=== PATIENT | male | born 1940 | race Caucasian/White ===

== ENCOUNTER 2017-12-04 08:07 | Observation (INO) | payer OTHER ==
[2017-12-04] MEDS ORDERED: BENZONATATE 100 MG CAP PO ONE (09:01)
[2017-12-04] MEDS ORDERED: LEVALBUTEROL 1.25 MG/3 ML NEB ONE (09:02)
[2017-12-04 09:05] LABS: Absolute Lymphocytes (CBC) 0.9 K/uL (0.7-4.9); Absolute Neutrophil 8.6 K/uL (1.8-8.0); Basophils % 0.8 % (0-1.3); Eosinophils % 0.6 % (0-4.4); Hematocrit 45.6 % (39.6-49.0); Lymphocytes % 8.1 % (15.3-44.8); MCH 30.2 pg (27.0-35.0); MCV 87.6 fL (80-100); MPV 9.2 fL (7.6-11.3); Monocytes % 9.7 % (3.3-12.3); RBC Red Blood Cell Count 5.21 M/uL (4.33-5.43)
[2017-12-04 09:08] LABS: Protime INR 1.11
[2017-12-04 09:34] LABS: ALT/SGPT 22 U/L (12-78); AST/SGOT 14 U/L (15-37); Albumin 3.6 g/dL (3.4-5.0); Alkaline Phosphatase 83 U/L (45-117); BUN Blood Urea Nitrogen 25 mg/dL (7-18); Bicarbonate 30 mmol/L (21-32); Bilirubin Direct 0.4 mg/dL (0-0.2); Bilirubin Total 0.9 mg/dL (0.2-1.0); Glucose Level 213 mg/dL (74-106); Magnesium 2.3 mg/dL (1.8-2.4); NT PRO-BNP 215 pg/mL (<450); Potassium 4.5 mmol/L (3.5-5.1); Protein, Total 8.2 g/dL (6.4-8.2); Sodium Level 137 mmol/L (136-145); Troponin (Emerg Dept Use Only) < 0.02 ng/mL (0.0-0.045)
--- NOTE | 2017-12-04 09:57 | RAD REPORT ---
EXAM DESCRIPTION: RAD - Chest Single View - 12/04/2017 9:25 am CLINICAL HISTORY: Chest pain, cough, shortness of breath COMPARISON: May 03 TECHNIQUE: AP portable chest image was obtained 0919 hours . FINDINGS: Lung volumes are low and large body habitus combined to limit the examination. Medial righ t base opacification is present questionable for developing right lung base pneumonia. This could be further evaluated with a PA view with improved inspiratory effort. Heart size and vasculature accentuated by body habitus and shallow inspiration affects. Significant failure or volume overload are doubtful. No measurable pleural effusion and no pneumothorax. No acute bony abnormality seen. No acute aortic findings suspected. IMPRESSION: Medial right base pneumonia versus shallow inspiration artifact. Correlation can be made with exam findings and follow-up PA view with improved inspiratory effort as warranted.
[2017-12-04] MEDS ORDERED: predniSONE 20 MG TAB ONE (10:19)
--- NOTE | 2017-12-04 11:19 | EDPHYS ---
Physician Documentation [facility] Name: Erika Sharif Age: 77 yrs Sex: Male : 1940 Arrival Date: 12/04/2017 Time: 08:10 Bed 16 Private MD: Out, [facility] ED Physician Antione Villegas HPI: 12/04 11:18 This 77 yrs old Male presents to ER via Wheelchair with complaints of kdr Breathing Difficulty. 11:18 The patient has shortness of breath at rest, with light activity. Onset: The kdr symptoms/episode began/occurred gradually, yesterday. Duration: The symptoms are continuous, and are steadily getting worse. The patient's shortness of breath is aggravated by coughing, exertion, light activity, supine position, talking, walking. Associated signs and symptoms: Pertinent positives: chest pain, non-productive cough, Pertinent negatives: dizziness, fever, hemoptysis, loss of consciousness, nausea, numbness in extremities, visual changes. Severity of symptoms: At their worst the symptoms were moderate severe just prior to arrival, in the emergency department the symptoms are unchanged. The patient has experienced similar episodes in the past, multiple times. The patient has not recently seen a physician. Historical: - Allergies: 08:27 Zolpidem; iw - Home Meds: 08:27 allopurinol 100 mg Oral tab 1 tab once daily [Active]; aspirin 81 mg Oral chew 1 tab iw once daily [Active]; atorvastatin 10 mg Oral tab 1 tab once daily [Active]; beclomethasone dipropionate inhalation 2 puffs 2 times per day [Active]; Colcrys 0.6 mg Oral tab 1 tab once daily [Active]; enalapril maleate 10 mg Oral tab 1 tab once daily [Active]; erythromycin 5 mg/gram (0.5 %) Opht oint 0.5 in once daily [Active]; esomeprazole magnesium 20 mg Oral cpDR 1 cap once daily [Active]; fluticasone 50 mcg/actuation nasal spsn 2 sprays once daily [Active]; furosemide 80 mg Oral tab 1 tab 2 times per day [Active]; hydrocodone-acetaminophen 10-325 mg Oral tab 1 tab every 8 hours as needed for pain [Active]; Insulin Glargine 100 unit/mL Sub-Q 50 unit daily [Active]; insulin lispro 00 unit/mL subcutaneous 30 unit daily [Active]; ipratropium-albuterol 0.5 mg-3 mg(2.5 mg base)/3 mL Inhl nebu 1 puff 4 times per day [Active]; ketoconazole 2 % Topical sham 2 times per wk [Active]; Lyrica 75 mg Oral 1 cap 3 times per day [Active]; metoprolol tartrate 50 mg Oral tab 1 tab 2 times per day [Active]; montelukast 10 mg Oral tab 1 tab once daily [Active]; nitroglycerin 0.4 mg SL subl 1 tab every 5 minutes for Angina [Active]; tamsulosin 0.4 mg Oral cp24 1 cap once daily [Active]; - PMHx: 08: COPD; Diabetes - IDDM; Myocardial infarction; neuropathy; pleural effusion; iw - PSHx: 08: Cholecystectomy; back; right shoulder; left arm; Heart stents; iw - Immunization history:: Adult Immunizations up to date. - Social history:: Smoking status: Patient/guardian denies using tobacco, the patient reports quitting approximately 50 years ago. - Ebola Screening: : Patient negative for fever greater than or equal to 101.5 degrees Fahrenheit, and additional compatible Ebola Virus Disease symptoms Patient denies exposure to infectious person Patient denies travel to an Ebola-affected area in the 21 days before illness onset No symptoms or risks identified at this time. ROS: 11:18 Constitutional: Negative for fever, chills, and weight loss, Eyes: Negative for injury, kdr pain, redness, and discharge, ENT: Negative for injury, pain, and discharge, Neck: Negative for injury, pain, and swelling, Abdomen/GI: Negative for abdominal pain, nausea, vomiting, diarrhea, and constipation, Back: Negative for injury and pain, : Negative for injury, bleeding, discharge, and swelling, MS/Extremity: Negative for injury and deformity, Skin: Negative for injury, rash, and discoloration, Neuro: Negative for headache, weakness, numbness, tingling, and seizure activity. Psych: Negative for depression, anxiety, suicide ideation, homicidal ideation, and hallucinations, Allergy/Immunology: Negative for hives, rash, and allergies, Endocrine: Negative for neck swelling, polydipsia, polyuria, polyphagia, and marked weight changes, Hematologic/Lymphatic: Negative for swollen nodes, abnormal bleeding, and unusual bruising. 11:18 Cardiovascular: Positive for chest pain, edema, Negative for orthopnea, palpitations, paroxysmal nocturnal dyspnea. 11:18 Respiratory: Positive for cough, dyspnea on exertion, shortness of breath, wheezing. Exam: 11:18 Constitutional: This is a well developed, well nourished patient who is awake, alert, kdr and in mild to moderate distress. Head/Face: Normocephalic, atraumatic. Eyes: Pupils equal round and reactive to light, extra-ocular motions intact. Lids and lashes normal. Conjunctiva and sclera are non-icteric and not injected. Cornea within normal limits. Periorbital areas with no swelling, redness, or edema. Neck: Trachea midline, no thyromegaly or masses palpated, and no cervical lymphadenopathy. Supple, full range of motion without nuchal rigidity, or vertebral point tenderness. No Meningismus. Chest/axilla: Normal chest wall appearance and motion. Nontender with no deformity. No lesions are appreciated. Abdomen/GI: Soft, non-tender, with normal bowel sounds. Obese but no distension or tympany. No guarding or rebound. Back: No spinal tenderness. No costovertebral tenderness. Full range of motion. Skin: Warm, dry with normal turgor. Normal color with no rashes, no lesions, and no evidence of cellulitis. MS/ Extremity: Pulses equal, no cyanosis. Neurovascular intact. Full, normal range of motion. Neuro: Awake and alert, GCS 15, oriented to person, place, time, and situation. Cranial nerves II-XII grossly intact. Motor strength 5/5 in all extremities. Sensory grossly intact. Cerebellar exam normal. Normal gait. 11:18 Cardiovascular: Rate: tachycardic, Rhythm: regular, Pulses: Vital Signs: 08:27 BP 155 / 96; Pulse 93; Resp 22 S; Temp 98.2(O); Pulse Ox 95% on R/A; Weight 150.59 kg; iw Height 5 ft. 9 in. (175.26 cm); Pain 8/10; 09:00 BP 167 / 88; Pulse 92; Resp 28; Pulse Ox 97% ; bp 09:51 BP 143 / 86; Pulse 104; Resp 22; Pulse Ox 95% on R/A; bp 10:45 BP 137 / 73; Pulse 104; Resp 23; Pulse Ox 95% on R/A; bp 12:00 BP 147 / 53; Pulse 103; Resp 25; Pulse Ox 93% on R/A; bp 08:27 Body Mass Index 49.03 (150.59 kg, 175.26 cm) iw MDM: 11:18 Patient medically screened. kdr 11:26 Data reviewed: vital signs, nurses notes, lab test result(s), radiologic studies. kdr Counseling: I had a detailed discussion with the patient and/or guardian regarding: the historical points, exam findings, and any diagnostic results supporting the discharge/admit diagnosis, lab results, radiology results, the need for further work-up and treatment in the hospital. 12/04 08:37 Order name: Basic Metabolic Panel; Complete Time: 09:59 kdr 12/04 08:37 Order name: CBC with Diff; Complete Time: 09:59 kdr 12/04 08:37 Order name: LFT's; Complete Time: 09:59 kdr 12/04 08:37 Order name: Magnesium; Complete Time: 09:59 kdr 12/04 08:37 Order name: NT PRO-BNP; Complete Time: 09:59 kdr 12/04 08:37 Order name: PT-INR; Complete Time: 09:59 kdr 12/04 08:37 Order name: Troponin (emerg Dept Use Only); Complete Time: 09:59 kdr 12/04 08:37 Order name: XRAY Chest (1 view); Complete Time: 09:59 kdr 12/04 08:37 Order name: EKG; Complete Time: 08:38 kdr 12/04 08:37 Order name: Cardiac monitoring; Complete Time: 08:47 kdr 12/04 08:37 Order name: EKG - Nurse/Tech; Complete Time: 08:47 kdr 12/04 08:37 Order name: IV Saline Lock; Complete Time: 08:47 kdr 12/04 08:37 Order name: Labs collected and sent; Complete Time: 08:47 kdr 12/04 08:37 Order name: O2 Per Protocol; Complete Time: 08:47 kdr 12/04 08:37 Order name: O2 Sat Monitoring; Complete Time: 08:47 kdr 12/04 10:01 Order name: Misc. Order: Document oxygen saturation while off oxygen while minor kdr exertion; Complete Time: 10:25 Administered Medications: 08:50 Drug: Xopenex (3) 1.25 mg Route: Inhalation; bp 08:50 Drug: Tessalon Perle 200 mg Route: PO; bp 09:51 Follow up: Response: Marked relief of symptoms bp 10:11 CANCELLED (Physician Discretion): SOLU-Medrol 125 mg IVP once bp 10:15 Drug: predniSONE 60 mg Route: PO; bp 10:46 Follow up: Response: No adverse reaction bp 11:20 Drug: Rocephin - (cefTRIAXone) 2 grams Route: IVPB; Infused Over: 30 mins; Site: right bp antecubital; 12:45 Follow up: IV Status: Completed infusion; IV Intake: 100ml bp Disposition: 12/04/17 11:18 Hospitalization ordered by Emi Bradshaw for Observation. Preliminary diagnosis is COPD Exacerbation, SOB, Pneumonia, DM, CAD. - Bed requested for Telemetry/MedSurg (observation). - Status is Observation. iw - Condition is Fair. - Problem is an acute exacerbation. - Symptoms have improved. UTI on Admission? No Signatures: Dispatcher [employer] EDWI Althea Duke RN RN dw Antione Villegas MD MD kdr Pam Tiwari RN RN iw Francis Orta RN RN bp Corrections: (The following items were deleted from the chart) 10:11 10:03 SOLU-Medrol 125 mg IVP once ordered. kdr bp 12:33 11:18 Hospitalization Ordered by Emi Bradshaw MD for Observation. Preliminary dw diagnosis is COPD Exacerbation, SOB, Pneumonia, DM, CAD. Bed requested for Telemetry/MedSurg (observation). Status is Observation. Condition is Fair. Problem is an acute exacerbation. Symptoms have improved. UTI on Admission? No. kdr 13:25 12:33 12/04/2017 11:18 Hospitalization Ordered by Emi Bradshaw MD for Observation. iw Preliminary diagnosis is COPD Exacerbation, SOB, Pneumonia, DM, CAD. Bed requested for Telemetry/MedSurg (observation). Status is Observation. Condition is Fair. Problem is an acute exacerbation. Symptoms have improved. UTI on Admission? No. dw
--- NOTE | 2017-12-04 11:19 | ER ---
Nurse's Notes [facility] Name: Erika Sharif Age: 77 yrs Sex: Male : 1940 Arrival Date: 12/04/2017 Time: 08:10 Bed 16 Private MD: Out, of [facility], [facility] Diagnosis: COPD Exacerbation, SOB, Pneumonia, DM, CAD Presentation: 12/04 08:23 Presenting complaint: Patient states: c/o difficulty breathing that started last night, iw hx of COPD, also c/o chest tightness 10/02, headache X 2 weeks, denies fever, +dry cough. Transition of care: patient was not received from another setting of care. Onset of symptoms was December 03, 2017. Risk Assessment: Do you want to hurt yourself or someone else? Patient reports no desire to harm self or others. Initial Sepsis Screen: Does the patient meet any 2 criteria? No. Patient's initial sepsis screen is negative. Does the patient have a suspected source of infection? No. Patient's initial sepsis screen is negative. Care prior to arrival: None. 08:23 Method Of Arrival: Wheelchair iw 08:23 Acuity: PEEWEE 3 iw Triage Assessment: 12:43 General: Appears in no apparent distress. comfortable, obese, Behavior is calm, bp cooperative, appropriate for age. Respiratory: Reports shortness of breath Onset: The symptoms/episode began/occurred 2 DAYS, the patient has moderate shortness of breath. Historical: - Allergies: 08:27 Zolpidem; iw - Home Meds: 08:27 allopurinol 100 mg Oral tab 1 tab once daily [Active]; aspirin 81 mg Oral chew 1 tab iw once daily [Active]; atorvastatin 10 mg Oral tab 1 tab once daily [Active]; beclomethasone dipropionate inhalation 2 puffs 2 times per day [Active]; Colcrys 0.6 mg Oral tab 1 tab once daily [Active]; enalapril maleate 10 mg Oral tab 1 tab once daily [Active]; erythromycin 5 mg/gram (0.5 %) Opht oint 0.5 in once daily [Active]; esomeprazole magnesium 20 mg Oral cpDR 1 cap once daily [Active]; fluticasone 50 mcg/actuation nasal spsn 2 sprays once daily [Active]; furosemide 80 mg Oral tab 1 tab 2 times per day [Active]; hydrocodone-acetaminophen 10-325 mg Oral tab 1 tab every 8 hours as needed for pain [Active]; Insulin Glargine 100 unit/mL Sub-Q 50 unit daily [Active]; insulin lispro 00 unit/mL subcutaneous 30 unit daily [Active]; ipratropium-albuterol 0.5 mg-3 mg(2.5 mg base)/3 mL Inhl nebu 1 puff 4 times per day [Active]; ketoconazole 2 % Topical sham 2 times per wk [Active]; Lyrica 75 mg Oral 1 cap 3 times per day [Active]; metoprolol tartrate 50 mg Oral tab 1 tab 2 times per day [Active]; montelukast 10 mg Oral tab 1 tab once daily [Active]; nitroglycerin 0.4 mg SL subl 1 tab every 5 minutes for Angina [Active]; tamsulosin 0.4 mg Oral cp24 1 cap once daily [Active]; - PMHx: 08:27 COPD; Diabetes - IDDM; Myocardial infarction; neuropathy; pleural effusion; iw - PSHx: 08:27 Cholecystectomy; back; right shoulder; left arm; Heart stents; iw - Immunization history:: Adult Immunizations up to date. - Social history:: Smoking status: Patient/guardian denies using tobacco, the patient reports quitting approximately 50 years ago. - Ebola Screening: : Patient negative for fever greater than or equal to 101.5 degrees Fahrenheit, and additional compatible Ebola Virus Disease symptoms Patient denies exposure to infectious person Patient denies travel to an Ebola-affected area in the 21 days before illness onset No symptoms or risks identified at this time. Screenin:48 Abuse screen: Denies threats or abuse. Denies injuries from another. Nutritional bp screening: No deficits noted. Tuberculosis screening: No symptoms or risk factors identified. Fall Risk No fall in past 12 months (0 pts). Secondary diagnosis (15 points) impaired mobility, IV access (20 points). Ambulatory Aid- Crutches/Cane/Walker (15 pts). Gait- Normal/Bed Rest/Wheelchair (0 pts) Mental Status- Oriented to own ability (0 pts). Total Payne Fall Scale indicates High Risk Score (45 or more points). Fall prevention measures have been instituted. Side Rails Up X 2 Placed Close to Nursing Station Frequent Obs/Assessments Occuring Family Present and informed to notify staff if the need to leave the bedside As available patient and family educated on Fall Prevention Program and Strategies. Assessment: 08:30 General: Appears distressed, comfortable, obese, Behavior is calm, cooperative, bp appropriate for age. Pain: Denies pain. Cardiovascular: Rhythm is sinus rhythm. Respiratory: Airway is patent Respiratory effort is even, labored, Breath sounds with wheezes. 09:52 Reassessment: ALL CURRENT ORDERS COMPLETED, RESULTS PENDING. bp 10:26 Reassessment: ROOM AIR SAT 92% WITH MILD EXERTION. bp Vital Signs: 08:27 BP 155 / 96; Pulse 93; Resp 22 S; Temp 98.2(O); Pulse Ox 95% on R/A; Weight 150.59 kg; iw Height 5 ft. 9 in. (175.26 cm); Pain 8/10; 09:00 BP 167 / 88; Pulse 92; Resp 28; Pulse Ox 97% ; bp 09:51 BP 143 / 86; Pulse 104; Resp 22; Pulse Ox 95% on R/A; bp 10:45 BP 137 / 73; Pulse 104; Resp 23; Pulse Ox 95% on R/A; bp 12:00 BP 147 / 53; Pulse 103; Resp 25; Pulse Ox 93% on R/A; bp 08:27 Body Mass Index 49.03 (150.59 kg, 175.26 cm) iw ED Course: 08:10 Patient arrived in ED. mr 08:10 Out, [facility] is Private Physician. mr 08:15 Francis Orta, RN is Primary Nurse. bp 08:18 Antione Villegas MD is Attending Physician. kdr 08:24 Triage completed. iw 08:27 Arm band placed on. iw 08:44 EKG done, by geotechnicial properties technician. reviewed by Antione Villegas MD. at1 08:48 Inserted saline lock: 20 gauge in right antecubital area, using aseptic technique. bp Blood collected. 08:49 Patient has correct armband on for positive identification. Bed in low position. Call bp light in reach. Side rails up X2. Adult w/ patient. 09:22 X-ray completed. Portable x-ray completed in exam room. Patient tolerated procedure mh1 well. 09:25 XRAY Chest (1 view) In Process Unspecified. EDMS 11:17 Emi Bradshaw MD is Hospitalizing Provider. kdr 12:42 No provider procedures requiring assistance completed. Patient admitted, IV remains in bp place. Administered Medications: 08:50 Drug: Xopenex (3) 1.25 mg Route: Inhalation; bp 08:50 Drug: Tessalon Perle 200 mg Route: PO; bp 09:51 Follow up: Response: Marked relief of symptoms bp 10:11 CANCELLED (Physician Discretion): SOLU-Medrol 125 mg IVP once bp 10:15 Drug: predniSONE 60 mg Route: PO; bp 10:46 Follow up: Response: No adverse reaction bp 11:20 Drug: Rocephin - (cefTRIAXone) 2 grams Route: IVPB; Infused Over: 30 mins; Site: right bp antecubital; 12:45 Follow up: IV Status: Completed infusion; IV Intake: 100ml bp Intake: 12:45 IV: 100ml; Total: 100ml. bp Outcome: 11:18 Decision to Hospitalize by Provider. kdr 12:43 Condition: stable bp 12:43 Instructed on the need for admit. 12:51 Admitted to Med/surg accompanied by matthew, family with patient, via wheelchair, room bp 419, with chart, Report called to MAUREEN MCCLURE 13:25 Patient left the ED. iw Signatures: Dispatcher [employer] EDMS Antione Villegas MD MD [facility] Mackenzie Callaway mr AlexanderSusie 1 Pam Tiwari, RN RN iw Alice Garibay, echocardiography tech EKG Tat1 Francis Orta RN RN bp
[2017-12-04] MEDS ORDERED: NA CHLORIDE 0.9% 100 ML IV ONE (11:27)
[2017-12-04] MEDS ORDERED: CEFTRIAXONE 1000 MG/VIAL ONE (11:27)
[2017-12-04 13:27] VITALS: BMI 49.9
[2017-12-04] MEDS ORDERED: INSULIN -REGULAR HUMAN 50 UNIT/0.5 ML ML SQ SCH (13:30)
[2017-12-04] MEDS: ALBUTEROL 2.5 MG/3 ML NEB SOL NEB SCH ×2 (14:18→19:54)
[2017-12-04] MEDS: IPRATROPIUM BROM 0.5MG/2.5ML NEB SCH ×2 (14:18→19:54)
--- NOTE | 2017-12-04 14:28 | EKG ---
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
--- NOTE | 2017-12-04 15:16 | P.HP ---
Certification for Inpatient Patient admitted to: Observation With expected LOS: <2 Midnights Patient will require the following post-hospital care: None Practitioner: I am a practitioner with admitting privileges, knowledge of patient current condition, hospital course, and medical plan of care. Services: Services provided to patient in accordance with Admission requirements found in Title 42 Section 412.3 of the Code of Federal Regulations Patient History Date of Service: 12/04/17 Primary Care Provider: REY Patrick Reason for admission: SOB History of Present Illness: This is a 77-year-old male with significant past medical history of COPD, CHF, hypertension, type 2 diabetes, obesity, obstructive sleep apnea, hyperlipidemia , CAD, who presented to the ED complaining of having some shortness of breath. Patient stated that his shortness of breath has been going on for a couple of these has been getting progressively worse and thus decided to come to the ER. Patient states that yesterday around 3:00 a.m. he got oral short of breath and was having trouble breathing and catching his breath and thus he decided to come to the ER today to get a further checked out. Patient states that he does use inhalers at home along with home oxygen which usually helps some with the bleeding but this time it did not help him at all. Of note patient also had some productive coughing before now however is dry cough for past couple of days. Patient denies having any fever chills nausea vomiting abdominal pain chest pain or any other associated symptoms at this time. Allergies zolpidem [Zolpidem] Allergy (Verified 05/03/17 20:31) Delusions Home Medications: Allopurinol [Zyloprim*] 1 tab PO DAILY 01/17/15 Aspirin [Aspirin EC 81 MG] 81 mg PO DAILY 01/17/15 Atorvastatin Calcium [Lipitor*] 40 mg PO BEDTIME 01/17/15 Colchicine [Colcrys] 1 tab PO DAILY PRN 01/17/15 Enalapril Maleate [Vasotec] 1 tab PO DAILY 01/17/15 Esomeprazole Magnesium [Nexium] 20 mg PO DAILY 01/17/15 Furosemide [Lasix] 1 tab PO BID 01/17/15 Insulin Glargine,Hum.rec.anlog [Lantus] 50 unit SQ BEDTIME 01/17/15 Insulin Lispro [Humalog Kwikpen U-100] 30 unit SQ AC 01/17/15 Metoprolol Tartrate [Lopressor] 1 tab PO BID 01/17/15 Montelukast Sodium 1 tab PO DAILY 01/17/15 Pregabalin [Lyrica*] 1 cap PO TID 01/17/15 Tamsulosin HCl [Flomax] 1 cap PO DAILY 01/17/15 Beclomethasone Dipropionate [Qvar] 2 puff IH BID 05/04/17 Erythromycin Opth [Erythromycin Eye Ointment*] 1 leatha OPTH DAILY 05/04/17 Fluticasone [Flonase 50MCG Nasal [place]*] 2 puff DOMENICO DAILY 05/04/17 Hydrocodone Bit/Acetaminophen [Hydrocodon-Acetaminophn 10-325] 1 tab PO TID PRN 05/04/17 Ipratropium/Albuterol Sulfate [Iprat-Albut 0.5-3(2.5) mg/3 ml] 1 puff IH QID 02/09 Nitroglycerin 0.4 mg SL SEECOM PRN 05/04/17 - Past Medical/Surgical History Has patient received pneumonia vaccine in the past: Yes Diabetic: Yes -: Gout, skin cancer -: [place] disease, COPD, asthma, High cholesterol. -: HYPERLIPIDEMIA -: CKD - STAGE IV -: SPINAL STENOSIS -: GOUT -: OBSTRUCTIVE SLEEP APNEA -: [place] -: NEUROPATHY -: ASTHMA -: HTN -: CHF -: cardiac Stent x 3 -: Operation lower back -: Left Hand nerve damage -: skin Cancer removal back and neck -: Left arm surgery -: hernia repair -: Cholecystectomy - Family History Father -: Heart disease Notes: [place] Mother -: Heart disease, Hypertension Notes: bypass Brother -: Heart disease Notes: 4X BYPASS - Social History Smoking Status: Former smoker Alcohol use: No CD- Drugs: No Caffeine use: Yes Place of Residence: Home Review of Systems 10-point ROS is otherwise unremarkable Physical Examination - Vital Signs Temperature: 100.3 F Blood Pressure: 144/63 Pulse: 95 Respirations: 20 Pulse Ox (%): 96 - Physical Exam General: Alert, In no apparent distress HEENT: Atraumatic, PERRLA, Mucous membr. moist/pink, EOMI, Sclerae nonicteric Neck: Supple, 2+ carotid pulse no bruit, No LAD, Without JVD or thyroid abnormality Respiratory: Normal air movement, Crackles/rales, Expiratory wheezes, Inspiratory wheezes Cardiovascular: Regular rate/rhythm, Normal S1 S2 Gastrointestinal: Normal bowel sounds, No tenderness Musculoskeletal: No tenderness Integumentary: No rashes Neurological: Normal speech, Normal strength at 5/5 x4 extr, Normal tone Lymphatics: No axilla or inguinal lymphadenopathy - Studies Laboratory Data (last 24 hrs) 12/04/17 08:45: PT 13.1 H, INR 1.11 12/04/17 08:45: WBC 10.6, Hgb 15.7, Hct 45.6, Plt Count 180 12/04/17 08:45: Sodium 137, Potassium 4.5, BUN 25 H, Creatinine 1.80 H, Glucose 213 H, Magnesium 2.3, Total Bilirubin 0.9, AST 14 L, ALT 22, Alkaline Phosphatase 83 Assessment and Plan - Problems (Diagnosis) (1) COPD exacerbation Onset Date: 01/17/15 Current Visit: No Status: Acute Plan: Dyspnea with acute COPD exacerbation possible CHF exacerbation as well -duonebs, steroids, oxygen therapy. Will wean as tolerated. 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 Started on IV Lasix at this time -fluid restriction and diet modification notified as well -echo done in April of 2017 consistent with EF of 79% and left atrial dilation Qualifiers: Heart failure type: diastolic Heart failure chronicity: acute on chronic Qualified Code(s): I50.33 - Acute on chronic diastolic (congestive) heart failure (3) CAD (coronary artery disease) Onset Date: 05/04/17 Current Visit: No Status: Chronic Plan: Stable at this time. Will restart home medication Qualifiers: Coronary Disease-Associated Artery/Lesion type: [place] artery [place] vs. transplanted heart: [place] heart Associated angina: without angina Qualified Code(s): I25.10 - Atherosclerotic heart disease of [place] coronary artery without angina pectoris (4) Chronic kidney disease Onset Date: 08/04/16 Current Visit: No Status: Chronic Plan: Chronic kidney disease with acute injury -will continue to monitor closely -avoid nephrotoxic agent Qualifiers: Chronic kidney disease stage: stage 4 (severe) Qualified Code(s): N18.4 - Chronic kidney disease, stage 4 (severe) (5) Diabetes mellitus Current Visit: No Status: Chronic Plan: Insulin sliding scale Qualifiers: (6) GERD (gastroesophageal reflux disease) Current Visit: No Status: Chronic Plan: Will start on home medication as well Qualifiers: Esophagitis presence: without esophagitis Qualified Code(s): K21.9 - Gastro -esophageal reflux disease without esophagitis (7) Gout Onset Date: 08/04/16 Current Visit: No Status: Chronic Plan: Stable at this time Qualifiers: Gout site: unspecified site Gout etiology: unspecified cause Chronicity: unspecified Qualified Code(s): M10.9 - Gout, unspecified (8) Hyperlipidemia Current Visit: No Status: Chronic Qualifiers: Hyperlipidemia type: pure hypercholesterolemia Qualified Code(s): E78.00 - Pure hypercholesterolemia, unspecified; E78.0 - Pure hypercholesterolemia (9) Hypertension Onset Date: 08/04/16 Current Visit: No Status: Chronic Qualifiers: Hypertension type: essential hypertension (10) Obesity Current Visit: No Status: Chronic Qualifiers: Obesity type: due to excess calories Obesity classification: adult class 3 (BMI >= 40) Serious obesity comorbidity presence: with serious comorbidity Body mass index: BMI 45.0-49.9 Qualified Code(s): E66.01 - Morbid (severe) obesity due to excess calories; Z68.42 - Body mass index (BMI) 45.0-49.9, adult (11) Obstructive sleep apnea Current Visit: No Status: Chronic Plan: CPAP at night. Patient however is noncompliant with CPAP. Discharge Plan: Home Plan to discharge in: 48 Hours - Advance Directives Does patient have a Living Will: No Does patient have a Durable POA for Healthcare: No - Code Status/Comfort Care Code Status Assessed: Yes Critical Care: No
[2017-12-04] MEDS ORDERED: COLCHICINE 0.6 MG TAB PO PRN (15:46)
[2017-12-04] MEDS ORDERED: ENOXAPARIN 40 MG/0.4 ML SQ SCH (17:00)
[2017-12-04] MEDS ORDERED: FUROSEMIDE 20 MG/ 2ML VIAL IV SCH (17:00)
[2017-12-04] MEDS: INSULIN -REGULAR HUMAN 50 UNIT/0.5 ML ML SQ SCH ×2 (17:22→20:57)
[2017-12-04] MEDS: FUROSEMIDE 40 MG/4 ML VIAL IV SCH (17:22)
[2017-12-04] MEDS ORDERED: INFLUENZA VACCINE (for 3y+) 0.5 ML DOSE IMVAC ONE (19:00)
[2017-12-04] MEDS: METOPROLOL TAR 50 MG TAB PO SCH (20:56)
[2017-12-04] MEDS: PREGABALIN 75 MG CAP PO SCH (20:56)
[2017-12-04] MEDS ORDERED: ATORVASTATIN 20 MG TAB PO SCH (21:00)
[2017-12-04 21:39] LABS: Urine Appearance CLEAR; Urine Bilirubin NEGATIVE (NEG); Urine Blood NEGATIVE (NEG); Urine Color YELLOW; Urine Glucose 3+ (NEG); Urine Protein 1+ (NEG); Urine Specific Gravity 1.025 (1.005-1.030); Urine pH 5.5 (5.0-7.0)
[2017-12-04 22:03] LABS: Urine Microscopic Reflex ORDER UMIC
[2017-12-04 22:18] LABS: Urine Bacteria <20 /HPF (NONE SEEN); Urine Culture Reflex Order NOT NEEDED; Urine RBC NONE SEEN /HPF (NONE SEEN)
[2017-12-05] MEDS: IPRATROPIUM BROM 0.5MG/2.5ML NEB SCH ×2 (01:25→08:09)
[2017-12-05] MEDS: ALBUTEROL 2.5 MG/3 ML NEB SOL NEB SCH ×2 (01:25→08:09)
[2017-12-05 04:53] LABS: Absolute Lymphocytes (CBC) 1.2 K/uL (0.7-4.9); Absolute Monocytes 1.3 K/uL (0.1-1.3); Absolute Neutrophil 6.1 K/uL (1.8-8.0); Basophils % 0.6 % (0-1.3); Eosinophils % 0.2 % (0-4.4); Hematocrit 40.6 % (39.6-49.0); Lymphocytes % 13.5 % (15.3-44.8); MCH 29.9 pg (27.0-35.0); MCV 86.8 fL (80-100); MPV 9.3 fL (7.6-11.3); RBC Red Blood Cell Count 4.68 M/uL (4.33-5.43)
[2017-12-05 05:11] LABS: Albumin 3.1 g/dL (3.4-5.0); Bilirubin Total 0.4 mg/dL (0.2-1.0); Phosphorus 3.4 mg/dL (2.5-4.9); Potassium 3.6 mmol/L (3.5-5.1); Protein, Total 7.3 g/dL (6.4-8.2)
[2017-12-05] MEDS ORDERED: POTASSIUM 25 MEQ EFFERV TAB PO ONE (05:12)
[2017-12-05] MEDS ORDERED: PANTOPRAZOLE 40MG TABLET PO SCH (06:30)
[2017-12-05] MEDS: INSULIN -REGULAR HUMAN 50 UNIT/0.5 ML ML SQ SCH ×2 (08:25→12:00)
[2017-12-05] MEDS: FUROSEMIDE 40 MG/4 ML VIAL IV SCH (08:26)
[2017-12-05] MEDS: PREGABALIN 75 MG CAP PO SCH (08:27)
[2017-12-05] MEDS: METOPROLOL TAR 50 MG TAB PO SCH (08:28)
[2017-12-05] MEDS ORDERED: predniSONE 10 MG TAB PO SCH (09:00)
[2017-12-05] MEDS ORDERED: HOME MED 1 EA UNK (Esomeprazole Magnesium [Nexium] 20 MG) PO SCH (09:00)
[2017-12-05] MEDS ORDERED: ALLOPURINOL 100 MG TAB PO SCH (09:00)
[2017-12-05] MEDS ORDERED: ENALAPRIL 10 MG TAB PO SCH (09:00)
[2017-12-05] MEDS ORDERED: MONTELUKAST 10 MG TAB PO SCH (09:00)
[2017-12-05] MEDS ORDERED: TAMSULOSIN 0.4 MG SR CAP PO SCH (09:00)
[2017-12-05] MEDS ORDERED: FLUTICASONE 50MCG NASAL SPRAY NAS SCH (09:00)
[2017-12-05] MEDS ORDERED: DULERA 200/5 (MOMETASONE/FORMOTEROL) INHALER IH SCH (09:59)
--- NOTE | 2017-12-05 10:03 | P.CNS ---
Date of Consult: 12/05/17 Primary Care Provider: [facility] Chief Complaint: SOB History of Present Illness: Patient is 77 years of age has been complaining of progressive chronic dyspnea in addition to coughing lower extremity edema. For prior history of obstructive airways disease is not take any bronchodilators at home was tried on Advair with no relief history of coronary artery disease also has a history of sleep apnea patient severely claustrophobic refused CPAP is feeling a lot better since admission patient is a diabetic as peripheral neuropathy with adrenal insufficiency he does take Lasix at home and has a primary care patient in [place] Allergies zolpidem [Zolpidem] Allergy (Verified 05/03/17 20:31) Delusions Home Medications: Allopurinol [Zyloprim*] 1 tab PO DAILY 01/17/15 Atorvastatin Calcium [Lipitor*] 40 mg PO BEDTIME 01/17/15 Colchicine [Colcrys] 1 tab PO DAILY PRN 01/17/15 Enalapril Maleate [Vasotec] 1 tab PO DAILY 01/17/15 Esomeprazole Magnesium [Nexium] 20 mg PO DAILY 01/17/15 Furosemide [Lasix] 1 tab PO BID 01/17/15 Insulin Glargine,Hum.rec.anlog [Lantus] 50 unit SQ BEDTIME 01/17/15 Insulin Lispro [Humalog Kwikpen U-100] 40 unit SQ AC 01/17/15 Metoprolol Tartrate [Lopressor] 1 tab PO BID 01/17/15 Montelukast Sodium 1 tab PO DAILY 01/17/15 Pregabalin [Lyrica*] 1 cap PO TID 01/17/15 Tamsulosin HCl [Flomax] 1 cap PO DAILY 01/17/15 Erythromycin Opth [Erythromycin Eye Ointment*] 1 leatha OPTH DAILY 05/04/17 Fluticasone [Flonase 50MCG Nasal [place]*] 2 puff DOMENICO DAILY 05/04/17 Hydrocodone Bit/Acetaminophen [Hydrocodon-Acetaminophn 10-325] 1 tab PO TID PRN 05/04/17 Nitroglycerin 0.4 mg SL SEECOM PRN 05/04/17 - Past Medical/Surgical History Diabetic: Yes -: Gout, skin cancer -: [place] disease, COPD, asthma, High cholesterol. -: HYPERLIPIDEMIA -: CKD - STAGE IV -: SPINAL STENOSIS -: GOUT -: OBSTRUCTIVE SLEEP APNEA -: [place] -: NEUROPATHY -: ASTHMA -: HTN -: CHF -: cardiac Stent x 3 -: Operation lower back -: Left Hand nerve damage -: skin Cancer removal back and neck -: Left arm surgery -: hernia repair -: Cholecystectomy - Family History Father Medical History: Heart disease Notes: [place] Mother Medical History: Heart disease, Hypertension Notes: bypass Brother Medical History: Heart disease Notes: 4X BYPASS - Social History Smoking Status: Never smoker Alcohol use: No CD- Drugs: No Caffeine use: Yes Place of Residence: Home Review of Systems General: Weakness Respiratory: Cough, Shortness of Breath Cardiovascular: Edema Physical Examination Temp Pulse Resp BP Pulse Ox 97.9 F 80 20 144/80 H 93 12/05/17 08:00 12/05/17 08:28 12/05/17 08:00 12/05/17 08:28 12/05/17 08:00 General: Alert, Oriented x3 HEENT: Atraumatic Neck: Supple Respiratory: Expiratory wheezes Cardiovascular: Edema (2+ edema) Gastrointestinal: Normal bowel sounds, Soft and benign Musculoskeletal: No clubbing Integumentary: No rashes - Problems (1) COPD exacerbation Onset Date: 01/17/15 Current Visit: No Status: Acute Plan: Patient is 77 years of age admitted with worsening chronic dyspnea cough probably has underlying obstructive airways disease although he has never smoked I suggest a trial of bronchodilators patient tried Advair in the past with no relief he is feeling a lot better does take diuretics at home he has heart failure chronic renal insufficiency no evidence of an infection repeat PA lateral chest x-ray room-air oxygenation is satisfactory Patient can be discharged home on Dulera from the hospital, a short-acting bronchodilator anion the Symbicort or Advair. There is no evidence of active sepsis He does have chronic renal insufficiency sees a primary care doctor cancer doctor in a back doctor and [place] was scheduled to see a doormaker to follow with me in 2 weeks history of sleep apnea refuse CPAP due to claustrophobia
[2017-12-05 12:10] VITALS: O2SAT 93
[2017-12-05 14:07] VITALS: BP 132/62; TEMP 98
[2017-12-05] MEDS ORDERED: FUROSEMIDE 40 MG TABLET PO SCH (17:00)
--- NOTE | 2017-12-05 17:02 | P.DS ---
Admission Date: 12/04/17 Discharge Date: 12/05/17 Primary Care Provider: REY Patrick Disposition: ROUTINE DISCHARGE Reason for Admission: SOB - Problems (1) COPD exacerbation Onset Date: 01/17/15 Status: Acute (2) CHF (congestive heart failure) Status: Acute Qualifiers: Heart failure type: diastolic Heart failure chronicity: acute on chronic Qualified Code(s): I50.33 - Acute on chronic diastolic (congestive) heart failure (3) CAD (coronary artery disease) Onset Date: 05/04/17 Status: Chronic Qualifiers: Coronary Disease-Associated Artery/Lesion type: [place] artery [place] vs. transplanted heart: [place] heart Associated angina: without angina Qualified Code(s): I25.10 - Atherosclerotic heart disease of [place] coronary artery without angina pectoris (4) Chronic kidney disease Onset Date: 08/04/16 Status: Chronic Qualifiers: Chronic kidney disease stage: stage 4 (severe) Qualified Code(s): N18.4 - Chronic kidney disease, stage 4 (severe) (5) Diabetes mellitus Status: Chronic Qualifiers: (6) GERD (gastroesophageal reflux disease) Status: Chronic Qualifiers: Esophagitis presence: without esophagitis Qualified Code(s): K21.9 - Gastro -esophageal reflux disease without esophagitis (7) Gout Onset Date: 08/04/16 Status: Chronic Qualifiers: Gout site: unspecified site Gout etiology: unspecified cause Chronicity: unspecified Qualified Code(s): M10.9 - Gout, unspecified (8) Hyperlipidemia Status: Chronic Qualifiers: Hyperlipidemia type: pure hypercholesterolemia Qualified Code(s): E78.00 - Pure hypercholesterolemia, unspecified; E78.0 - Pure hypercholesterolemia (9) Hypertension Onset Date: 08/04/16 Status: Chronic Qualifiers: Hypertension type: essential hypertension (10) Obesity Status: Chronic Qualifiers: Obesity type: due to excess calories Obesity classification: adult class 3 (BMI >= 40) Serious obesity comorbidity presence: with serious comorbidity Body mass index: BMI 45.0-49.9 Qualified Code(s): E66.01 - Morbid (severe) obesity due to excess calories; Z68.42 - Body mass index (BMI) 45.0-49.9, adult (11) Obstructive sleep apnea Status: Chronic Brief History of Present Illness: This is a 77-year-old male with significant past medical history of COPD, CHF, hypertension, type 2 diabetes, obesity, obstructive sleep apnea, hyperlipidemia , CAD, who presented to the ED complaining of having some shortness of breath. Patient stated that his shortness of breath has been going on for a couple of these has been getting progressively worse and thus decided to come to the ER. Patient states that yesterday around 3:00 a.m. he got oral short of breath and was having trouble breathing and catching his breath and thus he decided to come to the ER today to get a further checked out. Patient states that he does use inhalers at home along with home oxygen which usually helps some with the bleeding but this time it did not help him at all. Of note patient also had some productive coughing before now however is dry cough for past couple of days. Patient denies having any fever chills nausea vomiting abdominal pain chest pain or any other associated symptoms at this time. Hospital Course: Overall during the hospital stay patient remained stable Patient was initially admitted to the hospital for COPD exacerbation. Was started on duo nebs, steroids, oxygen while here in the hospital. Patient had marked improvement in her symptoms and thus was discharged home on long-acting beta agonist along with tapering dose of steroids. Patient was asked to follow up with pulmonology in about 1-2 weeks post discharge. Patient is noncompliant with his medications at home. Patient was educated extensively on medication compliance and diet and exercise to help with his COPD exacerbation. Patient was seen by a pet care attendant here in the hospital as well and was asked to follow up with him outpatient in about 1-2 weeks post discharge. Patient then was discharged home under stable condition Vital Signs/Physical Exam: Temp Pulse Resp BP Pulse Ox 98 F 76 20 132/62 93 12/05/17 12:00 12/05/17 12:00 12/05/17 12:00 12/05/17 12:00 12/05/17 12:00 General: Alert, In no apparent distress HEENT: Atraumatic, PERRLA, EOMI Neck: Supple, JVD not distended Respiratory: Clear to auscultation bilaterally, Normal air movement Cardiovascular: Regular rate/rhythm, Normal S1 S2 Gastrointestinal: Normal bowel sounds, No tenderness Musculoskeletal: No tenderness Integumentary: No rashes Neurological: Normal speech, Normal tone, Normal affect Lymphatics: No axilla or inguinal lymphadenopathy Laboratory Data at Discharge: WBC 8.6 K/uL (4.3-10.9) D 12/05/17 03:59 Hgb 14.0 g/dL (13.6-17.9) 12/05/17 03:59 Hct 40.6 % (39.6-49.0) 12/05/17 03:59 Plt Count 173 K/uL (152-406) 12/05/17 03:59 PT 13.1 SECONDS (9.5-12.5) H 12/04/17 08:45 INR 1.11 12/04/17 08:45 Sodium 138 mmol/L (136-145) 12/05/17 03:59 Potassium 3.6 mmol/L (3.5-5.1) 12/05/17 03:59 BUN 30 mg/dL (7-18) H 12/05/17 03:59 Creatinine 2.00 mg/dL (0.55-1.3) H 12/05/17 03:59 Glucose 302 mg/dL (74-106) H 12/05/17 03:59 Phosphorus 3.4 mg/dL (2.5-4.9) 12/05/17 03:59 Magnesium 2.3 mg/dL (1.8-2.4) 12/04/17 08:45 Total Bilirubin 0.4 mg/dL (0.2-1.0) 12/05/17 03:59 AST 10 U/L (15-37) L 12/05/17 03:59 ALT 18 U/L (12-78) 12/05/17 03:59 Alkaline Phosphatase 71 U/L (45-117) 12/05/17 03:59 Home Medications: Allopurinol [Zyloprim*] 1 tab PO DAILY 01/17/15 Atorvastatin Calcium [Lipitor*] 40 mg PO BEDTIME 01/17/15 Colchicine [Colcrys] 1 tab PO DAILY PRN 01/17/15 Enalapril Maleate [Vasotec] 1 tab PO DAILY 01/17/15 Esomeprazole Magnesium [Nexium] 20 mg PO DAILY 01/17/15 Furosemide [Lasix] 1 tab PO BID 01/17/15 Insulin Glargine,Hum.rec.anlog [Lantus] 50 unit SQ BEDTIME 01/17/15 Insulin Lispro [Humalog Kwikpen U-100] 40 unit SQ AC 01/17/15 Metoprolol Tartrate [Lopressor] 1 tab PO BID 01/17/15 Montelukast Sodium 1 tab PO DAILY 01/17/15 Pregabalin [Lyrica*] 1 cap PO TID 01/17/15 Tamsulosin HCl [Flomax] 1 cap PO DAILY 01/17/15 Erythromycin Opth [Erythromycin Eye Ointment*] 1 leatha OPTH DAILY 05/04/17 Fluticasone [Flonase 50MCG Nasal [place]*] 2 puff DOMENICO DAILY 05/04/17 Hydrocodone Bit/Acetaminophen [Hydrocodon-Acetaminophn 10325] 1 tab PO TID PRN 05/04/17 Nitroglycerin 0.4 mg SL SEECOM PRN 05/04/17 Budesonide/Formoterol Fumarate [Symbicort 160-4.5 Mcg Inhaler] 2 puff IH DAILY # 1 hfa.aer.ad 12/05/17 New Medications: Budesonide/Formoterol Fumarate [Symbicort 160-4.5 Mcg Inhaler] 2 puff IH DAILY # 1 hfa.aer.ad
== END 2017-12-05 13:14 | disposition home or self-care (01) ==
LOC: ER 08:07 → ERHOLD 11:41 → 4TH 12:54
PROVIDERS: ADMIT Family Medicine; ATTEND Family Medicine
DX: J44.1 Chronic obstructive pulmonary disease with (acute) exacerbation (principal); I13.0 Hypertensive heart and chronic kidney disease with heart failure and stage 1 through stage 4 chronic kidney disease, or unspecified chronic kidney disease; E11.22 Type 2 diabetes mellitus with diabetic chronic kidney disease; N18.4 Chronic kidney disease, stage 4 (severe); I50.33 Acute on chronic diastolic (congestive) heart failure; K21.9 Gastro-esophageal reflux disease without esophagitis; M1A.9XX0 Chronic gout, unspecified, without tophus (tophi); E78.5 Hyperlipidemia, unspecified; E66.9 Obesity, unspecified; Z68.42 Body mass index [BMI] 45.0-49.9, adult; G47.33 Obstructive sleep apnea (adult) (pediatric); Z91.14 Patient's other noncompliance with medication regimen; Z23 Encounter for immunization; I25.10 Atherosclerotic heart disease of native coronary artery without angina pectoris; Z95.5 Presence of coronary angioplasty implant and graft; I25.2 Old myocardial infarction
CPT/HCPCS: 36415; 71045; 80048; 80053; 80076; 82962 ×6; 83735; 83880; 84100; 84484; 85025 ×2; 85610; 93005; 94760 ×3; 96365; 99285; G0008; G0378 ×2; J1650; Q2035; 81003; 81015; J7512; J7606

== ENCOUNTER 2020-08-30 16:27 | Emergency (ER) | payer OTHER ==
--- OUTSIDE RECORDS SUMMARY | 2020-08-30 16:31 | XMS REPORT | Continuity of Care Document ---
:1940 Author Organization [facility] t Address [address] [place] [place] [address] Care Team Providers Name Role Phone Monique Dowling MD Attending Clinician Shira HERNANDEZ Attending Clinician Problems This patient has no known problems. Allergies, Adverse Reactions, Alerts This patient has no known allergies or adverse reactions. Medications This patient has no known medications. Procedures This patient has no known procedures. Encounters Start End Encounter Admission Attending Care Care Encounter Source Date/Time Date/Time Type Type Clinicians Facility Department ID 2020-06-16 2020-06-16 [facility] [id number] 00:00:00 00:00:00 Ronny ROD [id number] [facility] [id number] [place] [id number] 2020-06-13 2020-06-13 Refill [place], [facility] [id number] 00:00:00 00:00:00 Ronny CHERRY [id number] [facility] [id number] 2020-06-12 2020-06-12 Refill [place], [facility] [id number] 00:00:00 00:00:00 Ronny CHERRY [id number] [facility] [id number] 2020-06-03 2020-06-03 Refill [facility] [id number] 00:00:00 00:00:00 Ronny Amaya [facility] [id number] [facility] [id number] 2020-05-11 2020-05-11 Refill [facility], [facility] [id number] 00:00:00 00:00:00 Ronny M PRIMARY [id number] [facility] [id number] [facility] [id number] 2020-04-10 2020-04-10 Refill [facility] [id number] 00:00:00 00:00:00 Ronny Amaya PRIMARY [id number] CARE [id number] [facility] [id number] 2020-03-28 2020-03-28 Refill [facility] [id number] 00:00:00 00:00:00 Ronny Amaya PRIMARY [id number] CARE [id number] [facility] [id number] 2020-03-27 2020-03-27 Refill [facility] [id number] 00:00:00 00:00:00 Ronny M PRIMARY [id number] CARE [id number] [facility] [id number] 2020-03-25 2020-03-25 Refill [facility] [id number] 00:00:00 00:00:00 Avelino Pedraza [id number] [place] [id number] [place] [id number] [facility] [address] Results This patient has no known results.
[2020-08-30 17:18] LABS: Absolute Lymphocytes (CBC) 1.4 K/uL (0.7-4.9); Basophils % 1.3 % (0-1.3); Hematocrit 45.8 % (39.6-49.0); Lymphocytes % 19.6 % (15.3-44.8); MPV 9.1 fL (7.6-11.3); RBC Red Blood Cell Count 5.24 M/uL (4.33-5.43)
[2020-08-30] MEDS ORDERED: NA CHLORIDE 0.9% 1,000 ML ONE (17:27)
[2020-08-30 17:33] LABS: Albumin 3.4 g/dL (3.4-5.0); Bilirubin Direct 0.1 mg/dL (0-0.2); Bilirubin Total 0.6 mg/dL (0.2-1.0); Protein, Total 7.4 g/dL (6.4-8.2)
[2020-08-30] MEDS ORDERED: ONDANSETRON 4 MG/2 ML VIAL ONE (18:20)
[2020-08-30] MEDS ORDERED: FENTANYL CITR 100 MCG/2 ML ONE (18:20)
--- NOTE | 2020-08-30 18:33 | RAD REPORT ---
EXAM DESCRIPTION: CTAbdomen Pelvis W Contrast - 08/30/2020 6:18 pm CLINICAL HISTORY: Abdominal pain. ABD PAIN COMPARISON: <Comparisons> TECHNIQUE: Biphasic CT imaging of the abdomen and pelvis was performed with 100 ml non-ionic IV cont rast. All CT scans are performed using dose optimization technique as appropriate and may include automated exposure control or mA/KV adjustment according to patient size. FINDINGS: The lung bases are clear.Cholecystectomy clips. The liver demonstrates diffuse fatty liver. The spleen, pancreas, adrenal glands and right kidney are within normal limits. Marked atrophy of the left kidney. No bowel obstruction, free air, free fluid or abscess. Mild sigmoid diverticulosis without diverticul itis. The appendix is normal. Small fat containing umbilical hernia. No evidence of significant lymph adenopathy. Moderate thoracic and lumbar degenerative changes. IMPRESSION: No acute intra-abdominal or pelvic finding.
--- NOTE | 2020-08-30 19:14 | ER ---
Nurse's Notes [facility] Name: Erika Sharif Age: 80 yrs Sex: Male : 1940 Arrival Date: 08/30/2020 Time: 16:33 Bed 19 [facility] MD: Diagnosis: Presentation: 08/30 16:40 Chief complaint: Patient states: diarrhea x 3 months, diffuse abd pain and nausea. Pt sv has been taking Imodium with no relief. Coronavirus screen: Client denies travel out of the [place] in the last 14 days. At this time, the client does not indicate any symptoms associated with coronavirus-19. Ebola Screen: No symptoms or risks identified at this time. Initial Sepsis Screen: Does the patient meet any 2 criteria? RR > 20 per min. HR > 90 bpm. Yes Does the patient have a suspected source of infection? Yes: Acute abdominal pain. Risk Assessment: Do you want to hurt yourself or someone else? Patient reports no desire to harm self or others. Onset of symptoms was June 2020. 16:40 Method Of Arrival: Wheelchair sv 16:40 Acuity: PEEWEE 2 sv Historical: - Allergies: 16:42 zolpidem; sv - PMHx: 16:42 Diabetes - IDDM; COPD; neuropathy; Myocardial infarction; pleural effusion; kidney sv failure; CHF; - PSHx: 16:42 Cholecystectomy; back; arm; sv - Immunization history:: Client reports receiving the 2nd dose of the Covid vaccine, Client reports receiving the 1st dose of the Covid vaccine. - Social history:: Smoking status: Patient denies any tobacco usage or history of. Patient/guardian denies using alcohol. Screenin:11 Abuse screen: Denies threats or abuse. Nutritional screening: No deficits noted. jd3 Tuberculosis screening: No symptoms or risk factors identified. Fall Risk Ambulatory Aid- None/Bed Rest/Nurse Assist (0 pts). Gait- Normal/Bed Rest/Wheelchair (0 pts) Mental Status- Oriented to own ability (0 pts). Total Payne Fall Scale indicates No Risk (0-24 pts). Assessment: 16:43 Reassessment: Code Sepsis called. sv 17:09 General: Appears in no apparent distress. comfortable, Behavior is calm, cooperative, jd3 appropriate for age. Pain: Complains of pain in abdomen Quality of pain is described as aching, tender. Neuro: Level of Consciousness is awake, alert, obeys commands, Oriented to person, place, time, situation. Cardiovascular: Denies chest pain, Capillary refill < 3 seconds Patient's skin is warm and dry. Respiratory: Reports shortness of breath Airway is patent Respiratory effort is even, unlabored, Respiratory pattern is regular, symmetrical. GI: Abdomen is round distended, Abd is soft and non tender X 4 quads. Reports lower abdominal pain, upper abdominal pain, diarrhea. : No signs and/or symptoms were reported regarding the genitourinary system. EENT: No signs and/or symptoms were reported regarding the EENT system. Derm: Skin is intact, Skin is dry, Skin is normal, Skin temperature is warm Wound noted right leg and left leg Wound is multiple abrasions to DAMIAN lower legs. pt reports having cats that claw his legs up when climbing to his lap to sit. Musculoskeletal: No signs and/or symptoms reported regarding the musculoskeletal system. 18:31 Reassessment: Patient appears in no apparent distress at this time. No changes from jd3 previously documented assessment. Patient and/or family updated on plan of care and expected duration. Pain level reassessed. Patient is alert, oriented x 3, equal unlabored respirations, skin warm/dry/pink. 19:15 Reassessment: Patient and/or family updated on plan of care and expected duration. Pain ad5 level reassessed. Patient is alert, oriented x 3, equal unlabored respirations, skin warm/dry/pink. Received care of pt at this time. Pt reports continued abd cramping, denies new or worsening s/s. Resting comfortably in wheelchair in room, S.O. at bedside. Resp even/unlabored. NAD noted, will continue to monitor. 20:00 Reassessment: Admitting provider at bedside speaking with pt and family, ad5 questions/concerns addressed. NAD noted, will continue to monitor. 20:23 Reassessment: Pt reports he is not going to stay if he does not get a room upstairs. Pt ea and family state "we just want the AMA papers so we can go". Pt left ED via wheelchair pt tolerating well. Vital Signs: 16:40 BP 106 / 90; Pulse 106; Resp 24; Temp 97.3; Pulse Ox 98% ; Weight 149.69 kg; Height 5 sv ft. 9 in. (175.26 cm); Pain 9/10; 18:31 BP 129 / 72; Pulse 88; Resp 17 S; Pulse Ox 97% on R/A; jd3 16:40 Body Mass Index 48.73 (149.69 kg, 175.26 cm) sv ED Course: 16:33 Patient arrived in ED. mr 16:36 Norma Starr FNP-C is [facility]. kb 16:36 Saturnino Thompson MD is Attending Physician. kb 16:38 Jose Roberto Green RN is Primary Nurse. jd3 16:42 Triage completed. sv 16:43 Arm band placed on. sv 17:03 Inserted saline lock: 18 gauge in right antecubital area, using aseptic technique. jd3 Blood collected. 17:12 Patient has correct armband on for positive identification. Bed in low position. Call jd3 light in reach. Side rails up X 1. Adult w/ patient. Pulse ox on. NIBP on. 18:19 CT Abd/Pelvis - IV Contrast Only In Process Unspecified. EDMS 19:12 Darwin Landon DO is Hospitalizing Provider. kb 20:24 IV discontinued, intact, bleeding controlled, No redness/swelling at site. Pressure ea dressing applied. Administered Medications: 17:09 Drug: NS 0.9% 1000 ml Route: IV; Rate: 1000 ml; Site: right antecubital; jd3 20:12 Follow up: IV Status: Completed infusion; IV Intake: 1000ml ad5 18:02 Drug: fentaNYL (PF) 25 mcg Route: IVP; Site: right antecubital; jd3 20:11 Follow up: Response: No adverse reaction; RASS: Alert and Calm (0) ad5 18:03 Drug: Zofran (Ondansetron) 4 mg Route: IVP; Site: right antecubital; jd3 20:11 Follow up: Response: No adverse reaction ad5 Intake: 20:12 IV: 1000ml; Total: 1000ml. ad5 Outcome: 19:13 Decision to Hospitalize by Provider. kb 20:25 AMA AMA form signed ea 20:25 Condition: stable 20:27 Patient left the ED. ea Signatures: Dispatcher [employer] EDMS Norma Starr FNP-C FNP-Ckb Verde, Stephanie, RN RN aneesh Callaway, Mackenzie mr Didi, Rosa Isela, RN RN ike Green, Jose Roberto RN RN daphnie Saab, Seng ad5
--- NOTE | 2020-08-30 19:14 | EDPHYS ---
Physician Documentation [facility] Name: Erika Sharif Age: 80 yrs Sex: Male : 1940 Arrival Date: 08/30/2020 Time: 16:33 Bed 19 Private MD: ED Physician Saturnino Thompson HPI: 08/30 20:23 This 80 yrs old Male presents to ER via Wheelchair with complaints of kb Abdominal Pain, Diarrhea, Nausea. 20:23 The patient presents with abdominal pain that is diffuse. Onset: The symptoms/episode kb began/occurred 3 month(s) ago. The symptoms do not radiate. Associated signs and symptoms: Pertinent positives: diarrhea, nausea. The symptoms are described as constant. Modifying factors: The symptoms are alleviated by nothing, the symptoms are aggravated by nothing. Severity of pain: At its worst the pain was moderate in the emergency department the pain is unchanged. The patient has not experienced similar symptoms in the past. The patient has not recently seen a physician. Pt reports abd pain, nausea and diarrhea for 3 months. . Historical: - Allergies: 16:42 zolpidem; sv - PMHx: 16:42 Diabetes - IDDM; COPD; neuropathy; Myocardial infarction; pleural effusion; kidney sv failure; CHF; - PSHx: 16:42 Cholecystectomy; back; arm; sv - Immunization history:: Client reports receiving the 2nd dose of the Covid vaccine, Client reports receiving the 1st dose of the Covid vaccine. - Social history:: Smoking status: Patient denies any tobacco usage or history of. Patient/guardian denies using alcohol. ROS: 20:25 Constitutional: Negative for fever, chills, and weight loss. kb 20:25 Abdomen/GI: Positive for abdominal pain, nausea, diarrhea. 20:25 All other systems are negative. Exam: 20:25 Constitutional: This is a well developed, well nourished patient who is awake, alert, kb and in no acute distress. Head/Face: Normocephalic, atraumatic. ENT: Moist Mucous membranes Cardiovascular: Regular rate and rhythm with a normal S1 and S2. No gallops, murmurs, or rubs. No pulse deficits. Respiratory: Respirations even and unlabored. No increased work of breathing, no retractions or nasal flaring. MS/ Extremity: Pulses equal, no cyanosis. Neurovascular intact. Full, normal range of motion. Neuro: Awake and alert, GCS 15, oriented to person, place, time, and situation. Moves all extremities. Normal gait. Psych: Awake, alert, with orientation to person, place and time. Behavior, mood, and affect are within normal limits. 20:25 Abdomen/GI: Inspection: abdomen appears normal, Bowel sounds: normal, in all quadrants, Palpation: soft, in all quadrants, mild abdominal tenderness, in the left upper quadrant. 20:25 Skin: injury, abrasion(s), small abrasion noted, moderate sized abrasion noted, of the right leg and left leg. Vital Signs: 16:40 BP 106 / 90; Pulse 106; Resp 24; Temp 97.3; Pulse Ox 98% ; Weight 149.69 kg; Height 5 sv ft. 9 in. (175.26 cm); Pain 9/10; 18:31 BP 129 / 72; Pulse 88; Resp 17 S; Pulse Ox 97% on R/A; jd3 16:40 Body Mass Index 48.73 (149.69 kg, 175.26 cm) sv MDM: 16:36 Patient medically screened. kb 19:10 Data reviewed: vital signs, nurses notes. Data interpreted: Pulse oximetry: on room air kb is 97 %. Interpretation: normal. 20:10 Counseling: I had a detailed discussion with the patient and/or guardian regarding: the kb historical points, exam findings, and any diagnostic results supporting the discharge/admit diagnosis, lab results, radiology results, the need for further work-up and treatment in the hospital. 08/30 16:36 Order name: Basic Metabolic Panel; Complete Time: 17:34 kb 08/30 16:36 Order name: CBC with Diff; Complete Time: 17:51 kb 08/30 16:36 Order name: Hepatic Function; Complete Time: 17:34 kb 08/30 16:36 Order name: Lipase; Complete Time: 17:34 kb 08/30 16:44 Order name: Blood Culture Adult (2) kb 08/30 16:44 Order name: Lactate; Complete Time: 17:51 kb 08/30 16:36 Order name: CT Abd/Pelvis - IV Contrast Only; Complete Time: 18:42 kb 08/30 16:44 Order name: Procalcitonin; Complete Time: 18:30 kb 08/30 18:57 Order name: Stool Culture kb 08/30 18:57 Order name: C.difficile kb 08/30 16:36 Order name: IV Saline Lock; Complete Time: 17:03 kb 08/30 16:36 Order name: Labs collected and sent; Complete Time: 17:03 kb Administered Medications: 17:09 Drug: NS 0.9% 1000 ml Route: IV; Rate: 1000 ml; Site: right antecubital; jd3 20:12 Follow up: IV Status: Completed infusion; IV Intake: 1000ml ad5 18:02 Drug: fentaNYL (PF) 25 mcg Route: IVP; Site: right antecubital; jd3 20:11 Follow up: Response: No adverse reaction; RASS: Alert and Calm (0) ad5 18:03 Drug: Zofran (Ondansetron) 4 mg Route: IVP; Site: right antecubital; jd3 20:11 Follow up: Response: No adverse reaction ad5 Disposition Summary: 08/30/20 20:27 Left Against Medical Advice Location: Home(08/30/20 20:27) ea Condition: Stable(08/30/20 20:27) ea Addendum: 09/03/2020 07:29 Co-signature as Attending Physician, Saturnino Thompson MD. r n Signatures: Dispatcher [employer] EDNorma Rollins, JOSEFINA PUBLIC SPEAKING TEACHER-Karime Alicia, RN Saturnino Adamson MD MD rn Roszak, Josh, PA PA jr8 Rosa Isela Tolbert RN RN ea Davies, Jonathon, RN RN jd3 Davidson, Andrea ad5 Corrections: (The following items were deleted from the chart) 08/30 19:23 19:00 CORONAVIRUS+[email or web address] ordered. EDMS EDMS 20:26 19:13 Observation kb kb 20:26 19:13 Darwin Landon kb kb 20:26 19:13 Telemetry/MedSurg (observation) kb kb : 19:13 Stable kb kb :26 19:13 new kb kb 20: 19:13 are unchanged kb kb 20:26 19:13 Standard kb kb 20:26 19:13 kb kb 20:26 19:13 Diarrhea, unspecified kb kb 20:26 19:13 Abdominal pain, unspecified kb kb 20:26 19:13 Abrasion of lower leg - bilateral kb kb
[2020-08-30 20:42] VITALS: TEMP 97.3
[2020-08-30 20:45] VITALS: BP 129/72; O2SAT 97
== END 2020-08-30 20:27 | disposition left against medical advice (07) ==
LOC: ER 16:27 → UNDOADMOB 19:55 → ERHOLD 19:55 → OBSVTOIN 08-31 12:31 → INTOOBSV 08-31 12:31 → UNDODISIN 08-31 17:00
DX: R19.7 Diarrhea, unspecified (principal); S80.812A Abrasion, left lower leg, initial encounter; S80.811A Abrasion, right lower leg, initial encounter; E11.22 Type 2 diabetes mellitus with diabetic chronic kidney disease; I50.9 Heart failure, unspecified; I25.2 Old myocardial infarction; Z88.8 Allergy status to other drugs, medicaments and biological substances
CPT/HCPCS: 96361; 87040 ×2; 85025; 80048; 36415; 80076; 83605; 83690; 84145; 74177; 96375; 96374; 99284; Q9967; J3010; J7030; J2405; G0378

== ENCOUNTER 2021-02-04 09:13 | Inpatient (IN) | payer OTHER ==
--- OUTSIDE RECORDS SUMMARY | 2021-02-04 09:17 | XMS REPORT | Continuity of Care Document ---
:1940 Author Organization [facility] t Address [address] [place] [place] [address] Care Team Providers Name Role Phone Monique Mustafa MD Primary Care Physician Monique MUSTAFA Attending Clinician Unavailable Monique Mustafa MD Attending Clinician Monique Hector MD Attending Clinician ROSHAN KLarry Attending Clinician Unavailable DARSHANA Attending Clinician Unavailable LAYO Attending Clinician Unavailable SHIRA Attending Clinician Unavailable KELSI Attending Clinician Unavailable Cory FLEMING L Attending Clinician Julian ALICEA Attending Clinician Unavailable CALLIE Attending Clinician Unavailable REGGIE Attending Clinician Unavailable Monique ROMERO Attending Clinician Unavailable Shira HERNANDEZ Attending Clinician ALICE VOGEL Attending Clinician Unavailable Monique HECTOR Attending Clinician Unavailable BEBA Attending Clinician Unavailable PETR Attending Clinician Unavailable BEBA Admitting Clinician Unavailable Payers Payer Name Policy Type Policy Number Effective Date Expiration Date S antonio MEDICARE PART A [id number] 1987 \\T\\ B 00:00:00 [employer] GOLD PLS [id number] 2019 HMO 00:00:00 Problems Condition Condition Condition Status Onset Resolution Last Treating Co mments Source Name Details Category Date Date Treatment Clinician Date Troponin I Troponin I Disease Active 2019- U nivers above above 4-04 [place] 00 [facility] COPD COPD Disease Active 2019- Univers exacerbati exacerbati 4-04 it y of on on 00:00: [place] [facility] Coronary Coronary Disease Active Unive rs artery artery 4-04 ity of disease disease 00:00: [place] involving involving 00 [facility] coronary coronary artery of artery of [place] [facility] heart heart without without angina angina pectoris pectoris Stage 3 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 4-04 ity of kidney kidney 00:00: [place] disease disease 00 Medical Branch Dyspnea Dyspnea Disease Active Univers 4-03 ity of 00:00: [place] [facility] Chronic Chronic Disease Active Univers diastolic diastolic 8-14 ity of congestive congestive 00:[place] heart heart 00 Medical failure failure Branch Herniated Herniated Disease Active Uni vers disc disc 3-10 ity of 00:: [place] [facility] 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 00:00[place] without s without 00 [facility] myelopathy myelopathy Br anch Radicular Radicular Disease Active Uni vers pain of pain of 5-19 ity of lower lower 00:00: [place] extremity extremity 00 [facility] Branch Chronic Chronic Disease Active Univers pain pain 5-19 ity of disorder disorder 00:00: [place] [facility] Neuropathy Neuropathy Disease Active U nivers due to due to 5-19 ity of secondary secondary 00:00[place] diabetes diabetes 00 Medica l Branch Physical Physical Disease Active Unive rs deconditio deconditio 5-19 it y of dayami dayami 00:00: [place] [facility] Chronic Chronic Disease Active Univers anticoagul anticoagul 5-19 it y of ation ation 00:00: [place] 00 Medical Branch Facet Facet Disease Active Univers arthritis arthritis 5-19 ity of of of 00:00: [place] lumbosacra lumbosacra 00 Me dical l region l region Branch Spinal Spinal Disease Active Univers stenosis, stenosis, 5-19 ity of lumbar lumbar 00:00: [place] region, region, 00 Medical without without Branch neurogenic neurogenic claudicati claudicati on on Enthesopat Enthesopat Disease Active U nivers hy, spinal hy, spinal 5-19 it y of 00:00: [place] 00 Medical Branch Asthma Asthma Disease Active Univers 5-10 ity of 00:00: [place] 00 Medical Branch Congestive Congestive Disease Active 2011-02 Overview : Univers heart heart 2-19 Formattin ity of failure failure 00:00: g of this 00 note Medical might be Branch different from the original. ICD10 Diagnosis Term Sales Floor Team Leader Utility Gout Gout Disease Active 2011-02 Univers 0-19 ity of 00:00: [place] 00 Medical Branch Backache Backache Disease Active Overview: Un jb 4-20 Formattin ity of 00:00: g of this 00 note Medical might be Branch different from the original. 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 ICD10 Diagnosis Term Sales Floor Team Leader Utility Chest pain Chest pain Disease Active Overview : Univers 4-30 Formattin ity of 00:00: g of this [place] 00 note Medical might be Branch different from the original. ICD10 Diagnosis Term Sales Floor Team Leader Utility HLD HLD Disease Active Overview: Univer s (hyperlipi (hyperlipi 4-29 Formattin ity of demia) demia) 00:00: g of this [place] 00 note Medical might be Branch different from the original. ICD10 Diagnosis Term Sales Floor Team Leader Utility Chronic Chronic Disease Active Univers kidney kidney 4-29 ity of disease, disease, 00:00: [place] stage II stage II 00 Medica l (mild) (mild) Branch Coronary Coronary Disease Active Unive rs atheroscle atheroscle 4-29 it y of rosis of rosis of 00:00: [place] [facility] 00 Medical coronary coronary Branch artery artery Spinal Spinal Disease Active Univers stenosis stenosis 4-29 ity of of lumbar of lumbar 00:00: [place] region region 00 Medical without without Branch neurogenic neurogenic claudicati claudicati on on Skin Skin Disease Active Univers cancer cancer ity of [facility] 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 [facility] Allergies, Adverse Reactions, Alerts Allergy Allergy Status Severity Reaction(s) Onset Inactive Treating Comm ents Source Name Type Date Date Clinician ZOLPIDEM DRUG Active NAUSEA ONLY Uni vers INGREDI 05-31 ity of 00:00: [place] 00 Medical Branch Zolpidem Propensi Active Nausea Only U nivers ty to 08 ity of adverse 00:00: [place] reaction 00 Medical s to Branch drug Social History Social Habit Start Date Stop Date Quantity Comments Source History of Cigarette Smoker Universi ty of tobacco use [facility] Exposure to Not sure University of SARS-CoV-2 [place] Medical (event) Branch Alcohol intake 2020-11-22 2020-11-22 Current University of 00:00:00 00:00:00 non-drinker of [facility] alcohol (finding) [place] Tobacco Comment 2017-10-06 2017-10-06 quit 50 years ago Un iversity of 00:00:00 00:00:00 [facility] Sex Ass[birth year] At [birth year] Universit y of 00:00:00 00:00:00 [facility] Smoking Status Start Date Stop Date Source Former smoker 2020-10-01 00:00:00 2020-10-01 00:00:00 Universi ty of [facility] Medications Ordered Filled Start Stop Current Ordering Indication Dosage Frequency Signature Comments Components Source Medication Medication Date Date Medication? Clinician (SIG) Name Name NOVOLOG 2020-02 Yes INJECT Univers FLEXPEN 2-10 SUBCUTANEO ity of U-100 00:00: US 40 [place] INSULIN 100 00 UNITS Medical unit/mL (3 THREE Branch mL) TIMES injection DAILY BEFORE A MEAL insulin 2020-02 Yes [id number] INJECT 40 Univers lispro 2-08 UNITES ity of (HUMALOG 00:00: SUBCUTANEO [place] KWIKPEN 00 US THREE Medical INSULIN) TIMES Branch 100 unit/mL DAILY pen BEFORE A injector MEAL insulin 2020-02 Yes [id number] INJECT 40 Univers lispro 2-08 UNITES ity of (HUMALOG 00:00: SUBCUTANEO [place] KWIKPEN 00 US THREE Medical INSULIN) TIMES Branch 100 unit/mL DAILY pen BEFORE A injector MEAL Insulin 2020-02 Yes [id number] INJECT 50 Univers Glargine 2-08 UNITS ity of (LANTUS 00:00: UNDER THE [place] SOLOSTAR 00 SKIN EVERY Medic al U-100 NIGHT AT Branch INSULIN) BEDTIME. 100 unit/mL (3 mL) injection insulin 2020-02 Yes [id number] INJECT 40 Univers lispro 2-08 UNITES ity of (HUMALOG 00:00: SUBCUTANEO [place] KWIKPEN 00 US THREE Medical INSULIN) TIMES Branch 100 unit/mL DAILY pen BEFORE A injector MEAL Insulin 2020-02 Yes [id number] INJECT 50 Univers Glargine 2-08 UNITS ity of (LANTUS 00:00: UNDER THE [place] SOLOSTAR 00 SKIN EVERY Medic al U-100 NIGHT AT Branch INSULIN) BEDTIME. 100 unit/mL (3 mL) injection Lancing Yes [id number] Use as Uni vers Device with 9 directed. ity of Lancets 00:00: June [place] (ONE TOUCH 00 substitute Med ical DELICA) Kit brand Branch preferred by insurance Blood-Gluco Yes [id number] Use as Univers se Meter 929 directed. ity of (ONETOUCH 00:00: June [place] VERIO FLEX 00 substitute Med ical START) Kit brand Branch preferred by insurance blood sugar Yes [id number] Test 4x Univers diagnostic 929 daily for ity of (ONETOUCH 00:00: diagnosis [place] as VERIO TEST 00 code Medical STRIPS) E11.9. June Branch strip substitute brand preferred by insurance Lancing Yes [id number] Use as Uni vers Device with 9-29 directed. ity of Lancets 00:00: June [place] (ONE TOUCH 00 substitute Med ical DELICA) Kit brand Branch preferred by insurance Blood-Gluco Yes [id number] Use as Univers se Meter 929 directed. ity of (ONETOUCH 00:00: June [place] VERIO FLEX 00 substitute Med ical START) Kit brand Branch preferred by insurance blood sugar Yes [id number] Test 4x Univers diagnostic 9-29 daily for ity of (ONETOUCH 00:00: diagnosis [place] VERIO TEST 00 code Medical STRIPS) E11.9. May Branch strip substitute brand preferred by insurance Lancing Yes [id number] Use as Uni vers Device with 9 directed. ity of Lancets 00:00: [place] (ONE TOUCH 00 substitute Med ical DELICA) Kit brand Branch preferred by insurance Blood-Gluco Yes [id number] Use as Univers se Meter 9 directed. ity of (ONETOUCH 00:00: June [place] VERIO FLEX 00 substitute Med ical START) Kit brand Branch preferred by insurance blood sugar Yes [id number] Test 4x Univers diagnostic 9 daily for ity of (ONETOUCH 00:00: diagnosis [place] VERIO TEST 00 code Medical STRIPS) E11.9. May Branch strip substitute brand preferred by insurance Lancing Yes [id number] Use as Uni vers Device with 9 directed. ity of Lancets 00:00: [place] (ONE TOUCH 00 substitute Med ical DELICA) Kit brand Branch preferred by insurance Blood-Gluco Yes [id number] Use as Univers se Meter 9 directed. ity of (ONETOUCH 00:00: June [place] VERIO FLEX 00 substitute Med ical START) Kit brand Branch preferred by insurance blood sugar Yes [id number] Test 4x Univers diagnostic 9 daily for ity of (ONETOUCH 00:00: diagnosis [place] VERIO TEST 00 code Medical STRIPS) E11.9. May Branch strip substitute brand preferred by insurance allopurinoL Yes [id number] 100mg Take 1 Univers 100 mg 9-15 tablet by ity of tablet 00:00: mouth 00 daily. Medical Branch montelukast Yes [id number] 10mg Take 1 Univers 10 mg 9-15 tablet by ity of tablet 00:00: mouth 00 daily. Medical Branch fluticasone Yes [id number] 1{puff} Inhale 1 Univers propion-duc 9-15 Puff every it y of meteroL 00:00: 12 [place] (ADVAIR 00 (twelve) Medical DISKUS) hours. Branch 250-50 mcg/dose inhalation disk albuterol-i Yes [id number] 1{puff} Inhale 1 Univers pratropium 9-15 Puff 4 ity of 20-100 00:00: (four) [place] mcg/actuati 00 times Medical on inhaler daily. [place] insulin Yes [id number] INJECT 40 Univers lispro 9-15 UNITES ity of (HUMALOG 00:00: SUBCUTANEO [place] KWIKPEN 00 US THREE Medical INSULIN) TIMES [place] 100 unit/mL DAILY pen BEFORE A injector MEAL Insulin Yes [id number] INJECT 50 Univers Glargine 9-15 UNITS ity of (LANTUS 00:00: UNDER THE [place] SOLOSTAR 00 SKIN EVERY Medic al U-100 NIGHT AT [place] INSULIN) BEDTIME. 100 unit/mL (3 mL) injection aspirin 81 Yes [id number] 81mg Take 1 Univers mg chewable 9-15 tablet by ity of tablet 00:00: mouth [place] 00 daily. Medical Branch nitroglycer Yes [id number] .4mg Place 1 Univers in 9-15 tablet ity of (NITROSTAT) 00:00: under the [place] 0.4 mg 00 tongue Medical sublingual every 5 Branc h tablet (five) minutes as needed for Chest pain. metoprolol Yes [id number] 50mg Take 1 Un jb tartrate 50 9-15 tablet by ity of mg tablet 00:00: mouth 2 [place] 00 (two) Medical times Branch daily. enalapril Yes [id number] 10mg Take 1 Uni vers 10 mg 9-15 tablet by ity of tablet 00:00: mouth [place] 00 daily. Medical Branch atorvastati Yes [id number] 40mg Take 1 Univers n 40 mg 9-15 tablet by ity of tablet 00:00: mouth at [place] 00 bedtime. Medical Branch pregabalin Yes [id number] 75mg Take 1 Univers (LYRICA) 75 9-15 capsule by it y of mg capsule 00:00: mouth 3 [place] 00 (three) Medical times Branch daily. esomeprazol Yes [id number] TAKE ONE Univers e 20 mg 9-15 CAPSULE BY ity of capsule 00:00: MOUTH [place] 00 EVERY DAY Medical Branch escitalopra Yes [id number] 10mg Take 1 Univers m oxalate 9-15 tablet by ity o f 10 mg 00:00: mouth [place] tablet 00 daily. Medical Branch tamsulosin Yes [id number] .4mg Take 1 Univers 0.4 mg 24 9-15 9102 capsule by ity of hr capsule 00:00: mouth [place] 00 daily. Medical Branch finasteride Yes [id number] 5mg Take 1 Univers 5 mg tablet 9-15 9102 tablet by ity of 00:00: mouth [place] 00 daily. Medical Branch allopurinoL Yes [id number] 100mg Take 1 Univers 100 mg 9-15 tablet by ity of tablet 00:00: mouth [place] 00 daily. Medical Branch montelukast Yes [id number] 10mg Take 1 Univers 10 mg 9-15 tablet by ity of tablet 00:00: mouth [place] 00 daily. Medical Branch fluticasone Yes [id number] 1{puff} Inhale 1 Univers propion-duc 9-15 Puff every it y of meteroL 00:00: 12 [place] (ADVAIR 00 (twelve) Medical DISKUS) hours. [place] 250-50 mcg/dose inhalation disk albuterol-i Yes [id number] 1{puff} Inhale 1 Univers pratropium 9-15 Puff 4 ity of 20-100 00:00: (four) [place] mcg/actuati 00 times Medical on inhaler daily. [place] insulin Yes [id number] INJECT 40 Univers lispro 9-15 UNITES ity of (HUMALOG 00:00: SUBCUTANEO [place] KWIKPEN 00 US THREE Medical INSULIN) TIMES [place] 100 unit/mL DAILY pen BEFORE A injector MEAL Insulin Yes [id number] INJECT 50 Univers Glargine 9-15 UNITS ity of (LANTUS 00:00: UNDER THE [place] SOLOSTAR 00 SKIN EVERY Medic al U-100 NIGHT AT [place] INSULIN) BEDTIME. 100 unit/mL (3 mL) injection aspirin 81 Yes [id number] 81mg Take 1 Univers mg chewable 9-15 tablet by ity of tablet 00:00: mouth [place] 00 daily. Medical Branch nitroglycer Yes [id number] .4mg Place 1 Univers in 9-15 tablet ity of (NITROSTAT) 00:00: under the [place] 0.4 mg 00 tongue Medical sublingual every 5 Branc h tablet (five) minutes as needed for Chest pain. metoprolol Yes [id number] 50mg Take 1 Un jb tartrate 50 9-15 tablet by ity of mg tablet 00:00: mouth 2 [place] 00 (two) Medical times Branch daily. enalapril Yes [id number] 10mg Take 1 Uni vers 10 mg 9-15 tablet by ity of tablet 00:00: mouth [place] 00 daily. Medical Branch atorvastati Yes [id number] 40mg Take 1 Univers n 40 mg 9-15 tablet by ity of tablet 00:00: mouth at [place] 00 bedtime. Medical Branch pregabalin Yes [id number] 75mg Take 1 Univers (LYRICA) 75 9-15 capsule by it y of mg capsule 00:00: mouth 3 [place] 00 (three) Medical times Branch daily. esomeprazol Yes [id number] TAKE ONE Univers e 20 mg 9-15 CAPSULE BY ity of capsule 00:00: MOUTH [place] 00 EVERY DAY Medical Branch escitalopra Yes [id number] 10mg Take 1 Univers m oxalate 9-15 tablet by ity o f 10 mg 00:00: mouth [place] tablet 00 daily. Medical Branch tamsulosin Yes [id number] .4mg Take 1 Univers 0.4 mg 24 9-15 9102 capsule by ity of hr capsule 00:00: mouth [place] 00 daily. Medical Branch finasteride Yes [id number] 5mg Take 1 Univers 5 mg tablet 9-15 9102 tablet by ity of 00:00: mouth [place] 00 daily. Medical Branch allopurinoL Yes [id number] 100mg Take 1 Univers 100 mg 9-15 tablet by ity of tablet 00:00: mouth [place] 00 daily. Medical Branch montelukast Yes [id number] 10mg Take 1 Univers 10 mg 9-15 tablet by ity of tablet 00:00: mouth [place] 00 daily. Medical Branch fluticasone Yes [id number] 1{puff} Inhale 1 Univers propion-duc 9-15 Puff every it y of meteroL 00:00: 12 [place] (ADVAIR 00 (twelve) Medical DISKUS) hours. Branch 250-50 mcg/dose inhalation disk albuterol-i Yes [id number] 1{puff} Inhale 1 Univers pratropium 9-15 Puff 4 ity of 20-100 00:00: (four) [place] mcg/actuati 00 times Medical on inhaler daily. Branch Insulin Yes [id number] INJECT 50 Univers Glargine 9-15 UNITS ity of (LANTUS 00:00: UNDER THE [place] SOLOSTAR 00 SKIN EVERY Medic al U-100 NIGHT AT [place] INSULIN) BEDTIME. 100 unit/mL (3 mL) injection aspirin 81 Yes [id number] 81mg Take 1 Univers mg chewable 9-15 tablet by ity of tablet 00:00: mouth [place] 00 daily. Medical Branch nitroglycer Yes [id number] .4mg Place 1 Univers in 9-15 tablet ity of (NITROSTAT) 00:00: under the [place] 0.4 mg 00 tongue Medical sublingual every 5 Branc h tablet (five) minutes as needed for Chest pain. metoprolol Yes [id number] 50mg Take 1 Un jb tartrate 50 9-15 tablet by ity of mg tablet 00:00: mouth 2 [place] 00 (two) Medical times Branch daily. enalapril Yes [id number] 10mg Take 1 Uni vers 10 mg 9-15 tablet by ity of tablet 00:00: mouth [place] 00 daily. Medical Branch atorvastati Yes [id number] 40mg Take 1 Univers n 40 mg 9-15 tablet by ity of tablet 00:00: mouth at [place] 00 bedtime. Medical Branch pregabalin Yes [id number] 75mg Take 1 Univers (LYRICA) 75 9-15 capsule by it y of mg capsule 00:00: mouth 3 [place] 00 (three) Medical times Branch daily. esomeprazol Yes [id number] TAKE ONE Univers e 20 mg 9-15 CAPSULE BY ity of capsule 00:00: MOUTH [place] 00 EVERY DAY Medical Branch escitalopra Yes [id number] 10mg Take 1 Univers m oxalate 9-15 tablet by ity o f 10 mg 00:00: mouth [place] tablet 00 daily. Medical Branch tamsulosin Yes [id number] .4mg Take 1 Univers 0.4 mg 24 9-15 9102 capsule by ity of hr capsule 00:00: mouth [place] 00 daily. Medical Branch finasteride Yes [id number] 5mg Take 1 Univers 5 mg tablet 9-15 9102 tablet by ity of 00:00: mouth [place] 00 daily. Medical Branch allopurinoL Yes [id number] 100mg Take 1 Univers 100 mg 9-15 tablet by ity of tablet 00:00: mouth [place] 00 daily. Medical Branch montelukast Yes [id number] 10mg Take 1 Univers 10 mg 9-15 tablet by ity of tablet 00:00: mouth [place] 00 daily. Medical Branch fluticasone Yes [id number] 1{puff} Inhale 1 Univers propion-duc 9-15 Puff every it y of meteroL 00:00: 12 [place] (ADVAIR 00 (twelve) Medical DISKUS) hours. Branch 250-50 mcg/dose inhalation disk albuterol-i Yes [id number] 1{puff} Inhale 1 Univers pratropium 9-15 Puff 4 ity of 20-100 00:00: (four) [place] mcg/actuati 00 times Medical on inhaler daily. Branch aspirin 81 Yes [id number] 81mg Take 1 Univers mg chewable 9-15 tablet by ity of tablet 00:00: mouth [place] 00 daily. Medical Branch nitroglycer Yes [id number] .4mg Place 1 Univers in 9-15 tablet ity of (NITROSTAT) 00:00: under the [place] 0.4 mg 00 tongue Medical sublingual every 5 Branc h tablet (five) minutes as needed for Chest pain. metoprolol Yes [id number] 50mg Take 1 Un jb tartrate 50 9-15 tablet by ity of mg tablet 00:00: mouth 2 [place] 00 (two) Medical times Branch daily. enalapril Yes [id number] 10mg Take 1 Uni vers 10 mg 9-15 tablet by ity of tablet 00:00: mouth [place] 00 daily. Medical Branch atorvastati Yes [id number] 40mg Take 1 Univers n 40 mg 9-15 tablet by ity of tablet 00:00: mouth at [place] 00 bedtime. Medical Branch pregabalin Yes [id number] 75mg Take 1 Univers (LYRICA) 75 9-15 capsule by it y of mg capsule 00:00: mouth 3 [place] 00 (three) Medical times Branch daily. esomeprazol Yes [id number] TAKE ONE Univers e 20 mg 9-15 CAPSULE BY ity of capsule 00:00: MOUTH [place] 00 EVERY DAY Medical Branch escitalopra Yes [id number] 10mg Take 1 Univers m oxalate 9-15 tablet by ity o f 10 mg 00:00: mouth [place] tablet 00 daily. Medical Branch tamsulosin Yes [id number] .4mg Take 1 Univers 0.4 mg 24 9-15 9102 capsule by ity of hr capsule 00:00: mouth [place] 00 daily. Medical Branch finasteride Yes [id number] 5mg Take 1 Univers 5 mg tablet 9-15 9102 tablet by ity of 00:00: mouth [place] 00 daily. Medical Branch allopurinoL Yes [id number] 100mg Take 1 Univers 100 mg 9-15 tablet by ity of tablet 00:00: mouth [place] 00 daily. Medical Branch montelukast Yes [id number] 10mg Take 1 Univers 10 mg 9-15 tablet by ity of tablet 00:00: mouth [place] 00 daily. Medical Branch fluticasone Yes [id number] 1{puff} Inhale 1 Univers propion-duc 9-15 Puff every it y of meteroL 00:00: 12 [place] (ADVAIR 00 (twelve) Medical DISKUS) hours. Branch 250-50 mcg/dose inhalation disk albuterol-i Yes [id number] 1{puff} Inhale 1 Univers pratropium 9-15 Puff 4 ity of 20-100 00:00: (four) [place] mcg/actuati 00 times Medical on inhaler daily. Branch aspirin 81 Yes [id number] 81mg Take 1 Univers mg chewable 9-15 tablet by ity of tablet 00:00: mouth [place] 00 daily. Medical Branch nitroglycer Yes [id number] .4mg Place 1 Univers in 9-15 tablet ity of (NITROSTAT) 00:00: under the [place] 0.4 mg 00 tongue Medical sublingual every 5 Branc h tablet (five) minutes as needed for Chest pain. metoprolol Yes [id number] 50mg Take 1 Un jb tartrate 50 9-15 tablet by ity of mg tablet 00:00: mouth 2 [place] 00 (two) Medical times Branch daily. enalapril Yes [id number] 10mg Take 1 Uni vers 10 mg 9-15 tablet by ity of tablet 00:00: mouth [place] 00 daily. Medical Branch atorvastati Yes [id number] 40mg Take 1 Univers n 40 mg 9-15 tablet by ity of tablet 00:00: mouth at [place] 00 bedtime. Medical Branch pregabalin Yes [id number] 75mg Take 1 Univers (LYRICA) 75 9-15 capsule by it y of mg capsule 00:00: mouth 3 [place] 00 (three) Medical times Branch daily. esomeprazol Yes [id number] TAKE ONE Univers e 20 mg 9-15 CAPSULE BY ity of capsule 00:00: MOUTH [place] 00 EVERY DAY Medical Branch escitalopra Yes [id number] 10mg Take 1 Univers m oxalate 9-15 tablet by ity o f 10 mg 00:00: mouth [place] tablet 00 daily. Medical Branch tamsulosin Yes [id number] .4mg Take 1 Univers 0.4 mg 24 9-15 9102 capsule by ity of hr capsule 00:00: mouth [place] 00 daily. Medical Branch finasteride Yes [id number] 5mg Take 1 Univers 5 mg tablet 9-15 9102 tablet by ity of 00:00: mouth [place] 00 daily. Medical Branch insulin 2020- No [id number] INJECT 40 Univers lispro -15 1207 UNITES ity of (HUMALOG 00:00: 00:00 [place]ANEO [place] KWIKPEN 00 :00 THREE Medical INSULIN) TIMES Branch 100 unit/mL DAILY pen BEFORE A injector MEAL Insulin 2020- No [id number] INJECT 50 Univers Glargine -15 12-03 UNITS ity of (LANTUS 00:00: 00:00 [place]ER THE [place] SOLOSTAR 00 :00 SKIN EVERY Medic al U-100 NIGHT AT Branch INSULIN) BEDTIME. 100 unit/mL (3 mL) injection amoxicillin 2020- No [id number] 1{tbl} Take 1 Univers -clavulanat 11-07 tablet by it y of e 00:00: 04:59 mouth 2 [place] (AUGMENTIN) 00 :00 (two) Medical 875-125 mg times Branch per tablet daily for 10 days. BD MATIAS 2ND Yes [id number] INJECT Univers GEN PEN 3-21 UNDER THE ity of NEEDLE 32 00:00: SKIN THREE [place] gauge x 00 TIMES Medical 5/32" Ndle DAILY Branch BD MATIAS 2ND Yes [id number] INJECT Univers GEN PEN 3-21 UNDER THE ity of NEEDLE 32 00:00: SKIN THREE [place] gauge x 00 TIMES Medical 5/32" Ndle DAILY Branch BD MATIAS 2ND Yes [id number] INJECT Univers GEN PEN 3-21 UNDER THE ity of NEEDLE 32 00:00: SKIN THREE [place] gauge x 00 TIMES Medical 5/32" Ndle DAILY Branch BD MATIAS 2ND Yes [id number] INJECT Univers GEN PEN 3-21 UNDER THE ity of NEEDLE 32 00:00: SKIN THREE [place] gauge x 00 TIMES Medical 5/32" Ndle DAILY Branch BD MATIAS 2ND Yes [id number] INJECT Univers GEN PEN 3-21 UNDER THE ity of NEEDLE 32 00:00: SKIN THREE [place] gauge x 00 TIMES Medical 5/32" Ndle DAILY Branch blood sugar Yes [id number] 3 Un jb diagnostic 2-05 times/day ity of (ONETOUCH 00:00: [place] VERIO TEST 00 Medical STRIPS) Branch strip fluticasone Yes [id number] 2{spray Use 2 Univers propionate 2-05 } Sprays in ity of 50 00:00: each [place] mcg/actuati 00 nostril Medic al on nasal daily. Branch spray blood sugar Yes [id number] 3 Un jb diagnostic 2-05 times/day ity of (ONETOUCH 00:00: [place] VERIO TEST 00 Medical STRIPS) Branch strip fluticasone 2020-0 Yes [id number] 2{spray Use 2 Univers propionate 2-05 } Sprays in ity of 50 00:00: each [place] mcg/actuati 00 nostril Medic al on nasal daily. Branch spray blood sugar 2020-0 Yes [id number] Un jb diagnostic 2-05 times/day ity of (ONETOUCH 00:00: [place] VERIO TEST 00 Medical STRIPS) Branch strip fluticasone 2020-0 Yes [id number] 2{spray Use 2 Univers propionate 2-05 } Sprays in ity of 50 00:00: each [place] mcg/actuati 00 nostril Medic al on nasal daily. Branch spray blood sugar 2020-0 Yes [id number] 3 Un jb diagnostic 2-05 times/day ity of (ONETOUCH 00:00: [place] VERIO TEST 00 Medical STRIPS) Branch strip fluticasone 2020-0 Yes [id number] 2{spray Use 2 Univers propionate 2-05 } Sprays in ity of 50 00:00: each [place] mcg/actuati 00 nostril Medic al on nasal daily. Branch spray blood sugar 2020-0 Yes [id number] 3 Un jb diagnostic 2-05 times/day ity of (ONETOUCH 00:00: [place] VERIO TEST 00 Medical STRIPS) Branch strip fluticasone 2020-0 Yes [id number] 2{spray Use 2 Univers propionate 2-05 } Sprays in ity of 50 00:00: each [place] mcg/actuati 00 nostril Medic al on nasal daily. Branch spray Insulin 2018- Yes [id number] Before Univ ers [place], 1-11 meals, dx ity of Disposable, 00:00: code E11.9 [place] 31 gauge x 00 Pen needle Med ical 1/4" Ndle humalog Branch quick pen Insulin 2019- Yes [id number] Before Univ [facility] [place], 1-11 meals, dx ity of Disposable, 00:00: code E11.9 [place] 31 gauge x 00 Pen needle Med ical 1/4" Ndle humalog Branch quick pen Insulin 2019- Yes [id number] Before Univ [facility] [place], 1-11 meals, dx ity of Disposable, 00:00: code E11.9 [place] 31 gauge x 00 Pen needle Med ical 1/4" Ndle humalog Branch quick pen Insulin 2019- Yes [id number] Before Univ [facility] [place], 1-11 meals, dx ity of Disposable, 00:00: code E11.9 [place] 31 gauge x 00 Pen needle Med ical 1/4" [facility] Branch quick pen Insulin 2018- Yes [id number] Before Univ [facility] [place], 1-11 meals, dx ity of Disposable, 00:00: code E11.9 [place] 31 gauge x 00 Pen needle Med ical 4" [facility] quick pen COLCRYS 0.6 2019-0 Yes [id number] .6mg TAKE 1 Univers mg tablet 2-19 TABLET BY ity o f 00:00: MOUTH [place] DAILY [facility] Branch COLCRYS 0.6 2019-0 Yes [id number] .6mg TAKE 1 Univers mg tablet 2-19 TABLET BY ity o f 00:00: MOUTH [place] DAILY [facility] Branch COLCRYS 0.6 2019-0 Yes [id number] .6mg TAKE 1 Univers mg tablet 2-19 TABLET BY ity o f 00:00: MOUTH [place] DAILY [facility] COLCRYS 0.6 2019-0 Yes [id number] .6mg TAKE 1 Univers mg tablet 2-19 TABLET BY ity o f 00:00: MOUTH [place] DAILY [facility] Branch COLCRYS 0.6 2019-0 Yes [id number] .6mg TAKE 1 Univers mg tablet 2-19 TABLET BY ity o f 00:00: MOUTH [place] DAILY [facility] Blood-Gluco 2018-0 2020- No Use as Uni vers se Meter 06-29 directed ity of (BLOOD 00:00: 00:00 [place] GLUCOSE 00 :00 Medical MONITORING) Branch Kit Immunizations Ordered Filled Immunization Date Status Comments [facility] e Immunization Name Name SARS-COV-2 COVID-19 2020-11-07 Completed Unive rsity of PFIZER VACCINE 00:00:00 [facility] SARS-COV-2 COVID-19 2020-11-07 Completed Unive rsity of PFIZER VACCINE 00:00:00 [facility] SARS-COV-2 COVID-19 2020-11-07 Completed Unive rsity of PFIZER VACCINE 00:00:00 [facility] SARS-COV-2 COVID-19 2020-11-07 Completed Unive rsity of PFIZER VACCINE 00:00:00 [place] Medi johnathan Branch SARS-COV-2 COVID-19 2020-11-07 Completed Unive rsity of PFIZER VACCINE 00:00:00 [facility] Branch SARS-COV-2 COVID-19 2020-04-19 Completed Unive rsity of PFIZER VACCINE 00:00:00 [facility] Branch SARS-COV-2 COVID-19 2020-04-19 Completed Unive rsity of PFIZER VACCINE 00:00:00 [facility] Branch SARS-COV-2 COVID-19 2020-04-19 Completed Unive rsity of PFIZER VACCINE 00:00:00 [facility] Branch SARS-COV-2 COVID-19 2020-04-19 Completed Unive rsity of PFIZER VACCINE 00:00:00 [facility] Branch SARS-COV-2 COVID-19 2020-04-19 Completed Unive rsity of PFIZER VACCINE 00:00:00 [facility] SARS-COV-2 COVID-19 2020-03-21 Completed Unive rsity of PFIZER VACCINE 00:00:00 [facility] Branch SARS-COV-2 COVID-19 2020-03-21 Completed Unive rsity of PFIZER VACCINE 00:00:00 [facility] Branch SARS-COV-2 COVID-19 2020-03-21 Completed Unive rsity of PFIZER VACCINE 00:00:00 [facility] Branch SARS-COV-2 COVID-19 2020-03-21 Completed Unive rsity of PFIZER VACCINE 00:00:00 [facility] SARS-COV-2 COVID-19 2020-03-21 Completed Unive rsity of PFIZER VACCINE 00:00:00 [facility] Influenza High Dose 2019-05-29 Completed Unive rsity of 00:00:00 [facility] Influenza High Dose 2019-05-29 Completed Unive rsity of 00:00:00 [facility] Influenza High Dose 2019-05-29 Completed Unive rsity of 00:00:00 [facility] Influenza High Dose 2019-05-29 Completed Unive rsity of 00:00:00 [facility] Influenza High Dose 2019-05-29 Completed Unive rsity of 00:00:00 [facility] Influenza High Dose 2017-02-10 Completed Unive rsity of 00:00:00 [facility] Influenza High Dose 2017-02-10 Completed Unive rsity of 00:00:00 [facility] Influenza High Dose 2017-02-10 Completed Unive rsity of 00:00:00 [facility] Influenza High Dose 2017-02-10 Completed Unive rsity of 00:00:00 [facility] Influenza High Dose 2017-02-10 Completed Unive rsity of 00:00:00 [facility] Influenza High Dose 2015-12-25 Completed Unive rsity of 00:00:00 [facility] Influenza High Dose 2015-12-25 Completed Unive rsity of 00:00:00 [facility] Influenza High Dose 2015-12-25 Completed Unive rsity of 00:00:00 [facility] Influenza High Dose 2015-12-25 Completed Unive rsity of 00:00:00 [facility] Influenza High Dose 2015-12-25 Completed Unive rsity of 00:00:00 [facility] Influenza High Dose 2015-03-20 Completed Unive rsity of 00:00:00 [facility] TDAP 2015-03-20 Completed University of 00:00:00 [facility] Influenza High Dose 2015-03-20 Completed Unive rsity of 00:00:00 [facility] TDAP 2015-03-20 Completed University of 00:00:00 [facility] Influenza High Dose 2015-03-20 Completed Unive rsity of 00:00:00 [facility] TDAP 2015-03-20 Completed University of 00:00:00 [facility] Influenza High Dose 2015-03-20 Completed Unive rsity of 00:00:00 [facility] TDAP 2015-03-20 Completed University of 00:00:00 [facility] Influenza High Dose 2015-03-20 Completed Unive rsity of 00:00:00 [facility] TDAP 2015-03-20 Completed University of 00:00:00 [facility] Pneumococcal 13 2014-08-01 Completed Universit y of Conjugate, PCV13 00:00:00 [place]ical (Prevnar 13) Branch Pneumococcal 13 2014-08-01 Completed Universit y of Conjugate, PCV13 00:00:00 [place] Me dical (Prevnar 13) Branch Pneumococcal 13 2014-08-01 Completed Universit y of Conjugate, PCV13 00:00:00 [place] Me dical (Prevnar 13) Branch Pneumococcal 13 2014-08-01 Completed Universit y of Conjugate, PCV13 00:00:00 [place]ical (Prevnar 13) Branch Pneumococcal 13 2014-08-01 Completed Universit y of Conjugate, PCV13 00:00:00 [facility] dical (Prevnar 13) Branch Influenza High Dose 2013-11-29 Completed Unive rsity of 00:00:00 [facility] Influenza High Dose 2013-11-29 Completed Unive rsity of 00:00:00 [facility] Influenza High Dose 2013-11-29 Completed Unive rsity of 00:00:00 [facility] Influenza High Dose 2013-11-29 Completed Unive rsity of 00:00:00 [facility] Influenza High Dose 2013-11-29 Completed Unive rsity of 00:00:00 [facility] Influenza High Dose 2013-04-07 Completed Unive rsity of 00:00:00 [facility] Influenza High Dose 2013-04-07 Completed Unive rsity of 00:00:00 [facility] Influenza High Dose 2013-04-07 Completed Unive rsity of 00:00:00 [facility] Influenza High Dose 2013-04-07 Completed Unive rsity of 00:00:00 [facility] Influenza High Dose 2013-04-07 Completed Unive rsity of 00:00:00 [facility] Influenza Virus 2009-12-24 Completed Universit y of Vaccine 00:00:00 [facility] Influenza Virus 2009-12-24 Completed Universit y of Vaccine 00:00:00 [facility] Influenza Virus 2009-12-24 Completed Universit y of Vaccine 00:00:00 [facility] Influenza Virus 2009-12-24 Completed Universit y of Vaccine 00:00:00 [facility] Influenza Virus 2009-12-24 Completed Universit y of Vaccine 00:00:00 [facility] Pneumococcal 2008-06-23 Completed University o f Polysaccharide, 00:00:00 [place] Med ical PPSV23 (PNEUMOVAX) Branch Pneumococcal 2008-06-23 Completed University o f Polysaccharide, 00:00:00 [place] Med ical PPSV23 (PNEUMOVAX) Branch Pneumococcal 2008-06-23 Completed University o f Polysaccharide, 00:00:00 [place] Med ical PPSV23 (PNEUMOVAX) Branch Pneumococcal 2008-06-23 Completed University o f Polysaccharide, 00:00:00 [place] Med ical PPSV23 (PNEUMOVAX) Branch Pneumococcal 2008-06-23 Completed University o f Polysaccharide, 00:00:00 [place] Med ical PPSV23 (PNEUMOVAX) Branch Procedures This patient has no known procedures. Encounters Start End Encounter Admission Attending Care Care Encounter Source Date/Time Date/Time Type Type Clinicians Facility Department ID 2020-12-21 Emergency [facility] [id number] Univers 21:28:42 ity of [facility] 2021-02-01 2021-02-[address] [facility] [id number] Univers 15:45:00 15:45:00 , ESPERANZA [id number] it y of [facility] 2021-02-01 2021-02-[address] [facility] [id number] Univers 15:45:00 15:45:00 , ESPERANZA it y [facility] 2021-01-29 2021-01-29 Refill Ramsey MARTÍNEZ [id number] Univers 00:00:00 00:00:00 , [place] PEDIATRIC [id number] ity [id number] [place] [address] Branch [facility] 2021-01-28 2021-01-28 Refill Ramsey MARTÍNEZ [id number] Univers 00:00:00 00:00:00 , [place] PEDIATRIC [id number] [place]y [id number] [id number] [place] [address] Branch [facility] 2021-01-26 2021-01-26 Refill Tawny, UNIVERSIT [id number] Univers 00:00:00 00:00:00 Olena Amaya Y HEALTH [id number] ity of CL[id number] [id number] [place] [id number] Branch 2021-01-25 2021-01-25 Refill Ramsey MARTÍNEZ [id number] Univers 00:00:00 00:00:00 , [place] PEDIATRIC [id number] [id number] [id number] [address] [facility]ARE [facility] 2020-12-19 2020-12-19 Outpatient R RAMSEY [facility] [id number] Univers 15:45:00 15:45:00 , ESPERANZA [id number] it y [facility] 2020-12-11 2020-12-11 Outpatient R ROSHAN [facility] [id number] Univers 15:00:00 15:00:00 SENDIL [id number] ity [facility] 2020-12-11 2020-12-11 [facility] [id number] Univers 15:00:00 15:00:00 SENDIL ity [facility] 2020-11-28 2020-11-28 Outpatient R DARSHANA [facility] [id number] Univers 14:00:00 14:00:00 KYLEIGH [id number] [facility] 2020-11-28 2020-11-28 Outpatient R DARSHANA [facility] [id number] Univers 14:00:00 14:00:00 KYLEIGH [facility] 2020-11-26 2020-11-26 Outpatient R LAYO [facility] [id number] Univers 14:00:00 14:00:00 DOUGLAS [id number] [facility] 2020-11-26 2020-11-26 Outpatient R LAYO [facility] [id number] Univers 14:00:00 14:00:00 DOUGLAS [facility] 2020-11-22 2020-11-22 Outpatient R SHIRA [facility] [id number] Univers 13:15:00 13:15:00 AQUILES [id number] ity [facility] 2020-11-22 2020-11-22 [facility] [id number] Univers 13:15:00 13:15:00 AQUILES ity [facility] 2020-11-21 2020-11-21 Outpatient R RAMSEY [facility] [id number] Univers 15:45:00 15:45:00 , ESPERANZA [id number] it y [facility] 2020-11-21 2020-11-21 Outpatient R RAMSEY [facility] [id number] Univers 15:45:00 15:45:00 , ESPERANZA it y [facility] 2020-11-12 2020-11-12 Outpatient R KELSI [facility] [id number] Univers 14:30:00 14:30:00 JAY [id number] ity [facility] 2020-11-12 2020-11-12 [facility] [id number] Univers 14:30:00 14:30:00 BILAL [facility] 2020-11-12 2020-11-12 Patient Brett Ray [id number] Univers 00:00:00 00:00:00 Outreach Bonita Landaverde Pediatric [id number] ity of and [id number] [place] Adult [id number] [place] [address] Branch [facility] 2020-11-07 2020-11-07 Outpatient RAMSEY [facility] [id number] Univers 15:15:00 15:15:00 , ESPERANZA [id number] [facility] 2020-11-07 2020-11-07 Outpatient R RAMSEY [facility] [id number] Univers 15:15:00 15:15:00 , ESPERANZA [facility] 2020-10-31 2020-10-31 [facility] [id number] Univers 16:00:00 16:00:00 KT [id number] [facility] 2020-10-31 2020-10-31 Outpatient R DEANNE [facility] [id number] Univers 16:00:00 16:00:00 KT [facility] 2020-10-11 2020-10-11 Outpatient R CALLIE [facility] [id number] Univers 13:00:00 13:00:00 DELROY [id number] [facility] 2020-10-11 2020-10-11 Outpatient R CALLIE [facility] [id number] Univers 13:00:00 13:00:00 DELROY [facility] 2020-10-01 2020-10-01 Outpatient R [facility] [id number] Univers 19:00:00 19:00:00 [id number] [facility] 2020-10-01 2020-10-01 Outpatient R REGGIE, [facility] [id number] Univers 19:00:00 19:00:00 DIONNA cheatham [facility] 2020-06-16 2020-06-16 [facility] [id number] 00:00:00 00:00:00 Olena Amaya PRIMARY [id number] CARE [id number] PAVILLION [id number] 2020-06-13 2020-06-13 [facility] [id number] 00:00:00 00:00:00 Olena Pena HEALTH [id number] CLINICS [id number] [id number] 2020-06-12 2020-06-12 [facility] [place], [facility] [id number] 00:00:00 00:00:00 Olena Pena HEALTH [id number] CLINICS [id number] [id number] 2020-06-11 2020-06-11 Outpatient SHIRA, [facility] [id number] Univers 16:00:00 16:00:00 AQUILES [id number] [facility] 2020-06-03 2020-06-03 [facility] [id number] 00:00:00 00:00:00 Olena Pena HEALTH [id number] CLINICS [id number] [id number] 2020-05-11 2020-05-11 [facility] [id number] 00:00:00 00:00:00 Olena Amaya PRIMARY [id number] CARE [id number] PAVILLION [id number] 2020-04-19 2020-04-19 Outpatient R HEATHER [facility] [id number] Univers 15:30:00 15:30:00 ABDULAZIZ [id number] [facility] 2020-04-19 2020-04-19 Outpatient R HEATHER [facility] [id number] Univers 15:30:00 15:30:00 ABDULAZIZ [facility] 2020-04-13 2020-04-13 Outpatient Kecia ROMERO [facility] [id number] Univers 15:40:00 15:40:00 ABDULAZIZ [id number] [facility] 2020-04-13 2020-04-13 Outpatient Kecia ROMERO [facility] [id number] Univers 15:40:00 15:40:00 ABDULAZIZ [facility] 2020-04-10 2020-04-10 [facility] 1.2.840.114 [id number] 00:00:00 00:00:00 Olena M PRIMARY [id number] CARE [id number] PAVILLION [id number] 2020-03-28 2020-03-28 Refill [facility] 1.2.840.114 [id number] 00:00:00 00:00:00 Olena M PRIMARY [id number] CARE [id number] PAVILLION [id number] 2020-03-27 2020-03-27 Refill [facility] [id number] 00:00:00 00:00:00 Olena M PRIMARY [id number] CARE [id number] PAVILLION [id number] 2020-03-25 2020-03-25 [facility] 1.2.840.114 [id number] 00:00:00 00:00:00 Aquiles Pedraza 350.1.13.10 [place] [id number] Professio [id number] [address] 2020-03-21 2020-03-21 [facility] [id number] Univers 15:30:00 15:30:00 KIMBER [id number] ity [facility] 2020-03-21 2020-03-21 Outpatient R LELA [facility] [id number] Univers 15:30:00 15:30:00 KIMBER ity [facility] 2019-10-18 2019-10-18 Outpatient R TAWNY [facility] [id number] Univers 09:15:00 09:15:00 OLENA [id number] ity [facility] 2019-10-18 2019-10-18 Outpatient R DACSO, [facility] [id number] Univers 09:15:00 09:15:00 OLENA ity [facility] 2019-09-23 2019-09-23 Outpatient R [facility] [id number] Univers 11:10:00 11:10:00 [id number] [facility] 2019-06-07 2019-06-07 Outpatient R TAWNY [facility] [id number] Univers 11:15:00 11:15:00 OLENA [id number] ity [facility] 2019-06-07 2019-06-07 Outpatient R TAWNY, [facility] [id number] Univers 11:15:00 11:15:00 OLENA [facility] 2019-05-27 2019-05-29 Outpatient X [facility] [id number] Univers 14:59:30 14:00:00 BALJIT [facility] 2019-05-27 2019-05-27 Outpatient R PETR, [facility] [id number] Univers 09:30:00 09:30:00 KARLI Gutiérrez03 ity [facility] 2019-05-27 2019-05-27 Outpatient R PETR, [facility] [id number] Univers 09:30:00 09:30:00 KARLI ity [facility] 2019-05-20 2019-05-20 Outpatient R SHIRA [facility] [id number] Univers 09:00:00 09:00:00 [facility] ity [facility] 2019-04-22 2019-04-22 Outpatient R SHIRA [facility] [id number] Univers 16:15:00 16:15:00 AQUILES ity [facility] 2019-04-22 2019-04-22 Outpatient Kecia HUMPHREYS [facility] [id number] Univers 15:00:00 15:00:00 KARLI [id number] [facility] 2019-04-22 2019-04-22 Outpatient Kecia HUMPHREYS [facility] [id number] Univers 15:00:00 15:00:00 [facility] 2019-04-15 2019-04-15 Outpatient Kecia TOMPKINS [facility] [id number] Univers 13:30:00 13:55:57 [facility] Results This patient has no known results.
[2021-02-04 09:57] LABS: Absolute Lymphocytes (CBC) 0.1 K/uL (0.7-4.9); Basophils % 0.4 % (0-1.3); Hematocrit 48.5 % (39.6-49.0); Lymphocytes % 1.4 % (15.3-44.8); MPV 8.6 fL (7.6-11.3); RBC Red Blood Cell Count 5.52 M/uL (4.33-5.43)
[2021-02-04 09:59] LABS: Protime INR 1.03
[2021-02-04] MEDS ORDERED: ONDANSETRON 4 MG/2 ML VIAL ONE (10:05)
[2021-02-04] MEDS ORDERED: NA CHLORIDE 0.9% 500 ML ONE (10:05)
[2021-02-04 10:26] LABS: Blood Morphology Comment NOT SEEN (NOT SEEN); Platelet Estimate ADEQ
[2021-02-04 11:48] LABS: ALT/SGPT 36 U/L (12-78); AST/SGOT 18 U/L (15-37); Albumin 2.9 g/dL (3.4-5.0); Alkaline Phosphatase 88 U/L (45-117); BUN Blood Urea Nitrogen 25 mg/dL (7-18); Bicarbonate 24 mmol/L (21-32); Bilirubin Direct 0.2 mg/dL (0-0.2); Bilirubin Total 0.6 mg/dL (0.2-1.0); Glucose Level 329 mg/dL (74-106); Lipase 49 U/L (73-393); Magnesium 1.9 mg/dL (1.8-2.4); NT PRO-BNP 306 pg/mL (<450); Potassium 4.8 mmol/L (3.5-5.1); Protein, Total 6.9 g/dL (6.4-8.2); Sodium Level 140 mmol/L (136-145); Troponin (Emerg Dept Use Only) < 0.02 ng/mL (0.0-0.045)
--- NOTE | 2021-02-04 13:10 | RAD REPORT ---
EXAM DESCRIPTION: CT - Abdomen Pelvis Wo Contrast - 02/04/2021 12:45 pm CLINICAL HISTORY: Abdominal pain. abdominal pain, vomiting, diarrhea COMPARISON: Abdomen Pelvis W Contrast dated 08/30/2020 TECHNIQUE: CT imaging of the abdomen and pelvis was performed without contrast. Solid organ, bowel a nd vascular assessment is limited due to lack of IV and oral contrast. All CT scans are performed using dose optimization technique as appropriate and may include automated exposure control or mA/KV adjustment according to patient size. FINDINGS: Mild linear atelectasis is present in both lung bases.Cholecystectomy clips. The liver, spleen, pancreas, adrenal glands and right kidney are within normal limits for a limited n on-contrast examination.Highly atrophic left kidney. No bowel obstruction, free air, free fluid or abscess. Mild sigmoid diverticulosis coli without diver ticulitis. The appendix is normal. Moderate multilevel degenerative change involves the lumbar spine. IMPRESSION: No acute intra-abdominal or pelvic findings. A limited non-contrast examination was performed as detailed.
--- NOTE | 2021-02-04 14:03 | EDPHYS ---
Physician Documentation [facility] Name: Erika Sharif Age: 80 yrs Sex: Male : 1940 Arrival Date: 02/04/2021 Time: 09:20 Bed 16 Private MD: ED Physician Saturnino Thompson HPI: 02/04 13:58 This 80 yrs old Male presents to ER via EMS with complaints of vomiting, diarrhea. [facility] 13:58 The patient presents to the emergency department with vomiting, diarrhea. Onset: The jmm symptoms/episode began/occurred gradually. Possible causes: unknown. The symptoms are aggravated by nothing. The symptoms are alleviated by nothing. This is a 80-year-old male with a history of chronic kidney disease, diabetes mellitus, CHF, coronary artery disease and presents emerged department with complaints of multiple episodes of vomiting and diarrhea. According to the patient at 16 episodes of vomiting prior to arrival. Patient has had multiple episodes of diarrhea as well. Complains of generalized abdominal pain. Denies shortness of breath.. Historical: - Allergies: 09: zolpidem; al4 - PMHx: 09:26 CHF; Diabetes - IDDM; COPD; kidney failure; Myocardial infarction; neuropathy; pleural al4 effusion; - Immunization history:: Adult Immunizations up to date, Client reports receiving the 2nd dose of the Covid vaccine, Flu vaccine is not up to date. - Social history:: Smoking status: Patient denies any tobacco usage or history of. ROS: 13:58 Constitutional: Negative for fever, chills, and weight loss, Cardiovascular: Negative jmm for chest pain, palpitations, and edema, Respiratory: Negative for shortness of breath, cough, wheezing, and pleuritic chest pain. 13:58 Abdomen/GI: Positive for nausea and vomiting, diarrhea. 13:58 All other systems are negative. Exam: 13:58 Constitutional: This is a well developed, well nourished patient who is awake, alert, jmm and in no acute distress. Head/Face: atraumatic. Eyes: EOMI, no conjunctival erythema appreciated ENT: Moist Mucus Membranes Neck: Trachea midline, Supple Chest/axilla: Normal chest wall appearance and motion. Cardiovascular: Regular rate and rhythm. No edema appreciated Respiratory: Normal respirations, no respiratory distress appreciated 13:58 Back: Normal ROM Skin: General appearance color normal MS/ Extremity: Moves all extremities, no obvious deformities appreciated, no edema noted to the lower extremities Neuro: Awake and alert, normal gait Psych: Behavior is normal, Mood is normal, Patient is cooperative and pleasant 13:58 Abdomen/GI: Inspection: obese Bowel sounds: normal, Palpation: soft, mild abdominal tenderness, in all quadrants. Vital Signs: 09:21 BP 141 / 118; Pulse 103; Resp 20 S; Temp 98.8; Pulse Ox 93% on R/A; Weight 147.42 kg; al4 Height 5 ft. 9 in. (175.26 cm); Pain 9/10; 10:21 BP 127 / 77; jd3 10:30 BP 129 / 58; Pulse 99; Resp 25 S; Pulse Ox 93% on R/A; al4 11:00 BP 108 / 69; Pulse 102; Resp 27; Pulse Ox 93% ; jd3 11:30 BP 115 / 77; Pulse 104; Resp 25; Pulse Ox 93% ; jd3 13:30 BP 120 / 63; Pulse 89; Resp 23 S; Pulse Ox 93% on R/A; al4 15:29 BP 121 / 58; Pulse 88; Resp 26 S; Pulse Ox 93% on R/A; al4 16:00 BP 120 / 50; Pulse 88; Resp 23 S; Pulse Ox 94% on R/A; al4 17:00 BP 120 / 66; Pulse 91; Resp 21 S; Pulse Ox 90% on R/A; al4 09:21 Body Mass Index 47.99 (147.42 kg, 175.26 cm) hi4 MDM: 09:34 Patient medically screened. [facility] 14:00 Data reviewed: vital signs, nurses notes, lab test result(s), radiologic studies, CT [facility] scan. Counseling: I had a detailed discussion with the patient and/or guardian regarding: the historical points, exam findings, and any diagnostic results supporting the discharge/admit diagnosis, lab results, radiology results, the need for further work-up and treatment in the hospital. ED course: I discussed the patient with Dr. Thompson whom accepted the patient for observation and IV fluids.. 02/04 09:34 Order name: Basic Metabolic Panel; Complete Time: 11:48 [facility] 02/04 09:34 Order name: CBC with Diff; Complete Time: 10:42 [facility] 02/04 09:34 Order name: LFT's; Complete Time: 11:48 [facility] 02/04 09:34 Order name: Magnesium; Complete Time: 11:48 [facility] 02/04 09:34 Order name: NT PRO-BNP; Complete Time: 11:48 [facility] 02/04 09:34 Order name: PT-INR; Complete Time: 10:09 [facility] 02/04 09:34 Order name: Troponin (emerg Dept Use Only); Complete Time: 11:48 [facility] 02/04 09:34 Order name: Lipase; Complete Time: 11:48 [facility] 02/04 10:25 Order name: Manual Differential; Complete Time: 10:42 [facility] 02/04 11:55 Order name: CT Abd/Pelvis - Without Contrast; Complete Time: 13:21 [facility] 02/04 13:56 Order name: SARS-COV-2 RT PCR (Document "Date of Onset" if Symptomatic); Complete Time: [facility] 17:42 02/04 16:41 Order name: Urine Dipstick-Ancillary; Complete Time: 16:43 [facility] 02/04 09:34 Order name: EKG; Complete Time: 09:35 [facility] 02/04 09:34 Order name: Cardiac monitoring; Complete Time: 09:37 [facility] 02/04 09:34 Order name: EKG - Nurse/Tech; Complete Time: 10:02 [facility] 02/04 09:34 Order name: IV Saline Lock; Complete Time: 09:37 [facility] 02/04 09:34 Order name: Labs collected and sent; Complete Time: 09:51 [facility] 02/04 09:34 Order name: O2 Per Protocol; Complete Time: 09:37 [facility] 02/04 09:34 Order name: O2 Sat Monitoring; Complete Time: 09:37 [facility] 02/04 09:42 Order name: Urine Dipstick-Ancillary (obtain specimen); Complete Time: 16:41 [facility] Administered Medications: 10:14 Drug: Ondansetron 4 mg Route: IVP; Site: right antecubital; al4 11:14 Follow up: Response: No adverse reaction al4 10:14 Drug: NS 0.9% 500 ml Route: IV; Rate: bolus; Site: right antecubital; al4 11:14 Follow up: Response: No adverse reaction; IV Status: Completed infusion al4 Disposition: 18:33 Co-signature as Attending Physician, Saturnino Thompson MD I agree with the assessment and rn plan of care. Attestation: The patient's history, exam findings, diagnostics, and a summary of any interventions or procedures was reviewed in detail with Tim RENDON. Disposition Summary: 02/04/21 14:02 Hospitalization Ordered Hospitalization Status: Observation [facility] Provider: Agustin Thompson Location: Telemetry/MedSurg (observation) [facility] Condition: Stable [facility] Problem: new jmm Symptoms: have improved [facility] Bed/Room Type: Standard [facility] Room Assignment: 231(02/04/21 16:42) bd Diagnosis - Vomiting jmm - Diarrhea, unspecified jmm - Dehydration jmm - Acute Kidney Injury [facility] Forms: - Medication Reconciliation Form jmm - SBAR form [facility] Signatures: Dispatcher [employer] EDMS Margaret Mendez Joel, PA PA jmm Nieto, Roman, MD MD rn Ledbetter, Alexis al4 Corrections: (The following items were deleted from the chart) 16:42 14:02 [facility] bd
--- NOTE | 2021-02-04 14:03 | ER ---
Nurse's Notes [facility] Name: Erika Sharif Age: 80 yrs Sex: Male : 1940 Arrival Date: 02/04/2021 Time: 09:20 Bed 16 Private MD: Diagnosis: Vomiting;Diarrhea, unspecified;Dehydration;Acute Kidney Injury Presentation: 02/04 09:21 Chief complaint: EMS states: "patients called. patient is complaining of nausea, al4 vomiting, diarrhea. patient stated he has vomited 16 times prior to being picked up. patient reported falling yesterday to the bathroom but reports no injuries.". Coronavirus screen: Vaccine status: Patient reports receiving the 2nd dose of the covid vaccine. diarrhea, nausea, vomiting. Ebola Screen: No symptoms or risks identified at this time. Initial Sepsis Screen: Does the patient meet any 2 criteria? No. Patient's initial sepsis screen is negative. Does the patient have a suspected source of infection? No. Patient's initial sepsis screen is negative. Risk Assessment: Do you want to hurt yourself or someone else? Patient reports no desire to harm self or others. Onset of symptoms was February 03, 2021. 09:21 Method Of Arrival: EMS: [facility] al4 09:21 Acuity: PEEWEE 3 al4 Historical: - Allergies: : zolpidem; al4 - PMHx: 09:26 CHF; Diabetes - IDDM; COPD; kidney failure; Myocardial infarction; neuropathy; pleural al4 effusion; - Immunization history:: Adult Immunizations up to date, Client reports receiving the 2nd dose of the Covid vaccine, Flu vaccine is not up to date. - Social history:: Smoking status: Patient denies any tobacco usage or history of. Screenin:30 Abuse screen: Denies threats or abuse. Nutritional screening: No deficits noted. al4 Tuberculosis screening: No symptoms or risk factors identified. Fall Risk Fall in past 12 months (25 points). IV access (20 points). Ambulatory Aid- Crutches/Cane/Walker (15 pts). Gait- Weak (10 pts.). Mental Status- Oriented to own ability (0 pts). Total Payne Fall Scale indicates High Risk Score (45 or more points). Fall prevention measures have been instituted. Side Rails Up X 2 Placed Close to Nursing Station Frequent Obs/Assessments Occuring As available patient and family educated on Fall Prevention Program and Strategies. Assessment: 10:00 General: Appears in no apparent distress. uncomfortable, unkempt. General: Behavior is jd3 calm, cooperative. Pain: Complains of pain in abdomen Quality of pain is described as aching, Pain began 1 day ago. Neuro: Level of Consciousness is awake, alert, obeys commands, Oriented to person, place, time, situation. Cardiovascular: Capillary refill < 3 seconds Patient's skin is warm and dry. Respiratory: Airway is patent Respiratory effort is even, unlabored, Respiratory pattern is regular, symmetrical. GI: Abdomen is obese, Stools are reported to be loose, diarrhea. Last BM was February 04, 2021. Abdomen is tender to palpation Reports diarrhea, nausea, vomiting. : No signs and/or symptoms were reported regarding the genitourinary system. EENT: No signs and/or symptoms were reported regarding the EENT system. Derm: excoriation noted on pubic/groin area during bed bath Reports numbness on right side, neuropathy/numbness on BL lower extremities. Musculoskeletal: No signs and/or symptoms reported regarding the musculoskeletal system. 11:00 Reassessment: No changes from previously documented assessment. Patient and/or family jd3 updated on plan of care and expected duration. Pain level reassessed. Patient is alert, oriented x 3, equal unlabored respirations, skin warm/dry/pink. 12:00 Reassessment: No changes from previously documented assessment. Patient and/or family jd3 updated on plan of care and expected duration. Pain level reassessed. Patient is alert, oriented x 3, equal unlabored respirations, skin warm/dry/pink. 13:00 Reassessment: No changes from previously documented assessment. Patient and/or family jd3 updated on plan of care and expected duration. Pain level reassessed. Patient is alert, oriented x 3, equal unlabored respirations, skin warm/dry/pink. 14:18 Reassessment: No changes from previously documented assessment. Patient and/or family al4 updated on plan of care and expected duration. Pain level reassessed. Patient is alert, oriented x 3, equal unlabored respirations, skin warm/dry/pink. 15:29 Reassessment: No changes from previously documented assessment. Patient and/or family al4 updated on plan of care and expected duration. Pain level reassessed. Patient is alert, oriented x 3, equal unlabored respirations, skin warm/dry/pink. 16:19 Reassessment: No changes from previously documented assessment. Patient and/or family al4 updated on plan of care and expected duration. Pain level reassessed. Patient is alert, oriented x 3, equal unlabored respirations, skin warm/dry/pink. 17:18 Reassessment: Report called to KAMI Dobson. al4 Vital Signs: 09:21 BP 141 / 118; Pulse 103; Resp 20 S; Temp 98.8; Pulse Ox 93% on R/A; Weight 147.42 kg; al4 Height 5 ft. 9 in. (175.26 cm); Pain 9/10; 10:21 BP 127 / 77; jd3 10:30 BP 129 / 58; Pulse 99; Resp 25 S; Pulse Ox 93% on R/A; al4 11:00 BP 108 / 69; Pulse 102; Resp 27; Pulse Ox 93% ; jd3 11:30 BP 115 / 77; Pulse 104; Resp 25; Pulse Ox 93% ; jd3 13:30 BP 120 / 63; Pulse 89; Resp 23 S; Pulse Ox 93% on R/A; al4 15:29 BP 121 / 58; Pulse 88; Resp 26 S; Pulse Ox 93% on R/A; al4 16:00 BP 120 / 50; Pulse 88; Resp 23 S; Pulse Ox 94% on R/A; al4 17:00 BP 120 / 66; Pulse 91; Resp 21 S; Pulse Ox 90% on R/A; al4 09:21 Body Mass Index 47.99 (147.42 kg, 175.26 cm) al4 ED Course: 09:20 Patient arrived in ED. al4 09:20 Brigido Case is Primary Nurse. al4 09:21 Tim Lujan PA is PHCP. [facility] 09:21 Saturnino Thompson MD is Attending Physician. [facility] 09:26 Triage completed. al4 09:30 Patient has correct armband on for positive identification. Placed in gown. Bed in low al4 position. Call light in reach. Side rails up X2. code and test clerk on. Pulse ox on. NIBP on. Door closed. Noise minimized. Lights dimmed. ice chips given Head of bed elevated. 09:33 Maintain EMS IV. Dressing intact. Good blood return noted. Site clean \\T\\ dry. Gauge \\T\\ al 4 site: 20G Right AC . 10:58 Arm band placed on right wrist. al4 12:45 CT Abd/Pelvis - Without Contrast In Process Unspecified. EDMS 14:02 Agustin Thompson MD is Hospitalizing Provider. [facility] 17:18 No provider procedures requiring assistance completed. Patient admitted, IV remains in al4 place. Administered Medications: 10:14 Drug: Ondansetron 4 mg Route: IVP; Site: right antecubital; al4 11:14 Follow up: Response: No adverse reaction al4 10:14 Drug: NS 0.9% 500 ml Route: IV; Rate: bolus; Site: right antecubital; al4 11:14 Follow up: Response: No adverse reaction; IV Status: Completed infusion al4 Outcome: 14:02 Decision to Hospitalize by Provider. [facility] 17:18 Admitted to Med/surg accompanied by tech, Report called to KAMI Dobson al4 17:18 Condition: stable 17:18 Instructed on the need for admit, Demonstrated understanding of 18:01 Patient left the ED. al4 Signatures: Dispatcher [employer] EDMS Tim Lujan PA PA jmm Davies, Jonathon, RN RN jd3 Ledbetter, Alexis al4 Corrections: (The following items were deleted from the chart) 09:36 09:21 Chief complaint: EMS states: "patients called. patient is complaining of al4 nausea, vomiting, diarrhea. patient stated he has vomited 16 times prior to being picked up." al4 13:04 09:30 Fall Risk Fall in past 12 months (25 points). IV access (20 points). Ambulatory jd3 Aid- None/Bed Rest/Nurse Assist (0 pts). Gait- Weak (10 pts.). Mental Status- Oriented to own ability (0 pts). Total Payne Fall Scale indicates High Risk Score (45 or more points). Fall prevention measures have been instituted. Side Rails Up X 2 Placed Close to Nursing Station Frequent Obs/Assessments Occuring As available patient and family educated on Fall Prevention Program and Strategies. al4 14:17 10:00 Derm: No signs and/or symptoms reported regarding the dermatologic system. jd3 al4 15:35 10:00 Neuro: Level of Consciousness is awake, alert, obeys commands, Oriented to al4 person, place, time, situation, jd3 15:36 10:00 Derm: excoriation noted on pubic/groin area during bed bath al4 al4 17:20 10:00 GI: Abdomen is obese, Stools are reported to be loose, diarrhea. Last BM was al4 February 04, 2021. Reports diarrhea, nausea, vomiting, jd3
[2021-02-04] MEDS ORDERED: GLUCAGON 1 MG/VIAL IM PRN (16:02)
[2021-02-04] MEDS ORDERED: D50W 25 GM/50 ML SYRINGE IV PRN (16:02)
--- NOTE | 2021-02-04 16:08 | P.HP ---
Certification for Inpatient Patient admitted to: Observation With expected LOS: <2 Midnights Practitioner: I am a practitioner with admitting privileges, knowledge of patient current condition, hospital course, and medical plan of care. Services: Services provided to patient in accordance with Admission requirements found in Title 42 Section 412.3 of the Code of Federal Regulations Patient History Date of Service: 02/04/21 Reason for admission: Intractable nausea/vomiting, diarrhea History of Present Illness: 80-year-old male, PMH: Morbidly obese, IDDM2, COPD, CAD, CKD 3, diastolic CHF (HfpEF) Presents to ED due to 1 week of progressively worsening diarrhea, associated with intractable nausea/vomiting since midnight. He has chronic diarrhea for approximately 5 years, that has been very debilitating. Often times he is unable to control it/has some incontinence. Over the last week this has become worse, with almost any movement, when he coughs, when he walks he has some level of stool incontinence. He reports it has been watery as typical, multiple times throughout the day, and his has been seen has been more foul-smelling over the last week. Last night it was so severe that there was stool all over his bed. 1 week ago he had some night sweats, otherwise denies any fever/chills. The last day he has also had lower abdominal pain/suprapubic discomfort. Nothing in particular seems to worsen or alleviate the pain, the nausea/vomiting, or the diarrhea. He reports 16 episodes of emesis today. Nonbloody, nonbilious description. Denies any blood or odd color/texture of his stool. Reports he had a colonoscopy several years ago, was told it was negative/normal. In the ED, he was noted to have few episodes of emesis and diarrhea. CT did not show any acute intra-abdominal pathology/process. Afebrile, no leukocytosis. Majority of labs close to baseline. ED provider like to admit the patient for observation, as patient is still having diarrhea, and unable to hydrate himself. Patient was given Zofran and a 500 cc bolus, and reportedly was able to keep down some ice chips/sips of water. Allergies zolpidem [Zolpidem] Allergy (Verified 05/03/17 20:31) Delusions Home Medications: Atorvastatin Calcium [Lipitor*] 40 mg PO BEDTIME 01/17/15 Colchicine [Colcrys] 1 tab PO DAILY PRN 01/17/15 Enalapril Maleate [Vasotec] 1 tab PO DAILY 01/17/15 Esomeprazole Magnesium [Nexium] 20 mg PO DAILY 01/17/15 Furosemide [Lasix] 1 tab PO BID 01/17/15 Insulin Glargine,Hum.rec.anlog [Lantus] 50 unit SQ BEDTIME 01/17/15 Insulin Lispro [Humalog Kwikpen U-100] 40 unit SQ AC 01/17/15 Metoprolol Tartrate [Lopressor] 1 tab PO BID 01/17/15 Montelukast Sodium 1 tab PO DAILY 01/17/15 Pregabalin [Lyrica*] 1 cap PO TID 01/17/15 Tamsulosin HCl [Flomax] 1 cap PO DAILY 01/17/15 allopurinoL [Zyloprim*] 1 tab PO DAILY 01/17/15 Erythromycin Opth [Erythromycin Eye Ointment*] 1 leatha OPTH DAILY 05/04/17 Fluticasone [Flonase 50MCG Nasal [place]*] 2 puff DOMENICO DAILY 05/04/17 Hydrocodone Bit/Acetaminophen [Hydrocodon-Acetaminophn 10-325] 1 tab PO TID PRN 05/04/17 Nitroglycerin 0.4 mg SL SEECOM PRN 05/04/17 Budesonide/Formoterol Fumarate [Symbicort 160-4.5 Mcg Inhaler] 2 puff IH DAILY #1 hfa.aer.ad 12/05/17 - Past Medical/Surgical History Diabetic: Yes -: Gout, skin cancer -: Jackson disease, COPD, asthma, High cholesterol. -: HYPERLIPIDEMIA -: CKD - STAGE IV -: SPINAL STENOSIS -: GOUT -: OBSTRUCTIVE SLEEP APNEA -: [place] -: NEUROPATHY -: ASTHMA -: HTN -: CHF -: cardiac Stent x 3 -: Operation lower back -: Left Hand nerve damage -: skin Cancer removal back and neck -: Left arm surgery -: hernia repair -: Cholecystectomy - Family History Father -: Heart disease Notes: [place] Mother -: Heart disease, Hypertension Notes: bypass Brother -: Heart disease Notes: 4X BYPASS - Social History Smoking Status: Former smoker (Quit over 60 years ago) Alcohol use: No CD- Drugs: No Caffeine use: Yes Place of Residence: Home (With ) Physical Examination - Physical Exam General: Alert, Oriented x3, Mild distress HEENT: Sclerae nonicteric Neck: Supple Respiratory: Clear to auscultation bilaterally, Diminished (Slightly at bases bilaterally) Cardiovascular: No edema, Regular rate/rhythm, No murmurs Gastrointestinal: Soft and benign, Non-distended, Tenderness (Mild suprapubic) Musculoskeletal: No swelling, No tenderness Integumentary: No significant lesion, Other (Some chronic venous stasis changes) Neurological: Normal speech, Normal strength at 5/5 x4 extr, Normal affect - Studies Laboratory Data (last 24 hrs) 02/04/21 09:49: PT 11.9, INR 1.03 02/04/21 09:49: WBC 9.50, Hgb 15.9, Hct 48.5, Plt Count 149 L 02/04/21 09:49: Sodium 140, Potassium 4.8, BUN 25 H, Creatinine 1.76 H, Glucose 329 H, Magnesium 1.9, Total Bilirubin 0.6, AST 18, ALT 36, Alkaline Phosphatase 88, Lipase 49 L Assessment and Plan - Advance Directives Does patient have a Living Will: No Does patient have a Durable POA for Healthcare: No Physician Review Additional Text: Problem list Intractable nausea and vomiting Worsening diarrhea on top of chronic diarrhea DM2, insulin-dependent COPD CAD CKD 3 Diastolic CHF, (HFpEF) Patient feeling slightly better after 500 cc bolus in ED, able to keep down some ice chips/small sips of water Continues with diarrhea We will continue gentle IV fluids, okay to continue with clear liquid diet for p.o. challenge Start Rocephin and Flagyl Unclear etiology, possible viral versus beginning of bacterial gastroenteritis/other intra-abdominal infectious etiology Check UA Zofran as needed Accu-Cheks/sliding scale. Patient will check and get back how much insulin he takes, and the rest of his medications that he is currently unsure of dosage and what meds Check stool studies, including C. difficile. Patient is without leukocytosis. Unclear, but he may have history of C. difficile Renal function appears to be at baseline, has history of CHF, will monitor IV fluids carefully VTE: Lovenox Code: Full Dispo: Anticipate DC home in 24 to 48 hours Time Spent Managing Pts Care (In Minutes): 60
[2021-02-04] MEDS ORDERED: ACETAMINOPHEN 500 MG TAB PO PRN (16:15)
[2021-02-04] MEDS ORDERED: INSULIN -REGULAR HUMAN 50 UNIT/0.5 ML ML IV ONE (16:30)
[2021-02-04 16:41] LABS: Urine Blood Negative (Negative); Urine Glucose 2+ (Negative); Urine Protein 2+ (Negative); Urine Specific Gravity 1.025 (1.005-1.030)
[2021-02-04] MEDS ORDERED: METRONIDAZOLE 500mg IVPB 500 MG/100 ML BAG IV SCH (17:00)
[2021-02-04] MEDS ORDERED: metroNIDAZOLE 500 MG TABLET PO SCH (17:45)
[2021-02-04] MEDS: INSULIN GLARGINE 100 UNIT/ML SQ SCH (18:32)
[2021-02-04] MEDS: NA CHLORIDE 0.9% 1,000 ML IV SCH (18:33)
[2021-02-04] MEDS: INSULIN -REGULAR HUMAN 50 UNIT/0.5 ML ML SQ SCH ×2 (18:33→21:05)
[2021-02-04 18:40] VITALS: BMI 47.9
[2021-02-04] MEDS ORDERED: NA CHLORIDE 0.9% 50 ML ONE (20:29)
[2021-02-04] MEDS ORDERED: CEFTRIAXONE 1000 MG/VIAL ONE (20:29)
[2021-02-04] MEDS: CEFTRIAXONE 1,000 MG in NA CHLORIDE 0.9% 50 ML IVPB SCH (20:53)
[2021-02-04] MEDS: metroNIDAZOLE 500 MG TABLET PO SCH (20:55)
[2021-02-04] MEDS: ENOXAPARIN 40 MG/0.4 ML SQ SCH (20:58)
[2021-02-05] MEDS: NA CHLORIDE 0.9% 1,000 ML IV SCH ×2 (05:18→09:56)
[2021-02-05 05:39] LABS: Absolute Lymphocytes (CBC) 0.5 K/uL (0.7-4.9); Basophils % 0.5 % (0-1.3); Hematocrit 43.8 % (39.6-49.0); MPV 8.3 fL (7.6-11.3); RBC Red Blood Cell Count 5.03 M/uL (4.33-5.43)
[2021-02-05 05:58] LABS: Albumin 2.6 g/dL (3.4-5.0); Bilirubin Total 0.5 mg/dL (0.2-1.0); Magnesium 2.2 mg/dL (1.8-2.4); Phosphorus 2.2 mg/dL (2.5-4.9); Potassium 3.9 mmol/L (3.5-5.1); Protein, Total 6.5 g/dL (6.4-8.2)
[2021-02-05] MEDS: INSULIN -REGULAR HUMAN 50 UNIT/0.5 ML ML SQ SCH ×4 (07:30→21:00)
[2021-02-05 08:16] LABS: Urine Appearance CLOUDY (Clear); Urine Bilirubin NEGATIVE (Negative); Urine Blood NEGATIVE (Negative); Urine Color YELLOW (Yellow); Urine Glucose 1+ (Negative); Urine Protein 2+ (Negative); Urine Urobilinogen 0.2 mg/dL (0.2-1.0); Urine pH 5.5 (5.0-7.0)
[2021-02-05] MEDS: ONDANSETRON 4 MG/2 ML VIAL IV PRN ×2 (08:19→22:17)
[2021-02-05 08:27] LABS: Urine Microscopic Reflex NO UMIC
[2021-02-05] MEDS ORDERED: POTASSIUM PHOS IN 0.9 % NACL 15 MMOL/250 ML BAG IV ONE (09:00)
[2021-02-05] MEDS ORDERED: NA CHLORIDE 0.9% 50 ML ONE (09:48)
[2021-02-05] MEDS ORDERED: CEFTRIAXONE 1000 MG/VIAL ONE (09:53)
[2021-02-05] MEDS: metroNIDAZOLE 500 MG TABLET PO SCH ×2 (09:58→14:35)
[2021-02-05] MEDS: ENOXAPARIN 40 MG/0.4 ML SQ SCH (09:58)
[2021-02-05] MEDS: CEFTRIAXONE 1,000 MG in NA CHLORIDE 0.9% 50 ML IVPB SCH (09:59)
[2021-02-05] MEDS ORDERED: PNEUMOCOCCAL VACCINE 0.5 ML IMVAC ONE (10:00)
[2021-02-05] MEDS ORDERED: INFLUENZA VACCINE (for 6+ mo) 0.5 ML DOSE IMVAC ONE (10:00)
--- NOTE | 2021-02-05 12:29 | EKG ---
Test Date: 2021-02-04 Test Time: 10:00:34 Beauty Operator Apprentice: ALL MEASUREMENT RESULTS: Intervals: Rate: 103 NM: 156 QRSD: 76 QT: 328 QTc: 429 [place]: P: 45 NM: 156 QRS: 24 T: 65 INTERPRETIVE STATEMENTS: Sinus tachycardia Otherwise normal ECG Compared to ECG 12/04/2017 08:29:26 Sinus rhythm no longer present Electronically Signed On 02-05-21 12:25:56 SPECIAL MACHINE STITCHER by Praneeth Perdomo
[2021-02-05 13:02] LABS: C.diff Antigen/Toxin Ag pos : Tox pos (NEG : NEG)
--- NOTE | 2021-02-05 16:31 | P.PN ---
Subjective Date of Service: 02/05/21 Chief Complaint: Intractable nausea/vomiting, diarrhea Patient with persistent diarrhea. No vomiting since admission. He is tolerating a clear liquid diet. Physical Examination - Vital Signs Temperature: 97.0 F Blood Pressure: 142/77 Pulse: 82 Respirations: 22 Pulse Ox (%): 97 Assessment And Plan - Plan Physical examination General: Alert, Oriented x3, NAD HEENT: Sclerae nonicteric Neck: Supple Respiratory: Clear to auscultation bilaterally, Diminished breath sounds. Cardiovascular: No edema, Regular rate/rhythm, No murmurs Gastrointestinal: Soft and benign, Non-distended, no tenderness. Musculoskeletal: No swelling, No tenderness Integumentary: Bilateral venous stasis dermatitis. Neurological: Normal speech, Normal strength at 5/5 x4 extr, Normal affect Problem list Intractable nausea and vomiting. C. difficile colitis DM2, insulin-dependent COPD CAD CKD 3 Diastolic CHF, (HFpEF) Patient now tolerating clear liquid diet Diarrhea persists. Stool for C. difficile is positive. We will start oral vancomycin. Discontinue IV Rocephin and Flagyl. Continue IV hydration. Start Rocephin and Flagyl Zofran as needed for nausea. Continue Accu-Cheks/sliding scale and Lantus insulin for glucose management. Serum creatinine trended down. Continue to monitor renal function.
[2021-02-05] MEDS: INSULIN GLARGINE 100 UNIT/ML SQ SCH (17:00)
[2021-02-05] MEDS: VANCOMYCIN ORAL SOLN 250 MG/5 ML OSYR PO SCH (18:00)
[2021-02-05 22:48] VITALS: O2SAT 94
[2021-02-06] MEDS: VANCOMYCIN ORAL SOLN 250 MG/5 ML OSYR PO SCH ×3 (00:10→11:27)
[2021-02-06 06:09] LABS: Phosphorus 1.7 mg/dL (2.5-4.9); Potassium 3.6 mmol/L (3.5-5.1)
[2021-02-06] MEDS: INSULIN -REGULAR HUMAN 50 UNIT/0.5 ML ML SQ SCH (07:30)
[2021-02-06] MEDS ORDERED: POTASSIUM PHOS IN 0.9 % NACL 15 MMOL/250 ML BAG IV ONE (09:00)
--- NOTE | 2021-02-06 10:13 | P.DS ---
Admission Date: 02/05/21 Discharge Date: 02/06/21 Disposition: ROUTINE DISCHARGE Discharge Condition: FAIR Reason for Admission: Intractable nausea/vomiting, diarrhea - Problems (1) Nausea and vomiting Status: Acute (2) C. difficile colitis Status: Acute (3) Diabetes mellitus Onset Date: 12/07/17 Status: Chronic Qualifiers: (4) Obesity Onset Date: 12/07/17 Status: Chronic Qualifiers: Obesity type: due to excess calories Obesity classification: adult class 3 (BMI >= 40) Serious obesity comorbidity presence: with serious comorbidity Body mass index: BMI 45.0-49.9 Qualified Code(s): E66.01 - Morbid (severe) obesity due to excess calories; Z68.42 - Body mass index (BMI) 45.0-49.9, adult Brief History of Present Illness: 80-year-old male, PMH: Morbidly obese, IDDM2, COPD, CAD, CKD 3, diastolic CHF (HfpEF) Presents to ED due to 1 week of progressively worsening diarrhea, associated with intractable nausea/vomiting since midnight. He has chronic diarrhea for approximately 5 years, that has been very debilitating. Often times he is anurag ble to control it/has some incontinence. Over the last week this has become worse, with almost any movement, when he coughs, when he walks he has some level of stool incontinence. Symptoms associated with vomiting. In the ED, he was noted to have few episodes of emesis and diarrhea. CT did not show any acute intra-abdominal pathology/process. Afebrile, no leukocytosis. Patient admitted for further management. Hospital Course: Patient admitted to the medical floor for supportive measures. He was treated with IV fluid and antibiotics. His stool tested positive for C. difficile. Patient diagnosed with C. difficile colitis. He is prescribed oral vancomycin for 2 weeks to treat the C. difficile colitis. Patient had mild increase in serum creatinine which improved with IV fluid. Other labs unremarkable. Patient is clinically stable for discharge. Vital Signs/Physical Exam: Temp Pulse Resp BP Pulse Ox 97.6 F 78 18 143/64 H 91 02/06/21 04:00 02/06/21 04:00 02/06/21 04:00 02/06/21 04:00 02/06/21 04:00 General: Alert, In no apparent distress, Obese HEENT: Mucous membr. moist/pink Neck: JVD not distended Respiratory: Clear to auscultation bilaterally, Normal air movement Cardiovascular: Regular rate/rhythm, Normal S1 S2 Gastrointestinal: Soft and benign, Non-distended, No tenderness Musculoskeletal: No swelling Neurological: Normal strength at 5/5 x4 extr Laboratory Data at Discharge: WBC 6.80 K/uL (4.3-10.9) D 02/05/21 05:25 Hgb 14.5 g/dL (13.6-17.9) 02/05/21 05:25 Hct 43.8 % (39.6-49.0) 02/05/21 05:25 Plt Count 144 K/uL (152-406) L 02/05/21 05:25 PT 11.9 SECONDS (9.5-12.5) 02/04/21 09:49 INR 1.03 02/04/21 09:49 Sodium 143 mmol/L (136-145) 02/06/21 05:27 Potassium 3.6 mmol/L (3.5-5.1) 02/06/21 05:27 BUN 13 mg/dL (7-18) 02/06/21 05:27 Creatinine 1.34 mg/dL (0.55-1.3) H 02/06/21 05:27 Glucose 136 mg/dL (74-106) H 02/06/21 05:27 Phosphorus 1.7 mg/dL (2.5-4.9) L 02/06/21 05:27 Magnesium 2.2 mg/dL (1.8-2.4) 02/05/21 05:25 Total Bilirubin 0.5 mg/dL (0.2-1.0) 02/05/21 05:25 AST 20 U/L (15-37) 02/05/21 05:25 ALT 31 U/L (12-78) 02/05/21 05:25 Alkaline Phosphatase 72 U/L (45-117) 02/05/21 05:25 Lipase 49 U/L (73-393) L 02/04/21 09:49 Home Medications: Atorvastatin Calcium [Lipitor*] 40 mg PO BEDTIME 01/17/15 Colchicine [Colcrys] 1 tab PO DAILY PRN 01/17/15 Enalapril Maleate [Vasotec] 1 tab PO DAILY 01/17/15 Esomeprazole Magnesium [Nexium] 20 mg PO DAILY 01/17/15 Furosemide [Lasix] 1 tab PO BID 01/17/15 Insulin Glargine,Hum.rec.anlog [Lantus] 50 unit SQ BEDTIME 01/17/15 Insulin Lispro [Humalog Kwikpen U-100] 40 unit SQ AC 01/17/15 Metoprolol Tartrate [Lopressor] 1 tab PO BID 01/17/15 Montelukast Sodium 1 tab PO DAILY 01/17/15 Pregabalin [Lyrica*] 1 cap PO TID 01/17/15 Tamsulosin HCl [Flomax] 1 cap PO DAILY 01/17/15 allopurinoL [Zyloprim*] 1 tab PO DAILY 01/17/15 Erythromycin Opth [Erythromycin Eye Ointment*] 1 leatha OPTH DAILY 05/04/17 Fluticasone [Flonase 50MCG Nasal [place]*] 2 puff DOMENICO DAILY 05/04/17 Hydrocodone Bit/Acetaminophen [Hydrocodon-Acetaminophn 10-325] 1 tab PO TID PRN 05/04/17 Nitroglycerin 0.4 mg SL SEECOM PRN 05/04/17 Budesonide/Formoterol Fumarate [Symbicort 160-4.5 Mcg Inhaler] 2 puff IH DAILY #1 hfa.aer.ad 12/05/17 Vancomycin Oral Soln [Vancocin HCl*] 5 ml PO Q6HR #280 ml 02/06/21 New Medications: Vancomycin Oral Soln [Vancocin HCl*] 5 ml PO Q6HR #280 ml Diet: ADA Activity: Ad baldemar Followup: KAYE RESTREPO [Primary Care Provider] - 1-2 Weeks Time spent managing pt's care (in minutes): 33
[2021-02-06] MEDS: ENOXAPARIN 40 MG/0.4 ML SQ SCH (10:18)
[2021-02-06 10:24] VITALS: BP 156/72; TEMP 97.9
== END 2021-02-06 10:58 | disposition home or self-care (01) | DRG 372 ==
LOC: ER 09:13 → ERHOLD 15:59 → 2ND 17:40 → OBSVTOIN 02-05 17:48
PROVIDERS: ADMIT Hospitalist; ATTEND Internal Medicine
DX: A04.72 Enterocolitis due to Clostridium difficile, not specified as recurrent (principal); N17.9 Acute kidney failure, unspecified; I13.0 Hypertensive heart and chronic kidney disease with heart failure and stage 1 through stage 4 chronic kidney disease, or unspecified chronic kidney disease; I50.32 Chronic diastolic (congestive) heart failure; Z68.42 Body mass index [BMI] 45.0-49.9, adult; N18.30 Chronic kidney disease, stage 3 unspecified; E11.22 Type 2 diabetes mellitus with diabetic chronic kidney disease; E11.40 Type 2 diabetes mellitus with diabetic neuropathy, unspecified; I25.10 Atherosclerotic heart disease of native coronary artery without angina pectoris; J44.9 Chronic obstructive pulmonary disease, unspecified; E66.9 Obesity, unspecified; E86.0 Dehydration; E78.5 Hyperlipidemia, unspecified; M10.9 Gout, unspecified; I25.2 Old myocardial infarction; Z88.8 Allergy status to other drugs, medicaments and biological substances; Z79.4 Long term (current) use of insulin; Z79.899 Other long term (current) drug therapy; Z85.828 Personal history of other malignant neoplasm of skin; Z95.5 Presence of coronary angioplasty implant and graft; Z90.49 Acquired absence of other specified parts of digestive tract; Z87.891 Personal history of nicotine dependence; Z20.822 Contact with and (suspected) exposure to COVID-19
CPT/HCPCS: 36415; 74176; 80048; 80053; 80076; 81003; 82947; 83631; 83690; 83735; 83880; 84100; 84145; 84484; 85025; 85610; 86140; 87040; 87045; 87046; 87177; 87209; 87324; 87449; 89055; 93005; 94760; 96361; 96374; 99285; G0378; J1650; J2405; J7030; J7040; U0003

== ENCOUNTER 2021-03-02 17:18 | Emergency (ER) | payer OTHER ==
--- OUTSIDE RECORDS SUMMARY | 2021-03-02 17:21 | XMS REPORT | Continuity of Care Document ---
:1940 Author Organization [facility] t Address [address] [place] [address] [address] [place] [address] Care Team Providers Name Role Phone Monique BROWN Primary Care Physician Unavailable Monique BROWN Attending Clinician Unavailable Monique Brown MD Attending Clinician Monique Dowling MD Attending Clinician Shira HERNANDEZ Attending Clinician Payers Payer Name Policy Type Policy Number Effective Date Expiration Date S ource Problems Condition Condition Condition Status Onset Resolution Last Treating Co mments Source Name Details Category Date Date Treatment Clinician Date Troponin I Troponin I Disease Active 2020-0 U nivers above above 4-04 [place] 00 [place] COPD COPD Disease Active 2020-0 Univers exacerbati exacerbati 4-04 it y of on on 00:00: [place] 00 Medical Branch Coronary Coronary Disease Active 2020-0 Unive rs artery artery 4-04 ity of disease disease 00:00: [place] involving involving 00 Medi [place] Branch coronary coronary artery of artery of [place] heart heart without without angina angina pectoris pectoris 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-04 ity of kidney kidney 00:00: [place] disease disease 00 Medical Branch Dyspnea Dyspnea Disease Active 2020-0 Univers 4-03 ity of 00:00: [place] 00 Medical Branch Chronic Chronic Disease Active 2018-0 Univers diastolic diastolic 8-14 ity of congestive congestive [place] heart heart 00 Medical failure failure Branch Herniated Herniated Disease Active Uni vers disc disc 3-10 ity of 00:00: [place] 00 Medical Branch 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 00:[place] without s without 00 Medi johnathan myelopathy myelopathy Br anch Radicular Radicular Disease Active Uni vers pain of pain of 5-19 ity of lower lower 00:00: [place] extremity extremity 00 Medi johnathan Branch Chronic Chronic Disease Active Univers pain pain 5-19 ity of disorder disorder 00:00: [place] [facility] Neuropathy Neuropathy Disease Active U nivers due to due to 5-19 ity of secondary secondary 00:00[place] diabetes diabetes 00 Medica l Branch Physical Physical Disease Active Unive rs deconditio deconditio 5-19 it y of dayami dayami 00:00: Medical Branch Chronic Chronic Disease Active Univers anticoagul anticoagul 5-19 it y of ation ation 00:00: Medical Branch Facet Facet Disease Active Univers arthritis arthritis 5-19 ity of of of 00:00: [place] lumbosacra lumbosacra 00 Me dical l region l region Branch Spinal Spinal Disease Active Univers stenosis, stenosis, 5-19 ity of lumbar lumbar 00:00: [place] region, region, 00 Medical without without Branch neurogenic neurogenic claudicati claudicati on on Enthesopat Enthesopat Disease Active U nivers hy, spinal hy, spinal 5-19 it y of 00:00: Medical Branch Asthma Asthma Disease Active Univers 5-10 ity of 00:00: [place] 00 Medical Branch Congestive Congestive Disease Active 2011-02 Overview : Univers heart heart 2-19 Formattin ity of failure failure 00:00: g of this note Medical might be Branch different from the original. ICD10 Diagnosis Term Destination Specialist Utility Gout Gout Disease Active 2011-02 Univers 0-19 ity of 00:00: [place] Medical [facility] Backache Backache Disease Active Overview: Un jb 4-20 Formattin ity of 00:00: g of this note Medical might be Branch different from the original. ICD10 Diagnosis Term Destination Specialist Utility Essential Essential Disease Active Uni vers hypertensi hypertensi 1-23 it y of on, benign on, benign 00:[place] Esophageal Esophageal Disease Active U nivers dysphagia dysphagia 5-03 ity of 00:00: [place] 00 Medical Branch DELMY DELMY Disease Active Univers (obstructi (obstructi 1-31 it y of ve sleep ve sleep 00:00: [place] apnea) apnea) 00 Medical Branch Hereditary Hereditary Disease Active Overview : Univers and and 7-12 Formattin ity of idiopathic idiopathic 00:00: g of this [place] peripheral peripheral 00 note Me dical neuropathy neuropathy might be Branch different from the original. ICD10 Diagnosis Term Destination Specialist Utility Chest pain Chest pain Disease Active Overview : Univers 4-30 Formattin ity of 00:00: g of this [place] note Medical might be Branch different from the original. ICD10 Diagnosis Term Destination Specialist Utility HLD HLD Disease Active Overview: Univer s (hyperlipi (hyperlipi 4-29 Formattin ity of demia) demia) 00:00: g of this [place] note Medical might be Branch different from the original. ICD10 Diagnosis Term Destination Specialist Utility Chronic Chronic Disease Active Univers kidney kidney 4-29 ity of disease, disease, 00:00: [place] stage II stage II 00 Medica l (mild) (mild) Branch Coronary Coronary Disease Active Unive rs atheroscle atheroscle 4-29 it y of rosis of rosis of 00:00: [place] 00 Medical coronary coronary Branch artery artery Spinal Spinal Disease Active Univers stenosis stenosis 4-29 ity of of lumbar of lumbar 00:00[place] region region 00 Medical without without Branch neurogenic neurogenic claudicati claudicati on on Skin Skin Disease Active [facility] cancer cancer ity of [facility] 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 [facility] Allergies, Adverse Reactions, Alerts Allergy Allergy Status Severity Reaction(s) Onset Inactive Treating Comm ents Source Name Type Date Date Clinician Zolpidem Propensi Active Nausea Only U nivers ty to 4-08 ity of adverse 00:00: [place] reaction 00 Medical s to Branch drug ZOLPIDEM DRUG Active NAUSEA ONLY Uni vers INGREDI 4-08 ity of 00:00: [place] 00 Medical Branch Social History Social Habit Start Date Stop Date Quantity Comments Source History of Cigarette Smoker Universi ty of tobacco use [facility] Alcohol intake 2020-11-22 2020-11-22 Current University of 00:00:00 00:00:00 non-drinker of [facility] alcohol (finding) [place] Tobacco Comment 2017-10-06 2017-10-06 quit 50 years ago Un iversity of 00:00:00 00:00:00 [facility] Sex Ass[birth year] At [birth year] Universit y of 00:00:00 00:00:00 [facility] Smoking Status Start Date Stop Date Source Former smoker 2020-10-01 00:00:00 2020-10-01 00:00:00 [facility] Medications Ordered Filled Start Stop Current Ordering Indication Dosage Frequency Signature Comments Components Source Medication Medication Date Date Medication? Clinician (SIG) Name Name METOPROLOL 2020-02 Yes [id number] TAKE 1 Un jb TARTRATE 50 2-15 TABLET BY ity of mg tablet 00:00: MOUTH [place] 00 TWICE Medical DAILY Branch METOPROLOL 2020-02 Yes [id number] TAKE 1 Un jb TARTRATE 50 2-15 TABLET BY ity of mg tablet 00:00: MOUTH [place] 00 TWICE Medical DAILY Branch NOVOLOG 2020-02 Yes INJECT Univers FLEXPEN 2-10 SUBCUTANEO ity of U-100 00:00: US 40 [place] INSULIN 100 00 UNITS Medical unit/mL (3 THREE Branch mL) TIMES injection DAILY BEFORE A MEAL NOVOLOG 2020-02 Yes INJECT Univers FLEXPEN 2-10 SUBCUTANEO ity of U-100 00:00: US 40 [place] INSULIN 100 00 UNITS Medical unit/mL (3 THREE Branch mL) TIMES injection DAILY BEFORE A MEAL insulin 2020-02 Yes [id number] INJECT 40 Univers lispro 2-08 UNITES ity of (HUMALOG 00:00: SUBCUTANEO [place] KWIKPEN 00 US THREE Medical INSULIN) TIMES Branch 100 unit/mL DAILY pen BEFORE A injector MEAL Insulin 2020-02 Yes [id number] INJECT 50 Univers Glargine 2-08 UNITS ity of (LANTUS 00:00: UNDER THE [place] SOLOSTAR 00 SKIN EVERY Medic al U-100 NIGHT AT Branch INSULIN) BEDTIME. 100 unit/mL (3 mL) injection insulin 2020-02 Yes [id number] INJECT 40 Univers lispro 2-08 UNITES ity of (HUMALOG 00:00: SUBCUTANEO [place] KWIKPEN 00 US THREE Medical INSULIN) TIMES Branch 100 unit/mL DAILY pen BEFORE A injector MEAL insulin 2020-02 Yes [id number] INJECT 40 Univers lispro 2-08 UNITES ity of (HUMALOG 00:00: SUBCUTANEO [place] KWIKPEN 00 US THREE Medical INSULIN) TIMES Branch 100 unit/mL DAILY pen BEFORE A injector MEAL Insulin 2020-02 Yes [id number] INJECT 50 Univers Glargine 2-08 UNITS ity of (LANTUS 00:00: UNDER THE [place] SOLOSTAR 00 SKIN EVERY Medic al U-100 NIGHT AT Branch INSULIN) BEDTIME. 100 unit/mL (3 mL) injection insulin 2020-02 Yes [id number] INJECT 40 Univers lispro 2-08 UNITES ity of (HUMALOG 00:00: SUBCUTANEO [place] KWIKPEN 00 US THREE Medical INSULIN) TIMES Branch 100 unit/mL DAILY pen BEFORE A injector MEAL Lancing Yes [id number] Use as Uni vers Device with 9 directed. ity of Lancets 00:00: June [place] (ONE TOUCH 00 substitute Med ical DELICA) Kit brand Branch preferred by insurance Blood-Gluco Yes [id number] Use as Univers se Meter 9 directed. ity of (ONETOUCH 00:00: June [place] VERIO FLEX 00 substitute Med ical START) Kit brand Branch preferred by insurance blood sugar Yes [id number] Test 4x Univers diagnostic 9 daily for ity of (ONETOUCH 00:00: diagnosis [place] VERIO TEST 00 code Medical STRIPS) E11.9. June Branch strip substitute brand preferred by insurance Lancing Yes [id number] Use as Uni vers Device with 929 directed. ity of Lancets 00:00: June [place] (ONE TOUCH 00 substitute Med ical DELICA) Kit brand Branch preferred by insurance Blood-Gluco Yes [id number] Use as Univers se Meter 9 directed. ity of (ONETOUCH 00:00: June [place] VERIO FLEX 00 substitute Med ical START) Kit brand Branch preferred by insurance blood sugar Yes [id number] Test 4x Univers diagnostic 9-29 daily for ity of (ONETOUCH 00:00: diagnosis [place] VERIO TEST 00 code Medical STRIPS) E11.9. May Branch strip substitute brand preferred by insurance allopurinoL Yes [id number] 100mg Take 1 Univers 100 mg 9-15 tablet by ity of tablet 00:00: mouth [place] 00 daily. Medical Branch montelukast Yes [id number] 10mg Take 1 Univers 10 mg 9-15 tablet by ity of tablet 00:00: mouth [place] 00 daily. Medical Branch fluticasone Yes [id number] 1{puff} Inhale 1 Univers propion-duc 9-15 Puff every it y of meteroL 00:00: 12 [place] (ADVAIR 00 (twelve) Medical DISKUS) hours. Branch 250-50 mcg/dose inhalation disk albuterol-i Yes [id number] 1{puff} Inhale 1 Univers pratropium 9-15 Puff 4 ity of 20-100 00:00: (four) [place] mcg/actuati 00 times Medical on inhaler daily. Branch aspirin 81 Yes [id number] 81mg Take 1 Univers mg chewable 9-15 tablet by ity of tablet 00:00: mouth [place] 00 daily. Medical Branch nitroglycer Yes [id number] .4mg Place 1 Univers in 9-15 tablet ity of (NITROSTAT) 00:00: under the [place] 0.4 mg 00 tongue Medical sublingual every 5 Branc h tablet (five) minutes as needed for Chest pain. enalapril Yes [id number] 10mg Take 1 Uni vers 10 mg 9-15 tablet by ity of tablet 00:00: mouth [place] 00 daily. Medical Branch atorvastati Yes [id number] 40mg Take 1 Univers n 40 mg 9-15 tablet by ity of tablet 00:00: mouth at [place] 00 bedtime. Medical Branch pregabalin Yes [id number] 75mg Take 1 Univers (LYRICA) 75 9-15 capsule by it y of mg capsule 00:00: mouth 3 [place] 00 (three) Medical times Branch daily. esomeprazol Yes [id number] TAKE ONE Univers e 20 mg 9-15 CAPSULE BY ity of capsule 00:00: MOUTH [place] 00 EVERY DAY Medical Branch escitalopra Yes [id number] 10mg Take 1 Univers m oxalate 9-15 tablet by ity o f 10 mg 00:00: mouth [place] tablet 00 daily. Medical Branch tamsulosin Yes [id number] .4mg Take 1 Univers 0.4 mg 24 9-15 9102 capsule by ity of hr capsule 00:00: mouth [place] 00 daily. Medical Branch finasteride Yes [id number] 5mg Take 1 Univers 5 mg tablet 9-15 9102 tablet by ity of 00:00: mouth [place] 00 daily. Medical Branch allopurinoL Yes [id number] 100mg Take 1 Univers 100 mg 9-15 tablet by ity of tablet 00:00: mouth [place] 00 daily. Medical Branch montelukast Yes [id number] 10mg Take 1 Univers 10 mg 9-15 tablet by ity of tablet 00:00: mouth [place] 00 daily. Medical Branch fluticasone Yes [id number] 1{puff} Inhale 1 Univers propion-duc 9-15 Puff every it y of meteroL 00:00: 12 [place] (ADVAIR 00 (twelve) Medical DISKUS) hours. Branch 250-50 mcg/dose inhalation disk albuterol-i Yes [id number] 1{puff} Inhale 1 Univers pratropium 9-15 Puff 4 ity of 20-100 00:00: (four) [place] mcg/actuati 00 times Medical on inhaler daily. Branch aspirin 81 Yes [id number] 81mg Take 1 Univers mg chewable 9-15 tablet by ity of tablet 00:00: mouth [place] 00 daily. Medical Branch nitroglycer Yes [id number] .4mg Place 1 Univers in 9-15 tablet ity of (NITROSTAT) 00:00: under the [place] 0.4 mg 00 tongue Medical sublingual every 5 Branc h tablet (five) minutes as needed for Chest pain. enalapril Yes [id number] 10mg Take 1 Uni vers 10 mg 9-15 tablet by ity of tablet 00:00: mouth [place] 00 daily. Medical Branch atorvastati Yes [id number] 40mg Take 1 Univers n 40 mg 9-15 tablet by ity of tablet 00:00: mouth at [place] 00 bedtime. Medical Branch pregabalin Yes [id number] 75mg Take 1 Univers (LYRICA) 75 9-15 capsule by it y of mg capsule 00:00: mouth 3 [place] 00 (three) Medical times Branch daily. esomeprazol Yes [id number] TAKE ONE Univers e 20 mg 9-15 CAPSULE BY ity of capsule 00:00: MOUTH [place] 00 EVERY DAY Medical Branch escitalopra Yes [id number] 10mg Take 1 Univers m oxalate 9-15 tablet by ity o f 10 mg 00:00: mouth [place] tablet 00 daily. Medical Branch tamsulosin Yes [id number] .4mg Take 1 Univers 0.4 mg 24 9-15 9102 capsule by ity of hr capsule 00:00: mouth [place] 00 daily. Medical Branch finasteride Yes [id number] 5mg Take 1 Univers 5 mg tablet 9-15 9102 tablet by ity of 00:00: mouth [place] 00 daily. Medical Branch BD MATIAS 2ND Yes [id number] INJECT Univers GEN PEN 3-21 UNDER THE ity of NEEDLE 32 00:00: SKIN THREE [place] gauge x 00 TIMES Medical 5/32" Ndle DAILY Branch BD MATIAS 2ND Yes [id number] INJECT Univers GEN PEN 3-21 UNDER THE ity of NEEDLE 32 00:00: SKIN THREE [place] gauge x 00 TIMES Medical 5/32" Ndle DAILY Branch blood sugar Yes [id number] 3 Un jb diagnostic 2-05 times/day ity of (ONETOUCH 00:00: [place] VERIO TEST 00 Medical STRIPS) Branch strip fluticasone Yes [id number] 2{spray Use 2 Univers propionate 2-05 } Sprays in ity of 50 00:00: each [place] mcg/actuati 00 nostril Medic al on nasal daily. Branch spray blood sugar Yes [id number] 3 Un jb diagnostic 2-05 times/day ity of (ONETOUCH 00:00: [place] VERIO TEST 00 Medical STRIPS) Branch strip fluticasone Yes [id number] 2{spray Use 2 Univers propionate 2-05 } Sprays in ity of 50 00:00: each [place] mcg/actuati 00 nostril Medic al on nasal daily. Branch spray Insulin 2018- Yes [id number] Before Univ ers [place], 1-11 meals, dx ity of Disposable, 00:00: code E11.9 [place] 31 gauge x 00 Pen needle Med ical 1/4" Ndle humalog Branch quick pen Insulin 2018- Yes [id number] Before Univ ers [place], 1-11 meals, dx ity of Disposable, 00:00: code E11.9 [place] 31 gauge x 00 Pen needle Med ical 1/4" Ndle humalog Branch quick pen COLCRYS 0.6 2019-0 Yes [id number] .6mg TAKE 1 Univers mg tablet 2-19 TABLET BY ity o f 00:00: MOUTH [place] 00 DAILY Medical Branch COLCRYS 0.6 2019-0 Yes [id number] .6mg TAKE 1 Univers mg tablet 2-19 TABLET BY ity o f 00:00: MOUTH [place] DAILY [facility] Branch Immunizations Ordered Filled Immunization Date Status Comments [facility] Immunization Name Name SARS-COV-2 COVID-19 2020-11-07 Completed Unive rsity of PFIZER VACCINE 00:00:00 [facility] [place] [facility] SARS-COV-2 COVID-19 2020-11-07 Completed Unive rsity of PFIZER VACCINE 00:00:00 [facility] [place] [facility] SARS-COV-2 COVID-19 2020-04-19 Completed Unive rsity of PFIZER VACCINE 00:00:00 [facility] [place] [facility] SARS-COV-2 COVID-19 2020-04-19 Completed Unive rsity of PFIZER VACCINE 00:00:00 [facility] [place] [facility] SARS-COV-2 COVID-19 2020-03-21 Completed Unive rsity of PFIZER VACCINE 00:00:00 [facility] [place] [facility] SARS-COV-2 COVID-19 2020-03-21 Completed Unive rsity of PFIZER VACCINE 00:00:00 [facility] [place] [facility] Influenza High Dose 2019-05-29 Completed Unive rsity of 00:00:00 [facility] Influenza High Dose 2019-05-29 Completed Unive rsity of 00:00:00 [facility] Influenza High Dose 2017-02-10 Completed Unive rsity of 00:00:00 [facility] Influenza High Dose 2017-02-10 Completed Unive rsity of 00:00:00 [facility] Influenza High Dose 2015-12-25 Completed Unive rsity of 00:00:00 [facility] Influenza High Dose 2015-12-25 Completed Unive rsity of 00:00:00 [facility] Influenza High Dose 2015-03-20 Completed Unive rsity of 00:00:00 [facility] TDAP 2015-03-20 Completed University of 00:00:00 [facility] Influenza High Dose 2015-03-20 Completed Unive rsity of 00:00:00 [facility] TDAP 2015-03-20 Completed University of 00:00:00 [facility] Pneumococcal 13 2014-08-01 Completed Universit y of Conjugate, PCV13 00:00:00 [facility] dical (Prevnar 13) Branch Pneumococcal 13 2014-08-01 Completed Universit y of Conjugate, PCV13 00:00:00 [facility] dical (Prevnar 13) Branch Influenza High Dose 2013-11-29 Completed Unive rsity of 00:00:00 [facility] Influenza High Dose 2013-11-29 Completed Unive rsity of 00:00:00 [facility] Influenza High Dose 2013-04-07 Completed Unive rsity of 00:00:00 [facility] Influenza High Dose 2013-04-07 Completed Unive rsity of 00:00:00 [facility] Influenza Virus 2009-12-24 Completed Universit y of Vaccine 00:00:00 [facility] Influenza Virus 2009-12-24 Completed Universit y of Vaccine 00:00:00 [facility] Pneumococcal 2008-06-23 Completed University o f Polysaccharide, 00:00:00 [place] Med ical PPSV23 (PNEUMOVAX) Branch Pneumococcal 2008-06-23 Completed University o f Polysaccharide, 00:00:00 [facility] ical PPSV23 (PNEUMOVAX) Branch Procedures This patient has no known procedures. Encounters Start End Encounter Admission Attending Care Care Encounter Source Date/Time Date/Time Type Type Clinicians Facility Department ID 2021-03-08 2021-03-08 Outpatient [facility] [id number] Univers 15:45:00 15:45:00 , ESPERANZA [id number] it y of [facility] 2021-02-19 2021-02-19 Telephone Ramsey MARTÍNEZ [id number] Univers 00:00:00 00:00:00 , [place] PEDIATRIC [id number] ity of [place] [id number] [place] [id number] [address] 2021-02-06 2021-02-06 Telephone Ramsey MARTÍNEZ [id number] [facility] 00:00:00 00:00:00 , [place] PEDIATRIC [id number] ity [id number] [id number] [address] 2020-06-16 2020-06-16 [facility] [id number] 00:00:00 00:00:00 Ronny Amaya PRIMARY [id number] CARE [id number] PAVILLION [id number] 2020-06-13 2020-06-13 [facility]ly [facility] [id number] 00:00:00 00:00:00 Ronny Pena HEALTH [id number] CLINICS [id number] 2020-06-12 2020-06-12 [facility]ly [facility] [id number] 00:00:00 00:00:00 Ronny Pena HEALTH [id number] CLINICS [id number] [id number] 2020-06-03 2020-06-03 [facility] [id number] 00:00:00 00:00:00 Ronny Pena HEALTH [id number] CLINICS [id number] [id number] 2020-05-11 2020-05-11 [facility] [id number] 00:00:00 00:00:00 Ronny Amaya PRIMARY [id number] CARE [id number] PAVILLION [id number] 2020-04-10 2020-04-10 Refill [facility] [id number] 00:00:00 00:00:00 Ronny Amaya PRIMARY [id number] CARE [id number] PAVILLION [id number] 2020-03-28 2020-03-28 Refill [facility], [facility] [id number] 00:00:00 00:00:00 Ronny Amaya PRIMARY [id number] CARE [id number] PAVILLION [id number] 2020-03-27 2020-03-27 Refill [facility] [id number] 00:00:00 00:00:00 Ronny Amaya PRIMARY [id number] CARE [id number] PAVILLION [id number] 2020-03-25 2020-03-25 [facility] [id number] 00:00:00 00:00:00 A[place]ino [place] [id number] [place] [id number] Professio [phone] [facility] 204 [facility] Results This patient has no known results.
[2021-03-02] MEDS ORDERED: METHYLPREDNISOLONE 125 MG INJ ONE (18:17)
[2021-03-02] MEDS ORDERED: HYDROCODONE/CHLORPHEN 5 ML/OSYR ONE (18:18)
[2021-03-02] MEDS ORDERED: ALBUTEROL 2.5 MG/3 ML NEB SOL ONE (18:18)
[2021-03-02] MEDS ORDERED: IPRATROPIUM BROM 0.5MG/2.5ML ONE (18:18)
[2021-03-02 18:38] LABS: Absolute Lymphocytes (CBC) 0.9 K/uL (0.7-4.9); Hematocrit 44.1 % (39.6-49.0); Lymphocytes % 16.3 % (15.3-44.8); MPV 8.6 fL (7.6-11.3); RBC Red Blood Cell Count 5.03 M/uL (4.33-5.43)
--- NOTE | 2021-03-02 18:38 | RAD REPORT ---
EXAM DESCRIPTION: RAD - Chest Single View - 03/02/2021 6:29 pm CLINICAL HISTORY: SOB Chest pain. COMPARISON: Chest Single View dated 12/04/2017; Chest Single View dated 05/03/2017; Chest Single View dated 08/05/2016; Chest Single View dated 08/03/2016 FINDINGS: Portable technique limits examination quality. The lungs are grossly clear. The heart is upper limit of normal in size. No displaced fractures. IMPRESSION: No acute intrathoracic process suspected.
[2021-03-02 18:43] LABS: Protime INR 0.99
[2021-03-02 19:36] LABS: SARS-COV-2 RT PCR POSITIVE (NEGATIVE)
[2021-03-02 21:30] LABS: ALT/SGPT 42 U/L (12-78); Alkaline Phosphatase 90 U/L (45-117); BUN Blood Urea Nitrogen 25 mg/dL (7-18); Bicarbonate 23 mmol/L (21-32); Bilirubin Direct < 0.1 mg/dL (0-0.2); Bilirubin Total 0.3 mg/dL (0.2-1.0); Glucose Level 250 mg/dL (74-106); NT PRO-BNP 268 pg/mL (<450); Protein, Total 7.3 g/dL (6.4-8.2); Sodium Level 138 mmol/L (136-145); Troponin (Emerg Dept Use Only) < 0.02 ng/mL (0.0-0.045)
[2021-03-02 21:31] LABS: AST/SGOT 28 U/L (15-37); Magnesium 2.4 mg/dL (1.8-2.4); Potassium 4.5 mmol/L (3.5-5.1)
--- NOTE | 2021-03-02 21:49 | ER ---
Nurse's Notes [facility] Name: Erika Sharif Age: 80 yrs Sex: Male : 1940 Arrival Date: 03/02/2021 Time: 17:27 Bed 3 Private MD: Diagnosis: Coronavirus infection, unspecified;COPD/ Chronic obstructive pulmonary disease, unspecified Presentation: 03/02 17:58 Chief complaint: Patient states: [place] got a cough and I can hardly breath jg9 anymore-ongoing since Feb 04-hx copd, chf. COVID vaccination up to date, no flu or pnu vaccination. Coronavirus screen: Vaccine status: Patient reports receiving the 2nd dose of the covid vaccine. Patient reports receiving the 1st dose of the Covid vaccine. Ebola Screen: Patient negative for fever greater than or equal to 101.5 degrees Fahrenheit, and additional compatible Ebola Virus Disease symptoms Patient denies exposure to infectious person. Patient denies travel to an Ebola-affected area in the 21 days before illness onset. Initial Sepsis Screen: Does the patient meet any 2 criteria? No. Patient's initial sepsis screen is negative. Does the patient have a suspected source of infection? No. Patient's initial sepsis screen is negative. Risk Assessment: Do you want to hurt yourself or someone else? Patient reports no desire to harm self or others. Onset of symptoms is unknown. 17:58 Method Of Arrival: Wheelchair j9 17:58 Acuity: PEEWEE 3 jg9 Triage Assessment: 18:03 General: Appears in no apparent distress. Behavior is calm, cooperative. Respiratory: jg9 Breath sounds are diminished bilaterally. 18:03 Respiratory: the patient has mild shortness of breath. jg9 Historical: - Allergies: 18:01 zolpidem; jg9 - PMHx: 18:01 CHF; COPD; Diabetes - IDDM; kidney failure; Myocardial infarction; neuropathy; pleural jg9 effusion; - PSHx: 18:01 arm; back; Cholecystectomy; jg9 - Immunization history:: Adult Immunizations up to date, Client reports receiving the 2nd dose of the Covid vaccine, Client reports receiving the 1st dose of the Covid vaccine, Last tetanus immunization: Pneumococcal vaccine is up to date, Flu vaccine is up to date. - Social history:: Smoking status: Patient/guardian denies using tobacco, the patient reports quitting approximately 60 years ago. Screenin:02 Abuse screen: Denies threats or abuse. Denies injuries from another. Nutritional jg9 screening: No deficits noted. Tuberculosis screening: No symptoms or risk factors identified. Fall Risk Fall in past 12 months (25 points). Assessment: 18:02 Pain: Denies pain. Respiratory: Airway. Respiratory: Reports shortness of breath cough jg9 that is ongoing for some time. 18:03 Respiratory: Respiratory effort is even, unlabored. jg9 18:26 General: Appears uncomfortable, obese, unkempt, Behavior is calm, cooperative, cb5 appropriate for age. Pain: Denies pain. Neuro: No deficits noted. Cardiovascular: Reports fatigue, shortness of breath, Rhythm is regular. Respiratory: Breath sounds with rhonchi in right upper lobe Onset: The symptoms/episode began/occurred patient reports having shortness of breath off and on for three weeks, GI: No signs and/or symptoms were reported involving the gastrointestinal system. : No signs and/or symptoms were reported regarding the genitourinary system. EENT: No deficits noted. Derm: patient has eccymosis, redness johan arms, with poor skin turgor. Musculoskeletal: Reports weakness in right leg and left leg. 18:34 Reassessment: pt awake, alert, in no acute resp distress at this time. Call light is cb5 within reach, side rials up x2, bed in low position. Pts family member at bedside with pt. 19:10 Reassessment: Patient and/or family updated on plan of care and expected duration. Pain mk level reassessed. Patient is alert, oriented x 3, equal unlabored respirations, skin warm/dry/pink. Neuro: Level of Consciousness is awake, alert, obeys commands, Oriented to person, place, time, situation, Cable Tender are equal bilaterally Moves all extremities. Gait is unsteady, at baseline. Speech is normal, Facial symmetry appears normal. Cardiovascular: Heart tones S1 S2 present Capillary refill < 3 seconds Clubbing of nail beds is present JVD is absent Patient's skin is warm and dry. Pulses are 2+ in right radial artery, right dorsalis pedis artery, left radial artery and left dorsalis pedis artery Rhythm is regular. Respiratory: Airway Respiratory effort is Respiratory pattern is regular, symmetrical, reports feeling 'less tight' and much better. Ambulated w/ pulse ox, SpO2 did not drop below 92%. GI: Abdomen is flat, Abd is soft and non tender X 4 quads. : : No signs and/or symptoms were reported regarding the genitourinary system. Derm: Skin is intact, is fragile, Skin is dry, Skin is pink, Skin temperature is warm. Musculoskeletal: Capillary refill < 3 seconds, Range of motion: intact in all extremities. 20:10 Reassessment: Patient and/or family updated on plan of care and expected duration. Pain mk level reassessed. Patient is alert, oriented x 3, equal unlabored respirations, skin warm/dry/pink. Patient states feeling better. 21:10 Reassessment: Patient and/or family updated on plan of care and expected duration. Pain mk level reassessed. Patient is alert, oriented x 3, equal unlabored respirations, skin warm/dry/pink. Patient states feeling better. discussed w/ Marinas regarding pt ambulation and pt feeling better after duoneb, pt taught on monitoring O2 status at home . 22:06 Reassessment: Patient and/or family updated on plan of care and expected duration. Pain mk level reassessed. Patient is alert, oriented x 3, equal unlabored respirations, skin warm/dry/pink. Patient states feeling better. Vital Signs: 17:58 BP 112 / 57; Pulse 72; Resp 24 S; Temp 98.8(TE); Pulse Ox 94% on R/A; Weight 147.42 kg j9 (R); Height 5 ft. 9 in. (175.26 cm) (R); 18:25 BP 97 / 64; Pulse 73; Resp 20; Temp 98.6; Pulse Ox 96% ; cb5 19:10 BP 115 / 63; Pulse 95; Resp 20; Pulse Ox 92% on R/A; mk 20:10 BP 128 / 59; Pulse 95; Resp 18; Pulse Ox 92% on R/A; mk 21:48 BP 132 / 68; Pulse 86; Resp 16; Pulse Ox 91% on R/A; sm5 22:06 Temp 98.9; mk 17:58 Body Mass Index 47.99 (147.42 kg, 175.26 cm) jg9 [place] Coma Score: 19:10 Eye Response: spontaneous(4). Verbal Response: oriented(5). Motor Response: obeys mk commands(6). Total: 15. 20:10 Eye Response: spontaneous(4). Verbal Response: oriented(5). Motor Response: obeys mk commands(6). Total: 15. 20:10 Eye Response: spontaneous(4). Verbal Response: oriented(5). Motor Response: obeys mk commands(6). Total: 15. 22:05 Eye Response: spontaneous(4). Verbal Response: oriented(5). Motor Response: obeys mk commands(6). Total: 15. ED Course: 17:27 Patient arrived in ED. as 18:01 Triage completed. jg9 18:03 Patient has correct armband on for positive identification. jg9 18:03 Arm band placed on. jg9 18:06 Lc Gibson NP is PHCP. pm1 18:06 Maricarmen Rhoades MD is Attending Physician. pm1 18:07 Francis Orta, KAMI is Primary Nurse. bp 18:23 Basic Metabolic Panel Sent. bp 18:23 COVID-19/FLU A+B (Document "Date of Onset" if Symptomatic) Sent. bp 18:23 Inserted saline lock: 20 gauge in right antecubital area, using aseptic technique. bp Blood collected. 18:29 XRAY Chest (1 view) In Process Unspecified. EDMS 18:33 PT-INR Sent. cb5 18:33 NT PRO-BNP Sent. cb5 18:33 Magnesium Sent. cb5 18:33 LFT's Sent. cb5 18:33 CBC with Diff Sent. cb5 19:13 COVID-19/FLU A+B Sent. mk 19:13 Troponin (emerg Dept Use Only) Sent. mk 19:13 NT PRO-BNP Sent. mk 19:13 Magnesium Sent. mk 19:13 LFT's Sent. mk 19:17 Primary Nurse role handed off by Francis Orta, KAMI cs9 19:34 Elizabeth Smith, KAMI is Primary Nurse. mk 22:07 No provider procedures requiring assistance completed. IV discontinued, intact, mk bleeding controlled, No redness/swelling at site. Pressure dressing applied. Administered Medications: 18:23 Drug: Albuterol - atroVENT (ipratropium) (3:1) (2.5 mg - 0.5 mg) 3 ml Route: Nebulizer; bp 18:23 Drug: SOLU-Medrol (methylPrednisoLONE) 125 mg Route: IVP; Site: right antecubital; bp 18:23 Drug: Tussionex Pennkinetic ER (chlorpheniramine-hydrocodone) Suspension 5 ml Route: PO;bp 22:05 Drug: Rocephin (cefTRIAXone) 1 grams Route: IV; Rate: calculated rate; Site: right sm5 antecubital; Outcome: 21:49 Discharge ordered by . pm1 22:08 Discharged to home with significant other. 22:08 Condition: improved 22:08 Discharge instructions given to patient, significant other. 22:08 Patient left the ED. Signatures: Dispatcher [employer] EDMS Cheyenne Goetz Patrick, SALES OPERATIONS SPECIALIST SALES OPERATIONS SPECIALIST pm1 Francis Orta, RN RN Sommer Bassett 9 Mirian Aldridge RN RN 5 Kathya Clinton RN RN jg9 Elizabeth Smith RN RN mk Boman, Colleen, RN RN cb5 Corrections: (The following items were deleted from the chart) 18:02 17:58 Pulse 72bpm; Resp 24bpm; Spontaneous; Pulse Ox 94% RA; Temp 98.8F Temporal; jg9 147.42 kg Reported; Height 5 ft. 9 in. Reported; BMI: 47.9; jg9
--- NOTE | 2021-03-02 21:49 | EDPHYS ---
Physician Documentation [facility] Name: Erika Sharif Age: 80 yrs Sex: Male : 1940 Arrival Date: 03/02/2021 Time: 17:27 Bed 3 Private MD: ED Physician Maricarmen Rhoades HPI: 03/02 18:26 This 80 yrs old Male presents to ER via Wheelchair with complaints of Shortness Of pm1 Breath. 18:26 The patient has shortness of breath at rest. Onset: The symptoms/episode began/occurred pm1 3 week(s) ago. Duration: The symptoms are continuous. The patient's shortness of breath is aggravated by nothing, is alleviated by nothing. Associated signs and symptoms: Pertinent positives: non-productive cough, Pertinent negatives: chest pain, fever, nausea, vomiting. Severity of symptoms: in the emergency department the symptoms are unchanged. The patient has not experienced similar symptoms in the past. The patient has not recently seen a physician. Historical: - Allergies: 18:01 zolpidem; jg9 - PMHx: 18:01 CHF; COPD; Diabetes - IDDM; kidney failure; Myocardial infarction; neuropathy; pleural jg9 effusion; - PSHx: 18:01 arm; back; Cholecystectomy; jg9 - Immunization history:: Adult Immunizations up to date, Client reports receiving the 2nd dose of the Covid vaccine, Client reports receiving the 1st dose of the Covid vaccine, Last tetanus immunization: Pneumococcal vaccine is up to date, Flu vaccine is up to date. - Social history:: Smoking status: Patient/guardian denies using tobacco, the patient reports quitting approximately 60 years ago. ROS: 18:26 Constitutional: Negative for fever, chills, and weight loss. pm1 18:26 Cardiovascular: Negative for chest pain, palpitations, and edema. 18:26 Abdomen/GI: Negative for abdominal pain, nausea, vomiting, diarrhea, and constipation, Back: Negative for injury and pain, MS/Extremity: Negative for injury and deformity, Skin: Negative for injury, rash, and discoloration, Neuro: Negative for headache, weakness, numbness, tingling, and seizure. 18:26 Respiratory: Positive for cough, shortness of breath. 18:26 All other systems are negative. Exam: 18:26 Constitutional: This is a well developed, well nourished patient who is awake, alert, pm1 and in no acute distress. 18:26 Head/Face: Normocephalic, atraumatic. 18:26 Back: No spinal tenderness. No costovertebral tenderness. Full range of motion. Skin: Warm, dry with normal turgor. Normal color with no rashes, no lesions, and no evidence of cellulitis. MS/ Extremity: Pulses equal, no cyanosis. Neurovascular intact. Full, normal range of motion. 18:26 Eyes: Exam is negative for acute changes, Extraocular movements: no acute changes, Conjunctiva: no acute changes, no injection. 18:26 ENT: Exam is negative for acute changes, Mouth: no acute changes, Lips: normal, moist, Oral mucosa: normal, pink and intact, moist. 18:26 Cardiovascular: Exam negative for acute changes, Rate: normal, Rhythm: regular, Pulses: no pulse deficits are appreciated. 18:26 Respiratory: Exam negative for acute changes, respiratory distress, shortness of breath, Breath sounds: bronchial sounds, that are mild, are heard diffusely. 18:26 Abdomen/GI: Inspection: obese Palpation: abdomen is soft and non-tender, in all quadrants. 18:26 Neuro: Exam negative for acute changes, Orientation: is normal, Mentation: is normal, Motor: is normal, moves all fours. Vital Signs: 17:58 BP 112 / 57; Pulse 72; Resp 24 S; Temp 98.8(TE); Pulse Ox 94% on R/A; Weight 147.42 kg j9 (R); Height 5 ft. 9 in. (175.26 cm) (R); 18:25 BP 97 / 64; Pulse 73; Resp 20; Temp 98.6; Pulse Ox 96% ; cb5 19:10 BP 115 / 63; Pulse 95; Resp 20; Pulse Ox 92% on R/A; mk 20:10 BP 128 / 59; Pulse 95; Resp 18; Pulse Ox 92% on R/A; mk 21:48 BP 132 / 68; Pulse 86; Resp 16; Pulse Ox 91% on R/A; sm5 22:06 Temp 98.9; mk 17:58 Body Mass Index 47.99 (147.42 kg, 175.26 cm) jg9 Angel Coma Score: 19:10 Eye Response: spontaneous(4). Verbal Response: oriented(5). Motor Response: obeys mk commands(6). Total: 15. 20:10 Eye Response: spontaneous(4). Verbal Response: oriented(5). Motor Response: obeys mk commands(6). Total: 15. 20:10 Eye Response: spontaneous(4). Verbal Response: oriented(5). Motor Response: obeys mk commands(6). Total: 15. 22:05 Eye Response: spontaneous(4). Verbal Response: oriented(5). Motor Response: obeys mk commands(6). Total: 15. MDM: 18:06 Patient medically screened. pm1 21:43 ED course: Patient feeling better and wants to go home. Patient offered admission due pm1 to age and history of COPD with his new diagnosis of covid. Patient refused and would like to go home. Will prescribe the patient prescriptions for COPD exacerbation with covid. 21:47 Data reviewed: vital signs. Data interpreted: Pulse oximetry: on room air is 94 %. pm1 Interpretation: normal. Counseling: I had a detailed discussion with the patient and/or guardian regarding: the historical points, exam findings, and any diagnostic results supporting the discharge/admit diagnosis, lab results, radiology results, the need for outpatient follow up, to return to the emergency department if symptoms worsen or persist or if there are any questions or concerns that arise at home. 03/02 18:14 Order name: COVID-19/FLU A+B (Document "Date of Onset" if Symptomatic) pm1 03/02 18:14 Order name: Basic Metabolic Panel pm1 03/02 18:14 Order name: CBC with Diff; Complete Time: 18:42 pm1 03/02 18:14 Order name: LFT's; Complete Time: 21:45 pm1 03/02 18:14 Order name: Magnesium; Complete Time: 21:45 pm1 03/02 18:14 Order name: NT PRO-BNP; Complete Time: 21:45 pm1 03/02 18:14 Order name: PT-INR; Complete Time: 18:48 pm1 03/02 18:14 Order name: Troponin (emerg Dept Use Only); Complete Time: 21:45 pm1 03/02 18:14 Order name: XRAY Chest (1 view); Complete Time: 18:42 pm1 03/02 18:14 Order name: COVID-19/FLU A+B; Complete Time: 19:49 EDMS 03/02 18:14 Order name: Basic Metabolic Panel; Complete Time: 21:45 EDMS 03/02 18:14 Order name: EKG; Complete Time: 18:15 pm1 03/02 18:14 Order name: Cardiac monitoring; Complete Time: 18:17 pm1 03/02 18:14 Order name: EKG - Nurse/Tech; Complete Time: 18:23 pm1 03/02 18:14 Order name: IV Saline Lock; Complete Time: 18:23 pm1 03/02 18:14 Order name: Labs collected and sent; Complete Time: 18:23 pm1 03/02 18:14 Order name: O2 Per Protocol; Complete Time: 18:15 pm1 03/02 18:14 Order name: O2 Sat Monitoring; Complete Time: 18:15 pm1 Administered Medications: 18:23 Drug: Albuterol - atroVENT (ipratropium) (3:1) (2.5 mg - 0.5 mg) 3 ml Route: Nebulizer; bp 18:23 Drug: SOLU-Medrol (methylPrednisoLONE) 125 mg Route: IVP; Site: right antecubital; bp 18:23 Drug: Tussionex Pennkinetic ER (chlorpheniramine-hydrocodone) Suspension 5 ml Route: PO;bp 22:05 Drug: Rocephin (cefTRIAXone) 1 grams Route: IV; Rate: calculated rate; Site: right sm5 antecubital; Disposition Summary: 03/02/21 21:49 Discharge Ordered Location: Home pm1 Problem: new pm1 Symptoms: have improved pm1 Condition: Stable pm1 Diagnosis - Coronavirus infection, unspecified pm1 - COPD/ Chronic obstructive pulmonary disease, unspecified pm1 Followup: pm1 - With: Emergency Department - When: As needed - Reason: Worsening of condition Followup: pm1 - With: Private Physician - When: 2 - 3 days - Reason: Recheck today's complaints, Continuance of care, Re-evaluation by your physician Discharge Instructions: - Discharge Summary Sheet pm1 - Chronic Obstructive Pulmonary Disease pm1 - COVID-19 pm1 - COVID-19 Frequently Asked Questions pm1 - 10 Things You Can Do to Manage Your COVID-19 Symptoms at Home - [facility] pm1 - COVID-19: Quarantine vs. Isolation - [facility] pm1 Forms: - Medication Reconciliation Form pm1 - Thank You Letter pm1 - Antibiotic Education pm1 - Prescription Opioid Use pm1 Prescriptions: - Zithromax Z-Fausto 250 mg Oral Tablet - take 1 tablet by ORAL route as directed for 5 days Day 1 - take two (2) tablets pm1 one time. Day 2, 3, 4 , 5 take one (1) tablet once daily.; 6 tablet; Refills: 0, Product Selection Permitted - Nebulizer Machine - inhale 1 unit by NEBULIZATION route as directed As needed Dispense I nebulizer pm1 machine for use with albuterol INH Q4-6 PRN; 1 Unspecified; Refills: 0, Product Selection Permitted - Albuterol Sulfate 2.5 mg /3 mL (0.083 %) Inhalation Solution for Nebulization - inhale 1 unit by NEBULIZATION route every 8 hours As needed; 1 box; Refills: 0, pm1 Product Selection Permitted - Medrol (Fausto) 4 mg Oral Tablets, Dose Pack - take 1 tablet by ORAL route as directed - follow package instructions; 1 pm1 packet; Refills: 0, Product Selection Permitted - Guaifenesin AC 10-100 mg/5 mL Oral Liquid - take 10 milliliters by ORAL route every 4 hours As needed; 240 milliliter; pm1 Refills: 0, Product Selection Permitted - Ventolin HFA 90 mcg/actuation Inhalation HFA aerosol inhaler - inhale 1 puff by INHALATION route every 4 hours As needed; 1 Inhaler; Refills: pm1 0, Product Selection Permitted Signatures: Dispatcher [employer] Lc Neri, RENA SPD MANAGER pm1 Francis Orta, RN RN bp Mirian Aldridge RN RN sm5 Kathya Clinton RN RN jg9 Chiquita Corral, RN RN cb5
[2021-03-02] MEDS ORDERED: CEFTRIAXONE 1000 MG/VIAL ONE (21:55)
[2021-03-02 22:19] VITALS: BP 132/68; O2SAT 91
[2021-03-02 22:20] VITALS: TEMP 98.9
== END 2021-03-02 22:08 | disposition home or self-care (01) ==
LOC: ER 17:18
DX: U07.1 COVID-19 (principal); J44.9 Chronic obstructive pulmonary disease, unspecified; E11.9 Type 2 diabetes mellitus without complications; I50.9 Heart failure, unspecified
CPT/HCPCS: 93005; 85025; 80048; 36415; 83735; 85610; 80076; 84484; 83880; 0240U; 71045; 94640; 96375; 96374; 99284; J2930

== ENCOUNTER 2021-03-09 11:23 | Observation (INO) | payer OTHER ==
--- OUTSIDE RECORDS SUMMARY | 2021-03-09 11:27 | XMS REPORT | Continuity of Care Document ---
:1940 Author Organization [facility] t Address 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-04 ity of kidney kidney 00:00: [place] disease disease 00 Medical Branch Dyspnea Dyspnea Disease Active 2020-0 Univers 4-03 ity of 00:00: [place] 00 Medical Branch Chronic Chronic Disease Active 2018- Univers diastolic diastolic 8-14 ity of congestive [...] 5-19 ity of disorder disorder 00:00: [place] 00 Medical Branch Neuropathy Neuropathy Disease Active U nivers due to due to 5-19 [place]y of secondary secondary 00:00[place] diabetes diabetes 00 Medica l Branch Physical Physical Disease Active Unive rs deconditio deconditio 5-19 it y of dayami dayami 00:00: [place] [facility] Chronic Chronic Disease Active Univers anticoagul anticoagul 5-19 it y of ation ation 00:00: [place] [facility] Facet Facet Disease Active Univers arthritis arthritis 5-19 ity of of of 00:00: [place] lumbosacra lumbosacra 00 Me dical l region l region Branch Spinal Spinal Disease Active Univers stenosis, stenosis, 5-19 ity of lumbar lumbar 00:00: [place] region, region, 00 Medical without without Branch [...] of failure failure 00:00: g of this [place] note Medical might be Branch different from the original. ICD10 Diagnosis Term Instrumental Teacher Utility Gout Gout Disease Active 2011-02 Univers 0-19 ity of 00:00: [place] 00 Medical Branch Backache Backache Disease Active Overview: Un jb 4-20 Formattin ity of 00:00: g of this note Medical might be Branch different from the original. ICD10 Diagnosis Term Instrumental Teacher Utility Essential Essential Disease Active Uni vers [...] of idiopathic idiopathic 00:00: g of this [place] peripheral peripheral 00 note Me dical neuropathy neuropathy might be Branch different from the original. ICD10 Diagnosis Term Instrumental Teacher Utility Chest pain Chest pain Disease Active Overview : Univers 4-30 Formattin ity of 00:00: g of this [place] 00 note Medical might be Branch different from the original. ICD10 Diagnosis Term Instrumental Teacher Utility HLD HLD Disease Active Overview: Univer s (hyperlipi (hyperlipi 429 Formattin ity of demia) demia) 00:00: g of this [place] 00 note Medical might be Branch different from the original. ICD10 Diagnosis Term Instrumental Teacher Utility Chronic Chronic Disease Active Univers kidney kidney 4-29 ity of disease, disease, 00:00: [place] stage II stage II 00 Medica l (mild) (mild) Branch Coronary Coronary Disease Active Unive rs atheroscle atheroscle 4-29 it y of rosis of rosis of 00:00: [place] 00 Medical coronary coronary Branch artery artery Spinal Spinal Disease Active Univers stenosis stenosis 4-29 ity of of lumbar of lumbar 00:00[place] region region 00 Medical without without Branch neurogenic neurogenic claudicati claudicati on on Skin Skin Disease Active [facility] cancer cancer ity of [facility] 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 [facility] Allergies, Adverse Reactions, Alerts Allergy Allergy Status [...] Cigarette Smoker Universi ty of tobacco use [facility] Alcohol intake 2020-11-22 2020-11-22 Current University of 00:00:00 00:00:00 non-drinker of [facility] alcohol (finding) Alpha Tobacco Comment 2017-10-06 2017-10-06 quit 50 years ago Un iversity of 00:00:00 00:00:00 [place] [facility] Sex [birth year] At [birth year] Universit y of 00:00:00 00:00:00 [place] [facility] Smoking Status Start Date Stop Date Source Former smoker 2020-10-01 00:00:00 2020-10-01 00:00:00 [facility] Medications Ordered Filled Start Stop Current Ordering Indication Dosage Frequency Signature Comments Components Source Medication Medication Date Date Medication? Clinician (SIG) Name Name METOPROLOL 2020-02 Yes [id number] TAKE 1 Un jb TARTRATE 50 2-15 TABLET BY ity of mg tablet 00:00: MOUTH [place] TWICE Medical DAILY Branch METOPROLOL 2020-02 Yes [id number] TAKE 1 Un jb TARTRATE 50 2-15 TABLET BY ity of mg tablet 00:00: MOUTH [place] TWICE Medical DAILY Branch METOPROLOL 2020-02 Yes [id number] TAKE 1 Un jb TARTRATE 50 2-15 TABLET BY ity of mg tablet 00:00: MOUTH [place] TWICE Medical DAILY Branch NOVOLOG 2020-02 Yes INJECT Univers FLEXPEN 2-10 SUBCUTANEO ity of U-100 00:00: 40 [place] INSULIN 100 00 UNITS Medical unit/mL (3 THREE Branch mL) TIMES injection DAILY BEFORE A MEAL NOVOLOG 2020-02 Yes INJECT Univers FLEXPEN 2-10 SUBCUTANEO ity of U-100 00:00: 40 [place] INSULIN 100 00 UNITS Medical unit/mL (3 THREE Branch mL) TIMES injection DAILY BEFORE A MEAL NOVOLOG 2020-02 Yes INJECT Univers FLEXPEN 2-10 SUBCUTANEO ity of U-100 00:00: 40 [place] INSULIN 100 00 UNITS Medical unit/mL (3 THREE Branch mL) TIMES injection DAILY BEFORE A MEAL insulin 2020-02 Yes [id number] INJECT 40 Univers lispro 2-08 UNITES ity of (HUMALOG 00:00: SUBCUTANEO [place] as KWIKPEN 00 US THREE Medical INSULIN) TIMES Branch 100 unit/mL DAILY pen BEFORE A injector MEAL Insulin 2020-02 Yes [id number] INJECT 50 Univers Glargine 2-08 UNITS ity of (LANTUS 00:00: UNDER THE [place] SOLOSTAR 00 SKIN EVERY Medic al U-100 NIGHT AT Branch INSULIN) BEDTIME. 100 unit/mL (3 mL) injection insulin 2020-02 Yes [id number] INJECT 40 Univers lispro 2-08 UNITES ity of (HUMALOG 00:00: SUBCUTANEO [place] KWIKPEN 00 US THREE Medical INSULIN) TIMES Branch 100 unit/mL DAILY pen BEFORE A injector MEAL insulin 2020-02 Yes [id number] INJECT 40 Univers lispro 2-08 UNITES ity of (HUMALOG 00:00: SUBCUTANEO [place] KWIKPEN 00 US THREE Medical INSULIN) TIMES Branch 100 unit/mL DAILY pen BEFORE A injector MEAL Insulin 2020-02 Yes [id number] INJECT 50 Univers Glargine 2-08 UNITS ity of (LANTUS 00:00: UNDER THE [place] SOLOSTAR 00 SKIN EVERY Medic al U-100 NIGHT AT Branch INSULIN) BEDTIME. 100 unit/mL (3 mL) injection insulin 2020-02 Yes [id number] INJECT 40 Univers lispro 2-08 UNITES ity of (HUMALOG 00:00: SUBCUTANEO [place] KWIKPEN 00 US THREE Medical INSULIN) TIMES Branch 100 unit/mL DAILY pen BEFORE A injector MEAL insulin 2020-02 Yes [id number] INJECT 40 Univers lispro 2-08 UNITES ity of (HUMALOG 00:00: SUBCUTANEO [place] KWIKPEN 00 US THREE Medical INSULIN) TIMES Branch 100 unit/mL DAILY pen BEFORE A injector MEAL Insulin 2020-02 Yes [id number] INJECT 50 Univers Glargine 2-08 UNITS ity of (LANTUS 00:00: UNDER THE [place] SOLOSTAR 00 SKIN EVERY Medic al U-100 NIGHT AT Branch INSULIN) BEDTIME. 100 unit/mL (3 mL) injection insulin 2020-02 Yes [id number] INJECT 40 Univers lispro 2-08 UNITES ity of (HUMALOG 00:00: SUBCUTANEO [place] KWIKPEN 00 US THREE Medical INSULIN) TIMES Branch 100 unit/mL DAILY pen BEFORE A injector MEAL Lancing Yes [id number] Use as Uni vers Device with 11-21 directed. ity of Lancets 00:00: June [place] (ONE TOUCH 00 substitute Med ical DELICA) Kit brand Branch preferred by insurance Blood-Gluco Yes [id number] Use as Univers se Meter 9 directed. ity of (ONETOUCH 00:00: June [place] VERIO FLEX 00 substitute Med ical START) Kit brand Branch preferred by insurance blood sugar Yes [id number] Test 4x Univers diagnostic 11-21 daily for ity of (ONETOUCH 00:00: diagnosis [place] VERIO TEST 00 code Medical STRIPS) E11.9. May Branch strip substitute brand preferred by insurance Lancing Yes [id number] Use as Uni vers Device with 11-21 directed. ity of Lancets 00:00: June [place] (ONE TOUCH 00 substitute Med ical DELICA) Kit brand Branch preferred by insurance Blood-Gluco Yes [id number] Use as Univers se Meter 9 directed. ity of (ONETOUCH 00:00: June [place] VERIO FLEX 00 substitute Med ical START) Kit brand Branch preferred by insurance blood sugar Yes [id number] Test 4x Univers diagnostic 11-21 daily for ity of (ONETOUCH 00:00: diagnosis [place] VERIO TEST 00 code Medical STRIPS) E11.9. May Branch strip substitute brand preferred by insurance Lancing Yes [id number] Use as Uni vers Device with 11-21 directed. ity of Lancets 00:00: June [place] (ONE TOUCH 00 substitute Med ical DELICA) Kit brand Branch preferred by insurance Blood-Gluco Yes [id number] Use as Univers se Meter 9 directed. ity of (ONETOUCH 00:00: June [place] VERIO FLEX 00 substitute Med ical START) Kit brand Branch preferred by insurance blood sugar Yes [id number] Test 4x Univers diagnostic 9 daily for ity of (ONETOUCH 00:00: diagnosis [place] VERIO TEST 00 code Medical STRIPS) E11.9. May Branch strip substitute brand preferred by insurance allopurinoL Yes [id number] 100mg Take 1 Univers 100 mg 9-15 tablet by ity of tablet 00:00: mouth [place] 00 daily. Medical Branch montelukast Yes [id number] 10mg Take 1 Univers 10 mg 9-15 tablet by ity of tablet 00:00: mouth [place] 00 daily. Medical Branch fluticasone Yes [id number] 1{puff} Inhale 1 Univers propion-duc 9-15 Puff every it y of meteroL 00:00: 12 [place] (ADVAIR 00 (twelve) Medical DISKUS) hours. Branch 250-50 mcg/dose inhalation disk albuterol-i Yes [id number] 1{puff} Inhale 1 Univers pratropium 9-15 Puff 4 ity of 20-100 00:00: (four) [place] mcg/actuati 00 times Medical on inhaler daily. Branch aspirin 81 Yes [id number] 81mg Take 1 Univers mg chewable 9-15 tablet by ity of tablet 00:00: mouth [place] 00 daily. Medical Branch nitroglycer Yes [id number] .4mg Place 1 Univers in 9-15 tablet ity of (NITROSTAT) 00:00: under the [place] 0.4 mg 00 tongue Medical sublingual every 5 Branc h tablet (five) minutes as needed for Chest pain. enalapril Yes [id number] 10mg Take 1 Uni vers 10 mg 9-15 tablet by ity of tablet 00:00: mouth [place] 00 daily. Medical Branch atorvastati Yes [id number] 40mg Take 1 Univers n 40 mg 9-15 tablet by ity of tablet 00:00: mouth at [place] 00 bedtime. Medical Branch pregabalin Yes [id number] 75mg Take 1 Univers (LYRICA) 75 9-15 capsule by it y of mg capsule 00:00: mouth 3 [place] 00 (three) Medical times Branch daily. esomeprazol Yes [id number] TAKE ONE Univers e 20 mg 9-15 CAPSULE BY ity of capsule 00:00: MOUTH [place] 00 EVERY DAY Medical Branch escitalopra Yes [id number] 10mg Take 1 Univers m oxalate 9-15 tablet by ity o f 10 mg 00:00: mouth [place] tablet 00 daily. Medical Branch tamsulosin Yes [id number] .4mg Take 1 Univers 0.4 mg 24 9-15 9102 capsule by ity of hr capsule 00:00: mouth [place] 00 daily. Medical Branch finasteride Yes [id number] 5mg Take 1 Univers 5 mg tablet 9-15 9102 tablet by ity of 00:00: mouth [place] 00 daily. Medical Branch allopurinoL Yes [id number] 100mg Take 1 Univers 100 mg 9-15 tablet by ity of tablet 00:00: mouth [place] 00 daily. Medical Branch montelukast Yes [id number] 10mg Take 1 Univers 10 mg 9-15 tablet by ity of tablet 00:00: mouth [place] 00 daily. Medical Branch fluticasone Yes [id number] 1{puff} Inhale 1 Univers propion-duc 9-15 Puff every it y of meteroL 00:00: 12 [place] (ADVAIR 00 (twelve) Medical DISKUS) hours. Branch 250-50 mcg/dose inhalation disk albuterol-i Yes [id number] 1{puff} Inhale 1 Univers pratropium 9-15 Puff 4 ity of 20-100 00:00: (four) [place] mcg/actuati 00 times Medical on inhaler daily. Branch aspirin 81 Yes [id number] 81mg Take 1 Univers mg chewable 9-15 tablet by ity of tablet 00:00: mouth [place] 00 daily. Medical Branch nitroglycer Yes [id number] .4mg Place 1 Univers in 9-15 tablet ity of (NITROSTAT) 00:00: under the [place] 0.4 mg 00 tongue Medical sublingual every 5 Branc h tablet (five) minutes as needed for Chest pain. enalapril Yes [id number] 10mg Take 1 Uni vers 10 mg 9-15 tablet by ity of tablet 00:00: mouth [place] 00 daily. Medical Branch atorvastati Yes [id number] 40mg Take 1 Univers n 40 mg 9-15 tablet by ity of tablet 00:00: mouth at [place] 00 bedtime. Medical Branch pregabalin Yes [id number] 75mg Take 1 Univers (LYRICA) 75 9-15 capsule by it y of mg capsule 00:00: mouth 3 [place] 00 (three) Medical times Branch daily. esomeprazol Yes [id number] TAKE ONE Univers e 20 mg 9-15 CAPSULE BY ity of capsule 00:00: MOUTH [place] 00 EVERY DAY Medical Branch escitalopra Yes [id number] 10mg Take 1 Univers m oxalate 9-15 tablet by ity o f 10 mg 00:00: mouth [place] tablet 00 daily. Medical Branch tamsulosin Yes [id number] .4mg Take 1 Univers 0.4 mg 24 9-15 9102 capsule by ity of hr capsule 00:00: mouth [place] 00 daily. Medical Branch finasteride Yes [id number] 5mg Take 1 Univers 5 mg tablet 9-15 9102 tablet by ity of 00:00: mouth [place] 00 daily. Medical Branch allopurinoL Yes [id number] 100mg Take 1 Univers 100 mg 9-15 tablet by ity of tablet 00:00: mouth [place] 00 daily. Medical Branch montelukast Yes [id number] 10mg Take 1 Univers 10 mg 9-15 tablet by ity of tablet 00:00: mouth [place] 00 daily. Medical Branch fluticasone Yes [id number] 1{puff} Inhale 1 Univers propion-duc 9-15 Puff every it y of meteroL 00:00: 12 [place] (ADVAIR 00 (twelve) Medical DISKUS) hours. Branch 250-50 mcg/dose inhalation disk albuterol-i Yes [id number] 1{puff} Inhale 1 Univers pratropium 9-15 Puff 4 ity of 20-100 00:00: (four) [place] mcg/actuati 00 times Medical on inhaler daily. Branch aspirin 81 Yes [id number] 81mg Take 1 Univers mg chewable 9-15 tablet by ity of tablet 00:00: mouth [place] 00 daily. Medical Branch nitroglycer Yes [id number] .4mg Place 1 Univers in 9-15 tablet ity of (NITROSTAT) 00:00: under the [place] 0.4 mg 00 tongue Medical sublingual every 5 Branc h tablet (five) minutes as needed for Chest pain. enalapril Yes [id number] 10mg Take 1 Uni vers 10 mg 9-15 tablet by ity of tablet 00:00: mouth [place] 00 daily. Medical Branch atorvastati Yes [id number] 40mg Take 1 Univers n 40 mg 9-15 tablet by ity of tablet 00:00: mouth at [place] 00 bedtime. Medical Branch pregabalin Yes [id number] 75mg Take 1 Univers (LYRICA) 75 9-15 capsule by it y of mg capsule 00:00: mouth 3 [place] 00 (three) Medical times Branch daily. esomeprazol Yes [id number] TAKE ONE Univers e 20 mg 9-15 CAPSULE BY ity of capsule 00:00: MOUTH [place] 00 EVERY DAY Medical Branch escitalopra Yes [id number] 10mg Take 1 Univers m oxalate 9-15 tablet by ity o f 10 mg 00:00: mouth [place] tablet 00 daily. Medical Branch tamsulosin Yes [id number] .4mg Take 1 Univers 0.4 mg 24 9-15 9102 capsule by ity of hr capsule 00:00: mouth [place] 00 daily. Medical Branch finasteride Yes [id number] 5mg Take 1 Univers 5 mg tablet 9-15 9102 tablet by ity of 00:00: mouth [place] 00 daily. Medical Branch BD MATIAS 2ND Yes [id number] INJECT Univers GEN PEN 3-21 UNDER THE ity of NEEDLE 32 00:00: SKIN THREE [place] gauge x 00 TIMES Medical 5/32" Ndle DAILY Branch BD MATIAS Yes [id number] INJECT Univers GEN PEN 3-21 UNDER THE ity of NEEDLE 32 00:00: SKIN THREE [place] gauge x 00 TIMES Medical 5/32" Ndle DAILY Branch BD MATIAS Yes [id number] INJECT Univers GEN PEN 3-21 UNDER THE ity of NEEDLE 32 00:00: SKIN THREE [place] gauge x 00 TIMES Medical 5/32" Ndle DAILY Branch fluticasone Yes [id number] 2{spray Use 2 Univers propionate 2-05 } Sprays in ity of 50 00:00: each [place] mcg/actuati 00 nostril Medic al on nasal daily. Branch spray blood sugar Yes [id number] 3 Un jb diagnostic 2-05 times/day ity of (ONETOUCH 00:00: [place] VERIO TEST 00 Medical STRIPS) Branch strip fluticasone 2020-0 Yes [id number] 2{spray Use 2 Univers propionate 2-05 } Sprays in ity of 50 00:00: each [place] mcg/actuati 00 nostril Medic al on nasal daily. Branch spray blood sugar 2020-0 Yes [id number] 3 Un jb diagnostic 2-05 times/day ity of (ONETOUCH 00:00: [place] VERIO TEST 00 Medical STRIPS) Branch strip fluticasone 2020- Yes [id number] 2{spray Use 2 Univers propionate 2-05 } Sprays in ity of 50 00:00: each [place] mcg/actuati 00 nostril Medic al on nasal daily. Branch spray blood sugar Yes [id number] 3 Un jb diagnostic 2-05 times/day ity of (ONETOUCH 00:00: [place] VERIO TEST 00 Medical STRIPS) Branch strip Insulin 2018- Yes [id number] Before Univ ers [place], 1-11 meals, dx ity of Disposable, 00:00: code E11.9 [place] 31 gauge x 00 Pen needle Med ical 1/4" Ndle humalog Branch quick pen Insulin 2019- Yes [id number] Before Univ ers [place], 1-11 meals, dx ity of Disposable, 00:00: code E11.9 [place] 31 gauge x 00 Pen needle Med ical 1/4" Ndle humalog Branch quick pen Insulin 2019-1 Yes [id number] Before Univ ers [place], 1-11 meals, dx ity of Disposable, 00:00: code E11.9 [place] 31 gauge x 00 Pen needle Med ical 1/4" Ndle humalog Branch quick pen COLCRYS 0.6 2019-0 Yes [id number] .6mg TAKE 1 Univers mg tablet 2-19 TABLET BY ity o f 00:00: MOUTH [place] 00 DAILY Medical Branch COLCRYS 0.6 2019-0 Yes [id number] .6mg TAKE 1 Univers mg tablet 2-19 TABLET BY ity o f 00:00: MOUTH [place] DAILY Medical Branch COLCRYS 0.6 2019-0 Yes [id number] .6mg TAKE 1 Univers mg tablet 2-19 TABLET BY ity o f 00:00: MOUTH [place] 00 DAILY Medical Branch Immunizations Ordered Filled Immunization Date Status Comments [facility] e Immunization Name Name SARS-COV-2 COVID-19 2020-11-07 Completed Unive rsity of PFIZER VACCINE 00:00:00 [facility] SARS-COV-2 COVID-19 2020-11-07 Completed Unive rsity of PFIZER VACCINE 00:00:00 [facility] SARS-COV-2 COVID-19 2020-11-07 Completed Unive rsity of PFIZER VACCINE 00:00:00 [facility] SARS-COV-2 COVID-19 2020-04-19 Completed Unive rsity of PFIZER VACCINE 00:00:00 [facility] SARS-COV-2 COVID-19 2020-04-19 Completed Unive rsity of PFIZER VACCINE 00:00:00 [facility] SARS-COV-2 COVID-19 2020-04-19 Completed Unive rsity of PFIZER VACCINE 00:00:00 [facility] SARS-COV-2 COVID-19 2020-03-21 Completed Unive rsity of PFIZER VACCINE 00:00:00 [facility] SARS-COV-2 COVID-19 2020-03-21 Completed Unive rsity of PFIZER VACCINE 00:00:00 [facility] SARS-COV-2 COVID-19 2020-03-21 Completed Unive rsity of PFIZER VACCINE 00:00:00 [facility] Influenza High Dose 2019-05-29 Completed Unive rsity of 00:00:00 [facility] Influenza High Dose 2019-05-29 Completed Unive rsity of 00:00:00 [facility] Influenza High Dose 2019-05-29 Completed Unive rsity of 00:00:00 [facility] Influenza High Dose 2017-02-10 Completed Unive rsity of 00:00:00 [facility] Influenza High Dose 2017-02-10 Completed Unive rsity of 00:00:00 [facility] Influenza High Dose 2017-02-10 Completed Unive rsity of 00:00:00 [facility] Influenza High Dose 2015-12-25 Completed Unive rsity of 00:00:00 [facility] Influenza High Dose 2015-12-25 Completed Unive rsity of 00:00:00 [facility] Influenza High Dose 2015-12-25 Completed Unive rsity of 00:00:00 [facility] Influenza High Dose 2015-03-20 Completed Unive rsity of 00:00:00 [facility] TDAP 2015-03-20 Completed University of 00:00:00 [facility] Influenza High Dose 2015-03-20 Completed Unive rsity of 00:00:00 [facility] TDAP 2015-03-20 Completed University of 00:00:00 [facility] Influenza High Dose 2015-03-20 Completed Unive rsity of 00:00:00 [facility] TDAP 2015-03-20 Completed University of 00:00:00 [facility] Pneumococcal 13 2014-08-01 Completed Universit y of Conjugate, PCV13 00:00:00 [facility] dical (Prevnar 13) Branch Pneumococcal 13 2014-08-01 Completed Universit y of Conjugate, PCV13 00:00:00 [facility] dical (Prevnar 13) Branch Pneumococcal 13 2014-08-01 Completed Universit y of Conjugate, PCV13 00:00:00 [facility] dical (Prevnar 13) Branch Influenza High Dose 2013-11-29 Completed Unive rsity of 00:00:00 [facility] Influenza High Dose 2013-11-29 Completed Unive rsity of 00:00:00 [facility] Influenza High Dose 2013-11-29 Completed Unive rsity of 00:00:00 [facility] Influenza High Dose 2013-04-07 Completed Unive rsity of 00:00:00 [facility] Influenza High Dose 2013-04-07 Completed Unive rsity of 00:00:00 [facility] Influenza High Dose 2013-04-07 Completed Unive rsity of 00:00:00 [facility] Influenza Virus 2009-12-24 Completed Universit y of Vaccine 00:00:00 [facility] Influenza Virus 2009-12-24 Completed Universit y of Vaccine 00:00:00 [facility] Influenza Virus 2009-12-24 Completed Universit y of Vaccine 00:00:00 [facility] Pneumococcal 2008-06-23 Completed University o f Polysaccharide, [...] Clinicians Facility Department ID 2021-03-08 2021-03-08 Outpatient [facility] [id number] [facility] 15:45:00 15:45:00 , ESPERANZA [id number] it y of [facility] 2021-03-05 2021-03-05 Patient MAURICIO Knapp [id number] [facility] 00:00:00 00:00:00 Secure Msg Mejía PEDIATRIC [id number] ity of [place] [id number] [place] [id number] [place] [address] Branch [facility] 2021-02-19 2021-02-19 Telephone Ramsey MARTÍNEZ [id number] Univers 00:00:00 00:00:00 , [place] PEDIATRIC [id number] ity of M [place] [id number] [place] [id number] [place] [address] Branch [facility] 2021-02-06 2021-02-06 Telephone Ramsey MARTÍNEZ [id number] Univers 00:00:00 00:00:00 , [place] PEDIATRIC [id number] ity of M [place] [id number] [place] [id number] [address] 2020-06-16 2020-06-16 [facility] [id number] 00:00:00 00:00:00 Ronny Amaya PRIMARY [id number] CARE [id number] PAVILLION [id number] 2020-06-13 2020-06-13 Marisa Dowling, UNIVERSIT [id number] 00:00:00 00:00:00 Ronny Pena [facility] [id number] CLINICS [id number] 2020-06-12 2020-06-12 Refill [facility] [id number] 00:00:00 00:00:00 Ronny Pena HEALTH [id number] CLINICS [id number] [id number] 2020-06-03 2020-06-03 Refill [facility] [id number] 00:00:00 00:00:00 Ronny Pena HEALTH [id number] CLINICS [id number] [id number] 2020-05-11 2020-05-11 Refill [facility] [id number] 00:00:00 00:00:00 Ronny Amaya PRIMARY [id number] CARE [id number] PAVILLION [id number] 2020-04-10 2020-04-10 [facility] [id number] 00:00:00 00:00:00 Ronny Amaya PRIMARY [id number] CARE [id number] PAVILLION [id number] 2020-03-28 2020-03-28 [facility] [id number] 00:00:00 00:00:00 Ronny Amaya PRIMARY [id number] CARE [id number] PAVILLION [id number] 2020-03-27 2020-03-27 [facility] [id number] 00:00:00 00:00:00 Ronny Amaya PRIMARY [id number] CARE [id number] PAVILLION [id number] 2020-03-25 2020-03-[facility] [id number] 00:00:00 00:00:00 Avelino [place] [id number] [place] [id number] Profess[facility] [phone] [facility] [address] Building Results This patient has no known results.
[2021-03-09] MEDS ORDERED: IPRATROPIUM BROM 0.5MG/2.5ML ONE (12:26)
[2021-03-09] MEDS ORDERED: ALBUTEROL 2.5 MG/3 ML NEB SOL ONE (12:26)
[2021-03-09] MEDS ORDERED: METHYLPREDNISOLONE 125 MG INJ ONE (12:26)
[2021-03-09] MEDS ORDERED: HYDROCODONE/CHLORPHEN 5 ML/OSYR ONE (12:26)
[2021-03-09 12:30] LABS: Absolute Lymphocytes (CBC) 0.9 K/uL (0.7-4.9); Hematocrit 47.7 % (39.6-49.0); Lymphocytes % 11.5 % (15.3-44.8); MPV 8.9 fL (7.6-11.3); RBC Red Blood Cell Count 5.49 M/uL (4.33-5.43)
[2021-03-09 12:33] LABS: Protime INR 0.98
[2021-03-09 12:59] LABS: Albumin 2.6 g/dL (3.4-5.0); Bilirubin Direct 0.1 mg/dL (0-0.2); Bilirubin Total 0.4 mg/dL (0.2-1.0); C-Reactive Protein 69.7 mg/L (<3.00); Ferritin 351.3 ng/mL (26-388); Troponin High Sensitivity 18.2 pg/mL (<58.9)
[2021-03-09 13:04] LABS: Potassium 5.1 mmol/L (3.5-5.1)
--- NOTE | 2021-03-09 13:26 | RAD REPORT ---
EXAM DESCRIPTION: RAD - Chest Single View - 03/09/2021 1:17 pm CLINICAL HISTORY: Pain;SOB COMPARISON: Chest Single View dated 03/02/2021; Chest Single View dated 12/04/2017; Chest Single View dated 05/03/2017; Chest Single View dated 08/05/2016 FINDINGS: Lines: None. Lungs: Mild vague bilateral airspace opacities. Pleural: No significant pleural effusions or pneumothorax. Cardiac: The heart size is within normal limits. Bones: No acute fractures. Other: IMPRESSION: Vague bilateral airspace disease concerning for multifocal pneumonia, including Covid-19 .
--- NOTE | 2021-03-09 14:54 | ER ---
Nurse's Notes [facility] Name: Erika Sharif Age: 80 yrs Sex: Male : 1940 Arrival Date: 03/09/2021 Time: 11:25 Bed 20 Private MD: Diagnosis: Pneumonia due to SARS-associated coronavirus Presentation: 03/09 11:37 Chief complaint: Patient states: dizziness and upper RIGHT chest pain this morning. tw2 Spouse and/or significant other states: COVID + on the 8th, thought we could go home at get better. and he has gotten worse. Coronavirus screen: congestion, cough unrelated to allergies, difficulty breathing, fever, loss of taste or smell. Ebola Screen: Patient denies travel to an Ebola-affected area in the 21 days before illness onset. Initial Sepsis Screen: Does the patient meet any 2 criteria? No. Patient's initial sepsis screen is negative. Does the patient have a suspected source of infection? No. Patient's initial sepsis screen is negative. Risk Assessment: Do you want to hurt yourself or someone else? Patient reports no desire to harm self or others. Onset of symptoms was March 09, 2021. 11:37 Method Of Arrival: Wheelchair tw2 11:37 Acuity: PEEWEE 3 tw2 Triage Assessment: 11:42 General: Appears in no apparent distress. uncomfortable, obese, unkempt, Behavior is tw2 calm, cooperative, appropriate for age. Pain: Complains of pain in chest. Neuro: Reports dizziness. Respiratory: Reports shortness of breath at rest on exertion cough that is Onset: The symptoms/episode began/occurred since the 8th and just "not getting better", the patient has moderate shortness of breath. Historical: - Allergies: 11:41 zolpidem; tw2 - PMHx: 11:41 CHF; COPD; Diabetes - IDDM; kidney failure; Myocardial infarction; neuropathy; pleural tw2 effusion; - PSHx: 11:41 arm; back; Cholecystectomy; tw2 - Immunization history:: Client reports receiving the 2nd dose of the Covid vaccine, Flu vaccine is not up to date. - Social history:: Smoking status: Patient denies any tobacco usage or history of. Screenin:43 Abuse screen: Denies threats or abuse. Nutritional screening: No deficits noted. tw2 Tuberculosis screening: No symptoms or risk factors identified. Fall Risk None identified. Assessment: 12:00 General: Appears distressed, Behavior is anxious. Cardiovascular: Rhythm is sinus jg9 rhythm. Respiratory: Airway is patent Respiratory effort is labored, Breath sounds are diminished bilaterally. 13:30 Reassessment: Patient appears in no apparent distress at this time. No changes from ww previously documented assessment. Patient and/or family updated on plan of care and expected duration. Pain level reassessed. patient uncomfortable in bed due to his chronic back pain, repositioned to wheelchair per patients request. Spouse at bedside. . 14:11 Reassessment: Patient appears in no apparent distress at this time. No changes from ww previously documented assessment. Patient and/or family updated on plan of care and expected duration. Pain level reassessed. 15:30 Reassessment: Patient appears in no apparent distress at this time. No changes from ww previously documented assessment. Patient and/or family updated on plan of care and expected duration. Pain level reassessed. Hospitalist at bedside. 16:17 Reassessment: Patient appears in no apparent distress at this time. No changes from ww previously documented assessment. Patient and/or family updated on plan of care and expected duration. Pain level reassessed. Vital Signs: 11:37 BP 131 / 72; Pulse 79; Resp 19; Temp 97.4(TE); Pulse Ox 92% on R/A; Weight 147.42 kg; tw2 Height 5 ft. 9 in. (175.26 cm); 12:00 BP 102 / 63; Pulse 81; Resp 24 S; Pulse Ox 94% on R/A; jg9 12:30 BP 115 / 57; Pulse 77; Resp 23; Pulse Ox 93% on 3 lpm NC; jg9 13:00 BP 112 / 66; Pulse 76; Resp 22 S; Pulse Ox 97% on 3 lpm NC; jg9 14:00 BP 122 / 93; Pulse 76; Resp 22 S; Pulse Ox 96% on 3 lpm NC; jg9 11:37 Body Mass Index 47.99 (147.42 kg, 175.26 cm) tw2 11:37 pt placed on NC at 2L and pt up to 96% tw2 ED Course: 11:25 Patient arrived in ED. ds1 11:40 Triage completed. tw2 11:41 Arm band placed on. tw2 11:43 Bed in low position. Call light in reach. Side rails up X 1. Adult w/ patient. tw2 11:44 Kathya Clinton, KAMI is Primary Nurse. jg9 11:46 Lc Gibson NP is PHCP. pm1 11:46 Vini Crump MD is Attending Physician. pm1 12:19 BMP Sent. ww 12:20 Initial lab(s) drawn, by al, sent to lab. EKG done, Strep swab sent to lab. Inserted ww saline lock: 18 gauge in right antecubital area, using aseptic technique. Blood collected. 13:00 Inserted saline lock: 20 gauge in right antecubital area, using aseptic technique. ww 13:02 Blood Culture Adult (2) Sent. ww 13:09 sitting in wheel chair in room, NAD. Awaiting lab results, Awaiting radiology results. jg9 13:17 CXR XRAY In Process Unspecified. EDAR 14:54 Nathaniel Alonso is Hospitalizing Provider. pm1 03/10 06:14 Primary Nurse role handed off by Kathya Clinton RN eb Administered Medications: 03/09 12:50 Drug: Albuterol - atroVENT (ipratropium) (3:1) (2.5 mg - 0.5 mg) 3 ml Route: Nebulizer; ww 15:05 Follow up: Response: No adverse reaction jg9 12:50 Drug: SOLU-Medrol (methylPrednisoLONE) 125 mg Route: IVP; Site: right antecubital; ww 15:05 Follow up: Response: No adverse reaction jg9 13:01 Drug: Tussionex Pennkinetic ER (chlorpheniramine-hydrocodone) Suspension 5 ml Route: PO;ww 15:05 Follow up: Response: No adverse reaction jg9 Outcome: 14:54 Decision to Hospitalize by Provider. pm1 16:20 Patient left the ED. 3 03/11 13:25 Patient left the ED. bp Signatures: Dispatcher [employer] EDAR Priyanka Galan ds1 Lc Gibson, [employer] SUPERVISOR pm1 Shaista Aguilar RN RN tw2 Elaine Torres 3 Francis Orta RN KAMI bp Lennie Infante Jennifer, RN RN jg9 Wood, Yessy, RN RN ww
--- NOTE | 2021-03-09 14:54 | EDPHYS ---
Physician Documentation [facility] Name: Erika Sharif Age: 80 yrs Sex: Male : 1940 Arrival Date: 03/09/2021 Time: 11:25 Bed 20 Private MD: JUANA Physician Viin Crump HPI: 03/09 11:53 This 80 yrs old Male presents to ER via Wheelchair with complaints of Cough, Breathing pm1 Difficulty. 11:53 The patient or guardian reports cough, with productive sputum, that is yellow, pm1 difficulty breathing. Onset: The symptoms/episode began/occurred Ongoing for 1 month. Seen here 1 week ago and diagnosed with covid. Patient refused admission at that time and reports that his symptoms have gotten worse at home. Severity of symptoms: in the emergency department the symptoms are actually worse. Modifying factors: The symptoms are alleviated by nothing, the symptoms are aggravated by nothing. Associated signs and symptoms: Pertinent positives: chest pain, decreased PO intake and appetite, Pertinent negatives: diarrhea, fever, vomiting. The patient has not experienced similar symptoms in the past. The patient has been recently seen at the [facility] Emergency Department, last week, for similar complaints labs were performed, X-rays were performed, was given a prescription for antibiotics, patient refused admission at that time and is returning to the ER because his symptoms have gotten worse. Historical: - Allergies: 11:41 zolpidem; tw2 - PMHx: 11:41 CHF; COPD; Diabetes - IDDM; kidney failure; Myocardial infarction; neuropathy; pleural tw2 effusion; - PSHx: 11:41 arm; back; Cholecystectomy; tw2 - Immunization history:: Client reports receiving the 2nd dose of the Covid vaccine, Flu vaccine is not up to date. - Social history:: Smoking status: Patient denies any tobacco usage or history of. ROS: 11:53 Cardiovascular: Negative for chest pain, palpitations, and edema. pm1 11:53 Abdomen/GI: Negative for abdominal pain, nausea, vomiting, diarrhea, and constipation, Back: Negative for injury and pain, MS/Extremity: Negative for injury and deformity, Skin: Negative for injury, rash, and discoloration, Neuro: Negative for headache, weakness, numbness, tingling, and seizure. 11:53 Constitutional: Positive for poor PO intake, Negative for body aches, fever. 11:53 Respiratory: Positive for cough, shortness of breath. 11:53 All other systems are negative. Exam: 11:53 Constitutional: This is a well developed, well nourished patient who is awake, alert, pm1 and in no acute distress. Head/Face: Normocephalic, atraumatic. 11:53 Abdomen/GI: Soft, non-tender, with normal bowel sounds. No distension or tympany. No guarding or rebound. No evidence of tenderness throughout. Back: No spinal tenderness. No costovertebral tenderness. Full range of motion. Skin: Warm, dry with normal turgor. Normal color with no rashes, no lesions, and no evidence of cellulitis. MS/ Extremity: Pulses equal, no cyanosis. Neurovascular intact. Full, normal range of motion. 11:53 ENT: Exam is negative for acute changes, External ear(s): no acute changes, Ear canal(s): no acute changes, TM's: no acute changes, Mouth: no acute changes, Lips: normal, moist, Oral mucosa: normal, pink and intact, moist. 11:53 Cardiovascular: Exam negative for acute changes, Rate: normal, Rhythm: regular, Pulses: no pulse deficits are appreciated. 11:53 Respiratory: Exam negative for acute changes, respiratory distress, shortness of breath, Breath sounds: are clear throughout. 11:53 Neuro: Orientation: is normal, Mentation: is normal, Motor: is normal, moves all fours. Vital Signs: 11:37 BP 131 / 72; Pulse 79; Resp 19; Temp 97.4(TE); Pulse Ox 92% on R/A; Weight 147.42 kg; tw2 Height 5 ft. 9 in. (175.26 cm); 12:00 BP 102 / 63; Pulse 81; Resp 24 S; Pulse Ox 94% on R/A; jg9 12:30 BP 115 / 57; Pulse 77; Resp 23; Pulse Ox 93% on 3 lpm NC; jg9 13:00 BP 112 / 66; Pulse 76; Resp 22 S; Pulse Ox 97% on 3 lpm NC; jg9 14:00 BP 122 / 93; Pulse 76; Resp 22 S; Pulse Ox 96% on 3 lpm NC; jg9 11:37 Body Mass Index 47.99 (147.42 kg, 175.26 cm) tw2 11:37 pt placed on NC at 2L and pt up to 96% tw2 MDM: 11:51 Patient medically screened. pm1 13:26 ED course: Age adjusted upper limit for d-dimer is 790. Patient is covid positive. pm1 14:52 Data reviewed: vital signs. Data interpreted: Pulse oximetry: on room air is 91 %. pm1 Patient drops to 88-89% with talking and reports shortness of breath. Patient does not use home oxygen and needs supplemental oxygen therapy. Counseling: I had a detailed discussion with the patient and/or guardian regarding: the historical points, exam findings, and any diagnostic results supporting the discharge/admit diagnosis, lab results, radiology results, the need for further work-up and treatment in the hospital. 15:12 Physician consultation: Nathaniel Lorraineron was called at 15:12, was contacted at 15:12, pm1 regarding admission, patient's condition, and will see patient. 03/09 11:53 Order name: BMP 03/09 11:53 Order name: Blood Culture Adult (2) pm03/09 11:53 Order name: C-Reactive Protein; Complete Time: 13:17 03/09 11:53 Order name: CBC with Diff; Complete Time: 13:17 03/09 11:53 Order name: D-Dimer; Complete Time: 13:17 03/09 11:53 Order name: Ferritin; Complete Time: 13:18 03/09 11:53 Order name: Flu 03/09 11:53 Order name: LFT's; Complete Time: 13:17 03/09 11:53 Order name: Lactate; Complete Time: 13:17 03/09 11:53 Order name: Lipase; Complete Time: 13:18 pm03/09 11:53 Order name: PT-INR; Complete Time: 13:18 pm03/09 11:53 Order name: Procalcitonin; Complete Time: 13:50 03/09 11:53 Order name: Ptt, Activated; Complete Time: 13:18 03/09 11:53 Order name: Strep; Complete Time: 14:28 pm03/09 11:53 Order name: Troponin HS; Complete Time: 13:18 pm03/09 11:53 Order name: Urine Microscopic Only pm1 03/09 11:53 Order name: Basic Metabolic Panel; Complete Time: 13:18 EDMS 03/09 11:53 Order name: Blood Culture; Complete Time: 12:10 ED03/09 11:54 Order name: COVID-19/FLU A+B (Document "Date of Onset" if Symptomatic); Complete Time: pm1 15:07 03/09 14:26 Order name: Throat Culture; Complete Time: 12:10 EDMS 03/09 17:09 Order name: Glucose, Ancillary Testing; Complete Time: 12:10 EDMS 03/09 22:40 Order name: Lactate Sepsis 2 HR Follow-up; Complete Time: 12:10 EDMS 03/10 04:22 Order name: CBC with Automated Diff; Complete Time: 12:10 ED03/10 04:22 Order name: D-Dimer; Complete Time: 12:10 EDMS 03/10 04:50 Order name: Comprehensive Metabolic Panel; Complete Time: 12:10 ED03/10 04:50 Order name: Phosphorus; Complete Time: 12:10 03/10 04:50 Order name: C-Reactive Protein; Complete Time: 12:10 EDMS 03/10 04:50 Order name: Magnesium; Complete Time: 12:10 ED03/10 04:50 Order name: Ferritin; Complete Time: 12:10 03/10 08:38 Order name: Glucose, Ancillary Testing; Complete Time: 12:10 ED03/09 11:53 Order name: CXR XRAY; Complete Time: 13:50 pm03/09 11:53 Order name: EKG; Complete Time: 11:53 03/09 11:53 Order name: Cardiac monitoring; Complete Time: 12:19 pm03/09 11:53 Order name: Droplet/Contact Precautions; Complete Time: 12:19 pm03/09 11:53 Order name: EKG - Nurse/Tech; Complete Time: 12:19 pm03/09 11:53 Order name: IV Start; Complete Time: 12:19 pm03/09 11:53 Order name: Labs collected and sent; Complete Time: 12:19 pm03/09 11:53 Order name: O2 Per Protocol; Complete Time: 12:19 03/09 11:53 Order name: O2 Sat Monitoring; Complete Time: 12:19 pm1 03/10 08:38 Order name: Glucose, Ancillary Testing; Complete Time: 12:10 EDMS 03/10 11:57 Order name: Glucose, Ancillary Testing; Complete Time: 12:10 EDMS 03/10 16:43 Order name: Glucose, Ancillary Testing; Complete Time: 12:10 EDMS 03/10 22:15 Order name: Glucose, Ancillary Testing; Complete Time: 12:10 EDMS 03/11 03:49 Order name: D-Dimer; Complete Time: 12:10 EDMS 03/11 04:19 Order name: C-Reactive Protein; Complete Time: 12:10 EDMS 03/11 04:19 Order name: Ferritin; Complete Time: 12:10 EDMS 03/11 09:15 Order name: Glucose, Ancillary Testing; Complete Time: 12:10 EDMS Administered Medications: 12:50 Drug: Albuterol - atroVENT (ipratropium) (3:1) (2.5 mg - 0.5 mg) 3 ml Route: Nebulizer; ww 15:05 Follow up: Response: No adverse reaction jg9 12:50 Drug: SOLU-Medrol (methylPrednisoLONE) 125 mg Route: IVP; Site: right antecubital; ww 15:05 Follow up: Response: No adverse reaction jg9 13:01 Drug: Tussionex Pennkinetic ER (chlorpheniramine-hydrocodone) Suspension 5 ml Route: PO;ww 15:05 Follow up: Response: No adverse reaction jg9 Disposition: 03/12 07:40 Co-signature as Attending Physician, Vini Crump MD I agree with the assessment and eulalio plan of care. Disposition Summary: 03/09/21 14:54 Hospitalization Ordered Hospitalization Status: Inpatient Admission pm1 Provider: Nathaniel Alonso pm1 Condition: Stable pm1 Problem: new pm1 Symptoms: have improved pm1 Bed/Room Type: Standard pm1 Location: [facility] ER HOLD(03/09/21 16:33) iw Room Assignment: ERHOLD-(03/09/21 16:33) iw Diagnosis - Pneumonia due to SARS-associated coronavirus pm1 Forms: - Medication Reconciliation Form pm1 - SBAR form pm1 Signatures: Dispatcher [employer] Vini Etienne MD MD cha Williams, Irene, RN RN iw Lc Gibson, WAREHOUSE RECORD CLERK WAREHOUSE RECORD CLERK pm1 Shaista Aguilar RN RN tw2 Yessy Maloney RN RN ww Kathya Clinton RN jg9 Corrections: (The following items were deleted from the chart) 03/09 16:33 14:54 Telemetry/MedSurg (Inpatient) pm1 16:33 14:54 pm1 iw
[2021-03-09 15:03] LABS: SARS-COV-2 RT PCR POSITIVE (NEGATIVE)
--- NOTE | 2021-03-09 16:18 | P.HP ---
Certification for Inpatient Patient admitted to: Observation With expected LOS: <2 Midnights Practitioner: I am a practitioner with admitting privileges, knowledge of patient current condition, hospital course, and medical plan of care. Services: Services provided to patient in accordance with Admission requirements found in Title 42 Section 412.3 of the Code of Federal Regulations Patient History Date of Service: 03/09/21 Reason for admission: Shortness of breath History of Present Illness: 80-year-old gentleman with a history of diabetes, obstructive sleep apnea, recent diagnosis of C. diff colitis presented to the emergency department with a complaint of progressive shortness of breath of 1 week duration. Symptoms associate symptoms of cough and fever. Patient stated he tested positive for COVID 1 week ago. He was in the emergency department earlier for shortness of breath. He was prescribed azithromycin and discharged home. Here in the ED patient noted to be hypoxic with oxygen saturation at 88% on room air. Chest x- ray demonstrated bilateral infiltrates consistent with COVID-pneumonia. Patient placed on oxygen by nasal cannula with SaO2 in the mid 90s. Not in respiratory distress. ED provider wishes to admit for further management. Allergies zolpidem [Zolpidem] Allergy (Verified 02/04/21 22:39) Delusions Home Medications: Atorvastatin Calcium [Lipitor*] 40 mg PO BEDTIME 01/17/15 Colchicine [Colcrys] 1 tab PO DAILY PRN 01/17/15 Enalapril Maleate [Vasotec] 1 tab PO DAILY 01/17/15 Esomeprazole Magnesium [Nexium] 20 mg PO DAILY 01/17/15 Furosemide [Lasix] 1 tab PO BID 01/17/15 Insulin Glargine,Hum.rec.anlog [Lantus] 50 unit SQ BEDTIME 01/17/15 Insulin Lispro [Humalog Kwikpen U-100] 40 unit SQ AC 01/17/15 Metoprolol Tartrate [Lopressor] 1 tab PO BID 01/17/15 Montelukast Sodium 1 tab PO DAILY 01/17/15 Pregabalin [Lyrica*] 1 cap PO TID 01/17/15 Tamsulosin HCl [Flomax] 1 cap PO DAILY 01/17/15 allopurinoL [Zyloprim*] 1 tab PO DAILY 01/17/15 Erythromycin Opth [Erythromycin Eye Ointment*] 1 leatha OPTH DAILY 05/04/17 Fluticasone [Flonase 50MCG Nasal [place]*] 2 puff DOMENICO DAILY 05/04/17 Hydrocodone Bit/Acetaminophen [Hydrocodon-Acetaminophn 10-325] 1 tab PO TID PRN 05/04/17 Nitroglycerin 0.4 mg SL SEECOM PRN 05/04/17 Budesonide/Formoterol Fumarate [Symbicort 160-4.5 Mcg Inhaler] 2 puff IH DAILY #1 hfa.aer.ad 12/05/17 Vancomycin Oral Soln [Vancocin HCl*] 5 ml PO Q6HR #280 ml 02/06/21 - Past Medical/Surgical History Diabetic: Yes -: Gout, skin cancer -: [place] disease, COPD, asthma, High cholesterol. -: HYPERLIPIDEMIA -: CKD - STAGE IV -: SPINAL STENOSIS -: GOUT -: OBSTRUCTIVE SLEEP APNEA -: MO -: NEUROPATHY -: ASTHMA -: HTN -: CHF -: cardiac Stent x 3 -: Operation lower back -: Left Hand nerve damage -: skin Cancer removal back and neck -: Left arm surgery -: hernia repair -: Cholecystectomy - Family History Father -: Heart disease Notes: MO Mother -: Heart disease, Hypertension Notes: bypass Brother -: Heart disease Notes: 4X BYPASS - Social History Alcohol use: No CD- Drugs: No Caffeine use: No Review of Systems Other: Except as documented, all other systems reviewed and negative. Physical Examination - Physical Exam General: Alert, In no apparent distress, Oriented x3, Obese (Morbidly obese) HEENT: PERRLA, Mucous membr. moist/pink, EOMI Neck: Supple, JVD not distended Respiratory: Clear to auscultation bilaterally, Diminished Cardiovascular: No edema, Regular rate/rhythm, Normal S1 S2, No murmurs Gastrointestinal: Normal bowel sounds, Soft and benign, Non-distended, No tenderness Musculoskeletal: No swelling, No erythema, No tenderness Integumentary: No rashes, No cyanosis, Other (Bilateral lower extremity venous stasis dermatitis) Neurological: Normal speech, Normal strength at 5/5 x4 extr Lymphatics: No axilla or inguinal lymphadenopathy - Studies Laboratory Data (last 24 hrs) 03/09/21 12:03: PT 11.3, INR 0.98, APTT 29.6 03/09/21 12:03: WBC 7.90 D, Hgb 15.5, Hct 47.7, Plt Count 143 L 03/09/21 12:03: Sodium 135 L, Potassium 5.1, BUN 27 H, Creatinine 1.99 H, Glucose 161 H, Total Bilirubin 0.4, AST 28, ALT 41, Alkaline Phosphatase 84, Lipase 69 L Microbiology Data (last 24 hrs): 03/09/21 12:13 Throat Group A Streptococcus Rapid Screen - Final Assessment and Plan - Problems (Diagnosis) (1) Pneumonia due to COVID-19 virus Current Visit: Yes Status: Acute (2) Acute respiratory failure with hypoxia Current Visit: Yes Status: Acute (3) Hypertension Onset Date: 08/04/16 Current Visit: No Status: Chronic Qualifiers: Hypertension type: essential hypertension (4) Obesity Onset Date: 12/07/17 Current Visit: No Status: Chronic Qualifiers: Obesity type: due to excess calories Obesity classification: adult class 3 (BMI >= 40) Serious obesity comorbidity presence: with serious comorbidity Body mass index: BMI 45.0-49.9 Qualified Code(s): E66.01 - Morbid (severe) obesity due to excess calories; Z68.42 - Body mass index (BMI) 45.0-49.9, adult (5) Obstructive sleep apnea Onset Date: 12/07/17 Current Visit: No Status: Chronic - Plan Place patient under observation. Start treatment for COVID-pneumonia with IV steroid, vitamin supplementation. Supplemental oxygen as needed. Lovenox for DVT prophylaxis. Consult to pulmonary. Collect and reconcile home medications. Assess for home oxygen. - Advance Directives Does patient have a Living Will: No Does patient have a Durable POA for Healthcare: No
[2021-03-09] MEDS ORDERED: ACETAMINOPHEN 500 MG TAB PO PRN (16:41)
[2021-03-09] MEDS ORDERED: ONDANSETRON 4 MG/2 ML VIAL IV PRN (16:41)
[2021-03-09 17:08] VITALS: BMI 47.9
[2021-03-09] MEDS: INSULIN -REGULAR HUMAN 50 UNIT/0.5 ML ML SQ SCH ×2 (17:17→21:00)
[2021-03-09] MEDS ORDERED: INSULIN -REGULAR HUMAN 50 UNIT/0.5 ML ML ONE ×2 (17:17→22:18)
[2021-03-09] MEDS: METHYLPREDNISOLONE 40 MG INJ IV SCH (21:00)
[2021-03-09] MEDS ORDERED: METHYLPREDNISOLONE 40 MG INJ ONE (22:07)
[2021-03-10 04:19] LABS: Absolute Lymphocytes (CBC) 0.4 K/uL (0.7-4.9); Lymphocytes % 9.3 % (15.3-44.8); RBC Red Blood Cell Count 5.52 M/uL (4.33-5.43)
[2021-03-10 04:47] LABS: Albumin 2.7 g/dL (3.4-5.0); Bilirubin Total 0.3 mg/dL (0.2-1.0); C-Reactive Protein 87.2 mg/L (<3.00); Ferritin 443.8 ng/mL (26-388); Magnesium 2.5 mg/dL (1.8-2.4); Phosphorus 2.8 mg/dL (2.5-4.9); Protein, Total 7.5 g/dL (6.4-8.2)
[2021-03-10 04:50] LABS: Potassium 5.7 mmol/L (3.5-5.1)
[2021-03-10] MEDS: INSULIN -REGULAR HUMAN 50 UNIT/0.5 ML ML SQ SCH ×4 (07:30→21:00)
[2021-03-10] MEDS ORDERED: INSULIN -REGULAR HUMAN 50 UNIT/0.5 ML ML ONE ×4 (08:07→22:28)
[2021-03-10] MEDS ORDERED: METOPROLOL TAR 50 MG TAB ONE ×2 (08:17→21:53)
[2021-03-10] MEDS ORDERED: PANTOPRAZOLE 40 MG INJ ONE (08:18)
[2021-03-10] MEDS ORDERED: TAMSULOSIN 0.4 MG SR CAP ONE (08:18)
[2021-03-10] MEDS ORDERED: ENOXAPARIN 40 MG/0.4 ML SQ ONE (08:18)
[2021-03-10] MEDS ORDERED: METHYLPREDNISOLONE 40 MG INJ ONE ×2 (08:18→21:54)
[2021-03-10] MEDS ORDERED: PREGABALIN 75 MG CAP PO ONE ×3 (08:18→21:53)
[2021-03-10] MEDS ORDERED: PNEUMOCOCCAL VACCINE 0.5 ML IMVAC ONE ×2 (08:20→09:00)
[2021-03-10] MEDS ORDERED: INFLUENZA VACCINE (for 6+ mo) 0.5 ML DOSE IMVAC ONE ×2 (08:20→09:00)
[2021-03-10] MEDS ORDERED: SOD POLYSTYREN SUL 15 GM/60 ML UCUP PO ONE (08:25)
[2021-03-10] MEDS: TAMSULOSIN 0.4 MG SR CAP PO SCH (08:39)
[2021-03-10] MEDS: METOPROLOL TAR 50 MG TAB PO SCH ×2 (08:41→21:00)
[2021-03-10] MEDS: PANTOPRAZOLE 40MG TABLET PO SCH ×2 (08:42→09:00)
[2021-03-10] MEDS: METHYLPREDNISOLONE 40 MG INJ IV SCH ×2 (08:42→21:00)
[2021-03-10] MEDS: ENOXAPARIN 40 MG/0.4 ML SQ SCH (08:42)
[2021-03-10] MEDS ORDERED: PANTOPRAZOLE 40 MG INJ IVP ONE (08:42)
[2021-03-10] MEDS: PREGABALIN 75 MG CAP PO SCH ×3 (08:42→21:00)
[2021-03-10] MEDS ORDERED: ENALAPRIL 10 MG TAB PO SCH (09:00)
[2021-03-10] MEDS ORDERED: FLUTICASONE 50MCG NASAL SPRAY NAS SCH (09:00)
[2021-03-10] MEDS ORDERED: HOME MED 1 EA UNK (Budesonide/Formoterol Fumarate [Symbicort 160-4.5 Mcg Inhaler] 10.2 GM IH SCH (09:00)
[2021-03-10] MEDS ORDERED: SODIUM CHLORIDE 0.9% 10ML INJ IV PRN (09:44)
[2021-03-10] MEDS ORDERED: SOD POLYSTYREN SUL 15 GM/60 ML UCUP ONE (11:07)
[2021-03-10] MEDS: allopurinoL 100 MG TAB PO SCH (11:16)
[2021-03-10] MEDS: ESCITALOPRAM 20 MG TAB PO SCH (11:16)
--- NOTE | 2021-03-10 15:31 | P.PN ---
Subjective Date of Service: 03/10/21 Chief Complaint: Shortness of breath Patient now requiring 3 L of oxygen by nasal cannula. He reports 1 episode of diarrhea. Physical Examination - Vital Signs Temperature: 96.7 F Blood Pressure: 186/92 Pulse: 68 Respirations: 22 Pulse Ox (%): 96 - Physical Exam General: In no apparent distress, Oriented x3, Obese HEENT: Mucous membr. moist/pink Neck: JVD not distended Respiratory: Diminished Cardiovascular: Regular rate/rhythm, Normal S1 S2, Edema (Bilateral lower extremities) Gastrointestinal: Soft and benign, Non-distended Musculoskeletal: No swelling Integumentary: No cyanosis Neurological: Normal strength at 5/5 x4 extr - Studies Microbiology Data (last 24 hrs): 03/09/21 12:13 Throat Group A Streptococcus Rapid Screen - Final Assessment And Plan - Current Problems (Diagnosis) (1) Pneumonia due to COVID-19 virus Current Visit: Yes Status: Acute (2) Acute respiratory failure with hypoxia Current Visit: Yes Status: Acute (3) Hypertension Onset Date: 08/04/16 Current Visit: No Status: Chronic Qualifiers: Hypertension type: essential hypertension (4) Obesity Onset Date: 12/07/17 Current Visit: No Status: Chronic Qualifiers: Obesity type: due to excess calories Obesity classification: adult class 3 (BMI >= 40) Serious obesity comorbidity presence: with serious comorbidity Body mass index: BMI 45.0-49.9 Qualified Code(s): E66.01 - Morbid (severe) obesity due to excess calories; Z68.42 - Body mass index (BMI) 45.0-49.9, adult (5) Obstructive sleep apnea Onset Date: 12/07/17 Current Visit: No Status: Chronic - Plan Continue IV steroid, vitamin supplementation. Supplemental oxygen as needed. Lovenox for DVT prophylaxis. Continue home medications. Correct hyperkalemia with oral Kayexalate. Arrange for home oxygen for discharge. CPAP at night.
[2021-03-10] MEDS ORDERED: INSULIN GLARGINE 100 UNIT/ML SQ ONE ×2 (16:34→16:47)
[2021-03-10] MEDS: ASCORBIC ACID 500 MG TABLET PO SCH (21:00)
[2021-03-10] MEDS ORDERED: INSULIN GLARGINE 100 UNIT/ML SQ SCH (21:00)
[2021-03-10] MEDS ORDERED: ATORVASTATIN 40 MG TAB PO SCH (21:00)
[2021-03-10] MEDS ORDERED: ASCORBIC ACID 500 MG TABLET ONE (21:53)
[2021-03-10] MEDS ORDERED: ATORVASTATIN 20 MG TAB ONE (21:54)
[2021-03-11 03:41] VITALS: TEMP 97.9
[2021-03-11 04:19] LABS: C-Reactive Protein 36.2 mg/L (<3.00); Ferritin 453.6 ng/mL (26-388)
[2021-03-11] MEDS: INSULIN -REGULAR HUMAN 50 UNIT/0.5 ML ML SQ SCH (07:30)
[2021-03-11] MEDS: PREGABALIN 75 MG CAP PO SCH (09:00)
[2021-03-11] MEDS: TAMSULOSIN 0.4 MG SR CAP PO SCH (09:00)
[2021-03-11] MEDS: allopurinoL 100 MG TAB PO SCH (09:00)
[2021-03-11] MEDS ORDERED: ZINC SULFATE 220 MG CAP PO SCH (09:00)
[2021-03-11] MEDS ORDERED: VITAMIN D 5,000 UNIT CAP PO SCH (09:00)
[2021-03-11] MEDS: ESCITALOPRAM 20 MG TAB PO SCH (09:00)
[2021-03-11] MEDS: METHYLPREDNISOLONE 40 MG INJ IV SCH (09:00)
[2021-03-11] MEDS: ASCORBIC ACID 500 MG TABLET PO SCH (09:00)
[2021-03-11] MEDS: METOPROLOL TAR 50 MG TAB PO SCH (09:00)
[2021-03-11] MEDS: PANTOPRAZOLE 40MG TABLET PO SCH (09:00)
[2021-03-11] MEDS: ENOXAPARIN 40 MG/0.4 ML SQ SCH (09:00)
[2021-03-11 09:26] VITALS: O2SAT 97
--- NOTE | 2021-03-11 09:33 | P.CNS ---
Date of Consult: 03/11/21 Reason for Consult: COVID pneumonia Chief Complaint: Shortness of breath History of Present Illness: AGe 80 metabolic synd HX of C defaw SOB for a week, tested pos for COVID a week ago,AW low sat doing well today/ c/o cough Allergies zolpidem [Zolpidem] Allergy (Verified 02/04/21 22:39) Delusions Home Medications: Atorvastatin Calcium [Lipitor*] 40 mg PO BEDTIME 01/17/15 Enalapril Maleate [Vasotec] 1 tab PO DAILY 01/17/15 Esomeprazole Magnesium [Nexium] 20 mg PO DAILY 01/17/15 Insulin Glargine,Hum.rec.anlog [Lantus] 50 unit SQ BEDTIME 01/17/15 Insulin Lispro [Humalog Kwikpen U-100] 40 unit SQ AC 01/17/15 Metoprolol Tartrate [Lopressor] 1 tab PO BID 01/17/15 Montelukast Sodium 1 tab PO DAILY 01/17/15 Pregabalin [Lyrica*] 1 cap PO TID 01/17/15 Tamsulosin HCl [Flomax] 1 cap PO DAILY 01/17/15 allopurinoL [Zyloprim*] 1 tab PO DAILY 01/17/15 Fluticasone [Flonase 50MCG Nasal [place]*] 2 puff DOMENICO DAILY 05/04/17 Nitroglycerin 0.4 mg SL SEECOM PRN 05/04/17 Budesonide/Formoterol Fumarate [Symbicort 160-4.5 Mcg Inhaler] 2 puff IH DAILY #1 hfa.aer.ad 12/05/17 Escitalopram [Lexapro*] 10 mg PO DAILY 03/09/21 Ascorbic Acid [Vitamin C*] 1,000 mg PO BID #120 tablet 03/10/21 Cholecalciferol (Vitamin D3) [Vitamin D3] 4,000 unit PO DAILY #60 capsule 03/10/21 Zinc Sulfate [Zinc Sulfate*] 220 mg PO DAILY #30 cap 03/10/21 predniSONE [Deltasone] 20 mg PO BID #15 tab 03/10/21 - Past Medical/Surgical History Diabetic: Yes -: Gout, skin cancer -: [place] disease, COPD, asthma, High cholesterol. -: HYPERLIPIDEMIA -: CKD - STAGE IV -: SPINAL STENOSIS -: GOUT -: OBSTRUCTIVE SLEEP APNEA -: [place] -: NEUROPATHY -: ASTHMA -: HTN -: CHF -: cardiac Stent x 3 -: Operation lower back -: Left Hand nerve damage -: skin Cancer removal back and neck -: Left arm surgery -: hernia repair -: Cholecystectomy - Family History Father Medical History: Heart disease Notes: [place] Mother Medical History: Heart disease, Hypertension Notes: bypass Brother Medical History: Heart disease Notes: 4X BYPASS - Social History Smoking Status: Never smoker Alcohol use: No CD- Drugs: No Caffeine use: No Review of Systems General: Weakness Respiratory: Cough, Shortness of Breath Physical Examination Temp Pulse Resp BP Pulse Ox 97.9 F 57 20 161/83 H 93 03/11/21 03:40 03/11/21 03:40 03/11/21 03:40 03/11/21 03:40 03/11/21 03:40 General: Alert, In no apparent distress, Oriented x3 - Problems (1) Pneumonia due to COVID-19 virus Current Visit: Yes Status: Acute Plan: Age 80 AW mild covid penumonia Doign well. RA sat normal plan to DC home on low dose decadron/ labs CXRY reviewed/ FU with me in 2wks
[2021-03-11] MEDS ORDERED: METOPROLOL TAR 50 MG TAB ONE (09:49)
[2021-03-11] MEDS ORDERED: ASCORBIC ACID 500 MG TABLET ONE (09:49)
[2021-03-11] MEDS ORDERED: TAMSULOSIN 0.4 MG SR CAP ONE (09:50)
[2021-03-11] MEDS ORDERED: PREGABALIN 75 MG CAP PO ONE (09:50)
[2021-03-11] MEDS ORDERED: PANTOPRAZOLE 40MG TABLET PO ONE (09:50)
[2021-03-11] MEDS ORDERED: ZINC SULFATE 220 MG CAP ONE (09:50)
[2021-03-11] MEDS ORDERED: METHYLPREDNISOLONE 40 MG INJ ONE (09:51)
[2021-03-11] MEDS ORDERED: ENOXAPARIN 40 MG/0.4 ML SQ ONE (09:51)
[2021-03-11] MEDS ORDERED: INSULIN -REGULAR HUMAN 50 UNIT/0.5 ML ML ONE (09:53)
--- NOTE | 2021-03-11 12:22 | P.DS ---
Admission Date: 03/09/21 Discharge Date: 03/11/21 Disposition: ROUTINE DISCHARGE Discharge Condition: FAIR Reason for Admission: Shortness of breath - Problems (1) Pneumonia due to COVID-19 virus Current Visit: Yes Status: Acute (2) Acute respiratory failure with hypoxia Current Visit: Yes Status: Acute (3) Hypertension Onset Date: 08/04/16 Current Visit: No Status: Chronic Qualifiers: Hypertension type: essential hypertension (4) Obesity Onset Date: 12/07/17 Current Visit: No Status: Chronic Qualifiers: Obesity type: due to excess calories Obesity classification: adult class 3 (BMI >= 40) Serious obesity comorbidity presence: with serious comorbidity Body mass index: BMI 45.0-49.9 Qualified Code(s): E66.01 - Morbid (severe) obesity due to excess calories; Z68.42 - Body mass index (BMI) 45.0-49.9, adult (5) Obstructive sleep apnea Onset Date: 12/07/17 Current Visit: No Status: Chronic (6) History of Clostridioides difficile colitis Current Visit: Yes Status: Acute Brief History of Present Illness: 80-year-old gentleman with a history of diabetes, obstructive sleep apnea, recent diagnosis of C. diff colitis presented to the emergency department with a complaint of progressive shortness of breath of 1 week duration. Symptoms associate symptoms of cough and fever. Patient stated he tested positive for COVID 1 week ago. He was in the emergency department earlier for shortness of breath. He was prescribed azithromycin and discharged home. Here in the ED patient noted to be hypoxic with oxygen saturation at 88% on room air. Chest x- ray demonstrated bilateral infiltrates consistent with COVID-pneumonia. Patient placed on oxygen by nasal cannula with SaO2 in the mid 90s. Not in respiratory distress. Patient admitted for further management. Hospital Course: Patient presented observation on the medical floor and treated with COVID- pneumonia with IV steroid, vitamin supplementation. He was initially requiring up to 2 L of oxygen by nasal cannula patient was eventually weaned off oxygen. His oxygen saturation today is 95% on room air with exertion. Patient seen in consultation by pulmonary. He is clinically improved and deemed stable for discharge. Patient is discharged with prednisone. He was recently treated for C. difficile colitis. He is complaining of intermittent diarrhea after comp leting the oral vancomycin. I have prescribed him another 1 month course of oral vancomycin. Vital Signs/Physical Exam: Temp Pulse Resp BP Pulse Ox 97.9 F 57 20 161/83 H 93 03/11/21 03:40 03/11/21 03:40 03/11/21 03:40 03/11/21 03:40 03/11/21 03:40 General: Alert, In no apparent distress, Obese (Morbidly obese) HEENT: Mucous membr. moist/pink Neck: JVD not distended Respiratory: Diminished (Bilateral) Cardiovascular: Regular rate/rhythm, Normal S1 S2 Gastrointestinal: Soft and benign Musculoskeletal: No swelling Integumentary: No rashes Neurological: Normal strength at 5/5 x4 extr Laboratory Data at Discharge: WBC 4.50 K/uL (4.3-10.9) D 03/10/21 03:41 Hgb 15.5 g/dL (13.6-17.9) 03/10/21 03:41 Hct 48.0 % (39.6-49.0) 03/10/21 03:41 Plt Count 150 K/uL (152-406) L 03/10/21 03:41 PT 11.3 SECONDS (9.5-12.5) 03/09/21 12:03 INR 0.98 03/09/21 12:03 APTT 29.6 SECONDS (24.3-36.9) 03/09/21 12:03 Sodium 134 mmol/L (136-145) L 03/10/21 03:41 Potassium 5.7 mmol/L (3.5-5.1) H* 03/10/21 03:41 BUN 29 mg/dL (7-18) H 03/10/21 03:41 Creatinine 1.87 mg/dL (0.55-1.3) H 03/10/21 03:41 Glucose 396 mg/dL (74-106) H 03/10/21 03:41 Phosphorus 2.8 mg/dL (2.5-4.9) 03/10/21 03:41 Magnesium 2.5 mg/dL (1.8-2.4) H 03/10/21 03:41 Total Bilirubin 0.3 mg/dL (0.2-1.0) 03/10/21 03:41 AST 23 U/L (15-37) 03/10/21 03:41 ALT 39 U/L (12-78) 03/10/21 03:41 Alkaline Phosphatase 86 U/L (45-117) 03/10/21 03:41 Lipase 69 U/L (73-393) L 03/09/21 12:03 Home Medications: Atorvastatin Calcium [Lipitor*] 40 mg PO BEDTIME 01/17/15 Enalapril Maleate [Vasotec] 1 tab PO DAILY 01/17/15 Esomeprazole Magnesium [Nexium] 20 mg PO DAILY 01/17/15 Insulin Glargine,Hum.rec.anlog [Lantus] 50 unit SQ BEDTIME 01/17/15 Insulin Lispro [Humalog Kwikpen U-100] 40 unit SQ AC 01/17/15 Metoprolol Tartrate [Lopressor] 1 tab PO BID 01/17/15 Montelukast Sodium 1 tab PO DAILY 01/17/15 Pregabalin [Lyrica*] 1 cap PO TID 01/17/15 Tamsulosin HCl [Flomax] 1 cap PO DAILY 01/17/15 allopurinoL [Zyloprim*] 1 tab PO DAILY 01/17/15 Fluticasone [Flonase 50MCG Nasal [place]*] 2 puff DOMENICO DAILY 05/04/17 Nitroglycerin 0.4 mg SL SEECOM PRN 05/04/17 Budesonide/Formoterol Fumarate [Symbicort 160-4.5 Mcg Inhaler] 2 puff IH DAILY #1 hfa.aer.ad 12/05/17 Escitalopram [Lexapro*] 10 mg PO DAILY 03/09/21 Ascorbic Acid [Vitamin C*] 1,000 mg PO BID #120 tablet 03/10/21 Cholecalciferol (Vitamin D3) [Vitamin D3] 4,000 unit PO DAILY #60 capsule 03/10/21 Zinc Sulfate [Zinc Sulfate*] 220 mg PO DAILY #30 cap 03/10/21 predniSONE [Deltasone] 20 mg PO BID #15 tab 03/10/21 Vancomycin HCl 125 mg PO Q6H #120 capsule 03/11/21 New Medications: predniSONE [Deltasone] 20 mg PO BID #15 tab Vancomycin HCl 125 mg PO Q6H #120 capsule Ascorbic Acid [Vitamin C*] 1,000 mg PO BID #120 tablet Cholecalciferol (Vitamin D3) [Vitamin D3] 4,000 unit PO DAILY #60 capsule Zinc Sulfate [Zinc Sulfate*] 220 mg PO DAILY #30 cap Diet: AHA Activity: Ad baldemar Followup: NONE,NONE [Primary Care Provider] -
[2021-03-11 13:24] VITALS: BP 157/71
== END 2021-03-11 13:24 | disposition home or self-care (01) ==
LOC: ER 11:23 → ERHOLD 16:35
PROVIDERS: ADMIT Internal Medicine; ATTEND Internal Medicine
DX: U07.1 COVID-19 (principal); J12.82 Pneumonia due to coronavirus disease 2019; J96.01 Acute respiratory failure with hypoxia; G47.33 Obstructive sleep apnea (adult) (pediatric); J44.9 Chronic obstructive pulmonary disease, unspecified; A04.72 Enterocolitis due to Clostridium difficile, not specified as recurrent; E87.5 Hyperkalemia; I13.0 Hypertensive heart and chronic kidney disease with heart failure and stage 1 through stage 4 chronic kidney disease, or unspecified chronic kidney disease; E11.22 Type 2 diabetes mellitus with diabetic chronic kidney disease; N18.4 Chronic kidney disease, stage 4 (severe); I50.9 Heart failure, unspecified; A69.20 Lyme disease, unspecified; E11.40 Type 2 diabetes mellitus with diabetic neuropathy, unspecified; E78.5 Hyperlipidemia, unspecified; E78.00 Pure hypercholesterolemia, unspecified; M10.9 Gout, unspecified; I25.2 Old myocardial infarction; M48.00 Spinal stenosis, site unspecified; E66.01 Morbid (severe) obesity due to excess calories; Z68.42 Body mass index [BMI] 45.0-49.9, adult; Z95.5 Presence of coronary angioplasty implant and graft; Z79.4 Long term (current) use of insulin; Z88.8 Allergy status to other drugs, medicaments and biological substances; Z85.828 Personal history of other malignant neoplasm of skin; Z90.49 Acquired absence of other specified parts of digestive tract; Z82.49 Family history of ischemic heart disease and other diseases of the circulatory system
CPT/HCPCS: 93005; 87040 ×2; 87070; 85025 ×2; 80048; 36415 ×2; 83735; 84100; 85610; 82947 ×7; 85379 ×3; 80076; 87081; 83605 ×2; 85730; 84484; 82728 ×3; 83690; 80053; 84145; 0240U; 86140 ×3; 71045; 90471; 90732; 94760 ×3; Q2035; C9113; J1650 ×2; J2930; J2920 ×4; G0378

== ENCOUNTER → 2022-03-12 | Emergency (ER) | payer OTHER ==
[~2022-03-12] MED LIST: ASPIRIN EC 81 MG TAB PO ONE; MORPHINE 2 MG/ML SYR ONE; ONDANSETRON 4 MG/2 ML VIAL ONE
--- OUTSIDE RECORDS SUMMARY | 2022-03-12 21:17 | XMS REPORT | Continuity of Care Document ---
:1940 Author Organization [facility] t Address [facility] [place] [address] Care Team Providers Name Role Phone ESPERANZA MUSTAFA Primary Care Physician Unavailable ESPERANZA MUSTAFA Attending Clinician Unavailable Pop LOPEZ, Pooja Marcum Attending Clinician Esperanza Mustafa MD Attending Clinician [phone] Gilmar Mccauley MD Attending Clinician Doctor Unassigned, St[place] Attending Clinician Unavailable NIA BROWN Attending Clinician Unavailable Kym Knapp RN Attending Clinician Unavailable Olena Hector MD Attending Clinician WILDER ISLAS Attending Clinician Unavailable KYLEIGH GILLILAND Attending Clinician Unavailable DOUGLAS VASQUES Attending Clinician Unavailable Aquiles Silva MD Attending Clinician AQUILES SILVA Attending Clinician Unavailable JAY DOLAN Attending Clinician Unavailable Bonita Ray LMSW Attending Clinician Vaccine, Brett Family Attending Clinician Unavailable KT ALICEA Attending Clinician Unavailable DELROY LEDESMA Attending Clinician Unavailable DIONNA PAREDES Attending Clinician Unavailable ABDULAZIZ ROMERO Attending Clinician Unavailable KIMBER VOGEL Attending Clinician Unavailable OLENA HECTOR Attending Clinician Unavailable BALJIT YODER Attending Clinician Unavailable KARLI HUMPHREYS Attending Clinician Unavailable BALJIT YODER Admitting Clinician Unavailable Payers Payer Name Policy Type Policy Number Effective Date Expiration Date Dinorah alvarez MEDICARE PART A [id number] 1987 \\T\\ B 00:00:00 NANCY YOUNGER PLS [id number] 2019 O 00:00:00 Problems Condition Condition Condition Status Onset Resolution Last Treating Co mments Source Name Details Category Date Date Treatment Clinician Date Troponin I Troponin I Disease Active U nivers above above 4-04 [place] COPD COPD Disease Active Univers exacerbati exacerbati 4-04 it y of on on 00:00: [place] [facility] Coronary Coronary Disease Active Unive rs artery artery 4-04 ity of disease disease 00:00: [place] involving involving 00 [facility] [place] Branch coronary coronary artery of artery of [place] heart heart without without angina angina pectoris [...] disc disc 3-10 ity of 00:00: [place] [facility] Herniated Herniated Disease Active Uni vers disc disc 3-10 ity of 00:00: [place] [facility] 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 [place] without [place] [facility] myelopathy myelopathy Br anch Radicular Radicular Disease Active Uni vers pain of pain of 5-19 ity of lower lower 00:00: [place] extremity extremity 00 [facility] Branch Chronic Chronic Disease Active Univers pain pain 5-19 ity of disorder disorder 00:00: [place] 00 Medical Branch Neuropathy Neuropathy Disease Active U nivers due to due to 5-19 ity of secondary secondary 00:00[place] diabetes diabetes 00 Medica l Branch Physical Physical Disease Active Unive rs deconditio deconditio 5-19 it y of dayami dayami 00:00: [place] 00 Medical Branch Chronic Chronic Disease Active Univers [...] Active Univers 5-10 ity of 00:00: [place] [facility] Congestive Congestive Disease Active 2011-02 Overview : Univers 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 ICD10 Diagnosis Term [employer] Gout Gout Disease Active 2011-02 Univers 0-19 ity of 00:00: [place] 00 Medical Branch Backache Backache Disease Active Overview: Un jb 4-20 Formattin ity of 00:00: g of this [place] note Medical might be Branch different from the original. ICD10 Diagnosis Term [employer] Essential Essential Disease Active Uni vers [...] of idiopathic idiopathic 00:00: g of this [place] peripheral peripheral 00 note Me dical neuropathy neuropathy might be Branch different from the original. ICD10 Diagnosis Term [employer] Chest pain Chest pain Disease Active Overview : Univers 4-30 Formattin ity of 00:00: g of this [place] 00 note Medical might be Branch different from the original. ICD10 Diagnosis Term [employer] HLD HLD Disease Active Overview: Univer s (hyperlipi (hyperlipi 29 Formattin ity of demia) demia) 00:00: g of this [place] 00 note Medical might be Branch different from the original. ICD10 Diagnosis Term [employer] Chronic Chronic Disease Active Univers kidney kidney 29 ity of disease, disease, 00:00: [place] stage II stage II 00 Medica l (mild) (mild) Branch Coronary Coronary Disease Active Unive rs atheroscle atheroscle 29 it y of rosis of rosis of 00:00: [place] 00 Medical coronary coronary Branch artery artery Spinal Spinal Disease Active Univers stenosis stenosis 29 ity of of lumbar of lumbar 00:00[place] 00 Medical without without Branch neurogenic neurogenic claudicati claudicati on on Skin Skin Disease Active [facility] cancer cancer ity of [facility] 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 [facility] Allergies, Adverse Reactions, Alerts Allergy Allergy Status Severity Reaction(s) Onset Inactive Treating Comm ents Source Name Type Date Date Clinician Zolpidem Propensi Active Nausea Only U nivers ty to 4-08 ity of adverse 00:00: [place] reaction 00 Medical s to Branch drug ZOLPIDEM DRUG Active NAUSEA ONLY Uni vers INGREDI -08 ity of 00:00: [place] 00 [facility] Social History Social Habit Start Date Stop Date Quantity Comments Source History of tobacco Cigarette Smoker University of use [facility] Exposure to 2021-10-29 2021-11-08 Not sure University SARS-CoV-2 (event) 00:00:00 14:33:00 [facility] Alcohol intake 2021-11-08 2021-11-08 Current University of 00:00:00 00:00:00 non-drinker of [facility] alcohol Branch (finding) Tobacco Comment 2021-11-08 2021-11-08 quit 50 years Univer sity of 00:00:00 00:00:00 ago [facility] Cigarettes smoked 2021-11-08 2021-11-08 Univers ity of current (pack per 00:00:00 00:00:00 ) - Reported Branch Cigarette 2021-11-08 2021-11-08 University of pack-years 00:00:00 00:00:00 [facility] Tobacco use and 2021-11-08 2021-11-08 Smokeless Universit y of exposure 00:00:00 00:00:00 tobacco non-user [facility] Sex Ass[birth year] At [birth year] Universit y of 00:00:00 00:00:00 [facility] Smoking Status Start Date Stop Date Source Ex-smoker 2021-11-08 00:00:00 2021-11-08 00:00:[facility] Medications Ordered Filled Start Stop Current Ordering Indication Dosage Frequency Signature Comments Components Source Medication Medication Date Date Medication? Clinician (SIG) Name Name ESOMEPRAZOL Yes [id number] TAKE 1 Univers E 20 mg -03 CAPSULE BY ity of capsule 00:00: MOUTH [place] 00 EVERY DAY [facility] Branch Insulin 2021-02 Yes [id number] Use as Univ ers [place], 2-15 directed ity of Disposable, 00:00: [place] (DROPLET 00 Medical PEN NEEDLE) Branch 31 gauge x 1/4" Ndle Insulin 2021-02 Yes [id number] Use as Univ ers [place], 2-15 directed ity of Disposable, 00:00: [place] (DROPLET 00 Medical PEN NEEDLE) Branch 31 gauge x 1/4" Ndle Lancets 2021-02 Yes [id number] Use as Uni vers (ACCU-CHEK 2-08 directed ity o f SOFTCLIX 00:00: [place] LANCETS) 00 [facility] Alcohol 2021-02 Yes [id number] Use as Uni vers Swabs (BD 2-08 directed ity of SINGLE USE 00:00: [place] SWABS 00 Medical REGULAR) Branch PadM Lancets 2021-02 Yes [id number] Use as Uni vers (ACCU-CHEK 2-08 directed ity o f SOFTCLIX 00:00: [place] LANCETS) 00 [facility] Alcohol 2021-02 Yes [id number] Use as Uni vers Swabs (BD 2-08 directed ity of SINGLE USE 00:00: [place] SWABS 00 Medical REGULAR) Branch PadM Lancets 2021-02 Yes [id number] Use as Uni vers (ACCU-CHEK 2-08 directed ity o f SOFTCLIX 00:00: [place] LANCETS) 00 [facility] Branch Alcohol 2021-02 Yes [id number] Use as Uni vers Swabs (BD 2-08 directed ity of SINGLE USE 00:00: [place] SWABS 00 Medical REGULAR) Branch PadM pregabalin 2021-02 Yes [id number] 75mg Take 1 Univers 75 mg 2-07 capsule by ity of capsule 00:00: mouth in [place] 00 the Medical morning Branch and 1 capsule at noon and 1 capsule in the evening. blood sugar 2021-02 Yes [id number] Test 4x Univers diagnostic 2-07 daily for ity of (ACCU-CHEK 00:00: [place] FOREST PLUS 00 code E11.9 Med ical TEST STRP) Branch strip pregabalin 2021-02 Yes [id number] 75mg Take 1 Univers 75 mg 2-07 capsule by ity of capsule 00:00: mouth in [place] 00 the Medical morning Branch and 1 capsule at noon and 1 capsule in the evening. enalapril 2021-02 Yes [id number] 20mg Take 1 Uni vers 20 mg 2-07 tablet by ity of tablet 00:00: mouth in [place] the Medical morning. Branch pregabalin 2021-02 Yes [id number] 75mg Take 1 Univers 75 mg 2-07 capsule by ity of capsule 00:00: mouth in [place] the Medical morning Branch and 1 capsule at noon and 1 capsule in the evening. blood sugar 2021-02 Yes [id number] Test 4x Univers diagnostic 2-07 daily for ity of (ACCU-CHEK 00:00: [place] FOR[place] PLUS 00 code E11.9 Med ical TEST STRP) Branch strip enalapril 2021-02 Yes [id number] 20mg Take 1 Uni vers 20 mg 2-07 tablet by ity of tablet 00:00: mouth in [place] the Medical morning. Branch pregabalin 2021-02 Yes [id number] 75mg Take 1 Univers 75 mg 2-07 capsule by ity of capsule 00:00: mouth in [place] the Medical morning Branch and 1 capsule at noon and 1 capsule in the evening. blood sugar 2021-02 Yes [id number] Test 4x Univers diagnostic 2-07 daily for ity of (ACCU-CHEK 00:00: [place] FOR[place] PLUS 00 code E11.9 Med ical TEST STRP) Branch strip enalapril 2021-02 Yes [id number] 20mg Take 1 Uni vers 20 mg 2-07 tablet by ity of tablet 00:00: mouth in [place] 00 the Medical morning. Branch Blood 2021-02 Yes [id number] Use as Unive rs Glucose 2-06 needed per ity of Control 00:00: manufactur [place] High&Low 00 er's Medical (ACCU-CHEK recommenda [facility] FOREST tions CONTROL SOLN) Soln Insulin 2021-02 Yes [id number] 50U inject 50 Univers Glargine 2-06 Units ity of (LANTUS 00:00: under the [place] SOLOSTAR 00 skin at Medical U-100 bedtime. Branch INSULIN) 100 unit/mL (3 mL) injection Blood 2021-02 Yes [id number] Use as Unive rs Glucose 2-06 needed per ity of Control 00:00: manufactur [place] High&Low 00 er's Medical (ACCU-CHEK recommenda [facility] CONTROL SOLN) Soln Insulin 2021-02 Yes [id number] 50U inject 50 Univers Glargine 2-06 Units ity of (LANTUS 00:00: under the [place] [facility] U-100 bedtime. Branch INSULIN) 100 unit/mL (3 mL) injection insulin 2021-02 Yes [id number] 40U inject 40 Univers aspart 2-06 Units ity of U-100 00:00: under the [place] (NOVOLOG 00 skin in Medical FLEXPEN the Branch U-100 morning INSULIN) and 40 100 unit/mL Units at (3 mL) noon and injection 40 Units in the evening. inject before meals. Blood 2021-02 Yes [id number] Use as Unive rs Glucose 2-06 needed per ity of Control 00:00: manufactur [place] High&Low 00 er's Medical (ACCU-CHEK recommenda [facility] FOREST tions CONTROL SOLN) Soln Insulin 2021-02 Yes [id number] 50U inject 50 Univers Glargine 2-06 Units ity of (LANTUS 00:00: under the [place] SOLOSTAR 00 skin at [facility] U-100 bedtime. Branch INSULIN) 100 unit/mL (3 mL) injection insulin 2021-02 Yes [id number] 40U inject 40 Univers aspart 2-06 Units ity of U-100 00:00: under the [place] (NOVOLOG 00 skin in Medical FLEXPEN the Branch U-100 morning INSULIN) and 40 100 unit/mL Units at (3 mL) noon and injection 40 Units in the evening. inject before meals. Blood 2021-02 Yes [id number] Use as Unive rs Glucose 2-06 needed per ity of Control 00:00: [facility] High&Low 00 er's [facility] (ACCU-CHEK recommenda [facility] CONTROL SOLN) Soln Insulin 2021-02 Yes [id number] 50U inject 50 Univers Glargine 2-06 Units ity of (LANTUS 00:00: under the [place] SOLOSTAR 00 skin at [facility] U-100 bedtime. Branch INSULIN) 100 unit/mL (3 mL) injection insulin 2021-02 Yes [id number] 40U inject 40 Univers aspart 2-06 Units ity of U-100 00:00: under the [place] (NOVOLOG 00 skin in [facility] FLEXPEN the Branch U-100 morning INSULIN) and 40 100 unit/mL Units at (3 mL) noon and injection 40 Units in the evening. inject before meals. Blood 2021-02 Yes [id number] Use as Unive rs Glucose 2-06 needed per ity of Control 00:00: [facility] High&Low 00 '[facility] (ACCU-CHEK recommenda [facility] FOREST tions CONTROL SOLN) Soln Insulin 2021-02 Yes [id number] 50U inject 50 Univers Glargine 2-06 Units ity of (LANTUS 00:00: under the [place] SOLOSTAR 00 skin at Medical U-100 bedtime. Branch INSULIN) 100 unit/mL (3 mL) injection insulin 2021-02 Yes [id number] 40U inject 40 Univers aspart 2-06 Units ity of U-100 00:00: under the [place] (NOVOLOG 00 skin in Medical FLEXPEN the Branch U-100 morning INSULIN) and 40 100 unit/mL Units at (3 mL) noon and injection 40 Units in the evening. inject before meals. Blood 2021-02 Yes [id number] Use as Unive rs Glucose 2-06 needed per ity of Control 00:00: manufactur [place] High&Low 00 er's Medical (ACCU-CHEK recommenda [facility] FOREST tions CONTROL SOLN) Soln Insulin 2021-02 Yes [id number] 50U inject 50 Univers Glargine 2-06 Units ity of (LANTUS 00:00: under the [place] SOLOSTAR 00 skin at Medical U-100 bedtime. Branch INSULIN) 100 unit/mL (3 mL) injection insulin 2021-02 Yes [id number] 40U inject 40 Univers aspart 2-06 Units ity of U-100 00:00: under the [place] (NOVOLOG 00 skin in Medical FLEXPEN the Branch U-100 morning INSULIN) and 40 100 unit/mL Units at (3 mL) noon and injection 40 Units in the evening. inject before meals. Blood 2021-02 Yes [id number] Use as Unive rs Glucose 2-06 needed per ity of Control 00:00: [facility] High[facility]Low 00 er's Medical (ACCU-CHEK recommenda [facility] FOREST tions CONTROL SOLN) Soln Insulin 2021-02 Yes [id number] 50U inject 50 Univers Glargine 2-06 Units ity of (LANTUS 00:00: under the [place] SOLOSTAR 00 skin at Medical U-100 bedtime. Branch INSULIN) 100 unit/mL (3 mL) injection insulin 2021-02 Yes [id number] 40U inject 40 Univers aspart 2-06 Units ity of U-100 00:00: under the [place] (NOVOLOG 00 skin in Medical FLEXPEN the Branch U-100 morning INSULIN) and 40 100 unit/mL Units at (3 mL) noon and injection 40 Units in the evening. inject before meals. Blood 2021-02 Yes [id number] Use as Unive rs Glucose 2-06 needed per ity of Control 00:00: [place]ur [place] High&Low 00 er's Medical (ACCU-CHEK recommenda [facility] FOREST tions CONTROL SOLN) Soln Insulin 2021-02 Yes [id number] 50U inject 50 Univers Glargine 2-06 Units ity of (LANTUS 00:00: under the [place] SOLOSTAR 00 skin at Medical U-100 bedtime. Branch INSULIN) 100 unit/mL (3 mL) injection insulin 2021-02 Yes [id number] 40U inject 40 Univers aspart 2-06 Units ity of U-100 00:00: under the [place] (NOVOLOG 00 skin in [facility] FLEXPEN the Branch U-100 morning INSULIN) and 40 100 unit/mL Units at (3 mL) noon and injection 40 Units in the evening. inject before meals. Blood 2021-02 Yes [id number] Use as Unive rs Glucose 2-06 needed per ity of Control 00:00: [facility] High&Low 00 '[facility] (ACCU-CHEK recommenda [facility] CONTROL SOLN) Soln Insulin 2021-02 Yes [id number] 50U inject 50 Univers Glargine 2-06 Units ity of (LANTUS 00:00: under the [place] [address] [place] [facility] U-100 bedtime. Branch INSULIN) 100 unit/mL (3 mL) injection insulin 2021-02 Yes [id number] 40U inject 40 Univers aspart 2-06 Units ity of U-100 00:00: under the [place] [facility] morning INSULIN) and 40 100 unit/mL Units at (3 mL) noon and injection 40 Units in the evening. inject before meals. Blood 2021-02 Yes [id number] Use as Unive rs Glucose 2-06 needed per ity of Control 00:00: [facility] High&[address] (ACCU-CHEK recommenda [facility] FOREST tions CONTROL SOLN) Soln Insulin 2021-02 Yes [id number] 50U inject 50 Univers Glargine 2-06 Units ity of (LANTUS 00:00: under the [place] [address] skin at [facility] U-100 bedtime. Branch INSULIN) 100 unit/mL (3 mL) injection insulin 2021-02 Yes [id number] 40U inject 40 Univers aspart 2-06 Units ity of U-100 00:00: under the [place] (NOVOLOG 00 skin in [facility] FLEXPEN the Branch U-100 morning INSULIN) and 40 100 unit/mL Units at (3 mL) noon and injection 40 Units in the evening. inject before meals. TAMSULOSIN 2021-02 Yes [id number] TAKE 1 Univers 0.4 mg 24 1-18 9102 CAPSULE ity of hr capsule 00:00: EVERY DAY [place] [facility] FINASTERIDE 2021-02 Yes [id number] TAKE 1 Univers 5 mg tablet 1-18 9102 TABLET ity of 00:00: EVERY DAY [place] [facility] MONTELUKAST 2021-02 Yes [id number] TAKE 1 Univers 10 mg 1-18 TABLET ity of tablet 00:00: EVERY DAY [place] [facility] ALLOPURINOL 2021-02 Yes [id number] TAKE 1 Univers 100 mg 1-18 TABLET ity of tablet 00:00: EVERY DAY [place] [facility] TAMSULOSIN 2021-02 Yes [id number] TAKE 1 Univers 0.4 mg 24 1-18 9102 CAPSULE ity of hr capsule 00:00: EVERY DAY [facility] FINASTERIDE 2021-02 Yes [id number] TAKE 1 Univers 5 mg tablet 1-18 9102 TABLET ity of 00:00: EVERY DAY [place] [facility] MONTELUKAST 2021-02 Yes [id number] TAKE 1 Univers 10 mg 1-18 TABLET ity of tablet 00:00: EVERY DAY [place] [facility] ALLOPURINOL 2021-02 Yes [id number] TAKE 1 Univers 100 mg 1-18 TABLET ity of tablet 00:00: EVERY DAY [place] [facility] ESCITALOPRA 2021-02 Yes [id number] 10mg TAKE 1 Univers M OXALATE 1-18 TABLET BY ity o f 10 mg 00:00: MOUTH [place] tablet DAILY [facility] TAMSULOSIN 2021-02 Yes [id number] TAKE 1 Univers 0.4 mg 24 1-18 9102 CAPSULE ity of hr capsule 00:00: EVERY DAY [facility] FINASTERIDE 2021-02 Yes [id number] TAKE 1 Univers 5 mg tablet 1-18 9102 TABLET ity of 00:00: EVERY DAY [place] [facility] MONTELUKAST 2021-02 Yes [id number] TAKE 1 Univers 10 mg 1-18 TABLET ity of tablet 00:00: EVERY DAY [place] [facility] ALLOPURINOL 2021-02 Yes [id number] TAKE 1 Univers 100 mg 1-18 TABLET ity of tablet 00:00: EVERY DAY [address] ESCITALOPRA 2021-02 Yes [id number] 10mg TAKE 1 Univers M OXALATE 1-18 TABLET BY ity o f 10 mg 00:00: MOUTH [place] tablet DAILY Medical Branch TAMSULOSIN 2021-02 Yes [id number] TAKE 1 Univers 0.4 mg 24 1-18 9102 CAPSULE ity of hr capsule 00:00: EVERY DAY [place] [facility] FINASTERIDE 2021-02 Yes [id number] TAKE 1 Univers 5 mg tablet 1-18 9102 TABLET ity of 00:00: EVERY DAY [facility] MONTELUKAST 2021-02 Yes [id number] TAKE 1 Univers 10 mg 1-18 TABLET ity of tablet 00:00: EVERY DAY [place] [facility] ALLOPURINOL 2021-02 Yes [id number] TAKE 1 Univers 100 mg 1-18 TABLET ity of tablet 00:00: EVERY DAY [place] [facility] ESCITALOPRA 2021-02 Yes [id number] 10mg TAKE 1 Univers M OXALATE 1-18 TABLET BY ity o f 10 mg 00:00: MOUTH [place] tablet DAILY Medical Branch TAMSULOSIN 2021-02 Yes [id number] TAKE 1 Univers 0.4 mg 24 1-18 9102 CAPSULE ity of hr capsule 00:00: EVERY DAY [facility] FINASTERIDE 2021-02 Yes [id number] TAKE 1 Univers 5 mg tablet 1-18 9102 TABLET ity of 00:00: EVERY DAY [place] [facility] MONTELUKAST 2021-02 Yes [id number] TAKE 1 Univers 10 mg 1-18 TABLET ity of tablet 00:00: EVERY DAY [facility] ALLOPURINOL 2021-02 Yes [id number] TAKE 1 Univers 100 mg 1-18 TABLET ity of tablet 00:00: EVERY DAY [place] [facility] ESCITALOPRA 2021-02 Yes [id number] 10mg TAKE 1 Univers M OXALATE 1-18 TABLET BY ity o f 10 mg 00:00: MOUTH [place] tablet 00 DAILY Medical Branch TAMSULOSIN 2021-02 Yes [id number] TAKE 1 Univers 0.4 mg 24 1-18 9102 CAPSULE ity of hr capsule 00:00: EVERY DAY [place] [facility] FINASTERIDE 2021-02 Yes [id number] TAKE 1 Univers 5 mg tablet 1-18 9102 TABLET ity of 00:00: EVERY DAY [place] [facility] MONTELUKAST 2021-02 Yes [id number] TAKE 1 Univers 10 mg 1-18 TABLET ity of tablet 00:00: EVERY DAY [facility] ALLOPURINOL 2021-02 Yes [id number] TAKE 1 Univers 100 mg 1-18 TABLET ity of tablet 00:00: EVERY DAY [facility] ESCITALOPRA 2021-02 Yes [id number] 10mg TAKE 1 Univers M OXALATE 1-18 TABLET BY ity o f 10 mg 00:00: MOUTH [place] tablet DAILY Medical Branch TAMSULOSIN 2021-02 Yes [id number] TAKE 1 Univers 0.4 mg 24 1-18 9102 CAPSULE ity of hr capsule 00:00: EVERY DAY [place] [facility] FINASTERIDE 2021-02 Yes [id number] TAKE 1 Univers 5 mg tablet 1-18 9102 TABLET ity of 00:00: EVERY DAY [place] [facility] MONTELUKAST 2021-02 Yes [id number] TAKE 1 Univers 10 mg 1-18 TABLET ity of tablet 00:00: EVERY DAY [place] [facility] ALLOPURINOL 2021-02 Yes [id number] TAKE 1 Univers 100 mg 1-18 TABLET ity of tablet 00:00: EVERY DAY [facility] ESCITALOPRA 2021-02 Yes [id number] 10mg TAKE 1 Univers M OXALATE 1-18 TABLET BY ity o f 10 mg 00:00: MOUTH [place] tablet DAILY Medical [place] TAMSULOSIN 2021-02 Yes [id number] TAKE 1 Univers 0.4 mg 24 1-18 9102 CAPSULE ity of hr capsule 00:00: EVERY DAY [facility] FINASTERIDE 2021-02 Yes [id number] TAKE 1 Univers 5 mg tablet 1-18 9102 TABLET ity of 00:00: EVERY DAY [facility] MONTELUKAST 2021-02 Yes [id number] TAKE 1 Univers 10 mg 1-18 TABLET ity of tablet 00:00: EVERY DAY [place] [facility] ALLOPURINOL 2021-02 Yes [id number] TAKE 1 Univers 100 mg 1-18 TABLET ity of tablet 00:00: EVERY DAY [place] [facility] ESCITALOPRA 2021-02 Yes [id number] 10mg TAKE 1 Univers M OXALATE 1-18 TABLET BY ity o f 10 mg 00:00: MOUTH [place] tablet DAILY Medical [place] TAMSULOSIN 2021-02 Yes [id number] TAKE 1 Univers 0.4 mg 24 1-18 9102 CAPSULE ity of hr capsule 00:00: EVERY DAY [place] [facility] FINASTERIDE 2021-02 Yes [id number] TAKE 1 Univers 5 mg tablet 1-18 9102 TABLET ity of 00:00: EVERY DAY [facility] MONTELUKAST 2021-02 Yes [id number] TAKE 1 Univers 10 mg 1-18 TABLET ity of tablet 00:00: EVERY DAY [place] [facility] ALLOPURINOL 2021-02 Yes [id number] TAKE 1 Univers 100 mg 1-18 TABLET ity of tablet 00:00: EVERY DAY [place] [facility] ESCITALOPRA 2021-02 Yes [id number] 10mg TAKE 1 Univers M OXALATE 1-18 TABLET BY ity o f 10 mg 00:00: MOUTH [place] tablet 00 DAILY Medical [place] TAMSULOSIN 2021-02 Yes [id number] TAKE 1 Univers 0.4 mg 24 1-18 9102 CAPSULE ity of hr capsule 00:00: [place] DAY [place] [facility] FINASTERIDE 2021-02 Yes [id number] TAKE 1 Univers 5 mg tablet 1-18 9102 TABLET ity of 00:00: EVERY DAY [place] [facility] MONTELUKAST 2021-02 Yes [id number] TAKE 1 Univers 10 mg 1-18 TABLET ity of tablet 00:00: EVERY DAY [place] [facility] ALLOPURINOL 2021-02 Yes [id number] TAKE 1 Univers 100 mg 1-18 TABLET ity of tablet 00:00: EVERY DAY [place] [facility] [facility] ESCITALOPRA 2021-02 Yes [id number] 10mg TAKE 1 [facility] M OXALATE 1-18 TABLET BY ity o f 10 mg 00:00: MOUTH [place] tablet 00 DAILY Medical [place] TAMSULOSIN 2021-02 Yes [id number] TAKE 1 [facility] 0.4 mg 24 1-18 9102 CAPSULE ity of hr capsule 00:00: [place] DAY [place] [facility] FINASTERIDE 2021-02 Yes [id number] TAKE 1 [facility] 5 mg tablet 1-18 9102 TABLET ity of 00:00: EVERY DAY [place] [facility] MONTELUKAST 2021-02 Yes [id number] TAKE 1 [facility] 10 mg 1-18 TABLET ity of tablet 00:00: EVERY DAY [place] [facility] ALLOPURINOL 2021-02 Yes [id number] TAKE 1 [facility] 100 mg 1-18 TABLET ity of tablet 00:00: EVERY DAY [place] [facility] ESCITALOPRA 2021-02 Yes [id number] 10mg TAKE 1 [facility] M OXALATE 1-18 TABLET BY ity o f 10 mg 00:00: MOUTH [place] tablet DAILY Medical [place] TAMSULOSIN 2021-02 Yes [id number] TAKE 1 [facility] 0.4 mg 24 1-18 9102 CAPSULE ity of hr capsule 00:00: [place] DAY [place] [facility] FINASTERIDE 2021-02 Yes [id number] TAKE 1 [facility] 5 mg tablet 1-18 9102 TABLET ity of 00:00: EVERY DAY [facility] MONTELUKAST 2021-02 Yes [id number] TAKE 1 [facility] 10 mg 1-18 TABLET ity of tablet 00:00: EVERY DAY [place] [facility] ALLOPURINOL 2021-02 Yes [id number] TAKE 1 [facility] 100 mg 1-18 TABLET ity of tablet 00:00: EVERY DAY [place] [facility] ESCITALOPRA 2021-02 Yes [id number] 10mg TAKE 1 [facility] M OXALATE 1-18 TABLET BY ity o f 10 mg 00:00: MOUTH [place] tablet DAILY Medical [place] TAMSULOSIN 2021-02 Yes [id number] TAKE 1 [facility] 0.4 mg 24 1-18 9102 CAPSULE ity of hr capsule 00:00: [place] [facility] FINASTERIDE 2021-02 Yes [id number] TAKE 1 [facility] 5 mg tablet 1-18 9102 TABLET ity of 00:00: EVERY DAY [place] [facility] MONTELUKAST 2021-02 Yes [id number] TAKE 1 [facility] 10 mg 1-18 TABLET ity of tablet 00:00: EVERY DAY [place] [facility] ALLOPURINOL 2021-02 Yes [id number] TAKE 1 [facility] 100 mg 1-18 TABLET ity of tablet 00:00: EVERY DAY [place] [facility] ESCITALOPRA 2021-02 Yes [id number] 10mg TAKE 1 [facility] M OXALATE 1-18 TABLET BY ity o f 10 mg 00:00: MOUTH [place] tablet DAILY [facility] TAMSULOSIN 2021-02 Yes [id number] TAKE 1 [facility] 0.4 mg 24 1-18 9102 CAPSULE ity of hr capsule 00:00: [place] [facility] FINASTERIDE 2021-02 Yes [id number] TAKE 1 [facility] 5 mg tablet 1-18 9102 TABLET ity of 00:00: EVERY DAY [address] MONTELUKAST 2021-02 Yes [id number] TAKE 1 [facility] 10 mg 1-18 TABLET ity of tablet 00:00: EVERY DAY [place] [facility] ALLOPURINOL 2021-02 Yes [id number] TAKE 1 [facility] 100 mg 1-18 TABLET ity of tablet 00:00: EVERY DAY [address] ESCITALOPRA 2021-02 Yes [id number] 10mg TAKE 1 [facility] M OXALATE 1-18 TABLET BY ity o f 10 mg 00:00: MOUTH [place] tablet 00 DAILY [facility] Insulin 2021-02 Yes [id number] ADMINISTER [facility] Glargine 1-02 50 UNITS ity of (LANTUS 00:00: UNDER THE [place] SOLOSTAR 00 SKIN EVERY Medic al U-100 NIGHT AT Branch INSULIN) BEDTIME 100 unit/mL (3 mL) injection Insulin 2021-02 Yes [id number] ADMINISTER [facility] Glargine 1-02 50 UNITS ity of (LANTUS 00:00: UNDER THE [place] SOLOSTAR 00 SKIN EVERY Medic al U-100 NIGHT AT Branch INSULIN) BEDTIME 100 unit/mL (3 mL) injection Insulin 2021-02 Yes [id number] ADMINISTER [facility] Glargine -02 50 UNITS ity of (LANTUS 00:00: UNDER THE [place] SOLOSTAR 00 SKIN EVERY Medic al U-100 NIGHT AT Branch INSULIN) BEDTIME 100 unit/mL (3 mL) injection Insulin 2021-02 Yes [id number] ADMINISTER [facility] Glargine 1-02 50 UNITS ity of (LANTUS 00:00: UNDER THE [place] SOLOSTAR 00 SKIN EVERY Medic al U-100 NIGHT AT Branch INSULIN) BEDTIME 100 unit/mL (3 mL) injection Insulin 2021-02 Yes [id number] ADMINISTER [facility] Glargine 1-02 50 UNITS ity of (LANTUS 00:00: UNDER THE [place] SOLOSTAR 00 SKIN EVERY Medic al U-100 NIGHT AT Branch INSULIN) BEDTIME 100 unit/mL (3 mL) injection Insulin 2021-02 [id number] ADMINISTER [facility] Glargine 1-02 12-06 50 UNITS ity of (LANTUS 00:00: 00:00 UNDER THE [facility] s SOLOSTAR 00 :00 SKIN EVERY Medic al U-100 NIGHT AT Branch INSULIN) BEDTIME 100 unit/mL (3 mL) injection METOPROLOL 2022-0 Yes [id number] TAKE 1 Un jb TARTRATE 50 9-23 TABLET BY ity of mg tablet 00:00: TWICE Medical DAILY Branch TAMSULOSIN 2021-0 Yes [id number] .4mg TAKE 1 [facility] 0.4 mg 11-15 9102 CAPSULE BY ity of hr capsule 00:00: DAILY Medical Branch TAMSULOSIN 2021-0 Yes [id number] .4mg TAKE 1 [facility] 0.4 mg 11-15 9102 CAPSULE BY ity of hr capsule 00:00: DAILY Medical Branch METOPROLOL 2021-0 Yes [id number] TAKE 1 Un jb TARTRATE 50 9-23 TABLET BY ity of mg tablet 00:00: TWICE Medical DAILY Branch METOPROLOL 2021-0 Yes [id number] TAKE 1 Un jb TARTRATE 50 9-23 TABLET BY ity of mg tablet 00:00: TWICE Medical DAILY Branch METOPROLOL 2021-0 Yes [id number] TAKE 1 Un jb TARTRATE 50 9-23 TABLET BY ity of mg tablet 00:00: TWICE Medical DAILY Branch METOPROLOL 2021-0 Yes [id number] TAKE 1 Un jb TARTRATE 50 9-23 TABLET BY ity of mg tablet 00:00: TWICE Medical DAILY Branch METOPROLOL 2021-0 Yes [id number] TAKE 1 Un jb TARTRATE 50 9-23 TABLET BY ity of mg tablet 00:00: TWICE Medical DAILY Branch METOPROLOL 2021-0 Yes [id number] TAKE 1 Un jb TARTRATE 50 9-23 TABLET BY ity of mg tablet 00:00: TWICE Medical DAILY Branch METOPROLOL 2021-0 Yes [id number] TAKE 1 Un jb TARTRATE 50 9-23 TABLET BY ity of mg tablet 00:00: TWICE Medical DAILY Branch METOPROLOL 2021-0 Yes [id number] TAKE 1 Un jb TARTRATE 50 9-23 TABLET BY ity of mg tablet 00:00: [facility] TWICE Medical DAILY Branch METOPROLOL 2021-0 Yes [id number] TAKE 1 Un jb TARTRATE 50 9-23 TABLET BY ity of mg tablet 00:00: [facility] TWICE Medical DAILY Branch METOPROLOL 2021-0 Yes [id number] TAKE 1 Un jb TARTRATE 50 9-23 TABLET BY ity of mg tablet 00:00: MOUTH [place] 00 TWICE Medical DAILY Branch METOPROLOL 2021-0 Yes [id number] TAKE 1 Un jb TARTRATE 50 9-23 TABLET BY ity of mg tablet 00:00: MOUTH [place] 00 TWICE Medical DAILY Branch METOPROLOL 2021-0 Yes [id number] TAKE 1 Un jb TARTRATE 50 9-23 TABLET BY ity of mg tablet 00:00: MOUTH [place] 00 TWICE Medical DAILY Branch METOPROLOL 2021-0 Yes [id number] TAKE 1 Un jb TARTRATE 50 9-23 TABLET BY ity of mg tablet 00:00: MOUTH [place] 00 TWICE Medical DAILY Branch METOPROLOL 2021-0 Yes [id number] TAKE 1 Un jb TARTRATE 50 9-23 TABLET BY ity of mg tablet 00:00: MOUTH [place] 00 TWICE Medical DAILY Branch METOPROLOL 0 Yes [id number] TAKE 1 Un jb TARTRATE 50 9-23 TABLET BY ity of mg tablet 00:00: MOUTH [place] 00 TWICE Medical DAILY Branch TAMSULOSIN 2021- No [id number] .4mg TAKE 1 [facility] 0.4 mg 24 11-15- 9102 CAPSULE BY ity of hr capsule 00:00: 00:00 MOUTH [place] 00 :00 DAILY Medical Branch nystatin 2021-0 Yes [id number] Apply to [facility] 100,000 9-16 area(s) 2 ity of unit/gram 00:00: (two) [place] powder 00 times Medical daily. Branch enalapril 2021-0 Yes [id number] 20mg Take 1 Uni vers 20 mg 9-16 tablet by ity of tablet 00:00: mouth in [place] 00 the Medical morning. Branch furosemide 2021-0 Yes [id number] 40mg Take 1 [facility] (LASIX) 40 9-16 tablet by ity of mg tablet 00:00: mouth in [facility] 00 the Medical morning. Branch nystatin 2021-0 Yes [id number] Apply to [facility] 100,000 9-16 area(s) 2 ity of unit/gram 00:00: (two) [place] powder 00 times Medical daily. Branch enalapril 2021-0 Yes [id number] 20mg Take 1 Uni vers 20 mg 9-16 tablet by ity of tablet 00:00: mouth in [place] 00 the Medical morning. Branch furosemide 2021-0 Yes [id number] 40mg Take 1 [facility] (LASIX) 40 9-16 tablet by ity of mg tablet 00:00: [place] the Medical morning. Branch nystatin 2021-0 Yes [id number] Apply to [facility] 100,000 916 area(s) 2 ity of unit/gram 00:00: (two) [place] powder 00 times Medical daily. Branch enalapril 2021-0 Yes [id number] 20mg Take 1 [facility] vers 20 mg 9-16 tablet by ity of tablet 00:00: mouth in [place] 00 the Medical morning. Branch furosemide 2021-0 Yes [id number] 40mg Take 1 [facility] (LASIX) 40 9-16 tablet by ity of mg tablet 00:00: [place] the Medical morning. Branch nystatin 2021-0 Yes [id number] Apply to [facility] 100,000 916 area(s) 2 ity of unit/gram 00:00: (two) [place] powder 00 times Medical daily. Branch enalapril 2021-0 Yes [id number] 20mg Take 1 [facility] vers 20 mg 9-16 tablet by ity of tablet 00:00: mouth in [place] the Medical morning. Branch furosemide 2021-0 Yes [id number] 40mg Take 1 [facility] (LASIX) 40 9-16 tablet by ity of mg tablet 00:00: [place] the Medical morning. Branch nystatin 2021-0 Yes [id number] Apply to [facility] 100,000 916 area(s) 2 ity of unit/gram 00:00: (two) [place] powder 00 times Medical daily. Branch enalapril 2021-0 Yes [id number] 20mg Take 1 [facility] vers 20 mg 9-16 tablet by ity of tablet 00:00: mouth in [place] 00 the Medical morning. Branch furosemide 2021-0 Yes [id number] 40mg Take 1 [facility] (LASIX) 40 9-16 tablet by ity of mg tablet 00:00: [place] 00 the Medical morning. Branch nystatin 2021-0 Yes [id number] Apply to [facility] 100,000 916 area(s) 2 ity of unit/gram 00:00: (two) [place] powder 00 times Medical daily. Branch enalapril 2021-0 Yes [id number] 20mg Take 1 [facility] vers 20 mg 9-16 tablet by ity of tablet 00:00: mouth in [place] 00 the Medical morning. Branch furosemide 2021-0 Yes [id number] 40mg Take 1 [facility] (LASIX) 40 9-16 tablet by ity of mg tablet 00:00: [place] 00 the Medical morning. Branch nystatin 2021-0 Yes [id number] Apply to [facility] 100,000 9-16 area(s) 2 ity of unit/gram 00:00: (two) [place] powder 00 times Medical daily. Branch enalapril 0 Yes [id number] 20mg Take 1 [facility] vers 20 mg 9-16 tablet by ity of tablet 00:00: mouth in [place] 00 the Medical morning. Branch furosemide 2021-0 Yes [id number] 40mg Take 1 [facility] (LASIX) 40 9-16 tablet by ity of mg tablet 00:00: [place] the Medical morning. Branch nystatin 2021-0 Yes [id number] Apply to [facility] 100,000 916 area(s) 2 ity of unit/gram 00:00: (two) [place] powder 00 times Medical daily. Branch enalapril 0 Yes [id number] 20mg Take 1 [facility] vers 20 mg 9-16 tablet by ity of tablet 00:00: mouth in [place] 00 the Medical morning. Branch furosemide 2021-0 Yes [id number] 40mg Take 1 [facility] (LASIX) 40 9-16 tablet by ity of mg tablet 00:00: [place] 00 the Medical morning. Branch nystatin 2021-[id number] Apply to [facility] 100,000 9-16 area(s) 2 ity of unit/gram 00:00: (two) [place] powder 00 times Medical daily. Branch enalapril 2021-0 Yes [id number] 20mg Take 1 [facility] vers 20 mg 9-16 tablet by ity of tablet 00:00: mouth in [place] 00 the Medical morning. Branch furosemide 2021-0 Yes [id number] 40mg Take 1 [facility] (LASIX) 40 9-16 tablet by ity of mg tablet 00:00: [place] 00 the Medical morning. Branch nystatin 2021-0 Yes [id number] Apply to [facility] 100,000 9-16 area(s) 2 ity of unit/gram 00:00: (two) [place] powder 00 times Medical daily. Branch enalapril 2021-0 Yes [id number] 20mg Take 1 [facility] vers 20 mg 9-16 tablet by ity of tablet 00:00: mouth in [place] 00 the Medical morning. Branch furosemide 2021-0 Yes [id number] 40mg Take 1 [facility] (LASIX) 40 9-16 tablet by ity of mg tablet 00:00: mouth in [facility] 00 the Medical morning. Branch nystatin 2021-0 Yes [id number] Apply to [facility] 100,000 16 area(s) 2 ity of unit/gram 00:00: (two) [place] powder 00 times Medical daily. Branch enalapril 2021-0 Yes [id number] 20mg Take 1 [facility] vers 20 mg 9-16 tablet by ity of tablet 00:00: mouth in [place] 00 the Medical morning. Branch furosemide 2021-0 Yes [id number] 40mg Take 1 [facility] (LASIX) 40 9-16 tablet by ity of mg tablet 00:00: mouth in [facility] the Medical morning. Branch nystatin 2021-0 Yes [id number] Apply to [place] [address]16 area(s) 2 ity of unit/gram 00:00: (two) [place] powder 00 times Medical daily. Branch enalapril 2021-0 Yes [id number] 20mg Take 1 Uni vers 20 mg 9-16 tablet by ity of tablet 00:00: mouth in [place] 00 the Medical morning. Branch furosemide 2021-0 Yes [id number] 40mg Take 1 [facility] (LASIX) 40 9-16 tablet by ity of mg tablet 00:00: mouth in [facility] the Medical morning. Branch nystatin 2021-0 [id number] Apply to [facility] 100,000 916 area(s) 2 ity of unit/gram 00:00: (two) [place] powder 00 times Medical daily. Branch enalapril 2021-0 Yes [id number] 20mg Take 1 [facility] vers 20 mg 9-16 tablet by ity of tablet 00:00: mouth in [place] 00 the Medical morning. Branch furosemide 2021-0 Yes [id number] 40mg Take 1 [facility] (LASIX) 40 9-16 tablet by ity of mg tablet 00:00: [place] 00 the Medical morning. Branch nystatin 2021-0 Yes [id number] Apply to U [facility] 100,000 9-16 area(s) 2 ity of unit/gram 00:00: (two) [place] powder 00 times Medical daily. Branch enalapril 2021-0 Yes [id number] 20mg Take 1 [facility] vers 20 mg 9-16 tablet by ity of tablet 00:00: mouth in [place] 00 the Medical morning. Branch furosemide 2021-0 Yes [id number] 40mg Take 1 [facility] (LASIX) 40 9-16 tablet by ity of mg tablet 00:00: [place] 00 the Medical morning. Branch nystatin 2021-0 Yes [id number] Apply to U nivers 100,000 9-16 area(s) 2 ity of unit/gram 00:00: (two) [place] powder 00 times Medical daily. Branch furosemide 2021-0 Yes [id number] 40mg Take 1 [facility] (LASIX) 40 9-16 tablet by ity of mg tablet 00:00: [place] the Medical morning. Branch nystatin 2021-0 Yes [id number] Apply to U nivers 100,000 9-16 area(s) 2 ity of unit/gram 00:00: (two) [place] powder 00 times Medical daily. Branch furosemide 2021-0 Yes [id number] 40mg Take 1 [facility] (LASIX) 40 9-16 tablet by ity of mg tablet 00:00: [place] the Medical morning. Branch nystatin 2021-0 Yes [id number] Apply to U nivers 100,000 9-16 area(s) 2 ity of unit/gram 00:00: (two) [place] powder 00 times Medical daily. Branch furosemide 2021-0 Yes [id number] 40mg Take 1 [facility] (LASIX) 40 9-16 tablet by ity of mg tablet 00:00: [place] 00 the Medical morning. Branch nystatin 2021-0 Yes [id number] Apply to U nivers 100,000 9-16 area(s) 2 ity of unit/gram 00:00: (two) [place] powder 00 times Medical daily. Branch furosemide 2021-0 Yes [id number] 40mg Take 1 [facility] (LASIX) 40 9-16 tablet by ity of mg tablet 00:00: [place] 00 the Medical morning. Branch nystatin Yes [id number] Apply to U nivers 100,000 -16 area(s) 2 ity of unit/gram 00:00: (two) [place] powder 00 times Medical daily. Branch furosemide Yes [id number] 40mg Take 1 Univers (LASIX) 40 11-08 tablet by ity of mg tablet 00:00: mouth in [facility] 00 the Medical morning. Branch enalapril 2- No [id number] 20mg Take 1 Un jb 20 mg 11-08 tablet by ity of tablet 00:00: 00:00 mouth in [place] 00 :00 the Medical morning. Branch enalapril 2- No [id number] 20mg Take 1 Un jb 20 mg 11-08 tablet by ity of tablet 00:00: 00:00 mouth in [place] 00 :00 the Medical morning. Branch enalapril 2- No [id number] 20mg Take 1 Un jb 20 mg 11-08 tablet by ity of tablet 00:00: 00:00 mouth in [place] 00 :00 the Medical morning. Branch clotrimazol 2- No [id number] Apply to [facility] e 1 % -11-23 area(s) 2 ity of solution 00:00: 04:59 (two) [place] 00 :00 times Medical daily for Branch 14 days. clotrimazol 2- No [id number] Apply to Univers e 1 % -08 12- area(s) 2 ity of solution 00:00: 04:59 (two) [place] 00 :00 times Medical daily for Branch 14 days. clotrimazol 0 2- No [id number] Apply to Univers e 1 % 9-16 - area(s) 2 ity of solution 00:00: 04:59 (two) [place] 00 :00 times Medical daily for Branch 14 days. clotrimazol 2- No [id number] Apply to Univers e 1 % -16 - area(s) 2 ity of solution 00:00: 04:59 (two) [place] 00 :00 times Medical daily for Branch 14 days. PREGABALIN 2022-0 Yes [id number] TAKE 1 [facility] 75 mg 8-16 CAPSULE BY ity of capsule 00:00: [facility] 00 THREE Medical TIMES Branch DAILY PREGABALIN 2022-0 Yes [id number] TAKE 1 [facility] 75 mg 8-16 CAPSULE BY ity of capsule 00:00: [facility] THREE Medical TIMES Branch DAILY PREGABALIN 2022-0 Yes [id number] TAKE 1 [facility] 75 mg 8-16 CAPSULE BY ity of capsule 00:00: [facility] THREE Medical TIMES Branch DAILY PREGABALIN 2022-0 Yes [id number] TAKE 1 [facility] 75 mg 8-16 CAPSULE BY ity of capsule 00:00: [facility] THREE Medical TIMES Branch DAILY PREGABALIN 2022-0 Yes [id number] TAKE 1 [facility] 75 mg 8-16 CAPSULE BY ity of capsule 00:00: [facility] THREE Medical TIMES Branch DAILY PREGABALIN 2022-0 Yes [id number] TAKE 1 [facility] 75 mg 8-16 CAPSULE BY ity of capsule 00:00: [facility] THREE Medical TIMES Branch DAILY PREGABALIN 2022-0 Yes [id number] TAKE 1 [facility] 75 mg 8-16 CAPSULE BY ity of capsule 00:00: [facility] THREE Medical TIMES Branch DAILY PREGABALIN 2022-0 Yes [id number] TAKE 1 [facility] 75 mg 8-16 CAPSULE BY ity of capsule 00:00: [facility] THREE Medical TIMES Branch DAILY PREGABALIN 2022-0 Yes [id number] TAKE 1 [facility] 75 mg 8-16 CAPSULE BY ity of capsule 00:00: [facility] THREE Medical TIMES Branch DAILY PREGABALIN 2022-0 Yes [id number] TAKE 1 [facility] 75 mg 8-16 CAPSULE BY ity of capsule 00:00: [facility] THREE Medical TIMES Branch DAILY PREGABALIN 2022-0 Yes [id number] TAKE 1 [facility] 75 mg 8-16 CAPSULE BY ity of capsule 00:00: [facility] 00 THREE Medical TIMES Branch DAILY PREGABALIN 2022-0 2021- No [id number] TAKE 1 [facility] 75 mg 8-16 12-07 CAPSULE BY ity of capsule 00:00: 00:00 [facility] 00 :00 THREE Medical TIMES Branch DAILY PREGABALIN 2022-0 2021- No [id number] TAKE 1 [facility] 75 mg 8-16 12-07 CAPSULE BY ity of capsule 00:00: 00:00 MOUTH [place] 00 :00 THREE Medical TIMES Branch DAILY PREGABALIN 2021-0 2021- No [id number] TAKE 1 [facility] 75 mg 8-16 12-07 CAPSULE BY ity of capsule 00:00: 00:00 MOUTH [place] 00 :00 THREE Medical TIMES Branch DAILY PREGABALIN 2-0 2021- No [id number] TAKE 1 [facility] 75 mg 8-16 12-07 CAPSULE BY ity of capsule 00:00: 00:00 MOUTH [place] 00 :00 THREE Medical TIMES Branch DAILY PREGABALIN 2-0 2021- No [id number] TAKE 1 [facility] 75 mg 8-16 12-07 CAPSULE BY ity of capsule 00:00: 00:00 MOUTH [place] 00 :00 THREE Medical TIMES Branch DAILY PREGABALIN 2-0 2021- No [id number] TAKE 1 [facility] 75 mg 8-16 12-07 CAPSULE BY ity of capsule 00:00: 00:00 MOUTH [place] 00 :00 THREE Medical TIMES Branch DAILY NOVOLOG 2021-0 Yes [id number] INJECT 40 [facility] FLEXPEN 7-22 UNITS ity of U-100 00:00: UNDER THE [place] INSULIN 100 00 SKIN THREE Me dical unit/mL (3 TIMES Branch mL) DAILY. injection NOVOLOG 2021-0 Yes [id number] INJECT 40 [facility] FLEXPEN 7-22 UNITS ity of U-100 00:00: UNDER THE [place] INSULIN 100 00 SKIN THREE Me dical unit/mL (3 TIMES Branch mL) DAILY. injection NOVOLOG 2021-0 Yes [id number] INJECT 40 [facility] FLEXPEN 7-22 UNITS ity of U-100 00:00: UNDER THE [place] INSULIN 100 00 SKIN THREE Me dical unit/mL (3 TIMES Branch mL) DAILY. injection NOVOLOG 2021-0 Yes [id number] INJECT 40 [facility] FLEXPEN 7-22 UNITS ity of U-100 00:00: UNDER THE [place] INSULIN 100 00 SKIN THREE Me dical unit/mL (3 TIMES Branch mL) DAILY. injection NOVOLOG 2021-0 Yes [id number] INJECT 40 [facility] FLEXPEN 7-22 UNITS ity of U-100 00:00: UNDER THE [place] INSULIN 100 00 SKIN THREE Me dical unit/mL (3 TIMES Branch mL) DAILY. injection NOVOLOG 2021-0 Yes [id number] INJECT 40 [facility] FLEXPEN 7-22 UNITS ity of U-100 00:00: UNDER THE [place] INSULIN 100 00 SKIN THREE Me dical unit/mL (3 TIMES Branch mL) DAILY. injection NOVOLOG 0 Yes [id number] INJECT 40 [facility] FLEXPEN 7-22 UNITS ity of U-100 00:00: UNDER THE [place] INSULIN 100 00 SKIN THREE Me dical unit/mL (3 TIMES Branch mL) DAILY. injection NOVOLOG 0 Yes [id number] INJECT 40 [facility] FLEXPEN 7-22 UNITS ity of U-100 00:00: UNDER THE [place] INSULIN 100 00 SKIN THREE Me dical unit/mL (3 TIMES Branch mL) DAILY. injection NOVOLOG 0 Yes [id number] INJECT 40 [facility] FLEXPEN 7-22 UNITS ity of U-100 00:00: UNDER THE [place] INSULIN 100 00 SKIN THREE Me dical unit/mL (3 TIMES Branch mL) DAILY. injection NOVOLOG Yes [id number] INJECT 40 [facility] FLEXPEN 7-22 UNITS ity of U-100 00:00: UNDER THE [place] INSULIN 100 00 SKIN THREE Me dical unit/mL (3 TIMES Branch mL) DAILY. injection NOVOLOG 2021- No [id number] INJECT 40 [facility] FLEXPEN 7-22 12-06 UNITS ity of U-100 00:00: 00:00 UNDER THE [place] INSULIN 100 00 :00 SKIN THREE Me dical unit/mL (3 TIMES Branch mL) DAILY. injection montelukast Yes [id number] 10mg Take 1 [facility] 10 mg 6-23 tablet by ity of tablet 00:00: mouth daily. Medical Branch metoprolol 0 Yes [id number] 50mg Take 1 Un jb tartrate 50 6-23 tablet by ity of mg tablet 00:00: mouth 2 00 (two) Medical times Branch daily. tamsulosin 0 Yes [id number] .4mg Take 1 [facility] 0.4 mg 24 6-23 9102 capsule by ity of hr capsule 00:00: mouth 00 daily. Medical Branch finasteride 0 Yes [id number] 5mg Take 1 [facility] 5 mg tablet 6- 9102 tablet by ity of 00:00: mouth daily. Medical Branch albuterol 2022-0 Yes [id number] 2.5mg Inhale 3 Univers 2.5 mg /3 6-23 mL every 6 ity of mL (0.083 00:00: (six) [place] %) 00 hours as Medical nebulizer needed for Bran ch solution Wheezing or Shortness of Breath. allopurinoL 0 Yes [id number] 100mg Take 1 [facility] 100 mg 6-23 tablet by ity of tablet 00:00: mouth [place] 00 daily. Medical Branch montelukast 2021-0 Yes [id number] 10mg Take 1 [facility] 10 mg 6-23 tablet by ity of tablet 00:00: mouth [place] 00 daily. Medical Branch metoprolol 0 Yes [id number] 50mg Take 1 Un jb tartrate 50 6-23 tablet by ity of mg tablet 00:00: mouth 2 [place] 00 (two) Medical times Branch daily. tamsulosin 0 Yes [id number] .4mg Take 1 [facility] 0.4 mg 24 6-23 9102 capsule by ity of hr capsule 00:00: mouth [place] 00 daily. Medical Branch finasteride 0 Yes [id number] 5mg Take 1 [facility] 5 mg tablet 6-23 9102 tablet by ity of 00:00: mouth [place] 00 daily. Medical Branch albuterol 0 Yes [id number] 2.5mg Inhale 3 Univers 2.5 mg /3 6-23 mL every 6 ity of mL (0.083 00:00: (six) [place] %) 00 hours as Medical nebulizer needed for Bran ch solution Wheezing or Shortness of Breath. allopurinoL 2021-0 Yes [id number] 100mg Take 1 [facility] 100 mg 6-23 tablet by ity of tablet 00:00: mouth [place] 00 daily. Medical Branch montelukast 2021-0 Yes [id number] 10mg Take 1 [facility] 10 mg 6-23 tablet by ity of tablet 00:00: mouth [place] 00 daily. Medical Branch tamsulosin 2021-0 Yes [id number] .4mg Take 1 [facility] 0.4 mg 24 6-23 9102 capsule by ity of hr capsule 00:00: mouth [place] 00 daily. Medical Branch finasteride 2021-0 Yes [id number] 5mg Take 1 [facility] 5 mg tablet 6-23 9102 tablet by ity of 00:00: mouth [place] 00 daily. Medical Branch albuterol 0 Yes [id number] 2.5mg Inhale 3 Univers 2.5 mg /3 6-23 mL every 6 ity of mL (0.083 00:00: (six) [place] %) 00 hours as Medical nebulizer needed for Bran ch solution Wheezing or Shortness of Breath. allopurinoL 0 Yes [id number] 100mg Take 1 [facility] 100 mg 6-23 tablet by ity of tablet 00:00: mouth [place] 00 daily. Medical Branch montelukast 0 Yes [id number] 10mg Take 1 [facility] 10 mg 6-23 tablet by ity of tablet 00:00: mouth [place] 00 daily. Medical Branch finasteride 0 Yes [id number] 5mg Take 1 [facility] 5 mg tablet 6-23 9102 tablet by ity of 00:00: mouth [place] 00 daily. Medical Branch albuterol 0 Yes [id number] 2.5mg Inhale 3 Univers 2.5 mg /3 6-23 mL every 6 ity of mL (0.083 00:00: (six) [place] %) 00 hours as Medical nebulizer needed for Bran ch solution Wheezing or Shortness of Breath. allopurinoL 0 Yes [id number] 100mg Take 1 [facility] 100 mg 6-23 tablet by ity of tablet 00:00: mouth [place] 00 daily. Medical Branch montelukast 0 Yes [id number] 10mg Take 1 [facility] 10 mg 6-23 tablet by ity of tablet 00:00: mouth [place] 00 daily. Medical Branch finasteride 0 Yes [id number] 5mg Take 1 [facility] 5 mg tablet 6-23 9102 tablet by ity of 00:00: mouth [place] 00 daily. Medical Branch albuterol 0 Yes [id number] 2.5mg Inhale 3 Univers 2.5 mg /3 6-23 mL every 6 ity of mL (0.083 00:00: (six) [place] %) 00 hours as Medical nebulizer needed for Bran ch solution Wheezing or Shortness of Breath. allopurinoL 0 Yes [id number] 100mg Take 1 [facility] 100 mg 6-23 tablet by ity of tablet 00:00: mouth [place] 00 daily. Medical Branch albuterol 0 Yes [id number] 2.5mg Inhale 3 Univers 2.5 mg /3 6-23 mL every 6 ity of mL (0.083 00:00: (six) [place] %) 00 hours as Medical nebulizer needed for Bran ch solution Wheezing or Shortness of Breath. albuterol 2022-0 Yes [id number] 2.5mg Inhale 3 Univers 2.5 mg /3 6-23 mL every 6 ity of mL (0.083 00:00: (six) [place] %) 00 hours as Medical nebulizer needed for Bran ch solution Wheezing or Shortness of Breath. albuterol 2-0 Yes [id number] 2.5mg Inhale 3 Univers 2.5 mg /3 6-23 mL every 6 ity of mL (0.083 00:00: ([facility]) [place] %) 00 hours as Medical nebulizer needed for Bran ch solution Wheezing or Shortness of Breath. albuterol 2021-0 Yes [id number] 2.5mg Inhale 3 Univers 2.5 mg /3 6-23 mL every 6 ity of mL (0.083 00:00: ([facility]) [place] %) 00 hours as Medical nebulizer needed for Bran ch solution Wheezing or Shortness of Breath. albuterol 2021-0 Yes [id number] 2.5mg Inhale 3 Univers 2.5 mg /3 6-23 mL every 6 ity of mL (0.083 00:00: (six) [place] %) 00 hours as Medical nebulizer needed for Bran ch solution Wheezing or Shortness of Breath. albuterol 2-0 Yes [id number] 2.5mg Inhale 3 Univers 2.5 mg /3 6-23 mL every 6 ity of mL (0.083 00:00: (six) [place] %) 00 hours as Medical nebulizer needed for Bran ch solution Wheezing or Shortness of Breath. albuterol 2-0 Yes [id number] 2.5mg Inhale 3 Univers 2.5 mg /3 6-23 mL every 6 ity of mL (0.083 00:00: (six) [place] %) 00 hours as Medical nebulizer needed for Bran ch solution Wheezing or Shortness of Breath. albuterol 2-0 Yes [id number] 2.5mg Inhale 3 Univers 2.5 mg /3 6-23 mL every 6 ity of mL (0.083 00:00: (six) [place] %) 00 hours as Medical nebulizer needed for Bran ch solution Wheezing or Shortness of Breath. albuterol 2021-0 Yes [id number] 2.5mg Inhale 3 [facility] 2.5 mg /3 6-23 mL every 6 ity of mL (0.083 00:00: (six) [place] %) 00 hours as Medical nebulizer needed for Bran ch solution Wheezing or Shortness of Breath. albuterol 2021-0 Yes [id number] 2.5mg Inhale 3 [facility] 2.5 mg /3 6-23 mL every 6 ity of mL (0.083 00:00: (six) [place] %) 00 hours as Medical nebulizer needed for Bran ch solution Wheezing or Shortness of Breath. albuterol 2021-0 Yes [id number] 2.5mg Inhale 3 Univers 2.5 mg /3 6-23 mL every 6 ity of mL (0.083 00:00: (six) [place] %) 00 hours as Medical nebulizer needed for Bran ch solution Wheezing or Shortness of Breath. albuterol 2021-0 Yes [id number] 2.5mg Inhale 3 [facility] 2.5 mg /3 6-23 mL every 6 ity of mL (0.083 00:00: (six) [place] %) 00 hours as Medical nebulizer needed for Bran ch solution Wheezing or Shortness of Breath. albuterol 2021-0 Yes [id number] 2.5mg Inhale 3 [facility] 2.5 mg /3 6-23 mL every 6 ity of mL (0.083 00:00: (six) [place] %) 00 hours as Medical nebulizer needed for Bran ch solution Wheezing or Shortness of Breath. albuterol 2021-0 Yes [id number] 2.5mg Inhale 3 [facility] 2.5 mg /3 6-23 mL every 6 ity of mL (0.083 00:00: (six) [place] %) 00 hours as Medical nebulizer needed for Bran ch solution Wheezing or Shortness of Breath. montelukast 2021- No [id number] 10mg Take 1 [facility] 10 mg 6-23 11-18 tablet by ity of tablet 00:00: 00:00 mouth [place] 00 :00 daily. Medical Branch finasteride 2021- No [id number] 5mg Take 1 [facility] 5 mg tablet 08-15 9102 tablet by it y of 00:00: 00:00 mouth [place] 00 :00 daily. Medical Branch allopurinoL 2021- No [id number] 100mg Take 1 [facility] 100 mg 08-15 tablet by ity of tablet 00:00: 00:00 mouth [place] 00 :00 daily. Medical Branch metoprolol 2021- No [id number] 50mg Take 1 U nivers tartrate 50 08-15 tablet by it y of mg tablet 00:00: 00:[place] 00 :[place] (two) Medical times Branch daily. metoprolol 2021- No [id number] 50mg Take 1 U nivers tartrate 50 08-15 tablet by it y of mg tablet 00:00: 00:[place] 00 :[place] (two) Medical times Branch daily. tamsulosin 2021- No [id number] .4mg Take 1 [facility] 0.4 mg 24 08-15 9102 capsule by ity of hr capsule 00:00: 00:00 mouth [place] 00 :00 daily. Medical Branch hydroCHLORO 2021- No [id number] 25mg Take 1 [facility] thiazide 25 08-15 tablet by it y of mg tablet 00:00: 00:00 mouth [place] 00 :00 daily. Medical Branch enalapril 2021- No [id number] 10mg Take 1 Un jb 10 mg 08-15 tablet by ity of tablet 00:00: 00:00 mouth [place] 00 :00 daily. Medical Branch clotrimazol Yes [id number] Apply to Univers e-betametha 5-25 area(s) 2 ity of sone 1-0.05 00:00: (two) [place] % lotion 00 times Medical daily. 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 Branch Blood-Gluco 2022-0 Yes [id number] Use as [facility] se 5-25 directed ity of Meter,Angie 00:00: [place] nuous 00 Medical (DEXCOM G6 Branch CRITICAL POWER TECHNICIAN) Misc Blood-Gluco 2022-0 Yes [id number] Use as Univers se Sensor 5-25 directed ity of (DEXCOM G6 00:00: [place] SENSOR) 00 Medical [place] Branch Blood-Gluco 2022-0 Yes [id number] Use as [facility] se 5-25 directed ity of Transmitter 00:00: [place] (DEXCOM G6 00 Medical TRANSMITTER Branch ) [place] clotrimazol 2022-0 Yes [id number] Apply to Univers e-betametha 5-25 area(s) 2 ity of sone 1-0.05 00:00: (two) [place] % lotion 00 times Medical daily. Branch Blood-Gluco 2022-0 Yes [id number] Use as Univers se 5-25 directed ity of Meter,Angie 00:00: [place] nuous 00 Medical (DEXCOM G6 Branch CRITICAL POWER TECHNICIAN) Misc Blood-Gluco 2022-0 Yes [id number] Use as Univers se Sensor 5-25 directed ity of (DEXCOM G6 00:00: [place] SENSOR) 00 Medical [place] Branch Blood-Gluco 2022-0 Yes [id number] Use as Univers se 5-25 directed ity of Transmitter 00:00: [place] (DEXCOM G6 00 Medical TRANSMITTER Branch ) [place] clotrimazol 2022-0 Yes [id number] Apply to Univers e-betametha 5-25 area(s) 2 ity of sone 1-0.05 00:00: (two) [place] % lotion 00 times Medical daily. Branch Blood-Gluco 2022-0 Yes [id number] Use as Univers se 5-25 directed ity of Meter,Angie 00:00: [place] nuous 00 Medical (DEXCOM G6 Branch CRITICAL POWER TECHNICIAN) Misc Blood-Gluco 2022-0 Yes [id number] Use as Univers se Sensor 5-25 directed ity of (DEXCOM G6 00:00: [place] SENSOR) 00 Medical [place] Branch Blood-Gluco 2022-0 Yes [id number] Use as Univers se 5-25 directed ity of Transmitter 00:00: [place] (DEXCOM G6 00 Medical TRANSMITTER Branch ) [place] clotrimazol 2022-0 Yes [id number] Apply to Univers e-betametha 5-25 area(s) 2 ity of sone 1-0.05 00:00: (two) [place] % lotion 00 times Medical daily. Branch Blood-Gluco 2022-0 Yes [id number] Use as Univers se 5-25 directed ity of Meter,Angie 00:00: [place] nuous 00 Medical (DEXCOM G6 Branch CRITICAL POWER TECHNICIAN) Misc Blood-Gluco 2022-0 Yes [id number] Use as Univers se Sensor 5-25 directed ity of (DEXCOM G6 00:00: [place] SENSOR) 00 Medical [place] Branch Blood-Gluco 2022-0 Yes [id number] Use as Univers se 5-25 directed ity of Transmitter 00:00: [place] (DEXCOM G6 00 Medical TRANSMITTER Branch ) [place] clotrimazol 2022-0 Yes [id number] Apply to Univers e-betametha 5-25 area(s) 2 ity of sone 1-0.05 00:00: (two) [place] % lotion 00 times Medical daily. Branch Blood-Gluco 2022-0 Yes [id number] Use as Univers se 5-25 directed ity of Meter,Angie 00:00: [place] nuous 00 Medical (DEXCOM G6 Branch CRITICAL POWER TECHNICIAN) Misc Blood-Gluco 2022-0 Yes [id number] Use as Univers se Sensor 5-25 directed ity of (DEXCOM G6 00:00: [place] SENSOR) 00 Medical [place] Branch Blood-Gluco 2022-0 Yes [id number] Use as Univers se 5-25 directed ity of Transmitter 00:00: [place] (DEXCOM G6 00 Medical TRANSMITTER Branch ) Yslvia clotrimazol 2022-0 Yes [id number] Apply to Univers e-betametha 5-25 area(s) 2 ity of sone 1-0.05 00:00: (two) [place] % lotion 00 times Medical daily. Branch Blood-Gluco 2022-0 Yes [id number] Use as Univers se 5-25 directed ity of Meter,Angie 00:00: [place] nuous 00 Medical (DEXCOM G6 Branch CRITICAL POWER TECHNICIAN) Misc Blood-Gluco 2022-0 Yes [id number] Use as Univers se Sensor 5-25 directed ity of (DEXCOM G6 00:00: [place] SENSOR) 00 Medical [place] Branch Blood-Gluco 2022-0 Yes [id number] Use as [facility] se 5-25 directed ity of Transmitter 00:00: [place] (DEXCOM G6 00 Medical TRANSMITTER Branch ) Sylvia clotrimazol 2022-0 Yes [id number] Apply to Univers e-betametha 5-25 area(s) 2 ity of sone 1-0.05 00:00: (two) [place] % lotion 00 times Medical daily. Branch Blood-Gluco 2022-0 Yes [id number] Use as Univers se 5-25 directed ity of Meter,Angie 00:00: [place] nuous 00 Medical (DEXCOM G6 Branch CRITICAL POWER TECHNICIAN) Misc Blood-Gluco 2022-0 Yes [id number] Use as Univers se Sensor 5-25 directed ity of (DEXCOM G6 00:00: [place] SENSOR) 00 Medical [place] Branch Blood-Gluco 2022-0 Yes [id number] Use as Univers se 5-25 directed ity of Transmitter 00:00: [place] (DEXCOM G6 00 Medical TRANSMITTER Branch ) [place] clotrimazol 2022-0 Yes [id number] Apply to Univers e-betametha 5-25 area(s) 2 ity of sone 1-0.05 00:00: (two) [place] % lotion 00 times Medical daily. Branch Blood-Gluco 2022-0 Yes [id number] Use as Univers se 5-25 directed ity of Meter,Angie 00:00: [place] nuous 00 Medical (DEXCOM G6 Branch CRITICAL POWER TECHNICIAN) Misc Blood-Gluco 2022-0 Yes [id number] Use as Univers se Sensor 5-25 directed ity of (DEXCOM G6 00:00: [place] SENSOR) 00 Medical [place] Branch Blood-Gluco 2022-0 Yes [id number] Use as Univers se 5-25 directed ity of Transmitter 00:00: [place] (DEXCOM G6 00 Medical TRANSMITTER Branch ) Syl[place] clotrimazol 2022-0 Yes [id number] Apply to Univers e-betametha 5-25 area(s) 2 ity of sone 1-0.05 00:00: (two) [place] % lotion 00 times Medical daily. Branch Blood-Gluco 2022-0 Yes [id number] Use as Univers se 5-25 directed ity of Meter,Angie 00:00: [place] nuous 00 Medical (DEXCOM G6 Branch CRITICAL POWER TECHNICIAN) Misc Blood-Gluco 2022-0 Yes [id number] Use as Univers se Sensor 5-25 directed ity of (DEXCOM G6 00:00: [place] SENSOR) 00 Medical [place] Branch Blood-Gluco 2022-0 Yes [id number] Use as Univers se 5-25 directed ity of Transmitter 00:00: [place] (DEXCOM G6 00 Medical TRANSMITTER Branch ) Sylvia clotrimazol 2022-0 Yes [id number] Apply to Univers e-betametha 5-25 area(s) 2 ity of sone 1-0.05 00:00: (two) [place] % lotion 00 times Medical daily. Branch Blood-Gluco 2022-0 Yes [id number] Use as Univers se 5-25 directed ity of Meter,Angie 00:00: [place] nuous 00 Medical (DEXCOM G6 Branch CRITICAL POWER TECHNICIAN) Misc Blood-Gluco 2022-0 Yes [id number] Use as Univers se Sensor 5-25 directed ity of (DEXCOM G6 00:00: [place] SENSOR) 00 Medical [place] Branch Blood-Gluco 2022-0 Yes [id number] Use as Univers se 5-25 directed ity of Transmitter 00:00: [place] (DEXCOM G6 00 Medical TRANSMITTER Branch ) Sylvia clotrimazol 2022-0 Yes [id number] Apply to Univers e-betametha 5-25 area(s) 2 ity of sone 1-0.05 00:00: (two) [place] % lotion 00 times Medical daily. Branch Blood-Gluco 2022-0 Yes [id number] Use as Univers se 5-25 directed ity of Meter,Angie 00:00: [place] nuous 00 Medical (DEXCOM G6 Branch CRITICAL POWER TECHNICIAN) Misc Blood-Gluco 2022-0 Yes [id number] Use as Univers se Sensor 5-25 directed ity of (DEXCOM G6 00:00: [place] SENSOR) 00 Medical [place] Branch Blood-Gluco 2022-0 Yes [id number] Use as Univers se 5-25 directed ity of Transmitter 00:00: [place] (DEXCOM G6 00 Medical TRANSMITTER Branch ) [place] clotrimazol 2022-0 Yes [id number] Apply to Univers e-betametha 5-25 area(s) 2 ity of sone 1-0.05 00:00: (two) [place] % lotion 00 times Medical daily. Branch Blood-Gluco 2022-0 Yes [id number] Use as Univers se 5-25 directed ity of Meter,Angie 00:00: [place] nuous 00 Medical (DEXCOM G6 Branch CRITICAL POWER TECHNICIAN) Misc Blood-Gluco 2022-0 Yes [id number] Use as Univers se Sensor 5-25 directed ity of (DEXCOM G6 00:00: [place] SENSOR) 00 Medical [place] Branch Blood-Gluco 2022-0 Yes [id number] Use as Univers se 5-25 directed ity of Transmitter 00:00: [place] (DEXCOM G6 00 Medical TRANSMITTER Branch ) Sylvia clotrimazol 2022-0 Yes [id number] Apply to Univers e-betametha 5-25 area(s) 2 ity of sone 1-0.05 00:00: (two) [place] % lotion 00 times Medical daily. Branch Blood-Gluco 2022-0 Yes [id number] Use as Univers se 5-25 directed ity of Meter,Angie 00:00: [place] nuous 00 Medical (DEXCOM G6 Branch CRITICAL POWER TECHNICIAN) Misc Blood-Gluco 2022-0 Yes [id number] Use as Univers se Sensor 5-25 directed ity of (DEXCOM G6 00:00: [place] SENSOR) 00 Medical [place] Branch Blood-Gluco 2022-0 Yes [id number] Use as Univers se 5-25 directed ity of Transmitter 00:00: [place] (DEXCOM G6 00 Medical TRANSMITTER Branch ) Syl[place] clotrimazol 2022-0 Yes [id number] Apply to Univers e-betametha 5-25 area(s) 2 ity of sone 1-0.05 00:00: (two) [place] % lotion 00 times Medical daily. Branch Blood-Gluco 2022-0 Yes [id number] Use as Univers se 5-25 directed ity of Meter,Angie 00:00: [place] nuous 00 Medical (DEXCOM G6 Branch CRITICAL POWER TECHNICIAN) Misc Blood-Gluco 2022-0 Yes [id number] Use as Univers se Sensor 5-25 directed ity of (DEXCOM G6 00:00: [place] SENSOR) 00 Medical [place] Branch Blood-Gluco 2022-0 Yes [id number] Use as Univers se 5-25 directed ity of Transmitter 00:00: [place] (DEXCOM G6 00 Medical TRANSMITTER Branch ) [place] clotrimazol 2022-0 Yes [id number] Apply to Univers e-betametha 5-25 area(s) 2 ity of sone 1-0.05 00:00: (two) [place] % lotion 00 times Medical daily. Branch Blood-Gluco 2022-0 Yes [id number] Use as Univers se 5-25 directed ity of Meter,Angie 00:00: [place] nuous 00 Medical (DEXCOM G6 Branch CRITICAL POWER TECHNICIAN) Misc Blood-Gluco 2022-0 Yes [id number] Use as Univers se Sensor 5-25 directed ity of (DEXCOM G6 00:00: [place] SENSOR) 00 Medical [place] Branch Blood-Gluco 2022-0 Yes [id number] Use as Univers se 5-25 directed ity of Transmitter 00:00: [place] (DEXCOM G6 00 Medical TRANSMITTER Branch ) Sylvia clotrimazol 2022-0 Yes [id number] Apply to Univers e-betametha 5-25 area(s) 2 ity of sone 1-0.05 00:00: (two) [place] % lotion 00 times Medical daily. Branch Blood-Gluco 2022-0 Yes [id number] Use as Univers se 5-25 directed ity of Meter,Angie 00:00: [place] nuous 00 Medical (DEXCOM G6 Branch CRITICAL POWER TECHNICIAN) Misc Blood-Gluco 2022-0 Yes [id number] Use as Univers se Sensor 5-25 directed ity of (DEXCOM G6 00:00: [place] SENSOR) 00 Medical [place] Branch Blood-Gluco 2022-0 Yes [id number] Use as Univers se 5-25 directed ity of Transmitter 00:00: [place] (DEXCOM G6 00 Medical TRANSMITTER Branch ) [place]via clotrimazol 2022-0 Yes [id number] Apply to Univers e-betametha 5-25 area(s) 2 ity of sone 1-0.05 00:00: (two) [place] % lotion 00 times Medical daily. Branch Blood-Gluco 2021-0 Yes [id number] Use as Univers se 5-25 directed ity of Meter,Angie 00:00: [place] nuous 00 Medical (DEXCOM G6 Branch CRITICAL POWER TECHNICIAN) Misc Blood-Gluco 2021-0 Yes [id number] Use as Univers se Sensor 5-25 directed ity of (DEXCOM G6 00:00: [place] SENSOR) 00 Medical [place] Branch Blood-Gluco 2021-0 Yes [id number] Use as Univers se 5-25 directed ity of Transmitter 00:00: [place] (DEXCOM G6 00 Medical TRANSMITTER Branch ) Sylvia clotrimazol 2021-0 Yes [id number] Apply to Univers e-betametha 5-25 area(s) 2 ity of sone 1-0.05 00:00: (two) [place] % lotion 00 times Medical daily. Branch Blood-Gluco 2021-0 Yes [id number] Use as Univers se 5-25 directed ity of Meter,Angie 00:00: [place] nuous 00 Medical (DEXCOM G6 Branch CRITICAL POWER TECHNICIAN) Misc Blood-Gluco 2021-0 Yes [id number] Use as Univers se Sensor 5-25 directed ity of (DEXCOM G6 00:00: [place] SENSOR) 00 Medical [place] Branch Blood-Gluco 2021-0 Yes [id number] Use as Univers se 5-25 directed ity of Transmitter 00:00: [place] (DEXCOM G6 00 Medical TRANSMITTER Branch ) Sylvia Insulin 2021-0 Yes [id number] INJECT 50 Univers Glargine 4-25 UNITS ity of (LANTUS 00:00: UNDER THE [place] SOLOSTAR 00 SKIN EVERY Medic al U-100 NIGHT AT Branch INSULIN) BEDTIME. 100 unit/mL (3 mL) injection Insulin 2021-0 Yes [id number] INJECT 50 Univers Glargine 4-25 UNITS ity of (LANTUS 00:00: UNDER THE [place] SOLOSTAR 00 SKIN EVERY Medic al U-100 NIGHT AT Branch INSULIN) BEDTIME. 100 unit/mL (3 mL) injection Insulin 2021-0 Yes [id number] INJECT 50 [facility] Glargine 4-25 UNITS ity of (LANTUS 00:00: UNDER THE [place] SOLOSTAR 00 SKIN EVERY Medic al U-100 NIGHT AT Branch INSULIN) BEDTIME. 100 unit/mL (3 mL) injection Insulin Yes [id number] INJECT 50 [facility] Glargine 4-25 UNITS ity of (LANTUS 00:00: UNDER THE [place] SOLOSTAR 00 SKIN EVERY Medic al U-100 NIGHT AT Branch INSULIN) BEDTIME. 100 unit/mL (3 mL) injection Insulin 2021- No [id number] INJECT 50 Univers Glargine 4-25 11-02 UNITS ity of (LANTUS 00:00: 00:00 UNDER THE [facility] SOLOSTAR 00 :00 SKIN EVERY Medic al U-100 NIGHT AT Branch INSULIN) BEDTIME. 100 unit/mL (3 mL) injection esomeprazol Yes [id number] TAKE 1 Univers e 20 mg 3-07 CAPSULE BY ity of capsule 00:00: MOUTH [place] EVERY DAY Medical Branch esomeprazol Yes [id number] TAKE 1 [facility] e 20 mg 3-07 CAPSULE BY ity of capsule 00:00: MOUTH [place] EVERY DAY Medical Branch esomeprazol Yes [id number] TAKE 1 Univers e 20 mg 3-07 CAPSULE BY ity of capsule 00:00: MOUTH [place] DAY Medical Branch esomeprazol Yes [id number] TAKE 1 Univers e 20 mg 3-07 CAPSULE BY ity of capsule 00:00: MOUTH [place] DAY Medical Branch esomeprazol Yes [id number] TAKE 1 Univers e 20 mg 3-07 CAPSULE BY ity of capsule 00:00: MOUTH [place] DAY Medical Branch esomeprazol Yes [id number] TAKE 1 [facility] e 20 mg 3-07 CAPSULE BY ity of capsule 00:00: MOUTH [place] DAY Medical Branch esomeprazol Yes [id number] TAKE 1 [facility] e 20 mg 3-07 CAPSULE BY ity of capsule 00:00: MOUTH [place] DAY Medical Branch esomeprazol Yes [id number] TAKE 1 [facility] e 20 mg 3-07 CAPSULE BY ity of capsule 00:00: MOUTH [place] DAY Medical Branch esomeprazol Yes [id number] TAKE 1 [facility] e 20 mg 3-07 CAPSULE BY ity of capsule 00:00: MOUTH [place] 00 EVERY DAY Medical Branch esomeprazol Yes [id number] TAKE 1 [facility] e 20 mg 3-07 CAPSULE BY ity of capsule 00:00: MOUTH [place] DAY Medical Branch esomeprazol Yes [id number] TAKE 1 [facility] e 20 mg 3-07 CAPSULE BY ity of capsule 00:00: MOUTH [place] EVERY DAY Medical Branch esomeprazol Yes [id number] TAKE 1 [facility] e 20 mg 3-07 CAPSULE BY ity of capsule 00:00: MOUTH [place] 00 DAY Medical Branch esomeprazol Yes [id number] TAKE 1 [facility] e 20 mg 3-07 CAPSULE BY ity of capsule 00:00: MOUTH [place] DAY Medical Branch esomeprazol Yes [id number] TAKE 1 [facility] e 20 mg 3-07 CAPSULE BY ity of capsule 00:00: MOUTH [place] DAY Medical Branch esomeprazol Yes [id number] TAKE 1 [facility] e 20 mg 3-07 CAPSULE BY ity of capsule 00:00: MOUTH [place] 00 DAY Medical Branch esomeprazol Yes [id number] TAKE 1 [facility] e 20 mg 3-07 CAPSULE BY ity of capsule 00:00: MOUTH [place] 00 DAY Medical Branch esomeprazol Yes [id number] TAKE 1 [facility] e 20 mg 3-07 CAPSULE BY ity of capsule 00:00: MOUTH [place] 00 EVERY DAY Medical Branch esomeprazol Yes [id number] TAKE 1 [facility] e 20 mg 3-07 CAPSULE BY ity of capsule 00:00: MOUTH [place] 00 DAY Medical Branch esomeprazol 2022- No [id number] TAKE 1 Univers e 20 mg 3-07 -03 CAPSULE BY ity o f capsule 00:00: 00:00 MOUTH [place] 00 :00 EVERY DAY Medical Branch Lancing Yes [id number] Use as Uni vers Device with 9-29 directed. ity of Lancets 00:00: [place] (ONE TOUCH 00 substitute Med ical DELICA) Kit brand Branch preferred by insurance Blood-Gluco Yes [id number] Use as Univers se Meter 9-29 directed. ity of (ONETOUCH 00:00: June [place] VERIO FLEX 00 substitute Med ical START) Kit brand Branch preferred by insurance blood sugar 0 Yes [id number] Test 4x Univers diagnostic 929 daily for ity of (ONETOUCH 00:00: diagnosis [place] VERIO TEST 00 code Medical STRIPS) E11.9. May Branch strip substitute brand preferred by insurance Lancing Yes [id number] Use as Uni vers Device with 9 directed. ity of Lancets 00:00: June [place] (ONE TOUCH 00 substitute Med ical DELICA) Kit brand Branch preferred by insurance Blood-Gluco Yes [id number] Use as Univers se Meter 929 directed. ity of (ONETOUCH 00:00: June [place] VERIO FLEX 00 substitute Med ical START) Kit brand Branch preferred by insurance blood sugar Yes [id number] Test 4x Univers diagnostic 9 daily for ity of (ONETOUCH 00:00: diagnosis [place] VERIO TEST 00 code Medical STRIPS) E11.9. May Branch strip substitute brand preferred by insurance Lancing Yes [id number] Use as Uni vers Device with 9 directed. ity of Lancets 00:00: June [place] (ONE TOUCH 00 substitute Med ical DELICA) Kit brand Branch preferred by insurance Blood-Gluco Yes [id number] Use as Univers se Meter 929 directed. ity of (ONETOUCH 00:00: June [place] VERIO FLEX 00 substitute Med ical START) Kit brand Branch preferred by insurance blood sugar 0 Yes [id number] Test 4x Univers diagnostic 9 daily for ity of (ONETOUCH 00:00: diagnosis [place] VERIO TEST 00 code Medical STRIPS) E11.9. May Branch strip substitute brand preferred by insurance Lancing Yes [id number] Use as Uni vers Device with 929 directed. ity of Lancets 00:00: June [place] (ONE TOUCH 00 substitute Med ical DELICA) Kit brand Branch preferred by insurance Blood-Gluco Yes [id number] Use as Univers se Meter 929 directed. ity of (ONETOUCH 00:00: June [place] VERIO FLEX 00 substitute Med ical START) Kit brand Branch preferred by insurance blood sugar Yes [id number] Test 4x Univers diagnostic 929 daily for ity of (ONETOUCH 00:00: diagnosis [place] VERIO TEST 00 code Medical STRIPS) E11.9. May Branch strip substitute brand preferred by insurance Lancing Yes [id number] Use as Uni vers Device with 929 directed. ity of Lancets 00:00: June [place] (ONE TOUCH 00 substitute Med ical DELICA) Kit brand Branch preferred by insurance Blood-Gluco Yes [id number] Use as Univers se Meter 929 directed. ity of (ONETOUCH 00:00: June [place] VERIO FLEX 00 substitute Med ical START) Kit brand Branch preferred by insurance blood sugar Yes [id number] Test 4x Univers diagnostic 9 daily for ity of (ONETOUCH 00:00: diagnosis [place] VERIO TEST 00 code Medical STRIPS) E11.9. May Branch strip substitute brand preferred by insurance Lancing Yes [id number] Use as Uni vers Device with 9 directed. ity of Lancets 00:00: June [place] (ONE TOUCH 00 substitute Med ical DELICA) Kit brand Branch preferred by insurance Blood-Gluco Yes [id number] Use as Univers se Meter 9 directed. ity of (ONETOUCH 00:00: June [place] VERIO FLEX 00 substitute Med ical START) Kit brand Branch preferred by insurance blood sugar 0 Yes [id number] Test 4x Univers diagnostic 929 daily for ity of (ONETOUCH 00:00: diagnosis [place] VERIO TEST 00 code Medical STRIPS) E11.9. May Branch strip substitute brand preferred by insurance Lancing Yes [id number] Use as Uni vers Device with 929 directed. ity of Lancets 00:00: June [place] (ONE TOUCH 00 substitute Med ical DELICA) Kit brand Branch preferred by insurance Blood-Gluco 0 Yes [id number] Use as Univers se Meter 929 directed. ity of (ONETOUCH 00:00: June [place] VERIO FLEX 00 substitute Med ical START) Kit brand Branch preferred by insurance blood sugar 0 Yes [id number] Test 4x Univers diagnostic 9-29 daily for ity of (ONETOUCH 00:00: diagnosis [place] VERIO TEST 00 code Medical STRIPS) E11.9. May Branch strip substitute brand preferred by insurance Lancing Yes [id number] Use as Uni vers Device with 11-21 directed. ity of Lancets 00:00: [place] (ONE TOUCH 00 substitute Med ical DELICA) Kit brand Branch preferred by insurance Blood-Gluco Yes [id number] Use as Univers se Meter 9 directed. ity of (ONETOUCH 00:00: June [place] VERIO FLEX 00 substitute Med ical START) Kit brand Branch preferred by insurance blood sugar Yes [id number] Test 4x Univers diagnostic 9 daily for ity of (ONETOUCH 00:00: diagnosis [place] VERIO TEST 00 code Medical STRIPS) E11.9. June Branch strip substitute brand preferred by insurance Lancing Yes [id number] Use as Uni vers Device with 11-21 directed. ity of Lancets 00:00: June [place] (ONE TOUCH 00 substitute Med ical DELICA) Kit brand Branch preferred by insurance Blood-Gluco Yes [id number] Use as Univers se Meter 9 directed. ity of (ONETOUCH 00:00: June [place] VERIO FLEX 00 substitute Med ical START) Kit brand Branch preferred by insurance blood sugar 0 Yes [id number] Test 4x [facility] diagnostic 9 daily for ity of (ONETOUCH 00:00: diagnosis [place] VERIO TEST 00 code Medical STRIPS) E11.9. June Branch strip substitute brand preferred by insurance Lancing Yes [id number] Use as Uni vers Device with 9 directed. ity of Lancets 00:00: June (ONE TOUCH 00 substitute Med ical DELICA) Kit brand Branch preferred by insurance Blood-Gluco Yes [id number] Use as Univers se Meter 9 directed. ity of (ONETOUCH 00:00: June [place] VERIO FLEX 00 substitute Med ical START) Kit brand Branch preferred by insurance blood sugar 0 Yes [id number] Test 4x [facility] diagnostic 9 daily for ity of (ONETOUCH 00:00: diagnosis [place] VERIO TEST 00 code Medical STRIPS) E11.9. May Branch strip substitute brand preferred by insurance Lancing Yes [id number] Use as Uni vers Device with 9 directed. ity of Lancets 00:00: June [place] (ONE TOUCH 00 substitute Med ical DELICA) Kit brand Branch preferred by insurance Blood-Gluco Yes [id number] Use as Univers se Meter 929 directed. ity of (ONETOUCH 00:00: June [place] VERIO FLEX 00 substitute Med ical START) Kit brand Branch preferred by insurance blood sugar 0 Yes [id number] Test 4x [facility] diagnostic 9 daily for ity of (ONETOUCH 00:00: diagnosis [place] VERIO TEST 00 code Medical STRIPS) E11.9. May Branch strip substitute brand preferred by insurance Lancing Yes [id number] Use as Uni vers Device with 9 directed. ity of Lancets 00:00: June [place] (ONE TOUCH 00 substitute Med ical DELICA) Kit brand Branch preferred by insurance Blood-Gluco Yes [id number] Use as Univers se Meter 9 directed. ity of (ONETOUCH 00:00: June [place] VERIO FLEX 00 substitute Med ical START) Kit brand Branch preferred by insurance blood sugar Yes [id number] Test 4x [facility] diagnostic 9 daily for ity of (ONETOUCH 00:00: diagnosis [place] VERIO TEST 00 code Medical STRIPS) E11.9. May Branch strip substitute brand preferred by insurance Lancing Yes [id number] Use as Uni vers Device with 9 directed. ity of Lancets 00:00: June [place] (ONE TOUCH 00 substitute Med ical DELICA) Kit brand Branch preferred by insurance Blood-Gluco Yes [id number] Use as Univers se Meter 929 directed. ity of (ONETOUCH 00:00: June [place] VERIO FLEX 00 substitute Med ical START) Kit brand Branch preferred by insurance blood sugar 0 Yes [id number] Test 4x [facility] diagnostic 9 daily for ity of (ONETOUCH 00:00: diagnosis [place] VERIO TEST 00 code Medical STRIPS) E11.9. May Branch strip substitute brand preferred by insurance Lancing Yes [id number] Use as Uni vers Device with 9-29 directed. ity of Lancets 00:00: June [place] (ONE TOUCH 00 substitute Med ical DELICA) Kit brand Branch preferred by insurance Blood-Gluco Yes [id number] Use as [facility] se Meter 9 directed. ity of (ONETOUCH 00:00: June [place] VERIO FLEX 00 substitute Med ical START) Kit brand Branch preferred by insurance blood sugar 0 Yes [id number] Test 4x [facility] diagnostic 9 daily for ity of (ONETOUCH 00:00: diagnosis [place] VERIO TEST 00 code Medical STRIPS) E11.9. May Branch strip substitute brand preferred by insurance Lancing Yes [id number] Use as Uni vers Device with 11-21 directed. ity of Lancets 00:00: June [place] (ONE TOUCH 00 substitute Med ical DELICA) Kit brand Branch preferred by insurance Blood-Gluco Yes [id number] Use as [facility] se Meter 9 directed. ity of (ONETOUCH 00:00: June [place] VERIO FLEX 00 substitute Med ical START) Kit brand Branch preferred by insurance blood sugar 0 Yes [id number] Test 4x [facility] diagnostic 9 daily for ity of (ONETOUCH 00:00: diagnosis [place] VERIO TEST 00 code Medical STRIPS) E11.9. May Branch strip substitute brand preferred by insurance Lancing Yes [id number] Use as Uni vers Device with 11-21 directed. ity of Lancets 00:00: June [place] (ONE TOUCH 00 substitute Med ical DELICA) Kit brand Branch preferred by insurance Blood-Gluco Yes [id number] Use as [facility] se Meter 9 directed. ity of (ONETOUCH 00:00: June [place] VERIO FLEX 00 substitute Med ical START) Kit brand Branch preferred by insurance blood sugar 0 Yes [id number] Test 4x [facility] diagnostic 9 daily for ity of (ONETOUCH 00:00: diagnosis [place] VERIO TEST 00 code Medical STRIPS) E11.9. May Branch strip substitute brand preferred by insurance Lancing Yes [id number] Use as Uni vers Device with 9 directed. ity of Lancets 00:00: June [place] (ONE TOUCH 00 substitute Med ical DELICA) Kit brand Branch preferred by insurance Blood-Gluco Yes [id number] Use as Univers se Meter 929 directed. ity of (ONETOUCH 00:00: June [place] VERIO FLEX 00 substitute Med ical START) Kit brand Branch preferred by insurance blood sugar Yes [id number] Test 4x [facility] diagnostic 929 daily for ity of (ONETOUCH 00:00: diagnosis [place] VERIO TEST 00 code Medical STRIPS) E11.9. June Branch strip substitute brand preferred by insurance Lancing Yes [id number] Use as Uni vers Device with 9 directed. ity of Lancets 00:00: June [place] (ONE TOUCH 00 substitute Med ical DELICA) Kit brand Branch preferred by insurance Blood-Gluco Yes [id number] Use as [facility] se Meter 929 directed. ity of (ONETOUCH 00:00: June [place] VERIO FLEX 00 substitute Med ical START) Kit brand Branch preferred by insurance blood sugar Yes [id number] Test 4x [facility] diagnostic 9 daily for ity of (ONETOUCH 00:00: diagnosis [place] VERIO TEST 00 code Medical STRIPS) E11.9. June Branch strip substitute brand preferred by insurance Lancing Yes [id number] Use as Uni vers Device with 929 directed. ity of Lancets 00:00: June [place] (ONE TOUCH 00 substitute Med ical DELICA) Kit brand Branch preferred by insurance Blood-Gluco Yes [id number] Use as Univers se Meter 929 directed. ity of (ONETOUCH 00:00: June [place] VERIO FLEX 00 substitute Med ical START) Kit brand Branch preferred by insurance blood sugar Yes [id number] Test 4x [facility] diagnostic 929 daily for ity of (ONETOUCH 00:00: diagnosis [place] VERIO TEST 00 code Medical STRIPS) E11.9. June Branch strip substitute brand preferred by insurance fluticasone Yes [id number] 1{puff} Inhale 1 [facility] propion-duc 9-15 Puff every it y of meteroL 00:00: 12 [place] (ADVAIR 00 (twelve) Medical DISKUS) hours. Branch 250-50 mcg/dose inhalation disk albuterol-i Yes [id number] 1{puff} Inhale 1 [facility] pratropium 9-15 Puff 4 ity of 20-100 00:00: (four) [place] mcg/actuati 00 times Medical on inhaler daily. Branch aspirin 81 Yes [id number] 81mg Take 1 [facility] mg chewable 9-15 tablet by ity of tablet 00:00: mouth [place] 00 daily. Medical Branch nitroglycer Yes [id number] .4mg Place 1 [facility] in 9-15 tablet ity of (NITROSTAT) 00:00: under the [place] 0.4 mg 00 tongue Medical sublingual every 5 Branch tablet (five) minutes as needed for Chest pain. atorvastati Yes [id number] 40mg Take 1 [facility] n 40 mg 9-15 tablet by ity of tablet 00:00: mouth at [place] 00 bedtime. Medical Branch escitalopra Yes [id number] 10mg Take 1 [facility] m oxalate 9-15 tablet by ity o f 10 mg 00:00: mouth [place] tablet 00 daily. Medical Branch fluticasone Yes [id number] 1{puff} Inhale 1 [facility] propion-duc 9-15 Puff every it y of meteroL 00:00: 12 [place] (ADVAIR 00 (twelve) Medical DISKUS) hours. Branch 250-50 mcg/dose inhalation disk albuterol-i Yes [id number] 1{puff} Inhale 1 [facility] pratropium 9-15 Puff 4 ity of 20-100 00:00: (four) [place] mcg/actuati 00 times Medical on inhaler daily. Branch aspirin 81 Yes [id number] 81mg Take 1 [facility] mg chewable 9-15 tablet by ity of tablet 00:00: mouth [place] 00 daily. Medical Branch nitroglycer Yes [id number] .4mg Place 1 [facility] in 9-15 tablet ity of (NITROSTAT) 00:00: under the [place] 0.4 mg 00 tongue Medical sublingual every 5 Branch tablet (five) minutes as needed for Chest pain. atorvastati Yes [id number] 40mg Take 1 [facility] n 40 mg 9-15 tablet by ity of tablet 00:00: mouth at [place] 00 bedtime. Medical Branch escitalopra Yes [id number] 10mg Take 1 [facility] m oxalate 9-15 tablet by ity o f 10 mg 00:00: mouth [place] tablet 00 daily. Medical Branch fluticasone Yes [id number] 1{puff} Inhale 1 [facility] propion-duc 9-15 Puff every it y of meteroL 00:00: 12 [place] (ADVAIR 00 (twelve) Medical DISKUS) hours. Branch 250-50 mcg/dose inhalation disk albuterol-i Yes [id number] 1{puff} Inhale 1 [facility] pratropium 9-15 Puff 4 ity of 20-100 00:00: (four) [place] mcg/actuati 00 times Medical on inhaler daily. Branch aspirin 81 Yes [id number] 81mg Take 1 [facility] mg chewable 9-15 tablet by ity of tablet 00:00: mouth [place] 00 daily. Medical Branch nitroglycer Yes [id number] .4mg Place 1 [facility] in 9-15 tablet ity of (NITROSTAT) 00:00: under the [place] 0.4 mg 00 tongue Medical sublingual every 5 Branch tablet (five) minutes as needed for Chest pain. atorvastati Yes [id number] 40mg Take 1 [facility] n 40 mg 9-15 tablet by ity of tablet 00:00: mouth at [place] 00 bedtime. Medical Branch escitalopra Yes [id number] 10mg Take 1 [facility] m oxalate 9-15 tablet by ity o f 10 mg 00:00: mouth [place] tablet 00 daily. Medical Branch fluticasone Yes [id number] 1{puff} Inhale 1 [facility] propion-duc 9-15 Puff every it y of meteroL 00:00: 12 [place] (ADVAIR 00 (twelve) Medical DISKUS) hours. Branch 250-50 mcg/dose inhalation disk albuterol-i Yes [id number] 1{puff} Inhale 1 [facility] pratropium 9-15 Puff 4 ity of 20-100 00:00: (four) [place] mcg/actuati 00 times Medical on inhaler daily. Branch aspirin 81 Yes [id number] 81mg Take 1 [facility] mg chewable 9-15 tablet by ity of tablet 00:00: mouth [place] 00 daily. Medical Branch nitroglycer Yes [id number] .4mg Place 1 [facility] in 9-15 tablet ity of (NITROSTAT) 00:00: under the [place] 0.4 mg 00 tongue Medical sublingual every 5 Branch tablet (five) minutes as needed for Chest pain. atorvastati Yes [id number] 40mg Take 1 [facility] n 40 mg 9-15 tablet by ity of tablet 00:00: mouth at [place] 00 bedtime. Medical Branch escitalopra Yes [id number] 10mg Take 1 [facility] m oxalate 9-15 tablet by ity o f 10 mg 00:00: mouth [place] tablet 00 daily. Medical Branch fluticasone Yes [id number] 1{puff} Inhale 1 [facility] propion-duc 9-15 Puff every it y of meteroL 00:00: 12 [place] (ADVAIR 00 (twelve) Medical DISKUS) hours. Branch 250-50 mcg/dose inhalation disk albuterol-i Yes [id number] 1{puff} Inhale 1 [facility] pratropium 9-15 Puff 4 ity of 20-100 00:00: (four) [place] mcg/actuati 00 times Medical on inhaler daily. Branch aspirin 81 Yes [id number] 81mg Take 1 [facility] mg chewable 9-15 tablet by ity of tablet 00:00: mouth [place] 00 daily. Medical Branch nitroglycer Yes [id number] .4mg Place 1 [facility] in 9-15 tablet ity of (NITROSTAT) 00:00: under the [place] 0.4 mg 00 tongue Medical sublingual every 5 Branch tablet (five) minutes as needed for Chest pain. atorvastati Yes [id number] 40mg Take 1 [facility] n 40 mg 9-15 tablet by ity of tablet 00:00: mouth at [place] 00 bedtime. Medical Branch escitalopra Yes [id number] 10mg Take 1 [facility] m oxalate 9-15 tablet by ity o f 10 mg 00:00: mouth [place] tablet 00 daily. Medical Branch fluticasone Yes [id number] 1{puff} Inhale 1 [facility] propion-duc 9-15 Puff every it y of meteroL 00:00: 12 [place] (ADVAIR 00 (twelve) Medical DISKUS) hours. Branch 250-50 mcg/dose inhalation disk albuterol-i Yes [id number] 1{puff} Inhale 1 [facility] pratropium 9-15 Puff 4 ity of 20-100 00:00: (four) [place] mcg/actuati 00 times Medical on inhaler daily. Branch aspirin 81 0 Yes [id number] 81mg Take 1 [facility] mg chewable 9-15 tablet by ity of tablet 00:00: mouth [place] 00 daily. Medical Branch nitroglycer Yes [id number] .4mg Place 1 [facility] in 9-15 tablet ity of (NITROSTAT) 00:00: under the [place] 0.4 mg 00 tongue Medical sublingual every 5 Branch tablet (five) minutes as needed for Chest pain. atorvastati Yes [id number] 40mg Take 1 [facility] n 40 mg 9-15 tablet by ity of tablet 00:00: mouth at [place] 00 bedtime. Medical Branch escitalopra Yes [id number] 10mg Take 1 [facility] m oxalate 9-15 tablet by ity o f 10 mg 00:00: mouth [place] tablet 00 daily. Medical Branch fluticasone Yes [id number] 1{puff} Inhale 1 [facility] propion-duc 9-15 Puff every it y of meteroL 00:00: 12 [place] (ADVAIR 00 (twelve) Medical DISKUS) hours. Branch 250-50 mcg/dose inhalation disk albuterol-i Yes [id number] 1{puff} Inhale 1 [facility] pratropium 9-15 Puff 4 ity of 20-100 00:00: (four) [place] mcg/actuati 00 times Medical on inhaler daily. Branch aspirin 81 0 Yes [id number] 81mg Take 1 [facility] mg chewable 9-15 tablet by ity of tablet 00:00: mouth [place] 00 daily. Medical Branch nitroglycer Yes [id number] .4mg Place 1 [facility] in 9-15 tablet ity of (NITROSTAT) 00:00: under the [place] 0.4 mg 00 tongue Medical sublingual every 5 Branch tablet (five) minutes as needed for Chest pain. atorvastati Yes [id number] 40mg Take 1 [facility] n 40 mg 9-15 tablet by ity of tablet 00:00: mouth at [place] 00 bedtime. Medical Branch fluticasone Yes [id number] 1{puff} Inhale 1 [facility] propion-duc 9-15 Puff every it y of meteroL 00:00: 12 [place] (ADVAIR 00 (twelve) Medical DISKUS) hours. Branch 250-50 mcg/dose inhalation disk albuterol-i Yes [id number] 1{puff} Inhale 1 [facility] pratropium 9-15 Puff 4 ity of 20-100 00:00: (four) [place] mcg/actuati 00 times Medical on inhaler daily. Branch aspirin 81 Yes [id number] 81mg Take 1 [facility] mg chewable 9-15 tablet by ity of tablet 00:00: mouth [place] 00 daily. Medical Branch nitroglycer Yes [id number] .4mg Place 1 [facility] in 9-15 tablet ity of (NITROSTAT) 00:00: under the [place] 0.4 mg 00 tongue Medical sublingual every 5 Branch tablet (five) minutes as needed for Chest pain. atorvastati Yes [id number] 40mg Take 1 [facility] n 40 mg 9-15 tablet by ity of tablet 00:00: mouth at [place] 00 bedtime. Medical Branch fluticasone Yes [id number] 1{puff} Inhale 1 [facility] propion-duc 9-15 Puff every it y of meteroL 00:00: 12 [place] (ADVAIR 00 (twelve) Medical DISKUS) hours. Branch 250-50 mcg/dose inhalation disk albuterol-i Yes [id number] 1{puff} Inhale 1 [facility] pratropium 9-15 Puff 4 ity of 20-100 00:00: (four) [place] mcg/actuati 00 times Medical on inhaler daily. Branch aspirin 81 Yes [id number] 81mg Take 1 [facility] mg chewable 9-15 tablet by ity of tablet 00:00: mouth [place] 00 daily. Medical Branch nitroglycer Yes [id number] .4mg Place 1 [facility] in 9-15 tablet ity of (NITROSTAT) 00:00: under the [place] 0.4 mg 00 tongue Medical sublingual every 5 Branch tablet (five) minutes as needed for Chest pain. atorvastati Yes [id number] 40mg Take 1 [facility] n 40 mg 9-15 tablet by ity of tablet 00:00: mouth at [place] 00 bedtime. Medical Branch fluticasone Yes [id number] 1{puff} Inhale 1 [facility] propion-duc 9-15 Puff every it y of meteroL 00:00: 12 [place] (ADVAIR 00 (twelve) Medical DISKUS) hours. Branch 250-50 mcg/dose inhalation disk albuterol-i Yes [id number] 1{puff} Inhale 1 [facility] pratropium 9-15 Puff 4 ity of 20-100 00:00: (four) [place] mcg/actuati 00 times Medical on inhaler daily. Branch aspirin 81 Yes [id number] 81mg Take 1 [facility] mg chewable 9-15 tablet by ity of tablet 00:00: mouth [place] 00 daily. Medical Branch nitroglycer Yes [id number] .4mg Place 1 [facility] in 9-15 tablet ity of (NITROSTAT) 00:00: under the [place] 0.4 mg 00 tongue Medical sublingual every 5 Branch tablet (five) minutes as needed for Chest pain. atorvastati Yes [id number] 40mg Take 1 [facility] n 40 mg 9-15 tablet by ity of tablet 00:00: mouth at [place] 00 bedtime. Medical Branch fluticasone Yes [id number] 1{puff} Inhale 1 [facility] propion-duc 9-15 Puff every it y of meteroL 00:00: 12 [place] (ADVAIR 00 (twelve) Medical DISKUS) hours. Branch 250-50 mcg/dose inhalation disk albuterol-i Yes [id number] 1{puff} Inhale 1 [facility] pratropium 9-15 Puff 4 ity of 20-100 00:00: (four) [place] mcg/actuati 00 times Medical on inhaler daily. Branch aspirin 81 0 Yes [id number] 81mg Take 1 [facility] mg chewable 9-15 tablet by ity of tablet 00:00: mouth [place] 00 daily. Medical Branch nitroglycer [id number] 1 [facility] in 9-15 tablet ity of (NITROSTAT) 00:00: under the [place] 0.4 mg 00 tongue Medical sublingual every 5 Branch tablet (five) minutes as needed for Chest pain. atorvastati 0 Yes [id number] 40mg Take 1 [facility] n 40 mg 9-15 tablet by ity of tablet 00:00: mouth at [place] 00 bedtime. Medical Branch fluticasone 0 Yes [id number] 1{puff} Inhale 1 [facility] propion-duc 9-15 Puff every it y of meteroL 00:00: 12 [place] (ADVAIR 00 (twelve) Medical DISKUS) hours. Branch 250-50 mcg/dose inhalation disk albuterol-i 0 Yes [id number] 1{puff} Inhale 1 [facility] pratropium 9-15 Puff 4 ity of 20-100 00:00: (four) [place] mcg/actuati 00 times Medical on inhaler daily. Branch aspirin 81 2020-0 Yes [id number] 81mg Take 1 [facility] mg chewable 9-15 tablet by ity of tablet 00:00: mouth [place] 00 daily. Medical Branch nitroglycer [id number] 1 [facility] in 9-15 tablet ity of (NITROSTAT) 00:00: under the [place] 0.4 mg 00 tongue Medical sublingual every 5 Branc h tablet (five) minutes as needed for Chest pain. atorvastati 0 Yes [id number] 40mg Take 1 [facility] n 40 mg 9-15 tablet by ity of tablet 00:00: mouth at [place] 00 bedtime. Medical Branch fluticasone 0 Yes [id number] 1{puff} Inhale 1 [facility] propion-duc 9-15 Puff every it y of meteroL 00:00: 12 [place] (ADVAIR 00 (twelve) Medical DISKUS) hours. Branch 250-50 mcg/dose inhalation disk albuterol-i 2020-0 Yes [id number] 1{puff} Inhale 1 [facility] pratropium 9-15 Puff 4 ity of 20-100 00:00: (four) [place] mcg/actuati 00 times Medical on inhaler daily. Branch aspirin 81 0 Yes [id number] 81mg Take 1 [facility] mg chewable 9-15 tablet by ity of tablet 00:00: mouth [place] 00 daily. Medical Branch nitroglycer [id number] 1 [facility] in 9-15 tablet ity of (NITROSTAT) 00:00: under the [place] 0.4 mg 00 tongue Medical sublingual every 5 Branch tablet (five) minutes as needed for Chest pain. atorvastati Yes [id number] 40mg Take 1 [facility] n 40 mg 9-15 tablet by ity of tablet 00:00: mouth at [place] 00 bedtime. Medical Branch fluticasone Yes [id number] 1{puff} Inhale 1 [facility] propion-duc 9-15 Puff every it y of meteroL 00:00: 12 [place] (ADVAIR 00 (twelve) Medical DISKUS) hours. Branch 250-50 mcg/dose inhalation disk albuterol-i Yes [id number] 1{puff} Inhale 1 [facility] pratropium 9-15 Puff 4 ity of 20-100 00:00: (four) [place] mcg/actuati 00 times Medical on inhaler daily. Branch aspirin 81 0 Yes [id number] 81mg Take 1 [facility] mg chewable 9-15 tablet by ity of tablet 00:00: mouth [place] 00 daily. Medical Branch nitroglycer Yes [id number] .4mg Place 1 [facility] in 9-15 tablet ity of (NITROSTAT) 00:00: under the [place] 0.4 mg 00 tongue Medical sublingual every 5 Branch tablet (five) minutes as needed for Chest pain. atorvastati Yes [id number] 40mg Take 1 [facility] n 40 mg 9-15 tablet by ity of tablet 00:00: mouth at [place] 00 bedtime. Medical Branch fluticasone Yes [id number] 1{puff} Inhale 1 [facility] propion-duc 9-15 Puff every it y of meteroL 00:00: 12 [place] (ADVAIR 00 (twelve) Medical DISKUS) hours. Branch 250-50 mcg/dose inhalation disk albuterol-i Yes [id number] 1{puff} Inhale 1 [facility] pratropium 9-15 Puff 4 ity of 20-100 00:00: (four) [place] mcg/actuati 00 times Medical on inhaler daily. Branch aspirin 81 0 Yes [id number] 81mg Take 1 [facility] mg chewable 9-15 tablet by ity of tablet 00:00: mouth [place] 00 daily. Medical Branch nitroglycer [id number] 1 [facility] in 9-15 tablet ity of (NITROSTAT) 00:00: under the [place] 0.4 mg 00 tongue Medical sublingual every 5 Branch tablet (five) minutes as needed for Chest pain. atorvastati Yes [id number] 40mg Take 1 [facility] n 40 mg 9-15 tablet by ity of tablet 00:00: mouth at [place] 00 bedtime. Medical Branch fluticasone 0 Yes [id number] 1{puff} Inhale 1 [facility] propion-duc 9-15 Puff every it y of meteroL 00:00: 12 [place] (ADVAIR 00 (twelve) Medical DISKUS) hours. Branch 250-50 mcg/dose inhalation disk albuterol-i Yes [id number] 1{puff} Inhale 1 [facility] pratropium 9-15 Puff 4 ity of 20-100 00:00: (four) [place] mcg/actuati 00 times Medical on inhaler daily. Branch aspirin 81 0 Yes [id number] 81mg Take 1 [facility] mg chewable 9-15 tablet by ity of tablet 00:00: mouth [place] 00 daily. Medical Branch nitroglycer Yes [id number] .4mg Place 1 [facility] in 9-15 tablet ity of (NITROSTAT) 00:00: under the [place] 0.4 mg 00 tongue Medical sublingual every 5 Branch tablet (five) minutes as needed for Chest pain. atorvastati 0 Yes [id number] 40mg Take 1 [facility] n 40 mg 9-15 tablet by ity of tablet 00:00: mouth at [place] 00 bedtime. Medical Branch fluticasone 0 Yes [id number] 1{puff} Inhale 1 [facility] propion-duc 9-15 Puff every it y of meteroL 00:00: 12 [place] (ADVAIR 00 (twelve) Medical DISKUS) hours. Branch 250-50 mcg/dose inhalation disk albuterol-i Yes [id number] 1{puff} Inhale 1 [facility] pratropium 9-15 Puff 4 ity of 20-100 00:00: (four) [place] mcg/actuati 00 times Medical on inhaler daily. Branch aspirin 81 0 Yes [id number] 81mg Take 1 [facility] mg chewable 9-15 tablet by ity of tablet 00:00: mouth [place] 00 daily. Medical Branch nitroglycer Yes [id number] .4mg Place 1 [facility] in 9-15 tablet ity of (NITROSTAT) 00:00: under the [place] 0.4 mg 00 tongue Medical sublingual every 5 Branch tablet (five) minutes as needed for Chest pain. atorvastati Yes [id number] 40mg Take 1 [facility] n 40 mg 9-15 tablet by ity of tablet 00:00: mouth at [place] 00 bedtime. Medical Branch fluticasone Yes [id number] 1{puff} Inhale 1 [facility] propion-duc 9-15 Puff every it y of meteroL 00:00: 12 [place] (ADVAIR 00 (twelve) Medical DISKUS) hours. Branch 250-50 mcg/dose inhalation disk albuterol-i Yes [id number] 1{puff} Inhale 1 [facility] pratropium 9-15 Puff 4 ity of 20-100 00:00: (four) [place] mcg/actuati 00 times Medical on inhaler daily. Branch aspirin 81 0 Yes [id number] 81mg Take 1 [facility] mg chewable 9-15 tablet by ity of tablet 00:00: mouth [place] 00 daily. Medical Branch nitroglycer Yes [id number] .4mg Place 1 [facility] in 9-15 tablet ity of (NITROSTAT) 00:00: under the [place] 0.4 mg 00 tongue Medical sublingual every 5 Branch tablet (five) minutes as needed for Chest pain. atorvastati Yes [id number] 40mg Take 1 [facility] n 40 mg 9-15 tablet by ity of tablet 00:00: mouth at [place] 00 bedtime. Medical Branch fluticasone 0 Yes [id number] 1{puff} Inhale 1 [facility] propion-duc 9-15 Puff every it y of meteroL 00:00: 12 [place] (ADVAIR 00 (twelve) Medical DISKUS) hours. Branch 250-50 mcg/dose inhalation disk albuterol-i Yes [id number] 1{puff} Inhale 1 [facility] pratropium 9-15 Puff 4 ity of 20-100 00:00: (four) [place] mcg/actuati 00 times Medical on inhaler daily. Branch aspirin 81 Yes [id number] 81mg Take 1 [facility] mg chewable 9-15 tablet by ity of tablet 00:00: mouth [place] 00 daily. Medical Branch nitroglycer Yes [id number] .4mg Place 1 [facility] in 9-15 tablet ity of (NITROSTAT) 00:00: under the [place] 0.4 mg 00 tongue Medical sublingual every 5 Branch tablet (five) minutes as needed for Chest pain. atorvastati Yes [id number] 40mg Take 1 [facility] n 40 mg 9-15 tablet by ity of tablet 00:00: mouth at [place] 00 bedtime. Medical Branch escitalopra 2021- No [id number] 10mg Take 1 [facility] m oxalate 9-15 11-18 tablet by ity of 10 mg 00:00: 00:00 mouth [place] tablet 00 :00 daily. Medical Branch BD MATIAS Yes [id number] INJECT [facility] GEN PEN 3-21 UNDER THE ity of NEEDLE 32 00:00: SKIN THREE [place] gauge x 00 TIMES Medical 5/32" Ndle DAILY Branch BD MATIAS Yes [id number] INJECT [facility] GEN PEN 3-21 UNDER THE ity of NEEDLE 32 00:00: SKIN THREE [place] gauge x 00 TIMES Medical 5/32" Ndle DAILY Branch BD MATIAS Yes [id number] INJECT [facility] GEN PEN 3-21 UNDER THE ity of NEEDLE 32 00:00: SKIN THREE [place] gauge x 00 TIMES Medical 5/32" Ndle DAILY Branch BD MATIAS Yes [id number] INJECT [facility] GEN PEN 3-21 UNDER THE ity of NEEDLE 32 00:00: SKIN THREE [place] gauge x 00 TIMES Medical 5/32" Ndle DAILY Branch BD MATIAS Yes [id number] INJECT [facility] GEN PEN 3-21 UNDER THE ity of NEEDLE 32 00:00: SKIN THREE [place] gauge x 00 TIMES Medical " Ndle DAILY Branch BD MATIAS Yes [id number] INJECT [facility] GEN PEN 3-21 UNDER THE ity of NEEDLE 32 00:00: SKIN THREE [place] gauge x 00 TIMES Medical " Ndle DAILY Branch BD MATIAS Yes [id number] INJECT [facility] GEN PEN 3-21 UNDER THE ity of NEEDLE 32 00:00: SKIN THREE [place] gauge x 00 TIMES Medical " Ndle DAILY Branch BD MATIAS Yes [id number] INJECT [facility] GEN PEN 3-21 UNDER THE ity of NEEDLE 32 00:00: SKIN THREE [place] gauge x 00 TIMES Medical " Ndle DAILY Branch BD MATIAS Yes [id number] INJECT [facility] GEN PEN 3-21 UNDER THE ity of NEEDLE 32 00:00: SKIN THREE [place] gauge x 00 TIMES Medical " Ndle DAILY Branch BD MATIAS Yes [id number] INJECT [facility] GEN PEN 3-21 UNDER THE ity of NEEDLE 32 00:00: SKIN THREE [place] gauge x 00 TIMES Medical " Ndle DAILY Branch BD MATIAS Yes [id number] INJECT [facility] GEN PEN 3-21 UNDER THE ity of NEEDLE 32 00:00: SKIN THREE [place] gauge x 00 TIMES Medical " Ndle DAILY Branch BD MATIAS Yes [id number] INJECT [facility] GEN PEN 3-21 UNDER THE ity of NEEDLE 32 00:00: SKIN THREE [place] gauge x 00 TIMES Medical " Ndle DAILY Branch BD MATIAS Yes [id number] INJECT [facility] GEN PEN 3-21 UNDER THE ity of NEEDLE 32 00:00: SKIN THREE [place] gauge x 00 TIMES Medical " Ndle DAILY Branch BD MATIAS Yes [id number] INJECT [facility] GEN PEN 3-21 UNDER THE ity of NEEDLE 32 00:00: SKIN THREE [place] gauge x 00 TIMES Medical " Ndle DAILY Branch BD MATIAS Yes [id number] INJECT [facility] GEN PEN 3-21 UNDER THE ity of NEEDLE 32 00:00: SKIN THREE [place] gauge x 00 TIMES Medical " Ndle DAILY Branch BD MATIAS 2ND 2020-0 Yes [id number] INJECT [facility] GEN PEN 3-21 UNDER THE ity of NEEDLE 32 00:00: SKIN THREE [place] gauge x 00 TIMES Medical 5/32" Ndle DAILY Branch BD MATIAS 2ND 2020-0 Yes [id number] INJECT [facility] GEN PEN 3-21 UNDER THE ity of NEEDLE 32 00:00: SKIN THREE [place] gauge x 00 TIMES Medical 5/32" Ndle DAILY Branch BD MATIAS 2ND 2020-0 2022- No [id number] INJECT [facility] GEN PEN 3-21 12-15 UNDER THE ity of NEEDLE 32 00:00: 00:00 SKIN THREE [place] gauge x 00 :00 TIMES Medical 532" Ndle DAILY Branch blood sugar 2020-0 Yes [id number] 3 Un jb diagnostic 2-05 times/day ity of (ONETOUCH 00:00: [place] VERIO TEST 00 Medical STRIPS) Branch strip fluticasone 2020-0 Yes [id number] 2{spray Use 2 [facility] propionate 2-05 } Sprays in ity of 50 00:00: each [place] mcg/actuati 00 nostril Medic al on nasal daily. Branch spray blood sugar 2020-0 Yes [id number] 3 Un jb diagnostic 2-05 times/day ity of (ONETOUCH 00:00: [place] VERIO TEST 00 Medical STRIPS) Branch strip fluticasone 2020-0 Yes [id number] 2{spray Use 2 [facility] propionate 2-05 } Sprays in ity of 50 00:00: each [place] mcg/actuati 00 nostril Medic al on nasal daily. Branch spray blood sugar 2020-0 Yes [id number] 3 Un jb diagnostic 2-05 times/day ity of (ONETOUCH 00:00: [place] VERIO TEST 00 Medical STRIPS) Branch strip fluticasone 2020-0 Yes [id number] 2{spray Use 2 [facility] propionate 2-05 } Sprays in ity of 50 00:00: each [place] mcg/actuati 00 nostril Medic al on nasal daily. Branch spray blood sugar 2020-0 Yes [id number] 3 Un jb diagnostic 2-05 times/day ity of (ONETOUCH 00:00: [place] VERIO TEST 00 Medical STRIPS) Branch strip fluticasone 2020-0 Yes [id number] 2{spray Use 2 [facility] propionate 2-05 } Sprays in ity of 50 00:00: each [place] mcg/actuati 00 nostril Medic al on nasal daily. Branch spray blood sugar 2020-0 Yes [id number] 3 Un jb diagnostic 2-05 times/day ity of (ONETOUCH 00:00: [place] VERIO TEST 00 Medical STRIPS) Branch strip fluticasone 2020-0 Yes [id number] 2{spray Use 2 [facility] propionate 2-05 } Sprays in ity of 50 00:00: each [place] mcg/actuati 00 nostril Medic al on nasal daily. Branch spray blood sugar 2020-0 Yes [id number] 3 Un jb diagnostic 2-05 times/day ity of (ONETOUCH 00:00: [place] VERIO TEST 00 Medical STRIPS) Branch strip fluticasone 2020-0 Yes [id number] 2{spray Use 2 [facility] propionate 2-05 } Sprays in ity of 50 00:00: each [place] mcg/actuati 00 nostril Medic al on nasal daily. Branch spray blood sugar 2020-0 Yes [id number] 3 Un jb diagnostic 2-05 times/day ity of (ONETOUCH 00:00: [place] VERIO TEST 00 Medical STRIPS) Branch strip fluticasone 2020-0 Yes [id number] 2{spray Use 2 [facility] propionate 2-05 } Sprays in ity of 50 00:00: each [place] mcg/actuati 00 nostril Medic al on nasal daily. Branch spray blood sugar 2020-0 Yes [id number] 3 Un jb diagnostic 2-05 times/day ity of (ONETOUCH 00:00: [place] VERIO TEST 00 Medical STRIPS) Branch strip fluticasone 2020-0 Yes [id number] 2{spray Use 2 [facility] propionate 2-05 } Sprays in ity of 50 00:00: each [place] mcg/actuati 00 nostril Medic al on nasal daily. Branch spray blood sugar 2020-0 Yes [id number] 3 Un jb diagnostic 2-05 times/day ity of (ONETOUCH 00:00: [place] VERIO TEST 00 Medical STRIPS) Branch strip fluticasone 2021-0 Yes [id number] 2{spray Use 2 [facility] propionate 2-05 } Sprays in ity of 50 00:00: each [place] mcg/actuati 00 nostril Medic al on nasal daily. Branch spray blood sugar 2020-0 Yes [id number] 3 Un jb diagnostic 2-05 times/day ity of (ONETOUCH 00:00: [place] VERIO TEST 00 Medical STRIPS) Branch strip fluticasone 2020-0 Yes [id number] 2{spray Use 2 [facility] propionate 2-05 } Sprays in ity of 50 00:00: each [place] mcg/actuati 00 nostril Medic al on nasal daily. Branch spray blood sugar 2020-0 Yes [id number] 3 Un jb diagnostic 2-05 times/day ity of (ONETOUCH 00:00: [place] VERIO TEST 00 Medical STRIPS) Branch strip fluticasone 2020-0 Yes [id number] 2{spray Use 2 [facility] propionate 2-05 } Sprays in ity of 50 00:00: each [place] mcg/actuati 00 nostril Medic al on nasal daily. Branch spray blood sugar 2020-0 Yes [id number] 3 Un jb diagnostic 2-05 times/day ity of (ONETOUCH 00:00: [place] VERIO TEST 00 Medical STRIPS) Branch strip fluticasone 2020-0 Yes [id number] 2{spray Use 2 [facility] propionate 2-05 } Sprays in ity of 50 00:00: each [place] mcg/actuati 00 nostril Medic al on nasal daily. Branch spray blood sugar 2020-0 Yes [id number] 3 Un jb diagnostic 2-05 times/day ity of (ONETOUCH 00:00: [place] VERIO TEST 00 Medical STRIPS) Branch strip fluticasone 1-0 Yes [id number] 2{spray Use 2 [facility] propionate 2-05 } Sprays in ity of 50 00:00: each [place] mcg/actuati 00 nostril Medic al on nasal daily. Branch spray blood sugar 2020-0 Yes [id number] 3 Un jb diagnostic 2-05 times/day ity of (ONETOUCH 00:00: [place] VERIO TEST 00 Medical STRIPS) Branch strip fluticasone 2021-0 Yes [id number] 2{spray Use 2 [facility] propionate 2-05 } Sprays in ity of 50 00:00: each [place] mcg/actuati 00 nostril Medic al on nasal daily. Branch spray blood sugar 2020-0 Yes [id number] 3 Un jb diagnostic 2-05 times/day ity of (ONETOUCH 00:00: [place] VERIO TEST 00 Medical STRIPS) Branch strip fluticasone 2020-0 Yes [id number] 2{spray Use 2 [facility] propionate 2-05 } Sprays in ity of 50 00:00: each [place] mcg/actuati 00 nostril Medic al on nasal daily. Branch spray blood sugar 2020-0 Yes [id number] 3 Un jb diagnostic 2-05 times/day ity of (ONETOUCH 00:00: [place] VERIO TEST 00 Medical STRIPS) Branch strip fluticasone 2020-0 Yes [id number] 2{spray Use 2 [facility] propionate 2-05 } Sprays in ity of 50 00:00: each [place] mcg/actuati 00 nostril Medic al on nasal daily. Branch spray blood sugar 2020-0 Yes [id number] 3 Un jb diagnostic 2-05 times/day ity of (ONETOUCH 00:00: [place] VERIO TEST 00 Medical STRIPS) Branch strip fluticasone 2020-0 Yes [id number] 2{spray Use 2 [facility] propionate 2-05 } Sprays in ity of 50 00:00: each [place] mcg/actuati 00 nostril Medic al on nasal daily. Branch spray blood sugar 2020-0 Yes [id number] 3 Un jb diagnostic 2-05 times/day ity of (ONETOUCH 00:00: [place] VERIO TEST 00 Medical STRIPS) Branch strip fluticasone 2020-0 Yes [id number] 2{spray Use 2 [facility] propionate 2-05 } Sprays in ity of 50 00:00: each [place] mcg/actuati 00 nostril Medic al on nasal daily. Branch spray blood sugar 2020-0 Yes [id number] 3 Un jb diagnostic 2-05 times/day ity of (ONETOUCH 00:00: [place] VERIO TEST 00 Medical STRIPS) Branch strip fluticasone 2020-0 Yes [id number] 2{spray Use 2 [facility] propionate 2-05 } Sprays in ity of 50 00:00: each [place] mcg/actuati 00 nostril Medic al on nasal daily. Branch spray Insulin 2019- Yes [id number] Before [facility] [place], 1-11 meals, dx ity of Disposable, 00:00: code E11.9 [place] 31 gauge x 00 Pen needle Med ical 1/4" Ndle humalog Branch quick pen Insulin 2019- Yes [id number] Before [facility] [place], 1-11 meals, dx ity of Disposable, 00:00: code E11.9 [place] 31 gauge x 00 Pen needle Med ical 1/4" Ndle humalog Branch quick pen Insulin 2019- Yes [id number] Before [facility] [place], 1-11 meals, dx ity of Disposable, 00:00: code E11.9 [place] 31 gauge x 00 Pen needle Med ical 1/4" Ndle humalog Branch quick pen Insulin 2019- Yes [id number] Before [facility] [place], 1-11 meals, dx ity of Disposable, 00:00: code E11.9 [place] 31 gauge x 00 Pen needle Med ical 1/4" Ndle humalog Branch quick pen Insulin 2019- Yes [id number] Before [facility] [place], 1-11 meals, dx ity of Disposable, 00:00: code E11.9 [place] 31 gauge x 00 Pen needle Med ical 1/4" Ndle humalog Branch quick pen Insulin 2019- Yes [id number] Before [facility] [place], 1-11 meals, dx ity of Disposable, 00:00: code E11.9 [place] 31 gauge x 00 Pen needle Med ical 1/4" Ndle humalog Branch quick pen Insulin 2019- Yes [id number] Before [facility] [place], 1-11 meals, dx ity of Disposable, 00:00: code E11.9 [place] 31 gauge x 00 Pen needle Med ical 1/4" Ndle humalog Branch quick pen Insulin 2019- Yes [id number] Before [facility] [place], 1-11 meals, dx ity of Disposable, 00:00: code E11.9 [place] 31 gauge x 00 Pen needle Med ical 1/4" Ndle humalog Branch quick pen Insulin 2019- Yes [id number] Before [facility] [place], 1-11 meals, dx ity of Disposable, 00:00: code E11.9 [place] 31 gauge x 00 Pen needle Med ical 1/4" Ndle humalog Branch quick pen Insulin 2019- Yes [id number] Before [facility] [place], 1-11 meals, dx ity of Disposable, 00:00: code E11.9 [place] 31 gauge x 00 Pen needle Med ical 1/4" Ndle humalog Branch quick pen Insulin 2019- Yes [id number] Before [facility] [place], 1-11 meals, dx ity of Disposable, 00:00: code E11.9 [place] 31 gauge x 00 Pen needle Med ical 1/4" Ndle humalog Branch quick pen Insulin 2019- Yes [id number] Before [facility] [place], 1-11 meals, dx ity of Disposable, 00:00: code E11.9 [place] 31 gauge x 00 Pen needle Med ical 1/4" Ndle humalog Branch quick pen Insulin 2019- Yes [id number] Before [facility] [place], 1-11 meals, dx ity of Disposable, 00:00: code E11.9 [place] 31 gauge x 00 Pen needle Med ical 1/4" Ndle hum[place]og Branch quick pen Insulin 2019- Yes [id number] Before [facility] [place], 1-11 meals, dx ity of Disposable, 00:00: code E11.9 [place] 31 gauge x 00 Pen needle Med ical 1/4" Ndle hum[place]og Branch quick pen Insulin 2019- Yes [id number] Before [facility] [place], 1-11 meals, dx ity of Disposable, 00:00: code E11.9 [place] 31 gauge x 00 Pen needle Med ical 1/4" Ndle hum[place]og Branch quick pen Insulin 2019- Yes [id number] Before [facility] [place], 1-11 meals, dx ity of Disposable, 00:00: code E11.9 [place] 31 gauge x 00 Pen needle Med ical 1/4" Ndle hum[place]og Branch quick pen Insulin 2019- Yes [id number] Before [facility] [place], 1-11 meals, dx ity of Disposable, 00:00: code E11.9 [place] 31 gauge x 00 Pen needle Med ical 1/4" Ndle humalog Branch quick pen Insulin 2018-2021- No [id number] Before [facility] [place], 1-11 12-15 meals, dx ity o f Disposable, 00:00: 00:00 code E11.9 [place] 31 gauge x 00 :00 Pen needle Med ical 1/4" Ndle humalog Branch quick pen COLCRYS 0.6 2019-0 Yes [id number] .6mg TAKE 1 [facility] mg tablet 2-19 TABLET BY ity o f 00:00: MOUTH [place] 00 DAILY Medical Branch COLCRYS 0.6 2019-0 Yes [id number] .6mg TAKE 1 [facility] mg tablet 2-19 TABLET BY ity o f 00:00: MOUTH DAILY Medical Branch COLCRYS 0.6 2019-0 Yes [id number] .6mg TAKE 1 [facility] mg tablet 2-19 TABLET BY ity o f 00:00: MOUTH 00 DAILY Medical Branch COLCRYS 0.6 2019-0 Yes [id number] .6mg TAKE 1 [facility] mg tablet 2-19 TABLET BY ity o f 00:00: MOUTH DAILY Medical Branch COLCRYS 0.6 2019-0 Yes .6mg TAKE 1 [facility] mg tablet 2-19 TABLET BY ity o f 00:00: MOUTH DAILY Medical Branch COLCRYS 0.6 2019-0 Yes [id number] .6mg TAKE 1 [facility] mg tablet 2-19 TABLET BY ity o f 00:00: MOUTH DAILY Medical Branch COLCRYS 0.6 2019-0 Yes .6mg TAKE 1 [facility] mg tablet 2-19 TABLET BY ity o f 00:00: MOUTH DAILY Medical Branch COLCRYS 0.6 2019-0 Yes .6mg TAKE 1 [facility] mg tablet 2-19 TABLET BY ity o f 00:00: MOUTH DAILY Medical Branch COLCRYS 0.6 2019-0 Yes [id number] .6mg TAKE 1 [facility] mg tablet 2-19 TABLET BY ity o f 00:00: MOUTH DAILY Medical Branch COLCRYS 0.6 2019-0 Yes [id number] .6mg TAKE 1 [facility] mg tablet 2-19 TABLET BY ity o f 00:00: MOUTH DAILY Medical Branch COLCRYS 0.6 2019-0 Yes [id number] .6mg TAKE 1 [facility] mg tablet 2-19 TABLET BY ity o f 00:00: MOUTH DAILY Medical Branch COLCRYS 0.6 2019-0 Yes [id number] .6mg TAKE 1 [facility] mg tablet 2-19 TABLET BY ity o f 00:00: MOUTH DAILY Medical Branch COLCRYS 0.6 2019-0 Yes .6mg TAKE 1 [facility] mg tablet 2-19 TABLET BY ity o f 00:00: MOUTH DAILY Medical Branch COLCRYS 0.6 2019-0 Yes [id number] .6mg TAKE 1 [facility] mg tablet 2-19 TABLET BY ity o f 00:00: MOUTH DAILY Medical Branch COLCRYS 0.6 2019-0 Yes [id number] .6mg TAKE 1 [facility] mg tablet 2-19 TABLET BY ity o f 00:00: MOUTH [place] 00 DAILY Medical Branch COLCRYS 0.6 2019-0 Yes [id number] .6mg TAKE 1 [facility] mg tablet 2-19 TABLET BY ity o f 00:00: MOUTH [place] 00 DAILY Medical Branch COLCRYS 0.6 2019-0 Yes [id number] .6mg TAKE 1 [facility] mg tablet 2-19 TABLET BY ity o f 00:00: MOUTH [place] 00 DAILY Medical Branch COLCRYS 0.6 2019-0 Yes [id number] .6mg TAKE 1 [facility] mg tablet 2-19 TABLET BY ity o f 00:00: MOUTH [place] 00 DAILY Medical Branch COLCRYS 0.6 2019-0 Yes [id number] .6mg TAKE 1 [facility] mg tablet 2-19 TABLET BY ity o f 00:00: MOUTH [place] 00 DAILY Medical Branch Immunizations Ordered Filled Immunization Date Status Comments [facility] e Immunization Name Name SARS-COV-2 COVID-19 2020-11-07 Completed Unive rsity of PFIZER VACCINE 00:00:00 [facility] SARS-COV-2 COVID-19 2020-11-07 Completed Unive rsity of PFIZER VACCINE 00:00:00 [facility] SARS-COV-2 COVID-19 2020-11-07 Completed Unive rsity of PFIZER VACCINE 00:00:00 [facility] SARS-COV-2 COVID-19 2020-11-07 Completed Unive rsity of PFIZER VACCINE 00:00:00 [facility] SARS-COV-2 COVID-19 2020-11-07 Completed Unive rsity of PFIZER VACCINE 00:00:00 [facility] SARS-COV-2 COVID-19 2020-11-07 Completed Unive rsity of PFIZER VACCINE 00:00:00 [facility] SARS-COV-2 COVID-19 2020-11-07 Completed Unive rsity of PFIZER VACCINE 00:00:00 [facility] SARS-COV-2 COVID-19 2020-11-07 Completed Unive rsity of PFIZER VACCINE 00:00:00 [facility] SARS-COV-2 COVID-19 2020-11-07 Completed Unive rsity of PFIZER VACCINE 00:00:00 [facility] SARS-COV-2 COVID-19 2020-11-07 Completed Unive rsity of PFIZER VACCINE 00:00:00 [facility] SARS-COV-2 COVID-19 2020-11-07 Completed Unive rsity of PFIZER VACCINE 00:00:00 [facility] SARS-COV-2 COVID-19 2020-11-07 Completed Unive rsity of PFIZER VACCINE 00:00:00 [facility] SARS-COV-2 COVID-19 2020-11-07 Completed Unive rsity of PFIZER VACCINE 00:00:00 [facility] SARS-COV-2 COVID-19 2020-11-07 Completed Unive rsity of PFIZER VACCINE 00:00:00 [facility] SARS-COV-2 COVID-19 2020-11-07 Completed Unive rsity of PFIZER VACCINE 00:00:00 [facility] SARS-COV-2 COVID-19 2020-11-07 Completed Unive rsity of PFIZER VACCINE 00:00:00 [facility] SARS-COV-2 COVID-19 2020-11-07 Completed Unive rsity of PFIZER VACCINE 00:00:00 [facility] SARS-COV-2 COVID-19 2020-11-07 Completed Unive rsity of PFIZER VACCINE 00:00:00 [facility] SARS-COV-2 COVID-19 2020-11-07 Completed Unive rsity of PFIZER VACCINE 00:00:00 [facility] SARS-COV-2 COVID-19 2020-04-19 Completed Unive rsity of PFIZER VACCINE 00:00:00 [facility] SARS-COV-2 COVID-19 2020-04-19 Completed Unive rsity of PFIZER VACCINE 00:00:00 [facility] SARS-COV-2 COVID-19 2020-04-19 Completed Unive rsity of PFIZER VACCINE 00:00:00 [facility] SARS-COV-2 COVID-19 2020-04-19 Completed Unive rsity of PFIZER VACCINE 00:00:00 [facility] SARS-COV-2 COVID-19 2020-04-19 Completed Unive rsity of PFIZER VACCINE 00:00:00 [facility] SARS-COV-2 COVID-19 2020-04-19 Completed Unive rsity of PFIZER VACCINE 00:00:00 [facility] SARS-COV-2 COVID-19 2020-04-19 Completed Unive rsity of PFIZER VACCINE 00:00:00 [facility] SARS-COV-2 COVID-19 2020-04-19 Completed Unive rsity of PFIZER VACCINE 00:00:00 [facility] SARS-COV-2 COVID-19 2020-04-19 Completed Unive rsity of PFIZER VACCINE 00:00:00 [facility] SARS-COV-2 COVID-19 2020-04-19 Completed Unive rsity of PFIZER VACCINE 00:00:00 [facility] SARS-COV-2 COVID-19 2020-04-19 Completed Unive rsity of PFIZER VACCINE 00:00:00 [facility] SARS-COV-2 COVID-19 2020-04-19 Completed Unive rsity of PFIZER VACCINE 00:00:00 [facility] SARS-COV-2 COVID-19 2020-04-19 Completed Unive rsity of PFIZER VACCINE 00:00:00 [facility] SARS-COV-2 COVID-19 2020-04-19 Completed Unive rsity of PFIZER VACCINE 00:00:00 [facility] SARS-COV-2 COVID-19 2020-04-19 Completed Unive rsity of PFIZER VACCINE 00:00:00 [facility] SARS-COV-2 COVID-19 2020-04-19 Completed Unive rsity of PFIZER VACCINE 00:00:00 [facility] SARS-COV-2 COVID-19 2020-04-19 Completed Unive rsity of PFIZER VACCINE 00:00:00 [facility] SARS-COV-2 COVID-19 2020-04-19 Completed Unive rsity of PFIZER VACCINE 00:00:00 [facility] SARS-COV-2 COVID-19 2020-04-19 Completed Unive rsity of PFIZER VACCINE 00:00:00 [facility] SARS-COV-2 COVID-19 2020-03-21 Completed Unive rsity of PFIZER VACCINE 00:00:00 [facility] SARS-COV-2 COVID-19 2020-03-21 Completed Unive rsity of PFIZER VACCINE 00:00:00 [facility] SARS-COV-2 COVID-19 2020-03-21 Completed Unive rsity of PFIZER VACCINE 00:00:00 [facility] SARS-COV-2 COVID-19 2020-03-21 Completed Unive rsity of PFIZER VACCINE 00:00:00 [facility] SARS-COV-2 COVID-19 2020-03-21 Completed Unive rsity of PFIZER VACCINE 00:00:00 [facility] SARS-COV-2 COVID-19 2020-03-21 Completed Unive rsity of PFIZER VACCINE 00:00:00 [facility] SARS-COV-2 COVID-19 2020-03-21 Completed Unive rsity of PFIZER VACCINE 00:00:00 [facility] SARS-COV-2 COVID-19 2020-03-21 Completed Unive rsity of PFIZER VACCINE 00:00:00 [facility] SARS-COV-2 COVID-19 2020-03-21 Completed Unive rsity of PFIZER VACCINE 00:00:00 [facility] SARS-COV-2 COVID-19 2020-03-21 Completed Unive rsity of PFIZER VACCINE 00:00:00 [facility] SARS-COV-2 COVID-19 2020-03-21 Completed Unive rsity of PFIZER VACCINE 00:00:00 [facility] SARS-COV-2 COVID-19 2020-03-21 Completed Unive rsity of PFIZER VACCINE 00:00:00 [facility] SARS-COV-2 COVID-19 2020-03-21 Completed Unive rsity of PFIZER VACCINE 00:00:00 [facility] SARS-COV-2 COVID-19 2020-03-21 Completed Unive rsity of PFIZER VACCINE 00:00:00 [facility] SARS-COV-2 COVID-19 2020-03-21 Completed Unive rsity of PFIZER VACCINE 00:00:00 [facility] SARS-COV-2 COVID-19 2020-03-21 Completed Unive rsity of PFIZER VACCINE 00:00:00 [facility] SARS-COV-2 COVID-19 2020-03-21 Completed Unive rsity of PFIZER VACCINE 00:00:00 [facility] SARS-COV-2 COVID-19 2020-03-21 Completed Unive rsity of PFIZER VACCINE 00:00:00 [facility] SARS-COV-2 COVID-19 2020-03-21 Completed Unive rsity of PFIZER VACCINE 00:00:00 [facility] Influenza High Dose 2019-05-29 Completed Unive rsity of 00:00:00 [facility] Influenza High Dose 2019-05-29 Completed Unive rsity of 00:00:00 [facility] Influenza High Dose 2019-05-29 Completed Unive rsity of 00:00:00 [facility] Influenza High Dose 2019-05-29 Completed Unive rsity of 00:00:00 [facility] Influenza High Dose 2019-05-29 Completed Unive rsity of 00:00:00 [facility] Influenza High Dose 2019-05-29 Completed Unive rsity of 00:00:00 [facility] Influenza High Dose 2019-05-29 Completed Unive rsity of 00:00:00 [facility] Influenza High Dose 2019-05-29 Completed Unive rsity of 00:00:00 [facility] Influenza High Dose 2019-05-29 Completed Unive rsity of 00:00:00 [facility] Influenza High Dose 2019-05-29 Completed Unive rsity of 00:00:00 [facility] Influenza High Dose 2019-05-29 Completed Unive rsity of 00:00:00 [facility] Influenza High Dose 2019-05-29 Completed Unive rsity of 00:00:00 [facility] Influenza High Dose 2019-05-29 Completed Unive rsity of 00:00:00 [facility] Influenza High Dose 2019-05-29 Completed Unive rsity of 00:00:00 [facility] Influenza High Dose 2019-05-29 Completed Unive rsity of 00:00:00 [facility] Influenza High Dose 2019-05-29 Completed Unive rsity of 00:00:00 [facility] Influenza High Dose 2019-05-29 Completed Unive rsity of 00:00:00 [facility] Influenza High Dose 2019-05-29 Completed Unive rsity of 00:00:00 [facility] Influenza High Dose 2019-05-29 Completed Unive rsity of 00:00:00 [facility] Influenza High Dose 2017-02-10 Completed Unive rsity of 00:00:00 [facility] Influenza High Dose 2017-02-10 Completed Unive rsity of 00:00:00 [facility] Influenza High Dose 2017-02-10 Completed Unive rsity of 00:00:00 [facility] Influenza High Dose 2017-02-10 Completed Unive rsity of 00:00:00 [facility] Influenza High Dose 2017-02-10 Completed Unive rsity of 00:00:00 [facility] Influenza High Dose 2017-02-10 Completed Unive rsity of 00:00:00 [facility] Influenza High Dose 2017-02-10 Completed Unive rsity of 00:00:00 [facility] Influenza High Dose 2017-02-10 Completed Unive rsity of 00:00:00 [facility] Influenza High Dose 2017-02-10 Completed Unive rsity of 00:00:00 [facility] Influenza High Dose 2017-02-10 Completed Unive rsity of 00:00:00 [facility] Influenza High Dose 2017-02-10 Completed Unive rsity of 00:00:00 [facility] Influenza High Dose 2017-02-10 Completed Unive rsity of 00:00:00 [facility] Influenza High Dose 2017-02-10 Completed Unive rsity of 00:00:00 [facility] Influenza High Dose 2017-02-10 Completed Unive rsity of 00:00:00 [facility] Influenza High Dose 2017-02-10 Completed Unive rsity of 00:00:00 [facility] Influenza High Dose 2017-02-10 Completed Unive rsity of 00:00:00 [facility] Influenza High Dose 2017-02-10 Completed Unive rsity of 00:00:00 [facility] Influenza High Dose 2017-02-10 Completed Unive rsity of 00:00:00 [facility] Influenza High Dose 2017-02-10 Completed Unive rsity of 00:00:00 [facility] Influenza High Dose 2015-12-25 Completed Unive rsity of 00:00:00 [facility] Influenza High Dose 2015-12-25 Completed Unive rsity of 00:00:00 [facility] Influenza High Dose 2015-12-25 Completed Unive rsity of 00:00:00 [facility] Influenza High Dose 2015-12-25 Completed Unive rsity of 00:00:00 [facility] Influenza High Dose 2015-12-25 Completed Unive rsity of 00:00:00 [facility] Influenza High Dose 2015-12-25 Completed Unive rsity of 00:00:00 [facility] Influenza High Dose 2015-12-25 Completed Unive rsity of 00:00:00 [facility] Influenza High Dose 2015-12-25 Completed Unive rsity of 00:00:00 [facility] Influenza High Dose 2015-12-25 Completed Unive rsity of 00:00:00 [facility] Influenza High Dose 2015-12-25 Completed Unive rsity of 00:00:00 [facility] Influenza High Dose 2015-12-25 Completed Unive rsity of 00:00:00 [facility] Influenza High Dose 2015-12-25 Completed Unive rsity of 00:00:00 [facility] Influenza High Dose 2015-12-25 Completed Unive rsity of 00:00:00 [facility] Influenza High Dose 2015-12-25 Completed Unive rsity of 00:00:00 [facility] Influenza High Dose 2015-12-25 Completed Unive rsity of 00:00:00 [facility] Influenza High Dose 2015-12-25 Completed Unive rsity of 00:00:00 [facility] Influenza High Dose 2015-12-25 Completed Unive rsity of 00:00:00 [facility] Influenza High Dose 2015-12-25 Completed Unive rsity of 00:00:00 [facility] Influenza High Dose 2015-12-25 Completed Unive rsity of 00:00:00 [facility] Influenza High Dose 2015-03-20 Completed Unive rsity of 00:00:00 [facility] TDAP 2015-03-20 Completed University of 00:00:00 [facility] Influenza High Dose 2015-03-20 Completed Unive rsity of 00:00:00 [facility] TDAP 2015-03-20 Completed University of 00:00:00 [facility] Influenza High Dose 2015-03-20 Completed Unive rsity of 00:00:00 [facility] TDAP 2015-03-20 Completed University of 00:00:00 [facility] Influenza High Dose 2015-03-20 Completed Unive rsity of 00:00:00 [facility] TDAP 2015-03-20 Completed University of 00:00:00 [facility] Influenza High Dose 2015-03-20 Completed Unive rsity of 00:00:00 [facility] TDAP 2015-03-20 Completed University of 00:00:00 [facility] Influenza High Dose 2015-03-20 Completed Unive rsity of 00:00:00 [facility] TDAP 2015-03-20 Completed University of 00:00:00 [facility] Influenza High Dose 2015-03-20 Completed Unive rsity of 00:00:00 [facility] TDAP 2015-03-20 Completed University of 00:00:00 [facility] Influenza High Dose 2015-03-20 Completed Unive rsity of 00:00:00 [facility] TDAP 2015-03-20 Completed University of 00:00:00 [facility] Influenza High Dose 2015-03-20 Completed Unive rsity of 00:00:00 [facility] TDAP 2015-03-20 Completed University of 00:00:00 [facility] Influenza High Dose 2015-03-20 Completed Unive rsity of 00:00:00 [facility] TDAP 2015-03-20 Completed University of 00:00:00 [facility] Influenza High Dose 2015-03-20 Completed Unive rsity of 00:00:00 [facility] TDAP 2015-03-20 Completed University of 00:00:00 [facility] Influenza High Dose 2015-03-20 Completed Unive rsity of 00:00:00 [facility] TDAP 2015-03-20 Completed University of 00:00:00 [facility] Influenza High Dose 2015-03-20 Completed Unive rsity of 00:00:00 [facility] TDAP 2015-03-20 Completed University of 00:00:00 [facility] Influenza High Dose 2015-03-20 Completed Unive rsity of 00:00:00 [facility] TDAP 2015-03-20 Completed University of 00:00:00 [facility] Influenza High Dose 2015-03-20 Completed Unive rsity of 00:00:00 [facility] TDAP 2015-03-20 Completed University of 00:00:00 [facility] Influenza High Dose 2015-03-20 Completed Unive rsity of 00:00:00 [facility] TDAP 2015-03-20 Completed University of 00:00:00 [facility] Influenza High Dose 2015-03-20 Completed Unive rsity of 00:00:00 [facility] TDAP 2015-03-20 Completed University of 00:00:00 [facility] Influenza High Dose 2015-03-20 Completed Unive rsity of 00:00:00 [facility] TDAP 2015-03-20 Completed University of 00:00:00 [facility] Influenza High Dose 2015-03-20 Completed Unive rsity of 00:00:00 [facility] TDAP 2015-03-20 Completed University of 00:00:00 [facility] Pneumococcal 13 2014-08-01 Completed Universit y of [...] Universit y of Conjugate, PCV13 00:00:00 [place] [facility] (Prevnar 13) [facility] Pneumococcal 13 2014-08-01 Completed Universit y of Conjugate, PCV13 00:00:00 [place] [facility] (Prevnar 13) [facility] Influenza High Dose 2013-11-29 Completed Unive rsity of 00:00:00 [facility] Influenza High Dose 2013-11-29 Completed Unive rsity of 00:00:00 [facility] Influenza High Dose 2013-11-29 Completed Unive rsity of 00:00:00 [facility] Influenza High Dose 2013-11-29 Completed Unive rsity of 00:00:00 [facility] Influenza High Dose 2013-11-29 Completed Unive rsity of 00:00:00 [facility] Influenza High Dose 2013-11-29 Completed Unive rsity of 00:00:00 [facility] Influenza High Dose 2013-11-29 Completed Unive rsity of 00:00:00 [facility] Influenza High Dose 2013-11-29 Completed Unive rsity of 00:00:00 [facility] Influenza High Dose 2013-11-29 Completed Unive rsity of 00:00:00 [facility] Influenza High Dose 2013-11-29 Completed Unive rsity of 00:00:00 [facility] Influenza High Dose 2013-11-29 Completed Unive rsity of 00:00:00 [facility] Influenza High Dose 2013-11-29 Completed Unive rsity of 00:00:00 [facility] Influenza High Dose 2013-11-29 Completed Unive rsity of 00:00:00 [facility] Influenza High Dose 2013-11-29 Completed Unive rsity of 00:00:00 [facility] Influenza High Dose 2013-11-29 Completed Unive rsity of 00:00:00 [facility] Influenza High Dose 2013-11-29 Completed Unive rsity of 00:00:00 [facility] Influenza High Dose 2013-11-29 Completed Unive rsity of 00:00:00 [facility] Influenza High Dose 2013-11-29 Completed Unive rsity of 00:00:00 [facility] Influenza High Dose 2013-11-29 Completed Unive rsity of 00:00:00 [facility] Influenza High Dose 2013-04-07 Completed Unive rsity of 00:00:00 [facility] Influenza High Dose 2013-04-07 Completed Unive rsity of 00:00:00 [facility] Influenza High Dose 2013-04-07 Completed Unive rsity of 00:00:00 [facility] Influenza High Dose 2013-04-07 Completed Unive rsity of 00:00:00 [facility] Influenza High Dose 2013-04-07 Completed Unive rsity of 00:00:00 [facility] Influenza High Dose 2013-04-07 Completed Unive rsity of 00:00:00 [facility] Influenza High Dose 2013-04-07 Completed Unive rsity of 00:00:00 [facility] Influenza High Dose 2013-04-07 Completed Unive rsity of 00:00:00 [facility] Influenza High Dose 2013-04-07 Completed Unive rsity of 00:00:00 [facility] Influenza High Dose 2013-04-07 Completed Unive rsity of 00:00:00 [facility] Influenza High Dose 2013-04-07 Completed Unive rsity of 00:00:00 [facility] Influenza High Dose 2013-04-07 Completed Unive rsity of 00:00:00 [facility] Influenza High Dose 2013-04-07 Completed Unive rsity of 00:00:00 [facility] Influenza High Dose 2013-04-07 Completed Unive rsity of 00:00:00 [facility] Influenza High Dose 2013-04-07 Completed Unive rsity of 00:00:00 [facility] Influenza High Dose 2013-04-07 Completed Unive rsity of 00:00:00 [facility] Influenza High Dose 2013-04-07 Completed Unive rsity of 00:00:00 [facility] Influenza High Dose 2013-04-07 Completed Unive rsity of 00:00:00 [facility] Influenza High Dose 2013-04-07 Completed Unive rsity of 00:00:00 [facility] Influenza Virus 2009-12-24 Completed Universit y of Vaccine 00:00:00 [facility] Influenza Virus 2009-12-24 Completed Universit y of Vaccine 00:00:00 [facility] Influenza Virus 2009-12-24 Completed Universit y of Vaccine 00:00:00 [facility] Influenza Virus 2009-12-24 Completed Universit y of Vaccine 00:00:00 [facility] Influenza Virus 2009-12-24 Completed Universit y of Vaccine 00:00:00 [facility] Influenza Virus 2009-12-24 Completed Universit y of Vaccine 00:00:00 [facility] Influenza Virus 2009-12-24 Completed Universit y of Vaccine 00:00:00 [facility] Influenza Virus 2009-12-24 Completed Universit y of Vaccine 00:00:00 [facility] Influenza Virus 2009-12-24 Completed Universit y of Vaccine 00:00:00 [facility] Influenza Virus 2009-12-24 Completed Universit y of Vaccine 00:00:00 [facility] Influenza Virus 2009-12-24 Completed Universit y of Vaccine 00:00:00 [facility] Influenza Virus 2009-12-24 Completed Universit y of Vaccine 00:00:00 [facility] Influenza Virus 2009-12-24 Completed Universit y of Vaccine 00:00:00 [facility] Influenza Virus 2009-12-24 Completed Universit y of Vaccine 00:00:00 [facility] Influenza Virus 2009-12-24 Completed Universit y of Vaccine 00:00:00 [facility] Influenza Virus 2009-12-24 Completed Universit y of Vaccine 00:00:00 [facility] Influenza Virus 2009-12-24 Completed Universit y of Vaccine 00:00:00 [facility] Influenza Virus 2009-12-24 Completed Universit y of Vaccine 00:00:00 [facility] Influenza Virus 2009-12-24 Completed Universit y of Vaccine 00:00:00 [facility] Pneumococcal 2008-06-23 Completed University o f Polysaccharide, 00:00:00 [place] [facility] PPSV23 (PNEUMOVAX) Branch Pneumococcal 2008-06-23 [...] 00:00:00 [place] [facility] PPSV23 (PNEUMOVAX) Branch Vital Signs Vital Name Observation Time Observation Value Comments Source Systolic blood 2021-11-08 19:31:00 166 mm[Hg] Univer sity of pressure [facility] Diastolic blood 2021-11-08 19:31:00 83 mm[Hg] Unive rsity of pressure [facility] Heart rate 2021-11-08 19:31:00 71 /min [facility] Body temperature 2021-11-08 19:30:00 36.67 Fabienne [facility] 2021-11-08 19:30:00 18 /min [facility] Body height 2021-11-08 19:30:00 175.3 cm [facility] Body weight 2021-11-08 19:30:00 154.223 kg [facility] BMI 2021-11-08 19:30:00 50.21 kg/m2 [facility] Procedures This patient has no known procedures. Encounters Start End Encounter Admission Attending Care Care Encounter Source Date/Time Date/Time Type Type Clinicians Facility Department ID 2020-12-21 Emergency [facility] [id number] [facility] 21:28:42 ity [facility] 2022-03-14 2022-03-14 Outpatient Kecia MUSTAFA [facility] [id number] Univers 16:00:00 16:00:00 , ESPERANZA it y of [facility] 2022-02-25 2022-02-25 Refill Pooja Lord 1.2.840.114 [id number] Univers 00:00:00 00:00:00 Ali PEDIATRIC 350.1.13.10 [place] [id number] [address] 2022-01-31 2022-01-31 Refill Ramsey WEST 1.2.840.114 [id number] Univers 00:00:00 00:00:00 , [place] PEDIATRIC 350.1.13.10 [place] [id number] [address] 2022-01-25 2022-01-25 Refmoses WEST 1.2.840.114 [id number] Univers 00:00:00 00:00:00 , [place] PEDIATRIC 350.1.13.10 [place] [id number] [address] 2022-01-25 2022-01-25 Refill [place] BRETT 1.2.840.114 [id number] Univers 00:00:00 00:00:00 , [place] PEDIATRIC 350.1.13.10 [place] [id number] [address] 2022-01-25 2022-01-25 Refill Ramsey BRETT 1.2.840.114 [id number] Univers 00:00:00 00:00:00 , [place] PEDIATRIC 350.1.13.10 [place] [id number] [address] 2022-01-25 2022-01-25 Refill Ramsey BRETT 1.2.840.114 [id number] Univers 00:00:00 00:00:00 , [place] PEDIATRIC 350.1.13.10 it[place] [id number] [address] 2022-01-25 2022-01-25 Refill [place] BRETT 1.2.840.114 [id number] Univers 00:00:00 00:00:00 , [place] PEDIATRIC 350.1.13.10 it[place] [id number] [address] 2022-01-25 2022-01-25 Refill Ramsey BRETT 1.2.840.114 [id number] Univers 00:00:00 00:00:00 , [place] PEDIATRIC 350.1.13.10 ity [place] [id number] [address] 2022-01-25 2022-01-25 Refill [place] BRETT 1.2.840.114 [id number] Univers 00:00:00 00:00:00 , [place] PEDIATRIC 350.1.13.10 it[place] [id number] [address] 2022-01-25 2022-01-25 Refill Ramsey HYDEIN 1.2.840.114 [id number] Univers 00:00:00 00:00:00 , [place] PEDIATRIC 350.1.13.10 ity [place] [id number] [address] 2022-01-25 2022-01-25 Refill Ramsey HYDEIN 1.2.840.114 [id number] Univers 00:00:00 00:00:00 , [place] PEDIATRIC 350.1.13.10 it[place] [id number] [address] 2022-01-09 2022-01-09 Refill Ramsey [facility]ST 1.2.840.114 [id number] Univers 00:00:00 00:00:00 , [place] PEDIATRIC 350.1.13.10 ity [place] [id number] [address] 2022-01-09 2022-01-09 Refill Ramsey HYDEIN 1.2.840.114 [id number] Univers 00:00:00 00:00:00 , [place] PEDIATRIC 350.1.13.10 [place] [id number] [address] 2021-12-20 2021-12-20 Refill Pooja Lord 1.2.840.114 [id number] Univers 00:00:00 00:00:00 Ali PEDIATRIC 350.1.13.10 [place] [id number] [address] 2021-12-13 2021-12-13 Outpatient Kecia MUSTAFA [facility] [id number] Univers 15:15:00 15:15:00 , ESPERANZA buck y of [facility] 2021-11-13 2021-11-13 Refill [facility] 1.2.840.114 [id number] Univers 00:00:00 00:00:00 , [place] PEDIATRIC 350.1.13.10 it[place] [id number] [address] 2021-11-13 2021-11-13 Refill [place] [facility] 1.2.840.114 [id number] Univers 00:00:00 00:00:00 , [place] PEDIATRIC 350.1.13.10 it[place] [id number] [address] 2021-11-13 2021-11-13 Refill Pooja Lord 1.2.840.114 [id number] Univers 00:00:00 00:00:00 Ali PEDIATRIC 350.1.13.10 [place] [id number] [address] 2021-11-08 2021-11-08 Outpatient R RAMSEY [facility] [id number] Univers 15:00:00 15:27:00 , ESPERANZA floyd [facility] 2021-11-08 2021-11-08 Office Ramsey [place] 1.2.840.114 [id number] Univers 15:00:00 15:27:00 Visit , [place] PEDIATRIC 350.1.13.10 [place] [id number] [address] 2021-10-06 2021-10-06 Refill Gilmar Mccauley 1.2.840.114 [id number] Univers 00:00:00 00:00:00 Y PEDIATRIC 350.1.13.10 [place] [id number] [address] 2021-09-27 2021-09-27 Outpatient R RAMSEY [facility] [id number] Univers 16:15:00 16:15:00 , ESPERANZA floyd [facility] 2021-09-13 2021-09-13 Refill [place] 1.2.840.114 [id number] Univers 00:00:00 00:00:00 , [place] PEDIATRIC 350.1.13.10 it[place] [id number] [address] 2021-09-10 2021-09-10 Refill Gilmar Mccauley 1.2.840.114 [id number] Univers 00:00:00 00:00:00 Y PEDIATRIC 350.1.13.10 [place] [id number] [address] 2021-09-05 2021-09-05 Orders Doctor CASTANEDA 1.2.840.114 [id number] Univers 00:00:00 00:00:00 Only Unassigned, LOVE 350.1.13.10 ity of [facility] 4.2.7.2.686 Stephen as [id number] [address] 2021-08-30 2021-08-30 Outpatient R RAMSEY [facility] [id number] Univers 16:15:00 16:15:00 , ESPERANZA heber [facility] 2021-08-30 2021-08-30 Telephone Ramsey [place] 1.2.840.114 [id number] Univers 00:00:00 00:00:00 , [place] PEDIATRIC 350.1.13.10 it[place] [id number] [address] 2021-08-24 2021-08-24 Refill Ramsey [facility] 1.2.840.114 [id number] Univers 00:00:00 00:00:00 , [place] PEDIATRIC 350.1.13.10 ity [place] [id number] [address] 2021-08-21 2021-08-21 Orders Doctor CASTANEDA 1.2.840.114 [id number] Univers 00:00:00 00:00:00 Only Unassigned, LOVE 350.1.13.10 ity of [facility] 4.2.7.2.686 [place] as [id number] [address] 2021-08-20 2021-08-20 Telephone [place] BRETT 1.2.840.114 [id number] Univers 00:00:00 00:00:00 , [place] PEDIATRIC 350.1.13.10 it[place] [id number] [address] 2021-08-19 2021-08-19 Telephone [place] BRETT 1.2.840.114 [id number] Univers 00:00:00 00:00:00 , [place] PEDIATRIC 350.1.13.10 ity [place] [id number] [address] 2021-08-13 2021-08-13 Refill Ramsey [facility]ST 1.2.840.114 [id number] Univers 00:00:00 00:00:00 , [place] PEDIATRIC 350.1.13.10 it[place] [id number] [address] 2021-08-07 2021-08-07 Outpatient R RAMSEY [facility] [id number] Univers 15:15:00 15:15:00 , ESPERANZA it y [facility] 2021-07-31 2021-07-31 Outpatient R STEPHANIE, [facility] [id number] Univers 15:45:00 15:45:00 NIA mendiola [facility] 2021-07-29 2021-07-29 Telephone [place] 1.2.840.114 [id number] Univers 00:00:00 00:00:00 , [place] PEDIATRIC 350.1.13.10 [place] [id number] [address] 2021-07-24 2021-07-24 [id number] Univers 14:00:00 14:00:00 , ESPERANZA buck y [facility] 2021-07-17 2021-07-17 Outpatient R RAMSEY [facility] [id number] [facility] 14:00:00 14:44:14 , ESPERANZA buck y [facility] 2021-07-17 2021-07-17 Office Ramsey BRETT 1.2.840.114 [id number] [facility] 14:00:00 14:44:14 Visit , [place] PEDIATRIC 350.1.13.10 it[place] [id number] [address] 2021-07-12 2021-07-12 Outpatient R RAMSEY [facility] [id number] [facility] 15:45:00 15:45:00 , ESPERANZA buck y [facility] 2021-06-26 2021-06-26 Refill [place] BRETT 1.2.840.114 [id number] Univers 00:00:00 00:00:00 , [place] PEDIATRIC 350.1.13.10 [place] [id number] [address] 2021-06-20 2021-06-20 Telephone [place] BRETT 1.2.840.114 [id number] Univers 00:00:00 00:00:00 , [place] PEDIATRIC 350.1.13.10 ity [place] [id number] [address] 2021-06-14 2021-06-14 Refill [place] BRETT 1.2.840.114 [id number] Univers 00:00:00 00:00:00 , [place] PEDIATRIC 350.1.13.10 ity [place] [id number] [address] 2021-06-14 2021-06-14 Refill [place] BRETT 1.2.840.114 [id number] Univers 00:00:00 00:00:00 , [place] PEDIATRIC 350.1.13.10 ity [place] [id number] [address] 2021-04-25 2021-04-25 Refill [place] 1.2.840.114 [id number] Univers 00:00:00 00:00:00 , [place] PEDIATRIC 350.1.13.10 ity [place] [id number] [address] 2021-03-22 2021-03-22 Telephone [place] 1.2.840.114 [id number] Univers 00:00:00 00:00:00 , [place] PEDIATRIC 350.1.13.10 ity [place] [id number] [address] 2021-03-20 2021-03-20 Telephone [place] 1.2.840.114 [id number] Univers 00:00:00 00:00:00 , [place] PEDIATRIC 350.1.13.10 it[place] [id number] [address] 2021-03-05 2021-03-05 Patient BRETT Knapp 1.2.464.208 [id number] Univers 00:00:00 00:00:00 Secure Msg Reagansey PEDIATRIC 350.1.13.10 [place] [id number] [address] 2021-02-19 2021-02-19 Telephone [place] 1.2.840.114 [id number] Univers 00:00:00 00:00:00 , [place] PEDIATRIC 350.1.13.10 ity [place] [id number] [address] 2021-02-06 2021-02-06 Refill REY Hector 1.2.840.114 [id number] Univers 00:00:00 00:00:00 Olena Amaya PRIMARY 350.1.13.10 it[place] [id number] [address] 2021-02-06 2021-02-06 Telephone [place] 1.2.840.114 [id number] Univers 00:00:00 00:00:00 , [place] PEDIATRIC 350.1.13.10 ity [place] [id number] [address] 2021-02-01 2021-02-01 Outpatient R RAMSEY [facility] [id number] Univers 15:45:00 15:45:00 , ESPERANZA buck y of [facility] 2021-01-31 2021-01-31 Refill [place] 1.2.840.114 [id number] Univers 00:00:00 00:00:00 , [place] PEDIATRIC 350.1.13.10 it[place] [id number] [address] 2021-01-29 2021-01-29 Refill Ramsey HYDEIN 1.2.840.114 [id number] Univers 00:00:00 00:00:00 , [place] PEDIATRIC 350.1.13.10 it[place] [id number] [address] 2021-01-28 2021-01-28 Refill Ramsey HYDEIN 1.2.840.114 [id number] Univers 00:00:00 00:00:00 , [place] PEDIATRIC 350.1.13.10 ity [place] [id number] [address] 2021-01-26 2021-01-26 Refill Carlos, [facility] [id number] [id number] Univers 00:00:00 00:00:00 Olena Amaya Y HEALTH 350.1.13.10 ity of [place] [id number] [place] [id number] [place] 2021-01-25 2021-01-25 Refill Ramsey [place]ST 1.2.840.114 [id number] Univers 00:00:00 00:00:00 , [place] PEDIATRIC 350.1.13.10 [place] [id number] [address] 2020-12-11 2020-12-11 [facility] [id number] Univers 15:00:00 15:00:00 WILDER [facility] 2020-11-28 2020-11-28 [facility] [id number] Univers 14:00:00 14:00:00 KYLEIGH [facility] 2020-11-26 2020-11-26 [facility] [id number] Univers 14:00:00 14:00:00 DOUGLAS [facility] 2020-11-22 2020-11-[address] [facility] 1.2.840.114 [id number] Univers 13:15:00 13:30:00 Visit Aquiles Keila 350.1.13.10 [facility] [place] [id number] [address] 2020-11-22 2020-11-22 [facility] [id number] Univers 13:15:00 13:15:00 AQUILES [facility] 2020-11-22 2020-11-22 Telephone [place] 1.2.840.114 [id number] Univers 00:00:00 00:00:00 , [place] Pediatric 350.1.13.10 it[place] [id number] [address] 2020-11-22 2020-11-22 Telephone [place] 1.2.840.114 [id number] Univers 00:00:00 00:00:00 , [place] Pediatric 350.1.13.10 ity [place] [id number] [address] 2020-11-21 2020-11-21 Office [place] 1.2.840.114 [id number] [facility] 15:19:28 15:49:28 Visit , [facility] 350.1.13.10 it[place] [id number] [address] 2020-11-21 2020-11-21 Outpatient R RAMSEY [facility] [id number] [facility] 15:45:00 15:45:00 , ESPERANZA it y of [facility] 2020-11-12 2020-11-12 Outpatient R KELSI [facility] [id number] [facility] 14:30:00 14:30:00 BILAL ity of [facility] 2020-11-12 2020-11-12 Patient Brett Ray 1.2.840.114 [id number] [facility] 00:00:00 00:00:00 Outreach [facility] 350.1.13.10 ity [place] [id number] [address] 2020-11-12 2020-11-12 Patient Brett Ray 1.2.840.114 [id number] [facility] 00:00:00 00:00:00 [facility]reach [facility] 350.1.13.10 it[place] [phone] [address] 2020-11-12 2020-11-12 Patient Brett Ray 1.2.840.114 [id number] Univers 00:00:00 00:00:00 Outreach Bonita L Pediatric 350.1.13.10 [place] [id number] [address] 2020-11-08 2020-11-08 Patient [place] [id number] Univers 00:00:00 00:00:00 Outreach , [facility] 350.1.13.10 ity [place] [id number] [address] 2020-11-07 2020-11-07 Imm/Inj Vaccine, Brett Dash Brett 1.2. 840.114 [id number] Univers 16:00:44 16:10:44 Visit [facility] Mustafa [facility] 350 .1.13.10 it[place] [id number] [address] 2020-11-07 2020-11-07 Office [place] 1.2.840.114 [id number] Univers 14:35:43 16:09:41 Visit , [facility] 350.1.13.10 ity of M [place] [id number] [address] 2020-11-07 2020-11-07 Office [place] 1.2.840.114 [id number] Univers 14:35:43 16:09:41 Visit , [facility] 350.1.13.10 ity [place] [id number] [address] 2020-11-07 2020-11-07 Outpatient R RAMSEY [facility] [id number] Univers 15:15:00 15:15:00 , ESPERANZA floyd of [facility] 2020-11-07 2020-11-07 Orders Ramsey CASTANEDA 1.2.840.114 [id number] Univers 00:00:00 00:00:00 Only , [place] ALEMAN 350.1.13.10 ity of HOSPITAL 4.2.7.2.686 Stephen as [id number] [address] 2020-10-31 2020-10-31 Outpatient R DEANNE [facility] [id number] Univers 16:00:00 16:00:00 KT mendiola [facility] 2020-10-25 2020-10-25 Refill Dac, [facility] 1.2.840.114 [id number] Univers 00:00:00 00:00:00 Olena Amaya PRIMARY 350.1.13.10 it[place] of [place] [id number] Mi dical [address] 2020-10-22 2020-10-22 Refill [place], [facility] [id number] Univers 00:00:00 00:00:00 Olena Floyd HEALTH 350.1.13.10 ity of [place] [id number] [address] 2020-10-11 2020-10-11 [facility] [id number] Univers 13:00:00 13:00:00 DELROY mendiola [facility] 2020-10-01 2020-10-01 Outpatient Kecia PAREDES [facility] [id number] Univers 19:00:00 19:00:00 DIONNA ity o f [facility] 2020-06-16 2020-06-16 [facility] 1.2.840.114 [id number] 00:00:00 00:00:00 Olena Amaya PRIMARY 350.1.13.10 CARE 4.2.7.2.686 PAVILLION [id number] 390 2020-06-13 2020-06-13 Refill [place], [facility] [id number] 00:00:00 00:00:00 Olena Floyd HEALTH 350.1.13.10 CLINICS 4.2.7.2.686 [id number] 2020-06-12 2020-06-12 Refill [place], [facility] 1.2.392.362 [id number] 00:00:00 00:00:00 Olena Floyd HEALTH 350.1.13.10 CLINICS 4.2.7.2.686 [id number] 2020-06-03 2020-06-03 Refill [place], UNIVERS 1.2.923.518 [id number] 00:00:00 00:00:00 Olena Amaya [facility] 350.1.13.10 [facility] 4.2.7.2.686 [id number] 2020-05-11 2020-05-11 Refill [facility] 1.2.840.114 [id number] 00:00:00 00:00:00 Olena Amaya PRIMARY 350.1.13.10 CARE 4.2.7.2.686 PAVILLION [id number] 390 2020-04-19 2020-04-19 [facility] [id number] Univers 15:30:00 15:30:00 [facility] 2020-04-13 2020-04-13 [facility] [id number] Univers 15:40:00 15:40:00 [facility] 2020-04-10 2020-04-10 Refill [facility] 1.2.840.114 [id number] 00:00:00 00:00:00 Olena M PRIMARY 350.1.13.10 [facility] 4.2.7.2.686 PAVILLION [id number] 390 2020-03-28 2020-03-28 [facility] 1.2.840.114 [id number] 00:00:00 00:00:00 Olena M PRIMARY 350.1.13.10 CARE 4.2.7.2.686 PAVILLION [id number] 390 2020-03-27 2020-03-27 Refill [facility] 1.2.840.114 [id number] 00:00:00 00:00:00 Olena M PRIMARY 350.1.13.10 CARE 4.2.7.2.686 PAVILLION [id number] 390 2020-03-25 2020-03-25 [facility] 1.2.840.114 [id number] 00:00:00 00:00:00 Aquiles Pedraza 350.1.13.10 [place] 4.2.7.2.686 Professio [id number] nal [address] 2020-03-21 2020-03-21 Outpatient R LELA [facility] [id number] Univers 15:30:00 15:30:00 KIMBER mendiola [facility] 2019-10-18 2019-10-18 Outpatient R TAWNY [facility] [id number] Univers 09:15:00 09:15:00 OLENA mendiola [facility] 2019-06-07 2019-06-07 Outpatient R TAWNY [facility] [id number] Univers 11:15:00 11:15:00 OLENA mendiola [facility] 2019-05-27 2019-05-29 Outpatient X BEBA [facility] [id number] Univers 14:59:30 14:00:00 BALJITKEAGAN mendiola [facility] 2019-05-27 2019-05-27 [facility] [id number] Univers 09:30:00 09:30:00 [facility] 2019-05-20 2019-05-20 Outpatient R SHIRA [facility] [id number] Univers 09:00:00 10:44:50 AQUILES ity [facility] 2019-05-20 2019-05-20 Outpatient R SHIRA [facility] [id number] Univers 09:00:00 09:00:00 [facility]-04-[facility] 2019-04-22 Outpatient R SHIRA [facility] [id number] Univers 16:15:00 16:15:00 AQUILES ity [facility] 2019-04-22 2019-04-22 Outpatient R PETR [facility] [id number] Univers 15:00:00 15:00:00 [facility] 2019-04-15 2019-04-15 [facility] [id number] Univers 13:30:00 13:55:57 [facility] This patient has no known results.
[2022-03-12 21:53] LABS: MPV 8.8 fL (7.6-11.3)
[2022-03-12 21:58] LABS: Hematocrit 44.9 % (39.6-49.0); Lymphocytes % 26.4 % (15.3-44.8)
[2022-03-12 22:15] LABS: Albumin 3.3 g/dL (3.4-5.0); Bilirubin Direct 0.1 mg/dL (0-0.2); Bilirubin Total 0.3 mg/dL (0.2-1.0); Potassium 4.7 mmol/L (3.5-5.1); Protein, Total 7.4 g/dL (6.4-8.2); Troponin High Sensitivity 8.9 pg/mL (<58.9)
--- NOTE | 2022-03-12 22:26 | RAD REPORT ---
EXAM DESCRIPTION: Alida Single View03/12/2022 10:18 pm CLINICAL HISTORY: Chest pain COMPARISON: 2021 FINDINGS: Lungs appear grossly clear. Heart is borderline enlarged
--- NOTE | 2022-03-12 22:28 | EDPHYS ---
Physician Documentation [facility] Name: Erika Sharif Age: 81 yrs Sex: Male : 1940 Arrival Date: 03/12/2022 Time: 21:06 Bed 7 Private MD: ED Physician Vini Crump HPI: 03/12 22:20 This 81 yrs old Male presents to ER via Wheelchair with complaints of Chest eulalio Pain. 22:20 The patient or guardian reports chest pain that is located primarily in the substernal eulalio area. Onset: just prior to arrival, today. The pain does not radiate. Associated signs and symptoms: The patient has no apparent associated signs or symptoms. The chest pain is described as a pressure, squeezing. Duration: The patient or guardian reports multiple episodes, with no pattern. Severity of pain: At its worst the pain was mild moderate in the emergency department the pain is unchanged. The patient has not experienced similar symptoms in the past. Historical: - Allergies: 21:22 zolpidem; kd3 - PMHx: 21:22 Diabetes - IDDM; Gout; CHF; kidney failure; COPD; Myocardial infarction; neuropathy; kd3 pleural effusion; - PSHx: 21:22 arm; back; Cholecystectomy; kd3 - Immunization history:: Adult Immunizations up to date. - Social history:: Smoking status: Patient denies any tobacco usage or history of. - Family history:: not pertinent. ROS: 22:20 Constitutional: Negative for fever, chills, and weight loss, Eyes: Negative for injury, eulalio pain, redness, and discharge, ENT: Negative for injury, pain, and discharge, Neck: Negative for injury, pain, and swelling, Respiratory: Negative for shortness of breath, cough, wheezing, and pleuritic chest pain, Abdomen/GI: Negative for abdominal pain, nausea, vomiting, diarrhea, and constipation, Back: Negative for injury and pain, : Negative for injury, bleeding, discharge, and swelling, MS/Extremity: Negative for injury and deformity, Skin: Negative for injury, rash, and discoloration, Neuro: Negative for headache, weakness, numbness, tingling, and seizure, Psych: Negative for depression, anxiety, suicide ideation, homicidal ideation, and hallucinations, Allergy/Immunology: Negative for hives, rash, and allergies, Endocrine: Negative for neck swelling, polydipsia, polyuria, polyphagia, and marked weight changes, Hematologic/Lymphatic: Negative for swollen nodes, abnormal bleeding, and unusual bruising. 22:20 Cardiovascular: Positive for chest pain, of the chest. Exam: 22:20 Constitutional: This is a well developed, well nourished patient who is awake, alert, eulalio and in no acute distress. Head/Face: Normocephalic, atraumatic. Eyes: Pupils equal round and reactive to light, extra-ocular motions intact. Lids and lashes normal. Conjunctiva and sclera are non-icteric and not injected. Cornea within normal limits. Periorbital areas with no swelling, redness, or edema. ENT: Nares patent. No nasal discharge, no septal abnormalities noted. Tympanic membranes are normal and external auditory canals are clear. Oropharynx with no redness, swelling, or masses, exudates, or evidence of obstruction, uvula midline. Mucous membranes moist. Neck: Trachea midline, no thyromegaly or masses palpated, and no cervical lymphadenopathy. Supple, full range of motion without nuchal rigidity, or vertebral point tenderness. No Meningismus. Chest/axilla: Normal chest wall appearance and motion. Nontender with no deformity. No lesions are appreciated. Cardiovascular: Regular rate and rhythm with a normal S1 and S2. No gallops, murmurs, or rubs. Normal PMI, no JVD. No pulse deficits. Respiratory: Lungs have equal breath sounds bilaterally, clear to auscultation and percussion. No rales, rhonchi or wheezes noted. No increased work of breathing, no retractions or nasal flaring. Back: No spinal tenderness. No costovertebral tenderness. Full range of motion. Male : Normal genitalia with no discharge or lesions. Skin: Warm, dry with normal turgor. Normal color with no rashes, no lesions, and no evidence of cellulitis. MS/ Extremity: Pulses equal, no cyanosis. Neurovascular intact. Full, normal range of motion. Neuro: Awake and alert, GCS 15, oriented to person, place, time, and situation. Cranial nerves II-XII grossly intact. Motor strength 5/5 in all extremities. Sensory grossly intact. Cerebellar exam normal. Normal gait. Psych: Awake, alert, with orientation to person, place and time. Behavior, mood, and affect are within normal limits. 22:20 Abdomen/GI: Inspection: distension, Bowel sounds: normal, in the right upper quadrant, left upper quadrant, right lower quadrant and left lower quadrant, active, all quadrants, Liver: no appreciated palpable abnormalities, Hernia: not appreciated. Vital Signs: 21:20 BP 125 / 66; Pulse 76; Resp 19; Temp 98(O); Pulse Ox 96% ; Weight 151.95 kg; Height 5 kd3 ft. 9 in. (175.26 cm); Pain 9/10; 21:20 Body Mass Index 49.47 (151.95 kg, 175.26 cm) kd3 Angel Coma Score: 22:20 Eye Response: spontaneous(4). Verbal Response: oriented(5). Motor Response: obeys eulalio commands(6). Total: 15. MDM: 21:56 Patient medically screened. eulalio 22:24 HEART Score: History: Moderately Suspicious (1), ECG: Non specific repolarization eulalio disturbance / LBTB / PM (1), Age: > or = 65 years (2), Risk Factors: > or = 3 Risk factors for atherosclerotic disease (2), [Hypercholesterolemia] [Hypertension] [DM] [+ Family HX] [Obesity] Troponin: < or = 1 x Normal Limit (0). The patient was given aspirin in the Emergency Department. JONH Risk Score: 1 - patient's age is greater or equal to 65 years, 1 - Three or more CAD risk factors, 1- Known CAD, 1 - Recent [<24hrs] Severe Angina, TOTAL SCORE = 5. Data reviewed: vital signs, nurses notes, lab test result(s), CBC, electrolytes, hepatic panel, urinalysis, EKG, radiologic studies, CT scan, plain films. Consideration of Admission/Observation Patient was admitted/placed on observation. Escalation of care including admission/observation considered. Management of patient was discussed with the following: Hospitalist: OLIVIA CÁRDENAS. Test considered but Not performed: Other Details ECHO NA. 03/12 21:36 Order name: Basic Metabolic Panel; Complete Time: 22:19 ll3 03/12 21:36 Order name: CBC with Diff; Complete Time: 22:19 ll3 03/12 21:36 Order name: Troponin HS; Complete Time: 22:19 ll3 03/12 21:36 Order name: XRAY Chest (1 view); Complete Time: 22:43 3 03/12 21:57 Order name: SARS RAPID; Complete Time: 23:48 [facility] 03/12 22:04 Order name: Liver (Hepatic) Function; Complete Time: 22:19 EDMS 03/12 22:04 Order name: NT PRO-BNP; Complete Time: 22:19 EDMS 03/12 22:04 Order name: Lipase; Complete Time: 22:19 EDMS 03/12 22:19 Order name: CT Traumagram (Head C Spine CAP wo con) [facility] 03/12 21:36 Order name: EKG; Complete Time: 21:37 3 03/12 21:36 Order name: Cardiac monitoring; Complete [facility]: [facility]:38 [facility] 03/12 21:36 Order name: EKG - Nurse/Tech; Complete Time: 21:38 3 03/12 21:36 Order name: IV Saline Lock; Complete Time: 21:38 3 03/12 21:36 Order name: Labs collected and sent; Complete Time: 21:38 3 03/12 21:36 Order name: O2 Per Protocol; Complete Time: 21:38 [facility] 03/12 21:36 Order name: O2 Sat Monitoring; Complete Time: 21:39 ll3 Administered Medications: 22:15 Drug: Aspirin 81 mg Route: PO; ll3 22:50 Drug: morphine 2 mg Route: IVP; Infused Over: 4 mins; Site: right antecubital; ll3 22:50 Drug: Zofran (Ondansetron) 4 mg Route: IVP; Site: right antecubital; ll3 03/13 00:19 Not Given (Duplicate Order): morphine 2 mg IVP once over 4 mins ll3 Disposition Summary: 03/12/22 22:28 Hospitalization Ordered Hospitalization Status: Observation eulalio Provider: Agustin Thompson cha Condition: Fair eulalio Problem: new eulalio Symptoms: have improved eulalio Bed/Room Type: Standard eulalio Location: [facility] ER HOLD(03/12/22 23:15) eb1 Room Assignment: ERHOLD-(03/12/22 23:15) eb1 Diagnosis - Chest pain, unspecified eulalio - Obesity, unspecified eulalio - Fall on same level, unspecified eulalio - Unspecified kidney failure - CHRONIC eulalio Discharge Instructions: - Discharge Summary Sheet kl Forms: - Family Work Release kl - Medication Reconciliation Form eulalio - SBAR form eulalio Signatures: Dispatcher [employer] EDVini Lawrence MD MD cha Attema, Lee, ASSOCIATE RELATIONS SPECIALIST-C ASSOCIATE RELATIONS SPECIALIST-Cla1 Hannah Blood RN RN eb1 Rhea Menjivar, RN RN ll3 Radha Randle RN RN kd3 Corrections: (The following items were deleted from the chart) 03/12 22:04 21:42 HEPATIC FUNCTION+C.LAB.BRZ ordered. EDMS EDMS 22:04 21:42 PROBNP+C.LAB.BRZ ordered. EDMS EDMS 22:04 21:43 LIPASE+C.LAB.BRZ ordered. EDMS EDMS 23:15 22:28 Telemetry/MedSurg (observation) [facility] eb 23:15 22:28 eulalio 1
--- NOTE | 2022-03-12 22:28 | ER ---
Nurse's Notes [facility] Name: Erika Sharif Age: 81 yrs Sex: Male : 1940 Arrival Date: 03/12/2022 Time: 21:06 Bed 7 Private MD: Diagnosis: Chest pain, unspecified;Obesity, unspecified;Fall on same level, unspecified;Unspecified kidney failure-CHRONIC Presentation: 03/12 21:21 Chief complaint: Patient states: Pain in the center of the chest. Started after I ate a kd3 hamburger. I ate about a half an hour ago. Coronavirus screen: Vaccine status: Patient reports receiving the 2nd dose of the covid vaccine. Ebola Screen: No symptoms or risks identified at this time. Initial Sepsis Screen: Does the patient meet any 2 criteria? No. Patient's initial sepsis screen is negative. Does the patient have a suspected source of infection? No. Patient's initial sepsis screen is negative. Risk Assessment: Do you want to hurt yourself or someone else? Patient reports no desire to harm self or others. Onset of symptoms was March 12, 2022. 21:21 Method Of Arrival: Wheelchair kd3 21:21 Acuity: PEEWEE 3 kd3 03/13 00:38 Note pt refusing admission reports will go home and follow up with PCP instructed to kl return if any further concerns. Triage Assessment: 03/12 21:22 General: Appears uncomfortable, Behavior is calm, cooperative. Pain: Complains of pain kd3 in mid-sternal area. Neuro: Level of Consciousness is awake, alert, obeys commands, Oriented to person, place, time, situation. Cardiovascular: Capillary refill < 3 seconds in bilateral fingers Patient's skin is warm and dry. Respiratory: Airway is patent Trachea midline Respiratory effort is even, unlabored, Respiratory pattern is regular, symmetrical. Historical: - Allergies: 21:22 zolpidem; kd3 - PMHx: 21:22 Diabetes - IDDM; Gout; CHF; kidney failure; COPD; Myocardial infarction; neuropathy; kd3 pleural effusion; - PSHx: 21:22 arm; back; Cholecystectomy; kd3 - Immunization history:: Adult Immunizations up to date. - Social history:: Smoking status: Patient denies any tobacco usage or history of. - Family history:: not pertinent. Screenin:39 [facility] ED Fall Risk Assessment (Adult) History of falling in the last 3 months, including since admission No falls in past 3 months (0 pts) Confusion or Disorientation No (0 pts) Intoxicated or Sedated No (0 pts) Impaired Gait Yes (1 pt) Mobility Assist Device Used No (0 pt) Altered Elimination No (0 pt) Score/Fall Risk Level 0 - 2 = Low Risk Oriented to surroundings, Maintained a safe environment, Educated pt \T\ family on fall prevention, incl call for assistance when getting out of bed. Abuse screen: Denies threats or abuse. Nutritional screening: No deficits noted. Tuberculosis screening: No symptoms or risk factors identified. Assessment: 21:37 General: Appears uncomfortable, obese, unkempt, Behavior is calm, cooperative. Pain: kl Complains of pain in chest and mid-sternal area Pain does not radiate. Pain began 1 hour ago. Neuro: No deficits noted. Cardiovascular: Capillary refill < 3 seconds Clubbing of nail beds is absent Rhythm is sinus rhythm Chest pain is described as diffuse. Respiratory: No deficits noted. GI: No deficits noted. No signs and/or symptoms were reported involving the gastrointestinal system. : No deficits noted. No signs and/or symptoms were reported regarding the genitourinary system. Derm: numerous scratches to lower extremities reports cat scratches. 21:40 Musculoskeletal: Swelling present in right leg and left leg. Vital Signs: 21:20 BP 125 / 66; Pulse 76; Resp 19; Temp 98(O); Pulse Ox 96% ; Weight 151.95 kg; Height 5 kd3 ft. 9 in. (175.26 cm); Pain 9/10; 21:20 Body Mass Index 49.47 (151.95 kg, 175.26 cm) kd3 [place] Coma Score: 22:20 Eye Response: spontaneous(4). Verbal Response: oriented(5). Motor Response: obeys eulalio commands(6). Total: 15. ED Course: 21:06 Patient arrived in ED. ja2 21:22 Triage completed. kd3 21:22 Arm band placed on right wrist. kd3 21:37 Inserted saline lock: 20 gauge in right antecubital area, using aseptic technique. Blood collected. 21:56 Vini Crump MD is Attending Physician. [facility] 22:20 XRAY Chest (1 view) In Process Unspecified. EDMS 22:26 Agustin Thompson MD is Hospitalizing Provider. [facility] 23:24 CT Traumagram (Head C Spine CAP wo con) In Process Unspecified. EDMS Administered Medications: 22:15 Drug: Aspirin 81 mg Route: PO; ll3 22:50 Drug: morphine 2 mg Route: IVP; Infused Over: 4 mins; Site: right antecubital; ll3 22:50 Drug: Zofran (Ondansetron) 4 mg Route: IVP; Site: right antecubital; ll3 03/13 00:19 Not Given (Duplicate Order): morphine 2 mg IVP once over 4 mins ll3 Outcome: 03/12 22:28 Decision to Hospitalize by Provider. [facility] 03/13 00:25 Patient left the ED. kl Signatures: Dispatcher [employer] EDMS Bhumika Levy RN RN Vini Coker MD MD cha Alexander, Jessica ja2 Loubet, Lynsea, RN RN ll3 Radha Randle RN RN kd3
[2022-03-12 22:53] LABS: SARS-CoV-2 Antigen Rapid Res Negative (Negative)
[2022-03-13 01:08] VITALS: BP 125/66; TEMP 98; O2SAT 96
--- NOTE | 2022-03-13 09:24 | RAD REPORT ---
EXAM DESCRIPTION: CT - Head C Spine Cap Wo Con - 03/13/2022 6:10 am CLINICAL HISTORY: 81 years, Male, FALL COMPARISON: 02/08/2021. FINDINGS: Multiple transaxial tomograms of the brain were obtained from the base of the skull to the vertex without contrast. 2-D multiplanar reformats and the coronal and sagittal plane were performed and reviewed. Multiple axial CT images through the cervical spine were obtained at 2 mm slice thickness at 2 mm int erval reconstruction. In addition 2-D multiplanar reformats and the sagittal coronal plane were perfo rmed and reviewed. Multiple transaxial tomograms of the chest, abdomen and pelvis were performed from the lung bases to the symphysis pubis utilizing 5 m slice thickness at 5 mm interval reconstruction, without administra tion of IV and oral contrast. This exam was performed according to our departmental dose-optimization protocol, which includes auto mated exposure control, adjustment of the mA and/or kV according to patient size and/or use of iterat brandon reconstruction technique. CT head: Brain parenchyma demonstrate prominence of the sulci and gyri are corresponding to mild brai n atrophy. There is no midline shift and/or mass effect. There is no evidence for acute hemorrhage. N o focal areas of hypodensities. Lateral ventricles and cisterns displace normal appearance. No in tra or extra axial fluid collections were seen. The calvarium is intact with no evidence for fracture . The visualized portions of the paranasal sinuses and orbits demonstrate to be clear. C-spine: The alignment of the vertebral bodies are normal. There is no evidence of fracture or subl uxation. There is degenerative disc disease with decreased intervertebral disc height, anterior spond ylosis and posterior osteophyte complex at C3/C4, C5/C6, C6/C7 and C7/T1. There is spinal canal narro wing at C6/C7. There are uncovertebral degenerative changes C3/C4, C5/C6, C7/T1. There is no preverte bral soft tissue swelling. Sagittal coronal reformatted images demonstrate no subluxation or bony a bnormalities. Chest: The lungs parenchyma demonstrate minimal dependent atelectatic changes lung bases. No evidence for pneumothorax. No masses and/or nodules are identified. Slight decreased lung volume with mild elevation right hemidiaphragm The trachea mainstem bronchus demonstrate to be normal. There is no significant pleural and/or perica rdial effusions. The thoracic aorta demonstrate intimal aortic arch calcification. The heart is not enlarged. There ar e coronary artery calcifications. There is no significant mediastinal and/or hilar lymphadenopathy. The axillary regions demonstrate to be clear. The bone windows demonstrate mild diffuse bony osteopenia. Normal anterior spondylosis mid/lower thor acic spine no evidence for significant displaced fractures. Abdomen and pelvis: Grossly the unopacified liver, pancreas, spleen and adrenal glands demonstrate to be within normal limits, no significant focal lesions were identified. Surgical clips within the gallbladder fossa correspond to previous cholecystectomy The right kidney is unremarkable. The left kidney is atrophic. There is no evidence for nephrolithi asis and/or hydronephrosis. Grossly the unopacified stomach, small bowel and large bowel demonstrate to be within normal limits. There is no evidence for bowel dilatation/or free air the appendix is unremarkable. Minimal diverticu losis within the sigmoid colon. The urinary bladder demonstrate to be within normal limits. The prostate gland is unremarkable The ao rta demonstrate atherosclerotic disease with small aneurysm chest before the aortic bifurcation measu ring 2.9 x 2.8 cm on axial image 88. There is no retroperitoneal lymphadenopathy. There is no noelle dence for ascites. There is no evidence for retroperitoneal hemorrhage. The bone windows demonstrate mild bony osteopenia. Degenerative disc disease throughout the lumbar sp ine. Questionable small superior plate compression deformity at L1. Sacrum, sacral joint, iliac bones , superior and inferior pubic rami as well as bilateral hip joints demonstrate to be within normal li mits. IMPRESSION: No evidence for acute intracranial hemorrhage, mass effect, or midline shift. Mild brain atrophy. No evidence for acute fracture or subluxation of the cervical spine. Degenerative disc disease at C3/C4, C5/C6, C6/C7 and C7/T1. There is spinal canal narrowing at C6/C7. 2.9 x 2.8 cm infrarenal abdominal aortic aneurysm. Follow-up every 5 years is recommended. Markedly atrophic left kidney. Questionable small superior plate compression deformity at L1. Electronically signed by: Rey Shields MD 03/13/2022 12:01 AM STRATEGIC ADVISOR Due to temporary technical issues with the PACS/Fluency reporting system, reports are being signed by the in house radiologists without review as a courtesy to insure prompt reporting. The interpreting radiologist is fully responsible for the content of the report.
--- NOTE | 2022-03-13 15:31 | EKG ---
Test Date: 2022-03-12 Test Time: 21:35:51 Glass Checker: [place] MEASUREMENT RESULTS: Intervals: Rate: 75 MA: 160 QRSD: 80 QT: 384 QTc: 428 [place]: P: 33 MA: 160 QRS: 7 T: 55 INTERPRETIVE STATEMENTS: Normal sinus rhythm Possible Inferior infarct, age undetermined Abnormal ECG Compared to ECG 03/09/2021 11:53:20 Myocardial infarct finding now present Electronically Signed On 03-13-22 15:30:29 RECYCLING COLLECTIONS DRIVER by Zurdo Garcia
== END ==
LOC: ER 21:04
DX: R07.89 Other chest pain (principal); N18.9 Chronic kidney disease, unspecified; I50.9 Heart failure, unspecified; E66.9 Obesity, unspecified; Z68.42 Body mass index [BMI] 45.0-49.9, adult; I25.2 Old myocardial infarction; J44.9 Chronic obstructive pulmonary disease, unspecified; Z20.822 Contact with and (suspected) exposure to COVID-19; W18.30XA Fall on same level, unspecified, initial encounter; Z88.8 Allergy status to other drugs, medicaments and biological substances
CPT/HCPCS: 85025; 80048; 36415; 80076; 84484; 83690; 83880; 70450; 71250; 72125; 71045; 87811; J2270; J2405; 93005; 96374; 96375; 99284

== ENCOUNTER 2022-09-22 10:33 | Emergency (ER) | payer OTHER ==
--- OUTSIDE RECORDS SUMMARY | 2022-09-22 10:47 | XMS REPORT | Continuity of Care Document ---
:1940 Author Organization [facility] t Address [address] [place] [address] [place] [id number] Care Team Providers Name Role Phone Esperanza Mustafa MD Primary Care Physician [phone] ESPERANZA MUSTAFA Attending Clinician Unavailable Esperanza Mustafa MD Attending Clinician [phone] KEVIN DE LA CRUZ Attending Clinician Unavailable Kevin De La Cruz MD Attending Clinician Tash Rodríguez RN Attending Clinician Unavailable DELROY LEDESMA Attending Clinician Unavailable Pooja Lord PA-C Attending Clinician Gilmar Mccauley MD Attending Clinician Doctor Unassigned, [place] Attending Clinician Unavailable NIA BROWN Attending Clinician [...] Clinician Unavailable KT ALICEA Attending Clinician Unavailable DIONNA PAREDES Attending Clinician Unavailable ABDULAZIZ ROMERO Attending Clinician Unavailable KIMBER VOGEL Attending Clinician Unavailable OLENA HECTOR Attending Clinician Unavailable BALJIT YODER Attending Clinician Unavailable KARLI HUMPHREYS Attending Clinician Unavailable KEVIN DE LA CRUZ Admitting Clinician Unavailable BALJIT YODER Admitting Clinician Unavailable Payers Payer Name Policy Type Policy Number Effective Date Expiration Date S an[place] MEDICARE PART A [id number] 1987 \\T\\ B 00:00:00 Problems Condition Condition Condition Status Onset Resolution Last Treating Co mments Source Name Details Category Date Date Treatment Clinician Date Coronary Coronary Disease Active 2020-0 Unive rs artery artery 4-04 ity of disease disease 00:00: [place] involving involving 00 Medi johnathan [place] Branch coronary coronary artery of artery of [place] heart heart without without angina angina pectoris pectoris Troponin I Troponin I Disease Active 2019-0 U nivers above above 4-04 [place] of [place] 00 [place] COPD COPD Disease Active 2019-0 Univers exacerbati exacerbati 4-04 it y of on on 00:00: [place] [facility] Coronary Coronary Disease Active 2019-0 Unive rs artery artery 4-04 ity of disease disease 00:00: [place] involving involving 00 Medi johnathan [place] Branch coronary coronary artery of artery of [place] heart heart without without angina angina pectoris pectoris 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 ICD10 Diagnosis Term Business System Consultant Utility Gout Gout Disease Active 2011-02 Univers 0-19 ity of 00:00: [place] 00 Medical Branch Backache Backache Disease Active Overview: Un jb 4-20 Formattin ity of 00:00: g of this [place] 00 note Medical might be Branch different from the original. ICD10 Diagnosis Term Business System Consultant Utility Essential Essential Disease Active Uni vers [...] different from the original. ICD10 Diagnosis Term Business System Consultant Utility Chest pain Chest pain Disease Active Overview : Univers 4-30 Formattin ity of 00:00: g of this [place] 00 note Medical might be Branch different from the original. ICD10 Diagnosis Term Business System Consultant Utility HLD HLD Disease Active Overview: Univer s (hyperlipi (hyperlipi 06-21 Formattin ity of demia) demia) 00:00: g of this [place] 00 note Medical might be Branch different from the original. ICD10 Diagnosis Term Business System Consultant Utility Chronic Chronic Disease Active Univers kidney kidney 29 ity of disease, disease, 00:00: [place] stage II stage II 00 Medica l (mild) (mild) Branch Coronary Coronary Disease Active Unive rs atheroscle atheroscle 29 it y of rosis of rosis of 00:00: [place] 00 Medical coronary coronary Branch artery artery Spinal Spinal Disease Active [facility] stenosis stenosis 29 ity of of lumbar of lumbar 00:00[place] region 00 Medical without without Branch neurogenic neurogenic claudicati claudicati on on Skin Skin Disease Active [facility] cancer cancer ity of [facility] 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 [facility] Allergies, Adverse Reactions, Alerts Allergy Allergy Status Severity Reaction(s) Onset Inactive Treating Comm ents Source Name Type Date Date Clinician Zolpidem Propensi Active Nausea Only U nivers ty to 08 ity of adverse 00:00: [place] reaction 00 Medical s to Branch drug ZOLPIDEM DRUG Active NAUSEA ONLY Uni vers INGREDI 4-08 ity of 00:00: [place] 00 [facility] Branch Social History Social Habit Start Date Stop Date Quantity Comments Source History of tobacco Cigarette Smoker [facility] use [facility] Gender identity Universit [facility] Sexual orientation [facility] Exposure to 2021-10-29 2021-11-08 Not sure [facility] SARS-CoV-2 (event) 00:00:00 14:33:00 [facility] Alcohol intake 2021-11-08 2021-11-08 Current University of 00:00:00 00:00:00 non-drinker of [facility] alcohol Branch (finding) Tobacco Comment 2021-11-08 2021-11-08 quit 50 years Univer sity of 00:00:00 00:00:00 ago [facility] Cigarettes smoked 2021-11-08 2021-11-08 Univers ity of current (pack per 00:00:00 00:00:00 [facility] ) - Reported Branch Cigarette 2021-11-08 2021-11-08 University of pack-years 00:00:00 00:00:00 [facility] Tobacco use and 2021-11-08 2021-11-08 Smokeless Universit y of exposure 00:00:00 00:00:00 tobacco non-user [facility] dical [place] History of Social 2021-07-17 2021-07-17 Univers ity of function 00:00:00 00:00:00 [facility] Sex Ass[birth year] Universit y of 00:00:00 00:00:00 [facility] Smoking Status Start Date Stop Date Source Ex-smoker 2021-11-08 00:00:00 2021-11-08 00:00:00 Universi ty of [facility] Medications Ordered Filled Start Stop Current Ordering Indication Dosage Frequency Signature Comments Components Source Medication Medication Date Date Medication? Clinician (SIG) Name Name DIRK Yes [id number] USE Un jb ALCOHOL 09-08 DIRECTED ity of PREP PADS 00:00: [place] Pad 00 [facility] ondansetron 2022- No 4mg 4 mg, Slow Univers (ZOFRAN 08-28 IV Push, ity of (PF)) 03:30: 03:50 ONCE, 1 [place] injection 4 00 :00 dose, On Medi johnathan mg 08/27/22 Branch at 2230, [place] furosemide 2022- No 20mg 20 mg, IV U nivers (LASIX) 08-28 Push, ity of injection 03:30: 03:25 ONCE, 1 [place] 20 mg 00 :00 dose, On Medical 08/27/22 Branch at 2230, [place] cephALEXin 2022- Yes [id number] 500mg Take 1 Univers 500 mg 08-2716 capsule by ity of capsule 00:00: 04:59 mouth in [place] 00 :00 the Medical morning Branch and 1 capsule at noon and 1 capsule in the evening. Do all this for 10 days. MONTELUKAST 2022-0 Yes [id number] TAKE 1 Univers 10 mg 6-26 TABLET ity of tablet 00:00: EVERY DAY [place] [facility] Branch ALLOPURINOL 2022-0 Yes [id number] TAKE 1 Univers 100 mg 6-26 TABLET ity of tablet 00:00: EVERY DAY [address] Branch TAMSULOSIN 2022-0 Yes [id number] TAKE 1 Univers 0.4 mg 24 6-26 9102 CAPSULE ity of hr capsule 00:00: EVERY DAY [facility] Branch FINASTERIDE 2022-0 Yes [id number] TAKE 1 Univers 5 mg tablet 6-26 9102 TABLET ity of 00:00: EVERY DAY [address] Branch MONTELUKAST 2022-0 Yes [id number] TAKE 1 Univers 10 mg 6-26 TABLET ity of tablet 00:00: EVERY DAY [address] Branch ALLOPURINOL 3-0 Yes [id number] TAKE 1 Univers 100 mg 6-26 TABLET ity of tablet 00:00: EVERY DAY [address] Branch TAMSULOSIN 2022-0 Yes [id number] TAKE 1 Univers 0.4 mg 24 6-26 9102 CAPSULE ity of hr capsule 00:00: EVERY DAY [facility] Branch FINASTERIDE 2022-0 Yes [id number] TAKE 1 Univers 5 mg tablet 6-26 9102 TABLET ity of 00:00: EVERY DAY [address] Branch MONTELUKAST 2022-0 Yes [id number] TAKE 1 Univers 10 mg 6-26 TABLET ity of tablet 00:00: EVERY DAY [address] Branch ALLOPURINOL 3-0 Yes [id number] TAKE 1 Univers 100 mg 6-26 TABLET ity of tablet 00:00: EVERY DAY [address] Branch TAMSULOSIN 3-0 Yes [id number] TAKE 1 Univers 0.4 mg 24 6-26 9102 CAPSULE ity of hr capsule 00:00: EVERY DAY [facility] Branch FINASTERIDE 2022-0 Yes [id number] TAKE 1 Univers 5 mg tablet 6-26 9102 TABLET ity of 00:00: EVERY DAY [place] 00 Medical Branch MONTELUKAST 2022-0 Yes [id number] TAKE 1 Univers 10 mg 6-26 TABLET ity of tablet 00:00: EVERY DAY [place] Medical Branch ALLOPURINOL 2022-0 Yes [id number] TAKE 1 Univers 100 mg 6-26 TABLET ity of tablet 00:00: EVERY DAY [address] Branch TAMSULOSIN 2022-0 Yes [id number] TAKE 1 Univers 0.4 mg 24 6-26 9102 CAPSULE ity of hr capsule 00:00: [place] FINASTERIDE 2022-0 Yes [id number] TAKE 1 Univers 5 mg tablet 6-26 9102 TABLET ity of 00:00: EVERY DAY [address] Branch pregabalin 2022-0 Yes [id number] 75mg Take 1 Univers 75 mg 2-23 capsule by ity of capsule 00:00: mouth in [place] [address] the [facility] and 1 capsule at noon and 1 capsule in the evening. pregabalin 2022-0 Yes [id number] 75mg Take 1 Univers 75 mg 2-23 capsule by ity of capsule 00:00: mouth in [address] and 1 capsule at noon and 1 capsule in the evening. pregabalin 2022-0 Yes [id number] 75mg Take 1 Univers 75 mg 2-23 capsule by ity of capsule 00:00: mouth in [address] and 1 capsule at noon and 1 capsule in the evening. pregabalin 2022-0 Yes [id number] 75mg Take 1 Univers 75 mg 2-23 capsule by ity of capsule 00:00: mouth in [address] morning [place] and 1 capsule at noon and 1 capsule in the evening. pregabalin 2022-0 Yes [id number] 75mg Take 1 Univers 75 mg 2-23 capsule by ity of capsule 00:00: mouth in [address] and 1 capsule at noon and 1 capsule in the evening. ENALAPRIL 2022-0 Yes [id number] TAKE 1 Uni vers 20 mg 2-21 TABLET ity of tablet 00:00: EVERY [address] DROPSAFE 2022-0 Yes [id number] USE Un jb ALCOHOL 2-21 DIRECTED ity of PREP PADS 00:00: [place] [facility] ENALAPRIL 2022-0 Yes [id number] TAKE 1 Uni vers 20 mg 2-21 TABLET ity of tablet 00:00: EVERY [place] 00 MORNING Medical Branch DROPSAFE 2022-0 Yes [id number] USE Un jb ALCOHOL 2-21 DIRECTED ity of PREP PADS 00:00: [facility] [place] [facility] Medical Branch ENALAPRIL 2022-0 Yes [id number] TAKE 1 Uni vers 20 mg 2-21 TABLET ity of tablet 00:00: EVERY [place] MORNING Medical Branch DROPSAFE 2022-0 Yes [id number] USE Un jb ALCOHOL 2-21 DIRECTED ity of PREP PADS 00:00: [facility] [place] [facility] Medical Branch ENALAPRIL 2022-0 Yes [id number] TAKE 1 Uni vers 20 mg 2-21 TABLET ity of tablet 00:00: EVERY [place] [address] MORNING Medical Branch DROPSAFE 2022-0 Yes [id number] USE Un jb ALCOHOL 2-21 DIRECTED ity of PREP PADS 00:00: [facility] [place] [facility] Medical Branch ENALAPRIL 2022-0 Yes [id number] TAKE 1 Uni vers 20 mg 2-21 TABLET ity of tablet 00:00: EVERY [place] [address] MORNING Medical Branch DROPSAFE 2022-0 Yes [id number] USE Un jb ALCOHOL 2-21 DIRECTED ity of PREP PADS 00:00: [facility] [place] [facility] Medical Branch ENALAPRIL 2022-0 Yes [id number] TAKE 1 Uni vers 20 mg 2-21 TABLET ity of tablet 00:00: EVERY [place] [address] MORNING Medical Branch DROPSAFE 2022-0 2022- No [id number] USE U nivers ALCOHOL 2-21 07-17 DIRECTED ity of PREP PADS 00:00: 00:00 [facility] [place] [facility] 00 :00 Medical Branch NOVOLOG 2022-0 Yes [id number] INJECT 40 Univers FLEXPEN 2-14 UNITS ity of U-100 00:00: UNDER THE [place] INSULIN 100 00 SKIN THREE Me dical unit/mL (3 TIMES Branch mL) DAILY injection BEFORE MEALS (MORNING, NOON, EVENING) NOVOLOG 2022-0 Yes [id number] INJECT 40 Univers FLEXPEN 2-14 UNITS ity of U-100 00:00: UNDER THE [place] INSULIN 100 00 SKIN THREE Me dical unit/mL (3 TIMES Branch mL) DAILY injection BEFORE MEALS (MORNING, NOON, EVENING) NOVOLOG 2022-0 Yes [id number] INJECT 40 Univers FLEXPEN 2-14 UNITS ity of U-100 00:00: UNDER THE [place] INSULIN 100 00 SKIN THREE Me dical unit/mL (3 TIMES Branch mL) DAILY injection BEFORE MEALS (MORNING, NOON, EVENING) NOVOLOG 0 Yes [id number] INJECT 40 Univers FLEXPEN 2-14 UNITS ity of U-100 00:00: UNDER THE [place] INSULIN 100 00 SKIN THREE Me dical unit/mL (3 TIMES Branch mL) DAILY injection BEFORE MEALS (MORNING, NOON, EVENING) NOVOLOG 0 Yes [id number] INJECT 40 Univers FLEXPEN 2-14 UNITS ity of U-100 00:00: UNDER THE [place] INSULIN 100 00 SKIN THREE Me dical unit/mL (3 TIMES Branch mL) DAILY injection BEFORE MEALS (MORNING, NOON, EVENING) NOVOLOG Yes [id number] INJECT 40 Univers FLEXPEN 2-14 UNITS ity of U-100 00:00: UNDER THE [place] INSULIN 100 00 SKIN THREE Me dical unit/mL (3 TIMES Branch mL) DAILY injection BEFORE MEALS (MORNING, NOON, EVENING) NOVOLOG Yes [id number] INJECT 40 Univers FLEXPEN 2-14 UNITS ity of U-100 00:00: UNDER THE [place] INSULIN 100 00 SKIN THREE Me dical unit/mL (3 TIMES Branch mL) DAILY injection BEFORE MEALS (MORNING, NOON, EVENING) ESOMEPRAZOL Yes [id number] TAKE 1 Univers E 20 mg 1-03 CAPSULE BY ity of capsule 00:00: MOUTH [place] 00 EVERY DAY Medical Branch ESOMEPRAZOL Yes [id number] TAKE 1 Univers E 20 mg 1-03 CAPSULE BY ity of capsule 00:00: MOUTH [place] 00 EVERY DAY Medical Branch ESOMEPRAZOL Yes [id number] TAKE 1 Univers E 20 mg 1-03 CAPSULE BY ity of capsule 00:00: MOUTH [place] EVERY DAY Medical Branch ESOMEPRAZOL Yes [id number] TAKE 1 Univers E 20 mg 1-03 CAPSULE BY ity of capsule 00:00: MOUTH [place] EVERY DAY Medical Branch ESOMEPRAZOL Yes [id number] TAKE 1 Univers E 20 mg 1-03 CAPSULE BY ity of capsule 00:00: MOUTH [place] EVERY DAY Medical Branch ESOMEPRAZOL Yes [id number] TAKE 1 Univers E 20 mg 1-03 CAPSULE BY ity of capsule 00:00: MOUTH EVERY DAY Medical Branch ESOMEPRAZOL 2022-0 Yes [id number] TAKE 1 Univers E 20 mg 1-03 CAPSULE BY ity of capsule 00:00: MOUTH EVERY DAY Medical Branch ESOMEPRAZOL 2022-0 Yes [id number] TAKE 1 Univers E 20 mg 1-03 CAPSULE BY ity of capsule 00:00: MOUTH DAY Medical Branch Insulin 2021-02 Yes [id number] Use as Univ ers [place], 2-15 directed ity of Disposable, 00:00: [place] (DROPLET 00 Medical PEN NEEDLE) Branch 31 gauge x 1/4" Ndle Insulin 2021-02 Yes [id number] Use as Univ ers [place], 2-15 directed ity of Disposable, 00:00: [place] (DROPLET 00 Medical PEN NEEDLE) Branch 31 gauge x 1/4" Ndle Insulin 2021-02 Yes [id number] Use as Univ ers [place], 2-15 directed ity of Disposable, 00:00: [place] (DROPLET 00 Medical PEN NEEDLE) Branch 31 gauge x 1/4" Ndle Insulin 2021-02 Yes [id number] Use as Univ ers [place], 2-15 directed ity of Disposable, 00:00: [place] (DROPLET 00 Medical PEN NEEDLE) Branch 31 gauge x 1/4" Ndle Insulin 2021-02 Yes [id number] Use as Univ ers [place], 2-15 directed ity of Disposable, 00:00: [place] (DROPLET 00 Medical PEN NEEDLE) Branch 31 gauge x 1/4" Ndle Insulin 2021-02 Yes [id number] Use as Univ ers [place], 2-15 directed ity of Disposable, 00:00: [place] (DROPLET 00 Medical PEN NEEDLE) Branch 31 gauge x 1/4" Ndle Insulin 2021-02 Yes [id number] Use as Univ ers [place], 2-15 directed ity of Disposable, 00:00: [place] (DROPLET 00 Medical PEN NEEDLE) Branch 31 gauge x 1/4" Ndle Insulin 2021-02 Yes [id number] Use as Univ ers [place], 2-15 directed ity of Disposable, 00:00: [place] (DROPLET 00 Medical PEN NEEDLE) Branch 31 gauge x 1/4" Ndle Insulin 2021-02 Yes [id number] Use as Univ ers [place], 2-15 directed ity of Disposable, 00:00: [place] (DROPLET 00 Medical PEN NEEDLE) Branch 31 gauge x 1/4" Ndle Lancets 2021-02 Yes [id number] Use as Uni vers (ACCU-CHEK 2-08 directed ity o f SOFTCLIX 00:00: [place] LANCETS) 00 Medical [facility] Alcohol 2021-02 Yes [id number] Use as Uni vers Swabs (BD 2-08 directed ity of SINGLE USE 00:00: [place] SWABS 00 Medical REGULAR) Branch PadM Lancets 2021-02 Yes [id number] Use as Uni vers (ACCU-CHEK 2-08 directed ity o f SOFTCLIX 00:00: [place] LANCETS) 00 Medical [facility] Alcohol 2021-02 Yes [id number] Use as Uni vers Swabs (BD 2-08 directed ity of SINGLE USE 00:00: [place] SWABS 00 Medical REGULAR) Branch PadM Lancets 2021-02 Yes [id number] Use as Uni vers (ACCU-CHEK 2-08 directed ity o f SOFTCLIX 00:00: [place] LANCETS) 00 Medical [facility] Alcohol 2021-02 Yes [id number] Use as Uni vers Swabs (BD 2-08 directed ity of SINGLE USE 00:00: [place] SWABS 00 Medical REGULAR) Branch PadM Lancets 2021-02 Yes [id number] Use as Uni vers (ACCU-CHEK 2-08 directed ity o f SOFTCLIX 00:00: [place] LANCETS) 00 Medical [facility] Alcohol 2021-02 Yes [id number] Use as Uni vers Swabs (BD 2-08 directed ity of SINGLE USE 00:00: [place] SWABS 00 Medical REGULAR) Branch PadM Lancets 2021-02 Yes [id number] Use as Uni vers (ACCU-CHEK 2-08 directed ity o f SOFTCLIX 00:00: [place] LANCETS) 00 Medical [facility] Lancets 2021-02 Yes [id number] Use as Uni vers (ACCU-CHEK 2-08 directed ity o f SOFTCLIX 00:00: [place] LANCETS) 00 Medical [facility] Lancets 2021-02 Yes [id number] Use as Uni vers (ACCU-CHEK 2-08 directed ity o f SOFTCLIX 00:00: [place] LANCETS) 00 Medical [facility] Lancets 2021-02 Yes [id number] Use as Uni vers (ACCU-CHEK 2-08 directed ity o f SOFTCLIX 00:00: [place] LANCETS) 00 Medical [facility] Lancets 2021-02 Yes [id number] Use as Uni vers (ACCU-CHEK 2-08 directed ity o f SOFTCLIX 00:00: [place] LANCETS) 00 Medical [facility] Lancets 2021-02 Yes [id number] Use as Uni vers (ACCU-CHEK 2-08 directed ity o f SOFTCLIX 00:00: [place] LANCETS) 00 Medical [facility] Alcohol 2021-02- No [id number] Use as Un jb Swabs (BD 04-02 directed ity o f SINGLE USE 00:00: 00:00 [place] SWABS 00 :00 Medical REGULAR) Branch PadM pregabalin 2021-02 Yes [id number] 75mg Take 1 Univers 75 mg 2-07 capsule by ity of capsule 00:00: mouth in [place] the Medical morning Branch and 1 capsule at noon and 1 capsule in the evening. blood sugar 2021-02 Yes [id number] Test 4x Univers diagnostic 2-07 daily for ity of (ACCU-CHEK 00:00: [place] 00 code E11.9 Med ical TEST STRP) Branch strip pregabalin 2021-02 Yes [id number] 75mg Take 1 Univers 75 mg 2-07 capsule by ity of capsule 00:00: mouth in [place] the Medical morning Branch and 1 capsule at noon and 1 capsule in the evening. enalapril 2021-02 Yes [id number] 20mg Take 1 Uni vers 20 mg 2-07 tablet by ity of tablet 00:00: mouth in [place] the Medical morning. Branch pregabalin 2021-02 Yes [id number] 75mg Take 1 Univers 75 mg 2-07 capsule by ity of capsule 00:00: mouth in [place] the Medical morning Branch and 1 capsule at noon and 1 capsule in the evening. blood sugar 2021-02 Yes [id number] Test 4x Univers diagnostic 2-07 daily for ity of (ACCU-CHEK 00:00: [place] 00 code E11.9 Med ical TEST STRP) Branch strip enalapril 2021-02 Yes [id number] 20mg Take 1 Uni vers 20 mg 2-07 tablet by ity of tablet 00:00: mouth in [place] the morning. Branch pregabalin 2021-02 Yes [id number] 75mg Take 1 Univers 75 mg 2-07 capsule by ity of capsule 00:00: mouth in [place] the morning Branch and 1 capsule at noon and 1 capsule in the evening. blood sugar 2021-02 Yes [id number] Test 4x Univers diagnostic 2-07 daily for ity of (ACCU-CHEK 00:00: [place] 00 code E11.9 Med ical TEST STRP) Branch strip enalapril 2021-02 Yes [id number] 20mg Take 1 Uni vers 20 mg 2-07 tablet by ity of tablet 00:00: mouth in [place] the . Branch pregabalin 2021-02 Yes [id number] 75mg Take 1 Univers 75 mg 2-07 capsule by ity of capsule 00:00: mouth in [place] the morning Branch and 1 capsule at noon and 1 capsule in the evening. blood sugar 2021-02 Yes [id number] Test 4x Univers diagnostic 2-07 daily for ity of (ACCU-CHEK 00:00: [place] 00 code E11.9 Med ical TEST STRP) Branch strip enalapril 2021-02 Yes [id number] 20mg Take 1 Uni vers 20 mg 2-07 tablet by ity of tablet 00:00: mouth in [place] the . Branch pregabalin 2021-02 Yes [id number] 75mg Take 1 Univers 75 mg 2-07 capsule by ity of capsule 00:00: mouth in [place] the morning Branch and 1 capsule at noon and 1 capsule in the evening. blood sugar 2021-02 Yes [id number] Test 4x Univers diagnostic 2-07 daily for ity of (ACCU-CHEK 00:00: [place] 00 code E11.9 Med ical TEST STRP) Branch strip blood sugar 2021-02 Yes [id number] Test 4x Univers diagnostic 2-07 daily for ity of (ACCU-CHEK 00:00: [place] 00 code E11.9 Med ical TEST STRP) Branch strip blood sugar 2021-02 Yes [id number] Test 4x Univers diagnostic 2-07 daily for ity of (ACCU-CHEK 00:00: [place] 00 code E11.9 Med ical TEST STRP) Branch strip blood sugar 2021-02 Yes [id number] Test 4x Univers diagnostic 2-07 daily for ity of (ACCU-CHEK 00:00: diagnosis [place] 00 code E11.9 Med ical TEST STRP) Branch strip blood sugar 2021-02 Yes [id number] Test 4x Univers diagnostic 2-07 daily for ity of (ACCU-CHEK 00:00: diagnosis [place] 00 code E11.9 Med ical TEST STRP) Branch strip blood sugar 2021-02 Yes [id number] Test 4x Univers diagnostic 2-07 daily for ity of (ACCU-CHEK 00:00: [place] 00 code E11.9 Med ical TEST STRP) Branch strip pregabalin 2021-02- No [id number] 75mg Take 1 Univers 75 mg 04-01 capsule by ity of capsule 00:00: 00:00 mouth in [place] 00 :00 the Medical morning Branch and 1 capsule at noon and 1 capsule in the evening. enalapril 2021-02- No [id number] 20mg Take 1 Un jb 20 mg 04-01 tablet by ity of tablet 00:00: 00:00 mouth in [place] 00 :00 the Medical morning. Branch Blood 2021-02 Yes [id number] Use as Unive rs Glucose 2-06 needed per ity of Control 00:00: [facility] High&Low 00 er's Medical (ACCU-CHEK recommenda [facility] FOREST tions CONTROL SOLN) Soln Insulin 2021-02 Yes [id number] 50U inject 50 Univers Glargine 2-06 Units ity of (LANTUS 00:00: under the [place] SOLOSTAR 00 skin at Medical U-100 bedtime. Branch INSULIN) 100 unit/mL (3 mL) injection Blood 2021-02 Yes [id number] Use as Unive rs Glucose 2-06 needed per ity of Control 00:00: [facility] High&Low 00 er's Medical (ACCU-CHEK recommenda [facility] FOREST tions CONTROL SOLN) Soln Insulin 2021-02 Yes [id number] 50U inject 50 Univers Glargine 2-06 Units ity of (LANTUS 00:00: under the [place] SOLOSTAR 00 skin at Medical U-100 bedtime. Branch INSULIN) 100 unit/mL (3 mL) injection insulin 2021-02 Yes [id number] 40U inject 40 Univers aspart 2-06 Units ity of U-100 00:00: under the [place] (NOVOLOG 00 skin in Medical FLEXPEN the Branch U-100 morning INSULIN) and 40 100 unit/mL Units at (3 mL) noon and injection 40 Units in the evening. inject before meals. Blood 2021-02 Yes [id number] Use as Unive rs Glucose 2-06 needed per ity of Control 00:00: manufactur [facility] High&Low 00 er's Medical (ACCU-CHEK recommenda [facility] FOREST tions CONTROL SOLN) Soln Insulin 2021-02 Yes [id number] 50U inject 50 Univers Glargine 2-06 Units ity of (LANTUS 00:00: under the [place] SOLOSTAR 00 skin at Medical U-100 bedtime. Branch INSULIN) 100 unit/mL (3 mL) injection insulin 2021-02 Yes [id number] 40U inject 40 [facility] aspart 2-06 Units ity of U-100 00:00: under the [place] (NOVOLOG 00 skin in Medical FLEXPEN the Branch U-100 morning INSULIN) and 40 100 unit/mL Units at (3 mL) noon and injection 40 Units in the evening. inject before meals. Blood 2021-02 Yes [id number] Use as Unive rs Glucose 2-06 needed per ity of Control 00:00: manufactur [facility] High&Low 00 er's Medical (ACCU-CHEK recommenda [facility] FOREST tions CONTROL SOLN) Soln Insulin 2021-02 Yes [id number] 50U inject 50 [facility] Glargine 2-06 Units ity of (LANTUS 00:00: under the [place] SOLOSTAR 00 skin at Medical U-100 bedtime. Branch INSULIN) 100 unit/mL (3 mL) injection insulin 2021-02 Yes [id number] 40U inject 40 [facility] aspart 2-06 Units ity of U-100 00:00: under the [place] (NOVOLOG 00 skin in Medical FLEXPEN the Branch U-100 morning INSULIN) and 40 100 unit/mL Units at (3 mL) noon and injection 40 Units in the evening. inject before meals. Blood 2021-02 Yes [id number] Use as Unive rs Glucose 2-06 needed per ity [facility] (ACCU-CHEK recommenda [facility] FOREST [facility] CONTROL SOLN) Soln Insulin 2021-02 Yes [id number] 50U inject 50 [facility] Glargine 2-06 Units ity of (LANTUS 00:00: under the [place] SOLOSTAR 00 skin at [facility] U-100 bedtime. Branch INSULIN) 100 unit/mL (3 mL) injection insulin 2021-02 Yes [id number] 40U inject 40 [facility] aspart 2-06 Units ity of U-100 00:00: under the [place] (NOVOLOG 00 skin in Medical FLEXPEN the Branch U-100 morning INSULIN) and 40 100 unit/mL Units at (3 mL) noon and injection 40 Units in the evening. inject before meals. Blood 2021-02 Yes [id number] Use as Unive rs Glucose 2-06 needed per ity of Control 00:00: [facility] s High&Low 00 er's [facility] (ACCU-CHEK recommenda [facility] FOREST tions CONTROL SOLN) Soln Insulin 2021-02 Yes [id number] 50U inject 50 [facility] Glargine 2-06 Units ity of (LANTUS 00:00: under the [place] SOLOSTWA 00 skin at Medical U-100 bedtime. Branch INSULIN) 100 unit/mL (3 mL) injection insulin 2021-02 Yes [id number] 40U inject 40 [facility] aspart 2-06 Units ity of U-100 00:00: under the [place] (NOVOLOG 00 skin in Medical FLEXPEN the Branch U-100 morning INSULIN) and 40 100 unit/mL Units at (3 mL) noon and injection 40 Units in the evening. inject before meals. Blood 2021-02 Yes [id number] Use as Unive rs Glucose 2-06 needed per ity of Control 00:00: [facility] Medical (ACCU-CHEK recommenda [facility] FOREST tions CONTROL SOLN) Soln Insulin 2021-02 Yes [id number] 50U inject 50 Univers Glargine 2-06 Units ity of (LANTUS 00:00: under the [place] SOLOSTAR 00 skin at Medical U-100 bedtime. Branch INSULIN) 100 unit/mL (3 mL) injection insulin 2021-02 Yes [id number] 40U inject 40 [facility] aspart 2-06 Units ity of U-100 00:00: under the [place] (NOVOLOG 00 skin in Medical FLEXPEN the Branch U-100 morning INSULIN) and 40 100 unit/mL Units at (3 mL) noon and injection 40 Units in the evening. inject before meals. Blood 2021-02 Yes [id number] Use as Unive rs Glucose 2-06 needed per ity of Control 00:00: manufactur [facility] High&Low 00 er's Medical (ACCU-CHEK recommenda [facility] FOREST tions CONTROL SOLN) Soln Insulin 2021-02 Yes [id number] 50U inject 50 [facility] Glargine 2-06 Units ity of (LANTUS 00:00: under the [place] SOLOSTAR 00 skin at Medical U-100 bedtime. Branch INSULIN) 100 unit/mL (3 mL) injection insulin 2021-02 Yes [id number] 40U inject 40 [facility] aspart 2-06 Units ity of U-100 00:00: under the [place] (NOVOLOG 00 skin in Medical FLEXPEN the Branch U-100 morning INSULIN) and 40 100 unit/mL Units at (3 mL) noon and injection 40 Units in the evening. inject before meals. Blood 2021-02 Yes [id number] Use as Unive rs Glucose 2-06 needed per ity of Control 00:00: manufactur [facility] High&Low 00 er's Medical (ACCU-CHEK recommenda [facility] FOREST tions CONTROL SOLN) Soln Insulin 2021-02 Yes [id number] 50U inject 50 [facility] Glargine 2-06 Units ity of (LANTUS 00:00: under the [place] SOLOSTAR 00 skin at Medical U-100 bedtime. Branch INSULIN) 100 unit/mL (3 mL) injection insulin 2021-02 Yes [id number] 40U inject 40 [facility] aspart 2-06 Units ity of U-100 00:00: under the [place] (NOVOLOG 00 skin in Medical FLEXPEN the Branch U-100 morning INSULIN) and 40 100 unit/mL Units at (3 mL) noon and injection 40 Units in the evening. inject before meals. Blood 2021-02 Yes [id number] Use as Unive rs Glucose 2-06 needed per ity of Control 00:00: [place] High&Low 00 er's Medical (ACCU-CHEK recommenda [facility] FOREST tions CONTROL SOLN) Soln Insulin 2021-02 Yes [id number] 50U inject 50 [facility] Glargine 2-06 Units ity of (LANTUS 00:00: under the [place] SOLOSTAR 00 skin at Medical U-100 bedtime. Branch INSULIN) 100 unit/mL (3 mL) injection insulin 2021-02 Yes [id number] 40U inject 40 [facility] aspart 2-06 Units ity of U-100 00:00: under the [place] (NOVOLOG 00 skin in Medical FLEXPEN the Branch U-100 morning INSULIN) and 40 100 unit/mL Units at (3 mL) noon and injection 40 Units in the evening. inject before meals. Blood 2021-02 Yes [id number] Use as Unive rs Glucose 2-06 needed per ity of Control 00:00: [facility] High[facility]Low [facility] er[facility] Medical (ACCU-CHEK recommenda [facility] FOREST tions CONTROL SOLN) Soln Insulin 2021-02 Yes [id number] 50U inject 50 [facility] Glargine 2-06 Units ity of (LANTUS 00:00: under the [place] SOLOSTAR 00 skin at Medical U-100 bedtime. Branch INSULIN) 100 unit/mL (3 mL) injection Blood 2021-02 Yes [id number] Use as Unive rs Glucose 2-06 needed per ity of Control 00:00: [facility] High&Low 00 er's Medical (ACCU-CHEK recommenda [facility] FOREST tions CONTROL SOLN) Soln Insulin 2021-02 Yes [id number] 50U inject 50 [facility] Glargine 2-06 Units ity of (LANTUS 00:00: under the [place] SOLOSTAR 00 skin at Medical U-100 bedtime. Branch INSULIN) 100 unit/mL (3 mL) injection Blood 2021-02 Yes [id number] Use as Unive rs Glucose 2-06 needed per ity of Control 00:00: [place] High&Low 00 er's Medical (ACCU-CHEK recommenda [facility] FOREST tions CONTROL SOLN) Soln Insulin 2021-02 Yes [id number] 50U inject 50 [facility] Glargine 2-06 Units ity of (LANTUS [facility]:00[facility] bedtime. Branch INSULIN) 100 unit/mL (3 mL) injection Blood 2021-02 Yes [id number] Use as Unive rs Glucose 2-06 needed per ity of Control 00:00: manufactur [place] High&Low 00 er's Medical (ACCU-CHEK recommenda [facility] FOREST tions CONTROL SOLN) Soln Insulin 2021-02 Yes [id number] 50U inject 50 [facility] Glargine 2-06 Units ity of (LANTUS 00:00: under the [place] [address] skin at [facility] U-100 bedtime. Branch INSULIN) 100 unit/mL (3 mL) injection Blood 2021-02 Yes [id number] Use as Unive rs Glucose 2-06 needed per ity of Control 00:00: manufactur [place] High&Low 00 er's Medical (ACCU-CHEK recommenda [facility] FOREST tions CONTROL SOLN) Soln Insulin 2021-02 Yes [id number] 50U inject 50 [facility] Glargine 2-06 Units ity of (LANTUS 00:00: under the [facility] 00 skin at Medical U-100 bedtime. Branch INSULIN) 100 unit/mL (3 mL) injection Blood 2021-02 Yes [id number] Use as Unive rs Glucose 2-06 needed per ity of Control 00:00: manufactur [place] High&Low 00 er's Medical (ACCU-CHEK recommenda [facility] FOREST tions CONTROL SOLN) Soln Insulin 2021-02 Yes [id number] 50U inject 50 [facility] Glargine 2-06 Units ity of (LANTUS 00:00: under the [place] SOLOSTAR 00 skin at Medical U-100 bedtime. Branch INSULIN) 100 unit/mL (3 mL) injection Blood 2021-02 Yes [id number] Use as Unive rs Glucose 2-06 needed per ity of Control 00:00: manufactur [place] High&Low 00 er's Medical (ACCU-CHEK recommenda [facility] FOREST tions CONTROL SOLN) Soln Insulin 2021-02 Yes [id number] 50U inject 50 [facility] Glargine 2-06 Units ity of (LANTUS 00:00: under the [place] SOLOSTAR 00 skin at Medical U-100 bedtime. Branch INSULIN) 100 unit/mL (3 mL) injection insulin 2021-02- No [id number] 40U inject 40 [facility] aspart 2-06 02-14 Units ity of U-100 00:00: 00:00 under the [place] (NOVOLOG 00 :00 skin in [facility] FLEXPEN the [employer] U-100 morning INSULIN) and 40 100 unit/mL Units at (3 mL) noon and injection 40 Units in the evening. inject before meals. TAMSULOSIN 2021-02 Yes [id number] TAKE 1 Univers 0.4 mg 24 1-18 9102 CAPSULE ity of hr capsule 00:00: [place] [facility] FINASTERIDE 2021-02 Yes [id number] TAKE 1 Univers 5 mg tablet 1-18 9102 TABLET ity of 00:00: EVERY DAY [place] [facility] MONTELUKAST 2021-02 Yes [id number] TAKE 1 Univers 10 mg 1-18 TABLET ity of tablet 00:00: EVERY DAY [place] [facility] ALLOPURINOL 2021-02 Yes [id number] TAKE 1 Univers 100 mg 1-18 TABLET ity of tablet 00:00: EVERY DAY [place] [facility] TAMSULOSIN 2021-02 Yes [id number] TAKE 1 Univers 0.4 mg 24 1-18 9102 CAPSULE ity of hr capsule 00:00: [place] [facility] FINASTERIDE 2021-02 Yes [id number] TAKE 1 Univers 5 mg tablet 1-18 9102 TABLET ity of 00:00: EVERY DAY [address] MONTELUKAST 2021-02 Yes [id number] TAKE 1 Univers 10 mg 1-18 TABLET ity of tablet 00:00: EVERY DAY [address] ALLOPURINOL 2021-02 Yes [id number] TAKE 1 Univers 100 mg 1-18 TABLET ity of tablet 00:00: EVERY DAY [facility] ESCITALOPRA 2021-02 Yes [id number] 10mg TAKE 1 Univers M OXALATE 1-18 TABLET BY ity o f 10 mg 00:00: MOUTH [place] tablet DAILY [facility] TAMSULOSIN 2021-02 Yes [id number] TAKE 1 Univers 0.4 mg 24 1-18 9102 CAPSULE ity of hr capsule 00:00: [facility] FINASTERIDE 2021-02 Yes [id number] TAKE 1 Univers 5 mg tablet 1-18 9102 TABLET ity of 00:00: EVERY DAY [place] [facility] MONTELUKAST 2021-02 Yes [id number] TAKE 1 Univers 10 mg 1-18 TABLET ity of tablet 00:00: EVERY DAY [place] [facility] ALLOPURINOL 2021-02 Yes [id number] TAKE 1 Univers 100 mg 1-18 TABLET ity of tablet 00:00: EVERY DAY [place] [facility] ESCITALOPRA 2021-02 Yes [id number] 10mg TAKE 1 Univers M OXALATE 1-18 TABLET BY ity o f 10 mg 00:00: MOUTH [place] tablet DAILY [facility] TAMSULOSIN 2021-02 Yes [id number] TAKE 1 Univers 0.4 mg 24 1-18 9102 CAPSULE ity of hr capsule 00:00: EVERY DAY [place] [facility] FINASTERIDE 2021-02 Yes [id number] TAKE 1 Univers 5 mg tablet 1-18 9102 TABLET ity of 00:00: EVERY DAY [place] [facility] MONTELUKAST 2021-02 Yes [id number] TAKE 1 Univers 10 mg 1-18 TABLET ity of tablet 00:00: EVERY DAY [place] [facility] ALLOPURINOL 2021-02 Yes [id number] TAKE 1 Univers 100 mg 1-18 TABLET ity of tablet 00:00: EVERY DAY [place] [facility] ESCITALOPRA 2021-02 Yes [id number] 10mg TAKE 1 Univers M OXALATE 1-18 TABLET BY ity o f 10 mg 00:00: MOUTH [place] tablet DAILY [facility] TAMSULOSIN 2021-02 Yes [id number] TAKE 1 Univers 0.4 mg 24 1-18 9102 CAPSULE ity of hr capsule 00:00: EVERY DAY [place] [facility] FINASTERIDE 2021-02 Yes [id number] TAKE 1 Univers 5 mg tablet 1-18 9102 TABLET ity of 00:00: EVERY DAY [place] [facility] MONTELUKAST 2021-02 Yes [id number] TAKE 1 Univers 10 mg 1-18 TABLET ity of tablet 00:00: EVERY DAY [place] [facility] ALLOPURINOL 2021-02 Yes [id number] TAKE 1 Univers 100 mg 1-18 TABLET ity of tablet 00:00: EVERY DAY [place] [facility] ESCITALOPRA 2021-02 Yes [id number] 10mg TAKE 1 Univers M OXALATE 1-18 TABLET BY ity o f 10 mg 00:00: MOUTH [place] tablet DAILY Medical [facility] TAMSULOSIN 2021-02 Yes [id number] TAKE 1 Univers 0.4 mg 24 1-18 9102 CAPSULE ity of hr capsule 00:00: [facility] FINASTERIDE 2021-02 Yes [id number] TAKE 1 Univers 5 mg tablet 1-18 9102 TABLET ity of 00:00: EVERY DAY [place] [facility] MONTELUKAST 2021-02 Yes [id number] TAKE 1 Univers 10 mg 1-18 TABLET ity of tablet 00:00: EVERY DAY [place] [facility] ALLOPURINOL 2021-02 Yes [id number] TAKE 1 Univers 100 mg 1-18 TABLET ity of tablet 00:00: EVERY DAY [place] [facility] ESCITALOPRA 2021-02 Yes [id number] 10mg TAKE 1 Univers M OXALATE 1-18 TABLET BY ity o f 10 mg 00:00: MOUTH [place] tablet DAILY [facility] TAMSULOSIN 2021-02 Yes [id number] TAKE 1 Univers 0.4 mg 24 1-18 9102 CAPSULE ity of hr capsule 00:00: EVERY DAY [place] [facility] FINASTERIDE 2021-02 Yes [id number] TAKE 1 Univers 5 mg tablet 1-18 9102 TABLET ity of 00:00: EVERY DAY [place] [facility] MONTELUKAST 2021-02 Yes [id number] TAKE 1 Univers 10 mg 1-18 TABLET ity of tablet 00:00: EVERY DAY [place] [facility] ALLOPURINOL 2021-02 Yes [id number] TAKE 1 Univers 100 mg 1-18 TABLET ity of tablet 00:00: EVERY DAY [address] ESCITALOPRA 2021-02 Yes [id number] 10mg TAKE 1 Univers M OXALATE 1-18 TABLET BY ity o f 10 mg 00:00: MOUTH [place] tablet 00 DAILY Medical Branch TAMSULOSIN 2021-02 Yes [id number] TAKE 1 Univers 0.4 mg 24 1-18 9102 CAPSULE ity of hr capsule 00:00: [place] [facility] FINASTERIDE 2021-02 Yes [id number] TAKE 1 Univers 5 mg tablet 1-18 9102 TABLET ity of 00:00: EVERY DAY [facility] MONTELUKAST 2021-02 Yes [id number] TAKE 1 Univers 10 mg 1-18 TABLET ity of tablet 00:00: EVERY DAY [place] [facility] ALLOPURINOL 2021-02 Yes [id number] TAKE 1 Univers 100 mg 1-18 TABLET ity of tablet 00:00: EVERY DAY [place] [facility] ESCITALOPRA 2021-02 Yes [id number] 10mg TAKE 1 Univers M OXALATE 1-18 TABLET BY ity o f 10 mg 00:00: MOUTH [place] tablet DAILY Medical Branch TAMSULOSIN 2021-02 Yes [id number] TAKE 1 Univers 0.4 mg 24 1-18 9102 CAPSULE ity of hr capsule 00:00: [place] [facility] FINASTERIDE 2021-02 Yes [id number] TAKE 1 Univers 5 mg tablet 1-18 9102 TABLET ity of 00:00: EVERY DAY [facility] MONTELUKAST 2021-02 Yes [id number] TAKE 1 Univers 10 mg 1-18 TABLET ity of tablet 00:00: EVERY DAY [facility] ALLOPURINOL 2021-02 Yes [id number] TAKE 1 Univers 100 mg 1-18 TABLET ity of tablet 00:00: EVERY DAY [place] [facility] ESCITALOPRA 2021-02 Yes [id number] 10mg TAKE 1 Univers M OXALATE 1-18 TABLET BY ity o f 10 mg 00:00: MOUTH [place] tablet 00 DAILY Medical Branch TAMSULOSIN 2021-02 Yes [id number] TAKE 1 Univers 0.4 mg 24 1-18 9102 CAPSULE ity of hr capsule 00:00: [place] [facility] FINASTERIDE 2021-02 Yes [id number] TAKE 1 Univers 5 mg tablet 1-18 9102 TABLET ity of 00:00: EVERY DAY [place] [facility] MONTELUKAST 2021-02 Yes [id number] TAKE 1 Univers 10 mg 1-18 TABLET ity of tablet 00:00: EVERY DAY [place] [facility] ALLOPURINOL 2021-02 Yes [id number] TAKE 1 Univers 100 mg 1-18 TABLET ity of tablet 00:00: EVERY DAY [place] [facility] ESCITALOPRA 2021-02 Yes [id number] 10mg TAKE 1 Univers M OXALATE 1-18 TABLET BY ity o f 10 mg 00:00: MOUTH [place] tablet 00 DAILY Medical Branch TAMSULOSIN 2021-02 Yes [id number] TAKE 1 Univers 0.4 mg 24 1-18 9102 CAPSULE ity of hr capsule 00:00: EVERY [place] [facility] FINASTERIDE 2021-02 Yes [id number] TAKE 1 Univers 5 mg tablet 1-18 9102 TABLET ity of 00:00: EVERY DAY [place] [facility] MONTELUKAST 2021-02 Yes [id number] TAKE 1 Univers 10 mg 1-18 TABLET ity of tablet 00:00: EVERY DAY [place] [facility] ALLOPURINOL 2021-02 Yes [id number] TAKE 1 Univers 100 mg 1-18 TABLET ity of tablet 00:00: EVERY DAY [address] ESCITALOPRA 2021-02 Yes [id number] 10mg TAKE 1 Univers M OXALATE 1-18 TABLET BY ity o f 10 mg 00:00: MOUTH [place] tablet DAILY Medical [facility] TAMSULOSIN 2021-02 Yes [id number] TAKE 1 Univers 0.4 mg 24 1-18 9102 CAPSULE ity of hr capsule 00:00: EVERY DAY [place] [facility] FINASTERIDE 2021-02 Yes [id number] TAKE 1 Univers 5 mg tablet 1-18 9102 TABLET ity of 00:00: EVERY DAY [place] [facility] MONTELUKAST 2021-02 Yes [id number] TAKE 1 Univers 10 mg 1-18 TABLET ity of tablet 00:00: EVERY DAY [address] ALLOPURINOL 2021-02 Yes [id number] TAKE 1 Univers 100 mg 1-18 TABLET ity of tablet 00:00: EVERY DAY [place] [facility] ESCITALOPRA 2021-02 Yes [id number] 10mg TAKE 1 Univers M OXALATE 1-18 TABLET BY ity o f 10 mg 00:00: MOUTH [place] tablet 00 DAILY Medical [facility] TAMSULOSIN 2021-02 Yes [id number] TAKE 1 Univers 0.4 mg 24 1-18 9102 CAPSULE ity of hr capsule 00:00: [place] [facility] FINASTERIDE 2021-02 Yes [id number] TAKE 1 Univers 5 mg tablet 1-18 9102 TABLET ity of 00:00: EVERY DAY [facility] MONTELUKAST 2021-02 Yes [id number] TAKE 1 Univers 10 mg 1-18 TABLET ity of tablet 00:00: EVERY DAY [facility] ALLOPURINOL 2021-02 Yes [id number] TAKE 1 Univers 100 mg 1-18 TABLET ity of tablet 00:00: EVERY DAY [place] [facility] ESCITALOPRA 2021-02 Yes [id number] 10mg TAKE 1 Univers M OXALATE 1-18 TABLET BY ity o f 10 mg 00:00: MOUTH [place] tablet DAILY Medical Branch TAMSULOSIN 2021-02 Yes [id number] TAKE 1 Univers 0.4 mg 24 1-18 9102 CAPSULE ity of hr capsule 00:00: [place] [facility] FINASTERIDE 2021-02 Yes [id number] TAKE 1 Univers 5 mg tablet 1-18 9102 TABLET ity of 00:00: EVERY DAY [place] [facility] MONTELUKAST 2021-02 Yes [id number] TAKE 1 Univers 10 mg 1-18 TABLET ity of tablet 00:00: EVERY DAY [place] [facility] ALLOPURINOL 2021-02 Yes [id number] TAKE 1 Univers 100 mg 1-18 TABLET ity of tablet 00:00: EVERY DAY [place] [facility] ESCITALOPRA 2021-02 Yes [id number] 10mg TAKE 1 Univers M OXALATE 1-18 TABLET BY ity o f 10 mg 00:00: MOUTH [place] tablet DAILY Medical Branch TAMSULOSIN 2021-02 Yes [id number] TAKE 1 Univers 0.4 mg 24 1-18 9102 CAPSULE ity of hr capsule 00:00: [place] [facility] FINASTERIDE 2021-02 Yes [id number] TAKE 1 Univers 5 mg tablet 1-18 9102 TABLET ity of 00:00: EVERY DAY [place] [facility] MONTELUKAST 2021-02 Yes [id number] TAKE 1 Univers 10 mg 1-18 TABLET ity of tablet 00:00: EVERY DAY [place] [facility] ALLOPURINOL 2021-02 Yes [id number] TAKE 1 Univers 100 mg 1-18 TABLET ity of tablet 00:00: EVERY DAY Medical Branch ESCITALOPRA 2021-02 Yes [id number] 10mg TAKE 1 Univers M OXALATE 1-18 TABLET BY ity o f 10 mg 00:00: MOUTH [place] tablet DAILY Medical Branch TAMSULOSIN 2021-02 Yes [id number] TAKE 1 Univers 0.4 mg 24 1-18 9102 CAPSULE ity of hr capsule 00:00: [place] [facility] FINASTERIDE 2021-02 Yes [id number] TAKE 1 Univers 5 mg tablet 1-18 9102 TABLET ity of 00:00: EVERY DAY [facility] MONTELUKAST 2021-02 Yes [id number] TAKE 1 Univers 10 mg 1-18 TABLET ity of tablet 00:00: EVERY DAY [facility] ALLOPURINOL 2021-02 Yes [id number] TAKE 1 Univers 100 mg 1-18 TABLET ity of tablet 00:00: EVERY DAY [facility] ESCITALOPRA 2021-02 Yes [id number] 10mg TAKE 1 Univers M OXALATE 1-18 TABLET BY ity o f 10 mg 00:00: MOUTH [place] tablet DAILY [facility] Branch TAMSULOSIN 2021-02 Yes [id number] TAKE 1 Univers 0.4 mg 24 1-18 9102 CAPSULE ity of hr capsule 00:00: [place] [facility] FINASTERIDE 2021-02 Yes [id number] TAKE 1 Univers 5 mg tablet 1-18 9102 TABLET ity of 00:00: EVERY DAY [facility] MONTELUKAST 2021-02 Yes [id number] TAKE 1 Univers 10 mg 1-18 TABLET ity of tablet 00:00: EVERY DAY [facility] ALLOPURINOL 2021-02 Yes [id number] TAKE 1 Univers 100 mg 1-18 TABLET ity of tablet 00:00: EVERY DAY [facility] ESCITALOPRA 2021-02 Yes [id number] 10mg TAKE 1 Univers M OXALATE 1-18 TABLET BY ity o f 10 mg 00:00: MOUTH [place] tablet DAILY Medical Branch ESCITALOPRA 2021-02 Yes [id number] 10mg TAKE 1 Univers M OXALATE 1-18 TABLET BY ity o f 10 mg 00:00: MOUTH [place] tablet DAILY Medical Branch ESCITALOPRA 2021-02 Yes [id number] 10mg TAKE 1 Univers M OXALATE 1-18 TABLET BY ity o f 10 mg 00:00: MOUTH [place] tablet DAILY [facility] ESCITALOPRA 2021-02 Yes [id number] 10mg TAKE 1 Univers M OXALATE 1-18 TABLET BY ity o f 10 mg 00:00: MOUTH [place] tablet 00 DAILY Medical Branch ESCITALOPRA 2021-02 Yes [id number] 10mg TAKE 1 Univers M OXALATE 1-18 TABLET BY ity o f 10 mg 00:00: MOUTH [place] tablet 00 DAILY [facility] Branch TAMSULOSIN 2021-02- No [id number] TAKE 1 Univers 0.4 mg 24 03-12 9102 CAPSULE ity of hr capsule 00:00: 00:00 EVERY [place]00 [facility] Branch FINASTERIDE 2021-02- No [id number] TAKE 1 Univers 5 mg tablet 03-12 9102 TABLET ity o f 00:00: 00:00 EVERY DAY [place] 00 :00 [facility] Branch MONTELUKAST 2021-02- No [id number] TAKE 1 Univers 10 mg 03-12 TABLET ity of tablet 00:00: 00:00 EVERY DAY [place] 00 :00 [facility] Branch ALLOPURINOL 2021-02- No [id number] TAKE 1 Univers 100 mg 03-12 TABLET ity of tablet 00:00: 00:00 EVERY DAY [place] 00 :00 [facility] Insulin 2021-02 Yes [id number] ADMINISTER Univers Glargine 1-02 50 UNITS ity of (LANTUS 00:00: UNDER THE [facility] 00 SKIN EVERY Medic al U-100 NIGHT AT Branch INSULIN) BEDTIME 100 unit/mL (3 mL) injection Insulin 2021-02 Yes [id number] ADMINISTER Univers Glargine 1-02 50 UNITS ity of (LANTUS 00:00: UNDER THE [place] SOLOSTAR 00 SKIN EVERY Medic al U-100 NIGHT AT Branch INSULIN) BEDTIME 100 unit/mL (3 mL) injection Insulin 2021-02 Yes [id number] ADMINISTER [facility] Glargine 1-02 50 UNITS ity of (LANTUS 00:00: UNDER THE [place] SOLOSTAR 00 SKIN EVERY Medic al U-100 NIGHT AT Branch INSULIN) BEDTIME 100 unit/mL (3 mL) injection Insulin 2021-02 Yes [id number] ADMINISTER [facility] Glargine 1-02 50 UNITS ity of (LANTUS 00:00: UNDER THE [place] SOLOSTAR 00 SKIN EVERY Medic al U-100 NIGHT AT Branch INSULIN) BEDTIME 100 unit/mL (3 mL) injection Insulin 2021-02 Yes [id number] ADMINISTER [facility] Glargine 02-24 50 UNITS ity of (LANTUS 00:00: UNDER THE [place] SOLOSTAR 00 SKIN EVERY Medic al U-100 NIGHT AT Branch INSULIN) BEDTIME 100 unit/mL (3 mL) injection Insulin 2021-02- No [id number] ADMINISTER Univers Glargine 02-24 12 50 UNITS ity of (LANTUS 00:00: 00:00 UNDER THE [facility] SOLOSTAR 00 :00 SKIN EVERY Medic al U-100 NIGHT AT Branch INSULIN) BEDTIME 100 unit/mL (3 mL) injection METOPROLOL Yes [id number] TAKE 1 Un jb TARTRATE 50 9-23 TABLET BY ity of mg tablet 00:00: [facility] TWICE Medical DAILY Branch TAMSULOSIN Yes [id number] .4mg TAKE 1 Univers 0.4 mg 24 9- 9102 CAPSULE BY ity of hr capsule 00:00: [facility] DAILY Medical Branch TAMSULOSIN Yes [id number] .4mg TAKE 1 Univers 0.4 mg 24 9- 9102 CAPSULE BY ity of hr capsule 00:00: [facility] DAILY Medical Branch METOPROLOL Yes [id number] TAKE 1 Un jb TARTRATE 50 9-23 TABLET BY ity of mg tablet 00:00: [facility] TWICE Medical DAILY Branch METOPROLOL 0 Yes [id number] TAKE 1 Un jb TARTRATE 50 9-23 TABLET BY ity of mg tablet 00:00: TWICE Medical DAILY Branch METOPROLOL 0 Yes [id number] TAKE 1 Un jb TARTRATE 50 9-23 TABLET BY ity of mg tablet 00:00: [facility] TWICE Medical DAILY Branch METOPROLOL Yes [id number] TAKE 1 Un jb TARTRATE 50 9-23 TABLET BY ity of mg tablet 00:00: [facility] TWICE Medical DAILY Branch METOPROLOL 0 Yes [id number] TAKE 1 Un jb TARTRATE 50 9-23 TABLET BY ity of mg tablet 00:00: [facility] TWICE Medical DAILY Branch METOPROLOL 2022-0 Yes [id number] TAKE 1 Un jb TARTRATE 50 9-23 TABLET BY ity of mg tablet 00:00: MOUTH TWICE Medical DAILY Branch METOPROLOL 2021-0 Yes [id number] TAKE 1 Un jb TARTRATE 50 9-23 TABLET BY ity of mg tablet 00:00: MOUTH TWICE Medical DAILY Branch METOPROLOL 2021-0 Yes [id number] TAKE 1 Un jb TARTRATE 50 9-23 TABLET BY ity of mg tablet 00:00: MOUTH TWICE Medical DAILY Branch METOPROLOL 2021-0 Yes [id number] TAKE 1 Un jb TARTRATE 50 9-23 TABLET BY ity of mg tablet 00:00: MOUTH TWICE Medical DAILY Branch METOPROLOL 2021-0 Yes [id number] TAKE 1 Un jb TARTRATE 50 9-23 TABLET BY ity of mg tablet 00:00: [facility] TWICE Medical DAILY Branch METOPROLOL 2021-0 Yes [id number] TAKE 1 Un jb TARTRATE 50 9-23 TABLET BY ity of mg tablet 00:00: [facility] TWICE Medical DAILY Branch METOPROLOL 2021-0 Yes [id number] TAKE 1 Un jb TARTRATE 50 9-23 TABLET BY ity of mg tablet 00:00: [facility] TWICE Medical DAILY Branch METOPROLOL 2021-0 Yes [id number] TAKE 1 Un jb TARTRATE 50 9-23 TABLET BY ity of mg tablet 00:00: [facility] TWICE Medical DAILY Branch METOPROLOL 2021-0 Yes [id number] TAKE 1 Un jb TARTRATE 50 9-23 TABLET BY ity of mg tablet 00:00: [facility] TWICE Medical DAILY Branch METOPROLOL 2021-0 Yes [id number] TAKE 1 Un jb TARTRATE 50 9-23 TABLET BY ity of mg tablet 00:00: MOUTH TWICE Medical DAILY Branch METOPROLOL 2021-0 Yes [id number] TAKE 1 Un jb TARTRATE 50 9-23 TABLET BY ity of mg tablet 00:00: [facility] TWICE Medical DAILY Branch METOPROLOL 2021-0 Yes [id number] TAKE 1 Un jb TARTRATE 50 9-23 TABLET BY ity of mg tablet 00:00: [facility] TWICE Medical DAILY Branch METOPROLOL 2021-0 Yes [id number] TAKE 1 Un jb TARTRATE 50 9-23 TABLET BY ity of mg tablet 00:00: MOUTH [place] 00 TWICE Medical DAILY Branch METOPROLOL 2021-0 Yes [id number] TAKE 1 Un jb TARTRATE 50 9-23 TABLET BY ity of mg tablet 00:00: MOUTH [place] 00 TWICE Medical DAILY Branch METOPROLOL 2021-0 Yes [id number] TAKE 1 Un jb TARTRATE 50 9-23 TABLET BY ity of mg tablet 00:00: MOUTH [place] 00 TWICE Medical DAILY Branch METOPROLOL 2021-0 Yes [id number] TAKE 1 Un jb TARTRATE 50 9-23 TABLET BY ity of mg tablet 00:00: MOUTH [place] 00 TWICE Medical DAILY Branch METOPROLOL 0 Yes [id number] TAKE 1 Un jb TARTRATE 50 9-23 TABLET BY ity of mg tablet 00:00: MOUTH [place] 00 TWICE Medical DAILY Branch TAMSULOSIN 2021- No [id number] .4mg TAKE 1 [facility] 0.4 mg 24 11-15 CAPSULE BY ity of hr capsule 00:00: 00:00 MOUTH [place] 00 :00 DAILY Medical Branch nystatin 0 Yes [id number] Apply to [facility] 100,000 9-16 area(s) 2 ity of unit/gram 00:00: (two) [place] powder 00 times Medical daily. Branch enalapril 0 Yes [id number] 20mg Take 1 Uni vers 20 mg 9-16 tablet by ity of tablet 00:00: mouth in [place] 00 the Medical morning. Branch furosemide Yes [id number] 40mg Take 1 [facility] (LASIX) 40 9-16 tablet by ity of mg tablet 00:00: mouth in [facility] 00 the Medical morning. Branch nystatin 0 Yes [id number] Apply to [facility] 100,000 9-16 area(s) 2 ity of unit/gram 00:00: (two) [place] powder 00 times Medical daily. Branch enalapril 0 Yes [id number] 20mg Take 1 Uni vers 20 mg 9-16 tablet by ity of tablet 00:00: mouth in [place] 00 the Medical morning. Branch furosemide Yes [id number] 40mg Take 1 [facility] (LASIX) 40 9-16 tablet by ity of mg tablet 00:00: mouth in [facility] 00 the Medical morning. Branch nystatin 2021-0 Yes [id number] Apply to [facility] 100,000 9-16 area(s) 2 ity of unit/gram 00:00: (two) [place] powder 00 times Medical daily. Branch enalapril 2021-0 Yes [id number] 20mg Take 1 Uni vers 20 mg 9-16 tablet by ity of tablet 00:00: mouth in [place] 00 the Medical morning. Branch furosemide 2021-0 Yes [id number] 40mg Take 1 [facility] (LASIX) 40 9-16 tablet by ity of mg tablet 00:00: mouth [facility] 00 the Medical morning. Branch nystatin 2021-0 Yes [id number] Apply to [facility] 100,000 916 area(s) 2 ity of unit/gram 00:00: (two) [place] powder 00 times Medical daily. Branch enalapril 2021-0 Yes [id number] 20mg Take 1 Uni vers 20 mg 9-16 tablet by ity of tablet 00:00: mouth in [place] the Medical morning. Branch furosemide 2021-0 Yes [id number] 40mg Take 1 [facility] (LASIX) 40 9-16 tablet by ity of mg tablet 00:00: mouth in [facility] the Medical morning. Branch nystatin 2021-0 Yes [id number] Apply to [facility] 100,000 9-16 area(s) 2 ity of unit/gram 00:00: (two) [place] powder 00 times Medical daily. Branch enalapril 2021-0 Yes [id number] 20mg Take 1 [facility] vers 20 mg 9-16 tablet by ity of tablet 00:00: mouth in [place] 00 the Medical morning. Branch furosemide 2021-0 Yes [id number] 40mg Take 1 [facility] (LASIX) 40 9-16 tablet by ity of mg tablet 00:00: mouth in [facility] 00 the Medical morning. Branch nystatin 2021-0 Yes [id number] Apply to [facility] 100,000 9-16 area(s) 2 ity of unit/gram 00:00: (two) [place] powder 00 times Medical daily. Branch enalapril 2-0 Yes [id number] 20mg Take 1 [facility] vers 20 mg 9-16 tablet by ity of tablet 00:00: mouth in [place] 00 the Medical morning. Branch furosemide 2-0 Yes [id number] 40mg Take 1 [facility] (LASIX) 40 9-16 tablet by ity of mg tablet 00:00: mouth [place] the Medical morning. Branch nystatin 2021-0 Yes [id number] Apply to [facility] 100,000 9-16 area(s) 2 ity of unit/gram 00:00: (two) [place] powder 00 times Medical daily. Branch enalapril 2021-0 Yes [id number] 20mg Take 1 [facility] vers 20 mg 9-16 tablet by ity of tablet 00:00: mouth in [place] 00 the Medical morning. Branch furosemide 2021-0 Yes [id number] 40mg Take 1 [facility] (LASIX) 40 9-16 tablet by ity of mg tablet 00:00: mouth [place] the Medical morning. Branch nystatin 2021-0 Yes [id number] Apply to [facility] 100,000 916 area(s) 2 ity of unit/gram 00:00: (two) [place] powder 00 times Medical daily. Branch enalapril 2021-0 Yes [id number] 20mg Take 1 [facility] vers 20 mg 9-16 tablet by ity of tablet 00:00: mouth in [place] 00 the Medical morning. Branch furosemide 2021-0 Yes [id number] 40mg Take 1 [facility] (LASIX) 40 9-16 tablet by [facility]y of mg tablet 00:00: mouth [place] the Medical morning. Branch nystatin 2021-0 Yes [id number] Apply to [facility] 100,000 9-16 area(s) 2 ity of unit/gram 00:00: (two) [place] powder 00 times Medical daily. Branch enalapril 2021-0 Yes [id number] 20mg Take 1 [facility] vers 20 mg 9-16 tablet by ity of tablet 00:00: mouth in [place] 00 the Medical morning. Branch furosemide 2021-0 Yes [id number] 40mg Take 1 [facility] (LASIX) 40 9-16 tablet by ity of mg tablet 00:00: [place] 00 the Medical morning. Branch nystatin 2021-0 Yes [id number] Apply to [facility] 100,000 9-16 area(s) 2 ity of unit/gram 00:00: (two) [place] powder 00 times Medical daily. Branch enalapril 2021-0 Yes [id number] 20mg Take 1 [facility] vers 20 mg 9-16 tablet by ity of tablet 00:00: mouth in [place] 00 the Medical morning. Branch furosemide 2021-0 Yes [id number] 40mg Take 1 [facility] (LASIX) 40 9-16 tablet by ity of mg tablet 00:00: mouth [facility] 00 the Medical morning. Branch nystatin 2021-0 Yes [id number] Apply to [facility] 100,000 916 area(s) 2 ity of unit/gram 00:00: (two) [place] powder 00 times Medical daily. Branch enalapril 2021-0 Yes [id number] 20mg Take 1 Uni vers 20 mg 9-16 tablet by ity of tablet 00:00: mouth in [place] 00 the Medical morning. Branch furosemide 2021-0 Yes [id number] 40mg Take 1 [facility] (LASIX) 40 9-16 tablet by ity of mg tablet 00:00: mouth in [facility] s the Medical morning. Branch nystatin 2021-0 Yes [id number] Apply to [facility] 100,000 916 area(s) 2 ity of unit/gram 00:00: (two) [place] powder 00 times Medical daily. Branch enalapril 2021-0 Yes [id number] 20mg Take 1 Uni vers 20 mg 9-16 tablet by ity of tablet 00:00: mouth in [place] 00 the Medical morning. Branch furosemide 2021-0 Yes [id number] 40mg Take 1 [facility] (LASIX) 40 9-16 tablet by ity of mg tablet 00:00: mouth in [facility] s the Medical morning. Branch nystatin 2021-0 Yes [id number] Apply to [facility] 100,000 9-16 area(s) 2 ity of unit/gram 00:00: (two) [place] powder 00 times Medical daily. Branch enalapril 2021-0 Yes [id number] 20mg Take 1 Uni vers 20 mg 9-16 tablet by ity of tablet 00:00: mouth in [place] 00 the Medical morning. Branch furosemide 2021-0 Yes [id number] 40mg Take 1 [facility] (LASIX) 40 9-16 tablet by ity of mg tablet 00:00: mouth in [facility] s 00 the Medical morning. Branch nystatin 2021-0 Yes [id number] Apply to [facility] 100,000 9-16 area(s) 2 ity of unit/gram 00:00: (two) [place] powder 00 times Medical daily. Branch enalapril 2021-0 Yes [id number] 20mg Take 1 [facility] vers 20 mg 9-16 tablet by ity of tablet 00:00: mouth in [place] 00 the Medical morning. Branch furosemide 2021-0 Yes [id number] 40mg Take 1 [facility] (LASIX) 40 9-16 tablet by ity of mg tablet 00:00: [place] the Medical morning. Branch nystatin 2021-0 Yes [id number] Apply to [facility] 100,000 9-16 area(s) 2 ity of unit/gram 00:00: (two) [place] powder 00 times Medical daily. Branch furosemide 2021-0 Yes [id number] 40mg Take 1 [facility] (LASIX) 40 9-16 tablet by ity of mg tablet 00:00: [place] the Medical morning. Branch nystatin 2021-0 Yes [id number] [facility] 9-16 area(s) 2 ity of unit/gram 00:00: (two) [place] powder 00 times Medical daily. Branch furosemide 2021-0 Yes [id number] 40mg Take 1 [facility] (LASIX) 40 9-16 tablet by [facility]y of mg tablet 00:00: [place] the Medical morning. Branch nystatin 2021-0 Yes [id number] Apply to [facility] 100,000 9-16 area(s) 2 ity of unit/gram 00:00: (two) [place] powder 00 times Medical daily. Branch furosemide 2021-0 Yes [id number] 40mg Take 1 [facility] (LASIX) 40 9-16 tablet by ity of mg tablet 00:00: mouth [place] the Medical morning. Branch nystatin 2021-0 Yes [id number] Apply to [facility] 100,000 9-16 area(s) 2 ity of unit/gram 00:00: (two) [place] powder 00 times Medical daily. Branch furosemide 2021-0 Yes [id number] 40mg Take 1 [facility] (LASIX) 40 9-16 tablet by ity of mg tablet 00:00: [place] 00 the Medical morning. Branch nystatin 2021-0 Yes [id number] Apply to [facility] 100,000 9-16 area(s) 2 ity of unit/gram 00:00: (two) [place] powder 00 times Medical daily. Branch furosemide 2021-0 Yes [id number] 40mg Take 1 [facility] (LASIX) 40 9-16 tablet by ity of mg tablet 00:00: mouth [place] 00 the Medical morning. Branch nystatin 2021-0 Yes [id number] Apply to [facility] 100,000 9-16 area(s) 2 ity of unit/gram 00:00: (two) [place] powder 00 times Medical daily. Branch furosemide 2021-0 Yes [id number] 40mg Take 1 [facility] (LASIX) 40 9-16 tablet by ity of mg tablet 00:00: mouth [place] 00 the Medical morning. Branch nystatin 2021-0 Yes [id number] Apply to [facility] 100,000 9-16 area(s) 2 ity of unit/gram 00:00: (two) [place] powder 00 times Medical daily. Branch furosemide 2021-0 Yes [id number] 40mg Take 1 [facility] (LASIX) 40 9-16 tablet by ity of mg tablet 00:00: mouth [place] 00 the Medical morning. Branch nystatin 2021-0 Yes [id number] Apply to [facility] 100,000 9-16 area(s) 2 ity of unit/gram 00:00: (two) [place] powder 00 times Medical daily. Branch furosemide 2021-0 Yes [id number] 40mg Take 1 [facility] (LASIX) 40 9-16 tablet by ity of mg tablet 00:00: mouth [place] 00 the Medical morning. Branch nystatin 2021-0 Yes [id number] Apply to [facility] 100,000 9-16 area(s) 2 ity of unit/gram 00:00: (two) [place] powder 00 times Medical daily. Branch furosemide 2021-0 Yes [id number] 40mg Take 1 [facility] (LASIX) 40 9-16 tablet by ity of mg tablet 00:00: mouth [place] 00 the Medical morning. Branch nystatin 2021-0 Yes [id number] Apply to [facility] 100,000 9-16 area(s) 2 ity of unit/gram 00:00: (two) [place] powder 00 times Medical daily. Branch furosemide 2-0 Yes [id number] 40mg Take 1 [facility] (LASIX) 40 9-16 tablet by ity of mg tablet 00:00: mouth [place] 00 the Medical morning. Branch nystatin 2021-0 Yes [id number] Apply to [facility] 100,000 9-16 area(s) 2 ity of unit/gram 00:00: (two) [place] powder 00 times Medical daily. Branch furosemide 2021-0 Yes [id number] 40mg Take 1 [facility] (LASIX) 40 9-16 tablet by ity of mg tablet 00:00: mouth [place] 00 the Medical morning. Branch nystatin 2021-0 Yes [id number] Apply to [facility] 100,000 9-16 area(s) 2 ity of unit/gram 00:00: (two) [place] powder 00 times Medical daily. Branch furosemide 2021-0 Yes [id number] 40mg Take 1 [facility] (LASIX) 40 9-16 tablet by ity of mg tablet 00:00: mouth [place] 00 the Medical morning. Branch enalapril 2021-2- No [id number] 20mg Take 1 Un jb 20 mg 9-16 12-07 tablet by ity of tablet 00:00: 00:00 mouth in [place] 00 :00 the Medical morning. Branch enalapril 2021-0 2- No [id number] 20mg Take 1 Un jb 20 mg 9-16 12-07 tablet by ity of tablet 00:00: 00:00 mouth in [place] 00 :00 the Medical morning. Branch enalapril 2021-0 2- No [id number] 20mg Take 1 Un jb 20 mg 9-16 12-07 tablet by ity of tablet 00:00: 00:00 mouth in [place] 00 :00 the Medical morning. Branch clotrimazol 2021-0 2- No [id number] Apply to [facility] e 1 % 9-16 10- area(s) 2 ity of solution 00:00: 04:59 (two) [place] 00 :00 times Medical daily for Branch 14 days. clotrimazol 2021-0 2021- No [id number] Apply to [facility] e 1 % 9-16 10- area(s) 2 ity of solution 00:00: 04:59 (two) [place] 00 :00 times Medical daily for Branch 14 days. clotrimazol 2021-0 2021- No [id number] Apply to [facility] e 1 % 11-08 area(s) 2 ity of solution 00:00: 04:59 (two) [place] 00 :00 times Medical daily for Branch 14 days. clotrimazol 2021- No [id number] Apply to [facility] e 1 % 9-16 11-23 area(s) 2 ity of solution 00:00: 04:59 (two) [place] 00 :00 times Medical daily for Branch 14 days. PREGABALIN 2021-0 Yes [id number] TAKE 1 [facility] 75 mg 8-16 CAPSULE BY ity of capsule 00:00: MOUTH [place] THREE Medical TIMES Branch DAILY PREGABALIN 2021-0 Yes [id number] TAKE 1 [facility] 75 mg 8-16 CAPSULE BY ity of capsule 00:00: [facility] THREE Medical TIMES Branch DAILY PREGABALIN 2021-0 Yes [id number] TAKE 1 [facility] 75 mg 8-16 CAPSULE BY ity of capsule 00:00: [facility] THREE Medical TIMES Branch DAILY PREGABALIN 2-0 Yes [id number] TAKE 1 [facility] 75 mg 8-16 CAPSULE BY ity of capsule 00:00: MOUTH [place] THREE Medical TIMES Branch DAILY PREGABALIN 2-0 Yes [id number] TAKE 1 [facility] 75 mg 8-16 CAPSULE BY ity of capsule 00:00: [facility] THREE Medical TIMES Branch DAILY PREGABALIN 2-0 Yes [id number] TAKE 1 [facility] 75 mg 8-16 CAPSULE BY ity of capsule 00:00: [facility] THREE Medical TIMES Branch DAILY PREGABALIN 2-0 Yes [id number] TAKE 1 [facility] 75 mg 8-16 CAPSULE BY ity of capsule 00:00: MOUTH [place] THREE Medical TIMES Branch DAILY PREGABALIN 2-0 Yes [id number] TAKE 1 [facility] 75 mg 8-16 CAPSULE BY ity of capsule 00:00: [facility] THREE Medical TIMES Branch DAILY PREGABALIN 2-0 Yes [id number] TAKE 1 [facility] 75 mg 8-16 CAPSULE BY ity of capsule 00:00: [facility] THREE Medical TIMES Branch DAILY PREGABALIN 2-0 Yes [id number] TAKE 1 [facility] 75 mg 8-16 CAPSULE BY ity of capsule 00:00: [facility] THREE Medical TIMES Branch DAILY PREGABALIN 2-0 Yes [id number] TAKE 1 [facility] 75 mg 8-16 CAPSULE BY ity of capsule 00:00: MOUTH [place] 00 THREE Medical TIMES Branch DAILY PREGABALIN 2021-0 2021- No [id number] TAKE 1 [facility] 75 mg 8-16 12-07 CAPSULE BY ity of capsule 00:00: 00:00 MOUTH [place] 00 :00 THREE Medical TIMES Branch DAILY PREGABALIN 2021-0 2021- No [id number] TAKE 1 [facility] 75 mg 8-16 12-07 CAPSULE BY ity of capsule 00:00: 00:00 MOUTH [place] 00 :00 THREE Medical TIMES Branch DAILY PREGABALIN 2021-0 2021- No [id number] TAKE 1 [facility] 75 mg 8-16 12-07 CAPSULE BY ity of capsule 00:00: 00:00 MOUTH [place] 00 :00 THREE Medical TIMES Branch DAILY PREGABALIN 2021-0 2021- No [id number] TAKE 1 [facility] 75 mg 8-16 12-07 CAPSULE BY ity of capsule 00:00: 00:00 MOUTH [place] 00 :00 THREE Medical TIMES Branch DAILY PREGABALIN 2021-0 2021- No [id number] TAKE 1 [facility] 75 mg 8-16 12-07 CAPSULE BY ity of capsule 00:00: 00:00 MOUTH [place] 00 :00 THREE Medical TIMES Branch DAILY PREGABALIN 2-0 2021- No [id number] TAKE 1 [facility] 75 mg 8-16 12-07 CAPSULE BY ity of capsule 00:00: 00:00 MOUTH [place] 00 :00 THREE Medical TIMES Branch DAILY NOVOLOG 2021-0 Yes [id number] INJECT 40 [facility] FLEXPEN 7-22 UNITS ity of U-100 00:00: UNDER THE [place] INSULIN 100 00 SKIN THREE Me dical unit/mL (3 TIMES Branch mL) DAILY. injection NOVOLOG 2021-0 Yes [id number] INJECT 40 [facility] FLEXPEN 7-22 UNITS ity of U-100 00:00: UNDER THE [place] INSULIN 100 00 SKIN THREE Me dical unit/mL (3 TIMES Branch mL) DAILY. injection NOVOLOG 2021-0 Yes [id number] INJECT 40 [facility] FLEXPEN 7-22 UNITS ity of U-100 00:00: UNDER THE [place] INSULIN 100 00 SKIN THREE Me dical unit/mL (3 TIMES Branch mL) DAILY. injection NOVOLOG 2021-0 Yes [id number] INJECT 40 [facility] FLEXPEN 7-22 UNITS ity of U-100 00:00: UNDER THE [place] INSULIN 100 00 SKIN THREE Me dical unit/mL (3 TIMES Branch mL) DAILY. injection NOVOLOG 0 Yes [id number] INJECT 40 [facility] FLEXPEN 7-22 UNITS ity of U-100 00:00: UNDER THE [place] INSULIN 100 00 SKIN THREE Me dical unit/mL (3 TIMES Branch mL) DAILY. injection NOVOLOG 0 Yes [id number] INJECT 40 [facility] FLEXPEN 7-22 UNITS ity of U-100 00:00: UNDER THE [place] INSULIN 100 00 SKIN THREE Me dical unit/mL (3 TIMES Branch mL) DAILY. injection NOVOLOG 0 Yes [id number] INJECT 40 [facility] FLEXPEN 7-22 UNITS ity of U-100 00:00: UNDER THE [place] INSULIN 100 00 SKIN THREE Me dical unit/mL (3 TIMES Branch mL) DAILY. injection NOVOLOG Yes [id number] INJECT 40 [facility] FLEXPEN 7-22 UNITS ity of U-100 00:00: UNDER THE [place] INSULIN 100 00 SKIN THREE Me dical unit/mL (3 TIMES Branch mL) DAILY. injection NOVOLOG Yes [id number] INJECT 40 [facility] FLEXPEN 7-22 UNITS ity of U-100 00:00: UNDER THE [place] INSULIN 100 00 SKIN THREE Me dical unit/mL (3 TIMES Branch mL) DAILY. injection NOVOLOG 0 Yes [id number] INJECT 40 [facility] FLEXPEN 7-22 UNITS ity of U-100 00:00: UNDER THE [place] INSULIN 100 00 SKIN THREE Me dical unit/mL (3 TIMES Branch mL) DAILY. injection NOVOLOG 2021- No [id number] INJECT 40 [facility] FLEXPEN 7-22 12-06 UNITS ity of U-100 00:00: 00:00 UNDER THE [place] INSULIN 100 00 :00 SKIN THREE Me dical unit/mL (3 TIMES Branch mL) DAILY. injection montelukast Yes [id number] 10mg Take 1 [facility] 10 mg 6-23 tablet by ity of tablet 00:00: mouth daily. Medical Branch metoprolol 0 Yes [id number] 50mg Take 1 Un jb tartrate 50 6-23 tablet by ity of mg tablet 00:00: mouth 2 [place] 00 (two) Medical times Branch daily. tamsulosin 2021-0 Yes [id number] .4mg Take 1 [facility] 0.4 mg 24 6-23 9102 capsule by ity of hr capsule 00:00: mouth [place] 00 daily. Medical Branch finasteride 2021-0 Yes [id number] 5mg Take 1 [facility] 5 mg tablet 6-23 9102 tablet by ity of 00:00: mouth [place] 00 daily. Medical Branch albuterol 2021-0 Yes [id number] 2.5mg Inhale 3 Univers 2.5 mg /3 6-23 mL every 6 ity of mL (0.083 00:00: (six) [place] %) 00 hours as Medical nebulizer needed for Bran ch solution Wheezing or Shortness of Breath. allopurinoL 2021-0 Yes [id number] 100mg Take 1 [facility] 100 mg 6-23 tablet by ity of tablet 00:00: mouth [place] 00 daily. Medical Branch montelukast 2021-0 Yes [id number] 10mg Take 1 [facility] 10 mg 6-23 tablet by ity of tablet 00:00: mouth [place] 00 daily. Medical Branch metoprolol 2021-0 Yes [id number] 50mg Take 1 Un jb tartrate 50 6-23 tablet by ity of mg tablet 00:00: mouth 2 [place] 00 (two) Medical times Branch daily. tamsulosin 2021-0 Yes [id number] .4mg Take 1 [facility] 0.4 mg 24 6-23 9102 capsule by ity of hr capsule 00:00: mouth [place] 00 daily. Medical Branch finasteride 2021-0 Yes [id number] 5mg Take 1 [facility] 5 mg tablet 6-23 9102 tablet by ity of 00:00: mouth [place] 00 daily. Medical Branch albuterol 2021-0 Yes [id number] 2.5mg Inhale 3 [facility] 2.5 mg /3 6-23 mL every 6 ity of mL (0.083 00:00: (six) [place] %) 00 hours as Medical nebulizer needed for Bran ch solution Wheezing or Shortness of Breath. allopurinoL 2021-0 Yes [id number] 100mg Take 1 [facility] 100 mg 6-23 tablet by ity of tablet 00:00: mouth [place] 00 daily. Medical Branch montelukast 2021-0 Yes [id number] 10mg Take 1 [facility] 10 mg 6-23 tablet by ity of tablet 00:00: mouth [place] 00 daily. Medical Branch tamsulosin 0 Yes [id number] .4mg Take 1 [facility] 0.4 mg 24 6-23 9102 capsule by ity of hr capsule 00:00: mouth [place] 00 daily. Medical Branch finasteride 0 Yes [id number] 5mg Take 1 [facility] 5 mg tablet 6-23 9102 tablet by ity of 00:00: mouth [place] 00 daily. Medical Branch albuterol 2021-0 Yes [id number] 2.5mg Inhale 3 [facility] 2.5 mg /3 6-23 mL every 6 ity of mL (0.083 00:00: (six) [place] %) 00 hours as Medical nebulizer needed for Bran ch solution Wheezing or Shortness of Breath. allopurinoL 0 Yes [id number] 100mg Take 1 [facility] 100 mg 6-23 tablet by ity of tablet 00:00: mouth [place] 00 daily. Medical Branch montelukast 2021-0 Yes [id number] 10mg Take 1 [facility] 10 mg 6-23 tablet by ity of tablet 00:00: mouth [place] 00 daily. Medical Branch finasteride 0 Yes [id number] 5mg Take 1 [facility] 5 mg tablet 6-23 9102 tablet by ity of 00:00: mouth [place] 00 daily. Medical Branch albuterol 0 Yes [id number] 2.5mg Inhale 3 [facility] 2.5 mg /3 6-23 mL every 6 ity of mL (0.083 00:00: (six) [place] %) 00 hours as Medical nebulizer needed for Bran ch solution Wheezing or Shortness of Breath. allopurinoL 2021-0 Yes [id number] 100mg Take 1 [facility] 100 mg 6-23 tablet by ity of tablet 00:00: mouth [place] 00 daily. Medical Branch montelukast 2021-0 Yes [id number] 10mg Take 1 [facility] 10 mg 6-23 tablet by ity of tablet 00:00: mouth [place] 00 daily. Medical Branch finasteride 2021-0 Yes [id number] 5mg Take 1 [facility] 5 mg tablet 6-23 9102 tablet by ity of 00:00: mouth [place] 00 daily. Medical Branch albuterol 2021-0 Yes [id number] 2.5mg Inhale 3 [facility] 2.5 mg /3 6-23 mL every 6 ity of mL (0.083 00:00: (six) [place] %) 00 hours as Medical nebulizer needed for Bran ch solution Wheezing or Shortness of Breath. allopurinoL 2021-0 Yes [id number] 100mg Take 1 [facility] 100 mg 6-23 tablet by ity of tablet 00:00: mouth [place] 00 daily. Medical Branch albuterol 2021-0 Yes [id number] 2.5mg Inhale 3 [facility] 2.5 mg /3 6-23 mL every 6 ity of mL (0.083 00:00: (six) [place] %) 00 hours as Medical nebulizer needed for Bran ch solution Wheezing or Shortness of Breath. albuterol 2021-0 Yes [id number] 2.5mg Inhale 3 [facility] 2.5 mg /3 6-23 mL every 6 ity of mL (0.083 00:00: (six) [place] %) 00 hours as Medical nebulizer needed for Bran ch solution Wheezing or Shortness of Breath. albuterol 0 Yes [id number] 2.5mg Inhale 3 [facility] 2.5 mg /3 6-23 mL every 6 ity of mL (0.083 00:00: (six) [place] %) 00 hours as Medical nebulizer needed for Bran ch solution Wheezing or Shortness of Breath. albuterol 0 Yes [id number] 2.5mg Inhale 3 [facility] 2.5 mg /3 6-23 mL every 6 ity of mL (0.083 00:00: (six) [place] %) 00 hours as Medical nebulizer needed for Bran ch solution Wheezing or Shortness of Breath. albuterol 0 Yes [id number] 2.5mg Inhale 3 [facility] 2.5 mg /3 6-23 mL every 6 ity of mL (0.083 00:00: (six) [place] %) 00 hours as Medical nebulizer needed for Bran ch solution Wheezing or Shortness of Breath. albuterol 2021-0 Yes [id number] 2.5mg Inhale 3 [facility] 2.5 mg /3 6-23 mL every 6 ity of mL (0.083 00:00: (six) [place] %) 00 hours as Medical nebulizer needed for Bran ch solution Wheezing or Shortness of Breath. albuterol 2021-0 Yes [id number] 2.5mg Inhale 3 [facility] 2.5 mg /3 6-23 mL every 6 ity of mL (0.083 00:00: ([facility]) [place] %) 00 hours as Medical nebulizer needed for Bran ch solution Wheezing or Shortness of Breath. albuterol 2021-0 Yes [id number] 2.5mg Inhale 3 [facility] 2.5 mg /3 6-23 mL every 6 ity of mL (0.083 00:00: ([facility]) [place] %) 00 hours as Medical nebulizer needed for Bran ch solution Wheezing or Shortness of Breath. albuterol 2021-0 Yes [id number] 2.5mg Inhale 3 [facility] 2.5 mg /3 6-23 mL every 6 ity of mL (0.083 00:00: ([facility]) [place] %) 00 hours as Medical nebulizer needed for Bran ch solution Wheezing or Shortness of Breath. albuterol 2021-0 Yes [id number] 2.5mg Inhale 3 [facility] 2.5 mg /3 6-23 mL every 6 ity of mL (0.083 00:00: ([facility]) [place] %) 00 hours as Medical nebulizer needed for Bran ch solution Wheezing or Shortness of Breath. albuterol 2021-0 Yes [id number] 2.5mg Inhale 3 [facility] 2.5 mg /3 6-23 mL every 6 ity of mL (0.083 00:00: (six) [place] %) 00 hours as Medical nebulizer needed for Bran ch solution Wheezing or Shortness of Breath. albuterol 2021-0 Yes [id number] 2.5mg Inhale 3 [facility] 2.5 mg /3 6-23 mL every 6 ity of mL (0.083 00:00: (six) [place] %) 00 hours as Medical nebulizer needed for Bran ch solution Wheezing or Shortness of Breath. albuterol 2021-0 Yes [id number] 2.5mg Inhale 3 [facility] 2.5 mg /3 6-23 mL every 6 ity of mL (0.083 00:00: (six) [place] %) 00 hours as Medical nebulizer needed for Bran ch solution Wheezing or Shortness of Breath. albuterol 2021-0 Yes [id number] 2.5mg Inhale 3 [facility] 2.5 mg /3 6-23 mL every 6 ity of mL (0.083 00:00: (six) [place] %) 00 hours as Medical nebulizer needed for Bran ch solution Wheezing or Shortness of Breath. albuterol 2-0 Yes [id number] 2.5mg Inhale 3 [facility] 2.5 mg /3 6-23 mL every 6 ity of mL (0.083 00:00: (six) [place] %) 00 hours as Medical nebulizer needed for Bran ch solution Wheezing or Shortness of Breath. albuterol 2-0 Yes [id number] 2.5mg Inhale 3 [facility] 2.5 mg /3 6-23 mL every 6 ity of mL (0.083 00:00: (six) [place] %) 00 hours as Medical nebulizer needed for Bran ch solution Wheezing or Shortness of Breath. albuterol 2021-0 Yes [id number] 2.5mg Inhale 3 [facility] 2.5 mg /3 6-23 mL every 6 ity of mL (0.083 00:00: ([facility]) [place] %) 00 hours as Medical nebulizer needed for Bran ch solution Wheezing or Shortness of Breath. albuterol 2021-0 Yes [id number] 2.5mg Inhale 3 [facility] 2.5 mg /3 6-23 mL every 6 ity of mL (0.083 00:00: ([facility]) [place] %) 00 hours as Medical nebulizer needed for Bran ch solution Wheezing or Shortness of Breath. albuterol 2-0 Yes [id number] 2.5mg Inhale 3 [facility] 2.5 mg /3 6-23 mL every 6 ity of mL (0.083 00:00: (six) [place] %) 00 hours as Medical nebulizer needed for Bran ch solution Wheezing or Shortness of Breath. albuterol 2-0 Yes [id number] 2.5mg Inhale 3 [facility] 2.5 mg /3 6-23 mL every 6 ity of mL (0.083 00:00: (six) [place] %) 00 hours as Medical nebulizer needed for Bran ch solution Wheezing or Shortness of Breath. albuterol 2-0 Yes [id number] 2.5mg Inhale 3 [facility] 2.5 mg /3 6-23 mL every 6 ity of mL (0.083 00:00: (six) [place] %) 00 hours as Medical nebulizer needed for Bran ch solution Wheezing or Shortness of Breath. montelukast 2021- No [id number] 10mg Take 1 [facility] 10 mg 08-15 tablet by ity of tablet 00:00: 00:00 mouth [place] 00 :00 daily. Medical Branch finasteride 2021- No [id number] 5mg Take 1 [facility] 5 mg tablet 08-15 9102 tablet by it y of 00:00: 00:00 mouth [place] 00 :00 daily. Medical Branch allopurinoL 2021- No [id number] 100mg Take 1 [facility] 100 mg 08-15 tablet by ity of tablet 00:00: 00:00 mouth [place] 00 :00 daily. Medical Branch metoprolol 2021- No [id number] 50mg Take 1 U nivers tartrate 50 08-15 tablet by it y of mg tablet 00:00: 00:[place] 00 :[place] (two) Medical times Branch daily. metoprolol 2021- No [id number] 50mg Take 1 U nivers tartrate 50 08-15 tablet by it y of mg tablet 00:00: 00:[place] 00 :[place] (two) Medical times Branch daily. tamsulosin 2021- No [id number] .4mg Take 1 [facility] 0.4 mg 24 08-15 9102 capsule by ity of hr capsule 00:00: 00:00 mouth [place] 00 :00 daily. Medical Branch hydroCHLORO 2021- No [id number] 25mg Take 1 [facility] thiazide 25 08-15 tablet by it y of mg tablet 00:00: 00:00 mouth [place] 00 :00 daily. Medical Branch enalapril 2021- No [id number] 10mg Take 1 Un jb 10 mg 08-15 tablet by ity of tablet 00:00: 00:00 mouth [place] 00 :00 daily. Medical Branch clotrimazol Yes [id number] [facility]-betametha 5-25 area(s) 2 ity of sone 1-0.05 00:00: (two) [place] % lotion 00 times Medical daily. Branch Blood-Gluco 2-0 Yes [id number] Use as [facility] se 5-25 directed ity of Meter,Angie 00:00: [place] nuous 00 Medical (DEXCOM G6 Branch OPERATIONS INTERN) Misc Blood-Gluco 2022-0 Yes [id number] Use as Univers se Sensor 5-25 directed ity of (DEXCOM G6 00:00: [place] SENSOR) 00 Medical [place] Branch Blood-Gluco 2022-0 Yes [id number] Use as Univers se 5-25 directed ity of Transmitter 00:00: [place] (DEXCOM G6 00 Medical TRANSMITTER Branch ) [place] clotrimazol 2022-0 Yes [id number] Apply to [facility] e-betametha 5-25 area(s) 2 ity of sone 1-0.05 00:00: (two) [place] % lotion 00 times Medical daily. Branch Blood-Gluco 2022-0 Yes [id number] Use as [facility] se 5-25 directed ity of Meter,Angie 00:00: [place] nuous 00 Medical (DEXCOM G6 Branch OPERATIONS INTERN) Misc Blood-Gluco 2022-0 Yes [id number] Use as [facility] se Sensor 5-25 directed ity of (DEXCOM G6 00:00: [place] SENSOR) 00 Medical [place] [facility] Blood-Gluco 2022-0 Yes [id number] Use as [facility] se 5-25 directed ity of Transmitter 00:00: [place] (DEXCOM G6 00 Medical TRANSMITTER Branch ) [place] clotrimazol 2022-0 Yes [id number] Apply to [facility] e-betametha 5-25 area(s) 2 ity of sone 1-0.05 00:00: (two) [place] % lotion 00 times Medical daily. Branch Blood-Gluco 2022-0 Yes [id number] Use as [facility] se 5-25 directed ity of Meter,Angie 00:00: [place] nuous 00 Medical (DEXCOM G6 Branch OPERATIONS INTERN) Misc Blood-Gluco 2022-0 Yes [id number] Use as [facility] se Sensor 5-25 directed ity of (DEXCOM G6 00:00: [place] SENSOR) 00 Medical [place] [facility] Blood-Gluco 2022-0 Yes [id number] Use as [facility] se 5-25 directed ity of Transmitter 00:00: [place] (DEXCOM G6 00 Medical TRANSMITTER Branch ) [place] clotrimazol 2022-0 Yes [id number] Apply to [facility] e-betametha 5-25 area(s) 2 ity of sone 1-0.05 00:00: (two) [place] % lotion 00 times Medical daily. Branch Blood-Gluco 2022-0 Yes [id number] Use as [facility] se 5-25 directed ity of Meter,Angie 00:00: [place] nuous 00 Medical (DEXCOM G6 Branch OPERATIONS INTERN) Misc Blood-Gluco 2022-0 Yes [id number] Use as [facility] se Sensor 5-25 directed ity of (DEXCOM G6 00:00: [place] SENSOR) 00 Medical [place] [facility] Blood-Gluco 2022-0 Yes [id number] Use as [facility] se 5-25 directed ity of Transmitter 00:00: [place] (DEXCOM G6 00 Medical TRANSMITTER Branch ) [place] clotrimazol 2022-0 Yes [id number] Apply to [facility] e-betametha 5-25 area(s) 2 ity of sone 1-0.05 00:00: (two) [place] % lotion 00 times Medical daily. Branch Blood-Gluco 2022-0 Yes [id number] Use as [facility] se 5-25 directed ity of Meter,Angie 00:00: [place] nuous 00 Medical (DEXCOM G6 Branch OPERATIONS INTERN) Misc Blood-Gluco 2022-0 Yes [id number] Use as [facility] se Sensor 5-25 directed ity of (DEXCOM G6 00:00: [place] SENSOR) 00 Medical [place] [facility] Blood-Gluco 2022-0 Yes [id number] Use as [facility] se 5-25 directed ity of Transmitter 00:00: [place] (DEXCOM G6 00 Medical TRANSMITTER Branch ) [place] clotrimazol 2022-0 Yes [id number] Apply to Univers e-betametha 5-25 area(s) 2 ity of sone 1-0.05 00:00: (two) [place] % lotion 00 times Medical daily. Branch Blood-Gluco 2022-0 Yes [id number] Use as [facility] se 5-25 directed ity of Meter,Angie 00:00: [place] nuous 00 Medical (DEXCOM G6 Branch OPERATIONS INTERN) Misc Blood-Gluco 2022-0 Yes [id number] Use as [facility] se Sensor 5-25 directed ity of (DEXCOM G6 00:00: [place] SENSOR) 00 Medical [place] Branch Blood-Gluco 2022-0 Yes [id number] Use as [facility] se 5-25 directed ity of Transmitter 00:00: [place] (DEXCOM G6 00 Medical TRANSMITTER Branch ) [place] clotrimazol 2022-0 Yes [id number] Apply to [facility] e-betametha 5-25 area(s) 2 ity of sone 1-0.05 00:00: (two) [place] % lotion 00 times Medical daily. Branch Blood-Gluco 2022-0 Yes [id number] Use as [facility] se 5-25 directed ity of Meter,Angie 00:00: [place] nuous 00 Medical (DEXCOM G6 Branch OPERATIONS INTERN) Misc Blood-Gluco 2022-0 Yes [id number] Use as [facility] se Sensor 5-25 directed ity of (DEXCOM G6 00:00: [place] SENSOR) 00 Medical [place] Branch Blood-Gluco 2022-0 Yes [id number] Use as [facility] se 5-25 directed ity of Transmitter 00:00: [place] (DEXCOM G6 00 Medical TRANSMITTER Branch ) [place] clotrimazol 2022-0 Yes [id number] Apply to Univers e-betametha 5-25 area(s) 2 ity of sone 1-0.05 00:00: (two) [place] % lotion 00 times Medical daily. Branch Blood-Gluco 2022-0 Yes [id number] Use as [facility] se 5-25 directed ity of Meter,Angie 00:00: [place] nuous 00 Medical (DEXCOM G6 Branch OPERATIONS INTERN) Misc Blood-Gluco 2022-0 Yes [id number] Use as [facility] se Sensor 5-25 directed ity of (DEXCOM G6 00:00: [place] SENSOR) 00 Medical [place] [facility] Blood-Gluco 2022-0 Yes [id number] Use as [facility] se 5-25 directed ity of Transmitter 00:00: [place] (DEXCOM G6 00 Medical TRANSMITTER Branch ) [place] clotrimazol 2022-0 Yes [id number] Apply to Univers e-betametha 5-25 area(s) 2 ity of sone 1-0.05 00:00: (two) [place] % lotion 00 times Medical daily. Branch Blood-Gluco 2022-0 Yes [id number] Use as Univers se 5-25 directed ity of Meter,Angie 00:00: [place] nuous 00 Medical (DEXCOM G6 Branch OPERATIONS INTERN) Misc Blood-Gluco 2022-0 Yes [id number] Use as Univers se Sensor 5-25 directed ity of (DEXCOM G6 00:00: [place] SENSOR) 00 Medical [place] [facility] Blood-Gluco 2022-0 Yes [id number] Use as Univers se 5-25 directed ity of Transmitter 00:00: [place] (DEXCOM G6 00 Medical TRANSMITTER Branch ) [place] clotrimazol 2022-0 Yes [id number] Apply to Univers e-betametha 5-25 area(s) 2 ity of sone 1-0.05 00:00: (two) [place] % lotion 00 times Medical daily. Branch Blood-Gluco 2022-0 Yes [id number] Use as Univers se 5-25 directed ity of Meter,Angie 00:00: [place] nuous 00 Medical (DEXCOM G6 Branch OPERATIONS INTERN) Misc Blood-Gluco 2022-0 Yes [id number] Use as Univers se Sensor 5-25 directed ity of (DEXCOM G6 00:00: [place] SENSOR) 00 Medical [place] Branch Blood-Gluco 2022-0 Yes [id number] Use as Univers se 5-25 directed ity of Transmitter 00:00: [place] (DEXCOM G6 00 Medical TRANSMITTER Branch ) [place] clotrimazol 2022-0 Yes [id number] Apply to Univers e-betametha 5-25 area(s) 2 ity of sone 1-0.05 00:00: (two) [place] % lotion 00 times Medical daily. Branch Blood-Gluco 2022-0 Yes [id number] Use as Univers se 5-25 directed ity of Meter,Angie 00:00: [place] nuous 00 Medical (DEXCOM G6 Branch OPERATIONS INTERN) Misc Blood-Gluco 2022-0 Yes [id number] Use as Univers se Sensor 5-25 directed ity of (DEXCOM G6 00:00: [place] SENSOR) 00 Medical [place] Branch Blood-Gluco 2022-0 Yes [id number] Use as Univers se 5-25 directed ity of Transmitter 00:00: [place] (DEXCOM G6 00 Medical TRANSMITTER Branch ) [place] clotrimazol 2022-0 Yes [id number] Apply to Univers e-betametha 5-25 area(s) 2 ity of sone 1-0.05 00:00: (two) [place] % lotion 00 times Medical daily. Branch Blood-Gluco 2022-0 Yes [id number] Use as Univers se 5-25 directed ity of Meter,Angie 00:00: [place] nuous 00 Medical (DEXCOM G6 Branch OPERATIONS INTERN) Misc Blood-Gluco 2022-0 Yes [id number] Use as Univers se Sensor 5-25 directed ity of (DEXCOM G6 00:00: [place] SENSOR) 00 Medical [place] Branch Blood-Gluco 2022-0 Yes [id number] Use as Univers se 5-25 directed ity of Transmitter 00:00: [place] (DEXCOM G6 00 Medical TRANSMITTER Branch ) [place] clotrimazol 2022-0 Yes [id number] Apply to Univers e-betametha 5-25 area(s) 2 ity of sone 1-0.05 00:00: (two) [place] % lotion 00 times Medical daily. Branch Blood-Gluco 2022-0 Yes [id number] Use as Univers se 5-25 directed ity of Meter,Angie 00:00: [place] nuous 00 Medical (DEXCOM G6 Branch OPERATIONS INTERN) Misc Blood-Gluco 2022-0 Yes [id number] Use as Univers se Sensor 5-25 directed ity of (DEXCOM G6 00:00: [place] SENSOR) 00 Medical [place] Branch Blood-Gluco 2022-0 Yes [id number] Use as Univers se 5-25 directed ity of Transmitter 00:00: [place] (DEXCOM G6 00 Medical TRANSMITTER Branch ) [place] clotrimazol 2022-0 Yes [id number] Apply to Univers e-betametha 5-25 area(s) 2 ity of sone 1-0.05 00:00: (two) [place] % lotion 00 times Medical daily. Branch Blood-Gluco 2022-0 Yes [id number] Use as Univers se 5-25 directed ity of Meter,Angie 00:00: [place] nuous 00 Medical (DEXCOM G6 Branch OPERATIONS INTERN) Misc Blood-Gluco 2022-0 Yes [id number] Use as Univers se Sensor 5-25 directed ity of (DEXCOM G6 00:00: [place] SENSOR) 00 Medical [place] Branch Blood-Gluco 2022-0 Yes [id number] Use as Univers se 5-25 directed ity of Transmitter 00:00: [place] (DEXCOM G6 00 Medical TRANSMITTER Branch ) [place] clotrimazol 2022-0 Yes [id number] Apply to Univers e-betametha 5-25 area(s) 2 ity of sone 1-0.05 00:00: (two) [place] % lotion 00 times Medical daily. Branch Blood-Gluco 2022-0 Yes [id number] Use as Univers se 5-25 directed ity of Meter,Angie 00:00: [place] nuous 00 Medical (DEXCOM G6 Branch OPERATIONS INTERN) Misc Blood-Gluco 2022-0 Yes [id number] Use as Univers se Sensor 5-25 directed ity of (DEXCOM G6 00:00: [place] SENSOR) 00 Medical [place] Branch Blood-Gluco 2022-0 Yes [id number] Use as Univers se 5-25 directed ity of Transmitter 00:00: [place] (DEXCOM G6 00 Medical TRANSMITTER Branch ) [place] clotrimazol 2022-0 Yes [id number] Apply to Univers e-betametha 5-25 area(s) 2 ity of sone 1-0.05 00:00: (two) [place] % lotion 00 times Medical daily. Branch Blood-Gluco 2022-0 Yes [id number] Use as Univers se 5-25 directed ity of Meter,Angie 00:00: [place] nuous 00 Medical (DEXCOM G6 Branch OPERATIONS INTERN) Misc Blood-Gluco 2022-0 Yes [id number] Use as Univers se Sensor 5-25 directed ity of (DEXCOM G6 00:00: [place] SENSOR) 00 Medical [place] Branch Blood-Gluco 2022-0 Yes [id number] Use as Univers se 5-25 directed ity of Transmitter 00:00: [place] (DEXCOM G6 00 Medical TRANSMITTER Branch ) [place] clotrimazol 2022-0 Yes [id number] Apply to Univers e-betametha 5-25 area(s) 2 ity of sone 1-0.05 00:00: (two) [place] % lotion 00 times Medical daily. Branch Blood-Gluco 2022-0 Yes [id number] Use as Univers se 5-25 directed ity of Meter,Angie 00:00: [place] nuous 00 Medical (DEXCOM G6 Branch OPERATIONS INTERN) Misc Blood-Gluco 2022-0 Yes [id number] Use as Univers se Sensor 5-25 directed ity of (DEXCOM G6 00:00: [place] SENSOR) 00 Medical [place] Branch Blood-Gluco 2022-0 Yes [id number] Use as Univers se 5-25 directed ity of Transmitter 00:00: [place] (DEXCOM G6 00 Medical TRANSMITTER Branch ) [place] clotrimazol 2022-0 Yes [id number] Apply to Univers e-betametha 5-25 area(s) 2 ity of sone 1-0.05 00:00: (two) [place] % lotion 00 times Medical daily. Branch Blood-Gluco 2022-0 Yes [id number] Use as Univers se 5-25 directed ity of Meter,Angie 00:00: [place] nuous 00 Medical (DEXCOM G6 Branch OPERATIONS INTERN) Misc Blood-Gluco 202-0 Yes [id number] Use as Univers se Sensor 5-25 directed ity of (DEXCOM G6 00:00: [place] SENSOR) 00 Medical [place] Branch Blood-Gluco 2022-0 Yes [id number] Use as Univers se 5-25 directed ity of Transmitter 00:00: [place] (DEXCOM G6 00 Medical TRANSMITTER Branch ) [place] clotrimazol 2022-0 Yes [id number] Apply to Univers e-betametha 5-25 area(s) 2 ity of sone 1-0.05 00:00: (two) [place] % lotion 00 times Medical daily. Branch Blood-Gluco 2022-0 Yes [id number] Use as Univers se 5-25 directed ity of Meter,Angie 00:00: [place] nuous 00 Medical (DEXCOM G6 Branch OPERATIONS INTERN) Misc Blood-Gluco 2022-0 Yes [id number] Use as Univers se Sensor 5-25 directed ity of (DEXCOM G6 00:00: [place] SENSOR) 00 Medical [place] Branch Blood-Gluco 2022-0 Yes [id number] Use as Univers se 5-25 directed ity of Transmitter 00:00: [place] (DEXCOM G6 00 Medical TRANSMITTER Branch ) [place] clotrimazol 2022-0 Yes [id number] Apply to Univers e-betametha 5-25 area(s) 2 ity of sone 1-0.05 00:00: (two) [place] % lotion 00 times Medical daily. Branch Blood-Gluco 2022-0 Yes [id number] Use as [facility] se 5-25 directed ity of Meter,Angie 00:00: [place] nuous 00 Medical (DEXCOM G6 Branch OPERATIONS INTERN) Misc Blood-Gluco 2022-0 Yes [id number] Use as Univers se Sensor 5-25 directed ity of (DEXCOM G6 00:00: [place] SENSOR) 00 Medical [place] Branch Blood-Gluco 2022-0 Yes [id number] Use as [facility] se 5-25 directed ity of Transmitter 00:00: [place] (DEXCOM G6 00 Medical TRANSMITTER Branch ) [place] clotrimazol 2021-0 Yes [id number] Apply to Univers e-betametha 5-25 area(s) 2 ity of sone 1-0.05 00:00: (two) [place] % lotion 00 times Medical daily. Branch Blood-Gluco 2021-0 Yes [id number] Use as [facility] se 5-25 directed ity of Meter,Angie 00:00: [place] nuous 00 Medical (DEXCOM G6 Branch OPERATIONS INTERN) Misc Blood-Gluco 2021-0 Yes [id number] Use as [facility] se Sensor 5-25 directed ity of (DEXCOM G6 00:00: [place] SENSOR) 00 Medical [place] Branch Blood-Gluco 2022-0 Yes [id number] Use as [facility] se 5-25 directed ity of Transmitter 00:00: [place] (DEXCOM G6 00 Medical TRANSMITTER Branch ) [place] clotrimazol 2-0 Yes [id number] Apply to Univers e-betametha 5-25 area(s) 2 ity of sone 1-0.05 00:00: (two) [place] % lotion 00 times Medical daily. Branch Blood-Gluco 2-0 Yes [id number] Use as [facility] se 5-25 directed ity of Meter,Angie 00:00: [place] nuous 00 Medical (DEXCOM G6 Branch OPERATIONS INTERN) Misc Blood-Gluco 2022-0 Yes [id number] Use as [facility] se Sensor 5-25 directed ity of (DEXCOM G6 00:00: [place] SENSOR) 00 Medical [place] Branch Blood-Gluco 2022-0 Yes [id number] Use as [facility] se 5-25 directed ity of Transmitter 00:00: [place] (DEXCOM G6 00 Medical TRANSMITTER Branch ) [facility] clotrimazol 2022-0 Yes [id number] Apply to Univers e-betametha 5-25 area(s) 2 ity of sone 1-0.05 00:00: (two) [place] % lotion 00 times Medical daily. Branch Blood-Gluco 2022-0 Yes [id number] Use as [facility] se 5-25 directed ity of Meter,Angie 00:00: [place] nuous 00 Medical (DEXCOM G6 Branch OPERATIONS INTERN) Misc Blood-Gluco 2022-0 Yes [id number] Use as [facility] se Sensor 5-25 directed ity of (DEXCOM G6 00:00: [place] SENSOR) 00 Medical [place] Branch Blood-Gluco 2022-0 Yes [id number] Use as [facility] se 5-25 directed ity of Transmitter 00:00: [place] (DEXCOM G6 00 Medical TRANSMITTER Branch ) [facility] clotrimazol 2022-0 Yes [id number] Apply to Univers e-betametha 5-25 area(s) 2 ity of sone 1-0.05 00:00: (two) [place] % lotion 00 times Medical daily. Branch Blood-Gluco 2022-0 Yes [id number] Use as [facility] se 5-25 directed ity of Meter,Angie 00:00: [place] nuous 00 Medical (DEXCOM G6 Branch OPERATIONS INTERN) Misc Blood-Gluco 2022-0 Yes [id number] Use as [facility] se Sensor 5-25 directed ity of (DEXCOM G6 00:00: [place] SENSOR) 00 Medical [place] Branch Blood-Gluco 2022-0 Yes [id number] Use as [facility] se 5-25 directed ity of Transmitter 00:00: [place] (DEXCOM G6 00 Medical TRANSMITTER Branch ) [place] clotrimazol 2022-0 Yes [id number] Apply to Univers e-betametha 5-25 area(s) 2 ity of sone 1-0.05 00:00: (two) [place] % lotion 00 times Medical daily. Branch Blood-Gluco 2022-0 Yes [id number] Use as [facility] se 5-25 directed ity of Meter,Angie 00:00: [place] nuous 00 Medical (DEXCOM G6 Branch OPERATIONS INTERN) Misc Blood-Gluco 2022-0 Yes [id number] Use as [facility] se Sensor 5-25 directed ity of (DEXCOM G6 00:00: [place] SENSOR) 00 Medical [place] Branch Blood-Gluco 2022-0 Yes [id number] Use as [facility] se 5-25 directed ity of Transmitter 00:00: [place] (DEXCOM G6 00 Medical TRANSMITTER Branch ) [facility] clotrimazol 0 Yes [id number] Apply to Univers e-betametha 5-25 area(s) 2 ity of sone 1-0.05 00:00: (two) [place] % lotion 00 times Medical daily. Branch Blood-Gluco 0 Yes [id number] Use as [facility] se 5-25 directed ity of Meter,Angie 00:00: [place] nuous 00 Medical (DEXCOM G6 Branch OPERATIONS INTERN) Misc Blood-Gluco 0 Yes [id number] Use as Univers se Sensor 5-25 directed ity of (DEXCOM G6 00:00: [place] SENSOR) 00 Medical [place] Branch Blood-Gluco 0 Yes [id number] Use as [facility] se 5-25 directed ity of Transmitter 00:00: [place] (DEXCOM G6 00 Medical TRANSMITTER Branch ) Sylvia Insulin 0 Yes [id number] INJECT 50 [facility] Glargine 4-25 UNITS ity of (LANTUS 00:00: UNDER THE [place] SOLOSTAR 00 SKIN EVERY Medic al U-100 NIGHT AT Branch INSULIN) BEDTIME. 100 unit/mL (3 mL) injection Insulin Yes [id number] INJECT 50 [facility] Glargine 4-25 UNITS ity of (LANTUS 00:00: UNDER THE [place] SOLOSTAR 00 SKIN EVERY Medic al U-100 NIGHT AT Branch INSULIN) BEDTIME. 100 unit/mL (3 mL) injection Insulin Yes [id number] INJECT 50 [facility] Glargine 4-25 UNITS ity of (LANTUS 00:00: UNDER THE [place] SOLOSTAR 00 SKIN EVERY Medic al U-100 NIGHT AT Branch INSULIN) BEDTIME. 100 unit/mL (3 mL) injection Insulin Yes [id number] INJECT 50 [facility] Glargine 4-25 UNITS ity of (LANTUS 00:00: UNDER THE [place] SOLOSTAR 00 SKIN EVERY Medic al U-100 NIGHT AT Branch INSULIN) BEDTIME. 100 unit/mL (3 mL) injection Insulin 2021- No [id number] INJECT 50 [facility] Glargine 4-25 11-02 UNITS ity of (LANTUS 00:00: 00:00 [place] 00 :00 SKIN EVERY Medic al U-100 NIGHT AT Branch INSULIN) BEDTIME. 100 unit/mL (3 mL) injection esomeprazol Yes [id number] TAKE 1 [facility] e 20 mg 3-07 CAPSULE BY ity of capsule 00:00: MOUTH [place] 00 EVERY Medical Branch esomeprazol Yes [id number] TAKE 1 [facility] e 20 mg 3-07 CAPSULE BY ity of capsule 00:00: MOUTH [place] EVERY DAY Medical Branch esomeprazol Yes [id number] TAKE 1 [facility] e 20 mg 3-07 CAPSULE BY ity of capsule 00:00: MOUTH [place] 00 EVERY DAY Medical Branch esomeprazol Yes [id number] TAKE 1 [facility] e 20 mg 3-07 CAPSULE BY ity of capsule 00:00: MOUTH [place] 00 EVERY Medical Branch esomeprazol Yes [id number] TAKE 1 [facility] e 20 mg 3-07 CAPSULE BY ity of capsule 00:00: MOUTH [place] [facility] Branch esomeprazol Yes [id number] TAKE 1 [facility] e 20 mg 3-07 CAPSULE BY ity of capsule 00:00: MOUTH [place] 00 EVERY DAY Medical Branch esomeprazol Yes [id number] TAKE 1 [facility] e 20 mg 3-07 CAPSULE BY ity of capsule 00:00: MOUTH [place] 00 EVERY Medical Branch esomeprazol Yes [id number] TAKE 1 [facility] e 20 mg 3-07 CAPSULE BY ity of capsule 00:00: MOUTH [place] 00 DAY Medical Branch esomeprazol Yes [id number] TAKE 1 [facility] e 20 mg 3-07 CAPSULE BY ity of capsule 00:00: MOUTH [place] 00 EVERY DAY Medical Branch esomeprazol Yes [id number] TAKE 1 [facility] e 20 mg 3-07 CAPSULE BY ity of capsule 00:00: MOUTH [place] 00 EVERY DAY Medical Branch esomeprazol Yes [id number] TAKE 1 [facility] e 20 mg 3-07 CAPSULE BY ity of capsule 00:00: MOUTH [place] 00 EVERY DAY Medical Branch esomeprazol Yes [id number] TAKE 1 [facility] e 20 mg 3-07 CAPSULE BY ity of capsule 00:00: MOUTH [place] 00 EVERY DAY Medical Branch esomeprazol Yes [id number] TAKE 1 [facility] e 20 mg 3-07 CAPSULE BY ity of capsule 00:00: MOUTH [place] EVERY DAY Medical Branch esomeprazol 0 Yes [id number] TAKE 1 [facility] e 20 mg 3-07 CAPSULE BY ity of capsule 00:00: MOUTH EVERY DAY Medical Branch esomeprazol 0 Yes [id number] TAKE 1 [facility] e 20 mg 3-07 CAPSULE BY ity of capsule 00:00: MOUTH [place] EVERY DAY Medical Branch esomeprazol Yes [id number] TAKE 1 [facility] e 20 mg 3-07 CAPSULE BY ity of capsule 00:00: MOUTH EVERY DAY Medical Branch esomeprazol Yes [id number] TAKE 1 [facility] e 20 mg 3-07 CAPSULE BY ity of capsule 00:00: [facility] DAY Medical Branch esomeprazol Yes [id number] TAKE 1 Univers e 20 mg 3-07 CAPSULE BY ity of capsule 00:00: MOUTH DAY Medical Branch esomeprazol 3- No [id number] TAKE 1 [facility] e 20 mg 3-07 -03 CAPSULE BY ity o f capsule 00:00: 00:00 MOUTH [place] 00 :00 EVERY DAY Medical Branch Lancing Yes [id number] Use as Uni vers Device with 11-21 directed. ity of Lancets 00:00: June (ONE TOUCH 00 substitute Med ical DELICA) Kit brand Branch preferred by insurance Blood-Gluco Yes [id number] Use as Univers se Meter 11-21 directed. ity of (ONETOUCH 00:00: June [place] VERIO FLEX 00 substitute Med ical START) Kit brand Branch preferred by insurance blood sugar Yes [id number] Test 4x [facility] diagnostic 11-21 daily for ity of (ONETOUCH 00:00: diagnosis [place] as VERIO TEST 00 code Medical STRIPS) E11.9. [place] Branch strip substitute brand preferred by insurance Lancing Yes [id number] Use as Uni vers Device with 11-21 directed. ity of Lancets 00:00: June [place] (ONE TOUCH 00 substitute Med ical DELICA) Kit brand Branch preferred by insurance Blood-Gluco Yes [id number] Use as Univers se Meter 9-29 directed. ity of (ONETOUCH 00:00: June [place] VERIO FLEX 00 substitute Med ical START) Kit brand Branch preferred by insurance blood sugar Yes [id number] Test 4x [facility] diagnostic 929 daily for ity of (ONETOUCH 00:00: diagnosis [place] VERIO TEST 00 code Medical STRIPS) E11.9. May Branch strip substitute brand preferred by insurance Lancing Yes [id number] Use as Uni vers Device with 929 directed. ity of Lancets 00:00: June (ONE TOUCH 00 substitute Med ical DELICA) Kit brand Branch preferred by insurance Blood-Gluco Yes [id number] Use as [facility] se Meter 9-29 directed. ity of (ONETOUCH 00:00: June [place] VERIO FLEX 00 substitute Med ical START) Kit brand Branch preferred by insurance blood sugar Yes [id number] Test 4x [facility] diagnostic 9 daily for ity of (ONETOUCH 00:00: diagnosis [place] VERIO TEST 00 code Medical STRIPS) E11.9. May Branch strip substitute brand preferred by insurance Lancing Yes [id number] Use as Uni vers Device with 929 directed. ity of Lancets 00:00: June (ONE TOUCH 00 substitute Med ical DELICA) Kit brand Branch preferred by insurance Blood-Gluco Yes [id number] Use as [facility] se Meter 9-29 directed. ity of (ONETOUCH 00:00: June [place] VERIO FLEX 00 substitute Med ical START) Kit brand Branch preferred by insurance blood sugar Yes [id number] Test 4x [facility] diagnostic 929 daily for ity of (ONETOUCH 00:00: diagnosis [place] VERIO TEST 00 code Medical STRIPS) E11.9. May Branch strip substitute brand preferred by insurance Lancing Yes [id number] Use as Uni vers Device with 9-29 directed. ity of Lancets 00:00: June [place] (ONE TOUCH 00 substitute Med ical DELICA) Kit brand Branch preferred by insurance Blood-Gluco Yes [id number] Use as [facility] se Meter 9-29 directed. ity of (ONETOUCH 00:00: June [place] VERIO FLEX 00 substitute Med ical START) Kit brand Branch preferred by insurance blood sugar 0 Yes [id number] Test 4x [facility] diagnostic 929 daily for ity of (ONETOUCH 00:00: diagnosis [place] VERIO TEST 00 code Medical STRIPS) E11.9. May Branch strip substitute brand preferred by insurance Lancing Yes [id number] Use as Uni vers Device with 929 directed. ity of Lancets 00:00: June [place] (ONE TOUCH 00 substitute Med ical DELICA) Kit brand Branch preferred by insurance Blood-Gluco Yes [id number] Use as [facility] se Meter 929 directed. ity of (ONETOUCH 00:00: June [place] VERIO FLEX 00 substitute Med ical START) Kit brand Branch preferred by insurance blood sugar Yes [id number] Test 4x [facility] diagnostic 929 daily for ity of (ONETOUCH 00:00: diagnosis [place] VERIO TEST 00 code Medical STRIPS) E11.9. May Branch strip substitute brand preferred by insurance Lancing Yes [id number] Use as Uni vers Device with 929 directed. ity of Lancets 00:00: June [place] (ONE TOUCH 00 substitute Med ical DELICA) Kit brand Branch preferred by insurance Blood-Gluco Yes [id number] Use as [facility] se Meter 9-29 directed. ity of (ONETOUCH 00:00: June [place] VERIO FLEX 00 substitute Med ical START) Kit brand Branch preferred by insurance blood sugar 0 Yes [id number] Test 4x [facility] diagnostic 929 daily for ity of (ONETOUCH 00:00: diagnosis [place] VERIO TEST 00 code Medical STRIPS) E11.9. May Branch strip substitute brand preferred by insurance Lancing 0 Yes [id number] Use as Uni vers Device with 9-29 directed. ity of Lancets 00:00: June [place] (ONE TOUCH 00 substitute Med ical DELICA) Kit brand Branch preferred by insurance Blood-Gluco 0 Yes [id number] Use as [facility] se Meter 929 directed. ity of (ONETOUCH 00:00: June [place] VERIO FLEX 00 substitute Med ical START) Kit brand Branch preferred by insurance blood sugar Yes [id number] Test 4x [facility] diagnostic 929 daily for ity of (ONETOUCH 00:00: diagnosis [place] VERIO TEST 00 code Medical STRIPS) E11.9. May Branch strip substitute brand preferred by insurance Lancing Yes [id number] Use as Uni vers Device with 9 directed. ity of Lancets 00:00: June [place] (ONE TOUCH 00 substitute Med ical DELICA) Kit brand Branch preferred by insurance Blood-Gluco Yes [id number] Use as [facility] se Meter 9 directed. ity of (ONETOUCH 00:00: June [place] VERIO FLEX 00 substitute Med ical START) Kit brand Branch preferred by insurance blood sugar Yes [id number] Test 4x [facility] diagnostic 9 daily for ity of (ONETOUCH 00:00: diagnosis [place] VERIO TEST 00 code Medical STRIPS) E11.9. May Branch strip substitute brand preferred by insurance Lancing Yes [id number] Use as Uni vers Device with 9 directed. ity of Lancets 00:00: June [place] (ONE TOUCH 00 substitute Med ical DELICA) Kit brand Branch preferred by insurance Blood-Gluco Yes [id number] Use as [facility] se Meter 9 directed. ity of (ONETOUCH 00:00: June [place] VERIO FLEX 00 substitute Med ical START) Kit brand Branch preferred by insurance blood sugar 0 Yes [id number] Test 4x [facility] diagnostic 9 daily for ity of (ONETOUCH 00:00: diagnosis [place] VERIO TEST 00 code Medical STRIPS) E11.9. May Branch strip substitute brand preferred by insurance Lancing Yes [id number] Use as Uni vers Device with 9 directed. ity of Lancets 00:00: June [place] (ONE TOUCH 00 substitute Med ical DELICA) Kit brand Branch preferred by insurance Blood-Gluco Yes [id number] Use as [facility] se Meter 9 directed. ity of (ONETOUCH 00:00: June [place] VERIO FLEX 00 substitute Med ical START) Kit brand Branch preferred by insurance blood sugar 0 Yes [id number] Test 4x [facility] diagnostic 9 daily for ity of (ONETOUCH 00:00: diagnosis [place] VERIO TEST 00 code Medical STRIPS) E11.9. May Branch strip substitute brand preferred by insurance Lancing Yes [id number] Use as Uni vers Device with 9 directed. ity of Lancets 00:00: June (ONE TOUCH 00 substitute Med ical DELICA) Kit brand Branch preferred by insurance Blood-Gluco Yes [id number] Use as [facility] se Meter 929 directed. ity of (ONETOUCH 00:00: June [place] VERIO FLEX 00 substitute Med ical START) Kit brand Branch preferred by insurance blood sugar Yes [id number] Test 4x [facility] diagnostic 9 daily for ity of (ONETOUCH 00:00: diagnosis [place] VERIO TEST 00 code Medical STRIPS) E11.9. May Branch strip substitute brand preferred by insurance Lancing Yes [id number] Use as Uni vers Device with 9 directed. ity of Lancets 00:00: June (ONE TOUCH 00 substitute Med ical DELICA) Kit brand Branch preferred by insurance Blood-Gluco Yes [id number] Use as [facility] se Meter 929 directed. ity of (ONETOUCH 00:00: June [place] VERIO FLEX 00 substitute Med ical START) Kit brand Branch preferred by insurance blood sugar Yes [id number] Test 4x [facility] diagnostic 9 daily for ity of (ONETOUCH 00:00: diagnosis [place] VERIO TEST 00 code Medical STRIPS) E11.9. May Branch strip substitute brand preferred by insurance Lancing Yes [id number] Use as Uni vers Device with 9 directed. ity of Lancets 00:00: June (ONE TOUCH 00 substitute Med ical DELICA) Kit brand Branch preferred by insurance Blood-Gluco Yes [id number] Use as [facility] se Meter 929 directed. ity of (ONETOUCH 00:00: June [place] VERIO FLEX 00 substitute Med ical START) Kit brand Branch preferred by insurance blood sugar 0 Yes [id number] Test 4x [facility] diagnostic 929 daily for ity of (ONETOUCH 00:00: diagnosis [place] VERIO TEST 00 code Medical STRIPS) E11.9. May Branch strip substitute brand preferred by insurance Lancing Yes [id number] Use as Uni vers Device with 929 directed. ity of Lancets 00:00: June (ONE TOUCH 00 substitute Med ical DELICA) Kit brand Branch preferred by insurance Blood-Gluco Yes [id number] Use as [facility] se Meter 929 directed. ity of (ONETOUCH 00:00: June [place] VERIO FLEX 00 substitute Med ical START) Kit brand Branch preferred by insurance blood sugar 0 Yes [id number] Test 4x [facility] diagnostic 9 daily for ity of (ONETOUCH 00:00: diagnosis [place] VERIO TEST 00 code Medical STRIPS) E11.9. May Branch strip substitute brand preferred by insurance Lancing Yes [id number] Use as Uni vers Device with 9 directed. ity of Lancets 00:00: June [place] (ONE TOUCH 00 substitute Med ical DELICA) Kit brand Branch preferred by insurance Blood-Gluco Yes [id number] Use as [facility] se Meter 9 directed. ity of (ONETOUCH 00:00: June [place] VERIO FLEX 00 substitute Med ical START) Kit brand Branch preferred by insurance blood sugar Yes [id number] Test 4x [facility] diagnostic 9 daily for ity of (ONETOUCH 00:00: diagnosis [place] VERIO TEST 00 code Medical STRIPS) E11.9. May Branch strip substitute brand preferred by insurance Lancing Yes [id number] Use as Uni vers Device with 929 directed. ity of Lancets 00:00: June (ONE TOUCH 00 substitute Med ical DELICA) Kit brand Branch preferred by insurance Blood-Gluco Yes [id number] Use as [facility] se Meter 929 directed. ity of (ONETOUCH 00:00: June [place] VERIO FLEX 00 substitute Med ical START) Kit brand Branch preferred by insurance blood sugar 0 Yes [id number] Test 4x [facility] diagnostic 9 daily for ity of (ONETOUCH 00:00: diagnosis [place] VERIO TEST 00 code Medical STRIPS) E11.9. May Branch strip substitute brand preferred by insurance Lancing Yes [id number] Use as Uni vers Device with 929 directed. ity of Lancets 00:00: June [place] (ONE TOUCH 00 substitute Med ical DELICA) Kit brand Branch preferred by insurance Blood-Gluco Yes [id number] Use as [facility] se Meter 9 directed. ity of (ONETOUCH 00:00: June [place] VERIO FLEX 00 substitute Med ical START) Kit brand Branch preferred by insurance blood sugar 0 Yes [id number] Test 4x [facility] diagnostic 9 daily for ity of (ONETOUCH 00:00: diagnosis [place] VERIO TEST 00 code Medical STRIPS) E11.9. May Branch strip substitute brand preferred by insurance Lancing Yes [id number] Use as Uni vers Device with 9 directed. ity of Lancets 00:00: June [place] (ONE TOUCH 00 substitute Med ical DELICA) Kit brand Branch preferred by insurance Blood-Gluco Yes [id number] Use as [facility] se Meter 9 directed. ity of (ONETOUCH 00:00: June [place] VERIO FLEX 00 substitute Med ical START) Kit brand Branch preferred by insurance blood sugar Yes [id number] Test 4x [facility] diagnostic 9 daily for ity of (ONETOUCH 00:00: diagnosis [place] VERIO TEST 00 code Medical STRIPS) E11.9. May Branch strip substitute brand preferred by insurance Lancing Yes [id number] Use as Uni vers Device with 9 directed. ity of Lancets 00:00: June [place] (ONE TOUCH 00 substitute Med ical DELICA) Kit brand Branch preferred by insurance Blood-Gluco Yes [id number] Use as [facility] se Meter 9 directed. ity of (ONETOUCH 00:00: June [place] VERIO FLEX 00 substitute Med ical START) Kit brand Branch preferred by insurance blood sugar 0 Yes [id number] Test 4x [facility] diagnostic 9 daily for ity of (ONETOUCH 00:00: diagnosis [place] VERIO TEST 00 code Medical STRIPS) E11.9. May Branch strip substitute brand preferred by insurance Lancing 0 Yes [id number] Use as Uni vers Device with 929 directed. ity of Lancets 00:00: June [place] (ONE TOUCH 00 substitute Med ical DELICA) Kit brand Branch preferred by insurance Blood-Gluco Yes [id number] Use as [facility] se Meter 929 directed. ity of (ONETOUCH 00:00: June [place] VERIO FLEX 00 substitute Med ical START) Kit brand Branch preferred by insurance blood sugar Yes [id number] Test 4x [facility] diagnostic 929 daily for ity of (ONETOUCH 00:00: diagnosis [place] VERIO TEST 00 code Medical STRIPS) E11.9. May Branch strip substitute brand preferred by insurance Lancing Yes [id number] Use as Uni vers Device with 9 directed. ity of Lancets 00:00: June [place] (ONE TOUCH 00 substitute Med ical DELICA) Kit brand Branch preferred by insurance Blood-Gluco Yes [id number] Use as [facility] se Meter 929 directed. ity of (ONETOUCH 00:00: June [place] VERIO FLEX 00 substitute Med ical START) Kit brand Branch preferred by insurance blood sugar Yes [id number] Test 4x [facility] diagnostic 9 daily for ity of (ONETOUCH 00:00: diagnosis [place] VERIO TEST 00 code Medical STRIPS) E11.9. May Branch strip substitute brand preferred by insurance Lancing Yes [id number] Use as Uni vers Device with 9 directed. ity of Lancets 00:00: June [place] (ONE TOUCH 00 substitute Med ical DELICA) Kit brand Branch preferred by insurance Blood-Gluco Yes [id number] Use as [facility] se Meter 929 directed. ity of (ONETOUCH 00:00: June [place] VERIO FLEX 00 substitute Med ical START) Kit brand Branch preferred by insurance blood sugar 0 Yes [id number] Test 4x [facility] diagnostic 9 daily for ity of (ONETOUCH 00:00: diagnosis [place] VERIO TEST 00 code Medical STRIPS) E11.9. May Branch strip substitute brand preferred by insurance Lancing Yes [id number] Use as Uni vers Device with 9 directed. ity of Lancets 00:00: June [place] (ONE TOUCH 00 substitute Med ical DELICA) Kit brand Branch preferred by insurance Blood-Gluco Yes [id number] Use as [facility] se Meter 929 directed. ity of (ONETOUCH 00:00: June [place] VERIO FLEX 00 substitute Med ical START) Kit brand Branch preferred by insurance blood sugar Yes [id number] Test 4x [facility] diagnostic 929 daily for ity of (ONETOUCH 00:00: diagnosis [place] VERIO TEST 00 code Medical STRIPS) E11.9. May Branch strip substitute brand preferred by insurance Lancing Yes [id number] Use as Uni vers Device with 9 directed. ity of Lancets 00:00: June [place] (ONE TOUCH 00 substitute Med ical DELICA) Kit brand Branch preferred by insurance Blood-Gluco Yes [id number] Use as [facility] se Meter 9 directed. ity of (ONETOUCH 00:00: June [place] VERIO FLEX 00 substitute Med ical START) Kit brand Branch preferred by insurance blood sugar Yes [id number] Test 4x [facility] diagnostic 9 daily for ity of (ONETOUCH 00:00: diagnosis [place] VERIO TEST 00 code Medical STRIPS) E11.9. May Branch strip substitute brand preferred by insurance Lancing Yes [id number] Use as Uni vers Device with 11-21 directed. ity of Lancets 00:00: June [place] (ONE TOUCH 00 substitute Med ical DELICA) Kit brand Branch preferred by insurance Blood-Gluco Yes [id number] Use as [facility] se Meter 9 directed. ity of (ONETOUCH 00:00: June [place] VERIO FLEX 00 substitute Med ical START) Kit brand Branch preferred by insurance blood sugar Yes [id number] Test 4x [facility] diagnostic 9-29 daily for ity of (ONETOUCH 00:00: diagnosis [place] VERIO TEST 00 code Medical STRIPS) E11.9. May Branch strip substitute brand preferred by insurance atorvastati Yes [id number] 40mg Take 1 [facility] n 40 mg 9-15 tablet by ity of tablet 00:00: mouth at [place] 00 bedtime. Medical Branch fluticasone Yes [id number] 1{puff} Inhale 1 [facility] propion-duc 9-15 Puff every it y of meteroL 00:00: 12 [place] (ADVAIR 00 (twelve) Medical DISKUS) hours. Branch 250-50 mcg/dose inhalation disk albuterol-i Yes [id number] 1{puff} Inhale 1 [facility] pratropium 9-15 Puff 4 ity of 20-100 00:00: (four) [place] mcg/actuati 00 times Medical on inhaler daily. Branch aspirin 81 0 Yes [id number] 81mg Take 1 [facility] mg chewable 9-15 tablet by ity of tablet 00:00: mouth [place] 00 daily. Medical Branch nitroglycer Yes [id number] .4mg Place 1 [facility] in 9-15 tablet ity of (NITROSTAT) 00:00: under the [place] 0.4 mg 00 tongue Medical sublingual every 5 Branch tablet (five) minutes as needed for Chest pain. atorvastati Yes [id number] 40mg Take 1 [facility] n 40 mg 9-15 tablet by ity of tablet 00:00: mouth at [place] 00 bedtime. Medical Branch fluticasone Yes [id number] 1{puff} Inhale 1 [facility] propion-duc 9-15 Puff every it y of meteroL 00:00: 12 [place] (ADVAIR 00 (twelve) Medical DISKUS) hours. Branch 250-50 mcg/dose inhalation disk albuterol-i Yes [id number] 1{puff} Inhale 1 [facility] pratropium 9-15 Puff 4 ity of 20-100 00:00: (four) [place] mcg/actuati 00 times Medical on inhaler daily. Branch aspirin 81 0 Yes [id number] 81mg Take 1 [facility] mg chewable 9-15 tablet by ity of tablet 00:00: mouth [place] 00 daily. Medical Branch nitroglycer Yes [id number] .4mg Place 1 [facility] in 9-15 tablet ity of (NITROSTAT) 00:00: under the [place] 0.4 mg 00 tongue Medical sublingual every 5 Branch tablet (five) minutes as needed for Chest pain. atorvastati Yes [id number] 40mg Take 1 [facility] n 40 mg 9-15 tablet by ity of tablet 00:00: mouth at [place] 00 bedtime. Medical Branch fluticasone Yes [id number] 1{puff} Inhale 1 [facility] propion-duc 9-15 Puff every it y of meteroL 00:00: 12 [place] (ADVAIR 00 (twelve) Medical DISKUS) hours. Branch 250-50 mcg/dose inhalation disk albuterol-i Yes [id number] 1{puff} Inhale 1 [facility] pratropium 9-15 Puff 4 ity of 20-100 00:00: (four) [place] mcg/actuati 00 times Medical on inhaler daily. Branch aspirin 81 0 Yes [id number] 81mg Take 1 [facility] mg chewable 9-15 tablet by ity of tablet 00:00: mouth [place] 00 daily. Medical Branch nitroglycer Yes [id number] .4mg Place 1 [facility] in 9-15 tablet ity of (NITROSTAT) 00:00: under the [place] 0.4 mg 00 tongue Medical sublingual every 5 Branch tablet (five) minutes as needed for Chest pain. atorvastati Yes [id number] 40mg Take 1 [facility] n 40 mg 9-15 tablet by ity of tablet 00:00: mouth at [place] 00 bedtime. Medical Branch fluticasone Yes [id number] 1{puff} Inhale 1 [facility] propion-duc 9-15 Puff every it y of meteroL 00:00: 12 [place] (ADVAIR 00 (twelve) Medical DISKUS) hours. Branch 250-50 mcg/dose inhalation disk albuterol-i 0 Yes [id number] 1{puff} Inhale 1 [facility] pratropium 9-15 Puff 4 ity of 20-100 00:00: (four) [place] mcg/actuati 00 times Medical on inhaler daily. Branch aspirin 81 0 Yes [id number] 81mg Take 1 [facility] mg chewable 9-15 tablet by ity of tablet 00:00: mouth [place] 00 daily. Medical Branch nitroglycer Yes [id number] .4mg Place 1 [facility] in 9-15 tablet ity of (NITROSTAT) 00:00: under the [place] 0.4 mg 00 tongue Medical sublingual every 5 Branch tablet (five) minutes as needed for Chest pain. atorvastati 0 Yes [id number] 40mg Take 1 [facility] n 40 mg 9-15 tablet by ity of tablet 00:00: mouth at [place] 00 bedtime. Medical Branch fluticasone Yes [id number] 1{puff} Inhale 1 [facility] propion-duc 9-15 Puff every it y of meteroL 00:00: 12 [place] (ADVAIR 00 (twelve) Medical DISKUS) hours. Branch 250-50 mcg/dose inhalation disk albuterol-i Yes [id number] 1{puff} Inhale 1 [facility] pratropium 9-15 Puff 4 ity of 20-100 00:00: (four) [place] mcg/actuati 00 times Medical on inhaler daily. Branch aspirin 81 0 Yes [id number] 81mg Take 1 [facility] mg chewable 9-15 tablet by ity of tablet 00:00: mouth [place] 00 daily. Medical Branch nitroglycer Yes [id number] .4mg Place 1 [facility] in 9-15 tablet ity of (NITROSTAT) 00:00: under the [place] 0.4 mg 00 tongue Medical sublingual every 5 Branch tablet (five) minutes as needed for Chest pain. atorvastati Yes [id number] 40mg Take 1 [facility] n 40 mg 9-15 tablet by ity of tablet 00:00: mouth at [place] 00 bedtime. Medical Branch fluticasone Yes [id number] 1{puff} Inhale 1 [facility] propion-duc 9-15 Puff every it y of meteroL 00:00: 12 [place] (ADVAIR 00 (twelve) Medical DISKUS) hours. Branch 250-50 mcg/dose inhalation disk albuterol-i Yes [id number] 1{puff} Inhale 1 [facility] pratropium 9-15 Puff 4 ity of 20-100 00:00: (four) [place] mcg/actuati 00 times Medical on inhaler daily. Branch aspirin 81 0 Yes [id number] 81mg Take 1 [facility] mg chewable 9-15 tablet by ity of tablet 00:00: mouth [place] 00 daily. Medical Branch nitroglycer [id number] 1 [facility] in 9-15 tablet ity of (NITROSTAT) 00:00: under the [place] 0.4 mg 00 tongue Medical sublingual every 5 Branch tablet (five) minutes as needed for Chest pain. atorvastati 0 Yes [id number] 40mg Take 1 [facility] n 40 mg 9-15 tablet by ity of tablet 00:00: mouth at [place] 00 bedtime. Medical Branch fluticasone Yes [id number] 1{puff} Inhale 1 [facility] propion-duc 9-15 Puff every it y of meteroL 00:00: 12 [place] (ADVAIR 00 (twelve) Medical DISKUS) hours. Branch 250-50 mcg/dose inhalation disk albuterol-i Yes [id number] 1{puff} Inhale 1 [facility] pratropium 9-15 Puff 4 ity of 20-100 00:00: (four) [place] mcg/actuati 00 times Medical on inhaler daily. Branch aspirin 81 0 Yes [id number] 81mg Take 1 [facility] mg chewable 9-15 tablet by ity of tablet 00:00: mouth [place] 00 daily. Medical Branch nitroglycer Yes [id number] .4mg Place 1 [facility] in 9-15 tablet ity of (NITROSTAT) 00:00: under the [place] 0.4 mg 00 tongue Medical sublingual every 5 Branch tablet (five) minutes as needed for Chest pain. atorvastati Yes [id number] 40mg Take 1 [facility] n 40 mg 9-15 tablet by ity of tablet 00:00: mouth at [place] 00 bedtime. Medical Branch fluticasone Yes [id number] 1{puff} Inhale 1 [facility] propion-duc 9-15 Puff every it y of meteroL 00:00: 12 [place] (ADVAIR 00 (twelve) Medical DISKUS) hours. Branch 250-50 mcg/dose inhalation disk albuterol-i Yes [id number] 1{puff} Inhale 1 [facility] pratropium 9-15 Puff 4 ity of 20-100 00:00: (four) [place] mcg/actuati 00 times Medical on inhaler daily. Branch aspirin 81 0 Yes [id number] 81mg Take 1 [facility] mg chewable 9-15 tablet by ity of tablet 00:00: mouth [place] 00 daily. Medical Branch nitroglycer Yes [id number] .4mg Place 1 [facility] in 9-15 tablet ity of (NITROSTAT) 00:00: under the [place] 0.4 mg 00 tongue Medical sublingual every 5 Branch tablet (five) minutes as needed for Chest pain. atorvastati Yes [id number] 40mg Take 1 [facility] n 40 mg 9-15 tablet by ity of tablet 00:00: mouth at [place] 00 bedtime. Medical Branch fluticasone Yes [id number] 1{puff} Inhale 1 [facility] propion-duc 9-15 Puff every it y of meteroL 00:00: 12 [place] (ADVAIR 00 (twelve) Medical DISKUS) hours. Branch 250-50 mcg/dose inhalation disk albuterol-i Yes [id number] 1{puff} Inhale 1 [facility] pratropium 9-15 Puff 4 ity of 20-100 00:00: (four) [place] mcg/actuati 00 times Medical on inhaler daily. Branch aspirin 81 Yes [id number] 81mg Take 1 [facility] mg chewable 9-15 tablet by ity of tablet 00:00: mouth [place] 00 daily. Medical Branch nitroglycer Yes [id number] .4mg Place 1 [facility] in 9-15 tablet ity of (NITROSTAT) 00:00: under the [place] 0.4 mg 00 tongue Medical sublingual every 5 Branch tablet (five) minutes as needed for Chest pain. atorvastati Yes [id number] 40mg Take 1 [facility] n 40 mg 9-15 tablet by ity of tablet 00:00: mouth at [place] 00 bedtime. Medical Branch fluticasone Yes [id number] 1{puff} Inhale 1 [facility] propion-duc 9-15 Puff every it y of meteroL 00:00: 12 [place] (ADVAIR 00 (twelve) Medical DISKUS) hours. Branch 250-50 mcg/dose inhalation disk albuterol-i Yes [id number] 1{puff} Inhale 1 [facility] pratropium 9-15 Puff 4 ity of 20-100 00:00: (four) [place] mcg/actuati 00 times Medical on inhaler daily. Branch aspirin 81 0 Yes [id number] 81mg Take 1 [facility] mg chewable 9-15 tablet by ity of tablet 00:00: mouth [place] 00 daily. Medical Branch nitroglycer 2021-[id number] 1 [facility] in 9-15 tablet ity of (NITROSTAT) 00:00: under the [place] 0.4 mg 00 tongue Medical sublingual every 5 Branch tablet (five) minutes as needed for Chest pain. atorvastati 0 Yes [id number] 40mg Take 1 [facility] n 40 mg 9-15 tablet by ity of tablet 00:00: mouth at [place] 00 bedtime. Medical Branch fluticasone 0 Yes [id number] 1{puff} Inhale 1 [facility] propion-duc 9-15 Puff every it y of meteroL 00:00: 12 [place] (ADVAIR 00 (twelve) Medical DISKUS) hours. Branch 250-50 mcg/dose inhalation disk albuterol-i 0 Yes [id number] 1{puff} Inhale 1 [facility] pratropium 9-15 Puff 4 ity of 20-100 00:00: (four) [place] mcg/actuati 00 times Medical on inhaler daily. Branch aspirin 81 0 Yes [id number] 81mg Take 1 [facility] mg chewable 9-15 tablet by ity of tablet 00:00: mouth [place] 00 daily. Medical Branch nitroglycer Yes [id number] .4mg Place 1 [facility] in 9-15 tablet ity of (NITROSTAT) 00:00: under the [place] 0.4 mg 00 tongue Medical sublingual every 5 Branch tablet (five) minutes as needed for Chest pain. atorvastati Yes [id number] 40mg Take 1 [facility] n 40 mg 9-15 tablet by ity of tablet 00:00: mouth at [place] 00 bedtime. Medical Branch fluticasone 0 Yes [id number] 1{puff} Inhale 1 [facility] propion-duc 9-15 Puff every it y of meteroL 00:00: 12 [place] (ADVAIR 00 (twelve) Medical DISKUS) hours. Branch 250-50 mcg/dose inhalation disk albuterol-i 0 Yes [id number] 1{puff} Inhale 1 [facility] pratropium 9-15 Puff 4 ity of 20-100 00:00: (four) [place] mcg/actuati 00 times Medical on inhaler daily. Branch aspirin 81 2020-0 Yes [id number] 81mg Take 1 [facility] mg chewable 9-15 tablet by ity of tablet 00:00: mouth [place] 00 daily. Medical Branch nitroglycer Yes [id number] .4mg Place 1 [facility] in 9-15 tablet ity of (NITROSTAT) 00:00: under the [place] 0.4 mg 00 tongue Medical sublingual every 5 Branch tablet (five) minutes as needed for Chest pain. atorvastati Yes [id number] 40mg Take 1 [facility] n 40 mg 9-15 tablet by ity of tablet 00:00: mouth at [place] 00 bedtime. Medical Branch fluticasone Yes [id number] 1{puff} Inhale 1 [facility] propion-duc 9-15 Puff every it y of meteroL 00:00: 12 [place] (ADVAIR 00 (twelve) Medical DISKUS) hours. Branch 250-50 mcg/dose inhalation disk albuterol-i Yes [id number] 1{puff} Inhale 1 [facility] pratropium 9-15 Puff 4 ity of 20-100 00:00: (four) [place] mcg/actuati 00 times Medical on inhaler daily. Branch aspirin 81 Yes [id number] 81mg Take 1 [facility] mg chewable 9-15 tablet by ity of tablet 00:00: mouth [place] 00 daily. Medical Branch nitroglycer Yes [id number] .4mg Place 1 [facility] in 9-15 tablet ity of (NITROSTAT) 00:00: under the [place] 0.4 mg 00 tongue Medical sublingual every 5 Branch tablet (five) minutes as needed for Chest pain. atorvastati Yes [id number] 40mg Take 1 [facility] n 40 mg 9-15 tablet by ity of tablet 00:00: mouth at [place] 00 bedtime. [facility] fluticasone Yes [id number] 1{puff} Inhale 1 [facility] propion-duc 9-15 Puff every it y of meteroL 00:00: 12 [place] (ADVAIR 00 (twelve) Medical DISKUS) hours. Branch 250-50 mcg/dose inhalation disk albuterol-i Yes [id number] 1{puff} Inhale 1 [facility] pratropium 9-15 Puff 4 ity of 20-100 00:00: (four) [place] mcg/actuati 00 times Medical on inhaler daily. Branch aspirin 81 0 Yes [id number] 81mg Take 1 [facility] mg chewable 9-15 tablet by ity of tablet 00:00: mouth [place] 00 daily. Medical Branch nitroglycer Yes [id number] .4mg Place 1 [facility] in 9-15 tablet ity of (NITROSTAT) 00:00: under the [place] 0.4 mg 00 tongue Medical sublingual every 5 Branch tablet (five) minutes as needed for Chest pain. atorvastati Yes [id number] 40mg Take 1 [facility] n 40 mg 9-15 tablet by ity of tablet 00:00: mouth at [place] 00 bedtime. Medical [facility] fluticasone Yes [id number] 1{puff} Inhale 1 [facility] propion-duc 9-15 Puff every it y of meteroL 00:00: 12 [place] (ADVAIR 00 (twelve) Medical DISKUS) hours. Branch 250-50 mcg/dose inhalation disk albuterol-i Yes [id number] 1{puff} Inhale 1 [facility] pratropium 9-15 Puff 4 ity of 20-100 00:00: (four) [place] mcg/actuati 00 times Medical on inhaler daily. Branch aspirin 81 0 Yes [id number] 81mg Take 1 [facility] mg chewable 9-15 tablet by ity of tablet 00:00: mouth [place] 00 daily. Medical Branch nitroglycer Yes [id number] .4mg Place 1 [facility] in 9-15 tablet ity of (NITROSTAT) 00:00: under the [place] 0.4 mg 00 tongue Medical sublingual every 5 Branch tablet (five) minutes as needed for Chest pain. atorvastati Yes [id number] 40mg Take 1 [facility] n 40 mg 9-15 tablet by ity of tablet 00:00: mouth at [place] 00 bedtime. [facility] fluticasone Yes [id number] 1{puff} Inhale 1 [facility] propion-duc 9-15 Puff every it y of meteroL 00:00: 12 [place] (ADVAIR 00 (twelve) Medical DISKUS) hours. Branch 250-50 mcg/dose inhalation disk albuterol-i Yes [id number] 1{puff} Inhale 1 [facility] pratropium 9-15 Puff 4 ity of 20-100 00:00: (four) [place] mcg/actuati 00 times Medical on inhaler daily. Branch aspirin 81 Yes [id number] 81mg Take 1 [facility] mg chewable 9-15 tablet by ity of tablet 00:00: mouth [place] 00 daily. Medical Branch nitroglycer Yes [id number] .4mg Place 1 [facility] in 9-15 tablet ity of (NITROSTAT) 00:00: under the [place] 0.4 mg 00 tongue Medical sublingual every 5 Branch tablet (five) minutes as needed for Chest pain. atorvastati Yes [id number] 40mg Take 1 [facility] n 40 mg 9-15 tablet by ity of tablet 00:00: mouth at [place] 00 bedtime. [facility] fluticasone Yes [id number] 1{puff} Inhale 1 [facility] propion-duc 9-15 Puff every it y of meteroL 00:00: 12 [place] (ADVAIR 00 (twelve) Medical DISKUS) hours. Branch 250-50 mcg/dose inhalation disk albuterol-i Yes [id number] 1{puff} Inhale 1 [facility] pratropium 9-15 Puff 4 ity of 20-100 00:00: (four) [place] mcg/actuati 00 times Medical on inhaler daily. Branch aspirin 81 Yes [id number] 81mg Take 1 [facility] n[facility] mg chewable 9-15 tablet by ity of tablet 00:00: mouth [place] 00 daily. Medical Branch nitroglycer Yes [id number] .4mg Place 1 [facility] in 9-15 tablet ity of (NITROSTAT) 00:00: under the [place] 0.4 mg 00 tongue Medical sublingual every 5 Branch tablet (five) minutes as needed for Chest pain. atorvastati Yes [id number] 40mg Take 1 [facility] n 40 mg 9-15 tablet by ity of tablet 00:00: mouth at [place] 00 bedtime. [facility] fluticasone Yes [id number] 1{puff} Inhale 1 [facility] propion-duc 9-15 Puff every it y of meteroL 00:00: 12 [place] (ADVAIR 00 (twelve) Medical DISKUS) hours. Branch 250-50 mcg/dose inhalation disk albuterol-i Yes [id number] 1{puff} Inhale 1 [facility] pratropium 9-15 Puff 4 ity of 20-100 00:00: (four) [place] mcg/actuati 00 times Medical on inhaler daily. Branch aspirin 81 0 Yes [id number] 81mg Take 1 [facility] n[facility] mg chewable 9-15 tablet by ity of tablet 00:00: mouth [place] 00 daily. Medical [facility] nitroglycer [id number] 1 [facility] in 9-15 tablet ity of (NITROSTAT) 00:00: under the [place] 0.4 mg 00 tongue Medical sublingual every 5 Branch tablet (five) minutes as needed for Chest pain. atorvastati 0 Yes [id number] 40mg Take 1 [facility] n 40 mg 9-15 tablet by ity of tablet 00:00: mouth at [place] 00 bedtime. Medical [facility] fluticasone 0 Yes [id number] 1{puff} Inhale 1 [facility] propion-duc 9-15 Puff every it y of meteroL 00:00: 12 [place] (ADVAIR 00 (twelve) Medical DISKUS) hours. Branch 250-50 mcg/dose inhalation disk albuterol-i Yes [id number] 1{puff} Inhale 1 [facility] pratropium 9-15 Puff 4 ity of 20-100 00:00: (four) [place] mcg/actuati 00 times Medical on inhaler daily. Branch aspirin 81 0 Yes [id number] 81mg Take 1 [facility] n[facility] mg chewable 9-15 tablet by ity of tablet 00:00: mouth [place] 00 daily. Medical Branch nitroglycer 2020-[id number] 1 [facility] in 9-15 tablet ity of (NITROSTAT) 00:00: under the [place] 0.4 mg 00 tongue Medical sublingual every 5 Branch tablet (five) minutes as needed for Chest pain. atorvastati 0 Yes [id number] 40mg Take 1 [facility] n 40 mg 9-15 tablet by ity of tablet 00:00: mouth at [place] 00 bedtime. [facility] fluticasone Yes [id number] 1{puff} Inhale 1 [facility] propion-duc 9-15 Puff every it y of meteroL 00:00: 12 [place] (ADVAIR 00 (twelve) Medical DISKUS) hours. Branch 250-50 mcg/dose inhalation disk albuterol-i Yes [id number] 1{puff} Inhale 1 [facility] pratropium 9-15 Puff 4 ity of 20-100 00:00: (four) [place] mcg/actuati 00 times Medical on inhaler daily. Branch aspirin 81 Yes [id number] 81mg Take 1 [facility] mg chewable 9-15 tablet by ity of tablet 00:00: mouth [place] 00 daily. Medical Branch nitroglycer Yes [id number] .4mg Place 1 [facility] in 9-15 tablet ity of (NITROSTAT) 00:00: under the [place] 0.4 mg 00 tongue Medical sublingual every 5 Branch tablet (five) minutes as needed for Chest pain. atorvastati Yes [id number] 40mg Take 1 [facility] n 40 mg 9-15 tablet by ity of tablet 00:00: mouth at [place] 00 bedtime. Medical Branch escitalopra Yes [id number] 10mg Take 1 [facility] m oxalate 9-15 tablet by ity o f 10 mg 00:00: mouth [place] tablet 00 daily. [facility] fluticasone Yes [id number] 1{puff} Inhale 1 [facility] propion-duc 9-15 Puff every it y of meteroL 00:00: 12 [place] (ADVAIR 00 (twelve) Medical DISKUS) hours. Branch 250-50 mcg/dose inhalation disk albuterol-i Yes [id number] 1{puff} Inhale 1 [facility] pratropium 9-15 Puff 4 ity of 20-100 00:00: (four) [place] mcg/actuati 00 times Medical on inhaler daily. Branch aspirin 81 0 Yes [id number] 81mg Take 1 [facility] mg chewable 9-15 tablet by ity of tablet 00:00: mouth [place] 00 daily. Medical Branch nitroglycer Yes [id number] .4mg Place 1 [facility] in 9-15 tablet ity of (NITROSTAT) 00:00: under the [place] 0.4 mg 00 tongue Medical sublingual every 5 Branch tablet (five) minutes as needed for Chest pain. atorvastati Yes [id number] 40mg Take 1 [facility] n 40 mg 9-15 tablet by ity of tablet 00:00: mouth at [place] 00 bedtime. Medical [facility] escitalopra Yes [id number] 10mg Take 1 [facility] m oxalate 9-15 tablet by ity o f 10 mg 00:00: mouth [place] tablet 00 daily. [facility] fluticasone Yes [id number] 1{puff} Inhale 1 [facility] propion-duc 9-15 Puff every it y of meteroL 00:00: 12 [place] (ADVAIR 00 (twelve) Medical DISKUS) hours. Branch 250-50 mcg/dose inhalation disk albuterol-i Yes [id number] 1{puff} Inhale 1 [facility] pratropium 9-15 Puff 4 ity of 20-100 00:00: (four) [place] mcg/actuati 00 times Medical on inhaler daily. Branch aspirin 81 Yes [id number] 81mg Take 1 [facility] mg chewable 9-15 tablet by ity of tablet 00:00: mouth [place] 00 daily. Medical Branch nitroglycer Yes [id number] .4mg Place 1 [facility] in 9-15 tablet ity of (NITROSTAT) 00:00: under the [place] 0.4 mg 00 tongue Medical sublingual every 5 Branch tablet (five) minutes as needed for Chest pain. atorvastati Yes [id number] 40mg Take 1 [facility] n 40 mg 9-15 tablet by ity of tablet 00:00: mouth at [place] 00 bedtime. Medical Branch escitalopra Yes [id number] 10mg Take 1 [facility] m oxalate 9-15 tablet by ity o f 10 mg 00:00: mouth [place] tablet 00 daily. [facility] fluticasone Yes [id number] 1{puff} Inhale 1 [facility] propion-duc 9-15 Puff every it y of meteroL 00:00: 12 [place] (ADVAIR 00 (twelve) Medical DISKUS) hours. Branch 250-50 mcg/dose inhalation disk albuterol-i Yes [id number] 1{puff} Inhale 1 [facility] pratropium 9-15 Puff 4 ity of 20-100 00:00: (four) [place] mcg/actuati 00 times Medical on inhaler daily. Branch aspirin 81 0 Yes [id number] 81mg Take 1 [facility] mg chewable 9-15 tablet by ity of tablet 00:00: mouth [place] 00 daily. Medical Branch nitroglycer Yes [id number] .4mg Place 1 [facility] in 9-15 tablet ity of (NITROSTAT) 00:00: under the [place] 0.4 mg 00 tongue Medical sublingual every 5 Branch tablet (five) minutes as needed for Chest pain. atorvastati Yes [id number] 40mg Take 1 [facility] n 40 mg 9-15 tablet by ity of tablet 00:00: mouth at [place] 00 bedtime. Medical Branch escitalopra Yes [id number] 10mg Take 1 [facility] m oxalate 9-15 tablet by ity o f 10 mg 00:00: mouth [place] tablet 00 daily. Medical [facility] fluticasone Yes [id number] 1{puff} Inhale 1 [facility] propion-duc 9-15 Puff every it y of meteroL 00:00: 12 [place] (ADVAIR 00 (twelve) Medical DISKUS) hours. Branch 250-50 mcg/dose inhalation disk albuterol-i Yes [id number] 1{puff} Inhale 1 [facility] pratropium 9-15 Puff 4 ity of 20-100 00:00: (four) [place] mcg/actuati 00 times Medical on inhaler daily. Branch aspirin 81 Yes [id number] 81mg Take 1 [facility] mg chewable 9-15 tablet by ity of tablet 00:00: mouth [place] 00 daily. Medical Branch nitroglycer Yes [id number] .4mg Place 1 [facility] in 9-15 tablet ity of (NITROSTAT) 00:00: under the [place] 0.4 mg 00 tongue Medical sublingual every 5 Branch tablet (five) minutes as needed for Chest pain. atorvastati Yes [id number] 40mg Take 1 [facility] n 40 mg 9-15 tablet by ity of tablet 00:00: mouth at [place] 00 bedtime. Medical [facility] escitalopra Yes [id number] 10mg Take 1 [facility] m oxalate 9-15 tablet by ity o f 10 mg 00:00: mouth [place] tablet 00 daily. [facility] fluticasone Yes [id number] 1{puff} Inhale 1 [facility] propion-duc 9-15 Puff every it y of meteroL 00:00: 12 [place] (ADVAIR 00 (twelve) Medical DISKUS) hours. Branch 250-50 mcg/dose inhalation disk albuterol-i Yes [id number] 1{puff} Inhale 1 [facility] pratropium 9-15 Puff 4 ity of 20-100 00:00: (four) [place] mcg/actuati 00 times Medical on inhaler daily. Branch aspirin 81 Yes [id number] 81mg Take 1 [facility] mg chewable 9-15 tablet by ity of tablet 00:00: mouth [place] 00 daily. Medical Branch nitroglycer Yes [id number] .4mg Place 1 [facility] in 9-15 tablet ity of (NITROSTAT) 00:00: under the [place] 0.4 mg 00 tongue Medical sublingual every 5 Branch tablet (five) minutes as needed for Chest pain. atorvastati Yes [id number] 40mg Take 1 [facility] n 40 mg 9-15 tablet by ity of tablet 00:00: mouth at [place] 00 bedtime. Medical [facility] escitalopra Yes [id number] 10mg Take 1 [facility] m oxalate 9-15 tablet by ity o f 10 mg 00:00: mouth [place] tablet 00 daily. [facility] fluticasone Yes [id number] 1{puff} Inhale 1 [facility] propion-duc 9-15 Puff every it y of meteroL 00:00: 12 [place] (ADVAIR 00 (twelve) Medical DISKUS) hours. Branch 250-50 mcg/dose inhalation disk albuterol-i Yes [id number] 1{puff} Inhale 1 [facility] pratropium 9-15 Puff 4 ity of 20-100 00:00: (four) [place] mcg/actuati 00 times Medical on inhaler daily. Branch aspirin 81 Yes [id number] 81mg Take 1 [facility] mg chewable 9-15 tablet by ity of tablet 00:00: mouth [place] 00 daily. Medical Branch nitroglycer Yes [id number] .4mg Place 1 [facility] in 9-15 tablet ity of (NITROSTAT) 00:00: under the [place] 0.4 mg 00 tongue Medical sublingual every 5 Branch tablet (five) minutes as needed for Chest pain. escitalopra 2021- No [id number] 10mg Take 1 [facility] m oxalate -15 -18 tablet by ity of 10 mg 00:00: 00:00 mouth [place] tablet 00 :00 daily. Medical Branch BD MATIAS Yes [id number] INJECT [facility] GEN PEN 3-21 UNDER THE ity of NEEDLE 32 00:00: SKIN THREE [place] gauge x 00 TIMES Medical 5/32" Ndle DAILY Branch BD MATIAS Yes [id number] INJECT [facility] GEN PEN 3-21 UNDER THE ity of NEEDLE 32 00:00: SKIN THREE [place] gauge x 00 TIMES Medical 5/32" Ndle DAILY Branch BD MATIAS Yes [id number] INJECT [facility] GEN PEN 3-21 UNDER THE ity of NEEDLE 32 00:00: SKIN THREE [place] gauge x 00 TIMES Medical 5/32" Ndle DAILY Branch BD MATIAS Yes [id number] INJECT [facility] GEN PEN 3-21 UNDER THE ity of NEEDLE 32 00:00: SKIN THREE [place] gauge x 00 TIMES Medical 5/32" Ndle DAILY Branch BD MATIAS Yes [id number] INJECT [facility] GEN PEN 3-21 UNDER THE ity of NEEDLE 32 00:00: SKIN THREE [place] gauge x 00 TIMES Medical 5/32" Ndle DAILY Branch BD MATIAS Yes [id number] INJECT [facility] GEN PEN 3-21 UNDER THE ity of NEEDLE 32 00:00: SKIN THREE [place] gauge x 00 TIMES Medical 5/32" Ndle DAILY Branch BD MATIAS Yes [id number] INJECT [facility] GEN PEN 3-21 UNDER THE ity of NEEDLE 32 00:00: SKIN THREE [place] gauge x 00 TIMES Medical 5/32" Ndle DAILY Branch BD MATIAS Yes [id number] INJECT [facility] GEN PEN 3-21 UNDER THE ity of NEEDLE 32 00:00: SKIN THREE [place] gauge x 00 TIMES Medical " Ndle DAILY Branch BD MATIAS Yes [id number] INJECT [facility] GEN PEN 3-21 UNDER THE ity of NEEDLE 32 00:00: SKIN THREE [place] gauge x 00 TIMES Medical " Ndle DAILY Branch BD MATIAS Yes [id number] INJECT [facility] GEN PEN 3-21 UNDER THE ity of NEEDLE 32 00:00: SKIN THREE [place] gauge x 00 TIMES Medical " Ndle DAILY Branch BD MATIAS Yes [id number] INJECT [facility] GEN PEN 3-21 UNDER THE ity of NEEDLE 32 00:00: SKIN THREE [place] gauge x 00 TIMES Medical " Ndle DAILY Branch BD MATIAS Yes [id number] INJECT [facility] GEN PEN 3-21 UNDER THE ity of NEEDLE 32 00:00: SKIN THREE [place] gauge x 00 TIMES Medical " Ndle DAILY Branch BD MATIAS Yes [id number] INJECT [facility] GEN PEN 3-21 UNDER THE ity of NEEDLE 32 00:00: SKIN THREE [place] gauge x 00 TIMES Medical " Ndle DAILY Branch BD MATIAS Yes [id number] INJECT [facility] GEN PEN 3-21 UNDER THE ity of NEEDLE 32 00:00: SKIN THREE [place] gauge x 00 TIMES Medical " Ndle DAILY Branch BD MATIAS Yes [id number] INJECT [facility] GEN PEN 3-21 UNDER THE ity of NEEDLE 32 00:00: SKIN THREE [place] gauge x 00 TIMES Medical " Ndle DAILY Branch BD MATIAS Yes [id number] INJECT [facility] GEN PEN 3-21 UNDER THE ity of NEEDLE 32 00:00: SKIN THREE [place] gauge x 00 TIMES Medical " Ndle DAILY Branch BD MATIAS Yes [id number] INJECT [facility] GEN PEN 3-21 UNDER THE ity of NEEDLE 32 00:00: SKIN THREE [place] gauge x 00 TIMES Medical " Ndle DAILY Branch BD MATIAS 2ND 2021- No [id number] INJECT [facility] GEN PEN 3-21 12-15 UNDER THE ity of NEEDLE 32 00:00: 00:00 SKIN THREE [place] gauge x 00 :00 TIMES Medical " Ndle DAILY Branch blood sugar 2021-0 Yes [id number] Un jb diagnostic 2-05 times/day ity of (ONETOUCH 00:00: [place] VERIO TEST 00 Medical STRIPS) Branch strip fluticasone 2020-0 Yes [id number] 2{spray Use 2 [facility] propionate 2-05 } Sprays in ity of 50 00:00: each [place] mcg/actuati 00 nostril Medic al on nasal daily. Branch spray blood sugar 2020-0 Yes [id number] 3 Un jb diagnostic 2-05 times/day ity of (ONETOUCH 00:00: [place] VERIO TEST 00 Medical STRIPS) Branch strip fluticasone 2020-0 Yes [id number] 2{spray Use 2 [facility] propionate 2-05 } Sprays in ity of 50 00:00: each [place] mcg/actuati 00 nostril Medic al on nasal daily. Branch spray blood sugar 2020-0 Yes [id number] 3 Un jb diagnostic 2-05 times/day ity of (ONETOUCH 00:00: [place] VERIO TEST 00 Medical STRIPS) Branch strip fluticasone 2020-0 Yes [id number] 2{spray Use 2 [facility] propionate 2-05 } Sprays in ity of 50 00:00: each [place] mcg/actuati 00 nostril Medic al on nasal daily. Branch spray blood sugar 2020-0 Yes [id number] 3 Un jb diagnostic 2-05 times/day ity of (ONETOUCH 00:00: [place] VERIO TEST 00 Medical STRIPS) Branch strip fluticasone 2021-0 Yes [id number] 2{spray Use 2 [facility] propionate 2-05 } Sprays in ity of 50 00:00: each [place] mcg/actuati 00 nostril Medic al on nasal daily. Branch spray blood sugar 2020-0 Yes [id number] 3 Un jb diagnostic 2-05 times/day ity of (ONETOUCH 00:00: [place] VERIO TEST 00 Medical STRIPS) Branch strip fluticasone 2021-0 Yes [id number] 2{spray Use 2 [facility] propionate 2-05 } Sprays in ity of 50 00:00: each [place] mcg/actuati 00 nostril Medic al on nasal daily. Branch spray blood sugar 2020-0 Yes [id number] 3 Un jb diagnostic 2-05 times/day ity of (ONETOUCH 00:00: [place] VERIO TEST 00 Medical STRIPS) Branch strip fluticasone 2021-0 Yes [id number] 2{spray Use 2 [facility] propionate 2-05 } Sprays in ity of 50 00:00: each [place] mcg/actuati 00 nostril Medic al on nasal daily. Branch spray blood sugar 2020-0 Yes [id number] 3 Un jb diagnostic 2-05 times/day ity of (ONETOUCH 00:00: [place] VERIO TEST 00 Medical STRIPS) Branch strip fluticasone 2020-0 Yes [id number] 2{spray Use 2 [facility] propionate 2-05 } Sprays in ity of 50 00:00: each [place] mcg/actuati 00 nostril Medic al on nasal daily. Branch spray blood sugar 2020-0 Yes [id number] 3 Un jb diagnostic 2-05 times/day ity of (ONETOUCH 00:00: [place] VERIO TEST 00 Medical STRIPS) Branch strip fluticasone 2021-0 Yes [id number] 2{spray Use 2 [facility] propionate 2-05 } Sprays in ity of 50 00:00: each [place] mcg/actuati 00 nostril Medic al on nasal daily. Branch spray blood sugar 2020-0 Yes [id number] 3 Un jb diagnostic 2-05 times/day ity of (ONETOUCH 00:00: [place] VERIO TEST 00 Medical STRIPS) Branch strip fluticasone 2020-0 Yes [id number] 2{spray Use 2 [facility] propionate 2-05 } Sprays in ity of 50 00:00: each [place] mcg/actuati 00 nostril Medic al on nasal daily. Branch spray blood sugar 2020-0 Yes [id number] 3 Un jb diagnostic 2-05 times/day ity of (ONETOUCH 00:00: [place] VERIO TEST 00 Medical STRIPS) Branch strip fluticasone 2021-0 Yes [id number] 2{spray Use 2 [facility] propionate 2-05 } Sprays in ity of 50 00:00: each [place] mcg/actuati 00 nostril Medic al on nasal daily. Branch spray blood sugar 2020-0 Yes [id number] 3 Un jb diagnostic 2-05 times/day ity of (ONETOUCH 00:00: [place] VERIO TEST 00 Medical STRIPS) Branch strip fluticasone 2021-0 Yes [id number] 2{spray Use 2 [facility] propionate 2-05 } Sprays in ity of 50 00:00: each [place] mcg/actuati 00 nostril Medic al on nasal daily. Branch spray blood sugar 2020-0 Yes [id number] 3 Un jb diagnostic 2-05 times/day ity of (ONETOUCH 00:00: [place] VERIO TEST 00 Medical STRIPS) Branch strip fluticasone 1-0 Yes [id number] 2{spray Use 2 [facility] propionate 2-05 } Sprays in ity of 50 00:00: each [place] mcg/actuati 00 nostril Medic al on nasal daily. Branch spray blood sugar 2020-0 Yes [id number] 3 Un jb diagnostic 2-05 times/day ity of (ONETOUCH 00:00: [place] VERIO TEST 00 Medical STRIPS) Branch strip fluticasone 2020-0 Yes [id number] 2{spray Use 2 [facility] propionate 2-05 } Sprays in ity of 50 00:00: each [place] mcg/actuati 00 nostril Medic al on nasal daily. Branch spray blood sugar 2020-0 Yes [id number] 3 Un jb diagnostic 2-05 times/day ity of (ONETOUCH 00:00: [place] VERIO TEST 00 Medical STRIPS) Branch strip fluticasone 2021-0 Yes [id number] 2{spray Use 2 [facility] propionate 2-05 } Sprays in ity of 50 00:00: each [place] mcg/actuati 00 nostril Medic al on nasal daily. Branch spray blood sugar 2020-0 Yes [id number] 3 Un jb diagnostic 2-05 times/day ity of (ONETOUCH 00:00: [place] VERIO TEST 00 Medical STRIPS) Branch strip fluticasone 1-0 Yes [id number] 2{spray Use 2 [facility] propionate 2-05 } Sprays in ity of 50 00:00: each [place] mcg/actuati 00 nostril Medic al on nasal daily. Branch spray blood sugar 2020-0 Yes [id number] 3 Un jb diagnostic 2-05 times/day ity of (ONETOUCH 00:00: [place] VERIO TEST 00 Medical STRIPS) Branch strip fluticasone 2021-0 Yes [id number] 2{spray Use 2 [facility] propionate 2-05 } Sprays in ity of 50 00:00: each [place] mcg/actuati 00 nostril Medic al on nasal daily. Branch spray blood sugar 2020-0 Yes [id number] 3 Un jb diagnostic 2-05 times/day ity of (ONETOUCH 00:00: [place] VERIO TEST 00 Medical STRIPS) Branch strip fluticasone 2020-0 Yes [id number] 2{spray Use 2 [facility] propionate 2-05 } Sprays in ity of 50 00:00: each [place] mcg/actuati 00 nostril Medic al on nasal daily. Branch spray blood sugar 2020-0 Yes [id number] 3 Un jb diagnostic 2-05 times/day ity of (ONETOUCH 00:00: [place] VERIO TEST 00 Medical STRIPS) Branch strip fluticasone 2020-0 Yes [id number] 2{spray Use 2 [facility] propionate 2-05 } Sprays in ity of 50 00:00: each [place] mcg/actuati 00 nostril Medic al on nasal daily. Branch spray blood sugar 2020-0 Yes [id number] 3 Un jb diagnostic 2-05 times/day ity of (ONETOUCH 00:00: [place] VERIO TEST 00 Medical STRIPS) Branch strip fluticasone 2020-0 Yes [id number] 2{spray Use 2 [facility] propionate 2-05 } Sprays in ity of 50 00:00: each [place] mcg/actuati 00 nostril Medic al on nasal daily. Branch spray blood sugar 2020-0 Yes [id number] 3 Un jb diagnostic 2-05 times/day ity of (ONETOUCH 00:00: [place] VERIO TEST 00 Medical STRIPS) Branch strip fluticasone 2020-0 Yes [id number] 2{spray Use 2 [facility] propionate 2-05 } Sprays in ity of 50 00:00: each [place] mcg/actuati 00 nostril Medic al on nasal daily. Branch spray blood sugar 2020-0 Yes [id number] 3 Un jb diagnostic 2-05 times/day ity of (ONETOUCH 00:00: [place] VERIO TEST 00 Medical STRIPS) Branch strip fluticasone 2020-0 Yes [id number] 2{spray Use 2 [facility] propionate 2-05 } Sprays in ity of 50 00:00: each [place] mcg/actuati 00 nostril Medic al on nasal daily. Branch spray blood sugar 2020-0 Yes [id number] 3 Un jb diagnostic 2-05 times/day ity of (ONETOUCH 00:00: [place] VERIO TEST 00 Medical STRIPS) Branch strip fluticasone 2020-0 Yes [id number] 2{spray Use 2 [facility] propionate 2-05 } Sprays in ity of 50 00:00: each [place] mcg/actuati 00 nostril Medic al on nasal daily. Branch spray blood sugar 2020-0 Yes [id number] 3 Un jb diagnostic 2-05 times/day ity of (ONETOUCH 00:00: [place] VERIO TEST 00 Medical STRIPS) Branch strip fluticasone 2020-0 Yes [id number] 2{spray Use 2 [facility] propionate 2-05 } Sprays in ity of 50 00:00: each [place] mcg/actuati 00 nostril Medic al on nasal daily. Branch spray blood sugar 2020-0 Yes [id number] 3 Un jb diagnostic 2-05 times/day ity of (ONETOUCH 00:00: [place] VERIO TEST 00 Medical STRIPS) Branch strip fluticasone 2020-0 Yes [id number] 2{spray Use 2 [facility] propionate 2-05 } Sprays in ity of 50 00:00: each [place] mcg/actuati 00 nostril Medic al on nasal daily. Branch spray blood sugar 2020-0 Yes [id number] 3 Un jb diagnostic 2-05 times/day ity of (ONETOUCH 00:00: [place] VERIO TEST 00 Medical STRIPS) Branch strip fluticasone 202-0 Yes [id number] 2{spray Use 2 [facility] propionate 2-05 } Sprays in ity of 50 00:00: each [place] mcg/actuati 00 nostril Medic al on nasal daily. Branch spray blood sugar 2020-0 Yes [id number] 3 Un jb diagnostic 2-05 times/day ity of (ONETOUCH 00:00: [place] VERIO TEST 00 Medical STRIPS) Branch strip fluticasone 2020-0 Yes [id number] 2{spray Use 2 [facility] propionate 2-05 } Sprays in ity of 50 00:00: each [place] mcg/actuati 00 nostril Medic al on nasal daily. Branch spray Insulin 2019- Yes [id number] [facility] [place], 1-11 meals, dx ity of Disposable, 00:00: code E11.9 [place] 31 gauge x 00 Pen needle Med ical 1/4" Ndle humalog Branch quick pen Insulin 2019- Yes [id number] Before [facility] [place], 1-11 meals, dx ity of Disposable, 00:00: code E11.9 [place] 31 gauge x 00 Pen needle Med ical 1/4" Ndle humalog Branch quick pen Insulin 2019- Yes [id number] Before [facility] [place], 1-11 meals, dx ity of Disposable, 00:00: code E11.9 [place] 31 gauge x 00 Pen needle Med ical 1/4" Ndle humalog Branch quick pen Insulin 2019- Yes [id number] Before [facility] [place], 1-11 meals, dx ity of Disposable, 00:00: code E11.9 [place] 31 gauge x 00 Pen needle Med ical 1/4" Ndle humalog Branch quick pen Insulin 2019- Yes [id number] Before [facility] ers [place], 1-11 meals, dx ity of Disposable, 00:00: code E11.9 [place] 31 gauge x 00 Pen needle Med ical 1/4" [facility] quick pen Insulin 2019-1 Yes [id number] Before [facility] [place], 1-11 meals, dx ity of Disposable, 00:00: code E11.9 [place] 31 gauge x 00 Pen needle Med ical 1/4" [facility] quick pen Insulin 2019- Yes [id number] Before [facility] [place], 1-11 meals, dx ity of Disposable, 00:00: code E11.9 [place] 31 gauge x 00 Pen needle Med ical 1/4" [facility] quick pen Insulin 2019- Yes [id number] Before [facility] [place], 1-11 meals, dx ity of Disposable, 00:00: code E11.9 [place] 31 gauge x 00 Pen needle Med ical 1/4" [facility] quick pen Insulin 2019- Yes [id number] Before [facility] [place], 1-11 meals, dx ity of Disposable, 00:00: code E11.9 [place] 31 gauge x 00 Pen needle Med ical 1/4" [facility] quick pen Insulin 2019- Yes [id number] Before [facility] [place], 1-11 meals, dx ity of Disposable, 00:00: code E11.9 [place] 31 gauge x 00 Pen needle Med ical 1/4" [facility] quick pen Insulin 2019- Yes [id number] Before [facility] [place], 1-11 meals, dx ity of Disposable, 00:00: code E11.9 [place] 31 gauge x 00 Pen needle Med ical 1/4" [facility] quick pen Insulin 2019- Yes [id number] Before [facility] [place], 1-11 meals, dx ity of Disposable, 00:00: code E11.9 [place] 31 gauge x 00 Pen needle Med ical 1/4" [facility] quick pen Insulin 2019- Yes [id number] Before [facility] [place], 1-11 meals, dx ity of Disposable, 00:00: code E11.9 [place] 31 gauge x 00 Pen needle Med ical 1/4" [facility] quick pen Insulin 2019- Yes [id number] Before [facility] [place], 1-11 meals, dx ity of Disposable, 00:00: code E11.9 [place] 31 gauge x 00 Pen needle Med ical 1/4" [facility] quick pen Insulin 2019- Yes [id number] Before [facility] [place], 1-11 meals, dx ity of Disposable, 00:00: code E11.9 [place] 31 gauge x 00 Pen needle Med ical 1/4" [facility] quick pen Insulin 2019- Yes [id number] Before [facility] [place], 1-11 meals, dx ity of Disposable, 00:00: code E11.9 [place] 31 gauge x 00 Pen needle Med ical 1/4" [facility] quick pen Insulin 2019- Yes [id number] Before [facility] [place], 1-11 meals, dx ity of Disposable, 00:00: code E11.9 [place] 31 gauge x 00 Pen needle Med ical 1/4" [facility] quick pen Insulin 2018-2021- No [id number] Before [facility] [place], 1-11 12-15 meals, dx ity o f Disposable, 00:00: 00:00 code E11.9 [place] 31 gauge x 00 :00 Pen needle Med ical 1/4" [facility] quick pen COLCRYS 0.6 2019-0 Yes [id number] .6mg TAKE 1 [facility] mg tablet 2-19 TABLET BY ity o f 00:00: MOUTH [place] 00 DAILY [facility] COLCRYS 0.6 2019-0 Yes [id number] .6mg TAKE 1 [facility] mg tablet 2-19 TABLET BY ity o f 00:00: MOUTH DAILY [facility] COLCRYS 0.6 2019-0 Yes [id number] .6mg TAKE 1 [facility] mg tablet 2-19 TABLET BY ity o f 00:00: MOUTH 00 DAILY [facility] COLCRYS 0.6 2019-0 Yes [id number] .6mg TAKE 1 [facility] mg tablet 2-19 TABLET BY ity o f 00:00: MOUTH DAILY [facility] COLCRYS 0.6 2019-0 Yes [id number] .6mg TAKE 1 [facility] mg tablet 2-19 TABLET BY ity o f 00:00: MOUTH DAILY [facility] COLCRYS 0.6 2019-0 Yes [id number] .6mg TAKE 1 [facility] mg tablet 2-19 TABLET BY ity o f 00:00: MOUTH DAILY [facility] COLCRYS 0.6 2019-0 Yes [id number] .6mg TAKE 1 [facility] mg tablet 2-19 TABLET BY ity o f 00:00: DAILY [facility] COLCRYS 0.6 2019-0 Yes [id number] .6mg TAKE 1 [facility] mg tablet 2-19 TABLET BY ity o f 00:00: MOUTH DAILY [facility] COLCRYS 0.6 2019-0 Yes [id number] .6mg TAKE 1 [facility] mg tablet 2-19 TABLET BY ity o f 00:00: MOUTH DAILY [facility] COLCRYS 0.6 2019-0 Yes [id number] .6mg TAKE 1 [facility] mg tablet 2-19 TABLET BY ity o f 00:00: MOUTH DAILY [facility] COLCRYS 0.6 2019-0 Yes [id number] .6mg TAKE 1 [facility] mg tablet 2-19 TABLET BY ity o f 00:00: MOUTH DAILY [facility] COLCRYS 0.6 2019-0 Yes [id number] .6mg TAKE 1 [facility] mg tablet 2-19 TABLET BY ity o f 00:00: MOUTH DAILY [facility] COLCRYS 0.6 2019-0 Yes [id number] .6mg TAKE 1 [facility] mg tablet 2-19 TABLET BY ity o f 00:00: MOUTH DAILY [facility] COLCRYS 0.6 2019-0 Yes [id number] .6mg TAKE 1 [facility] mg tablet 2-19 TABLET BY ity o f 00:00: MOUTH DAILY [facility] COLCRYS 0.6 2019-0 Yes [id number] .6mg TAKE 1 [facility] mg tablet 2-19 TABLET BY ity o f 00:00: MOUTH 00 DAILY [facility] COLCRYS 0.6 2019-0 Yes [id number] .6mg TAKE 1 [facility] mg tablet 2-19 TABLET BY ity o f 00:00: MOUTH 00 DAILY [facility] COLCRYS 0.6 2019-0 Yes [id number] .6mg TAKE 1 [facility] mg tablet 2-19 TABLET BY ity o f 00:00: MOUTH 00 DAILY [facility] COLCRYS 0.6 2019-0 Yes [id number] .6mg TAKE 1 [facility] mg tablet 2-19 TABLET BY ity o f 00:00: MOUTH 00 DAILY [facility] COLCRYS 0.6 2019-0 Yes [id number] .6mg TAKE 1 [facility] mg tablet 2-19 TABLET BY ity o f 00:00: MOUTH DAILY [facility] COLCRYS 0.6 2019-0 Yes [id number] .6mg TAKE 1 [facility] mg tablet 2-19 TABLET BY ity o f 00:00: MOUTH DAILY [facility] COLCRYS 0.6 2019-0 Yes [id number] .6mg TAKE 1 [facility] mg tablet 2-19 TABLET BY ity o f 00:00: MOUTH DAILY [facility] COLCRYS 0.6 2019-0 Yes [id number] .6mg TAKE 1 [facility] mg tablet 2-19 TABLET BY ity o f 00:00: MOUTH DAILY [facility] COLCRYS 0.6 2019-0 Yes [id number] .6mg TAKE 1 [facility] mg tablet 2-19 TABLET BY ity o f 00:00: MOUTH 00 DAILY [facility] COLCRYS 0.6 2019-0 Yes [id number] .6mg TAKE 1 [facility] mg tablet 2-19 TABLET BY ity o f 00:00: MOUTH DAILY [facility] COLCRYS 0.6 2019-0 Yes [id number] .6mg TAKE 1 [facility] mg tablet 2-19 TABLET BY ity o f 00:00: MOUTH 00 DAILY [facility] COLCRYS 0.6 2019-0 Yes [id number] .6mg TAKE 1 [facility] mg tablet 2-19 TABLET BY ity o f 00:00: MOUTH [place] 00 DAILY [facility] Immunizations Ordered Filled Immunization Date Status Comments Sour e Immunization Name Name SARS-COV-2 COVID-19 2020-11-07 Completed Unive [facility] of PFIZER VACCINE 00:00:00 [facility] SARS-COV-2 COVID-19 2020-11-07 Completed Unive rsity of PFIZER VACCINE 00:00:00 [facility] SARS-COV-2 COVID-19 2020-11-07 Completed Unive rs[facility] of PFIZER VACCINE 00:00:00 [facility] SARS-COV-2 COVID-19 2020-11-07 Completed Unive rsity of PFIZER VACCINE 00:00:00 [facility] SARS-COV-2 COVID-19 2020-11-07 Completed Unive rsity of PFIZER VACCINE 00:00:00 [facility] SARS-COV-2 COVID-19 2020-11-07 Completed Unive rsity of PFIZER VACCINE 00:00:00 [facility] SARS-COV-2 COVID-19 2020-11-07 Completed Unive rsity of PFIZER VACCINE 00:00:00 [facility] SARS-COV-2 COVID-19 2020-11-07 Completed Unive rsity of PFIZER VACCINE 00:00:00 [facility] SARS-COV-2 COVID-19 2020-11-07 Completed Unive rsity of PFIZER VACCINE 00:00:00 [facility] SARS-COV-2 COVID-19 2020-11-07 Completed Unive rsity of PFIZER VACCINE 00:00:00 [facility] SARS-COV-2 COVID-19 2020-11-07 Completed Unive rsity of PFIZER VACCINE 00:00:00 [facility] SARS-COV-2 COVID-19 2020-11-07 Completed Unive rsity of PFIZER VACCINE 00:00:00 [facility] SARS-COV-2 COVID-19 2020-11-07 Completed Unive rs[facility] of PFIZER VACCINE 00:00:00 [facility] SARS-COV-2 COVID-19 2020-11-07 Completed Unive rsity of PFIZER VACCINE 00:00:00 [facility] SARS-COV-2 COVID-19 2020-11-07 Completed Unive rsity of PFIZER VACCINE 00:00:00 [facility] SARS-COV-2 COVID-19 2020-11-07 Completed Unive rsity of PFIZER VACCINE 00:00:00 [place] [facility] SARS-COV-2 COVID-19 2020-11-07 Completed Unive rsity of PFIZER VACCINE 00:00:00 [facility] SARS-COV-2 COVID-19 2020-11-07 Completed Unive rsity of PFIZER VACCINE 00:00:00 [facility] SARS-COV-2 COVID-19 2020-11-07 Completed Unive rsity of PFIZER VACCINE 00:00:00 [facility] SARS-COV-2 COVID-19 2020-11-07 Completed Unive rsity of PFIZER VACCINE 00:00:00 [facility] SARS-COV-2 COVID-19 2020-11-07 Completed Unive rsity of PFIZER VACCINE 00:00:00 [facility] SARS-COV-2 COVID-19 2020-11-07 Completed Unive rsity of PFIZER VACCINE 00:00:00 [facility] SARS-COV-2 COVID-19 2020-11-07 Completed Unive rsity of PFIZER VACCINE 00:00:00 [facility] SARS-COV-2 COVID-19 2020-11-07 Completed Unive rsity of PFIZER VACCINE 00:00:00 [facility] SARS-COV-2 COVID-19 2020-11-07 Completed Unive rsity of PFIZER VACCINE 00:00:00 [facility] SARS-COV-2 COVID-19 2020-11-07 Completed Unive rsity of PFIZER VACCINE 00:00:00 [facility] SARS-COV-2 COVID-19 2020-04-19 Completed Unive rsity of PFIZER VACCINE 00:00:00 [facility] SARS-COV-2 COVID-19 2020-04-19 Completed Unive rsity of PFIZER VACCINE 00:00:00 [facility] SARS-COV-2 COVID-19 2020-04-19 Completed Unive rsity of PFIZER VACCINE 00:00:00 [facility] SARS-COV-2 COVID-19 2020-04-19 Completed Unive rsity of PFIZER VACCINE 00:00:00 [facility] SARS-COV-2 COVID-19 2020-04-19 Completed Unive rsity of PFIZER VACCINE 00:00:00 [facility] SARS-COV-2 COVID-19 2020-04-19 Completed Unive rsity of PFIZER VACCINE 00:00:00 [facility] SARS-COV-2 COVID-19 2020-04-19 Completed Unive rsity of PFIZER VACCINE 00:00:00 [facility] SARS-COV-2 COVID-19 2020-04-19 Completed Unive rsity of PFIZER VACCINE 00:00:00 [facility] SARS-COV-2 COVID-19 2020-04-19 Completed Unive rsity of PFIZER VACCINE 00:00:00 [facility] SARS-COV-2 COVID-19 2020-04-19 Completed Unive rsity of PFIZER VACCINE 00:00:00 [facility] SARS-COV-2 COVID-19 2020-04-19 Completed Unive rsity of PFIZER VACCINE 00:00:00 [facility] SARS-COV-2 COVID-19 2020-04-19 Completed Unive rsity of PFIZER VACCINE 00:00:00 [facility] SARS-COV-2 COVID-19 2020-04-19 Completed Unive rsity of PFIZER VACCINE 00:00:00 [facility] SARS-COV-2 COVID-19 2020-04-19 Completed Unive rsity of PFIZER VACCINE 00:00:00 [facility] SARS-COV-2 COVID-19 2020-04-19 Completed Unive rsity of PFIZER VACCINE 00:00:00 [facility] SARS-COV-2 COVID-19 2020-04-19 Completed Unive [facility]ity of PFIZER VACCINE 00:00:00 [facility] SARS-COV-2 COVID-19 2020-04-19 Completed Unive rsity of PFIZER VACCINE 00:00:00 [facility] SARS-COV-2 COVID-19 2020-04-19 Completed Unive rsity of PFIZER VACCINE 00:00:00 [facility] SARS-COV-2 COVID-19 2020-04-19 Completed Unive rsity of PFIZER VACCINE 00:00:00 [facility] SARS-COV-2 COVID-19 2020-04-19 Completed Unive [facility]ity of PFIZER VACCINE 00:00:00 [facility] SARS-COV-2 COVID-19 2020-04-19 Completed Unive rsity of PFIZER VACCINE 00:00:00 [facility] SARS-COV-2 COVID-19 2020-04-19 Completed Unive rsity of PFIZER VACCINE 00:00:00 [facility] SARS-COV-2 COVID-19 2020-04-19 Completed Unive rsity of PFIZER VACCINE 00:00:00 [facility] SARS-COV-2 COVID-19 2020-04-19 Completed Unive rsity of PFIZER VACCINE 00:00:00 [facility] SARS-COV-2 COVID-19 2020-04-19 Completed Unive rsity of PFIZER VACCINE 00:00:00 [facility] SARS-COV-2 COVID-19 2020-04-19 Completed Unive rsity of PFIZER VACCINE 00:00:00 [facility] SARS-COV-2 COVID-19 2020-03-21 Completed Unive rsity of PFIZER VACCINE 00:00:00 [facility] SARS-COV-2 COVID-19 2020-03-21 Completed Unive rsity of PFIZER VACCINE 00:00:00 [facility] SARS-COV-2 COVID-19 2020-03-21 Completed Unive rsity of PFIZER VACCINE 00:00:00 [facility] SARS-COV-2 COVID-19 2020-03-21 Completed Unive rsity of PFIZER VACCINE 00:00:00 [facility] SARS-COV-2 COVID-19 2020-03-21 Completed Unive rsity of PFIZER VACCINE 00:00:00 [facility] SARS-COV-2 COVID-19 2020-03-21 Completed Unive rsity of PFIZER VACCINE 00:00:00 [facility] SARS-COV-2 COVID-19 2020-03-21 Completed Unive rsity of PFIZER VACCINE 00:00:00 [facility] SARS-COV-2 COVID-19 2020-03-21 Completed Unive rsity of PFIZER VACCINE 00:00:00 [facility] SARS-COV-2 COVID-19 2020-03-21 Completed Unive rsity of PFIZER VACCINE 00:00:00 [facility] SARS-COV-2 COVID-19 2020-03-21 Completed Unive rsity of PFIZER VACCINE 00:00:00 [facility] SARS-COV-2 COVID-19 2020-03-21 Completed Unive rsity of PFIZER VACCINE 00:00:00 [facility] SARS-COV-2 COVID-19 2020-03-21 Completed Unive rsity of PFIZER VACCINE 00:00:00 [facility] SARS-COV-2 COVID-19 2020-03-21 Completed Unive rsity of PFIZER VACCINE 00:00:00 [facility] SARS-COV-2 COVID-19 2020-03-21 Completed Unive rsity of PFIZER VACCINE 00:00:00 [facility] SARS-COV-2 COVID-19 2020-03-21 Completed Unive rsity of PFIZER VACCINE 00:00:00 [facility] SARS-COV-2 COVID-19 2020-03-21 Completed Unive rsity of PFIZER VACCINE 00:00:00 [facility] SARS-COV-2 COVID-19 2020-03-21 Completed Unive rsity of PFIZER VACCINE 00:00:00 [facility] SARS-COV-2 COVID-19 2020-03-21 Completed Unive rsity of PFIZER VACCINE 00:00:00 [facility] SARS-COV-2 COVID-19 2020-03-21 Completed Unive rsity of PFIZER VACCINE 00:00:00 [facility] SARS-COV-2 COVID-19 2020-03-21 Completed Unive rsity of PFIZER VACCINE 00:00:00 [facility] SARS-COV-2 COVID-19 2020-03-21 Completed Unive rsity of PFIZER VACCINE 00:00:00 [facility] SARS-COV-2 COVID-19 2020-03-21 Completed Unive rsity of PFIZER VACCINE 00:00:00 [facility] SARS-COV-2 COVID-19 2020-03-21 Completed Unive rsity of PFIZER VACCINE 00:00:00 [facility] SARS-COV-2 COVID-19 2020-03-21 Completed Unive rsity of PFIZER VACCINE 00:00:00 [facility] SARS-COV-2 COVID-19 2020-03-21 Completed Unive rsity of PFIZER VACCINE 00:00:00 [facility] SARS-COV-2 COVID-19 2020-03-21 Completed Unive rsity of PFIZER VACCINE 00:00:00 [facility] Influenza High Dose 2019-05-29 Completed Unive rsity of 00:00:00 [facility] Influenza High Dose 2019-05-29 Completed Unive rsity of 00:00:00 [facility] Influenza High Dose 2019-05-29 Completed Unive rsity of 00:00:00 [facility] Influenza High Dose 2019-05-29 Completed Unive rsity of 00:00:00 [facility] Influenza High Dose 2019-05-29 Completed Unive rsity of 00:00:00 [facility] Influenza High Dose 2019-05-29 Completed Unive rsity of 00:00:00 [facility] Influenza High Dose 2019-05-29 Completed Unive rsity of 00:00:00 [facility] Influenza High Dose 2019-05-29 Completed Unive rsity of 00:00:00 [facility] Influenza High Dose 2019-05-29 Completed Unive rsity of 00:00:00 [facility] Influenza High Dose 2019-05-29 Completed Unive rsity of 00:00:00 [facility] Influenza High Dose 2019-05-29 Completed Unive rsity of 00:00:00 [facility] Influenza High Dose 2019-05-29 Completed Unive rsity of 00:00:00 [facility] Influenza High Dose 2019-05-29 Completed Unive rsity of 00:00:00 [facility] Influenza High Dose 2019-05-29 Completed Unive rsity of 00:00:00 [facility] Influenza High Dose 2019-05-29 Completed Unive rsity of 00:00:00 [facility] Influenza High Dose 2019-05-29 Completed Unive rsity of 00:00:00 [facility] Influenza High Dose 2019-05-29 Completed Unive rsity of 00:00:00 [facility] Influenza High Dose 2019-05-29 Completed Unive rsity of 00:00:00 [facility] Influenza High Dose 2019-05-29 Completed Unive rsity of 00:00:00 [facility] Influenza High Dose 2019-05-29 Completed Unive rsity of 00:00:00 [facility] Influenza High Dose 2019-05-29 Completed Unive rsity of 00:00:00 [facility] Influenza High Dose 2019-05-29 Completed Unive rsity of 00:00:00 [facility] Influenza High Dose 2019-05-29 Completed Unive rsity of 00:00:00 [facility] Influenza High Dose 2019-05-29 Completed Unive rsity of 00:00:00 [facility] Influenza High Dose 2019-05-29 Completed Unive rsity of 00:00:00 [facility] Influenza High Dose 2019-05-29 Completed Unive rsity of 00:00:00 [facility] Influenza High Dose 2017-02-10 Completed Unive rsity of 00:00:00 [facility] Influenza High Dose 2017-02-10 Completed Unive rsity of 00:00:00 [facility] Influenza High Dose 2017-02-10 Completed Unive rsity of 00:00:00 [facility] Influenza High Dose 2017-02-10 Completed Unive rsity of 00:00:00 [facility] Influenza High Dose 2017-02-10 Completed Unive rsity of 00:00:00 [facility] Influenza High Dose 2017-02-10 Completed Unive rsity of 00:00:00 [facility] Influenza High Dose 2017-02-10 Completed Unive rsity of 00:00:00 [facility] Influenza High Dose 2017-02-10 Completed Unive rsity of 00:00:00 [facility] Influenza High Dose 2017-02-10 Completed Unive rsity of 00:00:00 [facility] Influenza High Dose 2017-02-10 Completed Unive rsity of 00:00:00 [facility] Influenza High Dose 2017-02-10 Completed Unive rsity of 00:00:00 [facility] Influenza High Dose 2017-02-10 Completed Unive rsity of 00:00:00 [facility] Influenza High Dose 2017-02-10 Completed Unive rsity of 00:00:00 [facility] Influenza High Dose 2017-02-10 Completed Unive rsity of 00:00:00 [facility] Influenza High Dose 2017-02-10 Completed Unive rsity of 00:00:00 [facility] Influenza High Dose 2017-02-10 Completed Unive rsity of 00:00:00 [facility] Influenza High Dose 2017-02-10 Completed Unive rsity of 00:00:00 [facility] Influenza High Dose 2017-02-10 Completed Unive rsity of 00:00:00 [facility] Influenza High Dose 2017-02-10 Completed Unive rsity of 00:00:00 [facility] Influenza High Dose 2017-02-10 Completed Unive rsity of 00:00:00 [facility] Influenza High Dose 2017-02-10 Completed Unive rsity of 00:00:00 [facility] Influenza High Dose 2017-02-10 Completed Unive rsity of 00:00:00 [facility] Influenza High Dose 2017-02-10 Completed Unive rsity of 00:00:00 [facility] Influenza High Dose 2017-02-10 Completed Unive rsity of 00:00:00 [facility] Influenza High Dose 2017-02-10 Completed Unive rsity of 00:00:00 [facility] Influenza High Dose 2017-02-10 Completed Unive rsity of 00:00:00 [facility] Influenza High Dose 2015-12-25 Completed Unive rsity of 00:00:00 [facility] Influenza High Dose 2015-12-25 Completed Unive rsity of 00:00:00 [facility] Influenza High Dose 2015-12-25 Completed Unive rsity of 00:00:00 [facility] Influenza High Dose 2015-12-25 Completed Unive rsity of 00:00:00 [facility] Influenza High Dose 2015-12-25 Completed Unive rsity of 00:00:00 [facility] Influenza High Dose 2015-12-25 Completed Unive rsity of 00:00:00 [facility] Influenza High Dose 2015-12-25 Completed Unive rsity of 00:00:00 [facility] Influenza High Dose 2015-12-25 Completed Unive rsity of 00:00:00 [facility] Influenza High Dose 2015-12-25 Completed Unive rsity of 00:00:00 [facility] Influenza High Dose 2015-12-25 Completed Unive rsity of 00:00:00 [facility] Influenza High Dose 2015-12-25 Completed Unive rsity of 00:00:00 [facility] Influenza High Dose 2015-12-25 Completed Unive rsity of 00:00:00 [facility] Influenza High Dose 2015-12-25 Completed Unive rsity of 00:00:00 [facility] Influenza High Dose 2015-12-25 Completed Unive rsity of 00:00:00 [facility] Influenza High Dose 2015-12-25 Completed Unive rsity of 00:00:00 [facility] Influenza High Dose 2015-12-25 Completed Unive rsity of 00:00:00 [facility] Influenza High Dose 2015-12-25 Completed Unive rsity of 00:00:00 [facility] Influenza High Dose 2015-12-25 Completed Unive rsity of 00:00:00 [facility] Influenza High Dose 2015-12-25 Completed Unive rsity of 00:00:00 [facility] Influenza High Dose 2015-12-25 Completed Unive rsity of 00:00:00 [facility] Influenza High Dose 2015-12-25 Completed Unive rsity of 00:00:00 [facility] Influenza High Dose 2015-12-25 Completed Unive rsity of 00:00:00 [facility] Influenza High Dose 2015-12-25 Completed Unive rsity of 00:00:00 [facility] Influenza High Dose 2015-12-25 Completed Unive rsity of 00:00:00 [facility] Influenza High Dose 2015-12-25 Completed Unive rsity of 00:00:00 [facility] Influenza High Dose 2015-12-25 Completed [facility] of 00:00:00 [facility] [facility] Influ[facility] Dose 2015-03-20 Completed Unive rsity of 00:00:00 [facility] TDAP 2015-03-20 Completed University of 00:00:00 [facility] Influenza High Dose 2015-03-20 Completed Unive rsity of 00:00:00 [facility] TDAP 2015-03-20 Completed University of 00:00:00 [facility] Influenza High Dose 2015-03-20 Completed Unive rsity of 00:00:00 [facility] TDAP 2015-03-20 Completed University of 00:00:00 [facility] Influenza High Dose 2015-03-20 Completed Unive rsity of 00:00:00 [facility] TDAP 2015-03-20 Completed University of 00:00:00 [facility] Influenza High Dose 2015-03-20 Completed Unive rsity of 00:00:00 [facility] TDAP 2015-03-20 Completed University of 00:00:00 [facility] Influenza High Dose 2015-03-20 Completed Unive rsity of 00:00:00 [facility] TDAP 2015-03-20 Completed University of 00:00:00 [facility] Influenza High Dose 2015-03-20 Completed Unive rsity of 00:00:00 [facility] TDAP 2015-03-20 Completed University of 00:00:00 [facility] Influenza High Dose 2015-03-20 Completed Unive rsity of 00:00:00 [facility] TDAP 2015-03-20 Completed University of 00:00:00 [facility] Influenza High Dose 2015-03-20 Completed Unive rsity of 00:00:00 [facility] TDAP 2015-03-20 Completed University of 00:00:00 [facility] Influenza High Dose 2015-03-20 Completed Unive rsity of 00:00:00 [facility] TDAP 2015-03-20 Completed University of 00:00:00 [facility] Influenza High Dose 2015-03-20 Completed Unive rsity of 00:00:00 [facility] TDAP 2015-03-20 Completed University of 00:00:00 [facility] Influenza High Dose 2015-03-20 Completed Unive rsity of 00:00:00 [facility] TDAP 2015-03-20 Completed University of 00:00:00 [facility] Influenza High Dose 2015-03-20 Completed Unive rsity of 00:00:00 [facility] TDAP 2015-03-20 Completed University of 00:00:00 [facility] Influenza High Dose 2015-03-20 Completed Unive rsity of 00:00:00 [facility] TDAP 2015-03-20 Completed University of 00:00:00 [facility] Influenza High Dose 2015-03-20 Completed Unive rsity of 00:00:00 [facility] TDAP 2015-03-20 Completed University of 00:00:00 [facility] Influenza High Dose 2015-03-20 Completed Unive rsity of 00:00:00 [facility] TDAP 2015-03-20 Completed University of 00:00:00 [facility] Influenza High Dose 2015-03-20 Completed Unive rsity of 00:00:00 [facility] TDAP 2015-03-20 Completed University of 00:00:00 [facility] Influenza High Dose 2015-03-20 Completed Unive rsity of 00:00:00 [facility] TDAP 2015-03-20 Completed University of 00:00:00 [facility] Influenza High Dose 2015-03-20 Completed Unive rsity of 00:00:00 [facility] TDAP 2015-03-20 Completed University of 00:00:00 [facility] Influenza High Dose 2015-03-20 Completed Unive rsity of 00:00:00 [facility] TDAP 2015-03-20 Completed University of 00:00:00 [facility] Influenza High Dose 2015-03-20 Completed Unive rsity of 00:00:00 [facility] TDAP 2015-03-20 Completed University of 00:00:00 [facility] Influenza High Dose 2015-03-20 Completed Unive rsity of 00:00:00 [facility] TDAP 2015-03-20 Completed University of 00:00:00 [facility] Influenza High Dose 2015-03-20 Completed Unive rsity of 00:00:00 [facility] TDAP 2015-03-20 Completed University of 00:00:00 [facility] Influenza High Dose 2015-03-20 Completed Unive rsity of 00:00:00 [facility] TDAP 2015-03-20 Completed University of 00:00:00 [facility] Influenza High Dose 2015-03-20 Completed Unive rsity of 00:00:00 [facility] TDAP 2015-03-20 Completed University of 00:00:00 [facility] Influenza High Dose 2015-03-20 Com[facility] 00:00:00 [facility] Pneumococcal 13 2014-08-01 Completed Universit y of [...] Completed Universit y of Conjugate, PCV13 00:00:00 [facility] dical (Prevnar 13) Branch Influenza High Dose 2013-11-29 Completed Unive rsity of 00:00:00 [facility] Influenza High Dose 2013-11-29 Completed Unive rsity of 00:00:00 [facility] Influenza High Dose 2013-11-29 Completed Unive rsity of 00:00:00 [facility] Influenza High Dose 2013-11-29 Completed Unive rsity of 00:00:00 [facility] Influenza High Dose 2013-11-29 Completed Unive rsity of 00:00:00 [facility] Influenza High Dose 2013-11-29 Completed Unive rsity of 00:00:00 [facility] Influenza High Dose 2013-11-29 Completed Unive rsity of 00:00:00 [facility] Influenza High Dose 2013-11-29 Completed Unive rsity of 00:00:00 [facility] Influenza High Dose 2013-11-29 Completed Unive rsity of 00:00:00 [facility] Influenza High Dose 2013-11-29 Completed Unive rsity of 00:00:00 [facility] Influenza High Dose 2013-11-29 Completed Unive rsity of 00:00:00 [facility] Influenza High Dose 2013-11-29 Completed Unive rsity of 00:00:00 [facility] Influenza High Dose 2013-11-29 Completed Unive rsity of 00:00:00 [facility] Influenza High Dose 2013-11-29 Completed Unive rsity of 00:00:00 [facility] Influenza High Dose 2013-11-29 Completed Unive rsity of 00:00:00 [facility] Influenza High Dose 2013-11-29 Completed Unive rsity of 00:00:00 [facility] Influenza High Dose 2013-11-29 Completed Unive rsity of 00:00:00 [facility] Influenza High Dose 2013-11-29 Completed Unive rsity of 00:00:00 [facility] Influenza High Dose 2013-11-29 Completed Unive rsity of 00:00:00 [facility] Influenza High Dose 2013-11-29 Completed Unive rsity of 00:00:00 [facility] Influenza High Dose 2013-11-29 Completed Unive rsity of 00:00:00 [facility] Influenza High Dose 2013-11-29 Completed Unive rsity of 00:00:00 [facility] Influenza High Dose 2013-11-29 Completed Unive rsity of 00:00:00 [facility] Influenza High Dose 2013-11-29 Completed Unive rsity of 00:00:00 [facility] Influenza High Dose 2013-11-29 Completed Unive rsity of 00:00:00 [facility] Influenza High Dose 2013-11-29 Completed Unive rsity of 00:00:00 [facility] Influenza High Dose 2013-04-07 Completed Unive rsity of 00:00:00 [facility] Influenza High Dose 2013-04-07 Completed Unive rsity of 00:00:00 [facility] Influenza High Dose 2013-04-07 Completed Unive rsity of 00:00:00 [facility] Influenza High Dose 2013-04-07 Completed Unive rsity of 00:00:00 [facility] Influenza High Dose 2013-04-07 Completed Unive rsity of 00:00:00 [facility] Influenza High Dose 2013-04-07 Completed Unive rsity of 00:00:00 [facility] Influenza High Dose 2013-04-07 Completed Unive rsity of 00:00:00 [facility] Influenza High Dose 2013-04-07 Completed Unive rsity of 00:00:00 [facility] Influenza High Dose 2013-04-07 Completed Unive rsity of 00:00:00 [facility] Influenza High Dose 2013-04-07 Completed Unive rsity of 00:00:00 [facility] Influenza High Dose 2013-04-07 Completed Unive rsity of 00:00:00 [facility] Influenza High Dose 2013-04-07 Completed Unive rsity of 00:00:00 [facility] Influenza High Dose 2013-04-07 Completed Unive rsity of 00:00:00 [facility] Influenza High Dose 2013-04-07 Completed Unive rsity of 00:00:00 [facility] Influenza High Dose 2013-04-07 Completed Unive rsity of 00:00:00 [facility] Influenza High Dose 2013-04-07 Completed Unive rsity of 00:00:00 [facility] Influenza High Dose 2013-04-07 Completed Unive rsity of 00:00:00 [facility] Influenza High Dose 2013-04-07 Completed Unive rsity of 00:00:00 [facility] Influenza High Dose 2013-04-07 Completed Unive rsity of 00:00:00 [facility] Influenza High Dose 2013-04-07 Completed Unive rsity of 00:00:00 [facility] Influenza High Dose 2013-04-07 Completed Unive rsity of 00:00:00 [facility] Influenza High Dose 2013-04-07 Completed Unive rsity of 00:00:00 [facility] Influenza High Dose 2013-04-07 Completed Unive rsity of 00:00:00 [facility] Influenza High Dose 2013-04-07 Completed Unive rsity of 00:00:00 [facility] Influenza High Dose 2013-04-07 Completed Unive rsity of 00:00:00 [facility] Influenza High Dose 2013-04-07 Completed Unive rsity of 00:00:00 [facility] Influenza Virus 2009-12-24 Completed Universit y of Vaccine 00:00:00 [facility] Influenza Virus 2009-12-24 Completed Universit y of Vaccine 00:00:00 [facility] Influenza Virus 2009-12-24 Completed Universit y of Vaccine 00:00:00 [facility] Influenza Virus 2009-12-24 Completed Universit y of Vaccine 00:00:00 [facility] Influenza Virus 2009-12-24 Completed Universit y of Vaccine 00:00:00 [facility] Influenza Virus 2009-12-24 Completed Universit y of Vaccine 00:00:00 [facility] Influenza Virus 2009-12-24 Completed Universit y of Vaccine 00:00:00 [facility] Influenza Virus 2009-12-24 Completed Universit y of Vaccine 00:00:00 [facility] Influenza Virus 2009-12-24 Completed Universit y of Vaccine 00:00:00 [facility] Influenza Virus 2009-12-24 Completed Universit y of Vaccine 00:00:00 [facility] Influenza Virus 2009-12-24 Completed Universit y of Vaccine 00:00:00 [facility] Influenza Virus 2009-12-24 Completed Universit y of Vaccine 00:00:00 [facility] Influenza Virus 2009-12-24 Completed Universit y of Vaccine 00:00:00 [facility] Influenza Virus 2009-12-24 Completed Universit y of Vaccine 00:00:00 [facility] Influenza Virus 2009-12-24 Completed Universit y of Vaccine 00:00:00 [facility] Influenza Virus 2009-12-24 Completed Universit y of Vaccine 00:00:00 [facility] Influenza Virus 2009-12-24 Completed Universit y of Vaccine 00:00:00 [facility] Influenza Virus 2009-12-24 Completed Universit y of Vaccine 00:00:00 [facility] Influenza Virus 2009-12-24 Completed Universit y of Vaccine 00:00:00 [facility] Influenza Virus 2009-12-24 Completed Universit y of Vaccine 00:00:00 [facility] Influenza Virus 2009-12-24 Completed Universit y of Vaccine 00:00:00 [facility] Influenza Virus 2009-12-24 Completed Universit y of Vaccine 00:00:00 [facility] Influenza Virus 2009-12-24 Completed Universit y of Vaccine 00:00:00 [facility] Influenza Virus 2009-12-24 Completed Universit y of Vaccine 00:00:00 [facility] Influenza Virus 2009-12-24 Completed Universit y of Vaccine 00:00:00 [facility] Influenza Virus 2009-12-24 Completed Universit y of Vaccine 00:00:00 [facility] Pneumococcal 2008-06-23 Completed University o f Polysaccharide, [...] Polysaccharide, 00:00:00 [place] [facility] PPSV23 (PNEUMOVAX) [facility] Vital Signs Vital Name Observation Time Observation Value Comments Source Systolic blood 2022-08-28 03:00:00 186 mm[Hg] Univer sity of pressure [facility] Diastolic blood 2022-08-28 03:00:00 89 mm[Hg] Unive rsity of pressure [facility] Heart rate 2022-08-28 03:00:00 84 /min Universi ty of [facility] Respiratory rate 2022-08-28 03:00:00 18 /min [facility] Oxygen saturation in 2022-08-28 03:00:00 96 /min [facility] Arterial blood by [facility] Pulse oximetry Branch Body temperature 2022-08-28 02:17:59 36.56 Fabienne [facility] Body height 2022-08-28 02:06:00 175.3 cm Universi ty of [facility] Body weight 2022-08-28 02:06:00 154.223 kg Universi ty of [facility] BMI 2022-08-28 02:06:00 50.21 kg/m2 Universi ty [facility] Systolic blood 2021-11-08 19:31:00 166 mm[Hg] Univer sity of [facility] Diastolic blood 2021-11-08 19:31:00 83 mm[Hg] Unive rsity of [facility] Heart rate 2021-11-08 19:31:00 71 /min Universi ty of [facility] Body temperature 2021-11-08 19:30:00 36.67 Fabienne [facility] Respiratory rate 2021-11-08 19:30:00 18 /min [facility] Body height 2021-11-08 19:30:00 175.3 cm Universi ty of [facility] Body weight 2021-11-08 19:30:00 154.223 kg Universi ty of [facility] BMI 2021-11-08 19:30:00 50.21 kg/m2 Universi [facility] Procedures Procedure Date / Time Performing Clinician Source Performed EKG-12 LEAD 2022-08-28 03:39:43 Kevin De La Cruz [facility] TROPONIN I 2022-08-28 02:17:00 Kevin De La Cruz [facility] COMP. METABOLIC PANEL 2022-08-28 02:17:00 Kevin De La Cruz [facility] ([id number]) [facility] CBC WITH DIFF 2022-08-28 02:17:00 Kevin De La Cruz [facility] PROTHROMBIN TIME / INR 2022-08-28 02:17:00 [facility] ACTIVATED PARTIAL 2022-08-28 02:17:00 Kevin De La Cruz [facility] THRMPLAS [facility] HB ABO GROUPING 2022-08-28 02:17:00 Kevin De La Cruz [facility] N-TERMINAL PRO-BNP 2022-08-28 02:17:00 Kevin De La Cruz [facility] CONSENT/REFUSAL FOR 2022-08-28 02:00:50 Doctor Unassigned, No Un [facility] DIAGNOSIS AND TREATMENT Name [facility] Encounters Start End Encounter Admission Attending Care Care Encounter Source Date/Time Date/Time Type Type Clinicians Facility Department ID 2020-12-21 Emergency [facility] [id number] Univers 21:28:42 ity [facility] 2022-09-08 2022-09-08 Refill [facility] 1.2.840.114 [id number] Univers 00:00:00 00:00:00 , [facility] [id number] ity of Monique GOMEZ [id number] Stephen as SHRADDHA?BLEA [id number] Ut alice LUNDBERG [address] [place] [address] MEDICAL OFFICE BUILDING 2022-08-27 2022-08-27 Emergency X [facility] ERT [id number] Univers 21:01:00 23:17:00 [facility] 2022-08-27 2022-08-27 Emergency [facility] [id number] Univers 21:01:00 23:17:00 Kevin GOMEZ [id number] i ty of AUDIE 4.2.7.2.686 [facility] [id number] [facility] 084 Branch 2022-08-27 2022-08-27 Nurse TONYA Rodríguez [id number] Univers 00:00:00 00:00:00 Triage Tash ALEMAN [id number] i ty of [facility] [id number] Stephen as [id number] [address] 2022-08-21 2022-08-21 Outpatient R CALLIE [facility] [id number] Univers 16:30:00 16:30:00 DELROY mendiola [facility] 2022-08-17 2022-08-17 Refill [facility] 1.2.840.114 [id number] Univers 00:00:00 00:00:00 , EsperanzaSkritter [id number] ity of [place] [id number] Stephen as SHRADDHA?BLEA [id number] [address] MEDICAL OFFICE [facility] 2022-05-22 2022-05-22 Outpatient R [facility] [id number] Univers 15:45:00 15:45:00 , ESPERANZA buck y [facility] 2022-04-17 2022-04-17 Refill [facility] 1.2.840.114 [id number] Univers 00:00:00 00:00:00 [facility] [id number] ity of [place] [id number] Stephen as SHRADDHA?BLEA [id number] [address] MEDICAL OFFICE [facility] 2022-04-14 2022-04-14 Refill [facility] 1.2.840.114 [id number] Univers 00:00:00 00:00:00 , Esperanza [employer] [id number] ity of [place] [id number] Stephen as SHRADDHA?BLEA [id number] [address] MEDICAL OFFICE [facility] 2022-04-11 2022-04-11 Outpatient R [facility] [id number] Univers 15:45:00 15:45:00 , ESPERANZA buck y [facility] 2022-04-06 2022-04-06 Refill [facility] 1.2.840.114 [id number] Univers 00:00:00 00:00:00 , Esperanza [facility] [id number] ity of [place] [id number] Stephen as SHRADDHA?BLEA [id number] Ut alice LUNDBERG [address] [place] [address] MEDICAL OFFICE BUILDING 2022-03-14 2022-03-14 Outpatient R RAMSEY [facility] [id number] Univers 16:00:00 16:00:00 , ESPERANZA it y of [facility] 2022-02-25 2022-02-25 Refill Pooja Lord 1.2.840.114 [id number] Univers 00:00:00 00:00:00 Ali [facility] 350.1.13.10 ity [place]2.[place] [id number] [address] 2022-01-31 2022-01-31 Refill Ramsey HYDEIN 1.2.840.114 [id number] Univers 00:00:00 00:00:00 , [place]anza [facility] [id number] ity [place]2.[place] [id number] [address] 2022-01-25 2022-01-25 Refill Ramsey HYDEIN 1.2.840.114 [id number] Univers 00:00:00 00:00:00 , [place]anza [facility] [id number] ity [place]2.[place] [id number] [address] 2022-01-25 2022-01-25 Refill Ramsey HYDEIN 1.2.840.114 [id number] Univers 00:00:00 00:00:00 , [place]anza [facility] [id number] ity [place]2.[place] [id number] [address] 2022-01-25 2022-01-25 Refill Ramsey HYDEIN 1.2.840.114 [id number] Univers 00:00:00 00:00:00 , [place]anza [facility] [id number] ity [place] [id number] [address] 2022-01-25 2022-01-25 Refill Jetmore BRETT 1.2.840.114 [id number] Univers 00:00:00 00:00:00 , [place]anza [facility] [id number] ity [place] [id number] [address] 2022-01-25 2022-01-25 Refill Jetmore BRETT 1.2.840.114 [id number] Univers 00:00:00 00:00:00 , [place]anza [facility] 350.1.13.10 ity [place] [id number] [address] 2022-01-25 2022-01-25 Refill Ramsey BRETT 1.2.840.114 [id number] Univers 00:00:00 00:00:00 , [place]anza P[facility]IC [id number] ity [place] [id number] [address] 2022-01-25 2022-01-25 Refill Jetmore BRETT 1.2.840.114 [id number] Univers 00:00:00 00:00:00 , Esperanza P[facility]IC 350.1.13.10 ity [place] [id number] [address] 2022-01-25 2022-01-25 Refill Jetmore BRETT 1.2.840.114 [id number] Univers 00:00:00 00:00:00 , Esperanza P[facility]RIC [id number] ity [place] [id number] [address] 2022-01-25 2022-01-25 Refill Jetmore BRETT 1.2.840.114 [id number] Univers 00:00:00 00:00:00 , Esperanza P[facility]RIC 350.1.13.10 ity [place] [id number] [address] 2022-01-09 2022-01-09 Refill Ramsey HYDEIN 1.2.840.114 [id number] Univers 00:00:00 00:00:00 , Esperanza PEDIATRIC [id number] ity [place] [id number] [address] 2022-01-09 2022-01-09 Refill Ramsey HYDEIN 1.2.840.114 [id number] Univers 00:00:00 00:00:00 , Esperanza P[facility]IC 350.1.13.10 ity [place] [id number] [address] 2021-12-20 2021-12-20 Refill Pooja Lord 1.2.840.114 [id number] Univers 00:00:00 00:00:00 Ali PEDIATRIC 350.1.13.10 ity [place] [id number] [address] 2021-12-13 2021-12-13 Outpatient R RAMSEY [facility] [id number] Univers 15:15:00 15:15:00 , ESPERANZA it y of [facility] 2021-11-13 2021-11-13 Refill Ramsey HYDEIN 1.2.840.114 [id number] Univers 00:00:00 00:00:00 , Esperanza PEDIATRIC 350.1.13.10 ity [place] [id number] [address] 2021-11-13 2021-11-13 Refill Ramsey WEST 1.2.840.114 [id number] Univers 00:00:00 00:00:00 , [place]anza PEDIATRIC 350.1.13.10 ity [place] [id number] [address] 2021-11-13 2021-11-13 Pooja Whalen 1.2.840.114 [id number] Univers 00:00:00 00:00:00 Ali PEDIATRIC 350.1.13.10 [place] [id number] [address] 2021-11-08 2021-11-08 Outpatient R [facility] [id number] Univers 15:00:00 15:27:00 , ESPERANZA floyd [facility] 2021-11-08 2021-11-08 Office Ramsey WEST 1.2.840.114 [id number] Univers 15:00:00 15:27:00 Visit , [place]anza PED[facility]ATRIC [id number] ity [place] [id number] [address] 2021-10-06 2021-10-06 Gilmar Garcia 1.2.840.114 [id number] Univers 00:00:00 00:00:00 Y PEDIATRIC 350.1.13.10 ity [place] [id number] [address] 2021-09-27 2021-09-27 Outpatient R [facility] [id number] Univers 16:15:00 16:15:00 , ESPERANZA buck y [facility] 2021-09-13 2021-09-13 Marisa WEST 1.2.840.114 [id number] Univers 00:00:00 00:00:00 , [place] PEDIATRIC 350.1.13.10 ity [place] [id number] [address] 2021-09-10 2021-09-10 Gilmar Garcia 1.2.840.114 [id number] Univers 00:00:00 00:00:00 Y PEDIATRIC 350.1.13.10 it[place] [id number] [address] 2021-09-05 2021-09-05 Orders Doctor TONYA 1.2.840.114 [id number] Univers 00:00:00 00:00:00 Only Unassigned, LOVE 350.1.13.10 ity of [facility] 4.2.7.2.686 Stephen as [id number] [address] 2021-08-30 2021-08-30 Outpatient R RAMSEY [facility] [id number] Univers 16:15:00 16:15:00 , ESPERANZA buck y of [facility] 2021-08-30 2021-08-30 Telephone Ramsey WEST 1.2.840.114 [id number] Univers 00:00:00 00:00:00 , [place] PEDIATRIC 350.1.13.10 ity [place] [id number] [address] 2021-08-24 2021-08-24 Refill Ramsey WEST 1.2.840.114 [id number] Univers 00:00:00 00:00:00 , [place] PEDIATRIC 350.1.13.10 ity [place] [id number] [address] 2021-08-21 2021-08-21 Orders Doctor CASTANEDA 1.2.840.114 [id number] Univers 00:00:00 00:00:00 Only Unassigned, LOVE 350.1.13.10 ity of [facility] 4.2.7.2.686 [place] as [id number] [address] 2021-08-20 2021-08-20 Telephone Ramsey WEST 1.2.840.114 [id number] Univers 00:00:00 00:00:00 , [place] PEDIATRIC 350.1.13.10 ity [place] [id number] [address] 2021-08-19 2021-08-19 Telephone Ramsey BRETT 1.2.840.114 [id number] Univers 00:00:00 00:00:00 , [place] PEDIATRIC 350.1.13.10 ity [place] [id number] [address] 2021-08-13 2021-08-13 Refill Jetmore ALVIN 1.2.840.114 [id number] Univers 00:00:00 00:00:00 , [place] PEDIATRIC 350.1.13.10 ity [place] [id number] [address] 2021-08-07 2021-08-07 Outpatient R RAMSEY [facility] [id number] Univers 15:15:00 15:15:00 , ESPERANZA buck [facility] 2021-07-31 2021-07-31 Outpatient R STEPHANIE [facility] [id number] Univers 15:45:00 15:45:00 NIA buckmariel [facility] 2021-07-29 2021-07-29 Telephone Ramsey WEST 1.2.840.114 [id number] Univers 00:00:00 00:00:00 , [place] PEDIATRIC 350.1.13.10 ity [place] [id number] [address] 2021-07-24 2021-07-24 Outpatient R RAMSEY [facility] [id number] Univers 14:00:00 14:00:00 , ESPERANZA buck [facility] 2021-07-17 2021-07-17 Outpatient R RAMSEY [facility] [id number] Univers 14:00:00 14:44:14 , ESPERANZA buck y [facility] 2021-07-17 2021-07-17 Office Ramseyedenilson WEST 1.2.840.114 [id number] Univers 14:00:00 14:44:14 Visit , [place] PEDIATRIC 350.1.13.10 ity [place] [id number] [address] 2021-07-12 2021-07-12 Outpatient Kecia MUSTAFA [facility] [id number] Univers 15:45:00 15:45:00 , ESPERANZA it y of [facility] 2021-06-26 2021-06-26 Refill Ramsey BRETT 1.2.840.114 [id number] Univers 00:00:00 00:00:00 , [place] PEDIATRIC 350.1.13.10 it[place] [id number] [address] 2021-06-20 2021-06-20 Telephone Ramsey BRETT 1.2.840.114 [id number] Univers 00:00:00 00:00:00 , [place] PEDIATRIC 350.1.13.10 ity [place] [id number] [address] 2021-06-14 2021-06-14 Refill Jetmore BRETT 1.2.840.114 [id number] Univers 00:00:00 00:00:00 , [place] PEDIATRIC 350.1.13.10 ity [place] [id number] [address] 2021-06-14 2021-06-14 Refill Ramsey BRETT 1.2.840.114 [id number] Univers 00:00:00 00:00:00 , [place] PEDIATRIC 350.1.13.10 ity [place] [id number] [address] 2021-04-25 2021-04-25 Refill Ramsey BRETT 1.2.840.114 [id number] Univers 00:00:00 00:00:00 , [place] PEDIATRIC 350.1.13.10 ity [place] [id number] [address] 2021-03-22 2021-03-22 Telephone Jetmore BRETT 1.2.840.114 [id number] Univers 00:00:00 00:00:00 , [place] PEDIATRIC 350.1.13.10 ity [place] [id number] [address] 2021-03-20 2021-03-20 Telephone Jetmore BRETT 1.2.840.114 [id number] Univers 00:00:00 00:00:00 , [place] PEDIATRIC 350.1.13.10 ity [place] [id number] [address] 2021-03-05 2021-03-05 Patient BRETT Knapp 1.2.316.370 [id number] Univers 00:00:00 00:00:00 Secure Msg Mejía PEDIATRIC 350.1.13.10 it[place] [id number] [address] 2021-02-19 2021-02-19 Telephone Jetmore ALVIN 1.2.840.114 [id number] Univers 00:00:00 00:00:00 , [place] PEDIATRIC 350.1.13.10 ity [place] [id number] [address] 2021-02-06 2021-02-06 [facility] 1.2.840.114 [id number] Univers 00:00:00 00:00:00 Olena Amaya PRIMARY 350.1.13.10 ity of [place] [id number] [address] 2021-02-06 2021-02-06 Telephone Jetmore ALVIN 1.2.840.114 [id number] Univers 00:00:00 00:00:00 , [place] PEDIATRIC 350.1.13.10 ity [place] [id number] [address] CLINIC 2021-02-01 2021-02-01 Outpatient R RAMSEY [facility] [id number] Univers 15:45:00 15:45:00 , ESPERANZA it mariel of [facility] 2021-01-31 2021-01-31 Refill Ramsey WEST 1.2.840.114 [id number] Univers 00:00:00 00:00:00 , [place] PEDIATRIC 350.1.13.10 ity [place] [id number] [address] 2021-01-29 2021-01-29 Refill Ramsey WEST 1.2.840.114 [id number] Univers 00:00:00 00:00:00 , [place] PEDIATRIC 350.1.13.10 ity [place] [id number] [address] 2021-01-28 2021-01-28 Refill Ramsey WEST 1.2.840.114 [id number] Univers 00:00:00 00:00:00 , [place] PEDIATRIC 350.1.13.10 ity [place] [id number] [address] 2021-01-26 2021-01-26 Refill Dac, [facility]ERS[facility] 1.2.194.198 [id number] Univers 00:00:00 00:00:[facility] 350.1.13.[facility] of [place] [id number] [place] [address] [place] 2021-01-25 2021-01-25 Refill Ramsey WEST 1.2.840.114 [id number] Univers 00:00:00 00:00:00 , [place] PEDIATRIC 350.1.13.10 ity [place] [id number] [address] 2020-12-11 2020-12-11 Outpatient R ROSHAN [facility] [id number] Univers 15:00:00 15:00:00 SENDTAMEKA [facility] 2020-11-28 2020-11-28 Outpatient R DARSHANA, [facility] [id number] Univers 14:00:00 14:00:00 KYLEIGH [facility] 2020-11-26 2020-11-26 Outpatient Kecia VASQUES, [facility] [id number] Univers 14:00:00 14:00:00 DOUGLAS [facility] 2020-11-22 2020-11-22 Office [facility] 1.2.840.114 [id number] Univers 13:15:00 13:30:00 Visit Aquiles Gomez 350.1.13.10 i ty of [place] [id number] [address] 2020-11-22 2020-11-22 [facility] [id number] Univers 13:15:00 13:15:00 AQUILES [facility] 2020-11-22 2020-11-22 Telephone Ramsey West 1.2.840.114 [id number] Univers 00:00:00 00:00:00 , [place] Pediatric 350.1.13.10 ity of [place] [id number] [address] 2020-11-22 2020-11-22 Telephone Jetmoreedenilson West 1.2.840.114 [id number] Univers 00:00:00 00:00:00 , [place] Pediatric 350.1.13.10 ity of [place] [id number] [address] 2020-11-21 2020-11-21 Office Ramsey West 1.2.840.114 [id number] Univers 15:19:28 15:49:28 Visit , [place] Pediatric 350.1.13.10 ity of [place] [id number] [address] 2020-11-21 2020-11-21 Outpatient R RAMSEY [facility] [id number] Univers 15:45:00 15:45:00 , ESPERANZA floyd of [facility] 2020-11-12 2020-11-12 Outpatient R KELSI [facility] [id number] Univers 14:30:00 14:30:00 BILAL itmariel [facility] 2020-11-12 2020-11-12 Patient Brett Ray 1.2.840.114 [id number] Univers 00:00:00 00:00:00 Outreach Bonita L Pediatric 350.1.13.10 ity of [place] [id number] [address] 2020-11-12 2020-11-12 Patient Brett Ray 1.2.840.114 [id number] Univers 00:00:00 00:00:00 Outreach Bonita L Pediatric 350.1.13.10 ity [place] [id number] [address] 2020-11-12 2020-11-12 Patient Brett Ray 1.2.840.114 [id number] Univers 00:00:00 00:00:00 Outreach Bonita L Pediatric 350.1.13.10 ity [place] [id number] [address] 2020-11-08 2020-11-08 Patient Ramsey West 1.2.840.114 [id number] Univers 00:00:00 00:00:00 Outreach [place] Pediatric 350.1.13.10 ity of [place] [id number] [address] 2020-11-07 2020-11-07 Imm/Inj Vaccine, Brett Family Brett 1.2. 840.114 [id number] Univers 16:00:44 16:10:44 Visit [place] Mustafa Pediatric 350 .1.13.10 ity of [place] [phone] [facility] [address] [facility] 2020-11-07 2020-11-07 Office Ramsey West 1.2.840.114 [id number] Univers 14:35:43 16:09:41 Visit , [place] Pediatric 350.1.13.10 ity of [place] [id number] [place] [address] [facility] 2020-11-07 2020-11-07 Office Ramsey West 1.2.840.114 [id number] Univers 14:35:43 16:09:41 Visit , [place] Pediatric 350.1.13.10 ity of [place] [id number] [address] 2020-11-07 2020-11-07 Outpatient R RAMSEY [facility] [id number] Univers 15:15:00 15:15:00 , ESPERANZA floyd of [facility] 2020-11-07 2020-11-07 Orders Ramsey CASTANEDA 1.2.840.114 [id number] Univers 00:00:00 00:00:00 Only , [place] ALEMAN 350.1.13.10 ity of [facility] 4.2.7.2.686 Stephen as [id number] [address] 2020-10-31 2020-10-31 Outpatient R DEANNE [facility] [id number] Univers 16:00:00 16:00:00 KT mendiola of [facility] 2020-10-25 2020-10-25 Refmoses [facility] 1.2.840.114 [id number] Univers 00:00:00 00:00:00 Olena Amaya PRIMARY 350.1.13.10 it[place] [id number] [address] 2020-10-22 2020-10-22 Refmoses [facility], [facility] 1.2.755.084 [id number] Univers 00:00:00 00:00:00 Olena Amaya [facility] 350.1.13.10 ity of CLINICS 4.2.7.2.686 [place] ku [id number] [address] 2020-10-11 2020-10-11 Outpatient Kceia LEDESMA, [facility] [id number] Univers 13:00:00 13:00:00 DELROY mendiola [facility] 2020-10-01 2020-10-01 Outpatient Kecia PAREDES, [facility] [id number] Univers 19:00:00 19:00:00 DIONNA hill f [facility] 2020-06-16 2020-06-16 Refill [facility] 1.2.840.114 [id number] 00:00:00 00:00:00 Olena Amaya PRIMARY 350.1.13.10 CARE 4.2.7.2.686 PAVILLION [id number] 390 2020-06-13 2020-06-13 Refill [facility], [facility] 1.2.048.401 [id number] 00:00:00 00:00:00 Olena Floyd HEALTH 350.1.13.10 CLINICS 4.2.7.2.686 [id number] 2020-06-12 2020-06-12 [facility] 1.2.267.029 [id number] 00:00:00 00:00:00 Olena Floyd HEALTH 350.1.13.10 CLINICS 4.2.7.2.686 [id number] 076 2020-06-03 2020-06-03 Refill [facility], UNIVERSIT 1.2.802.564 [id number] 00:00:00 00:00:00 Olena Floyd HEALTH 350.1.13.10 CLINICS 4.2.7.2.686 [id number] 076 2020-05-11 2020-05-11 Refill [facility] 1.2.840.114 [id number] 00:00:00 00:00:00 Olena Amaya PRIMARY 350.1.13.10 CARE 4.2.7.2.686 PAVILLION [id number] 390 2020-04-19 2020-04-19 Outpatient Kecia ROMERO, [facility] [id number] Univers 15:30:00 15:30:00 ABDULAZIZ [facility] 2020-04-13 2020-04-13 Outpatient Kecia ROMERO [facility] [id number] Univers 15:40:00 15:40:00 ABDULAZIZ [facility] 2020-04-10 2020-04-10 [facility] 1.2.840.114 [id number] 00:00:00 00:00:00 Olena Amaya PRIMARY 350.1.13.10 CARE 4.2.7.2.686 PAVILLION [id number] 390 2020-03-28 2020-03-28 [facility] 1.2.840.114 [id number] 00:00:00 00:00:00 Olena Amaya PRIMARY 350.1.13.10 CARE 4.2.7.2.686 PAVILLION [id number] 390 2020-03-27 2020-03-27 [facility] 1.2.840.114 [id number] 00:00:00 00:00:00 Olena Amaya PRIMARY 350.1.13.10 CARE 4.2.7.2.686 PAVILLION [id number] 390 2020-03-25 2020-03-25 [facility] 1.2.840.114 [id number] 00:00:00 00:00:00 Aqu[place] 350.1.13.10 [place] 4.2.7.2.686 Professio [id number] [address] 2020-03-21 2020-03-21 Outpatient Kecia VOGEL [facility] [id number] Univers 15:30:00 15:30:00 KIMBER mendiola [facility] 2019-10-18 2019-10-18 Outpatient Kecia HECTOR [facility] [id number] Univers 09:15:00 09:15:00 OLENA mendiola [facility] 2019-06-07 2019-06-07 Outpatient Kecia HECTOR [facility] [id number] Univers 11:15:00 11:15:00 OLENA mendiola [facility] 2019-05-27 2019-05-29 Outpatient Raquel YODER [facility] [id number] Univers 14:59:30 14:00:00 BALJIT [facility] 2019-05-27 2019-05-27 Outpatient R PETR [facility] [id number] Univers 09:30:00 09:30:00 [facility] 2019-05-20 2019-05-20 Outpatient R SHIRA [facility] [id number] Univers 09:00:00 10:44:50 [facility] 2019-05-20 2019-05-20 Outpatient R SHIRA [facility] [id number] Univers 09:00:00 09:00:00 [facility] 2019-04-22 2019-04-22 [facility] [id number] Univers 16:15:00 16:15:00 [facility] 2019-04-22 2019-04-22 Outpatient R PETR [facility] [id number] Univers 15:00:00 15:00:00 [facility] 2019-04-15 2019-04-15 [facility] [id number] Univers 13:30:00 13:55:57 [facility] Results Test Description Test Time Test Comments Results Result Comments Source TROPONIN I 2022-08-28 03:10:18 Test Item Value Reference Range Interpretation Comme nts TROPONIN I (test code = 9800364083) 0.013 ng/mL <=0.034 KHADRA (test code = KHADRA) Reference (Normal) Range (defined by the 99th percentile reference limit): <= 0.034 ng/mL Note: Cardiac troponin begins to rise 3-4 hours after the onset of ischemia. Repeat in 4-6 hours if the sample was drawn within 3-4 hours of the onset of the symptom and found normal. Diagnosis of myocardial injury is made with acute changes in cTn concentrations with at least one serial sample above the 99th percentile upper reference limit (URL), taken together with the patient's clinical presentation. Biotin has been reported to cause a negative bias, interpret results relative to patient's use of biotin. Lab Interpretation (test code = Normal 03284-7) [facility]-TERMINAL [id number] 03:07:17 Test Item Value Reference Range Interpretation Comments NT-proBNP (test code = 149 pg/mL <=450 [id number]) KHADRA (test code = KHADRA) Biotin has been reported to cause a negative bias, interpret results relative to patient's use of biotin. Lab Interpretation (test Normal code = 27075-2) [facility] PARTIAL THRMPLAS [id number] 03:03:18 Test Item Value Reference Range Interpretation Comments APTT Patient (test 25 See_Comment [Automat ed code = 3173-2) message] The system which generated this result transmitted reference range : 23 - 38 Seconds . The reference range was not used to interpr et this result as normal/abnormal . KHADRA (test code = KHADRA) The [facility] patient population mean normal value for aPTT is 30 seconds. Lab Interpretation Normal (test code = 65149-2) [facility] CenterCOMP. METABOLIC PANEL (73720)2022-08-28 03:02:17 Test Item Value Reference Range Interpretation Comments NA (test code = 136 mmol/L 135-145 1177481841) K (test code = 5.2 mmol/L 3.5-5.0 H 9607068942) CL (test code = 99 mmol/L 98-108 7690187615) CO2 TOTAL (test code = 27 mmol/L 23-31 8402323901) AGAP (test code = 10 2-16 6234396669) BUN (test code = 36 mg/dL 7-23 H 9993291905) GLUCOSE (test code = 288 mg/dL 70-110 H 5407823019) CREATININE (test code = 1.97 mg/dL 0.60-1.25 H 6881151549) TOTAL BILI (test code = 0.8 mg/dL 0.1-1.3 5658592635) CALCIUM (test code = 9.0 mg/dL 8.6-10.6 2214607521) T PROTEIN (test code = 7.1 g/dL 6.3-8.2 5768722126) ALBUMIN (test code = 4.0 g/dL 3.5-5.0 6871343582) ALK PHOS (test code = 80 U/L 34-122 9490095330) ALTv (test code = 25 U/L 550 1742-6) AST(SGOT) (test code = 22 U/L 13-40 8974880542) eGFR (test code = 32.8 mL/min/1.73m2 7029229712) KHADRA (test code = KHADRA) Association of Glomerular Filtration Rate (GFR) and Staging of Kidney Disease* + --+ --+ ------+| GFR (mL/min/1.73 m2) ?| With Kidney Damage ?| ?Without Kidney Damage+ --------+ --------+ +| ?>90 ?| ?Stage one ?| ? Normal ?+ ---+ ---+ -------+| ?60-89 ?| ?Stage two ?| ? Decreased GFR ? + --+ --+ ------+| ?30-59 ?| ?Stage three ?| ? Stage three ? + --+ --+ ------+| ?15-29 ?| ?Stage four ? | ? Stage four ?+ ---+ ---+ -------+| ?<15 (or dialysis) ? ?| ?Stage five ? | ? Stage five ?+ ---+ ---+ -------+ *Each stage assumes the associated GFR level has been in effect for at least three months. ?Stages 1 to 5, with or without kidney disease, indicate chronic kidney disease. Notes: Determination of stages one and two (with eGFR >59mL/min/1.73 m2) requires estimation of kidney damage for at least three months as defined by structural or functional abnormalities of the kidney, manifested by either:Pathological abnormalities or Markers of kidney damage (including abnormalities in the composition of the blood or urine or abnormalities in imaging tests). Lab Interpretation Abnormal (test code = 74969-8) [facility] CenterProthrombin Time / [id number] 03:01:16 Test Item Value Reference Range Interpretation Comments PROTIME PATIENT (test 13.3 See_Comment [Auto mated message] code = 5964-2) The system [employer] generated this result transmitted ref erence range: 12.0 - 1 4.7 Seconds. The re ference range was not u sed to interpret this result as normal/abnor mal. INR (test code = 6301-6) 1.1 Nor mal INR <1.1; Warfarin Therap eutic range 2.0 to 3. 0 or 2.5 to 3.5, dep ending upon the indica tions. Lab Interpretation (test Normal code = 13321-7) [facility] WITH [id number] 02:52:37 Test Item Value Reference Range Interpretation Comments WBC (test code = 9.75 See_Comment [Automated message] 0868-2) The system [employer] generated this result transmitted ref erence range: 4.20 - 1 0.70 10*3/?L. The re ference range was not u sed to interpret this result as normal/abnor mal. RBC (test code = 4.60 See_Comment [Automated message] 139-8) The system [employer] generated this result transmitted ref erence range: 4.26 - 5 .52 10*6/?L. The re ference range was not u sed to interpret this result as normal/abnor mal. HGB (test code = 13.5 g/dL 12.2-16.4 718-7) HCT (test code = 40.9 % 38.4-49.3 4544-3) MCV (test code = 88.9 fL 81.7-95.6 787-2) MCH (test code = 29.3 pg 26.1-32.7 785-6) MCHC (test code = 33.0 g/dL 31.2-35.0 786-4) RDW-SD (test code 46.9 fL 38.5-51.6 = 84929-4) RDW-CV (test code 14.6 % 12.1-15.4 = 788-0) PLT (test code = 203 See_Comment [Automated message] 847-3) The system [employer] generated this result transmitted ref erence range: 150 - 32 8 10*3/?L. The re ference range was not u sed to interpret this result as normal/abnor mal. MPV (test code = 10.0 fL 9.8-13.0 56924-0) NRBC/100 WBC (test 0.0 See_Comment [Automat ed message] code = 6151388497) The [employer] which generated this result transmitted ref erence range: 0.0 - 10 .0 /100 WBCs. The refer ence range was not u sed to interpret this result as normal/abnor mal. NRBC x10^3 (test See_Comment [Automated message] code = 0621919926) The syste m which generated this result transmitted ref erence range: 10*3/?L. The reference range was not used to interpr et this result as normal/abnormal . GRAN MAT (NEUT) % 70.9 % (test code = 770-8) IMM GRAN % (test 0.60 % code = 0499693745) LYMPH % (test code 14.9 % = 736-9) MONO % (test code 10.2 % = 5905-5) EOS % (test code = 2.8 % 713-8) BASO % (test code 0.6 % = 706-2) GRAN MAT 6.92 10*3/uL 1.99-6.95 x10^3(ANC) (test code = 8506127650) IMM GRAN x10^3 0.06 10*3/uL 0.00-0.06 (test code = 9929326839) LYMPH x10^3 (test 1.45 10*3/uL 1.09-3.23 code = 731-0) MONO x10^3 (test 0.99 10*3/uL 0.36-1.02 code = 742-7) EOS x10^3 (test 0.27 10*3/uL 0.06-0.53 code = 711-2) BASO x10^3 (test 0.06 10*3/uL 0.01-0.09 code = 704-7) [facility] CenterType and Screen - ONCE [id number] 02:40:00 Test Item Value Reference Range Interpretation Comments ABO & RH (test code = 20) A Negative IAT (test code = 1185) Negative [facility]
[2022-09-22 10:58] LABS: Hematocrit 39.1 % (39.6-49.0); Lymphocytes % 18.5 % (15.3-44.8); MCV 88.7 fL (80-100); MPV 8.7 fL (7.6-11.3); RBC Red Blood Cell Count 4.41 M/uL (4.33-5.43)
--- NOTE | 2022-09-22 11:01 | RAD REPORT ---
EXAM DESCRIPTION: CT - Ct Stroke Brain Wo Cont - 09/22/2022 10:55 am CLINICAL HISTORY: Unresponsive COMPARISON: 2017 TECHNIQUE: Computed axial tomography of the head was obtained. All CT scans are performed using dose optimization technique as appropriate and may include automated exposure control or mA/KV adjustment according to patient size. FINDINGS: An intracranial bleed is not seen . The ventricles are normal in caliber. No extra-axial fluid collection is noted. No significant hypodensity within the brain noted Fluid within the sinuses/ mastoids is not seen. IMPRESSION: No acute intracranial abnormality is seen. If patient's symptoms persist MRI of the bra in would be recommended Norma of the emergency room was notified at 10:57 a.m. September 22, 2022
[2022-09-22 11:03] LABS: Protime INR 1.02
[2022-09-22 11:16] LABS: Albumin 2.8 g/dL (3.4-5.0); Bilirubin Direct 0.1 mg/dL (0-0.2); Bilirubin Indirect, Calculated 0.2 mg/dL (0.2-0.8); Bilirubin Total 0.3 mg/dL (0.2-1.0); Potassium 4.5 mEq/L (3.5-5.1); Protein, Total 6.9 g/dL (6.4-8.2); Troponin High Sensitivity 9.5 pg/mL (<58.9)
[2022-09-22 11:40] LABS: Specific Gravity 1.009 (1.005-1.030); Urine Bacteria None Seen /HPF (<20); Urine Bilirubin NEGATIVE (Negative); Urine Blood Trace (Negative); Urine Clarity Clear (Clear); Urine Color Light-Yellow (Yellow); Urine Glucose NEGATIVE (Negative); Urine Mucus Slight /HPF (None Seen); Urine Protein NEGATIVE (Negative); Urine RBC <5 /HPF (None Seen); Urine Urobilinogen Normal (Normal); Urine pH 5.5 (5.0-7.0)
[2022-09-22 11:46] LABS: Barbiturates NEGATIVE (NEGATIVE); Benzodiazepines NEGATIVE (NEGATIVE); Cocaine NEGATIVE (NEGATIVE); METHAMPHETAM NEGATIVE (NEGATIVE); Methadone NEGATIVE (NEGATIVE); Opiates NEGATIVE (NEGATIVE); Phencyclidine NEGATIVE (NEGATIVE); THC Cannibis NEGATIVE (NEGATIVE)
--- NOTE | 2022-09-22 12:17 | RAD REPORT ---
EXAM DESCRIPTION: Alida Single View09/22/2022 11:54 am CLINICAL HISTORY: Confusion COMPARISON: September 04, 2022 FINDINGS: The lungs appear clear of acute infiltrate. The heart is borderline enlarged IMPRESSION: No acute abnormalities displayed
--- NOTE | 2022-09-22 12:28 | ER ---
Nurse's Notes [facility] Name: Erika Sharif Age: 82 yrs Sex: Male : 1940 Arrival Date: 09/22/2022 Time: 10:33 Bed 19 Private MD: Diagnosis: Muscle weakness (generalized);Weakness Presentation: 09/22 10:33 Chief complaint: EMS states: toned out to [place] for slurred speech, AMS, generalized eh3 weakness, head and neck pain. Coronavirus screen: Vaccine status: Patient reports receiving the 2nd dose of the covid vaccine. Ebola Screen: No symptoms or risks identified at this time. Initial Sepsis Screen: Does the patient meet any 2 criteria? Altered Mental Status. No. Patient's initial sepsis screen is negative. Does the patient have a suspected source of infection? No. Patient's initial sepsis screen is negative. Risk Assessment: Do you want to hurt yourself or someone else? Patient reports no desire to harm self or others. Onset of symptoms was September 22, 2022. 10:33 Method Of Arrival: EMS: [facility] 3 10:33 Acuity: PEEWEE 3 eh3 Triage Assessment: 10:33 General: Appears in no apparent distress. uncomfortable, Behavior is calm, cooperative, eh3 appropriate for age. Pain: Complains of pain in head, neck, left hip and right hip. Neuro: Level of Consciousness is awake, obeys commands, lethargic, Oriented to person, place, time, situation, Speech is slurred, Facial symmetry appears normal, Pupils are PERRLA. Cardiovascular: Capillary refill < 3 seconds Patient's skin is warm and dry. Pulses are palpable in right radial artery, right dorsalis pedis artery, left radial artery and left dorsalis pedis artery Edema is 2+ to left midcalf, left ankle, left foot, right midcalf, right ankle and right foot. Respiratory: Airway is patent Respiratory effort is even, unlabored, Respiratory pattern is regular, symmetrical. GI: Abdomen is round. : Reports inability to void. Derm: Skin is fragile, Skin is red, on bilateral legs. Musculoskeletal: Circulation, motion, and sensation intact. Historical: - Allergies: 10:33 zolpidem; eh3 - PMHx: 10:33 CHF; COPD; Diabetes - IDDM; Gout; kidney failure; Myocardial infarction; neuropathy; eh3 pleural effusion; - PSHx: 10:33 arm; back; Cholecystectomy; eh3 - Immunization history:: Adult Immunizations up to date. - Social history:: Smoking status: unknown. Screenin:35 [facility] ED Fall Risk Assessment (Adult) Score/Fall Risk Level 0 - 2 = Low Risk. Abuse eh3 screen: Denies threats or abuse. Denies injuries from another. Nutritional screening: No deficits noted. Tuberculosis screening: No symptoms or risk factors identified. Assessment: 10:35 Reassessment: No changes from previously documented assessment. See triage assessment. eh3 11:00 Reassessment: Patient appears in no apparent distress at this time. Patient and/or eh3 family updated on plan of care and expected duration. Pain level reassessed. Patient is alert, oriented x 3, equal unlabored respirations, skin warm/dry/pink. 12:00 Reassessment: Patient appears in no apparent distress at this time. Patient and/or eh3 family updated on plan of care and expected duration. Pain level reassessed. Patient is alert, oriented x 3, equal unlabored respirations, skin warm/dry/pink. 12:41 Reassessment: Nurse to nurse report received by Maisha ventura [place]. 3 Vital Signs: 10:33 BP 109 / 80; Pulse 57; Resp 18; Pulse Ox 98% on R/A; Weight 151.95 kg; eh3 11:00 BP 97 / 49; Pulse 57; Resp 20; Pulse Ox 97% on R/A; eh3 12:00 BP 110 / 61; Pulse 58; Resp 18; Pulse Ox 99% on R/A; eh3 12:54 BP 124 / 64; Pulse 59; Resp 16; Pulse Ox 97% on R/A; iw ED Course: 10:33 Arm band placed on. eh3 10:35 Patient has correct armband on for positive identification. Bed in low position. Call [facility] light in reach. Side rails up X2. Adult w/ patient. Client placed on continuous cardiac and pulse oximetry monitoring. NIBP monitoring applied. Door closed. Noise minimized. Warm blanket given. Pillow given. 10:35 Inserted saline lock: 20 gauge in right antecubital area, using aseptic technique. 3 Blood collected. 10:37 Patient arrived in ED. iw 10:40 Shaq Barrow MD is Attending Physician. jr11 10:46 Lisa Ba, RN is Primary Nurse. eh3 10:54 Triage completed. eh3 10:57 CT Stroke Brain w/o Contrast In Process Unspecified. EDMS 11:15 Straight cath inserted, using sterile technique, 16 Fr. Specimen obtained. Returned eh3 clear yellow urine. Patient tolerated well. 11:56 Stroke CXR 1 View In Process Unspecified. EDMS 12:54 No provider procedures requiring assistance completed. IV discontinued, intact, iw bleeding controlled, No redness/swelling at site. Pressure dressing applied. Administered Medications: No medications were administered Medication: 12:55 VIS not applicable for this client. iw Outcome: 12:27 Discharge ordered by . jrJaswinder 12:54 Discharged to senior living. Report called to by KAMI Arthur iw 12:54 Condition: good 12:54 Discharge instructions given to patient, family, Instructed on discharge instructions, follow up and referral plans. Demonstrated understanding of instructions, follow-up care. 12:55 Patient left the ED. iw Signatures: Dispatcher [employer] Pam Wynn, RN RN Shaq Barrow MD MD jr Lisa Ba, RN RN [facility]
--- NOTE | 2022-09-22 12:28 | EDPHYS ---
Physician Documentation [facility] Name: Erika Sharif Age: 82 yrs Sex: Male : 1940 Arrival Date: 09/22/2022 Time: 10:33 Bed 19 Private MD: ED Physician Shaq Barrow HPI: 09/22 10:49 Patient is an 82-year-old with history of urinary tract infections obesity dyslipidemia jr11 congestive heart failure on torsemide here with feeling generalized weakness fatigue and per the difficult to understand. Per the , additional information was gathered from, he has been doing fine at rehab however today he was more somnolent. Patient states he feels more tired fatigued, lightheaded dizzy. Denies exertional pain, no tearing pain, does not radiate to the back, does not cross the diaphragm. No diaphoresis, no vomiting. No syncope or near-syncope. . 10:49 Pt recently got DC from hospital earlier this month. jr11 Historical: - Allergies: 10:33 zolpidem; eh3 - PMHx: 10:33 CHF; COPD; Diabetes - IDDM; Gout; kidney failure; Myocardial infarction; neuropathy; eh3 pleural effusion; - PSHx: 10:33 arm; back; Cholecystectomy; eh3 - Immunization history:: Adult Immunizations up to date. - Social history:: Smoking status: unknown. ROS: 10:49 All other systems are negative. jr11 Exam: 10:49 Constitutional: appears chronically ill, somnolent, but can carry conversation jr11 Head/Face: Normocephalic, atraumatic. Eyes: Extra-ocular motions intact. Lids and lashes normal. Conjunctiva and sclera are non-icteric and not injected. Cornea within normal limits. Periorbital areas with no swelling, redness, or edema. ENT: Nares patent. No nasal discharge, no septal abnormalities noted. Oropharynx with no redness, swelling, or masses, exudates, or evidence of obstruction, uvula midline. Mucous membranes moist. Cardiovascular: Regular rate and rhythm with a normal S1 and S2. No gallops, murmurs, or rubs. Normal PMI, no JVD. No pulse deficits. Respiratory: diminished at the bases Abdomen/GI: Soft, non-tender, with normal bowel sounds. No distension or tympany. No guarding or rebound. No evidence of tenderness throughout. Back: No spinal tenderness. No costovertebral tenderness. Full range of motion. MS/ Extremity: 2+ to shins bilaterally Vital Signs: 10:33 BP 109 / 80; Pulse 57; Resp 18; Pulse Ox 98% on R/A; Weight 151.95 kg; eh3 11:00 BP 97 / 49; Pulse 57; Resp 20; Pulse Ox 97% on R/A; eh3 12:00 BP 110 / 61; Pulse 58; Resp 18; Pulse Ox 99% on R/A; eh3 12:54 BP 124 / 64; Pulse 59; Resp 16; Pulse Ox 97% on R/A; iw MDM: 10:40 Patient medically screened. kb 10:49 Differential Diagnosis: electrolyte abnormality, TIA, UTI, volume depletion. Data jr11 reviewed: vital signs, nurses notes. 10:51 ED course: NIHSS =0, not a thrombolytics candidate, onset >4hrs . jr11 11:16 ED course: EKG interpreted by me shows normal sinus rhythm, normal axis, normal jr11 intervals, T wave inversion in leads aVL. No significant ST elevation inferior leads.. ED course: bus driver/monitor interpreted by me shows sinus bradycardia at a rate of 56.. 12:26 ED course: Head CT image interpreted by me shows no bleed, chest x-ray shows no jr11 pneumonia to my interpretation. Patient with a relatively benign work-up, lactic acid less than 2, he does have some leuk esterase but no burning in urination and he is on Augmentin. Episode of generalized dizziness weakness could secondary be due to volume depletion since he is on torsemide, would encourage p.o. hydration. ER warnings given, all results explained.. 09/22 10:42 Order name: Basic Metabolic Panel; Complete Time: 09/22 10:42 Order name: CBC with Diff; Complete Time: 10:58 09/22 10:42 Order name: Hepatic Function; Complete Time: 09/22 10:42 Order name: High Sensitivity Troponin; Complete Time: 09/22 10:42 Order name: Protime (+inr); Complete Time: 09/22 10:42 Order name: Ptt, Activated; Complete Time: 09/22 10:42 Order name: UDS; Complete Time: 09/22 10:42 Order name: UAM; Complete Time: 09/22 10:43 Order name: Lactate w/ 2H reflex if indic.; Complete Time: 09/22 11:24 Order name: Glucose, Ancillary Testing; Complete Time: 11 [facility] 09/22 10:42 Order name: CT Stroke Brain w/o Contrast; Complete Time: 09/22 10:42 Order name: Stroke CXR 1 View; Complete Time: 12:18 09/22 10:42 Order name: EKG; Complete Time: :09/22 10:42 Order name: Accucheck; Complete Time: 09/22 10:42 Order name: Cardiac monitoring; Complete Time: 09/22 10:42 Order name: EKG - Nurse/Tech; Complete Time: 09/22 10:42 Order name: IV Saline Lock; Complete Time: 09/22 10:42 Order name: Labs collected and sent; Complete Time: 09/22 10:42 Order name: NPO; Complete Time: 09/22 10:42 Order name: O2 Per Protocol; Complete Time: 09/22 10:42 Order name: O2 Sat Monitoring; Complete Time: :09/22 10:42 Order name: Stroke Swallow Screen; Complete Time: 12:35 09/22 10:45 Order name: Cath; Complete Time: Administered Medications: No medications were administered Disposition Summary: 09/22/22 12:27 Discharge Ordered Location: Home jr11 Condition: Fair jr11 Diagnosis - Muscle weakness (generalized) jr11 - Weakness jr11 Followup: jr11 - With: Private Physician - When: 2 - 3 days - Reason: Re-evaluation by your physician Discharge Instructions: - Discharge Summary Sheet jr11 - Dehydration, Adult jr11 - Weakness jr11 - Fatigue jr11 Forms: - Medication Reconciliation Form jr11 - Thank You Letter jr11 - Antibiotic Education jr11 - Prescription Opioid Use jr11 - Patient Portal Instructions jr11 Signatures: Dispatcher [employer] EDPA Matty Norma, PROFESSOR OF LANGUAGES-C PROFESSOR OF LANGUAGES-Ckb Shaq Barrow MD MD jr11 Lisa Ba RN RN eh3
[2022-09-22 13:26] VITALS: BP 124/64; O2SAT 97
--- NOTE | 2022-09-22 18:49 | EKG ---
Test Date: 2022-09-22 Test Time: 11:09:53 Hand Lacer: KIERA MEASUREMENT RESULTS: Intervals: Rate: 55 [place]: 158 QRSD: 86 QT: 420 QTc: 401 [place]: P: 58 [place]: 158 QRS: 35 T: 83 INTERPRETIVE STATEMENTS: Sinus bradycardia Otherwise normal ECG Compared to ECG 09/02/2022 22:44:18 Sinus rhythm no longer present Electronically Signed On 09-22-22 18:47:45 CDT by Zurdo Garcia
== END 2022-09-22 12:55 | disposition home or self-care (01) ==
LOC: ER 10:33
DX: M62.81 Muscle weakness (generalized) (principal); I50.9 Heart failure, unspecified; J44.9 Chronic obstructive pulmonary disease, unspecified; E11.9 Type 2 diabetes mellitus without complications; Z88.8 Allergy status to other drugs, medicaments and biological substances
CPT/HCPCS: 36415; 51702; 70450; 71045; 80048; 80076; 80307; 81001; 82947; 83605; 84484; 85025; 85610; 85730; 93005; 99284

== ENCOUNTER 2022-09-28 11:20 | Inpatient (IN) | payer OTHER ==
--- OUTSIDE RECORDS SUMMARY | 2022-09-28 11:32 | XMS REPORT | Continuity of Care Document ---
:1940 Author Organization [facility] t Address [address] [facility] [address] [place] [address] Care Team Providers Name Role Phone Esperanza Mustafa MD Primary Care Physician [phone] ESPERANZA MUSTAFA Attending Clinician Unavailable Esperanza Mustafa MD Attending Clinician [phone] KEVIN DE LA CRUZ Attending Clinician Unavailable Kevin De La Cruz MD Attending Clinician Tash Rodríguez RN Attending Clinician Unavailable DELROY LEDESMA Attending Clinician Unavailable Pooja Lord PA-C Attending Clinician Gilmar Mccauley MD Attending Clinician Doctor Unassigned, [place] Attending Clinician Unavailable NIA BROWN Attending Clinician Unavailable Kym Knapp RN Attending Clinician Unavailable Olean Hector MD Attending Clinician WILDER ISLAS Attending Clinician Unavailable KYLEIGH GILLILAND Attending Clinician Unavailable DOUGLAS VASQUES Attending Clinician Unavailable Aquiles Sliva MD Attending Clinician AQUILES SILVA Attending Clinician [...] Expiration Date S antonio MEDICARE PART A [id number] 1987 \\T\\ B 00:00:00 Problems Condition Condition Condition Status Onset Resolution Last Treating Co mments Source Name Details Category Date Date Treatment Clinician Date Coronary Coronary Disease Active 2019-0 Unive rs artery artery 4-04 ity of disease disease 00:00: [place] involving involving 00 Medi [place] Branch coronary coronary artery of artery of [place] heart heart without without angina angina pectoris pectoris Troponin I Troponin I Disease Active 0 U nivers above above 4-04 [place] COPD COPD Disease Active 2019-0 Univers exacerbati exacerbati 4-04 it y of on on 00:00: [place] [facility] Coronary Coronary Disease Active 2019-0 Unive rs artery artery 4-04 ity of disease disease 00:00: [place] involving involving 00 Medi [place] Branch coronary coronary artery of artery of [place] heart heart without without angina angina pectoris pectoris 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 Chronic Chronic Disease Active Univers kidney kidney 06-21 ity of disease, disease, 00:00: [place] stage II stage II 00 Medica l (mild) (mild) Branch Coronary Coronary Disease Active Unive rs atheroscle atheroscle 06-21 it y of rosis of rosis of 00:00: [place] 00 Medical coronary coronary Branch artery artery Spinal Spinal Disease Active [facility] stenosis stenosis 29 ity of of lumbar of lumbar 00:00[place] 00 Medical without without Branch neurogenic neurogenic claudicati claudicati on on Skin Skin Disease Active [facility] cancer cancer ity of [facility] 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 [facility] Allergies, Adverse Reactions, Alerts Allergy Allergy Status Severity Reaction(s) Onset Inactive Treating Comm ents Source Name Type Date Date Clinician Zolpidem Propensi Active Nausea Only U nivers ty to 08 ity of adverse 00:00: [place] reaction 00 Medical s to Branch drug ZOLPIDEM DRUG Active NAUSEA ONLY Uni vers INGREDI 408 ity of 00:00: [place] 00 [facility] Branch Social History Social Habit Start Date Stop Date Quantity Comments Source History of tobacco Cigarette Smoker University of use [facility] Gender identity Universit y of [facility] Sexual orientation Univer sity of [facility] Exposure to 2021-10-29 2021-11-08 Not sure University SARS-CoV-2 (event) 00:00:00 14:33:00 [facility] Alcohol intake 2021-11-08 2021-11-08 Current University of 00:00:00 00:00:00 non-drinker of [facility] alcohol Branch (finding) Tobacco Comment 2021-11-08 2021-11-08 quit 50 years Univer sity of 00:00:00 00:00:00 ago [facility] Cigarettes smoked 2021-11-08 2021-11-08 Univers ity of current (pack per 00:00:00 00:00:00 [facility] ) - Reported Branch Cigarette 2021-11-08 2021-11-08 University of pack-years 00:00:00 00:00:00 [facility] Tobacco use and 2021-11-08 2021-11-08 Smokeless Universit y of exposure 00:00:00 00:00:00 tobacco non-user [facility] dical [place] History of Social 2021-07-17 2021-07-17 Univers ity of function 00:00:00 00:00:00 [facility] Sex Ass[birth year] At [birth year] Universit y of 00:00:00 00:00:00 [facility] Smoking Status Start Date Stop Date Source Ex-smoker 2021-11-08 00:00:00 2021-11-08 00:00:00 Universi ty of [facility] Medications Ordered Filled Start Stop Current Ordering Indication Dosage Frequency Signature Comments Components Source Medication Medication Date Date Medication? Clinician (SIG) Name Name DIRK Yes [id number] USE Un jb ALCOHOL 09-08 DIRECTED ity of PREP PADS 00:00: [place] [address] ondansetron 2022- No 4mg 4 mg, Slow [...] Branch at 2230, [place] cephALEXin 2022- Yes [id number] 500mg Take 1 Univers 500 mg 08-27-16 capsule by ity of capsule 00:00: 04:59 mouth in [place] 00 :00 the [facility] Branch and 1 capsule at noon and 1 capsule in the evening. Do all this for 10 days. MONTELUKAST 2022-0 Yes [id number] TAKE 1 Univers 10 mg 6-26 TABLET ity of tablet 00:00: EVERY DAY [address] Branch ALLOPURINOL 2022-0 Yes [id number] TAKE 1 Univers 100 mg 6-26 TABLET ity of tablet 00:00: EVERY DAY [place] [address] Medical Branch TAMSULOSIN 2022-0 Yes [id number] TAKE 1 Univers 0.4 mg 24 6-26 9102 CAPSULE ity of hr capsule 00:00: EVERY DAY [facility] Branch FINASTERIDE 2022-0 Yes [id number] TAKE 1 Univers 5 mg tablet 6-26 9102 TABLET ity of 00:00: EVERY DAY [place] [address] Medical Branch MONTELUKAST 2022-0 Yes [id number] TAKE 1 Univers 10 mg 6-26 TABLET ity of tablet 00:00: EVERY DAY [address] Branch ALLOPURINOL 2022-0 Yes [id number] TAKE 1 Univers 100 mg 6-26 TABLET ity of tablet 00:00: EVERY DAY [address] Branch TAMSULOSIN 2022-0 Yes [id number] TAKE 1 Univers 0.4 mg 24 6-26 9102 CAPSULE ity of hr capsule 00:00: EVERY DAY [address] Branch FINASTERIDE 2022-0 Yes [id number] TAKE 1 Univers 5 mg tablet 6-26 9102 TABLET ity of 00:00: EVERY DAY [address] Branch MONTELUKAST 2022-0 Yes [id number] TAKE 1 Univers 10 mg 6-26 TABLET ity of tablet 00:00: EVERY DAY [address] Branch ALLOPURINOL 3-0 Yes [id number] TAKE 1 Univers 100 mg 6-26 TABLET ity of tablet 00:00: EVERY DAY [address] Branch TAMSULOSIN 2022-0 Yes [id number] TAKE 1 Univers 0.4 mg 24 6-26 9102 CAPSULE ity of hr capsule 00:00: EVERY DAY [address] Branch FINASTERIDE 2022-0 Yes [id number] TAKE 1 Univers 5 mg tablet 6-26 9102 TABLET ity of 00:00: EVERY DAY [place] [address] Medical Branch MONTELUKAST 3-0 Yes [id number] TAKE 1 Univers 10 mg 6-26 TABLET ity of tablet 00:00: EVERY DAY [place] [address] Medical Branch ALLOPURINOL 3-0 Yes [id number] TAKE 1 Univers 100 mg 6-26 TABLET ity of tablet 00:00: EVERY DAY [place] [address] Medical [place] TAMSULOSIN 3-0 Yes [id number] TAKE 1 Univers 0.4 mg 24 6-26 9102 CAPSULE ity of hr capsule 00:00: [place] FINASTERIDE 3-0 Yes [id number] TAKE 1 Univers 5 mg tablet 6-26 9102 TABLET ity of 00:00: EVERY DAY [address] pregabalin 2022-0 Yes [id number] 75mg Take 1 Univers 75 mg 2-23 capsule by ity of capsule 00:00: mouth in [address] and 1 capsule at noon and 1 capsule in the evening. pregabalin 2022-0 Yes [id number] 75mg Take 1 Univers 75 mg 2-23 capsule by ity of capsule 00:00: mouth in [address] and 1 capsule at noon and 1 capsule in the evening. pregabalin 2022-0 Yes [id number] 75mg Take 1 Univers 75 mg 2-23 capsule by ity of capsule 00:00: mouth in [address] and 1 capsule at noon and 1 capsule in the evening. pregabalin 2022-0 Yes [id number] 75mg Take 1 Univers 75 mg 2-23 capsule by ity of capsule 00:00: mouth in [address] and 1 capsule at noon and 1 capsule in the evening. pregabalin 2022-0 Yes [id number] 75mg Take 1 Univers 75 mg 2-23 capsule by ity of capsule 00:00: mouth in [address] and 1 capsule at noon and 1 capsule in the evening. ENALAPRIL 2022-0 Yes [id number] TAKE 1 Uni vers 20 mg 2-21 TABLET ity of tablet 00:00: EVERY [address] DROPSAFE 2022-0 Yes [id number] USE Un jb ALCOHOL 2-21 DIRECTED ity of PREP PADS 00:00: [place] [address] Medical Branch ENALAPRIL 2022-0 Yes [id number] TAKE 1 Uni vers 20 mg 2-21 TABLET ity of tablet 00:00: EVERY [place] 00 MORNING Medical Branch DROPSAFE 2022-0 Yes [id number] USE Un jb ALCOHOL 2-21 DIRECTED ity of PREP PADS 00:00: [facility] Medical Branch ENALAPRIL 2022-0 Yes [id number] TAKE 1 Uni vers 20 mg 2-21 TABLET ity of tablet 00:00: EVERY [place] 00 MORNING Medical Branch DROPSAFE 2022-0 Yes [id number] USE Un jb ALCOHOL 2-21 DIRECTED ity of PREP PADS 00:00: [facility] Medical Branch ENALAPRIL 2022-0 Yes [id number] TAKE 1 Uni vers 20 mg 2-21 TABLET ity of tablet 00:00: EVERY [place] 00 MORNING Medical Branch DROPSAFE 2022-0 Yes [id number] USE Un jb ALCOHOL 2-21 DIRECTED ity of PREP PADS 00:00: [facility] Medical Branch ENALAPRIL 2022-0 Yes [id number] TAKE 1 Uni vers 20 mg 2-21 TABLET ity of tablet 00:00: EVERY [place] [address] MORNING Medical Branch DROPSAFE 2022-0 Yes [id number] USE Un jb ALCOHOL 2-21 DIRECTED ity of PREP PADS 00:00: [facility] Medical Branch ENALAPRIL 2022-0 Yes [id number] TAKE 1 Uni vers 20 mg 2-21 TABLET ity of tablet 00:00: EVERY [place] [address] MORNING Medical Branch DROPSAFE 2022-0 3- No [id number] USE U nivers ALCOHOL 2-21 07-17 DIRECTED ity of PREP PADS 00:00: 00:00 [facility] 00 :00 Medical Branch NOVOLOG 2022-0 Yes [id number] INJECT 40 Univers FLEXPEN 2-14 UNITS ity of U-100 00:00: UNDER THE [place] INSULIN 100 00 SKIN THREE Me dical unit/mL (3 TIMES Branch mL) DAILY injection BEFORE MEALS (MORNING, NOON, EVENING) NOVOLOG 2022-0 Yes [id number] INJECT 40 Univers FLEXPEN 2-14 UNITS ity of U-100 00:00: UNDER THE [place] INSULIN 100 00 SKIN THREE Me dical unit/mL (3 TIMES Branch mL) DAILY injection BEFORE MEALS (MORNING, NOON, EVENING) NOVOLOG 2022-0 Yes [id number] INJECT 40 Univers FLEXPEN 2-14 UNITS ity of U-100 00:00: UNDER THE [place] INSULIN 100 00 SKIN THREE Me dical unit/mL (3 TIMES Branch mL) DAILY injection BEFORE MEALS (MORNING, NOON, EVENING) NOVOLOG Yes [id number] INJECT 40 Univers FLEXPEN 2-14 UNITS ity of U-100 00:00: UNDER THE [place] INSULIN 100 00 SKIN THREE Me dical unit/mL (3 TIMES Branch mL) DAILY injection BEFORE MEALS (MORNING, NOON, EVENING) NOVOLOG Yes [id number] INJECT 40 Univers FLEXPEN 2-14 UNITS ity of U-100 00:00: UNDER THE [place] INSULIN 100 00 SKIN THREE Me dical unit/mL (3 TIMES Branch mL) DAILY injection BEFORE MEALS (MORNING, NOON, EVENING) NOVOLOG Yes [id number] INJECT 40 Univers FLEXPEN 2-14 UNITS ity of U-100 00:00: UNDER THE [place] INSULIN 100 00 SKIN THREE Me dical unit/mL (3 TIMES Branch mL) DAILY injection BEFORE MEALS (MORNING, NOON, EVENING) NOVOLOG Yes [id number] INJECT 40 Univers FLEXPEN 2-14 UNITS ity of U-100 00:00: UNDER THE [place] INSULIN 100 00 SKIN THREE Me dical unit/mL (3 TIMES Branch mL) DAILY injection BEFORE MEALS (MORNING, NOON, EVENING) ESOMEPRAZOL Yes [id number] TAKE 1 Univers E 20 mg 1-03 CAPSULE BY ity of capsule 00:00: MOUTH [place] 00 EVERY DAY Medical Branch ESOMEPRAZOL 0 Yes [id number] TAKE 1 Univers E 20 mg 1-03 CAPSULE BY ity of capsule 00:00: MOUTH [place] 00 EVERY DAY Medical Branch ESOMEPRAZOL Yes [id number] TAKE 1 Univers E 20 mg 1-03 CAPSULE BY ity of capsule 00:00: MOUTH [place] 00 EVERY DAY Medical Branch ESOMEPRAZOL Yes [id number] TAKE 1 Univers E 20 mg 1-03 CAPSULE BY ity of capsule 00:00: MOUTH [place] 00 EVERY DAY Medical Branch ESOMEPRAZOL Yes [id number] TAKE 1 Univers E 20 mg 1-03 CAPSULE BY ity of capsule 00:00: MOUTH [place] EVERY DAY Medical Branch ESOMEPRAZOL 2022-0 Yes [id number] TAKE 1 Univers E 20 mg 1-03 CAPSULE BY ity of capsule 00:00: MOUTH EVERY DAY Medical Branch ESOMEPRAZOL 2022-0 Yes [id number] TAKE 1 Univers E 20 mg 1-03 CAPSULE BY ity of capsule 00:00: MOUTH EVERY DAY Medical Branch ESOMEPRAZOL 0 Yes [id number] TAKE 1 Univers E 20 mg 1-03 CAPSULE BY ity of capsule 00:00: MOUTH EVERY DAY Medical Branch Insulin 2021-02 Yes [id number] Use as Univ ers [place], 2-15 directed ity of Disposable, 00:00: [place] (DROPLET 00 Medical PEN NEEDLE) Branch 31 gauge x 1/4" Ndle Insulin 2021-02 Yes [id number] Use as Univ ers [place], 2-15 directed ity of Disposable, 00:00: [place] (DROPLET 00 Medical PEN NEEDLE) Branch 31 gauge x 1/4" Ndle Insulin 2021-02 Yes [id number] Use as Univ ers [place], 2-15 directed ity of Disposable, 00:00: [place] (DROPLET 00 Medical PEN NEEDLE) Branch 31 gauge x 1/4" Ndle Insulin 2021-02 Yes [id number] Use as Univ ers [place], 2-15 directed ity of Disposable, 00:00: [place] (DROPLET 00 Medical PEN NEEDLE) Branch 31 gauge x 1/4" Ndle Insulin 2021-02 Yes [id number] Use as Univ ers [place], 2-15 directed ity of Disposable, 00:00: [place] (DROPLET 00 Medical PEN NEEDLE) Branch 31 gauge x 1/4" Ndle Insulin 2021-02 Yes [id number] Use as Univ ers [place], 2-15 directed ity of Disposable, 00:00: [place] (DROPLET 00 Medical PEN NEEDLE) Branch 31 gauge x 1/4" Ndle Insulin 2021-02 Yes [id number] Use as Univ ers [place], 2-15 directed ity of Disposable, 00:00: [place] (DROPLET 00 Medical PEN NEEDLE) Branch 31 gauge x 1/4" Ndle Insulin 2021-02 Yes [id number] Use as Univ ers [place], 2-15 directed ity of Disposable, 00:00: [place] (DROPLET 00 Medical PEN NEEDLE) Branch 31 gauge x 1/4" Ndle Insulin 2021-02 Yes [id number] Use as Univ ers [place], 2-15 directed ity of Disposable, 00:00: [place] (DROPLET 00 Medical PEN NEEDLE) Branch 31 gauge x 1/4" Ndle Lancets 2021-02 Yes [id number] Use as Uni vers (ACCU-CHEK 2-08 directed ity o f SOFTCLIX 00:00: [place] LANCETS) 00 [facility] Alcohol 2021-02 Yes [id number] Use as Uni vers Swabs (BD 2-08 directed ity of SINGLE USE 00:00: [place] SWABS 00 Medical REGULAR) Branch PadM Lancets 2021-02 Yes [id number] Use as Uni vers (ACCU-CHEK 2-08 directed ity o f SOFTCLIX 00:00: [place] LANCETS) 00 [facility] Alcohol 2021-02 Yes [id number] Use as Uni vers Swabs (BD 2-08 directed ity of SINGLE USE 00:00: [place] SWABS 00 Medical REGULAR) Branch PadM Lancets 2021-02 Yes [id number] Use as Uni vers (ACCU-CHEK 2-08 directed ity o f SOFTCLIX 00:00: [place] LANCETS) [facility] Branch Alcohol 2021-02 Yes [id number] Use as Uni vers Swabs (BD 2-08 directed ity of SINGLE USE 00:00: [place] SWABS 00 Medical REGULAR) Branch PadM Lancets 2021-02 Yes [id number] Use as Uni vers (ACCU-CHEK 2-08 directed ity o f SOFTCLIX 00:00: [place] LANCETS) 00 [facility] Branch Alcohol 2021-02 Yes [id number] Use as Uni vers Swabs (BD 2-08 directed ity of SINGLE USE 00:00: [place] SWABS 00 Medical REGULAR) Branch PadM Lancets 2021-02 Yes [id number] Use as Uni vers (ACCU-CHEK 2-08 directed ity o f SOFTCLIX 00:00: [place] LANCETS) 00 [facility] Branch Lancets 2021-02 Yes [id number] Use as Uni vers (ACCU-CHEK 2-08 directed ity o f SOFTCLIX 00:00: [place] LANCETS) 00 [facility] Branch Lancets 2021-02 Yes [id number] Use as Uni vers (ACCU-CHEK 2-08 directed ity o f SOFTCLIX 00:00: [place] LANCETS) 00 [facility] Branch Lancets 2021-02 Yes [id number] Use as Uni vers (ACCU-CHEK 2-08 directed ity o f SOFTCLIX 00:00: [place] LANCETS) 00 Medical [facility] Lancets 2021-02 Yes [id number] Use as Uni vers (ACCU-CHEK 2-08 directed ity o f SOFTCLIX 00:00: [place] LANCETS) 00 Medical [facility] Lancets 2021-02 Yes [id number] Use as Uni vers (ACCU-CHEK 2-08 directed ity o f SOFTCLIX 00:00: [place] LANCETS) 00 Medical [facility] Alcohol 2021-02- No [id number] Use as Un jb Swabs (BD 2-04-15 directed ity o f SINGLE USE 00:00: 00:00 [place] SWABS 00 :00 Medical REGULAR) Branch PadM pregabalin 2021-02 Yes [id number] 75mg Take 1 Univers 75 mg 2-07 capsule by ity of capsule 00:00: mouth in [place] the Medical morning Branch and 1 capsule at noon and 1 capsule in the evening. blood sugar 2021-02 Yes [id number] Test 4x Univers diagnostic 2-07 daily for ity of (ACCU-CHEK 00:00: diagnosis [place] code E11.9 Med ical TEST STRP) Branch strip pregabalin 2021-02 Yes [id number] 75mg Take 1 Univers 75 mg 2-07 capsule by ity of capsule 00:00: mouth in [place] the Medical morning Branch and 1 capsule at noon and 1 capsule in the evening. enalapril 2021-02 Yes [id number] 20mg Take 1 Uni vers 20 mg 2-07 tablet by ity of tablet 00:00: mouth in [place] the Medical morning. Branch pregabalin 2021-02 Yes [id number] 75mg Take 1 Univers 75 mg 2-07 capsule by ity of capsule 00:00: mouth in [place] the Medical morning Branch and 1 capsule at noon and 1 capsule in the evening. blood sugar 2021-02 Yes [id number] Test 4x Univers diagnostic 2-07 daily for ity of (ACCU-CHEK 00:00: [place] code E11.9 Med ical TEST STRP) Branch strip enalapril 2021-02 Yes [id number] 20mg Take 1 Uni vers 20 mg 2-07 tablet by ity of tablet 00:00: mouth in [place] the . Branch pregabalin 2021-02 Yes [id number] 75mg Take 1 Univers 75 mg 2-07 capsule by ity of capsule 00:00: mouth in [place] the Branch and 1 capsule at noon and 1 capsule in the evening. blood sugar 2021-02 Yes [id number] Test 4x Univers diagnostic 2-07 daily for ity of (ACCU-CHEK 00:00: diagnosis [place] 00 code E11.9 Med ical TEST STRP) Branch strip enalapril 2021-02 Yes [id number] 20mg Take 1 Uni vers 20 mg 2-07 tablet by ity of tablet 00:00: mouth in [place] the . Branch pregabalin 2021-02 Yes [id number] 75mg Take 1 Univers 75 mg 2-07 capsule by ity of capsule 00:00: mouth in [place] the Branch and 1 capsule at noon and 1 capsule in the evening. blood sugar 2021-02 Yes [id number] Test 4x Univers diagnostic 2-07 daily for ity of (ACCU-CHEK 00:00: [place] 00 code E11.9 Med ical TEST STRP) Branch strip enalapril 2021-02 Yes [id number] 20mg Take 1 Uni vers 20 mg 2-07 tablet by ity of tablet 00:00: mouth in [place] the . Branch pregabalin 2021-02 Yes [id number] 75mg Take 1 Univers 75 mg 2-07 capsule by ity of capsule 00:00: mouth in [place] the morning Branch and 1 capsule at noon and 1 capsule in the evening. blood sugar 2021-02 Yes [id number] Test 4x Univers diagnostic 2-07 daily for ity of (ACCU-CHEK 00:00: diagnosis [place] 00 code E11.9 Med ical TEST STRP) Branch strip blood sugar 2021-02 Yes [id number] Test 4x Univers diagnostic 2-07 daily for ity of (ACCU-CHEK 00:00: diagnosis [place] code E11.9 Med ical TEST STRP) Branch strip blood sugar 2021-02 Yes [id number] Test 4x Univers diagnostic 2-07 daily for ity of (ACCU-CHEK 00:00: diagnosis [place] code E11.9 Med ical TEST STRP) Branch strip blood sugar 2021-02 Yes [id number] Test 4x Univers diagnostic 2-07 daily for ity of (ACCU-CHEK 00:00: diagnosis [place] 00 code E11.9 Med ical TEST STRP) Branch strip blood sugar 2021-02 Yes [id number] Test 4x Univers diagnostic 2-07 daily for ity of (ACCU-CHEK 00:00: diagnosis [place] 00 code E11.9 Med ical TEST STRP) Branch strip blood sugar 2021-02 Yes [id number] Test 4x Univers diagnostic 2-07 daily for ity of (ACCU-CHEK 00:00: diagnosis [place] 00 code E11.9 Med ical TEST STRP) Branch strip pregabalin 2021-02- No [id number] 75mg Take 1 Univers 75 mg 204-17 capsule by ity of capsule 00:00: 00:00 mouth in [place] 00 :00 the Medical morning Branch and 1 capsule at noon and 1 capsule in the evening. enalapril 2021-02- No [id number] 20mg Take 1 Un jb 20 mg 04-01 tablet by ity of tablet 00:00: 00:00 mouth in [place] 00 :00 the Medical morning. Branch Blood 2021-02 Yes [id number] Use as Unive rs Glucose 2-06 needed per ity of Control 00:00: manufactur [place] High&Low 00 er's Medical (ACCU-CHEK recommenda [facility] FOREST tions CONTROL SOLN) Soln Insulin 2021-02 Yes [id number] 50U inject 50 Univers Glargine 2-06 Units ity of (LANTUS 00:00: under the [place] SOLOSTAR 00 skin at Medical U-100 bedtime. Branch INSULIN) 100 unit/mL (3 mL) injection Blood 2021-02 Yes [id number] Use as Unive rs Glucose 2-06 needed per ity of Control 00:00: manufactur [place] High&Low 00 er's Medical (ACCU-CHEK recommenda [facility] FOR[facility] CONTROL SOLN) Soln Insulin 2021-02 Yes [id number] 50U inject 50 Univers Glargine 2-06 Units ity of (LANTUS 00:00: under the [place] SOLOSTAR 00 skin at Medical U-100 bedtime. Branch INSULIN) 100 unit/mL (3 mL) injection insulin 2021-02 Yes [id number] 40U inject 40 Univers aspart 2-06 Units ity of U-100 00:00: under the [place] (NOVOLOG 00 skin in Medical FLEXPEN the Branch U-100 morning INSULIN) and 40 100 unit/mL Units at (3 mL) noon and injection 40 Units in the evening. inject before meals. Blood 2021-02 Yes [id number] Use as Unive rs Glucose 2-06 needed per ity of Control 00:00: [facility] er's Medical (ACCU-CHEK recommenda [facility] FOREST [facility] CONTROL SOLN) Soln Insulin 2021-02 Yes [id number] 50U inject 50 Univers Glargine 2-06 Units ity of (LANTUS 00:00: under the [place] SOLOSTAR 00 skin at Medical U-100 bedtime. Branch INSULIN) 100 unit/mL (3 mL) injection insulin 2021-02 Yes [id number] 40U inject 40 Univers aspart 2-06 Units ity of U-100 00:00: under the [place] (NOVOLOG 00 skin in Medical FLEXPEN the Branch U-100 morning INSULIN) and 40 100 unit/mL Units at (3 mL) noon and injection 40 Units in the evening. inject before meals. Blood 2021-02 Yes [id number] Use as Unive rs Glucose 2-06 needed per ity of Control 00:00: [facility]Low [facility] er's Medical (ACCU-CHEK recommenda [facility] FOR[facility] CONTROL SOLN) Soln Insulin 2021-02 Yes [id number] 50U inject 50 Univers Glargine 2-06 Units ity of (LANTUS 00:00: under the [place] SOLOSTAR 00 skin at Medical U-100 bedtime. Branch INSULIN) 100 unit/mL (3 mL) injection insulin 2021-02 Yes [id number] 40U inject 40 Univers aspart 2-06 Units ity of U-100 00:00: under the [place] (NOVOLOG 00 skin in Medical FLEXPEN the Branch U-100 morning INSULIN) and 40 100 unit/mL Units at (3 mL) noon and injection 40 Units in the evening. inject before meals. Blood 2021-02 Yes [id number] Use as Unive rs Glucose 2-06 needed per ity of Control 00:00: [facility] [place] High&Low 00 er's [facility] (ACCU-CHEK recommenda [facility] FOREST tions CONTROL SOLN) Soln Insulin 2021-02 Yes [id number] 50U inject 50 Univers Glargine 2-06 Units ity of (LANTUS 00:00: under the [place] SOLOSTAR 00 skin at [facility] U-100 bedtime. Branch INSULIN) 100 unit/mL (3 mL) injection insulin 2021-02 Yes [id number] 40U inject 40 Univers aspart 2-06 Units ity of U-100 00:00: under the [place] (NOVOLOG 00 skin in [facility] FLEXPEN the Branch U-100 morning INSULIN) and 40 100 unit/mL Units at (3 mL) noon and injection 40 Units in the evening. inject before meals. Blood 2021-02 Yes [id number] Use as Unive rs Glucose 2-06 needed per ity [facility] Control 00:[facility] (ACCU-CHEK recommenda [facility] FOREST tions CONTROL SOLN) Soln Insulin 2021-02 Yes [id number] 50U inject 50 Univers Glargine 2-06 Units ity of (LANTUS 00:00: under the [place] SOLOSTAR 00 skin at [facility] U-100 bedtime. Branch INSULIN) 100 unit/mL (3 mL) injection insulin 2021-02 Yes [id number] 40U inject 40 Univers aspart 2-06 Units ity of U-100 00:00: under the [place] (NOVOLOG 00 skin in Medical FLEXPEN the Branch U-100 morning INSULIN) and 40 100 unit/mL Units at (3 mL) noon and injection 40 Units in the evening. inject before meals. Blood 2021-02 Yes [id number] Use as Unive rs Glucose 2-06 needed per ity of Control 00:00: [place] High&Low 00 er's [facility] (ACCU-CHEK recommenda [facility] FOR[facility] [employer] [facility] CONTROL SOLN) Soln Insulin 2021-02 Yes [id number] 50U inject 50 Univers Glargine 2-06 Units ity of (LANTUS 00:00: under the [place] SOLOSTAR 00 skin at Medical U-100 bedtime. Branch INSULIN) 100 unit/mL (3 mL) injection insulin 2021-02 Yes [id number] 40U inject 40 Univers aspart 2-06 Units ity of U-100 00:00: under the [place] (NOVOLOG 00 skin in Medical FLEXPEN the Branch U-100 morning INSULIN) and 40 100 unit/mL Units at (3 mL) noon and injection 40 Units in the evening. inject before meals. Blood 2021-02 Yes [id number] Use as Unive rs Glucose 2-06 needed per ity of Control 00:00: [facility] Medical (ACCU-CHEK recommenda [facility] FOR[facility] health CONTROL SOLN) Soln Insulin 2021-02 Yes [id number] 50U inject 50 Univers Glargine 2-06 Units ity of (LANTUS 00:00: under the [place] SOLOSTAR 00 skin at Medical U-100 bedtime. Branch INSULIN) 100 unit/mL (3 mL) injection insulin 2021-02 Yes [id number] 40U inject 40 Univers aspart 2-06 Units ity of U-100 00:00: under the [place] (NOVOLOG 00 skin in Medical FLEXPEN the Branch U-100 morning INSULIN) and 40 100 unit/mL Units at (3 mL) noon and injection 40 Units in the evening. inject before meals. Blood 2021-02 Yes [id number] Use as Unive rs Glucose 2-06 needed per ity of Control 00:00: [facility] Medical (ACCU-CHEK recommenda [facility] CONTROL SOLN) Soln Insulin 2021-02 Yes [id number] 50U inject 50 Univers Glargine 2-06 Units ity of (LANTUS 00:00: under the [place] SOLOSTAR 00 skin at Medical U-100 bedtime. Branch INSULIN) 100 unit/mL (3 mL) injection insulin 2021-02 Yes [id number] 40U inject 40 Univers aspart 2-06 Units ity of U-100 00:00: under the [place] (NOVOLOG 00 skin in Medical FLEXPEN the Branch U-100 morning INSULIN) and 40 100 unit/mL Units at (3 mL) noon and injection 40 Units in the evening. inject before meals. Blood 2021-02 Yes [id number] Use as Unive rs Glucose 2-06 needed per ity of Control 00:00: [place]&Low 00 er's Medical (ACCU-CHEK recommenda [facility] FOREST tions CONTROL SOLN) Soln Insulin 2021-02 Yes [id number] 50U inject 50 Univers Glargine 2-06 Units ity of (LANTUS 00:00: under the [place] SOLOSTAR 00 skin at [facility] U-100 bedtime. Branch INSULIN) 100 unit/mL (3 mL) injection insulin 2021-02 Yes [id number] 40U inject 40 Univers aspart 2-06 Units ity of U-100 00:00: under the [place] (NOVOLOG 00 skin in Medical FLEXPEN the Branch U-100 morning INSULIN) and 40 100 unit/mL Units at (3 mL) noon and injection 40 Units in the evening. inject before meals. Blood 2021-02 Yes [id number] Use as Unive rs Glucose 2-06 needed per ity of Control 00:00: manufactur [place]&Low 00 er's Medical (ACCU-CHEK recommenda [facility] FOREST tions CONTROL SOLN) Soln Insulin 2021-02 Yes [id number] 50U inject 50 Univers Glargine 2-06 Units ity of (LANTUS 00:00: under the [place] SOLOSTAR 00 skin at Medical U-100 bedtime. Branch INSULIN) 100 unit/mL (3 mL) injection Blood 2021-02 Yes [id number] Use as Unive rs Glucose 2-06 needed per ity of Control 00:00: manufactur [place] High&Low 00 er's Medical (ACCU-CHEK recommenda [facility] FOREST tions CONTROL SOLN) Soln Insulin 2021-02 Yes [id number] 50U inject 50 Univers Glargine 2-06 Units ity of (LANTUS 00:00: under the [place] SOLOSTAR 00 skin at Medical U-100 bedtime. Branch INSULIN) 100 unit/mL (3 mL) injection Blood 2021-02 Yes [id number] Use as Unive rs Glucose 2-06 needed per ity of Control 00:00: manufactur [place] High&Low 00 er's Medical (ACCU-CHEK recommenda [facility] FOREST tions CONTROL SOLN) Soln Insulin 2021-02 Yes [id number] 50U inject 50 Univers Glargine 2-06 Units ity of (LANTUS 00:00: under the [place] SOLOSTAR 00 skin at Medical U-100 bedtime. Branch INSULIN) 100 unit/mL (3 mL) injection Blood 2021-02 Yes [id number] Use as Unive rs Glucose 2-06 needed per ity of Control 00:00: manufactur [place] High&Low 00 er's Medical (ACCU-CHEK recommenda [facility] FOREST tions CONTROL SOLN) Soln Insulin 2021-02 Yes [id number] 50U inject 50 Univers Glargine 2-06 Units ity of (LANTUS 00:00: under the [facility] 00 skin at Medical U-100 bedtime. Branch INSULIN) 100 unit/mL (3 mL) injection Blood 2021-02 Yes [id number] Use as Unive rs Glucose 2-06 needed per ity of Control 00:00: manufactur [place] High&Low 00 er's Medical (ACCU-CHEK recommenda [facility] FOREST tions CONTROL SOLN) Soln Insulin 2021-02 Yes [id number] 50U inject 50 Univers Glargine 2-06 Units ity of (LANTUS 00:00: under the [place] SOLOSTAR 00 skin at Medical U-100 bedtime. Branch INSULIN) 100 unit/mL (3 mL) injection Blood 2021-02 Yes [id number] Use as Unive rs Glucose 2-06 needed per ity of Control 00:00: manufactur [place] High&Low 00 er's Medical (ACCU-CHEK recommenda [facility] FOREST tions CONTROL SOLN) Soln Insulin 2021-02 Yes [id number] 50U inject 50 Univers Glargine 2-06 Units ity of (LANTUS 00:00: under the [place] SOLOSTAR 00 skin at Medical U-100 bedtime. Branch INSULIN) 100 unit/mL (3 mL) injection Blood 2021-02 Yes [id number] Use as Unive rs Glucose 2-06 needed per ity of Control 00:00: manufactur [place] High&Low 00 er's Medical (ACCU-CHEK recommenda [facility] FOREST tions CONTROL SOLN) Soln Insulin 2021-02 Yes [id number] 50U inject 50 Univers Glargine 2-06 Units ity of (LANTUS 00:00: under the [place] SOLOSTAR 00 skin at Medical U-100 bedtime. Branch INSULIN) 100 unit/mL (3 mL) injection insulin 2021-02- No [id number] 40U inject 40 Univers aspart 2-06 02-14 Units ity of U-100 00:00: 00:00 under the [place] (NOVOLOG 00 :00 skin in [facility] FLEXPEN the [place] U-100 morning INSULIN) and 40 100 unit/mL Units at (3 mL) noon and injection 40 Units in the evening. inject before meals. TAMSULOSIN 2021-02 Yes [id number] TAKE 1 Univers 0.4 mg 24 1-18 9102 CAPSULE ity of hr capsule 00:00: EVERY DAY [facility] FINASTERIDE 2021-02 Yes [id number] TAKE 1 Univers 5 mg tablet 1-18 9102 TABLET ity of 00:00: EVERY DAY [address] MONTELUKAST 2021-02 Yes [id number] TAKE 1 Univers 10 mg 1-18 TABLET ity of tablet 00:00: EVERY DAY [address] ALLOPURINOL 2021-02 Yes [id number] TAKE 1 Univers 100 mg 1-18 TABLET ity of tablet 00:00: EVERY DAY [place] [facility] TAMSULOSIN 2021-02 Yes [id number] TAKE 1 Univers 0.4 mg 24 1-18 9102 CAPSULE ity of hr capsule 00:00: EVERY DAY [facility] FINASTERIDE 2021-02 Yes [id number] TAKE 1 Univers 5 mg tablet 1-18 9102 TABLET ity of 00:00: EVERY DAY [address] MONTELUKAST 2021-02 Yes [id number] TAKE 1 Univers 10 mg 1-18 TABLET ity of tablet 00:00: EVERY DAY [address] ALLOPURINOL 2021-02 Yes [id number] TAKE 1 Univers 100 mg 1-18 TABLET ity of tablet 00:00: EVERY DAY [facility] ESCITALOPRA 2021-02 Yes [id number] 10mg TAKE 1 Univers M OXALATE 1-18 TABLET BY ity o f 10 mg 00:00: MOUTH [place] tablet DAILY Medical [place] TAMSULOSIN 2021-02 Yes [id number] TAKE 1 Univers 0.4 mg 24 1-18 9102 CAPSULE ity of hr capsule 00:00: EVERY DAY [facility] FINASTERIDE 2021-02 Yes [id number] TAKE 1 Univers 5 mg tablet 1-18 9102 TABLET ity of 00:00: EVERY DAY [place] [facility] MONTELUKAST 2021-02 Yes [id number] TAKE 1 Univers 10 mg 1-18 TABLET ity of tablet 00:00: EVERY DAY [place] [facility] ALLOPURINOL 2021-02 Yes [id number] TAKE 1 Univers 100 mg 1-18 TABLET ity of tablet 00:00: EVERY DAY [place] [facility] ESCITALOPRA 2021-02 Yes [id number] 10mg TAKE 1 Univers M OXALATE 1-18 TABLET BY ity o f 10 mg 00:00: MOUTH [place] tablet [facility] TAMSULOSIN 2021-02 Yes [id number] TAKE 1 Univers 0.4 mg 24 1-18 9102 CAPSULE ity of hr capsule 00:00: EVERY DAY [facility] FINASTERIDE 2021-02 Yes [id number] TAKE 1 Univers 5 mg tablet 1-18 9102 TABLET ity of 00:00: EVERY DAY [facility] MONTELUKAST 2021-02 Yes [id number] TAKE 1 Univers 10 mg 1-18 TABLET ity of tablet 00:00: EVERY DAY [place] [facility] ALLOPURINOL 2021-02 Yes [id number] TAKE 1 Univers 100 mg 1-18 TABLET ity of tablet 00:00: EVERY DAY [place] [facility] ESCITALOPRA 2021-02 Yes [id number] 10mg TAKE 1 Univers M OXALATE 1-18 TABLET BY ity o f 10 mg 00:00: MOUTH [place] tablet DAILY Medical Branch TAMSULOSIN 2021-02 Yes [id number] TAKE 1 Univers 0.4 mg 24 1-18 9102 CAPSULE ity of hr capsule 00:00: EVERY DAY [facility] FINASTERIDE 2021-02 Yes [id number] TAKE 1 Univers 5 mg tablet 1-18 9102 TABLET ity of 00:00: EVERY DAY [facility] MONTELUKAST 2021-02 Yes [id number] TAKE 1 Univers 10 mg 1-18 TABLET ity of tablet 00:00: EVERY DAY [facility] ALLOPURINOL 2021-02 Yes [id number] TAKE 1 Univers 100 mg 1-18 TABLET ity of tablet 00:00: EVERY DAY [facility] ESCITALOPRA 2021-02 Yes [id number] 10mg TAKE 1 Univers M OXALATE 1-18 TABLET BY ity o f 10 mg 00:00: MOUTH [place] tablet DAILY Medical [place] TAMSULOSIN 2021-02 Yes [id number] TAKE 1 Univers 0.4 mg 24 1-18 9102 CAPSULE ity of hr capsule 00:00: [place] [facility] FINASTERIDE 2021-02 Yes [id number] TAKE 1 Univers 5 mg tablet 1-18 9102 TABLET ity of 00:00: EVERY DAY [place] [facility] MONTELUKAST 2021-02 Yes [id number] TAKE 1 Univers 10 mg 1-18 TABLET ity of tablet 00:00: EVERY DAY [place] [facility] ALLOPURINOL 2021-02 Yes [id number] TAKE 1 Univers 100 mg 1-18 TABLET ity of tablet 00:00: EVERY DAY [place] [facility] ESCITALOPRA 2021-02 Yes [id number] 10mg TAKE 1 Univers M OXALATE 1-18 TABLET BY ity o f 10 mg 00:00: MOUTH [place] tablet 00 DAILY Medical Branch TAMSULOSIN 2021-02 Yes [id number] TAKE 1 Univers 0.4 mg 24 1-18 9102 CAPSULE ity of hr capsule 00:00: [place] DAY [place] [facility] FINASTERIDE 2021-02 Yes [id number] TAKE 1 Univers 5 mg tablet 1-18 9102 TABLET ity of 00:00: EVERY DAY [place] [facility] MONTELUKAST 2021-02 Yes [id number] TAKE 1 Univers 10 mg 1-18 TABLET ity of tablet 00:00: EVERY DAY [place] [facility] ALLOPURINOL 2021-02 Yes [id number] TAKE 1 Univers 100 mg 1-18 TABLET ity of tablet 00:00: EVERY DAY [place] [facility] ESCITALOPRA 2021-02 Yes [id number] 10mg TAKE 1 Univers M OXALATE 1-18 TABLET BY ity o f 10 mg 00:00: MOUTH [place] tablet 00 DAILY Medical Branch TAMSULOSIN 2021-02 Yes [id number] TAKE 1 Univers 0.4 mg 24 1-18 9102 CAPSULE ity of hr capsule 00:00: EVERY DAY [place] [facility] FINASTERIDE 2021-02 Yes [id number] TAKE 1 Univers 5 mg tablet 1-18 9102 TABLET ity of 00:00: EVERY DAY [facility] MONTELUKAST 2021-02 Yes [id number] TAKE 1 Univers 10 mg 1-18 TABLET ity of tablet 00:00: EVERY DAY [place] [facility] ALLOPURINOL 2021-02 Yes [id number] TAKE 1 Univers 100 mg 1-18 TABLET ity of tablet 00:00: EVERY DAY [place] [facility] ESCITALOPRA 2021-02 Yes [id number] 10mg TAKE 1 Univers M OXALATE 1-18 TABLET BY ity o f 10 mg 00:00: MOUTH [place] tablet DAILY Medical [place] TAMSULOSIN 2021-02 Yes [id number] TAKE 1 Univers 0.4 mg 24 1-18 9102 CAPSULE ity of hr capsule 00:00: EVERY DAY [place] [facility] FINASTERIDE 2021-02 Yes [id number] TAKE 1 Univers 5 mg tablet 1-18 9102 TABLET ity of 00:00: EVERY DAY [place] [facility] MONTELUKAST 2021-02 Yes [id number] TAKE 1 Univers 10 mg 1-18 TABLET ity of tablet 00:00: EVERY DAY [place] [facility] ALLOPURINOL 2021-02 Yes [id number] TAKE 1 Univers 100 mg 1-18 TABLET ity of tablet 00:00: EVERY DAY [place] [facility] ESCITALOPRA 2021-02 Yes [id number] 10mg TAKE 1 Univers M OXALATE 1-18 TABLET BY ity o f 10 mg 00:00: MOUTH [place] tablet 00 DAILY Medical Branch TAMSULOSIN 2021-02 Yes [id number] TAKE 1 Univers 0.4 mg 24 1-18 9102 CAPSULE ity of hr capsule 00:00: EVERY DAY [place] [facility] FINASTERIDE 2021-02 Yes [id number] TAKE 1 Univers 5 mg tablet 1-18 9102 TABLET ity of 00:00: EVERY DAY [place] [facility] MONTELUKAST 2021-02 Yes [id number] TAKE 1 Univers 10 mg 1-18 TABLET ity of tablet 00:00: EVERY DAY [place] [facility] ALLOPURINOL 2021-02 Yes [id number] TAKE 1 Univers 100 mg 1-18 TABLET ity of tablet 00:00: EVERY DAY [place] [facility] ESCITALOPRA 2021-02 Yes [id number] 10mg TAKE 1 Univers M OXALATE 1-18 TABLET BY ity o f 10 mg 00:00: MOUTH [place] tablet 00 DAILY Medical Branch TAMSULOSIN 2021-02 Yes [id number] TAKE 1 Univers 0.4 mg 24 1-18 9102 CAPSULE ity of hr capsule 00:00: EVERY DAY [place] [facility] FINASTERIDE 2021-02 Yes [id number] TAKE 1 Univers 5 mg tablet 1-18 9102 TABLET ity of 00:00: EVERY DAY [place] [facility] MONTELUKAST 2021-02 Yes [id number] TAKE 1 Univers 10 mg 1-18 TABLET ity of tablet 00:00: EVERY DAY [place] [facility] ALLOPURINOL 2021-02 Yes [id number] TAKE 1 Univers 100 mg 1-18 TABLET ity of tablet 00:00: EVERY DAY [place] [facility] ESCITALOPRA 2021-02 Yes [id number] 10mg TAKE 1 Univers M OXALATE 1-18 TABLET BY ity o f 10 mg 00:00: MOUTH [place] tablet DAILY Medical Branch TAMSULOSIN 2021-02 Yes [id number] TAKE 1 Univers 0.4 mg 24 1-18 9102 CAPSULE ity of hr capsule 00:00: EVERY DAY [place] [facility] FINASTERIDE 2021-02 Yes [id number] TAKE 1 Univers 5 mg tablet 1-18 9102 TABLET ity of 00:00: EVERY DAY [place] [facility] MONTELUKAST 2021-02 Yes [id number] TAKE 1 Univers 10 mg 1-18 TABLET ity of tablet 00:00: EVERY DAY [place] [facility] ALLOPURINOL 2021-02 Yes [id number] TAKE 1 Univers 100 mg 1-18 TABLET ity of tablet 00:00: EVERY DAY [place] [facility] ESCITALOPRA 2021-02 Yes [id number] 10mg TAKE 1 Univers M OXALATE 1-18 TABLET BY ity o f 10 mg 00:00: MOUTH [place] tablet 00 DAILY Medical Branch TAMSULOSIN 2021-02 Yes [id number] TAKE 1 Univers 0.4 mg 24 1-18 9102 CAPSULE ity of hr capsule 00:00: EVERY DAY [place] [facility] FINASTERIDE 2021-02 Yes [id number] TAKE 1 Univers 5 mg tablet 1-18 9102 TABLET ity of 00:00: EVERY DAY [place] [facility] MONTELUKAST 2021-02 Yes [id number] TAKE 1 Univers 10 mg 1-18 TABLET ity of tablet 00:00: EVERY DAY [place] [facility] ALLOPURINOL 2021-02 Yes [id number] TAKE 1 Univers 100 mg 1-18 TABLET ity of tablet 00:00: EVERY DAY [place] [facility] ESCITALOPRA 2021-02 Yes [id number] 10mg TAKE 1 Univers M OXALATE 1-18 TABLET BY ity o f 10 mg 00:00: MOUTH [place] tablet DAILY [facility] TAMSULOSIN 2021-02 Yes [id number] TAKE 1 Univers 0.4 mg 24 1-18 9102 CAPSULE ity of hr capsule 00:00: EVERY DAY [place] [facility] FINASTERIDE 2021-02 Yes [id number] TAKE 1 Univers 5 mg tablet 1-18 9102 TABLET ity of 00:00: EVERY DAY [place] [facility] MONTELUKAST 2021-02 Yes [id number] TAKE 1 Univers 10 mg 1-18 TABLET ity of tablet 00:00: EVERY DAY [place] [facility] ALLOPURINOL 2021-02 Yes [id number] TAKE 1 Univers 100 mg 1-18 TABLET ity of tablet 00:00: EVERY DAY [place] [facility] ESCITALOPRA 2021-02 Yes [id number] 10mg TAKE 1 Univers M OXALATE 1-18 TABLET BY ity o f 10 mg 00:00: MOUTH [place] tablet DAILY [facility] TAMSULOSIN 2021-02 Yes [id number] TAKE 1 Univers 0.4 mg 24 1-18 9102 CAPSULE ity of hr capsule 00:00: EVERY DAY [place] [facility] FINASTERIDE 2021-02 Yes [id number] TAKE 1 Univers 5 mg tablet 1-18 9102 TABLET ity of 00:00: EVERY DAY [place] [facility] MONTELUKAST 2021-02 Yes [id number] TAKE 1 Univers 10 mg 1-18 TABLET ity of tablet 00:00: EVERY DAY [place] [facility] ALLOPURINOL 2021-02 Yes [id number] TAKE 1 Univers 100 mg 1-18 TABLET ity of tablet 00:00: EVERY DAY [place] [address] Medical Branch ESCITALOPRA 2021-02 Yes [id number] 10mg TAKE 1 Univers M OXALATE 1-18 TABLET BY ity o f 10 mg 00:00: MOUTH [place] tablet DAILY Medical Branch TAMSULOSIN 2021-02 Yes [id number] TAKE 1 Univers 0.4 mg 24 1-18 9102 CAPSULE ity of hr capsule 00:00: EVERY DAY [place] [facility] FINASTERIDE 2021-02 Yes [id number] TAKE 1 Univers 5 mg tablet 1-18 9102 TABLET ity of 00:00: EVERY DAY Medical [place] MONTELUKAST 2021-02 Yes [id number] TAKE 1 Univers 10 mg 1-18 TABLET ity of tablet 00:00: EVERY DAY [place] [facility] [place] ALLOPURINOL 2021-02 Yes [id number] TAKE 1 Univers 100 mg 1-18 TABLET ity of tablet 00:00: EVERY DAY [place] [facility] [place] ESCITALOPRA 2021-02 Yes [id number] 10mg TAKE 1 Univers M OXALATE 1-18 TABLET BY ity o f 10 mg 00:00: MOUTH [place] tablet DAILY Medical Branch TAMSULOSIN 2021-02 Yes [id number] TAKE 1 Univers 0.4 mg 24 1-18 9102 CAPSULE ity of hr capsule 00:00: EVERY DAY [place] [facility] FINASTERIDE 2021-02 Yes [id number] TAKE 1 Univers 5 mg tablet 1-18 9102 TABLET ity of 00:00: EVERY DAY Medical [place] MONTELUKAST 2021-02 Yes [id number] TAKE 1 Univers 10 mg 1-18 TABLET ity of tablet 00:00: EVERY DAY Medical [place] ALLOPURINOL 2021-02 Yes [id number] TAKE 1 Univers 100 mg 1-18 TABLET ity of tablet 00:00: EVERY DAY [place] [facility] ESCITALOPRA 2021-02 Yes [id number] 10mg TAKE 1 Univers M OXALATE 1-18 TABLET BY ity o f 10 mg 00:00: MOUTH [place] tablet 00 DAILY Medical Branch ESCITALOPRA 2021-02 Yes [id number] 10mg TAKE 1 Univers M OXALATE 1-18 TABLET BY ity o f 10 mg 00:00: MOUTH [place] tablet DAILY Medical Branch ESCITALOPRA 2021-02 Yes [id number] 10mg TAKE 1 Univers M OXALATE 1-18 TABLET BY ity o f 10 mg 00:00: MOUTH [place] tablet 00 DAILY Medical Branch ESCITALOPRA 2021-02 Yes [id number] 10mg TAKE 1 Univers M OXALATE 1-18 TABLET BY ity o f 10 mg 00:00: MOUTH [place] tablet 00 DAILY Medical Branch ESCITALOPRA 2021-02 Yes [id number] 10mg TAKE 1 Univers M OXALATE 1-18 TABLET BY ity o f 10 mg 00:00: MOUTH [place] tablet 00 DAILY Medical Branch TAMSULOSIN 2021-02- No [id number] TAKE 1 Univers 0.4 mg 24 03-12 9102 CAPSULE ity of hr capsule 00:00: 00:00 EVERY DAY [place] 00 :00 [facility] Branch FINASTERIDE 2021-02- No [id number] TAKE 1 Univers 5 mg tablet 03-12 9102 TABLET ity o f 00:00: 00:00 EVERY DAY [place] 00 :00 [facility] Branch MONTELUKAST 2021-02- No [id number] TAKE 1 Univers 10 mg 03-12 TABLET ity of tablet 00:00: 00:00 EVERY DAY [place] 00 :00 [facility] Branch ALLOPURINOL 2021-02- No [id number] TAKE 1 Univers 100 mg 03-12 TABLET ity of tablet 00:00: 00:00 EVERY DAY [place] 00 :00 [facility] Insulin 2021-02 Yes [id number] ADMINISTER Univers Glargine 1-02 50 UNITS ity of (LANTUS 00:00: UNDER THE [place] SOLOSTAR 00 SKIN EVERY Medic al U-100 NIGHT AT Branch INSULIN) BEDTIME 100 unit/mL (3 mL) injection Insulin 2021-02 Yes [id number] ADMINISTER Univers Glargine 1-02 50 UNITS ity of (LANTUS 00:00: UNDER THE [place] SOLOSTAR 00 SKIN EVERY Medic al U-100 NIGHT AT Branch INSULIN) BEDTIME 100 unit/mL (3 mL) injection Insulin 2021-02 Yes [id number] ADMINISTER Univers Glargine 1-02 50 UNITS ity of (LANTUS 00:00: UNDER THE [place] SOLOSTAR 00 SKIN EVERY Medic al U-100 NIGHT AT Branch INSULIN) BEDTIME 100 unit/mL (3 mL) injection Insulin 2021-02 Yes [id number] ADMINISTER Univers Glargine 1-02 50 UNITS ity of (LANTUS 00:00: UNDER THE [place] SOLOSTAR 00 SKIN EVERY Medic al U-100 NIGHT AT Branch INSULIN) BEDTIME 100 unit/mL (3 mL) injection Insulin 2021-02 Yes [id number] ADMINISTER Univers Glargine 02-24 50 UNITS ity of (LANTUS 00:00: UNDER THE [place] SOLOSTAR 00 SKIN EVERY Medic al U-100 NIGHT AT Branch INSULIN) BEDTIME 100 unit/mL (3 mL) injection Insulin 2021-02- No [id number] ADMINISTER Univers Glargine 02-24 12 50 UNITS ity of (LANTUS 00:00: 00:00 UNDER THE [facility] SOLOSTAR 00 :00 SKIN EVERY Medic al U-100 NIGHT AT Branch INSULIN) BEDTIME 100 unit/mL (3 mL) injection METOPROLOL Yes [id number] TAKE 1 Un jb TARTRATE 50 9-23 TABLET BY ity of mg tablet 00:00: [facility] TWICE Medical DAILY Branch TAMSULOSIN Yes [id number] .4mg TAKE 1 Univers 0.4 mg 24 9- 9102 CAPSULE BY ity of hr capsule 00:00: [place] DAILY Medical Branch TAMSULOSIN Yes [id number] .4mg TAKE 1 Univers 0.4 mg 24 9- 9102 CAPSULE BY ity of hr capsule 00:00: [facility] DAILY Medical Branch METOPROLOL Yes [id number] TAKE 1 Un jb TARTRATE 50 9-23 TABLET BY ity of mg tablet 00:00: [facility] TWICE Medical DAILY Branch METOPROLOL 0 Yes [id number] TAKE 1 Un jb TARTRATE 50 9-23 TABLET BY ity of mg tablet 00:00: [facility] TWICE Medical DAILY Branch METOPROLOL 0 Yes [id number] TAKE 1 Un jb TARTRATE 50 9-23 TABLET BY ity of mg tablet 00:00: [facility] TWICE Medical DAILY Branch METOPROLOL 0 Yes [id number] TAKE 1 Un jb TARTRATE 50 9-23 TABLET BY ity of mg tablet 00:00: [facility] TWICE Medical DAILY Branch METOPROLOL 0 Yes [id number] TAKE 1 Un jb TARTRATE 50 9-23 TABLET BY ity of mg tablet 00:00: [facility] TWICE Medical DAILY Branch METOPROLOL 2021-0 Yes [id number] TAKE 1 Un jb TARTRATE 50 9-23 TABLET BY ity of mg tablet 00:00: [facility] TWICE Medical DAILY Branch METOPROLOL 2021-0 Yes [id number] TAKE 1 Un jb TARTRATE 50 9-23 TABLET BY ity of mg tablet 00:00: [facility] TWICE Medical DAILY Branch METOPROLOL 2021-0 Yes [id number] TAKE 1 Un jb TARTRATE 50 9-23 TABLET BY ity of mg tablet 00:00: [facility] TWICE Medical DAILY Branch METOPROLOL 2021-0 Yes [id number] TAKE 1 Un jb TARTRATE 50 9-23 TABLET BY ity of mg tablet 00:00: [facility] [facility] DAILY Branch METOPROLOL 2021-0 Yes [id number] TAKE 1 Un jb TARTRATE 50 9-23 TABLET BY ity of mg tablet 00:00: [facility] TWICE Medical DAILY Branch METOPROLOL 2021-0 Yes [id number] TAKE 1 Un jb TARTRATE 50 9-23 TABLET BY ity of mg tablet 00:00: [facility] TWICE Medical DAILY Branch METOPROLOL 2021-0 Yes [id number] TAKE 1 Un jb TARTRATE 50 9-23 TABLET BY ity of mg tablet 00:00: [facility] TWICE Medical DAILY Branch METOPROLOL 2021-0 Yes [id number] TAKE 1 Un jb TARTRATE 50 9-23 TABLET BY ity of mg tablet 00:00: [facility] TWICE Medical DAILY Branch METOPROLOL 2021-0 Yes [id number] TAKE 1 Un jb TARTRATE 50 9-23 TABLET BY ity of mg tablet 00:00: [facility] TWICE Medical DAILY Branch METOPROLOL 2021-0 Yes [id number] TAKE 1 Un jb TARTRATE 50 9-23 TABLET BY ity of mg tablet 00:00: [facility] TWICE Medical DAILY Branch METOPROLOL 2021-0 Yes [id number] TAKE 1 Un jb TARTRATE 50 9-23 TABLET BY ity of mg tablet 00:00: [facility] TWICE Medical DAILY Branch METOPROLOL 2021-0 Yes [id number] TAKE 1 Un jb TARTRATE 50 9-23 TABLET BY ity of mg tablet 00:00: [facility] TWICE Medical DAILY Branch METOPROLOL 2021-0 Yes [id number] TAKE 1 Un jb TARTRATE 50 9-23 TABLET BY ity of mg tablet 00:00: MOUTH [place] 00 TWICE Medical DAILY Branch METOPROLOL 2021-0 Yes [id number] TAKE 1 Un jb TARTRATE 50 9-23 TABLET BY ity of mg tablet 00:00: MOUTH [place] 00 TWICE Medical DAILY Branch METOPROLOL 2021-0 Yes [id number] TAKE 1 Un jb TARTRATE 50 9-23 TABLET BY ity of mg tablet 00:00: MOUTH [place] 00 TWICE Medical DAILY Branch METOPROLOL 2021-0 Yes [id number] TAKE 1 Un jb TARTRATE 50 9-23 TABLET BY ity of mg tablet 00:00: MOUTH [place] 00 TWICE Medical DAILY Branch METOPROLOL 0 Yes [id number] TAKE 1 Un jb TARTRATE 50 9-23 TABLET BY ity of mg tablet 00:00: MOUTH [place] 00 TWICE Medical DAILY Branch TAMSULOSIN 2021- No [id number] .4mg TAKE 1 [facility] 0.4 mg 24 11-15 CAPSULE BY ity of hr capsule 00:00: 00:00 MOUTH [place] 00 :00 DAILY Medical Branch nystatin 0 Yes [id number] Apply to U [employer] 100,000 9-16 area(s) 2 ity of unit/gram 00:00: (two) [place] powder 00 times Medical daily. Branch enalapril Yes [id number] 20mg Take 1 Uni vers 20 mg 9-16 tablet by ity of tablet 00:00: mouth in [place] 00 the Medical morning. Branch furosemide Yes [id number] 40mg Take 1 Univers (LASIX) 40 9-16 tablet by ity of mg tablet 00:00: mouth in [facility] s 00 the Medical morning. Branch nystatin 0 Yes [id number] Apply to U [employer] 100,000 9-16 area(s) 2 ity of unit/gram 00:00: (two) [place] powder 00 times Medical daily. Branch enalapril 0 Yes [id number] 20mg Take 1 Uni vers 20 mg 9-16 tablet by ity of tablet 00:00: mouth in [place] 00 the Medical morning. Branch furosemide Yes [id number] 40mg Take 1 Univers (LASIX) 40 9-16 tablet by ity of mg tablet 00:00: mouth in [facility] 00 the Medical morning. Branch nystatin 2021-0 Yes [id number] Apply to U [facility] 100,000 9-16 area(s) 2 ity of unit/gram 00:00: (two) [place] powder 00 times Medical daily. Branch enalapril 2021-0 Yes [id number] 20mg Take 1 Uni vers 20 mg 9-16 tablet by ity of tablet 00:00: mouth in [place] 00 the Medical morning. Branch furosemide 2021-0 Yes [id number] 40mg Take 1 [facility] (LASIX) 40 9-16 tablet by ity of mg tablet 00:00: mouth in [facility] the Medical morning. Branch nystatin 2021-0 Yes [id number] Apply to [facility] 100,000 9-16 area(s) 2 ity of unit/gram 00:00: (two) [place] powder 00 times Medical daily. Branch enalapril 2021-0 Yes [id number] 20mg Take 1 Uni vers 20 mg 9-16 tablet by ity of tablet 00:00: mouth in [place] the Medical morning. Branch furosemide 2021-0 Yes [id number] 40mg Take 1 Univers (LASIX) 40 9-16 tablet by ity of mg tablet 00:00: mouth in [facility] the Medical morning. Branch nystatin 2021-0 Yes [id number] Apply to [facility] 100,000 9-16 area(s) 2 ity of unit/gram 00:00: (two) [place] powder 00 times Medical daily. Branch enalapril 2021-0 Yes [id number] 20mg Take 1 Uni vers 20 mg 9-16 tablet by ity of tablet 00:00: mouth in [place] 00 the Medical morning. Branch furosemide 2021-0 Yes [id number] 40mg Take 1 Univers (LASIX) 40 9-16 tablet by ity of mg tablet 00:00: mouth in [facility] 00 the Medical morning. Branch nystatin 2021-0 Yes [id number] Apply to U [facility] 100,000 9-16 area(s) 2 ity of unit/gram 00:00: (two) [place] powder 00 times Medical daily. Branch enalapril 2-0 Yes [id number] 20mg Take 1 Uni vers 20 mg 9-16 tablet by ity of tablet 00:00: mouth in [place] 00 the Medical morning. Branch furosemide 2021-0 Yes [id number] 40mg Take 1 Univers (LASIX) 40 9-16 tablet by ity of mg tablet 00:00: mouth [place] the Medical morning. Branch nystatin 2021-0 Yes [id number] Apply to [facility] 100,000 916 area(s) 2 ity of unit/gram 00:00: (two) [place] powder 00 times Medical daily. Branch enalapril 2021-0 Yes [id number] 20mg Take 1 Uni vers 20 mg 9-16 tablet by ity of tablet 00:00: mouth in [place] 00 the Medical morning. Branch furosemide 2021-0 Yes [id number] 40mg Take 1 [facility] (LASIX) 40 9-16 tablet by ity of mg tablet 00:00: mouth [place] the Medical morning. Branch nystatin 2021-0 Yes [id number] Apply to [facility] 100,000 916 area(s) 2 ity of unit/gram 00:00: (two) [place] powder 00 times Medical daily. Branch enalapril 2021-0 Yes [id number] 20mg Take 1 Uni vers 20 mg 9-16 tablet by ity of tablet 00:00: mouth in [place] the Medical morning. Branch furosemide 2021-0 Yes [id number] 40mg Take 1 [facility] (LASIX) 40 9-16 tablet by ity of mg tablet 00:00: mouth [place] the Medical morning. Branch nystatin 2021-0 Yes [id number] Apply to [facility] 100,000 916 area(s) 2 ity of unit/gram 00:00: (two) [place] powder 00 times Medical daily. Branch enalapril 2021-0 Yes [id number] 20mg Take 1 Uni vers 20 mg 9-16 tablet by ity of tablet 00:00: mouth in [place] 00 the Medical morning. Branch furosemide 2021-0 Yes [id number] 40mg Take 1 [facility] (LASIX) 40 9-16 tablet by ity of mg tablet 00:00: mouth [place] 00 the Medical morning. Branch nystatin 2021-0 Yes [id number] Apply to [facility] 100,000 916 area(s) 2 ity of unit/gram 00:00: (two) [place] powder 00 times Medical daily. Branch enalapril 2021-0 Yes [id number] 20mg Take 1 Uni vers 20 mg 9-16 tablet by ity of tablet 00:00: mouth in [place] 00 the Medical morning. Branch furosemide 2021-0 Yes [id number] 40mg Take 1 [facility] (LASIX) 40 9-16 tablet by ity of mg tablet 00:00: mouth [place] 00 the Medical morning. Branch nystatin 2021-0 Yes [id number] Apply to [facility] 100,000 9-16 area(s) 2 ity of unit/gram 00:00: (two) [place] powder 00 times Medical daily. Branch enalapril 0 Yes [id number] 20mg Take 1 Uni vers 20 mg 9-16 tablet by ity of tablet 00:00: mouth in [place] 00 the Medical morning. Branch furosemide 2021-0 Yes [id number] 40mg Take 1 [facility] (LASIX) 40 9-16 tablet by ity of mg tablet 00:00: mouth [place] the Medical morning. Branch nystatin 2021-0 Yes [id number] Apply to [facility] 100,000 916 area(s) 2 ity of unit/gram 00:00: (two) [place] powder 00 times Medical daily. Branch enalapril 0 Yes [id number] 20mg Take 1 Uni vers 20 mg 9-16 tablet by ity of tablet 00:00: mouth in [place] 00 the Medical morning. Branch furosemide 2021-0 Yes [id number] 40mg Take 1 [facility] (LASIX) 40 9-16 tablet by ity of mg tablet 00:00: mouth [place] 00 the Medical morning. Branch nystatin 2021-0 Yes [id number] Apply to [facility] 100,000 9-16 area(s) 2 ity of unit/gram 00:00: (two) [place] powder 00 times Medical daily. Branch enalapril 2021-0 Yes [id number] 20mg Take 1 Uni vers 20 mg 9-16 tablet by ity of tablet 00:00: mouth in [place] 00 the Medical morning. Branch furosemide 2021-0 Yes [id number] 40mg Take 1 [facility] (LASIX) 40 9-16 tablet by ity of mg tablet 00:00: mouth [place] 00 the Medical morning. Branch nystatin 2021-0 Yes [id number] Apply to U [facility] 100,000 9-16 area(s) 2 ity of unit/gram 00:00: (two) [place] powder 00 times Medical daily. Branch enalapril 2021-0 Yes [id number] 20mg Take 1 Uni vers 20 mg 9-16 tablet by ity of tablet 00:00: mouth in [place] 00 the Medical morning. Branch furosemide 2021-0 Yes [id number] 40mg Take 1 [facility] (LASIX) 40 9-16 tablet by ity of mg tablet 00:00: mouth [place] 00 the Medical morning. Branch nystatin 2021-0 Yes [id number] Apply to U [employer] 100,000 9-16 area(s) 2 ity of unit/gram 00:00: (two) [place] powder 00 times Medical daily. Branch furosemide 2021-0 Yes [id number] 40mg Take 1 [facility] (LASIX) 40 9-16 tablet by ity of mg tablet 00:00: mouth [place] 00 the Medical morning. Branch nystatin 2021-0 Yes [id number] Apply to [facility] 100,000 9-16 area(s) 2 ity of unit/gram 00:00: (two) [place] powder 00 times Medical daily. Branch furosemide 2021-0 Yes [id number] 40mg Take 1 [facility] (LASIX) 40 9-16 tablet by ity of mg tablet 00:00: mouth [place] the Medical morning. Branch nystatin 2021-0 Yes [id number] Apply to [facility] 100,000 9-16 area(s) 2 ity of unit/gram 00:00: (two) [place] powder 00 times Medical daily. Branch furosemide 2021-0 Yes [id number] 40mg Take 1 [facility] (LASIX) 40 9-16 tablet by ity of mg tablet 00:00: mouth [place] 00 the Medical morning. Branch nystatin 2021-0 Yes [id number] Apply to U [facility] 100,000 9-16 area(s) 2 ity of unit/gram 00:00: (two) [place] powder 00 times Medical daily. Branch furosemide 2021-0 Yes [id number] 40mg Take 1 [facility] (LASIX) 40 9-16 tablet by ity of mg tablet 00:00: mouth [place] 00 the Medical morning. Branch nystatin 2021-0 Yes [id number] Apply to U [facility] 100,000 9-16 area(s) 2 ity of unit/gram 00:00: (two) [place] powder 00 times Medical daily. Branch furosemide 2022-0 Yes [id number] 40mg Take 1 [facility] (LASIX) 40 9-16 tablet by ity of mg tablet 00:00: mouth [place] 00 the Medical morning. Branch nystatin 2022-0 Yes [id number] Apply to U [facility] 100,000 9-16 area(s) 2 ity of unit/gram 00:00: (two) [place] powder 00 times Medical daily. Branch furosemide 2-0 Yes [id number] 40mg Take 1 [facility] (LASIX) 40 9-16 tablet by ity of mg tablet 00:00: mouth [place] 00 the Medical morning. Branch nystatin 2-0 Yes [id number] Apply to U [facility] 100,000 9-16 area(s) 2 ity of unit/gram 00:00: (two) [place] powder 00 times Medical daily. Branch furosemide 2-0 Yes [id number] 40mg Take 1 [facility] (LASIX) 40 9-16 tablet by ity of mg tablet 00:00: mouth [place] 00 the Medical morning. Branch nystatin 2-0 Yes [id number] Apply to U [facility] 100,000 9-16 area(s) 2 ity of unit/gram 00:00: (two) [place] powder 00 times Medical daily. Branch furosemide 2-0 Yes [id number] 40mg Take 1 [facility] (LASIX) 40 9-16 tablet by ity of mg tablet 00:00: mouth [place] 00 the Medical morning. Branch nystatin 2022-0 Yes [id number] Apply to U [facility] 100,000 9-16 area(s) 2 ity of unit/gram 00:00: (two) [place] powder 00 times Medical daily. Branch furosemide 2022-0 Yes [id number] 40mg Take 1 [facility] (LASIX) 40 9-16 tablet by ity of mg tablet 00:00: mouth [place] 00 the Medical morning. Branch nystatin 2022-0 Yes [id number] Apply to U [facility] 100,000 9-16 area(s) 2 ity of unit/gram 00:00: (two) [place] powder 00 times Medical daily. Branch furosemide 2022-0 Yes [id number] 40mg Take 1 [facility] (LASIX) 40 9-16 tablet by ity of mg tablet 00:00: mouth [place] 00 the Medical morning. Branch nystatin 2021-0 Yes [id number] Apply to U [facility] 100,000 9-16 area(s) 2 ity of unit/gram 00:00: (two) [place] powder 00 times Medical daily. Branch furosemide 0 Yes [id number] 40mg Take 1 [facility] (LASIX) 40 9-16 tablet by ity of mg tablet 00:00: mouth [place] 00 the Medical morning. Branch nystatin 0 Yes [id number] Apply to U [facility] 100,000 9-16 area(s) 2 ity of unit/gram 00:00: (two) [place] powder 00 times Medical daily. Branch furosemide Yes [id number] 40mg Take 1 [facility] (LASIX) 40 9-16 tablet by ity of mg tablet 00:00: mouth [place] 00 the Medical morning. Branch enalapril 2- No [id number] 20mg Take 1 Un jb 20 mg 9-16 12-07 tablet by ity of tablet 00:00: 00:00 mouth in [place] 00 :00 the Medical morning. Branch enalapril 2021-0 2022- No [id number] 20mg Take 1 Un jb 20 mg 9-16 12-07 tablet by ity of tablet 00:00: 00:00 mouth in [place] 00 :00 the Medical morning. Branch enalapril 0 2- No [id number] 20mg Take 1 Un jb 20 mg 9-16 12-07 tablet by ity of tablet 00:00: 00:00 mouth in [place] 00 :00 the Medical morning. Branch clotrimazol 0 2022- No [id number] Apply to [facility] e 1 % -16 - area(s) 2 ity of solution 00:00: 04:59 (two) [place] 00 :00 times Medical daily for Branch 14 days. clotrimazol 2021-2- No [id number] Apply to [facility] e 1 % 9-16 10- area(s) 2 ity of solution 00:00: 04:59 (two) [place] 00 :00 times Medical daily for Branch 14 days. clotrimazol 2021-0 2021- No [id number] Apply to [facility] e 1 % 11-08 area(s) 2 ity of solution 00:00: 04:59 (two) [place] 00 :00 times Medical daily for Branch 14 days. clotrimazol 2021-0 2021- No [id number] Apply to [facility] e 1 % 9-16 11-23 area(s) 2 ity of solution 00:00: 04:59 (two) [place] 00 :00 times Medical daily for Branch 14 days. PREGABALIN 2-0 Yes [id number] TAKE 1 Univers 75 mg 8-16 CAPSULE BY ity of capsule 00:00: MOUTH [place] THREE Medical TIMES Branch DAILY PREGABALIN 2-0 Yes [id number] TAKE 1 [facility] 75 mg 8-16 CAPSULE BY ity of capsule 00:00: [facility] THREE Medical TIMES Branch DAILY PREGABALIN 2-0 Yes [id number] TAKE 1 Univers 75 mg 8-16 CAPSULE BY ity of capsule 00:00: [facility] THREE Medical TIMES Branch DAILY PREGABALIN 2022-0 Yes [id number] TAKE 1 Univers 75 mg 8-16 CAPSULE BY ity of capsule 00:00: MOUTH [place] THREE Medical TIMES Branch DAILY PREGABALIN 2022-0 Yes [id number] TAKE 1 [facility] 75 mg 8-16 CAPSULE BY ity of capsule 00:00: [facility] THREE Medical TIMES Branch DAILY PREGABALIN 2022-0 Yes [id number] TAKE 1 [facility] 75 mg 8-16 CAPSULE BY ity of capsule 00:00: [facility] THREE Medical TIMES Branch DAILY PREGABALIN 2022-0 Yes [id number] TAKE 1 [facility] 75 mg 8-16 CAPSULE BY ity of capsule 00:00: MOUTH [place] THREE Medical TIMES Branch DAILY PREGABALIN 2022-0 Yes [id number] TAKE 1 [facility] 75 mg 8-16 CAPSULE BY ity of capsule 00:00: [facility] THREE Medical TIMES Branch DAILY PREGABALIN 2022-0 Yes [id number] TAKE 1 [facility] 75 mg 8-16 CAPSULE BY ity of capsule 00:00: [facility] THREE Medical TIMES Branch DAILY PREGABALIN 2022-0 Yes [id number] TAKE 1 [facility] 75 mg 8-16 CAPSULE BY ity of capsule 00:00: [facility] THREE Medical TIMES Branch DAILY PREGABALIN 2022-0 Yes [id number] TAKE 1 [facility] 75 mg 8-16 CAPSULE BY ity of capsule 00:00: MOUTH [place] 00 THREE Medical TIMES Branch DAILY PREGABALIN 2021-0 2021- No [id number] TAKE 1 [facility] 75 mg 8-16 12-07 CAPSULE BY ity of capsule 00:00: 00:00 MOUTH [place] 00 :00 THREE Medical TIMES Branch DAILY PREGABALIN 2021-0 2021- No [id number] TAKE 1 [facility] 75 mg 8-16 12-07 CAPSULE BY ity of capsule 00:00: 00:00 MOUTH [place] 00 :00 THREE Medical TIMES Branch DAILY PREGABALIN 2021-0 2021- No [id number] TAKE 1 [facility] 75 mg 8-16 12-07 CAPSULE BY ity of capsule 00:00: 00:00 MOUTH [place] 00 :00 THREE Medical TIMES Branch DAILY PREGABALIN 2021-0 2021- No [id number] TAKE 1 [facility] 75 mg 8-16 12-07 CAPSULE BY ity of capsule 00:00: 00:00 [facility] 00 :00 THREE Medical TIMES Branch DAILY PREGABALIN 2021-0 2021- No [id number] TAKE 1 [facility] 75 mg 8-16 12-07 CAPSULE BY ity of capsule 00:00: 00:00 MOUTH [place] 00 :00 THREE Medical TIMES Branch DAILY PREGABALIN 2021-0 2021- No [id number] TAKE 1 [facility] 75 mg 8-16 12-07 CAPSULE BY ity of capsule 00:00: 00:00 MOUTH [place] 00 :00 [facility] Medical TIMES Branch DAILY NOVOLOG 2021-0 Yes [id number] INJECT 40 Univers FLEXPEN 7-22 UNITS ity of U-100 00:00: UNDER THE [place] INSULIN 100 00 SKIN THREE Me dical unit/mL (3 TIMES Branch mL) DAILY. injection NOVOLOG 2021-0 Yes [id number] INJECT 40 Univers FLEXPEN 7-22 UNITS ity of U-100 00:00: UNDER THE [place] INSULIN 100 00 SKIN THREE Me dical unit/mL (3 TIMES Branch mL) DAILY. injection NOVOLOG 2021-0 Yes [id number] INJECT 40 [facility] FLEXPEN 7-22 UNITS ity of U-100 00:00: UNDER THE [place] INSULIN 100 00 SKIN THREE Me dical unit/mL (3 TIMES Branch mL) DAILY. injection NOVOLOG 2021- Yes [id number] INJECT 40 [facility] FLEXPEN 7-22 UNITS ity of U-100 00:00: UNDER THE [place] INSULIN 100 00 SKIN THREE Me dical unit/mL (3 TIMES Branch mL) DAILY. injection NOVOLOG Yes [id number] INJECT 40 [facility] FLEXPEN 7-22 UNITS ity of U-100 00:00: UNDER THE [place] INSULIN 100 00 SKIN THREE Me dical unit/mL (3 TIMES Branch mL) DAILY. injection NOVOLOG 0 Yes [id number] INJECT 40 [facility] FLEXPEN 7-22 UNITS ity of U-100 00:00: UNDER THE [place] INSULIN 100 00 SKIN THREE Me dical unit/mL (3 TIMES Branch mL) DAILY. injection NOVOLOG Yes [id number] INJECT 40 [facility] FLEXPEN 7-22 UNITS ity of U-100 00:00: UNDER THE [place] INSULIN 100 00 SKIN THREE Me dical unit/mL (3 TIMES Branch mL) DAILY. injection NOVOLOG Yes [id number] INJECT 40 [facility] FLEXPEN 7-22 UNITS ity of U-100 00:00: UNDER THE [place] INSULIN 100 00 SKIN THREE Me dical unit/mL (3 TIMES Branch mL) DAILY. injection NOVOLOG Yes [id number] INJECT 40 [facility] FLEXPEN 7-22 UNITS ity of U-100 00:00: UNDER THE [place] INSULIN 100 00 SKIN THREE Me dical unit/mL (3 TIMES Branch mL) DAILY. injection NOVOLOG Yes [id number] INJECT 40 [facility] FLEXPEN 7-22 UNITS ity of U-100 00:00: UNDER THE [place] INSULIN 100 00 SKIN THREE Me dical unit/mL (3 TIMES Branch mL) DAILY. injection NOVOLOG 2021- No [id number] INJECT 40 [facility] FLEXPEN 7-22 12-06 UNITS ity of U-100 00:00: 00:00 UNDER THE [place] INSULIN 100 00 :00 SKIN THREE Me dical unit/mL (3 TIMES Branch mL) DAILY. injection montelukast Yes [id number] 10mg Take 1 Univers 10 mg 6-23 tablet by ity of tablet 00:00: mouth daily. Medical Branch metoprolol 0 Yes [id number] 50mg Take 1 Un jb tartrate 50 6-23 tablet by ity of mg tablet 00:00: mouth 2 (two) Medical times Branch daily. tamsulosin 2021-0 Yes [id number] .4mg Take 1 [facility] 0.4 mg 24 6-23 9102 capsule by ity of hr capsule 00:00: mouth [place] 00 daily. Medical Branch finasteride 2021-0 Yes [id number] 5mg Take 1 [facility] 5 mg tablet 6-23 9102 tablet by ity of 00:00: mouth [place] 00 daily. Medical Branch albuterol 2021-0 Yes [id number] 2.5mg Inhale 3 Univers 2.5 mg /3 6-23 mL every 6 ity of mL (0.083 00:00: (six) [place] %) 00 hours as Medical nebulizer needed for Bran ch solution Wheezing or Shortness of Breath. allopurinoL 0 Yes [id number] 100mg Take 1 [facility] 100 mg 6-23 tablet by ity of tablet 00:00: mouth [place] 00 daily. Medical Branch montelukast 2021-0 Yes [id number] 10mg Take 1 [facility] 10 mg 6-23 tablet by ity of tablet 00:00: mouth [place] 00 daily. Medical Branch metoprolol 0 Yes [id number] 50mg Take 1 Un jb tartrate 50 6-23 tablet by ity of mg tablet 00:00: mouth 2 [place] 00 (two) Medical times Branch daily. tamsulosin 0 Yes [id number] .4mg Take 1 [facility] 0.4 mg 24 6-23 9102 capsule by ity of hr capsule 00:00: mouth [place] 00 daily. Medical Branch finasteride 2021-0 Yes [id number] 5mg Take 1 [facility] 5 mg tablet 6-23 9102 tablet by ity of 00:00: mouth [place] 00 daily. Medical Branch albuterol 2021-0 Yes [id number] 2.5mg Inhale 3 Univers 2.5 mg /3 6-23 mL every 6 ity of mL (0.083 00:00: (six) [place] %) 00 hours as Medical nebulizer needed for Bran ch solution Wheezing or Shortness of Breath. allopurinoL 2021-0 Yes [id number] 100mg Take 1 [facility] 100 mg 6-23 tablet by ity of tablet 00:00: mouth [place] 00 daily. Medical Branch montelukast 2021-0 Yes [id number] 10mg Take 1 [facility] 10 mg 6-23 tablet by ity of tablet 00:00: mouth [place] 00 daily. Medical Branch tamsulosin 2021-0 Yes [id number] .4mg Take 1 [facility] 0.4 mg 24 6-23 9102 capsule by ity of hr capsule 00:00: mouth [place] 00 daily. Medical Branch finasteride 0 Yes [id number] 5mg Take 1 [facility] 5 mg tablet 6-23 9102 tablet by ity of 00:00: mouth [place] 00 daily. Medical Branch albuterol 2021-0 Yes [id number] 2.5mg Inhale 3 [facility] 2.5 mg /3 6-23 mL every 6 ity of mL (0.083 00:00: (six) [place] %) 00 hours as Medical nebulizer needed for Bran ch solution Wheezing or Shortness of Breath. allopurinoL 0 Yes [id number] 100mg Take 1 [facility] 100 mg 6-23 tablet by ity of tablet 00:00: mouth [place] 00 daily. Medical Branch montelukast 0 Yes [id number] 10mg Take 1 [facility] 10 mg 6-23 tablet by ity of tablet 00:00: mouth [place] 00 daily. Medical Branch finasteride 0 Yes [id number] 5mg Take 1 [facility] 5 mg tablet 6-23 9102 tablet by ity of 00:00: mouth [place] 00 daily. Medical Branch albuterol 2021-0 Yes [id number] 2.5mg Inhale 3 [facility] 2.5 mg /3 6-23 mL every 6 ity of mL (0.083 00:00: (six) [place] %) 00 hours as Medical nebulizer needed for Bran ch solution Wheezing or Shortness of Breath. allopurinoL 2021-0 Yes [id number] 100mg Take 1 [facility] 100 mg 6-23 tablet by ity of tablet 00:00: mouth [place] 00 daily. Medical Branch montelukast 2021-0 Yes [id number] 10mg Take 1 [facility] 10 mg 6-23 tablet by ity of tablet 00:00: mouth [place] 00 daily. Medical Branch finasteride 0 Yes [id number] 5mg Take 1 [facility] 5 mg tablet 6-23 9102 tablet by ity of 00:00: mouth [place] 00 daily. Medical Branch albuterol 2021-0 Yes [id number] 2.5mg Inhale 3 Univers 2.5 mg /3 6-23 mL every 6 ity of mL (0.083 00:00: (six) [place] %) 00 hours as Medical nebulizer needed for Bran ch solution Wheezing or Shortness of Breath. allopurinoL 0 Yes [id number] 100mg Take 1 [facility] 100 mg 6-23 tablet by ity of tablet 00:00: mouth [place] 00 daily. Medical Branch albuterol 2021-0 Yes [id number] 2.5mg Inhale 3 [facility] 2.5 mg /3 6-23 mL every 6 ity of mL (0.083 00:00: (six) [place] %) 00 hours as Medical nebulizer needed for Bran ch solution Wheezing or Shortness of Breath. albuterol 0 Yes [id number] 2.5mg Inhale 3 Univers 2.5 mg /3 6-23 mL every 6 ity of mL (0.083 00:00: (six) [place] %) 00 hours as Medical nebulizer needed for Bran ch solution Wheezing or Shortness of Breath. albuterol 0 Yes [id number] 2.5mg Inhale 3 Univers 2.5 mg /3 6-23 mL every 6 ity of mL (0.083 00:00: (six) [place] %) 00 hours as Medical nebulizer needed for Bran ch solution Wheezing or Shortness of Breath. albuterol 0 Yes [id number] 2.5mg Inhale 3 Univers 2.5 mg /3 6-23 mL every 6 ity of mL (0.083 00:00: (six) [place] %) 00 hours as Medical nebulizer needed for Bran ch solution Wheezing or Shortness of Breath. albuterol 0 Yes [id number] 2.5mg Inhale 3 [facility] 2.5 mg /3 6-23 mL every 6 ity of mL (0.083 00:00: (six) [place] %) 00 hours as Medical nebulizer needed for Bran ch solution Wheezing or Shortness of Breath. albuterol 2021-0 Yes [id number] 2.5mg Inhale 3 [facility] 2.5 mg /3 6-23 mL every 6 ity of mL (0.083 00:00: (six) [place] %) 00 hours as Medical nebulizer needed for Bran ch solution Wheezing or Shortness of Breath. albuterol 2022-0 Yes [id number] 2.5mg Inhale 3 [facility] 2.5 mg /3 6-23 mL every 6 ity of mL (0.083 00:00: (six) [place] %) 00 hours as Medical nebulizer needed for Bran ch solution Wheezing or Shortness of Breath. albuterol 2021-0 Yes [id number] 2.5mg Inhale 3 [facility] 2.5 mg /3 6-23 mL every 6 ity of mL (0.083 00:00: (six) [place] %) 00 hours as Medical nebulizer needed for Bran ch solution Wheezing or Shortness of Breath. albuterol 2021-0 Yes [id number] 2.5mg Inhale 3 [facility] 2.5 mg /3 6-23 mL every 6 ity of mL (0.083 00:00: (formerly [facility]) [place] %) 00 hours as Medical nebulizer needed for Bran ch solution Wheezing or Shortness of Breath. albuterol 2021-0 Yes [id number] 2.5mg Inhale 3 [facility] 2.5 mg /3 6-23 mL every 6 ity of mL (0.083 00:00: (six) [place] %) 00 hours as Medical nebulizer needed for Bran ch solution Wheezing or Shortness of Breath. albuterol 2021-0 Yes [id number] 2.5mg Inhale 3 [facility] 2.5 mg /3 6-23 mL every 6 ity of mL (0.083 00:00: (six) [place] %) 00 hours as Medical nebulizer needed for Bran ch solution Wheezing or Shortness of Breath. albuterol 2021-0 Yes [id number] 2.5mg Inhale 3 Univers 2.5 mg /3 6-23 mL every 6 ity of mL (0.083 00:00: (six) [place] %) 00 hours as Medical nebulizer needed for Bran ch solution Wheezing or Shortness of Breath. albuterol 2021-0 Yes [id number] 2.5mg Inhale 3 Univers 2.5 mg /3 6-23 mL every 6 ity of mL (0.083 00:00: (six) [place] %) 00 hours as Medical nebulizer needed for Bran ch solution Wheezing or Shortness of Breath. albuterol 2-0 Yes [id number] 2.5mg Inhale 3 Univers 2.5 mg /3 6-23 mL every 6 ity of mL (0.083 00:00: (six) [place] %) 00 hours as Medical nebulizer needed for Bran ch solution Wheezing or Shortness of Breath. albuterol 2022-0 Yes [id number] 2.5mg Inhale 3 Univers 2.5 mg /3 6-23 mL every 6 ity of mL (0.083 00:00: (six) [place] %) 00 hours as Medical nebulizer needed for Bran ch solution Wheezing or Shortness of Breath. albuterol 2-0 Yes [id number] 2.5mg Inhale 3 Univers 2.5 mg /3 6-23 mL every 6 ity of mL (0.083 00:00: (formerly [facility], [facility]) [place] %) 00 hours as Medical nebulizer needed for Bran ch solution Wheezing or Shortness of Breath. albuterol 2021-0 Yes [id number] 2.5mg Inhale 3 Univers 2.5 mg /3 6-23 mL every 6 ity of mL (0.083 00:00: (formerly [facility], [facility]) [place] %) 00 hours as Medical nebulizer needed for Bran ch solution Wheezing or Shortness of Breath. albuterol 2021-0 Yes [id number] 2.5mg Inhale 3 Univers 2.5 mg /3 6-23 mL every 6 ity of mL (0.083 00:00: (formerly [facility], [facility]) [place] %) 00 hours as Medical nebulizer needed for Bran ch solution Wheezing or Shortness of Breath. albuterol 2-0 Yes [id number] 2.5mg Inhale 3 Univers 2.5 mg /3 6-23 mL every 6 ity of mL (0.083 00:00: (formerly [facility], [facility]) [place] %) 00 hours as Medical nebulizer needed for Bran ch solution Wheezing or Shortness of Breath. albuterol 2022-0 Yes [id number] 2.5mg Inhale 3 Univers 2.5 mg /3 6-23 mL every 6 ity of mL (0.083 00:00: (six) [place] %) 00 hours as Medical nebulizer needed for Bran ch solution Wheezing or Shortness of Breath. albuterol 2022-0 Yes [id number] 2.5mg Inhale 3 Univers 2.5 mg /3 6-23 mL every 6 ity of mL (0.083 00:00: (formerly [facility], [facility]) [place] %) 00 hours as Medical nebulizer needed for Bran ch solution Wheezing or Shortness of Breath. montelukast 2021- No [id number] 10mg Take 1 Univers 10 mg 08-15 tablet by ity of tablet 00:00: 00:00 mouth [place] 00 :00 daily. Medical Branch finasteride 2021- No [id number] 5mg Take 1 [facility] 5 mg tablet 08-15 9102 tablet by it y of 00:00: 00:00 mouth [place] 00 :00 daily. Medical Branch allopurinoL 2021- No [id number] 100mg Take 1 Univers 100 mg 08-15 tablet by ity of tablet 00:00: 00:00 mouth [place] 00 :00 daily. Medical Branch metoprolol 2021- No [id number] 50mg Take 1 U nivers tartrate 50 08-15 tablet by it y of mg tablet 00:00: 00:[place] :[place] (two) Medical times Branch daily. metoprolol 2021- No [id number] 50mg Take 1 U nivers tartrate 50 08-15 tablet by it y of mg tablet 00:00: 00:[place] :[place] (two) Medical times Branch daily. tamsulosin 2021- No [id number] .4mg Take 1 [facility] 0.4 mg 24 08-15 9102 capsule by ity of hr capsule 00:00: 00:00 mouth [place] 00 :00 daily. Medical Branch hydroCHLORO 2021- No [id number] 25mg Take 1 Univers thiazide 25 08-15 tablet by it y of mg tablet 00:00: 00:00 mouth [place] 00 :00 daily. Medical Branch enalapril 2021- No [id number] 10mg Take 1 Un jb 10 mg 08-15 tablet by ity of tablet 00:00: 00:00 mouth [place] 00 :00 daily. Medical Branch clotrimazol Yes [id number] Apply to Univers e-betametha 5-25 area(s) 2 ity of sone 1-0.05 00:00: (two) [place] % lotion 00 times Medical daily. 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 Branch Blood-Gluco 2022-0 Yes [id number] Use as Univers se 5-25 directed ity of Meter,Angie 00:00: [place] nuous 00 Medical (DEXCOM G6 Branch WIRE FRAME LAMPSHADE MAKER) Misc Blood-Gluco 2022-0 Yes [id number] Use as Univers se Sensor 5-25 directed ity of (DEXCOM G6 00:00: [place] SENSOR) 00 Medical [place] Branch Blood-Gluco 2022-0 Yes [id number] Use as Univers se 5-25 directed ity of Transmitter 00:00: [place] (DEXCOM G6 00 Medical TRANSMITTER Branch ) [place] clotrimazol 2022-0 Yes [id number] Apply to Univers e-betametha 5-25 area(s) 2 ity of sone 1-0.05 00:00: (two) [place] % lotion 00 times Medical daily. Branch Blood-Gluco 2022-0 Yes [id number] Use as Univers se 5-25 directed ity of Meter,Angie 00:00: [place] nuous 00 Medical (DEXCOM G6 Branch WIRE FRAME LAMPSHADE MAKER) Misc Blood-Gluco 2022-0 Yes [id number] Use as Univers se Sensor 5-25 directed ity of (DEXCOM G6 00:00: [place] SENSOR) 00 Medical [place] Branch Blood-Gluco 2022-0 Yes [id number] Use as Univers se 5-25 directed ity of Transmitter 00:00: [place] (DEXCOM G6 00 Medical TRANSMITTER Branch ) [place] clotrimazol 2022-0 Yes [id number] Apply to Univers e-betametha 5-25 area(s) 2 ity of sone 1-0.05 00:00: (two) [place] % lotion 00 times Medical daily. Branch Blood-Gluco 2022-0 Yes [id number] Use as Univers se 5-25 directed ity of Meter,Angie 00:00: [place] nuous 00 Medical (DEXCOM G6 Branch WIRE FRAME LAMPSHADE MAKER) Misc Blood-Gluco 2022-0 Yes [id number] Use as Univers se Sensor 5-25 directed ity of (DEXCOM G6 00:00: [place] SENSOR) 00 Medical [place] Branch Blood-Gluco 2022-0 Yes [id number] Use as Univers se 5-25 directed ity of Transmitter 00:00: [place] (DEXCOM G6 00 Medical TRANSMITTER Branch ) [place] clotrimazol 2022-0 Yes [id number] Apply to Univers e-betametha 5-25 area(s) 2 ity of sone 1-0.05 00:00: (two) [place] % lotion 00 times Medical daily. Branch Blood-Gluco 2022-0 Yes [id number] Use as Univers se 5-25 directed ity of Meter,Angie 00:00: [place] nuous 00 Medical (DEXCOM G6 Branch WIRE FRAME LAMPSHADE MAKER) Misc Blood-Gluco 2022-0 Yes [id number] Use as Univers se Sensor 5-25 directed ity of (DEXCOM G6 00:00: [place] SENSOR) 00 Medical [place] Branch Blood-Gluco 2022-0 Yes [id number] Use as Univers se 5-25 directed ity of Transmitter 00:00: [place] (DEXCOM G6 00 Medical TRANSMITTER Branch ) [place] clotrimazol 2022-0 Yes [id number] Apply to Univers e-betametha 5-25 area(s) 2 ity of sone 1-0.05 00:00: (two) [place] % lotion 00 times Medical daily. Branch Blood-Gluco 2022-0 Yes [id number] Use as Univers se 5-25 directed ity of Meter,Angie 00:00: [place] nuous 00 Medical (DEXCOM G6 Branch WIRE FRAME LAMPSHADE MAKER) Misc Blood-Gluco 2022-0 Yes [id number] Use as Univers se Sensor 5-25 directed ity of (DEXCOM G6 00:00: [place] SENSOR) 00 Medical [place] Branch Blood-Gluco 2022-0 Yes [id number] Use as Univers se 5-25 directed ity of Transmitter 00:00: [place] (DEXCOM G6 00 Medical TRANSMITTER Branch ) [place] clotrimazol 2022-0 Yes [id number] Apply to Univers e-betametha 5-25 area(s) 2 ity of sone 1-0.05 00:00: (two) [place] % lotion 00 times Medical daily. Branch Blood-Gluco 2022-0 Yes [id number] Use as Univers se 5-25 directed ity of Meter,Angie 00:00: [place] nuous 00 Medical (DEXCOM G6 Branch WIRE FRAME LAMPSHADE MAKER) Misc Blood-Gluco 2022-0 Yes [id number] Use as Univers se Sensor 5-25 directed ity of (DEXCOM G6 00:00: [place] SENSOR) 00 Medical [place] Branch Blood-Gluco 2022-0 Yes [id number] Use as Univers se 5-25 directed ity of Transmitter 00:00: [place] (DEXCOM G6 00 Medical TRANSMITTER Branch ) [place] clotrimazol 2022-0 Yes [id number] Apply to Univers e-betametha 5-25 area(s) 2 ity of sone 1-0.05 00:00: (two) [place] % lotion 00 times Medical daily. Branch Blood-Gluco 2022-0 Yes [id number] Use as Univers se 5-25 directed ity of Meter,Angie 00:00: [place] nuous 00 Medical (DEXCOM G6 Branch WIRE FRAME LAMPSHADE MAKER) Misc Blood-Gluco 2022-0 Yes [id number] Use as Univers se Sensor 5-25 directed ity of (DEXCOM G6 00:00: [place] SENSOR) 00 Medical [place] Branch Blood-Gluco 2022-0 Yes [id number] Use as Univers se 5-25 directed ity of Transmitter 00:00: [place] (DEXCOM G6 00 Medical TRANSMITTER Branch ) [place] clotrimazol 2022-0 Yes [id number] Apply to Univers e-betametha 5-25 area(s) 2 ity of sone 1-0.05 00:00: (two) [place] % lotion 00 times Medical daily. Branch Blood-Gluco 2022-0 Yes [id number] Use as Univers se 5-25 directed ity of Meter,Angie 00:00: [place] nuous 00 Medical (DEXCOM G6 Branch WIRE FRAME LAMPSHADE MAKER) Misc Blood-Gluco 2022-0 Yes [id number] Use as Univers se Sensor 5-25 directed ity of (DEXCOM G6 00:00: [place] SENSOR) 00 Medical [place] Branch Blood-Gluco 2022-0 Yes [id number] Use as Univers se 5-25 directed ity of Transmitter 00:00: [place] (DEXCOM G6 00 Medical TRANSMITTER Branch ) [place] clotrimazol 2022-0 Yes [id number] Apply to Univers e-betametha 5-25 area(s) 2 ity of sone 1-0.05 00:00: (two) [place] % lotion 00 times Medical daily. Branch Blood-Gluco 2022-0 Yes [id number] Use as Univers se 5-25 directed ity of Meter,Angie 00:00: [place] nuous 00 Medical (DEXCOM G6 Branch WIRE FRAME LAMPSHADE MAKER) Misc Blood-Gluco 2022-0 Yes [id number] Use as Univers se Sensor 5-25 directed ity of (DEXCOM G6 00:00: [place] SENSOR) 00 Medical [place] Branch Blood-Gluco 2022-0 Yes [id number] Use as Univers se 5-25 directed ity of Transmitter 00:00: [place] (DEXCOM G6 00 Medical TRANSMITTER Branch ) [place] clotrimazol 2022-0 Yes [id number] Apply to Univers e-betametha 5-25 area(s) 2 ity of sone 1-0.05 00:00: (two) [place] % lotion 00 times Medical daily. Branch Blood-Gluco 2022-0 Yes [id number] Use as Univers se 5-25 directed ity of Meter,Angie 00:00: [place] nuous 00 Medical (DEXCOM G6 Branch WIRE FRAME LAMPSHADE MAKER) Misc Blood-Gluco 2022-0 Yes [id number] Use as Univers se Sensor 5-25 directed ity of (DEXCOM G6 00:00: [place] SENSOR) 00 Medical [place] Branch Blood-Gluco 2022-0 Yes [id number] Use as Univers se 5-25 directed ity of Transmitter 00:00: [place] (DEXCOM G6 00 Medical TRANSMITTER Branch ) [place] clotrimazol 2022-0 Yes [id number] Apply to Univers e-betametha 5-25 area(s) 2 ity of sone 1-0.05 00:00: (two) [place] % lotion 00 times Medical daily. Branch Blood-Gluco 2022-0 Yes [id number] Use as Univers se 5-25 directed ity of Meter,Angie 00:00: [place] nuous 00 Medical (DEXCOM G6 Branch WIRE FRAME LAMPSHADE MAKER) Misc Blood-Gluco 2022-0 Yes [id number] Use as Univers se Sensor 5-25 directed ity of (DEXCOM G6 00:00: [place] SENSOR) 00 Medical [place] Branch Blood-Gluco 2022-0 Yes [id number] Use as Univers se 5-25 directed ity of Transmitter 00:00: [place] (DEXCOM G6 00 Medical TRANSMITTER Branch ) [place] clotrimazol 2022-0 Yes [id number] Apply to Univers e-betametha 5-25 area(s) 2 ity of sone 1-0.05 00:00: (two) [place] % lotion 00 times Medical daily. Branch Blood-Gluco 2022-0 Yes [id number] Use as Univers se 5-25 directed ity of Meter,Angie 00:00: [place] nuous 00 Medical (DEXCOM G6 Branch WIRE FRAME LAMPSHADE MAKER) Misc Blood-Gluco 2022-0 Yes [id number] Use as Univers se Sensor 5-25 directed ity of (DEXCOM G6 00:00: [place] SENSOR) 00 Medical [place] Branch Blood-Gluco 2022-0 Yes [id number] Use as Univers se 5-25 directed ity of Transmitter 00:00: [place] (DEXCOM G6 00 Medical TRANSMITTER Branch ) [place] clotrimazol 2022-0 Yes [id number] Apply to Univers e-betametha 5-25 area(s) 2 ity of sone 1-0.05 00:00: (two) [place] % lotion 00 times Medical daily. Branch Blood-Gluco 2022-0 Yes [id number] Use as Univers se 5-25 directed ity of Meter,Angie 00:00: [place] nuous 00 Medical (DEXCOM G6 Branch WIRE FRAME LAMPSHADE MAKER) Misc Blood-Gluco 2022-0 Yes [id number] Use as Univers se Sensor 5-25 directed ity of (DEXCOM G6 00:00: [place] SENSOR) 00 Medical [place] Branch Blood-Gluco 2022-0 Yes [id number] Use as Univers se 5-25 directed ity of Transmitter 00:00: [place] (DEXCOM G6 00 Medical TRANSMITTER Branch ) [place] clotrimazol 2022-0 Yes [id number] Apply to Univers e-betametha 5-25 area(s) 2 ity of sone 1-0.05 00:00: (two) [place] % lotion 00 times Medical daily. Branch Blood-Gluco 2022-0 Yes [id number] Use as Univers se 5-25 directed ity of Meter,Angie 00:00: [place] nuous 00 Medical (DEXCOM G6 Branch WIRE FRAME LAMPSHADE MAKER) Misc Blood-Gluco 2022-0 Yes [id number] Use as Univers se Sensor 5-25 directed ity of (DEXCOM G6 00:00: [place] SENSOR) 00 Medical [place] Branch Blood-Gluco 2022-0 Yes [id number] Use as Univers se 5-25 directed ity of Transmitter 00:00: [place] (DEXCOM G6 00 Medical TRANSMITTER Branch ) [place] clotrimazol 2022-0 Yes [id number] Apply to Univers e-betametha 5-25 area(s) 2 ity of sone 1-0.05 00:00: (two) [place] % lotion 00 times Medical daily. Branch Blood-Gluco 2022-0 Yes [id number] Use as Univers se 5-25 directed ity of Meter,Angie 00:00: [place] nuous 00 Medical (DEXCOM G6 Branch WIRE FRAME LAMPSHADE MAKER) Misc Blood-Gluco 2022-0 Yes [id number] Use as Univers se Sensor 5-25 directed ity of (DEXCOM G6 00:00: [place] SENSOR) 00 Medical [place] Branch Blood-Gluco 2022-0 Yes [id number] Use as Univers se 5-25 directed ity of Transmitter 00:00: [place] (DEXCOM G6 00 Medical TRANSMITTER Branch ) [place] clotrimazol 2022-0 Yes [id number] Apply to Univers e-betametha 5-25 area(s) 2 ity of sone 1-0.05 00:00: (two) [place] % lotion 00 times Medical daily. Branch Blood-Gluco 2022-0 Yes [id number] Use as Univers se 5-25 directed ity of Meter,Angie 00:00: [place] nuous 00 Medical (DEXCOM G6 Branch WIRE FRAME LAMPSHADE MAKER) Misc Blood-Gluco 2022-0 Yes [id number] Use as Univers se Sensor 5-25 directed ity of (DEXCOM G6 00:00: [place] SENSOR) 00 Medical [place] Branch Blood-Gluco 2022-0 Yes [id number] Use as Univers se 5-25 directed ity of Transmitter 00:00: [place] (DEXCOM G6 00 Medical TRANSMITTER Branch ) [place] clotrimazol 2022-0 Yes [id number] Apply to Univers e-betametha 5-25 area(s) 2 ity of sone 1-0.05 00:00: (two) [place] % lotion 00 times Medical daily. Branch Blood-Gluco 2022-0 Yes [id number] Use as Univers se 5-25 directed ity of Meter,Angie 00:00: [place] nuous 00 Medical (DEXCOM G6 Branch WIRE FRAME LAMPSHADE MAKER) Misc Blood-Gluco 2022-0 Yes [id number] Use as Univers se Sensor 5-25 directed ity of (DEXCOM G6 00:00: [place] SENSOR) 00 Medical [place] Branch Blood-Gluco 2022-0 Yes [id number] Use as Univers se 5-25 directed ity of Transmitter 00:00: [place] (DEXCOM G6 00 Medical TRANSMITTER Branch ) [place] clotrimazol 2022-0 Yes [id number] Apply to Univers e-betametha 5-25 area(s) 2 ity of sone 1-0.05 00:00: (two) [place] % lotion 00 times Medical daily. Branch Blood-Gluco 2022-0 Yes [id number] Use as Univers se 5-25 directed ity of Meter,Angie 00:00: [place] nuous 00 Medical (DEXCOM G6 Branch WIRE FRAME LAMPSHADE MAKER) Misc Blood-Gluco 2022-0 Yes [id number] Use as Univers se Sensor 5-25 directed ity of (DEXCOM G6 00:00: [place] SENSOR) 00 Medical [place] Branch Blood-Gluco 2022-0 Yes [id number] Use as Univers se 5-25 directed ity of Transmitter 00:00: [place] (DEXCOM G6 00 Medical TRANSMITTER Branch ) [place] clotrimazol 2022-0 Yes [id number] Apply to Univers e-betametha 5-25 area(s) 2 ity of sone 1-0.05 00:00: (two) [place] % lotion 00 times Medical daily. Branch Blood-Gluco 2022-0 Yes [id number] Use as Univers se 5-25 directed ity of Meter,Angie 00:00: [place] nuous 00 Medical (DEXCOM G6 Branch WIRE FRAME LAMPSHADE MAKER) Misc Blood-Gluco 2022-0 Yes [id number] Use as Univers se Sensor 5-25 directed ity of (DEXCOM G6 00:00: [place] SENSOR) 00 Medical [place] Branch Blood-Gluco 2022-0 Yes [id number] Use as Univers se 5-25 directed ity of Transmitter 00:00: [place] (DEXCOM G6 00 Medical TRANSMITTER Branch ) [place] clotrimazol 2022-0 Yes [id number] Apply to Univers e-betametha 5-25 area(s) 2 ity of sone 1-0.05 00:00: (two) [place] % lotion 00 times Medical daily. Branch Blood-Gluco 2022-0 Yes [id number] Use as Univers se 5-25 directed ity of Meter,Angie 00:00: [place] nuous 00 Medical (DEXCOM G6 Branch WIRE FRAME LAMPSHADE MAKER) Misc Blood-Gluco 2022-0 Yes [id number] Use as Univers se Sensor 5-25 directed ity of (DEXCOM G6 00:00: [place] SENSOR) 00 Medical [place] Branch Blood-Gluco 2022-0 Yes [id number] Use as Univers se 5-25 directed ity of Transmitter 00:00: [place] (DEXCOM G6 00 Medical TRANSMITTER Branch ) [place] clotrimazol 2022-0 Yes [id number] Apply to Univers e-betametha 5-25 area(s) 2 ity of sone 1-0.05 00:00: (two) [place] % lotion 00 times Medical daily. Branch Blood-Gluco 2022-0 Yes [id number] Use as Univers se 5-25 directed ity of Meter,Angie 00:00: [place] nuous 00 Medical (DEXCOM G6 Branch WIRE FRAME LAMPSHADE MAKER) Misc Blood-Gluco 2022-0 Yes [id number] Use as Univers se Sensor 5-25 directed ity of (DEXCOM G6 00:00: [place] SENSOR) 00 Medical [place] Branch Blood-Gluco 2022-0 Yes [id number] Use as Univers se 5-25 directed ity of Transmitter 00:00: [place] (DEXCOM G6 00 Medical TRANSMITTER Branch ) [place] clotrimazol 2022-0 Yes [id number] Apply to Univers e-betametha 5-25 area(s) 2 ity of sone 1-0.05 00:00: (two) [place] % lotion 00 times Medical daily. Branch Blood-Gluco 2022-0 Yes [id number] Use as Univers se 5-25 directed ity of Meter,Angie 00:00: [place] nuous 00 Medical (DEXCOM G6 Branch WIRE FRAME LAMPSHADE MAKER) Misc Blood-Gluco 2022-0 Yes [id number] Use as Univers se Sensor 5-25 directed ity of (DEXCOM G6 00:00: [place] SENSOR) 00 Medical [place] Branch Blood-Gluco 2022-0 Yes [id number] Use as Univers se 5-25 directed ity of Transmitter 00:00: [place] (DEXCOM G6 00 Medical TRANSMITTER Branch ) [place] clotrimazol 2022-0 Yes [id number] Apply to Univers e-betametha 5-25 area(s) 2 ity of sone 1-0.05 00:00: (two) [place] % lotion 00 times Medical daily. Branch Blood-Gluco 2022-0 Yes [id number] Use as Univers se 5-25 directed ity of Meter,Angie 00:00: [place] nuous 00 Medical (DEXCOM G6 Branch WIRE FRAME LAMPSHADE MAKER) Misc Blood-Gluco 2022-0 Yes [id number] Use as Univers se Sensor 5-25 directed ity of (DEXCOM G6 00:00: [place] SENSOR) 00 Medical [place] Branch Blood-Gluco 2022-0 Yes [id number] Use as Univers se 5-25 directed ity of Transmitter 00:00: [place] (DEXCOM G6 00 Medical TRANSMITTER Branch ) [place] clotrimazol 0 Yes [id number] Apply to Univers e-betametha 5-25 area(s) 2 ity of sone 1-0.05 00:00: (two) [place] % lotion 00 times Medical daily. Branch Blood-Gluco 0 Yes [id number] Use as Univers se 5-25 directed ity of Meter,Angie 00:00: [place] nuous 00 Medical (DEXCOM G6 Branch WIRE FRAME LAMPSHADE MAKER) Misc Blood-Gluco 0 Yes [id number] Use as Univers se Sensor 5-25 directed ity of (DEXCOM G6 00:00: [place] SENSOR) 00 Medical [place] Branch Blood-Gluco Yes [id number] Use as Univers se 5-25 directed ity of Transmitter 00:00: [place] (DEXCOM G6 00 Medical TRANSMITTER Branch ) Sylvia Insulin Yes [id number] INJECT 50 Univers Glargine 4-25 UNITS ity of (LANTUS 00:00: UNDER THE [place] SOLOSTAR 00 SKIN EVERY Medic al U-100 NIGHT AT Branch INSULIN) BEDTIME. 100 unit/mL (3 mL) injection Insulin Yes [id number] INJECT 50 Univers Glargine 4-25 UNITS ity of (LANTUS 00:00: UNDER THE [place] SOLOSTAR 00 SKIN EVERY Medic al U-100 NIGHT AT Branch INSULIN) BEDTIME. 100 unit/mL (3 mL) injection Insulin Yes [id number] INJECT 50 Univers Glargine 4-25 UNITS ity of (LANTUS 00:00: UNDER THE [place] SOLOSTAR 00 SKIN EVERY Medic al U-100 NIGHT AT Branch INSULIN) BEDTIME. 100 unit/mL (3 mL) injection Insulin Yes [id number] INJECT 50 Univers Glargine 4-25 UNITS ity of (LANTUS 00:00: UNDER THE [place] SOLOSTAR 00 SKIN EVERY Medic al U-100 NIGHT AT Branch INSULIN) BEDTIME. 100 unit/mL (3 mL) injection Insulin 2021- No [id number] INJECT 50 Univers Glargine 4-25 11-02 UNITS ity of (LANTUS 00:00: 00:00 [place] SOLOST[place] 00 :00 SKIN EVERY Medic al U-100 NIGHT AT Branch INSULIN) BEDTIME. 100 unit/mL (3 mL) injection esomeprazol Yes [id number] TAKE 1 Univers e 20 mg 3-07 CAPSULE BY ity of capsule 00:00: MOUTH [place] 00 EVERY DAY Medical Branch esomeprazol Yes [id number] TAKE 1 Univers e 20 mg 3-07 CAPSULE BY ity of capsule 00:00: MOUTH [place] 00 EVERY DAY Medical Branch esomeprazol Yes [id number] TAKE 1 Univers e 20 mg 3-07 CAPSULE BY ity of capsule 00:00: MOUTH [place] 00 EVERY DAY Medical Branch esomeprazol Yes [id number] TAKE 1 Univers e 20 mg 3-07 CAPSULE BY ity of capsule 00:00: MOUTH [place] 00 EVERY DAY Medical Branch esomeprazol Yes [id number] TAKE 1 Univers e 20 mg 3-07 CAPSULE BY ity of capsule 00:00: MOUTH [place] 00 EVERY DAY Medical Branch esomeprazol Yes [id number] TAKE 1 Univers e 20 mg 3-07 CAPSULE BY ity of capsule 00:00: MOUTH [place] 00 EVERY DAY Medical Branch esomeprazol Yes [id number] TAKE 1 Univers e 20 mg 3-07 CAPSULE BY ity of capsule 00:00: MOUTH [place] 00 EVERY DAY Medical Branch esomeprazol Yes [id number] TAKE 1 Univers e 20 mg 3-07 CAPSULE BY ity of capsule 00:00: MOUTH [place] 00 EVERY DAY Medical Branch esomeprazol Yes [id number] TAKE 1 Univers e 20 mg 3-07 CAPSULE BY ity of capsule 00:00: MOUTH [place] 00 EVERY DAY Medical Branch esomeprazol Yes [id number] TAKE 1 Univers e 20 mg 3-07 CAPSULE BY ity of capsule 00:00: MOUTH [place] 00 EVERY DAY Medical Branch esomeprazol Yes [id number] TAKE 1 Univers e 20 mg 3-07 CAPSULE BY ity of capsule 00:00: MOUTH [place] 00 EVERY DAY Medical Branch esomeprazol Yes [id number] TAKE 1 Univers e 20 mg 3-07 CAPSULE BY ity of capsule 00:00: MOUTH [place] 00 EVERY DAY Medical Branch esomeprazol Yes [id number] TAKE 1 Univers e 20 mg 3-07 CAPSULE BY ity of capsule 00:00: MOUTH [place] 00 EVERY DAY Medical Branch esomeprazol 0 Yes [id number] TAKE 1 Univers e 20 mg 3-07 CAPSULE BY ity of capsule 00:00: MOUTH [place] EVERY DAY Medical Branch esomeprazol 0 Yes [id number] TAKE 1 Univers e 20 mg 3-07 CAPSULE BY ity of capsule 00:00: MOUTH [place] 00 EVERY DAY Medical Branch esomeprazol Yes [id number] TAKE 1 Univers e 20 mg 3-07 CAPSULE BY ity of capsule 00:00: MOUTH EVERY DAY Medical Branch esomeprazol Yes [id number] TAKE 1 Univers e 20 mg 3-07 CAPSULE BY ity of capsule 00:00: MOUTH [place] DAY Medical Branch esomeprazol Yes [id number] TAKE 1 Univers e 20 mg 3-07 CAPSULE BY ity of capsule 00:00: MOUTH DAY Medical Branch esomeprazol 3- No [id number] TAKE 1 Univers e 20 mg 3-07 -03 CAPSULE BY ity o f capsule 00:00: 00:00 MOUTH [place] 00 :00 EVERY DAY Medical Branch Lancing 0 Yes [id number] Use as Uni vers Device with 11-21 directed. ity of Lancets 00:00: June (ONE TOUCH 00 substitute Med ical DELICA) Kit brand Branch preferred by insurance Blood-Gluco Yes [id number] Use as Univers se Meter 11-21 directed. ity of (ONETOUCH 00:00: June [place] VERIO FLEX 00 substitute Med ical START) Kit brand Branch preferred by insurance blood sugar Yes [id number] Test 4x Univers diagnostic 11-21 daily for ity of (ONETOUCH 00:00: diagnosis [place] VERIO TEST 00 code Medical STRIPS) E11.9. May Branch strip substitute brand preferred by insurance Lancing Yes [id number] Use as Uni vers Device with 11-21 directed. ity of Lancets 00:00: [place] (ONE TOUCH 00 substitute Med ical DELICA) Kit brand Branch preferred by insurance Blood-Gluco Yes [id number] Use as Univers se Meter 929 directed. ity of (ONETOUCH 00:00: June [place] VERIO FLEX 00 substitute Med ical START) Kit brand Branch preferred by insurance blood sugar Yes [id number] Test 4x Univers diagnostic 929 daily for ity of (ONETOUCH 00:00: diagnosis [place] VERIO TEST 00 code Medical STRIPS) E11.9. May Branch strip substitute brand preferred by insurance Lancing Yes [id number] Use as Uni vers Device with 9 directed. ity of Lancets 00:00: June [place] (ONE TOUCH 00 substitute Med ical DELICA) Kit brand Branch preferred by insurance Blood-Gluco Yes [id number] Use as Univers se Meter 9 directed. ity of (ONETOUCH 00:00: June [place] VERIO FLEX 00 substitute Med ical START) Kit brand Branch preferred by insurance blood sugar Yes [id number] Test 4x [facility] diagnostic 9 daily for ity of (ONETOUCH 00:00: diagnosis [place] VERIO TEST 00 code Medical STRIPS) E11.9. May Branch strip substitute brand preferred by insurance Lancing Yes [id number] Use as Uni vers Device with 9 directed. ity of Lancets 00:00: June [place] (ONE TOUCH 00 substitute Med ical DELICA) Kit brand Branch preferred by insurance Blood-Gluco Yes [id number] Use as [facility] se Meter 929 directed. ity of (ONETOUCH 00:00: June [place] VERIO FLEX 00 substitute Med ical START) Kit brand Branch preferred by insurance blood sugar Yes [id number] Test 4x [facility] diagnostic 929 daily for ity of (ONETOUCH 00:00: diagnosis [place] VERIO TEST 00 code Medical STRIPS) E11.9. May Branch strip substitute brand preferred by insurance Lancing Yes [id number] Use as Uni vers Device with 929 directed. ity of Lancets 00:00: June [place] (ONE TOUCH 00 substitute Med ical DELICA) Kit brand Branch preferred by insurance Blood-Gluco 0 Yes [id number] Use as [facility] se Meter 9-29 directed. ity of (ONETOUCH 00:00: June [place] VERIO FLEX 00 substitute Med ical START) Kit brand Branch preferred by insurance blood sugar 0 Yes [id number] Test 4x [facility] diagnostic 929 daily for ity of (ONETOUCH 00:00: diagnosis [place] VERIO TEST 00 code Medical STRIPS) E11.9. May Branch strip substitute brand preferred by insurance Lancing Yes [id number] Use as Uni vers Device with 929 directed. ity of Lancets 00:00: June [place] (ONE TOUCH 00 substitute Med ical DELICA) Kit brand Branch preferred by insurance Blood-Gluco Yes [id number] Use as [facility] se Meter 9-29 directed. ity of (ONETOUCH 00:00: June [place] VERIO FLEX 00 substitute Med ical START) Kit brand Branch preferred by insurance blood sugar Yes [id number] Test 4x [facility] diagnostic 929 daily for ity of (ONETOUCH 00:00: diagnosis [place] VERIO TEST 00 code Medical STRIPS) E11.9. May Branch strip substitute brand preferred by insurance Lancing Yes [id number] Use as Uni vers Device with 929 directed. ity of Lancets 00:00: June [place] (ONE TOUCH 00 substitute Med ical DELICA) Kit brand Branch preferred by insurance Blood-Gluco Yes [id number] Use as [facility] se Meter 9-29 directed. ity of (ONETOUCH 00:00: June [place] VERIO FLEX 00 substitute Med ical START) Kit brand Branch preferred by insurance blood sugar 0 Yes [id number] Test 4x [facility] diagnostic 929 daily for ity of (ONETOUCH 00:00: diagnosis [place] VERIO TEST 00 code Medical STRIPS) E11.9. May Branch strip substitute brand preferred by insurance Lancing Yes [id number] Use as Uni vers Device with 9-29 directed. ity of Lancets 00:00: June [place] (ONE TOUCH 00 substitute Med ical DELICA) Kit brand Branch preferred by insurance Blood-Gluco 0 Yes [id number] Use as [facility] se Meter 929 directed. ity of (ONETOUCH 00:00: June [place] VERIO FLEX 00 substitute Med ical START) Kit brand Branch preferred by insurance blood sugar Yes [id number] Test 4x [facility] diagnostic 929 daily for ity of (ONETOUCH 00:00: diagnosis [place] VERIO TEST 00 code Medical STRIPS) E11.9. May Branch strip substitute brand preferred by insurance Lancing Yes [id number] Use as Uni vers Device with 929 directed. ity of Lancets 00:00: June [place] (ONE TOUCH 00 substitute Med ical DELICA) Kit brand Branch preferred by insurance Blood-Gluco Yes [id number] Use as [facility] se Meter 9 directed. ity of (ONETOUCH 00:00: June [place] VERIO FLEX 00 substitute Med ical START) Kit brand Branch preferred by insurance blood sugar Yes [id number] Test 4x [facility] diagnostic 9 daily for ity of (ONETOUCH 00:00: diagnosis [place] VERIO TEST 00 code Medical STRIPS) E11.9. May Branch strip substitute brand preferred by insurance Lancing Yes [id number] Use as Uni vers Device with 9 directed. ity of Lancets 00:00: June [place] (ONE TOUCH 00 substitute Med ical DELICA) Kit brand Branch preferred by insurance Blood-Gluco Yes [id number] Use as [facility] se Meter 9 directed. ity of (ONETOUCH 00:00: June [place] VERIO FLEX 00 substitute Med ical START) Kit brand Branch preferred by insurance blood sugar Yes [id number] Test 4x [facility] diagnostic 9 daily for ity of (ONETOUCH 00:00: diagnosis [place] VERIO TEST 00 code Medical STRIPS) E11.9. May Branch strip substitute brand preferred by insurance Lancing Yes [id number] Use as Uni vers Device with 9-29 directed. ity of Lancets 00:00: June [place] (ONE TOUCH 00 substitute Med ical DELICA) Kit brand Branch preferred by insurance Blood-Gluco 0 Yes [id number] Use as [facility] se Meter 9 directed. ity of (ONETOUCH 00:00: June [place] VERIO FLEX 00 substitute Med ical START) Kit brand Branch preferred by insurance blood sugar 0 Yes [id number] Test 4x [facility] diagnostic 9-29 daily for ity of (ONETOUCH 00:00: diagnosis [place] VERIO TEST 00 code Medical STRIPS) E11.9. May Branch strip substitute brand preferred by insurance Lancing Yes [id number] Use as Uni vers Device with 9 directed. ity of Lancets 00:00: June (ONE TOUCH 00 substitute Med ical DELICA) Kit brand Branch preferred by insurance Blood-Gluco Yes [id number] Use as [facility] se Meter 929 directed. ity of (ONETOUCH 00:00: June [place] VERIO FLEX 00 substitute Med ical START) Kit brand Branch preferred by insurance blood sugar Yes [id number] Test 4x [facility] diagnostic 9 daily for ity of (ONETOUCH 00:00: diagnosis [place] VERIO TEST 00 code Medical STRIPS) E11.9. May Branch strip substitute brand preferred by insurance Lancing Yes [id number] Use as Uni vers Device with 9 directed. ity of Lancets 00:00: June [place] (ONE TOUCH 00 substitute Med ical DELICA) Kit brand Branch preferred by insurance Blood-Gluco Yes [id number] Use as [facility] se Meter 9 directed. ity of (ONETOUCH 00:00: June [place] VERIO FLEX 00 substitute Med ical START) Kit brand Branch preferred by insurance blood sugar 0 Yes [id number] Test 4x [facility] diagnostic 9 daily for ity of (ONETOUCH 00:00: diagnosis [place] VERIO TEST 00 code Medical STRIPS) E11.9. May Branch strip substitute brand preferred by insurance Lancing Yes [id number] Use as Uni vers Device with 9 directed. ity of Lancets 00:00: June [place] (ONE TOUCH 00 substitute Med ical DELICA) Kit brand Branch preferred by insurance Blood-Gluco Yes [id number] Use as [facility] se Meter 929 directed. ity of (ONETOUCH 00:00: June [place] VERIO FLEX 00 substitute Med ical START) Kit brand Branch preferred by insurance blood sugar 0 Yes [id number] Test 4x [facility] diagnostic 929 daily for ity of (ONETOUCH 00:00: diagnosis [place] VERIO TEST 00 code Medical STRIPS) E11.9. May Branch strip substitute brand preferred by insurance Lancing Yes [id number] Use as Uni vers Device with 9 directed. ity of Lancets 00:00: June [place] (ONE TOUCH 00 substitute Med ical DELICA) Kit brand Branch preferred by insurance Blood-Gluco 0 Yes [id number] Use as [facility] se Meter 9 directed. ity of (ONETOUCH 00:00: June [place] VERIO FLEX 00 substitute Med ical START) Kit brand Branch preferred by insurance blood sugar 0 Yes [id number] Test 4x [facility] diagnostic 9 daily for ity of (ONETOUCH 00:00: diagnosis [place] VERIO TEST 00 code Medical STRIPS) E11.9. May Branch strip substitute brand preferred by insurance Lancing Yes [id number] Use as Uni vers Device with 11-21 directed. ity of Lancets 00:00: June [place] (ONE TOUCH 00 substitute Med ical DELICA) Kit brand Branch preferred by insurance Blood-Gluco Yes [id number] Use as [facility] se Meter 9 directed. ity of (ONETOUCH 00:00: June [place] VERIO FLEX 00 substitute Med ical START) Kit brand Branch preferred by insurance blood sugar Yes [id number] Test 4x [facility] diagnostic 9 daily for ity of (ONETOUCH 00:00: diagnosis [place] VERIO TEST 00 code Medical STRIPS) E11.9. May Branch strip substitute brand preferred by insurance Lancing Yes [id number] Use as Uni vers Device with 9 directed. ity of Lancets 00:00: June [place] (ONE TOUCH 00 substitute Med ical DELICA) Kit brand Branch preferred by insurance Blood-Gluco Yes [id number] Use as [facility] se Meter 9 directed. ity of (ONETOUCH 00:00: June [place] VERIO FLEX 00 substitute Med ical START) Kit brand Branch preferred by insurance blood sugar 0 Yes [id number] Test 4x [facility] diagnostic 9 daily for ity of (ONETOUCH 00:00: diagnosis [place] VERIO TEST 00 code Medical STRIPS) E11.9. May Branch strip substitute brand preferred by insurance Lancing 0 Yes [id number] Use as Uni vers Device with 9 directed. ity of Lancets 00:00: June [place] (ONE TOUCH 00 substitute Med ical DELICA) Kit brand Branch preferred by insurance Blood-Gluco Yes [id number] Use as [facility] se Meter 9 directed. ity of (ONETOUCH 00:00: June VERIO FLEX 00 substitute Med ical START) Kit brand Branch preferred by insurance blood sugar 0 Yes [id number] Test 4x [facility] diagnostic 9 daily for ity of (ONETOUCH 00:00: diagnosis [place] VERIO TEST 00 code Medical STRIPS) E11.9. May Branch strip substitute brand preferred by insurance Lancing Yes [id number] Use as Uni vers Device with 9 directed. ity of Lancets 00:00: June [place] (ONE TOUCH 00 substitute Med ical DELICA) Kit brand Branch preferred by insurance Blood-Gluco Yes [id number] Use as [facility] se Meter 9 directed. ity of (ONETOUCH 00:00: June [place] VERIO FLEX 00 substitute Med ical START) Kit brand Branch preferred by insurance blood sugar 0 Yes [id number] Test 4x [facility] diagnostic 9 daily for ity of (ONETOUCH 00:00: diagnosis [place] VERIO TEST 00 code Medical STRIPS) E11.9. May Branch strip substitute brand preferred by insurance Lancing Yes [id number] Use as Uni vers Device with 9 directed. ity of Lancets 00:00: June [place] (ONE TOUCH 00 substitute Med ical DELICA) Kit brand Branch preferred by insurance Blood-Gluco Yes [id number] Use as [facility] se Meter 9 directed. ity of (ONETOUCH 00:00: June [place] VERIO FLEX 00 substitute Med ical START) Kit brand Branch preferred by insurance blood sugar 0 Yes [id number] Test 4x [facility] diagnostic 9 daily for ity of (ONETOUCH 00:00: diagnosis [place] VERIO TEST 00 code Medical STRIPS) E11.9. May Branch strip substitute brand preferred by insurance Lancing 0 Yes [id number] Use as Uni vers Device with 929 directed. ity of Lancets 00:00: June [place] (ONE TOUCH 00 substitute Med ical DELICA) Kit brand Branch preferred by insurance Blood-Gluco Yes [id number] Use as [facility] se Meter 9-29 directed. ity of (ONETOUCH 00:00: June [place] VERIO FLEX 00 substitute Med ical START) Kit brand Branch preferred by insurance blood sugar Yes [id number] Test 4x [facility] diagnostic 929 daily for ity of (ONETOUCH 00:00: diagnosis [place] VERIO TEST 00 code Medical STRIPS) E11.9. May Branch strip substitute brand preferred by insurance Lancing Yes [id number] Use as Uni vers Device with 9-29 directed. ity of Lancets 00:00: June [place] (ONE TOUCH 00 substitute Med ical DELICA) Kit brand Branch preferred by insurance Blood-Gluco Yes [id number] Use as [facility] se Meter 9-29 directed. ity of (ONETOUCH 00:00: June [place] VERIO FLEX 00 substitute Med ical START) Kit brand Branch preferred by insurance blood sugar Yes [id number] Test 4x [facility] diagnostic 929 daily for ity of (ONETOUCH 00:00: diagnosis [place] VERIO TEST 00 code Medical STRIPS) E11.9. May Branch strip substitute brand preferred by insurance Lancing Yes [id number] Use as Uni vers Device with 9-29 directed. ity of Lancets 00:00: June [place] (ONE TOUCH 00 substitute Med ical DELICA) Kit brand Branch preferred by insurance Blood-Gluco Yes [id number] Use as [facility] se Meter 9-29 directed. ity of (ONETOUCH 00:00: June [place] VERIO FLEX 00 substitute Med ical START) Kit brand Branch preferred by insurance blood sugar Yes [id number] Test 4x [facility] diagnostic 929 daily for ity of (ONETOUCH 00:00: diagnosis [place] VERIO TEST 00 code Medical STRIPS) E11.9. May Branch strip substitute brand preferred by insurance Lancing Yes [id number] Use as Uni vers Device with 9-29 directed. ity of Lancets 00:00: June [place] (ONE TOUCH 00 substitute Med ical DELICA) Kit brand Branch preferred by insurance Blood-Gluco Yes [id number] Use as [facility] se Meter 9-29 directed. ity of (ONETOUCH 00:00: June [place] VERIO FLEX 00 substitute Med ical START) Kit brand Branch preferred by insurance blood sugar Yes [id number] Test 4x [facility] diagnostic 9 daily for ity of (ONETOUCH 00:00: diagnosis [place] VERIO TEST 00 code Medical STRIPS) E11.9. May Branch strip substitute brand preferred by insurance Lancing Yes [id number] Use as Uni vers Device with 11-21 directed. ity of Lancets 00:00: June [place] (ONE TOUCH 00 substitute Med ical DELICA) Kit brand Branch preferred by insurance Blood-Gluco Yes [id number] Use as [facility] se Meter 11-21 directed. ity of (ONETOUCH 00:00: June [place] VERIO FLEX 00 substitute Med ical START) Kit brand Branch preferred by insurance blood sugar Yes [id number] Test 4x [facility] diagnostic 9 daily for ity of (ONETOUCH 00:00: diagnosis [place] VERIO TEST 00 code Medical STRIPS) E11.9. May Branch strip substitute brand preferred by insurance Lancing Yes [id number] Use as Uni vers Device with 11-21 directed. ity of Lancets 00:00: June [place] (ONE TOUCH 00 substitute Med ical DELICA) Kit brand Branch preferred by insurance Blood-Gluco Yes [id number] Use as [facility] se Meter 11-21 directed. ity of (ONETOUCH 00:00: June [place] VERIO FLEX 00 substitute Med ical START) Kit brand Branch preferred by insurance blood sugar Yes [id number] Test 4x [facility] diagnostic 9 daily for ity of (ONETOUCH 00:00: diagnosis [place] VERIO TEST 00 code Medical STRIPS) E11.9. May Branch strip substitute brand preferred by insurance atorvastati Yes [id number] 40mg Take 1 [facility] n 40 mg 9-15 tablet by ity of tablet 00:00: mouth at [place] 00 bedtime. Medical Branch fluticasone Yes [id number] 1{puff} Inhale 1 [facility] propion-duc 9-15 Puff every it y of meteroL 00:00: 12 [place] (ADVAIR 00 (twelve) Medical DISKUS) hours. Branch 250-50 mcg/dose inhalation disk albuterol-i Yes [id number] 1{puff} Inhale 1 [facility] pratropium 9-15 Puff 4 ity of 20-100 00:00: (four) [place] mcg/actuati 00 times Medical on inhaler daily. Branch aspirin 81 0 Yes [id number] 81mg Take 1 [facility] mg chewable 9-15 tablet by ity of tablet 00:00: mouth [place] 00 daily. Medical Branch nitroglycer Yes [id number] .4mg Place 1 [facility] in 9-15 tablet ity of (NITROSTAT) 00:00: under the [place] 0.4 mg 00 tongue Medical sublingual every 5 Branch tablet (five) minutes as needed for Chest pain. atorvastati Yes [id number] 40mg Take 1 [facility] n 40 mg 9-15 tablet by ity of tablet 00:00: mouth at [place] 00 bedtime. Medical Branch fluticasone Yes [id number] 1{puff} Inhale 1 [facility] propion-duc 9-15 Puff every it y of meteroL 00:00: 12 [place] (ADVAIR 00 (twelve) Medical DISKUS) hours. Branch 250-50 mcg/dose inhalation disk albuterol-i Yes [id number] 1{puff} Inhale 1 [facility] pratropium 9-15 Puff 4 ity of 20-100 00:00: (four) [place] mcg/actuati 00 times Medical on inhaler daily. Branch aspirin 81 Yes [id number] 81mg Take 1 [facility] mg chewable 9-15 tablet by ity of tablet 00:00: mouth [place] 00 daily. Medical Branch nitroglycer Yes [id number] .4mg Place 1 [facility] in 9-15 tablet ity of (NITROSTAT) 00:00: under the [place] 0.4 mg 00 tongue Medical sublingual every 5 Branch tablet (five) minutes as needed for Chest pain. atorvastati Yes [id number] 40mg Take 1 [facility] n 40 mg 9-15 tablet by ity of tablet 00:00: mouth at [place] 00 bedtime. Medical Branch fluticasone Yes [id number] 1{puff} Inhale 1 [facility] propion-duc 9-15 Puff every it y of meteroL 00:00: 12 [place] (ADVAIR 00 (twelve) Medical DISKUS) hours. Branch 250-50 mcg/dose inhalation disk albuterol-i Yes [id number] 1{puff} Inhale 1 [facility] pratropium 9-15 Puff 4 ity of 20-100 00:00: (four) [place] mcg/actuati 00 times Medical on inhaler daily. Branch aspirin 81 0 Yes [id number] 81mg Take 1 [facility] mg chewable 9-15 tablet by ity of tablet 00:00: mouth [place] 00 daily. Medical Branch nitroglycer Yes [id number] .4mg Place 1 [facility] in 9-15 tablet ity of (NITROSTAT) 00:00: under the [place] 0.4 mg 00 tongue Medical sublingual every 5 Branch tablet (five) minutes as needed for Chest pain. atorvastati Yes [id number] 40mg Take 1 [facility] n 40 mg 9-15 tablet by ity of tablet 00:00: mouth at [place] 00 bedtime. Medical Branch fluticasone Yes [id number] 1{puff} Inhale 1 [facility] propion-duc 9-15 Puff every it y of meteroL 00:00: 12 [place] (ADVAIR 00 (twelve) Medical DISKUS) hours. Branch 250-50 mcg/dose inhalation disk albuterol-i Yes [id number] 1{puff} Inhale 1 [facility] pratropium 9-15 Puff 4 ity of 20-100 00:00: (four) [place] mcg/actuati 00 times Medical on inhaler daily. Branch aspirin 81 0 Yes [id number] 81mg Take 1 [facility] mg chewable 9-15 tablet by ity of tablet 00:00: mouth [place] 00 daily. Medical Branch nitroglycer Yes [id number] .4mg Place 1 [facility] in 9-15 tablet ity of (NITROSTAT) 00:00: under the [place] 0.4 mg 00 tongue Medical sublingual every 5 Branch tablet (five) minutes as needed for Chest pain. atorvastati Yes [id number] 40mg Take 1 [facility] n 40 mg 9-15 tablet by ity of tablet 00:00: mouth at [place] 00 bedtime. Medical Branch fluticasone Yes [id number] 1{puff} Inhale 1 [facility] propion-duc 9-15 Puff every it y of meteroL 00:00: 12 [place] (ADVAIR 00 (twelve) Medical DISKUS) hours. Branch 250-50 mcg/dose inhalation disk albuterol-i Yes [id number] 1{puff} Inhale 1 [facility] pratropium 9-15 Puff 4 ity of 20-100 00:00: (four) [place] mcg/actuati 00 times Medical on inhaler daily. Branch aspirin 81 0 Yes [id number] 81mg Take 1 [facility] mg chewable 9-15 tablet by ity of tablet 00:00: mouth [place] 00 daily. Medical Branch nitroglycer Yes [id number] .4mg Place 1 [facility] in 9-15 tablet ity of (NITROSTAT) 00:00: under the [place] 0.4 mg 00 tongue Medical sublingual every 5 Branch tablet (five) minutes as needed for Chest pain. atorvastati Yes [id number] 40mg Take 1 [facility] n 40 mg 9-15 tablet by ity of tablet 00:00: mouth at [place] 00 bedtime. Medical Branch fluticasone Yes [id number] 1{puff} Inhale 1 [facility] propion-duc 9-15 Puff every it y of meteroL 00:00: 12 [place] (ADVAIR 00 (twelve) Medical DISKUS) hours. Branch 250-50 mcg/dose inhalation disk albuterol-i Yes [id number] 1{puff} Inhale 1 [facility] pratropium 9-15 Puff 4 ity of 20-100 00:00: (four) [place] mcg/actuati 00 times Medical on inhaler daily. Branch aspirin 81 0 Yes [id number] 81mg Take 1 [facility] mg chewable 9-15 tablet by ity of tablet 00:00: mouth [place] 00 daily. Medical Branch nitroglycer [id number] 1 [facility] in 9-15 tablet ity of (NITROSTAT) 00:00: under the [place] 0.4 mg 00 tongue Medical sublingual every 5 Branch tablet (five) minutes as needed for Chest pain. atorvastati 0 Yes [id number] 40mg Take 1 [facility] n 40 mg 9-15 tablet by ity of tablet 00:00: mouth at [place] 00 bedtime. Medical Branch fluticasone Yes [id number] 1{puff} Inhale 1 [facility] propion-duc 9-15 Puff every it y of meteroL 00:00: 12 [place] (ADVAIR 00 (twelve) Medical DISKUS) hours. Branch 250-50 mcg/dose inhalation disk albuterol-i Yes [id number] 1{puff} Inhale 1 [facility] pratropium 9-15 Puff 4 ity of 20-100 00:00: (four) [place] mcg/actuati 00 times Medical on inhaler daily. Branch aspirin 81 Yes [id number] 81mg Take 1 [facility] mg chewable 9-15 tablet by ity of tablet 00:00: mouth [place] 00 daily. Medical Branch nitroglycer Yes [id number] .4mg Place 1 [facility] in 9-15 tablet ity of (NITROSTAT) 00:00: under the [place] 0.4 mg 00 tongue Medical sublingual every 5 Branch tablet (five) minutes as needed for Chest pain. atorvastati Yes [id number] 40mg Take 1 [facility] n 40 mg 9-15 tablet by ity of tablet 00:00: mouth at [place] 00 bedtime. Medical Branch fluticasone Yes [id number] 1{puff} Inhale 1 [facility] propion-duc 9-15 Puff every it y of meteroL 00:00: 12 [place] (ADVAIR 00 (twelve) Medical DISKUS) hours. Branch 250-50 mcg/dose inhalation disk albuterol-i Yes [id number] 1{puff} Inhale 1 [facility] pratropium 9-15 Puff 4 ity of 20-100 00:00: (four) [place] mcg/actuati 00 times Medical on inhaler daily. Branch aspirin 81 0 Yes [id number] 81mg Take 1 [facility] mg chewable 9-15 tablet by ity of tablet 00:00: mouth [place] 00 daily. Medical Branch nitroglycer Yes [id number] .4mg Place 1 [facility] in 9-15 tablet ity of (NITROSTAT) 00:00: under the [place] 0.4 mg 00 tongue Medical sublingual every 5 Branch tablet (five) minutes as needed for Chest pain. atorvastati Yes [id number] 40mg Take 1 [facility] n 40 mg 9-15 tablet by ity of tablet 00:00: mouth at [place] 00 bedtime. Medical Branch fluticasone Yes [id number] 1{puff} Inhale 1 [facility] propion-duc 9-15 Puff every it y of meteroL 00:00: 12 [place] (ADVAIR 00 (twelve) Medical DISKUS) hours. Branch 250-50 mcg/dose inhalation disk albuterol-i Yes [id number] 1{puff} Inhale 1 [facility] pratropium 9-15 Puff 4 ity of 20-100 00:00: (four) [place] mcg/actuati 00 times Medical on inhaler daily. Branch aspirin 81 Yes [id number] 81mg Take 1 [facility] mg chewable 9-15 tablet by ity of tablet 00:00: mouth [place] 00 daily. Medical Branch nitroglycer Yes [id number] .4mg Place 1 [facility] in 9-15 tablet ity of (NITROSTAT) 00:00: under the [place] 0.4 mg 00 tongue Medical sublingual every 5 Branch tablet (five) minutes as needed for Chest pain. atorvastati Yes [id number] 40mg Take 1 [facility] n 40 mg 9-15 tablet by ity of tablet 00:00: mouth at [place] 00 bedtime. Medical Branch fluticasone Yes [id number] 1{puff} Inhale 1 [facility] propion-duc 9-15 Puff every it y of meteroL 00:00: 12 [place] (ADVAIR 00 (twelve) Medical DISKUS) hours. Branch 250-50 mcg/dose inhalation disk albuterol-i Yes [id number] 1{puff} Inhale 1 [facility] pratropium 9-15 Puff 4 ity of 20-100 00:00: (four) [place] mcg/actuati 00 times Medical on inhaler daily. Branch aspirin 81 0 Yes [id number] 81mg Take 1 [facility] mg chewable 9-15 tablet by ity of tablet 00:00: mouth [place] 00 daily. Medical Branch nitroglycer Yes [id number] .4mg Place 1 [facility] in 9-15 tablet ity of (NITROSTAT) 00:00: under the [place] 0.4 mg 00 tongue Medical sublingual every 5 Branch tablet (five) minutes as needed for Chest pain. atorvastati Yes [id number] 40mg Take 1 [facility] n 40 mg 9-15 tablet by ity of tablet 00:00: mouth at [place] 00 bedtime. Medical Branch fluticasone Yes [id number] 1{puff} Inhale 1 [facility] propion-duc 9-15 Puff every it y of meteroL 00:00: 12 [place] (ADVAIR 00 (twelve) Medical DISKUS) hours. Branch 250-50 mcg/dose inhalation disk albuterol-i Yes [id number] 1{puff} Inhale 1 [facility] pratropium 9-15 Puff 4 ity of 20-100 00:00: (four) [place] mcg/actuati 00 times Medical on inhaler daily. Branch aspirin 81 Yes [id number] 81mg Take 1 [facility] mg chewable 9-15 tablet by ity of tablet 00:00: mouth [place] 00 daily. Medical Branch nitroglycer Yes [id number] .4mg Place 1 [facility] in 9-15 tablet ity of (NITROSTAT) 00:00: under the [place] 0.4 mg 00 tongue Medical sublingual every 5 Branch tablet (five) minutes as needed for Chest pain. atorvastati Yes [id number] 40mg Take 1 [facility] n 40 mg 9-15 tablet by ity of tablet 00:00: mouth at [place] 00 bedtime. Medical Branch fluticasone Yes [id number] 1{puff} Inhale 1 [facility] propion-duc 9-15 Puff every it y of meteroL 00:00: 12 [place] (ADVAIR 00 (twelve) Medical DISKUS) hours. Branch 250-50 mcg/dose inhalation disk albuterol-i Yes [id number] 1{puff} Inhale 1 [facility] pratropium 9-15 Puff 4 ity of 20-100 00:00: (four) [place] mcg/actuati 00 times Medical on inhaler daily. Branch aspirin 81 2021-0 Yes [id number] 81mg Take 1 [facility] mg chewable 9-15 tablet by ity of tablet 00:00: mouth [place] 00 daily. Medical Branch nitroglycer [id number] 1 [facility] in 9-15 tablet ity of (NITROSTAT) 00:00: under the [place] 0.4 mg 00 tongue Medical sublingual every 5 Branch tablet (five) minutes as needed for Chest pain. atorvastati 0 Yes [id number] 40mg Take 1 [facility] n 40 mg 9-15 tablet by ity of tablet 00:00: mouth at [place] 00 bedtime. Medical Branch fluticasone Yes [id number] 1{puff} Inhale 1 [facility] propion-duc 9-15 Puff every it y of meteroL 00:00: 12 [place] (ADVAIR 00 (twelve) Medical DISKUS) hours. Branch 250-50 mcg/dose inhalation disk albuterol-i Yes [id number] 1{puff} Inhale 1 [facility] pratropium 9-15 Puff 4 ity of 20-100 00:00: (four) [place] mcg/actuati 00 times Medical on inhaler daily. Branch aspirin 81 0 Yes [id number] 81mg Take 1 [facility] mg chewable 9-15 tablet by ity of tablet 00:00: mouth [place] 00 daily. Medical Branch nitroglycer Yes [id number] .4mg Place 1 [facility] in 9-15 tablet ity of (NITROSTAT) 00:00: under the [place] 0.4 mg 00 tongue Medical sublingual every 5 Branch tablet (five) minutes as needed for Chest pain. atorvastati Yes [id number] 40mg Take 1 [facility] n 40 mg 9-15 tablet by ity of tablet 00:00: mouth at [place] 00 bedtime. Medical Branch fluticasone 0 Yes [id number] 1{puff} Inhale 1 [facility] propion-duc 9-15 Puff every it y of meteroL 00:00: 12 [place] (ADVAIR 00 (twelve) Medical DISKUS) hours. Branch 250-50 mcg/dose inhalation disk albuterol-i 0 Yes [id number] 1{puff} Inhale 1 [facility] pratropium 9-15 Puff 4 ity of 20-100 00:00: (four) [place] mcg/actuati 00 times Medical on inhaler daily. Branch aspirin 81 0 Yes [id number] 81mg Take 1 [facility] mg chewable 9-15 tablet by ity of tablet 00:00: mouth [place] 00 daily. Medical [facility] nitroglycer [id number] 1 [facility] in 9-15 tablet ity of (NITROSTAT) 00:00: under the [place] 0.4 mg 00 tongue Medical sublingual every 5 Branch tablet (five) minutes as needed for Chest pain. atorvastati Yes [id number] 40mg Take 1 [facility] n 40 mg 9-15 tablet by ity of tablet 00:00: mouth at [place] 00 bedtime. Medical Branch fluticasone 0 Yes [id number] 1{puff} Inhale 1 [facility] propion-duc 9-15 Puff every it y of meteroL 00:00: 12 [place] (ADVAIR 00 (twelve) Medical DISKUS) hours. Branch 250-50 mcg/dose inhalation disk albuterol-i Yes [id number] 1{puff} Inhale 1 [facility] pratropium 9-15 Puff 4 ity of 20-100 00:00: (four) [place] mcg/actuati 00 times Medical on inhaler daily. Branch aspirin 81 0 Yes [id number] 81mg Take 1 [facility] mg chewable 9-15 tablet by ity of tablet 00:00: mouth [place] 00 daily. Medical Branch nitroglycer Yes [id number] .4mg Place 1 [facility] in 9-15 tablet ity of (NITROSTAT) 00:00: under the [place] 0.4 mg 00 tongue Medical sublingual every 5 Branch tablet (five) minutes as needed for Chest pain. atorvastati Yes [id number] 40mg Take 1 [facility] n 40 mg 9-15 tablet by ity of tablet 00:00: mouth at [place] 00 bedtime. Medical Branch fluticasone 0 Yes [id number] 1{puff} Inhale 1 [facility] propion-duc 9-15 Puff every it y of meteroL 00:00: 12 [place] (ADVAIR 00 (twelve) Medical DISKUS) hours. Branch 250-50 mcg/dose inhalation disk albuterol-i Yes [id number] 1{puff} Inhale 1 [facility] pratropium 9-15 Puff 4 ity of 20-100 00:00: (four) [place] mcg/actuati 00 times Medical on inhaler daily. Branch aspirin 81 0 Yes [id number] 81mg Take 1 [facility] mg chewable 9-15 tablet by ity of tablet 00:00: mouth [place] 00 daily. Medical [facility] nitroglycer Yes [id number] .4mg Place 1 [facility] in 9-15 tablet ity of (NITROSTAT) 00:00: under the [place] 0.4 mg 00 tongue Medical sublingual every 5 Branch tablet (five) minutes as needed for Chest pain. atorvastati Yes [id number] 40mg Take 1 [facility] n 40 mg 9-15 tablet by ity of tablet 00:00: mouth at [place] 00 bedtime. Medical Branch fluticasone Yes [id number] 1{puff} Inhale 1 [facility] propion-duc 9-15 Puff every it y of meteroL 00:00: 12 [place] (ADVAIR 00 (twelve) Medical DISKUS) hours. Branch 250-50 mcg/dose inhalation disk albuterol-i Yes [id number] 1{puff} Inhale 1 [facility] pratropium 9-15 Puff 4 ity of 20-100 00:00: (four) [place] mcg/actuati 00 times Medical on inhaler daily. Branch aspirin 81 Yes [id number] 81mg Take 1 [facility] n[facility] mg chewable 9-15 tablet by ity of tablet 00:00: mouth [place] 00 daily. Medical Branch nitroglycer Yes [id number] .4mg Place 1 [facility] in 9-15 tablet ity of (NITROSTAT) 00:00: under the [place] 0.4 mg 00 tongue Medical sublingual every 5 Branch tablet (five) minutes as needed for Chest pain. atorvastati Yes [id number] 40mg Take 1 [facility] n 40 mg 9-15 tablet by ity of tablet 00:00: mouth at [place] 00 bedtime. Medical [facility] fluticasone Yes [id number] 1{puff} Inhale 1 [facility] propion-duc 9-15 Puff every it y of meteroL 00:00: 12 [place] (ADVAIR 00 (twelve) Medical DISKUS) hours. Branch 250-50 mcg/dose inhalation disk albuterol-i Yes [id number] 1{puff} Inhale 1 [facility] pratropium 9-15 Puff 4 ity of 20-100 00:00: (four) [place] mcg/actuati 00 times Medical on inhaler daily. Branch aspirin 81 0 Yes [id number] 81mg Take 1 [facility] n[facility] mg chewable 9-15 tablet by ity of tablet 00:00: mouth [place] 00 daily. Medical [facility] nitroglycer [id number] 1 [facility] in 9-15 tablet ity of (NITROSTAT) 00:00: under the [place] 0.4 mg 00 tongue Medical sublingual every 5 Branch tablet (five) minutes as needed for Chest pain. atorvastati Yes [id number] 40mg Take 1 [facility] n 40 mg 9-15 tablet by ity of tablet 00:00: mouth at [place] 00 bedtime. Medical Branch fluticasone 0 Yes [id number] 1{puff} Inhale 1 [facility] propion-duc 9-15 Puff every it y of meteroL 00:00: 12 [place] (ADVAIR 00 (twelve) Medical DISKUS) hours. Branch 250-50 mcg/dose inhalation disk albuterol-i Yes [id number] 1{puff} Inhale 1 [facility] pratropium 9-15 Puff 4 ity of 20-100 00:00: (four) [place] mcg/actuati 00 times Medical on inhaler daily. Branch aspirin 81 0 Yes [id number] 81mg Take 1 [facility] n[facility] mg chewable 9-15 tablet by ity of tablet 00:00: mouth [place] 00 daily. Medical Branch nitroglycer 2020-[id number] 1 [facility] in 9-15 tablet ity of (NITROSTAT) 00:00: under the [place] 0.4 mg 00 tongue Medical sublingual every 5 Branch tablet (five) minutes as needed for Chest pain. atorvastati 2020-0 Yes [id number] 40mg Take 1 [facility] n 40 mg 9-15 tablet by ity of tablet 00:00: mouth at [place] 00 bedtime. Medical Branch fluticasone Yes [id number] 1{puff} Inhale 1 [facility] propion-duc 9-15 Puff every it y of meteroL 00:00: 12 [place] (ADVAIR 00 (twelve) Medical DISKUS) hours. Branch 250-50 mcg/dose inhalation disk albuterol-i Yes [id number] 1{puff} Inhale 1 [facility] pratropium 9-15 Puff 4 ity of 20-100 00:00: (four) [place] mcg/actuati 00 times Medical on inhaler daily. Branch aspirin 81 Yes [id number] 81mg Take 1 [facility] mg chewable 9-15 tablet by ity of tablet 00:00: mouth [place] 00 daily. Medical [facility] nitroglycer Yes [id number] .4mg Place 1 [facility] in 9-15 tablet ity of (NITROSTAT) 00:00: under the [place] 0.4 mg 00 tongue Medical sublingual every 5 Branch tablet (five) minutes as needed for Chest pain. atorvastati Yes [id number] 40mg Take 1 [facility] n 40 mg 9-15 tablet by ity of tablet 00:00: mouth at [place] 00 bedtime. Medical Branch escitalopra Yes [id number] 10mg Take 1 [facility] m oxalate 9-15 tablet by ity o f 10 mg 00:00: mouth [place] tablet 00 daily. Medical Branch fluticasone Yes [id number] 1{puff} Inhale 1 [facility] propion-duc 9-15 Puff every it y of meteroL 00:00: 12 [place] (ADVAIR 00 (twelve) Medical DISKUS) hours. Branch 250-50 mcg/dose inhalation disk albuterol-i Yes [id number] 1{puff} Inhale 1 [facility] pratropium 9-15 Puff 4 ity of 20-100 00:00: (four) [place] mcg/actuati 00 times Medical on inhaler daily. Branch aspirin 81 0 Yes [id number] 81mg Take 1 [facility] mg chewable 9-15 tablet by ity of tablet 00:00: mouth [place] 00 daily. Medical Branch nitroglycer Yes [id number] .4mg Place 1 [facility] in 9-15 tablet ity of (NITROSTAT) 00:00: under the [place] 0.4 mg 00 tongue Medical sublingual every 5 Branch tablet (five) minutes as needed for Chest pain. atorvastati Yes [id number] 40mg Take 1 [facility] n 40 mg 9-15 tablet by ity of tablet 00:00: mouth at [place] 00 bedtime. Medical Branch escitalopra Yes [id number] 10mg Take 1 [facility] m oxalate 9-15 tablet by ity o f 10 mg 00:00: mouth [place] tablet 00 daily. Medical Branch fluticasone Yes [id number] 1{puff} Inhale 1 [facility] propion-duc 9-15 Puff every it y of meteroL 00:00: 12 [place] (ADVAIR 00 (twelve) Medical DISKUS) hours. Branch 250-50 mcg/dose inhalation disk albuterol-i Yes [id number] 1{puff} Inhale 1 [facility] pratropium 9-15 Puff 4 ity of 20-100 00:00: (four) [place] mcg/actuati 00 times Medical on inhaler daily. Branch aspirin 81 Yes [id number] 81mg Take 1 [facility] mg chewable 9-15 tablet by ity of tablet 00:00: mouth [place] 00 daily. Medical Branch nitroglycer Yes [id number] .4mg Place 1 [facility] in 9-15 tablet ity of (NITROSTAT) 00:00: under the [place] 0.4 mg 00 tongue Medical sublingual every 5 Branch tablet (five) minutes as needed for Chest pain. atorvastati Yes [id number] 40mg Take 1 [facility] n 40 mg 9-15 tablet by ity of tablet 00:00: mouth at [place] 00 bedtime. Medical Branch escitalopra Yes [id number] 10mg Take 1 [facility] m oxalate 9-15 tablet by ity o f 10 mg 00:00: mouth [place] tablet 00 daily. Medical Branch fluticasone Yes [id number] 1{puff} Inhale 1 [facility] propion-duc 9-15 Puff every it y of meteroL 00:00: 12 [place] (ADVAIR 00 (twelve) Medical DISKUS) hours. Branch 250-50 mcg/dose inhalation disk albuterol-i Yes [id number] 1{puff} Inhale 1 [facility] pratropium 9-15 Puff 4 ity of 20-100 00:00: (four) [place] mcg/actuati 00 times Medical on inhaler daily. Branch aspirin 81 0 Yes [id number] 81mg Take 1 [facility] mg chewable 9-15 tablet by ity of tablet 00:00: mouth [place] 00 daily. Medical Branch nitroglycer Yes [id number] .4mg Place 1 [facility] in 9-15 tablet ity of (NITROSTAT) 00:00: under the [place] 0.4 mg 00 tongue Medical sublingual every 5 Branch tablet (five) minutes as needed for Chest pain. atorvastati Yes [id number] 40mg Take 1 [facility] n 40 mg 9-15 tablet by ity of tablet 00:00: mouth at [place] 00 bedtime. Medical Branch escitalopra Yes [id number] 10mg Take 1 [facility] m oxalate 9-15 tablet by ity o f 10 mg 00:00: mouth [place] tablet 00 daily. Medical Branch fluticasone Yes [id number] 1{puff} Inhale 1 [facility] propion-duc 9-15 Puff every it y of meteroL 00:00: 12 [place] (ADVAIR 00 (twelve) Medical DISKUS) hours. Branch 250-50 mcg/dose inhalation disk albuterol-i Yes [id number] 1{puff} Inhale 1 [facility] pratropium 9-15 Puff 4 ity of 20-100 00:00: (four) [place] mcg/actuati 00 times Medical on inhaler daily. Branch aspirin 81 Yes [id number] 81mg Take 1 [facility] mg chewable 9-15 tablet by ity of tablet 00:00: mouth [place] 00 daily. Medical Branch nitroglycer Yes [id number] .4mg Place 1 [facility] in 9-15 tablet ity of (NITROSTAT) 00:00: under the [place] 0.4 mg 00 tongue Medical sublingual every 5 Branch tablet (five) minutes as needed for Chest pain. atorvastati Yes [id number] 40mg Take 1 [facility] n 40 mg 9-15 tablet by ity of tablet 00:00: mouth at [place] 00 bedtime. Medical Branch escitalopra Yes [id number] 10mg Take 1 [facility] m oxalate 9-15 tablet by ity o f 10 mg 00:00: mouth [place] tablet 00 daily. Medical Branch fluticasone Yes [id number] 1{puff} Inhale 1 [facility] propion-duc 9-15 Puff every it y of meteroL 00:00: 12 [place] (ADVAIR 00 (twelve) Medical DISKUS) hours. Branch 250-50 mcg/dose inhalation disk albuterol-i Yes [id number] 1{puff} Inhale 1 [facility] pratropium 9-15 Puff 4 ity of 20-100 00:00: (four) [place] mcg/actuati 00 times Medical on inhaler daily. Branch aspirin 81 Yes [id number] 81mg Take 1 [facility] mg chewable 9-15 tablet by ity of tablet 00:00: mouth [place] 00 daily. Medical Branch nitroglycer Yes [id number] .4mg Place 1 [facility] in 9-15 tablet ity of (NITROSTAT) 00:00: under the [place] 0.4 mg 00 tongue Medical sublingual every 5 Branch tablet (five) minutes as needed for Chest pain. atorvastati Yes [id number] 40mg Take 1 [facility] n 40 mg 9-15 tablet by ity of tablet 00:00: mouth at [place] 00 bedtime. Medical Branch escitalopra Yes [id number] 10mg Take 1 [facility] m oxalate 9-15 tablet by ity o f 10 mg 00:00: mouth [place] tablet 00 daily. Medical Branch fluticasone Yes [id number] 1{puff} Inhale 1 [facility] propion-duc 9-15 Puff every it y of meteroL 00:00: 12 [place] (ADVAIR 00 (twelve) Medical DISKUS) hours. Branch 250-50 mcg/dose inhalation disk albuterol-i Yes [id number] 1{puff} Inhale 1 [facility] pratropium 9-15 Puff 4 ity of 20-100 00:00: (four) [place] mcg/actuati 00 times Medical on inhaler daily. Branch aspirin 81 Yes [id number] 81mg Take 1 [facility] mg chewable 9-15 tablet by ity of tablet 00:00: mouth [place] 00 daily. Medical Branch nitroglycer Yes [id number] .4mg Place 1 [facility] in 9-15 tablet ity of (NITROSTAT) 00:00: under the [place] 0.4 mg 00 tongue Medical sublingual every 5 Branch tablet (five) minutes as needed for Chest pain. escitalopra 2021- No [id number] 10mg Take 1 [facility] m oxalate 9-15 11-18 tablet by ity of 10 mg 00:00: 00:00 mouth [place] tablet 00 :00 daily. Medical Branch BD MATIAS Yes [id number] INJECT [facility] GEN PEN 3-21 UNDER THE ity of NEEDLE 32 00:00: SKIN THREE [place] gauge x 00 TIMES Medical 5/32" Ndle DAILY Branch BD MATIAS Yes [id number] INJECT [facility] GEN PEN 3-21 UNDER THE ity of NEEDLE 32 00:00: SKIN THREE [place] gauge x 00 TIMES Medical 5/32" Ndle DAILY Branch BD MATIAS Yes [id number] INJECT [facility] GEN PEN 3-21 UNDER THE ity of NEEDLE 32 00:00: SKIN THREE [place] gauge x 00 TIMES Medical 5/32" Ndle DAILY Branch BD MATIAS Yes [id number] INJECT [facility] GEN PEN 3-21 UNDER THE ity of NEEDLE 32 00:00: SKIN THREE [place] gauge x 00 TIMES Medical 5/32" Ndle DAILY Branch BD MATIAS Yes [id number] INJECT [facility] GEN PEN 3-21 UNDER THE ity of NEEDLE 32 00:00: SKIN THREE [place] gauge x 00 TIMES Medical 5/32" Ndle DAILY Branch BD MATIAS Yes [id number] INJECT [facility] GEN PEN 3-21 UNDER THE ity of NEEDLE 32 00:00: SKIN THREE [place] gauge x 00 TIMES Medical 5/32" Ndle DAILY Branch BD MATIAS Yes [id number] INJECT [facility] GEN PEN 3-21 UNDER THE ity of NEEDLE 32 00:00: SKIN THREE [place] gauge x 00 TIMES Medical 5/32" Ndle DAILY Branch BD MATIAS Yes [id number] INJECT [facility] GEN PEN 3-21 UNDER THE ity of NEEDLE 32 00:00: SKIN THREE [place] gauge x 00 TIMES Medical " Ndle DAILY Branch BD MATIAS Yes [id number] INJECT [facility] GEN PEN 3-21 UNDER THE ity of NEEDLE 32 00:00: SKIN THREE [place] gauge x 00 TIMES Medical " Ndle DAILY Branch BD MATIAS Yes [id number] INJECT [facility] GEN PEN 3-21 UNDER THE ity of NEEDLE 32 00:00: SKIN THREE [place] gauge x 00 TIMES Medical " Ndle DAILY Branch BD MATIAS Yes [id number] INJECT [facility] GEN PEN 3-21 UNDER THE ity of NEEDLE 32 00:00: SKIN THREE [place] gauge x 00 TIMES Medical " Ndle DAILY Branch BD MATIAS Yes [id number] INJECT [facility] GEN PEN 3-21 UNDER THE ity of NEEDLE 32 00:00: SKIN THREE [place] gauge x 00 TIMES Medical " Ndle DAILY Branch BD MATIAS Yes [id number] INJECT [facility] GEN PEN 3-21 UNDER THE ity of NEEDLE 32 00:00: SKIN THREE [place] gauge x 00 TIMES Medical " Ndle DAILY Branch BD MATIAS Yes [id number] INJECT [facility] GEN PEN 3-21 UNDER THE ity of NEEDLE 32 00:00: SKIN THREE [place] gauge x 00 TIMES Medical " Ndle DAILY Branch BD MATIAS Yes [id number] INJECT [facility] GEN PEN 3-21 UNDER THE ity of NEEDLE 32 00:00: SKIN THREE [place] gauge x 00 TIMES Medical " Ndle DAILY Branch BD MATIAS Yes [id number] INJECT [facility] GEN PEN 3-21 UNDER THE ity of NEEDLE 32 00:00: SKIN THREE [place] gauge x 00 TIMES Medical " Ndle DAILY Branch BD MATIAS Yes [id number] INJECT [facility] GEN PEN 3-21 UNDER THE ity of NEEDLE 32 00:00: SKIN THREE [place] gauge x 00 TIMES Medical " Ndle DAILY Branch BD MATIAS 2ND 2021- No [id number] INJECT [facility] GEN PEN 3-21 12-15 UNDER THE ity of NEEDLE 32 00:00: 00:00 SKIN THREE [place] gauge x 00 :00 TIMES Medical " Ndle DAILY Branch blood sugar 202-0 Yes [id number] 3 Un jb diagnostic 2-05 times/day ity of (ONETOUCH 00:00: [place] VERIO TEST 00 Medical STRIPS) Branch strip fluticasone 202-0 Yes [id number] 2{spray Use 2 [facility] propionate 2-05 } Sprays in ity of 50 00:00: each [place] mcg/actuati 00 nostril Medic al on nasal daily. Branch spray blood sugar 2020-0 Yes [id number] 3 Un jb diagnostic 2-05 times/day ity of (ONETOUCH 00:00: [place] VERIO TEST 00 Medical STRIPS) Branch strip fluticasone 2021-0 Yes [id number] 2{spray Use 2 [facility] propionate 2-05 } Sprays in ity of 50 00:00: each [place] mcg/actuati 00 nostril Medic al on nasal daily. Branch spray blood sugar 2020-0 Yes [id number] 3 Un jb diagnostic 2-05 times/day ity of (ONETOUCH 00:00: [place] VERIO TEST 00 Medical STRIPS) Branch strip fluticasone 2020-0 Yes [id number] 2{spray Use 2 [facility] propionate 2-05 } Sprays in ity of 50 00:00: each [place] mcg/actuati 00 nostril Medic al on nasal daily. Branch spray blood sugar 2020-0 Yes [id number] 3 Un jb diagnostic 2-05 times/day ity of (ONETOUCH 00:00: [place] VERIO TEST 00 Medical STRIPS) Branch strip fluticasone 2021-0 Yes [id number] 2{spray Use 2 [facility] propionate 2-05 } Sprays in ity of 50 00:00: each [place] mcg/actuati 00 nostril Medic al on nasal daily. Branch spray blood sugar 2020-0 Yes [id number] 3 Un jb diagnostic 2-05 times/day ity of (ONETOUCH 00:00: [place] VERIO TEST 00 Medical STRIPS) Branch strip fluticasone 2021-0 Yes [id number] 2{spray Use 2 [facility] propionate 2-05 } Sprays in ity of 50 00:00: each [place] mcg/actuati 00 nostril Medic al on nasal daily. Branch spray blood sugar 2020-0 Yes [id number] 3 Un jb diagnostic 2-05 times/day ity of (ONETOUCH 00:00: [place] VERIO TEST 00 Medical STRIPS) Branch strip fluticasone 2021-0 Yes [id number] 2{spray Use 2 [facility] propionate 2-05 } Sprays in ity of 50 00:00: each [place] mcg/actuati 00 nostril Medic al on nasal daily. Branch spray blood sugar 2020-0 Yes [id number] 3 Un jb diagnostic 2-05 times/day ity of (ONETOUCH 00:00: [place] VERIO TEST 00 Medical STRIPS) Branch strip fluticasone 2021-0 Yes [id number] 2{spray Use 2 [facility] propionate 2-05 } Sprays in ity of 50 00:00: each [place] mcg/actuati 00 nostril Medic al on nasal daily. Branch spray blood sugar 2020-0 Yes [id number] 3 Un jb diagnostic 2-05 times/day ity of (ONETOUCH 00:00: [place] VERIO TEST 00 Medical STRIPS) Branch strip fluticasone 2021-0 Yes [id number] 2{spray Use 2 [facility] propionate 2-05 } Sprays in ity of 50 00:00: each [place] mcg/actuati 00 nostril Medic al on nasal daily. Branch spray blood sugar 2020-0 Yes [id number] 3 Un jb diagnostic 2-05 times/day ity of (ONETOUCH 00:00: [place] VERIO TEST 00 Medical STRIPS) Branch strip fluticasone 1-0 Yes [id number] 2{spray Use 2 [facility] propionate 2-05 } Sprays in ity of 50 00:00: each [place] mcg/actuati 00 nostril Medic al on nasal daily. Branch spray blood sugar 2020-0 Yes [id number] 3 Un jb diagnostic 2-05 times/day ity of (ONETOUCH 00:00: [place] VERIO TEST 00 Medical STRIPS) Branch strip fluticasone 2021-0 Yes [id number] 2{spray Use 2 [facility] propionate 2-05 } Sprays in ity of 50 00:00: each [place] mcg/actuati 00 nostril Medic al on nasal daily. Branch spray blood sugar 1-0 Yes [id number] 3 Un jb diagnostic 2-05 times/day ity of (ONETOUCH 00:00: [place] VERIO TEST 00 Medical STRIPS) Branch strip fluticasone 2021-0 Yes [id number] 2{spray Use 2 [facility] propionate 2-05 } Sprays in ity of 50 00:00: each [place] mcg/actuati 00 nostril Medic al on nasal daily. Branch spray blood sugar 2020-0 Yes [id number] 3 Un jb diagnostic 2-05 times/day ity of (ONETOUCH 00:00: [place] VERIO TEST 00 Medical STRIPS) Branch strip fluticasone 2020-0 Yes [id number] 2{spray Use 2 [facility] propionate 2-05 } Sprays in ity of 50 00:00: each [place] mcg/actuati 00 nostril Medic al on nasal daily. Branch spray blood sugar 2020-0 Yes [id number] 3 Un jb diagnostic 2-05 times/day ity of (ONETOUCH 00:00: [place] VERIO TEST 00 Medical STRIPS) Branch strip fluticasone 2020-0 Yes [id number] 2{spray Use 2 [facility] propionate 2-05 } Sprays in ity of 50 00:00: each [place] mcg/actuati 00 nostril Medic al on nasal daily. Branch spray blood sugar 2020-0 Yes [id number] 3 Un jb diagnostic 2-05 times/day ity of (ONETOUCH 00:00: [place] VERIO TEST 00 Medical STRIPS) Branch strip fluticasone 2020-0 Yes [id number] 2{spray Use 2 [facility] propionate 2-05 } Sprays in ity of 50 00:00: each [place] mcg/actuati 00 nostril Medic al on nasal daily. Branch spray blood sugar 2020-0 Yes [id number] 3 Un jb diagnostic 2-05 times/day ity of (ONETOUCH 00:00: [place] VERIO TEST 00 Medical STRIPS) Branch strip fluticasone 2020-0 Yes [id number] 2{spray Use 2 [facility] propionate 2-05 } Sprays in ity of 50 00:00: each [place] mcg/actuati 00 nostril Medic al on nasal daily. Branch spray blood sugar 2020-0 Yes [id number] 3 Un jb diagnostic 2-05 times/day ity of (ONETOUCH 00:00: [place] VERIO TEST 00 Medical STRIPS) Branch strip fluticasone 2021-0 Yes [id number] 2{spray Use 2 [facility] propionate 2-05 } Sprays in ity of 50 00:00: each [place] mcg/actuati 00 nostril Medic al on nasal daily. Branch spray blood sugar 2020-0 Yes [id number] 3 Un jb diagnostic 2-05 times/day ity of (ONETOUCH 00:00: [place] VERIO TEST 00 Medical STRIPS) Branch strip fluticasone 2020-0 Yes [id number] 2{spray Use 2 [facility] propionate 2-05 } Sprays in ity of 50 00:00: each [place] mcg/actuati 00 nostril Medic al on nasal daily. Branch spray blood sugar 2020-0 Yes [id number] 3 Un jb diagnostic 2-05 times/day ity of (ONETOUCH 00:00: [place] VERIO TEST 00 Medical STRIPS) Branch strip fluticasone 2020-0 Yes [id number] 2{spray Use 2 [facility] propionate 2-05 } Sprays in ity of 50 00:00: each [place] mcg/actuati 00 nostril Medic al on nasal daily. Branch spray blood sugar 2020-0 Yes [id number] 3 Un jb diagnostic 2-05 times/day ity of (ONETOUCH 00:00: [place] VERIO TEST 00 Medical STRIPS) Branch strip fluticasone 2020-0 Yes [id number] 2{spray Use 2 [facility] propionate 2-05 } Sprays in ity of 50 00:00: each [place] mcg/actuati 00 nostril Medic al on nasal daily. Branch spray blood sugar 2020-0 Yes [id number] 3 Un jb diagnostic 2-05 times/day ity of (ONETOUCH 00:00: [place] VERIO TEST 00 Medical STRIPS) Branch strip fluticasone 2020-0 Yes [id number] 2{spray Use 2 [facility] propionate 2-05 } Sprays in ity of 50 00:00: each [place] mcg/actuati 00 nostril Medic al on nasal daily. Branch spray blood sugar 2020-0 Yes [id number] 3 Un jb diagnostic 2-05 times/day ity of (ONETOUCH 00:00: [place] VERIO TEST 00 Medical STRIPS) Branch strip fluticasone 2021-0 Yes [id number] 2{spray Use 2 [facility] propionate 2-05 } Sprays in ity of 50 00:00: each [place] mcg/actuati 00 nostril Medic al on nasal daily. Branch spray blood sugar 2020-0 Yes [id number] 3 Un jb diagnostic 2-05 times/day ity of (ONETOUCH 00:00: [place] VERIO TEST 00 Medical STRIPS) Branch strip fluticasone 2020-0 Yes [id number] 2{spray Use 2 [facility] propionate 2-05 } Sprays in ity of 50 00:00: each [place] mcg/actuati 00 nostril Medic al on nasal daily. Branch spray blood sugar 2020-0 Yes [id number] 3 Un jb diagnostic 2-05 times/day ity of (ONETOUCH 00:00: [place] VERIO TEST 00 Medical STRIPS) Branch strip fluticasone 2020-0 Yes [id number] 2{spray Use 2 [facility] propionate 2-05 } Sprays in ity of 50 00:00: each [place] mcg/actuati 00 nostril Medic al on nasal daily. Branch spray blood sugar 2020-0 Yes [id number] 3 Un jb diagnostic 2-05 times/day ity of (ONETOUCH 00:00: [place] VERIO TEST 00 Medical STRIPS) Branch strip fluticasone 2020-0 Yes [id number] 2{spray Use 2 [facility] propionate 2-05 } Sprays in ity of 50 00:00: each [place] mcg/actuati 00 nostril Medic al on nasal daily. Branch spray blood sugar 2020-0 Yes [id number] 3 Un jb diagnostic 2-05 times/day ity of (ONETOUCH 00:00: [place] VERIO TEST 00 Medical STRIPS) Branch strip fluticasone 2020-0 Yes [id number] 2{spray Use 2 [facility] propionate 2-05 } Sprays in ity of 50 00:00: each [place] mcg/actuati 00 nostril Medic al on nasal daily. Branch spray blood sugar 2020-0 Yes [id number] 3 Un jb diagnostic 2-05 times/day ity of (ONETOUCH 00:00: [place] VERIO TEST 00 Medical STRIPS) Branch strip fluticasone 2020-0 Yes [id number] 2{spray Use 2 [facility] propionate 2-05 } Sprays in ity of 50 00:00: each [place] mcg/actuati 00 nostril Medic al on nasal daily. Branch spray Insulin 2019- Yes [id number] Before [facility] [place], 1-11 meals, dx ity of Disposable, 00:00: code E11.9 [place] 31 gauge x 00 Pen needle Med ical 1/4" Ndle humalog Branch quick pen Insulin 2019- Yes [id number] Before [facility] [place], 1-11 meals, dx ity of Disposable, 00:00: code E11.9 [place] 31 gauge x 00 Pen needle Med ical 1/4" Ndle humalog Branch quick pen Insulin 2019- Yes [id number] Before [facility] [place], 1-11 meals, dx ity of Disposable, 00:00: code E11.9 [place] 31 gauge x 00 Pen needle Med ical 1/4" Ndle humalog Branch quick pen Insulin 2019- Yes [id number] Before [facility] [place], 1-11 meals, dx ity of Disposable, 00:00: code E11.9 [place] 31 gauge x 00 Pen needle Med ical 1/4" Ndle humalog Branch quick pen Insulin 2019- Yes [id number] Before [facility] [place], 1-11 meals, dx ity of Disposable, 00:00: code E11.9 [place] 31 gauge x 00 Pen needle Med ical 1/4" Ndle humalog Branch quick pen Insulin 2019-1 Yes [id number] Before [facility] [place], 1-11 meals, dx ity of Disposable, 00:00: code E11.9 [place] 31 gauge x 00 Pen needle Med ical 1/4" Ndle humalog Branch quick pen Insulin 2019- Yes [id number] Before [facility] [place], 1-11 meals, dx ity of Disposable, 00:00: code E11.9 [place] 31 gauge x 00 Pen needle Med ical 1/4" [facility] quick pen Insulin 2019- Yes [id number] Before [facility] [place], 1-11 meals, dx ity of Disposable, 00:00: code E11.9 [place] 31 gauge x 00 Pen needle Med ical 1/4" [facility] quick pen Insulin 2019- Yes [id number] Before [facility] [place], 1-11 meals, dx ity of Disposable, 00:00: code E11.9 [place] 31 gauge x 00 Pen needle Med ical 1/4" [facility] quick pen Insulin 2019- Yes [id number] Before [facility] [place], 1-11 meals, dx ity of Disposable, 00:00: code E11.9 [place] 31 gauge x 00 Pen needle Med ical 1/4" [facility] quick pen Insulin 2019- Yes [id number] Before [facility] [place], 1-11 meals, dx ity of Disposable, 00:00: code E11.9 [place] 31 gauge x 00 Pen needle Med ical 1/4" [facility] quick pen Insulin 2019- Yes [id number] Before [facility] [place], 1-11 meals, dx ity of Disposable, 00:00: code E11.9 [place] 31 gauge x 00 Pen needle Med ical 1/4" [facility] quick pen Insulin 2019- Yes [id number] Before [facility] [place], 1-11 meals, dx ity of Disposable, 00:00: code E11.9 [place] 31 gauge x 00 Pen needle Med ical 1/4" [facility] quick pen Insulin 2019- Yes [id number] Before [facility] [place], 1-11 meals, dx ity of Disposable, 00:00: code E11.9 [place] 31 gauge x 00 Pen needle Med ical 1/4" [facility] quick pen Insulin 2018- Yes [id number] Before [facility] [place], 1-11 meals, dx ity of Disposable, 00:00: code E11.9 [place] 31 gauge x 00 Pen needle Med ical 1/4" [facility] quick pen Insulin 2019- Yes [id number] Before [facility] [place], 1-11 meals, dx ity of Disposable, 00:00: code E11.9 [place] 31 gauge x 00 Pen needle Med ical 1/4" [facility] [place] [facility] quick pen Insulin 2019- Yes [id number] Before [facility] [place], 1-11 meals, dx ity of Disposable, 00:00: code E11.9 [place] 31 gauge x 00 Pen needle Med ical 1/4" [facility] quick pen Insulin 2018-2021- No [id number] Before [facility] [place], 1-11 12-15 meals, dx ity o f Disposable, 00:00: 00:00 code E11.9 [place] 31 gauge x 00 :00 Pen needle Med ical 1/4" [facility] quick pen COLCRYS 0.6 2019-0 Yes [id number] .6mg TAKE 1 [facility] mg tablet 2-19 TABLET BY ity o f 00:00: MOUTH [place] 00 DAILY [facility] COLCRYS 0.6 2019-0 Yes [id number] .6mg TAKE 1 [facility] mg tablet 2-19 TABLET BY ity o f 00:00: MOUTH 00 DAILY [facility] COLCRYS 0.6 2019-0 Yes [id number] .6mg TAKE 1 [facility] mg tablet 2-19 TABLET BY ity o f 00:00: MOUTH 00 DAILY [facility] COLCRYS 0.6 2019-0 Yes [id number] .6mg TAKE 1 [facility] mg tablet 2-19 TABLET BY ity o f 00:00: MOUTH DAILY [facility] COLCRYS 0.6 2019-0 Yes [id number] .6mg TAKE 1 [facility] mg tablet 2-19 TABLET BY ity o f 00:00: MOUTH DAILY [facility] COLCRYS 0.6 2019-0 Yes [id number] .6mg TAKE 1 [facility] mg tablet 2-19 TABLET BY ity o f 00:00: MOUTH DAILY [facility] COLCRYS 0.6 2019-0 Yes [id number] .6mg TAKE 1 [facility] mg tablet 2-19 TABLET BY ity o f 00:00: DAILY [facility] COLCRYS 0.6 2019-0 Yes [id number] .6mg TAKE 1 [facility] mg tablet 2-19 TABLET BY ity o f 00:00: MOUTH DAILY [facility] COLCRYS 0.6 2019-0 Yes [id number] .6mg TAKE 1 [facility] mg tablet 2-19 TABLET BY ity o f 00:00: MOUTH DAILY [facility] COLCRYS 0.6 2019-0 Yes [id number] .6mg TAKE 1 [facility] mg tablet 2-19 TABLET BY ity o f 00:00: MOUTH DAILY [facility] COLCRYS 0.6 2019-0 Yes [id number] .6mg TAKE 1 [facility] mg tablet 2-19 TABLET BY ity o f 00:00: MOUTH DAILY [facility] COLCRYS 0.6 2019-0 Yes [id number] .6mg TAKE 1 [facility] mg tablet 2-19 TABLET BY ity o f 00:00: MOUTH DAILY [facility] COLCRYS 0.6 2019-0 Yes [id number] .6mg TAKE 1 [facility] mg tablet 2-19 TABLET BY ity o f 00:00: MOUTH DAILY [facility] COLCRYS 0.6 2019-0 Yes [id number] .6mg TAKE 1 [facility] mg tablet 2-19 TABLET BY ity o f 00:00: MOUTH DAILY [facility] COLCRYS 0.6 2019-0 Yes [id number] .6mg TAKE 1 [facility] mg tablet 2-19 TABLET BY ity o f 00:00: MOUTH [place] 00 DAILY [facility] COLCRYS 0.6 2019-0 Yes [id number] .6mg TAKE 1 [facility] mg tablet 2-19 TABLET BY ity o f 00:00: MOUTH 00 DAILY [facility] COLCRYS 0.6 2019-0 Yes [id number] .6mg TAKE 1 [facility] mg tablet 2-19 TABLET BY ity o f 00:00: MOUTH [place] 00 DAILY [facility] COLCRYS 0.6 2019-0 Yes [id number] .6mg TAKE 1 [facility] mg tablet 2-19 TABLET BY ity o f 00:00: MOUTH 00 DAILY [facility] COLCRYS 0.6 2019-0 Yes [id number] .6mg TAKE 1 [facility] mg tablet 2-19 TABLET BY ity o f 00:00: MOUTH 00 DAILY [facility] COLCRYS 0.6 2019-0 Yes [id number] .6mg TAKE 1 [facility] mg tablet 2-19 TABLET BY ity o f 00:00: MOUTH 00 DAILY [facility] COLCRYS 0.6 2019-0 Yes [id number] .6mg TAKE 1 [facility] mg tablet 2-19 TABLET BY ity o f 00:00: MOUTH 00 DAILY [facility] COLCRYS 0.6 2019-0 Yes [id number] .6mg TAKE 1 [facility] mg tablet 2-19 TABLET BY ity o f 00:00: MOUTH DAILY [facility] COLCRYS 0.6 2019-0 Yes [id number] .6mg TAKE 1 [facility] mg tablet 2-19 TABLET BY ity o f 00:00: MOUTH 00 DAILY [facility] COLCRYS 0.6 2019-0 Yes [id number] .6mg TAKE 1 [facility] mg tablet 2-19 TABLET BY ity o f 00:00: MOUTH [place] 00 DAILY [facility] COLCRYS 0.6 2019-0 Yes [id number] .6mg TAKE 1 [facility] mg tablet 2-19 TABLET BY ity o f 00:00: MOUTH [place] 00 DAILY [facility] COLCRYS 0.6 2019-0 Yes [id number] .6mg TAKE 1 [facility] mg tablet 2-19 TABLET BY ity o f 00:00: MOUTH [place] DAILY [facility] Immunizations Ordered Filled Immunization Date Status Comments [facility] Immunization Name Name SARS-COV-2 COVID-19 2020-11-07 Completed Unive [facility] of PFIZER VACCINE 00:00:00 [facility] SARS-COV-2 COVID-19 2020-11-07 Completed Un[facility] of PFIZER VACCINE 00:00:00 [place] [facility] SARS-COV-2 COVID-19 2020-11-07 Completed Un[facility] of PFIZER VACCINE 00:00:00 [facility] SARS-COV-2 COVID-19 2020-11-07 Completed Un[facility] of PFIZER VACCINE 00:00:00 [facility] SARS-COV-2 COVID-19 2020-11-07 Completed [facility] of PFIZER VACCINE 00:00:00 [facility] SARS-COV-2 COVID-19 2020-11-07 Completed [facility] of PFIZER VACCINE 00:00:00 [facility] SARS-COV-2 COVID-19 2020-11-07 Completed [facility] of PFIZER VACCINE 00:00:00 [facility] SARS-COV-2 COVID-19 2020-11-07 Completed [facility] of PFIZER VACCINE 00:00:00 [facility] SARS-COV-2 COVID-19 2020-11-07 Completed [facility] of PFIZER VACCINE 00:00:00 [facility] SARS-COV-2 COVID-19 2020-11-07 Completed [facility] of PFIZER VACCINE 00:00:00 [facility] SARS-COV-2 COVID-19 2020-11-07 Completed [facility] of PFIZER VACCINE 00:00:00 [facility] SARS-COV-2 COVID-19 2020-11-07 Completed Un[facility] rs[facility] of PFIZER VACCINE 00:00:00 [facility] SARS-COV-2 COVID-19 2020-11-07 Completed [facility] rs[facility] of PFIZER VACCINE 00:00:00 [facility] SARS-COV-2 COVID-19 2020-11-07 Completed Unive rs[facility] of PFIZER VACCINE 00:00:00 [facility] SARS-COV-2 COVID-19 2020-11-07 Completed [facility]ive rs[facility] of PFIZER VACCINE 00:00:00 [facility] SARS-COV-2 COVID-19 2020-11-07 Completed Unive rsity of PFIZER VACCINE 00:00:00 [facility] SARS-COV-2 COVID-19 2020-11-07 Completed [facility] rs[facility] of PFIZER VACCINE 00:00:00 [facility] SARS-COV-2 COVID-19 2020-11-07 Completed [facility] rs[facility] of PFIZER VACCINE 00:00:00 [facility] SARS-COV-2 COVID-19 2020-11-07 Completed [facility] rs[facility] of PFIZER VACCINE 00:00:00 [facility] SARS-COV-2 COVID-19 2020-11-07 Completed [facility] rs[facility] of PFIZER VACCINE 00:00:00 [facility] SARS-COV-2 COVID-19 2020-11-07 Completed [facility]ive rs[facility] of PFIZER VACCINE 00:00:00 [facility] SARS-COV-2 COVID-19 2020-11-07 Completed [facility] of PFIZER VACCINE 00:00:00 [facility] SARS-COV-2 COVID-19 2020-11-07 Completed [facility] of PFIZER VACCINE 00:00:00 [facility] SARS-COV-2 COVID-19 2020-11-07 Completed [facility] of PFIZER VACCINE 00:00:00 [facility] SARS-COV-2 COVID-19 2020-11-07 Completed [facility] rs[facility] of PFIZER VACCINE 00:00:00 [facility] SARS-COV-2 COVID-19 2020-11-07 Completed [facility] of PFIZER VACCINE 00:00:00 [facility] SARS-COV-2 COVID-19 2020-04-19 Completed [facility] of PFIZER VACCINE 00:00:00 [facility] SARS-COV-2 COVID-19 2020-04-19 Completed [facility] of PFIZER VACCINE 00:00:00 [facility] SARS-COV-2 COVID-19 2020-04-19 Completed [facility] of PFIZER VACCINE 00:00:00 [facility] SARS-COV-2 COVID-19 2020-04-19 Completed [facility] of PFIZER VACCINE 00:00:00 [facility] SARS-COV-2 COVID-19 2020-04-19 Completed Unive rsity of PFIZER VACCINE 00:00:00 [facility] SARS-COV-2 COVID-19 2020-04-19 Completed Un[facility] rs[facility] of PFIZER VACCINE 00:00:00 [facility] SARS-COV-2 COVID-19 2020-04-19 Completed Unive rsity of PFIZER VACCINE 00:00:00 [facility] SARS-COV-2 COVID-19 2020-04-19 Completed Unive rsity of PFIZER VACCINE 00:00:00 [facility] SARS-COV-2 COVID-19 2020-04-19 Completed Unive rsity of PFIZER VACCINE 00:00:00 [facility] SARS-COV-2 COVID-19 2020-04-19 Completed [facility] of PFIZER VACCINE 00:00:00 [facility] SARS-COV-2 COVID-19 2020-04-19 Completed [facility] of PFIZER VACCINE 00:00:00 [facility] SARS-COV-2 COVID-19 2020-04-19 Completed [facility]ive [facility] of PFIZER VACCINE 00:00:00 [facility] SARS-COV-2 COVID-19 2020-04-19 Completed Un[facility] of PFIZER VACCINE 00:00:00 [facility] SARS-COV-2 COVID-19 2020-04-19 Completed Unive [facility]ity of PFIZER VACCINE 00:00:00 [facility] SARS-COV-2 COVID-19 2020-04-19 Completed [facility] of PFIZER VACCINE 00:00:00 [facility] SARS-COV-2 COVID-19 2020-04-19 Completed [facility] of PFIZER VACCINE 00:00:00 [facility] SARS-COV-2 COVID-19 2020-04-19 Completed Unive [facility] of PFIZER VACCINE 00:00:00 [facility] SARS-COV-2 COVID-19 2020-04-19 Completed Unive [facility]ity of PFIZER VACCINE 00:00:00 [facility] SARS-COV-2 COVID-19 2020-04-19 Completed [facility] of PFIZER VACCINE 00:00:00 [facility] SARS-COV-2 COVID-19 2020-04-19 Completed [facility] of PFIZER VACCINE 00:00:00 [facility] SARS-COV-2 COVID-19 2020-04-19 Completed [facility] of PFIZER VACCINE 00:00:00 [facility] SARS-COV-2 COVID-19 2020-04-19 Completed [facility] of PFIZER VACCINE 00:00:00 [facility] SARS-COV-2 COVID-19 2020-04-19 Completed Un[facility] rsity of PFIZER VACCINE 00:00:00 [facility] SARS-COV-2 COVID-19 2020-04-19 Completed Un[facility] of PFIZER VACCINE 00:00:00 [facility] SARS-COV-2 COVID-19 2020-04-19 Completed [facility] of PFIZER VACCINE 00:00:00 [facility] SARS-COV-2 COVID-19 2020-04-19 Completed [facility] of PFIZER VACCINE 00:00:00 [facility] SARS-COV-2 COVID-19 2020-03-21 Completed [facility] of PFIZER VACCINE 00:00:00 [facility] SARS-COV-2 COVID-19 2020-03-21 Completed [facility] of PFIZER VACCINE 00:00:00 [facility] SARS-COV-2 COVID-19 2020-03-21 Completed [facility] of PFIZER VACCINE 00:00:00 [facility] SARS-COV-2 COVID-19 2020-03-21 Completed [facility] of PFIZER VACCINE 00:00:00 [facility] SARS-COV-2 COVID-19 2020-03-21 Completed Un[facility] rs[facility] of PFIZER VACCINE 00:00:00 [facility] SARS-COV-2 COVID-19 2020-03-21 Completed [facility] of PFIZER VACCINE 00:00:00 [facility] SARS-COV-2 COVID-19 2020-03-21 Completed [facility] of PFIZER VACCINE 00:00:00 [facility] SARS-COV-2 COVID-19 2020-03-21 Completed Unive rsity of PFIZER VACCINE 00:00:00 [facility] SARS-COV-2 COVID-19 2020-03-21 Completed Un[facility] of PFIZER VACCINE 00:00:00 [facility] SARS-COV-2 COVID-19 2020-03-21 Completed Unive [facility]ity of PFIZER VACCINE 00:00:00 [facility] SARS-COV-2 COVID-19 2020-03-21 Completed Unive rsity of PFIZER VACCINE 00:00:00 [facility] SARS-COV-2 COVID-19 2020-03-21 Completed [facility]ive rsity of PFIZER VACCINE 00:00:00 [facility] SARS-COV-2 COVID-19 2020-03-21 Completed [facility] rsity of PFIZER VACCINE 00:00:00 [facility] SARS-COV-2 COVID-19 2020-03-21 Completed [facility]ive rsity of PFIZER VACCINE 00:00:00 [facility] SARS-COV-2 COVID-19 2020-03-21 Completed Unive rsity of PFIZER VACCINE 00:00:00 [facility] SARS-COV-2 COVID-19 2020-03-21 Completed [facility]ive rsity of PFIZER VACCINE 00:00:00 [facility] SARS-COV-2 COVID-19 2020-03-21 Completed [facility]ive rsity of PFIZER VACCINE 00:00:00 [facility] SARS-COV-2 COVID-19 2020-03-21 Completed [facility]ive [facility]ity of PFIZER VACCINE 00:00:00 [facility] SARS-COV-2 COVID-19 2020-03-21 Completed Un[facility] rsity of PFIZER VACCINE 00:00:00 [facility] SARS-COV-2 COVID-19 2020-03-21 Completed Unive rsity of PFIZER VACCINE 00:00:00 [facility] SARS-COV-2 COVID-19 2020-03-21 Completed Unive rsity of PFIZER VACCINE 00:00:00 [facility] SARS-COV-2 COVID-19 2020-03-21 Completed Unive rsity of PFIZER VACCINE 00:00:00 [facility] SARS-COV-2 COVID-19 2020-03-21 Completed [facility]ive [facility]ity of PFIZER VACCINE 00:00:00 [facility] SARS-COV-2 COVID-19 2020-03-21 Completed Unive rsity of PFIZER VACCINE 00:00:00 [facility] SARS-COV-2 COVID-19 2020-03-21 Completed [facility]ive [facility]ity of PFIZER VACCINE 00:00:00 [facility] SARS-COV-2 COVID-19 2020-03-21 Completed [facility]ity of PFIZER VACCINE 00:00:00 [facility] Influenza High Dose 2019-05-29 Completed Un[facility]ity of 00:00:00 [place] [facility] Influenza High Dose 2019-05-29 Completed Unive rsity of 00:00:00 [facility] Influenza High Dose 2019-05-29 Completed Unive rsity of 00:00:00 [facility] Influenza High Dose 2019-05-29 Completed Unive rsity of 00:00:00 [facility] Influenza High Dose 2019-05-29 Completed Unive rsity of 00:00:00 [facility] Influenza High Dose 2019-05-29 Completed Unive rsity of 00:00:00 [facility] Influenza High Dose 2019-05-29 Completed Unive rsity of 00:00:00 [facility] Influenza High Dose 2019-05-29 Completed Unive rsity of 00:00:00 [facility] Influenza High Dose 2019-05-29 Completed Unive rsity of 00:00:00 [facility] Influenza High Dose 2019-05-29 Completed Unive rsity of 00:00:00 [facility] Influenza High Dose 2019-05-29 Completed Unive rsity of 00:00:00 [facility] Influenza High Dose 2019-05-29 Completed Unive rsity of 00:00:00 [facility] Influenza High Dose 2019-05-29 Completed Unive rsity of 00:00:00 [facility] Influenza High Dose 2019-05-29 Completed Unive rsity of 00:00:00 [facility] Influenza High Dose 2019-05-29 Completed Unive rsity of 00:00:00 [facility] Influenza High Dose 2019-05-29 Completed Unive rsity of 00:00:00 [facility] Influenza High Dose 2019-05-29 Completed Unive rsity of 00:00:00 [facility] Influenza High Dose 2019-05-29 Completed Unive rsity of 00:00:00 [facility] Influenza High Dose 2019-05-29 Completed Unive rsity of 00:00:00 [facility] Influenza High Dose 2019-05-29 Completed Unive rsity of 00:00:00 [facility] Influenza High Dose 2019-05-29 Completed Unive rsity of 00:00:00 [facility] Influenza High Dose 2019-05-29 Completed Unive rsity of 00:00:00 [facility] Influenza High Dose 2019-05-29 Completed Unive rsity of 00:00:00 [facility] Influenza High Dose 2019-05-29 Completed Unive rsity of 00:00:00 [facility] Influenza High Dose 2019-05-29 Completed Unive rsity of 00:00:00 [facility] Influenza High Dose 2019-05-29 Completed Unive rsity of 00:00:00 [facility] Influenza High Dose 2017-02-10 Completed Unive rsity of 00:00:00 [facility] Influenza High Dose 2017-02-10 Completed Unive rsity of 00:00:00 [facility] Influenza High Dose 2017-02-10 Completed Unive rsity of 00:00:00 [facility] Influenza High Dose 2017-02-10 Completed Unive rsity of 00:00:00 [facility] Influenza High Dose 2017-02-10 Completed Unive rsity of 00:00:00 [facility] Influenza High Dose 2017-02-10 Completed Unive rsity of 00:00:00 [facility] Influenza High Dose 2017-02-10 Completed Unive rsity of 00:00:00 [facility] Influenza High Dose 2017-02-10 Completed Unive rsity of 00:00:00 [facility] Influenza High Dose 2017-02-10 Completed Unive rsity of 00:00:00 [facility] Influenza High Dose 2017-02-10 Completed Unive rsity of 00:00:00 [facility] Influenza High Dose 2017-02-10 Completed Unive rsity of 00:00:00 [facility] Influenza High Dose 2017-02-10 Completed Unive rsity of 00:00:00 [facility] Influenza High Dose 2017-02-10 Completed Unive rsity of 00:00:00 [facility] Influenza High Dose 2017-02-10 Completed Unive rsity of 00:00:00 [facility] Influenza High Dose 2017-02-10 Completed Unive rsity of 00:00:00 [facility] Influenza High Dose 2017-02-10 Completed Unive rsity of 00:00:00 [facility] Influenza High Dose 2017-02-10 Completed Unive rsity of 00:00:00 [facility] Influenza High Dose 2017-02-10 Completed Unive rsity of 00:00:00 [facility] Influenza High Dose 2017-02-10 Completed Unive rsity of 00:00:00 [facility] Influenza High Dose 2017-02-10 Completed Unive rsity of 00:00:00 [facility] Influenza High Dose 2017-02-10 Completed Unive rsity of 00:00:00 [facility] Influenza High Dose 2017-02-10 Completed Unive rsity of 00:00:00 [facility] Influenza High Dose 2017-02-10 Completed Unive rsity of 00:00:00 [facility] Influenza High Dose 2017-02-10 Completed Unive rsity of 00:00:00 [facility] Influenza High Dose 2017-02-10 Completed Unive rsity of 00:00:00 [facility] Influenza High Dose 2017-02-10 Completed Unive rsity of 00:00:00 [facility] Influenza High Dose 2015-12-25 Completed Unive rsity of 00:00:00 [facility] Influenza High Dose 2015-12-25 Completed Unive rsity of 00:00:00 [facility] Influenza High Dose 2015-12-25 Completed Unive rsity of 00:00:00 [facility] Influenza High Dose 2015-12-25 Completed Unive rsity of 00:00:00 [facility] Influenza High Dose 2015-12-25 Completed Unive rsity of 00:00:00 [facility] Influenza High Dose 2015-12-25 Completed Unive rsity of 00:00:00 [facility] Influenza High Dose 2015-12-25 Completed Unive rsity of 00:00:00 [facility] Influenza High Dose 2015-12-25 Completed Unive rsity of 00:00:00 [facility] Influenza High Dose 2015-12-25 Completed Unive rsity of 00:00:00 [facility] Influenza High Dose 2015-12-25 Completed Unive rsity of 00:00:00 [facility] Influenza High Dose 2015-12-25 Completed Unive rsity of 00:00:00 [facility] Influenza High Dose 2015-12-25 Completed Unive rsity of 00:00:00 [facility] Influenza High Dose 2015-12-25 Completed Unive rsity of 00:00:00 [facility] Influenza High Dose 2015-12-25 Completed Unive rsity of 00:00:00 [facility] Influenza High Dose 2015-12-25 Completed Unive rsity of 00:00:00 [facility] Influenza High Dose 2015-12-25 Completed Unive rsity of 00:00:00 [facility] Influenza High Dose 2015-12-25 Completed Unive rsity of 00:00:00 [facility] Influenza High Dose 2015-12-25 Completed Unive rsity of 00:00:00 [facility] Influenza High Dose 2015-12-25 Completed Unive rsity of 00:00:00 [facility] Influenza High Dose 2015-12-25 Completed Unive rsity of 00:00:00 [facility] Influenza High Dose 2015-12-25 Completed Unive rsity of 00:00:00 [facility] Influenza High Dose 2015-12-25 Completed Unive rsity of 00:00:00 [facility] Influenza High Dose 2015-12-25 Completed Unive rsity of 00:00:00 [facility] Influenza High Dose 2015-12-25 Completed Unive rsity of 00:00:00 [facility] Influenza High Dose 2015-12-25 Completed Unive [facility]ity of 00:00:00 [facility] Influenza High Dose 2015-12-25 Completed [facility] 00:00:00 [facility] [facility] Influenza High Dose 2015-03-20 Completed Unive rsity of 00:00:00 [facility] TDAP 2015-03-20 Completed University of 00:00:00 [facility] Influenza High Dose 2015-03-20 Completed Unive rsity of 00:00:00 [facility] TDAP 2015-03-20 Completed University of 00:00:00 [facility] Influenza High Dose 2015-03-20 Completed Unive rsity of 00:00:00 [facility] TDAP 2015-03-20 Completed University of 00:00:00 [facility] Influenza High Dose 2015-03-20 Completed Unive rsity of 00:00:00 [facility] TDAP 2015-03-20 Completed University of 00:00:00 [facility] Influenza High Dose 2015-03-20 Completed Unive rsity of 00:00:00 [facility] TDAP 2015-03-20 Completed University of 00:00:00 [facility] Influenza High Dose 2015-03-20 Completed Unive rsity of 00:00:00 [facility] TDAP 2015-03-20 Completed University of 00:00:00 [facility] Influenza High Dose 2015-03-20 Completed Unive rsity of 00:00:00 [facility] TDAP 2015-03-20 Completed University of 00:00:00 [facility] Influenza High Dose 2015-03-20 Completed Unive rsity of 00:00:00 [facility] TDAP 2015-03-20 Completed University of 00:00:00 [facility] Influenza High Dose 2015-03-20 Completed Unive rsity of 00:00:00 [facility] TDAP 2015-03-20 Completed University of 00:00:00 [facility] Influenza High Dose 2015-03-20 Completed Unive rsity of 00:00:00 [facility] TDAP 2015-03-20 Completed University of 00:00:00 [facility] Influenza High Dose 2015-03-20 Completed Unive rsity of 00:00:00 [facility] TDAP 2015-03-20 Completed University of 00:00:00 [facility] Influenza High Dose 2015-03-20 Completed Unive rsity of 00:00:00 [facility] TDAP 2015-03-20 Completed University of 00:00:00 [facility] Influenza High Dose 2015-03-20 Completed Unive rsity of 00:00:00 [facility] TDAP 2015-03-20 Completed University of 00:00:00 [facility] Influenza High Dose 2015-03-20 Completed Unive rsity of 00:00:00 [facility] TDAP 2015-03-20 Completed University of 00:00:00 [facility] Influenza High Dose 2015-03-20 Completed Unive rsity of 00:00:00 [facility] TDAP 2015-03-20 Completed University of 00:00:00 [facility] Influenza High Dose 2015-03-20 Completed Unive rsity of 00:00:00 [facility] TDAP 2015-03-20 Completed University of 00:00:00 [facility] Influenza High Dose 2015-03-20 Completed Unive rsity of 00:00:00 [facility] TDAP 2015-03-20 Completed University of 00:00:00 [facility] Influenza High Dose 2015-03-20 Completed Unive rsity of 00:00:00 [facility] TDAP 2015-03-20 Completed University of 00:00:00 [facility] Influenza High Dose 2015-03-20 Completed Unive rsity of 00:00:00 [facility] TDAP 2015-03-20 Completed University of 00:00:00 [facility] Influenza High Dose 2015-03-20 Completed Unive rsity of 00:00:00 [facility] TDAP 2015-03-20 Completed University of 00:00:00 [facility] Influenza High Dose 2015-03-20 Completed Unive rsity of 00:00:00 [facility] TDAP 2015-03-20 Completed University of 00:00:00 [facility] Influenza High Dose 2015-03-20 Completed Unive rsity of 00:00:00 [facility] TDAP 2015-03-20 Completed University of 00:00:00 [facility] Influenza High Dose 2015-03-20 Completed Unive rsity of 00:00:00 [facility] TDAP 2015-03-20 Completed University of 00:00:00 [facility] Influenza High Dose 2015-03-20 Completed Unive rsity of 00:00:00 [facility] TDAP 2015-03-20 Completed University of 00:00:00 [facility] Influenza High Dose 2015-03-20 Completed [facility] Com[facility] 00:00:00 [facility] Influenza High Dose 2015-03-20 Completed [facility] 00:00:00 [facility] 2015-[facility]-20 Completed University of 00:00:00 [facility] Pneumococcal 13 2014-08-01 Completed Universit y of [...] Completed Universit y of Conjugate, PCV13 00:00:00 [facility] dical (Prevnar 13) Branch Pneumococcal 13 2014-08-01 Completed Universit y of Conjugate, PCV13 00:00:00 [place] [facility]ical (Prevnar 13) Branch Influenza High Dose 2013-11-29 Completed Unive rsity of 00:00:00 [facility] Influenza High Dose 2013-11-29 Completed Unive rsity of 00:00:00 [facility] Influenza High Dose 2013-11-29 Completed Unive rsity of 00:00:00 [facility] Influenza High Dose 2013-11-29 Completed Unive rsity of 00:00:00 [facility] Influenza High Dose 2013-11-29 Completed Unive rsity of 00:00:00 [facility] Influenza High Dose 2013-11-29 Completed Unive rsity of 00:00:00 [facility] Influenza High Dose 2013-11-29 Completed Unive rsity of 00:00:00 [facility] Influenza High Dose 2013-11-29 Completed Unive rsity of 00:00:00 [facility] Influenza High Dose 2013-11-29 Completed Unive rsity of 00:00:00 [facility] Influenza High Dose 2013-11-29 Completed Unive rsity of 00:00:00 [facility] Influenza High Dose 2013-11-29 Completed Unive rsity of 00:00:00 [facility] Influenza High Dose 2013-11-29 Completed Unive rsity of 00:00:00 [facility] Influenza High Dose 2013-11-29 Completed Unive rsity of 00:00:00 [facility] Influenza High Dose 2013-11-29 Completed Unive rsity of 00:00:00 [facility] Influenza High Dose 2013-11-29 Completed Unive rsity of 00:00:00 [facility] Influenza High Dose 2013-11-29 Completed Unive rsity of 00:00:00 [facility] Influenza High Dose 2013-11-29 Completed Unive rsity of 00:00:00 [facility] Influenza High Dose 2013-11-29 Completed Unive rsity of 00:00:00 [facility] Influenza High Dose 2013-11-29 Completed Unive rsity of 00:00:00 [facility] Influenza High Dose 2013-11-29 Completed Unive rsity of 00:00:00 [facility] Influenza High Dose 2013-11-29 Completed Unive rsity of 00:00:00 [facility] Influenza High Dose 2013-11-29 Completed Unive rsity of 00:00:00 [facility] Influenza High Dose 2013-11-29 Completed Unive rsity of 00:00:00 [facility] Influenza High Dose 2013-11-29 Completed Unive rsity of 00:00:00 [facility] Influenza High Dose 2013-11-29 Completed Unive rsity of 00:00:00 [facility] Influenza High Dose 2013-11-29 Completed Unive rsity of 00:00:00 [facility] Influenza High Dose 2013-04-07 Completed Unive rsity of 00:00:00 [facility] Influenza High Dose 2013-04-07 Completed Unive rsity of 00:00:00 [facility] Influenza High Dose 2013-04-07 Completed Unive rsity of 00:00:00 [facility] Influenza High Dose 2013-04-07 Completed Unive rsity of 00:00:00 [facility] Influenza High Dose 2013-04-07 Completed Unive rsity of 00:00:00 [facility] Influenza High Dose 2013-04-07 Completed Unive rsity of 00:00:00 [facility] Influenza High Dose 2013-04-07 Completed Unive rsity of 00:00:00 [facility] Influenza High Dose 2013-04-07 Completed Unive rsity of 00:00:00 [facility] Influenza High Dose 2013-04-07 Completed Unive rsity of 00:00:00 [facility] Influenza High Dose 2013-04-07 Completed Unive rsity of 00:00:00 [facility] Influenza High Dose 2013-04-07 Completed Unive rsity of 00:00:00 [facility] Influenza High Dose 2013-04-07 Completed Unive rsity of 00:00:00 [facility] Influenza High Dose 2013-04-07 Completed Unive rsity of 00:00:00 [facility] Influenza High Dose 2013-04-07 Completed Unive rsity of 00:00:00 [facility] Influenza High Dose 2013-04-07 Completed Unive rsity of 00:00:00 [facility] Influenza High Dose 2013-04-07 Completed Unive rsity of 00:00:00 [facility] Influenza High Dose 2013-04-07 Completed Unive rsity of 00:00:00 [facility] Influenza High Dose 2013-04-07 Completed Unive rsity of 00:00:00 [facility] Influenza High Dose 2013-04-07 Completed Unive rsity of 00:00:00 [facility] Influenza High Dose 2013-04-07 Completed Unive rsity of 00:00:00 [facility] Influenza High Dose 2013-04-07 Completed Unive rsity of 00:00:00 [facility] Influenza High Dose 2013-04-07 Completed Unive rsity of 00:00:00 [facility] Influenza High Dose 2013-04-07 Completed Unive rsity of 00:00:00 [facility] Influenza High Dose 2013-04-07 Completed Unive rsity of 00:00:00 [facility] Influenza High Dose 2013-04-07 Completed Unive rsity of 00:00:00 [facility] Influenza High Dose 2013-04-07 Completed Unive rsity of 00:00:00 [facility] Influenza Virus 2009-12-24 Completed Universit y of Vaccine 00:00:00 [facility] Influenza Virus 2009-12-24 Completed Universit y of Vaccine 00:00:00 [facility] Influenza Virus 2009-12-24 Completed Universit y of Vaccine 00:00:00 [facility] Influenza Virus 2009-12-24 Completed Universit y of Vaccine 00:00:00 [facility] Influenza Virus 2009-12-24 Completed Universit y of Vaccine 00:00:00 [facility] Influenza Virus 2009-12-24 Completed Universit y of Vaccine 00:00:00 [facility] Influenza Virus 2009-12-24 Completed Universit y of Vaccine 00:00:00 [facility] Influenza Virus 2009-12-24 Completed Universit y of Vaccine 00:00:00 [facility] Influenza Virus 2009-12-24 Completed Universit y of Vaccine 00:00:00 [facility] Influenza Virus 2009-12-24 Completed Universit y of Vaccine 00:00:00 [facility] Influenza Virus 2009-12-24 Completed Universit y of Vaccine 00:00:00 [facility] Influenza Virus 2009-12-24 Completed Universit y of Vaccine 00:00:00 [facility] Influenza Virus 2009-12-24 Completed Universit y of Vaccine 00:00:00 [facility] Influenza Virus 2009-12-24 Completed Universit y of Vaccine 00:00:00 [facility] Influenza Virus 2009-12-24 Completed Universit y of Vaccine 00:00:00 [facility] Influenza Virus 2009-12-24 Completed Universit y of Vaccine 00:00:00 [facility] Influenza Virus 2009-12-24 Completed Universit y of Vaccine 00:00:00 [facility] Influenza Virus 2009-12-24 Completed Universit y of Vaccine 00:00:00 [facility] Influenza Virus 2009-12-24 Completed Universit y of Vaccine 00:00:00 [facility] Influenza Virus 2009-12-24 Completed Universit y of Vaccine 00:00:00 [facility] Influenza Virus 2009-12-24 Completed Universit y of Vaccine 00:00:00 [facility] Influenza Virus 2009-12-24 Completed Universit y of Vaccine 00:00:00 [facility] Influenza Virus 2009-12-24 Completed Universit y of Vaccine 00:00:00 [facility] Influenza Virus 2009-12-24 Completed Universit y of Vaccine 00:00:00 [facility] Influenza Virus 2009-12-24 Completed Universit y of Vaccine 00:00:00 [facility] Influenza Virus 2009-12-24 Completed Universit y of Vaccine 00:00:00 [facility] Pneumococcal 2008-06-23 Completed University o f Polysaccharide, [...] Polysaccharide, 00:00:00 [place] [facility] PPSV23 (PNEUMOVAX) [place] Vital Signs Vital Name Observation Time Observation Value Comments Source Systolic blood 2022-08-28 03:00:00 186 mm[Hg] Univer sity of pressure [facility] Diastolic blood 2022-08-28 03:00:00 89 mm[Hg] Unive rsity of [facility] Heart rate 2022-08-28 03:00:00 84 /min Universi ty of [facility] Respiratory rate 2022-08-28 03:00:00 18 /min [facility] Oxygen saturation in 2022-08-28 03:00:00 96 /min [facility] Arterial blood by [facility] Pulse oximetry [place] Body temperature 2022-08-28 02:17:[address] [facility] Body height 2022-08-28 02:06:00 175.3 cm Universi ty [facility] Body weight 2022-08-28 02:06:00 154.223 kg Universi ty [facility] BMI 2022-08-28 02:06:00 50.21 kg/m2 Universi ty [facility] Systolic blood 2021-11-08 19:31:00 166 mm[Hg] Univer sity of [facility] Diastolic blood 2021-11-08 19:31:00 83 mm[facility]Hg] [facility] Heart rate 2021-11-08 19:31:00 71 /min Universi ty of [facility] Body temperature 2021-11-08 19:30:[address] [facility] Respiratory rate 2021-11-08 19:30:00 18 /min [facility] Body height 2021-11-08 19:30:00 175.3 cm Universi ty of [facility] Body weight 2021-11-08 19:30:00 154.223 kg Universi ty [facility] BMI 2021-11-08 19:30:00 50.21 kg/m2 Universi [facility] Procedures Procedure Date / Time Performing Clinician Source Performed EKG-12 LEAD 2022-08-28 03:39:43 Kevin De La Cruz [place] o f [facility] TROPONIN I 2022-08-28 02:17:00 Kevin De La Cruz [facility] COMP. METABOLIC PANEL 2022-08-28 02:17:00 Kevin De La Cruz [facility] ([id number]) [facility] CBC WITH DIFF 2022-08-28 02:17:00 Kevin De La Cruz [facility] PROTHROMBIN TIME / INR 2022-08-28 02:17:00 Kevin De La Cruz [facility] rsity [facility] ACTIVATED PARTIAL 2022-08-28 02:17:00 Kevin De La Cruz [facility] THRMPLAS [facility] ABO GROUPING 2022-08-28 02:17:00 Kevin De La Cruz [facility] N-TERMINAL PRO-BNP 2022-08-28 02:17:00 Kevin De La Cruz [facility] CONSENT/REFUSAL FOR 2022-08-28 02:00:50 Doctor Unassigned, No Un [facility] DIAGNOSIS AND TREATMENT Name [facility] Encounters Start End Encounter Admission Attending Care Care Encounter Source Date/Time Date/Time Type Type Clinicians Facility Department ID 2020-12-21 Emergency [facility] [id number] Univers 21:28:42 ity of [facility] 2022-09-08 2022-09-[address] [facility] [id number] [id number] Univers 00:00:00 00:00:00 , [place]anza [facility] [id number] ity of Monique GOMEZ [id number] [place] as SHRADDHA?BLEA [id number] La alice [address] MEDICAL OFFICE BUILDING 2022-08-27 2022-08-27 Emergency X [facility], [facility] ERT [id number] Univers 21:01:00 23:17:00 [facility] 2022-08-27 2022-08-27 Emergency [facility] [id number] Univers 21:01:00 23:17:00 Kevin GOMEZ [id number] i ty [facility] [id number] [place] [facility] [id number] [facility] 084 [place] 2022-08-27 2022-08-27 Nurse TONYA Rodríguez [id number] Univers 00:00:00 00:00:00 Triage Tash ALEMAN [id number] i ty of [facility] [id number] [place] as [id number] [address] 2022-08-21 2022-08-21 Outpatient R AMINAHAI [facility] [id number] Univers 16:30:00 16:30:00 DELROY mendiola [facility] 2022-08-17 2022-08-17 [facility] [id number] [id number] Univers 00:00:00 00:00:00 , [place]anza Strobe 350.1.13.10 ity [place] [id number] [place] as SHRADDHA?BLEA [id number] [address] MEDICAL OFFICE [facility] 2022-05-22 2022-05-22 Outpatient R [facility] [id number] Univers 15:45:00 15:45:00 , ESPERANZA buck y [facility] 2022-04-17 2022-04-17 [facility] [id number] Univers 00:00:00 00:00:00 , [place] Strobe [id number] ity of [facility] [id number] [place] SHRADDHA?BLEA [id number] [address] MEDICAL OFFICE [facility] 2022-04-14 2022-04-14 [facility] [id number] [id number] Univers 00:00:00 00:00:00 , [facility] [id number] ity of [facility] [id number] [place] SHRADDHA?BLEA [id number] [address] MEDICAL OFFICE [facility] 2022-04-11 2022-04-11 [facility] [id number] Univers 15:45:00 15:45:00 , ESPERANZA it y [facility] 2022-04-06 2022-04-06 [facility] 1.2.840.114 [id number] Univers 00:00:00 00:00:00 , [place]anza [facility] [id number] ity of [place] [id number] [place] SHRADDHA?BLEA [id number] La alice LUNDBERG [address] [place] [address] MEDICAL OFFICE BUILDING 2022-03-14 2022-03-14 Outpatient R RAMSEY [facility] [id number] Univers 16:00:00 16:00:00 , ESPERANZA it y of [facility] 2022-02-25 2022-02-25 Refill Pooja Lord 1.2.840.114 [id number] Univers 00:00:00 00:00:00 Ali PED[facility]ATRIC 350.1.13.10 ity [place]2.686 [place] [id number] [address] 2022-01-31 2022-01-31 Refill Ramsey HYDEIN 1.2.840.114 [id number] Univers 00:00:00 00:00:00 , [place] PEDIATRIC 350.1.13.10 ity [place].7.2.686 [place] [id number] [address] 2022-01-25 2022-01-25 Refill Ramsey HYDEIN 1.2.840.114 [id number] Univers 00:00:00 00:00:00 , [place] PEDIATRIC 350.1.13.10 ity [place]2.[place] [id number] [address] 2022-01-25 2022-01-25 Refill Ramsey BRETT 1.2.840.114 [id number] Univers 00:00:00 00:00:00 , [place] PEDIATRIC 350.1.13.10 ity [place].2.686 [place] [id number] [address] 2022-01-25 2022-01-25 Refill Ramsey HYDEIN 1.2.840.114 [id number] Univers 00:00:00 00:00:00 , [place] PEDIATRIC 350.1.13.10 ity [place].2.686 [place] [id number] [address] 2022-01-25 2022-01-25 Refill Ramsey BRETT 1.2.840.114 [id number] Univers 00:00:00 00:00:00 , [place] PEDIATRIC 350.1.13.10 ity [place]2.[place] [id number] [address] 2022-01-25 2022-01-25 Refill Mcgrath BRETT 1.2.840.114 [id number] Univers 00:00:00 00:00:00 , [place] PEDIATRIC 350.1.13.10 ity [place].2.[place] [id number] [address] 2022-01-25 2022-01-25 Refill Ramsey BRETT 1.2.840.114 [id number] Univers 00:00:00 00:00:00 , [place] PEDIATRIC 350.1.13.10 ity [place]2.7.2.[place] [id number] [address] 2022-01-25 2022-01-25 Refill Ramsey BRETT 1.2.840.114 [id number] Univers 00:00:00 00:00:00 , [place] PEDIATRIC 350.1.13.10 ity [place].2.[place] [id number] [address] 2022-01-25 2022-01-25 Refill Mcgrath BRETT 1.2.840.114 [id number] Univers 00:00:00 00:00:00 , [place] PEDIATRIC 350.1.13.10 ity [place].2.[place] [id number] [address] 2022-01-25 2022-01-25 Refill Ramsey BRETT 1.2.840.114 [id number] Univers 00:00:00 00:00:00 , [place] PEDIATRIC 350.1.13.10 ity [place].2.[place] [id number] [address] 2022-01-09 2022-01-09 Refill Ramsey HYDEIN 1.2.840.114 [id number] Univers 00:00:00 00:00:00 , [place] PEDIATRIC 350.1.13.10 ity [place].2.[place] [id number] [address] 2022-01-09 2022-01-09 Refill Ramsey HYDEIN 1.2.840.114 [id number] Univers 00:00:00 00:00:00 , [place] PEDIATRIC 350.1.13.10 ity [place].2.[place] [id number] [address] 2021-12-20 2021-12-20 Refill Pooja Lord 1.2.840.114 [id number] Univers 00:00:00 00:00:00 Ali PEDIATRIC 350.1.13.10 ity [place]2.[place] [id number] [address] 2021-12-13 2021-12-13 Outpatient Kecia MUSTAFA [facility] [id number] Univers 15:15:00 15:15:00 , ESPERANZA it y of [facility] 2021-11-13 2021-11-13 Refill Ramsey HYDEIN 1.2.840.114 [id number] Univers 00:00:00 00:00:00 , [place] PEDIATRIC 350.1.13.10 ity [place]2.[place] [id number] [address] 2021-11-13 2021-11-13 Refill Ramsey HYDEIN 1.2.840.114 [id number] Univers 00:00:00 00:00:00 , [place] PEDIATRIC 350.1.13.10 ity of M S AND [id number] [place] [id number] [address] 2021-11-13 2021-11-13 RefPooja Saini 1.2.840.114 [id number] Univers 00:00:00 00:00:00 Ali PEDIATRIC 350.1.13.10 [place] [id number] [address] 2021-11-08 2021-11-08 Outpatient R [facility] [id number] Univers 15:00:00 15:27:00 , ESPERANZA floyd of [facility] 2021-11-08 2021-11-08 Office Ramsey WEST 1.2.840.114 [id number] Univers 15:00:00 15:27:00 Visit , Esperanza PEDIATRIC 350.1.13.10 it[place] [id number] [address] 2021-10-06 2021-10-06 RefGilmar Friend 1.2.840.114 [id number] Univers 00:00:00 00:00:00 Y PEDIATRIC 350.1.13.10 [place] [id number] [address] 2021-09-27 2021-09-27 Outpatient R [facility] [id number] Univers 16:15:00 16:15:00 , ESPERANZA buck y [facility] 2021-09-13 2021-09-13 Refmoses WEST 1.2.840.114 [id number] Univers 00:00:00 00:00:00 , [place] PEDIATRIC 350.1.13.10 ity [place] [id number] [address] 2021-09-10 2021-09-10 Gilmar Garcia 1.2.840.114 [id number] Univers 00:00:00 00:00:00 Y PEDIATRIC 350.1.13.10 [place] [id number] [address] 2021-09-05 2021-09-05 Orders Doctor TONYA 1.2.840.114 [id number] Univers 00:00:00 00:00:00 Only Unassigned, LOVE 350.1.13.10 ity of [facility] 4.2.7.2.686 [place] as [phone] [address] 2021-08-30 2021-08-30 Outpatient R RAMSEY [facility] [id number] Univers 16:15:00 16:15:00 , ESPERANZA buck y of [facility] 2021-08-30 2021-08-30 Telephone Ramsey WEST 1.2.840.114 [id number] Univers 00:00:00 00:00:00 , [place] PEDIATRIC 350.1.13.10 it[place] [id number] [address] 2021-08-24 2021-08-24 Refill Ramsey WEST 1.2.840.114 [id number] Univers 00:00:00 00:00:00 , [place] PEDIATRIC 350.1.13.10 ity [place] [id number] [address] 2021-08-21 2021-08-21 Orders Doctor TONYA 1.2.840.114 [id number] Univers 00:00:00 00:00:00 Only Unassigned, LOVE 350.1.13.10 ity of [facility] 4.2.7.2.686 [place] [id number] [address] 2021-08-20 2021-08-20 Telephone Ramsey WEST 1.2.840.114 [id number] Univers 00:00:00 00:00:00 , [place] PEDIATRIC 350.1.13.10 ity [place] [id number] [address] 2021-08-19 2021-08-19 Telephone Ramsey WEST 1.2.840.114 [id number] Univers 00:00:00 00:00:00 , [place] PEDIATRIC 350.1.13.10 ity [place] [id number] [address] 2021-08-13 2021-08-13 Refill Ramsey BRETT 1.2.840.114 [id number] Univers 00:00:00 00:00:00 , [place] PEDIATRIC 350.1.13.10 ity [place] [id number] [address] 2021-08-07 2021-08-07 Outpatient R RAMSEY [facility] [id number] Univers 15:15:00 15:15:00 , ESPERANZA buck [facility] 2021-07-31 2021-07-31 Outpatient R STEPHANIE [facility] [id number] Univers 15:45:00 15:45:00 NIA mendiola [facility] 2021-07-29 2021-07-29 Telephone Ramsey WEST 1.2.840.114 [id number] Univers 00:00:00 00:00:00 , [place] PEDIATRIC 350.1.13.10 ity [place] [id number] [address] 2021-07-24 2021-07-24 Outpatient R RAMSEY [facility] [id number] Univers 14:00:00 14:00:00 , ESPERANZA buck y [facility] 2021-07-17 2021-07-17 Outpatient R RAMSEY [facility] [id number] Univers 14:00:00 14:44:14 , ESPERANZA buck y [facility] 2021-07-17 2021-07-17 Office Mcgrathedenilson WEST 1.2.840.114 [id number] Univers 14:00:00 14:44:14 Visit , [place] PEDIATRIC 350.1.13.10 ity [place] [id number] [address] 2021-07-12 2021-07-12 Outpatient R RAMSEY [facility] [id number] Univers 15:45:00 15:45:00 , ESPERANZA it y of [facility] 2021-06-26 2021-06-26 Refill Ramsey BRETT 1.2.840.114 [id number] Univers 00:00:00 00:00:00 , [place] PEDIATRIC 350.1.13.10 ity [place] [id number] [address] 2021-06-20 2021-06-20 Telephone Ramsey HYDEIN 1.2.840.114 [id number] Univers 00:00:00 00:00:00 , [place] PEDIATRIC 350.1.13.10 ity [place] [id number] [address] 2021-06-14 2021-06-14 Refill Ramsey BRETT 1.2.840.114 [id number] Univers 00:00:00 00:00:00 , [place] PEDIATRIC 350.1.13.10 ity [place] [id number] [address] 2021-06-14 2021-06-14 Refill Mcgrath BRETT 1.2.840.114 [id number] Univers 00:00:00 00:00:00 , [place] PEDIATRIC 350.1.13.10 ity [place] [id number] [address] 2021-04-25 2021-04-25 Refill Ramsey BRETT 1.2.840.114 [id number] Univers 00:00:00 00:00:00 , [place] PEDIATRIC 350.1.13.10 ity [place] [id number] [address] 2021-03-22 2021-03-22 Telephone Mcgrath BRETT 1.2.840.114 [id number] Univers 00:00:00 00:00:00 , [place] PEDIATRIC 350.1.13.10 ity [place] [id number] [address] 2021-03-20 2021-03-20 Telephone Ramsey BRETT 1.2.840.114 [id number] Univers 00:00:00 00:00:00 , [place] PEDIATRIC 350.1.13.10 ity [place] [id number] [address] 2021-03-05 2021-03-05 Patient RaBRETT mahan 1.2.728.931 [id number] Univers 00:00:00 00:00:00 Secure Msg Mejía PEDIATRIC 350.1.13.10 [place]y [place] [id number] [address] 2021-02-19 2021-02-19 Telephone Ramsey ALVIN 1.2.840.114 [id number] Univers 00:00:00 00:00:00 , [place] PEDIATRIC 350.1.13.10 ity [place] [id number] [address] 2021-02-06 2021-02-[address] [facility] 1.2.840.114 [id number] Univers 00:00:00 00:00:00 Olena Amaya PRIMARY 350.1.13.10 ity of [place]2.[place] [id number] [address] 2021-02-06 2021-02-06 Telephone Mcgrath ALVIN 1.2.840.114 [id number] Univers 00:00:00 00:00:00 , [place] PEDIATRIC 350.1.13.10 ity [place] 4[place].2.[place] [id number] [address] 2021-02-01 2021-02-01 Outpatient R RAMSEY [facility] [id number] Univers 15:45:00 15:45:00 , ESPERANZA it y of [facility] 2021-01-31 2021-01-31 Refill Ramsey HYDEIN 1.2.840.114 [id number] Univers 00:00:00 00:00:00 , [place] PEDIATRIC 350.1.13.10 ity [place] [id number] [address] 2021-01-29 2021-01-29 Refill Ramsey WEST 1.2.840.114 [id number] Univers 00:00:00 00:00:00 , [place] PEDIATRIC 350.1.13.10 ity [place] [id number] [address] 2021-01-28 2021-01-28 Refill Ramsey WEST 1.2.840.114 [id number] Univers 00:00:00 00:00:00 , [place] PEDIATRIC 350.1.13.10 ity [place] [id number] [address] 2021-01-26 2021-01-26 Refill [place], [facility] 1.2.516.819 [id number] Univers 00:00:00 00:00:00 Olena M Y [facility] 350.1.13.10 ity of CL[place]ICS 4[place]2.[place].2.[place] [phone] [place] [address] [address] 2021-01-25 2021-01-25 Refill Ramsey WEST 1.2.840.114 [id number] Univers 00:00:00 00:00:00 , [place] PEDIATRIC 350.1.13.10 ity of [place] [id number] [address] 2020-12-11 2020-12-11 Outpatient R ROSHAN [facility] [id number] Univers 15:00:00 15:00:00 SENDTAMEKA [facility] 2020-11-28 2020-11-28 Outpatient Kecia GILLILAND, [facility] [id number] Univers 14:00:00 14:00:00 KYLEIGH [facility] 2020-11-26 2020-11-26 Outpatient Kecia VASQUES, [facility] [id number] Univers 14:00:00 14:00:00 DOUGLAS [facility] 2020-11-22 2020-11-22 [facility] 1.2.840.114 [id number] Univers 13:15:00 13:30:00 Visit Aquiles Gomez 350.1.13.10 i ty of [place].2.[place] [id number] [address] 2020-11-22 2020-11-22 [facility]patient [facility] [id number] Univers 13:15:00 13:15:00 AQUILES [facility] 2020-11-22 2020-11-22 Telephone Ramsey West 1.2.840.114 [id number] Univers 00:00:00 00:00:00 , [place] Pediatric 350.1.13.10 ity of [place] and 4[place].2.686 [place] [phone] [address] 2020-11-22 2020-11-22 Telephone Ramsey West 1.2.840.114 [id number] Univers 00:00:00 00:00:00 , [place] Pediatric 350.1.13.10 ity of [place] and 4.2.7.2.686 [place] [id number] [address] 2020-11-21 2020-11-21 Office Ramsey West 1.2.840.114 [id number] Univers 15:19:28 15:49:28 Visit , [place] Pediatric 350.1.13.10 ity of M [place] and 4[place]2.7.2.686 [place] [id number] [address] 2020-11-21 2020-11-21 Outpatient R RAMSEY [facility] [id number] Univers 15:45:00 15:45:00 , ESPERANZA buck y of [facility] 2020-11-12 2020-11-12 Outpatient R KELSI [facility] [id number] Univers 14:30:00 14:30:00 BILAL ity [facility] 2020-11-12 2020-11-12 Patient Brett Ray 1.2.840.114 [id number] Univers 00:00:00 00:00:00 Outreach Bonita L Pediatric 350.1.13.10 ity of [place] and 4[place].2.686 [place] [id number] [address] 2020-11-12 2020-11-12 Patient Brett Ray 1.2.840.114 [id number] Univers 00:00:00 00:00:00 Outreach Bonita L Pediatric 350.1.13.10 ity of [place] 4[place].2.[place] [id number] [address] 2020-11-12 2020-11-12 Patient Brett Ray 1.2.840.114 [id number] Univers 00:00:00 00:00:00 Outreach Bonita L Pediatric 350.1.13.10 ity of [place].2.[place] [id number] [address] 2020-11-08 2020-11-08 Patient Ramsey West 1.2.840.114 [id number] Univers 00:00:00 00:00:00 Outreach [place] Pediatric 350.1.13.10 ity of M [place] and 4[place]2.[place].2.686 [place] [id number] [address] 2020-11-07 2020-11-07 Imm/Inj Vaccine, Brett Family Brett 1.2. 840.114 [id number] Univers 16:00:44 16:10:44 Visit Es[place]anza Mustafa Pediatric 350 .1.13.10 ity of s and 4.2.7.2.686 [place] [id number] [facility] 2020-11-07 2020-11-07 Office Ramsey West 1.2.840.114 [id number] Univers 14:35:43 16:09:41 Visit , [place] Pediatric 350.1.13.10 ity of M [place] and 4.2.7.2.686 [place] [id number] [place] [address] [address] [facility] 2020-11-07 2020-11-07 Office Ramsey West 1.2.840.114 [id number] Univers 14:35:43 16:09:41 Visit , [place] Pediatric 350.1.13.10 ity of M [place] and 4.2.7.2.686 [place] [id number] [address] 2020-11-07 2020-11-07 Outpatient R RAMSEY [facility] [id number] Univers 15:15:00 15:15:00 , ESPERANZA buck y of [facility] 2020-11-07 2020-11-07 Orders Ramsey CASTANEDA 1.2.840.114 [id number] Univers 00:00:00 00:00:00 Only , [place] ALEMAN 350.1.13.10 ity of [facility] 4.2.7.2.686 [place] [phone] [place] [address] [address] 2020-10-31 2020-10-31 Outpatient R DEANNE [facility] [id number] Univers 16:00:00 16:00:00 KT mendiola of [facility] 2020-10-25 2020-10-25 Refmoses [facility] 1.2.840.114 [id number] Univers 00:00:00 00:00:00 Olena Amaya PRIMARY 350.1.13.10 ity of [place]2.[place] [id number] [address] 2020-10-22 2020-10-22 Refmoses Gonzalez, [facility] 1.2.279.536 [id number] Univers 00:00:00 00:00:00 Olena Amaya Y HEALTH 350.1.13.10 ity of [facility] 4.2.7.2.686 [place] s [id number] [address] 2020-10-11 2020-10-11 Outpatient Kecia LEDESMA, [facility] [id number] Univers 13:00:00 13:00:00 DELROY mendiola of [facility] 2020-10-01 2020-10-01 Outpatient Kecia PAREDES, [facility] [id number] Univers 19:00:00 19:00:00 DIONNA mendiola o f [facility] 2020-06-16 2020-06-16 Refill [facility] 1.2.840.114 [id number] 00:00:00 00:00:00 Olena Amaya PRIMARY 350.1.13.10 CARE 4.2.7.2.686 PAVILLION [id number] 390 2020-06-13 2020-06-13 [facility], [facility] 1.2.367.140 [id number] 00:00:00 00:00:00 Olena Floyd HEALTH 350.1.13.10 CLINICS 4.2.7.2.686 [id number] 076 2020-06-12 2020-06-12 [facility] 1.2.087.109 [id number] 00:00:00 00:00:00 Olena Floyd HEALTH 350.1.13.10 CLINICS 4.2.7.2.686 [id number] 076 2020-06-03 2020-06-03 [facility], [facility] 1.2.261.601 [id number] 00:00:00 00:00:00 Olena Floyd HEALTH 350.1.13.10 CLINICS 4.2.7.2.686 [id number] 076 2020-05-11 2020-05-11 [facility] 1.2.840.114 [id number] 00:00:00 00:00:00 Olena Amaya PRIMARY 350.1.13.10 CARE 4.2.7.2.686 PAVILLION [id number] 390 2020-04-19 2020-04-19 Outpatient Kecia ROMERO, [facility] [id number] Univers 15:30:00 15:30:00 ABDULAZIZ mariel [facility] 2020-04-13 2020-04-13 Outpatient Kecia ROMERO [facility] [id number] Univers 15:40:00 15:40:00 ABDULAZIZ mariel [facility] 2020-04-10 2020-04-10 Refmoses [facility] 1.2.840.114 [id number] 00:00:00 00:00:00 Olena M PRIMARY 350.1.13.10 CARE 4.2.7.2.686 PAVILLION [id number] 390 2020-03-28 2020-03-28 Refill [facility] 1.2.840.114 [id number] 00:00:00 00:00:00 Olena M PRIMARY 350.1.13.10 CARE 4.2.7.2.686 PAVILLION [id number] 390 2020-03-27 2020-03-27 Refill [facility] 1.2.840.114 [id number] 00:00:00 00:00:00 Olena M PRIMARY 350.1.13.10 CARE 4.2.7.2.686 PAVILLION [id number] 390 2020-03-25 2020-03-25 [facility] 1.2.840.114 [id number] 00:00:00 00:00:00 Aquiles Gomez 350.1.13.10 [place] 4.2.7.2.686 Professio [id number] [address] 2020-03-21 2020-03-21 Outpatient Kecia VOGEL [facility] [id number] Univers 15:30:00 15:30:00 KIMBER mendiola [facility] 2019-10-18 2019-10-18 Outpatient Kecia HECTOR [facility] [id number] Univers 09:15:00 09:15:00 OLENA mendiola [facility] 2019-06-07 2019-06-07 Outpatient Kecia HECTOR [facility] [id number] Univers 11:15:00 11:15:00 OLENA mendiola [facility] 2019-05-27 2019-05-29 Outpatient Raquel YODER [facility] [id number] Univers 14:59:30 14:00:00 BALJIT [facility] 2019-05-27 2019-05-27 Outpatient R PETR [facility] [id number] Univers 09:30:00 09:30:00 [facility] 2019-05-20 2019-05-20 Outpatient R SHIRA [facility] [id number] Univers 09:00:00 10:44:50 [facility] 2019-05-20 2019-05-20 Outpatient R SHIRA [facility] [id number] Univers 09:00:00 09:00:00 [facility] 2019-04-22 2019-04-22 [facility] [id number] Univers 16:15:00 16:15:00 [facility] 2019-04-22 2019-04-22 Outpatient R PETR [facility] [id number] Univers 15:00:00 15:00:00 [facility] 2019-04-15 2019-04-15 [facility] [id number] Univers 13:30:00 13:55:57 [facility] Results Test Description Test Time Test Comments Results Result Comments Source TROPONIN I 2022-08-28 03:10:18 Test Item Value Reference Range Interpretation Comme nts TROPONIN I (test code = 1120217438) 0.013 ng/mL <=0.034 KHADRA (test code = [...] biotin. Lab Interpretation (test code = Normal 35694-1) [facility] [id number] 03:07:17 Test Item Value Reference Range Interpretation Comments NT-proBNP (test code = 149 pg/mL <=450 1245338446) KHADRA (test code = KHADRA) Biotin has been reported to cause a negative bias, interpret results relative to patient's use of biotin. Lab Interpretation (test Normal code = 57202-8) [facility] Taylor[facility]IV[facility] PARTIAL THRMPLAS [id number] 03:03:18 Test Item Value Reference Range Interpretation Comments APTT Patient (test 25 See_Comment [Automat ed code = 3173-2) message] The system which generated this result transmitted reference range : 23 - 38 Seconds . The reference range was not used to interpr et this result as normal/abnormal . KHADRA (test code = KHADRA) The [facility] patient population mean normal value for aPTT is 30 seconds. Lab Interpretation Normal (test code = 92112-9) [facility] Taylor[facility]. METABOLIC PANEL (24689)2022-08-28 03:02:17 Test Item Value Reference Range Interpretation Comments NA (test code = 136 mmol/L 135-145 4180608194) K (test code = 5.2 mmol/L 3.5-5.0 H 0603671316) CL (test code = 99 mmol/L 98-108 4443955009) CO2 TOTAL (test code = 27 mmol/L 23-31 7833401471) AGAP (test code = 10 2-16 6496650473) BUN (test code = 36 mg/dL 7-23 H 9185890498) GLUCOSE (test code = 288 mg/dL 70-110 H 4816229670) CREATININE (test code = 1.97 mg/dL 0.60-1.25 H 8811322923) TOTAL BILI (test code = 0.8 mg/dL 0.1-1.5 3392226713) CALCIUM (test code = 9.0 mg/dL 8.6-10.6 0757655741) T PROTEIN (test code = 7.1 g/dL 6.3-8.2 7578119137) ALBUMIN (test code = 4.0 g/dL 3.5-5.0 5506587039) ALK PHOS (test code = 80 U/L 34-122 4859471838) ALTv (test code = 25 U/L 5-50 1742-6) AST(SGOT) (test code = 22 U/L 13-40 5958027687) eGFR (test code = 32.8 mL/min/1.73m2 3625401000) KHADRA (test code = KHADRA) Association of [...] tests). Lab Interpretation Abnormal (test code = 42766-4) [facility] Taylor[facility]thrombin Time / [id number] 03:01:16 Test Item Value Reference Range Interpretation Comments PROTIME PATIENT (test 13.3 See_Comment [Auto mated message] code = 5964-2) The system [employer] generated this result transmitted ref erence range: 12.0 - 1 4.7 Seconds. The re ference range was not u sed to interpret this result as normal/abnor mal. INR (test code = 6301-6) 1.1 Nor mal INR <1.1; Warfarin Therap eutic range 2.0 to 3. 0 or 2.5 to 3.5, dep ending upon the indica tions. Lab Interpretation (test Normal code = 58342-7) [facility] WITH [id number] 02:52:37 Test Item Value Reference Range Interpretation Comments WBC (test code = 9.75 See_Comment [Automated message] 4887-2) The system [employer] generated this result transmitted ref erence range: 4.20 - 1 0.70 10*3/?L. The re ference range was not u sed to interpret this result as normal/abnor mal. RBC (test code = 4.60 See_Comment [Automated message] 859-8) The system [employer] generated this result transmitted ref erence range: [...] RDW-SD (test code 46.9 fL 38.5-51.6 = 44527-1) RDW-CV (test code 14.6 % 12.1-15.4 = 788-0) PLT (test code = 203 See_Comment [Automated message] 987-3) The system [employer] generated this result transmitted ref erence range: 150 - 32 8 10*3/?L. The re ference range was not u sed to interpret this result as normal/abnor mal. MPV (test code = 10.0 fL 9.8-13.0 32949-0) NRBC/100 WBC (test 0.0 See_Comment [Automat ed message] code = 8322268376) The [employer] which generated this result transmitted ref erence range: 0.0 - 10 .0 /100 WBCs. The refer ence range was not u sed to interpret this result as normal/abnor mal. NRBC x10^3 (test See_Comment [Automated message] code = 4895522335) The syste m which generated this result transmitted ref erence range: 10*3/?L. The reference range was not used to interpr et this result as normal/abnormal . GRAN MAT (NEUT) % 70.9 % (test code = 770-8) IMM GRAN % (test 0.60 % code = 4756596407) LYMPH % (test code 14.9 % = 736-9) MONO % (test code 10.2 % = 5905-5) EOS % (test code = 2.8 % 713-8) BASO % (test code 0.6 % = 706-2) GRAN MAT 6.92 10*3/uL 1.99-6.95 x10^3(ANC) (test code = 1389147642) IMM GRAN x10^3 0.06 10*3/uL 0.00-0.06 (test code = 2094096537) LYMPH x10^3 (test 1.45 10*3/uL 1.09-3.23 code = 731-0) MONO x10^3 (test 0.99 10*3/uL 0.36-1.02 code = 742-7) EOS x10^3 (test 0.27 10*3/uL 0.06-0.53 code = 711-2) BASO x10^3 (test 0.06 10*3/uL 0.01-0.09 code = 704-7) [facility] and Screen - ONCE [id number] 02:40:00 Test Item Value Reference Range Interpretation Comments ABO & RH (test code = 20) A Negative IAT (test code = 1185) Negative [facility]
[2022-09-28 11:49] LABS: Absolute Lymphocytes (CBC) 1.2 K/uL (0.7-4.9); Hematocrit 37.6 % (39.6-49.0); MCV 89.2 fL (80-100); MPV 8.6 fL (7.6-11.3); Platelets 152 thou/uL (152-406); RBC Red Blood Cell Count 4.21 M/uL (4.33-5.43)
[2022-09-28] MEDS ORDERED: ASPIRIN 81 MG CHEWABLE TABLET ONE (11:49)
[2022-09-28] MEDS ORDERED: ONDANSETRON 4 MG/2 ML VIAL ONE (11:49)
[2022-09-28] MEDS ORDERED: FUROSEMIDE 40 MG/4 ML VIAL ONE (11:50)
[2022-09-28] MEDS ORDERED: NITROGLYCERIN 0.4 MG/TAB SL ONE (11:50)
[2022-09-28 12:08] LABS: Bilirubin Direct 0.1 mg/dL (0-0.2); Bilirubin Indirect, Calculated 0.3 mg/dL (0.2-0.8); Bilirubin Total 0.4 mg/dL (0.2-1.0); Magnesium 2.4 mg/dL (1.6-2.4); Protein, Total 7.2 g/dL (6.4-8.2)
[2022-09-28 12:21] LABS: Troponin High Sensitivity 199.8 pg/mL (<58.9)
--- NOTE | 2022-09-28 12:36 | RAD REPORT ---
EXAM DESCRIPTION: Alida Single View09/28/2022 12:22 pm CLINICAL HISTORY: Chest pain COMPARISON: September 22, 2022 FINDINGS: The lungs appear clear of acute infiltrate. The heart is borderline enlarged IMPRESSION: No acute abnormalities displayed
--- NOTE | 2022-09-28 12:56 | P.HP ---
Certification for Inpatient Patient admitted to: Observation With expected LOS: <2 Midnights Patient will require the following post-hospital care: None Practitioner: I am a practitioner with admitting privileges, knowledge of patient current condition, hospital course, and medical plan of care. Services: Services provided to patient in accordance with Admission requirements found in Title 42 Section 412.3 of the Code of Federal Regulations Patient History Date of Service: 09/28/22 Reason for admission: Elevated Troponin History of Present Illness: Mr. Erika Sharif is an 82 year old male with a past medical history significant for chronic diastolic congestive heart failure, chronic kidney disease stage IV, type II diabetes mellitus, gout, dyslipidemia, and gastroesophageal reflux disease who presents to the [facility] Emergency Department for chest pain. He was recently admitted to our hospital and discharged on 09/10/2022 to [facility]. He reports that he was discharged home from [place] on 09/26/2022. Since discharge, he states that he has been experiencing intermittent episodes of chest discomfort. He states that the pain is midsternal. He describes it as a pressure and grades it a "22/10" in severity. He denies any obvious inciting or alleviating factors. He has not tried taking any medications for symptoms. On review of systems, he reports shortness of breath, but denies any fevers, chills, headaches, dizziness, syncope, weakness, palpitations, wheezing, cough, abdominal pain, nausea/vomiting, diarrhea, constipation, hematochezia, melena, dysuria, hematuria, myalgia, or any other symptoms. He presented to the Emergency Department for further evaluation. Upon presentation, his vital signs were stable. His laboratory studies were notable for a creatinine of 2.23 (near baseline), a glucose of 373, and an initial troponin of 199.8. His EKG was without STEMI criteria. His chest x-ray revealed, "No acute abnormalities displayed." Cardiology (Dr. Garcia) was consulted in the Emergency Department, and recommendations are pending. In the Emergency Department, he was given aspirin, ondansteron, nitroglycerin, and furosemide. He was admitted to the General Internal Medicine service for further evaluation. Allergies zolpidem [Zolpidem] Allergy (Verified 02/04/21 22:39) Delusions Home medications list reviewed: Yes Home Medications: Atorvastatin Calcium [Lipitor*] 40 mg PO BEDTIME 01/17/15 Enalapril Maleate [Vasotec] 1 tab PO DAILY 01/17/15 Esomeprazole Magnesium [Nexium] 20 mg PO DAILY 01/17/15 Insulin Glargine,Hum.rec.anlog [Lantus] 50 unit SQ BEDTIME 01/17/15 Insulin Lispro [Humalog Kwikpen U-100] 40 unit SQ AC 01/17/15 Metoprolol Tartrate [Lopressor] 1 tab PO BID 01/17/15 Montelukast Sodium 1 tab PO DAILY 01/17/15 Pregabalin [Lyrica*] 1 cap PO TID 01/17/15 Tamsulosin HCl [Flomax] 1 cap PO DAILY 01/17/15 allopurinoL [Zyloprim*] 1 tab PO DAILY 01/17/15 Escitalopram [Lexapro*] 10 mg PO DAILY 03/09/21 Cholecalciferol (Vitamin D3) [Vitamin D3] 4,000 unit PO DAILY #60 capsule 03/10/21 predniSONE [Prednisone*] 20 mg PO BID #15 tab 03/10/21 Spironolactone [Aldactone*] 25 mg PO DAILY tab 09/10/22 Torsemide [Demadex*] 40 mg PO DAILY tab 09/10/22 - Past Medical/Surgical History Diabetic: Yes -: skin cancer -: [place] disease, COPD, asthma, High cholesterol. -: HYPERLIPIDEMIA -: CKD III with Proteinuria (Dr. Escalona) -: SPINAL STENOSIS -: GOUT -: DELMY/ Asthma -: IN/ cardiac Stent x 3 -: DM II with Polyneuropathy -: ASTHMA -: HTN -: CHF -: cardiac Stent x 3 -: Operation lower back -: Left Hand nerve damage -: skin Cancer removal back and neck -: Left arm surgery -: hernia repair -: Cholecystectomy - Family History Father -: Heart disease Notes: IN Mother -: Heart disease, Hypertension Notes: bypass Brother -: Heart disease Notes: 4X BYPASS - Social History Alcohol use: No CD- Drugs: No Caffeine use: No Review of Systems General: Unremarkable Eyes: Unremarkable ENT: Unremarkable Respiratory: Shortness of Breath Cardiovascular: Chest Pain Gastrointestinal: Unremarkable Genitourinary: Unremarkable Musculoskeletal: Unremarkable Integumentary: Unremarkable Neurological: Unremarkable Lymphatics: Unremarkable Physical Examination - Vital Signs Blood Pressure: 132/68 Pulse: 80 Respirations: 18 Pulse Ox (%): 95 - Physical Exam General: Alert, In no apparent distress, Oriented x3 HEENT: Atraumatic, Mucous membr. moist/pink, Sclerae nonicteric Neck: JVD not distended Respiratory: Clear to auscultation bilaterally, Diminished Cardiovascular: Regular rate/rhythm, Normal S1 S2, No gallops, No rubs, No murmurs, Edema (2+ BLE) Gastrointestinal: Normal bowel sounds, Soft and benign, Non-distended, No tenderness, No rebound, No guarding Musculoskeletal: No clubbing Integumentary: Erythema (multiple scratches with significant erythema on bilateral shins) Neurological: Normal speech, Normal affect - Studies Laboratory Data (last 24 hrs) 09/28/22 09/28/22 11:40 11:40 WBC 7.20 Hgb 12.0 L Hct 37.6 L Plt Count 152 Sodium 136 Potassium 5.0 BUN 40 H Creatinine 2.23 H Glucose 373 H Magnesium 2.4 Total Bilirubin 0.4 AST 17 ALT 27 Alkaline Phosphatase 64 Assessment and Plan - Plan # Chest Pain, concern for Acute Coronary Syndrome (Non-ST Segment Elevation Myocardial Infarction) # Dyslipidemia - Evaluation thus far: - EKG: without STEMI criteria, trend - Serial troponin: first was 199.8 - Transthoracic echocardiogram (09/03/2022) = "1. poor windows 2. left ventricular ejection fraction is normal 55-60% 3. diastolic dysfunction (grade I)" - Chest x-ray = "no acute abnormalities displayed." - Ordered d-dimer - Management plan: - Consult Cardiology and Dr. Barrera notified Dr. Garcia - recommendations appreciated - S/P aspirin 324 mg PO x 1 in ED - Start daily baby aspirin - Continue atorvastatin, metoprolol, enalapril, heparin drip # Bilateral Lower Extremity Cellulitis - He has multiple scratches on his legs, which he reports are due to cat scratches - Does not meet sepsis criteria - Started ceftriaxone + doxycycline # Hyperglycemia in Type II Diabetes Mellitus complicated by Peripheral Neuropathy - Continue insulin # Chronic Compensated Diastolic Congestive Heart Failure with Preserved Ejection Fraction - Consult Cardiology - recommendations appreciated - Transthoracic echocardiogram = "1. poor windows 2. left ventricular ejection fraction is normal 55-60% 3. diastolic dysfunction (grade I)" - Continue home torsemide, metoprolol, spironolactone - Daily weights - Strict I/O - Cardiac diet, 2 L fluid restriction, 2 g Na restriction # Chronic Kidney Disease Stage IV - Nephrology consulted and spoke with Dr. Barrios - recommendations appreciated - Creatinine = 2.23 (near baseline) - Urinalysis = 4+ glucose - Monitor creatinine and urine output - If worsening, obtain renal ultrasound - Renally dose medications # Gout - Continue home allopurinol # Gastroesophageal Reflux Disease - Continue home pantoprazole Yanick Kitchen M.D. - Advance Directives Does patient have a Living Will: No Does patient have a Durable POA for Healthcare: No
--- NOTE | 2022-09-28 12:57 | ER ---
Nurse's Notes [facility] Name: Erika Sharif Age: 82 yrs Sex: Male : 1940 Arrival Date: 09/28/2022 Time: 11:20 Bed 2 Private MD: Diagnosis: Subsequent non-ST elevation (NSTEMI) myocardial infarction Presentation: 09/28 11:20 Chief complaint: Patient states: PATIENT ARRIVED TO ER COMPLAINING OF CHEST PAIN AND db SOB WORSE THIS AM. Coronavirus screen: Client denies travel out of the [place] in the last 14 days. At this time, the client does not indicate any symptoms associated with coronavirus-19. Ebola Screen: Patient negative for fever greater than or equal to 101.5 degrees Fahrenheit, and additional compatible Ebola Virus Disease symptoms Patient denies exposure to infectious person. Patient denies travel to an Ebola-affected area in the 21 days before illness onset. No symptoms or risks identified at this time. Initial Sepsis Screen: Does the patient meet any 2 criteria? No. Patient's initial sepsis screen is negative. Does the patient have a suspected source of infection? No. Patient's initial sepsis screen is negative. Risk Assessment: Do you want to hurt yourself or someone else? Patient reports no desire to harm self or others. Onset of symptoms was September 28, 2022. 11:20 Method Of Arrival: Wheelchair db 11:20 Acuity: PEEWEE 2 db Triage Assessment: 11:20 General: Appears uncomfortable, Behavior is cooperative. db Historical: - Allergies: 12:58 zolpidem; db - PMHx: 12:58 CHF; COPD; Diabetes - IDDM; Gout; kidney failure; Myocardial infarction; neuropathy; db pleural effusion; - PSHx: 12:58 arm; back; Cholecystectomy; db - Immunization history:: Adult Immunizations unknown. - Social history:: Smoking status: Patient denies any tobacco usage or history of. - Family history:: not pertinent. Screenin:00 [facility] ED Fall Risk Assessment (Adult) History of falling in the last 3 months, db including since admission Yes- single mechanical fall (1 pt) Confusion or Disorientation No (0 pts) Intoxicated or Sedated No (0 pts) Impaired Gait Yes (1 pt) Mobility Assist Device Used Yes (1 pt) Altered Elimination No (0 pt) Score/Fall Risk Level 3 or more points = High Risk Oriented to surroundings, Maintained a safe environment. Abuse screen: Denies threats or abuse. Denies injuries from another. Nutritional screening: No deficits noted. Tuberculosis screening: No symptoms or risk factors identified. Assessment: 11:30 Reassessment: Patient appears in no apparent distress at this time. Patient and/or db family updated on plan of care and expected duration. Pain level reassessed. Patient is alert, oriented x 3, equal unlabored respirations, skin warm/dry/pink. Neuro: Level of Consciousness is awake, alert, obeys commands, Oriented to person, place, time, situation. Cardiovascular: Reports chest pain, shortness of breath, Capillary refill < 3 seconds. Derm: Wound noted right leg and left leg Other: cat scratches to bilateral lower legs. 12:57 Reassessment: Patient appears in no apparent distress at this time. Patient and/or db family updated on plan of care and expected duration. Pain level reassessed. Patient is alert, oriented x 3, equal unlabored respirations, skin warm/dry/pink. Reassessment: Patient states feeling better. Patient states symptoms have improved. General: Appears in no apparent distress. comfortable, Behavior is calm, cooperative. Pain: Complains of pain in chest. 14:00 Reassessment: Patient appears in no apparent distress at this time. Patient and/or db family updated on plan of care and expected duration. Pain level reassessed. Patient is alert/active/playful, equal unlabored respirations, skin warm/dry/pink. 15:00 Reassessment: Patient appears in no apparent distress at this time. Patient and/or db family updated on plan of care and expected duration. Pain level reassessed. Patient is alert, oriented x 3, equal unlabored respirations, skin warm/dry/pink. 16:50 Reassessment: Patient appears in no apparent distress at this time. Patient and/or db family updated on plan of care and expected duration. Pain level reassessed. Patient is alert, oriented x 3, equal unlabored respirations, skin warm/dry/pink. Patient states feeling better. 17:30 Reassessment: ATTEMPTED TO CALL THE FLOOR FOR REPORT. NO ANSWER. db 17:31 Reassessment: REPORT CALLED TO 4TH FLOOR KAMI VEGA. db Vital Signs: 11:20 BP 154 / 77; Pulse 92; Resp 18; Temp 98; Pulse Ox 98% on R/A; db 12:00 BP 123 / 59; Pulse 85; Resp 18; Pulse Ox 96% on R/A; db 12:30 BP 132 / 68; Pulse 80; Resp 18; Temp 98(O); Pulse Ox 95% ; db 13:44 Weight 149.69 kg; db 15:00 BP 148 / 74; Pulse 71; Resp 16; Pulse Ox 98% on R/A; db 16:00 BP 161 / 84; Pulse 70; Resp 16; Pulse Ox 97% on R/A; db 17:35 BP 170 / 92; Pulse 71; Resp 18; Pulse Ox 95% on R/A; db ED Course: 11:20 Arm band placed on Patient placed in an exam room. db 11:21 Patient arrived in ED. eb 11:26 Andrea Barrera MD is Attending Physician. rt 11:37 Sherry Philippe, KAMI is Primary Nurse. db 11:38 Inserted saline lock: 18 gauge in right antecubital area, using aseptic technique. db Blood collected. 12:24 XRAY Chest (1 view) In Process Unspecified. EDMS 12:38 [place] cath inserted, using sterile technique, 16 Fr., by me, balloon inflated, urine db specimen collected. 12:56 Yanick Kitchen MD is Hospitalizing Provider. rt 13:00 Triage completed. db 13:00 Patient has correct armband on for positive identification. Bed in low position. Call db light in reach. Side rails up X 1. Client placed on continuous cardiac and pulse oximetry monitoring. NIBP monitoring applied. Warm blanket given. 17:36 No provider procedures requiring assistance completed. Patient admitted, IV remains in db place. 17:36 Provided Education on: ADMISSION. db Administered Medications: 11:42 Drug: Aspirin PO Chewable Tablet 324 mg Route: PO; vg1 17:38 Follow up: Response: No adverse reaction db 11:42 Drug: Furosemide IVP 40 mg Route: IVP; Site: right antecubital; vg1 17:38 Follow up: Response: No adverse reaction db 11:43 Drug: Nitroglycerin Sublingual 0.4 mg Route: Sublingual; vg1 17:39 Follow up: Response: No adverse reaction db 11:45 Drug: Ondansetron IVP 4 mg Route: IVP; Site: right antecubital; vg1 17:38 Follow up: Response: No adverse reaction db 14:16 Drug: Insulin Regular Human IVP 10 units {Co-Signature: vg1 (Jeannine Fall RN).} kc6 Route: IVP; Site: right antecubital; 17:38 Follow up: Response: No adverse reaction db 15:22 Drug: Heparin (AR-Bolus No thrombolytic) - HEParin IVP 60 units/kg {Co-Signature: kc6 db (Tanya Schreiber RN).} Route: IVP; Site: right antecubital; 17:38 Follow up: Response: No adverse reaction db 15:23 Drug: Heparin (AR Drip) - (D5W IV 500 ml, [place] [address] units) 12 units/kg/hr db {Co-Signature: kc6 (Tanya Schreiber RN).} Route: IV; Rate: calculated rate; Site: right antecubital; 17:38 Follow up: Response: No adverse reaction; IV Status: Infusion continued upon admission db Medication: 17:36 VIS not applicable for this client. db Point of Care Testing: Blood Glucose: 13:44 Blood Glucose: 340 mg/dL; db Ranges: Outcome: 12:57 Decision to Hospitalize by Provider. rt 17:36 Admitted to ER Hold. Please see [facility] for further documentation. db 17:36 Condition: stable 17:36 Instructed on the need for admit. 17:50 Patient left the ED. db Signatures: Dispatcher [employer] EDLennie Asher Victoria, RN RN vg1 Tanya Schreiber RN RN sg6 Sherry Philippe RN RN Andrea Lester MD MD rt Tanya Schreiber RN6 Jeannine Fall RN vg1
--- NOTE | 2022-09-28 12:57 | EDPHYS ---
Physician Documentation [facility] Name: Erika Sharif Age: 82 yrs Sex: Male : 1940 Arrival Date: 09/28/2022 Time: 11:20 Bed 2 Private MD: ED Physician Andrea Barrera HPI: 09/28 15:50 This 82 yrs old Male presents to ER via Wheelchair with complaints of Chest Pain > 30 rt y/o. 15:50 Patient presents to the ED with chest pain shortness of breath, intermittent since last rt night but worsening today. He does have a history of coronary artery disease. Patient denies other acute complaints at this time. Symptoms are severe in severity, no other aggravating or alleviating factors.. Historical: - Allergies: 12:58 zolpidem; db - PMHx: 12:58 CHF; COPD; Diabetes - IDDM; Gout; kidney failure; Myocardial infarction; neuropathy; db pleural effusion; - PSHx: 12:58 arm; back; Cholecystectomy; db - Immunization history:: Adult Immunizations unknown. - Social history:: Smoking status: Patient denies any tobacco usage or history of. - Family history:: not pertinent. ROS: 15:50 Constitutional: Negative for fever, chills, and weight loss, Neck: Negative for injury, rt pain, and swelling, Abdomen/GI: Negative for abdominal pain, nausea, vomiting, diarrhea, and constipation, MS/Extremity: Negative for injury and deformity, Skin: Negative for injury, rash, and discoloration, Neuro: Negative for headache, weakness, numbness, tingling, and seizure, Psych: Negative for depression, anxiety, suicide ideation, homicidal ideation, and hallucinations. 15:50 Cardiovascular: Positive for chest pain, edema. 15:50 Respiratory: Positive for shortness of breath, Negative for cough. Exam: 15:50 Head/Face: Normocephalic, atraumatic. Neck: Trachea midline, no thyromegaly or masses rt palpated, and no cervical lymphadenopathy. Supple, full range of motion without nuchal rigidity, or vertebral point tenderness. No Meningismus. Chest/axilla: Normal chest wall appearance and motion. Nontender with no deformity. No lesions are appreciated. Cardiovascular: Regular rate and rhythm with a normal S1 and S2. No gallops, murmurs, or rubs. Normal PMI, no JVD. No pulse deficits. Respiratory: Lungs have equal breath sounds bilaterally, clear to auscultation and percussion. No rales, rhonchi or wheezes noted. No increased work of breathing, no retractions or nasal flaring. Abdomen/GI: Soft, non-tender, with normal bowel sounds. No distension or tympany. No guarding or rebound. No evidence of tenderness throughout. Neuro: Awake and alert, GCS 15, oriented to person, place, time, and situation. Cranial nerves II-XII grossly intact. Motor strength 5/5 in all extremities. Sensory grossly intact. Cerebellar exam normal. Normal gait. Psych: Awake, alert, with orientation to person, place and time. Behavior, mood, and affect are within normal limits. 15:50 Constitutional: The patient appears obese, in obvious distress. 15:50 ECG was reviewed by the Attending Physician. 15:50 Musculoskeletal/extremity: 4+ edema bilateral lower extremity. Vital Signs: 11:20 BP 154 / 77; Pulse 92; Resp 18; Temp 98; Pulse Ox 98% on R/A; db 12:00 BP 123 / 59; Pulse 85; Resp 18; Pulse Ox 96% on R/A; db 12:30 BP 132 / 68; Pulse 80; Resp 18; Temp 98(O); Pulse Ox 95% ; db 13:44 Weight 149.69 kg; db 15:00 BP 148 / 74; Pulse 71; Resp 16; Pulse Ox 98% on R/A; db 16:00 BP 161 / 84; Pulse 70; Resp 16; Pulse Ox 97% on R/A; db 17:35 BP 170 / 92; Pulse 71; Resp 18; Pulse Ox 95% on R/A; db MDM: 11:27 Patient medically screened. rt 15:50 Differential diagnosis: abnormal EKG, acute myocardial infarction, coronary artery rt disease chest wall pain, congestive heart failure pulmonary embolus, unstable angina. HEART Score: History: Highly Suspicious (2), ECG: Significant ST-deviation (2), Age: > or = 65 years (2), Risk Factors: > or = 3 Risk factors for atherosclerotic disease (2), Troponin: > or = 3 x Normal Limit (2), Total Score = 12. The patient was not given aspirin in the Emergency Department. Patient reports taking aspirin within the past 24 hours. Data reviewed: vital signs, nurses notes. Consideration of Admission/Observation Patient was admitted/placed on observation. Management of patient was discussed with the following: Rubber Stamp Assembler: Discussed with victim witness administrator, will cath patient. I considered the following discharge prescriptions or medication management in the emergency department Medications were administered in the Emergency Department. See MAR. Independent interpretation of the following test(s) in the Emergency Department X-Ray: My interpretation is No consolidation seen on interpretation of the x-ray. Test considered but Not performed: CT: Low suspicion for PE, CT angiogram not indicated. Care significantly affected by the following chronic conditions: Diabetes, Congestive Heart Failure. Counseling: I had a detailed discussion with the patient and/or guardian regarding: the historical points, exam findings, and any diagnostic results supporting the discharge/admit diagnosis, lab results, radiology results, the need for further work-up and treatment in the hospital. 09/28 11:34 Order name: Basic Metabolic Panel; Complete Time: 12:29 rt 09/28 11:34 Order name: CBC with Diff; Complete Time: 12:29 rt 09/28 11:34 Order name: LFT's; Complete Time: 12:29 rt 09/28 11:34 Order name: Magnesium; Complete Time: 12:29 rt 09/28 11:34 Order name: NT PRO-BNP; Complete Time: 12:29 rt 09/28 11:34 Order name: Troponin HS; Complete Time: 12:29 rt 09/28 12:43 Order name: UAM; Complete Time: 13:03 rt 09/28 13:45 Order name: Troponin High Sensitivity EDMO 09/28 13:45 Order name: Troponin High Sensitivity EDMO 09/28 13:45 Order name: Troponin High Sensitivity EDMO 09/28 13:46 Order name: Ptt, Activated; Complete Time: 16:33 kc6 09/28 13:53 Order name: D-Dimer EDMS 09/28 13:54 Order name: Glucose, Ancillary Testing; Complete Time: 16:33 EDMS 09/28 14:33 Order name: D-Dimer; Complete Time: 16:33 EDMS 09/28 17:24 Order name: Protime (+INR) EDMO 09/28 11:34 Order name: XRAY Chest (1 view); Complete Time: 12:43 rt 09/28 16:24 Order name: US; Complete Time: 16:33 EDMS 09/28 11:34 Order name: EKG; Complete Time: 11:35 rt 09/28 11:34 Order name: Cardiac monitoring; Complete Time: 11:38 rt 09/28 11:34 Order name: EKG - Nurse/Tech; Complete Time: 11:37 rt 09/28 11:34 Order name: IV Saline Lock; Complete Time: 11:49 rt 09/28 11:34 Order name: Labs collected and sent; Complete Time: 11:49 rt 09/28 11:34 Order name: O2 Per Protocol; Complete Time: 11:38 rt 09/28 11:34 Order name: O2 Sat Monitoring; Complete Time: 11:38 rt EC:50 Rate is 88 beats/min. Rhythm is regular, Normal Sinus Rhythm with No ectopy. QRS [place] rt is Normal. MA interval is normal. QRS interval is normal. QT interval is normal. Administered Medications: 11:42 Drug: Aspirin PO Chewable Tablet 324 mg Route: PO; vg1 17:38 Follow up: Response: No adverse reaction db 11:42 Drug: Furosemide IVP 40 mg Route: IVP; Site: right antecubital; vg1 17:38 Follow up: Response: No adverse reaction db 11:43 Drug: Nitroglycerin Sublingual 0.4 mg Route: Sublingual; vg1 17:39 Follow up: Response: No adverse reaction db 11:45 Drug: Ondansetron IVP 4 mg Route: IVP; Site: right antecubital; vg1 17:38 Follow up: Response: No adverse reaction db 14:16 Drug: Insulin Regular Human IVP 10 units {Co-Signature: vg1 (Jeannine Fall RN).} kc6 Route: IVP; Site: right antecubital; 17:38 Follow up: Response: No adverse reaction db 15:22 Drug: Heparin (OH-Bolus No thrombolytic) - HEParin IVP 60 units/kg {Co-Signature: kc6 db (Tanya Schreiber RN).} Route: IVP; Site: right antecubital; 17:38 Follow up: Response: No adverse reaction db 15:23 Drug: Heparin (OH Drip) - (D5W IV 500 ml, [place] [address] units) 12 units/kg/hr db {Co-Signature: kc6 (Schreiber, Tanya RN).} Route: IV; Rate: calculated rate; Site: right antecubital; 17:38 Follow up: Response: No adverse reaction; IV Status: Infusion continued upon admission db Point of Care Testing: Blood Glucose: 13:44 Blood Glucose: 340 mg/dL; db Ranges: Critical Glucose Levels:Adult <50 mg/dl or >400 mg/dl <40 mg/dl or >180 mg/dl Disposition: 15:50 Critical Care:. rt Disposition Summary: 09/28/22 12:57 Hospitalization Ordered Hospitalization Status: Inpatient Admission rt Provider: Yanick Kitchen rt Location: Telemetry/MedSurg (Inpatient) rt Condition: Stable rt Problem: new rt Symptoms: have improved rt Bed/Room Type: Standard rt Room Assignment: 429(09/28/22 17:18) eb Diagnosis - Subsequent non-ST elevation (NSTEMI) myocardial infarction rt Forms: - Medication Reconciliation Form rt - SBAR form rt Critical care time excluding procedures: 15:50 Critical care time: Bedside Care: 30 minutes, Consultation: 10 minutes. Total time: 40 rt minutes Signatures: Dispatcher [employer] EDMS Lennie Infante Victoria, RN RN vg1 Tanya Schreiber RN RN kc6 Sherry Philippe RN RN db Andrea Barrera MD MD rt Tanya Schreiber RN kc6 Jeannine Fall RN vg1 Corrections: (The following items were deleted from the chart) 17:18 12:57 rt eb
[2022-09-28 13:02] LABS: Specific Gravity 1.008 (1.005-1.030); Urine Bacteria None Seen /HPF (<20); Urine Bilirubin NEGATIVE (Negative); Urine Blood Negative (Negative); Urine Clarity Clear (Clear); Urine Color Colorless (Yellow); Urine Glucose 4+ (Negative); Urine Protein NEGATIVE (Negative); Urine RBC <5 /HPF (None Seen); Urine Urobilinogen Normal (Normal)
[2022-09-28] MEDS ORDERED: HEPARIN/D5W 25,000 UNIT/500 ML BAG IV ONE (13:49)
[2022-09-28] MEDS ORDERED: HEPARIN 5000 UNIT/ML 1 ML VIAL ONE (13:49)
[2022-09-28] MEDS ORDERED: INSULIN -REGULAR HUMAN 50 UNIT/0.5 ML ML ONE (13:58)
[2022-09-28] MEDS: CEFTRIAXONE 1,000 MG in NA CHLORIDE 0.9% 50 ML IVPB SCH ×2 (14:30→20:39)
[2022-09-28] MEDS: DOXYCYCLINE 100 MG in NA CHLORIDE 0.9% 100 ML IVPB SCH ×3 (14:30→21:33)
--- NOTE | 2022-09-28 16:22 | P.PN ---
Brief Renal note (chart review only, full consult note to follow by NLA team) Pt known to Dr. Escalona, see his recent consultation note from last month for details. 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 Pt presented with NSTEMI, troponin leak. If there are plans for LHC, risk for PAVITHRA will be moderate. Recommend temp holding ACEi, spironlactone and loop diuretics and will place on NAC and gentle NS IVF. If there are no plans for angiogram, will d/c IVF early on. CXR on admission showed clear lungs and BNP is < 1000 so pt should be to handle monica-procedural hydration but can also f/u on LVEDP on LHC to further guide management. Kayden Barrios MD, ANAYA
--- NOTE | 2022-09-28 16:23 | RAD REPORT ---
EXAM DESCRIPTION: USExtrem Venous W Compress Bil09/28/2022 3:44 pm CLINICAL HISTORY: Leg pain/elevated D-dimer COMPARISON: 2013 FINDINGS: The common femoral, superficial femoral, greater saphenous, popliteal and posterior tibial veins bilaterally are compressible and demonstrate augmentation. Doppler demonstrates good flow. Grayscale, color and spectral analysis performed on all vessels IMPRESSION: No evidence of deep venous thrombosis involving either lower extremity.
[2022-09-28] MEDS: ACETYLCYST 6,000 MG/30 ML VIAL PO SCH (17:00)
[2022-09-28] MEDS: NA CHLORIDE 0.9% 1,000 ML IV SCH ×2 (17:00→20:31)
[2022-09-28 17:24] LABS: Protime INR 0.99
[2022-09-28 18:15] VITALS: BMI 49.0
[2022-09-28] MEDS: HEPARIN/D5W 25,000 UNIT/500 ML BAG IV PRN (18:31)
[2022-09-28] MEDS: METOPROLOL TAR 50 MG TAB PO SCH (19:24)
[2022-09-28] MEDS: MORPHINE 2 MG/ML SYR IV PRN (20:32)
[2022-09-28] MEDS ORDERED: HEPARIN 5000 UNIT/ML 1 ML VIAL IV ONE (21:00)
[2022-09-28] MEDS: ONDANSETRON 4 MG/2 ML VIAL IV PRN (21:29)
[2022-09-28] MEDS: ATORVASTATIN 40 MG TAB PO SCH (21:41)
[2022-09-29 02:05] LABS: Absolute Lymphocytes (CBC) 1.9 K/uL (0.7-4.9); Hematocrit 34.4 % (39.6-49.0); MCV 88.2 fL (80-100); MPV 8.5 fL (7.6-11.3); Platelets 144 thou/uL (152-406); RBC Red Blood Cell Count 3.89 M/uL (4.33-5.43)
[2022-09-29 02:23] LABS: Albumin 2.8 g/dL (3.4-5.0); Bilirubin Total 0.3 mg/dL (0.2-1.0); Magnesium 2.2 mg/dL (1.6-2.4); Phosphorus 2.7 mg/dL (2.5-4.9); Potassium 4.6 mEq/L (3.5-5.1); Protein, Total 6.5 g/dL (6.4-8.2)
[2022-09-29] MEDS ORDERED: HEPARIN 5000 UNIT/ML 1 ML VIAL IV SCH ×2 (03:00→23:00)
[2022-09-29] MEDS: CEFTRIAXONE 1,000 MG in NA CHLORIDE 0.9% 50 ML IVPB SCH (08:22)
[2022-09-29] MEDS: ACETYLCYST 6,000 MG/30 ML VIAL PO SCH (09:00)
[2022-09-29] MEDS ORDERED: TORSEMIDE 20 MG TAB PO SCH (09:00)
[2022-09-29] MEDS ORDERED: ENALAPRIL 10 MG TAB PO SCH (09:00)
[2022-09-29] MEDS ORDERED: SPIRONOLACTONE 25 MG TABLET PO SCH (09:00)
[2022-09-29] MEDS: DOXYCYCLINE 100 MG in NA CHLORIDE 0.9% 100 ML IVPB SCH (09:09)
[2022-09-29] MEDS: ASPIRIN 81 MG CHEWABLE TABLET PO SCH (09:15)
[2022-09-29] MEDS: METOPROLOL TAR 50 MG TAB PO SCH ×2 (09:15→21:01)
[2022-09-29] MEDS: allopurinoL 100 MG TAB PO SCH (09:15)
[2022-09-29] MEDS: ACETYLCYST 20% 800 MG/4 ML VIAL PO SCH ×2 (10:13→21:01)
[2022-09-29] MEDS: HEPARIN/D5W 25,000 UNIT/500 ML BAG IV PRN ×2 (10:26→13:53)
[2022-09-29] MEDS: AMOX/K CLAV 875 MG TAB PO SCH ×2 (10:27→21:00)
[2022-09-29] MEDS: ONDANSETRON 4 MG/2 ML VIAL IV PRN (12:12)
--- NOTE | 2022-09-29 13:00 | EKG ---
Test Date: 2022-09-28 Test Time: 21:10:00 Diversional Therapist'S Assistant: RT-O MEASUREMENT RESULTS: Intervals: Rate: 79 DC: 166 QRSD: 82 QT: 376 QTc: 431 [place]: P: 50 DC: 166 QRS: 15 T: 81 INTERPRETIVE STATEMENTS: Normal sinus rhythm Low voltage QRS Nonspecific ST and T wave abnormality Abnormal ECG Compared to ECG 09/22/2022 11:09:53 Low QRS voltage now present ST (T wave) deviation now present Sinus bradycardia no longer present Electronically Signed On 09-29-22 12:58:54 CDT by Zurdo Garcia
[2022-09-29] MEDS ORDERED: GLUCAGON 1 MG/VIAL IM PRN (13:21)
[2022-09-29] MEDS ORDERED: D50W 25 GM/50 ML SYRINGE IV PRN (13:21)
[2022-09-29] MEDS: INSULIN -REGULAR HUMAN 50 UNIT/0.5 ML ML SQ SCH ×2 (13:38→16:32)
--- NOTE | 2022-09-29 14:00 | P.CNS ---
Date of Consult: 09/29/22 Reason for Consult: MANAV/ CKD Requesting Physician: Yanick Kitchen Chief Complaint: Elevated Troponin History of Present Illness: Mr. Erika Sharif is an 82 year old male with a past medical history significant for chronic diastolic congestive heart failure, chronic kidney disease stage IV, type II diabetes mellitus, gout, dyslipidemia, and gastroesophageal reflux disease who presents to the [facility] Emergency Department for chest pain. He was recently admitted to our hospital and discharged on 09/10/2022 to [facility]. He reports that he was discharged home from [place] on 09/26/2022. Since discharge, he states that he has been experiencing intermittent episodes of chest discomfort. He states that the pain is midsternal. He describes it as a pressure and grades it a "22/10" in severity. He denies any obvious inciting or alleviating factors. He has not tried taking any medications for symptoms. On review of systems, he reports shortness of breath, but denies any fevers, chills, headaches, dizziness, syncope, weakness, palpitations, wheezing, cough, abdominal pain, nausea/vomiting, diarrhea, constipation, hematochezia, melena, dysuria, hematuria, myalgia, or any other symptoms. He presented to the Emergency Department for further evaluation. Upon presentation, his vital signs were stable. His laboratory studies were notable for a creatinine of 2.23 (near baseline), a glucose of 373, and an initial troponin of 199.8. His EKG was without STEMI criteria. His chest x-ray revealed, "No acute abnormalities displayed." Cardiology (Dr. Garcia) was consulted in the Emergency Department, and recommendations are pending. In the Emergency Department, he was given aspirin, ondansteron, nitroglycerin, and furosemide. He was admitted to the General Internal Medicine service for further evaluation. 15:50 This 82 yrs old Male presents to ER via Wheelchair with complaints of Chest Pain > 30 rt y/o. 15:50 Patient presents to the ED with chest pain shortness of breath, intermittent since last rt night but worsening today. He does have a history of coronary artery disease. Patient denies other acute complaints at this time. Symptoms are severe in severity, no other aggravating or alleviating factors.. Allergies zolpidem [Zolpidem] Allergy (Verified 02/04/21 22:39) Delusions Home medications list reviewed: Yes Home Medications: Atorvastatin Calcium [Lipitor*] 40 mg PO BEDTIME 01/17/15 Enalapril Maleate [Vasotec] 1 tab PO DAILY 01/17/15 Esomeprazole Magnesium [Nexium] 20 mg PO DAILY 01/17/15 Insulin Glargine,Hum.rec.anlog [Lantus] 50 unit SQ BEDTIME 01/17/15 Insulin Lispro [Humalog Kwikpen U-100] 40 unit SQ AC 01/17/15 Metoprolol Tartrate [Lopressor] 1 tab PO BID 01/17/15 Montelukast Sodium 1 tab PO DAILY 01/17/15 Pregabalin [Lyrica*] 1 cap PO TID 01/17/15 Tamsulosin HCl [Flomax] 1 cap PO DAILY 01/17/15 allopurinoL [Zyloprim*] 1 tab PO DAILY 01/17/15 Escitalopram [Lexapro*] 10 mg PO DAILY 03/09/21 Cholecalciferol (Vitamin D3) [Vitamin D3] 4,000 unit PO DAILY #60 capsule 03/10/21 predniSONE [Prednisone*] 20 mg PO BID #15 tab 03/10/21 Spironolactone [Aldactone*] 25 mg PO DAILY tab 09/10/22 Torsemide [Demadex*] 40 mg PO DAILY tab 09/10/22 - Past Medical/Surgical History Diabetic: Yes -: skin cancer -: [place] disease, COPD, asthma, High cholesterol. -: HYPERLIPIDEMIA -: CKD III with Proteinuria (Dr. Escalona) -: SPINAL STENOSIS -: GOUT -: DELMY/ Asthma -: [place]/ cardiac Stent x 3 -: DM II with Polyneuropathy -: ASTHMA -: HTN -: CHF -: cardiac Stent x 3 -: Operation lower back -: Left Hand nerve damage -: skin Cancer removal back and neck -: Left arm surgery -: hernia repair -: Cholecystectomy - Family History Father Medical History: Heart disease Notes: [place] Mother Medical History: Heart disease, Hypertension Notes: bypass Brother Medical History: Heart disease Notes: 4X BYPASS - Social History Smoking Status: Unknown if ever smoked Alcohol use: No CD- Drugs: No Caffeine use: Yes Place of Residence: Home Review of Systems 10-point ROS is otherwise unremarkable General: Weakness, Malaise Respiratory: SOB with Excertion Cardiovascular: Edema Physical Examination Temp Pulse Resp BP Pulse Ox 97.7 F 64 18 149/69 H 95 09/29/22 11:57 09/29/22 11:57 09/29/22 11:57 09/29/22 11:57 09/29/22 11:57 General: In no apparent distress, Oriented x3, Cooperative HEENT: Atraumatic Neck: Supple Respiratory: Diminished Cardiovascular: Regular rate/rhythm, Edema Gastrointestinal: Soft and benign, Non-distended Musculoskeletal: No clubbing, No contractures Integumentary: No rashes, No cyanosis, Skin lesion Neurological: Normal speech Urinary: Atwood catheter Blood work reviewed in the chart. Imagings Data: EXAM DESCRIPTION: RADChest Single View09/28/2022 12:22 pm CLINICAL HISTORY: Chest pain COMPARISON: September 22, 2022 FINDINGS: The lungs appear clear of acute infiltrate. The heart is borderline e nlarged IMPRESSION: No acute abnormalities displayed EXAM DESCRIPTION: USExtrem Venous W Compress Bil09/28/2022 3:44 pm CLINICAL HISTORY: Leg pain/elevated D-dimer COMPARISON: 2013 FINDINGS: The common femoral, superficial femoral, greater saphenous, popliteal and posterior tibial veins bilaterally are compressible and demonstrate augmentation. Doppler demonstrates good flow. Grayscale, color and spectral analysis performed on all vessels IMPRESSION: No evidence of deep venous thrombosis involving either lower extremity. Conclusions/Impression: Stage I MANAV likely CRS CKD III with Proteinuria -No NSAIDs HTN with CKD/ CHF -Continue Metoprolol -Metolazone X1 Diastolic CHF, A/C -Low sodium diet -Daily weight -Metolazone X1 DM II with CKD -RISS Anemia in chronic illness -Monitor H&H Case reviewed with Dr. Kitchen Hospitalist and Cardiology notes reviewed Thank you kindly for the consultation
[2022-09-29] MEDS: MORPHINE 2 MG/ML SYR IV PRN (15:13)
--- NOTE | 2022-09-29 15:15 | RAD REPORT ---
EXAM DESCRIPTION: NM - Vent Perfusion VQ Scan - 09/29/2022 2:56 pm CLINICAL HISTORY: Shortness of breath COMPARISON: September 28, 2022 chest x-ray TECHNIQUE: 13.8 Mci Xe133 was administered by inhalation. First breath, equilibrium, and washout images of the lungs obtained 6.9 millicuries Technetium-99 MAA was administered intravenously. Anterior, posterior, lateral and ob lique views of the lungs were taken. FINDINGS: The lungs demonstrate relatively homogeneous radiotracer activity on ventilation and perfu millie sequences. No mismatched segmental or lobar perfusion defects are seen. IMPRESSION: No evidence of a pulmonary embolus
--- NOTE | 2022-09-29 18:00 | P.PN ---
Subjective Date of Service: 09/29/22 Chief Complaint: Elevated Troponin No acute events overnight. He reports that his chest pain has improved. He denies any shortness of breath or palpitations. Appreciate Cardiology recs. Review of Systems 10-point ROS is otherwise unremarkable Physical Examination - Vital Signs Temperature: 98.3 F Blood Pressure: 167/73 Pulse: 65 Respirations: 18 Pulse Ox (%): 94 - Studies Laboratory Data (last 24 hrs) 09/29/22 09/29/22 09/29/22 12:32 08:27 01:56 WBC Hgb Hct Plt Count APTT 48.8 H 58.4 H 47.3 H Sodium Potassium BUN Creatinine Glucose Phosphorus Magnesium Total Bilirubin AST ALT Alkaline Phosphatase 09/29/22 09/29/22 09/28/22 01:56 01:56 22:45 WBC 8.00 Hgb 11.1 L Hct 34.4 L Plt Count 144 L APTT Cancelled Sodium 139 Potassium 4.6 BUN 39 H Creatinine 2.12 H Glucose 240 H Phosphorus 2.7 Magnesium 2.2 Total Bilirubin 0.3 AST 14 L ALT 23 Alkaline Phosphatase 53 09/28/22 19:54 WBC Hgb Hct Plt Count APTT 42.9 H Sodium Potassium BUN Creatinine Glucose Phosphorus Magnesium Total Bilirubin AST ALT Alkaline Phosphatase Assessment And Plan - Plan - Physical Exam General: Alert, In no apparent distress, Oriented x3 HEENT: Atraumatic, Mucous membr. moist/pink, Sclerae nonicteric Neck: JVD not distended Respiratory: Clear to auscultation bilaterally, Diminished Cardiovascular: Regular rate/rhythm, No murmurs, Edema (1-2+ BLE) Gastrointestinal: Normal bowel sounds, Soft, Non-distended, No tenderness Musculoskeletal: No clubbing Integumentary: Erythema (multiple scratches with significant erythema on bilateral shins - improved compared to yesterday) Neurological: Normal speech, Normal affect # Chest Pain, concern for Acute Coronary Syndrome (Non-ST Segment Elevation Myocardial Infarction) # Dyslipidemia - Evaluation thus far: - EKG: without STEMI criteria, trend - Serial troponin: 199.8 -> 570.2 -> 644.4 -> 476.5 -> 372.8 - Transthoracic echocardiogram (09/03/2022) = "1. poor windows 2. left ventricular ejection fraction is normal 55-60% 3. diastolic dysfunction (grade I)" - Chest x-ray = "no acute abnormalities displayed." - D-dimer = 1191 - V/Q = "no evidence of a pulmonary embolus" - Bilateral lower extremity Doppler = "no evidence of deep venous thrombosis involving either lower extremity" - Management plan: - Consult Cardiology and spoke with Dr. Garcia - recommendations appreciated - S/P aspirin 324 mg PO x 1 in ED - Start daily baby aspirin - Continue atorvastatin, metoprolol, enalapril, heparin drip # Bilateral Lower Extremity Cellulitis - He has multiple scratches on his legs, which he reports are due to cat scratches - Does not meet sepsis criteria - Started ceftriaxone + doxycycline -> amoxicillin-clavulanate # Hyperglycemia in Type II Diabetes Mellitus complicated by Peripheral Neuropathy - Continue insulin # Chronic Compensated Diastolic Congestive Heart Failure with Preserved Ejection Fraction - Consult Cardiology - recommendations appreciated - Transthoracic echocardiogram = "1. poor windows 2. left ventricular ejection fraction is normal 55-60% 3. diastolic dysfunction (grade I)" - Continue home torsemide, metoprolol, spironolactone - Daily weights - Strict I/O - Cardiac diet, 2 L fluid restriction, 2 g Na restriction # Chronic Kidney Disease Stage IV - Nephrology consulted and spoke with Dr. Escalona - recommendations appreciated - Creatinine = 2.23 -> 2.12 (near baseline) - Urinalysis = 4+ glucose - Monitor creatinine and urine output - If worsening, obtain renal ultrasound - Renally dose medications # Gout - Continue home allopurinol # Gastroesophageal Reflux Disease - Continue home pantoprazole Yanick Kitchen M.D.
[2022-09-29] MEDS ORDERED: NITROGLYCERIN 0.4 MG/TAB SL ONE ×2 (18:20→18:32)
[2022-09-29] MEDS: ATORVASTATIN 40 MG TAB PO SCH (21:00)
[2022-09-29] MEDS ORDERED: ZOLPIDEM TARTRATE 5 MG TABLET PO PRN ×2 (21:12→21:16)
[2022-09-29] MEDS ORDERED: MELATONIN 5 MG TABLET PO PRN (21:48)
--- NOTE | 2022-09-29 21:55 | P.PN ---
Date of Service: 09/30/22 Subjective: 09/30 note ROS: 10 point ROS as noted above, otherwise negative Physical Exam: GEN: Alert, oriented, NAD HEENT: Normal conjunctiva, sclera anicteric CV: Regular rate & rhythm, 2+ BLE edema Pulm: Nonlabored respiraitons on room air ABD: Soft, nontender, nondistended MSK: No joint tenderness Integumentary: multiple scratches with significant erythema on bilateral shins Neuro: Normal speech, normal affect Problem List: 1. Chest Pain, concern for NSTEMI 2. Dyslipidemia 3. Bilateral Lower Extremity Cellulitis 4. DM2 complicated by Peripheral Neuropathy 5. Chronic Compensated Diastolic CHF with Preserved EF 6. CKD 4 7. Gout 8. GERD PLAN troponins elevated - peak 644 echo (09/03/2022): poor windows, left ventricular EF is normal 55-60%, diastolic dysfunction (grade I) CXR negative d-dimer: 1191 Cardiology consulted continue aspirin 81 mg Continue atorvastatin, metoprolol, enalapril, heparin drip Continue home torsemide, metoprolol, spironolactone continue PO augmentin (09/29-) Continue insulin Nephrology consulted Monitor renal function ~baseline If worsening, obtain renal ultrasound Continue home allopurinol Continue home pantoprazole VTE: Heparin drip Code: Full Dispo: Home
[2022-09-29] MEDS ORDERED: METOLAZONE 5 MG TABLET PO ONE (22:00)
[2022-09-30 04:30] LABS: MPV 8.4 fL (7.6-11.3); Platelets 142 thou/uL (152-406)
[2022-09-30 05:08] LABS: Potassium 4.8 mEq/L (3.5-5.1); Uric Acid 7.3 mg/dL (3.5-7.2)
[2022-09-30] MEDS ORDERED: TORSEMIDE 20 MG TAB PO ONE (06:00)
[2022-09-30 06:16] LABS: Hepatitis B Core Ab, Total Nonreactive (Nonreactive); Hepatitis B surface AG Interp. Nonreactive (Nonreactive); Hepatitis C Virus Ab Nonreactive (Nonreactive)
[2022-09-30 06:59] LABS: Specific Gravity 1.012 (1.005-1.030); Urine Bacteria <20 /HPF (<20); Urine Bilirubin NEGATIVE (Negative); Urine Blood 1+ (Negative); Urine Clarity Clear (Clear); Urine Color Colorless (Yellow); Urine Glucose 3+ (Negative); Urine Protein TRACE (Negative); Urine RBC 21-50 /HPF (None Seen); Urine Urobilinogen Normal (Normal)
[2022-09-30 07:29] LABS: UR MICROALBUMIN 15.5 mg/dL (< 1.9); UR PROTEIN 33.1 mg/dL (<11.9); Urine Protein/Creatinine Ratio 0.62 ratio (<0.15)
[2022-09-30] MEDS: INSULIN -REGULAR HUMAN 50 UNIT/0.5 ML ML SQ SCH ×4 (07:30→20:16)
[2022-09-30] MEDS: ASPIRIN 81 MG CHEWABLE TABLET PO SCH (08:11)
[2022-09-30] MEDS: METOPROLOL TAR 50 MG TAB PO SCH ×2 (08:12→20:17)
[2022-09-30] MEDS: ONDANSETRON 4 MG/2 ML VIAL IV PRN (08:59)
[2022-09-30] MEDS: allopurinoL 100 MG TAB PO SCH ×2 (09:00→20:22)
[2022-09-30] MEDS: AMOX/K CLAV 875 MG TAB PO SCH ×2 (09:00→20:17)
[2022-09-30] MEDS: ACETYLCYST 20% 800 MG/4 ML VIAL PO SCH (09:00)
[2022-09-30] MEDS ORDERED: LIDOCAINE 1% 20 ML MDV ONE (10:41)
[2022-09-30] MEDS ORDERED: HEPA 1000U/500MLS 2,000 UNIT/1,000 ML BAG IV ONE (10:41)
[2022-09-30] MEDS ORDERED: MIDAZOLAM HCL 2 MG/2 ML INJ ONE (10:42)
[2022-09-30] MEDS ORDERED: HEPARIN 5000 UNIT/ML 1 ML VIAL ONE (10:42)
[2022-09-30] MEDS ORDERED: FENTANYL CITR 100 MCG/2 ML ONE (10:42)
[2022-09-30] MEDS ORDERED: CLOPIDOGREL 75 MG TABLET ONE (10:42)
[2022-09-30] MEDS ORDERED: TICAGRELOR 90 MG TABLET PO ONE (10:43)
[2022-09-30] MEDS ORDERED: ASPIRIN 325 MG TAB ONE (10:43)
[2022-09-30] MEDS ORDERED: ATROPINE SULF 1 MG/10 ML SYR IV ONE (10:43)
[2022-09-30] MEDS ORDERED: VERAPAMIL HCL 10 MG/4 ML VIAL IV ONE (10:43)
[2022-09-30] MEDS ORDERED: NITROGLYCERIN/D5W 25 MG/250 ML BTL IV ONE (10:44)
[2022-09-30] MEDS ORDERED: HEPARIN 10,000 UNIT/10 ML VIAL IV ONE (10:44)
[2022-09-30] MEDS ORDERED: NITROGLYCERIN 100 MCG/ML SYR (for cath lab use only) IV ONE (10:44)
[2022-09-30] MEDS: HEPARIN/D5W 25,000 UNIT/500 ML BAG IV PRN (12:45)
[2022-09-30] MEDS ORDERED: NA CHLORIDE 0.9% 500 ML ONE (14:39)
--- NOTE | 2022-09-30 16:15 | CON ---
Date of Consultation: 09/29/2022 Reason For Consultation: Chest pain and elevated troponin. History Of Present Illness: This is an 82-year-old male with history of diabetes, congestive heart f ailure, hypertension, coronary artery disease, COPD, chronic kidney disease, status post cardiac sten ts in the past, comes in with chest pain, retrosternal, radiates to his shoulder along with shortness of breath and lower extremity edema. He had multiple hospitalizations with heart failure recently. Denies having any nausea, vomiting, or diaphoresis. Past Medical History: As outlined above in the HPI. Medications: Refer to reconciliation sheet for detailed list. Allergies: HE IS ALLERGIC TO AMBIEN. Family History: No premature coronary artery disease or cancer. Social History: He does not smoke or drink. Does not use any drugs. Review of Systems: All systems reviewed and they were negative except what mentioned in HPI. Physical Examination: Vital Signs: Reviewed. Head and Neck: Pupils are equal, reactive to light. Intact eye movements. Positive JVD. No cervic al lymphadenopathy. Neck is supple. Thyroid is not enlarged. Lungs: Clear to auscultation bilaterally. No rhonchi, wheezing, or crackles. No accessory muscle u se. Heart: Irregular. No extra sounds. Abdomen: Soft, nontender. Bowel sounds positive. No organomegaly. No masses or hernia. No rigidi ty or rebound. Extremities: No clubbing or cyanosis. Positive edema. Neurologic: Alert, awake, oriented x3. No acute focal deficits appreciated. Investigations: Troponin 644 and his BUN is 39, creatinine is 2.1. Assessment And Recommendations: 1.Non-ST elevation myocardial infarction. Keep him n.p.o. past midnight to plan for coronary angiog yessi tomorrow morning. 2.Acute on chronic congestive heart failure exacerbation. Recommend IV diuresis and monitor BUN, cr eatinine, electrolyte. 3.Dyslipidemia. Use high-dose statin, 40 mg Lipitor, and give the patient baby aspirin, and further recommendations after coronary angiogram tomorrow. SR/MODL Voice ID: [id number] Report ID: [id number]
--- NOTE | 2022-09-30 16:30 | OP ---
Date of Procedure: 09/30/2022 Surgeon: FREDRICK RIZVI Procedure Performed: Selective coronary angiogram. Indication: [id number] myocardial infarction. Access: Right radial artery 6-[place] closed with TR band. Complications: None. Bleeding: Less than 50 mL. Anesthesia: Total sedation time was 30 minutes. Description Of Procedure: After risks, benefits, and alternatives were explained, patient agreed to procedure and signed informal consent. Patient was brought in the cardiac catheterization laboratory , prepped and draped in usual sterile fashion. Then I accessed the right radial artery using pediatr ic micropuncture kit, placed 6-[place] Slender sheath and took 5-[place] 4 catheter into the aort ic root, engaged the RCA and then exchanged for 6-[place] JL3.5 catheter, engaged the left main, took standard views and then removed the catheter and the sheath, placed TR band with good hemostasis. Findings: 1.Left main is large and distally severely diseased to 90%. 2.Ostial LAD is 90% stenosed and then 60% and then 80%, all in the proximal segment and then in the mid segment diffuse 50%, diagonal 2 has ostial 70% and then there are luminal irregularities of the L AD and then in the mid segment has about 60% stenosis. 3.Left circumflex; small, nondominant with ostial 90% stenosis and then patent stent. 4.RCA; large and dominant. Has a stent proximally with 50% iSR, mid RCA 80% stenosis and the PDA [place] s proximal 80% and the mid 60%, and the RCA is giving collaterals to the left circumflex. Assessment And Recommendation: Severe multivessel coronary artery disease including distal left main . Plan, transfer for CABG evaluation. If he gets turned down by CT Surgery, then he needs to have a n Impella-assisted high-risk PCI of the left main to the LAD and to the RCA as well. SR/MODL Voice ID: [id number] Report ID: [id number]
--- NOTE | 2022-09-30 16:30 | PN ---
Date of Progress Note: 09/30/2022 Subjective: Seen by bedside, doing well, status post coronary angiogram, found severe multivessel co ronary artery disease. Review of Systems: No active chest pain. No nausea, vomiting, diarrhea. All other systems reviewed and they were negat brandon. Physical Examination: Vital Signs: Reviewed. Head and Neck: Pupils are equal, reactive to light. Intact eye movements. No JVD. No cervical lym phadenopathy. Neck is supple. Thyroid is not enlarged. Lungs: Clear to auscultation bilaterally. No rhonchi, wheezing, or crackles. No accessory muscle u se. Heart: Regular rate and rhythm. No extra sounds. Abdomen: Soft, nontender. Bowel sounds positive. No organomegaly. No masses or hernia. No rigidi ty or rebound. Extremities: No clubbing or cyanosis. Intact pulses. Skin: No rash. Neurologic: Alert, awake, oriented x3. No acute focal deficits appreciated. Investigations: Labs were reviewed. Assessment And Recommendations: 1.Non-ST elevation myocardial infarction with severe multivessel coronary artery disease including l eft main. I will go ahead and initiate the transfer process to get him to [facility] CT Surgery evaluation. If he gets turned down by CT Surgery, then he will need Impella assisted hi gh risk multivessel percutaneous coronary intervention. 2.Congestive heart failure. Continue IV diuretics. Monitor BUN, creatinine, and electrolytes. SR/MODL Voice ID: [id number] Report ID: [id number]
[2022-09-30] MEDS ORDERED: HEPARIN/D5W 25,000 UNIT/500 ML BAG IV PRN (19:00)
[2022-09-30 19:04] LABS: Absolute Lymphocytes (CBC) 1.4 K/uL (0.7-4.9); Hematocrit 37.8 % (39.6-49.0); Lymphocytes % 18.3 % (15.3-44.8); MCV 87.8 fL (80-100); MPV 8.4 fL (7.6-11.3); Platelets 141 thou/uL (152-406); RBC Red Blood Cell Count 4.31 M/uL (4.33-5.43)
[2022-09-30] MEDS: ATORVASTATIN 40 MG TAB PO SCH (20:17)
[2022-09-30 20:25] VITALS: BP 177/79
--- NOTE | 2022-09-30 21:35 | P.PN ---
Date of Service: 09/30/22 Vital Signs Temp Pulse Resp BP Pulse Ox 97.4 F 86 18 177/79 H 94 09/30/22 17:15 09/30/22 20:17 09/30/22 17:15 09/30/22 20:17 09/30/22 17:15 Medications Allopurinol (Allopurinol 100 Mg Tab) 100 mg PO DAILY [facility] Last Admin: 09/30/22 20:22 Dose: 100 mg Amoxicillin/Clavulanate Potassium (Amox/K Clav 875 Mg Tab) 875 mg PO BID [facility] Last Admin: 09/30/22 20:17 Dose: 875 mg Aspirin (Aspirin 81 Mg Chewable Tablet) 81 mg PO DAILY [facility] Last Admin: 09/30/22 08:11 Dose: 81 mg Atorvastatin Calcium (Atorvastatin 40 Mg Tab) 40 mg PO BEDTIME [facility] Last Admin: 09/30/22 20:17 Dose: 40 mg Glucagon (Glucagon 1 Mg/Vial) 1 mg IM 1X PRN; Protocol PRN Reason: HYPOGLYCEMIA Heparin Sodium/Dextrose (Heparin Drip 25,000 Units/5oo Ml Premix) 25,000 unit in 500 mls @ 20 mls/hr IV TITR PRN; Protocol PRN Reason: PER PTT RESULTS Last Admin: 09/30/22 19:15 Dose: 500 mls Insulin Human Regular (Insulin -Regular Human 50 Unit/0.5 Ml Ml) 0 unit SQ ACHS [facility]; Protocol Last Admin: 09/30/22 20:16 Dose: 6 unit Melatonin (Melatonin 5 Mg Tablet) 10 mg PO BEDTIME PRN PRN PRN Reason: INSOMNIA Last Admin: 09/29/22 22:11 Dose: 10 mg Metoprolol Tartrate (Metoprolol Tar 50 Mg Tab) 50 mg PO BID [facility] Last Admin: 09/30/22 20:17 Dose: 50 mg Morphine Sulfate (Morphine 2 Mg/Ml Syr) 2 mg IV Q6H PRN PRN Reason: Pain scale 8-10 (Severe) Last Admin: 09/29/22 15:13 Dose: 2 mg Ondansetron HCl (Ondansetron 4 Mg/2 Ml Vial) 4 mg IV Q6H PRN PRN Reason: NAUSEA / VOMITING Last Admin: 09/30/22 08:59 Dose: 4 mg Sodium Chloride (Flush Normal Saline 10 Ml) 10 ml IV BID [facility] Last Admin: 09/30/22 20:22 Dose: 10 ml Assessment/ Plan: Nephrology BURT No chest pain Heart cath this morning No acute events overnight Vitals, medications, blood work and imaging reviewed in the chart. General: In no apparent distress, Oriented x3, Cooperative HEENT: Atraumatic Neck: Supple Respiratory: Diminished Cardiovascular: Regular rate/rhythm, Edema Gastrointestinal: Soft and benign, Non-distended Musculoskeletal: No clubbing, No contractures Integumentary: No rashes, No cyanosis, Skin lesion Neurological: Normal speech Urinary: Atwood catheter Blood work reviewed in the chart. Imagings Data: EXAM DESCRIPTION: RADChest Single View09/28/2022 12:22 pm CLINICAL HISTORY: Chest pain COMPARISON: September 22, 2022 FINDINGS: The lungs appear clear of acute infiltrate. The heart is borderline enlarged IMPRESSION: No acute abnormalities displayed EXAM DESCRIPTION: USExtrem Venous W Compress Bil09/28/2022 3:44 pm CLINICAL HISTORY: Leg pain/elevated D-dimer COMPARISON: 2013 FINDINGS: The common femoral, superficial femoral, greater saphenous, popliteal and posterior tibial veins bilaterally are compressible and demonstrate augmentation. Doppler demonstrates good flow. Grayscale, color and spectral analysis performed on all vessels IMPRESSION: No evidence of deep venous thrombosis involving either lower extremity. Conclusions/Impression: Stage I MANAV likely CRS CKD III with Proteinuria -No NSAIDs HTN with CKD/ CHF -Continue Metoprolol Diastolic CHF, A/C -Low sodium diet -Daily weight -Start Torsemide daily DM II with CKD -RISS Anemia in chronic illness -Monitor H&H Cardiology notes reviewed; plan for transfer
[2022-09-30 22:54] VITALS: O2SAT 93
[2022-09-30 22:55] VITALS: TEMP 99.4
[2022-10-01] MEDS ORDERED: TORSEMIDE 20 MG TAB PO SCH (09:00)
--- NOTE | 2022-10-01 18:18 | EKG ---
Test Date: 2022-09-28 Test Time: 11:32:58 Leather Finisher: BRADY MEASUREMENT RESULTS: Intervals: Rate: 88 NV: 170 QRSD: 80 QT: 336 QTc: 406 [place]: P: 54 NV: 170 QRS: 22 T: 90 INTERPRETIVE STATEMENTS: Normal sinus rhythm Nonspecific ST and T wave abnormality Abnormal ECG Compared to ECG 09/22/2022 11:09:53 ST (T wave) deviation now present Sinus bradycardia no longer present Electronically Signed On 10-01-22 18:13:23 CDT by Zurdo Garcia
--- NOTE | 2022-10-02 14:14 | EKG ---
Test Date: 2022-09-29 Test Time: 18:28:25 Senior Product Analyst: TREVOR MEASUREMENT RESULTS: Intervals: Rate: 75 MA: 154 QRSD: 82 QT: 374 QTc: 417 [place]: P: 6 MA: 154 QRS: 39 T: -22 INTERPRETIVE STATEMENTS: Normal sinus rhythm Low voltage QRS ST & T wave abnormality, consider inferior ischemia Abnormal ECG Compared to ECG 09/28/2022 21:10:00 Possible ischemia now present ST (T wave) deviation still present Electronically Signed On 10-02-22 14:12:12 CDT by Zurdo Garcia
== END 2022-09-30 21:20 | disposition short-term general hospital (02) | DRG 280 ==
LOC: ER 11:20 → ERHOLD 13:25 → 4TH 17:37 → OBSVTOIN 09-29 15:33
PROVIDERS: ADMIT Internal Medicine; ATTEND Hospitalist
PROC: 4A023N7 Measurement of Cardiac Sampling and Pressure, Left Heart, Percutaneous Approach (ICD-10-PCS; principal; 2022-09-30)
PROC: B2111ZZ Fluoroscopy of Multiple Coronary Arteries using Low Osmolar Contrast (ICD-10-PCS; 2022-09-30)
DX: I21.4 Non-ST elevation (NSTEMI) myocardial infarction (principal); I50.33 Acute on chronic diastolic (congestive) heart failure; I13.0 Hypertensive heart and chronic kidney disease with heart failure and stage 1 through stage 4 chronic kidney disease, or unspecified chronic kidney disease; L03.115 Cellulitis of right lower limb; N18.4 Chronic kidney disease, stage 4 (severe); L03.116 Cellulitis of left lower limb; N17.9 Acute kidney failure, unspecified; E11.22 Type 2 diabetes mellitus with diabetic chronic kidney disease; E11.42 Type 2 diabetes mellitus with diabetic polyneuropathy; E11.65 Type 2 diabetes mellitus with hyperglycemia; D63.1 Anemia in chronic kidney disease; D63.8 Anemia in other chronic diseases classified elsewhere; K21.9 Gastro-esophageal reflux disease without esophagitis; E78.00 Pure hypercholesterolemia, unspecified; M10.9 Gout, unspecified; J45.909 Unspecified asthma, uncomplicated; I25.2 Old myocardial infarction; Z88.1 Allergy status to other antibiotic agents; Z95.5 Presence of coronary angioplasty implant and graft; Z79.4 Long term (current) use of insulin; Z79.52 Long term (current) use of systemic steroids; Z79.899 Other long term (current) drug therapy; Z85.828 Personal history of other malignant neoplasm of skin
CPT/HCPCS: 36415; 51702; 71045; 76937; 78582; 80048; 80053; 80076; 81001; 82043; 82570; 82947; 83735; 83880; 84100; 84156; 84484; 84550; 85025; 85049; 85379; 85610; 85730; 86335; 86704; 86706; 86803; 87340; 87389; 93005; 93454; 93970; 96365; 96366; 96375; 99285; A9540; A9558; C1893; J0461; J0696; J1644; J1815; J1940; J2001; J2250; J2270; J2405; J3010; J7030; J7040; Q9966

== ENCOUNTER 2022-10-10 10:29 | Emergency (ER) | payer OTHER ==
--- OUTSIDE RECORDS SUMMARY | 2022-10-10 10:40 | XMS REPORT | Continuity of Care Document ---
:[address] [facility] t Address [address] [place] [id number] Care Team Providers Name Role Phone Esperanza Mustafa MD Primary Care Physician [phone] Floyd Mccarthy Attending Clinician Unavailable Esperanza Mustafa MD Attending Clinician [phone] ESPERANZA MUSTAFA Attending Clinician Unavailable KEVIN DE LA CRUZ Attending Clinician Unavailable Kevin De La Cruz MD Attending Clinician Tash Rodríguez RN Attending Clinician Unavailable DELROY LEDESMA Attending Clinician Unavailable Pooja Lord PA-C Attending Clinician Gilmar Mccauley MD Attending Clinician Doctor Unassigned, Encantado Attending Clinician Unavailable NIA BROWN Attending Clinician Unavailable Kym Knapp RN Attending Clinician Unavailable Olena Hector MD Attending Clinician WILDER ISLAS Attending Clinician Unavailable KYLEIGH GILLILAND Attending Clinician Unavailable DOUGLAS VASQUES Attending Clinician Unavailable Avelino Tompkins MD Attending Clinician AVELINO TOMPKINS Attending Clinician Unavailable JAY DOLAN Attending Clinician Unavailable Bonita Ray LMSW Attending Clinician Vaccine, Mauricio Family Attending Clinician Unavailable KT ALICEA Attending Clinician Unavailable DIONNA PAREDES Attending Clinician Unavailable ABDULAZIZ ROMERO Attending Clinician Unavailable KIMBER VOGEL Attending Clinician Unavailable OLENA HECTOR Attending Clinician Unavailable BALJIT YODER Attending Clinician Unavailable KARLI HUMPHREYS Attending Clinician Unavailable Floyd Mccarthy Admitting Clinician Unavailable KEVIN DE LA CRUZ Admitting Clinician Unavailable BALJIT YODER Admitting Clinician Unavailable Payers Payer Name Policy Type Policy Number Effective Date Expiration Date S an[place] MEDICARE PART A [id number] 1987 \\T\\ B 00:00:00 Problems Condition Condition Condition Status Onset Resolution Last Treating Co mments Source Name Details Category Date Date Treatment Clinician Date Coronary Coronary Disease Active 2020-0 Unive rs artery artery 4-04 ity of disease disease 00:00: [place] involving involving 00 [place] coronary coronary artery of artery of [place] heart heart without without angina angina pectoris pectoris Troponin I Troponin I Disease Active 2020-0 U nivers above above 4-04 it[place] of [place] 00 [place] COPD COPD Disease Active 2020-0 Univers exacerbati exacerbati 4-04 it y of on on 00:00: [place] Medical [facility] Coronary Coronary Disease Active 2020-0 Unive rs artery artery 4-04 ity of disease disease 00:00: [place] involving involving 00 Medi [place] coronary coronary artery of artery of [place] heart heart without without angina angina pectoris [...] 00 Medical Branch Lumbosacra Lumbosacra Disease Active 2012- 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 ICD10 Diagnosis Term Buyer Assistant Utility Gout Gout Disease Active 2011-02 Univers 0-19 ity of 00:00: [place] 00 Medical Branch Backache Backache Disease Active Overview: Un jb 4-20 Formattin ity of 00:00: g of this note Medical might be Branch different from the original. ICD10 Diagnosis Term Buyer Assistant Utility Essential Essential Disease Active Uni vers hypertensi hypertensi 1-23 it y of on, benign on, benign 00:00: [place] Esophageal Esophageal Disease Active U nivers dysphagia dysphagia 5-03 ity of 00:00: [place] 00 Medical Branch DELMY DELMY Disease Active Univers (obstructi (obstructi 1-31 it y of ve sleep ve sleep 00:00: [place] apnea) apnea) 00 Medical Branch Hereditary Hereditary Disease Active Overview : Univers and and 7-12 Formattin ity of idiopathic idiopathic 00:00: g of this [place] peripheral peripheral 00 note Me dical neuropathy neuropathy might be Branch different from the original. ICD10 Diagnosis Term Buyer Assistant Utility Chest pain Chest pain Disease Active Overview : Univers 4-30 Formattin ity of 00:00: g of this [place] 00 note Medical might be Branch different from the original. ICD10 Diagnosis Term Buyer Assistant Utility HLD HLD Disease Active Overview: Univer s (hyperlipi (hyperlipi 4-29 Formattin ity of demia) demia) 00:00: g of this [place] 00 note Medical might be Branch different from the original. 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 4-29 ity of of lumbar of lumbar 00:00: [facility] region 00 Medical without without Branch neurogenic neurogenic claudicati claudicati on on Skin Skin Disease Active [facility] cancer cancer ity of [facility] 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 [facility] Allergies, Adverse Reactions, Alerts Allergy Allergy Status Severity Reaction(s) Onset Inactive Treating Comm ents Source Name Type Date Date Clinician No Known DA Active [facility] Drug 10-01 Clear Allergie 00:00: [facility] s [facility] melatoni DA Active [place] RASH-UNKNOWN HC A n 10-01 Clear 00:00: Vargas [facility] zolpidem DA Active [place] KEEPS HIM [facility] AWAKE 09-30 Clear 00:00: Vargas [facility] Zolpidem Propensi Active Nausea Only U nivers ty to 08 ity of adverse 00:00: [place] reaction 00 Medical s to Branch drug ZOLPIDEM DRUG Active NAUSEA ONLY Uni vers INGREDI 4-08 ity of 00:00: [place] 00 [facility] No Known DA Active U [facility] Contrast 5-12 Clear Allergie 00:00: [facility]argas s [facility] No Known DA Active U [facility] Drug 5-12 Clear Allergie 00:00: Vargas s [facility] No Known DA Active U [facility] Food 5-12 Clear Allergie 00:00: [facility]argas s [facility] No Known DA Active U [facility] Other 5-12 Clear Allergie 00:00: [facility]argas s [facility] Social History Social Habit Start Date Stop Date Quantity Comments Source History of tobacco Cigarette Smoker University of use [facility] Gender identity Universit y of [facility] Sexual orientation Univer sity of [facility] Exposure to 2021-10-29 2021-11-08 Not sure [facility] SARS-CoV-2 (event) 00:00:00 14:33:00 [facility] Alcohol intake 2021-11-08 2021-11-08 Current University of 00:00:00 00:00:00 non-drinker of [facility] alcohol [place] (finding) Tobacco Comment 2021-11-08 2021-11-08 quit 50 years Univer sity of 00:00:00 00:00:00 ago [facility] Cigarettes smoked 2021-11-08 2021-11-08 Univers ity of current (pack per 00:00:00 00:00:00 ) - Reported Branch Cigarette 2021-11-08 2021-11-08 University of pack-years 00:00:00 00:00:00 [facility] Tobacco use and 2021-11-08 2021-11-08 Smokeless Universit y of exposure 00:00:00 00:00:00 tobacco non-user [facility] History of Social 2021-07-17 2021-07-17 Univers ity of function 00:00:00 00:00:00 [facility] Sex Assigned At [birth year] Universit y of 00:00:00 00:00:00 [facility] Smoking Status Start Date Stop Date Source Ex-smoker 2021-11-08 00:00:00 2021-11-08 00:00:00 [facility] Medications Ordered Filled Start Stop Current Ordering Indication Dosage Frequency Signature Comments Components Source Medication Medication Date Date Medication? Clinician (SIG) Name Name FUROSEMIDE Yes [id number] 40mg TAKE 1 Univers 40 mg 8-15 TABLET BY ity of tablet 00:00: MOUTH IN [place] [address] THE [facility] Branch FUROSEMIDE Yes [id number] 40mg TAKE 1 Univers 40 mg 8-15 TABLET BY ity of tablet 00:00: MOUTH IN [place] [address] THE [facility] Branch DROPSAFE Yes [id number] USE Un jb ALCOHOL 09-08 DIRECTED ity of PREP PADS 00:00: [address] DROPSAFE Yes [id number] USE Un jb ALCOHOL 09-08 DIRECTED ity of PREP PADS 00:00: [address] DROPSAFE Yes [id number] USE Un jb ALCOHOL 09-08 DIRECTED ity of PREP PADS 00:00: [address] ondansetron 2022- No 4mg 4 mg, Slow Univers (ZOFRAN 08-28 IV Push, ity of (PF)) 03:30: 03:50 ONCE, 1 [place] injection 4 00 :00 dose, On Medi johnathan mg Thu08/27/22 Branch at 2230, CHAPARRO furosemide 2022- No 20mg 20 mg, IV U nivers (LASIX) 08-28 Push, ity of injection 03:30: 03:25 ONCE, 1 [place] 20 mg 00 :00 dose, On Medical 08/27/22 Branch at 2230, [place] cephALEXin 2022- Yes [id number] 500mg Take 1 Univers 500 mg 08-27 capsule by ity of capsule 00:00: 04:59 mouth in [place] 00 :00 the [facility] Branch and 1 capsule at noon and 1 capsule in the evening. Do all this for 10 days. MONTELUKAST Yes [id number] TAKE 1 Univers 10 mg 6-26 TABLET ity of tablet 00:00: EVERY DAY [address] ALLOPURINOL 0 Yes [id number] TAKE 1 Univers 100 mg 6-26 TABLET ity of tablet 00:00: EVERY DAY [place] Medical Branch TAMSULOSIN 2023-0 Yes [id number] TAKE 1 Univers 0.4 mg 24 6-26 9102 CAPSULE ity of hr capsule 00:00: [place] FINASTERIDE 3-0 Yes [id number] TAKE 1 Univers 5 mg tablet 6-26 9102 TABLET ity of 00:00: EVERY DAY [place] [address] Medical Branch MONTELUKAST 3-0 Yes [id number] TAKE 1 Univers 10 mg 6-26 TABLET ity of tablet 00:00: EVERY DAY [place] [address] Medical Branch ALLOPURINOL 3-0 Yes [id number] TAKE 1 Univers 100 mg 6-26 TABLET ity of tablet 00:00: EVERY DAY [place] [address] Medical Branch TAMSULOSIN 3-0 Yes [id number] TAKE 1 Univers 0.4 mg 24 6-26 9102 CAPSULE ity of hr capsule 00:00: EVERY DAY [facility] Branch FINASTERIDE 2022-0 Yes [id number] TAKE 1 Univers 5 mg tablet 6-26 9102 TABLET ity of 00:00: EVERY DAY [place] [address] Medical Branch MONTELUKAST 3-0 Yes [id number] TAKE 1 Univers 10 mg 6-26 TABLET ity of tablet 00:00: EVERY DAY [place] [address] Medical Branch ALLOPURINOL 3-0 Yes [id number] TAKE 1 Univers 100 mg 6-26 TABLET ity of tablet 00:00: EVERY DAY [place] [address] Medical Branch TAMSULOSIN 3-0 Yes [id number] TAKE 1 Univers 0.4 mg 24 6-26 9102 CAPSULE ity of hr capsule 00:00: EVERY DAY [facility] Branch FINASTERIDE 3-0 Yes [id number] TAKE 1 Univers 5 mg tablet 6-26 9102 TABLET ity of 00:00: EVERY DAY [place] [address] Medical Branch MONTELUKAST 3-0 Yes [id number] TAKE 1 Univers 10 mg 6-26 TABLET ity of tablet 00:00: EVERY DAY [address] ALLOPURINOL 3-0 Yes [id number] TAKE 1 Univers 100 mg 6-26 TABLET ity of tablet 00:00: EVERY DAY [place] [address] Medical [place] TAMSULOSIN 3-0 Yes [id number] TAKE 1 Univers 0.4 mg 24 6-26 9102 CAPSULE ity of hr capsule 00:00: EVERY DAY [place] Branch FINASTERIDE 2023-0 Yes [id number] TAKE 1 Univers 5 mg tablet 6-26 9102 TABLET ity of 00:00: EVERY DAY [address] Branch MONTELUKAST 3-0 Yes [id number] TAKE 1 Univers 10 mg 6-26 TABLET ity of tablet 00:00: EVERY DAY [address] Branch ALLOPURINOL 2023-0 Yes [id number] TAKE 1 Univers 100 mg 6-26 TABLET ity of tablet 00:00: EVERY DAY [address] Branch TAMSULOSIN 2023-0 Yes [id number] TAKE 1 Univers 0.4 mg 24 6-26 9102 CAPSULE ity of hr capsule 00:00: EVERY DAY [facility] FINASTERIDE 3-0 Yes [id number] TAKE 1 Univers 5 mg tablet 6-26 9102 TABLET ity of 00:00: EVERY DAY [address] MONTELUKAST 3-0 Yes [id number] TAKE 1 Univers 10 mg 6-26 TABLET ity of tablet 00:00: EVERY DAY [address] ALLOPURINOL 3-0 Yes [id number] TAKE 1 Univers 100 mg 6-26 TABLET ity of tablet 00:00: EVERY DAY [address] Branch TAMSULOSIN 3-0 Yes [id number] TAKE 1 Univers 0.4 mg 24 6-26 9102 CAPSULE ity of hr capsule 00:00: EVERY DAY [facility] Branch FINASTERIDE 3-0 Yes [id number] TAKE 1 Univers 5 mg tablet 6-26 9102 TABLET ity of 00:00: EVERY DAY [address] pregabalin 2023-0 Yes [id number] 75mg Take 1 Univers 75 mg 2-23 capsule by ity of capsule 00:00: mouth in [address] morning [place] and 1 capsule at noon and 1 capsule in the evening. pregabalin 2023-0 Yes [id number] 75mg Take 1 Univers 75 mg 2-23 capsule by ity of capsule 00:00: mouth in [address] morning [place] and 1 capsule at noon and 1 capsule in the evening. pregabalin 2023-0 Yes [id number] 75mg Take 1 Univers 75 mg 2-23 capsule by ity of capsule 00:00: mouth in [address] morning [place] and 1 capsule at noon and 1 capsule in the evening. pregabalin 2023-0 Yes [id number] 75mg Take 1 Univers 75 mg 2-23 capsule by ity of capsule 00:00: mouth in [place] [address] the Medical morning Branch and 1 capsule at noon and 1 capsule in the evening. pregabalin 2023-0 Yes [id number] 75mg Take 1 Univers 75 mg 2-23 capsule by ity of capsule 00:00: mouth in [place] [address] the Medical morning Branch and 1 capsule at noon and 1 capsule in the evening. pregabalin 2023-0 Yes [id number] 75mg Take 1 Univers 75 mg 2-23 capsule by ity of capsule 00:00: mouth in [place] [address] the Medical morning Branch and 1 capsule at noon and 1 capsule in the evening. pregabalin 2023-0 Yes [id number] 75mg Take 1 Univers 75 mg 2-23 capsule by ity of capsule 00:00: mouth in [place] [address] the [facility] morning Branch and 1 capsule at noon and 1 capsule in the evening. ENALAPRIL 3-0 Yes [id number] TAKE 1 Uni vers 20 mg 2-21 TABLET ity of tablet 00:00: EVERY [address] Medical Branch DROPSAFE 3-0 Yes [id number] USE Un jb ALCOHOL 2-21 DIRECTED ity of PREP PADS 00:00: [facility] Medical Branch ENALAPRIL 2023-0 Yes [id number] TAKE 1 Uni vers 20 mg 2-21 TABLET ity of tablet 00:00: EVERY [address] Medical Branch DROPSAFE 2023-0 Yes [id number] USE Un jb ALCOHOL 2-21 DIRECTED ity of PREP PADS 00:00: [facility] Medical Branch ENALAPRIL 2023-0 Yes [id number] TAKE 1 Uni vers 20 mg 2-21 TABLET ity of tablet 00:00: EVERY [place] [address] MORNING Medical Branch DROPSAFE 3-0 Yes [id number] USE Un jb ALCOHOL 2-21 DIRECTED ity of PREP PADS 00:00: [facility] Medical Branch ENALAPRIL 2023-0 Yes [id number] TAKE 1 Uni vers 20 mg 2-21 TABLET ity of tablet 00:00: EVERY [place] [address] MORNING Medical Branch DROPSAFE 2023-0 Yes [id number] USE Un jb ALCOHOL 2-21 DIRECTED ity of PREP PADS 00:00: [facility] Medical Branch ENALAPRIL 0 Yes [id number] TAKE 1 Uni vers 20 mg 2-21 TABLET ity of tablet 00:00: EVERY [place] MORNING Medical Branch DROPSAFE 2022-0 Yes [id number] USE Un jb ALCOHOL 2-21 DIRECTED ity of PREP PADS 00:00: [facility] 00 Medical Branch ENALAPRIL 2022-0 Yes [id number] TAKE 1 Uni vers 20 mg 2-21 TABLET ity of tablet 00:00: EVERY [place] MORNING Medical Branch ENALAPRIL 2022-0 Yes [id number] TAKE 1 Uni vers 20 mg 2-21 TABLET ity of tablet 00:00: EVERY [place] MORNING Medical Branch ENALAPRIL 2022-0 Yes [id number] TAKE 1 Uni vers 20 mg 2-21 TABLET ity of tablet 00:00: EVERY [place] MORNING Medical Branch DROPSAFE 2022-0 2022- No [id number] USE U nivers ALCOHOL 2-21 07-17 DIRECTED ity of PREP PADS 00:00: 00:00 [facility] 00 :00 Medical Branch NOVOLOG 2022-0 Yes [id number] INJECT 40 Univers FLEXPEN 2-14 UNITS ity of U-100 00:00: UNDER THE [place] INSULIN 100 00 SKIN THREE Me dical unit/mL (3 TIMES Branch mL) DAILY injection BEFORE MEALS (MORNING, NOON, EVENING) NOVOLOG 2022-0 Yes [id number] INJECT 40 Univers FLEXPEN 2-14 UNITS ity of U-100 00:00: UNDER THE [place] INSULIN 100 00 SKIN THREE Me dical unit/mL (3 TIMES Branch mL) DAILY injection BEFORE MEALS (MORNING, NOON, EVENING) NOVOLOG 2022-0 Yes [id number] INJECT 40 Univers FLEXPEN 2-14 UNITS ity of U-100 00:00: UNDER THE [place] INSULIN 100 00 SKIN THREE Me dical unit/mL (3 TIMES Branch mL) DAILY injection BEFORE MEALS (MORNING, NOON, EVENING) NOVOLOG 2022-0 Yes [id number] INJECT 40 Univers FLEXPEN 2-14 UNITS ity of U-100 00:00: UNDER THE [place] INSULIN 100 00 SKIN THREE Me dical unit/mL (3 TIMES Branch mL) DAILY injection BEFORE MEALS (MORNING, NOON, EVENING) NOVOLOG 2022-0 Yes [id number] INJECT 40 Univers FLEXPEN 2-14 UNITS ity of U-100 00:00: UNDER THE [place] INSULIN 100 00 SKIN THREE Me dical unit/mL (3 TIMES Branch mL) DAILY injection BEFORE MEALS (MORNING, NOON, EVENING) NOVOLOG 2022-0 Yes [id number] INJECT 40 Univers FLEXPEN 2-14 UNITS ity of U-100 00:00: UNDER THE [place] INSULIN 100 00 SKIN THREE Me dical unit/mL (3 TIMES Branch mL) DAILY injection BEFORE MEALS (MORNING, NOON, EVENING) NOVOLOG 2022-0 Yes [id number] INJECT 40 Univers FLEXPEN 2-14 UNITS ity of U-100 00:00: UNDER THE [place] INSULIN 100 00 SKIN THREE Me dical unit/mL (3 TIMES Branch mL) DAILY injection BEFORE MEALS (MORNING, NOON, EVENING) NOVOLOG 2022-0 Yes [id number] INJECT 40 Univers FLEXPEN 2-14 UNITS ity of U-100 00:00: UNDER THE [place] INSULIN 100 00 SKIN THREE Me dical unit/mL (3 TIMES Branch mL) DAILY injection BEFORE MEALS (MORNING, NOON, EVENING) NOVOLOG 2022-0 Yes [id number] INJECT 40 Univers FLEXPEN 2-14 UNITS ity of U-100 00:00: UNDER THE [place] INSULIN 100 00 SKIN THREE Me dical unit/mL (3 TIMES Branch mL) DAILY injection BEFORE MEALS (MORNING, NOON, EVENING) ESOMEPRAZOL Yes [id number] TAKE 1 Univers E 20 mg 1-03 CAPSULE BY ity of capsule 00:00: MOUTH [place] 00 EVERY DAY Medical Branch ESOMEPRAZOL Yes [id number] TAKE 1 Univers E 20 mg 1-03 CAPSULE BY ity of capsule 00:00: MOUTH [place] 00 EVERY DAY Medical Branch ESOMEPRAZOL Yes [id number] TAKE 1 Univers E 20 mg 1-03 CAPSULE BY ity of capsule 00:00: MOUTH [place] DAY Medical Branch ESOMEPRAZOL Yes [id number] TAKE 1 Univers E 20 mg 1-03 CAPSULE BY ity of capsule 00:00: MOUTH [place] DAY Medical Branch ESOMEPRAZOL Yes [id number] TAKE 1 Univers E 20 mg 1-03 CAPSULE BY ity of capsule 00:00: MOUTH [place] EVERY DAY Medical Branch ESOMEPRAZOL Yes [id number] TAKE 1 Univers E 20 mg 1-03 CAPSULE BY ity of capsule 00:00: MOUTH EVERY DAY Medical Branch ESOMEPRAZOL 2022-0 Yes [id number] TAKE 1 Univers E 20 mg 1-03 CAPSULE BY ity of capsule 00:00: MOUTH EVERY DAY Medical Branch ESOMEPRAZOL 2022-0 Yes [id number] TAKE 1 Univers E 20 mg 1-03 CAPSULE BY ity of capsule 00:00: MOUTH EVERY DAY Medical Branch ESOMEPRAZOL 2022-0 Yes [id number] TAKE 1 Univers E 20 mg 1-03 CAPSULE BY ity of capsule 00:00: MOUTH EVERY DAY Medical Branch ESOMEPRAZOL 0 Yes [id number] TAKE 1 Univers E 20 mg 1-03 CAPSULE BY ity of capsule 00:00: MOUTH EVERY DAY Medical Branch Insulin 2021-02 Yes [id number] Use as Univ ers [place], 2-15 directed ity of Disposable, 00:00: [place] (DROPLET 00 Medical PEN NEEDLE) Branch 31 gauge x 1/4" Ndle Insulin 2021-02 Yes [id number] Use as Univ ers [place], 2-15 directed ity of Disposable, 00:00: [place] (DROPLET 00 Medical PEN NEEDLE) Branch 31 gauge x 1/4" Ndle Insulin 2021-02 Yes [id number] Use as Univ ers [place], 2-15 directed ity of Disposable, 00:00: [place] (DROPLET 00 Medical PEN NEEDLE) Branch 31 gauge x 1/4" Ndle Insulin 2021-02 Yes [id number] Use as Univ ers [place], 2-15 directed ity of Disposable, 00:00: [place] (DROPLET 00 Medical PEN NEEDLE) Branch 31 gauge x 1/4" Ndle Insulin 2021-02 Yes [id number] Use as Univ ers [place], 2-15 directed ity of Disposable, 00:00: [place] (DROPLET 00 Medical PEN NEEDLE) Branch 31 gauge x 1/4" Ndle Insulin 2021-02 Yes [id number] Use as Univ ers [place], 2-15 directed ity of Disposable, 00:00: [place] (DROPLET 00 Medical PEN NEEDLE) Branch 31 gauge x 1/4" Ndle Insulin 2021-02 Yes [id number] Use as Univ ers [place], 2-15 directed ity of Disposable, 00:00: [place] (DROPLET 00 Medical PEN NEEDLE) Branch 31 gauge x 1/4" Ndle Insulin 2021-02 Yes [id number] Use as Univ ers [place], 2-15 directed ity of Disposable, 00:00: [place] (DROPLET 00 Medical PEN NEEDLE) Branch 31 gauge x 1/4" Ndle Insulin 2021-02 Yes [id number] Use as Univ ers [place], 2-15 directed ity of Disposable, 00:00: [place] (DROPLET 00 Medical PEN NEEDLE) Branch 31 gauge x 1/4" Ndle Insulin 2021-02 Yes [id number] Use as Univ ers [place], 2-15 directed ity of Disposable, 00:00: [place] (DROPLET 00 Medical PEN NEEDLE) Branch 31 gauge x 1/4" Ndle Insulin 2021-02 Yes [id number] Use as Univ ers [place], 2-15 directed ity of Disposable, 00:00: [place] (DROPLET 00 Medical PEN NEEDLE) Branch 31 gauge x 1/4" Ndle Lancets 2021-02 Yes [id number] Use as Uni vers (ACCU-CHEK 2-08 directed ity o f SOFTCLIX 00:00: [place] LANCETS) 00 [facility] Alcohol 2021-02 Yes [id number] Use as Uni vers Swabs (BD 2-08 directed ity of SINGLE USE 00:00: [place] SWABS 00 Medical REGULAR) Branch PadM Lancets 2021-02 Yes [id number] Use as Uni vers (ACCU-CHEK 2-08 directed ity o f SOFTCLIX 00:00: [place] LANCETS) 00 [facility] Alcohol 2021-02 Yes [id number] Use as Uni vers Swabs (BD 2-08 directed ity of SINGLE USE 00:00: [place] SWABS 00 Medical REGULAR) Branch PadM Lancets 2021-02 Yes [id number] Use as Uni vers (ACCU-CHEK 2-08 directed ity o f SOFTCLIX 00:00: [place] LANCETS) 00 [facility] Alcohol 2021-02 Yes [id number] Use as Uni vers Swabs (BD 2-08 directed ity of SINGLE USE 00:00: [place] SWABS 00 Medical REGULAR) Branch PadM Lancets 2021-02 Yes [id number] Use as Uni vers (ACCU-CHEK 2-08 directed ity o f SOFTCLIX 00:00: [place] LANCETS) 00 [facility] Alcohol 2021-02 Yes [id number] Use as Uni vers Swabs (BD 2-08 directed ity of SINGLE USE 00:00: [place] SWABS 00 Medical REGULAR) Branch PadM Lancets 2021-02 Yes [id number] Use as Uni vers (ACCU-CHEK 2-08 directed ity o f SOFTCLIX 00:00: [place] LANCETS) 00 Medical Misc Branch Lancets 2021-02 Yes [id number] Use as Uni vers (ACCU-CHEK 2-08 directed ity o f SOFTCLIX 00:00: [place] LANCETS) 00 Medical Misc Branch Lancets 2021-02 Yes [id number] Use as Uni vers (ACCU-CHEK 2-08 directed ity o f SOFTCLIX 00:00: [place] LANCETS) 00 Medical Misc Branch Lancets 2021-02 Yes [id number] Use as Uni vers (ACCU-CHEK 2-08 directed ity o f SOFTCLIX 00:00: [place] LANCETS) 00 Medical Misc Branch Lancets 2021-02 Yes [id number] Use as Uni vers (ACCU-CHEK 2-08 directed ity o f SOFTCLIX 00:00: [place] LANCETS) 00 Medical Misc Branch Lancets 2021-02 Yes [id number] Use as Uni vers (ACCU-CHEK 2-08 directed ity o f SOFTCLIX 00:00: [place] LANCETS) 00 Medical Misc Branch Lancets 2021-02 Yes [id number] Use as Uni vers (ACCU-CHEK 2-08 directed ity o f SOFTCLIX 00:00: [place] LANCETS) 00 Medical Misc Branch Lancets 2021-02 Yes [id number] Use as Uni vers (ACCU-CHEK 2-08 directed ity o f SOFTCLIX 00:00: [place] LANCETS) 00 Medical Misc Branch Alcohol 2021-02- No [id number] Use as Un jb Swabs (BD 2-08 - directed ity o f SINGLE USE 00:00: 00:00 [place] SWABS 00 :00 Medical REGULAR) Branch PadM pregabalin 2021-02 Yes [id number] 75mg Take 1 Univers 75 mg 2-07 capsule by ity of capsule 00:00: mouth in [place] 00 the Medical morning Branch and 1 capsule at noon and 1 capsule in the evening. blood sugar 2021-02 Yes [id number] Test 4x Univers diagnostic 2-07 daily for ity of (ACCU-CHEK 00:00: [place] PL[place] 00 code E11.9 Med ical TEST STRP) Branch strip pregabalin 2021-02 Yes [id number] 75mg Take 1 Univers 75 mg 2-07 capsule by ity of capsule 00:00: mouth in [place] the Medical morning Branch and 1 capsule at noon and 1 capsule in the evening. enalapril 2021-02 Yes [id number] 20mg Take 1 Uni vers 20 mg 2-07 tablet by ity of tablet 00:00: mouth in [place] the morning. Branch pregabalin 2021-02 Yes [id number] 75mg Take 1 [facility] 75 mg 2-07 capsule by ity of capsule 00:00: mouth in [place] the morning Branch and 1 capsule at noon and 1 capsule in the evening. blood sugar 2021-02 Yes [id number] Test 4x [facility] diagnostic 2-07 daily for ity of (ACCU-CHEK 00:00: diagnosis [place] [facility] 00 code E11.9 Med ical TEST STRP) Branch strip enalapril 2021-02 Yes [id number] 20mg Take 1 [facility] vers 20 mg 2-07 tablet by ity of tablet 00:00: mouth in [place] the . Branch pregabalin 2021-02 Yes [id number] 75mg Take 1 [facility] 75 mg 2-07 capsule by ity of capsule 00:00: mouth in [place] the Branch and 1 capsule at noon and 1 capsule in the evening. blood sugar 2021-02 Yes [id number] Test 4x [facility] diagnostic 2-07 daily for ity of (ACCU-CHEK 00:00: diagnosis [place] [facility] 00 code E11.9 Med ical TEST STRP) Branch strip enalapril 2021-02 Yes [id number] 20mg Take 1 [facility] vers 20 mg 2-07 tablet by ity of tablet 00:00: mouth in [place] the morning. Branch pregabalin 2021-02 Yes [id number] 75mg Take 1 [facility] 75 mg 2-07 capsule by ity of capsule 00:00: mouth in [place] the morning Branch and 1 capsule at noon and 1 capsule in the evening. blood sugar 2021-02 Yes [id number] Test 4x [facility] diagnostic 2-07 daily for ity of (ACCU-CHEK 00:00: [place] [facility] 00 code E11.9 Med ical TEST STRP) Branch strip enalapril 2021-02 Yes [id number] 20mg Take 1 [facility] vers 20 mg 2-07 tablet by ity of tablet 00:00: mouth in [place] [address] the Medical morning. Branch pregabalin 2021-02 Yes [id number] 75mg Take 1 [facility] 75 mg 2-07 capsule by ity of capsule 00:00: mouth in [place] [address] the Medical morning Branch and 1 capsule at noon and 1 capsule in the evening. blood sugar 2021-02 Yes [id number] Test 4x [facility] diagnostic 2-07 daily for ity of (ACCU-CHEK 00:00: [place] [facility] 00 code E11.9 Med ical TEST STRP) Branch strip blood sugar 2021-02 Yes [id number] Test 4x [facility] diagnostic 2-07 daily for ity of (ACCU-CHEK 00:00: diagnosis [place] [facility] 00 code E11.9 Med ical TEST STRP) Branch strip blood sugar 2021-02 Yes [id number] Test 4x [facility] diagnostic 2-07 daily for ity of (ACCU-CHEK 00:00: diagnosis [place] [facility] 00 code E11.9 Med ical TEST STRP) Branch strip blood sugar 2021-02 Yes [id number] Test 4x [facility] diagnostic 2-07 daily for ity of (ACCU-CHEK 00:00: diagnosis [place] [facility] 00 code E11.9 Med ical TEST STRP) Branch strip blood sugar 2021-02 Yes [id number] Test 4x [facility] diagnostic 2-07 daily for ity of (ACCU-CHEK 00:00: diagnosis [place] [facility] 00 code E11.9 Med ical TEST STRP) Branch strip blood sugar 2021-02 Yes [id number] Test 4x [facility] diagnostic 2-07 daily for ity of (ACCU-CHEK 00:00: diagnosis [place] [facility] 00 code E11.9 Med ical TEST STRP) Branch strip blood sugar 2021-02 Yes [id number] Test 4x [facility] diagnostic 2-07 daily for ity of (ACCU-CHEK 00:00: diagnosis [place] [facility] 00 code E11.9 Med ical TEST STRP) Branch strip blood sugar 2021-02 Yes [id number] Test 4x [facility] diagnostic 2-07 daily for ity of (ACCU-CHEK 00:00: diagnosis [place] [facility] 00 code E11.9 Med ical TEST STRP) Branch strip pregabalin 2021-02- No [id number] 75mg Take 1 [facility] 75 mg 204-17 capsule by ity of capsule 00:00: 00:00 mouth in [place] 00 :00 the Medical morning Branch and 1 capsule at noon and 1 capsule in the evening. enalapril 2021-02- No [id number] 20mg Take 1 Un bj 20 mg 04-01 tablet by ity of tablet 00:00: 00:00 mouth in [place] 00 :00 the Medical morning. Branch Blood 2021-02 Yes [id number] Use as Unive rs Glucose 2-06 needed per ity [facility] (ACCU-CHEK recommenda [facility] FOREST tions CONTROL SOLN) Soln Insulin 2021-02 Yes [id number] 50U inject 50 Univers Glargine 2-06 Units ity of (LANTUS 00:00: under the [place] SOLOSTAR 00 skin at Medical U-100 bedtime. Branch INSULIN) 100 unit/mL (3 mL) injection Blood 2021-02 Yes [id number] Use as Unive rs Glucose 2-06 needed per ity of Control 00:[facility] Medical (ACCU-CHEK recommenda [facility] FORSET tions CONTROL SOLN) Soln Insulin 2021-02 Yes [id number] 50U inject 50 [facility] Glargine 2-06 Units ity of (LANTUS 00:00: under the [place] SOLOSTAR 00 skin at Medical U-100 bedtime. Branch INSULIN) 100 unit/mL (3 mL) injection insulin 2021-02 Yes [id number] 40U inject 40 Univers aspart 2-06 Units ity of U-100 00:00: under the [place] (NOVOLOG 00 skin in [facility] FLEXPEN the Branch U-100 morning INSULIN) and 40 100 unit/mL Units at (3 mL) noon and injection 40 Units in the evening. inject before meals. Blood 2021-02 Yes [id number] Use as Unive rs Glucose 2-06 needed per ity of Control 00:00: [place] High&Low 00 er's Medical (ACCU-CHEK recommenda [facility] FOREST tions CONTROL SOLN) Soln Insulin 2021-02 Yes [id number] 50U inject 50 [facility] Glargine 2-06 Units ity of (LANTUS 00:00: under the [place] SOLOSTAR 00 skin at Medical U-100 bedtime. Branch INSULIN) 100 unit/mL (3 mL) injection insulin 2021-02 Yes [id number] 40U inject 40 [facility] aspart 2-06 Units ity of U-100 00:00: under the [place] (NOVOLOG 00 skin in Medical FLEXPEN the Branch U-100 morning INSULIN) and 40 100 unit/mL Units at (3 mL) noon and injection 40 Units in the evening. inject before meals. Blood 2021-02 Yes [id number] Use as Unive rs Glucose 2-06 needed per ity of Control 00:00: [place] High&Low 00 er's Medical (ACCU-CHEK recommenda [facility] FOREST tions CONTROL SOLN) Soln Insulin 2021-02 Yes [id number] 50U inject 50 [facility] Glargine 2-06 Units ity of (LANTUS 00:00: under the [place] SOLOSTAR 00 skin at Medical U-100 bedtime. Branch INSULIN) 100 unit/mL (3 mL) injection insulin 2021-02 Yes [id number] 40U inject 40 Univers aspart 2-06 Units ity of U-100 00:00: under the [place] (NOVOLOG 00 skin in Medical FLEXPEN the Branch U-100 morning INSULIN) and 40 100 unit/mL Units at (3 mL) noon and injection 40 Units in the evening. inject before meals. Blood 2021-02 Yes [id number] Use as Unive rs Glucose 2-06 needed per ity of Control 00:00: [place] High&Low 00 er's Medical (ACCU-CHEK recommend[facility] FOREST tions CONTROL SOLN) Soln Insulin 2021-02 Yes [id number] 50U inject 50 [facility] Glargine 2-06 Units ity of (LANTUS 00:00: under the [place] SOLOSTAR 00 skin at Medical U-100 bedtime. Branch INSULIN) 100 unit/mL (3 mL) injection insulin 2021-02 Yes [id number] 40U inject 40 [facility] aspart 2-06 Units ity of U-100 00:00: under the [place] (NOVOLOG 00 skin in Medical FLEXPEN the Branch U-100 morning INSULIN) and 40 100 unit/mL Units at (3 mL) noon and injection 40 Units in the evening. inject before meals. Blood 2021-02 Yes [id number] Use as Unive rs Glucose 2-06 needed per ity of Control 00:00[facility] (ACCU-CHEK recommenda [facility] FOREST tions CONTROL SOLN) Soln Insulin 2021-02 Yes [id number] 50U inject 50 Univers Glargine 2-06 Units ity of (LANTUS 00:00: under the [place] SOLOSTAR 00 skin at [facility] U-100 bedtime. Branch INSULIN) 100 unit/mL (3 mL) injection insulin 2021-02 Yes [id number] 40U inject 40 Univers aspart 2-06 Units ity of U-100 00:00: under the [place] (NOVOLOG 00 skin in Medical FLEXPEN the Branch U-100 morning INSULIN) and 40 100 unit/mL Units at (3 mL) noon and injection 40 Units in the evening. inject before meals. Blood 2021-02 Yes [id number] Use as Unive rs Glucose 2-06 needed per ity of Control 00:00: [facility] High&Low 00 's [facility] (ACCU-CHEK recommenda [facility] FOREST tions CONTROL SOLN) Soln Insulin 2021-02 Yes [id number] 50U inject 50 [facility] Glargine 2-06 Units ity of (LANTUS 00:00: under the [place] SOLOSTAR 00 skin at Medical U-100 bedtime. Branch INSULIN) 100 unit/mL (3 mL) injection insulin 2021-02 Yes [id number] 40U inject 40 Univers aspart 2-06 Units ity of U-100 00:00: under the [place] (NOVOLOG 00 skin in Medical FLEXPEN the Branch U-100 morning INSULIN) and 40 100 unit/mL Units at (3 mL) noon and injection 40 Units in the evening. inject before meals. Blood 2021-02 Yes [id number] Use as Unive rs Glucose 2-06 needed per ity of Control 00:00: [place]Low 00 er's Medical (ACCU-CHEK recommenda [facility] FOREST tions CONTROL SOLN) Soln Insulin 2021-02 Yes [id number] 50U inject 50 [facility] Glargine 2-06 Units ity of (LANTUS 00:00: under the [place] SOLOSTAR 00 skin at Medical U-100 bedtime. Branch INSULIN) 100 unit/mL (3 mL) injection insulin 2021-02 Yes [id number] 40U inject 40 Univers aspart 2-06 Units ity of U-100 00:00: under the [place] (NOVOLOG 00 skin in Medical FLEXPEN the Branch U-100 morning INSULIN) and 40 100 unit/mL Units at (3 mL) noon and injection 40 Units in the evening. inject before meals. Blood 2021-02 Yes [id number] Use as Unive rs Glucose 2-06 needed per ity of Control 00:00: [place] High&Low 00 er's Medical (ACCU-CHEK recommenda [facility] FOREST tions CONTROL SOLN) Soln Insulin 2021-02 Yes [id number] 50U inject 50 [facility] Glargine 2-06 Units ity of (LANTUS 00:00: under the [place] SOLOSTAR 00 skin at Medical U-100 bedtime. Branch INSULIN) 100 unit/mL (3 mL) injection insulin 2021-02 Yes [id number] 40U inject 40 Univers aspart 2-06 Units ity of U-100 00:00: under the [place] (NOVOLOG 00 skin in Medical FLEXPEN the Branch U-100 morning INSULIN) and 40 100 unit/mL Units at (3 mL) noon and injection 40 Units in the evening. inject before meals. Blood 2021-02 Yes [id number] Use as Unive rs Glucose 2-06 needed per ity of Control 00:00: [place]&Low 00 er's Medical (ACCU-CHEK recommenda [facility] FOREST tions CONTROL SOLN) Soln Insulin 2021-02 Yes [id number] 50U inject 50 [facility] Glargine 2-06 Units ity of (LANTUS 00:00: under the [place] SOLOSTAR 00 skin at Medical U-100 bedtime. Branch INSULIN) 100 unit/mL (3 mL) injection insulin 2021-02 Yes [id number] 40U inject 40 Univers aspart 2-06 Units ity of U-100 00:00: under the [place] (NOVOLOG 00 skin in Medical FLEXPEN the Branch U-100 morning INSULIN) and 40 100 unit/mL Units at (3 mL) noon and injection 40 Units in the evening. inject before meals. Blood 2021-02 Yes [id number] Use as Unive rs Glucose 2-06 needed per ity of Control 00:00: [place] High&Low 00 er's Medical (ACCU-CHEK recommenda [facility] FOREST tions CONTROL SOLN) Soln Insulin 2021-02 Yes [id number] 50U inject 50 Univers Glargine 2-06 Units ity of (LANTUS 00:00: under the [place] SOLOSTAR 00 skin at Medical U-100 bedtime. Branch INSULIN) 100 unit/mL (3 mL) injection Blood 2021-02 Yes [id number] Use as Unive rs Glucose 2-06 needed per ity of Control 00:00: [place] High&Low 00 er's Medical (ACCU-CHEK recommenda [facility] FOREST tions CONTROL SOLN) Soln Insulin 2021-02 Yes [id number] 50U inject 50 [facility] Glargine 2-06 Units ity of (LANTUS 00:00: under the [place] SOLOSTAR 00 skin at Medical U-100 bedtime. Branch INSULIN) 100 unit/mL (3 mL) injection Blood 2021-02 Yes [id number] Use as Unive rs Glucose 2-06 needed per ity of Control 00:00: manufact[place] High&Low 00 er's Medical (ACCU-CHEK recommenda [facility] FOREST tions CONTROL SOLN) Soln Insulin 2021-02 Yes [id number] 50U inject 50 Univers Glargine 2-06 Units ity of (LANTUS 00:00: under the [place] SOLOSTAR 00 skin at Medical U-100 bedtime. Branch INSULIN) 100 unit/mL (3 mL) injection Blood 2021-02 Yes [id number] Use as Unive rs Glucose 2-06 needed per ity of Control 00:00: [place] High&Low 00 er's Medical (ACCU-CHEK recommenda [facility] FOREST tions CONTROL SOLN) Soln Insulin 2021-02 Yes [id number] 50U inject 50 [facility] Glargine 2-06 Units ity of (LANTUS [facility] bedtime. Branch INSULIN) 100 unit/mL (3 mL) injection Blood 2021-02 Yes [id number] Use as Unive rs Glucose 2-06 needed per ity of Control 00:00: manufact[place] High&Low 00 er's Medical (ACCU-CHEK recommenda [facility] FOREST tions CONTROL SOLN) Soln Insulin 2021-02 Yes [id number] 50U inject 50 [facility] Glargine 2-06 Units ity of (LANTUS 00:00: under the [place] [address] skin at Medical U-100 bedtime. Branch INSULIN) 100 unit/mL (3 mL) injection Blood 2021-02 Yes [id number] Use as Unive rs Glucose 2-06 needed per ity of Control 00:00: manufact[place] High&Low 00 er's Medical (ACCU-CHEK recommenda [facility] FOREST tions CONTROL SOLN) Soln Insulin 2021-02 Yes [id number] 50U inject 50 [facility] Glargine 2-06 Units ity of (LANTUS 00:00: under [facility] [place] skin at Medical U-100 bedtime. Branch INSULIN) 100 unit/mL (3 mL) injection Blood 2021-02 Yes [id number] Use as Unive rs Glucose 2-06 needed per ity of Control 00:00: manufact[place] High&Low 00 er's Medical (ACCU-CHEK recommenda [facility] FOREST tions CONTROL SOLN) Soln Insulin 2021-02 Yes [id number] 50U inject 50 Univers Glargine 2-06 Units ity of (LANTUS 00:00: under the [place] SOLOSTAR 00 skin at Medical U-100 bedtime. Branch INSULIN) 100 unit/mL (3 mL) injection Blood 2021-02 Yes [id number] Use as Unive rs Glucose 2-06 needed per ity of Control 00:00: manufactur [place] High&Low 00 er's Medical (ACCU-CHEK recommenda [facility] FOREST tions CONTROL SOLN) Soln Insulin 2021-02 Yes [id number] 50U inject 50 [facility] Glargine 2-06 Units ity of (LANTUS 00:00: under the [place] SOLOSTAR 00 skin at Medical U-100 bedtime. Branch INSULIN) 100 unit/mL (3 mL) injection Blood 2021-02 Yes [id number] Use as Unive rs Glucose 2-06 needed per ity of Control 00:00: manufactur [place] High&Low 00 er's Medical (ACCU-CHEK recommenda [facility] FOREST tions CONTROL SOLN) Soln Insulin 2021-02 Yes [id number] 50U inject 50 [facility] Glargine 2-06 Units ity of (LANTUS 00:00: under the [place] SOLOSTNY 00 skin at Medical U-100 bedtime. Branch INSULIN) 100 unit/mL (3 mL) injection insulin 2021-02- No [id number] 40U inject 40 Univers aspart 2-06 02-14 Units ity of U-100 00:00: 00:00 under the [place] (NOVOLOG 00 :00 skin in Medical FLEXPEN the Branch U-100 morning INSULIN) and 40 100 unit/mL Units at (3 mL) noon and injection 40 Units in the evening. inject before meals. TAMSULOSIN 2021-02 Yes [id number] TAKE 1 Univers 0.4 mg 24 -18 9102 CAPSULE ity of hr capsule 00:00: [place] [facility] FINASTERIDE 2021-02 Yes [id number] TAKE 1 Univers 5 mg tablet -18 9102 TABLET ity of 00:00: EVERY DAY [address] MONTELUKAST 2021-02 Yes [id number] TAKE 1 Univers 10 mg 1-18 TABLET ity of tablet 00:00: EVERY DAY [address] ALLOPURINOL 2021-02 Yes [id number] TAKE 1 Univers 100 mg 1-18 TABLET ity of tablet 00:00: EVERY DAY [address] TAMSULOSIN 2021-02 Yes [id number] TAKE 1 Univers 0.4 mg 24 1-18 9102 CAPSULE ity of hr capsule 00:00: EVERY DAY [place] [facility] FINASTERIDE 2021-02 Yes [id number] TAKE 1 Univers 5 mg tablet 1-18 9102 TABLET ity of 00:00: EVERY DAY [place] [facility] MONTELUKAST 2021-02 Yes [id number] TAKE 1 Univers 10 mg 1-18 TABLET ity of tablet 00:00: EVERY DAY [place] [facility] ALLOPURINOL 2021-02 Yes [id number] TAKE 1 Univers 100 mg 1-18 TABLET ity of tablet 00:00: EVERY DAY [place] [facility] ESCITALOPRA 2021-02 Yes [id number] 10mg TAKE 1 Univers M OXALATE 1-18 TABLET BY ity o f 10 mg 00:00: MOUTH [place] tablet DAILY [facility] TAMSULOSIN 2021-02 Yes [id number] TAKE 1 Univers 0.4 mg 24 1-18 9102 CAPSULE ity of hr capsule 00:00: EVERY DAY [facility] FINASTERIDE 2021-02 Yes [id number] TAKE 1 Univers 5 mg tablet 1-18 9102 TABLET ity of 00:00: EVERY DAY [place] [facility] MONTELUKAST 2021-02 Yes [id number] TAKE 1 Univers 10 mg 1-18 TABLET ity of tablet 00:00: EVERY DAY [place] [facility] ALLOPURINOL 2021-02 Yes [id number] TAKE 1 Univers 100 mg 1-18 TABLET ity of tablet 00:00: EVERY DAY [place] [facility] ESCITALOPRA 2021-02 Yes [id number] 10mg TAKE 1 Univers M OXALATE 1-18 TABLET BY ity o f 10 mg 00:00: MOUTH [place] tablet 00 DAILY [facility] TAMSULOSIN 2021-02 Yes [id number] TAKE 1 Univers 0.4 mg 24 1-18 9102 CAPSULE ity of hr capsule 00:00: EVERY DAY [place] [facility] FINASTERIDE 2021-02 Yes [id number] TAKE 1 Univers 5 mg tablet 1-18 9102 TABLET ity of 00:00: EVERY DAY [address] MONTELUKAST 2021-02 Yes [id number] TAKE 1 Univers 10 mg 1-18 TABLET ity of tablet 00:00: EVERY DAY [place] [facility] ALLOPURINOL 2021-02 Yes [id number] TAKE 1 Univers 100 mg 1-18 TABLET ity of tablet 00:00: EVERY DAY [place] [facility] ESCITALOPRA 2021-02 Yes [id number] 10mg TAKE 1 Univers M OXALATE 1-18 TABLET BY ity o f 10 mg 00:00: MOUTH [place] tablet DAILY Medical [place] TAMSULOSIN 2021-02 Yes [id number] TAKE 1 Univers 0.4 mg 24 1-18 9102 CAPSULE ity of hr capsule 00:00: EVERY DAY [facility] FINASTERIDE 2021-02 Yes [id number] TAKE 1 Univers 5 mg tablet 1-18 9102 TABLET ity of 00:00: EVERY DAY [place] [facility] MONTELUKAST 2021-02 Yes [id number] TAKE 1 Univers 10 mg 1-18 TABLET ity of tablet 00:00: EVERY DAY [place] [facility] ALLOPURINOL 2021-02 Yes [id number] TAKE 1 Univers 100 mg 1-18 TABLET ity of tablet 00:00: EVERY DAY [place] [facility] ESCITALOPRA 2021-02 Yes [id number] 10mg TAKE 1 Univers M OXALATE 1-18 TABLET BY ity o f 10 mg 00:00: MOUTH [place] tablet DAILY [facility] TAMSULOSIN 2021-02 Yes [id number] TAKE 1 Univers 0.4 mg 24 1-18 9102 CAPSULE ity of hr capsule 00:00: EVERY DAY [facility] FINASTERIDE 2021-02 Yes [id number] TAKE 1 Univers 5 mg tablet 1-18 9102 TABLET ity of 00:00: EVERY DAY [place] [facility] MONTELUKAST 2021-02 Yes [id number] TAKE 1 Univers 10 mg 1-18 TABLET ity of tablet 00:00: EVERY DAY [place] [facility] ALLOPURINOL 2021-02 Yes [id number] TAKE 1 Univers 100 mg 1-18 TABLET ity of tablet 00:00: EVERY DAY [place] [facility] ESCITALOPRA 2021-02 Yes [id number] 10mg TAKE 1 Univers M OXALATE 1-18 TABLET BY ity o f 10 mg 00:00: MOUTH [place] tablet DAILY [facility] TAMSULOSIN 2021-02 Yes [id number] TAKE 1 Univers 0.4 mg 24 1-18 9102 CAPSULE ity of hr capsule 00:00: EVERY DAY [facility] FINASTERIDE 2021-02 Yes [id number] TAKE 1 Univers 5 mg tablet 1-18 9102 TABLET ity of 00:00: EVERY DAY [place] [facility] MONTELUKAST 2021-02 Yes [id number] TAKE 1 Univers 10 mg 1-18 TABLET ity of tablet 00:00: EVERY DAY [place] [facility] ALLOPURINOL 2021-02 Yes [id number] TAKE 1 Univers 100 mg 1-18 TABLET ity of tablet 00:00: EVERY DAY [place] [facility] ESCITALOPRA 2021-02 Yes [id number] 10mg TAKE 1 Univers M OXALATE 1-18 TABLET BY ity o f 10 mg 00:00: MOUTH [place] tablet DAILY [facility] [place] TAMSULOSIN 2021-02 Yes [id number] TAKE 1 Univers 0.4 mg 24 1-18 9102 CAPSULE ity of hr capsule 00:00: EVERY DAY [facility] FINASTERIDE 2021-02 Yes [id number] TAKE 1 Univers 5 mg tablet 1-18 9102 TABLET ity of 00:00: EVERY DAY [place] [facility] MONTELUKAST 2021-02 Yes [id number] TAKE 1 [facility] 10 mg 1-18 TABLET ity of tablet 00:00: EVERY DAY [place] [facility] ALLOPURINOL 2021-02 Yes [id number] TAKE 1 Univers 100 mg 1-18 TABLET ity of tablet 00:00: EVERY DAY [place] [facility] ESCITALOPRA 2021-02 Yes [id number] 10mg TAKE 1 Univers M OXALATE 1-18 TABLET BY ity o f 10 mg 00:00: MOUTH [place] tablet DAILY [facility] [place] TAMSULOSIN 2021-02 Yes [id number] TAKE 1 Univers 0.4 mg 24 1-18 9102 CAPSULE ity of hr capsule 00:00: EVERY DAY [facility] FINASTERIDE 2021-02 Yes [id number] TAKE 1 Univers 5 mg tablet 1-18 9102 TABLET ity of 00:00: EVERY DAY [place] [facility] MONTELUKAST 2021-02 Yes [id number] TAKE 1 Univers 10 mg 1-18 TABLET ity of tablet 00:00: EVERY DAY [place] [facility] ALLOPURINOL 2021-02 Yes [id number] TAKE 1 [facility] 100 mg 1-18 TABLET ity of tablet 00:00: EVERY DAY [place] [facility] ESCITALOPRA 2021-02 Yes [id number] 10mg TAKE 1 Univers M OXALATE 1-18 TABLET BY ity o f 10 mg 00:00: MOUTH [place] tablet DAILY [facility] [place] TAMSULOSIN 2021-02 Yes [id number] TAKE 1 Univers 0.4 mg 24 1-18 9102 CAPSULE ity of hr capsule 00:00: EVERY DAY [place] [facility] FINASTERIDE 2021-02 Yes [id number] TAKE 1 [facility] 5 mg tablet 1-18 9102 TABLET ity of 00:00: EVERY DAY [place] [facility] MONTELUKAST 2021-02 Yes [id number] TAKE 1 [facility] 10 mg 1-18 TABLET ity of tablet 00:00: EVERY DAY [place] [facility] ALLOPURINOL 2021-02 Yes [id number] TAKE 1 [facility] 100 mg 1-18 TABLET ity of tablet 00:00: EVERY DAY [place] [facility] ESCITALOPRA 2021-02 Yes [id number] 10mg TAKE 1 [facility] M OXALATE 1-18 TABLET BY ity o f 10 mg 00:00: MOUTH [place] tablet DAILY [facility] [place] TAMSULOSIN 2021-02 Yes [id number] TAKE 1 [facility] 0.4 mg 24 1-18 9102 CAPSULE ity of hr capsule 00:00: EVERY DAY [facility] FINASTERIDE 2021-02 Yes [id number] TAKE 1 [facility] 5 mg tablet 1-18 9102 TABLET ity of 00:00: EVERY DAY [place] [facility] MONTELUKAST 2021-02 Yes [id number] TAKE 1 [facility] 10 mg 1-18 TABLET ity of tablet 00:00: EVERY DAY [place] [facility] ALLOPURINOL 2021-02 Yes [id number] TAKE 1 [facility] 100 mg 1-18 TABLET ity of tablet 00:00: EVERY DAY [place] [facility] ESCITALOPRA 2021-02 Yes [id number] 10mg TAKE 1 [facility] M OXALATE 1-18 TABLET BY ity o f 10 mg 00:00: MOUTH [place] tablet DAILY [facility] TAMSULOSIN 2021-02 Yes [id number] TAKE 1 Univers 0.4 mg 24 1-18 9102 CAPSULE ity of hr capsule 00:00: EVERY DAY [place] [facility] FINASTERIDE 2021-02 Yes [id number] TAKE 1 [facility] 5 mg tablet 1-18 9102 TABLET ity of 00:00: EVERY DAY [address] MONTELUKAST 2021-02 Yes [id number] TAKE 1 [facility] 10 mg 1-18 TABLET ity of tablet 00:00: EVERY DAY [place] [facility] ALLOPURINOL 2021-02 Yes [id number] TAKE 1 [facility] 100 mg 1-18 TABLET ity of tablet 00:00: EVERY DAY [facility] ESCITALOPRA 2021-02 Yes [id number] 10mg TAKE 1 Univers M OXALATE 1-18 TABLET BY ity o f 10 mg 00:00: MOUTH [place] tablet 00 DAILY [facility] [place] TAMSULOSIN 2021-02 Yes [id number] TAKE 1 [facility] 0.4 mg 24 1-18 9102 CAPSULE ity of hr capsule 00:00: [place] [facility] FINASTERIDE 2021-02 Yes [id number] TAKE 1 [facility] 5 mg tablet 1-18 9102 TABLET ity of 00:00: EVERY DAY [place] [facility] MONTELUKAST 2021-02 Yes [id number] TAKE 1 [facility] 10 mg 1-18 TABLET ity of tablet 00:00: EVERY DAY [place] [facility] ALLOPURINOL 2021-02 Yes [id number] TAKE 1 [facility] 100 mg 1-18 TABLET ity of tablet 00:00: EVERY DAY [place] [facility] ESCITALOPRA 2021-02 Yes [id number] 10mg TAKE 1 [facility] M OXALATE 1-18 TABLET BY ity o f 10 mg 00:00: MOUTH [place] tablet DAILY [facility] [place] TAMSULOSIN 2021-02 Yes [id number] TAKE 1 [facility] 0.4 mg 24 1-18 9102 CAPSULE ity of hr capsule 00:00: EVERY DAY [place] [facility] FINASTERIDE 2021-02 Yes [id number] TAKE 1 [facility] 5 mg tablet 1-18 9102 TABLET ity of 00:00: EVERY DAY [place] [facility] MONTELUKAST 2021-02 Yes [id number] TAKE 1 [facility] 10 mg 1-18 TABLET ity of tablet 00:00: EVERY DAY [place] [facility] ALLOPURINOL 2021-02 Yes [id number] TAKE 1 [facility] 100 mg 1-18 TABLET ity of tablet 00:00: EVERY DAY [place] [facility] ESCITALOPRA 2021-02 Yes [id number] 10mg TAKE 1 [facility] M OXALATE 1-18 TABLET BY ity o f 10 mg 00:00: MOUTH [place] tablet 00 DAILY [facility] [place] TAMSULOSIN 2021-02 Yes [id number] TAKE 1 [facility] 0.4 mg 24 1-18 9102 CAPSULE ity of hr capsule 00:00: EVERY DAY [place] [facility] FINASTERIDE 2021-02 Yes [id number] TAKE 1 [facility] 5 mg tablet 1-18 9102 TABLET ity of 00:00: EVERY DAY [place] [facility] MONTELUKAST 2021-02 Yes [id number] TAKE 1 [facility] 10 mg 1-18 TABLET ity of tablet 00:00: EVERY DAY [place] [facility] ALLOPURINOL 2021-02 Yes [id number] TAKE 1 [facility] 100 mg 1-18 TABLET ity of tablet 00:00: EVERY DAY [place] [facility] ESCITALOPRA 2021-02 Yes [id number] 10mg TAKE 1 [facility] M OXALATE 1-18 TABLET BY ity o f 10 mg 00:00: MOUTH [place] tablet DAILY [facility] [place] TAMSULOSIN 2021-02 Yes [id number] TAKE 1 [facility] 0.4 mg 24 1-18 9102 CAPSULE ity of hr capsule 00:00: [place] DAY [place] [facility] FINASTERIDE 2021-02 Yes [id number] TAKE 1 [facility] 5 mg tablet 1-18 9102 TABLET ity of 00:00: EVERY DAY [place] [facility] MONTELUKAST 2021-02 Yes [id number] TAKE 1 [facility] 10 mg 1-18 TABLET ity of tablet 00:00: EVERY DAY [place] [facility] ALLOPURINOL 2021-02 Yes [id number] TAKE 1 [facility] 100 mg 1-18 TABLET ity of tablet 00:00: EVERY DAY [place] [facility] ESCITALOPRA 2021-02 Yes [id number] 10mg TAKE 1 [facility] M OXALATE 1-18 TABLET BY ity o f 10 mg 00:00: MOUTH [place] tablet DAILY [facility] [place] TAMSULOSIN 2021-02 Yes [id number] TAKE 1 [facility] 0.4 mg 24 1-18 9102 CAPSULE ity of hr capsule 00:00: [place] DAY [place] [facility] FINASTERIDE 2021-02 Yes [id number] TAKE 1 [facility] 5 mg tablet 1-18 9102 TABLET ity of 00:00: EVERY DAY [place] [facility] MONTELUKAST 2021-02 Yes [id number] TAKE 1 [facility] 10 mg 1-18 TABLET ity of tablet 00:00: EVERY DAY [address] ALLOPURINOL 2021-02 Yes [id number] TAKE 1 [facility] 100 mg 1-18 TABLET ity of tablet 00:00: EVERY DAY [place] 00 Medical [facility] ESCITALOPRA 2021-02 Yes [id number] 10mg TAKE 1 [facility] M OXALATE 1-18 TABLET BY ity o f 10 mg 00:00: MOUTH [place] tablet 00 DAILY Medical [facility] ESCITALOPRA 2021-02 Yes [id number] 10mg TAKE 1 [facility] M OXALATE 1-18 TABLET BY ity o f 10 mg 00:00: MOUTH [place] tablet 00 DAILY Medical [facility] ESCITALOPRA 2021-02 Yes [id number] 10mg TAKE 1 [facility] M OXALATE 1-18 TABLET BY ity o f 10 mg 00:00: MOUTH [place] tablet 00 DAILY Medical [facility] ESCITALOPRA 2021-02 Yes [id number] 10mg TAKE 1 [facility] M OXALATE 1-18 TABLET BY ity o f 10 mg 00:00: MOUTH [place] tablet 00 DAILY Medical [facility] ESCITALOPRA 2021-02 Yes [id number] 10mg TAKE 1 [facility] M OXALATE 1-18 TABLET BY ity o f 10 mg 00:00: MOUTH [place] tablet 00 DAILY Medical [facility] ESCITALOPRA 2021-02 Yes [id number] 10mg TAKE 1 [facility] M OXALATE 1-18 TABLET BY ity o f 10 mg 00:00: MOUTH [place] tablet 00 DAILY Medical [facility] ESCITALOPRA 2021-02 Yes [id number] 10mg TAKE 1 [facility] M OXALATE 1-18 TABLET BY ity o f 10 mg 00:00: MOUTH [place] tablet 00 DAILY Medical [facility] TAMSULOSIN 2021-02- No [id number] TAKE 1 [facility] 0.4 mg 24 03-12 9102 CAPSULE ity of hr capsule 00:00: 00:00 EVERY DAY [place] 00 :00 [facility] FINASTERIDE 2021-02- No [id number] TAKE 1 [facility] 5 mg tablet 03-12 9102 TABLET ity o f 00:00: 00:00 EVERY DAY [place] 00 :00 Medical Branch MONTELUKAST 2021-02- No [id number] TAKE 1 [facility] 10 mg 03-12 TABLET ity of tablet 00:00: 00:00 EVERY DAY [place] 00 :00 Medical Branch ALLOPURINOL 2021-02- No [id number] TAKE 1 [facility] 100 mg 03-12 TABLET ity of tablet 00:00: 00:00 EVERY DAY [place] 00 :00 Medical Branch Insulin 2021-02 Yes [id number] ADMINISTER [facility] [place] 02-24 50 UNITS ity of (LANTUS 00:00: UNDER THE [place] SOLOSTAR 00 SKIN EVERY Medic al U-100 NIGHT AT Branch INSULIN) BEDTIME 100 unit/mL (3 mL) injection Insulin 2021-02 Yes [id number] ADMINISTER [facility] Glargine 02-24 50 UNITS ity of (LANTUS 00:00: UNDER THE [place] SOLOSTAR 00 SKIN EVERY Medic al U-100 NIGHT AT Branch INSULIN) BEDTIME 100 unit/mL (3 mL) injection Insulin 2021-02 Yes [id number] ADMINISTER [facility] Glargine 02-24 50 UNITS ity of (LANTUS 00:00: UNDER THE [place] SOLOSTAR 00 SKIN EVERY Medic al U-100 NIGHT AT Branch INSULIN) BEDTIME 100 unit/mL (3 mL) injection Insulin 2021-02 Yes [id number] ADMINISTER [facility] Glargine 02-24 50 UNITS ity of (LANTUS 00:00: UNDER THE [place] SOLOSTAR 00 SKIN EVERY Medic al U-100 NIGHT AT Branch INSULIN) BEDTIME 100 unit/mL (3 mL) injection Insulin 2021-02 Yes [id number] ADMINISTER [facility] Glargine 02-24 50 UNITS ity of (LANTUS 00:00: UNDER THE [place] SOLOSTAR 00 SKIN EVERY Medic al U-100 NIGHT AT Branch INSULIN) BEDTIME 100 unit/mL (3 mL) injection Insulin 2021-02- No [id number] ADMINISTER [facility] Glargine 02-24 50 UNITS ity of (LANTUS 00:00: 00:00 UNDER THE [facility] SOLOSTAR 00 :00 SKIN EVERY Medic al U-100 NIGHT AT Branch INSULIN) BEDTIME 100 unit/mL (3 mL) injection METOPROLOL Yes [id number] TAKE 1 Un jb TARTRATE 50 9- TABLET BY ity of mg tablet 00:00: MOUTH TWICE Medical DAILY Branch TAMSULOSIN Yes [id number] .4mg TAKE 1 [facility] 0.4 mg 24 11-15 9102 CAPSULE BY ity of hr capsule 00:00: MOUTH DAILY Medical Branch TAMSULOSIN Yes [id number] .4mg TAKE 1 [facility] 0.4 mg 24 11-15 9102 CAPSULE BY ity of hr capsule 00:00: MOUTH DAILY Medical Branch METOPROLOL 2022-0 Yes [id number] TAKE 1 Un jb TARTRATE 50 9-23 TABLET BY ity of mg tablet 00:00: MOUTH TWICE Medical DAILY Branch METOPROLOL 2021-0 Yes [id number] TAKE 1 Un jb TARTRATE 50 9-23 TABLET BY ity of mg tablet 00:00: MOUTH TWICE Medical DAILY Branch METOPROLOL 2021-0 Yes [id number] TAKE 1 Un jb TARTRATE 50 9-23 TABLET BY ity of mg tablet 00:00: MOUTH TWICE Medical DAILY Branch METOPROLOL 2021-0 Yes [id number] TAKE 1 Un jb TARTRATE 50 9-23 TABLET BY ity of mg tablet 00:00: MOUTH TWICE Medical DAILY Branch METOPROLOL 2021-0 Yes [id number] TAKE 1 Un jb TARTRATE 50 9-23 TABLET BY ity of mg tablet 00:00: TWICE Medical DAILY Branch METOPROLOL 2021-0 Yes [id number] TAKE 1 Un jb TARTRATE 50 9-23 TABLET BY ity of mg tablet 00:00: TWICE Medical DAILY Branch METOPROLOL 2021-0 Yes [id number] TAKE 1 Un jb TARTRATE 50 9-23 TABLET BY ity of mg tablet 00:00: TWICE Medical DAILY Branch METOPROLOL 2021-0 Yes [id number] TAKE 1 Un jb TARTRATE 50 9-23 TABLET BY ity of mg tablet 00:00: TWICE Medical DAILY Branch METOPROLOL 2021-0 Yes [id number] TAKE 1 Un jb TARTRATE 50 9-23 TABLET BY ity of mg tablet 00:00: TWICE Medical DAILY Branch METOPROLOL 2021-0 Yes [id number] TAKE 1 Un jb TARTRATE 50 9-23 TABLET BY ity of mg tablet 00:00: MOUTH TWICE Medical DAILY Branch METOPROLOL 2021-0 Yes [id number] TAKE 1 Un jb TARTRATE 50 9-23 TABLET BY ity of mg tablet 00:00: TWICE Medical DAILY Branch METOPROLOL 2021-0 Yes [id number] TAKE 1 Un jb TARTRATE 50 9-23 TABLET BY ity of mg tablet 00:00: MOUTH TWICE Medical DAILY Branch METOPROLOL 2021-0 Yes [id number] TAKE 1 Un jb TARTRATE 50 9-23 TABLET BY ity of mg tablet 00:00: TWICE Medical DAILY Branch METOPROLOL 2021-0 Yes [id number] TAKE 1 Un jb TARTRATE 50 9-23 TABLET BY ity of mg tablet 00:00: TWICE Medical DAILY Branch METOPROLOL 2021-0 Yes [id number] TAKE 1 Un jb TARTRATE 50 9-23 TABLET BY ity of mg tablet 00:00: TWICE Medical DAILY Branch METOPROLOL 2021-0 Yes [id number] TAKE 1 Un jb TARTRATE 50 9-23 TABLET BY ity of mg tablet 00:00: MOUTH TWICE Medical DAILY Branch METOPROLOL 2021-0 Yes [id number] TAKE 1 Un jb TARTRATE 50 9-23 TABLET BY ity of mg tablet 00:00: TWICE Medical DAILY Branch METOPROLOL 2021-0 Yes [id number] TAKE 1 Un jb TARTRATE 50 9-23 TABLET BY ity of mg tablet 00:00: TWICE Medical DAILY Branch METOPROLOL 2021-0 Yes [id number] TAKE 1 Un jb TARTRATE 50 9-23 TABLET BY ity of mg tablet 00:00: MOUTH TWICE Medical DAILY Branch METOPROLOL 2021-0 Yes [id number] TAKE 1 Un jb TARTRATE 50 9-23 TABLET BY ity of mg tablet 00:00: TWICE Medical DAILY Branch METOPROLOL 2021-0 Yes [id number] TAKE 1 Un jb TARTRATE 50 9-23 TABLET BY ity of mg tablet 00:00: [facility] TWICE Medical DAILY Branch METOPROLOL 2021-0 Yes [id number] TAKE 1 Un jb TARTRATE 50 9-23 TABLET BY ity of mg tablet 00:00: MOUTH TWICE Medical DAILY Branch METOPROLOL 2021-0 Yes [id number] TAKE 1 Un jb TARTRATE 50 9-23 TABLET BY ity of mg tablet 00:00: TWICE Medical DAILY Branch METOPROLOL 2021-0 Yes [id number] TAKE 1 Un jb TARTRATE 50 9-23 TABLET BY ity of mg tablet 00:00: [facility] TWICE Medical DAILY Branch TAMSULOSIN 2-0 2022- No [id number] .4mg TAKE 1 Univers 0.4 mg 24 11-15 CAPSULE BY ity of hr capsule 00:00: 00:00 MOUTH [place] 00 :00 DAILY Medical Branch nystatin 2021-0 Yes [id number] Apply to [facility] 100,000 9-16 area(s) 2 ity of unit/gram 00:00: (two) [place] powder 00 times Medical daily. Branch enalapril 2021-0 Yes [id number] 20mg Take 1 Uni vers 20 mg 9-16 tablet by ity of tablet 00:00: mouth in [place] 00 the Medical morning. Branch furosemide 2021-0 Yes [id number] 40mg Take 1 Univers (LASIX) 40 9-16 tablet by ity of mg tablet 00:00: mouth in [facility] 00 the Medical morning. Branch nystatin 2021-0 Yes [id number] Apply to [facility] 100,000 9-16 area(s) 2 ity of unit/gram 00:00: (two) [place] powder 00 times Medical daily. Branch enalapril 2021-0 Yes [id number] 20mg Take 1 Uni vers 20 mg 9-16 tablet by ity of tablet 00:00: mouth in [place] 00 the Medical morning. Branch furosemide 2021-0 Yes [id number] 40mg Take 1 Univers (LASIX) 40 9-16 tablet by ity of mg tablet 00:00: mouth in [facility] the Medical morning. Branch nystatin 2021-0 Yes [id number] Apply to [facility] 100,000 9-16 area(s) 2 ity of unit/gram 00:00: (two) [place] powder 00 times Medical daily. Branch enalapril 2021-0 Yes [id number] 20mg Take 1 Uni vers 20 mg 9-16 tablet by ity of tablet 00:00: mouth in [place] 00 the Medical morning. Branch furosemide 2021-0 Yes [id number] 40mg Take 1 Univers (LASIX) 40 9-16 tablet by ity of mg tablet 00:00: mouth in [facility] 00 the Medical morning. Branch nystatin 2021-0 Yes [id number] Apply to [facility] 100,000 9-16 area(s) 2 ity of unit/gram 00:00: (two) [place] powder 00 times Medical daily. Branch enalapril 2021-0 Yes [id number] 20mg Take 1 Uni vers 20 mg 9-16 tablet by ity of tablet 00:00: mouth in [place] 00 the Medical morning. Branch furosemide 2021-0 Yes [id number] 40mg Take 1 [facility] (LASIX) 40 9-16 tablet by ity of mg tablet 00:00: [place] the Medical morning. Branch nystatin 2021-0 Yes [id number] Apply to [facility] 100,000 916 area(s) 2 ity of unit/gram 00:00: (two) [place] powder 00 times Medical daily. Branch enalapril 2021-0 Yes [id number] 20mg Take 1 Uni vers 20 mg 9-16 tablet by ity of tablet 00:00: mouth in [place] 00 the Medical morning. Branch furosemide 2021-0 Yes [id number] 40mg Take 1 Univers (LASIX) 40 9-16 tablet by ity of mg tablet 00:00: mouth in [facility] the Medical morning. Branch nystatin 2021-0 Yes [id number] Apply to [facility] 100,000 916 area(s) 2 ity of unit/gram 00:00: (two) [place] powder 00 times Medical daily. Branch enalapril 2021-0 Yes [id number] 20mg Take 1 Uni vers 20 mg 9-16 tablet by ity of tablet 00:00: mouth in [place] the Medical morning. Branch furosemide 2021-0 Yes [id number] 40mg Take 1 Univers (LASIX) 40 9-16 tablet by ity of mg tablet 00:00: mouth in [facility] the Medical morning. Branch nystatin 2021-0 Yes [id number] Apply to [facility] 100,000 916 area(s) 2 ity of unit/gram 00:00: (two) [place] powder 00 times Medical daily. Branch enalapril 2021-0 Yes [id number] 20mg Take 1 Uni vers 20 mg 9-16 tablet by ity of tablet 00:00: mouth in [place] 00 the Medical morning. Branch furosemide 2021-0 Yes [id number] 40mg Take 1 Univers (LASIX) 40 9-16 tablet by ity of mg tablet 00:00: mouth in [facility] 00 the Medical morning. Branch nystatin 2021-0 Yes [id number] Apply to [facility] 100,000 9-16 area(s) 2 ity of unit/gram 00:00: (two) [place] powder 00 times Medical daily. Branch enalapril 2021-0 Yes [id number] 20mg Take 1 Uni vers 20 mg 9-16 tablet by ity of tablet 00:00: mouth in [place] 00 the Medical morning. Branch furosemide 2021-0 Yes [id number] 40mg Take 1 [facility] (LASIX) 40 9-16 tablet by ity of mg tablet 00:00: [place] the Medical morning. Branch nystatin 2021-0 Yes [id number] Apply to [facility] 100,000 9-16 area(s) 2 ity of unit/gram 00:00: (two) [place] powder 00 times Medical daily. Branch enalapril 2021-0 Yes [id number] 20mg Take 1 [facility] vers 20 mg 9-16 tablet by ity of tablet 00:00: mouth in [place] 00 the Medical morning. Branch furosemide 2021-0 Yes [id number] 40mg Take 1 Univers (LASIX) 40 9-16 tablet by ity of mg tablet 00:00: mouth in [facility] s the Medical morning. Branch nystatin 2021-0 Yes [id number] Apply to [facility] 100,000 9-16 area(s) 2 ity of unit/gram 00:00: (two) [place] powder 00 times Medical daily. Branch enalapril 2021-0 Yes [id number] 20mg Take 1 Uni vers 20 mg 9-16 tablet by ity of tablet 00:00: mouth in [place] 00 the Medical morning. Branch furosemide 2021-0 Yes [id number] 40mg Take 1 Univers (LASIX) 40 9-16 tablet by ity of mg tablet 00:00: mouth in [facility] s the Medical morning. Branch nystatin 2021-0 Yes [id number] Apply to [facility] 100,000 9-16 area(s) 2 ity of unit/gram 00:00: (two) [place] powder 00 times Medical daily. Branch enalapril 2021-0 Yes [id number] 20mg Take 1 Uni vers 20 mg 9-16 tablet by ity of tablet 00:00: mouth in [place] 00 the Medical morning. Branch furosemide 2021-0 Yes [id number] 40mg Take 1 Univers (LASIX) 40 9-16 tablet by ity of mg tablet 00:00[place] the Medical morning. Branch nystatin 2021-0 Yes [id number] Apply to [facility] 100,000 9-16 area(s) 2 ity of unit/gram 00:00: (two) [place] powder 00 times Medical daily. Branch enalapril 2021-0 Yes [id number] 20mg Take 1 Uni vers 20 mg 9-16 tablet by ity of tablet 00:00: mouth in [place] 00 the Medical morning. Branch furosemide 2021-0 Yes [id number] 40mg Take 1 Univers (LASIX) 40 9-16 tablet by ity of mg tablet 00:00: mouth in [facility] s 00 the Medical morning. Branch nystatin 2021-0 Yes [id number] Apply to [facility] 100,000 9-16 area(s) 2 ity of unit/gram 00:00: (two) [place] powder 00 times Medical daily. Branch enalapril 2021-0 Yes [id number] 20mg Take 1 Uni vers 20 mg 9-16 tablet by ity of tablet 00:00: mouth in [place] 00 the Medical morning. Branch furosemide 2021-0 Yes [id number] 40mg Take 1 Univers (LASIX) 40 9-16 tablet by ity of mg tablet 00:00: mouth in [facility] the Medical morning. Branch nystatin 2021-0 Yes [id number] Apply to [facility] 100,000 9-16 area(s) 2 ity of unit/gram 00:00: (two) [place] powder 00 times Medical daily. Branch enalapril 2021-0 Yes [id number] 20mg Take 1 Uni vers 20 mg 9-16 tablet by ity of tablet 00:00: mouth in [place] 00 the Medical morning. Branch furosemide 2021-0 Yes [id number] 40mg Take 1 [facility] (LASIX) 40 9-16 tablet by ity of mg tablet 00:00: [place] 00 the Medical morning. Branch nystatin 2021-0 Yes [id number] Apply to [facility] 100,000 9-16 area(s) 2 ity of unit/gram 00:00: (two) [place] powder 00 times Medical daily. Branch furosemide 2021-0 Yes [id number] 40mg Take 1 Univers (LASIX) 40 9-16 tablet by ity of mg tablet 00:00: [place] 00 the Medical morning. Branch nystatin 2021-0 Yes [id number] Apply to [facility] 100,000 9-16 area(s) 2 ity of unit/gram 00:00: (two) [place] powder 00 times Medical daily. Branch furosemide 2-0 Yes [id number] 40mg Take 1 Univers (LASIX) 40 9-16 tablet by ity of mg tablet 00:00: [place] 00 the Medical morning. Branch nystatin 2021-0 Yes [id number] Apply to [facility] 100,000 9-16 area(s) 2 ity of unit/gram 00:00: (two) [place] powder 00 times Medical daily. Branch furosemide 2021-0 Yes [id number] 40mg Take 1 [facility] (LASIX) 40 9-16 tablet by ity of mg tablet 00:00: [place] 00 the Medical morning. Branch nystatin 2021-0 Yes [id number] Apply to [facility] 100,000 9-16 area(s) 2 ity of unit/gram 00:00: (two) [place] powder 00 times Medical daily. Branch furosemide 2021-0 Yes [id number] 40mg Take 1 [facility] (LASIX) 40 9-16 tablet by ity of mg tablet 00:00: [place] 00 the Medical morning. Branch nystatin 2021-0 Yes [id number] Apply to [facility] 100,000 9-16 area(s) 2 ity of unit/gram 00:00: (two) [place] powder 00 times Medical daily. Branch furosemide 2021-0 Yes [id number] 40mg Take 1 Univers (LASIX) 40 9-16 tablet by ity of mg tablet 00:00: [place] 00 the Medical morning. Branch nystatin 2-0 Yes [id number] Apply to [facility] 100,000 9-16 area(s) 2 ity of unit/gram 00:00: (two) [place] powder 00 times Medical daily. Branch furosemide 2-0 Yes [id number] 40mg Take 1 [facility] (LASIX) 40 9-16 tablet by ity of mg tablet 00:00: [place] 00 the Medical morning. Branch nystatin 2-0 Yes [id number] Apply to U [facility] 100,000 9-16 area(s) 2 ity of unit/gram 00:00: (two) [place] powder 00 times Medical daily. Branch furosemide 2-0 Yes [id number] 40mg Take 1 [facility] (LASIX) 40 9-16 tablet by ity of mg tablet 00:00: [place] 00 the Medical morning. Branch nystatin 2-0 Yes [id number] Apply to U [facility] 100,000 9-16 area(s) 2 ity of unit/gram 00:00: (two) [place] powder 00 times Medical daily. Branch furosemide 2-0 Yes [id number] 40mg Take 1 [facility] (LASIX) 40 9-16 tablet by ity of mg tablet 00:00: [place] 00 the Medical morning. Branch nystatin 2-0 Yes [id number] Apply to U [facility] 100,000 9-16 area(s) 2 ity of unit/gram 00:00: (two) [place] powder 00 times Medical daily. Branch furosemide 2-0 Yes [id number] 40mg Take 1 [facility] (LASIX) 40 9-16 tablet by ity of mg tablet 00:00: [place] 00 the Medical morning. Branch nystatin 2-0 Yes [id number] Apply to U [facility] 100,000 9-16 area(s) 2 ity of unit/gram 00:00: (two) [place] powder 00 times Medical daily. Branch furosemide 2021-0 Yes [id number] 40mg Take 1 [facility] (LASIX) 40 9-16 tablet by ity of mg tablet 00:00: [place] 00 the Medical morning. Branch nystatin 2-0 Yes [id number] Apply to U [facility] 100,000 9-16 area(s) 2 ity of unit/gram 00:00: (two) [place] powder 00 times Medical daily. Branch furosemide 2-0 Yes [id number] 40mg Take 1 [facility] (LASIX) 40 9-16 tablet by ity of mg tablet 00:00: [place] 00 the Medical morning. Branch nystatin 2022-0 Yes [id number] Apply to U [facility] 100,000 9-16 area(s) 2 ity of unit/gram 00:00: (two) [place] powder 00 times Medical daily. Branch furosemide 2022-0 Yes [id number] 40mg Take 1 [facility] (LASIX) 40 9-16 tablet by ity of mg tablet 00:00: [place] 00 the Medical morning. Branch nystatin 2022-0 Yes [id number] Apply to U [facility] 100,000 9-16 area(s) 2 ity of unit/gram 00:00: (two) [place] powder 00 times Medical daily. Branch nystatin Yes [id number] Apply to U [facility] 100,000 9-16 area(s) 2 ity of unit/gram 00:00: (two) [place] powder 00 times Medical daily. Branch furosemide 2022- No [id number] 40mg Take 1 Univers (LASIX) 40 11-08 08-15 tablet by ity of mg tablet 00:00: 00:00 mouth in [place] 00 :00 the Medical morning. Branch enalapril 2- No [id number] 20mg Take 1 Un jb 20 mg 11-0807 tablet by ity of tablet 00:00: 00:00 mouth in [place] 00 :00 the Medical morning. Branch enalapril 2021- No [id number] 20mg Take 1 Un jb 20 mg 11-08 12-07 tablet by ity of tablet 00:00: 00:00 mouth in [place] 00 :00 the Medical morning. Branch enalapril 2- No [id number] 20mg Take 1 Un jb 20 mg 11-08 12-07 tablet by ity of tablet 00:00: 00:00 mouth in [place] 00 :00 the Medical morning. Branch clotrimazol 2- No [id number] Apply to Univers e 1 % -11-23 area(s) 2 ity of solution 00:00: 04:59 (two) [place] 00 :00 times Medical daily for Branch 14 days. clotrimazol 2- No [id number] Apply to Univers e 1 % 9-16 - area(s) 2 ity of solution 00:00: 04:59 (two) [place] 00 :00 times Medical daily for Branch 14 days. clotrimazol 2021- No [id number] Apply to Univers e 1 % 9-16 10- area(s) 2 ity of solution 00:00: 04:59 (two) [place] 00 :00 times Medical daily for Branch 14 days. clotrimazol 2- No [id number] Apply to Univers e 1 % 9-16 10-01 area(s) 2 ity of solution 00:00: 04:59 (two) [place] 00 :00 times Medical daily for Branch 14 days. PREGABALIN 2022-0 Yes [id number] TAKE 1 Univers 75 mg 8-16 CAPSULE BY ity of capsule 00:00: [place] [address] THREE Medical TIMES Branch DAILY PREGABALIN 2022-0 Yes [id number] TAKE 1 Univers 75 mg 8-16 CAPSULE BY ity of capsule 00:00: [facility] THREE Medical TIMES Branch DAILY PREGABALIN 2022-0 Yes [id number] TAKE 1 Univers 75 mg 8-16 CAPSULE BY ity of capsule 00:00: [facility] THREE Medical TIMES Branch DAILY PREGABALIN 2022-0 Yes [id number] TAKE 1 Univers 75 mg 8-16 CAPSULE BY ity of capsule 00:00: [facility] THREE Medical TIMES Branch DAILY PREGABALIN 2022-0 Yes [id number] TAKE 1 Univers 75 mg 8-16 CAPSULE BY ity of capsule 00:00: [facility] THREE Medical TIMES Branch DAILY PREGABALIN 2022-0 Yes [id number] TAKE 1 Univers 75 mg 8-16 CAPSULE BY ity of capsule 00:00: [facility] THREE Medical TIMES Branch DAILY PREGABALIN 2022-0 Yes [id number] TAKE 1 Univers 75 mg 8-16 CAPSULE BY ity of capsule 00:00: [facility] THREE Medical TIMES Branch DAILY PREGABALIN 2022-0 Yes [id number] TAKE 1 Univers 75 mg 8-16 CAPSULE BY ity of capsule 00:00: [facility] THREE Medical TIMES Branch DAILY PREGABALIN 2022-0 Yes [id number] TAKE 1 Univers 75 mg 8-16 CAPSULE BY ity of capsule 00:00: [facility] THREE Medical TIMES Branch DAILY PREGABALIN 2022-0 Yes [id number] TAKE 1 Univers 75 mg 8-16 CAPSULE BY ity of capsule 00:00: [facility] THREE Medical TIMES Branch DAILY PREGABALIN 2022-0 Yes [id number] TAKE 1 Univers 75 mg 8-16 CAPSULE BY ity of capsule 00:00: [place] [address] THREE Medical TIMES Branch DAILY PREGABALIN 2022-0 2022- No [id number] TAKE 1 Univers 75 mg 8-16 12-07 CAPSULE BY ity of capsule 00:00: 00:00 MOUTH [place] 00 :00 THREE Medical TIMES Branch DAILY PREGABALIN 2021-0 2021- No [id number] TAKE 1 Univers 75 mg 8-16 12-07 CAPSULE BY ity of capsule 00:00: 00:00 MOUTH [place] 00 :00 THREE Medical TIMES Branch DAILY PREGABALIN 2-0 2021- No [id number] TAKE 1 Univers 75 mg 8-16 12-07 CAPSULE BY ity of capsule 00:00: 00:00 MOUTH [place] 00 :00 THREE Medical TIMES Branch DAILY PREGABALIN 2021-0 2021- No [id number] TAKE 1 [facility] 75 mg 8-16 12-07 CAPSULE BY ity of capsule 00:00: 00:00 MOUTH [place] 00 :00 THREE Medical TIMES Branch DAILY PREGABALIN 2021-0 2021- No [id number] TAKE 1 [facility] 75 mg 8-16 12-07 CAPSULE BY ity of capsule 00:00: 00:00 MOUTH [place] 00 :00 THREE Medical TIMES Branch DAILY PREGABALIN 2-0 2021- No [id number] TAKE 1 [facility] 75 mg 8-16 12-07 CAPSULE BY ity of capsule 00:00: 00:00 [facility] 00 :00 THREE Medical TIMES Branch DAILY NOVOLOG 2021-0 Yes [id number] INJECT 40 Univers FLEXPEN 7-22 UNITS ity of U-100 00:00: UNDER THE [place] INSULIN 100 00 SKIN THREE Me dical unit/mL (3 TIMES Branch mL) DAILY. injection NOVOLOG 2021-0 Yes [id number] INJECT 40 [facility] FLEXPEN 7-22 UNITS ity of U-100 00:00: UNDER THE [place] INSULIN 100 00 SKIN THREE Me dical unit/mL (3 TIMES Branch mL) DAILY. injection NOVOLOG 2021-0 Yes [id number] INJECT 40 [facility] FLEXPEN 7-22 UNITS ity of U-100 00:00: UNDER THE [place] INSULIN 100 00 SKIN THREE Me dical unit/mL (3 TIMES Branch mL) DAILY. injection NOVOLOG 2021-0 Yes [id number] INJECT 40 [facility] FLEXPEN 7-22 UNITS ity of U-100 00:00: UNDER THE [place] INSULIN 100 00 SKIN THREE Me dical unit/mL (3 TIMES Branch mL) DAILY. injection NOVOLOG 2021-0 Yes [id number] INJECT 40 [facility] FLEXPEN 7-22 UNITS ity of U-100 00:00: UNDER THE [place] INSULIN 100 00 SKIN THREE Me dical unit/mL (3 TIMES Branch mL) DAILY. injection NOVOLOG 0 Yes [id number] INJECT 40 [facility] FLEXPEN 7-22 UNITS ity of U-100 00:00: UNDER THE [place] INSULIN 100 00 SKIN THREE Me dical unit/mL (3 TIMES Branch mL) DAILY. injection NOVOLOG 0 Yes [id number] INJECT 40 [facility] FLEXPEN 7-22 UNITS ity of U-100 00:00: UNDER THE [place] INSULIN 100 00 SKIN THREE Me dical unit/mL (3 TIMES Branch mL) DAILY. injection NOVOLOG 0 Yes [id number] INJECT 40 [facility] FLEXPEN 7-22 UNITS ity of U-100 00:00: UNDER THE [place] INSULIN 100 00 SKIN THREE Me dical unit/mL (3 TIMES Branch mL) DAILY. injection NOVOLOG Yes [id number] INJECT 40 [facility] FLEXPEN 7-22 UNITS it[facility] of U-100 00:00: UNDER THE [place] INSULIN 100 00 SKIN THREE Me dical unit/mL (3 TIMES Branch mL) DAILY. injection NOVOLOG 0 Yes [id number] INJECT 40 [facility] FLEXPEN 7-22 UNITS ity of U-100 00:00: UNDER THE [place] INSULIN 100 00 SKIN THREE Me dical unit/mL (3 TIMES Branch mL) DAILY. injection NOVOLOG 2021- No [id number] INJECT 40 [facility] FLEXPEN 7-22 12-06 UNITS ity of U-100 00:00: 00:00 UNDER THE [place] INSULIN 100 00 :00 SKIN THREE Me dical unit/mL (3 TIMES Branch mL) DAILY. injection montelukast Yes [id number] 10mg Take 1 [facility] 10 mg 6-23 tablet by ity of tablet 00:00: mouth daily. Medical Branch metoprolol 0 Yes [id number] 50mg Take 1 Un jb tartrate 50 6-23 tablet by ity of mg tablet 00:00: mouth 2 (two) Medical times Branch daily. tamsulosin Yes [id number] .4mg Take 1 [facility] 0.4 mg 24 6-23 9102 capsule by ity of hr capsule 00:00: mouth daily. Medical Branch finasteride 0 Yes [id number] 5mg Take 1 [facility] 5 mg tablet 6-23 9102 tablet by ity of 00:00: mouth [place] 00 daily. Medical Branch albuterol 2021-0 Yes [id number] 2.5mg Inhale 3 [facility] 2.5 mg /3 6-23 mL every 6 ity of mL (0.083 00:00: (six) [place] %) 00 hours as Medical nebulizer needed for Bran ch solution Wheezing or Shortness of Breath. allopurinoL 0 Yes [id number] 100mg Take 1 [facility] 100 mg 6-23 tablet by ity of tablet 00:00: mouth [place] 00 daily. Medical Branch montelukast 2021-0 Yes [id number] 10mg Take 1 [facility] 10 mg 6-23 tablet by ity of tablet 00:00: mouth [place] 00 daily. Medical Branch metoprolol 0 Yes [id number] 50mg Take 1 Un jb tartrate 50 6-23 tablet by ity of mg tablet 00:00: mouth 2 [place] 00 (two) Medical times Branch daily. tamsulosin 0 Yes [id number] .4mg Take 1 [facility] 0.4 mg 24 6-23 9102 capsule by ity of hr capsule 00:00: mouth [place] 00 daily. Medical Branch finasteride 0 Yes [id number] 5mg Take 1 [facility] 5 mg tablet 6-23 9102 tablet by ity of 00:00: mouth [place] 00 daily. Medical Branch albuterol 0 Yes [id number] 2.5mg Inhale 3 [facility] 2.5 mg /3 6-23 mL every 6 ity of mL (0.083 00:00: (six) [place] %) 00 hours as Medical nebulizer needed for Bran ch solution Wheezing or Shortness of Breath. allopurinoL 2021-0 Yes [id number] 100mg Take 1 [facility] 100 mg 6-23 tablet by ity of tablet 00:00: mouth [place] 00 daily. Medical Branch montelukast 2021-0 Yes [id number] 10mg Take 1 [facility] 10 mg 6-23 tablet by ity of tablet 00:00: mouth [place] 00 daily. Medical Branch tamsulosin 2021-0 Yes [id number] .4mg Take 1 [facility] 0.4 mg 24 6-23 9102 capsule by ity of hr capsule 00:00: mouth [place] 00 daily. Medical Branch finasteride 2021-0 Yes [id number] 5mg Take 1 [facility] 5 mg tablet 6-23 9102 tablet by ity of 00:00: mouth [place] 00 daily. Medical Branch albuterol 2021-0 Yes [id number] 2.5mg Inhale 3 [facility] 2.5 mg /3 6-23 mL every 6 ity of mL (0.083 00:00: (six) [place] %) 00 hours as Medical nebulizer needed for Bran ch solution Wheezing or Shortness of Breath. allopurinoL 2021-0 Yes [id number] 100mg Take 1 [facility] 100 mg 6-23 tablet by ity of tablet 00:00: mouth [place] 00 daily. Medical Branch montelukast 2021-0 Yes [id number] 10mg Take 1 [facility] 10 mg 6-23 tablet by ity of tablet 00:00: mouth [place] 00 daily. Medical Branch finasteride 0 Yes [id number] 5mg Take 1 [facility] 5 mg tablet 6-23 9102 tablet by ity of 00:00: mouth [place] 00 daily. Medical Branch albuterol 2021-0 Yes [id number] 2.5mg Inhale 3 [facility] 2.5 mg /3 6-23 mL every 6 ity of mL (0.083 00:00: (six) [place] %) 00 hours as Medical nebulizer needed for Bran ch solution Wheezing or Shortness of Breath. allopurinoL 0 Yes [id number] 100mg Take 1 [facility] 100 mg 6-23 tablet by ity of tablet 00:00: mouth [place] 00 daily. Medical Branch montelukast 2021-0 Yes [id number] 10mg Take 1 [facility] 10 mg 6-23 tablet by ity of tablet 00:00: mouth [place] 00 daily. Medical Branch finasteride 2021-0 Yes [id number] 5mg Take 1 [facility] 5 mg tablet 6-23 9102 tablet by ity of 00:00: mouth [place] 00 daily. Medical Branch albuterol 2021-0 Yes [id number] 2.5mg Inhale 3 [facility] 2.5 mg /3 6-23 mL every 6 ity of mL (0.083 00:00: (six) [place] %) 00 hours as Medical nebulizer needed for Bran ch solution Wheezing or Shortness of Breath. allopurinoL 2021-0 Yes [id number] 100mg Take 1 [facility] 100 mg 6-23 tablet by ity of tablet 00:00: mouth [place] 00 daily. Medical Branch albuterol 2021-0 Yes [id number] 2.5mg Inhale 3 [facility] 2.5 mg /3 6-23 mL every 6 ity of mL (0.083 00:00: (six) [place] %) 00 hours as Medical nebulizer needed for Bran ch solution Wheezing or Shortness of Breath. albuterol 2021-0 Yes [id number] 2.5mg Inhale 3 [facility] 2.5 mg /3 6-23 mL every 6 ity of mL (0.083 00:00: (six) [place] %) 00 hours as Medical nebulizer needed for Bran ch solution Wheezing or Shortness of Breath. albuterol 2021-0 Yes [id number] 2.5mg Inhale 3 [facility] 2.5 mg /3 6-23 mL every 6 ity of mL (0.083 00:00: (six) [place] %) 00 hours as Medical nebulizer needed for Bran ch solution Wheezing or Shortness of Breath. albuterol 2021-0 Yes [id number] 2.5mg Inhale 3 [facility] 2.5 mg /3 6-23 mL every 6 ity of mL (0.083 00:00: (six) [place] %) 00 hours as Medical nebulizer needed for Bran ch solution Wheezing or Shortness of Breath. albuterol 2021-0 Yes [id number] 2.5mg Inhale 3 [facility] 2.5 mg /3 6-23 mL every 6 ity of mL (0.083 00:00: (six) [place] %) 00 hours as Medical nebulizer needed for Bran ch solution Wheezing or Shortness of Breath. albuterol 2021-0 Yes [id number] 2.5mg Inhale 3 [facility] 2.5 mg /3 6-23 mL every 6 ity of mL (0.083 00:00: (six) [place] %) 00 hours as Medical nebulizer needed for Bran ch solution Wheezing or Shortness of Breath. albuterol 2021-0 Yes [id number] 2.5mg Inhale 3 [facility] 2.5 mg /3 6-23 mL every 6 ity of mL (0.083 00:00: (six) [place] %) 00 hours as Medical nebulizer needed for Bran ch solution Wheezing or Shortness of Breath. albuterol 2021-0 Yes [id number] 2.5mg Inhale 3 [facility] 2.5 mg /3 6-23 mL every 6 ity of mL (0.083 00:00: (six) [place] %) 00 hours as Medical nebulizer needed for Bran ch solution Wheezing or Shortness of Breath. albuterol 2-0 Yes [id number] 2.5mg Inhale 3 [facility] 2.5 mg /3 6-23 mL every 6 ity of mL (0.083 00:00: (six) [place] %) 00 hours as Medical nebulizer needed for Bran ch solution Wheezing or Shortness of Breath. albuterol 2021-0 Yes [id number] 2.5mg Inhale 3 [facility] 2.5 mg /3 6-23 mL every 6 ity of mL (0.083 00:00: ([facility]) [place] %) 00 hours as Medical nebulizer needed for Bran ch solution Wheezing or Shortness of Breath. albuterol 2021-0 Yes [id number] 2.5mg Inhale 3 [facility] 2.5 mg /3 6-23 mL every 6 ity of mL (0.083 00:00: ([facility]) [place] %) 00 hours as Medical nebulizer needed for Bran ch solution Wheezing or Shortness of Breath. albuterol 2021-0 Yes [id number] 2.5mg Inhale 3 [facility] 2.5 mg /3 6-23 mL every 6 ity of mL (0.083 00:00: (six) [place] %) 00 hours as Medical nebulizer needed for Bran ch solution Wheezing or Shortness of Breath. albuterol 2021-0 Yes [id number] 2.5mg Inhale 3 [facility] 2.5 mg /3 6-23 mL every 6 ity of mL (0.083 00:00: (six) [place] %) 00 hours as Medical nebulizer needed for Bran ch solution Wheezing or Shortness of Breath. albuterol 2-0 Yes [id number] 2.5mg Inhale 3 [facility] 2.5 mg /3 6-23 mL every 6 ity of mL (0.083 00:00: (six) [place] %) 00 hours as Medical nebulizer needed for Bran ch solution Wheezing or Shortness of Breath. albuterol 2-0 Yes [id number] 2.5mg Inhale 3 [facility] 2.5 mg /3 6-23 mL every 6 ity of mL (0.083 00:00: (six) [place] %) 00 hours as Medical nebulizer needed for Bran ch solution Wheezing or Shortness of Breath. albuterol 2022-0 Yes [id number] 2.5mg Inhale 3 [facility] 2.5 mg /3 6-23 mL every 6 ity of mL (0.083 00:00: (six) [place] %) 00 hours as Medical nebulizer needed for Bran ch solution Wheezing or Shortness of Breath. albuterol 2-0 Yes [id number] 2.5mg Inhale 3 [facility] 2.5 mg /3 6-23 mL every 6 ity of mL (0.083 00:00: (six) [place] %) 00 hours as Medical nebulizer needed for Bran ch solution Wheezing or Shortness of Breath. albuterol 2-0 Yes [id number] 2.5mg Inhale 3 [facility] 2.5 mg /3 6-23 mL every 6 ity of mL (0.083 00:00: ([facility]) [place] %) 00 hours as Medical nebulizer needed for Bran ch solution Wheezing or Shortness of Breath. albuterol 2-0 Yes [id number] 2.5mg Inhale 3 [facility] 2.5 mg /3 6-23 mL every 6 ity of mL (0.083 00:00: ([facility]) [place] %) 00 hours as Medical nebulizer needed for Bran ch solution Wheezing or Shortness of Breath. albuterol 2-0 Yes [id number] 2.5mg Inhale 3 [facility] 2.5 mg /3 6-23 mL every 6 ity of mL (0.083 00:00: ([facility]) [place] %) 00 hours as Medical nebulizer needed for Bran ch solution Wheezing or Shortness of Breath. albuterol 2-0 Yes [id number] 2.5mg Inhale 3 [facility] 2.5 mg /3 6-23 mL every 6 ity of mL (0.083 00:00: (six) [place] %) 00 hours as Medical nebulizer needed for Bran ch solution Wheezing or Shortness of Breath. albuterol 2022-0 Yes [id number] 2.5mg Inhale 3 [facility] 2.5 mg /3 6-23 mL every 6 ity of mL (0.083 00:00: ([facility]) [place] %) 00 hours as Medical nebulizer needed for Bran ch solution Wheezing or Shortness of Breath. albuterol Yes [id number] 2.5mg Inhale 3 [facility] 2.5 mg /3 - mL every 6 ity of mL (0.083 00:00: (six) [place] %) 00 hours as Medical nebulizer needed for Bran ch solution Wheezing or Shortness of Breath. montelukast 2021- No [id number] 10mg Take 1 [facility] 10 mg 08-15 tablet by ity of tablet 00:00: 00:00 mouth [place] 00 :00 daily. Medical Branch finasteride 2021- No [id number] 5mg Take 1 [facility] 5 mg tablet 08-15 9102 tablet by it y of 00:00: 00:00 mouth [place] 00 :00 daily. Medical Branch allopurinoL 2021- No [id number] 100mg Take 1 [facility] 100 mg 08-15 tablet by ity of tablet 00:00: 00:00 mouth [place] 00 :00 daily. Medical Branch metoprolol 2021- No [id number] 50mg Take 1 U nivers tartrate 50 08-15 tablet by it y of mg tablet 00:00: 00:00 mouth 2 [place] 00 :00 (two) Medical times Branch daily. metoprolol 2021- No [id number] 50mg Take 1 U nivers tartrate 50 08-15 tablet by it y of mg tablet 00:00: 00:00 mouth [place] 00 :00 (two) Medical times Branch daily. tamsulosin 2021- No [id number] .4mg Take 1 [facility] 0.4 mg 24 08-15 9102 capsule by ity of hr capsule 00:00: 00:00 mouth [place] 00 :00 daily. Medical Branch hydroCHLORO 2021- No [id number] 25mg Take 1 [facility] thiazide 25 08-15 tablet by it y of mg tablet 00:00: 00:00 mouth [place] 00 :00 daily. Medical Branch enalapril 2021- No [id number] 10mg Take 1 Un jb 10 mg 08-15 tablet by ity of tablet 00:00: 00:00 mouth [place] 00 :00 daily. Medical Branch Blood-Gluco 2022-0 Yes [id number] Use as [facility] se Sensor 5-25 directed ity of (DEXCOM G6 00:00: [place] SENSOR) 00 Medical [place] Branch Blood-Gluco 2022-0 Yes [id number] Use as [facility] se 5-25 directed ity of Transmitter 00:00: [place] (DEXCOM G6 00 Medical TRANSMITTER Branch ) [facility] clotrimazol 2022-0 Yes [id number] Apply to Univers e-betametha 5-25 area(s) 2 ity of sone 1-0.05 00:00: (two) [place] % lotion 00 times Medical daily. Branch Blood-Gluco 2022-0 Yes [id number] Use as [facility] se 5-25 directed ity of Meter,Angie 00:00: [place] nuous 00 Medical (DEXCOM G6 Branch LOAN SPECIALIST) Misc Blood-Gluco 2022-0 Yes [id number] Use as [facility] se Sensor 5-25 directed ity of (DEXCOM G6 00:00: [place] SENSOR) 00 Medical [place] Branch Blood-Gluco 2022-0 Yes [id number] Use as [facility] se 5-25 directed ity of Transmitter 00:00: [place] (DEXCOM G6 00 Medical TRANSMITTER Branch ) [facility] clotrimazol 2022-0 Yes [id number] Apply to [facility] e-betametha 5-25 area(s) 2 ity of sone 1-0.05 00:00: (two) [place] % lotion 00 times Medical daily. Branch Blood-Gluco 2022-0 Yes [id number] Use as [facility] se 5-25 directed ity of Meter,Angie 00:00: [place] nuous 00 Medical (DEXCOM G6 Branch LOAN SPECIALIST) Misc Blood-Gluco 2022-0 Yes [id number] Use as [facility] se Sensor 5-25 directed ity of (DEXCOM G6 00:00: [place] SENSOR) 00 Medical [place] Branch Blood-Gluco 2022-0 Yes [id number] Use as [facility] se 5-25 directed ity of Transmitter 00:00: [place] (DEXCOM G6 00 Medical TRANSMITTER Branch ) [facility] clotrimazol 2022-0 Yes [id number] Apply to Univers e-betametha 5-25 area(s) 2 ity of sone 1-0.05 00:00: (two) [place] % lotion 00 times Medical daily. Branch Blood-Gluco 2022-0 Yes [id number] Use as [facility] se 5-25 directed ity of Meter,Angie 00:00: [place] nuous 00 Medical (DEXCOM G6 Branch LOAN SPECIALIST) Misc Blood-Gluco 2022-0 Yes [id number] Use as [facility] se Sensor 5-25 directed ity of (DEXCOM G6 00:00: [place] SENSOR) 00 Medical [place] Branch Blood-Gluco 2022-0 Yes [id number] Use as [facility] se 5-25 directed ity of Transmitter 00:00: [place] (DEXCOM G6 00 Medical TRANSMITTER Branch ) [facility] clotrimazol 2022-0 Yes [id number] Apply to Univers e-betametha 5-25 area(s) 2 ity of sone 1-0.05 00:00: (two) [place] % lotion 00 times Medical daily. Branch Blood-Gluco 2022-0 Yes [id number] Use as [facility] se 5-25 directed ity of Meter,Angie 00:00: [place] nuous 00 Medical (DEXCOM G6 Branch LOAN SPECIALIST) Misc Blood-Gluco 2022-0 Yes [id number] Use as [facility] se Sensor 5-25 directed ity of (DEXCOM G6 00:00: [place] SENSOR) 00 Medical [place] Branch Blood-Gluco 2022-0 Yes [id number] Use as [facility] se 5-25 directed ity of Transmitter 00:00: [place] (DEXCOM G6 00 Medical TRANSMITTER Branch ) [facility] clotrimazol 2022-0 Yes [id number] Apply to Univers e-betametha 5-25 area(s) 2 ity of sone 1-0.05 00:00: (two) [place] % lotion 00 times Medical daily. Branch Blood-Gluco 2022-0 Yes [id number] Use as Univers se 5-25 directed ity of Meter,Angie 00:00: [place] nuous 00 Medical (DEXCOM G6 Branch LOAN SPECIALIST) Misc Blood-Gluco 2022-0 Yes [id number] Use as [facility] se Sensor 5-25 directed ity of (DEXCOM G6 00:00: [place] SENSOR) 00 Medical [place] Branch Blood-Gluco 2022-0 Yes [id number] Use as [facility] se 5-25 directed ity of Transmitter 00:00: [place] (DEXCOM G6 00 Medical TRANSMITTER Branch ) [facility] clotrimazol 2022-0 Yes [id number] Apply to Univers e-betametha 5-25 area(s) 2 ity of sone 1-0.05 00:00: (two) [place] % lotion 00 times Medical daily. Branch Blood-Gluco 2022-0 Yes [id number] Use as [facility] se 5-25 directed ity of Meter,Angie 00:00: [place] nuous 00 Medical (DEXCOM G6 Branch LOAN SPECIALIST) Misc Blood-Gluco 2022-0 Yes [id number] Use as [facility] se Sensor 5-25 directed ity of (DEXCOM G6 00:00: [place] SENSOR) 00 Medical [place] Branch Blood-Gluco 2022-0 Yes [id number] Use as [facility] se 5-25 directed ity of Transmitter 00:00: [place] (DEXCOM G6 00 Medical TRANSMITTER Branch ) [facility] clotrimazol 2022-0 Yes [id number] Apply to Univers e-betametha 5-25 area(s) 2 ity of sone 1-0.05 00:00: (two) [place] % lotion 00 times Medical daily. Branch Blood-Gluco 2022-0 Yes [id number] Use as [facility] se 5-25 directed ity of Meter,Angie 00:00: [place] nuous 00 Medical (DEXCOM G6 Branch LOAN SPECIALIST) Misc Blood-Gluco 2022-0 Yes [id number] Use as [facility] se Sensor 5-25 directed ity of (DEXCOM G6 00:00: [place] SENSOR) 00 Medical [place] Branch Blood-Gluco 2022-0 Yes [id number] Use as [facility] se 5-25 directed ity of Transmitter 00:00: [place] (DEXCOM G6 00 Medical TRANSMITTER Branch ) [facility] clotrimazol 2022-0 Yes [id number] Apply to Univers e-betametha 5-25 area(s) 2 ity of sone 1-0.05 00:00: (two) [place] % lotion 00 times Medical daily. Branch Blood-Gluco 2022-0 Yes [id number] Use as Univers se 5-25 directed ity of Meter,Angie 00:00: [place] nuous 00 Medical (DEXCOM G6 Branch LOAN SPECIALIST) Misc Blood-Gluco 2022-0 Yes [id number] Use as Univers se Sensor 5-25 directed ity of (DEXCOM G6 00:00: [place] SENSOR) 00 Medical [place] Branch Blood-Gluco 2022-0 Yes [id number] Use as [facility] se 5-25 directed ity of Transmitter 00:00: [place] (DEXCOM G6 00 Medical TRANSMITTER Branch ) [facility] clotrimazol 2022-0 Yes [id number] Apply to Univers e-betametha 5-25 area(s) 2 ity of sone 1-0.05 00:00: (two) [place] % lotion 00 times Medical daily. Branch Blood-Gluco 2022-0 Yes [id number] Use as [facility] se 5-25 directed ity of Meter,Angie 00:00: [place] nuous 00 Medical (DEXCOM G6 Branch LOAN SPECIALIST) Misc Blood-Gluco 2022-0 Yes [id number] Use as Univers se Sensor 5-25 directed ity of (DEXCOM G6 00:00: [place] SENSOR) 00 Medical [place] Branch Blood-Gluco 2022-0 Yes [id number] Use as [facility] se 5-25 directed ity of Transmitter 00:00: [place] (DEXCOM G6 00 Medical TRANSMITTER Branch ) [facility] clotrimazol 2022-0 Yes [id number] Apply to Univers e-betametha 5-25 area(s) 2 ity of sone 1-0.05 00:00: (two) [place] % lotion 00 times Medical daily. Branch Blood-Gluco 2022-0 Yes [id number] Use as [facility] se 5-25 directed ity of Meter,Angie 00:00: [place] nuous 00 Medical (DEXCOM G6 Branch LOAN SPECIALIST) Misc Blood-Gluco 2022-0 Yes [id number] Use as [facility] se Sensor 5-25 directed ity of (DEXCOM G6 00:00: [place] SENSOR) 00 Medical [place] Branch Blood-Gluco 2022-0 Yes [id number] Use as [facility] se 5-25 directed ity of Transmitter 00:00: [place] (DEXCOM G6 00 Medical TRANSMITTER Branch ) [facility] clotrimazol 2022-0 Yes [id number] Apply to Univers e-betametha 5-25 area(s) 2 ity of sone 1-0.05 00:00: (two) [place] % lotion 00 times Medical daily. Branch Blood-Gluco 2022-0 Yes [id number] Use as Univers se 5-25 directed ity of Meter,Angie 00:00: [place] nuous 00 Medical (DEXCOM G6 Branch LOAN SPECIALIST) Misc Blood-Gluco 2022-0 Yes [id number] Use as Univers se Sensor 5-25 directed ity of (DEXCOM G6 00:00: [place] SENSOR) 00 Medical [place] Branch Blood-Gluco 2022-0 Yes [id number] Use as [facility] se 5-25 directed ity of Transmitter 00:00: [place] (DEXCOM G6 00 Medical TRANSMITTER Branch ) [facility] clotrimazol 2022-0 Yes [id number] Apply to Univers e-betametha 5-25 area(s) 2 ity of sone 1-0.05 00:00: (two) [place] % lotion 00 times Medical daily. Branch Blood-Gluco 2022-0 Yes [id number] Use as [facility] se 5-25 directed ity of Meter,Angie 00:00: [place] nuous 00 Medical (DEXCOM G6 Branch LOAN SPECIALIST) Misc Blood-Gluco 2022-0 Yes [id number] Use as Univers se Sensor 5-25 directed ity of (DEXCOM G6 00:00: [place] SENSOR) 00 Medical [place] Branch Blood-Gluco 2022-0 Yes [id number] Use as [facility] se 5-25 directed ity of Transmitter 00:00: [place] (DEXCOM G6 00 Medical TRANSMITTER Branch ) Syl[facility] clotrimazol 2022-0 Yes [id number] Apply to Univers e-betametha 5-25 area(s) 2 ity of sone 1-0.05 00:00: (two) [place] % lotion 00 times Medical daily. Branch Blood-Gluco 2022-0 Yes [id number] Use as Univers se 5-25 directed ity of Meter,Angie 00:00: [place] nuous 00 Medical (DEXCOM G6 Branch LOAN SPECIALIST) Misc Blood-Gluco 2022-0 Yes [id number] Use as Univers se Sensor 5-25 directed ity of (DEXCOM G6 00:00: [place] SENSOR) 00 Medical [facility] Branch Blood-Gluco 2022-0 Yes [id number] Use as [facility] se 5-25 directed ity of Transmitter 00:00: [place] (DEXCOM G6 00 Medical TRANSMITTER Branch ) Syl[facility] clotrimazol 2022-0 Yes [id number] Apply to Univers e-betametha 5-25 area(s) 2 ity of sone 1-0.05 00:00: (two) [place] % lotion 00 times Medical daily. Branch Blood-Gluco 2022-0 Yes [id number] Use as Univers se 5-25 directed ity of Meter,Angie 00:00: [place] nuous 00 Medical (DEXCOM G6 Branch LOAN SPECIALIST) Misc Blood-Gluco 2022-0 Yes [id number] Use as Univers se Sensor 5-25 directed ity of (DEXCOM G6 00:00: [place] SENSOR) 00 Medical [place] Branch Blood-Gluco 2022-0 Yes [id number] Use as Univers se 5-25 directed ity of Transmitter 00:00: [place] (DEXCOM G6 00 Medical TRANSMITTER Branch ) Syl[facility] clotrimazol 2022-0 Yes [id number] Apply to Univers e-betametha 5-25 area(s) 2 ity of sone 1-0.05 00:00: (two) [place] % lotion 00 times Medical daily. Branch Blood-Gluco 2022-0 Yes [id number] Use as Univers se 5-25 directed ity of Meter,Angie 00:00: [place] nuous 00 Medical (DEXCOM G6 Branch LOAN SPECIALIST) Misc Blood-Gluco 2022-0 Yes [id number] Use as Univers se Sensor 5-25 directed ity of (DEXCOM G6 00:00: [place] SENSOR) 00 Medical [facility] Branch Blood-Gluco 2022-0 Yes [id number] Use as [facility] se 5-25 directed ity of Transmitter 00:00: [place] (DEXCOM G6 00 Medical TRANSMITTER Branch ) [facility] clotrimazol 2022-0 Yes [id number] Apply to Univers e-betametha 5-25 area(s) 2 ity of sone 1-0.05 00:00: (two) [place] % lotion 00 times Medical daily. Branch Blood-Gluco 2022-0 Yes [id number] Use as Univers se 5-25 directed ity of Meter,Angie 00:00: [place] nuous 00 Medical (DEXCOM G6 Branch LOAN SPECIALIST) Misc Blood-Gluco 2022-0 Yes [id number] Use as Univers se Sensor 5-25 directed ity of (DEXCOM G6 00:00: [place] SENSOR) 00 Medical [facility] Branch Blood-Gluco 2022-0 Yes [id number] Use as [facility] se 5-25 directed ity of Transmitter 00:00: [place] (DEXCOM G6 00 Medical TRANSMITTER Branch ) [facility] clotrimazol 2022-0 Yes [id number] Apply to Univers e-betametha 5-25 area(s) 2 ity of sone 1-0.05 00:00: (two) [place] % lotion 00 times Medical daily. Branch Blood-Gluco 2022-0 Yes [id number] Use as [facility] se 5-25 directed ity of Meter,Angie 00:00: [place] nuous 00 Medical (DEXCOM G6 Branch LOAN SPECIALIST) Misc Blood-Gluco 2022-0 Yes [id number] Use as Univers se Sensor 5-25 directed ity of (DEXCOM G6 00:00: [place] SENSOR) 00 Medical [facility] Branch Blood-Gluco 2022-0 Yes [id number] Use as [facility] se 5-25 directed ity of Transmitter 00:00: [place] (DEXCOM G6 00 Medical TRANSMITTER Branch ) [facility] clotrimazol 2022-0 Yes [id number] Apply to Univers e-betametha 5-25 area(s) 2 ity of sone 1-0.05 00:00: (two) [place] % lotion 00 times Medical daily. Branch Blood-Gluco 2022-0 Yes [id number] Use as [facility] se 5-25 directed ity of Meter,Angie 00:00: [place] nuous 00 Medical (DEXCOM G6 Branch LOAN SPECIALIST) Misc Blood-Gluco 2022-0 Yes [id number] Use as [facility] se Sensor 5-25 directed ity of (DEXCOM G6 00:00: [place] SENSOR) 00 Medical [facility] Branch Blood-Gluco 2022-0 Yes [id number] Use as [facility] se 5-25 directed ity of Transmitter 00:00: [place] (DEXCOM G6 00 Medical TRANSMITTER Branch ) Syl[facility] clotrimazol 2022-0 Yes [id number] Apply to Univers e-betametha 5-25 area(s) 2 ity of sone 1-0.05 00:00: (two) [place] % lotion 00 times Medical daily. Branch Blood-Gluco 2022-0 Yes [id number] Use as [facility] se 5-25 directed ity of Meter,Angie 00:00: [place] nuous 00 Medical (DEXCOM G6 Branch LOAN SPECIALIST) Misc Blood-Gluco 2022-0 Yes [id number] Use as [facility] se Sensor 5-25 directed ity of (DEXCOM G6 00:00: [place] SENSOR) 00 Medical [facility] Branch Blood-Gluco 2022-0 Yes [id number] Use as [facility] se 5-25 directed ity of Transmitter 00:00: [place] (DEXCOM G6 00 Medical TRANSMITTER Branch ) [facility] clotrimazol 2022-0 Yes [id number] Apply to Univers e-betametha 5-25 area(s) 2 ity of sone 1-0.05 00:00: (two) [place] % lotion 00 times Medical daily. Branch Blood-Gluco 2022-0 Yes [id number] Use as [facility] se 5-25 directed ity of Meter,Angie 00:00: [place] nuous 00 Medical (DEXCOM G6 Branch LOAN SPECIALIST) Misc Blood-Gluco 2022-0 Yes [id number] Use as Univers se Sensor 5-25 directed ity of (DEXCOM G6 00:00: [place] SENSOR) 00 Medical [facility] Branch Blood-Gluco 2022-0 Yes [id number] Use as [facility] se 5-25 directed ity of Transmitter 00:00: [place] (DEXCOM G6 00 Medical TRANSMITTER Branch ) [facility] clotrimazol 2022-0 Yes [id number] Apply to Univers e-betametha 5-25 area(s) 2 ity of sone 1-0.05 00:00: (two) [place] % lotion 00 times Medical daily. Branch Blood-Gluco 2022-0 Yes [id number] Use as [facility] se 5-25 directed ity of Meter,Angie 00:00: [place] nuous 00 Medical (DEXCOM G6 Branch LOAN SPECIALIST) Misc Blood-Gluco 2022-0 Yes [id number] Use as Univers se Sensor 5-25 directed ity of (DEXCOM G6 00:00: [place] SENSOR) 00 Medical [facility] Branch Blood-Gluco 2022-0 Yes [id number] Use as [facility] se 5-25 directed ity of Transmitter 00:00: [place] (DEXCOM G6 00 Medical TRANSMITTER Branch ) [facility] clotrimazol 2022-0 Yes [id number] Apply to Univers e-betametha 5-25 area(s) 2 ity of sone 1-0.05 00:00: (two) [place] % lotion 00 times Medical daily. Branch Blood-Gluco 2022-0 Yes [id number] Use as [facility] se 5-25 directed ity of Meter,Angie 00:00: [place] nuous 00 Medical (DEXCOM G6 Branch LOAN SPECIALIST) Misc Blood-Gluco 2022-0 Yes [id number] Use as Univers se Sensor 5-25 directed ity of (DEXCOM G6 00:00: [place] SENSOR) 00 Medical [facility] Branch Blood-Gluco 2022-0 Yes [id number] Use as [facility] se 5-25 directed ity of Transmitter 00:00: [place] (DEXCOM G6 00 Medical TRANSMITTER Branch ) [facility] clotrimazol 2022-0 Yes [id number] Apply to Univers e-betametha 5-25 area(s) 2 ity of sone 1-0.05 00:00: (two) [place] % lotion 00 times Medical daily. Branch Blood-Gluco 2022-0 Yes [id number] Use as Univers se 5-25 directed ity of Meter,Angie 00:00: [place] nuous 00 Medical (DEXCOM G6 Branch LOAN SPECIALIST) Misc Blood-Gluco 2022-0 Yes [id number] Use as [facility] se Sensor 5-25 directed ity of (DEXCOM G6 00:00: [place] SENSOR) 00 Medical [place] Branch Blood-Gluco 2022-0 Yes [id number] Use as Univers se 5-25 directed ity of Transmitter 00:00: [place] (DEXCOM G6 00 Medical TRANSMITTER Branch ) [place] clotrimazol 2022-0 Yes [id number] Apply to Univers e-betametha 5-25 area(s) 2 ity of sone 1-0.05 00:00: (two) [place] % lotion 00 times Medical daily. Branch Blood-Gluco 2022-0 Yes [id number] Use as Univers se 5-25 directed ity of Meter,Angie 00:00: [place] nuous 00 Medical (DEXCOM G6 Branch LOAN SPECIALIST) Misc Blood-Gluco 2022-0 Yes [id number] Use as Univers se Sensor 5-25 directed ity of (DEXCOM G6 00:00: [place] SENSOR) 00 Medical [place] Branch Blood-Gluco 2022-0 Yes [id number] Use as Univers se 5-25 directed ity of Transmitter 00:00: [place] (DEXCOM G6 00 Medical TRANSMITTER Branch ) [place] clotrimazol 2022-0 Yes [id number] Apply to Univers e-betametha 5-25 area(s) 2 ity of sone 1-0.05 00:00: (two) [place] % lotion 00 times Medical daily. Branch Blood-Gluco 2022-0 Yes [id number] Use as Univers se 5-25 directed ity of Meter,Angie 00:00: [place] nuous 00 Medical (DEXCOM G6 Branch LOAN SPECIALIST) Misc Blood-Gluco 2022-0 Yes [id number] Use as [facility] se Sensor 5-25 directed ity of (DEXCOM G6 00:00: [place] SENSOR) 00 Medical [place] Branch Blood-Gluco 2022-0 Yes [id number] Use as Univers se 5-25 directed ity of Transmitter 00:00: [place] (DEXCOM G6 00 Medical TRANSMITTER Branch ) [place] clotrimazol 2022-0 Yes [id number] Apply to Univers e-betametha 5-25 area(s) 2 ity of sone 1-0.05 00:00: (two) [place] % lotion 00 times Medical daily. Branch Blood-Gluco 2022-0 Yes [id number] Use as Univers se 5-25 directed ity of Meter,Angie 00:00: [place] nuous 00 Medical (DEXCOM G6 Branch LOAN SPECIALIST) Misc Blood-Gluco 2022-0 Yes [id number] Use as [facility] se Sensor 5-25 directed ity of (DEXCOM G6 00:00: [place] SENSOR) 00 Medical [place] Branch Blood-Gluco 2022-0 Yes [id number] Use as Univers se 5-25 directed ity of Transmitter 00:00: [place] (DEXCOM G6 00 Medical TRANSMITTER Branch ) [place] clotrimazol 2022-0 Yes [id number] Apply to Univers e-betametha 5-25 area(s) 2 ity of sone 1-0.05 00:00: (two) [place] % lotion 00 times Medical daily. Branch Blood-Gluco 2022-0 Yes [id number] Use as Univers se 5-25 directed ity of Meter,Angie 00:00: [place] nuous 00 Medical (DEXCOM G6 Branch LOAN SPECIALIST) Misc Blood-Gluco 2022-0 Yes [id number] Use as [facility] se Sensor 5-25 directed ity of (DEXCOM G6 00:00: [place] SENSOR) 00 Medical [place] Branch Blood-Gluco 2022-0 Yes [id number] Use as [facility] se 5-25 directed ity of Transmitter 00:00: [place] (DEXCOM G6 00 Medical TRANSMITTER Branch ) [place] clotrimazol Yes [id number] Apply to Univers e-betametha 5-25 area(s) 2 ity of sone 1-0.05 00:00: (two) [place] % lotion 00 times Medical daily. Branch Blood-Gluco Yes [id number] Use as Univers se 5-25 directed ity of Meter,Angie 00:00: [place] nuous 00 Medical (DEXCOM G6 Branch LOAN SPECIALIST) Misc Insulin Yes [id number] INJECT 50 Univers Glargine 4-25 UNITS ity of (LANTUS 00:00: UNDER THE [place] SOLOSTAR 00 SKIN EVERY Medic al U-100 NIGHT AT Branch INSULIN) BEDTIME. 100 unit/mL (3 mL) injection Insulin Yes [id number] INJECT 50 [facility] Glargine 4-25 UNITS ity of (LANTUS 00:00: UNDER THE [place] SOLOSTAR 00 SKIN EVERY Medic al U-100 NIGHT AT Branch INSULIN) BEDTIME. 100 unit/mL (3 mL) injection Insulin Yes [id number] INJECT 50 [facility] Glargine 4-25 UNITS ity of (LANTUS 00:00: UNDER THE [place] SOLOSTAR 00 SKIN EVERY Medic al U-100 NIGHT AT Branch INSULIN) BEDTIME. 100 unit/mL (3 mL) injection Insulin Yes [id number] INJECT 50 [facility] Glargine 4-25 UNITS ity of (LANTUS 00:00: UNDER THE [place] SOLOSTAR 00 SKIN EVERY Medic al U-100 NIGHT AT Branch INSULIN) BEDTIME. 100 unit/mL (3 mL) injection Insulin 2021- No [id number] INJECT 50 [facility] Glargine 4-25 11-02 UNITS ity of (LANTUS 00:00: 00:00 UNDER THE [facility] SOLOSTAR 00 :00 SKIN EVERY Medic al U-100 NIGHT AT Branch INSULIN) BEDTIME. 100 unit/mL (3 mL) injection esomeprazol Yes [id number] TAKE 1 Univers e 20 mg 3-07 CAPSULE BY ity of capsule 00:00: MOUTH [place] 00 EVERY DAY Medical Branch esomeprazol Yes [id number] TAKE 1 Univers e 20 mg 3-07 CAPSULE BY ity of capsule 00:00: MOUTH [place] 00 EVERY DAY Medical Branch esomeprazol Yes [id number] TAKE 1 Univers e 20 mg 3-07 CAPSULE BY ity of capsule 00:00: MOUTH [place] DAY Medical Branch esomeprazol Yes [id number] TAKE 1 Univers e 20 mg 3-07 CAPSULE BY ity of capsule 00:00: MOUTH [place] DAY Medical Branch esomeprazol Yes [id number] TAKE 1 Univers e 20 mg 3-07 CAPSULE BY ity of capsule 00:00: MOUTH [place] DAY Medical Branch esomeprazol Yes [id number] TAKE 1 Univers e 20 mg 3-07 CAPSULE BY ity of capsule 00:00: MOUTH [place] DAY Medical Branch esomeprazol Yes [id number] TAKE 1 [facility] e 20 mg 3-07 CAPSULE BY ity of capsule 00:00: MOUTH [place] DAY Medical Branch esomeprazol Yes [id number] TAKE 1 [facility] e 20 mg 3-07 CAPSULE BY ity of capsule 00:00: MOUTH [place] 00 DAY Medical Branch esomeprazol Yes [id number] TAKE 1 [facility] e 20 mg 3-07 CAPSULE BY ity of capsule 00:00: MOUTH [place] 00 DAY Medical Branch esomeprazol Yes [id number] TAKE 1 [facility] e 20 mg 3-07 CAPSULE BY ity of capsule 00:00: MOUTH [place] DAY Medical Branch esomeprazol Yes [id number] TAKE 1 Univers e 20 mg 3-07 CAPSULE BY ity of capsule 00:00: MOUTH [place] 00 EVERY DAY Medical Branch esomeprazol Yes [id number] TAKE 1 [facility] e 20 mg 3-07 CAPSULE BY ity of capsule 00:00: MOUTH [place] 00 DAY Medical Branch esomeprazol Yes [id number] TAKE 1 Univers e 20 mg 3-07 CAPSULE BY ity of capsule 00:00: MOUTH [place] EVERY DAY Medical Branch esomeprazol Yes [id number] TAKE 1 [facility] e 20 mg 3-07 CAPSULE BY ity of capsule 00:00: MOUTH [place] 00 EVERY DAY Medical Branch esomeprazol 0 Yes [id number] TAKE 1 Univers e 20 mg 3-07 CAPSULE BY ity of capsule 00:00: MOUTH [place] 00 EVERY DAY Medical Branch esomeprazol 0 Yes [id number] TAKE 1 Univers e 20 mg 3-07 CAPSULE BY ity of capsule 00:00: MOUTH [place] EVERY DAY Medical Branch esomeprazol 0 Yes [id number] TAKE 1 Univers e 20 mg 3-07 CAPSULE BY ity of capsule 00:00: MOUTH 00 EVERY DAY Medical Branch esomeprazol 0 Yes [id number] TAKE 1 [facility] e 20 mg 3-07 CAPSULE BY ity of capsule 00:00: MOUTH [place] EVERY DAY Medical Branch esomeprazol 3- No [id number] TAKE 1 Univers e 20 mg 3-07 -03 CAPSULE BY ity o f capsule 00:00: 00:00 MOUTH [place] 00 :00 EVERY DAY Medical Branch Lancing Yes [id number] Use as Uni vers Device with 9 directed. ity of Lancets 00:00: June [place] (ONE TOUCH 00 substitute Med ical DELICA) Kit brand Branch preferred by insurance Blood-Gluco Yes [id number] Use as Univers se Meter 9 directed. ity of (ONETOUCH 00:00: June [place] VERIO FLEX 00 substitute Med ical START) Kit brand Branch preferred by insurance blood sugar Yes [id number] Test 4x Univers diagnostic 9 daily for ity of (ONETOUCH 00:00: diagnosis [place] VERIO TEST 00 code Medical STRIPS) E11.9. May Branch strip substitute brand preferred by insurance Lancing Yes [id number] Use as Uni vers Device with 929 directed. ity of Lancets 00:00: June [place] (ONE TOUCH 00 substitute Med ical DELICA) Kit brand Branch preferred by insurance Blood-Gluco Yes [id number] Use as Univers se Meter 929 directed. ity of (ONETOUCH 00:00: June [place] VERIO FLEX 00 substitute Med ical START) Kit brand Branch preferred by insurance blood sugar Yes [id number] Test 4x Univers diagnostic 929 daily for ity of (ONETOUCH 00:00: diagnosis [place] VERIO TEST 00 code Medical STRIPS) E11.9. May Branch strip substitute brand preferred by insurance Lancing Yes [id number] Use as Uni vers Device with 9 directed. ity of Lancets 00:00: June [place] (ONE TOUCH 00 substitute Med ical DELICA) Kit brand Branch preferred by insurance Blood-Gluco Yes [id number] Use as Univers se Meter 9 directed. ity of (ONETOUCH 00:00: June [place] VERIO FLEX 00 substitute Med ical START) Kit brand Branch preferred by insurance blood sugar Yes [id number] Test 4x Univers diagnostic 9 daily for ity of (ONETOUCH 00:00: diagnosis [place] VERIO TEST 00 code Medical STRIPS) E11.9. May Branch strip substitute brand preferred by insurance Lancing Yes [id number] Use as Uni vers Device with 9 directed. ity of Lancets 00:00: June [place] (ONE TOUCH 00 substitute Med ical DELICA) Kit brand Branch preferred by insurance Blood-Gluco Yes [id number] Use as Univers se Meter 929 directed. ity of (ONETOUCH 00:00: June [place] VERIO FLEX 00 substitute Med ical START) Kit brand Branch preferred by insurance blood sugar 0 Yes [id number] Test 4x Univers diagnostic 9 daily for ity of (ONETOUCH 00:00: diagnosis [place] VERIO TEST 00 code Medical STRIPS) E11.9. May Branch strip substitute brand preferred by insurance Lancing Yes [id number] Use as Uni vers Device with 9 directed. ity of Lancets 00:00: [place] (ONE TOUCH 00 substitute Med ical DELICA) Kit brand Branch preferred by insurance Blood-Gluco Yes [id number] Use as Univers se Meter 9 directed. ity of (ONETOUCH 00:00: June [place] VERIO FLEX 00 substitute Med ical START) Kit brand Branch preferred by insurance blood sugar 0 Yes [id number] Test 4x Univers diagnostic 9-29 daily for ity of (ONETOUCH 00:00: diagnosis [place] VERIO TEST 00 code Medical STRIPS) E11.9. May Branch strip substitute brand preferred by insurance Lancing Yes [id number] Use as Uni vers Device with 929 directed. ity of Lancets 00:00: June [place] (ONE TOUCH 00 substitute Med ical DELICA) Kit brand Branch preferred by insurance Blood-Gluco Yes [id number] Use as Univers se Meter 929 directed. ity of (ONETOUCH 00:00: June [place] VERIO FLEX 00 substitute Med ical START) Kit brand Branch preferred by insurance blood sugar 0 Yes [id number] Test 4x Univers diagnostic 9 daily for ity of (ONETOUCH 00:00: diagnosis [place] VERIO TEST 00 code Medical STRIPS) E11.9. May Branch strip substitute brand preferred by insurance Lancing Yes [id number] Use as Uni vers Device with 9 directed. ity of Lancets 00:00: June [place] (ONE TOUCH 00 substitute Med ical DELICA) Kit brand Branch preferred by insurance Blood-Gluco Yes [id number] Use as Univers se Meter 9 directed. ity of (ONETOUCH 00:00: June [place] VERIO FLEX 00 substitute Med ical START) Kit brand Branch preferred by insurance blood sugar Yes [id number] Test 4x Univers diagnostic 9 daily for ity of (ONETOUCH 00:00: diagnosis [place] VERIO TEST 00 code Medical STRIPS) E11.9. May Branch strip substitute brand preferred by insurance Lancing Yes [id number] Use as Uni vers Device with 9 directed. ity of Lancets 00:00: June [place] (ONE TOUCH 00 substitute Med ical DELICA) Kit brand Branch preferred by insurance Blood-Gluco Yes [id number] Use as Univers se Meter 929 directed. ity of (ONETOUCH 00:00: June [place] VERIO FLEX 00 substitute Med ical START) Kit brand Branch preferred by insurance blood sugar 0 Yes [id number] Test 4x Univers diagnostic 9 daily for ity of (ONETOUCH 00:00: diagnosis [place] VERIO TEST 00 code Medical STRIPS) E11.9. May Branch strip substitute brand preferred by insurance Lancing 0 Yes [id number] Use as Uni vers Device with 9-29 directed. ity of Lancets 00:00: [place] (ONE TOUCH 00 substitute Med ical DELICA) Kit brand Branch preferred by insurance Blood-Gluco Yes [id number] Use as Univers se Meter 9 directed. ity of (ONETOUCH 00:00: [place] VER[place] FLEX 00 substitute Med ical START) Kit brand Branch preferred by insurance blood sugar 0 Yes [id number] Test 4x Univers diagnostic 9 daily for ity of (ONETOUCH 00:00: diagnosis [place] VERIO TEST 00 code Medical STRIPS) E11.9. May Branch strip substitute brand preferred by insurance Lancing Yes [id number] Use as Uni vers Device with 11-21 directed. ity of Lancets 00:00: June [place] (ONE TOUCH 00 substitute Med ical DELICA) Kit brand Branch preferred by insurance Blood-Gluco Yes [id number] Use as Univers se Meter 9 directed. ity of (ONETOUCH 00:00: June [place] VERIO FLEX 00 substitute Med ical START) Kit brand Branch preferred by insurance blood sugar 0 Yes [id number] Test 4x Univers diagnostic 11-21 daily for ity of (ONETOUCH 00:00: diagnosis [place] VERIO TEST 00 code Medical STRIPS) E11.9. May Branch strip substitute brand preferred by insurance Lancing Yes [id number] Use as Uni vers Device with 11-21 directed. ity of Lancets 00:00: June [place] (ONE TOUCH 00 substitute Med ical DELICA) Kit brand Branch preferred by insurance Blood-Gluco Yes [id number] Use as Univers se Meter 9 directed. ity of (ONETOUCH 00:00: June [place] VERIO FLEX 00 substitute Med ical START) Kit brand Branch preferred by insurance blood sugar 0 Yes [id number] Test 4x Univers diagnostic 9 daily for ity of (ONETOUCH 00:00: diagnosis [place] VERIO TEST 00 code Medical STRIPS) E11.9. May Branch strip substitute brand preferred by insurance Lancing 0 Yes [id number] Use as Uni vers Device with 9 directed. ity of Lancets 00:00: June [place] (ONE TOUCH 00 substitute Med ical DELICA) Kit brand Branch preferred by insurance Blood-Gluco Yes [id number] Use as Univers se Meter 9-29 directed. ity of (ONETOUCH 00:00: June [place] VERIO FLEX 00 substitute Med ical START) Kit brand Branch preferred by insurance blood sugar Yes [id number] Test 4x Univers diagnostic 929 daily for ity of (ONETOUCH 00:00: diagnosis [place] VERIO TEST 00 code Medical STRIPS) E11.9. May Branch strip substitute brand preferred by insurance Lancing Yes [id number] Use as Uni vers Device with 9 directed. ity of Lancets 00:00: [place] (ONE TOUCH 00 substitute Med ical DELICA) Kit brand Branch preferred by insurance Blood-Gluco Yes [id number] Use as Univers se Meter 929 directed. ity of (ONETOUCH 00:00: June [place] VERIO FLEX 00 substitute Med ical START) Kit brand Branch preferred by insurance blood sugar Yes [id number] Test 4x Univers diagnostic 9 daily for ity of (ONETOUCH 00:00: diagnosis [place] VERIO TEST 00 code Medical STRIPS) E11.9. May Branch strip substitute brand preferred by insurance Lancing Yes [id number] Use as Uni vers Device with 9 directed. ity of Lancets 00:00: June (ONE TOUCH 00 substitute Med ical DELICA) Kit brand Branch preferred by insurance Blood-Gluco Yes [id number] Use as Univers se Meter 9-29 directed. ity of (ONETOUCH 00:00: June [place] VERIO FLEX 00 substitute Med ical START) Kit brand Branch preferred by insurance blood sugar 0 Yes [id number] Test 4x Univers diagnostic 929 daily for ity of (ONETOUCH 00:00: diagnosis [place] VERIO TEST 00 code Medical STRIPS) E11.9. May Branch strip substitute brand preferred by insurance Lancing Yes [id number] Use as Uni vers Device with 929 directed. ity of Lancets 00:00: June [place] (ONE TOUCH 00 substitute Med ical DELICA) Kit brand Branch preferred by insurance Blood-Gluco Yes [id number] Use as Univers se Meter 9-29 directed. ity of (ONETOUCH 00:00: June [place] VERIO FLEX 00 substitute Med ical START) Kit brand Branch preferred by insurance blood sugar 0 Yes [id number] Test 4x Univers diagnostic 9-29 daily for ity of (ONETOUCH 00:00: diagnosis [place] VERIO TEST 00 code Medical STRIPS) E11.9. May Branch strip substitute brand preferred by insurance Lancing Yes [id number] Use as Uni vers Device with 929 directed. ity of Lancets 00:00: June [place] (ONE TOUCH 00 substitute Med ical DELICA) Kit brand Branch preferred by insurance Blood-Gluco Yes [id number] Use as Univers se Meter 929 directed. ity of (ONETOUCH 00:00: June [place] VERIO FLEX 00 substitute Med ical START) Kit brand Branch preferred by insurance blood sugar Yes [id number] Test 4x Univers diagnostic 929 daily for ity of (ONETOUCH 00:00: diagnosis [place] VERIO TEST 00 code Medical STRIPS) E11.9. May Branch strip substitute brand preferred by insurance Lancing Yes [id number] Use as Uni vers Device with 929 directed. ity of Lancets 00:00: June [place] (ONE TOUCH 00 substitute Med ical DELICA) Kit brand Branch preferred by insurance Blood-Gluco Yes [id number] Use as Univers se Meter 9-29 directed. ity of (ONETOUCH 00:00: June [place] VERIO FLEX 00 substitute Med ical START) Kit brand Branch preferred by insurance blood sugar 0 Yes [id number] Test 4x Univers diagnostic 929 daily for ity of (ONETOUCH 00:00: diagnosis [place] VERIO TEST 00 code Medical STRIPS) E11.9. May Branch strip substitute brand preferred by insurance Lancing Yes [id number] Use as Uni vers Device with 9-29 directed. ity of Lancets 00:00: June [place] (ONE TOUCH 00 substitute Med ical DELICA) Kit brand Branch preferred by insurance Blood-Gluco 0 Yes [id number] Use as Univers se Meter 9-29 directed. ity of (ONETOUCH 00:00: June [place] VERIO FLEX 00 substitute Med ical START) Kit brand Branch preferred by insurance blood sugar Yes [id number] Test 4x Univers diagnostic 9 daily for ity of (ONETOUCH 00:00: diagnosis [place] VERIO TEST 00 code Medical STRIPS) E11.9. May Branch strip substitute brand preferred by insurance Lancing Yes [id number] Use as Uni vers Device with 11-21 directed. ity of Lancets 00:00: June (ONE TOUCH 00 substitute Med ical DELICA) Kit brand Branch preferred by insurance Blood-Gluco Yes [id number] Use as Univers se Meter 9 directed. ity of (ONETOUCH 00:00: June [place] VERIO FLEX 00 substitute Med ical START) Kit brand Branch preferred by insurance blood sugar Yes [id number] Test 4x Univers diagnostic 9 daily for ity of (ONETOUCH 00:00: diagnosis [place] VERIO TEST 00 code Medical STRIPS) E11.9. May Branch strip substitute brand preferred by insurance Lancing Yes [id number] Use as Uni vers Device with 11-21 directed. ity of Lancets 00:00: June (ONE TOUCH 00 substitute Med ical DELICA) Kit brand Branch preferred by insurance Blood-Gluco Yes [id number] Use as Univers se Meter 9 directed. ity of (ONETOUCH 00:00: June [place] VERIO FLEX 00 substitute Med ical START) Kit brand Branch preferred by insurance blood sugar Yes [id number] Test 4x Univers diagnostic 9 daily for ity of (ONETOUCH 00:00: diagnosis [place] as VERIO TEST 00 code Medical STRIPS) E11.9. May Branch strip substitute brand preferred by insurance Lancing Yes [id number] Use as Uni vers Device with 9 directed. ity of Lancets 00:00: June [place] (ONE TOUCH 00 substitute Med ical DELICA) Kit brand Branch preferred by insurance Blood-Gluco Yes [id number] Use as Univers se Meter 9 directed. ity of (ONETOUCH 00:00: June [place] VERIO FLEX 00 substitute Med ical START) Kit brand Branch preferred by insurance blood sugar Yes [id number] Test 4x Univers diagnostic 9 daily for ity of (ONETOUCH 00:00: diagnosis [place] VERIO TEST 00 code Medical STRIPS) E11.9. May Branch strip substitute brand preferred by insurance Lancing Yes [id number] Use as Uni vers Device with 929 directed. ity of Lancets 00:00: [place] (ONE TOUCH 00 substitute Med ical DELICA) Kit brand Branch preferred by insurance Blood-Gluco Yes [id number] Use as Univers se Meter 929 directed. ity of (ONETOUCH 00:00: June [place] VERIO FLEX 00 substitute Med ical START) Kit brand Branch preferred by insurance blood sugar Yes [id number] Test 4x Univers diagnostic 929 daily for ity of (ONETOUCH 00:00: diagnosis [place] VERIO TEST 00 code Medical STRIPS) E11.9. May Branch strip substitute brand preferred by insurance Lancing Yes [id number] Use as Uni vers Device with 929 directed. ity of Lancets 00:00: [place] (ONE TOUCH 00 substitute Med ical DELICA) Kit brand Branch preferred by insurance Blood-Gluco Yes [id number] Use as Univers se Meter 929 directed. ity of (ONETOUCH 00:00: June [place] VERIO FLEX 00 substitute Med ical START) Kit brand Branch preferred by insurance blood sugar Yes [id number] Test 4x Univers diagnostic 9 daily for ity of (ONETOUCH 00:00: diagnosis [place] VERIO TEST 00 code Medical STRIPS) E11.9. May Branch strip substitute brand preferred by insurance Lancing Yes [id number] Use as Uni vers Device with 9 directed. ity of Lancets 00:00: [place] (ONE TOUCH 00 substitute Med ical DELICA) Kit brand Branch preferred by insurance Blood-Gluco Yes [id number] Use as Univers se Meter 929 directed. ity of (ONETOUCH 00:00: June [place] VERIO FLEX 00 substitute Med ical START) Kit brand Branch preferred by insurance blood sugar 0 Yes [id number] Test 4x Univers diagnostic 929 daily for ity of (ONETOUCH 00:00: diagnosis [place] VERIO TEST 00 code Medical STRIPS) E11.9. May Branch strip substitute brand preferred by insurance Lancing Yes [id number] Use as Uni vers Device with 9-29 directed. ity of Lancets 00:00: [place] (ONE TOUCH 00 substitute Med ical DELICA) Kit brand Branch preferred by insurance Blood-Gluco Yes [id number] Use as Univers se Meter 929 directed. ity of (ONETOUCH 00:00: [place] VERIO FLEX 00 substitute Med ical START) Kit brand Branch preferred by insurance blood sugar 0 Yes [id number] Test 4x Univers diagnostic 9 daily for ity of (ONETOUCH 00:00: diagnosis [place] VERIO TEST 00 code Medical STRIPS) E11.9. May Branch strip substitute brand preferred by insurance Lancing Yes [id number] Use as Uni vers Device with 9 directed. ity of Lancets 00:00: June [place] (ONE TOUCH 00 substitute Med ical DELICA) Kit brand Branch preferred by insurance Blood-Gluco Yes [id number] Use as Univers se Meter 929 directed. ity of (ONETOUCH 00:00: June [place] VERIO FLEX 00 substitute Med ical START) Kit brand Branch preferred by insurance blood sugar Yes [id number] Test 4x Univers diagnostic 9 daily for ity of (ONETOUCH 00:00: diagnosis [place] VERIO TEST 00 code Medical STRIPS) E11.9. May Branch strip substitute brand preferred by insurance Lancing Yes [id number] Use as Uni vers Device with 929 directed. ity of Lancets 00:00: [place] (ONE TOUCH 00 substitute Med ical DELICA) Kit brand Branch preferred by insurance Blood-Gluco Yes [id number] Use as Univers se Meter 9-29 directed. ity of (ONETOUCH 00:00: June [place] VERIO FLEX 00 substitute Med ical START) Kit brand Branch preferred by insurance blood sugar 0 Yes [id number] Test 4x Univers diagnostic 9 daily for ity of (ONETOUCH 00:00: diagnosis [place] VERIO TEST 00 code Medical STRIPS) E11.9. May Branch strip substitute brand preferred by insurance Lancing Yes [id number] Use as Uni vers Device with 929 directed. ity of Lancets 00:00: May [place] (ONE TOUCH 00 substitute Med ical DELICA) Kit brand Branch preferred by insurance Blood-Gluco Yes [id number] Use as Univers se Meter 9- directed. ity of (ONETOUCH 00:00: June [place] VERIO FLEX 00 substitute Med ical START) Kit brand Branch preferred by insurance blood sugar Yes [id number] Test 4x Univers diagnostic 9- daily for ity of (ONETOUCH 00:00: diagnosis [place] VERIO TEST 00 code Medical STRIPS) E11.9. June Branch strip substitute brand preferred by insurance fluticasone Yes [id number] 1{puff} Inhale 1 Univers propion-duc 9-15 Puff every it y of meteroL 00:00: 12 [place] (ADVAIR 00 (twelve) Medical DISKUS) hours. Branch 250-50 mcg/dose inhalation disk albuterol-i Yes [id number] 1{puff} Inhale 1 Univers pratropium 9-15 Puff 4 ity of 20-100 00:00: (four) [place] mcg/actuati 00 times Medical on inhaler daily. Branch aspirin 81 Yes [id number] 81mg Take 1 Univers mg chewable 9-15 tablet by ity of tablet 00:00: mouth [place] 00 daily. Medical Branch nitroglycer Yes [id number] .4mg Place 1 Univers in 9-15 tablet ity of (NITROSTAT) 00:00: under the [place] 0.4 mg 00 tongue Medical sublingual every 5 Branch tablet (five) minutes as needed for Chest pain. atorvastati Yes [id number] 40mg Take 1 Univers n 40 mg 9-15 tablet by ity of tablet 00:00: mouth at [place] 00 bedtime. Medical Branch escitalopra Yes [id number] 10mg Take 1 Univers m oxalate 9-15 tablet by ity o f 10 mg 00:00: mouth [place] tablet 00 daily. Medical Branch fluticasone Yes [id number] 1{puff} Inhale 1 [facility] propion-duc 9-15 Puff every it y of meteroL 00:00: 12 [place] (ADVAIR 00 (twelve) Medical DISKUS) hours. Branch 250-50 mcg/dose inhalation disk albuterol-i Yes [id number] 1{puff} Inhale 1 [facility] pratropium 9-15 Puff 4 ity of 20-100 00:00: (four) [place] mcg/actuati 00 times Medical on inhaler daily. Branch aspirin 81 Yes [id number] 81mg Take 1 [facility] mg chewable 9-15 tablet by ity of tablet 00:00: mouth [place] 00 daily. Medical Branch nitroglycer Yes [id number] .4mg Place 1 Univers in 9-15 tablet ity of (NITROSTAT) 00:00: under the [place] 0.4 mg 00 tongue Medical sublingual every 5 Branch tablet (five) minutes as needed for Chest pain. atorvastati Yes [id number] 40mg Take 1 [facility] n 40 mg 9-15 tablet by ity of tablet 00:00: mouth at [place] 00 bedtime. [facility] escitalopra Yes [id number] 10mg Take 1 [facility] m oxalate 9-15 tablet by ity o f 10 mg 00:00: mouth [place] tablet 00 daily. [facility] fluticasone Yes [id number] 1{puff} Inhale 1 [facility] propion-duc 9-15 Puff every it y of meteroL 00:00: 12 [place] (ADVAIR 00 (twelve) Medical DISKUS) hours. Branch 250-50 mcg/dose inhalation disk albuterol-i Yes [id number] 1{puff} Inhale 1 [facility] pratropium 9-15 Puff 4 ity of 20-100 00:00: (four) [place] mcg/actuati 00 times Medical on inhaler daily. Branch aspirin 81 Yes [id number] 81mg Take 1 [facility] mg chewable 9-15 tablet by ity of tablet 00:00: mouth [place] 00 daily. [facility] nitroglycer Yes [id number] .4mg Place 1 [facility] in 9-15 tablet ity of (NITROSTAT) 00:00: under the [place] 0.4 mg 00 tongue Medical sublingual every 5 Branch tablet (five) minutes as needed for Chest pain. atorvastati Yes [id number] 40mg Take 1 [facility] n 40 mg 9-15 tablet by ity of tablet 00:00: mouth at [place] 00 bedtime. [facility] escitalopra Yes [id number] 10mg Take 1 [facility] m oxalate 9-15 tablet by ity o f 10 mg 00:00: mouth [place] tablet 00 daily. [facility] fluticasone Yes [id number] 1{puff} Inhale 1 [facility] propion-duc 9-15 Puff every it y of meteroL 00:00: 12 [place] (ADVAIR 00 (twelve) Medical DISKUS) hours. Branch 250-50 mcg/dose inhalation disk albuterol-i Yes [id number] 1{puff} Inhale 1 [facility] pratropium 9-15 Puff 4 ity of 20-100 00:00: (four) [place] mcg/actuati 00 times Medical on inhaler daily. Branch aspirin 81 Yes [id number] 81mg Take 1 [facility] mg chewable 9-15 tablet by ity of tablet 00:00: mouth [place] 00 daily. [facility] nitroglycer Yes [id number] .4mg Place 1 [facility] in 9-15 tablet ity of (NITROSTAT) 00:00: under the [place] 0.4 mg 00 tongue Medical sublingual every 5 Branch tablet (five) minutes as needed for Chest pain. atorvastati Yes [id number] 40mg Take 1 [facility] n 40 mg 9-15 tablet by ity of tablet 00:00: mouth at [place] 00 bedtime. [facility] escitalopra Yes [id number] 10mg Take 1 [facility] m oxalate 9-15 tablet by ity o f 10 mg 00:00: mouth [place] tablet 00 daily. [facility] fluticasone Yes [id number] 1{puff} Inhale 1 [facility] propion-duc 9-15 Puff every it y of meteroL 00:00: 12 [place] (ADVAIR 00 (twelve) Medical DISKUS) hours. Branch 250-50 mcg/dose inhalation disk albuterol-i Yes [id number] 1{puff} Inhale 1 [facility] pratropium 9-15 Puff 4 ity of 20-100 00:00: (four) [place] mcg/actuati 00 times Medical on inhaler daily. Branch aspirin 81 Yes [id number] 81mg Take 1 [facility] mg chewable 9-15 tablet by ity of tablet 00:00: mouth [place] 00 daily. [facility] nitroglycer Yes [id number] .4mg Place 1 [facility] in 9-15 tablet ity of (NITROSTAT) 00:00: under the [place] 0.4 mg 00 tongue Medical sublingual every 5 Branch tablet (five) minutes as needed for Chest pain. atorvastati Yes [id number] 40mg Take 1 [facility] n 40 mg 9-15 tablet by ity of tablet 00:00: mouth at [place] 00 bedtime. [facility] escitalopra Yes [id number] 10mg Take 1 [facility] m oxalate 9-15 tablet by ity o f 10 mg 00:00: mouth [place] tablet 00 daily. [facility] fluticasone Yes [id number] 1{puff} Inhale 1 [facility] propion-duc 9-15 Puff every it y of meteroL 00:00: 12 [place] (ADVAIR 00 (twelve) Medical DISKUS) hours. Branch 250-50 mcg/dose inhalation disk albuterol-i Yes [id number] 1{puff} Inhale 1 [facility] pratropium 9-15 Puff 4 ity of 20-100 00:00: (four) [place] mcg/actuati 00 times Medical on inhaler daily. Branch aspirin 81 Yes [id number] 81mg Take 1 [facility] mg chewable 9-15 tablet by ity of tablet 00:00: mouth [place] 00 daily. [facility] nitroglycer Yes [id number] .4mg Place 1 [facility] in 9-15 tablet ity of (NITROSTAT) 00:00: under the [place] 0.4 mg 00 tongue Medical sublingual every 5 Branch tablet (five) minutes as needed for Chest pain. atorvastati Yes [id number] 40mg Take 1 [facility] n 40 mg 9-15 tablet by ity of tablet 00:00: mouth at [place] 00 bedtime. [facility] escitalopra Yes [id number] 10mg Take 1 [facility] m oxalate 9-15 tablet by ity o f 10 mg 00:00: mouth [place] tablet 00 daily. [facility] fluticasone Yes [id number] 1{puff} Inhale 1 [facility] propion-duc 9-15 Puff every it y of meteroL 00:00: 12 [place] (ADVAIR 00 (twelve) Medical DISKUS) hours. Branch 250-50 mcg/dose inhalation disk albuterol-i Yes [id number] 1{puff} Inhale 1 [facility] pratropium 9-15 Puff 4 ity of 20-100 00:00: (four) [place] mcg/actuati 00 times Medical on inhaler daily. Branch aspirin 81 0 Yes [id number] 81mg Take 1 [facility] mg chewable 9-15 tablet by ity of tablet 00:00: mouth [place] 00 daily. [facility] nitroglycer Yes [id number] .4mg Place 1 [facility] in 9-15 tablet ity of (NITROSTAT) 00:00: under the [place] 0.4 mg 00 tongue Medical sublingual every 5 Branch tablet (five) minutes as needed for Chest pain. atorvastati Yes [id number] 40mg Take 1 [facility] n 40 mg 9-15 tablet by ity of tablet 00:00: mouth at [place] 00 bedtime. [facility] fluticasone Yes [id number] 1{puff} Inhale 1 [facility] propion-duc 9-15 Puff every it y of meteroL 00:00: 12 [place] (ADVAIR 00 (twelve) Medical DISKUS) hours. Branch 250-50 mcg/dose inhalation disk albuterol-i Yes [id number] 1{puff} Inhale 1 [facility] pratropium 9-15 Puff 4 ity of 20-100 00:00: (four) [place] mcg/actuati 00 times Medical on inhaler daily. Branch aspirin 81 0 Yes [id number] 81mg Take 1 [facility] mg chewable 9-15 tablet by ity of tablet 00:00: mouth [place] 00 daily. [facility] nitroglycer [id number] 1 [facility] in 9-15 tablet ity of (NITROSTAT) 00:00: under the [place] 0.4 mg 00 tongue Medical sublingual every 5 Branch tablet (five) minutes as needed for Chest pain. atorvastati 0 Yes [id number] 40mg Take 1 [facility] n 40 mg 9-15 tablet by ity of tablet 00:00: mouth at [place] 00 bedtime. [facility] fluticasone Yes [id number] 1{puff} Inhale 1 [facility] propion-duc 9-15 Puff every it y of meteroL 00:00: 12 [place] (ADVAIR 00 (twelve) Medical DISKUS) hours. Branch 250-50 mcg/dose inhalation disk albuterol-i Yes [id number] 1{puff} Inhale 1 [facility] pratropium 9-15 Puff 4 ity of 20-100 00:00: (four) [place] mcg/actuati 00 times Medical on inhaler daily. Branch aspirin 81 0 Yes [id number] 81mg Take 1 [facility] mg chewable 9-15 tablet by ity of tablet 00:00: mouth [place] 00 daily. [facility] nitroglycer Yes [id number] .4mg Place 1 [facility] in 9-15 tablet ity of (NITROSTAT) 00:00: under the [place] 0.4 mg 00 tongue Medical sublingual every 5 Branch tablet (five) minutes as needed for Chest pain. atorvastati Yes [id number] 40mg Take 1 [facility] n 40 mg 9-15 tablet by ity of tablet 00:00: mouth at [place] 00 bedtime. [facility] fluticasone Yes [id number] 1{puff} Inhale 1 [facility] propion-duc 9-15 Puff every it y of meteroL 00:00: 12 [place] (ADVAIR 00 (twelve) Medical DISKUS) hours. Branch 250-50 mcg/dose inhalation disk albuterol-i Yes [id number] 1{puff} Inhale 1 [facility] pratropium 9-15 Puff 4 ity of 20-100 00:00: (four) [place] mcg/actuati 00 times Medical on inhaler daily. Branch aspirin 81 0 Yes [id number] 81mg Take 1 [facility] mg chewable 9-15 tablet by ity of tablet 00:00: mouth [place] 00 daily. [facility] nitroglycer Yes [id number] .4mg Place 1 [facility] in 9-15 tablet ity of (NITROSTAT) 00:00: under the [place] 0.4 mg 00 tongue Medical sublingual every 5 Branch tablet (five) minutes as needed for Chest pain. atorvastati Yes [id number] 40mg Take 1 [facility] n 40 mg 9-15 tablet by ity of tablet 00:00: mouth at [place] 00 bedtime. [facility] fluticasone Yes [id number] 1{puff} Inhale 1 [facility] propion-duc 9-15 Puff every it y of meteroL 00:00: 12 [place] (ADVAIR 00 (twelve) Medical DISKUS) hours. Branch 250-50 mcg/dose inhalation disk albuterol-i Yes [id number] 1{puff} Inhale 1 [facility] pratropium 9-15 Puff 4 ity of 20-100 00:00: (four) [place] mcg/actuati 00 times Medical on inhaler daily. Branch aspirin 81 Yes [id number] 81mg Take 1 [facility] mg chewable 9-15 tablet by ity of tablet 00:00: mouth [place] 00 daily. [facility] nitroglycer Yes [id number] .4mg Place 1 [facility] in 9-15 tablet ity of (NITROSTAT) 00:00: under the [place] 0.4 mg 00 tongue Medical sublingual every 5 Branch tablet (five) minutes as needed for Chest pain. atorvastati Yes [id number] 40mg Take 1 [facility] n 40 mg 9-15 tablet by ity of tablet 00:00: mouth at [place] 00 bedtime. [facility] fluticasone Yes [id number] 1{puff} Inhale 1 [facility] propion-duc 9-15 Puff every it y of meteroL 00:00: 12 [place] (ADVAIR 00 (twelve) Medical DISKUS) hours. Branch 250-50 mcg/dose inhalation disk albuterol-i Yes [id number] 1{puff} Inhale 1 [facility] pratropium 9-15 Puff 4 ity of 20-100 00:00: (four) [place] mcg/actuati 00 times Medical on inhaler daily. Branch aspirin 81 0 Yes [id number] 81mg Take 1 [facility] mg chewable 9-15 tablet by ity of tablet 00:00: mouth [place] 00 daily. [facility] nitroglycer Yes [id number] .4mg Place 1 [facility] in 9-15 tablet ity of (NITROSTAT) 00:00: under the [place] 0.4 mg 00 tongue Medical sublingual every 5 Branch tablet (five) minutes as needed for Chest pain. atorvastati Yes [id number] 40mg Take 1 [facility] n 40 mg 9-15 tablet by ity of tablet 00:00: mouth at [place] 00 bedtime. [facility] fluticasone Yes [id number] 1{puff} Inhale 1 [facility] propion-duc 9-15 Puff every it y of meteroL 00:00: 12 [place] (ADVAIR 00 (twelve) Medical DISKUS) hours. Branch 250-50 mcg/dose inhalation disk albuterol-i Yes [id number] 1{puff} Inhale 1 [facility] pratropium 9-15 Puff 4 ity of 20-100 00:00: (four) [place] mcg/actuati 00 times Medical on inhaler daily. Branch aspirin 81 Yes [id number] 81mg Take 1 [facility] mg chewable 9-15 tablet by ity of tablet 00:00: mouth [place] 00 daily. [facility] nitroglycer Yes [id number] .4mg Place 1 [facility] in 9-15 tablet ity of (NITROSTAT) 00:00: under the [place] 0.4 mg 00 tongue Medical sublingual every 5 Branch tablet (five) minutes as needed for Chest pain. atorvastati Yes [id number] 40mg Take 1 [facility] n 40 mg 9-15 tablet by ity of tablet 00:00: mouth at [place] 00 bedtime. [facility] fluticasone Yes [id number] 1{puff} Inhale 1 [facility] propion-duc 9-15 Puff every it y of meteroL 00:00: 12 [place] (ADVAIR 00 (twelve) Medical DISKUS) hours. Branch 250-50 mcg/dose inhalation disk albuterol-i Yes [id number] 1{puff} Inhale 1 [facility] pratropium 9-15 Puff 4 ity of 20-100 00:00: (four) [place] mcg/actuati 00 times Medical on inhaler daily. Branch aspirin 81 0 Yes [id number] 81mg Take 1 [facility] mg chewable 9-15 tablet by ity of tablet 00:00: mouth [place] 00 daily. [facility] nitroglycer 2020-[id number] 1 [facility] in 9-15 tablet ity of (NITROSTAT) 00:00: under the [place] 0.4 mg 00 tongue Medical sublingual every 5 Branch tablet (five) minutes as needed for Chest pain. atorvastati 0 Yes [id number] 40mg Take 1 [facility] n 40 mg 9-15 tablet by ity of tablet 00:00: mouth at [place] 00 bedtime. [facility] fluticasone 2020-0 Yes [id number] 1{puff} Inhale 1 [facility] propion-duc 9-15 Puff every it y of meteroL 00:00: 12 [place] (ADVAIR 00 (twelve) Medical DISKUS) hours. Branch 250-50 mcg/dose inhalation disk albuterol-i 0 Yes [id number] 1{puff} Inhale 1 [facility] pratropium 9-15 Puff 4 ity of 20-100 00:00: (four) [place] mcg/actuati 00 times Medical on inhaler daily. Branch aspirin 81 2020-0 Yes [id number] 81mg Take 1 [facility] mg chewable 9-15 tablet by ity of tablet 00:00: mouth [place] 00 daily. [facility] nitroglycer [id number] 1 [facility] in 9-15 tablet ity of (NITROSTAT) 00:00: under the [place] 0.4 mg 00 tongue Medical sublingual every 5 Branch tablet (five) minutes as needed for Chest pain. atorvastati 0 Yes [id number] 40mg Take 1 [facility] n 40 mg 9-15 tablet by ity of tablet 00:00: mouth at [place] 00 bedtime. [facility] fluticasone 2020-0 Yes [id number] 1{puff} Inhale 1 [facility] propion-duc 9-15 Puff every it y of meteroL 00:00: 12 [place] (ADVAIR 00 (twelve) Medical DISKUS) hours. Branch 250-50 mcg/dose inhalation disk albuterol-i 2020-0 Yes [id number] 1{puff} Inhale 1 [facility] pratropium 9-15 Puff 4 ity of 20-100 00:00: (four) [place] mcg/actuati 00 times Medical on inhaler daily. Branch aspirin 81 0 Yes [id number] 81mg Take 1 [facility] mg chewable 9-15 tablet by ity of tablet 00:00: mouth [place] 00 daily. [facility] nitroglycer Yes [id number] .4mg Place 1 [facility] in 9-15 tablet ity of (NITROSTAT) 00:00: under the [place] 0.4 mg 00 tongue Medical sublingual every 5 Branch tablet (five) minutes as needed for Chest pain. atorvastati Yes [id number] 40mg Take 1 [facility] n 40 mg 9-15 tablet by ity of tablet 00:00: mouth at [place] 00 bedtime. [facility] fluticasone Yes [id number] 1{puff} Inhale 1 [facility] propion-duc 9-15 Puff every it y of meteroL 00:00: 12 [place] (ADVAIR 00 (twelve) Medical DISKUS) hours. Branch 250-50 mcg/dose inhalation disk albuterol-i Yes [id number] 1{puff} Inhale 1 [facility] pratropium 9-15 Puff 4 ity of 20-100 00:00: (four) [place] mcg/actuati 00 times Medical on inhaler daily. Branch aspirin 81 Yes [id number] 81mg Take 1 [facility] mg chewable 9-15 tablet by ity of tablet 00:00: mouth [place] 00 daily. [facility] nitroglycer Yes [id number] .4mg Place 1 [facility] in 9-15 tablet ity of (NITROSTAT) 00:00: under the [place] 0.4 mg 00 tongue Medical sublingual every 5 Branch tablet (five) minutes as needed for Chest pain. atorvastati Yes [id number] 40mg Take 1 [facility] n 40 mg 9-15 tablet by ity of tablet 00:00: mouth at [place] 00 bedtime. [facility] fluticasone Yes [id number] 1{puff} Inhale 1 [facility] propion-duc 9-15 Puff every it y of meteroL 00:00: 12 [place] (ADVAIR 00 (twelve) Medical DISKUS) hours. Branch 250-50 mcg/dose inhalation disk albuterol-i Yes [id number] 1{puff} Inhale 1 [facility] pratropium 9-15 Puff 4 ity of 20-100 00:00: (four) [place] mcg/actuati 00 times Medical on inhaler daily. Branch aspirin 81 0 Yes [id number] 81mg Take 1 [facility] mg chewable 9-15 tablet by ity of tablet 00:00: mouth [place] 00 daily. [facility] nitroglycer [id number] 1 [facility] in 9-15 tablet ity of (NITROSTAT) 00:00: under the [place] 0.4 mg 00 tongue Medical sublingual every 5 Branch tablet (five) minutes as needed for Chest pain. atorvastati Yes [id number] 40mg Take 1 [facility] n 40 mg 9-15 tablet by ity of tablet 00:00: mouth at [place] 00 bedtime. [facility] fluticasone 0 Yes [id number] 1{puff} Inhale 1 [facility] propion-duc 9-15 Puff every it y of meteroL 00:00: 12 [place] (ADVAIR 00 (twelve) Medical DISKUS) hours. Branch 250-50 mcg/dose inhalation disk albuterol-i Yes [id number] 1{puff} Inhale 1 [facility] pratropium 9-15 Puff 4 ity of 20-100 00:00: (four) [place] mcg/actuati 00 times Medical on inhaler daily. Branch aspirin 81 0 Yes [id number] 81mg Take 1 [facility] mg chewable 9-15 tablet by ity of tablet 00:00: mouth [place] 00 daily. [facility] nitroglycer Yes [id number] .4mg Place 1 [facility] in 9-15 tablet ity of (NITROSTAT) 00:00: under the [place] 0.4 mg 00 tongue Medical sublingual every 5 Branch tablet (five) minutes as needed for Chest pain. atorvastati 0 Yes [id number] 40mg Take 1 [facility] n 40 mg 9-15 tablet by ity of tablet 00:00: mouth at [place] 00 bedtime. [facility] fluticasone 0 Yes [id number] 1{puff} Inhale 1 [facility] propion-duc 9-15 Puff every it y of meteroL 00:00: 12 [place] (ADVAIR 00 (twelve) Medical DISKUS) hours. Branch 250-50 mcg/dose inhalation disk albuterol-i Yes [id number] 1{puff} Inhale 1 [facility] pratropium 9-15 Puff 4 ity of 20-100 00:00: (four) [place] mcg/actuati 00 times Medical on inhaler daily. Branch aspirin 81 Yes [id number] 81mg Take 1 [facility] mg chewable 9-15 tablet by ity of tablet 00:00: mouth [place] 00 daily. [facility] nitroglycer Yes [id number] .4mg Place 1 [facility] in 9-15 tablet ity of (NITROSTAT) 00:00: under the [place] 0.4 mg 00 tongue Medical sublingual every 5 Branch tablet (five) minutes as needed for Chest pain. atorvastati Yes [id number] 40mg Take 1 [facility] n 40 mg 9-15 tablet by ity of tablet 00:00: mouth at [place] 00 bedtime. [facility] fluticasone Yes [id number] 1{puff} Inhale 1 [facility] propion-duc 9-15 Puff every it y of meteroL 00:00: 12 [place] (ADVAIR 00 (twelve) Medical DISKUS) hours. Branch 250-50 mcg/dose inhalation disk albuterol-i Yes [id number] 1{puff} Inhale 1 [facility] pratropium 9-15 Puff 4 ity of 20-100 00:00: (four) [place] mcg/actuati 00 times Medical on inhaler daily. Branch aspirin 81 Yes [id number] 81mg Take 1 [facility] mg chewable 9-15 tablet by ity of tablet 00:00: mouth [place] 00 daily. [facility] nitroglycer Yes [id number] .4mg Place 1 [facility] in 9-15 tablet ity of (NITROSTAT) 00:00: under the [place] 0.4 mg 00 tongue Medical sublingual every 5 Branch tablet (five) minutes as needed for Chest pain. atorvastati Yes [id number] 40mg Take 1 [facility] n 40 mg 9-15 tablet by ity of tablet 00:00: mouth at [place] 00 bedtime. [facility] fluticasone Yes [id number] 1{puff} Inhale 1 [facility] propion-duc 9-15 Puff every it y of meteroL 00:00: 12 [place] (ADVAIR 00 (twelve) Medical DISKUS) hours. Branch 250-50 mcg/dose inhalation disk albuterol-i Yes [id number] 1{puff} Inhale 1 [facility] pratropium 9-15 Puff 4 ity of 20-100 00:00: (four) [place] mcg/actuati 00 times Medical on inhaler daily. Branch aspirin 81 Yes [id number] 81mg Take 1 [facility] mg chewable 9-15 tablet by ity of tablet 00:00: mouth [place] 00 daily. [facility] nitroglycer Yes [id number] .4mg Place 1 [facility] in 9-15 tablet ity of (NITROSTAT) 00:00: under the [place] 0.4 mg 00 tongue Medical sublingual every 5 Branch tablet (five) minutes as needed for Chest pain. atorvastati Yes [id number] 40mg Take 1 [facility] n 40 mg 9-15 tablet by ity of tablet 00:00: mouth at [place] 00 bedtime. [facility] fluticasone Yes [id number] 1{puff} Inhale 1 [facility] propion-duc 9-15 Puff every it y of meteroL 00:00: 12 [place] (ADVAIR 00 (twelve) Medical DISKUS) hours. Branch 250-50 mcg/dose inhalation disk albuterol-i Yes [id number] 1{puff} Inhale 1 [facility] pratropium 9-15 Puff 4 ity of 20-100 00:00: (four) [place] mcg/actuati 00 times Medical on inhaler daily. Branch aspirin 81 0 Yes [id number] 81mg Take 1 [facility] mg chewable 9-15 tablet by ity of tablet 00:00: mouth [place] 00 daily. Medical [facility] nitroglycer Yes [id number] .4mg Place 1 [facility] in 9-15 tablet ity of (NITROSTAT) 00:00: under the [place] 0.4 mg 00 tongue Medical sublingual every 5 Branch tablet (five) minutes as needed for Chest pain. atorvastati Yes [id number] 40mg Take 1 [facility] n 40 mg 9-15 tablet by ity of tablet 00:00: mouth at [place] 00 bedtime. [facility] fluticasone Yes [id number] 1{puff} Inhale 1 [facility] propion-duc 9-15 Puff every it y of meteroL 00:00: 12 [place] (ADVAIR 00 (twelve) Medical DISKUS) hours. Branch 250-50 mcg/dose inhalation disk albuterol-i Yes [id number] 1{puff} Inhale 1 [facility] pratropium 9-15 Puff 4 ity of 20-100 00:00: (four) [place] mcg/actuati 00 times Medical on inhaler daily. Branch aspirin 81 0 Yes [id number] 81mg Take 1 [facility] n[facility] mg chewable 9-15 tablet by ity of tablet 00:00: mouth [place] 00 daily. [facility] nitroglycer Yes [id number] .4mg Place 1 [facility] in 9-15 tablet ity of (NITROSTAT) 00:00: under the [place] 0.4 mg 00 tongue Medical sublingual every 5 Branch tablet (five) minutes as needed for Chest pain. atorvastati Yes [id number] 40mg Take 1 [facility] n 40 mg 9-15 tablet by ity of tablet 00:00: mouth at [place] 00 bedtime. [facility] fluticasone Yes [id number] 1{puff} Inhale 1 [facility] propion-duc 9-15 Puff every it y of meteroL 00:00: 12 [place] (ADVAIR 00 (twelve) Medical DISKUS) hours. Branch 250-50 mcg/dose inhalation disk albuterol-i Yes [id number] 1{puff} Inhale 1 [facility] pratropium 9-15 Puff 4 ity of 20-100 00:00: (four) [place] mcg/actuati 00 times Medical on inhaler daily. Branch aspirin 81 0 Yes [id number] 81mg Take 1 [facility] n[facility] mg chewable 9-15 tablet by ity of tablet 00:00: mouth [place] 00 daily. Medical [facility] nitroglycer Yes [id number] .4mg Place 1 [facility] in 9-15 tablet ity of (NITROSTAT) 00:00: under the [place] 0.4 mg 00 tongue Medical sublingual every 5 Branch tablet (five) minutes as needed for Chest pain. atorvastati Yes [id number] 40mg Take 1 [facility] n 40 mg 9-15 tablet by ity of tablet 00:00: mouth at [place] 00 bedtime. [facility] fluticasone Yes [id number] 1{puff} Inhale 1 [facility] propion-duc 9-15 Puff every it y of meteroL 00:00: 12 [place] (ADVAIR 00 (twelve) Medical DISKUS) hours. Branch 250-50 mcg/dose inhalation disk albuterol-i Yes [id number] 1{puff} Inhale 1 [facility] pratropium 9-15 Puff 4 ity of 20-100 00:00: (four) [place] mcg/actuati 00 times Medical on inhaler daily. Branch aspirin 81 Yes [id number] 81mg Take 1 [facility] n[facility] mg chewable 9-15 tablet by ity of tablet 00:00: mouth [place] 00 daily. Medical [facility] nitroglycer Yes [id number] .4mg Place 1 [facility] in 9-15 tablet ity of (NITROSTAT) 00:00: under the [place] 0.4 mg 00 tongue Medical sublingual every 5 Branch tablet (five) minutes as needed for Chest pain. atorvastati Yes [id number] 40mg Take 1 [facility] n 40 mg 9-15 tablet by ity of tablet 00:00: mouth at [place] 00 bedtime. [facility] fluticasone Yes [id number] 1{puff} Inhale 1 [facility] propion-duc 9-15 Puff every it y of meteroL 00:00: 12 [place] (ADVAIR 00 (twelve) Medical DISKUS) hours. Branch 250-50 mcg/dose inhalation disk albuterol-i Yes [id number] 1{puff} Inhale 1 [facility] pratropium 9-15 Puff 4 ity of 20-100 00:00: (four) [place] mcg/actuati 00 times Medical on inhaler daily. Branch aspirin 81 0 Yes [id number] 81mg Take 1 [facility] mg chewable 9-15 tablet by ity of tablet 00:00: mouth [place] 00 daily. [facility] nitroglycer Yes [id number] .4mg Place 1 [facility] in 9-15 tablet ity of (NITROSTAT) 00:00: under the [place] 0.4 mg 00 tongue Medical sublingual every 5 Branch tablet (five) minutes as needed for Chest pain. atorvastati Yes [id number] 40mg Take 1 [facility] n 40 mg 9-15 tablet by ity of tablet 00:00: mouth at [place] 00 bedtime. [facility] fluticasone Yes [id number] 1{puff} Inhale 1 [facility] propion-duc 9-15 Puff every it y of meteroL 00:00: 12 [place] (ADVAIR 00 (twelve) Medical DISKUS) hours. Branch 250-50 mcg/dose inhalation disk albuterol-i Yes [id number] 1{puff} Inhale 1 [facility] pratropium 9-15 Puff 4 ity of 20-100 00:00: (four) [place] mcg/actuati 00 times Medical on inhaler daily. Branch aspirin 81 Yes [id number] 81mg Take 1 [facility] n[facility] mg chewable 9-15 tablet by ity of tablet 00:00: mouth [place] 00 daily. Medical [facility] nitroglycer Yes [id number] .4mg Place 1 [facility] in 9-15 tablet ity of (NITROSTAT) 00:00: under the [place] 0.4 mg 00 tongue Medical sublingual every 5 Branch tablet (five) minutes as needed for Chest pain. atorvastati Yes [id number] 40mg Take 1 [facility] n 40 mg 9-15 tablet by ity of tablet 00:00: mouth at [place] 00 bedtime. [facility] escitalopra 2021- No [id number] 10mg Take 1 [facility] m oxalate 9-15 11-18 tablet by ity of 10 mg 00:00: 00:00 mouth [place] tablet 00 :00 daily. Medical Branch BD MATIAS Yes [id number] INJECT [facility] GEN PEN 3-21 UNDER THE ity of NEEDLE 32 00:00: SKIN THREE [place] gauge x 00 TIMES Medical 5/32" Ndle DAILY Branch BD MATIAS Yes [id number] INJECT [facility] GEN PEN 3-21 UNDER THE ity of NEEDLE 32 00:00: SKIN THREE [place] gauge x 00 TIMES Medical 5/32" Ndle DAILY Branch BD MATIAS Yes [id number] INJECT [facility] GEN PEN 3-21 UNDER THE ity of NEEDLE 32 00:00: SKIN THREE [place] gauge x 00 TIMES Medical " Ndle DAILY Branch BD MATIAS Yes [id number] INJECT [facility] GEN PEN 3-21 UNDER THE ity of NEEDLE 32 00:00: SKIN THREE [place] gauge x 00 TIMES Medical " Ndle DAILY Branch BD MATIAS Yes [id number] INJECT [facility] GEN PEN 3-21 UNDER THE ity of NEEDLE 32 00:00: SKIN THREE [place] gauge x 00 TIMES Medical " Ndle DAILY Branch BD MATIAS Yes [id number] INJECT [facility] GEN PEN 3-21 UNDER THE ity of NEEDLE 32 00:00: SKIN THREE [place] gauge x 00 TIMES Medical " Ndle DAILY Branch BD MATIAS Yes [id number] INJECT [facility] GEN PEN 3-21 UNDER THE ity of NEEDLE 32 00:00: SKIN THREE [place] gauge x 00 TIMES Medical " Ndle DAILY Branch BD MATIAS Yes [id number] INJECT [facility] GEN PEN 3-21 UNDER THE ity of NEEDLE 32 00:00: SKIN THREE [place] gauge x 00 TIMES Medical " Ndle DAILY Branch BD MATIAS Yes [id number] INJECT [facility] GEN PEN 3-21 UNDER THE ity of NEEDLE 32 00:00: SKIN THREE [place] gauge x 00 TIMES Medical " Ndle DAILY Branch BD MATIAS Yes [id number] INJECT [facility] GEN PEN 3-21 UNDER THE ity of NEEDLE 32 00:00: SKIN THREE [place] gauge x 00 TIMES Medical " Ndle DAILY Branch BD MATIAS Yes [id number] INJECT [facility] GEN PEN 3-21 UNDER THE ity of NEEDLE 32 00:00: SKIN THREE [place] gauge x 00 TIMES Medical " Ndle DAILY Branch BD MATIAS Yes [id number] INJECT [facility] GEN PEN 3-21 UNDER THE ity of NEEDLE 32 00:00: SKIN THREE [place] gauge x 00 TIMES Medical " Ndle DAILY Branch BD MATIAS Yes [id number] INJECT [facility] GEN PEN 3-21 UNDER THE ity of NEEDLE 32 00:00: SKIN THREE [place] gauge x 00 TIMES Medical 5/32" Ndle DAILY Branch BD MATIAS 2ND Yes [id number] INJECT [facility] GEN PEN 3-21 UNDER THE ity of NEEDLE 32 00:00: SKIN THREE [place] gauge x 00 TIMES Medical 5/32" Ndle DAILY Branch BD MATIAS 2ND 2020- Yes [id number] INJECT [facility] GEN PEN 3-21 UNDER THE ity of NEEDLE 32 00:00: SKIN THREE [place] gauge x 00 TIMES Medical 5/32" Ndle DAILY Branch BD MATIAS Yes [id number] INJECT [facility] GEN PEN 3-21 UNDER THE ity of NEEDLE 32 00:00: SKIN THREE [place] gauge x 00 TIMES Medical 5/32" Ndle DAILY Branch BD MATIAS Yes [id number] INJECT [facility] GEN PEN 3-21 UNDER THE ity of NEEDLE 32 00:00: SKIN THREE [place] gauge x 00 TIMES Medical 5/32" Ndle DAILY Branch BD MATIAS 2ND 202- No [id number] INJECT [facility] GEN PEN 3-21 12-15 UNDER THE ity of NEEDLE 32 00:00: 00:00 SKIN THREE [place] gauge x 00 :00 TIMES Medical 532" Ndle DAILY Branch blood sugar 2020-0 Yes [id number] 3 Un jb diagnostic 2-05 times/day ity of (ONETOUCH 00:00: [place] VERIO TEST 00 Medical STRIPS) Branch strip fluticasone 2020-0 Yes [id number] 2{spray Use 2 [facility] propionate 2-05 } Sprays in ity of 50 00:00: each [place] mcg/actuati 00 nostril Medic al on nasal daily. Branch spray blood sugar 2020-0 Yes [id number] 3 Un jb diagnostic 2-05 times/day ity of (ONETOUCH 00:00: [place] VERIO TEST 00 Medical STRIPS) Branch strip fluticasone 2020-0 Yes [id number] 2{spray Use 2 [facility] propionate 2-05 } Sprays in ity of 50 00:00: each [place] mcg/actuati 00 nostril Medic al on nasal daily. Branch spray blood sugar 2020-0 Yes [id number] 3 Un jb diagnostic 2-05 times/day ity of (ONETOUCH 00:00: [place] VERIO TEST 00 Medical STRIPS) Branch strip fluticasone 202-0 Yes [id number] 2{spray Use 2 [facility] propionate 2-05 } Sprays in ity of 50 00:00: each [place] mcg/actuati 00 nostril Medic al on nasal daily. Branch spray blood sugar 2020-0 Yes [id number] 3 Un jb diagnostic 2-05 times/day ity of (ONETOUCH 00:00: [place] VERIO TEST 00 Medical STRIPS) Branch strip fluticasone 2020-0 Yes [id number] 2{spray Use 2 [facility] propionate 2-05 } Sprays in ity of 50 00:00: each [place] mcg/actuati 00 nostril Medic al on nasal daily. Branch spray blood sugar 2020-0 Yes [id number] 3 Un jb diagnostic 2-05 times/day ity of (ONETOUCH 00:00: [place] VERIO TEST 00 Medical STRIPS) Branch strip fluticasone 2020-0 Yes [id number] 2{spray Use 2 [facility] propionate 2-05 } Sprays in ity of 50 00:00: each [place] mcg/actuati 00 nostril Medic al on nasal daily. Branch spray blood sugar 2020-0 Yes [id number] 3 Un jb diagnostic 2-05 times/day ity of (ONETOUCH 00:00: [place] VERIO TEST 00 Medical STRIPS) Branch strip fluticasone 2020-0 Yes [id number] 2{spray Use 2 [facility] propionate 2-05 } Sprays in ity of 50 00:00: each [place] mcg/actuati 00 nostril Medic al on nasal daily. Branch spray blood sugar 2020-0 Yes [id number] 3 Un jb diagnostic 2-05 times/day ity of (ONETOUCH 00:00: [place] VERIO TEST 00 Medical STRIPS) Branch strip fluticasone 2020-0 Yes [id number] 2{spray Use 2 [facility] propionate 2-05 } Sprays in ity of 50 00:00: each [place] mcg/actuati 00 nostril Medic al on nasal daily. Branch spray blood sugar 2020-0 Yes [id number] 3 Un jb diagnostic 2-05 times/day ity of (ONETOUCH 00:00: [place] VERIO TEST 00 Medical STRIPS) Branch strip fluticasone 2021-0 Yes [id number] 2{spray Use 2 [facility] propionate 2-05 } Sprays in ity of 50 00:00: each [place] mcg/actuati 00 nostril Medic al on nasal daily. Branch spray blood sugar 2020-0 Yes [id number] 3 Un jb diagnostic 2-05 times/day ity of (ONETOUCH 00:00: [place] VERIO TEST 00 Medical STRIPS) Branch strip fluticasone 1-0 Yes [id number] 2{spray Use 2 [facility] propionate 2-05 } Sprays in ity of 50 00:00: each [place] mcg/actuati 00 nostril Medic al on nasal daily. Branch spray blood sugar 2020-0 Yes [id number] 3 Un jb diagnostic 2-05 times/day ity of (ONETOUCH 00:00: [place] VERIO TEST 00 Medical STRIPS) Branch strip fluticasone 2020-0 Yes [id number] 2{spray Use 2 [facility] propionate 2-05 } Sprays in ity of 50 00:00: each [place] mcg/actuati 00 nostril Medic al on nasal daily. Branch spray blood sugar 2020-0 Yes [id number] 3 Un jb diagnostic 2-05 times/day ity of (ONETOUCH 00:00: [place] VERIO TEST 00 Medical STRIPS) Branch strip fluticasone 2020-0 Yes [id number] 2{spray Use 2 [facility] propionate 2-05 } Sprays in ity of 50 00:00: each [place] mcg/actuati 00 nostril Medic al on nasal daily. Branch spray blood sugar 2020-0 Yes [id number] 3 Un jb diagnostic 2-05 times/day ity of (ONETOUCH 00:00: [place] VERIO TEST 00 Medical STRIPS) Branch strip fluticasone 2021-0 Yes [id number] 2{spray Use 2 [facility] propionate 2-05 } Sprays in ity of 50 00:00: each [place] mcg/actuati 00 nostril Medic al on nasal daily. Branch spray blood sugar 2020-0 Yes [id number] 3 Un jb diagnostic 2-05 times/day ity of (ONETOUCH 00:00: [place] VERIO TEST 00 Medical STRIPS) Branch strip fluticasone 2021-0 Yes [id number] 2{spray Use 2 [facility] propionate 2-05 } Sprays in ity of 50 00:00: each [place] mcg/actuati 00 nostril Medic al on nasal daily. Branch spray blood sugar 2020-0 Yes [id number] 3 Un jb diagnostic 2-05 times/day ity of (ONETOUCH 00:00: [place] VERIO TEST 00 Medical STRIPS) Branch strip fluticasone 2020-0 Yes [id number] 2{spray Use 2 [facility] propionate 2-05 } Sprays in ity of 50 00:00: each [place] mcg/actuati 00 nostril Medic al on nasal daily. Branch spray blood sugar 2020-0 Yes [id number] 3 Un jb diagnostic 2-05 times/day ity of (ONETOUCH 00:00: [place] VERIO TEST 00 Medical STRIPS) Branch strip fluticasone 2020-0 Yes [id number] 2{spray Use 2 [facility] propionate 2-05 } Sprays in ity of 50 00:00: each [place] mcg/actuati 00 nostril Medic al on nasal daily. Branch spray blood sugar 2020-0 Yes [id number] 3 Un jb diagnostic 2-05 times/day ity of (ONETOUCH 00:00: [place] VERIO TEST 00 Medical STRIPS) Branch strip fluticasone 2020-0 Yes [id number] 2{spray Use 2 [facility] propionate 2-05 } Sprays in ity of 50 00:00: each [place] mcg/actuati 00 nostril Medic al on nasal daily. Branch spray blood sugar 2020-0 Yes [id number] 3 Un jb diagnostic 2-05 times/day ity of (ONETOUCH 00:00: [place] VERIO TEST 00 Medical STRIPS) Branch strip fluticasone 2020-0 Yes [id number] 2{spray Use 2 [facility] propionate 2-05 } Sprays in ity of 50 00:00: each [place] mcg/actuati 00 nostril Medic al on nasal daily. Branch spray blood sugar 2020-0 Yes [id number] 3 Un jb diagnostic 2-05 times/day ity of (ONETOUCH 00:00: [place] VERIO TEST 00 Medical STRIPS) Branch strip fluticasone 2020-0 Yes [id number] 2{spray Use 2 [facility] propionate 2-05 } Sprays in ity of 50 00:00: each [place] mcg/actuati 00 nostril Medic al on nasal daily. Branch spray blood sugar 2020-0 Yes [id number] 3 Un jb diagnostic 2-05 times/day ity of (ONETOUCH 00:00: [place] VERIO TEST 00 Medical STRIPS) Branch strip fluticasone 2021-0 Yes [id number] 2{spray Use 2 [facility] propionate 2-05 } Sprays in ity of 50 00:00: each [place] mcg/actuati 00 nostril Medic al on nasal daily. Branch spray blood sugar 202-0 Yes [id number] 3 Un bj diagnostic 2-05 times/day ity of (ONETOUCH 00:00: [place] VERIO TEST 00 Medical STRIPS) Branch strip fluticasone 2021-0 Yes [id number] 2{spray Use 2 [facility] propionate 2-05 } Sprays in ity of 50 00:00: each [place] mcg/actuati 00 nostril Medic al on nasal daily. Branch spray blood sugar 2020-0 Yes [id number] 3 Un jb diagnostic 2-05 times/day ity of (ONETOUCH 00:00: [place] VERIO TEST 00 Medical STRIPS) Branch strip fluticasone 2021-0 Yes [id number] 2{spray Use 2 [facility] propionate 2-05 } Sprays in ity of 50 00:00: each [place] mcg/actuati 00 nostril Medic al on nasal daily. Branch spray blood sugar 2020-0 Yes [id number] 3 Un jb diagnostic 2-05 times/day ity of (ONETOUCH 00:00: [place] VERIO TEST 00 Medical STRIPS) Branch strip fluticasone 2021-0 Yes [id number] 2{spray Use 2 [facility] propionate 2-05 } Sprays in ity of 50 00:00: each [place] mcg/actuati 00 nostril Medic al on nasal daily. Branch spray blood sugar 2021-0 Yes [id number] 3 Un jb diagnostic 2-05 times/day ity of (ONETOUCH 00:00: [place] VERIO TEST 00 Medical STRIPS) Branch strip fluticasone 2021-0 Yes [id number] 2{spray Use 2 [facility] propionate 2-05 } Sprays in ity of 50 00:00: each [place] mcg/actuati 00 nostril Medic al on nasal daily. Branch spray blood sugar 2021-0 Yes [id number] 3 Un jb diagnostic 2-05 times/day ity of (ONETOUCH 00:00: [place] VERIO TEST 00 Medical STRIPS) Branch strip fluticasone 2020-0 Yes [id number] 2{spray Use 2 [facility] propionate 2-05 } Sprays in ity of 50 00:00: each [place] mcg/actuati 00 nostril Medic al on nasal daily. Branch spray blood sugar 2020-0 Yes [id number] 3 Un jb diagnostic 2-05 times/day ity of (ONETOUCH 00:00: [place] VERIO TEST 00 Medical STRIPS) Branch strip fluticasone 2020-0 Yes [id number] 2{spray Use 2 [facility] propionate 2-05 } Sprays in ity of 50 00:00: each [place] mcg/actuati 00 nostril Medic al on nasal daily. Branch spray blood sugar 2020-0 Yes [id number] 3 Un jb diagnostic 2-05 times/day ity of (ONETOUCH 00:00: [place] VERIO TEST 00 Medical STRIPS) Branch strip fluticasone 2020-0 Yes [id number] 2{spray Use 2 [facility] propionate 2-05 } Sprays in ity of 50 00:00: each [place] mcg/actuati 00 nostril Medic al on nasal daily. Branch spray blood sugar 2020-0 Yes [id number] 3 Un jb diagnostic 2-05 times/day ity of (ONETOUCH 00:00: [place] VERIO TEST 00 Medical STRIPS) Branch strip fluticasone 2020-0 Yes [id number] 2{spray Use 2 [facility] propionate 2-05 } Sprays in ity of 50 00:00: each [place] mcg/actuati 00 nostril Medic al on nasal daily. Branch spray blood sugar 2020-0 Yes [id number] 3 Un jb diagnostic 2-05 times/day ity of (ONETOUCH 00:00: [place] VERIO TEST 00 Medical STRIPS) Branch strip fluticasone 2020-0 Yes [id number] 2{spray Use 2 [facility] propionate 2-05 } Sprays in ity of 50 00:00: each [place] mcg/actuati 00 nostril Medic al on nasal daily. Branch spray Insulin 2018-02 Yes [id number] Before [facility] [place], 1-11 meals, dx ity of Disposable, 00:00: code E11.9 [place] 31 gauge x 00 Pen needle Med ical /" [place]dle humalog Branch quick pen Insulin 2018-02 Yes [id number] Before [facility] [place], 1-11 meals, dx ity of Disposable, 00:00: code E11.9 [place] 31 gauge x 00 Pen needle Med ical 1/4" Ndle humalog Branch quick pen Insulin 2019- Yes [id number] Before [facility] [place], 1-11 meals, dx ity of Disposable, 00:00: code E11.9 [place] 31 gauge x 00 Pen needle Med ical 1/4" Ndle humalog Branch quick pen Insulin 2019- Yes [id number] Before [facility] [place], 1-11 meals, dx ity of Disposable, 00:00: code E11.9 [place] 31 gauge x 00 Pen needle Med ical 1/4" Ndle humalog Branch quick pen Insulin 2019- Yes [id number] Before [facility] [place], 1-11 meals, dx ity of Disposable, 00:00: code E11.9 [place] 31 gauge x 00 Pen needle Med ical 1/4" Ndle humalog Branch quick pen Insulin 2019- Yes [id number] Before [facility] [place], 1-11 meals, dx ity of Disposable, 00:00: code E11.9 [place] 31 gauge x 00 Pen needle Med ical 1/4" Ndle humalog Branch quick pen Insulin 2019- Yes [id number] Before [facility] [place], 1-11 meals, dx ity of Disposable, 00:00: code E11.9 [place] 31 gauge x 00 Pen needle Med ical 1/4" Ndle humalog Branch quick pen Insulin 2019-1 Yes [id number] Before [facility] [place], 1-11 meals, dx ity of Disposable, 00:00: code E11.9 [place] 31 gauge x 00 Pen needle Med ical 1/4" Ndle humalog Branch quick pen Insulin 2019-1 Yes [id number] Before [facility] [place], 1-11 meals, dx ity of Disposable, 00:00: code E11.9 [place] 31 gauge x 00 Pen needle Med ical 1/4" Ndle humalog Branch quick pen Insulin 2019-1 Yes [id number] Before [facility] [place], 1-11 meals, dx ity of Disposable, 00:00: code E11.9 [place] 31 gauge x 00 Pen needle Med ical 1/4" Ndle humalog Branch quick pen Insulin 2019- Yes [id number] Before [facility] [place], 1-11 meals, dx ity of Disposable, 00:00: code E11.9 [place] 31 gauge x 00 Pen needle Med ical 1/4" Ndle humalog Branch quick pen Insulin 2019- Yes [id number] Before [facility] [place], 1-11 meals, dx ity of Disposable, 00:00: code E11.9 [place] 31 gauge x 00 Pen needle Med ical 1/4" Ndle humalog Branch quick pen Insulin 2019- Yes [id number] Before [facility] [place], 1-11 meals, dx ity of Disposable, 00:00: code E11.9 [place] 31 gauge x 00 Pen needle Med ical 1/4" Ndle humalog Branch quick pen Insulin 2018- Yes [id number] Before [facility] [place], 1-11 meals, dx ity of Disposable, 00:00: code E11.9 [place] 31 gauge x 00 Pen needle Med ical 1/4" Ndle humalog Branch quick pen Insulin 2018- Yes [id number] Before [facility] [place], 1-11 meals, dx ity of Disposable, 00:00: code E11.9 [place] 31 gauge x 00 Pen needle Med ical 1/4" Ndle humalog Branch quick pen Insulin 2018- Yes [id number] Before [facility] [place], 1-11 meals, dx ity of Disposable, 00:00: code E11.9 [place] 31 gauge x 00 Pen needle Med ical 1/4" Ndle humalog Branch quick pen Insulin 2018- Yes [id number] Before [facility] [place], 1-11 meals, dx ity of Disposable, 00:00: code E11.9 [place] 31 gauge x 00 Pen needle Med ical 1/4" Ndle humalog Branch quick pen Insulin 2018-2021- No [id number] Before [facility] [place], 1-11 12-15 meals, dx ity o f Disposable, 00:00: 00:00 code E11.9 [place] 31 gauge x 00 :00 Pen needle Med ical 1/4" Ndle humalog Branch quick pen COLCRYS 0.6 2019-0 Yes [id number] .6mg TAKE 1 [facility] mg tablet 2-19 TABLET BY ity o f 00:00: MOUTH DAILY Medical Branch COLCRYS 0.6 2019-0 Yes [id number] .6mg TAKE 1 [facility] mg tablet 2-19 TABLET BY ity o f 00:00: MOUTH DAILY Medical Branch COLCRYS 0.6 2019-0 Yes [id number] .6mg TAKE 1 [facility] mg tablet 2-19 TABLET BY ity o f 00:00: MOUTH 00 DAILY Medical Branch COLCRYS 0.6 2019-0 Yes [id number] .6mg TAKE 1 [facility] mg tablet 2-19 [...] DAILY Medical Branch COLCRYS 0.6 2019-0 Yes [id number] .6mg TAKE 1 [facility] mg tablet 2-19 TABLET BY ity o f 00:00: MOUTH DAILY Medical Branch COLCRYS 0.6 2019-0 Yes .6mg TAKE 1 [facility] mg tablet 2-19 TABLET BY ity o f 00:00: MOUTH DAILY Medical Branch COLCRYS 0.6 2019-0 Yes .6mg TAKE 1 [facility] mg tablet 2-19 TABLET BY ity o f 00:00: MOUTH DAILY Medical Branch COLCRYS 0.6 2019-0 Yes [id number] .6mg TAKE 1 [facility] mg tablet 2-19 TABLET BY ity o f 00:00: MOUTH DAILY Medical Branch COLCRYS 0.6 2019-0 Yes .6mg TAKE 1 [facility] mg tablet 2-19 TABLET BY ity o f 00:00: MOUTH DAILY Medical Branch COLCRYS 0.6 2019-0 Yes .6mg TAKE 1 [facility] mg tablet 2-19 TABLET BY ity o f 00:00: MOUTH DAILY Medical Branch COLCRYS 0.6 2019-0 Yes [id number] .6mg TAKE 1 [facility] mg tablet 2-19 TABLET BY ity o f 00:00: MOUTH DAILY Medical Branch COLCRYS 0.6 2019-0 Yes .6mg TAKE 1 [facility] mg tablet 2-19 TABLET BY ity o f 00:00: MOUTH DAILY Medical Branch COLCRYS 0.6 2019-0 Yes [id number] .6mg TAKE 1 [facility] mg tablet 2-19 TABLET BY ity o f 00:00: MOUTH [place] 00 DAILY Medical Branch COLCRYS 0.6 2019-0 Yes [id number] .6mg TAKE 1 [facility] mg tablet 2-19 TABLET BY ity o f 00:00: MOUTH 00 DAILY Medical Branch COLCRYS 0.6 2019-0 Yes [id number] .6mg TAKE 1 [facility] mg tablet 2-19 TABLET BY ity o f 00:00: MOUTH 00 DAILY Medical Branch COLCRYS 0.6 2019-0 Yes [id number] .6mg TAKE 1 [facility] mg tablet 2-19 TABLET BY ity o f 00:00: MOUTH DAILY Medical Branch COLCRYS 0.6 2019-0 Yes [id number] .6mg TAKE 1 [facility] mg tablet 2-19 TABLET BY ity o f 00:00: MOUTH 00 DAILY Medical Branch COLCRYS 0.6 2019-0 Yes [id number] .6mg TAKE 1 [facility] mg tablet 2-19 TABLET BY ity o f 00:00: MOUTH 00 DAILY Medical Branch COLCRYS 0.6 2019-0 Yes [id number] .6mg TAKE 1 [facility] mg tablet 2-19 TABLET BY ity o f 00:00: MOUTH DAILY Medical Branch COLCRYS 0.6 2019-0 Yes [id number] .6mg TAKE 1 [facility] mg tablet 2-19 TABLET BY ity o f 00:00: MOUTH DAILY Medical Branch COLCRYS 0.6 2019-0 Yes [id number] .6mg TAKE 1 [facility] mg tablet 2-19 TABLET BY ity o f 00:00: MOUTH DAILY Medical Branch COLCRYS 0.6 2019-0 Yes [id number] .6mg TAKE 1 [facility] mg tablet 2-19 TABLET BY ity o f 00:00: MOUTH DAILY Medical Branch COLCRYS 0.6 2019-0 Yes [id number] .6mg TAKE 1 [facility] mg tablet 2-19 TABLET BY ity o f 00:00: MOUTH DAILY Medical Branch COLCRYS 0.6 2019-0 Yes [id number] .6mg TAKE 1 [facility] mg tablet 2-19 TABLET BY ity o f 00:00: MOUTH DAILY Medical Branch COLCRYS 0.6 2019-0 Yes [id number] .6mg TAKE 1 [facility] mg tablet 2-19 TABLET BY ity o f 00:00: MOUTH 00 DAILY Medical Branch COLCRYS 0.6 2019-0 Yes [id number] .6mg TAKE 1 [facility] mg tablet 2-19 TABLET BY [place] 00:00: MOUTH [address] Branch Immunizations Ordered Filled Immunization Date Status Comments [facility] e Immunization Name Name SARS-COV-2 COVID-19 2020-11-07 Completed Unive rsity of PFIZER VACCINE 00:00:00 [facility] SARS-COV-2 COVID-19 2020-11-07 Completed Unive rsity of PFIZER VACCINE 00:00:00 [facility] Branch SARS-COV-2 COVID-19 2020-11-07 Completed Unive rsity of PFIZER VACCINE 00:00:00 [facility] SARS-COV-2 COVID-19 2020-11-07 Completed Unive rsity of PFIZER VACCINE 00:00:00 [facility] SARS-COV-2 COVID-19 2020-11-07 Completed Unive rsity of PFIZER VACCINE 00:00:00 [facility] SARS-COV-2 COVID-19 2020-11-07 Completed Unive rsity of PFIZER VACCINE 00:00:00 [facility] SARS-COV-2 COVID-19 2020-11-07 Completed Unive rsity of PFIZER VACCINE 00:00:00 [facility] SARS-COV-2 COVID-19 2020-11-07 Completed Unive rsity of PFIZER VACCINE 00:00:00 [facility] SARS-COV-2 COVID-19 2020-11-07 Completed Unive rsity of PFIZER VACCINE 00:00:00 [facility] SARS-COV-2 COVID-19 2020-11-07 Completed Unive rsity of PFIZER VACCINE 00:00:00 [facility] SARS-COV-2 COVID-19 2020-11-07 Completed Unive rsity of PFIZER VACCINE 00:00:00 [facility] SARS-COV-2 COVID-19 2020-11-07 Completed Unive rsity of PFIZER VACCINE 00:00:00 [facility] SARS-COV-2 COVID-19 2020-11-07 Completed Unive rsity of PFIZER VACCINE 00:00:00 [facility] SARS-COV-2 COVID-19 2020-11-07 Completed Unive rsity of PFIZER VACCINE 00:00:00 [facility] SARS-COV-2 COVID-19 2020-11-07 Completed Unive rsity of PFIZER VACCINE 00:00:00 [facility] Branch SARS-COV-2 COVID-19 2020-11-07 Completed Unive rsity of PFIZER VACCINE 00:00:00 [place] [facility] Branch SARS-COV-2 COVID-19 2020-11-07 Completed Unive rsity of PFIZER VACCINE 00:00:00 [facility] Branch SARS-COV-2 COVID-19 2020-11-07 Completed Unive rsity of PFIZER VACCINE 00:00:00 [facility] Branch SARS-COV-2 COVID-19 2020-11-07 Completed Unive rsity of PFIZER VACCINE 00:00:00 [facility] Branch SARS-COV-2 COVID-19 2020-11-07 Completed Unive rsity of PFIZER VACCINE 00:00:00 [facility] Branch SARS-COV-2 COVID-19 2020-11-07 Completed Unive rsity of PFIZER VACCINE 00:00:00 [facility] Branch SARS-COV-2 COVID-19 2020-11-07 Completed Unive rsity of PFIZER VACCINE 00:00:00 [facility] Branch SARS-COV-2 COVID-19 2020-11-07 Completed Unive rsity of PFIZER VACCINE 00:00:00 [facility] Branch SARS-COV-2 COVID-19 2020-11-07 Completed Unive rsity of PFIZER VACCINE 00:00:00 [facility] Branch SARS-COV-2 COVID-19 2020-11-07 Completed Unive rsity of PFIZER VACCINE 00:00:00 [facility] Branch SARS-COV-2 COVID-19 2020-11-07 Completed Unive rsity of PFIZER VACCINE 00:00:00 [facility] Branch SARS-COV-2 COVID-19 2020-11-07 Completed Unive rsity of PFIZER VACCINE 00:00:00 [facility] Branch SARS-COV-2 COVID-19 2020-11-07 Completed Unive rsity of PFIZER VACCINE 00:00:00 [facility] SARS-COV-2 COVID-19 2020-04-19 Completed Unive rsity of PFIZER VACCINE 00:00:00 [facility] SARS-COV-2 COVID-19 2020-04-19 Completed Unive rsity of PFIZER VACCINE 00:00:00 [facility] SARS-COV-2 COVID-19 2020-04-19 Completed Unive rsity of PFIZER VACCINE 00:00:00 [facility] SARS-COV-2 COVID-19 2020-04-19 Completed Unive rsity of PFIZER VACCINE 00:00:00 [facility] SARS-COV-2 COVID-19 2020-04-19 Completed Unive rsity of PFIZER VACCINE 00:00:00 [facility] SARS-COV-2 COVID-19 2020-04-19 Completed Unive rsity of PFIZER VACCINE 00:00:00 [facility] Branch SARS-COV-2 COVID-19 2020-04-19 Completed Unive rsity of PFIZER VACCINE 00:00:00 [facility] SARS-COV-2 COVID-19 2020-04-19 Completed Unive rsity of PFIZER VACCINE 00:00:00 [facility] SARS-COV-2 COVID-19 2020-04-19 Completed Unive rsity of PFIZER VACCINE 00:00:00 [facility] SARS-COV-2 COVID-19 2020-04-19 Completed Unive rsity of PFIZER VACCINE 00:00:00 [facility] SARS-COV-2 COVID-19 2020-04-19 Completed Unive rsity of PFIZER VACCINE 00:00:00 [facility] SARS-COV-2 COVID-19 2020-04-19 Completed Unive rsity of PFIZER VACCINE 00:00:00 [facility] SARS-COV-2 COVID-19 2020-04-19 Completed Unive rsity of PFIZER VACCINE 00:00:00 [facility] SARS-COV-2 COVID-19 2020-04-19 Completed Unive rsity of PFIZER VACCINE 00:00:00 [facility] SARS-COV-2 COVID-19 2020-04-19 Completed Unive rsity of PFIZER VACCINE 00:00:00 [facility] SARS-COV-2 COVID-19 2020-04-19 Completed Unive rsity of PFIZER VACCINE 00:00:00 [facility] SARS-COV-2 COVID-19 2020-04-19 Completed Unive rsity of PFIZER VACCINE 00:00:00 [facility] SARS-COV-2 COVID-19 2020-04-19 Completed Unive rsity of PFIZER VACCINE 00:00:00 [facility] SARS-COV-2 COVID-19 2020-04-19 Completed Unive rsity of PFIZER VACCINE 00:00:00 [facility] Branch SARS-COV-2 COVID-19 2020-04-19 Completed Unive rsity of PFIZER VACCINE 00:00:00 [facility] SARS-COV-2 COVID-19 2020-04-19 Completed Unive rsity of PFIZER VACCINE 00:00:00 [facility] Branch SARS-COV-2 COVID-19 2020-04-19 Completed Unive rsity of PFIZER VACCINE 00:00:00 [facility] SARS-COV-2 COVID-19 2020-04-19 Completed Unive rsity of PFIZER VACCINE 00:00:00 [facility] Branch SARS-COV-2 COVID-19 2020-04-19 Completed Unive rsity of PFIZER VACCINE 00:00:00 [facility] SARS-COV-2 COVID-19 2020-04-19 Completed Unive rsity of PFIZER VACCINE 00:00:00 [facility] SARS-COV-2 COVID-19 2020-04-19 Completed Unive rsity of PFIZER VACCINE 00:00:00 [facility] SARS-COV-2 COVID-19 2020-04-19 Completed Unive rsity of PFIZER VACCINE 00:00:00 [facility] SARS-COV-2 COVID-19 2020-04-19 Completed Unive rsity of PFIZER VACCINE 00:00:00 [facility] SARS-COV-2 COVID-19 2020-03-21 Completed Unive rsity of PFIZER VACCINE 00:00:00 [facility] Branch SARS-COV-2 COVID-19 2020-03-21 Completed Unive rsity of PFIZER VACCINE 00:00:00 [facility] Branch SARS-COV-2 COVID-19 2020-03-21 Completed Unive rsity of PFIZER VACCINE 00:00:00 [facility] SARS-COV-2 COVID-19 2020-03-21 Completed Unive rsity of PFIZER VACCINE 00:00:00 [facility] SARS-COV-2 COVID-19 2020-03-21 Completed Unive rsity of PFIZER VACCINE 00:00:00 [facility] SARS-COV-2 COVID-19 2020-03-21 Completed Unive rsity of PFIZER VACCINE 00:00:00 [facility] SARS-COV-2 COVID-19 2020-03-21 Completed Unive rsity of PFIZER VACCINE 00:00:00 [facility] [facility] SARS-COV-2 COVID-19 2020-03-21 Completed [facility] PFIZER VACCINE 00:00:00 [facility] SARS-COV-2 COVID-19 2020-03-21 Completed [facility] PFIZER VACCINE 00:00:00 [facility] SARS-COV-2 COVID-19 2020-03-21 Completed [facility] PFIZER VACCINE 00:00:00 [facility] SARS-COV-2 COVID-19 2020-03-21 Completed [facility] PFIZER VACCINE 00:00:00 [facility] SARS-COV-2 COVID-19 2020-03-21 Completed [facility] PFIZER VACCINE 00:00:00 [facility] SARS-COV-2 COVID-19 2020-03-21 Completed [facility] PFIZER VACCINE 00:00:00 [facility] SARS-COV-2 COVID-19 2020-03-21 Completed [facility] PFIZER VACCINE 00:00:00 [facility] SARS-COV-2 COVID-19 2020-03-21 Completed [facility] PFIZER VACCINE 00:00:00 [facility] SARS-COV-2 COVID-19 2020-03-21 Completed [facility] PFIZER VACCINE 00:00:00 [facility] SARS-COV-2 COVID-19 2020-03-21 Completed [facility] PFIZER VACCINE 00:00:00 [facility] SARS-COV-2 COVID-19 2020-03-21 Completed [facility] PFIZER VACCINE 00:00:00 [facility] SARS-COV-2 COVID-19 2020-03-21 Completed [facility] PFIZER VACCINE 00:00:00 [facility] SARS-COV-2 COVID-19 2020-03-21 Completed [facility] PFIZER VACCINE 00:00:00 [facility] SARS-COV-2 COVID-19 2020-03-21 Completed [facility] PFIZER VACCINE 00:00:00 [facility] SARS-COV-2 COVID-19 2020-03-21 Completed [facility] PFIZER VACCINE 00:00:00 [facility] SARS-COV-2 COVID-19 2020-03-21 Completed [facility] PFIZER VACCINE 00:00:00 [facility] SARS-COV-2 COVID-19 2020-03-21 Completed [facility] PFIZER VACCINE 00:00:00 [facility] SARS-COV-2 COVID-19 2020-03-21 Completed [facility] PFIZER VACCINE 00:00:00 [facility] SARS-COV-2 COVID-19 2020-03-21 Completed [facility] PFIZER VACCINE 00:00:00 [facility] SARS-COV-2 COVID-19 2020-03-21 Completed [facility] PFIZER VACCINE 00:00:00 [facility] SARS-COV-2 COVID-19 2020-03-21 Completed [facility] PFIZER VACCINE 00:00:00 [facility] Influenza High Dose 2019-05-29 Completed [facility] Influenza High Dose 2019-05-29 Completed [facility] 00:00[facility]00 [facility] Influenza High Dose 2019-05-29 Completed [facility] 00:00:00 [facility] Influenza High Dose 2019-05-29 Completed [facility] 00:00[facility]00 [facility] Influenza High Dose 2019-05-29 Completed [facility] 00:00[facility]00 [facility] Influenza High Dose 2019-05-29 Completed [facility] 00:00:00 [facility] Influenza High Dose 2019-05-29 Completed [facility] 00:00[facility]00 [facility] Influenza High Dose 2019-05-29 Completed [facility] 00:00[facility]00 [facility] Influenza High Dose 2019-05-29 Completed [facility] 00:00:00 [facility] Influenza High Dose 2019-05-29 Completed [facility] 00:00:00 [facility] Influenza High Dose 2019-05-29 Completed [facility] 00:00:00 [facility] Influenza High Dose 2019-05-29 Completed [facility] 00:00:00 [facility] Influenza High Dose 2019-05-29 Completed [facility] 00:00:00 [facility] Influenza High Dose 2019-05-29 Completed [facility] 00:00:00 [facility] Influenza High Dose 2019-05-29 Completed [facility] 00:00:00 [facility] Influenza High Dose 2019-05-29 Completed [facility] 00:00:00 [facility] Influenza High Dose 2019-05-29 Completed [facility] 00:00:00 [facility] Influenza High Dose 2019-05-29 Completed [facility] 00:00:00 [facility] Influenza High Dose 2019-05-29 Completed [facility] 00:00:00 [facility] Influenza High Dose 2019-05-29 Completed [facility] 00:00:00 [facility] Influenza High Dose 2019-05-29 Completed [facility] 00:00:00 [facility] Influenza High Dose 2019-05-29 Completed [facility] 00:00:00 [facility] Influenza High Dose 2019-05-29 Completed [facility] 00:00:00 [facility] Influenza High Dose 2019-05-29 Completed [facility] 00:00:00 [facility] Influenza High Dose 2019-05-29 Completed [facility] 00:00:00 [facility] Influenza High Dose 2019-05-29 Completed [facility] 00:00:00 [facility] Influenza High Dose 2019-05-29 Completed [facility] 00:00:00 [facility] Influenza High Dose 2019-05-29 Completed [facility] 00:00:00 [facility] Influenza High Dose 2017-02-10 Completed [facility] 00:00:00 [facility] Influenza High Dose 2017-02-10 Completed [facility] 00:00:00 [facility] Influenza High Dose 2017-02-10 Completed [facility] 00:00:00 [facility] Influenza High Dose 2017-02-10 Completed [facility] 00:00:00 [facility] Influenza High Dose 2017-02-10 Completed [facility] 00:00:00 [facility] Influenza High Dose 2017-02-10 Completed [facility] 00:00:00 [facility] Influenza High Dose 2017-02-10 Completed [facility] 00:00:00 [facility] Influenza High Dose 2017-02-10 Completed [facility] 00:00:00 [facility] Influenza High Dose 2017-02-10 Completed [facility] 00:00:00 [facility] Influenza High Dose 2017-02-10 Completed [facility] 00:00:00 [facility] Influenza High Dose 2017-02-10 Completed [facility] 00:00:00 [facility] Influenza High Dose 2017-02-10 Completed [facility] 00:00:00 [facility] Influenza High Dose 2017-02-10 Completed [facility] 00:00:00 [facility] Influenza High Dose 2017-02-10 Completed [facility] 00:00:00 [facility] Influenza High Dose 2017-02-10 Completed [facility] 00:00:00 [facility] Influenza High Dose 2017-02-10 Completed [facility] 00:00:00 [facility] Influenza High Dose 2017-02-10 Completed [facility] 00:00:00 [facility] Influenza High Dose 2017-02-10 Completed [facility] 00:00:00 [facility] Influenza High Dose 2017-02-10 Completed [facility] 00:00:00 [facility] Influenza High Dose 2017-02-10 Completed [facility] 00:00:00 [facility] Influenza High Dose 2017-02-10 Completed [facility] 00:00:00 [facility] Influenza High Dose 2017-02-10 Completed [facility] 00:00:00 [facility] Influenza High Dose 2017-02-10 Completed [facility] 00:00:00 [facility] Influenza High Dose 2017-02-10 Completed [facility] 00:00:00 [facility] Influenza High Dose 2017-02-10 Completed [facility] 00:00:00 [facility] Influenza High Dose 2017-02-10 Completed [facility] 00:00:00 [facility] Influenza High Dose 2017-02-10 Completed [facility] 00:00:00 [facility] Influenza High Dose 2017-02-10 Completed [facility] 00:00:00 [facility] Influenza High Dose 2015-12-25 Completed [facility] 00:00:00 [facility] Influenza High Dose 2015-12-25 Completed [facility] 00:00:00 [facility] Influenza High Dose 2015-12-25 Completed [facility] 00:00:00 [facility] Influenza High Dose 2015-12-25 Completed [facility] 00:00:00 [facility] Influenza High Dose 2015-12-25 Completed [facility] 00:00:00 [facility] Influenza High Dose 2015-12-25 Completed [facility] 00:00:00 [facility] Influenza High Dose 2015-12-25 Completed [facility] 00:00:00 [facility] Influenza High Dose 2015-12-25 Completed [facility] 00:00:00 [facility] Influenza High Dose 2015-12-25 Completed [facility] 00:00:00 [facility] Influenza High Dose 2015-12-25 Completed [facility] 00:00:00 [facility] Influenza High Dose 2015-12-25 Completed [facility] 00:00:00 [facility] Influenza High Dose 2015-12-25 Completed [facility] 00:00:00 [facility] Influenza High Dose 2015-12-25 Completed [facility] 00:00:00 [facility] Influenza High Dose 2015-12-25 Completed [facility] 00:00:00 [facility] Influenza High Dose 2015-12-25 Completed [facility] 00:00:00 [facility] Influenza High Dose 2015-12-25 Completed [facility] 00:00:00 [facility] Influenza High Dose 2015-12-25 Completed [facility] 00:00:00 [facility] Influenza High Dose 2015-12-25 Completed [facility] 00:00:00 [facility] Influenza High Dose 2015-12-25 Completed [facility] 00:00:00 [facility] Influenza High Dose 2015-12-25 Completed [facility] 00:00:00 [facility] Influenza High Dose 2015-12-25 Completed [facility] 00:00:00 [facility] Influenza High Dose 2015-12-25 Completed [facility] 00:00:00 [facility] Influenza High Dose 2015-12-25 Completed [facility] 00:00:00 [facility] Influenza High Dose 2015-12-25 Completed [facility] 00:00:00 [facility] Influenza High Dose 2015-12-25 Completed [facility] 00:00:00 [facility] Influenza High Dose 2015-12-25 Completed [facility] 00:00:00 [facility] Influenza High Dose 2015-12-25 Completed [facility] 00:00:00 [facility] Influenza High Dose 2015-12-25 Completed [facility] 00:00:00 [facility] Influenza High Dose 2015-03-20 Completed [facility] 00:00:00 [facility] TDAP 2015-03-20 Completed [facility] 00:00:00 [facility] Influenza High Dose 2015-03-20 Completed [facility] 00:00:00 [facility] TDAP 2015-03-20 Completed University [facility] 00:00:00 [facility] Influenza High Dose 2015-03-20 Completed [facility] 00:00:00 [facility] TDAP 2015-03-20 Completed University [facility] 00:00:00 [facility] Influenza High Dose 2015-03-20 Completed [facility] 00:00:00 [facility] TDAP 2015-03-20 Completed University [facility] 00:00:00 [facility] Influenza High Dose 2015-03-20 Completed [facility] 00:00:00 [facility] TDAP 2015-03-20 Completed University [facility] 00:00:00 [facility] Influenza High Dose 2015-03-20 Completed [facility] 00:00:00 [facility] TDAP 2015-03-20 Completed University [facility] 00:00:00 [facility] Influenza High Dose 2015-03-20 Completed [facility] 00:00:00 [facility] TDAP 2015-03-20 Completed University [facility] 00:00:00 [facility] Influenza High Dose 2015-03-20 Completed [facility] 00:00:00 [facility] TDAP 2015-03-20 Completed [facility] 00:00:00 [facility] Influenza High Dose 2015-03-20 Completed [facility] 00:00:00 [facility] TDAP 2015-03-20 Completed University [facility] 00:00:00 [facility] Influenza High Dose 2015-03-20 Completed [facility] 00:00:00 [facility] TDAP 2015-03-20 Completed [facility] 00:00:00 [facility] Influenza High Dose 2015-03-20 Completed [facility] 00:00:00 [facility] TDAP 2015-03-20 Completed University [facility] 00:00:00 [facility] Influenza High Dose 2015-03-20 Completed [facility] 00:00:00 [facility] TDAP 2015-03-20 Completed [facility] 00:00:00 [facility] Influenza High Dose 2015-03-20 Completed [facility] 00:00:00 [facility] TDAP 2015-03-20 Completed [facility] 00:00:00 [facility] Influenza High Dose 2015-03-20 Completed [facility] 00:00:00 [facility] TDAP 2015-03-20 Completed [facility] 00:00:00 [facility] Influenza High Dose 2015-03-20 Completed [facility] 00:00:00 [facility] TDAP 2015-03-20 Completed [facility] 00:00:00 [facility] Influenza High Dose 2015-03-20 Completed [facility] 00:00:00 [facility] TDAP 2015-03-20 Completed [facility] 00:00:00 [facility] Influenza High Dose 2015-03-20 Completed [facility] 00:00:00 [facility] TDAP 2015-03-20 Completed [facility] 00:00:00 [facility] Influenza High Dose 2015-03-20 Completed [facility] 00:00:00 [facility] TDAP 2015-03-20 Completed [facility] 00:00:00 [facility] Influenza High Dose 2015-03-20 Completed [facility] 00:00:00 [facility] TDAP 2015-03-20 Completed [facility] 00:00:00 [facility] Influenza High Dose 2015-03-20 Completed [facility] 00:00:00 [facility] TDAP 2015-03-20 Completed [facility] 00:00:00 [facility] Influenza High Dose 2015-03-20 Completed [facility] 00:00:00 [facility] TDAP 2015-03-20 Completed [facility] 00:00:00 [facility] Influenza High Dose 2015-03-20 Completed [facility] 00:00:00 [facility] TDAP 2015-03-20 Completed University [facility] 00:00:00 [facility] Influenza High Dose 2015-03-20 Completed [facility] 00:00:00 [facility] TDAP 2015-03-20 Completed [facility] 00:00:00 [facility] Influenza High Dose 2015-03-20 Com[facility] 00:00:00 [facility] Influenza High Dose 2015-03-20 Completed [facility] 00:00:00 [facility] TDAP 2015-03-20 Completed [facility] 00:00:00 [facility] Influenza High Dose 2015-03-20 Completed [facility] 00:00:00 [facility] Influenza High Dose 2015-03-20 Completed [facility] 00:00:00 [facility] Influenza High Dose 2015-03-20 Completed [facility] 00:00:00 [facility] 2015-03-20 Completed [facility] 00:00:00 [facility] Pneumococcal 13 2014-08-01 Completed [facility] [...] Completed [facility] of Conjugate, PCV13 00:00:00 [place] [facility]Prevnar 13[facility] Influenza High Dose 2013-11-29 Completed [facility] 00:[facility]00 [facility] Influenza High Dose 2013-11-29 Completed [facility] 00:00:00 [place] [facility] Influenza High Dose 2013-11-29 Completed [facility] 00:00:00 [place] [facility] Influenza High Dose 2013-11-29 Completed [facility] 00:00:00 [facility] [place] [facility] Influenza High Dose 2013-11-29 Completed [facility] 00:00:00 [place] [facility] Influenza High Dose 2013-11-29 Completed [facility] 00:00:00 [place] [facility] Influenza High Dose 2013-11-29 Completed [facility] 00:00[facility]00 [facility] Influenza High Dose 2013-11-29 Completed [facility] 00:00:00 [place] [facility] Influenza High Dose 2013-11-29 Completed [facility] 00:00:00 [place] [facility] Influenza High Dose 2013-11-29 Completed [facility] 00:00:00 [facility] Influenza High Dose 2013-11-29 Completed [facility] 00:00:00 [place] [facility] Influenza High Dose 2013-11-29 Completed [facility] 00:00:00 [place] [facility] Influenza High Dose 2013-11-29 Completed [facility] 00:00:00 [facility] Influenza High Dose 2013-11-29 Completed [facility] 00:00:00 [place] [facility] Influenza High Dose 2013-11-29 Completed [facility] 00:00:00 [place] [facility] Influenza High Dose 2013-11-29 Completed [facility] 00:00:00 [place] [facility] Influenza High Dose 2013-11-29 Completed [facility] 00:00:00 [place] [facility] Influenza High Dose 2013-11-29 Completed [facility] 00:00:00 [place] [facility] Influenza High Dose 2013-11-29 Completed [facility] 00:00:00 [place] [facility] Influenza High Dose 2013-11-29 Completed [facility] 00:00:00 [place] [facility] Influenza High Dose 2013-11-29 Completed [facility] 00:00:00 [facility] Influenza High Dose 2013-11-29 Completed [facility] 00:00:00 [facility] Influenza High Dose 2013-11-29 Completed [facility] 00:00:00 [facility] Influenza High Dose 2013-11-29 Completed [facility] 00:00:00 [facility] Influenza High Dose 2013-11-29 Completed [facility] 00:00:00 [facility] Influenza High Dose 2013-11-29 Completed [facility] 00:00:00 [facility] Influenza High Dose 2013-11-29 Completed [facility] 00:00:00 [facility] Influenza High Dose 2013-11-29 Completed [facility] 00:00:00 [facility] Influenza High Dose 2013-04-07 Completed [facility] 00:00:00 [facility] Influenza High Dose 2013-04-07 Completed [facility] 00:00:00 [facility] Influenza High Dose 2013-04-07 Completed [facility] 00:00:00 [facility] Influenza High Dose 2013-04-07 Completed [facility] 00:00:00 [facility] Influenza High Dose 2013-04-07 Completed [facility] 00:00:00 [facility] Influenza High Dose 2013-04-07 Completed [facility] 00:00:00 [facility] Influenza High Dose 2013-04-07 Completed [facility] 00:00:00 [facility] Influenza High Dose 2013-04-07 Completed [facility] 00:00:00 [facility] Influenza High Dose 2013-04-07 Completed [facility] 00:00:00 [facility] Influenza High Dose 2013-04-07 Completed [facility] 00:00:00 [facility] Influenza High Dose 2013-04-07 Completed [facility] 00:00:00 [facility] Influenza High Dose 2013-04-07 Completed [facility] 00:00:00 [facility] Influenza High Dose 2013-04-07 Completed [facility] 00:00:00 [facility] Influenza High Dose 2013-04-07 Completed [facility] 00:00:00 [facility] Influenza High Dose 2013-04-07 Completed [facility] 00:00:00 [facility] Influenza High Dose 2013-04-07 Completed [facility] 00:00:00 [facility] Influenza High Dose 2013-04-07 Completed [facility] of 00:00:00 [facility] Influenza High Dose 2013-04-07 Completed [facility] 00[facility] Influenza High Dose 2013-04-07 Completed [facility] Influenza High Dose 2013-04-07 Completed [facility] Influenza High Dose 2013-04-07 Completed Unive rsity of 00:00:00 [facility] Influenza High Dose 2013-04-07 Completed Unive rsity of 00:00:00 [facility] Influenza High Dose 2013-04-07 Completed [facility] Influenza High Dose 2013-04-07 Completed Unive rsity of 00:00:00 [facility] Influenza High Dose 2013-04-07 Completed Unive rsity of 00:00:00 [facility] Influenza High Dose 2013-04-07 Completed Unive rsity of 00:00:00 [facility] Influenza High Dose 2013-04-07 Completed Unive rsity of 00:00:00 [facility] Influenza High Dose 2013-04-07 Completed Unive rsity of 00:00:00 [facility] Influenza Virus 2009-12-24 Completed Universit y of Vaccine 00:00:00 [facility] Influenza Virus 2009-12-24 Completed Universit y of Vaccine 00:00:00 [facility] Influenza Virus 2009-12-24 Completed Universit y of Vaccine 00:00:00 [facility] Influenza Virus 2009-12-24 Completed Universit y of Vaccine 00:00:00 [facility] Influenza Virus 2009-12-24 Completed Universit y of Vaccine 00:00:00 [facility] Influenza Virus 2009-12-24 Completed Universit y of Vaccine 00:00:00 [facility] Influenza Virus 2009-12-24 Completed Universit y of Vaccine 00:00:00 [facility] Influenza Virus 2009-12-24 Completed Universit y of Vaccine 00:00:00 [facility] Influenza Virus 2009-12-24 Completed Universit y of Vaccine 00:00:00 [facility] Influenza Virus 2009-12-24 Completed Universit y of Vaccine 00:00:00 [facility] Influenza Virus 2009-12-24 Completed Universit y of Vaccine 00:00:00 [facility] Influenza Virus 2009-12-24 Completed Universit y of Vaccine 00:00:00 [facility] Influenza Virus 2009-12-24 Completed Universit y of Vaccine 00:00:00 [facility] Influenza Virus 2009-12-24 Completed Universit y of Vaccine 00:00:00 [facility] Influenza Virus 2009-12-24 Completed Universit y of Vaccine 00:00:00 [facility] Influenza Virus 2009-12-24 Completed Universit y of Vaccine 00:00:00 [facility] Influenza Virus 2009-12-24 Completed Universit y of Vaccine 00:00:00 [facility] Influenza Virus 2009-12-24 Completed Universit y of Vaccine 00:00:00 [facility] Influenza Virus 2009-12-24 Completed Universit y of Vaccine 00:00:00 [facility] Influenza Virus 2009-12-24 Completed Universit y of Vaccine 00:00:00 [facility] Influenza Virus 2009-12-24 Completed Universit y of Vaccine 00:00:00 [facility] Influenza Virus 2009-12-24 Completed Universit y of Vaccine 00:00:00 [facility] Influenza Virus 2009-12-24 Completed Universit y of Vaccine 00:00:00 [facility] Influenza Virus 2009-12-24 Completed Universit y of Vaccine 00:00:00 [facility] Influenza Virus 2009-12-24 Completed Universit y of Vaccine 00:00:00 [facility] Influenza Virus 2009-12-24 Completed Universit y of Vaccine 00:00:00 [facility] Influenza Virus 2009-12-24 Completed Universit y of Vaccine 00:00:00 [facility] Influenza Virus 2009-12-24 Completed Universit y of Vaccine 00:00:00 [facility] Pneumococcal 2008-06-23 Completed University o f Polysaccharide, [...] Systolic blood 2022-08-28 03:00:00 186 [facility]Hg[facility] 2022-08-28 03:00:00 89 mm[Hg] Unive [facility] Heart rate 2022-08-28 03:00:00 84 /min [facility] Respiratory rate 2022-08-28 03:00:00 18 /min [facility] Oxygen saturation in 2022-08-28 03:00:00 96 /min [facility] Arterial blood by [facility] Pulse oximetry [place] Body temperature 2022-08-28 02:17:59 36.56 Fabienne [facility] Body height 2022-08-28 02:06:00 175.3 cm [facility] Body weight 2022-08-28 02:06:00 154.223 kg [facility] BMI 2022-08-28 02:06:00 50.21 kg/m2 [facility] Systolic blood 2021-11-08 19:31:00 166 mm[Hg] Univer [facility]ity of [facility] Diastolic blood 2021-11-08 19:31:00 83 mm[Hg] Unive rsity of [facility] Heart rate 2021-11-08 19:31:00 71 /min [facility] Body temperature 2021-11-08 19:30:00 36.67 Fabienne [facility] Respiratory rate 2021-11-08 19:30:00 18 /min [facility] Body height 2021-11-08 19:30:00 175.3 cm [facility] Body weight 2021-11-08 19:30:00 154.223 kg [facility] BMI 2021-11-08 19:30:00 50.21 kg/m2 [facility] Procedures Procedure Date / Time Performing Clinician Source Performed EKG-12 LEAD 2022-08-28 03:39:[address] [facility] TROPONIN I 2022-08-28 02:17:[address] [facility] COMP. METABOLIC PANEL 2022-08-28 02:17:00 Kevin De La Cruz [facility] (83156[facility] CBC WITH DIFF 2022-08-28 02:17:[address] [facility] PROTHROMBIN TIME / INR 2022-08-28 02:17:00 Kevin De La Cruz [facility] ACTIVATED PARTIAL 2022-08-28 02:17:00 Kevin De La Cruz [facility] 2022-08-28 02:17:[address] [facility] N-TERMINAL PRO-BNP 2022-08-28 02:17:00 Kevin De La Cruz [facility] CONSENT/REFUSAL FOR 2022-08-28 02:00:50 Doctor Unassigned, No Un [facility] DIAGNOSIS AND TREATMENT Name [facility] Encounters Start End Encounter Admission Attending Care Care Encounter Source Date/Time Date/Time Type Type Clinicians Facility Department ID 2020-12-21 Emergency [facility] [id number] [facility] 2022-09-30 2022-10-09 Inpatient UR Floyd Mccarthy [facility] [id number] [facility] 22:44:00 12:36:00 65 [facility] 2022-10-07 2022-10-07 Telephone Ramsey [facility] 1.2.840.114 [id number] Univers 00:00:00 00:00:00 , [place] CHERRY 350.1.13.10 ity of Monique GOMEZ 4.2.7.2.686 Stephen as SHRADDHA?BLEA [id number] Nm alice [address] MEDICAL OFFICE BUILDING 2022-10-06 2022-10-06 Refill Ramsey MAURICIO 1.2.840.114 [id number] Univers 00:00:00 00:00:00 , [place] PEDIATRIC 350.1.13.10 ity [place] [id number] [address] [facility] 2022-09-08 2022-09-[facility] 1.2.840.114 [id number] Univers 00:00:00 00:00:00 , [place] CHERRY 350.1.13.10 ity of [place] 4.2.7.2.686 [place] as SHRADDHA?BLEA [id number] [address] OFFICE [facility] 2022-08-27 2022-08-27 Emergency X CHRIS, [facility] ERT [id number] Univers 21:01:00 23:17:00 KEVIN itmariel of [facility] 2022-08-27 2022-08-27 [facility] 1.2.250.836 [id number] Univers 21:01:00 23:17:00 Kevin GOMEZ 350.1.13.10 i ty of [place] [id number] [facility] 084 [place] 2022-08-27 2022-08-27 Nurse TONYA Rodríguez 1.2.840.114 [id number] Univers 00:00:00 00:00:00 Triage Tash ALEMAN 350.1.13.10 i ty of [facility] 4.2.7.2.686 Stephen as [id number] [facility] [address] [place] 2022-08-21 2022-08-21 Outpatient R CALLIE, [facility] [id number] Univers 16:30:00 16:30:00 DELROY ity of [facility] 2022-08-17 2022-08-17 [facility] 1.2.840.114 [id number] Univers 00:00:00 00:00:00 , [place] HEALTH 350.1.13.10 ity of [place] 4.2.7.2.686 Stephen as SHRADDHA?BLEA [id number] [address] MEDICAL OFFICE [facility] 2022-05-22 2022-05-22 Outpatient R [facility] [id number] Univers 15:45:00 15:45:00 , ESPERANZA it y of [facility] 2022-04-17 2022-04-17 [facility] 1.2.840.114 [id number] Univers 00:00:00 00:00:00 , [place] HEALTH 350.1.13.10 ity of M [place] 4.2.7.2.686 Stephen as SHRADDHA?BLEA [id number] [address] OFFICE [facility] 2022-04-14 2022-04-14 Refill [facility] 1.2.840.114 [id number] Univers 00:00:00 00:00:00 , [place] HEALTH 350.1.13.10 ity of [place] 4.2.7.2.686 Stephen as SHRADDHA?BLEA [id number] [address] MEDICAL OFFICE [facility] 2022-04-11 2022-04-11 Outpatient R [facility] [id number] Univers 15:45:00 15:45:00 , ESPERANZA it y [facility] 2022-04-06 2022-04-06 Refill [facility] 1.2.840.114 [id number] Univers 00:00:00 00:00:00 , [place] HEALTH 350.1.13.10 ity of M [place] 4.2.7.2.686 Stephen as SHRADDHA?BLEA [id number] [address] MEDICAL OFFICE [facility] 2022-03-14 2022-03-14 Outpatient R RAMSEY [facility] [id number] Univers 16:00:00 16:00:00 , ESPERANZA it y of [facility] 2022-02-25 2022-02-25 Refill Pooja Lord 1.2.840.114 [id number] Univers 00:00:00 00:00:00 Ali PEDIATRIC 350.1.13.10 ity [place] [id number] [address] 2022-01-31 2022-01-31 Refill Ramsey HYDEIN 1.2.840.114 [id number] Univers 00:00:00 00:00:00 , [place] PEDIATRIC 350.1.13.10 ity [place] [id number] [address] 2022-01-25 2022-01-25 Refill Ramsey MARTÍNEZ 1.2.840.114 [id number] Univers 00:00:00 00:00:00 , [place] PEDIATRIC 350.1.13.10 ity [place] [id number] [address] 2022-01-25 2022-01-25 Refill Ramsey HYDEIN 1.2.840.114 [id number] Univers 00:00:00 00:00:00 , [place] PEDIATRIC 350.1.13.10 ity [place] [id number] [address] 2022-01-25 2022-01-25 Refill Ramsey HYDEIN 1.2.840.114 [id number] Univers 00:00:00 00:00:00 , [place] PEDIATRIC 350.1.13.10 ity [place] [id number] [address] 2022-01-25 2022-01-25 Refill Ramsey HYDEIN 1.2.840.114 [id number] Univers 00:00:00 00:00:00 , [place] PEDIATRIC 350.1.13.10 ity of [place] [id number] [address] 2022-01-25 2022-01-25 Refill [place] MAURICIO 1.2.840.114 [id number] Univers 00:00:00 00:00:00 , [place] PEDIATRIC 350.1.13.10 ity of [place] [id number] [address] 2022-01-25 2022-01-25 Refill Ramsey MAURICIO 1.2.840.114 [id number] Univers 00:00:00 00:00:00 , [place] PEDIATRIC 350.1.13.10 ity of [place] [id number] [address] 2022-01-25 2022-01-25 Refill Ramsey MAURICIO 1.2.840.114 [id number] Univers 00:00:00 00:00:00 , [place] PEDIATRIC 350.1.13.10 ity of [place] [id number] [address] 2022-01-25 2022-01-25 Refill Ramsey MAURICIO 1.2.840.114 [id number] Univers 00:00:00 00:00:00 , [place] PEDIATRIC 350.1.13.10 ity of [place] [id number] [address] 2022-01-25 2022-01-25 Refill Ramsey MAURICIO 1.2.840.114 [id number] Univers 00:00:00 00:00:00 , [place] PEDIATRIC 350.1.13.10 ity of [place] [id number] [address] 2022-01-09 2022-01-09 Refill [place] MAURICIO 1.2.840.114 [id number] Univers 00:00:00 00:00:00 , [place] PEDIATRIC 350.1.13.10 ity of [place] [id number] [address] 2022-01-09 2022-01-09 Refmoses MARTÍNEZ 1.2.840.114 [id number] Univers 00:00:00 00:00:00 , [place] PEDIATRIC 350.1.13.10 ity of [place] [id number] [address] 2021-12-20 2021-12-20 RefPooja Saini 1.2.840.114 [id number] Univers 00:00:00 00:00:00 Ali PEDIATRIC 350.1.13.10 ity [place] [id number] [address] 2021-12-13 2021-12-13 Outpatient R RAMSEY [facility] [id number] Univers 15:15:00 15:15:00 , ESPERANZA it y of [facility] 2021-11-13 2021-11-13 Refmoses MARTÍNEZ 1.2.840.114 [id number] Univers 00:00:00 00:00:00 , [place] PEDIATRIC 350.1.13.10 ity [place] [id number] [address] 2021-11-13 2021-11-13 Refmoses MARTÍNEZ 1.2.840.114 [id number] Univers 00:00:00 00:00:00 , [place] PEDIATRIC 350.1.13.10 ity of [place] [id number] [address] 2021-11-13 2021-11-13 RefPooja Saini 1.2.840.114 [id number] Univers 00:00:00 00:00:00 Ali PEDIATRIC 350.1.13.10 ity [place] [id number] [address] 2021-11-08 2021-11-08 Outpatient R [facility] [id number] Univers 15:00:00 15:27:00 , ESPERANZA buck y [facility] 2021-11-08 2021-11-08 Office Ramsey MARTÍNEZ 1.2.840.114 [id number] Univers 15:00:00 15:27:00 Visit , [place] PEDIATRIC 350.1.13.10 ity of [place] [id number] [address] 2021-10-06 2021-10-06 Gilmar Garcia 1.2.840.114 [id number] Univers 00:00:00 00:00:00 Y PEDIATRIC 350.1.13.10 ity [place] [id number] [address] 2021-09-27 2021-09-27 Outpatient R [facility] [id number] Univers 16:15:00 16:15:00 , ESPERANZA heber y [facility] 2021-09-13 2021-09-13 Refmoses MARTÍNEZ 1.2.840.114 [id number] Univers 00:00:00 00:00:00 , [place] PEDIATRIC 350.1.13.10 ity of [place] [id number] [address] 2021-09-10 2021-09-10 Gilmar Garcia 1.2.840.114 [id number] Univers 00:00:00 00:00:00 Y PEDIATRIC 350.1.13.10 ity of [place] [id number] [address] 2021-09-05 2021-09-05 Aidee CASTANEDA 1.2.840.114 [id number] Univers 00:00:00 00:00:00 Only Unassigned, LOVE 350.1.13.10 ity of [facility] 4.2.7.2.686 Stephen as [id number] [address] 2021-08-30 2021-08-30 Outpatient R RAMSEY [facility] [id number] Univers 16:15:00 16:15:00 , ESPERANZA it y of [facility] 2021-08-30 2021-08-30 Telephone Ramsey MARTÍNEZ 1.2.840.114 [id number] Univers 00:00:00 00:00:00 , [place] PEDIATRIC 350.1.13.10 ity of [place] [id number] [address] 2021-08-24 2021-08-24 Refill Ramsey MARTÍNEZ 1.2.840.114 [id number] Univers 00:00:00 00:00:00 , [place] PEDIATRIC 350.1.13.10 ity of [place] [id number] [address] 2021-08-21 2021-08-21 Orders Doctor TONYA 1.2.840.114 [id number] Univers 00:00:00 00:00:00 Only Unassigned, LOVE 350.1.13.10 ity of [facility] 4.2.7.2.686 Stephen as [id number] [address] 2021-08-20 2021-08-20 Telephone Ramsey MARTÍNEZ 1.2.840.114 [id number] Univers 00:00:00 00:00:00 , [place] PEDIATRIC 350.1.13.10 ity of [place] [id number] [address] 2021-08-19 2021-08-19 Telephone Ramsey MARTÍNEZ 1.2.840.114 [id number] Univers 00:00:00 00:00:00 , [place] PEDIATRIC 350.1.13.10 ity of [place] [id number] [address] 2021-08-13 2021-08-13 Refill Ramsey MARTÍNEZ 1.2.840.114 [id number] Univers 00:00:00 00:00:00 , [place] PEDIATRIC 350.1.13.10 ity of [place] [id number] [address] 2021-08-07 2021-08-07 Outpatient R RAMSEY [facility] [id number] Univers 15:15:00 15:15:00 , ESPERANZA buck [facility] 2021-07-31 2021-07-31 Outpatient R STEPHANIE [facility] [id number] Univers 15:45:00 15:45:00 NIA mendiola [facility] 2021-07-29 2021-07-29 Telephone Ramsey MARTÍNEZ 1.2.840.114 [id number] Univers 00:00:00 00:00:00 , [place] PEDIATRIC 350.1.13.10 ity of [place] [id number] [address] 2021-07-24 2021-07-24 Outpatient R RAMSEY [facility] [id number] Univers 14:00:00 14:00:00 , ESPERANZA buck [facility] 2021-07-17 2021-07-17 Outpatient R RAMSEY [facility] [id number] Univers 14:00:00 14:44:14 , ESPERANZA buck [facility] 2021-07-17 2021-07-17 Office Ramsey MARTÍNEZ 1.2.840.114 [id number] Univers 14:00:00 14:44:14 Visit , [place] PEDIATRIC 350.1.13.10 ity of [place] [id number] [address] 2021-07-12 2021-07-12 Outpatient R RAMSEY [facility] [id number] Univers 15:45:00 15:45:00 , ESPERANZA buck [facility] 2021-06-26 2021-06-26 Refill [place] MAURICIO 1.2.840.114 [id number] Univers 00:00:00 00:00:00 , [place] PEDIATRIC 350.1.13.10 ity of [place] [id number] [address] 2021-06-20 2021-06-20 Telephone Ramsey MAURICIO 1.2.840.114 [id number] Univers 00:00:00 00:00:00 , [place] PEDIATRIC 350.1.13.10 ity of [place] [id number] [address] 2021-06-14 2021-06-14 Refill Ramsey MAURICIO 1.2.840.114 [id number] Univers 00:00:00 00:00:00 , [place] PEDIATRIC 350.1.13.10 ity [place] [id number] [address] 2021-06-14 2021-06-14 Refill Ramsey MAURICIO 1.2.840.114 [id number] Univers 00:00:00 00:00:00 , [place] PEDIATRIC 350.1.13.10 ity of [place] [id number] [address] 2021-04-25 2021-04-25 Refill [place] MAURICIO 1.2.840.114 [id number] Univers 00:00:00 00:00:00 , [place] PEDIATRIC 350.1.13.10 ity of [place] [id number] [address] 2021-03-22 2021-03-22 Telephone [place] MAURICIO 1.2.840.114 [id number] Univers 00:00:00 00:00:00 , [place] PEDIATRIC 350.1.13.10 ity of [place] [id number] [place] [address] [address] [facility] 2021-03-20 2021-03-20 Telephone Ramsey MARTÍNEZ 1.2.840.114 [id number] Univers 00:00:00 00:00:00 , [place] PEDIATRIC 350.1.13.10 ity of [place] [id number] [address] 2021-03-05 2021-03-05 Patient MAURICIO Knapp 1.2.333.306 [id number] Univers 00:00:00 00:00:00 Secure Msg Reagansey PEDIATRIC 350.1.13.10 ity of [place] [id number] [address] 2021-02-19 2021-02-19 Telephone Ramsey MARTÍNEZ 1.2.840.114 [id number] Univers 00:00:00 00:00:00 , [place] PEDIATRIC 350.1.13.10 ity of [place] [id number] [address] 2021-02-06 2021-02-06 Refill Tawny [facility] 1.2.840.114 [id number] Univers 00:00:00 00:00:00 Olena Amaya PRIMARY 350.1.13.10 ity of [place]2.[place] [id number] [address] 2021-02-06 2021-02-06 Telephone Ramsey MARTÍNEZ 1.2.840.114 [id number] Univers 00:00:00 00:00:00 , [place] PEDIATRIC 350.1.13.10 ity of [place] [id number] [address] 2021-02-01 2021-02-01 Outpatient R RAMSEY [facility] [id number] Univers 15:45:00 15:45:00 , ESPERANZA buck y of [facility] 2021-01-31 2021-01-31 Refill Ramsey MARTÍNEZ 1.2.840.114 [id number] Univers 00:00:00 00:00:00 , [place] PEDIATRIC 350.1.13.10 ity of [place] [id number] [address] 2021-01-29 2021-01-29 Refill Ramsey HYDEIN 1.2.840.114 [id number] Univers 00:00:00 00:00:00 , [place] PEDIATRIC 350.1.13.10 ity of [place] [id number] [address] 2021-01-28 2021-01-28 Refill [place] MAURICIO 1.2.840.114 [id number] Univers 00:00:00 00:00:00 , [place] PEDIATRIC 350.1.13.10 ity of [place] [id number] [address] 2021-01-26 2021-01-26 Refill Tawny, [facility] 1.2.807.626 [id number] Univers 00:00:00 00:00:00 Olena Amaya HEALTH 350.1.13.10 ity of CL[place] [id number] [address] 2021-01-25 2021-01-25 Refill Ramsey MARTÍNEZ 1.2.840.114 [id number] Univers 00:00:00 00:00:00 , [place] PEDIATRIC 350.1.13.10 ity of [place] [id number] [address] 2020-12-11 2020-12-11 Outpatient R ROSHAN [facility] [id number] Univers 15:00:00 15:00:00 WILDER [facility] 2020-11-28 2020-11-28 Outpatient R DARSHANA [facility] [id number] Univers 14:00:00 14:00:00 KYLEIGH [facility] 2020-11-26 2020-11-26 Outpatient R LAYO [facility] [id number] Univers 14:00:00 14:00:00 DOUGLAS mendiola [facility] 2020-11-22 2020-11-22 Office Leda [facility] 1.2.840.114 [id number] Univers 13:15:00 13:30:00 Visit Avelino Keila 350.1.13.10 i ty of [place] [id number] Nm dic[address] 2020-11-22 2020-11-22 Outpatient R LEDA [facility] [id number] Univers 13:15:00 13:15:00 AVELINO mendiola [facility] 2020-11-22 2020-11-22 Telephone Ramsey Martínez 1.2.840.114 [id number] Univers 00:00:00 00:00:00 , [place] Pediatric 350.1.13.10 [place] [id number] [address] 2020-11-22 2020-11-22 Telephone Ramsey Martínez 1.2.840.114 [id number] [facility] 00:00:00 00:00:00 , [facility] 350.1.13.10 [place] [id number] [address] 2020-11-21 2020-11-21 Office Ramsey Martínez 1.2.840.114 [id number] [facility] 15:19:28 15:49:28 Visit , [facility] 350.1.13.10 [place] [phone] [address] 2020-11-21 2020-11-21 Outpatient Kecia MUSTAFA [facility] [id number] Univers 15:45:00 15:45:00 , ESPERANZA floyd [facility] 2020-11-12 2020-11-12 Outpatient R KELSI [facility] [id number] Univers 14:30:00 14:30:00 BILAL ity of [facility] 2020-11-12 2020-11-12 Patient Mauricio Ray 1.2.840.114 [id number] Univers 00:00:00 00:00:00 Outreach [facility] 350.1.13.10 [place]y [place] [phone] [address] 2020-11-12 2020-11-12 Patient Mauricio Ray 1.2.840.114 [id number] Univers 00:00:00 00:00:00 Outreach [facility] 350.1.13.10 [place] [id number] [address] 2020-11-12 2020-11-12 Patient Mauricio Ray 1.2.840.114 [id number] Univers 00:00:00 00:00:00 Outreach [facility] 350.1.13.10 [place] [id number] [address] 2020-11-08 2020-11-08 Patient Ramsey Martínez 1.2.840.114 [id number] Univers 00:00:00 00:00:00 Outreach [facility] 350.1.13.10 [place] [phone] [address] 2020-11-07 2020-11-07 Imm/Inj Vaccine, Mauricio Family Mauricio 1.2. 840.114 [id number] Univers 16:00:44 16:10:44 Visit [facility] 350 .1.13.10 ity of [place] [id number] [address] 2020-11-07 2020-11-07 Office Ramsey Martínez 1.2.840.114 [id number] Univers 14:35:43 16:09:41 Visit [facility] 350.1.13.10 ity of [place] [id number] [facility] Primary [address] [facility] 2020-11-07 2020-11-07 Office Ramsey Martínez 1.2.840.114 [id number] Univers 14:35:43 16:09:41 Visit , [facility] 350.1.13.10 ity of [place] [id number] [facility] 2020-11-07 2020-11-07 Outpatient R RAMSEY [facility] 002 [id number] Univers 15:15:00 15:15:00 , ESPERANZA floyd [facility] 2020-11-07 2020-11-07 Orders Ramsey CASTANEDA 1.2.840.114 [id number] Univers 00:00:00 00:00:00 Only , Esperanza ALEMAN 350.1.13.10 ity of [facility] 4.2.7.2.686 Stephen as [id number] [facility] [address] 2020-10-31 2020-10-31 Outpatient R DEANNE [facility] [id number] Univers 16:00:00 16:00:00 KT mendiola [facility] 2020-10-25 2020-10-25 Refmoses [facility] 1.2.840.114 [id number] Univers 00:00:00 00:00:00 Olena Amaya PRIMARY 350.1.13.10 [place] [id number] [facility] [address] 2020-10-22 2020-10-22 Refmoses Gonzalez, UNIVERSIT [id number] Univers 00:00:00 00:00:00 Olena Amaya [facility] 350.1.13.10 ity of CLINICS [place] [id number] [facility] [address] 2020-10-11 2020-10-11 Outpatient R CALLIE [facility] [id number] Univers 13:00:00 13:00:00 DELROY mendiola [facility] 2020-10-01 2020-10-01 Outpatient Kecia PAREDES [facility] [id number] Univers 19:00:00 19:00:00 DIONNA cheatham [facility] 2020-06-16 2020-06-16 [facility] 1.2.840.114 [id number] 00:00:00 00:00:00 Olena Amaya PRIMARY 350.1.13.10 CARE 4.2.7.2.686 PAVILLION [id number] 390 2020-06-13 2020-06-13 Refill [facility], UNIVERSIT [id number] 00:00:00 00:00:00 Olena Floyd HEALTH 350.1.13.10 CLINICS 4.2.7.2.686 [id number] 2020-06-12 2020-06-12 Refill [place]ac, UNIVERSIT 1.2.081.552 [id number] 00:00:00 00:00:00 Olena Floyd HEALTH 350.1.13.10 CLINICS 4.2.7.2.686 [id number] 076 2020-06-03 2020-06-03 [facility], [facility] [id number] 00:00:00 00:00:00 Olena Floyd HEALTH 350.1.13.10 CLINICS 4.2.7.2.686 [id number] 076 2020-05-11 2020-05-11 [facility] 1.2.840.114 [id number] 00:00:00 00:00:00 Olena Amaya PRIMARY 350.1.13.10 CARE 4.2.7.2.686 PAVILLION [id number] 390 2020-04-19 2020-04-19 Outpatient Kecia ROMERO [facility] [id number] Univers 15:30:00 15:30:00 ABDULAZIZ [facility] 2020-04-13 2020-04-13 Outpatient Kecia ROMERO [facility] [id number] Univers 15:40:00 15:40:00 ABDULAZIZ [facility] 2020-04-10 2020-04-10 [facility] 1.2.840.114 [id number] 00:00:00 00:00:00 Olena Amaya PRIMARY 350.1.13.10 CARE 4.2.7.2.686 PAVILLION [id number] 390 2020-03-28 2020-03-28 [facility] 1.2.840.114 [id number] 00:00:00 00:00:00 Olena Amaya PRIMARY 350.1.13.10 CARE 4.2.7.2.686 PAVILLION [id number] 390 2020-03-27 2020-03-27 [facility] 1.2.840.114 [id number] 00:00:00 00:00:00 Olena Amaya PRIMARY 350.1.13.10 CARE 4.2.7.2.686 PAVILLION [id number] 390 2020-03-25 2020-03-25 [facility] 1.2.840.114 [id number] 00:00:00 00:00:00 Avelino Gomez 350.1.13.10 [place] 4.2.7.2.686 Professio [id number] [address] 2020-03-21 2020-03-21 Outpatient Kecia VOGEL [facility] [id number] Univers 15:30:00 15:30:00 KIMBER [facility] 2019-10-18 2019-10-18 [facility] [id number] Univers 09:15:00 09:15:00 OLENA mendiola [facility] 2019-06-07 2019-06-07 Outpatient R TAWNY [facility] [id number] Univers 11:15:00 11:15:00 OLENA mendiola [facility] 2019-05-27 2019-05-29 Outpatient Raquel YODER [facility] [id number] Univers 14:59:30 14:00:00 BALJIT [facility] 2019-05-27 2019-05-27 Outpatient R PETR [facility] [id number] Univers 09:30:00 09:30:00 General acute hospital 2019-05-20 2019-05-20 Outpatient R LEDA [facility] [id number] Univers 09:00:00 10:44:50 [facility] 2019-05-20 2019-05-20 Outpatient R LEDA [facility] [id number] Univers 09:00:00 09:00:00 [facility] 2019-04-22 2019-04-22 Outpatient R LEDA [facility] [id number] Univers 16:15:00 16:15:00 [facility] 2019-04-22 2019-04-22 Outpatient R PETR [facility] [id number] Univers 15:00:00 15:00:00 General acute hospital 2019-04-15 2019-04-15 Outpatient R LEDA [facility] [id number] Univers 13:30:00 13:55:57 [facility] Results Test Description Test Time Test Comments Results Result Comments Source GLUCOSE BEDSIDE 2022-10-09 12:30:00 Test Item Value Reference Range Interpretation Comme nts GLUCOSE BEDSIDE (test code = 309 MG/DL 70-110 H Performed by certified 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 [facility]) [facility] GLUCOSE [id number] 06:16:00 Test Item Value Reference Range Interpretation Comments GLUCOSE BEDSIDE (test 203 MG/DL 70-110 H [facility] by certified code = GLUBED) 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 BASIC METABOLIC [id number] 02:55:00 Test Item Value Reference Range Interpretation Comments SODIUM (test code = 137 mEq/L 134-147 N NA) POTASSIUM (test code 4.2 mEq/L 3.4-5.0 N = K) CHLORIDE (test code 104 mEq/L 100-108 N = CL) CARBON DIOXIDE (test 27 mEq/l 21-33 N code = CO2) ANION GAP (test code 10 0-20 N = GAP) GLUCOSE (test code = 277 mg/dL 70-110 H GLU) BLOOD UREA NITROGEN 25 mg/dL 7-18 H (test code = BUN) GLOMERULAR 32.9 70-80 L The Glomerular FILTRATION RATE Filtration R ate is a (test code = GFR) calculated parameterbased on serum Creatinine, pat ient age and sex. GFR va luesless than 60 mL/min/ 1.73 square meters a re indicative ofCh ronic Kidney Disease. Values less than 15 mL/min/1.73squa re meters indicate Kidney failure. The calculation forGFR is based on the CKD-EPI (2020) calculat ion. This formulais race indifferent and is the recommended for zoie for GFRby the [facility] on for Adults.The GFR will not calculate if th e sex is unknown or if thepatient's ag e is <18 years. CREATININE (test 2.0 mg/dL 0.6-1.3 H code = CREAT) CALCIUM (test code = 8.9 mg/dL 8.0-10.5 N CA) GLUCOSE [id number] 00:32:00 Test Item Value Reference Range Interpretation Comments GLUCOSE BEDSIDE (test 237 MG/DL 70-110 H Perfor med by certified code = GLUBED) 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 [facility] GLUCOSE [id number] 20:43:00 Test Item Value Reference Range Interpretation Comments GLUCOSE BEDSIDE (test 230 MG/DL 70-110 H Perfor med by certified code = GLUBED) 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 [facility] GLUCOSE [id number] 17:42:00 Test Item Value Reference Range Interpretation Comments GLUCOSE BEDSIDE (test 197 MG/DL 70-110 H Perfor med by certified code = GLUBED) 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 [facility] GLUCOSE [id number] 13:00:00 Test Item Value Reference Range Interpretation Comments GLUCOSE BEDSIDE (test 255 MG/DL 70-110 H Perfor med by certified code = GLUBED) 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 [facility] GLUCOSE [id number] 08:28:00 Test Item Value Reference Range Interpretation Comments GLUCOSE BEDSIDE (test 197 MG/DL 70-110 H Perfor med by certified code = GLUBED) 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 [facility] GLUCOSE [id number] 06:07:00 Test Item Value Reference Range Interpretation Comments GLUCOSE BEDSIDE (test 142 MG/DL 70-110 H Perfor med by certified code = GLUBED) 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 [facility] BASIC METABOLIC [id number] 05:09:00 Test Item Value Reference Range Interpretation Comments SODIUM (test code = 139 mEq/L 134-147 N NA) POTASSIUM (test code 4.5 mEq/L 3.4-5.0 N = K) CHLORIDE (test code 105 mEq/L 100-108 N = CL) CARBON DIOXIDE (test 28 mEq/l 21-33 N code = CO2) ANION GAP (test code 10 0-20 N = GAP) GLUCOSE (test code = 164 mg/dL 70-110 H GLU) BLOOD UREA NITROGEN 23 mg/dL 7-18 H (test code = BUN) GLOMERULAR 40.0 70-80 L The Glomerular FILTRATION RATE Filtration R ate is a (test code = GFR) calculated parameterbased on serum Creatinine, pat ient age and sex. GFR va luesless than 60 mL/min/ 1.73 square meters a re indicative ofCh ronic Kidney Disease. Values less than 15 mL/min/1.73squa re meters indicate Kidney failure. The calculation forGFR is based on the CKD-EPI (2020) calculat ion. This formulais race indifferent and is the recommended for zoie for GFRby the [facility] n[facility] on for Adults.The GFR will not calculate if th e sex is unknown or if thepatient's ag e is <18 years. CREATININE (test 1.7 mg/dL 0.6-1.3 H code = CREAT) CALCIUM (test code = 9.0 mg/dL 8.0-10.5 N CA) [id number] 05:09:00 Test Item Value Reference Range Interpretation Comments PHOSPHOROUS (test code = PHOS) 3.3 MG/DL 2.5-4.9 N [id number] 05:09:00 Test Item Value Reference Range Interpretation Comments MAGNESIUM (test code = MAG) 1.94 mg/dL 1.80-2.40 N CALCIUM [id number] 05:09:00 Test Item Value Reference Range Interpretation Comments CALCIUM IONIZED (test code = PANKAJ) 1.17 MMOL/L 1.09-1.30 N CBC W/AUTO [id number] 04:43:00 Test Item Value Reference Range Interpretation Comments WHITE BLOOD CELL (test code = 7.7 x10 3/uL 4.5-11.0 N WBC) RED BLOOD CELL (test code = 3.88 x10 6/uL 4.00-5.60 L RBC) HEMOGLOBIN (test code = HGB) 11.5 g/dL 12.5-16.9 L HEMATOCRIT (test code = HCT) 35.4 % 37.5-50.7 L MEAN CELL VOLUME (test code = 91.2 fL 81.0-99.0 N MCV) MEAN CELL HGB (test code = MCH) 29.6 pg 27.0-33.0 N MEAN CELL HGB CONCETRATION 32.5 g/dL 33.0-37.0 L (test code = MCHC) RED CELL DISTRIBUTION WIDTH CV 15.9 % 11.5-14.5 H (test code = RDW) RED CELL DISTRIBUTION WIDTH SD 51.5 fL 37.0-54.0 N (test code = RDW-SD) PLATELET COUNT (test code = 175 x10 3/uL 150-400 N PLT) MEAN PLATELET VOLUME (test code 10.6 fL 7.0-9.0 H = MPV) NEUTROPHIL % (test code = NT%) 67.5 % 56.0-77.0 N IMMATURE GRANULOCYTE % (test 0.5 % 0.0-2.0 N code = IG%) LYMPHOCYTE % (test code = LY%) 15.0 % 14.0-32.0 N MONOCYTE % (test code = MO%) 11.6 % 4.8-9.0 H EOSINOPHIL % (test code = EO%) 4.7 % 0.3-3.7 H BASOPHIL % (test code = BA%) 0.7 % 0.0-2.0 N NUCLEATED RBC % (test code = 0.0 % 0-0 N NRBC%) NEUTROPHIL # (test code = NT#) 5.16 x10 3/uL 2.0-7.6 N IMMATURE GRANULOCYTE # (test 0.04 x10 3/uL 0.00-0.03 H code = IG#) LYMPHOCYTE # (test code = LY#) 1.15 x10 3/uL 1.0-3.8 N MONOCYTE # (test code = MO#) 0.89 x10 3/uL 0.1-0.8 H EOSINOPHIL # (test code = EO#) 0.36 x10 3/uL 0.0-0.2 H BASOPHIL # (test code = BA#) 0.05 x10 3/uL 0.0-0.2 N NUCLEATED RBC # (test code = 0.00 x10 3/uL 0.0-0.1 N NRBC#) MANUAL DIFF REQUIRED (test code NO = MDIFF) COMMENTS: Daily while on HeparinGLUCOSE [id number] 23:32:00 Test Item Value Reference Range Interpretation Comments GLUCOSE BEDSIDE (test 325 MG/DL 70-110 H Perfor med by certified code = GLUBED) 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 [facility] GLUCOSE [id number] 18:09:00 Test Item Value Reference Range Interpretation Comments GLUCOSE BEDSIDE (test 241 MG/DL 70-110 H Perfor med by certified code = GLUBED) 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 [facility] GLUCOSE [id number] 15:15:00 Test Item Value Reference Range Interpretation Comments GLUCOSE BEDSIDE (test 196 MG/DL 70-110 H Perfor med by certified code = GLUBED) 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 [facility] [id number] 14:20:00 Test Item Value Reference Range Interpretation Comments ACT-ISTAT (test code 299 SEC 74-137 H Perform ed by certified = ACTI) 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 [place] [id number] 14:01:00 Test Item Value Reference Range Interpretation Comments ACT-ISTAT (test code 311 SEC 74-137 H Perform ed by certified = ACTI) 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 [facility] [id number] 13:26:00 Test Item Value Reference Range Interpretation Comments ACT-ISTAT (test code 287 SEC 74-137 H Perform ed by certified = ACTI) 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 [facility] GLUCOSE [id number] 11:05:00 Test Item Value Reference Range Interpretation Comments GLUCOSE BEDSIDE (test 198 MG/DL 70-110 H Perfor med by certified code = GLUBED) 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 [facility] GLUCOSE [id number] 08:45:00 Test Item Value Reference Range Interpretation Comments GLUCOSE BEDSIDE (test 203 MG/DL 70-110 H Perfor med by certified code = GLUBED) 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 [facility] CBC W/AUTO [id number] 07:54:00 Test Item Value Reference Range Interpretation Comments WHITE BLOOD CELL (test code = 8.0 x10 3/uL 4.5-11.0 N WBC) RED BLOOD CELL (test code = 4.01 x10 6/uL 4.00-5.60 N RBC) HEMOGLOBIN (test code = HGB) 11.8 g/dL 12.5-16.9 L HEMATOCRIT (test code = HCT) 36.7 % 37.5-50.7 L MEAN CELL VOLUME (test code = 91.5 fL 81.0-99.0 N MCV) MEAN CELL HGB (test code = MCH) 29.4 pg 27.0-33.0 N MEAN CELL HGB CONCETRATION 32.2 g/dL 33.0-37.0 L (test code = MCHC) RED CELL DISTRIBUTION WIDTH CV 15.9 % 11.5-14.5 H (test code = RDW) RED CELL DISTRIBUTION WIDTH SD 51.0 fL 37.0-54.0 N (test code = RDW-SD) PLATELET COUNT (test code = 163 x10 3/uL 150-400 N PLT) MEAN PLATELET VOLUME (test code 10.8 fL 7.0-9.0 H = MPV) NEUTROPHIL % (test code = NT%) 64.5 % 56.0-77.0 N IMMATURE GRANULOCYTE % (test 0.5 % 0.0-2.0 N code = IG%) LYMPHOCYTE % (test code = LY%) 20.0 % 14.0-32.0 N MONOCYTE % (test code = MO%) 9.5 % 4.8-9.0 H EOSINOPHIL % (test code = EO%) 4.9 % 0.3-3.7 H BASOPHIL % (test code = BA%) 0.6 % 0.0-2.0 N NUCLEATED RBC % (test code = 0.0 % 0-0 N NRBC%) NEUTROPHIL # (test code = NT#) 5.13 x10 3/uL 2.0-7.6 N IMMATURE GRANULOCYTE # (test 0.04 x10 3/uL 0.00-0.03 H code = IG#) LYMPHOCYTE # (test code = LY#) 1.59 x10 3/uL 1.0-3.8 N MONOCYTE # (test code = MO#) 0.76 x10 3/uL 0.1-0.8 N EOSINOPHIL # (test code = EO#) 0.39 x10 3/uL 0.0-0.2 H BASOPHIL # (test code = BA#) 0.05 x10 3/uL 0.0-0.2 N NUCLEATED RBC # (test code = 0.00 x10 3/uL 0.0-0.1 N NRBC#) MANUAL DIFF REQUIRED (test code NO = MDIFF) COMMENTS: Daily while on HeparinBASIC METABOLIC [id number] 07:20:00 Test Item Value Reference Range Interpretation Comments SODIUM (test code = 137 mEq/L 134-147 N NA) POTASSIUM (test code 4.2 mEq/L 3.4-5.0 N = K) CHLORIDE (test code 102 mEq/L 100-108 N = CL) CARBON DIOXIDE (test 26 mEq/l 21-33 N code = CO2) ANION GAP (test code 13 0-20 N = GAP) GLUCOSE (test code = 223 mg/dL 70-110 H GLU) BLOOD UREA NITROGEN 24 mg/dL 7-18 H (test code = BUN) GLOMERULAR 32.9 70-80 L The Glomerular FILTRATION RATE Filtration R ate is a (test code = GFR) calculated parameterbased on serum Creatinine, pat ient age and sex. GFR va luesless than 60 mL/min/ 1.73 square meters a re indicative ofCh ronic Kidney Disease. Values less than 15 mL/min/1.73squa re meters indicate Kidney failure. The calculation forGFR is based on the CKD-EPI (2020) calculat ion. This formulais race indifferent and is the recommended for zoie for GFRby the [facility] on for Adults.The GFR will not calculate if th e sex is unknown or if thepatient's ag e is <18 years. CREATININE (test 2.0 mg/dL 0.6-1.3 H code = CREAT) CALCIUM (test code = 9.2 mg/dL 8.0-10.5 N CA) GLUCOSE [id number] 04:30:00 Test Item Value Reference Range Interpretation Comments GLUCOSE BEDSIDE (test 231 MG/DL 70-110 H Perfor med by certified code = GLUBED) 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 GLUCOSE [id number] 20:46:00 Test Item Value Reference Range Interpretation Comments GLUCOSE BEDSIDE (test 204 MG/DL 70-110 H Perfor med by certified code = GLUBED) 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 GLUCOSE [id number] 19:59:00 Test Item Value Reference Range Interpretation Comments GLUCOSE BEDSIDE (test 183 MG/DL 70-110 H Perfor med by certified code = GLUBED) 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 [facility] GLUCOSE [id number] 18:10:00 Test Item Value Reference Range Interpretation Comments GLUCOSE BEDSIDE (test 117 MG/DL 70-110 H Perfor med by certified code = GLUBED) 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 [facility] GLUCOSE [id number] 12:21:00 Test Item Value Reference Range Interpretation Comments GLUCOSE BEDSIDE (test 249 MG/DL 70-110 H Perfor med by certified code = GLUBED) 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 [facility] BASIC METABOLIC [id number] 08:02:00 Test Item Value Reference Range Interpretation Comments SODIUM (test code = 137 mEq/L 134-147 N NA) POTASSIUM (test code 4.2 mEq/L 3.4-5.0 N = K) CHLORIDE (test code 103 mEq/L 100-108 N = CL) CARBON DIOXIDE (test 26 mEq/l 21-33 N code = CO2) ANION GAP (test code 12 0-20 N = GAP) GLUCOSE (test code = 185 mg/dL 70-110 H GLU) BLOOD UREA NITROGEN 25 mg/dL 7-18 H (test code = BUN) GLOMERULAR 37.4 70-80 L The Glomerular FILTRATION RATE Filtration R ate is a (test code = GFR) calculated parameterbased on serum Creatinine, pat ient age and sex. GFR va luesless than 60 mL/min/ 1.73 square meters a re indicative ofCh ronic Kidney Disease. Values less than 15 mL/min/1.73squa re meters indicate Kidney failure. The calculation forGFR is based on the CKD-EPI (2020) calculat ion. This formulais race indifferent and is the recommended for ozie for GFRby the [facility] on for Adults.The GFR will not calculate if th e sex is unknown or if thepatient's ag e is <18 years. 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 CBC W/AUTO [id number] 07:19:00 Test Item Value Reference Range Interpretation Comments WHITE BLOOD CELL (test code = 8.2 x10 3/uL 4.5-11.0 N WBC) RED BLOOD CELL (test code = 3.92 x10 6/uL 4.00-5.60 L RBC) HEMOGLOBIN (test code = HGB) 11.5 g/dL 12.5-16.9 L HEMATOCRIT (test code = HCT) 35.5 % 37.5-50.7 L MEAN CELL VOLUME (test code = 90.6 fL 81.0-99.0 N MCV) MEAN CELL HGB (test code = MCH) 29.3 pg 27.0-33.0 N MEAN CELL HGB CONCETRATION 32.4 g/dL 33.0-37.0 L (test code = MCHC) RED CELL DISTRIBUTION WIDTH CV 15.9 % 11.5-14.5 H (test code = RDW) RED CELL DISTRIBUTION WIDTH SD 49.5 fL 37.0-54.0 N (test code = RDW-SD) PLATELET COUNT (test code = 155 x10 3/uL 150-400 N PLT) MEAN PLATELET VOLUME (test code 10.8 fL 7.0-9.0 H = MPV) NEUTROPHIL % (test code = NT%) 64.7 % 56.0-77.0 N IMMATURE GRANULOCYTE % (test 0.5 % 0.0-2.0 N code = IG%) LYMPHOCYTE % (test code = LY%) 19.5 % 14.0-32.0 N MONOCYTE % (test code = MO%) 9.1 % 4.8-9.0 H EOSINOPHIL % (test code = EO%) 5.5 % 0.3-3.7 H BASOPHIL % (test code = BA%) 0.7 % 0.0-2.0 N NUCLEATED RBC % (test code = 0.0 % 0-0 N NRBC%) NEUTROPHIL # (test code = NT#) 5.27 x10 3/uL 2.0-7.6 N IMMATURE GRANULOCYTE # (test 0.04 x10 3/uL 0.00-0.03 H code = IG#) LYMPHOCYTE # (test code = LY#) 1.59 x10 3/uL 1.0-3.8 N MONOCYTE # (test code = MO#) 0.74 x10 3/uL 0.1-0.8 N EOSINOPHIL # (test code = EO#) 0.45 x10 3/uL 0.0-0.2 H BASOPHIL # (test code = BA#) 0.06 x10 3/uL 0.0-0.2 N NUCLEATED RBC # (test code = 0.00 x10 3/uL 0.0-0.1 N NRBC#) MANUAL DIFF REQUIRED (test code NO = MDIFF) COMMENTS: Daily while on HeparinPROTHROMBIN [id number] 07:06:00 Test Item Value Reference Range Interpretation Comments PROTHROMBIN TIME 12.4 SECONDS 9.3-12.9 N PATIENT (test code = PTP) INTERNATIONAL NORMAL 1.1 0.8-1.2 N TARGET INR BY RATIO (test code = INDICATIO N Indication INR) INR1. Prophylax is of venous thrombos is 2.0 - 3.0 (orthoped ic surgery), Proph ylaxis of venous throm bosis (other than hig h-risk surgery), Treat ment of Deep Vein Thrombosis/Pulm onary Embolism, Preve ntion of systemic emb olism - Tissue heart va lves, Acute Myocardia l Infarction (to prevent systemic emboli sm), Valvular heart disease, Atrial Fibrillation, Bileaflet mecha nical valve in aortic position.2. Mec hanical prosthetic valv es (high risk), 2. 5 - 3.5 Presence of Lup us Anticoagulant o r Antiphospholipi d Antibodies, Pre vention of systemic emb olism - Acute Myocardia l Infarction (to prevent recurrent infar ct). 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 - XR CHEST 1 [id number] 00:00:00 [facility] : 1940 Sex: M FAX: Henrique Escoto [phone] [place]: St: ADM FAX: Floyd Lyn MD [phone] FAX: Kathya Sorensen [phone] Name: ERIKA BROWN [facility] : 1940 Age/S: 82/M [address] [place] [address] Blvd Unit #: [id number] Loc: G.4408 [place] [address] Phys: Kathya Sorensen AGACNP Acct: [id number] Dis Date:Status: ADM IN PHONE #: [phone] Exam Date: 10/06/2022 0744 FAX #: [phone] Reason: CHF EXAMS: CPT CODE: [id number] XR CHEST 1 V 16914 PROCEDURE INFORMATION: Exam: XR Chest Exam date and time: 10/06/2022 7:29 AM Age: 82 years old Clinical indication: Other: Chf TECHNIQUE: Imaging protocol: Radiologic exam of the chest. Views: 1 view. COMPARISON: CT CHEST W/O CONTRAST 10/01/2022 11:39 AM FINDINGS: Lungs: Normal lung volumes. No consolidation. Pleural spaces: Unremarkable. No pleural effusion. Nopneumothorax. Heart/Mediastinum: The cardiac silhouette is upper limits of normal in size. Bones/joints: Unremarkable. IMPRESSION: No acute cardiopulmonary findings. at 0903 Reported and signed by: John Paul Giordano M.D. 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 [facility] GLUCOSE [id number] 16:35:00 Test Item Value Reference Range Interpretation Comments GLUCOSE BEDSIDE (test 269 MG/DL 70-110 H Perfor med by certified code = GLUBED) 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 [facility] BASIC METABOLIC [id number] 13:06:00 Test Item Value Reference Range Interpretation Comments SODIUM (test code = 135 mEq/L 134-147 N NA) POTASSIUM (test code 5.0 mEq/L 3.4-5.0 N = K) CHLORIDE (test code 101 mEq/L 100-108 N = CL) CARBON DIOXIDE (test 27 mEq/l 21-33 N code = CO2) ANION GAP (test code 12 0-20 N = GAP) GLUCOSE (test code = 280 mg/dL 70-110 H GLU) BLOOD UREA NITROGEN 26 mg/dL 7-18 H (test code = BUN) GLOMERULAR 35.0 70-80 L The Glomerular FILTRATION RATE Filtration R ate is a (test code = GFR) calculated parameterbased on serum Creatinine, pat ient age and sex. GFR v aluesless than 60 mL/min/ 1.73 square meters a re indicative ofCh ronic Kidney Disease. Values less than 15 mL/min/1.73squa re meters indicate Kidney failure. The calculation forGFR is based on the CKD-EPI (2020) calculat ion. This formulais race indifferent and is the recommended for zoie for GFRby the [facility] on for Adults.The GFR will not calculate if th e sex is unknown or if thepatient's ag e is <18 years. CREATININE (test 1.9 mg/dL 0.6-1.3 H code = CREAT) CALCIUM (test code = 9.4 mg/dL 8.0-10.5 N CA) CBC W/AUTO [id number] 12:35:00 Test Item Value Reference Range Interpretation Comments WHITE BLOOD CELL (test code = 7.8 x10 3/uL 4.5-11.0 N WBC) RED BLOOD CELL (test code = 4.20 x10 6/uL 4.00-5.60 N RBC) HEMOGLOBIN (test code = HGB) 12.2 g/dL 12.5-16.9 L HEMATOCRIT (test code = HCT) 38.1 % 37.5-50.7 N MEAN CELL VOLUME (test code = 90.7 fL 81.0-99.0 N MCV) MEAN CELL HGB (test code = MCH) 29.0 pg 27.0-33.0 N MEAN CELL HGB CONCETRATION 32.0 g/dL 33.0-37.0 L (test code = MCHC) RED CELL DISTRIBUTION WIDTH CV 15.9 % 11.5-14.5 H (test code = RDW) RED CELL DISTRIBUTION WIDTH SD 49.9 fL 37.0-54.0 N (test code = RDW-SD) PLATELET COUNT (test code = 162 x10 3/uL 150-400 N PLT) MEAN PLATELET VOLUME (test code 10.6 fL 7.0-9.0 H = MPV) NEUTROPHIL % (test code = NT%) 66.4 % 56.0-77.0 N IMMATURE GRANULOCYTE % (test 0.5 % 0.0-2.0 N code = IG%) LYMPHOCYTE % (test code = LY%) 18.6 % 14.0-32.0 N MONOCYTE % (test code = MO%) 8.2 % 4.8-9.0 N EOSINOPHIL % (test code = EO%) 5.8 % 0.3-3.7 H BASOPHIL % (test code = BA%) 0.5 % 0.0-2.0 N NUCLEATED RBC % (test code = 0.0 % 0-0 N NRBC%) NEUTROPHIL # (test code = NT#) 5.16 x10 3/uL 2.0-7.6 N IMMATURE GRANULOCYTE # (test 0.04 x10 3/uL 0.00-0.03 H code = IG#) LYMPHOCYTE # (test code = LY#) 1.45 x10 3/uL 1.0-3.8 N MONOCYTE # (test code = MO#) 0.64 x10 3/uL 0.1-0.8 N EOSINOPHIL # (test code = EO#) 0.45 x10 3/uL 0.0-0.2 H BASOPHIL # (test code = BA#) 0.04 x10 3/uL 0.0-0.2 N NUCLEATED RBC # (test code = 0.00 x10 3/uL 0.0-0.1 N NRBC#) MANUAL DIFF REQUIRED (test code NO = MDIFF) COMMENTS: Daily while on HeparinGLUCOSE [id number] 12:21:00 Test Item Value Reference Range Interpretation Comments GLUCOSE BEDSIDE (test 282 MG/DL 70-110 H Perfor med by certified code = GLUBED) 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 - DUP VEIN [id number] 00:00:00 [facility]: ERIKA BROWN : 1940 Sex: M Name: ERIKA BROWN [facility] [place] : 1940 Age/S: 82 / M [address] [place] [address] Blvd Unit #: [id number] Loc: [place] [address] Phys: Heena Ramirez DO Acct: [id number] Dis Date: Status: ADM IN PHONE #: [phone] Exam Date: 10/05/2022 1448 FAX #: [phone] Reason: hematoma RLE EXAMS: CPT CODE: [id number] DUP VEIN DAMIAN [id number] PROCEDURE INFORMATION: Exam: US Duplex Lower Extremity Veins, Bilateral Examdate and time: 10/05/2022 11:18 AM Age: 82 years old Clinical indication: Screening exam; Hematoma rle TECHNIQUE: Imaging protocol: Real-time duplex ultrasound of the bilateral extremities with 2-D grayscale, color Doppler flow and spectral waveform analysis including responses to compression and other maneuvers (when performed) with image documentation. Complete exam focused on the lower extremity veins. COMPARISON: US DUP VEIN DAMIAN 10/01/2022 11:58 AM FINDINGS: Right deep veins: Unremarkable. The common femoral, femoral, proximal profunda femoral and popliteal veins are patent without thrombus. Normal Doppler waveforms. Normal compressibility and/or augmentation response. Left deep veins: Unremarkab le. The common femoral, femoral, proximal profunda femoral and popliteal veins are patent without thrombus. Normal Doppler waveforms. Normal compressibility and/or augmentation response. Superficial veins: Bilateral saphenofemoral junctions are patent without thrombus. Soft tissues: Area of concern in the right mid calf corresponds to a heterogeneous hypoechoic area measuring 5.7 x 1.2 x 4.6 cm; no internal vascular flow or peripheral hyperemia. IMPRESSION: No evidence of deep vein thrombosis. Areaof concern in the right mid calf corresponds to a heterogeneous hypoechoic area measuring 5.7 x 1.2 x 4.6 cm; no internal vascular flow or peripheral hyperemia. Likely represents a hematoma. at 1543 Reported and signed by: Adam Neves M.D. 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 [facility] GLUCOSE [id number] 17:38:00 Test Item Value Reference Range Interpretation Comments GLUCOSE BEDSIDE (test 165 MG/DL 70-110 H Perfor med by certified code = GLUBED) 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0 N MCV) MEAN CELL HGB (test code = MCH) 29.2 pg 27.0-33.0 N MEAN CELL HGB CONCETRATION 31.7 g/dL 33.0-37.0 L (test code = MCHC) RED CELL DISTRIBUTION WIDTH CV 15.6 % 11.5-14.5 H (test code = RDW) RED CELL DISTRIBUTION WIDTH SD 50.3 fL 37.0-54.0 N (test code = RDW-SD) PLATELET COUNT (test code = 147 x10 3/uL 150-400 L PLT) MEAN PLATELET VOLUME (test code 10.8 fL 7.0-9.0 H = MPV) NEUTROPHIL % (test code = NT%) 52.6 % 56.0-77.0 L IMMATURE GRANULOCYTE % (test 0.7 % 0.0-2.0 N code = IG%) LYMPHOCYTE % (test code = LY%) 27.6 % 14.0-32.0 N MONOCYTE % (test code = MO%) 11.5 % 4.8-9.0 H EOSINOPHIL % (test code = EO%) 6.7 % 0.3-3.7 H BASOPHIL % (test code = BA%) 0.9 % 0.0-2.0 N NUCLEATED RBC % (test code = 0.0 % 0-0 N NRBC%) NEUTROPHIL # (test code = NT#) 3.62 x10 3/uL 2.0-7.6 N IMMATURE GRANULOCYTE # (test 0.05 x10 3/uL 0.00-0.03 H code = IG#) LYMPHOCYTE # (test code = LY#) 1.90 x10 3/uL 1.0-3.8 N MONOCYTE # (test code = MO#) 0.79 x10 3/uL 0.1-0.8 N EOSINOPHIL # (test code = EO#) 0.46 x10 3/uL 0.0-0.2 H BASOPHIL # (test code = BA#) 0.06 x10 3/uL 0.0-0.2 N NUCLEATED RBC # (test code = 0.00 x10 3/uL 0.0-0.1 N NRBC#) MANUAL DIFF REQUIRED (test code NO = MDIFF) COMMENTS: To be done morning of Heart CathGLUCOSE [id number] 08:25:00 Test Item Value Reference Range Interpretation Comments GLUCOSE BEDSIDE (test 229 MG/DL 70-110 H Perfor med by certified code = GLUBED) 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 BASIC METABOLIC [id number] 07:30:00 Test Item Value Reference Range Interpretation Comments SODIUM (test code = 137 mEq/L 134-147 N NA) POTASSIUM (test code 4.9 mEq/L 3.4-5.0 N = K) CHLORIDE (test code 104 mEq/L 100-108 N = CL) CARBON DIOXIDE (test 26 mEq/l 21-33 N code = CO2) ANION GAP (test code 11 0-20 N = GAP) GLUCOSE (test code = 264 mg/dL 70-110 H GLU) BLOOD UREA NITROGEN 33 mg/dL 7-18 H (test code = BUN) GLOMERULAR 25.2 70-80 L The Glomerular FILTRATION RATE Filtration R ate is a (test code = GFR) calculated parameterbased on serum Creatinine, pat ient age and sex. GFR va luesless than 60 mL/min/ 1.73 square meters a re indicative ofCh ronic Kidney Disease. Values less than 15 mL/min/1.73squa re meters indicate Kidney failure. The calculation forGFR is based on the CKD-EPI (2020) calculat ion. This formulais race indifferent and is the recommended for zoie for GFRby the [facility] n[facility] Found[facility] on for Adults.The GFR will not calculate if th e sex is unknown or if thepatient's ag e is <18 years. CREATININE (test 2.5 mg/dL 0.6-1.3 H code = CREAT) CALCIUM (test code = 8.3 mg/dL 8.0-10.5 N CA) COMMENTS: To be done morning of Heart CathPSA TOTAL/[id number] 04:09:00 Test Item Value Reference Range Interpretation Comments PSA FREE (test 0.09 ng/mL N/A Jaun ECLIA m ethodology. code = PSAF) PSA TOTAL 0.4 ng/mL 0.0-4.0 Jaun ECLIA (test code = methodology.Acc ording to the PSAT) [employer] [employer], Se rum PSAshould decrease and re main at undetectable le vels afterradical pr ostatectomy. The AUA defines biochemicalrecu rrence as an initial PSA pushpa ue 0.2 ng/mL or greaterfollo wed by a subsequent conf irmatory PSA value 0.2 ng/mL or greater. Values obtained with different assay methods orkits cannot b e used interchangeably . Results cannot beinterp reted as absolute eviden ce of the presence or abs enceof malignant disea se. % FREE PSA 22.5 % See_Comment The table below lists the (test code = probability of prostate PSA%) cancer formen w ith non-suspicious KARINA results and total PSA b etween4 and 10 ng/mL, by patie nt age (Jackie et al , ZACK 1998,279:1542). % Free PSA 50-64 yr 65-75 yr 0.00-10.00% 56% 55% 10.01-1 5.00% 24% 35% 15.01-20.00% 17 % 23% 20.01-25.00% 10 % 20% >25.00% 5% 9%Please no te: Jackie gibson al did not m herman specific recommendations regarding the use of percent free PSA for any other popul ation of men.Performed A t: HD [facility] [id number] [facility], [place] [id number] Jarad Landaverde MD Ph:[phone] [Automated mess age] The system which ge nerated this result transmit mendez reference range: (). The reference range was not u sed to interpret this result as normal/abnormal . 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 - US RETROPERITONEAL [id number] 13:53:00 [facility] : 1940 Sex: M Name: ERIKA BROWN [facility] : 1940 Age/S: 82 / M [address] [place] [address] Blvd Unit #: [id number] Loc: [place] [address] Phys: Jaz Gan MD Acct: [id number] Dis Date: Status: ADM IN PHONE #: [phone] Exam Date: 10/03/2022 1154 FAX #: [phone] Reason: arf EXAMS: CPT CODE: [id number] US RETROPERITONEAL COM [id number] - US RETROPERITONEAL COM - 10/03/2022 10:19 AM . Location Code: B2 CLINICAL INDICATION: Acute renal failure. History of absent left kidney ADDITIONAL HISTORY: None COMPARISON: Prior from 2011 TECHNIQUE: Grayscale and Doppler imaging of the kidneys was obtained. Right kidney is normal in size, shape and echotexture without hydronephrosis. Right kidney is 11.2 x 4.5 x 7.2 cm. Left is not visualized No significant renal mass found. Bladder unremarkable. IMPRESSION: 1. No acute abnormality involving the right kidney 2. Absent left kidney at 1353 Reported and signed by: Alejandro Hdz M.D. CC: Henrique Prieto DO; Floyd Mccarthy MD; Jaz Gan MD Technologist: Heena Colby Trnnmb Date/Time: 10/03/2022 (4968) [email or web address] Orig Print D/T: S: 10/03/2022 (4224) Probe: PAGE 1 Signed ReportAG PROSTATE [id number] 13:33:00 Test Item Value Reference Range Interpretation Comments AG PROSTATE 0.37 ng/mL 0.00-4.00 N [employer] IM PSA assay. SPECIFIC (test Values obtain ed with code = PSA) different assay methods or kits cannotb e used interchangeably . Do not interpret level s of PSA as absolute noelle dence of thepresence or the absence of hannah gnant disease. Measur ementsof PSA should alwa ys be used in conjunction with otherdiagnostic procedures, inc luding information fro m thepatient's cl inical evaluation. The [employer] IM PSA assay is intended to be used as a n aidin the detection o f prostate cancer and as a n aid in themanagement (monitoring) of prostate cancer patients , inaccordance wi th current clinical practi ce guidelines. Theseguidelines define biochemical rec urrence of prostate cancer as a detectable or r ising PSA value post-radicalpro statectomy that is greater than or equal to0.20 ng /mL (ug/L) with a second confirmatory le margaux ofgreater than or equal to 0.20 ng/mL ( ug/L), thus use of PSA values less than 0.20 ng/mL (ug/L) is not r ecommended toidentify antionette ents at risk of biochem ical recurrence ofpr ostate cancer. 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 THROMBOPLASTIN TIME [id number] 06:06:00 Test Item Value Reference Range Interpretation Comments THROMBOPLASTIN TIME 134.3 Seconds 25.0-39.5 H Therap eutic PARTIAL (test code = Range: 50.4 - 88.3 PTT) Seconds Effective 06/08/2018 BASIC METABOLIC [id number] 05:38:00 Test Item Value Reference Range Interpretation Comments SODIUM (test code = 134 mEq/L 134-147 N NA) POTASSIUM (test code 4.5 mEq/L 3.4-5.0 N = K) CHLORIDE (test code 100 mEq/L 100-108 N = CL) CARBON DIOXIDE (test 25 mEq/l 21-33 N code = CO2) ANION GAP (test code 14 0-20 N = GAP) GLUCOSE (test code = 203 mg/dL 70-110 H GLU) BLOOD UREA NITROGEN 30 mg/dL 7-18 H (test code = BUN) GLOMERULAR 21.1 70-80 L The Glomerular FILTRATION RATE Filtration R ate is a (test code = GFR) calculated parameterbased on serum Creatinine, pat ient age and sex. GFR va luesless than 60 mL/min/ 1.73 square meters a re indicative ofCh ronic Kidney Disease. Values less than 15 mL/min/1.73squa re meters indicate Kidney failure. The calculation forGFR is based on the CKD-EPI (2020) calculat ion. This formulais race indifferent and is the recommended for zoie for GFRby the Natio nal Kidney Foundati on for Adults.The GFR will not calculate if th e sex is unknown or if thepatient's ag e is <18 years. CREATININE (test 2.9 mg/dL 0.6-1.3 H code = CREAT) CALCIUM (test code = 9.3 mg/dL 8.0-10.5 N CA) UA RFLX MICR CULT IF [id number] 05:30:00 Test Item Value Reference Range Interpretation Comments UA COLOR (test code = COLU) YELLOW YEL/STRAW UA APPEARANCE (test code = CLEAR CLEAR APPU) UA GLUCOSE DIPSTICK (test code 1+ NEGATIVE A = DGLUU) UA BILIRUBIN DIPSTICK (test NEGATIVE NEGATIVE code = BILU) UA KETONE DIPSTICK (test code NEGATIVE NEGATIVE = KETU) UA SPECIFIC GRAVITY (test code 1.009 1.005-1.030 N = SGU) UA BLOOD DIPSTICK (test code = 1+ NEGATIVE A MARYLOU) UA PH DIPSTICK (test code = 6.0 5.0-7.0 N DINO) UA PROTEIN DIPSTICK (test code NEGATIVE NEGATIVE = PROU) UA UROBILINIOGEN DIPSTICK 0.2 mg/dL 0.2-1.0 (test code = URO) UA NITRITE DIPSTICK (test code NEGATIVE NEGATIVE = JUNG) UA LEUKOCYTE ESTERASE DIPSTICK 1+ NEGATIVE A (test code = LEUU) UA WBC (test code = WBCU) 4-9 WBC/HPF 0-3 A UA RBC (test code = RBCU) 0-3 RBC/HPF 0-3 UA WBC NO REFLEX (test code = 4-9 WBC/HPF 0-3 A WBCUCL) UA BACTERIA (test code = BACU) TRACE /HPF NONE SEEN UA SQUAMOUS CELLS (test code = NONE SEEN /HPF NONE SEEN SQU) UA HYALINE CAST (test code = 0-2 /LPF NONE SEEN HYALU) UA MUCUS (test code = MUCU) TRACE /LPF NONE SEEN Cath type: Temporary/indwellingIN date: 09/30/22IN time: 2244Elapse time: 33 Hrs 34 MinsIndication for culture: Flank PainSpecimen Description: CLEAN CATCHCBC W/AUTO [id number] 05:15:00 Test Item Value Reference Range Interpretation Comments WHITE BLOOD CELL (test code = 9.0 x10 3/uL 4.5-11.0 N WBC) RED BLOOD CELL (test code = 4.04 x10 6/uL 4.00-5.60 N RBC) HEMOGLOBIN (test code = HGB) 11.9 g/dL 12.5-16.9 L HEMATOCRIT (test code = HCT) 37.4 % 37.5-50.7 L MEAN CELL VOLUME (test code = 92.6 fL 81.0-99.0 N MCV) MEAN CELL HGB (test code = MCH) 29.5 pg 27.0-33.0 N MEAN CELL HGB CONCETRATION 31.8 g/dL 33.0-37.0 L (test code = MCHC) RED CELL DISTRIBUTION WIDTH CV 15.1 % 11.5-14.5 H (test code = RDW) RED CELL DISTRIBUTION WIDTH SD 50.2 fL 37.0-54.0 N (test code = RDW-SD) PLATELET COUNT (test code = 145 x10 3/uL 150-400 L PLT) MEAN PLATELET VOLUME (test code 10.7 fL 7.0-9.0 H = MPV) NEUTROPHIL % (test code = NT%) 56.7 % 56.0-77.0 N IMMATURE GRANULOCYTE % (test 0.8 % 0.0-2.0 N code = IG%) LYMPHOCYTE % (test code = LY%) 27.9 % 14.0-32.0 N MONOCYTE % (test code = MO%) 7.7 % 4.8-9.0 N EOSINOPHIL % (test code = EO%) 6.3 % 0.3-3.7 H BASOPHIL % (test code = BA%) 0.6 % 0.0-2.0 N NUCLEATED RBC % (test code = 0.0 % 0-0 N NRBC%) NEUTROPHIL # (test code = NT#) 5.11 x10 3/uL 2.0-7.6 N IMMATURE GRANULOCYTE # (test 0.07 x10 3/uL 0.00-0.03 H code = IG#) LYMPHOCYTE # (test code = LY#) 2.51 x10 3/uL 1.0-3.8 N MONOCYTE # (test code = MO#) 0.69 x10 3/uL 0.1-0.8 N EOSINOPHIL # (test code = EO#) 0.57 x10 3/uL 0.0-0.2 H BASOPHIL # (test code = BA#) 0.05 x10 3/uL 0.0-0.2 N NUCLEATED RBC # (test code = 0.00 x10 3/uL 0.0-0.1 N NRBC#) MANUAL DIFF REQUIRED (test code NO = MDIFF) COMMENTS: Daily while on Heparin- XR ELBOW 2 VIEWS [id number] 00:00:00 [facility]Y : 1940 Sex: M FAX: Henrique Escoto [phone] [place]: St: FAX: Floyd Lyn MD [phone] Name: ERIKA BROWN [facility] : 1940 Age/S: 82/M [address] [place] [address] Unit #: [id number] Loc: G.[address] [place] [address] Phys: Henrique Prieto DO Acct: [id number] Dis Date: Status: ADM IN PHONE #: [phone] Exam Date: 10/03/2022 1418 FAX #: [phone] Reason: PAIN, STRIKE ON WINDOWSEAL EXAMS: CPT CODE: [id number] XR ELBOW [address] [place] [id number] PROCEDURE INFORMATION: Exam: XR Right Elbow Exam date and time: 10/03/2022 1:55 PM Age: 82 years old Clinical indication: Other: Pain, strike on windowseal TECHNIQUE: Imaging protocol: Radiologic exam of the right elbow. Views: 1 or 2 views. AP and Lateral COMPARISON: Norelevant prior studies available. FINDINGS: Bones/joints: No acute fracture or dislocation. Well corticated density near the lateral epicondyle could reflect old trauma. Soft tissues: Soft tissue swelling. No radiopaque foreign body. IV in the antecubital fossa. Notes: If there is further concern, recommend follow-up radiographs or MRI for complete assessment. IMPRESSION: Soft tissue swelling. No acute fracture or dislocation. at 1606 Reported and signed by: Beni Owens M.D. CC: Henrique Prieto DO; Floyd Mccarthy MD Technologist: Yessi Castro, RT(R); Karime Arriola RT(R) Trnscrd Date/Time/By: 10/03/2022 (160) : By: [email or web address] Orig Print D/T: S: 10/03/2022 (160) PAGE 1 Signed Report- XR KNEE 1 OR 2 V [id number] 00:00:00 [facility] : 1940 Sex: M FAX: Leelee menaPedrosherleymaria isabel [phone] [place]: St: ADM FAX: Floyd Lyn MD [phone] [facility] 1940 Age/S: 82/M [address] [place] [address] Unit #: [id number] Loc: G.[address] [place] [address]Nydm: Henrique Prieto DO Acct: [id number] Dis Date: Status: ADM IN PHONE #: [phone] Exam Date: 10/03/2022 1411 FAX #: [phone] Reason: PAIN EXAMS: CPT CODE: [id number] XR KNEE 1 OR 2 V RT [id number] PROCEDURE INFORMATION: Exam: XR Right Knee Exam date and time: 10/03/2022 1:55 PM Age: 82 years old Clinical indication: Other: Pain TECHNIQUE: Imaging protocol: Radiologic exam of the right knee. Views: 1 or 2 views. AP and Lateral COMPARISON: US DUP VEIN DAMIAN 10/01/2022 11:58 AM FINDINGS: Bones/joints: No acute fracture or dislocation. A small joint effusion. Mild degenerative change. Soft tissues: Soft tissue swelling. Vasculature: Atherosclerotic calcifications. Notes: If there is further concern, recommend follow-up radiographs or MRI for complete assessment. IMPRESSION: Soft tissue swelling. No acute fracture or dislocation. Small joint effusion. at 1607 Reported and signed by: Beni Owens M.D. CC: Henrique Falcon; Floyd Mccarthy MD Technologist: Yessi Castro, RT(R); Karime Arriola, RT(R) Trnnmrd Date/Time/By: 10/03/2022 (4518) : By: [email or web address] Orig Print D/T: S: 10/03/2022 (9407) PAGE 1 Signed Report- XR TIBIA/FIBULA 2 V [id number] 00:00:00 [facility] : 1940 Sex: M FAX: Henrique Escoto [phone] [place]: St: ADM FAX: Floyd Lyn MD [phone] Name: ERIKA BROWN [facility] : 1940 Age/S: 82/M [address] [place] [address] Unit #: [id number] Loc: G.4[address] [place] [address] Phys: Henrique Prieto DO Acct: [id number] Dis Date: Status: ADM IN PHONE #: [phone] Exam Date: 10/03/2022 1404 FAX #: [phone] Reason: PAIN EXAMS: CPT CODE: [id number] XR TIBIA/FIBULA 2 [place] RT [id number] PROCEDURE INFORMATION: Exam: XR Right Tibia and Fibula Exam date and time: 10/03/2022 1:55 PM Age: 82 years old Clinical indication: Other: Pain TECHNIQUE: Imaging protocol: Radiologic exam of the right tibia and fibula. Views: 2 views. AP and Lateral COMPARISON: US DUP VEIN DAMIAN 10/01/2022 11: 58 AM FINDINGS: Bones/joints: No acute fracture or dislocation. Os trigonum. Calcaneal spurs. Mild degenerative change in the ankle and knee. Soft tissues: Soft tissue swelling. Vasculature: Atherosclerotic calcifications. Notes: If there is further concern, recommend follow-up radiographs or MRI for complete assessment. IMPRESSION: Soft tissue swelling. No acute fracture or dislocation. at 1607 Reported and signed by: Beni Owens M.D. CC: Henrique Prieto DO; Floyd Mccarthy MD Technologist: Yessi Castro, RT(R); Karime ArriolaRT(R) Trnscrd Date/Time/By: 10/03/2022 (8972) : By: [email or web address] Orig Print D/T: S: 10/03/2022 (9336) PAGE 1 Signed Report- XR FOOT 3 + V [id number] 00:00:00 [facility] : 1940 Sex: M FAX: Henrique Escoto [phone] [place]: St: ADM FAX: Floyd Lyn MD [phone] Name[facility] : 1940 Age/S: 82/M [address] [place] [address] Unit #: [id number] Loc: G.[address] [place] [address] Phys: Henrique Prieto DO Acct: [id number] Dis Date: Status: ADM IN PHONE #: [phone] Exam Date: 10/03/2022 140 FAX #: [phone] Reason: PAIN EXAMS: CPT CODE: [id number] XR FOOT 3 + [place] [id number] PROCEDURE INFORMATION: Exam: XR Right Foot Exam date and time: 10/03/2022 1:55 PM Age: 82 years old Clinical indication: Other: Pain TECHNIQUE: Imaging protocol: Radiologic exam of the right foot. Views: 3 or more views. AP Oblique Lateral COMPARISON: US DUP VEIN [facility]IAN 10/01/2022 11:58 AM FINDINGS: Bones/joints: Old 5th metatarsal fracture. Well-corticated density which may reflect old trauma is noted near the lateral malleolus. Degenerative changes. No acute fracture or dislocation. Os trigonum. Achilles enthesophyte. Soft tissues: Soft tissue swelling. Vasculature: Atherosclerotic calcifications. Notes: If there is further concern, recommend follow-up radiographs or MRI for complete assessment. PROCEDURE INFORMATION: Exam: XR Left Foot Exam date and time: 10/03/2022 1:55 PM Age: 82 years old Clinical indication: Other: Pain TECHNIQUE: Imaging protocol: Radiologic examof the left foot. Views: 3 or more views. AP Oblique Lateral COMPARISON: US DUP VEIN DAMIAN 10/01/2022 11:58 AM FINDINGS: Bones/joints: No acute fracture or dislocation. Degenerative changes. Soft tissues: Soft tissue swelling. Vasculature: Atherosclerotic calcifications. Notes: If there is further concern, recommend follow-up radiographs or MRI for complete assessment. IMPRESSION: XR Right Foot Soft tissue swelling. No acute fracture or dislocation. XR Left Foot Soft tissue swelling. No acute fracture or dislocation. PAGE 1 Signed Report (CONTINUED) FAX: Henrique Prieto [phone] [place]: St: ADM FAX: Floyd Lyn MD [phone] Name: ERIKA BROWN [facility] : 1940 Age/S: 82/M [address] [place] [address] Unit #: [id number] Loc: G.4408 [place] [address] Phys: Henrique Prieto DO Acct: [id number] Dis Date: Status: ADM IN PHONE #: [phone] Exam Date: FAX #: [phone] Reason: PAIN EXAMS: CPT CODE: [id number] XR FOOT 3 [place] [address] (Continued) at 1611 Reported and signed by: Beni Owens M.D. CC: Henrique Prieto DO; Floyd Mccarthy MD Technologist: Yessi Castro, RT(R); Karime Arriola, RT(R) Trnnmrd Date/Time/By: 10/03/2022 (161) : By: [email or web address] Orig Print D/T: S: 10/03/2022 (1611) PAGE 2 Signed ReportTHROMBOPLASTIN TIME [id number] 23:19:00 Test Item Value Reference Range Interpretation Comments THROMBOPLASTIN TIME 42.2 Seconds 25.0-39.5 H Therape utic Range: PARTIAL (test code = 50.4 - 88.3 Seconds PTT) Effective 06/08/2018 GLUCOSE [id number] 20:29:00 Test Item Value Reference Range Interpretation Comments GLUCOSE BEDSIDE (test 240 MG/DL 70-110 H Perfor med by certified code = GLUBED) 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 [facility] THROMBOPLASTIN TIME [id number] 17:20:00 Test Item Value Reference Range Interpretation Comments THROMBOPLASTIN TIME 69.7 Seconds 25.0-39.5 H Therape utic Range: PARTIAL (test code = 50.4 - 88.3 Seconds PTT) Effective 06/08/2018 GLUCOSE [id number] 13:16:00 Test Item Value Reference Range Interpretation Comments GLUCOSE BEDSIDE (test 143 MG/DL 70-110 H Perfor med by certified code = GLUBED) 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 [facility] GLUCOSE [id number] 13:16:00 Test Item Value Reference Range Interpretation Comments GLUCOSE BEDSIDE (test 146 MG/DL 70-110 H Perfor med by certified code = GLUBED) 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 [facility] GLUCOSE [id number] 13:16:00 Test Item Value Reference Range Interpretation Comments GLUCOSE BEDSIDE (test 282 MG/DL 70-110 H Perfor med by certified code = GLUBED) 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 [facility] GLUCOSE [id number] 13:15:00 Test Item Value Reference Range Interpretation Comments GLUCOSE BEDSIDE (test 179 MG/DL 70-110 H Perfor med by certified code = GLUBED) 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 [facility] B-TYPE NATRIURETIC [id number] 08:17:00 Test Item Value Reference Range Interpretation Comments B-TYPE NATRIURETIC PEPTIDE (test 22.0 PG/ML 0-100 N code = BNP) THROMBOPLASTIN TIME [id number] 08:15:00 Test Item Value Reference Range Interpretation Comments THROMBOPLASTIN TIME 79.4 Seconds 25.0-39.5 H Therape utic Range: PARTIAL (test code = 50.4 - 88.3 Seconds PTT) Effective 06/08/2018 BASIC METABOLIC [id number] 08:11:00 Test Item Value Reference Range Interpretation Comments SODIUM (test code = 137 mEq/L 134-147 N NA) POTASSIUM (test code 4.2 mEq/L 3.4-5.0 N = K) CHLORIDE (test code 102 mEq/L 100-108 N = CL) CARBON DIOXIDE (test 28 mEq/l 21-33 N code = CO2) ANION GAP (test code 12 0-20 N = GAP) GLUCOSE (test code = 131 mg/dL 70-110 H GLU) BLOOD UREA NITROGEN 25 mg/dL 7-18 H (test code = BUN) GLOMERULAR 22.0 70-80 L The Glomerular FILTRATION RATE Filtration R ate is a (test code = GFR) calculated parameterbased on serum Creatinine, pat ient age and sex. GFR va luesless than 60 mL/min/ 1.73 square meters a re indicative ofCh ronic Kidney Disease. Values less than 15 mL/min/1.73squa re meters indicate Kidney failure. The calculation forGFR is based on the CKD-EPI (2020) calculat ion. This formulais race indifferent and is the recommended for zoie for GFRby the [facility] on for Adults.The GFR will not calculate if th e sex is unknown or if thepatient's ag e is <18 years. CREATININE (test 2.8 mg/dL 0.6-1.3 H code = CREAT) CALCIUM (test code = 9.8 mg/dL 8.0-10.5 N CA) [id number] 08:11:00 Test Item Value Reference Range Interpretation Comments MAGNESIUM (test code = MAG) 1.86 mg/dL 1.80-2.40 N CBC W/AUTO [id number] 07:56:00 Test Item Value Reference Range Interpretation Comments WHITE BLOOD CELL (test code = 9.0 x10 3/uL 4.5-11.0 N WBC) RED BLOOD CELL (test code = 3.99 x10 6/uL 4.00-5.60 L RBC) HEMOGLOBIN (test code = HGB) 11.7 g/dL 12.5-16.9 L HEMATOCRIT (test code = HCT) 35.8 % 37.5-50.7 L MEAN CELL VOLUME (test code = 89.7 fL 81.0-99.0 N MCV) MEAN CELL HGB (test code = MCH) 29.3 pg 27.0-33.0 N MEAN CELL HGB CONCETRATION 32.7 g/dL 33.0-37.0 L (test code = MCHC) RED CELL DISTRIBUTION WIDTH CV 15.1 % 11.5-14.5 H (test code = RDW) RED CELL DISTRIBUTION WIDTH SD 47.9 fL 37.0-54.0 N (test code = RDW-SD) PLATELET COUNT (test code = 138 x10 3/uL 150-400 L PLT) MEAN PLATELET VOLUME (test code 10.5 fL 7.0-9.0 H = MPV) NEUTROPHIL % (test code = NT%) 55.0 % 56.0-77.0 L IMMATURE GRANULOCYTE % (test 0.6 % 0.0-2.0 N code = IG%) LYMPHOCYTE % (test code = LY%) 29.7 % 14.0-32.0 N MONOCYTE % (test code = MO%) 8.6 % 4.8-9.0 N EOSINOPHIL % (test code = EO%) 5.5 % 0.3-3.7 H BASOPHIL % (test code = BA%) 0.6 % 0.0-2.0 N NUCLEATED RBC % (test code = 0.0 % 0-0 N NRBC%) NEUTROPHIL # (test code = NT#) 4.93 x10 3/uL 2.0-7.6 N IMMATURE GRANULOCYTE # (test 0.05 x10 3/uL 0.00-0.03 H code = IG#) LYMPHOCYTE # (test code = LY#) 2.66 x10 3/uL 1.0-3.8 N MONOCYTE # (test code = MO#) 0.77 x10 3/uL 0.1-0.8 N EOSINOPHIL # (test code = EO#) 0.49 x10 3/uL 0.0-0.2 H BASOPHIL # (test code = BA#) 0.05 x10 3/uL 0.0-0.2 N NUCLEATED RBC # (test code = 0.00 x10 3/uL 0.0-0.1 N NRBC#) MANUAL DIFF REQUIRED (test code NO = MDIFF) COMMENTS: Daily while on HeparinTHROMBOPLASTIN TIME [id number] 02:23:00 Test Item Value Reference Range Interpretation Comments THROMBOPLASTIN TIME 50.3 Seconds 25.0-39.5 H Therape utic Range: PARTIAL (test code = 50.4 - 88.3 Seconds PTT) Effective 06/08/2018 THROMBOPLASTIN TIME [id number] 19:48:00 Test Item Value Reference Range Interpretation Comments THROMBOPLASTIN TIME 49.0 Seconds 25.0-39.5 H Therape utic Range: PARTIAL (test code = 50.4 - 88.3 Seconds PTT) Effective 06/08/2018 GLUCOSE [id number] 19:36:00 Test Item Value Reference Range Interpretation Comments GLUCOSE BEDSIDE (test 202 MG/DL 70-110 H Perfor med by certified code = GLUBED) 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 THROMBOPLASTIN TIME [id number] 09:31:00 Test Item Value Reference Range Interpretation Comments THROMBOPLASTIN TIME 24.0 Seconds 25.0-39.5 L Therape utic Range: PARTIAL (test code = 50.4 - 88.3 Seconds PTT) Effective 06/08/2018 CBC W/AUTO [id number] 08:26:00 Test Item Value Reference Range Interpretation Comments WHITE BLOOD CELL (test code = 7.4 x10 3/uL 4.5-11.0 N WBC) RED BLOOD CELL (test code = 4.08 x10 6/uL 4.00-5.60 N RBC) HEMOGLOBIN (test code = HGB) 11.8 g/dL 12.5-16.9 L HEMATOCRIT (test code = HCT) 36.3 % 37.5-50.7 L MEAN CELL VOLUME (test code = 89.0 fL 81.0-99.0 N MCV) MEAN CELL HGB (test code = MCH) 28.9 pg 27.0-33.0 N MEAN CELL HGB CONCETRATION 32.5 g/dL 33.0-37.0 L (test code = MCHC) RED CELL DISTRIBUTION WIDTH CV 14.8 % 11.5-14.5 H (test code = RDW) RED CELL DISTRIBUTION WIDTH SD 46.7 fL 37.0-54.0 N (test code = RDW-SD) PLATELET COUNT (test code = 138 x10 3/uL 150-400 L PLT) MEAN PLATELET VOLUME (test code 10.4 fL 7.0-9.0 H = MPV) NEUTROPHIL % (test code = NT%) 62.0 % 56.0-77.0 N IMMATURE GRANULOCYTE % (test 0.5 % 0.0-2.0 N code = IG%) LYMPHOCYTE % (test code = LY%) 23.1 % 14.0-32.0 N MONOCYTE % (test code = MO%) 8.2 % 4.8-9.0 N EOSINOPHIL % (test code = EO%) 5.7 % 0.3-3.7 H BASOPHIL % (test code = BA%) 0.5 % 0.0-2.0 N NUCLEATED RBC % (test code = 0.0 % 0-0 N NRBC%) NEUTROPHIL # (test code = NT#) 4.60 x10 3/uL 2.0-7.6 N IMMATURE GRANULOCYTE # (test 0.04 x10 3/uL 0.00-0.03 H code = IG#) LYMPHOCYTE # (test code = LY#) 1.72 x10 3/uL 1.0-3.8 N MONOCYTE # (test code = MO#) 0.61 x10 3/uL 0.1-0.8 N EOSINOPHIL # (test code = EO#) 0.42 x10 3/uL 0.0-0.2 H BASOPHIL # (test code = BA#) 0.04 x10 3/uL 0.0-0.2 N NUCLEATED RBC # (test code = 0.00 x10 3/uL 0.0-0.1 N NRBC#) MANUAL DIFF REQUIRED (test code NO = MDIFF) THROMBOPLASTIN TIME [id number] 07:28:00 Test Item Value Reference Range Interpretation Comments THROMBOPLASTIN TIME 30.5 Seconds 25.0-39.5 N Therape utic Range: PARTIAL (test code = 50.4 - 88.3 Seconds PTT) Effective 06/08/2018 COMMENTS: DRAW PTT 6 HOURS AFTER INITIATION OF HEPARINBASIC METABOLIC PANEL 2022-10-01 07:26:00 Test Item Value Reference Range Interpretation Comments SODIUM (test code = 135 mEq/L 134-147 N NA) POTASSIUM (test code 4.4 mEq/L 3.4-5.0 N = K) CHLORIDE (test code 103 mEq/L 100-108 N = CL) CARBON DIOXIDE (test 27 mEq/l 21-33 N code = CO2) ANION GAP (test code 9 0-20 N = GAP) GLUCOSE (test code = 260 mg/dL 70-110 H GLU) BLOOD UREA NITROGEN 21 mg/dL 7-18 H (test code = BUN) GLOMERULAR 32.9 70-80 L The Glomerular FILTRATION RATE Filtration R ate is a (test code = GFR) calculated parameterbased on serum Creatinine, pat ient age and sex. GFR va luesless than 60 mL/min/ 1.73 square meters a re indicative ofCh ronic Kidney Disease. Values less than 15 mL/min/1.73squa re meters indicate Kidney failure. The calculation forGFR is based on the CKD-EPI (2020) calculat ion. This formulais race indifferent and is the recommended for zoie for GFRby the [facility] Found[facility] on for Adults.The GFR will not calculate if th e sex is unknown or if thepatient's ag e is <18 years. CREATININE (test 2.0 mg/dL 0.6-1.3 H code = CREAT) CALCIUM (test code = 9.5 mg/dL 8.0-10.5 N CA) HGBA1C%2022-10-01 07:24:00 Test Item Value Reference Range Interpretation Comments HGBA1C% (test code = HGBA1C%) 9.8 %A1C 4.8-6.0 H PROTHROMBIN [id number] 01:38:00 Test Item Value Reference Range Interpretation Comments PROTHROMBIN TIME 12.0 SECONDS 9.3-12.9 N PATIENT (test code = PTP) INTERNATIONAL NORMAL 1.1 0.8-1.2 N TARGET INR BY RATIO (test code = INDICATIO N Indication INR) INR1. Prophylax is of venous thrombos is 2.0 - 3.0 (orthoped ic surgery), Proph ylaxis of venous throm bosis (other than hig h-risk surgery), Treat ment of Deep Vein Thrombosis/Pulm onary Embolism, Preve ntion of systemic emb olism - Tissue heart va lves, Acute Myocardia l Infarction (to prevent systemic emboli sm), Valvular heart disease, Atrial Fibrillation, Bileaflet mecha nical valve in aortic position.2. Mec hanical prosthetic valv es (high risk), 2. 5 - 3.5 Presence of Lup us Anticoagulant o r Antiphospholipi d Antibodies, Pre vention of systemic emb olism - Acute Myocardia l Infarction (to prevent recurrent infar ct). COMMENTS: IF NOT ALREADY DONE WITHIN LAST 24 HOURSTHROMBOPLASTIN TIME PARTIAL 2022-10-01 01:38:00 Test Item Value Reference Range Interpretation Comments THROMBOPLASTIN TIME 29.9 Seconds 25.0-39.5 N Therape utic Range: PARTIAL (test code = 50.4 - 88.3 Seconds PTT) Effective 06/08/2018 COMMENTS: IF NOT ALREADY DONE WITHIN LAST 24 HOURSCBC W/AUTO [id number] 01:29:00 Test Item Value Reference Range Interpretation Comments WHITE BLOOD CELL (test code = 9.2 x10 3/uL 4.5-11.0 N WBC) RED BLOOD CELL (test code = 4.19 x10 6/uL 4.00-5.60 N RBC) HEMOGLOBIN (test code = HGB) 12.5 g/dL 12.5-16.9 N HEMATOCRIT (test code = HCT) 38.0 % 37.5-50.7 N MEAN CELL VOLUME (test code = 90.7 fL 81.0-99.0 N MCV) MEAN CELL HGB (test code = MCH) 29.8 pg 27.0-33.0 N MEAN CELL HGB CONCETRATION 32.9 g/dL 33.0-37.0 L (test code = MCHC) RED CELL DISTRIBUTION WIDTH CV 14.6 % 11.5-14.5 H (test code = RDW) RED CELL DISTRIBUTION WIDTH SD 47.5 fL 37.0-54.0 N (test code = RDW-SD) PLATELET COUNT (test code = 158 x10 3/uL 150-400 N PLT) MEAN PLATELET VOLUME (test code 10.9 fL 7.0-9.0 H = MPV) NEUTROPHIL % (test code = NT%) 66.2 % 56.0-77.0 N IMMATURE GRANULOCYTE % (test 0.3 % 0.0-2.0 N code = IG%) LYMPHOCYTE % (test code = LY%) 20.4 % 14.0-32.0 N MONOCYTE % (test code = MO%) 8.2 % 4.8-9.0 N EOSINOPHIL % (test code = EO%) 4.1 % 0.3-3.7 H BASOPHIL % (test code = BA%) 0.8 % 0.0-2.0 N NUCLEATED RBC % (test code = 0.0 % 0-0 N NRBC%) NEUTROPHIL # (test code = NT#) 6.08 x10 3/uL 2.0-7.6 N IMMATURE GRANULOCYTE # (test 0.03 x10 3/uL 0.00-0.03 N code = IG#) LYMPHOCYTE # (test code = LY#) 1.87 x10 3/uL 1.0-3.8 N MONOCYTE # (test code = MO#) 0.75 x10 3/uL 0.1-0.8 N EOSINOPHIL # (test code = EO#) 0.38 x10 3/uL 0.0-0.2 H BASOPHIL # (test code = BA#) 0.07 x10 3/uL 0.0-0.2 N NUCLEATED RBC # (test code = 0.00 x10 3/uL 0.0-0.1 N NRBC#) MANUAL DIFF REQUIRED (test code NO = MDIFF) COMMENTS: IF NOT ALREADY DONE WITHIN LAST 24 HOURS- CT CHEST W/O CONTRAST 2022-10-01 00:00:00 [facility] 1940 Sex: M Name: ERIKA BROWN [facility] : 1940 Age/S: 82 / M [address] [facility] Unit #: [id number]: EUFEMIA Dave [address] Phys: Maged Oakley MD Acct: [id number] Dis Date: Status: ADM IN PHONE #: [phone] Exam Date: 10/01/2022 1140 FAX #: [phone] Reason: CAD, pre op eval EXAMS: CPTCODE: [id number] CT CHEST W/O CONTRAST 70638 PROCEDURE INFORMATION: Exam: CT Chest Without Contrast; Diagnostic Exam date and time: 10/01/2022 11:39 AM Age: 82 years old Clinical indication: Other: Cad, pre op eval TECHNIQUE: Imaging protocol: Diagnostic computed tomography of the chest without contrast. Radiation optimization: All CT scans at this facility use at least one of these dose optimization techniques: automated exposure control; mA and/or kV adjustment per patient size (includes targeted exams where dose is matched to clinical indication); or iterative reconstruction. REPORTING DATA: Countof CT and Cardiac NM exams in prior 12 months: This patient has received 0 known CTs and 0 known cardiac nuclear medicine studies in the 12 months prior to the current study. COMPARISON: No relevant prior studies available. FINDINGS: Lungs: Respiratory motion artifact limits lung parenchymal evaluation. Lung apices show nonspecific minimal scarring. No consolidation. No masses. Pleural spaces: Unremarkable. No pneumothorax. No pleural effusion. Heart: Coronary arteries show extensive atherosclerotic calcifications. No cardiomegaly. No pericardial effusion. Lymph nodes: Unremarkable. No enlarged lymph nodes. Vasculature: Thoracic aorta shows atherosclerotic calcifications Ascending thoracic aorta aneurysm shows up to 4.0 cm anterior-posterior diameter as measured on sagittal image 79. Bones/joints: Intervertebral disc spaces show narrowing with endplate irregularity and osteophytes. No acute fracture. Soft tissues: Unremarkable. Gallbladder is surgically absent. Pancreas shows nonspecific diffuse atrophy. IMPRESSION: No acute findings. Extensive coronary artery atherosclerotic calcifications Ascending thoracic aorta aneurysm. Follow-up exam is recommended PAGE 1 Signed Report (CONTINUED) Name: ERIKA BROWN [facility] : 1940 Age/S: 82 / M [address] [place] [address] Unit #: [id number] Loc: [place] [address] Phys: Maged Oakley MD Acct: [id number] Dis Date: Status: ADM IN PHONE #: [phone] Exam Date: 10/01/2022 1140 FAX #: [phone] Reason: CAD, pre op eval EXAMS: CPT CODE: [id number] CT CHEST W/O CONTRAST 87085 (Continued) at 1226 Reported and signed by: Jonh Garza M.D. CC: Henrique Falcon; Maged Oakley MD; Floyd Mccarthy MD Technologist:Margaret Lester, RT(R)(CT); . CTDI: DLP: Trnscb Date/Time: 10/01/2022 (1225) pedro [email or web address] Orig Print D/T: S: 10/01/2022 () PAGE 2 Signed Report- DUP EXTRACRANIAL DAMIAN 2022-10-01 00:00:00 [facility] : 1940 Sex: M Name: ERIKA BROWN [facility] : 1940 Age/S: 82 / M [address] [place] [address] Blvd Unit #: [id number]: [place] [address] Phys: Maged Oakley MD Acct: [id number] Dis Date: Status: ADM IN PHONE #: [phone] Exam Date: 10/01/2022 1233 FAX #: [phone] Reason: r/o carotid stenosis EXAMS: CPT CODE: [id number] DUP EXTRACRANIAL DAMIAN [id number] PROCEDURE INFORMATION: Exam: US Duplex Bilateral Extracranial Arteries; Complete; Carotid Arteries Exam date and time: 10/01/2022 11:49 AM Age: 82 years old Clinical indication: Screening exam; Patient HX: Cardiac surgery pre op; Additional info: R/O carotid stenosis TECHNIQUE: Imaging protocol: Real-time duplex ultrasound scan of the bilateral extracranial arteries combining lara scale, color Doppler and spectral waveform analysis with image documentation. Complete exam. Exam focused on the carotid arteries. COMPARISON: CT CHEST W/O CONTRAST 1:39 AM FINDINGS: Right common carotid artery: No occlusion or stenosis. Waveforms are normal. Right internal carotid artery: No occlusion or stenosis. Waveforms are normal. Right ICA/CCA ratio: Within normal limits. Right external carotid artery: No stenosis in the origin. Right vertebral artery: Antegrade flow. Left common carotid artery: No occlusion or stenosis. Waveforms are normal. Left internal carotid artery: No occlusion or stenosis. Waveforms are normal. Left ICA/CCA ratio: Within normal limits. Left external carotid artery: No stenosis in the origin. Left vertebral artery: Antegrade flow. IMPRESSION: No flow-limiting proximal internal carotid arterial stenosis. REFERENCES: The degree of internal carotid artery stenosis is based on criteria defined by the IAC Vascular Testing criteria.Normal is no stenosis. Mild is less than 50% stenosis. Moderate is 50- 69% stenosis. Severe is greater than 69% stenosis to near occlusion. Near occlusion is a markedly narrowed lumen. Total occlusion is no detectable patent lumen. at 12 40 Reported and signed by: Nathaniel Mercado M.D. PAGE 1 Signed Report (CONTINUED) Name: AR[place] BROWN [place] : 1940 Age/S: 82 / M [address] [place] [address] Blvd Unit #: [id number] Loc: [place] [address] Phys: Maged Oakley MD Acct: [id number] Dis Date: Status: ADM IN PHONE #: [phone] Exam Date: 10/01/2022 1233 FAX #: [phone] Reason: r/o carotid stenosis EXAMS: CPT CODE: [id number] DUP EXTRACRANIAL DAMIAN 77736 (Continued) CC: Henrique Prieto DO; Maged OakleyMD; Floyd Mccarthy MD Technologist: Miley Jean RDMS(AB)(OB) Trnscb Date/Time: 10/01/2022 (1239) [email or web address] Orig Print D/T: S: 10/01/2022 (1240) Probe: PAGE 2 Signed Report- DUP VEIN DAMIAN 2022-10-01 00:00:00 [facility] : 1940 Sex: M Name: ERIKA BROWN [facility] [place] : 1940 Age/S: 82 / M [address] [place] [address] Blvd Unit #: [id number] Loc: [place] [address] Phys: Maged Oakley MD Acct: [id number] Dis Date: Status: ADM IN PHONE #: [phone] Exam Date: 10/01/2022 1233 FAX #: [phone] Reason: vein mapping and marking EXAMS: CPT CODE: [id number] DUP VEIN DAMIAN 30725 PROCEDURE INFORMATION: Exam: US Duplex Lower Extremity Veins; Vein mapping Exam date and time: 10/01/2022 11:58 AM Age: 82 years old Clinical indication: Screening exam; Cardiac surgery pre op; Additional info: Vein mapping and marking TECHNIQUE: Imaging protocol: Real-time duplex ultrasound of the extremities with 2-D laar scale, color Doppler flow and spectral waveform analysis including responses to compression and other maneuvers (when performed) with image documentation. Complete exam focused on the bilateral lower extremity veins for vein mapping. COMPARISON: No relevant prior studies available. FINDINGS: Right superficial veins: Normal Doppler waveforms. Normal compressibility. Greater saphenous vein is patent. Right great saphenous vein-upper thigh: 4.1 mm Right great saphenous vein-mid thigh: 3.1 mm Right great saphenous vein-lower thigh: 2.9 mmRight great saphenous vein-upper le.4 mm Right great saphenous vein-mid le.1 mm Right great saphenous vein-lower le.9 mm Left superficial veins: Normal Doppler waveforms. Normal compressibility. Greater saphenous vein is patent. Left great saphenous vein- upper thigh: 4.5 mm Left great saphenous vein-mid thigh: 2.7 mm Left great saphenous vein-lower thigh: 2.7 mm Left great saphenous vein-upper le.9 mm Left great saphenous vein-mid le.7 mm Left great saphenous vein-lower le.7mm Soft tissues: Unremarkable. IMPRESSION: Greater saphenous vein is patent. Vein mapping as described. at 1241 Reported and signed by: Jonh Garza M.D. 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 Lab Interpretation Normal (test code = 30834-7) [id number] 03:07:17 Test Item Value Reference Range Interpretation Comments NT-proBNP (test code = 149 pg/mL <=450 3024418750) KHADRA (test code = KHADRA) Biotin has been reported to cause a negative bias, interpret results relative to patient's use of biotin. Lab Interpretation (test Normal code = 19404-1) [facility] THRMPLAS [id number] 03:03:18 Test Item Value Reference Range Interpretation Comments APTT Patient (test 25 See_Comment [Automat ed code = 3173-2) message] The system which generated this result transmitted reference range : 23 - 38 Seconds . The reference range was not used to interpr et this result as normal/abnormal . KHADRA (test code = KHADRA) The [facility] patient population mean normal value for aPTT is 30 seconds. Lab Interpretation Normal (test code = 70290-9) [facility] MET[facility]OLIC PANEL (76668)2022-08-28 03:02:17 Test Item Value Reference Range Interpretation Comments NA (test code = 136 mmol/L 135-145 9376043647) K (test code = 5.2 mmol/L 3.5-5.0 H 9059774128) CL (test code = 99 mmol/L 98-108 4260507297) CO2 TOTAL (test code = 27 mmol/L 23-31 9103200344) AGAP (test code = 10 2-16 3363380468) BUN (test code = 36 mg/dL 7-23 H 9455440461) GLUCOSE (test code = 288 mg/dL 70-110 H 0047475144) CREATININE (test code = 1.97 mg/dL 0.60-1.25 H 3694553953) TOTAL BILI (test code = 0.8 mg/dL 0.1-1.2 6191861731) CALCIUM (test code = 9.0 mg/dL 8.6-10.6 5262528446) T PROTEIN (test code = 7.1 g/dL 6.3-8.2 0732445689) ALBUMIN (test code = 4.0 g/dL 3.5-5.0 8191740312) ALK PHOS (test code = 80 U/L 34-122 2482852295) ALTv (test code = 25 U/L 5-50 1742-6) AST(SGOT) (test code = 22 U/L 13-40 5835756806) eGFR (test code = 32.8 mL/min/1.73m2 5842485922) KHADRA (test code = KHADRA) Association of [...] tests). Lab Interpretation Abnormal (test code = 22238-7) [facility] Hospital[facility]th[facility]bin Time / [id number] 03:01:16 Test Item Value Reference Range Interpretation Comments PROTIME PATIENT (test 13.3 See_Comment [Auto mated message] code = 5964-2) The system tinyclues generated this result transmitted ref erence range: 12.0 - 1 4.7 Seconds. The re ference range was not u sed to interpret this result as normal/abnor mal. INR (test code = 6301-6) 1.1 Nor mal INR <1.1; Warfarin Therap eutic range 2.0 to 3. 0 or 2.5 to 3.5, dep ending upon the indica tions. Lab Interpretation (test Normal code = 90307-5) [facility] WITH [id number] 02:52:37 Test Item Value Reference Range Interpretation Comments WBC (test code = 9.75 See_Comment [Automated message] 0190-2) The system [employer] generated this result transmitted ref erence range: 4.20 - 1 0.70 10*3/?L. The re ference range was not u sed to interpret this result as normal/abnor mal. RBC (test code = 4.60 See_Comment [Automated message] 129-8) The system [employer] generated this result transmitted ref erence range: [...] RDW-SD (test code 46.9 fL 38.5-51.6 = 97640-2) RDW-CV (test code 14.6 % 12.1-15.4 = 788-0) PLT (test code = 203 See_Comment [Automated message] 227-3) The system [employer] generated this result transmitted ref erence range: 150 - 32 8 10*3/?L. The re ference range was not u sed to interpret this result as normal/abnor mal. MPV (test code = 10.0 fL 9.8-13.0 82360-4) NRBC/100 WBC (test 0.0 See_Comment [Automat ed message] code = 6615992473) The [employer] which generated this result transmitted ref erence range: 0.0 - 10 .0 /100 WBCs. The refer ence range was not u sed to interpret this result as normal/abnor mal. NRBC x10^3 (test See_Comment [Automated message] code = 1258271920) The syste m which generated this result transmitted ref erence range: 10*3/?L. The reference range was not used to interpr et this result as normal/abnormal . GRAN MAT (NEUT) % 70.9 % (test code = 770-8) IMM GRAN % (test 0.60 % code = 1110600056) LYMPH % (test code 14.9 % = 736-9) MONO % (test code 10.2 % = 5905-5) EOS % (test code = 2.8 % 713-8) BASO % (test code 0.6 % = 706-2) GRAN MAT 6.92 10*3/uL 1.99-6.95 x10^3(ANC) (test code = 0378246931) IMM GRAN x10^3 0.06 10*3/uL 0.00-0.06 (test code = 0859280629) LYMPH x10^3 (test 1.45 10*3/uL 1.09-3.23 code = 731-0) MONO x10^3 (test 0.99 10*3/uL 0.36-1.02 code = 742-7) EOS x10^3 (test 0.27 10*3/uL 0.06-0.53 code = 711-2) BASO x10^3 (test 0.06 10*3/uL 0.01-0.09 code = 704-7) [facility] Aizetzd6051-01-09 02:40:00 Test Item Value Reference Range Interpretation Comments ABO & RH (test code = 20) A Negative IAT (test code = 1185) Negative [facility] Notes Date/Time Note Provider Source 2022-10-09 [facility] 11:30:00-00:00 [facility] ([facility]) Hospitalist Progress Note REPORT#:[id number] REPORT STATUS: Signed DATE:10/09/22 TIME: 1130 PATIENT: ERIKA BROWN UNIT #: [id number] ROOM/BED: [place] [address] : 41 AGE: 82 SEX: M ATTEND: Floyd Mccarthy MD ADM AUTHOR: Floyd Mccarthy MD * ALL edits or amendments must be made on the el [employer]ronic/computer document * Subjective Chief complaint: no cp no sob. Objective General VS/I O: Vital Signs: Date Time Temp Pulse Resp B/P B/P Pulse O2 O2 F low FiO2 Mean Ox Delivery Rate 10/09 0733 97.9 80 19 160/75 0.0 98 Room air 10/09 0357 98.2 72 14 154/67 0.0 91 Room air 10/08 2343 98.2 84 14 165/72 0.0 94 Room air 10/08 1955 98.1 80 14 157/73 0.0 96 Room air 10/08 1544 97.7 65 17 146/66 0.0 92 10/08 1240 98.3 10/08 1231 72 36 150/70 100 10/08 1200 80 25 143/77 104 24 hour I O ending at 0700: 10/09 0700 10/08 1900 Intake Total 522 500 Output Total 1525 1200 Balance -1003 -700 Intake, Oral 522 500 Output, Urine 1525 1200 Patient 152.9 kg Weight Weight Standing scale Measurement Method PATIENT WEIGHT: Weight (lb): 337 Weight (oz): 1.39 Weight (kg): 152.900 Physical Exam General appearance: alert, awake Head/Eyes: atraumatic, EOMI, normal conjunctiva/ sclera, normocephalic ENT: moist mucosal membranes Neck: full range of motion, no bruit/NL carotids , no JVD Cardiovascular: normal heart sounds, regular rat e rhythm Respiratory: aerating well, clear to auscultatio n, symmetric expansion, no distress Abdomen: non-tender Genitourinary: urinary catheter Extremities: moves all, no cyanosis, no edema Neuro/CONTINUOUS MINER: alert, oriented X 3, normal speech, n o motor deficits, no sensory deficits Skin: intact, normal color, no rash Diagnosis, Assessment Plan Free Text DxA P Notes Free text DxA P notes: Assessment and Plan 1. CAD (coronary artery disease) -NSTEMI -Multi-vessel CAD with left main disease. -CVS consult -BB, ASA, Statin. -Heparin drip -Patient determined to be too high risk for CAB G Plan for PCI of LAD and RCA on 10/07- s/p PCI of left main (verbal report from marayna garcia) 2. HTN (hypertension) PRN labetalol continue with metoprolol Hold marlena due to ckd 3. DM type 2 (diabetes mellitus, type 2) with h yperglycemia Resume home Insulin. ISS. Adjsut home insulin a s needed. HGA1c 9.8 -NovoLog 40 units TID, Lantus 50 units at bedti me, Aggressive SS 4. CKD (chronic kidney disease) stage 4, GFR 15 -29 ml/min hold marlena. Monitor due to recent cath. 10/02 -creatinine increased to 2.8, monitor 10/03 nephrology consulted. Renal ultrasound wit h absent left kidney. 5. Chronic diastolic heart failure Chronic diastolic dysfuntion. LVEF 55-60% Currently compensated w/o acute exacerbation. CXR and [place] was normal per records. Furosemide 40 mg daily 6. BPH (benign prostatic hyperplasia) resume proscar and flomax 10/07- urology consulted as per renal request 7. Asthma stable 8. Gout stable resume allopurinol 9. Dyslipidemia resume lipitor 10. Cellulitis Continue with Augmentin from previous hospital 11. Hematoma , anterior RLE patient was upset and requested additional imag ing US ordered, confirmed hematoma s/p fall Morbid obesity BMI 49.8. Will need to fo llow-up outpatient with PCP for weight loss Resuscitation discussion: Discussed with: patient Code status: full code Disposition: per cards 10/06- PCI planned today. d/w cardiology 10/07 - s/p PCI today of left main. urology consu lted for urinary retention 10/08- transfer to the floor. dc home tomorow for staging of RCA. dispo per cards 10/09 - d/w cardiology team. ok to dc home today and outpt f/u for RCA stent. outpt rehcheck of renal fxn. need to dc home w/ [place] and f/u with urology Quality: Gen Med Crit Care VTE Prophylaxis VTE prophylaxis initiated: yes Current Medications Current medication review: I attest that the foregoing medication list in t he medical record is true, accurate, and complete to the best of my knowled ge. Advanced Care Plan 65 or Older Discussed with: patient Discussion included: living will (none), power of workers compensation defense attorney (none), code status ( full code) Electronically Signed by Floyd Mccarthy MD on 09/23 09/14 at 1131 RPT #:[id number] END OF REPORT 2022-10-09 [facility] 08:13:00-00:00 [facility] ([facility]) Cardiology Progress Note REPORT#:[id number] REPORT STATUS: Signed DATE:10/09/22 TIME: 812 PATIENT: ERIKA BROWN UNIT #: [id number] ROOM/BED: [address] : 41 AGE: 82 SEX: M ATTEND: Floyd Mccarthy MD ADM AUTHOR: Kathya Sorensen SENIOR TECHNICAL BUSINESS ANALYST * ALL edits or amendments must be made on the [employer]/better. document * Subjective Patient reports: No: complaints. Objective General VS/I O: 24 hour I O ending at 0700: 10/09 0700 10/08 1900 Intake Total 522 500 Output Total 1525 1200 Balance -1003 -700 Intake, Oral 522 500 Output, Urine 1525 1200 Patient 152.9 kg Weight Weight Standing scale Measurement Method Vital Signs: Date Time Temp Pulse Resp B/P B/P Pulse O2 O2 Flow FiO2 Mean Ox Delivery Rate 10/09 0733 36.6 80 19 160/75 0.0 98 Room air 10/09 0357 36.8 72 14 154/67 0.0 91 Room air 10/08 2343 36.8 84 14 165/72 0.0 94 Room air 10/08 1955 36.7 80 14 157/73 0.0 96 Room air 10/08 1544 36.5 65 17 146/66 0.0 92 10/08 1240 36.8 10/08 1231 72 36 150/70 100 10/08 1200 80 25 143/77 104 10/08 1130 68 23 154/81 110 96 10/08 1100 74 25 147/70 100 95 10/08 1000 81 20 149/76 105 95 10/08 0930 82 25 135/81 103 98 10/08 0900 84 18 142/70 101 97 PATIENT WEIGHT: Weight (lb): 337 Weight (oz): 1.39 Weight (kg): 152.900 Medications: Active Meds + DC'd Last 24 Hrs Insulin Glargine (Semglee) 55 UNIT BEDTIME SUBQ Mupirocin (BACTROBAN 2% 22 GM OINTMENT) 1 APPLIC BID NASAL Atropine Sulfate (ATROPINE SULFATE 0.1MG/ML SYR) 0.5 MG ASDIR PRN IV Sodium Chloride (SODIUM CHLORIDE 0.9%) 500 ML DIR PRN IV Insulin Human Lispro (HUMALOG) 17 UNIT TID MEALS SUBQ Sodium Chloride (SODIUM CHLORIDE 0.9%) 1,000 ML .Q20H IV Insulin Human Lispro (HUMALOG) 0 Q6HR SUBQ Clopidogrel Bisulfate (Plavix) 75 MG DAILY PO Dextrose/Water (DEXTROSE 10% IN WATER) 125 ML DIR PRN IV (CKD) Dextrose/Water (DEXTROSE 10% IN WATER) 250 ML DIR PRN IV (CKD) Glucagon (GLUCAGON) 1 MG ASDIR PRN IM Metoprolol Tartrate (LOPRESSOR) 25 MG BID PO Atorvastatin Calcium (LIPITOR) 40 MG 2100 PO Allopurinol (ZYLOPRIM) 100 MG DAILY PO Aspirin (ASPIRIN) 81 MG DAILY PO Escitalopram Oxalate (LEXAPRO) 10 MG DAILY PO Finasteride (PROSCAR) 5 MG DAILY PO Montelukast Sodium (SINGULAIR) 10 MG DAILY PO Nystatin (MYCOSTATIN 15 GM CREAM) 1 APPLIC BID T OPICAL Pregabalin (LYRICA) 75 MG TID PO Tamsulosin HCl (Flomax 0.4 mg) 0.4 MG DAILY PO Pantoprazole (PROTONIX) 40 MG AC BK PO Acetaminophen (TYLENOL) 650 MG Q4H PRN PRN PO Glucagon (GLUCAGON) 1 MG ASDIR PRN IM Labetalol HCl (LABETALOL HCL) 10 MG Q4H PRN PRN IV Ondansetron HCl (ZOFRAN) 4 MG Q4H PRN PRN IV Albuterol Sulfate (ALBUTEROL SULFATE) 1.25 MG RT Q6H PRN NEB Colchicine (COLCRYS) 0.6 MG DAILY PRN PRN PO Nitroglycerin (NITROSTAT) 0.4 MG Q5M PRN PRN SL Physical Exam General appearance: obese, alert, awake Neck: no JVD Cardiovascular: CV assessment: regular rate and rhythm Respiratory: decreased breath sounds, on oxygen, no distress Abdomen: non-tender Genitourinary: urinary catheter, urine Lower extremity: LE assessment: edema (trace), no edema Right groin site: ecchymosis, intact, no draina ge, no hematoma Neuro/CONTINUOUS MINER: alert Skin: rash (BLE) Psychiatry: normal affect, normal mood Results Findings/Data: Laboratory Tests 10/09 10/09 10/09 10/08 10/08 0605 0215 0020 1956 1731 Chemistry Sodium (134 - 147 mEq/L) 137 Potassium (3.4 - 5.0 mEq/L) 4.2 Chloride (100 - 108 mEq/L) 104 Carbon Dioxide (21 - 33 mEq/l) 27 Anion Gap (0 - 20) 10 BUN (7 - 18 mg/dL) 25 H Creatinine (0.6 - 1.3 mg/dL) 2.0 H Glomerular Filtr Rate (70 - 80) 32.9 L Glucose (70 - 110 mg/dL) 277 H POC Glucose (70 - 110 MG/DL) 203 H 237 H 230 H 197 H Calcium (8.0 - 10.5 mg/dL) 8.9 10/08 1248 Chemistry POC Glucose (70 - 110 MG/DL) 255 H Results: labs reviewed, vital signs reviewed, MR I results reviewed Telemetry Interpretation: sinus rhythm Diagnosis, Assessment Plan Plan discussed with: patient , spouse/partner, admitting physician, collaborating MD, nurse Free Text DxA P Notes Free Text DxA P Notes: 82 YO male with PMHx of CAD, [place] with prior PCI/D ES, HTN, DM, HLD, CHF, morbid obesity, CKD who was admitted at [facility] with chest pain ruled in for NSTEMI. LHC revealed multive ssel CAD including distal left main. The patient is transferred to this facility for CABG evaluation . 1. NSTEMI/Multivessel CAD * too high risk for CABG * [facility] severe distal LM ds, proximal LAD ds, douglas re ds in OM 99%, fills with collateral from the RCA, severe ds in the RCA wi th 50-60% ISR, R PDA 90% ds * s/p PCI with LIZA from the LM into the LAD * outpatient staged PCI of the RCA tentatively Thursday depending on his kidney function * continue DAPT, BB, statin * doing well post-op, no chest pain, right groin stable 2. Chronic CHF * BNP normal * echo preserved LvEF 3. Hypertension * continue metoprolol to 25 mg BID 4. Diabetes mellitus * manage per PCP 5. CKD * creat stable 2 today * nephrology following 6. Asthma DC home Outpatient follow-up with Dr. Raslan next 10/16/22. Repeat BMP 1-2 days prior to staged PCI to check kidney function Tentatively PCI to RCA 10/22/22Thursday dependi milan on his kidney function Patient educated on CAD meds (e-prescribed Plavi x, ASA, BB, statin, NTG) Treatment plan discussed with patient and his wi fe Tushar ([phone]) at 1241 RPT #:[id number] END OF REPORT 2022-10-08 [facility] 11:41:00-00:00 [facility] ([facility]) Hospitalist Progress Note REPORT#:[id number] REPORT STATUS: Signed DATE:10/08/22 TIME: 1141 PATIENT: ERIKA BROWN UNIT #: [id number] ROOM/BED: [place] [address] : 41 AGE: 82 SEX: M ATTEND: Floyd Mccarthy MD ADM AUTHOR: Floyd Mccarthy MD * ALL edits or amendments must be made on the [employer]/computer document * Subjective Chief complaint: no cp. no sob. Objective General VS/I O: Vital Signs: Date Time Temp Pulse Resp B/P B/P Pulse O2 O2 F low FiO2 Mean Ox Delivery Rate 10/08 0500 78 28 138/85 99 97 08/16 0430 72 20 141/70 98 92 /16 0400 97.8 / 0400 72 20 152/70 101 93 08/16 0331 68 20 148/66 95 95 08/16 0300 70 19 126/59 85 93 08/16 0230 69 21 143/67 96 95 08/16 0200 69 18 128/66 90 84 08/16 0130 69 22 125/68 92 90 08/16 0100 70 20 131/69 94 92 08/16 0030 71 21 125/58 83 92 08/16 0000 98.1 08/16 0000 72 23 123/63 87 93 08/15 2330 72 21 140/65 93 92 /15 2300 73 20 118/59 83 89 08/15 2230 70 20 117/56 80 89 08/15 2200 72 21 115/60 81 92 08/15 2130 81 26 141/75 101 95 08/15 2105 82 29 133/66 93 94 08/15 2030 77 20 110/55 77 93 08/15 1999 98.0 08/15 1999 78 18 105/52 73 91 08/15 1930 86 32 142/82 104 96 08/15 1900 86 37 149/103 120 95 08/15 1800 84 25 156/78 109 96 08/15 1730 74 20 142/84 105 94 08/15 1700 74 21 140/70 97 92 08/15 1630 78 29 139/88 105 96 08/15 1600 70 24 141/79 104 96 08/15 1548 75 32 96 08/15 1545 72 18 144/83 106 97 08/15 1540 73 24 98 08/15 1530 74 31 142/83 106 98 08/15 1527 73 23 149/76 102 98 08/15 1525 74 26 97 08/15 1510 70 27 98 08/15 1500 97.6 08/15 1455 70 24 97 08/15 1448 68 21 172/85 121 96 24 hour I O ending at 0700: 10/08 0700 08/15 1900 Intake Total 1000 400 Output Total 1400 2100 Balance -400 -1700 Intake, Oral 1000 400 Output, Urine 1400 2100 Patient 155 kg Weight Weight Bed scale Measurement Method PATIENT WEIGHT: Weight (lb): 341 Weight (oz): 11.46 Weight (kg): 155.000 Physical Exam General appearance: alert, awake Head/Eyes: atraumatic, EOMI, normal conjunctiva/ sclera, normocephalic ENT: moist mucosal membranes Neck: full range of motion, no bruit/NL carotids , no JVD Cardiovascular: normal heart sounds, regular rat e rhythm Respiratory: aerating well, clear to auscultatio n, symmetric expansion, no distress Abdomen: non-tender Genitourinary: urinary catheter Extremities: moves all, no cyanosis, no edema Neuro/CONTINUOUS MINER: alert, oriented X 3, normal speech, n o motor deficits, no sensory deficits Skin: intact, normal color, no rash Results Radiology data: Laboratory Tests 10/08/22 0354: [Embedded Image Not Available] 10/07/22 0455: [Embedded Image Not Available] Current Medications Sig/Juliann Start time Last Medication Dose Route Stop Time Status Admin Insulin Glargine 55 UNIT BEDTIME 10/07 2100 AC 10/07 SUBQ 11/06 205 2108 Mupirocin 1 APPLIC BID 10/07 2100 AC 10/08 NASAL 10/12 0901 0849 Atropine Sulfate 0.5 MG ASDIR PRN 10/07 1530 A C IV 11/06 1529 Sodium Chloride 1,000 ML .[id number] ONE 10/07 153 0 DC IV 10/08 0449 Sodium Chloride 500 ML ASDIR PRN 10/07 1530 AC IV 11/06 1529 Aspirin 0 .STK-MED ONE 10/07 1423 DC 10/07 .ROUTE 1433 Aspirin 0 .STK-MED ONE 10/07 1422 DC .ROUTE Clopidogrel Bisulfate 0 .STK-MED ONE 10/07 1421 DC 10/07 .ROUTE 1433 Ondansetron HCl 0 .STK-MED ONE 10/07 1346 DC .ROUTE 1353 Midazolam HCl 0 .STK-MED ONE 10/07 1342 DC .ROUTE 1353 Heparin Sodium/ 500 ML .STK-MED ONE 10/07 1338 DC 10/07 Sodium Chloride IV 1353 Heparin Sodium 0 .STK-MED ONE 10/07 1324 DC .ROUTE 1327 Fentanyl Citrate 0 .STK-MED ONE 10/07 1233 DC 0 10/07 .ROUTE 1327 Midazolam HCl 0 .STK-MED ONE 10/07 1233 DC 09/23 5 .ROUTE 1327 Heparin Sodium 0 .STK-MED ONE 10/07 1203 DC .ROUTE 1327 Heparin Sodium/ 1,000 ML .STK-MED ONE 10/07 120 3 DC 10/07 Sodium Chloride IV 1327 Heparin Sodium/ 500 ML .STK-MED ONE 10/07 1203 DC 10/07 Sodium Chloride IV 1327 Iopamidol 0 .STK-MED ONE 10/07 1203 DC 10/07 IV 1327 Lidocaine HCl 0 .STK-MED ONE 10/07 1203 DC 09/23 5 .ROUTE 1327 Nitroglycerin/ 250 ML .STK-MED ONE 10/07 1203 D C 10/07 Dextrose IV 1327 Insulin Human Lispro 17 UNIT TID MEALS 10/07 1 200 AC 10/08 SUBQ 11/06 1159 0848 Acetylcysteine 600 MG Q12HR 10/06 0946 DC 10/07 PO 10/07 2101 2107 Sodium Chloride 1,000 ML .Q20H 10/06 0815 AC IV 11/05 0814 0917 Insulin Human Lispro 0 Q6HR 10/04 1200 AC 10/07 SUBQ 11/03 1159 2325 Clopidogrel Bisulfate 75 MG DAILY 10/04 899 AC 10/08 PO 11/03 0859 0847 Dextrose/Water 125 ML ASDIR PRN 10/04 09 CKD IV 11/03 0859 Dextrose/Water 250 ML ASDIR PRN 10/04 09 CKD IV 11/03 0859 Glucagon 1 MG ASDIR PRN 10/04 09 AC IM 11/03 0859 Metoprolol Tartrate 25 MG BID 10/03 2100 AC PO 10/31 0859 0847 Atorvastatin Calcium 40 MG 2100 10/01 2100 AC 10/07 PO 10/31 2059 2107 Allopurinol 100 MG DAILY 10/01 899 AC 10/08 PO 10/31 0859 0848 Aspirin 81 MG DAILY 10/01 899 AC 10/08 PO 10/31 0859 0846 Escitalopram Oxalate 10 MG DAILY 10/01 899 AC 10/08 PO 10/31 0859 0846 Finasteride 5 MG DAILY 10/01 899 AC 10/08 PO 10/31 0859 0850 Montelukast Sodium 10 MG DAILY 10/01 899 AC PO 10/31 0859 0847 Nystatin 1 APPLIC BID 10/01 899 AC 10/08 TOPICAL 10/31 0859 0849 Pregabalin 75 MG TID 10/01 899 AC 10/08 PO 10/31 0859 0847 Tamsulosin HCl 0.4 MG DAILY 10/01 899 AC 10/08 PO 10/31 0859 0846 Pantoprazole 40 MG AC BK 10/01 0730 AC 10/08 PO 10/31 0729 0846 Acetaminophen 650 MG Q4H PRN PRN 10/01 0045 AC 10/07 PO 10/31 0044 1802 Glucagon 1 MG ASDIR PRN 10/01 0045 AC IM 10/31 0044 Labetalol HCl 10 MG Q4H PRN PRN 10/01 0045 AC IV 10/31 0044 Ondansetron HCl 4 MG Q4H PRN PRN 10/01 0045 AC 10/01 IV 10/31 0044 1534 Albuterol Sulfate 1.25 MG RTQ6H PRN 10/01 003 AC 10/06 NEB 10/31 0029 6 Colchicine 0.6 MG DAILY PRN PRN 10/01 29 AC PO 10/31 002 Nitroglycerin 0.4 MG Q5M PRN PRN 10/01 29 AC SL 10/31 0029 Laboratory Tests: 10/08 10/08 10/08 10/07 0813 0553 0354 2318 Chemistry Sodium (134 - 147 mEq/L) 139 Potassium (3.4 - 5.0 mEq/L) 4.5 Chloride (100 - 108 mEq/L) 105 Carbon Dioxide (21 - 33 mEq/l) 28 Anion Gap (0 - 20) 10 BUN (7 - 18 mg/dL) 23 H Creatinine (0.6 - 1.3 mg/dL) 1.7 H Glomerular Filtr Rate (70 - 80) 40.0 L Glucose (70 - 110 mg/dL) 164 H POC Glucose (70 - 110 MG/DL) 197 H 142 H 325 H Calcium (8.0 - 10.5 mg/dL) 9.0 Ionized Calcium Marco (1.09 - 1.30 MMOL/L) 1.17 Phosphorus (2.5 - 4.9 MG/DL) 3.3 Magnesium (1.80 - 2.40 mg/dL) 1.94 Hematology WBC (4.5 - 11.0 x10 3/uL) 7.7 RBC (4.00 - 5.60 x10 6/uL) 3.88 L Hgb (12.5 - 16.9 g/dL) 11.5 L Hct (37.5 - 50.7 %) 35.4 L MCV (81.0 - 99.0 fL) 91.2 MCH (27.0 - 33.0 pg) 29.6 MCHC (33.0 - 37.0 g/dL) 32.5 L RDW (11.5 - 14.5 %) 15.9 H Plt Count (150 - 400 x10 3/uL) 175 MPV (7.0 - 9.0 fL) 10.6 H Neut % (Auto) (56.0 - 77.0 %) 67.5 Lymph % (Auto) (14.0 - 32.0 %) 15.0 Fisher % (Auto) (4.8 - 9.0 %) 11.6 H Eos % (Auto) (0.3 - 3.7 %) 4.7 H Baso % (Auto) (0.0 - 2.0 %) 0.7 Neut # (Auto) (2.0 - 7.6 x10 3/uL) 5.16 Lymph # (Auto) (1.0 - 3.8 x10 3/uL) 1.15 Fisher # (Auto) (0.1 - 0.8 x10 3/uL) 0.89 H Eos # (Auto) (0.0 - 0.2 x10 3/uL) 0.36 H Baso # (Auto) (0.0 - 0.2 x10 3/uL) 0.05 Abs Immat Gran (auto) (0.00 - 0.03 x10 3/uL) 0. 04 H Add Manual Diff NO Immature Gran % (0.0 - 2.0 %) 0.5 Nucleated RBC % (0 - 0 %) 0.0 Nucleated RBCs # (Man) (0.0 - 0.1 x10 3/uL) 0.0 0 10/07 10/07 10/07 10/07 10/07 1750 1504 1416 1351 1320 Chemistry POC Glucose (70 - 110 MG/DL) 241 H 196 H Coagulation Activated Coag Time (74 - 137 SEC) 299 H 311 H 287 H Diagnosis, Assessment Plan Free Text DxA P Notes Free text DxA P notes: Assessment and Plan 1. CAD (coronary artery disease) -NSTEMI -Multi-vessel CAD with left main disease. -CVS consult -BB, ASA, Statin. -Heparin drip -Patient determined to be too high risk for CAB G Plan for PCI of LAD and RCA on 10/07- s/p PCI of left main (verbal report from maryana garcia) 2. HTN (hypertension) PRN labetalol continue with metoprolol Hold marlena due to ckd 3. DM type 2 (diabetes mellitus, type 2) with h yperglycemia Resume home Insulin. ISS. Adjsut home insulin a s needed. HGA1c 9.8 -NovoLog 40 units TID, Lantus 50 units at bedti me, Aggressive SS 4. CKD (chronic kidney disease) stage 4, GFR 15 -29 ml/min hold marlena. Monitor due to recent cath. 10/02 -creatinine increased to 2.8, monitor 10/03 nephrology consulted. Renal ultrasound wit h absent left kidney. 5. Chronic diastolic heart failure Chronic diastolic dysfuntion. LVEF 55-60% Currently compensated w/o acute exacerbation. CXR and [place] was normal per records. Furosemide 40 mg daily 6. BPH (benign prostatic hyperplasia) resume proscar and flomax 10/07- urology consulted as per renal request 7. Asthma stable 8. Gout stable resume allopurinol 9. Dyslipidemia resume lipitor 10. Cellulitis Continue with Augmentin from previous hospital 11. Hematoma , anterior RLE patient was upset and requested additional imag ing US ordered, confirmed hematoma s/p fall Morbid obesity BMI 49.8. Will need to fo llow-up outpatient with PCP for weight loss Resuscitation discussion: Discussed with: patient Code status: full code Disposition: per cards 10/06- PCI planned today. d/w cardiology 10/07 - s/p PCI today of left main. urology consu lted for urinary retention 10/08- transfer to the floor. dc home tomorow for staging of RCA. dispo per cards Quality: Gen Med Crit Care VTE Prophylaxis VTE prophylaxis initiated: yes Current Medications Current medication review: I attest that the foregoing medication list in t he medical record is true, accurate, and complete to the best of my knowled ge. Advanced Care Plan 65 or Older Discussed with: patient Discussion included: living will (none), power of workers compensation defense attorney (none), code status ( full code) Electronically Signed by Floyd Mccarthy MD on 09/23 08/15 at 1142 RPT #:[id number] END OF REPORT 2022-10-08 [facility] 09:47:00-00:00 [facility] ([facility]) Cardiology Progress Note REPORT#:[id number] REPORT STATUS: Signed DATE:10/08/22 TIME: 946 PATIENT: ERIKA BROWN UNIT #: [id number] ROOM[address]: [address] : [address] AGE: 82 SEX: M ATTEND: Floyd Mccarthy MD ADM AUTHOR: Kathya Sorensen SENIOR TECHNICAL BUSINESS ANALYST * ALL edits or amendments must be made on the [employer]/computer document * Subjective Patient reports: No: complaints. Review of Systems Respiratory: Denies: SOB. Cardiovascular: Reports: edema. Denies: chest pain, orthopnea. Objective General VS/I O: 24 hour I O ending at 0700: 10/08 0700 10/07 1900 Intake Total 1000 400 Output Total 1400 2100 Balance -400 -1700 Intake, Oral 1000 400 Output, Urine 1400 2100 Patient 155 kg Weight Weight Bed scale Measurement Method Vital Signs Date Temp Pulse Resp B/P B/P Mean Pulse Ox FiO2 10/07-10/08 36.4-36.7 68-86 18-37 105-172/52-10 3 73-121 84-98 PATIENT WEIGHT: Weight (lb): 341 Weight (oz): 11.46 Weight (kg): 155.000 Medications: Active Meds + DC'd Last 24 Hrs Insulin Glargine (Semglee) 55 UNIT BEDTIME SUBQ Mupirocin (BACTROBAN 2% 22 GM OINTMENT) 1 APPLIC BID NASAL Atropine Sulfate (ATROPINE SULFATE 0.1MG/ML SYR) 0.5 MG ASDIR PRN IV Sodium Chloride (SODIUM CHLORIDE 0.9%) 1,000 ML .[id number] ONE IV (DC) Sodium Chloride (SODIUM CHLORIDE 0.9%) 500 ML DIR PRN IV Aspirin (ASPIRIN) 0 .STK-MED ONE .ROUTE (DC) Aspirin (ASPIRIN) 0 .STK-MED ONE .ROUTE (DC) Clopidogrel Bisulfate (CLOPIDOGREL BISULFATE) 0 .STK-MED ONE .ROUTE (DC) Ondansetron HCl (ZOFRAN) 0 .STK-MED ONE .ROUTE ( DC) Midazolam HCl (VERSED) 0 .STK-MED ONE .ROUTE (DC ) Heparin Sodium/Sodium Chloride (HEPARIN 1,000 UN ITS/NS 500ML) 500 ML .STK- MED ONE IV (DC) Heparin Sodium (HEPARIN SODIUM) 0 .STK-MED ONE . ROUTE (DC) Fentanyl Citrate (SUBLIMAZE) 0 .STK-MED ONE .ROU TE (DC) Midazolam HCl (VERSED) 0 .STK-MED ONE .ROUTE (DC ) Heparin Sodium (HEPARIN SODIUM) 0 .STK-MED ONE . ROUTE (DC) Heparin Sodium/Sodium Chloride (HEPARIN 2,000 UN ITS/NS 1,000mL) 1,000 ML .STK-MED ONE IV (DC) Heparin Sodium/Sodium Chloride (HEPARIN 1,000 UN ITS/NS 500ML) 500 ML .STK- MED ONE IV (DC) Iopamidol (ISOVUE-370 100ML) 0 .STK-MED ONE IV ( DC) Lidocaine HCl (LIDOCAINE HCL/PF) 0 .STK-MED ONE .ROUTE (DC) Nitroglycerin/Dextrose (NITROGLYCERIN 50,000MCG/ D5W 250ML) 250 ML .STK-MED ONE IV (DC) Insulin Human Lispro (HUMALOG) 17 UNIT TID MEAL S SUBQ Acetylcysteine (N-ACETYLCYSTEINE) 600 MG Q12HR P O (DC) Sodium Chloride (SODIUM CHLORIDE 0.9%) 1,000 ML .Q20H IV Insulin Human Lispro (HUMALOG) 0 Q6HR SUBQ Clopidogrel Bisulfate (Plavix) 75 MG DAILY PO Dextrose/Water (DEXTROSE 10% IN WATER) 125 ML DIR PRN IV (CKD) Dextrose/Water (DEXTROSE 10% IN WATER) 250 ML DIR PRN IV (CKD) Glucagon (GLUCAGON) 1 MG ASDIR PRN IM Metoprolol Tartrate (LOPRESSOR) 25 MG BID PO Atorvastatin Calcium (LIPITOR) 40 MG 2100 PO Allopurinol (ZYLOPRIM) 100 MG DAILY PO Aspirin (ASPIRIN) 81 MG DAILY PO Escitalopram Oxalate (LEXAPRO) 10 MG DAILY PO Finasteride (PROSCAR) 5 MG DAILY PO Montelukast Sodium (SINGULAIR) 10 MG DAILY PO Nystatin (MYCOSTATIN 15 GM CREAM) 1 APPLIC BID T OPICAL Pregabalin (LYRICA) 75 MG TID PO Tamsulosin HCl (Flomax 0.4 mg) 0.4 MG DAILY PO Pantoprazole (PROTONIX) 40 MG AC BK PO Acetaminophen (TYLENOL) 650 MG Q4H PRN PRN PO Glucagon (GLUCAGON) 1 MG ASDIR PRN IM Labetalol HCl (LABETALOL HCL) 10 MG Q4H PRN PRN IV Ondansetron HCl (ZOFRAN) 4 MG Q4H PRN PRN IV Albuterol Sulfate (ALBUTEROL SULFATE) 1.25 MG RT Q6H PRN NEB Colchicine (COLCRYS) 0.6 MG DAILY PRN PRN PO Nitroglycerin (NITROSTAT) 0.4 MG Q5M PRN PRN SL Physical Exam General appearance: obese, alert, awake, oriente d Neck: no JVD Cardiovascular: CV assessment: regular rate and rhythm Respiratory: decreased breath sounds, on oxygen, no distress Abdomen: non-tender Genitourinary: urinary catheter, urine Lower extremity: LE assessment: edema (trace) Right groin site: intact, no drainage, no hemat nicolasa Neuro/CONTINUOUS MINER: alert Skin: rash (BLE) Psychiatry: normal affect, normal mood Results Findings/Data: Laboratory Tests 10/08 10/08 10/08 10/07 10/07 0813 0553 0354 2318 1750 Chemistry Sodium (134 - 147 mEq/L) 139 Potassium (3.4 - 5.0 mEq/L) 4.5 Chloride (100 - 108 mEq/L) 105 Carbon Dioxide (21 - 33 mEq/l) 28 Anion Gap (0 - 20) 10 BUN (7 - 18 mg/dL) 23 H Creatinine (0.6 - 1.3 mg/dL) 1.7 H Glomerular Filtr Rate (70 - 80) 40.0 L Glucose (70 - 110 mg/dL) 164 H POC Glucose (70 - 110 MG/DL) 197 H 142 H 325 H 241 H Calcium (8.0 - 10.5 mg/dL) 9.0 Ionized Calcium Marco (1.09 - 1.30 1.17 MMOL/L) Phosphorus (2.5 - 4.9 MG/DL) 3.3 Magnesium (1.80 - 2.40 mg/dL) 1.94 10/07 10/07 1504 1054 Chemistry POC Glucose (70 - 110 MG/DL) 196 H 198 H Laboratory Tests 10/07 10/07 10/07 1416 1351 1320 Coagulation Activated Coag Time (74 - 137 SEC) 299 H 311 H 287 H Laboratory Tests 10/08 0354 Hematology WBC (4.5 - 11.0 x10 3/uL) 7.7 RBC (4.00 - 5.60 x10 6/uL) 3.88 L Hgb (12.5 - 16.9 g/dL) 11.5 L Hct (37.5 - 50.7 %) 35.4 L MCV (81.0 - 99.0 fL) 91.2 MCH (27.0 - 33.0 pg) 29.6 MCHC (33.0 - 37.0 g/dL) 32.5 L RDW (11.5 - 14.5 %) 15.9 H Plt Count (150 - 400 x10 3/uL) 175 MPV (7.0 - 9.0 fL) 10.6 H Neut % (Auto) (56.0 - 77.0 %) 67.5 Lymph % (Auto) (14.0 - 32.0 %) 15.0 Fisher % (Auto) (4.8 - 9.0 %) 11.6 H Eos % (Auto) (0.3 - 3.7 %) 4.7 H Baso % (Auto) (0.0 - 2.0 %) 0.7 Neut # (Auto) (2.0 - 7.6 x10 3/uL) 5.16 Lymph # (Auto) (1.0 - 3.8 x10 3/uL) 1.15 Fisher # (Auto) (0.1 - 0.8 x10 3/uL) 0.89 H Eos # (Auto) (0.0 - 0.2 x10 3/uL) 0.36 H Baso # (Auto) (0.0 - 0.2 x10 3/uL) 0.05 Abs Immat Gran (auto) (0.00 - 0.03 x10 3/uL) 0. 04 H Add Manual Diff NO Immature Gran % (0.0 - 2.0 %) 0.5 Nucleated RBC % (0 - 0 %) 0.0 Nucleated RBCs # (Man) (0.0 - 0.1 x10 3/uL) 0.0 0 Laboratory Tests 10/08 0354 Chemistry Magnesium (1.80 - 2.40 mg/dL) 1.94 Results: labs reviewed, vital signs reviewed, [facility] personally rev'd Telemetry Interpretation: Sinus rhythm Diagnosis, Assessment Plan Plan discussed with: patient, collaborating MD, nurse Free Text DxA P Notes Free Text DxA P Notes: 82 YO male with PMHx of CAD, [place] with prior PCI/D ES, HTN, DM, HLD, CHF, morbid obesity, CKD who was admitted at [facility] with chest pain ruled in for NSTEMI. LHC revealed multive ssel CAD including distal left main. The patient is transferred to this facility for CABG evaluation . 1. NSTEMI/Multivessel CAD * too high risk for CABG * [facility] severe distal LM ds, proximal LAD ds, douglas re ds in OM 99%, fills with collateral from the RCA, severe ds in the RCA wi th 50-60% ISR, R PDA 90% ds * s/p PCI with LIZA from the LM into the LAD * outpatient staged PCI of t he RCA in fews days depending on his kidney function * continue DAPT, BB, statin * doing well post-op, no chest pain, right groin stable 2. Chronic CHF * BNP normal * echo preserved LvEF 3. Hypertension * continue metoprolol to 25 mg BID 4. Diabetes mellitus * manage per PCP 5. CKD * creat stable at 1.7 today * nephrology following 6. Asthma Transfer to floor, mobilize OOB, keep for 1 more night, anticipate discharge home in a.m. Mobilize out of bed Treatment plan discussed with patient and his wi nettie Tushar ([phone]) at [phone] RPT #:[id number] END OF REPORT 2022-10-08 [facility] 08:10:00-00:00 [facility] ([facility]) Nephrology Progress Note REPORT#:[id number] REPORT STATUS: Signed DATE:10/08/22 TIME: 08 PATIENT: ERIKA BROWN UNIT #: [id number] ROOM/BED: [place] [address] : 41 AGE: 82 SEX: M ATTEND: Floyd Mccarthy MD ADM AUTHOR: Jaz Gan MD * ALL edits or amendments must be made on the [employer]/computer document * Subjective Chief complaint: follow up of CKD, ARF, Chest pain Objective General VS/I O: Vital Signs: Date Time Temp Pulse Resp B/P B/P Pulse O2 O2 F low FiO2 Mean Ox Delivery Rate 10/08 0500 78 28 138/85 99 97 10/08 0430 72 20 141/70 98 92 10/08 0400 97.8 10/08 0400 72 20 152/70 101 93 10/08 0331 68 20 148/66 95 95 08/16 0300 70 19 126/59 85 93 08/16 0230 69 21 143/67 96 95 08/16 0200 69 18 128/66 90 84 08/16 0130 69 22 125/68 92 90 08/16 0100 70 20 131/69 94 92 08/16 0030 71 21 125/58 83 92 08/16 0000 98.1 08/16 0000 72 23 123/63 87 93 08/15 2330 72 21 140/65 93 92 08/15 2300 73 20 118/59 83 89 08/15 2230 70 20 117/56 80 89 08/15 2200 72 21 115/60 81 92 08/15 2130 81 26 141/75 101 95 08/15 2105 82 29 133/66 93 94 08/15 2030 77 20 110/55 77 93 08/15 1999 98.0 08/15 1999 78 18 105/52 73 91 08/15 1930 86 32 142/82 104 96 08/15 1900 86 37 149/103 120 95 08/15 1800 84 25 156/78 109 96 08/15 1730 74 20 142/84 105 94 08/15 1700 74 21 140/70 97 92 08/15 1630 78 29 139/88 105 96 08/15 1600 70 24 141/79 104 96 08/15 1548 75 32 96 08/15 1545 72 18 144/83 106 97 08/15 1540 73 24 98 08/15 1530 74 31 142/83 106 98 08/15 1527 73 23 149/76 102 98 08/15 1525 74 26 97 08/15 1510 70 27 98 08/15 1500 97.6 08/15 1455 70 24 97 08/15 1448 68 21 172/85 121 96 24 hour I O ending at 0700: 0816 0700 08/15 1900 Intake Total 1000 400 Output Total 1400 2100 Balance -400 -1700 Intake, Oral 1000 400 Output, Urine 1400 2100 Patient 155 kg Weight Weight Bed scale Measurement Method PATIENT WEIGHT: Weight (lb): 341 Weight (oz): 11.46 Weight (kg): 155.000 Medications Active Meds + DC'd Last 24 Hrs Insulin Glargine (Semglee) 55 UNIT BEDTIME SUBQ Mupirocin (BACTROBAN 2% 22 GM OINTMENT) 1 APPLIC BID NASAL Atropine Sulfate (ATROPINE SULFATE 0.1MG/ML SYR) 0.5 MG ASDIR PRN IV Sodium Chloride (SODIUM CHLORIDE 0.9%) 1,000 ML .[id number] ONE IV (DC) Sodium Chloride (SODIUM CHLORIDE 0.9%) 500 ML A SDIR PRN IV Aspirin (ASPIRIN) 0 .STK-MED ONE .ROUTE (DC) Aspirin (ASPIRIN) 0 .STK-MED ONE .ROUTE (DC) Clopidogrel Bisulfate (CLOPIDOGREL BISULFATE) 0 .STK-MED ONE .ROUTE (DC) Ondansetron HCl (ZOFRAN) 0 .STK-MED ONE .ROUTE ( DC) Midazolam HCl (VERSED) 0 .STK-MED ONE .ROUTE (DC ) Heparin Sodium/Sodium Chloride (HEPARIN 1,000 UN ITS/NS 500ML) 500 ML .STK- MED ONE IV (DC) Heparin Sodium (HEPARIN SODIUM) 0 .STK-MED ONE . ROUTE (DC) Fentanyl Citrate (SUBLIMAZE) 0 .STK-MED ONE .ROU TE (DC) Midazolam HCl (VERSED) 0 .STK-MED ONE .ROUTE (DC ) Heparin Sodium (HEPARIN SODIUM) 0 .STK-MED ONE . ROUTE (DC) Heparin Sodium/Sodium Chloride (HEPARIN 2,000 UN ITS/NS 1,000mL) 1,000 ML .STK-MED ONE IV (DC) Heparin Sodium/Sodium Chloride (HEPARIN 1,000 UN ITS/NS 500ML) 500 ML .STK- MED ONE IV (DC) Iopamidol (ISOVUE-370 100ML) 0 .STK-MED ONE IV ( DC) Lidocaine HCl (LIDOCAINE HCL/PF) 0 .STK-MED ONE .ROUTE (DC) Nitroglycerin/Dextrose (NITROGLYCERIN 50,000MCG/ D5W 250ML) 250 ML .STK-MED ONE IV (DC) Insulin Human Lispro (HUMALOG) 17 UNIT TID MEALS SUBQ Insulin Human Lispro (HUMALOG) 15 UNIT TID MEALS SUBQ (DC) Acetylcysteine (N-ACETYLCYSTEINE) 600 MG Q12HR P O (DC) Sodium Chloride (SODIUM CHLORIDE 0.9%) 1,000 ML .Q20H IV Insulin Human Lispro (HUMALOG) 0 Q6HR SUBQ Clopidogrel Bisulfate (Plavix) 75 MG DAILY PO Dextrose/Water (DEXTROSE 10% IN WATER) 125 ML DIR PRN IV (CKD) Dextrose/Water (DEXTROSE 10% IN WATER) 250 ML DIR PRN IV (CKD) Glucagon (GLUCAGON) 1 MG ASDIR PRN IM Metoprolol Tartrate (LOPRESSOR) 25 MG BID PO Atorvastatin Calcium (LIPITOR) 40 MG 2100 PO Insulin Glargine (Semglee) 50 UNIT BEDTIME SUBQ (DC) Allopurinol (ZYLOPRIM) 100 MG DAILY PO Aspirin (ASPIRIN) 81 MG DAILY PO Escitalopram Oxalate (LEXAPRO) 10 MG DAILY PO Finasteride (PROSCAR) 5 MG DAILY PO Montelukast Sodium (SINGULAIR) 10 MG DAILY PO Nystatin (MYCOSTATIN 15 GM CREAM) 1 APPLIC BID T OPICAL Pregabalin (LYRICA) 75 MG TID PO Tamsulosin HCl (Flomax 0.4 mg) 0.4 MG DAILY PO Pantoprazole (PROTONIX) 40 MG AC BK PO Acetaminophen (TYLENOL) 650 MG Q4H PRN PRN PO Glucagon (GLUCAGON) 1 MG ASDIR PRN IM Labetalol HCl (LABETALOL HCL) 10 MG Q4H PRN PRN IV Ondansetron HCl (ZOFRAN) 4 MG Q4H PRN PRN IV Albuterol Sulfate (ALBUTEROL SULFATE) 1.25 MG RT Q6H PRN NEB Colchicine (COLCRYS) 0.6 MG DAILY PRN PRN PO Nitroglycerin (NITROSTAT) 0.4 MG Q5M PRN PRN SL Physical Exam General appearance: alert, awake, oriented Head/eyes: atraumatic, normocephalic ENT: moist mucous membranes Neck: supple/no meningismus, no JVD Cardiovascular: no murmur, no rub Respiratory: aerating well, clear to auscultatio n Abdomen: non-tender, soft Genitourinary: no bladder distention Extremities: swelling Neuro/CONTINUOUS MINER: alert, oriented X 3 Results Findings/Data: Laboratory Tests 10/08 10/08 10/07 10/07 10/07 0553 0354 2318 1750 1504 Chemistry Sodium (134 - 147 mEq/L) 139 Potassium (3.4 - 5.0 mEq/L) 4.5 Chloride (100 - 108 mEq/L) 105 Carbon Dioxide (21 - 33 mEq/l) 28 Anion Gap (0 - 20) 10 BUN (7 - 18 mg/dL) 23 H Creatinine (0.6 - 1.3 mg/dL) 1.7 H Glomerular Filtr Rate (70 - 80) 40.0 L Glucose (70 - 110 mg/dL) 164 H POC Glucose (70 - 110 MG/DL) 142 H 325 H 241 H 196 H Calcium (8.0 - 10.5 mg/dL) 9.0 Ionized Calcium Marco (1.09 - 1.30 1.17 MMOL/L) Phosphorus (2.5 - 4.9 MG/DL) 3.3 Magnesium (1.80 - 2.40 mg/dL) 1.94 10/07 1054 Chemistry POC Glucose (70 - 110 MG/DL) 198 H Laboratory Tests 10/07 10/07 10/07 1416 1351 1320 Coagulation Activated Coag Time (74 - 137 SEC) 299 H 311 H 287 H Laboratory Tests 10/08 0354 Hematology WBC (4.5 - 11.0 x10 3/uL) 7.7 RBC (4.00 - 5.60 x10 6/uL) 3.88 L Hgb (12.5 - 16.9 g/dL) 11.5 L Hct (37.5 - 50.7 %) 35.4 L MCV (81.0 - 99.0 fL) 91.2 MCH (27.0 - 33.0 pg) 29.6 MCHC (33.0 - 37.0 g/dL) 32.5 L RDW (11.5 - 14.5 %) 15.9 H Plt Count (150 - 400 x10 3/uL) 175 MPV (7.0 - 9.0 fL) 10.6 H Neut % (Auto) (56.0 - 77.0 %) 67.5 Lymph % (Auto) (14.0 - 32.0 %) 15.0 Fisher % (Auto) (4.8 - 9.0 %) 11.6 H Eos % (Auto) (0.3 - 3.7 %) 4.7 H Baso % (Auto) (0.0 - 2.0 %) 0.7 Neut # (Auto) (2.0 - 7.6 x10 3/uL) 5.16 Lymph # (Auto) (1.0 - 3.8 x10 3/uL) 1.15 Fisher # (Auto) (0.1 - 0.8 x10 3/uL) 0.89 H Eos # (Auto) (0.0 - 0.2 x10 3/uL) 0.36 H Baso # (Auto) (0.0 - 0.2 x10 3/uL) 0.05 Abs Immat Gran (auto) (0.00 - 0.03 x10 3/uL) 0. 04 H Add Manual Diff NO Immature Gran % (0.0 - 2.0 %) 0.5 Nucleated RBC % (0 - 0 %) 0.0 Nucleated RBCs # (Man) (0.0 - 0.1 x10 3/uL) 0. 00 Diagnosis, Assessment Plan Free Text A P: Assessment/plan: 1. Acute renal failure: Most likely secondary to contrast versus polyuric phase after placement of Atwood's, off lisinopril, off Lasix, on ivf, renal sono right kidney ok, absent left kidney, Cr 2.5-2.8-2.9-2. 5-1.9-1.8-1.7 today 2. CKD 4: Baseline creatinine not known, back in 2011 it was 2.6 3. Coronary artery disease: S/p cath, s/p PCI, g iven PAVITHRA prophylaxis 4. CHF: preserved ejection fraction, euvolemic 5. BPH: Continue Flomax, will check PSA levels, needs urology for obstructive uropathy 6. Urinary retention/obstructive uropathy, urolo gy on board 7. Diabetes mellitus: Treatment as per primary Electronically Signed by Jaz Gan MD on 10/[address] [place] [address] #:[phone] END OF REPORT 2022-10-07 [facility] 16:12:00-00:00 [facility] ([facility]) Hospitalist Progress Note REPORT#:[id number] REPORT STATUS: Signed DATE:10/07/22 TIME: 1611 PATIENT: ERIKA BROWN UNIT #: [id number] ROOM/BED: [address] : [address] AGE: 82 SEX: M ATTEND: Floyd Mccarthy MD ADM AUTHOR: Floyd Mccarthy MD * ALL edits or amendments must be made on the [employer]/computer document * Subjective Chief complaint: s/p PCI. no cp. no sob. Objective General VS/I O: Vital Signs: Date Time Temp Pulse Resp B/P B/P Pulse O2 O2 F low FiO2 Mean Ox Delivery Rate 10/07 1548 75 32 96 10/07 1545 72 18 144/83 106 97 10/07 1540 73 24 98 10/07 1530 74 31 142/83 106 98 10/07 1527 73 23 149/76 102 98 10/07 1525 74 26 97 10/07 1510 70 27 98 10/07 1455 70 24 97 10/07 1448 68 21 172/85 121 96 10/07 0806 98.4 76 20 163/75 104.0 94 Room air 10/07 0413 97.7 72 16 127/57 80.6 96 Room air 10/07 0041 Nasal 2 cannula 10/06 2322 97.9 82 16 105/59 74.1 96 Nasal cannula 10/06 2028 99 Nasal 2 cannula 10/06 1852 98.2 79 17 159/80 106.5 98 Nasal cannula 10/06 1655 97.9 68 14 146/72 96.4 96 Room air 24 hour I O ending at 0700: 10/07 0700 10/06 1900 Intake Total 100 Output Total 850 100 Balance -850 0 Intake, Oral 100 Output, Urine 850 100 PATIENT WEIGHT: Weight (lb): 337 Weight (oz): 4.92 Weight (kg): 152.861 Physical Exam General appearance: alert, awake Head/Eyes: atraumatic, EOMI, normal conjunctiva/ sclera, normocephalic ENT: moist mucosal membranes Neck: full range of motion, no bruit/NL carotids , no JVD Cardiovascular: normal heart sounds, regular rat e rhythm Respiratory: aerating well, clear to auscultatio n, symmetric expansion, no distress Abdomen: non-tender Genitourinary: urinary catheter Extremities: moves all, no cyanosis, no edema Neuro/CONTINUOUS MINER: alert, oriented X 3, normal speech, n o motor deficits, no sensory deficits Skin: intact, normal color, no rash Results Radiology data: Laboratory Tests 10/07/22 0455: [Embedded Image Not Available] 10/06/22 0531: [Embedded Image Not Available] Current Medications Sig/Juliann Start time Last Medication Dose Route Stop Time Status Admin Insulin Glargine 55 UNIT BEDTIME 10/07 2100 AC SUBQ 11/06 2059 Atropine Sulfate 0.5 MG ASDIR PRN 10/07 1530 AC IV 11/06 1529 Sodium Chloride 1,000 ML .[id number] ONE 10/07 153 0 AC IV 10/08 0449 Sodium Chloride 500 ML ASDIR PRN 10/07 1530 AC IV 11/06 1529 Aspirin 0 .STK-MED ONE 10/07 1423 DC 10/07 .ROUTE 1433 Aspirin 0 .STK-MED ONE 10/07 1422 DC .ROUTE Clopidogrel Bisulfate 0 .STK-MED ONE 10/07 1421 DC 10/07 .ROUTE 1433 Ondansetron HCl 0 .STK-MED ONE 10/07 1346 DC .ROUTE 1353 Midazolam HCl 0 .STK-MED ONE 10/07 1342 DC 09/23 5 .ROUTE 1353 Heparin Sodium/ 500 ML .STK-MED ONE 10/07 1338 DC 10/07 Sodium Chloride IV 1353 Heparin Sodium 0 .STK-MED ONE 10/07 1324 DC .ROUTE 1327 Fentanyl Citrate 0 .STK-MED ONE 10/07 1233 DC 0 10/07 .ROUTE 1327 Midazolam HCl 0 .STK-MED ONE 10/07 1233 DC 09/23 5 .ROUTE 1327 Heparin Sodium 0 .STK-MED ONE 10/07 1203 DC .ROUTE 1327 Heparin Sodium/ 1,000 ML .STK-MED ONE 10/07 120 3 DC 10/07 Sodium Chloride IV 1327 Heparin Sodium/ 500 ML .STK-MED ONE 10/07 1203 DC 10/07 Sodium Chloride IV 1327 Iopamidol 0 .STK-MED ONE 10/07 1203 DC 10/07 IV 1327 Lidocaine HCl 0 .STK-MED ONE 10/07 1203 DC .ROUTE 1327 Nitroglycerin/ 250 ML .STK-MED ONE 10/07 1203 D C 10/07 Dextrose IV 1327 Insulin Human Lispro 17 UNIT TID MEALS 10/07 12 00 AC SUBQ 11/06 1159 Insulin Human Lispro 15 UNIT TID MEALS 10/07 08 00 DC SUBQ 11/06 0759 Insulin Human Lispro 15 UNIT TID MEALS 10/06 17 45 DC 10/06 SUBQ 11/05 1733 1751 Acetylcysteine 600 MG Q12HR 10/06 0946 AC 10/07 PO 10/07 2101 0932 Sodium Chloride 1,000 ML .Q20H 10/06 0815 AC IV 11/05 0814 0917 Insulin Human Lispro 0 Q6HR 10/04 1200 AC 10/06 SUBQ 11/03 1159 1240 Clopidogrel Bisulfate 75 MG DAILY 10/04 899 A C 10/07 PO 11/03 0859 0942 Dextrose/Water 125 ML ASDIR PRN 10/04 09 CKD IV 11/03 0859 Dextrose/Water 250 ML ASDIR PRN 10/04 09 CKD IV 11/03 0859 Glucagon 1 MG ASDIR PRN 10/04 0800 AC IM 11/03 08 Metoprolol Tartrate 25 MG BID 10/03 2100 AC PO 10/31 0859 09 Atorvastatin Calcium 40 MG 2100 10/01 2100 AC 0 10/06 PO 10/31 2058 204 Insulin Glargine 50 UNIT BEDTIME 10/01 2100 DC 10/06 SUBQ 10/31 205 2042 Allopurinol 100 MG DAILY 10/01 899 AC 10/07 PO 10/31 0859 0928 Aspirin 81 MG DAILY 10/01 899 AC 10/07 PO 10/31 0859 0928 Escitalopram Oxalate 10 MG DAILY 10/01 899 AC 10/07 PO 10/31 0859 0928 Finasteride 5 MG DAILY 10/01 899 AC 10/07 PO 10/31 0859 0947 Montelukast Sodium 10 MG DAILY 10/01 899 AC PO 10/31 0859 0928 Nystatin 1 APPLIC BID 10/01 899 AC 10/07 TOPICAL 10/31 0859 0932 Pregabalin 75 MG TID 10/01 899 AC 10/07 PO 10/31 0859 1523 Tamsulosin HCl 0.4 MG DAILY 10/01 899 AC 10/07 PO 10/31 0859 0928 Insulin Human Lispro 40 UNIT TID MEALS 10/01 08 00 DC 10/06 SUBQ 10/31 0759 0911 Pantoprazole 40 MG AC BK 10/01 0730 AC 10/07 PO 10/31 0729 0930 Acetaminophen 650 MG Q4H PRN PRN 10/01 0045 AC 10/03 PO 10/31 0044 1449 Glucagon 1 MG ASDIR PRN 10/01 44 AC IM 11/01 43 Labetalol HCl 10 MG Q4H PRN PRN 10/01 44 AC IV 11/01 43 Ondansetron HCl 4 MG Q4H PRN PRN 10/01 44 AC 10/01 IV 11/01 43 1534 Albuterol Sulfate 1.25 MG RTQ6H PRN 10/01 003 AC 10/06 NEB 10/31 28 202 Colchicine 0.6 MG DAILY PRN PRN 10/01 29 AC PO 10/31 28 Nitroglycerin 0.4 MG Q5M PRN PRN 10/01 29 AC SL 10/31 28 Laboratory Tests: 10/07 10/07 10/07 10/07 10/07 1504 1416 1351 1320 1054 Chemistry POC Glucose (70 - 110 MG/DL) 196 H 198 H Coagulation Activated Coag Time (74 - 137 SEC) 299 H 311 H 287 H 10/07 10/07 10/07 10/06 0803 0455 0412 4 Chemistry Sodium (134 - 147 mEq/L) 137 Potassium (3.4 - 5.0 mEq/L) 4.2 Chloride (100 - 108 mEq/L) 102 Carbon Dioxide (21 - 33 mEq/l) 26 Anion Gap (0 - 20) 13 BUN (7 - 18 mg/dL) 24 H Creatinine (0.6 - 1.3 mg/dL) 2.0 H Glomerular Filtr Rate (70 - 80) 32.9 L Glucose (70 - 110 mg/dL) 223 H POC Glucose (70 - 110 MG/DL) 203 H 231 H 204 H Calcium (8.0 - 10.5 mg/dL) 9.2 Hematology WBC (4.5 - 11.0 x10 3/uL) 8.0 RBC (4.00 - 5.60 x10 6/uL) 4.01 Hgb (12.5 - 16.9 g/dL) 11.8 L Hct (37.5 - 50.7 %) 36.7 L MCV (81.0 - 99.0 fL) 91.5 MCH (27.0 - 33.0 pg) 29.4 MCHC (33.0 - 37.0 g/dL) 32.2 L RDW (11.5 - 14.5 %) 15.9 H Plt Count (150 - 400 x10 3/uL) 163 MPV (7.0 - 9.0 fL) 10.8 H Neut % (Auto) (56.0 - 77.0 %) 64.5 Lymph % (Auto) (14.0 - 32.0 %) 20.0 Fisher % (Auto) (4.8 - 9.0 %) 9.5 H Eos % (Auto) (0.3 - 3.7 %) 4.9 H Baso % (Auto) (0.0 - 2.0 %) 0.6 Neut # (Auto) (2.0 - 7.6 x10 3/uL) 5.13 Lymph # (Auto) (1.0 - 3.8 x10 3/uL) 1.59 Fisher # (Auto) (0.1 - 0.8 x10 3/uL) 0.76 Eos # (Auto) (0.0 - 0.2 x10 3/uL) 0.39 H Baso # (Auto) (0.0 - 0.2 x10 3/uL) 0.05 Abs Immat Gran (auto) (0.00 - 0.03 x10 3/uL) 0. 04 H Add Manual Diff NO Immature Gran % (0.0 - 2.0 %) 0.5 Nucleated RBC % (0 - 0 %) 0.0 Nucleated RBCs # (Man) (0.0 - 0.1 x10 3/uL) 0.0 0 10/06 10/06 1851 1653 Chemistry POC Glucose (70 - 110 MG/DL) 183 H 117 H Diagnosis, Assessment Plan Free Text DxA P Notes Free text DxA P notes: Assessment and Plan 1. CAD (coronary artery disease) -NSTEMI -Multi-vessel CAD with left main disease. -CVS consult -BB, ASA, Statin. -Heparin drip -Patient determined to be too high risk for CAB G Plan for PCI of LAD and RCA on 10/07- s/p PCI of left main (verbal report from maryana garcia) 2. HTN (hypertension) PRN labetalol continue with metoprolol Hold marlena due to ckd 3. DM type 2 (diabetes mellitus, type 2) with h yperglycemia Resume home Insulin. ISS. Adjsut home insulin a s needed. HGA1c 9.8 -NovoLog 40 units TID, Lantus 50 units at bedti me, Aggressive SS 4. CKD (chronic kidney disease) stage 4, GFR 15 -29 ml/min hold marlena. Monitor due to recent cath. 10/02 -creatinine increased to 2.8, monitor 10/03 nephrology consulted. Renal ultrasound wit h absent left kidney. 5. Chronic diastolic heart failure Chronic diastolic dysfuntion. LVEF 55-60% Currently compensated w/o acute exacerbation. CXR and [place] was normal per records. Furosemide 40 mg daily 6. BPH (benign prostatic hyperplasia) resume proscar and flomax 10/07- urology consulted as per renal request 7. Asthma stable 8. Gout stable resume allopurinol 9. Dyslipidemia resume lipitor 10. Cellulitis Continue with Augmentin from previous hospital 11. Hematoma , anterior RLE patient was upset and requested additional imag ing US ordered, confirmed hematoma s/p fall Morbid obesity BMI 49.8. Will need to fo llow-up outpatient with PCP for weight loss Resuscitation discussion: Discussed with: patient Code status: full code Disposition: status post PCI placement 10/06- PCI planned today. d/w cardiology 10/07 - s/p PCI today of left main. urology consu lted for urinary retention Quality: Gen Med Crit Care VTE Prophylaxis VTE prophylaxis initiated: yes Current Medications Current medication review: I attest that the foregoing medication list in t he medical record is true, accurate, and complete to the best of my knowled ge. Advanced Care Plan 65 or Older Discussed with: patient Discussion included: living will (none), power of workers compensation defense attorney (none), code status ( full code) Electronically Signed by Floyd Mccarthy MD on 09/23 07/15 at 1614 RPT #:[id number] END OF REPORT 2022-10-07 Formatting of this note might be differe nt from the original. Lennie Valdez [facility] 14:24:59-00:00 Spoke with relative marisa Brown is in the hospital. Unable to schedule a f/u at the moment. Electronically signed by Lennie Valdez at 0 10/07/2022 2:30 PM CDT 2022-10-07 [facility] 11:19:56-00:00 Needs follow-up appointment [facility]O 2022-10-07 Formatting of this note is different fro m the original. Claudia Albarado LVN [facility] 10:30:52-00:00 Images from the original note were not included. Refill criteria not met. Please review and advis e. Requested Renewals Name from pharmacy: FUROSEMIDE 40MG TABLETS Will file in chart as: FUROSEMIDE 40 mg tablet Sig: Take 1 tablet by mouth in the morning. Original sig: TAKE 1 TABLET BY MOUTH IN THE MOR DAYAMI Disp: 90 tablet Refills: 1 (Pharmacy requested: Not specified) Start: 10/06/2022 Class: eRX For: Chronic diastolic congestive heart failure Last ordered: 11 months ago (11/08/2021) by Viky Mustafa MD Last refill: 06/23/2022 Rx #: [id number]|1 Cardiovascular: Loop Diuretics Failed 07:31 AM Protocol Details K in normal range and within 18 0 days Cr in normal range and within 180 days Valid encounter within last 12 months To be filled at: [facility][id number] - [place], [place] - [address] [facility] [employer] Recent Visits Date Type Provider Dept 11/08/21 Office Visit Esperanza Mustafa MD [facility] [address] 07/17/21 [facility] Showing recent visits within past 540 days with a meds authorizing provider and meeting all other requirements Future Appointments No visits were found meeting these conditions. Showing future appointments within next 150 days with a meds authorizing provider and meeting all other requirements 2022-10-07 [facility] 09:17:00-00:00 [facility] Cardiology Progress Note REPORT#:[id number] REPORT STATUS: Signed DATE:10/07/22 TIME: 09 PATIENT: ERIKA BROWN UNIT #: [id number] ROOM/BED: [place] [id number] : 41 AGE: 82 SEX: M ATTEND: Floyd Mccarthy MD ADM AUTHOR: Kathya Sorensen CNP * ALL edits or amendments must be made on the el [employer]/computer document * Subjective Patient reports: No: complaints. Objective General VS/I O: 24 hour I O ending at 0700: 10/07 0700 10/06 1900 Intake Total 100 Output Total 850 100 Balance -850 0 Intake, Oral 100 Output, Urine 850 100 Vital Signs: Date Time Temp Pulse Resp B/P B/P Pulse O2 O2 F low FiO2 Mean Ox Delivery Rate 10/07 0806 36.9 76 20 163/75 104.0 94 Room air 10/07 0413 36.5 72 16 127/57 80.6 96 Room air 10/07 0041 Nasal 2 cannula 10/06 2322 36.6 82 16 105/59 74.1 96 Nasal cannula 10/06 2028 99 Nasal 2 cannula 10/06 1852 36.8 79 17 159/80 106.5 98 Nasal cannula 10/06 1655 36.6 68 14 146/72 96.4 96 Room air 10/06 1116 36.5 75 14 150/70 97.0 95 Room air PATIENT WEIGHT: Weight (lb): 337 Weight (oz): 4.92 Weight (kg): 152.861 Medications: Active Meds + DC'd Last 24 Hrs Insulin Glargine (Semglee) 55 UNIT BEDTIME SUBQ Insulin Human Lispro (HUMALOG) 17 UNIT TID MEALS SUBQ Insulin Human Lispro (HUMALOG) 15 UNIT TID MEALS SUBQ (DC) Insulin Human Lispro (HUMALOG) 15 UNIT TID MEALS SUBQ (DC) Acetylcysteine (N-ACETYLCYSTEINE) 600 MG Q12HR P O Sodium Chloride (SODIUM CHLORIDE 0.9%) 1,000 ML .Q20H IV Insulin Human Lispro (HUMALOG) 0 Q6HR SUBQ Clopidogrel Bisulfate (Plavix) 75 MG DAILY PO Dextrose/Water (DEXTROSE 10% IN WATER) 125 ML DIR PRN IV (CKD) Dextrose/Water (DEXTROSE 10% IN WATER) 250 ML DIR PRN IV (CKD) Glucagon (GLUCAGON) 1 MG ASDIR PRN IM Metoprolol Tartrate (LOPRESSOR) 25 MG BID PO Atorvastatin Calcium (LIPITOR) 40 MG 2100 PO Insulin Glargine (Semglee) 50 UNIT BEDTIME SUBQ (DC) Allopurinol (ZYLOPRIM) 100 MG DAILY PO Aspirin (ASPIRIN) 81 MG DAILY PO Escitalopram Oxalate (LEXAPRO) 10 MG DAILY PO Finasteride (PROSCAR) 5 MG DAILY PO Montelukast Sodium (SINGULAIR) 10 MG DAILY PO Nystatin (MYCOSTATIN 15 GM CREAM) 1 APPLIC BID T OPICAL Pregabalin (LYRICA) 75 MG TID PO Tamsulosin HCl (Flomax 0.4 mg) 0.4 MG DAILY PO Insulin Human Lispro (HUMALOG) 40 UNIT TID MEALS SUBQ (DC) Pantoprazole (PROTONIX) 40 MG AC BK PO Acetaminophen (TYLENOL) 650 MG Q4H PRN PRN PO Glucagon (GLUCAGON) 1 MG ASDIR PRN IM Labetalol HCl (LABETALOL HCL) 10 MG Q4H PRN PRN IV Ondansetron HCl (ZOFRAN) 4 MG Q4H PRN PRN IV Albuterol Sulfate (ALBUTEROL SULFATE) 1.25 MG RT Q6H PRN NEB Colchicine (COLCRYS) 0.6 MG DAILY PRN PRN PO Nitroglycerin (NITROSTAT) 0.4 MG Q5M PRN PRN SL Physical Exam General appearance: obese, alert, awake, oriente d Neck: no JVD Cardiovascular: CV assessment: regular rate and rhythm Respiratory: decreased breath sounds, on oxygen, no distress Abdomen: non-tender Genitourinary: urinary catheter, urine Lower extremity: LE assessment: edema (trace) Neuro/CONTINUOUS MINER: alert Skin: lesion (LE), rash Psychiatry: normal affect, normal mood Results Findings/Data: Laboratory Tests 10/07 10/07 10/07 10/06 10/06 0803 0455 9342 1734 1851 Chemistry Sodium (134 - 147 mEq/L) 137 Potassium (3.4 - 5.0 mEq/L) 4.2 Chloride (100 - 108 mEq/L) 102 Carbon Dioxide (21 - 33 mEq/l) 26 Anion Gap (0 - 20) 13 BUN (7 - 18 mg/dL) 24 H Creatinine (0.6 - 1.3 mg/dL) 2.0 H Glomerular Filtr Rate (70 - 80) 32.9 L Glucose (70 - 110 mg/dL) 223 H POC Glucose (70 - 110 MG/DL) 203 H 231 H 204 H 183 H Calcium (8.0 - 10.5 mg/dL) 9.2 10/06 10/06 1653 1117 Chemistry POC Glucose (70 - 110 MG/DL) 117 H 249 H Laboratory Tests 10/07 0455 Hematology WBC (4.5 - 11.0 x10 3/uL) 8.0 RBC (4.00 - 5.60 x10 6/uL) 4.01 Hgb (12.5 - 16.9 g/dL) 11.8 L Hct (37.5 - 50.7 %) 36.7 L MCV (81.0 - 99.0 fL) 91.5 MCH (27.0 - 33.0 pg) 29.4 MCHC (33.0 - 37.0 g/dL) 32.2 L RDW (11.5 - 14.5 %) 15.9 H Plt Count (150 - 400 x10 3/uL) 163 MPV (7.0 - 9.0 fL) 10.8 H Neut % (Auto) (56.0 - 77.0 %) 64.5 Lymph % (Auto) (14.0 - 32.0 %) 20.0 Fisher % (Auto) (4.8 - 9.0 %) 9.5 H Eos % (Auto) (0.3 - 3.7 %) 4.9 H Baso % (Auto) (0.0 - 2.0 %) 0.6 Neut # (Auto) (2.0 - 7.6 x10 3/uL) 5.13 Lymph # (Auto) (1.0 - 3.8 x10 3/uL) 1.59 Fisher # (Auto) (0.1 - 0.8 x10 3/uL) 0.76 Eos # (Auto) (0.0 - 0.2 x10 3/uL) 0.39 H Baso # (Auto) (0.0 - 0.2 x10 3/uL) 0.05 Abs Immat Gran (auto) (0.00 - 0.03 x10 3/uL) 0. 04 H Add Manual Diff NO Immature Gran % (0.0 - 2.0 %) 0.5 Nucleated RBC % (0 - 0 %) 0.0 Nucleated RBCs # (Man) (0.0 - 0.1 x10 3/uL) 0.0 0 Results: labs reviewed, vital signs reviewed, [facility] personally rev'd Telemetry Interpretation: sinus rhythm Diagnosis, Assessment Plan Plan discussed with: patient, collaborating MD Free Text DxA P Notes Free Text DxA P Notes: 82 YO male with PMHx of CAD, [place] with prior PCI/D ES, HTN, DM, HLD, CHF, morbid obesity, CKD who was admitted at [facility] with chest pain ruled in for NSTEMI. LHC revealed multive ssel CAD including distal left main. The patient is transferred to this facility for CABG evaluation . 1. NSTEMI/Multivessel CAD including distal LM * too high risk for CABG, STS score for operativ e mortality for isolated CABG 12.2% * Impella-assisted high risk PCI to the LAD and RCA today, cleared by Nephrology Dr. Gan * DAPT, BB, statin * NPO 2. Chronic CHF * BNP normal * echo preserved LvEF 3. Hypertension * continue metoprolol to 25 mg BID 4. Diabetes mellitus * manage per PCP 5. CKD * creat up to 2 today * nephrology following 6. Asthma Tushar ([phone]) at 1341 RPT #:[id number] END OF REPORT 2022-10-06 [facility] 17:45:00-00:00 [facility] ([facility]) Endocrinology Consultation REPORT#:[id number] REPORT STATUS: Signed DATE:10/06/22 TIME: 1745 PATIENT: ERIKA BROWN UNIT #: [id number] ROOM[place]BED: [facility] [place] : [place] AGE: 82 SEX: M ATTEND: Floyd Mccarthy MD ADM AUTHOR: Checo Hagen MD * ALL edits or amendments must be made on the el [employer]/computer document * History of Present Illness Requesting Clinician: Floyd Mccarthy MD Reason for consult: Diabetes HPI: 82 year old male with DM2, HTN, CHF, CAD, BPH, C KD 4, gout, GERD admitted for chest painwith elevated troponin. Statu s post cardiac catherization but not a candidate for CABG. Plan for cardiac stent. Suga rs have been elevated and highly insulin resistant. At home he tara es lantus 50 units bedtime and humalog 40 units per meal and diabetes still not control led with a hga1c >8% per his . They are too anxious about startin g any SGLT-2 or GLP-1 that would treat his diabetes and still have cardiovascular protection for fear of injury to his one kidney. History - Adult longitudinal Past medical history: Reports: Asthma, Congestive heart failure, Coron pauline artery disease, Diabetes mellitus, GERD/gastritis, Hy pertension, Kidney disease/stones, BPH, Chronic pain , Dyslipidemia, Prior [place]. Denies: Atrial fibrill ation. Past surgical history: Reports: Cholecystectomy, He rnia repair, Spine surgery, = (back surgery). Family history: Reports: Heart disease, Hypertension. Additional family history: Father at age 50 of heart attack Mother had quadruple bypass Brother had quadruple bypass Sister had PCI Alcohol use: Denies EtOH use Drug use: Denies recreational drugs Smoking status for patients 13 years old or older: Former Smoker (quit 60 years ago) Medications: Home Medications: Medication Dose/Rte/Freq Days Qty Entered Last Max Daily Dose Reviewed ASPIRIN 81 MG PO DAILY 09/30/22 09/30/22 Strength: 81 MG TAB.CHEW 9 2321 AMOXICILLIN/CLAV K 875 MG PO BID 09/30/2209/30 (AUGMENTIN 875/125 MG) 2309 2321 Strength: 875 MG-125 MG TAB METOPROLOL TARTRATE 50 MG PO BID 09/30/2209/30 (LOPRESSOR) 2310 2321 Strength: 50 MG TAB ALLOPURINOL (ZYLOPRIM) 100 MG PO DAILY 09/30/22 09/30/22 Strength: 100 MG TAB 2310 2322 MORPHINE SULFATE 2 MG IM 09/30/22 09/30/22 (MORPHINE SULFATE INJ) Q6H PRN PRN PAIN 2312 2 321 Strength: 2 MG/ML SCALE 7-10 DISP.SYRIN ONDANSETRON 4 MG IV 09/30/22 09/30/22 Strength: 4 MG/2 ML VIAL Q6H PRN PRN NAUSEA 2312 232 AND VOMITING MONTELUKAST (SINGULAIR) 10 MG PO DAILY 09/30/22 09/30/22 Strength: 10 MG TAB 2314 2322 TAMSULOSIN ER (FLOMAX) 0.4 MG PO DAILY 09/30/22 09/30/22 Strength: 0.4 MG 231 2321 CAP.SR.24H FINASTERIDE (PROSCAR) 5 MG PO DAILY 09/30/22 Strength: 5 MG TAB 5 232 PREGABALIN (LYRICA) 75 MG PO TID 09/30/2209/30 Strength: 75 MG CAP 2315 232 ENALAPRIL (VASOTEC) 20 MG PO DAILY 09/30/2210/15 Strength: 20 MG TAB 2315 232 INSULIN ASPART 40 UNITS SUBQ 09/30/22 09/30/22 (NovoLOG FLEXPEN (15mL)) TID MEALS 2315 2321 Strength: 100 UNIT/ML (3 ML) PEN.INJCTR ESOMEPRAZOLE MAG 20 MG PO DAILY 09/30/22 (NexIUM) 2316 2320 Strength: 20 MG CAP. ESCITALOPRAM (LEXAPRO) 10 MG PO DAILY 09/30/22 09/30/22 Strength: 10 MG TAB 2316 232 NYSTATIN 1 APPLIC TOPICAL BID 09/30/22 09/30/22 (MYCOSTATIN 100,000 2317 2321 UNITS/GM) Strength: 100,000 UNIT/GRAM POWDER FUROSEMIDE (LASIX) 40 MG PO DAILY 09/30/22 0810/15 Strength: 40 MG TAB 8 2321 ALBUTEROL 1.25 MG NEB 09/30/22 09/30/22 (ALBUTEROL 2.5 MG/3 ML RTQ6H PRN 2318 2321 (75mL)) SHORTNESS OF Strength: 2.5 MG/3 ML BREATH (0.083 %) NEB NITROGLYCERIN 0.4 MG SL 09/30/22 09/30/22 (NITROSTAT) Q5M PRN PRN CHEST 2319 232 Strength: 0.4 MG TAB.SL PAIN COLCHICINE (COLCRYS) 0.6 MG PO 09/30/22 3 Strength: 0.6 MG TAB DAILY PRN PRN GOUT 2321 232 1 PAIN Current Hospital Medications: Anti-Infective Agents Sig/Juliann Start time Last Medication Dose Route Stop Time Status Admin Amoxicillin/ 500 MG Q12H 10/03 899 DC 10/05 Clavulanate Potassium PO 10/051 2140 (AUGMENTIN 500) Nystatin 1 APPLIC BID 10/01 899 AC 10/06 (MYCOSTATIN 15 GM TOPICAL 10/31 08 1230 CREAM) Autonomic Drugs Sig/Juliann Start time Last Medication Dose Route Stop Time Status Admin Tamsulosin HCl 0.4 MG DAILY 10/01 899 AC 10/06 (Flomax 0.4 mg) PO 11/01 0759 09 Albuterol Sulfate 1.25 MG RTQ6H PRN 10/01 0030 AC (ALBUTEROL SULFATE) NEB 10/31 0029 Blood Formation,Coagulation Sig/Juliann Start time Last Medication Dose Route Stop Time Status Admin Clopidogrel Bisulfate 75 MG DAILY 10/04 899 AC 10/06 (Plavix) PO 11/03 0859 0910 Cardiovascular Drugs Sig/Juliann Start time Last Medication Dose Route Stop Time Status Admin Metoprolol Tartrate 25 MG BID 10/03 2100 AC (LOPRESSOR) PO 10/31 0859 09 Atorvastatin Calcium 40 MG 2100 10/01 2100 AC 0 10/05 (LIPITOR) PO 10/31 2059 2140 Labetalol HCl 10 MG Q4H PRN PRN 10/01 0045 AC (LABETALOL HCL) IV 10/31 0044 Nitroglycerin 0.4 MG Q5M PRN PRN 10/01 0030 AC (NITROSTAT) SL 10/31 0029 Central Nervous System Agents Sig/Juliann Start time Last Medication Dose Route Stop Time Status Admin Aspirin 81 MG DAILY 10/01 899 AC 10/06 (ASPIRIN) PO 10/31 0859 0911 Escitalopram Oxalate 10 MG DAILY 10/01 899 AC 10/06 (LEXAPRO) PO 11/01 0759 0910 Pregabalin 75 MG TID 10/01 899 AC 10/06 (LYRICA) PO 10/31 0859 1731 Acetaminophen 650 MG Q4H PRN PRN 10/01 0045 AC 10/03 (TYLENOL) PO 10/31 0044 1449 Morphine Sulfate 2 MG Q6H PRN PRN 10/01 0030 DC (morphine SULFATE) IV 10/06 0029 Electrolytic, Caloric, And [place] Sig/Juliann Start time Last Medication Dose Route Stop Time Status Admin Sodium Chloride 1,000 ML .Q20H 10/06 0815 AC (SODIUM CHLORIDE IV 11/05 813 0917 0.9%) Dextrose/Water 125 ML ASDIR PRN 10/04 09 CKD (DEXTROSE 10% IN IV 11/03 0859 WATER) Dextrose/Water 250 ML ASDIR PRN 10/04 09 CKD (DEXTROSE 10% IN IV 11/04 0759 WATER) Gastrointestinal Drugs Sig/Julainn Start time Last Medication Dose Route Stop Time Status Admin Pantoprazole 40 MG AC BK 10/01 0730 AC 10/06 (PROTONIX) PO 10/31 0729 0910 Ondansetron HCl 4 MG Q4H PRN PRN 10/01 0045 AC 10/01 (ZOFRAN) IV 10/31 0044 1534 Hormones And Synthetic Substit Sig/Juliann Start time Last Medication Dose Route Stop Time Status Admin Insulin Human Lispro 15 UNIT TID MEALS 10/07 08 00 DC (HUMALOG) SUBQ 11/06 0759 Insulin Human Lispro 15 UNIT TID MEALS 10/06 17 45 AC (HUMALOG) SUBQ 11/05 1733 Insulin Human Lispro 0 Q6HR 10/04 1200 AC 10/06 (HUMALOG) SUBQ 11/03 1159 1240 Glucagon 1 MG ASDIR PRN 10/04 0900 AC (GLUCAGON) IM 11/03 0859 Insulin Glargine 50 UNIT BEDTIME 10/01 2100 AC 10/05 (Semglee) SUBQ 10/31 2059 2140 Insulin Human Lispro 40 UNIT TID MEALS 10/01 08 00 DC 10/06 (HUMALOG) SUBQ 10/31 0759 0911 Glucagon 1 MG ASDIR PRN 10/01 0045 AC (GLUCAGON) IM 10/31 0044 Miscellaneous Therapeutic Agen Sig/Juliann Start time Last Medication Dose Route Stop Time Status Admin Allopurinol 100 MG DAILY 10/01 899 AC 10/06 (ZYLOPRIM) PO 10/31 0859 0911 Finasteride 5 MG DAILY 10/01 899 AC 10/06 (PROSCAR) PO 10/31 858 09 Colchicine 0.6 MG DAILY PRN PRN 10/01 0030 AC (COLCRYS) PO 10/31 0029 Respiratory Tract Agents Sig/Juliann Start time Last Medication Dose Route Stop Time Status Admin Acetylcysteine 600 MG Q12HR 10/06 945 AC 10/06 (N-ACETYLCYSTEINE) PO 10/07 2101 1231 Montelukast Sodium 10 MG DAILY 10/01 899 AC (SINGULAIR) PO 10/31 0859 0911 Allergies: Coded Allergies: melatonin (Mild, RASH-UNKNOWN 10/01/22) zolpidem (From AMBIEN) (Intermediate, KEEPS HIM AWAKE 09/30/22) Review of Systems Additional notes: as per HPI otherwise 14 point review of system i s negative Objective VS/I O: Last Documented: Result Date Time Pulse Ox 96 10/06 1655 B/P 146/72 10/06 1655 B/P Mean 96.4 10/06 1655 O2 Delivery Room air 10/06 1655 Temp 36.6 10/06 1655 Pulse 68 10/06 1655 Resp 14 10/06 1655 O2 Flow Rate 3 10/04 0733 24 hour I O ending at 0700: 10/06 0700 10/05 1900 Intake Total 500 Output Total 1375 1600 Balance -1375 -1100 Intake, Oral 500 Output, Urine 1375 1600 PATIENT WEIGHT: Weight (lb): 337 Weight (oz): 4.92 Weight (kg): 152.861 General appearance: obese, alert, awake, oriente d Results Findings/Data: Laboratory Tests: 10/06 10/06 10/06 10/06 1117 0630 0531 0531 Chemistry Sodium (134 - 147 mEq/L) 137 Potassium (3.4 - 5.0 mEq/L) 4.2 Chloride (100 - 108 mEq/L) 103 Carbon Dioxide (21 - 33 mEq/l) 26 Anion Gap (0 - 20) 12 BUN (7 - 18 mg/dL) 25 H Creatinine (0.6 - 1.3 mg/dL) 1.8 H Glomerular Filtr Rate (70 - 80) 37.4 L Glucose (70 - 110 mg/dL) 185 H POC Glucose (70 - 110 MG/DL) 249 H 160 H 181 H Calcium (8.0 - 10.5 mg/dL) 9.3 Magnesium (1.80 - 2.40 mg/dL) 1.88 Coagulation INR (0.8 - 1.2) 1.1 PTT (Anthony) (25.0 - 39.5 Seconds) 27.9 PT Patient/Control Mix (9.3 - 12.9 SECONDS) 12. 4 Hematology WBC (4.5 - 11.0 x10 3/uL) 8.2 RBC (4.00 - 5.60 x10 6/uL) 3.92 L Hgb (12.5 - 16.9 g/dL) 11.5 L Hct (37.5 - 50.7 %) 35.5 L MCV (81.0 - 99.0 fL) 90.6 MCH (27.0 - 33.0 pg) 29.3 MCHC (33.0 - 37.0 g/dL) 32.4 L RDW (11.5 - 14.5 %) 15.9 H Plt Count (150 - 400 x10 3/uL) 155 MPV (7.0 - 9.0 fL) 10.8 H Neut % (Auto) (56.0 - 77.0 %) 64.7 Lymph % (Auto) (14.0 - 32.0 %) 19.5 Fisher % (Auto) (4.8 - 9.0 %) 9.1 H Eos % (Auto) (0.3 - 3.7 %) 5.5 H Baso % (Auto) (0.0 - 2.0 %) 0.7 Neut # (Auto) (2.0 - 7.6 x10 3/uL) 5.27 Lymph # (Auto) (1.0 - 3.8 x10 3/uL) 1.59 Fisher # (Auto) (0.1 - 0.8 x10 3/uL) 0.74 Eos # (Auto) (0.0 - 0.2 x10 3/uL) 0.45 H Baso # (Auto) (0.0 - 0.2 x10 3/uL) 0.06 Abs Immat Gran (auto) (0.00 - 0.03 x10 3/uL) 0. 04 H Add Manual Diff NO Immature Gran % (0.0 - 2.0 %) 0.5 Nucleated RBC % (0 - 0 %) 0.0 Nucleated RBCs # (Man) (0.0 - 0.1 x10 3/uL) 0. 00 10/06 10/05 10/05 10/05 0019 1835 1552 1208 Chemistry POC Glucose (70 - 110 MG/DL) 122 H 214 H 269 H 282 H 10/05 10/05 10/05 10/04 1148 0759 0569 2344 Chemistry Sodium (134 - 147 mEq/L) 135 Potassium (3.4 - 5.0 mEq/L) 5.0 Chloride (100 - 108 mEq/L) 101 Carbon Dioxide (21 - 33 mEq/l) 27 Anion Gap (0 - 20) 12 BUN (7 - 18 mg/dL) 26 H Creatinine (0.6 - 1.3 mg/dL) 1.9 H Glomerular Filtr Rate (70 - 80) 35.0 L Glucose (70 - 110 mg/dL) 280 H POC Glucose (70 - 110 MG/DL) 143 H 158 H 238 H Calcium (8.0 - 10.5 mg/dL) 9.4 Hematology WBC (4.5 - 11.0 x10 3/uL) 7.8 RBC (4.00 - 5.60 x10 6/uL) 4.20 Hgb (12.5 - 16.9 g/dL) 12.2 L Hct (37.5 - 50.7 %) 38.1 MCV (81.0 - 99.0 fL) 90.7 MCH (27.0 - 33.0 pg) 29.0 MCHC (33.0 - 37.0 g/dL) 32.0 L RDW (11.5 - 14.5 %) 15.9 H Plt Count (150 - 400 x10 3/uL) 162 MPV (7.0 - 9.0 fL) 10.6 H Neut % (Auto) (56.0 - 77.0 %) 66.4 Lymph % (Auto) (14.0 - 32.0 %) 18.6 Fisher % (Auto) (4.8 - 9.0 %) 8.2 Eos % (Auto) (0.3 - 3.7 %) 5.8 H Baso % (Auto) (0.0 - 2.0 %) 0.5 Neut # (Auto) (2.0 - 7.6 x10 3/uL) 5.16 Lymph # (Auto) (1.0 - 3.8 x10 3/uL) 1.45 Fisher # (Auto) (0.1 - 0.8 x10 3/uL) 0.64 Eos # (Auto) (0.0 - 0.2 x10 3/uL) 0.45 H Baso # (Auto) (0.0 - 0.2 x10 3/uL) 0.04 Abs Immat Gran (auto) (0.00 - 0.03 x10 3/uL) 0. 04 H Add Manual Diff NO Immature Gran % (0.0 - 2.0 %) 0.5 Nucleated RBC % (0 - 0 %) 0.0 Nucleated RBCs # (Man) (0.0 - 0.1 x10 3/uL) 0.0 0 10/04 190 Chemistry POC Glucose (70 - 110 MG/DL) 198 H Recent Impressions: ULTRASOUND - DUP VEIN DAMIAN 10/05 1448 Report Impression - Status: SIGNED Entered: 10/05/2022 1544 IMPRESSION: No evidence of deep vein thrombosis. Area of concern in the right mid calf correspond s to a heterogeneous hypoechoic area measuring 5.7 x 1. 2 x 4.6 cm; no internal vascular flow or peripheral hyperemia. Likely represents a hematoma. Impression By: LucABKevin - Adam Neves M.D. RADIOLOGY - XR CHEST 1 V 10/06 0744 Report Impression - Status: SIGNED Entered: 10/06/2022 0903 IMPRESSION: No acute cardiopulmonary findings. Impression By: Jose - Gonzalez Gandara Diagnosis, Assessment Plan Free Text A P: 1. DM2 monitor sugars diet continue lantus adjust humalog discussed farxiga, jardiance, and ozempic but irene sousa fearful of MANAV with his history of having one kidney 2. CAD NSTEMI plan for PCI follow with cardiology 3. CKD follow Cr I thank Dr. Mccarthy for the kind consult. Electronically Signed by Checo Hagen MD on 0 10/06/22 at 1752 RPT #:[id number] END OF REPORT 2022-10-06 [facility] 10:48:00-00:00 [facility] ([facility]) Hospitalist Progress Note REPORT#:[id number] REPORT STATUS: Signed DATE:10/06/22 TIME: 1048 PATIENT: ERIKA BROWN UNIT #: [id number] ROOM/BED: [place] [address] : 41 AGE: 82 SEX: M ATTEND: Floyd Mccarthy MD ADM AUTHOR: Floyd Mccarthy MD * ALL edits or amendments must be made on the el [employer]/computer document * Subjective Chief complaint: no cp. no sob. Objective General VS/I O: Vital Signs: Date Time Temp Pulse Resp B/P B/P Pulse O2 O2 F low FiO2 Mean Ox Delivery Rate 10/06 0629 99.0 78 14 138/77 97.4 96 Room air 10/06 0412 97.2 68 15 114/66 82.2 95 Room air 10/05 2338 97.7 76 14 128/72 0.0 95 Room air 10/05 1836 97.7 80 15 148/86 106.9 98 10/05 1556 97.9 71 18 154/85 108.2 98 Room air 10/05 1209 97.7 63 18 146/70 95.4 96 Room air 24 hour I O ending at 0700: 10/06 0700 10/05 1900 Intake Total 500 Output Total 1375 1600 Balance -1375 -1100 Intake, Oral 500 Output, Urine 1375 1600 PATIENT WEIGHT: Weight (lb): 337 Weight (oz): 4.92 Weight (kg): 152.861 Physical Exam General appearance: alert, awake Head/Eyes: atraumatic, EOMI, normal conjunctiva/ sclera, normocephalic ENT: moist mucosal membranes Neck: full range of motion, no bruit/NL carotids , no JVD Cardiovascular: normal heart sounds, regular rat e rhythm Respiratory: aerating well, clear to auscultatio n, symmetric expansion, no distress Abdomen: non-tender Extremities: moves all, no cyanosis, no edema Neuro/CONTINUOUS MINER: alert, oriented X 3, normal speech, n o motor deficits, no sensory deficits Skin: intact, normal color, no rash Results Radiology data: Laboratory Tests 10/06/22 0531: [Embedded Image Not Available] 10/05/22 1148: [Embedded Image Not Available] Current Medications Sig/Juliann Start time Last Medication Dose Route Stop Time Status Admin Acetylcysteine 600 MG Q12HR 10/06 0946 AC PO 10/07 2101 Sodium Chloride 1,000 ML .Q20H 10/06 0815 AC IV 11/05 0814 0917 Insulin Human Lispro 0 Q6HR 10/04 1200 AC 10/06 SUBQ 11/03 1159 0548 Clopidogrel Bisulfate 75 MG DAILY 10/04 09 AC 10/06 PO 11/03 0859 0910 Dextrose/Water 125 ML ASDIR PRN 10/04 09 CKD IV 11/03 0859 Dextrose/Water 250 ML ASDIR PRN 10/04 0900 CKD IV 11/03 0859 Glucagon 1 MG ASDIR PRN 10/04 0900 AC IM 11/03 08 Metoprolol Tartrate 25 MG BID 10/03 2100 AC PO 10/31 0859 0910 Amoxicillin/ 500 MG Q12H 10/03 0900 DC 10/05 Clavulanate Potassium PO 10/05 2101 2140 Atorvastatin Calcium 40 MG 2100 10/01 2100 AC 10/05 PO 10/31 205 2140 Insulin Glargine 50 UNIT BEDTIME 10/01 2100 AC 10/05 SUBQ 10/31 2059 2140 Allopurinol 100 MG DAILY 10/01 899 AC 10/06 PO 10/31 08 0911 Aspirin 81 MG DAILY 10/01 899 AC 10/06 PO 10/31 0859 0911 Escitalopram Oxalate 10 MG DAILY 10/01 899 AC 10/06 PO 10/31 0859 0910 Finasteride 5 MG DAILY 10/01 899 AC 10/06 PO 10/31 0859 0910 Montelukast Sodium 10 MG DAILY 10/01 899 AC 0 10/06 PO 10/31 0859 0911 Nystatin 1 APPLIC BID 10/01 899 AC 10/05 TOPICAL 10/31 0859 2140 Pregabalin 75 MG TID 10/01 899 AC 10/06 PO 10/31 0859 0911 Tamsulosin HCl 0.4 MG DAILY 10/01 899 AC 10/06 PO 10/31 0859 0911 Insulin Human Lispro 40 UNIT TID MEALS 10/01 08 00 AC 10/06 SUBQ 10/31 0759 0911 Pantoprazole 40 MG AC BK 10/01 0730 AC 10/06 PO 10/31 0729 0910 Acetaminophen 650 MG Q4H PRN PRN 10/01 44 AC 10/03 PO 10/31 004 1449 Glucagon 1 MG ASDIR PRN 10/01 44 AC IM 11/01 43 Labetalol HCl 10 MG Q4H PRN PRN 10/01 44 AC IV 11/01 43 Ondansetron HCl 4 MG Q4H PRN PRN 10/01 44 AC 10/01 IV 11/01 43 1534 Albuterol Sulfate 1.25 MG RTQ6H PRN 10/01 003 AC NEB 10/31 0029 Colchicine 0.6 MG DAILY PRN PRN 10/01 29 AC PO 10/31 002 Morphine Sulfate 2 MG Q6H PRN PRN 10/01 29 D C IV 10/06 28 Nitroglycerin 0.4 MG Q5M PRN PRN 10/01 29 AC SL 10/31 28 Laboratory Tests: 10/06 10/06 10/06 10/06 10/05 0630 0531 0531 0019 1835 Chemistry Sodium (134 - 147 mEq/L) 137 Potassium (3.4 - 5.0 mEq/L) 4.2 Chloride (100 - 108 mEq/L) 103 Carbon Dioxide (21 - 33 mEq/l) 26 Anion Gap (0 - 20) 12 BUN (7 - 18 mg/dL) 25 H Creatinine (0.6 - 1.3 mg/dL) 1.8 H Glomerular Filtr Rate (70 - 80) 37.4 L Glucose (70 - 110 mg/dL) 185 H POC Glucose (70 - 110 MG/DL) 160 H 181 H 122 H 214 H Calcium (8.0 - 10.5 mg/dL) 9.3 Magnesium (1.80 - 2.40 mg/dL) 1.88 Coagulation INR (0.8 - 1.2) 1.1 PTT ([place]) (25.0 - 39.5 Seconds) 27.9 PT Patient/Control Mix (9.3 - 12.9 12.4 SECONDS) Hematology WBC (4.5 - 11.0 x10 3/uL) 8.2 RBC (4.00 - 5.60 x10 6/uL) 3.92 L Hgb (12.5 - 16.9 g/dL) 11.5 L Hct (37.5 - 50.7 %) 35.5 L MCV (81.0 - 99.0 fL) 90.6 MCH (27.0 - 33.0 pg) 29.3 MCHC (33.0 - 37.0 g/dL) 32.4 L RDW (11.5 - 14.5 %) 15.9 H Plt Count (150 - 400 x10 3/uL) 155 MPV (7.0 - 9.0 fL) 10.8 H Neut % (Auto) (56.0 - 77.0 %) 64.7 Lymph % (Auto) (14.0 - 32.0 %) 19.5 Fisher % (Auto) (4.8 - 9.0 %) 9.1 H Eos % (Auto) (0.3 - 3.7 %) 5.5 H Baso % (Auto) (0.0 - 2.0 %) 0.7 Neut # (Auto) (2.0 - 7.6 x10 3/uL) 5.27 Lymph # (Auto) (1.0 - 3.8 x10 3/uL) 1.59 Fisher # (Auto) (0.1 - 0.8 x10 3/uL) 0.74 Eos # (Auto) (0.0 - 0.2 x10 3/uL) 0.45 H Baso # (Auto) (0.0 - 0.2 x10 3/uL) 0.06 Abs Immat Gran (auto) (0.00 - 0.03 0.04 H x10 3/uL) Add Manual Diff NO Immature Gran % (0.0 - 2.0 %) 0.5 Nucleated RBC % (0 - 0 %) 0.0 Nucleated RBCs # (Man) (0.0 - 0.1 0.00 x10 3/uL) 10/05 10/05 10/05 1552 1208 1148 Chemistry Sodium (134 - 147 mEq/L) 135 Potassium (3.4 - 5.0 mEq/L) 5.0 Chloride (100 - 108 mEq/L) 101 Carbon Dioxide (21 - 33 mEq/l) 27 Anion Gap (0 - 20) 12 BUN (7 - 18 mg/dL) 26 H Creatinine (0.6 - 1.3 mg/dL) 1.9 H Glomerular Filtr Rate (70 - 80) 35.0 L Glucose (70 - 110 mg/dL) 280 H POC Glucose (70 - 110 MG/DL) 269 H 282 H Calcium (8.0 - 10.5 mg/dL) 9.4 Hematology WBC (4.5 - 11.0 x10 3/uL) 7.8 RBC (4.00 - 5.60 x10 6/uL) 4.20 Hgb (12.5 - 16.9 g/dL) 12.2 L Hct (37.5 - 50.7 %) 38.1 MCV (81.0 - 99.0 fL) 90.7 MCH (27.0 - 33.0 pg) 29.0 MCHC (33.0 - 37.0 g/dL) 32.0 L RDW (11.5 - 14.5 %) 15.9 H Plt Count (150 - 400 x10 3/uL) 162 MPV (7.0 - 9.0 fL) 10.6 H Neut % (Auto) (56.0 - 77.0 %) 66.4 Lymph % (Auto) (14.0 - 32.0 %) 18.6 Fisher % (Auto) (4.8 - 9.0 %) 8.2 Eos % (Auto) (0.3 - 3.7 %) 5.8 H Baso % (Auto) (0.0 - 2.0 %) 0.5 Neut # (Auto) (2.0 - 7.6 x10 3/uL) 5.16 Lymph # (Auto) (1.0 - 3.8 x10 3/uL) 1.45 Fisher # (Auto) (0.1 - 0.8 x10 3/uL) 0.64 Eos # (Auto) (0.0 - 0.2 x10 3/uL) 0.45 H Baso # (Auto) (0.0 - 0.2 x10 3/uL) 0.04 Abs Immat Gran (auto) (0.00 - 0.03 x10 3/uL) 0. 04 H Add Manual Diff NO Immature Gran % (0.0 - 2.0 %) 0.5 Nucleated RBC % (0 - 0 %) 0.0 Nucleated RBCs # (Man) (0.0 - 0.1 x10 3/uL) 0. 00 Recent Impressions: ULTRASOUND - DUP VEIN DAMIAN 10/05 7582 Report Impression - Status: SIGNED Entered: 10/05/2022 1544 IMPRESSION: No evidence of deep vein thrombosis. Area of concern in the right mid calf correspond s to a heterogeneous hypoechoic area measuring 5.7 x 1. 2 x 4.6 cm; no internal vascular flow or peripheral hyperemia. Likely represents a hematoma. Impression By: [email or web address] - Adam Neves M.D. RADIOLOGY - XR CHEST 1 V 10/06 0744 Report Impression - Status: SIGNED Entered: 10/06/2022 0903 IMPRESSION: No acute cardiopulmonary findings. Impression By: Jose - Gonzalez Gandara Diagnosis, Assessment Plan Free Text DxA P Notes Free text DxA P notes: Assessment and Plan 1. CAD (coronary artery disease) -NSTEMI -Multi-vessel CAD with left main disease. -CVS consult -BB, ASA, Statin. -Heparin drip -Patient determined to be too high risk for CAB G Plan for PCI of LAD and RCA on Saturday 10/07 2. HTN (hypertension) PRN labetalol continue with metoprolol Hold marlena due to ckd 3. DM type 2 (diabetes mellitus, type 2) with h yperglycemia Resume home Insulin. ISS. Adjsut home insulin a s needed. HGA1c 9.8 -NovoLog 40 units TID, Lantus 50 units at bedti me, Aggressive SS 4. CKD (chronic kidney disease) stage 4, GFR 15 -29 ml/min hold marlena. Monitor due to recent cath. 10/02 -creatinine increased to 2.8, monitor 10/03 nephrology consulted. Renal ultrasound wit h absent left kidney. 5. Chronic diastolic heart failure Chronic diastolic dysfuntion. LVEF 55-60% Currently compensated w/o acute exacerbation. CXR and [place] was normal per records. Furosemide 40 mg daily 6. BPH (benign prostatic hyperplasia) resume proscar and flomax 7. Asthma stable 8. Gout stable resume allopurinol 9. Dyslipidemia resume lipitor 10. Cellulitis Continue with Augmentin from previous hospital 11. Hematoma , anterior RLE patient was upset and requested additional imag ing US ordered, confirmed hematoma s/p fall Morbid obesity BMI 49.8. Will need to fo llow-up outpatient with PCP for weight loss Resuscitation discussion: Discussed with: patient Code status: full code Disposition: status post PCI placement 10/06- PCI planned today. d/w cardiology Quality: Gen Med Crit Care VTE Prophylaxis VTE prophylaxis initiated: yes Current Medications Current medication review: I attest that the foregoing medication list in t he medical record is true, accurate, and complete to the best of my knowled ge. Advanced Care Plan 65 or Older Discussed with: patient Discussion included: living will (none), power of workers compensation defense attorney (none), code status ( full code) Electronically Signed by Floyd Mccarthy MD on 09/23 06/15 at 1051 RPT #:[id number] END OF REPORT 2022-10-06 [facility] 09:33:00-00:00 [facility] ([facility] Cardiology Progress Note REPORT#:[id number] REPORT STATUS: Signed DATE:10/06/22 TIME: 932 PATIENT: ERIKA BROWN UNIT #: [id number] ROOM/BED: [place] [address] : 41 AGE: 82 SEX: M ATTEND: Floyd Mccarthy MD ADM AUTHOR: Kathya Sorensen SENIOR TECHNICAL BUSINESS ANALYST * ALL edits or amendments must be made on the [employer]/better. document * See Addendum Subjective Patient reports: No: chest pain, palpitations, shortness of breat h. Review of Systems Respiratory: Denies: SOB. Cardiovascular: Denies: chest pain. Objective General VS/I O: 24 hour I O ending at 0700: 10/06 0700 10/05 1900 Intake Total 500 Output Total 1375 1600 Balance -1375 -1100 Intake, Oral 500 Output, Urine 1375 1600 Vital Signs: Date Time Temp Pulse Resp B/P B/P Pulse O2 O2 F low FiO2 Mean Ox Delivery Rate 10/06 0629 37.2 78 14 138/77 97.4 96 Room air 10/06 0412 36.2 68 15 114/66 82.2 95 Room air 10/05 2338 36.5 76 14 128/72 0.0 95 Room air 10/05 1836 36.5 80 15 148/86 106.9 98 10/05 1556 36.6 71 18 154/85 108.2 98 Room air 10/05 1209 36.5 63 18 146/70 95.4 96 Room air PATIENT WEIGHT: Weight (lb): 337 Weight (oz): 4.92 Weight (kg): 152.861 Medications: Active Meds + DC'd Last 24 Hrs Acetylcysteine (N-ACETYLCYSTEINE) 600 MG Q12HR P O (UNVr) Sodium Chloride (SODIUM CHLORIDE 0.9%) 1,000 ML .Q20H IV Insulin Human Lispro (HUMALOG) 0 Q6HR SUBQ Clopidogrel Bisulfate (Plavix) 75 MG DAILY PO Dextrose/Water (DEXTROSE 10% IN WATER) 125 ML DIR PRN IV (CKD) Dextrose/Water (DEXTROSE 10% IN WATER) 250 ML DIR PRN IV (CKD) Glucagon (GLUCAGON) 1 MG ASDIR PRN IM Metoprolol Tartrate (LOPRESSOR) 25 MG BID PO Amoxicillin/Clavulanate Potassium (AUGMENTIN 500 ) 500 MG Q12H PO (DC) Atorvastatin Calcium (LIPITOR) 40 MG 2100 PO Insulin Glargine (Semglee) 50 UNIT BEDTIME SUBQ Allopurinol (ZYLOPRIM) 100 MG DAILY PO Aspirin (ASPIRIN) 81 MG DAILY PO Escitalopram Oxalate (LEXAPRO) 10 MG DAILY PO Finasteride (PROSCAR) 5 MG DAILY PO Montelukast Sodium (SINGULAIR) 10 MG DAILY PO Nystatin (MYCOSTATIN 15 GM CREAM) 1 APPLIC BID T OPICAL Pregabalin (LYRICA) 75 MG TID PO Tamsulosin HCl (Flomax 0.4 mg) 0.4 MG DAILY PO Insulin Human Lispro (HUMALOG) 40 UNIT TID MEALS SUBQ Pantoprazole (PROTONIX) 40 MG AC BK PO Acetaminophen (TYLENOL) 650 MG Q4H PRN PRN PO Glucagon (GLUCAGON) 1 MG ASDIR PRN IM Labetalol HCl (LABETALOL HCL) 10 MG Q4H PRN PRN IV Ondansetron HCl (ZOFRAN) 4 MG Q4H PRN PRN IV Albuterol Sulfate (ALBUTEROL SULFATE) 1.25 MG RT Q6H PRN NEB Colchicine (COLCRYS) 0.6 MG DAILY PRN PRN PO Morphine Sulfate (morphine SULFATE) 2 MG Q6H PRN PRN IV (DC) Nitroglycerin (NITROSTAT) 0.4 MG Q5M PRN PRN SL Physical Exam General appearance: obese, alert, awake, oriente d Neck: no JVD Cardiovascular: CV assessment: regular rate and rhythm Respiratory: decreased breath sounds, on oxygen, no distress Abdomen: non-tender Genitourinary: urinary catheter, urine Lower extremity: LE assessment: edema (trace) Neuro/CONTINUOUS MINER: alert Skin: lesion (LE), rash Psychiatry: normal affect, normal mood Results Findings/Data: Laboratory Tests 10/06 10/06 10/06 10/06 10/05 0630 0531 0531 0019 1835 Chemistry Sodium (134 - 147 mEq/L) 137 Potassium (3.4 - 5.0 mEq/L) 4.2 Chloride (100 - 108 mEq/L) 103 Carbon Dioxide (21 - 33 mEq/l) 26 Anion Gap (0 - 20) 12 BUN (7 - 18 mg/dL) 25 H Creatinine (0.6 - 1.3 mg/dL) 1.8 H Glomerular Filtr Rate (70 - 80) 37.4 L Glucose (70 - 110 mg/dL) 185 H POC Glucose (70 - 110 MG/DL) 160 H 181 H 122 H 214 H Calcium (8.0 - 10.5 mg/dL) 9.3 Magnesium (1.80 - 2.40 mg/dL) 1.88 10/05 10/05 10/05 1552 1208 1148 Chemistry Sodium (134 - 147 mEq/L) 135 Potassium (3.4 - 5.0 mEq/L) 5.0 Chloride (100 - 108 mEq/L) 101 Carbon Dioxide (21 - 33 mEq/l) 27 Anion Gap (0 - 20) 12 BUN (7 - 18 mg/dL) 26 H Creatinine (0.6 - 1.3 mg/dL) 1.9 H Glomerular Filtr Rate (70 - 80) 35.0 L Glucose (70 - 110 mg/dL) 280 H POC Glucose (70 - 110 MG/DL) 269 H 282 H Calcium (8.0 - 10.5 mg/dL) 9.4 Laboratory Tests 10/06 0531 Coagulation INR (0.8 - 1.2) 1.1 PTT ([place]) (25.0 - 39.5 Seconds) 27.9 PT Patient/Control Mix (9.3 - 12.9 SECONDS) 12. 4 Laboratory Tests 10/06 10/05 0531 1148 Hematology WBC (4.5 - 11.0 x10 3/uL) 8.2 7.8 RBC (4.00 - 5.60 x10 6/uL) 3.92 L 4.20 Hgb (12.5 - 16.9 g/dL) 11.5 L 12.2 L Hct (37.5 - 50.7 %) 35.5 L 38.1 MCV (81.0 - 99.0 fL) 90.6 90.7 MCH (27.0 - 33.0 pg) 29.3 29.0 MCHC (33.0 - 37.0 g/dL) 32.4 L 32.0 L RDW (11.5 - 14.5 %) 15.9 H 15.9 H Plt Count (150 - 400 x10 3/uL) 155 162 MPV (7.0 - 9.0 fL) 10.8 H 10.6 H Neut % (Auto) (56.0 - 77.0 %) 64.7 66.4 Lymph % (Auto) (14.0 - 32.0 %) 19.5 18.6 Fisher % (Auto) (4.8 - 9.0 %) 9.1 H 8.2 Eos % (Auto) (0.3 - 3.7 %) 5.5 H 5.8 H Baso % (Auto) (0.0 - 2.0 %) 0.7 0.5 Neut # (Auto) (2.0 - 7.6 x10 3/uL) 5.27 5.16 Lymph # (Auto) (1.0 - 3.8 x10 3/uL) 1.59 1.45 Fisher # (Auto) (0.1 - 0.8 x10 3/uL) 0.74 0.64 Eos # (Auto) (0.0 - 0.2 x10 3/uL) 0.45 H 0.45 H Baso # (Auto) (0.0 - 0.2 x10 3/uL) 0.06 0.04 Abs Immat Gran (auto) (0.00 - 0.03 x10 3/uL) 0. 04 H 0.04 H Add Manual Diff NO NO Immature Gran % (0.0 - 2.0 %) 0.5 0.5 Nucleated RBC % (0 - 0 %) 0.0 0.0 Nucleated RBCs # (Man) (0.0 - 0.1 x10 3/uL) 0.0 0 0.00 Laboratory Tests 10/06 0531 Chemistry Magnesium (1.80 - 2.40 mg/dL) 1.88 Radiology data: Recent Impressions: ULTRASOUND - DUP VEIN DAMIAN 10/05 1448 Report Impression - Status: SIGNED Entered: 10/05/2022 1544 IMPRESSION: No evidence of deep vein thrombosis. Area of concern in the right mid calf correspond s to a heterogeneous hypoechoic area measuring 5.7 x 1. 2 x 4.6 cm; no internal vascular flow or peripheral hyperemia. Likely represents a hematoma. Impression By: Andres Neves M.D. RADIOLOGY - XR CHEST 1 V 10/06 0744 Report Impression - Status: SIGNED Entered: 10/06/2022 0903 IMPRESSION: No acute cardiopulmonary findings. Impression By: Gonzalez Kidd Results: labs reviewed, vital signs reviewed, [facility] personally rev'd Telemetry Interpretation: sinus rhythm Diagnosis, Assessment Plan Plan discussed with: patient , spouse/partner, admitting physician, collaborating MD, consultants, primary care physician, nurse Free Text DxA P Notes Free Text DxA P Notes: 82 YO male with PMHx of CAD, [place] with prior PCI/D ES, HTN, DM, HLD, CHF, morbid obesity, CKD who was admitted at [facility] with chest pain ruled in for NSTEMI. LHC revealed multive ssel CAD including distal left main. The patient is transferred to this facility for CABG evaluation . 1. NSTEMI/Multivessel CAD including distal LM * too high risk for CABG, STS score for operativ e mortality for isolated CABG 12.2% * Impella-assisted high risk PCI to the LAD and RCA today, cleared by Nephrology Dr. Gan * DAPT, BB, statin * NPO after breakfast 2. Chronic CHF * BNP normal * echo preserved LvEF 3. Hypertension * continue metoprolol to 25 mg BID 4. Diabetes mellitus * manage per PCP 5. CKD * creat better, down to 1.8 today * nephrology following 6. Asthma Treatment plan discussed indepth with patient santino feliciano his Tushar ) at 1128 Addendum 1: 10/06/22 1356 by Kathya SorensenP PCI rescheduled for tomorrow. Dr. Ricci spoke with the patient about the change of schedule. at 1357 RPT #:[id number] END OF REPORT 2022-10-06 [facility] 09:28:00-00:00 [facility] ([facility]) Nephrology Progress Note REPORT#:[id number] REPORT STATUS: Signed DATE:10/06/22 TIME: 927 PATIENT: ERIKA BROWN UNIT #: [id number] ROOM/BED: [place] [address] : 41 AGE: 82 SEX: M ATTEND: Floyd Mccarthy MD ADM AUTHOR: Jaz Gan MD * ALL edits or amendments must be made on the [employer]/better. document * Subjective Chief complaint: follow up of CKD, ARF, Chest pain Review of Systems Constitutional: Reports: generalized weakness. Objective General VS/I O: Vital Signs: Date Time Temp Pulse Resp B/P B/P Pulse O2 O2 F low FiO2 Mean Ox Delivery Rate 10/06 0629 99.0 78 14 138/77 97.4 96 Room air 10/06 0412 97.2 68 15 114/66 82.2 95 Room air 10/05 2338 97.7 76 14 128/72 0.0 95 Room air 10/05 1836 97.7 80 15 148/86 106.9 98 10/05 1556 97.9 71 18 154/85 108.2 98 Room air 10/05 1209 97.7 63 18 146/70 95.4 96 Room air 24 hour I O ending at 0700: 10/06 0700 10/05 1900 Intake Total 500 Output Total 1375 1600 Balance -1375 -1100 Intake, Oral 500 Output, Urine 1375 1600 PATIENT WEIGHT: Weight (lb): 337 Weight (oz): 4.92 Weight (kg): 152.861 Medications Active Meds + DC'd Last 24 Hrs Sodium Chloride (SODIUM CHLORIDE 0.9%) 1,000 ML .Q20H IV Insulin Human Lispro (HUMALOG) 0 Q6HR SUBQ Clopidogrel Bisulfate (Plavix) 75 MG DAILY PO Dextrose/Water (DEXTROSE 10% IN WATER) 125 ML DIR PRN IV (CKD) Dextrose/Water (DEXTROSE 10% IN WATER) 250 ML DIR PRN IV (CKD) Glucagon (GLUCAGON) 1 MG ASDIR PRN IM Metoprolol Tartrate (LOPRESSOR) 25 MG BID PO Amoxicillin/Clavulanate Potassium (AUGMENTIN 500 ) 500 MG Q12H PO (DC) Atorvastatin Calcium (LIPITOR) 40 MG 2100 PO Insulin Glargine (Semglee) 50 UNIT BEDTIME SUBQ Allopurinol (ZYLOPRIM) 100 MG DAILY PO Aspirin (ASPIRIN) 81 MG DAILY PO Escitalopram Oxalate (LEXAPRO) 10 MG DAILY PO Finasteride (PROSCAR) 5 MG DAILY PO Montelukast Sodium (SINGULAIR) 10 MG DAILY PO Nystatin (MYCOSTATIN 15 GM CREAM) 1 APPLIC BID T OPICAL Pregabalin (LYRICA) 75 MG TID PO Tamsulosin HCl (Flomax 0.4 mg) 0.4 MG DAILY PO Insulin Human Lispro (HUMALOG) 40 UNIT TID MEALS SUBQ Pantoprazole (PROTONIX) 40 MG AC BK PO Acetaminophen (TYLENOL) 650 MG Q4H PRN PRN PO Glucagon (GLUCAGON) 1 MG ASDIR PRN IM Labetalol HCl (LABETALOL HCL) 10 MG Q4H PRN PRN IV Ondansetron HCl (ZOFRAN) 4 MG Q4H PRN PRN IV Albuterol Sulfate (ALBUTEROL SULFATE) 1.25 MG RT Q6H PRN NEB Colchicine (COLCRYS) 0.6 MG DAILY PRN PRN PO Morphine Sulfate (morphine SULFATE) 2 MG Q6H PRN PRN IV (DC) Nitroglycerin (NITROSTAT) 0.4 MG Q5M PRN PRN SL Physical Exam General appearance: alert, awake, oriented Head/eyes: atraumatic, normocephalic ENT: moist mucous membranes Neck: supple/no meningismus, no JVD Cardiovascular: no murmur, no rub Respiratory: aerating well, clear to auscultatio n Abdomen: non-tender, soft Genitourinary: no bladder distention Extremities: swelling Neuro/CONTINUOUS MINER: alert, oriented X 3 Results Findings/Data: Laboratory Tests 10/0630 0531 0531 0019 1835 Chemistry Sodium (134 - 147 mEq/L) 137 Potassium (3.4 - 5.0 mEq/L) 4.2 Chloride (100 - 108 mEq/L) 103 Carbon Dioxide (21 - 33 mEq/l) 26 Anion Gap (0 - 20) 12 BUN (7 - 18 mg/dL) 25 H Creatinine (0.6 - 1.3 mg/dL) 1.8 H Glomerular Filtr Rate (70 - 80) 37.4 L Glucose (70 - 110 mg/dL) 185 H POC Glucose (70 - 110 MG/DL) 160 H 181 H 122 H 214 H Calcium (8.0 - 10.5 mg/dL) 9.3 Magnesium (1.80 - 2.40 mg/dL) 1.88 10/05 10/05 10/05 1552 1208 1148 Chemistry Sodium (134 - 147 mEq/L) 135 Potassium (3.4 - 5.0 mEq/L) 5.0 Chloride (100 - 108 mEq/L) 101 Carbon Dioxide (21 - 33 mEq/l) 27 Anion Gap (0 - 20) 12 BUN (7 - 18 mg/dL) 26 H Creatinine (0.6 - 1.3 mg/dL) 1.9 H Glomerular Filtr Rate (70 - 80) 35.0 L Glucose (70 - 110 mg/dL) 280 H POC Glucose (70 - 110 MG/DL) 269 H 282 H Calcium (8.0 - 10.5 mg/dL) 9.4 Laboratory Tests 10/06 0531 Coagulation INR (0.8 - 1.2) 1.1 PTT ([place]) (25.0 - 39.5 Seconds) 27.9 PT Patient/Control Mix (9.3 - 12.9 SECONDS) 12. 4 Laboratory Tests 10/06 10/05 0531 1148 Hematology WBC (4.5 - 11.0 x10 3/uL) 8.2 7.8 RBC (4.00 - 5.60 x10 6/uL) 3.92 L 4.20 Hgb (12.5 - 16.9 g/dL) 11.5 L 12.2 L Hct (37.5 - 50.7 %) 35.5 L 38.1 MCV (81.0 - 99.0 fL) 90.6 90.7 MCH (27.0 - 33.0 pg) 29.3 29.0 MCHC (33.0 - 37.0 g/dL) 32.4 L 32.0 L RDW (11.5 - 14.5 %) 15.9 H 15.9 H Plt Count (150 - 400 x10 3/uL) 155 162 MPV (7.0 - 9.0 fL) 10.8 H 10.6 H Neut % (Auto) (56.0 - 77.0 %) 64.7 66.4 Lymph % (Auto) (14.0 - 32.0 %) 19.5 18.6 Fisher % (Auto) (4.8 - 9.0 %) 9.1 H 8.2 Eos % (Auto) (0.3 - 3.7 %) 5.5 H 5.8 H Baso % (Auto) (0.0 - 2.0 %) 0.7 0.5 Neut # (Auto) (2.0 - 7.6 x10 3/uL) 5.27 5.16 Lymph # (Auto) (1.0 - 3.8 x10 3/uL) 1.59 1.45 Fisher # (Auto) (0.1 - 0.8 x10 3/uL) 0.74 0.64 Eos # (Auto) (0.0 - 0.2 x10 3/uL) 0.45 H 0.45 H Baso # (Auto) (0.0 - 0.2 x10 3/uL) 0.06 0.04 Abs Immat Gran (auto) (0.00 - 0.03 x10 3/uL) 0. 04 H 0.04 H Add Manual Diff NO NO Immature Gran % (0.0 - 2.0 %) 0.5 0.5 Nucleated RBC % (0 - 0 %) 0.0 0.0 Nucleated RBCs # (Man) (0.0 - 0.1 x10 3/uL) 0.0 0 0.00 Radiology data: Recent Impressions: ULTRASOUND - DUP VEIN DAMIAN 10/05 1448 Report Impression - Status: SIGNED Entered: 10/05/2022 5561 IMPRESSION: No evidence of deep vein thrombosis. Area of concern in the right mid calf correspond s to a heterogeneous hypoechoic area measuring 5.7 x 1. 2 x 4.6 cm; no internal vascular flow or peripheral hyperemia. Likely represents a hematoma. Impression By: LucABKevin - Adam Neves M.D. RADIOLOGY - XR CHEST 1 V 10/06 0744 Report Impression - Status: SIGNED Entered: 10/06/2022 0903 IMPRESSION: No acute cardiopulmonary findings. Impression By: Gonzalez Kidd Diagnosis, Assessment Plan Free Text A P: Assessment/plan: 1. Acute renal failure: Most likely secondary to contrast versus polyuric phase after placement of Atwood's, off lisinopril, off Lasix, on ivf, renal sono right kidney ok, absent left kidney, avoid nep hrotoxic medications/contrast for now, Cr 2.5-2.8-2.9-2.5-1.9-1.8 t amado, restarted IVF for cath today, few doses of po mucomyst given as well 2. CKD 4: Baseline creatinine not known, back in 2011 it was 2.6 3. Coronary artery disease: S/p cath, PCI in chuy n, will need PAVITHRA prophylaxis 4. CHF: Negative balance, holding diuretics for worsening kidney function, monitor closely for any volume overload, preserv ed ejection fraction 5. BPH: Continue Flomax, will check PSA levels, needs urology for obstructive uropathy 6. Urinary retention/obstructive uropathy 7. Diabetes mellitus: Treatment as per p jaeary tea diffusion she is has been m Electronically Signed by Jaz Gan MD on 10/06 at 0930 RPT #:[id number] END OF REPORT 2022-10-05 [facility] 09:28:00-00:00 [facility] ([facility] Cardiology Progress Note REPORT#:[id number] REPORT STATUS: Signed DATE:10/05/22 TIME: 927 PATIENT: ERIKA BROWN UNIT #: [id number] ROOM/BED: [place] [address] : 41 AGE: 82 SEX: M ATTEND: Zan Prieto DO ADM AUTHOR: Isra Hdz MD * ALL edits or amendments must be made on the [employer]/computer document * Subjective Chief complaint: Chest pain Objective General VS/I O: 24 hour I O ending at 0700: 10/05 0700 10/04 1900 Intake Total 420 Output Total 2550 1999 Balance -2129 Intake, Oral 420 Number 1 3 Bowel Movements Output, Urine 2550 1999 Vital Signs: Date Time Temp Pulse Resp B/P B/P Pulse O2 O2 F low FiO2 Mean Ox Delivery Rate 10/05 0801 36.6 72 18 173/93 119.6 98 Room air 10/05 0549 66 124/65 84.4 10/05 0352 36.5 68 19 166/83 110.8 95 10/04 2320 36.9 71 18 147/81 102.8 96 10/04 2150 77 16 159/76 103.7 98 10/04 1839 36.8 79 19 169/70 103.4 95 10/04 1622 36.6 68 18 141/70 93.9 98 Room air 10/04 1111 36.4 62 18 124/71 88.9 97 Room air PATIENT WEIGHT: Weight (lb): 337 Weight (oz): 4.92 Weight (kg): 152.861 Medications: Active Meds + DC'd Last 24 Hrs Sodium Chloride (SODIUM CHLORIDE 0.9%) 1,000 ML .Q20H ONE IV (DC) Insulin Human Lispro (HUMALOG) 0 Q6HR SUBQ Clopidogrel Bisulfate (Plavix) 75 MG DAILY PO Dextrose/Water (DEXTROSE 10% IN WATER) 125 ML DIR PRN IV (CKD) Dextrose/Water (DEXTROSE 10% IN WATER) 250 ML DIR PRN IV (CKD) Glucagon (GLUCAGON) 1 MG ASDIR PRN IM Metoprolol Tartrate (LOPRESSOR) 25 MG BID PO Sodium Chloride (SODIUM CHLORIDE 0.9%) 1,000 ML .Q20H IV (DC) Amoxicillin/Clavulanate Potassium (AUGMENTIN 500 ) 500 MG Q12H PO (CKD) Atorvastatin Calcium (LIPITOR) 40 MG 2100 PO Insulin Glargine (Semglee) 50 UNIT BEDTIME SUBQ Allopurinol (ZYLOPRIM) 100 MG DAILY PO Aspirin (ASPIRIN) 81 MG DAILY PO Escitalopram Oxalate (LEXAPRO) 10 MG DAILY PO Finasteride (PROSCAR) 5 MG DAILY PO Montelukast Sodium (SINGULAIR) 10 MG DAILY PO Nystatin (MYCOSTATIN 15 GM CREAM) 1 APPLIC BID T OPICAL Pregabalin (LYRICA) 75 MG TID PO Tamsulosin HCl (Flomax 0.4 mg) 0.4 MG DAILY PO Insulin Human Lispro (HUMALOG) 40 UNIT TID MEALS SUBQ Pantoprazole (PROTONIX) 40 MG AC BK PO Acetaminophen (TYLENOL) 650 MG Q4H PRN PRN PO Glucagon (GLUCAGON) 1 MG ASDIR PRN IM Labetalol HCl (LABETALOL HCL) 10 MG Q4H PRN PRN IV Ondansetron HCl (ZOFRAN) 4 MG Q4H PRN PRN IV Albuterol Sulfate (ALBUTEROL SULFATE) 1.25 MG RT Q6H PRN NEB Colchicine (COLCRYS) 0.6 MG DAILY PRN PRN PO Morphine Sulfate (morphine SULFATE) 2 MG Q6H PRN PRN IV Nitroglycerin (NITROSTAT) 0.4 MG Q5M PRN PRN SL Physical Exam General appearance: awake Neck: no JVD Cardiovascular: CV assessment: regular rate and rhythm Respiratory: decreased breath sounds, on oxygen, no distress Abdomen: non-tender Genitourinary: urinary catheter, urine Lower extremity: LE assessment: edema Neuro/CONTINUOUS MINER: alert Skin: lesion (LE), rash Psychiatry: normal affect, normal mood Results Findings/Data: Laboratory Tests 10/05 10/04 10/04 10/04 10/04 0514 2344 1902 1621 1105 Chemistry POC Glucose (70 - 110 MG/DL) 158 H 238 H 198 H 165 H 297 H Diagnosis, Assessment Plan Free Text DxA P Notes Free Text DxA P Notes: 82 YO male with PMHx of CAD, [place] with prior PCI/D ES, HTN, DM, HLD, CHF, morbid obesity, CKD who was admitted at [facility] with chest pain ruled in for NSTEMI. LHC revealed multive ssel CAD including distal left main. The patient is transferred to this facility for CABG evaluation . Currently patient is chest pain free. 1. NSTEMI/Multivessel CAD including distal LM * too high risk for CABG, STS score for operativ e mortality for isolated CABG 12.2% * plan for Impella-assisted high risk PC I to the LAD and RCA on Thursday pending nephrology clearance * Stop heparin gtt, load Plavix 300 mg today the n 75 mg daily * ASA, Statin, BB 2. Chronic CHF * BNP normal * echo preserved LvEF 3. Hypertension * BP soft, and creat on upward trend * stop enalapril, decrease metoprolol to 25 mg B ID 4. Diabetes mellitus * manage per PCP 5. CKD * creat 2.8->2.9 * nephrology consultation 6. Asthma Plan discussed with patient, he consented to pro ceed with PCI tentatively for Thursday, answered all his questions. MDM by Dr. Ricci. 10/04 pt reports no cp not sob appears stable stable hemodynamics pci thursday 10/05 stable no cp sob plan a s above discussed with pt Electronically Signed by Isra Hdz MD on at 0929 RPT #:[id number] END OF REPORT 2022-10-05 [facility] 07:38:00-00:00 [facility] Hospitalist Progress Note REPORT#:[id number] REPORT STATUS: Signed DATE:10/05/22 TIME: 07 PATIENT: ERIKA BROWN UNIT #: [id number] ROOM/BED: [place] [address] : 41 AGE: 82 SEX: M ATTEND: Zan Prieto DO ADM AUTHOR: Heena Ramirez DO * ALL edits or amendments must be made on the [employer]/computer document * Subjective Chief complaint: Patient denies chest pain or shortness of breath HPI: 82 y/o man with PMHx of CAD with multiple PCI/Stents/[place], Chronic diastolic CHF, HTN, DM, BPH, CKD 4, gout dyslipidemia and GERD that was admitted to [facility] with chest pain. recent admiss ion and discharge from same hospital and been at home si nce 09/26/22. continue to have chest pain. Patient had elevated troponin but no ST levation on EKG. Und erwent cardiac cath today and foun ou to have distal left main diseas of 90%, ostial LAD 90% with other lession with 60% and 80% osman nosis, Circ with ostial 90% and then patent stent ( Non dominant), RCA (large dominant) sten t with 50% ISR, Mid with 80% stenosis, PDA with with 80% stenosis. Free Text Subj Notes Free Text Subj Notes: Patient examined at the bedside and has no new c omplaints. PCI placement scheduled for October 07 Review of Systems Constitutional: Denies: chills, fever. Respiratory: Denies: MCCAULEY (dyspnea on exertion), SOB. Cardiovascular: Denies: chest pain, edema. Neuro: Denies: confusion, dizziness. All systems rev neg: except as noted Objective General VS/I O: Vital Signs: Date Time Temp Pulse Resp B/P B/P Pulse O2 O2 F low FiO2 Mean Ox Delivery Rate 10/05 1556 97.9 71 18 154/85 108.2 98 Room air 10/05 1209 97.7 63 18 146/70 95.4 96 Room air 10/05 0801 97.9 72 18 173/93 119.6 98 Room air 10/05 0549 66 124/65 84.4 10/05 0352 97.7 68 19 166/83 110.8 95 10/04 2320 98.4 71 18 147/81 102.8 96 10/04 2150 77 16 159/76 103.7 98 10/04 1839 98.2 79 19 169/70 103.4 95 10/04 1622 97.9 68 18 141/70 93.9 98 Room air 24 hour I O ending at 0700: 10/05 0700 10/04 1900 Intake Total 420 Output Total 2550 1999 Balance -2129 Intake, Oral 420 Number 1 3 Bowel Movements Output, Urine 2550 1999 PATIENT WEIGHT: Weight (lb): 337 Weight (oz): 4.92 Weight (kg): 152.861 Physical Exam General appearance: alert, awake, oriented, no a cute distress, no respiratory distress Head/Eyes: atraumatic, EOMI, normal conjunctiva/ sclera, normocephalic ENT: moist mucosal membranes Neck: full range of motion, no bruit/NL carotids , no JVD Cardiovascular: normal heart sounds, regular rat e rhythm Respiratory: aerating well, clear to auscultatio n, symmetric expansion, no distress Abdomen: non-tender Extremities: moves all, no cyanosis, no edema Neuro/CONTINUOUS MINER: alert, oriented X 3, normal speech, n o motor deficits, no sensory deficits Skin: intact, normal color, no rash Results Findings/Data: Laboratory Tests 10/05 10/05 10/05 10/05 10/04 1208 1148 0759 0514 2344 Chemistry Sodium (134 - 147 mEq/L) 135 Potassium (3.4 - 5.0 mEq/L) 5.0 Chloride (100 - 108 mEq/L) 101 Carbon Dioxide (21 - 33 mEq/l) 27 Anion Gap (0 - 20) 12 BUN (7 - 18 mg/dL) 26 H Creatinine (0.6 - 1.3 mg/dL) 1.9 H Glomerular Filtr Rate (70 - 80) 35.0 L Glucose (70 - 110 mg/dL) 280 H POC Glucose (70 - 110 MG/DL) 282 H 143 H 158 H 238 H Calcium (8.0 - 10.5 mg/dL) 9.4 10/04 10/04 1902 1621 Chemistry POC Glucose (70 - 110 MG/DL) 198 H 165 H Laboratory Tests 10/05 1148 Hematology WBC (4.5 - 11.0 x10 3/uL) 7.8 RBC (4.00 - 5.60 x10 6/uL) 4.20 Hgb (12.5 - 16.9 g/dL) 12.2 L Hct (37.5 - 50.7 %) 38.1 MCV (81.0 - 99.0 fL) 90.7 MCH (27.0 - 33.0 pg) 29.0 MCHC (33.0 - 37.0 g/dL) 32.0 L RDW (11.5 - 14.5 %) 15.9 H Plt Count (150 - 400 x10 3/uL) 162 MPV (7.0 - 9.0 fL) 10.6 H Neut % (Auto) (56.0 - 77.0 %) 66.4 Lymph % (Auto) (14.0 - 32.0 %) 18.6 Fisher % (Auto) (4.8 - 9.0 %) 8.2 Eos % (Auto) (0.3 - 3.7 %) 5.8 H Baso % (Auto) (0.0 - 2.0 %) 0.5 Neut # (Auto) (2.0 - 7.6 x10 3/uL) 5.16 Lymph # (Auto) (1.0 - 3.8 x10 3/uL) 1.45 Fisher # (Auto) (0.1 - 0.8 x10 3/uL) 0.64 Eos # (Auto) (0.0 - 0.2 x10 3/uL) 0.45 H Baso # (Auto) (0.0 - 0.2 x10 3/uL) 0.04 Abs Immat Gran (auto) (0.00 - 0.03 x10 3/uL) 0. 04 H Add Manual Diff NO Immature Gran % (0.0 - 2.0 %) 0.5 Nucleated RBC % (0 - 0 %) 0.0 Nucleated RBCs # (Man) (0.0 - 0.1 x10 3/uL) 0.0 0 Radiology data: Recent Impressions: ULTRASOUND - DUP VEIN DAMIAN 10/05 1148 Report Impression - Status: SIGNED Entered: 10/05/2022 6934 IMPRESSION: No evidence of deep vein thrombosis. Area of concern in the right mid calf correspond s to a heterogeneous hypoechoic area measuring 5.7 x 1. 2 x 4.6 cm; no internal vascular flow or peripheral hyperemia. Likely represents a hematoma. Impression By: [id number] - Adam Neves M.D. Results: labs reviewed Diagnosis, Assessment Plan Free Text DxA P Notes Free text DxA P notes: Assessment and Plan 1. CAD (coronary artery disease) -NSTEMI -Multi-vessel CAD with left main disease. -CVS consult -BB, ASA, Statin. -Heparin drip -Patient determined to be too high risk for CAB G Plan for PCI of LAD and RCA on Saturday 10/07 2. HTN (hypertension) PRN labetalol continue with metoprolol Hold marlena due to ckd 3. DM type 2 (diabetes mellitus, type 2) with h yperglycemia Resume home Insulin. ISS. Adjsut home insulin a s needed. HGA1c 9.8 -NovoLog 40 units TID, Lantus 50 units at bedti me, Aggressive SS 4. CKD (chronic kidney disease) stage 4, GFR 15 -29 ml/min hold marlena. Monitor due to recent cath. 10/02 -creatinine increased to 2.8, monitor 10/03 nephrology consulted. Renal ultrasound wit h absent left kidney. 5. Chronic diastolic heart failure Chronic diastolic dysfuntion. LVEF 55-60% Currently compensated w/o acute exacerbation. CXR and [place] was normal per records. Furosemide 40 mg daily 6. BPH (benign prostatic hyperplasia) resume proscar and flomax 7. Asthma stable 8. Gout stable resume allopurinol 9. Dyslipidemia resume lipitor 10. Cellulitis Continue with Augmentin from previous hospital 11. Hematoma , anterior RLE patient was upset and requested additional imag ing US ordered, confirmed hematoma s/p fall Morbid obesity BMI 49.8. Will need to fo llow-up outpatient with PCP for weight loss Resuscitation discussion: Discussed with: patient Code status: full code Disposition: status post PCI placement Thursday Quality: Gen Med Crit Care VTE Prophylaxis VTE prophylaxis initiated: yes Current Medications Current medication review: I attest that the foregoing medication list in t he medical record is true, accurate, and complete to the best of my knowled ge. Advanced Care Plan 65 or Older Discussed with: patient Discussion included: living will (none), power of workers compensation defense attorney (none), code status ( full code) Electronically Signed by Heena Ramirez DO on at 1618 RPT #:[id number] END OF REPORT 2022-10-04 [facility] 09:45:00-00:00 [facility] ([facility] Cardiology Progress Note REPORT#:[id number] REPORT STATUS: Signed DATE:10/04/22 TIME: 944 PATIENT: ERIKA BROWN UNIT #: [id number] ROOM/BED: 4408-1 : 41 AGE: 82 SEX: M ATTEND: Zan Prieto DO ADM AUTHOR: Isra Hdz MD * ALL edits or amendments must be made on the el [employer]/computer document * Subjective Chief complaint: Chest pain Objective General VS/I O: 24 hour I O ending at 0700: 10/04 0700 10/03 1900 Intake Total 90.30 Output Total 1999 1200 Balance -1999 -1109.70 Intake, IV 90.30 Number 1 Bowel Movements Output, Urine 1999 1200 Vital Signs: Date Time Temp Pulse Resp B/P B/P Pulse O2 O2 F low FiO2 Mean Ox Delivery Rate 10/04 0733 36.4 63 18 144/81 102.1 92 Nasal 3 cannula 10/04 0440 36.3 67 18 134/84 101.0 96 Room air 10/03 2343 36.6 72 16 128/73 91 94 Nasal cannula 10/03 1926 36.5 73 18 143/76 98.4 97 Room air 10/03 1455 36.4 71 148/76 100.2 96 10/03 1248 36.4 60 103/62 75.8 97 PATIENT WEIGHT: Weight (lb): 337 Weight (oz): 4.92 Weight (kg): 152.861 Medications: Active Meds + DC'd Last 24 Hrs Sodium Chloride (SODIUM CHLORIDE 0.9%) 1,000 ML .Q20H ONE IV Insulin Human Lispro (HUMALOG) 0 Q6HR SUBQ Clopidogrel Bisulfate (Plavix) 75 MG DAILY PO Dextrose/Water (DEXTROSE 10% IN WATER) 125 ML DIR PRN IV (CKD) Dextrose/Water (DEXTROSE 10% IN WATER) 250 ML DIR PRN IV (CKD) Glucagon (GLUCAGON) 1 MG ASDIR PRN IM Metoprolol Tartrate (LOPRESSOR) 25 MG BID PO Clopidogrel Bisulfate (CLOPIDOGREL BISULFATE) 30 0 MG ONCE ONE PO (DC) Sodium Chloride (SODIUM CHLORIDE 0.9%) 1,000 ML .Q20H IV Amoxicillin/Clavulanate Potassium (AUGMENTIN 500 ) 500 MG Q12H PO (CKD) Atorvastatin Calcium (LIPITOR) 40 MG 2100 PO Insulin Glargine (Semglee) 50 UNIT BEDTIME SUBQ Allopurinol (ZYLOPRIM) 100 MG DAILY PO Aspirin (ASPIRIN) 81 MG DAILY PO Escitalopram Oxalate (LEXAPRO) 10 MG DAILY PO Finasteride (PROSCAR) 5 MG DAILY PO Furosemide (LASIX) 40 MG DAILY PO (DC) Montelukast Sodium (SINGULAIR) 10 MG DAILY PO Nystatin (MYCOSTATIN 15 GM CREAM) 1 APPLIC BID T OPICAL Pregabalin (LYRICA) 75 MG TID PO Tamsulosin HCl (Flomax 0.4 mg) 0.4 MG DAILY PO Insulin Human Lispro (HUMALOG) 40 UNIT TID MEALS SUBQ Insulin Human Lispro (HUMALOG) 0 AC HS SUBQ (DC) Pantoprazole (PROTONIX) 40 MG AC BK PO Acetaminophen (TYLENOL) 650 MG Q4H PRN PRN PO Dextrose/Water (DEXTROSE 10% IN WATER) 125 ML DIR PRN IV (DC) Dextrose/Water (DEXTROSE 10% IN WATER) 250 ML DIR PRN IV (DC) Glucagon (GLUCAGON) 1 MG ASDIR PRN IM Labetalol HCl (LABETALOL HCL) 10 MG Q4H PRN PRN IV Ondansetron HCl (ZOFRAN) 4 MG Q4H PRN PRN IV Albuterol Sulfate (ALBUTEROL SULFATE) 1.25 MG RT Q6H PRN NEB Colchicine (COLCRYS) 0.6 MG DAILY PRN PRN PO Morphine Sulfate (morphine SULFATE) 2 MG Q6H PRN PRN IV Nitroglycerin (NITROSTAT) 0.4 MG Q5M PRN PRN SL Physical Exam General appearance: alert, awake Neck: no JVD Cardiovascular: CV assessment: regular rate and rhythm Respiratory: decreased breath sounds, on oxygen, no distress Abdomen: non-tender Genitourinary: urinary catheter, urine Lower extremity: LE assessment: edema Neuro/CONTINUOUS MINER: alert Skin: lesion (LE), rash Psychiatry: normal affect, normal mood Results Findings/Data: Laboratory Tests 10/04 10/04 10/03 10/03 10/03 0729 0427 1925 1503 1245 Chemistry Sodium (134 - 147 mEq/L) 137 Potassium (3.4 - 5.0 mEq/L) 4.9 Chloride (100 - 108 mEq/L) 104 Carbon Dioxide (21 - 33 mEq/l) 26 Anion Gap (0 - 20) 11 BUN (7 - 18 mg/dL) 33 H Creatinine (0.6 - 1.3 mg/dL) 2.5 H Glomerular Filtr Rate (70 - 80) 25.2 L Glucose (70 - 110 mg/dL) 264 H POC Glucose (70 - 110 MG/DL) 229 H 184 H 158 H 257 H Calcium (8.0 - 10.5 mg/dL) 8.3 10/03 10/03 1224 1224 Chemistry Prostate Specific Ag (0.00 - 4.00 ng/mL) 0.37 Free PSA (N/A ng/mL) 0.09 Total PSA (0.0 - 4.0 ng/mL) 0.4 PSA Free/Total Ratio (() %) 22.5 Laboratory Tests 10/03 2334 Coagulation PTT ([place]) (25.0 - 39.5 Seconds) 28.1 Laboratory Tests 10/04 0427 Hematology WBC (4.5 - 11.0 x10 3/uL) 6.9 RBC (4.00 - 5.60 x10 6/uL) 3.84 L Hgb (12.5 - 16.9 g/dL) 11.2 L Hct (37.5 - 50.7 %) 35.3 L MCV (81.0 - 99.0 fL) 91.9 MCH (27.0 - 33.0 pg) 29.2 MCHC (33.0 - 37.0 g/dL) 31.7 L RDW (11.5 - 14.5 %) 15.6 H Plt Count (150 - 400 x10 3/uL) 147 L MPV (7.0 - 9.0 fL) 10.8 H Neut % (Auto) (56.0 - 77.0 %) 52.6 L Lymph % (Auto) (14.0 - 32.0 %) 27.6 Fisher % (Auto) (4.8 - 9.0 %) 11.5 H Eos % (Auto) (0.3 - 3.7 %) 6.7 H Baso % (Auto) (0.0 - 2.0 %) 0.9 Neut # (Auto) (2.0 - 7.6 x10 3/uL) 3.62 Lymph # (Auto) (1.0 - 3.8 x10 3/uL) 1.90 Fisher # (Auto) (0.1 - 0.8 x10 3/uL) 0.79 Eos # (Auto) (0.0 - 0.2 x10 3/uL) 0.46 H Baso # (Auto) (0.0 - 0.2 x10 3/uL) 0.06 Abs Immat Gran (auto) (0.00 - 0.03 x10 3/uL) 0. 05 H Add Manual Diff NO Immature Gran % (0.0 - 2.0 %) 0.7 Nucleated RBC % (0 - 0 %) 0.0 Nucleated RBCs # (Man) (0.0 - 0.1 x10 3/uL) 0.0 0 Diagnosis, Assessment Plan Free Text DxA P Notes Free Text DxA P Notes: 82 YO male with PMHx of CAD, [place] with prior PCI/D ES, HTN, DM, HLD, CHF, morbid obesity, CKD who was admitted at [facility] with chest pain ruled in for NSTEMI. LHC revealed multive ssel CAD including distal left main. The patient is transferred to this facility for CABG evaluation . Currently patient is chest pain free. 1. NSTEMI/Multivessel CAD including distal LM * too high risk for CABG, STS score for operativ e mortality for isolated CABG 12.2% * plan for Impella-assisted high risk PC I to the LAD and RCA on Thursday pending nephrology clearance * Stop heparin gtt, load Plavix 300 mg today the n 75 mg daily * ASA, Statin, BB 2. Chronic CHF * BNP normal * echo preserved LvEF 3. Hypertension * BP soft, and creat on upward trend * stop enalapril, decrease metoprolol to 25 mg B ID 4. Diabetes mellitus * manage per PCP 5. CKD * creat 2.8->2.9 * nephrology consultation 6. Asthma Plan discussed with patient, he consented to pro ceed with PCI tentatively for Thursday, answered all his questions. MDM by Dr. Ricci. 10/04 pt reports no cp not sob appears stable stable hemodynamics pci thursday Electronically Signed by Isra Hdz MD on 02/14 at 0946 RPT #:[id number] END OF REPORT 2022-10-04 [facility] 08:34:00-00:00 [facility] ([facility] Nephrology Progress Note REPORT#:[id number] REPORT STATUS: Signed DATE:10/04/22 TIME: 833 PATIENT: ERIKA BROWN UNIT #: [id number] ROOM/BED: [place] [address] : 41 AGE: 82 SEX: M ATTEND: Zan Prieto DO ADM AUTHOR: Jaz Gan MD * ALL edits or amendments must be made on the el [employer]/computer document * Subjective Chief complaint: follow up of CKD, ARF, Chest pain Review of Systems Constitutional: Reports: generalized weakness. All systems rev neg: except as marked Objective General VS/I O: Vital Signs: Date Time Temp Pulse Resp B/P B/P Pulse O2 O2 F low FiO2 Mean Ox Delivery Rate 10/04 0733 97.5 63 18 144/81 102.1 92 Nasal 3 cannula 10/04 0440 97.3 67 18 134/84 101.0 96 Room air 10/03 2343 97.9 72 16 128/73 91 94 Nasal cannula 10/03 1926 97.7 73 18 143/76 98.4 97 Room air 10/03 1455 97.5 71 148/76 100.2 96 10/03 1248 97.5 60 103/62 75.8 97 24 hour I O ending at 0700: 10/04 0700 10/03 1900 Intake Total 90.30 Output Total 1999 1200 Balance -1999 -1109.70 Intake, IV 90.30 Number 1 Bowel Movements Output, Urine 1999 1199 PATIENT WEIGHT: Weight (lb): 337 Weight (oz): 4.92 Weight (kg): 152.861 Medications Active Meds + DC'd Last 24 Hrs Sodium Chloride (SODIUM CHLORIDE 0.9%) 1,000 ML .Q20H ONE IV Insulin Human Lispro (HUMALOG) 0 Q6HR SUBQ Clopidogrel Bisulfate (Plavix) 75 MG DAILY PO Dextrose/Water (DEXTROSE 10% IN WATER) 125 ML DIR PRN IV (CKD) Dextrose/Water (DEXTROSE 10% IN WATER) 250 ML DIR PRN IV (CKD) Glucagon (GLUCAGON) 1 MG ASDIR PRN IM Metoprolol Tartrate (LOPRESSOR) 25 MG BID PO Sodium Chloride (SODIUM CHLORIDE 0.9%) 1,000 ML .Q20H IV Amoxicillin/Clavulanate Potassium (AUGMENTIN 500 ) 500 MG Q12H PO (CKD) Atorvastatin Calcium (LIPITOR) 40 MG 2100 PO Insulin Glargine (Semglee) 50 UNIT BEDTIME SUBQ Allopurinol (ZYLOPRIM) 100 MG DAILY PO Aspirin (ASPIRIN) 81 MG DAILY PO Escitalopram Oxalate (LEXAPRO) 10 MG DAILY PO Finasteride (PROSCAR) 5 MG DAILY PO Montelukast Sodium (SINGULAIR) 10 MG DAILY PO Nystatin (MYCOSTATIN 15 GM CREAM) 1 APPLIC BID T OPICAL Pregabalin (LYRICA) 75 MG TID PO Tamsulosin HCl (Flomax 0.4 mg) 0.4 MG DAILY PO Insulin Human Lispro (HUMALOG) 40 UNIT TID MEALS SUBQ Insulin Human Lispro (HUMALOG) 0 AC HS SUBQ (DC) Pantoprazole (PROTONIX) 40 MG AC BK PO Acetaminophen (TYLENOL) 650 MG Q4H PRN PRN PO Dextrose/Water (DEXTROSE 10% IN WATER) 125 ML DIR PRN IV (DC) Dextrose/Water (DEXTROSE 10% IN WATER) 250 ML DIR PRN IV (DC) Glucagon (GLUCAGON) 1 MG ASDIR PRN IM Labetalol HCl (LABETALOL HCL) 10 MG Q4H PRN PRN IV Ondansetron HCl (ZOFRAN) 4 MG Q4H PRN PRN IV Albuterol Sulfate (ALBUTEROL SULFATE) 1.25 MG RT Q6H PRN NEB Colchicine (COLCRYS) 0.6 MG DAILY PRN PRN PO Morphine Sulfate (morphine SULFATE) 2 MG Q6H PRN PRN IV Nitroglycerin (NITROSTAT) 0.4 MG Q5M PRN PRN SL Physical Exam General appearance: alert, awake, oriented Head/eyes: atraumatic, normocephalic ENT: moist mucous membranes Neck: supple/no meningismus, no JVD Cardiovascular: no murmur, no rub Respiratory: aerating well, clear to auscultatio n Abdomen: non-tender, soft Genitourinary: no bladder distention Extremities: swelling Neuro/CONTINUOUS MINER: alert, oriented X 3 Results Findings/Data: Laboratory Tests 10/04 10/04 10/04 10/03 10/03 1105 0729 0427 1925 1503 Chemistry Sodium (134 - 147 mEq/L) 137 Potassium (3.4 - 5.0 mEq/L) 4.9 Chloride (100 - 108 mEq/L) 104 Carbon Dioxide (21 - 33 mEq/l) 26 Anion Gap (0 - 20) 11 BUN (7 - 18 mg/dL) 33 H Creatinine (0.6 - 1.3 mg/dL) 2.5 H Glomerular Filtr Rate (70 - 80) 25.2 L Glucose (70 - 110 mg/dL) 264 H POC Glucose (70 - 110 MG/DL) 297 H 229 H 184 H 158 H Calcium (8.0 - 10.5 mg/dL) 8.3 Laboratory Tests 10/03 2334 Coagulation PTT ([place]) (25.0 - 39.5 Seconds) 28.1 Laboratory Tests 10/04 0427 Hematology WBC (4.5 - 11.0 x10 3/uL) 6.9 RBC (4.00 - 5.60 x10 6/uL) 3.84 L Hgb (12.5 - 16.9 g/dL) 11.2 L Hct (37.5 - 50.7 %) 35.3 L MCV (81.0 - 99.0 fL) 91.9 MCH (27.0 - 33.0 pg) 29.2 MCHC (33.0 - 37.0 g/dL) 31.7 L RDW (11.5 - 14.5 %) 15.6 H Plt Count (150 - 400 x10 3/uL) 147 L MPV (7.0 - 9.0 fL) 10.8 H Neut % (Auto) (56.0 - 77.0 %) 52.6 L Lymph % (Auto) (14.0 - 32.0 %) 27.6 Fisher % (Auto) (4.8 - 9.0 %) 11.5 H Eos % (Auto) (0.3 - 3.7 %) 6.7 H Baso % (Auto) (0.0 - 2.0 %) 0.9 Neut # (Auto) (2.0 - 7.6 x10 3/uL) 3.62 Lymph # (Auto) (1.0 - 3.8 x10 3/uL) 1.90 Fisher # (Auto) (0.1 - 0.8 x10 3/uL) 0.79 Eos # (Auto) (0.0 - 0.2 x10 3/uL) 0.46 H Baso # (Auto) (0.0 - 0.2 x10 3/uL) 0.06 Abs Immat Gran (auto) (0.00 - 0.03 x10 3/uL) 0. 05 H Add Manual Diff NO Immature Gran % (0.0 - 2.0 %) 0.7 Nucleated RBC % (0 - 0 %) 0.0 Nucleated RBCs # (Man) (0.0 - 0.1 x10 3/uL) 0.0 0 Diagnosis, Assessment Plan Free Text A P: Assessment/plan: 1. Acute renal failure: Most likely secondary to contrast versus polyuric phase after placement of Atwood's, off lisinopril, off Lasix, on ivf, renal sono right kidney ok, absent left kidney, avoid nep hrotoxic medications/contrast for now, Cr 2.5-2.8-2.9-2.5 today 2. CKD 4: Baseline creatinine not known, back in 2011 it was 2.6 3. Coronary artery disease: S/p cath, PCI in chuy n, will need PAVITHRA prophylaxis 4. CHF: Negative balance, holding diuretics for worsening kidney function, monitor closely for any volume overload, preserv ed ejection fraction 5. BPH: Continue Flomax, will check PSA levels, needs urology for obstructive uropathy 6. Urinary retention/obstructive uropathy 7. Diabetes mellitus: Treatment as per melisa lozada diffusion she is has been m Electronically Signed by Jaz Gan MD on 10/04 at 1445 RPT #:[id number] END OF REPORT 2022-10-04 [facility] 08:09:00-00:00 [facility] Hospitalist Progress Note REPORT#:[id number] REPORT STATUS: Signed DATE:10/04/22 TIME: 808 PATIENT: ERIKA BROWN UNIT #: [id number] ROOM/BED: [place] [address] : 41 AGE: 82 SEX: M ATTEND: Zan Prieto DO ADM AUTHOR: Heena Ramirez DO * ALL edits or amendments must be made on the [employer]/computer document * Subjective Chief complaint: Patient denies chest pain or shortness of breath HPI: 82 y/o man with PMHx of CAD with multiple PCI/Stents/[place], Chronic diastolic CHF, HTN, DM, BPH, CKD 4, gout dyslipidemia and GERD that was admitted to [facility] with chest pain. recent admiss ion and discharge from same hospital and been at home si nce 09/26/22. continue to have chest pain. Patient had elevated troponin but no ST levation on EKG. Und erwent cardiac cath today and foun ou to have distal left main diseas of 90%, ostial LAD 90% with other lession with 60% and 80% osman nosis, Circ with ostial 90% and then patent stent ( Non dominant), RCA (large dominant) sten t with 50% ISR, Mid with 80% stenosis, PDA with with 80% stenosis. Free Text Subj Notes Free Text Subj Notes: Patient examined at the bedside and appears well . Sugars remain difficult to control however patient is o n room air and denies shortness of breath and chest pain. PCI scheduled for Thursday. Review of Systems Constitutional: Denies: chills, fever. Respiratory: Denies: MCCAULEY (dyspnea on exertion), SOB. Cardiovascular: Reports: edema. Denies: chest pain. Neuro: Denies: confusion, dizziness. All systems rev neg: except as noted Objective General VS/I O: Vital Signs: Date Time Temp Pulse Resp B/P B/P Pulse O2 O2 Flow FiO2 Mean Ox Delivery Rate 10/04 1111 97.5 62 18 124/71 88.9 97 Room air 10/04 0733 97.5 63 18 144/81 102.1 92 Nasal 3 cannula 10/04 0440 97.3 67 18 134/84 101.0 96 Room air 10/03 2343 97.9 72 16 128/73 91 94 Nasal cannula 10/03 1926 97.7 73 18 143/76 98.4 97 Room air 24 hour I O ending at 0700: 10/04 0700 10/03 1900 Intake Total 90.30 Output Total 1999 1200 Balance -2000 -1109.70 Intake, IV 90.30 Number 1 Bowel Movements Output, Urine 1999 1200 PATIENT WEIGHT: Weight (lb): 337 Weight (oz): 4.92 Weight (kg): 152.861 Physical Exam General appearance: alert, awake, oriented, no a cute distress, no respiratory distress Head/Eyes: atraumatic, EOMI, normal conjunctiva/ sclera, normocephalic ENT: moist mucosal membranes Neck: full range of motion, no bruit/NL carotids , no JVD Cardiovascular: normal heart sounds, regular rat e rhythm Respiratory: aerating well, clear to auscultatio n, symmetric expansion, no distress Abdomen: non-tender Extremities: moves all, no cyanosis, no edema Neuro/CONTINUOUS MINER: alert, oriented X 3, normal speech, n o motor deficits, no sensory deficits Skin: intact, normal color, no rash Results Findings/Data: Laboratory Tests 10/04 10/04 10/04 10/03 1105 0729 0427 1925 Chemistry Sodium (134 - 147 mEq/L) 137 Potassium (3.4 - 5.0 mEq/L) 4.9 Chloride (100 - 108 mEq/L) 104 Carbon Dioxide (21 - 33 mEq/l) 26 Anion Gap (0 - 20) 11 BUN (7 - 18 mg/dL) 33 H Creatinine (0.6 - 1.3 mg/dL) 2.5 H Glomerular Filtr Rate (70 - 80) 25.2 L Glucose (70 - 110 mg/dL) 264 H POC Glucose (70 - 110 MG/DL) 297 H 229 H 184 H Calcium (8.0 - 10.5 mg/dL) 8.3 Laboratory Tests 10/03 2334 Coagulation PTT ([place]) (25.0 - 39.5 Seconds) 28.1 Laboratory Tests 10/04 0427 Hematology WBC (4.5 - 11.0 x10 3/uL) 6.9 RBC (4.00 - 5.60 x10 6/uL) 3.84 L Hgb (12.5 - 16.9 g/dL) 11.2 L Hct (37.5 - 50.7 %) 35.3 L MCV (81.0 - 99.0 fL) 91.9 MCH (27.0 - 33.0 pg) 29.2 MCHC (33.0 - 37.0 g/dL) 31.7 L RDW (11.5 - 14.5 %) 15.6 H Plt Count (150 - 400 x10 3/uL) 147 L MPV (7.0 - 9.0 fL) 10.8 H Neut % (Auto) (56.0 - 77.0 %) 52.6 L Lymph % (Auto) (14.0 - 32.0 %) 27.6 Fisher % (Auto) (4.8 - 9.0 %) 11.5 H Eos % (Auto) (0.3 - 3.7 %) 6.7 H Baso % (Auto) (0.0 - 2.0 %) 0.9 Neut # (Auto) (2.0 - 7.6 x10 3/uL) 3.62 Lymph # (Auto) (1.0 - 3.8 x10 3/uL) 1.90 Fisher # (Auto) (0.1 - 0.8 x10 3/uL) 0.79 Eos # (Auto) (0.0 - 0.2 x10 3/uL) 0.46 H Baso # (Auto) (0.0 - 0.2 x10 3/uL) 0.06 Abs Immat Gran (auto) (0.00 - 0.03 x10 3/uL) 0. 05 H Add Manual Diff NO Immature Gran % (0.0 - 2.0 %) 0.7 Nucleated RBC % (0 - 0 %) 0.0 Nucleated RBCs # (Man) (0.0 - 0.1 x10 3/uL) 0.0 0 Results: labs reviewed Diagnosis, Assessment Plan Free Text DxA P Notes Free text DxA P notes: Assessment and Plan 1. CAD (coronary artery disease) -NSTEMI -Multi-vessel CAD with left main disease. -CVS consult -BB, ASA, Statin. -Heparin drip -Patient determined to be too high risk for CAB G Plan for PCI of LAD and RCA on Friday 10/06 2. HTN (hypertension) PRN labetalol continue with metoprolol Hold marlena due to ckd 3. DM type 2 (diabetes mellitus, type 2) with h yperglycemia Resume home Insulin. ISS. Adjsut home insulin a s needed. HGA1c 9.8 -NovoLog 40 units TID, Lantus 50 units at bedti me, Aggressive SS 4. CKD (chronic kidney disease) stage 4, GFR 15 -29 ml/min hold marlena. Monitor due to recent cath. 10/02 -creatinine increased to 2.8, monitor 10/03 nephrology consulted. Renal ultrasound wit h absent left kidney. 5. Chronic diastolic heart failure Chronic diastolic dysfuntion. LVEF 55-60% Currently compensated w/o acute exacerbation. CXR and [place] was normal per records. Furosemide 40 mg daily 6. BPH (benign prostatic hyperplasia) resume proscar and flomax 7. Asthma stable 8. Gout stable resume allopurinol 9. Dyslipidemia resume lipitor 10. Cellulitis Continue with Augmentin from previous hospital Morbid obesity BMI 49.8. Will need to fo llow-up outpatient with PCP for weight loss Resuscitation discussion: Discussed with: patient Code status: full code Disposition: Continue CABG workup Quality: Gen Med Crit Care VTE Prophylaxis VTE prophylaxis initiated: yes Current Medications Current medication review: I attest that the foregoing medication list in t he medical record is true, accurate, and complete to the best of my knowled ge. Advanced Care Plan 65 or Older Discussed with: patient Discussion included: living will (none), power of workers compensation defense attorney (none), code status ( full code) Electronically Signed by Heena Ramirez DO on 02/14 at 1533 RPT #:[id number] END OF REPORT 2022-10-03 [facility] 16:09:00-00:00 [facility] ([facility]) Hospitalist Progress Note REPORT#:[id number] REPORT STATUS: Signed DATE:10/03/22 TIME: 1609 PATIENT: ERIKA BROWN UNIT #: [id number] ROOM/BED: [place] [address] : 41 AGE: 82 SEX: M ATTEND: Zan Prieto DO ADM AUTHOR: Henrique Prieto DO * ALL edits or amendments must be made on the [employer]/computer document * Subjective Chief complaint: Patient denies chest pain or shortness of breath HPI: 82 y/o man with PMHx of CAD with multiple PCI/Stents/[place], Chronic diastolic CHF, HTN, DM, BPH, CKD 4, gout dyslipidemia and GERD that was admitted to [facility] with chest pain. recent admiss ion and discharge from same hospital and been at home si wye 09/26/22. continue to have chest pain. Patient had elevated troponin but no ST levation on EKG. Und erwent cardiac cath today and foun ou to have distal left main diseas of 90%, ostial LAD 90% with other lession with 60% and 80% osman nosis, Circ with ostial 90% and then patent stent ( Non dominant), RCA (large dominant) sten t with 50% ISR, Mid with 80% stenosis, PDA with with 80% stenosis. Objective Physical Exam General appearance: alert, awake, oriented Head/Eyes: atraumatic, EOMI, normal conjunctiva/ sclera, normocephalic ENT: moist mucosal membranes Neck: full range of motion, no bruit/NL carotids , no JVD Cardiovascular: normal heart sounds, regular rat e rhythm Respiratory: aerating well, clear to auscultatio n, symmetric expansion, no distress Abdomen: non-tender Extremities: moves all, no cyanosis, no edema Neuro/CONTINUOUS MINER: alert, oriented X 3, normal speech, n o motor deficits, no sensory deficits Skin: intact, normal color, no rash Diagnosis, Assessment Plan Free Text DxA P Notes Free text DxA P notes: 1. CAD (coronary artery disease) -NSTEMI -Multi-vessel CAD with left main disease. -CVS consult -BB, ASA, Statin. -Heparin drip -Patient determined to be too high risk for CAB G Plan for PCI of LAD and RCA on Friday 10/06 2. HTN (hypertension) PRN labetalol continue with metoprolol Hold marlena due to ckd 3. DM type 2 (diabetes mellitus, type 2) with h yperglycemia Resume home Insulin. ISS. Adjsut home insulin a s needed. HGA1c 9.8 -NovoLog 40 units AC, Lantus 50 units at bedtim e 4. CKD (chronic kidney disease) stage 4, GFR 15 -29 ml/min hold marlena. Monitor due to recent cath. 10/02 -creatinine increased to 2.8, monitor 10/03 nephrology consulted. Renal ultrasound wit h absent left kidney. 5. Chronic diastolic heart failure Chronic diastolic dysfuntion. LVEF 55-60% Currently compensated w/o acute exacerbation. CXR and [place] was normal per records. Furosemide 40 mg daily 6. BPH (benign prostatic hyperplasia) resume proscar and flomax 7. Asthma stable 8. Gout stable resume allopurinol 9. Dyslipidemia resume lipitor 10. Cellulitis Continue with Augmentin from previous hospital Morbid obesity BMI 49.8. Will need to fo llow-up outpatient with PCP for weight loss Resuscitation discussion: Discussed with: patient Code status: full code Disposition: Continue CABG workup Quality: Gen Med Crit Care VTE Prophylaxis VTE prophylaxis initiated: yes Current Medications Current medication review: I attest that the foregoing medication list in t he medical record is true, accurate, and complete to the best of my knowled ge. Advanced Care Plan 65 or Older Discussed with: patient Discussion included: living will (none), power of workers compensation defense attorney (none), code status ( full code) at 1611 RPT #:[id number] END OF REPORT 2022-10-03 [facility] 10:01:00-00:00 [facility] ([facility]) Nephrology Consultation Note REPORT#:[id number] REPORT STATUS: Signed DATE:10/03/22 TIME: 1001 PATIENT: ERIKA BROWN UNIT #: [id number] ROOM/BED: [place] [address] : 41 AGE: 82 SEX: M ATTEND: Zan Prieto DO ADM AUTHOR: Jaz Gan MD * ALL edits or amendments must be made on the [employer]/computer document * History of Present Illness Requesting clinician: Dr Ricci Reason for consult: ARF Chief complaint: Chest pain PCP: PCP: Floyd Mccarthy MD HPI: Patient is 82 years old man with past medical history of coronary artery disease , status post multiple PCI's in the past, CHF, h ypertension, BPH, diabetes mellitus and CKD 4 who was transferred from [facility] with chest pain. Patient had cardiac cath on 09/30/2022 and w as found to have multivessel diseas and was admitted for further management. Patient is currently on heparin drip. He denies any acute issues at this time. Nephrology was consulted for acute renal failure on CKD. Patient's baseline creatinine not available but back in 2011 creati nine was 2.6. On admission creatinine was 2.0, he follows with his nephrolo gist in [place], he does not remember his last creatinine level. Patient states he has problems urinating and takes medicine for that but has ne brendan had a good stream. On admission to emergency department he could not u rinate so Atwood catheter was placed and he had 1200 mL urine out. Creatinine was worse yesterday 2.8 and then 2.9 today. Patient is also on Lasix and lis inopril. Patient reports having 1 kidney, at some ult rasound he was told he does not have 1, no surgeries done on kidney Hx Obtained From Patient History - Adult longitudinal Past medical history: Reports: Asthma, Congestive heart failure, Coron pauline artery disease, Diabetes mellitus, GERD/gastritis, Hy pertension, Kidney disease/stones, BPH, Chronic pain , Dyslipidemia, Prior [place]. Denies: Atrial fibrill ation. Past surgical history: Reports: Cholecystectomy, He rnia repair, Spine surgery, = (back surgery). Family history: Reports: Heart disease, Hypertension. Additional family history: Father at age 50 of heart attack Mother had quadruple bypass Brother had quadruple bypass Sister had PCI Alcohol use: Denies EtOH use Drug use: Denies recreational drugs Smoking status for patients 13 years old or older: Former Smoker (quit 60 years ago) Medications: Home Medications: Medication Dose/Rte/Freq Days Qty Entered Last Max Daily Dose Reviewed ASPIRIN 81 MG PO DAILY 09/30/22 09/30/22 Strength: 81 MG TAB.CHEW 2309 2321 AMOXICILLIN/CLAV K 875 MG PO BID 09/30/2209/30 (AUGMENTIN 875/125 MG) 2309 2321 Strength: 875 MG-125 MG TAB METOPROLOL TARTRATE 50 MG PO BID 09/30/2209/30 (LOPRESSOR) 2310 2321 Strength: 50 MG TAB ALLOPURINOL (ZYLOPRIM) 100 MG PO DAILY 09/30/22 09/30/22 Strength: 100 MG TAB 2310 2322 MORPHINE SULFATE 2 MG IM 09/30/22 09/30/22 (MORPHINE SULFATE INJ) Q6H PRN PRN PAIN 2 23 21 Strength: 2 MG/ML SCALE 7-10 DISP.SYRIN ONDANSETRON 4 MG IV 09/30/22 09/30/22 Strength: 4 MG/2 ML VIAL Q6H PRN PRN NAUSEA 3 2322 AND VOMITING MONTELUKAST (SINGULAIR) 10 MG PO DAILY 09/30/22 09/30/22 Strength: 10 MG TAB 2314 2322 TAMSULOSIN ER (FLOMAX) 0.4 MG PO DAILY 09/30/22 09/30/22 Strength: 0.4 MG 2314 2321 CAP.SR.24H FINASTERIDE (PROSCAR) 5 MG PO DAILY 09/30/22 Strength: 5 MG TAB 2315 2322 PREGABALIN (LYRICA) 75 MG PO TID 09/30/2209/30 Strength: 75 MG CAP 2315 2321 ENALAPRIL (VASOTEC) 20 MG PO DAILY 09/30/2210/15 Strength: 20 MG TAB 2316 2322 INSULIN ASPART 40 UNITS SUBQ 09/30/22 09/30/22 (NovoLOG FLEXPEN (15mL)) TID MEALS 6 2322 Strength: 100 UNIT/ML (3 ML) PEN.INJCTR ESOMEPRAZOLE MAG YIN 20 MG PO DAILY 09/30/2210/15 (NexIUM) 2317 2321 Strength: 20 MG CAP. ESCITALOPRAM (LEXAPRO) 10 MG PO DAILY 09/30/22 09/30/22 Strength: 10 MG TAB 7 2321 NYSTATIN 1 APPLIC TOPICAL BID 09/30/22 3 (MYCOSTATIN 100,000 2318 2321 UNITS/GM) Strength: 100,000 UNIT/GRAM POWDER FUROSEMIDE (LASIX) 40 MG PO DAILY 09/30/2210/15 Strength: 40 MG TAB 2318 2321 ALBUTEROL 1.25 MG NEB 09/30/22 09/30/22 (ALBUTEROL 2.5 MG/3 ML RTQ6H PRN 2319 2321 (75mL)) SHORTNESS OF Strength: 2.5 MG/3 ML BREATH (0.083 %) NEB NITROGLYCERIN 0.4 MG SL 09/30/22 09/30/22 (NITROSTAT) Q5M PRN PRN CHEST 2320 2322 Strength: 0.4 MG TAB.SL PAIN COLCHICINE (COLCRYS) 0.6 MG PO 09/30/22 3 Strength: 0.6 MG TAB DAILY PRN PRN GOUT 2321 232 1 PAIN Current Hospital Medications: Anti-Infective Agents Sig/Juliann Start time Last Medication Dose Route Stop Time Status Admin Amoxicillin/ 500 MG Q12H 10/03 899 CKD 10/03 Clavulanate Potassium PO 10/05 (AUGMENTIN 500) Amoxicillin/ 875 MG BID 10/01 899 DC 10/02 Clavulanate Potassium PO 10/06 (AUGMENTIN 875) Nystatin 1 APPLIC BID 10/01 899 AC (MYCOSTATIN 15 GM TOPICAL 09/08 0859 CREAM) Autonomic Drugs Sig/Juliann Start time Last Medication Dose Route Stop Time Status Admin Tamsulosin HCl 0.4 MG DAILY 10/01 899 AC 10/03 (Flomax 0.4 mg) PO 10/31 0859 0854 Albuterol Sulfate 1.25 MG RTQ6H PRN 10/01 0030 AC (ALBUTEROL SULFATE) NEB 10/31 0029 Blood Formation,Coagulation Sig/Juliann Start time Last Medication Dose Route Stop Time Status Admin Clopidogrel Bisulfate 75 MG DAILY 10/04 899 UN V (Plavix) PO 11/04 0759 Clopidogrel Bisulfate 300 MG ONCE ONE 10/03 094 5 UNV (CLOPIDOGREL PO 10/03 0946 BISULFATE) Heparin Sodium 0 ASDIR PRN 10/01 0045 DC 10/02 (HEPARIN 5000 UNITS/ IV 10/31 0044 2344 ML) Heparin Sodium 500 ML ASDIR 10/01 0045 DC 10/03 (Porcine) IV 10/31 0044 0857 (HEPARIN 25,000 UNITS/ 1/2NS 500ML) Cardiovascular Drugs Sig/Juliann Start time Last Medication Dose Route Stop Time Status Admin Metoprolol Tartrate 25 MG BID 10/03 2100 AC (LOPRESSOR) PO 10/31 0859 Atorvastatin Calcium 40 MG 2100 10/01 2100 AC 0 10/02 (LIPITOR) PO 10/31 Enalapril Maleate 20 MG DAILY 10/01 899 DC (VASOTEC) PO 10/31 0859 0837 Metoprolol Tartrate 50 MG BID 10/01 899 DC (LOPRESSOR) PO 10/31 0859 0856 Labetalol HCl 10 MG Q4H PRN PRN 10/01 0045 AC (LABETALOL HCL) IV 10/31 0044 Nitroglycerin 0.4 MG Q5M PRN PRN 10/01 0030 AC (NITROSTAT) SL 10/31 0029 Central Nervous System Agents Sig/Juliann Start time Last Medication Dose Route Stop Time Status Admin Aspirin 81 MG DAILY 10/01 899 AC 10/03 (ASPIRIN) PO 10/31 0859 0855 Escitalopram Oxalate 10 MG DAILY 10/01 899 AC 10/03 (LEXAPRO) PO 10/31 0859 0855 Pregabalin 75 MG TID 10/01 899 AC 10/03 (LYRICA) PO 10/31 0859 0853 Acetaminophen 650 MG Q4H PRN PRN 10/01 0045 AC 10/02 (TYLENOL) PO 10/31 0044 0140 Morphine Sulfate 2 MG Q6H PRN PRN 10/01 0030 AC (morphine SULFATE) IV 10/06 0029 Diagnostic Agents Sig/Juliann Start time Last Medication Dose Route Stop Time Status Admin Perflutren Lipid 0 .STK-MED ONE 10/02 1134 DC 0 10/02 Microsphere IV 1249 (Definity) Electrolytic, Caloric, And Anton[place] Sig/Juliann Start time Last Medication Dose Route Stop Time Status Admin Furosemide 40 MG DAILY 10/01 899 AC 10/03 (LASIX) PO 10/31 0859 0855 Dextrose/Water 125 ML ASDIR PRN 10/01 004 CKD (DEXTROSE 10% IN IV 10/31 004 WATER) Dextrose/Water 250 ML ASDIR PRN 10/01 0045 CKD (DEXTROSE 10% IN IV 10/31 004 WATER) Gastrointestinal Drugs Sig/Juliann Start time Last Medication Dose Route Stop Time Status Admin Pantoprazole 40 MG AC BK 10/01 07 AC 10/03 (PROTONIX) PO 10/31 0729 0854 Ondansetron HCl 4 MG Q4H PRN PRN 10/01 0045 AC 10/01 (ZOFRAN) IV 10/31 0044 1534 Hormones And Synthetic Substit Sig/Juliann Start time Last Medication Dose Route Stop Time Status Admin Insulin Glargine 50 UNIT BEDTIME 10/01 2100 AC 10/01 (Semglee) SUBQ 10/31 Insulin Human Lispro 40 UNIT TID MEALS 10/01 08 00 AC 10/03 (HUMALOG) SUBQ 10/31 0759 0853 Insulin Human Lispro 0 AC HS 10/01 0730 AC 09/23 1 (HUMALOG) SUBQ 10/31 0729 0852 Glucagon 1 MG ASDIR PRN 10/01 0045 AC (GLUCAGON) IM 10/31 0044 Miscellaneous Therapeutic Agen Sig/Juliann Start time Last Medication Dose Route Stop Time Status Admin Allopurinol 100 MG DAILY 10/01 899 AC 10/03 (ZYLOPRIM) PO 10/31 0859 0856 Finasteride 5 MG DAILY 10/01 899 AC 10/03 (PROSCAR) PO 10/31 0859 0857 Colchicine 0.6 MG DAILY PRN PRN 10/01 0030 AC (COLCRYS) PO 10/31 0029 Respiratory Tract Agents Sig/Julainn Start time Last Medication Dose Route Stop Time Status Admin Montelukast Sodium 10 MG DAILY 10/01 899 AC (SINGULAIR) PO 10/31 0859 0853 Allergies: Coded Allergies: melatonin (Mild, RASH-UNKNOWN 10/01/22) zolpidem (From AMBIEN) (Intermediate, KEEPS HIM AWAKE 09/30/22) Ambulatory status: Independent Review of Systems Constitutional: Reports: generalized weakness. All systems rev neg: except as marked Objective General VS/I O: Vital Signs: Date Time Temp Pulse Resp B/P B/P Pulse O2 O2 F low FiO2 Mean Ox Delivery Rate 10/03 0420 97.7 66 17 102/49 67.0 94 Room air 10/02 2347 97.7 61 16 102/60 74.1 93 Room air 10/02 1942 98.1 69 17 134/66 88.5 95 Room air 10/02 1627 97.7 60 15 101/59 73 93 Room air 10/02 1335 98.6 63 16 104/62 76 94 Room air 24 hour I O ending at 0700: 10/03 0700 10/02 1900 Intake Total Output Total 2825 Balance -2825 Output, Urine 2825 Patient 152.861 kg Weight PATIENT WEIGHT: Weight (lb): 337 Weight (oz): 4.92 Weight (kg): 152.861 Medications: Active Meds + DC'd Last 24 Hrs Clopidogrel Bisulfate (Plavix) 75 MG DAILY PO (U NV) Metoprolol Tartrate (LOPRESSOR) 25 MG BID PO Clopidogrel Bisulfate (CLOPIDOGREL BISULFATE) 30 0 MG ONCE ONE PO (UNV) Amoxicillin/Clavulanate Potassium (AUGMENTIN 500 ) 500 MG Q12H PO (CKD) Perflutren Lipid Microsphere (Definity) 0 .STK-M ED ONE IV (DC) Atorvastatin Calcium (LIPITOR) 40 MG 2100 PO Insulin Glargine (Semglee) 50 UNIT BEDTIME SUBQ Allopurinol (ZYLOPRIM) 100 MG DAILY PO Amoxicillin/Clavulanate Potassium (AUGMENTIN 875 ) 875 MG BID PO (DC) Aspirin (ASPIRIN) 81 MG DAILY PO Enalapril Maleate (VASOTEC) 20 MG DAILY PO (DC) Escitalopram Oxalate (LEXAPRO) 10 MG DAILY PO Finasteride (PROSCAR) 5 MG DAILY PO Furosemide (LASIX) 40 MG DAILY PO Metoprolol Tartrate (LOPRESSOR) 50 MG BID PO (DC ) Montelukast Sodium (SINGULAIR) 10 MG DAILY PO Nystatin (MYCOSTATIN 15 GM CREAM) 1 APPLIC BID T OPICAL Pregabalin (LYRICA) 75 MG TID PO Tamsulosin HCl (Flomax 0.4 mg) 0.4 MG DAILY PO Insulin Human Lispro (HUMALOG) 40 UNIT TID MEALS SUBQ Insulin Human Lispro (HUMALOG) 0 AC HS SUBQ Pantoprazole (PROTONIX) 40 MG AC BK PO Acetaminophen (TYLENOL) 650 MG Q4H PRN PRN PO Dextrose/Water (DEXTROSE 10% IN WATER) 125 ML DIR PRN IV (CKD) Dextrose/Water (DEXTROSE 10% IN WATER) 250 ML DIR PRN IV (CKD) Glucagon (GLUCAGON) 1 MG ASDIR PRN IM Heparin Sodium (HEPARIN 5000 UNITS/ML) 0 ASDIR P RN IV (DC) Heparin Sodium (Porcine) (HEPARIN 25,000 UNITS/ 1/2NS 500ML) 500 ML ASDIR IV (DC) Labetalol HCl (LABETALOL HCL) 10 MG Q4H PRN PRN IV Ondansetron HCl (ZOFRAN) 4 MG Q4H PRN PRN IV Albuterol Sulfate (ALBUTEROL SULFATE) 1.25 MG RT Q6H PRN NEB Colchicine (COLCRYS) 0.6 MG DAILY PRN PRN PO Morphine Sulfate (morphine SULFATE) 2 MG Q6H PRN PRN IV Nitroglycerin (NITROSTAT) 0.4 MG Q5M PRN PRN SL Physical Exam General appearance: alert, awake, oriented Head/eyes: atraumatic, normocephalic ENT: moist mucous membranes Neck: supple/no meningismus, no JVD Cardiovascular: no murmur, no rub Respiratory: aerating well, clear to auscultatio n Abdomen: non-tender, soft Genitourinary: no bladder distention Extremities: swelling Neuro/CONTINUOUS MINER: alert, oriented X 3 Results Findings/Data: Laboratory Tests 10/03 10/02 10/02 0431 1940 1219 Chemistry Sodium (134 - 147 mEq/L) 134 Potassium (3.4 - 5.0 mEq/L) 4.5 Chloride (100 - 108 mEq/L) 100 Carbon Dioxide (21 - 33 mEq/l) 25 Anion Gap (0 - 20) 14 BUN (7 - 18 mg/dL) 30 H Creatinine (0.6 - 1.3 mg/dL) 2.9 H Glomerular Filtr Rate (70 - 80) 21.1 L Glucose (70 - 110 mg/dL) 203 H POC Glucose (70 - 110 MG/DL) 240 H 179 H Calcium (8.0 - 10.5 mg/dL) 9.3 Laboratory Tests 10/03 10/02 10/02 0431 2218 1638 Coagulation PTT (Anthony) (25.0 - 39.5 Seconds) 134.3 H 42.2 H 69.7 H Laboratory Tests 10/03 0432 Hematology WBC (4.5 - 11.0 x10 3/uL) 9.0 RBC (4.00 - 5.60 x10 6/uL) 4.04 Hgb (12.5 - 16.9 g/dL) 11.9 L Hct (37.5 - 50.7 %) 37.4 L MCV (81.0 - 99.0 fL) 92.6 MCH (27.0 - 33.0 pg) 29.5 MCHC (33.0 - 37.0 g/dL) 31.8 L RDW (11.5 - 14.5 %) 15.1 H Plt Count (150 - 400 x10 3/uL) 145 L MPV (7.0 - 9.0 fL) 10.7 H Neut % (Auto) (56.0 - 77.0 %) 56.7 Lymph % (Auto) (14.0 - 32.0 %) 27.9 Fisher % (Auto) (4.8 - 9.0 %) 7.7 Eos % (Auto) (0.3 - 3.7 %) 6.3 H Baso % (Auto) (0.0 - 2.0 %) 0.6 Neut # (Auto) (2.0 - 7.6 x10 3/uL) 5.11 Lymph # (Auto) (1.0 - 3.8 x10 3/uL) 2.51 Fisher # (Auto) (0.1 - 0.8 x10 3/uL) 0.69 Eos # (Auto) (0.0 - 0.2 x10 3/uL) 0.57 H Baso # (Auto) (0.0 - 0.2 x10 3/uL) 0.05 Abs Immat Gran (auto) (0.00 - 0.03 x10 3/uL) 0. 07 H Add Manual Diff NO Immature Gran % (0.0 - 2.0 %) 0.8 Nucleated RBC % (0 - 0 %) 0.0 Nucleated RBCs # (Man) (0.0 - 0.1 x10 3/uL) 0.0 0 Laboratory Tests 10/03 0432 Urines Urine Color (YEL/STRAW) YELLOW Urine Appearance (CLEAR) CLEAR Urine pH (5.0 - 7.0) 6.0 Ur Specific Rhododendron (1.005 - 1.030) 1.009 Urine Protein (NEGATIVE) NEGATIVE Urine Glucose (UA) (NEGATIVE) 1+ H Urine Ketones (NEGATIVE) NEGATIVE Urine Blood (NEGATIVE) 1+ H Urine Nitrite (NEGATIVE) NEGATIVE Urine Bilirubin (NEGATIVE) NEGATIVE Urine Urobilinogen (0.2 - 1.0 mg/dL) 0.2 Ur Leukocyte Esterase (NEGATIVE) 1+ H Urine RBC (0 - 3 RBC/HPF) 0-3 Urine WBC (0 - 3 WBC/HPF) 4-9 H Ur Squamous Epith Cells (NONE SEEN /HPF) NONE S EEN Urine Bacteria (NONE SEEN /HPF) TRACE Hyaline Casts (NONE SEEN /LPF) 0-2 Urine Mucus (NONE SEEN /LPF) TRACE Diagnosis, Assessment Plan Free Text DxA P Notes Free text DxA P notes: Assessment/plan: 1. Acute renal failure: Most likely secondary to contrast versus polyuric phase after placement of Atwood's, DC lisinopril, DC La six, start slow normal saline hydration, renal sono reques mendez, avoid nephrotoxic medications/contrast for now, repeat labs in a.m. 2. CKD 4: Baseline creatinine not known, back in 2011 it was 2.6 3. Coronary artery disease: S/p cath, PCI in chuy n, will need PAVITHRA prophylaxis 4. CHF: Negative balance, holding diuretics for worsening kidney function, monitor closely for any volume overload, preserv ed ejection fraction 5. BPH: Continue Flomax, will check PSA levels, needs urology for obstructive uropathy 6. Urinary retention/obstructive uropathy 7. Diabetes mellitus: Treatment as per p rimary tea diffusion she is has been m Thank you very much for invo lving me in taking care of this patient, will follow closely. Electronically Signed by Jaz Gan MD on 10/03 at 1021 RPT #:[id number] END OF REPORT 2022-10-03 [facility] 06:32:00-00:00 [facility] ([facility]) Cardiology Progress Note REPORT#:[id number] REPORT STATUS: Signed DATE:10/03/22 TIME: 06 PATIENT: ERIKA BROWN UNIT #: [id number] ROOM/BED: [place] [id number] : 41 AGE: 82 SEX: M ATTEND: Zan Prieto DO ADM AUTHOR: Kathya Sorensen AGA SENIOR TECHNICAL BUSINESS ANALYST * ALL edits or amendments must be made on the [employer]/computer document * Kathya Sorensen 10/03/22 0632: Subjective Patient reports: No: complaints. Review of Systems Respiratory: Denies: SOB. Cardiovascular: Denies: chest pain. Objective General VS/I O: 24 hour I O ending at 0700: 10/03 0700 10/02 1900 Intake Total Output Total 2825 Balance -2825 Output, Urine 2825 Patient 152.861 kg Weight Vital Signs: Date Time Temp Pulse Resp B/P B/P Pulse O2 O2 Flow FiO2 Mean Ox Delivery Rate 10/03 0420 36.5 66 17 102/49 67.0 94 Room air 10/02 2347 36.5 61 16 102/60 74.1 93 Room air 10/02 1942 36.7 69 17 134/66 88.5 95 Room air 10/02 1627 36.5 60 15 101/59 73 93 Room air 10/02 1335 37.0 63 16 104/62 76 94 Room air 10/02 0800 36.6 63 16 110/67 81 95 Room air PATIENT WEIGHT: Weight (lb): 337 Weight (oz): 4.92 Weight (kg): 152.861 Medications: Active Meds + DC'd Last 24 Hrs Perflutren Lipid Microsphere (Definity) 0 .STK-M ED ONE IV (DC) Perflutren Lipid Microsphere (Definity) 0 .STK-M ED ONE IV (DC) Atorvastatin Calcium (LIPITOR) 40 MG 2100 PO Insulin Glargine (Semglee) 50 UNIT BEDTIME SUBQ Allopurinol (ZYLOPRIM) 100 MG DAILY PO Amoxicillin/Clavulanate Potassium (AUGMENTIN 875 ) 875 MG BID PO (CKD) Aspirin (ASPIRIN) 81 MG DAILY PO Enalapril Maleate (VASOTEC) 20 MG DAILY PO (DC) Escitalopram Oxalate (LEXAPRO) 10 MG DAILY PO Finasteride (PROSCAR) 5 MG DAILY PO Furosemide (LASIX) 40 MG DAILY PO Metoprolol Tartrate (LOPRESSOR) 50 MG BID PO Montelukast Sodium (SINGULAIR) 10 MG DAILY PO Nystatin (MYCOSTATIN 15 GM CREAM) 1 APPLIC BID T OPICAL Pregabalin (LYRICA) 75 MG TID PO Tamsulosin HCl (Flomax 0.4 mg) 0.4 MG DAILY PO Insulin Human Lispro (HUMALOG) 40 UNIT TID MEALS SUBQ Insulin Human Lispro (HUMALOG) 0 AC HS SUBQ Pantoprazole (PROTONIX) 40 MG AC BK PO Acetaminophen (TYLENOL) 650 MG Q4H PRN PRN PO Dextrose/Water (DEXTROSE 10% IN WATER) 125 ML DIR PRN IV (CKD) Dextrose/Water (DEXTROSE 10% IN WATER) 250 ML DIR PRN IV (CKD) Glucagon (GLUCAGON) 1 MG ASDIR PRN IM Heparin Sodium (HEPARIN 5000 UNITS/ML) 0 ASDIR P RN IV Heparin Sodium (Porcine) (HEPARIN 25,000 UNITS/ 1/2NS 500ML) 500 ML ASDIR IV (CKD) Labetalol HCl (LABETALOL HCL) 10 MG Q4H PRN PRN IV Ondansetron HCl (ZOFRAN) 4 MG Q4H PRN PRN IV Albuterol Sulfate (ALBUTEROL SULFATE) 1.25 MG RT Q6H PRN NEB Colchicine (COLCRYS) 0.6 MG DAILY PRN PRN PO Morphine Sulfate (morphine SULFATE) 2 MG Q6H PRN PRN IV Nitroglycerin (NITROSTAT) 0.4 MG Q5M PRN PRN SL Physical Exam General appearance: obese, alert, awake, oriente d, pleasant Neck: no JVD Cardiovascular: CV assessment: regular rate and rhythm Respiratory: decreased breath sounds, on oxygen, no distress Abdomen: non-tender Genitourinary: urinary catheter, urine Lower extremity: LE assessment: edema Neuro/CONTINUOUS MINER: alert Skin: lesion (LE), rash Psychiatry: normal affect, normal mood Results Findings/Data: Laboratory Tests 10/03 1940 1219 0733 0706 Chemistry Sodium (134 - 147 mEq/L) 134 Potassium (3.4 - 5.0 mEq/L) 4.5 Chloride (100 - 108 mEq/L) 100 Carbon Dioxide (21 - 33 mEq/l) 25 Anion Gap (0 - 20) 14 BUN (7 - 18 mg/dL) 30 H Creatinine (0.6 - 1.3 mg/dL) 2.9 H Glomerular Filtr Rate (70 - 80) 21.1 L Glucose (70 - 110 mg/dL) 203 H POC Glucose (70 - 110 MG/DL) 240 H 179 H 143 H Calcium (8.0 - 10.5 mg/dL) 9.3 B-Natriuretic Peptide (0 - 100 PG/ML) 22.0 10/02 0706 Chemistry Sodium (134 - 147 mEq/L) 137 Potassium (3.4 - 5.0 mEq/L) 4.2 Chloride (100 - 108 mEq/L) 102 Carbon Dioxide (21 - 33 mEq/l) 28 Anion Gap (0 - 20) 12 BUN (7 - 18 mg/dL) 25 H Creatinine (0.6 - 1.3 mg/dL) 2.8 H Glomerular Filtr Rate (70 - 80) 22.0 L Glucose (70 - 110 mg/dL) 131 H Calcium (8.0 - 10.5 mg/dL) 9.8 Magnesium (1.80 - 2.40 mg/dL) 1.86 Laboratory Tests 10/03 2218 1638 0706 Coagulation PTT ([place]) (25.0 - 39.5 Seconds) 134.3 H 42.2 H 69.7 H 79.4 H Laboratory Tests 10/032 0706 Hematology WBC (4.5 - 11.0 x10 3/uL) 9.0 9.0 RBC (4.00 - 5.60 x10 6/uL) 4.04 3.99 L Hgb (12.5 - 16.9 g/dL) 11.9 L 11.7 L Hct (37.5 - 50.7 %) 37.4 L 35.8 L MCV (81.0 - 99.0 fL) 92.6 89.7 MCH (27.0 - 33.0 pg) 29.5 29.3 MCHC (33.0 - 37.0 g/dL) 31.8 L 32.7 L RDW (11.5 - 14.5 %) 15.1 H 15.1 H Plt Count (150 - 400 x10 3/uL) 145 L 138 L MPV (7.0 - 9.0 fL) 10.7 H 10.5 H Neut % (Auto) (56.0 - 77.0 %) 56.7 55.0 L Lymph % (Auto) (14.0 - 32.0 %) 27.9 29.7 Fisher % (Auto) (4.8 - 9.0 %) 7.7 8.6 Eos % (Auto) (0.3 - 3.7 %) 6.3 H 5.5 H Baso % (Auto) (0.0 - 2.0 %) 0.6 0.6 Neut # (Auto) (2.0 - 7.6 x10 3/uL) 5.11 4.93 Lymph # (Auto) (1.0 - 3.8 x10 3/uL) 2.51 2.66 Fisher # (Auto) (0.1 - 0.8 x10 3/uL) 0.69 0.77 Eos # (Auto) (0.0 - 0.2 x10 3/uL) 0.57 H 0.49 H Baso # (Auto) (0.0 - 0.2 x10 3/uL) 0.05 0.05 Abs Immat Gran (auto) (0.00 - 0.03 x10 3/uL) 0. 07 H 0.05 H Add Manual Diff NO NO Immature Gran % (0.0 - 2.0 %) 0.8 0.6 Nucleated RBC % (0 - 0 %) 0.0 0.0 Nucleated RBCs # (Man) (0.0 - 0.1 x10 3/uL) 0.0 0 0.00 Laboratory Tests 10/03 0432 Urines Urine Color (YEL/STRAW) YELLOW Urine Appearance (CLEAR) CLEAR Urine pH (5.0 - 7.0) 6.0 Ur Specific Rhododendron (1.005 - 1.030) 1.009 Urine Protein (NEGATIVE) NEGATIVE Urine Glucose (UA) (NEGATIVE) 1+ H Urine Ketones (NEGATIVE) NEGATIVE Urine Blood (NEGATIVE) 1+ H Urine Nitrite (NEGATIVE) NEGATIVE Urine Bilirubin (NEGATIVE) NEGATIVE Urine Urobilinogen (0.2 - 1.0 mg/dL) 0.2 Ur Leukocyte Esterase (NEGATIVE) 1+ H Urine RBC (0 - 3 RBC/HPF) 0-3 Urine WBC (0 - 3 WBC/HPF) 4-9 H Ur Squamous Epith Cells (NONE SEEN /HPF) NONE S EEN Urine Bacteria (NONE SEEN /HPF) TRACE Hyaline Casts (NONE SEEN /LPF) 0-2 Urine Mucus (NONE SEEN /LPF) TRACE Laboratory Tests 10/02 10/02 0706 0706 Chemistry Magnesium (1.80 - 2.40 mg/dL) 1.86 B-Natriuretic Peptide (0 - 100 PG/ML) 22.0 Results: labs reviewed, vital signs reviewed, [facility] personally rev'd Telemetry Interpretation: sinus rhythm Diagnosis, Assessment Plan Plan discussed with: patient , admitting physician, collaborating MD, consultants , nurse Free Text DxA P Notes Free Text DxA P Notes: 82 YO male with PMHx of CAD, [place] with prior PCI/D ES, HTN, DM, HLD, CHF, morbid obesity, CKD who was admitted at [facility] with chest pain ruled in for NSTEMI. LHC revealed multive ssel CAD including distal left main. The patient is transferred to this facility for CABG evaluation . Currently patient is chest pain free. 1. NSTEMI/Multivessel CAD including distal LM * too high risk for CABG, STS score for operativ e mortality for isolated CABG 12.2% * plan for Impella-assisted high risk PC I to the LAD and RCA on Thursday pending nephrology clearance * Stop heparin gtt, load Plavix 300 mg today the n 75 mg daily * ASA, Statin, BB 2. Chronic CHF * BNP normal * echo preserved LvEF 3. Hypertension * BP soft, and creat on upward trend * stop enalapril, decrease metoprolol to 25 mg B ID 4. Diabetes mellitus * manage per PCP 5. CKD * creat 2.8->2.9 * nephrology consultation 6. Asthma Plan discussed with patient, he consented to pro ceed with PCI tentatively for Thursday, answered all his questions. MDM by Dr. Ricci. Brooklyn Ricci 10/03/22 1319: Attestations Physician Attestation Agree w/findings plan: I have seen and examined the pt, I Agree with th e findings and plan as documented by Kathya Sorensen. Case discussed in the complex coronary c onference and not a good candidate for CABG. Plan for PCI after renal function improves . Creatinine today is 2.9, unknown baseline however in 2011 he had a creati nine of 2.6. DC heparin drip, aspirin, Plavix, statin. And plan for PCI tentat ively Thursday or Thursday at 1034 Electronically Signed by Brooklyn Ricci MD on at 1319 RPT #:[id number] END OF REPORT 2022-10-02 [id number] [facility] 16:54:00-00:[address] [place] [address] PATIENT NAME: ERIKA BROWN ADMIT DATE: 09/30/22 ACCOUNT NO: [id number] ROOM NO: [id number] AGE: 82 REPORT TYPE: eECHOCARDIOGRAM REPORT SEX: M ADMITTING PHYSICIAN:Floyd Mccarthy MD ATTENDING PHYSICIAN:Henrique Prieto DO *[facility]* [address] [place] [address] Transthoracic Echocardiogram Patient: Erika Brown Study Date: 10/02/2022 BP: 101 / 59 Location: [facility] URN: [id number] : 1940 Age: 82 Height: 69 in / 175.3 cm Gender: M Weight: 336 .3 lb / 152.9 kg BMI/BSA: 49.8 kg/m 2 / 2.81 m 2 *Ordering Physician: * Kathya Sorensne [facility] manpower development advisor *Interpreting Physician: * Brooklyn Ricci MD *Insurance Marketing Rep: * Clara Brannon Indications: CAD, CHF. Study data: Transthoracic echocardiogram. Proced ure: Transthoracic echocardiography was performed. Image quality wa s fair. The study was technically limited due to poor acoustic window availability, poor patient compliance, restricted patient mobility, and body habitus. Intravenous contrast (Definity) was administered . Complete 2D, complete spectral Doppler, and color Doppler. Location: [facility]. Patient status: Inpatient. Patient room number: 4408. St y status: Routine. Findings Left ventricle: The cavity size is normal. Wall thickness is increased. Systolic function is normal. The estimated eject ion fraction is 55-60%. Regional wall motion abnormalities cannot be exc luded. Doppler parameters are consistent with abnormal left arturo tricular relaxation PATIENT NAME: ERIKA BROWN 66 (grade 1 diastolic dysfunction). Right ventricle: The cavity size is normal. Syst olic function is normal. Left atrium: Poorly visualized. The atrium is no rmal in size. Right atrium: The atrium is mildly dilated. Aorta: Aortic root: The aortic root is normal in size. Aortic valve: Poorly visualized. The valve is st ructurally normal. The valve is trileaflet. There is no evidence of osman nosis. There is no regurgitation. Mitral valve: The valve is structurally normal. There is no evidence of stenosis. There is no regurgitation. Tricuspid valve: RVSP calculated 33.12 mmHg. The valve is structurally normal. There is mild regurgitation. Pulmonic valve: The valve is structurally normal . There is no regurgitation. Pericardium: A prominent pericardial fat pad is present. There is no pericardial effusion. Pulmonary arteries: The main pulmonary artery is normal-sized. Systemic veins: Inferior vena cava: Not well visualized. Measurements Left ventricle Value Ref ALEKSEY, LAX 5.0 cm 4.2 - 5.8 ESD, LAX 3.2 cm 2.5 - 4.0 ESD/bsa, LAX 1.1 cm/m 2 1.3 - 2.1 FS, LAX 36 % 25 - 43 ESD/bsa major 2.1 cm/m 2 --------- ax, A4C ALEKSEY/bsa minor 2.1 cm/m 2 --------- ax, A4C ALEKSEY major ax, 7.4 cm --------- A2C ALEKSEY/bsa major 2.6 cm/m 2 --------- ax, A2C PW, ED 1.4 cm 0.6 - 1.0 IVS/PW, ED 0.89 --------- EF 66 % 52 - 72 E', lat darwin, TDI 6.3 cm/sec >=10.0 E/e', lat darwin, 10 --------- TDI E', med darwin, TDI 4.6 cm/sec >=7.0 E/e', med darwin, 13 --------- TDI E', avg, TDI 5.4 cm/sec --------- E/e', avg, TDI 11 <=14 LVOT Value Ref Diam, S 2.02 cm --------- Area 3.2 cm 2 --------- Peak margaux, S 1.1 m/sec --------- PATIENT NAME: ERIKA BROWN 5 Mean margaux, S 0.75 m/sec --------- VTI, S 20.0 cm --------- Peak grad, S 5 mm Hg --------- Mean grad, S 3 mm Hg --------- SV 64 ml --------- Qs 3.55 L/min --------- Qs/bsa 1.3 L/(min-m 2) --------- SV/bsa 23 ml/m 2 --------- Ventricular septum Value Ref IVS, ED 1.3 cm 0.6 - 1.0 Right ventricle Value Ref Pressure, S 33 mm Hg --------- Left atrium Value Ref AP dim, ES 3.31 cm 3.00 - 4.00 Vol/bsa, ES, 1-p 9 ml/m 2 12 - 37 A4C Vol/bsa, ES, A/L 11 ml/m 2 16 - 34 Right atrium Value Ref Area, ES 18 cm 2 10 - 18 Aortic valve Value Ref Peak v, S 1.22 m/sec --------- Mean v, S 0.78 m/sec --------- VTI, S 24.2 cm --------- Mean grad, S 2.8 mm Hg --------- Peak grad, S 6.0 mm Hg --------- LVOT/AV, VTI 0.83 --------- ratio GIN, VTI 2.66 cm 2 --------- LVOT/AV, Vpeak 0.9 --------- ratio GIN, Vmax 2.90 cm 2 --------- Mitral valve Value Ref Peak E 0.61 m/sec --------- Peak A 0.71 m/sec --------- Mean v, D 0.49 m/sec --------- VTI leaflet 34.2 cm --------- coapt Decel time 404 ms --------- PHT 90 ms --------- Mean grad, D 1.2 mm Hg --------- Peak grad, D 3.0 mm Hg --------- Peak E/A ratio 0.86 --------- MVA, PHT 2.4 cm 2 --------- Pulmonic valve Value Ref IA v, ED 0.55 m/sec --------- PATIENT NAME: ERIKA BROWN 5 Tricuspid valve Value Ref TR peak v 2.4 m/sec <=2.8 Peak RV-RA grad, 23 mm Hg --------- S Aortic root Value Ref Root diam 2.7 cm <4.7 Ascending aorta Value Ref AAo AP diam, S 2.9 cm --------- AAo AP diam/bsa, 1.0 cm/m 2 --------- S Pulmonary artery Value Ref Pressure, S 28.9 mm Hg --------- Systemic veins Value Ref Estimated CVP 10 mm Hg --------- Conclusions Summary: 1. Left ventricle: The cavity size is normal. Wa ll thickness is increased. Systolic function is normal. The est imated ejection fraction is 55-60%. Regional wall motion abnorm alities cannot be excluded. Doppler parameters are consistent wit h abnormal left ventricular relaxation (grade 1 diastolic dysfu nction). 2. Right atrium: The atrium is mildly dilated. 3. Aortic valve: Poorly visualized. 4. Tricuspid valve: RVSP calculated 33.12 mmHg. There is mild regurgitation. 5. Pericardium, extracardiac: A prominent perica rdial fat pad is present. Prepared and electronically signed by Brooklyn Ricci MD 10/02/2022 16:54 Electronically Signed by Brooklyn Ricci MD on 0 10/02/22 at 1654 PATIENT NAME: ERIKA BROWN 5 2022-10-02 [facility] 12:31:00-00:00 [facility] ([facility] Hospitalist Progress Note REPORT#:[id number] REPORT STATUS: Signed DATE:10/02/22 TIME: 1231 PATIENT: ERIKA BROWN UNIT #: [id number] ROOM/BED: [place] [address] : 41 AGE: 82 SEX: M ATTEND: Zan Prieto DO ADM AUTHOR: Henrique Prieto DO * ALL edits or amendments must be made on the [employer]/computer document * Subjective Chief complaint: Patient denies chest pain or shortness of breath HPI: 82 y/o man with PMHx of CAD with multiple PCI/Stents/[place], Chronic diastolic CHF, HTN, DM, BPH, CKD 4, gout dyslipidemia and GERD that was admitted to [facility] with chest pain. recent admiss ion and discharge from same hospital and been at home si nce 09/26/22. continue to have chest pain. Patient had elevated troponin but no ST levation on EKG. Und erwent cardiac cath today and foun ou to have distal left main diseas of 90%, ostial LAD 90% with other lession with 60% and 80% osman nosis, Circ with ostial 90% and then patent stent ( Non dominant), RCA (large dominant) sten t with 50% ISR, Mid with 80% stenosis, PDA with with 80% stenosis. Objective General VS/I O: Vital Signs: Date Time Temp Pulse Resp B/P B/P Pulse O2 O2 F low FiO2 Mean Ox Delivery Rate 10/02 0426 97.7 60 16 101/59 72.7 93 Room air 10/02 0135 63 104/62 75.9 94 10/01 2314 98.2 69 16 95/59 70.7 95 Room air 10/01 1927 98.1 81 16 111/62 78.4 94 Room air 10/01 1652 98.1 70 18 144/76 99.0 95 Room air 24 hour I O ending at 0700: 10/02 0700 10/01 1900 Intake Total Output Total 550 Balance -550 Output, Urine 550 PATIENT WEIGHT: Weight (lb): 337 Weight (oz): 4.92 Weight (kg): 153.000 Physical Exam General appearance: alert, awake, oriented Head/Eyes: atraumatic, EOMI, normal conjunctiva/ sclera, normocephalic ENT: moist mucosal membranes Neck: full range of motion, no bruit/NL carotids , no JVD Cardiovascular: normal heart sounds, regular rat e rhythm Respiratory: aerating well, clear to auscultatio n, symmetric expansion, no distress Abdomen: non-tender Extremities: moves all, no cyanosis, no edema Neuro/CONTINUOUS MINER: alert, oriented X 3, normal speech, n o motor deficits, no sensory deficits Skin: intact, normal color, no rash Diagnosis, Assessment Plan Free Text DxA P Notes Free text DxA P notes: 1. CAD (coronary artery disease) -NSTEMI -Multi-vessel CAD with left main disease. -CVS consult -If turn down for CABG with need complex high r isk PCI of the left main, LAD and RCA. -BB, ASA, Statin. -Heparin drip 2. HTN (hypertension) PRN labetalol continue with metoprolol Hold marlena due to ckd 3. DM type 2 (diabetes mellitus, type 2) with h yperglycemia Resume home Insulin. ISS. Adjsut home insulin a s needed. HGA1c 9.8 -NovoLog 40 units AC, Lantus 50 units at bedtim e 4. CKD (chronic kidney disease) stage 4, GFR 15 -29 ml/min hold marlena. Monitor due to recent cath. 10/02 -creatinine increased to 2.8, monitor 5. Chronic diastolic heart failure Chronic diastolic dysfuntion. LVEF 55-60% Currently compensated w/o acute exacerbation. CXR and [place] was normal per records. Furosemide 40 mg daily 6. BPH (benign prostatic hyperplasia) resume proscar and flomax 7. Asthma stable 8. Gout stable resume allopurinol 9. Dyslipidemia resume lipitor 10. Cellulitis Continue with Augmentin from previous hospital Morbid obesity BMI 49.8. Will need to fo llow-up outpatient with PCP for weight loss Resuscitation discussion: Discussed with: patient Code status: full code Disposition: Continue CABG workup Quality: Gen Med Crit Care VTE Prophylaxis VTE prophylaxis initiated: yes Current Medications Current medication review: I attest that the foregoing medication list in t he medical record is true, accurate, and complete to the best of my knowled ge. Advanced Care Plan 65 or Older Discussed with: patient Discussion included: living will (none), power of workers compensation defense attorney (none), code status ( full code) at 1233 RPT #:[id number] END OF REPORT 2022-10-02 [facility] 07:03:00-00:00 [facility] ([facility]) Cardiology Progress Note REPORT#:[id number] REPORT STATUS: Signed DATE:10/02/22 TIME: 702 PATIENT: ERIKA BROWN UNIT #: [id number] ROOM/BED: [place] [address] : 41 AGE: 82 SEX: M ATTEND: Zan Prieto DO ADM AUTHOR: Kathya Sorensen SENIOR TECHNICAL BUSINESS ANALYST * ALL edits or amendments must be made on the [employer]/computer document * Kathya Sorensen 10/02/22 0703: Subjective Patient reports: No: chest pain, palpitations, shortness of breat h. Review of Systems Respiratory: Denies: SOB. Cardiovascular: Denies: chest pain. Objective General VS/I O: 24 hour I O ending at 0700: 10/02 0700 10/01 1900 Intake Total Output Total 550 Balance -550 Output, Urine 550 Vital Signs: Date Time Temp Pulse Resp B/P B/P Pulse O2 O2 F low FiO2 Mean Ox Delivery Rate 10/02 0426 36.5 60 16 101/59 72.7 93 Room air 10/02 0135 63 104/62 75.9 94 10/01 2314 36.8 69 16 95/59 70.7 95 Room air 10/01 1927 36.7 81 16 111/62 78.4 94 Room air 10/01 1652 36.7 70 18 144/76 99.0 95 Room air 10/01 0925 37.3 80 18 152/80 103.9 91 Room air PATIENT WEIGHT: Weight (lb): 337 Weight (oz): 4.92 Weight (kg): 153.000 Medications: Active Meds + DC'd Last 24 Hrs Atorvastatin Calcium (LIPITOR) 40 MG 2100 PO Insulin Glargine (Semglee) 50 UNIT BEDTIME SUBQ Allopurinol (ZYLOPRIM) 100 MG DAILY PO Amoxicillin/Clavulanate Potassium (AUGMENTIN 875 ) 875 MG BID PO (CKD) Aspirin (ASPIRIN) 81 MG DAILY PO Enalapril Maleate (VASOTEC) 20 MG DAILY PO Escitalopram Oxalate (LEXAPRO) 10 MG DAILY PO Finasteride (PROSCAR) 5 MG DAILY PO Furosemide (LASIX) 40 MG DAILY PO Metoprolol Tartrate (LOPRESSOR) 50 MG BID PO Montelukast Sodium (SINGULAIR) 10 MG DAILY PO Nystatin (MYCOSTATIN 15 GM CREAM) 1 APPLIC BID T OPICAL Pregabalin (LYRICA) 75 MG TID PO Tamsulosin HCl (Flomax 0.4 mg) 0.4 MG DAILY PO Insulin Human Lispro (HUMALOG) 40 UNIT TID MEALS SUBQ Insulin Human Lispro (HUMALOG) 0 AC HS SUBQ Pantoprazole (PROTONIX) 40 MG AC BK PO Acetaminophen (TYLENOL) 650 MG Q4H PRN PRN PO Dextrose/Water (DEXTROSE 10% IN WATER) 125 ML DIR PRN IV (CKD) Dextrose/Water (DEXTROSE 10% IN WATER) 250 ML DIR PRN IV (CKD) Glucagon (GLUCAGON) 1 MG ASDIR PRN IM Heparin Sodium (HEPARIN 5000 UNITS/ML) 0 ASDIR P RN IV Heparin Sodium (Porcine) (HEPARIN 25,000 UNITS/ 1/2NS 500ML) 500 ML ASDIR IV (CKD) Labetalol HCl (LABETALOL HCL) 10 MG Q4H PRN PRN IV Ondansetron HCl (ZOFRAN) 4 MG Q4H PRN PRN IV Albuterol Sulfate (ALBUTEROL SULFATE) 1.25 MG RT Q6H PRN NEB Colchicine (COLCRYS) 0.6 MG DAILY PRN PRN PO Morphine Sulfate (morphine SULFATE) 2 MG Q6H PRN PRN IV Nitroglycerin (NITROSTAT) 0.4 MG Q5M PRN PRN SL Physical Exam General appearance: obese, alert, awake, oriente d Neck: no JVD Cardiovascular: CV assessment: regular rate and rhythm Respiratory: decreased breath sounds, on oxygen, no distress Abdomen: non-tender Genitourinary: urinary catheter, urine Lower extremity: LE assessment: edema Neuro/CONTINUOUS MINER: alert Skin: lesion (LE), rash Psychiatry: normal affect, normal mood Results Findings/Data: Laboratory Tests 10/01 1925 Chemistry POC Glucose (70 - 110 MG/DL) 202 H Laboratory Tests 10/02 10/01 10/01 0201 1831 0852 Coagulation PTT (Anthony) (25.0 - 39.5 Seconds) 50.3 H 49.0 H 24.0 L Radiology data: Recent Impressions: CAT SCAN - CT CHEST W/O CONTRAST 10/01 1140 Report Impression - Status: SIGNED Entered: 10/01/2022 1226 IMPRESSION: No acute findings. Extensive coronary artery atherosclerotic calcif ications Ascending thoracic aorta aneurysm. Follow-up exa m is recommended Impression By: Keira Garza M.D. ULTRASOUND - DUP VEIN DAMIAN 10/01 1233 Report Impression - Status: SIGNED Entered: 10/01/2022 1242 IMPRESSION: Greater saphenous vein is patent. Vein mapping a s described. Impression By: Keira Garza M.D. ULTRASOUND - DUP EXTRACRANIAL DAMIAN 10/01 1233 Report Impression - Status: SIGNED Entered: 10/01/2022 1240 IMPRESSION: No flow-limiting proximal internal carotid arter ial stenosis. REFERENCES: The degree of internal carotid artery stenosis i s based on criteria defined by the IAC Vascular Testing cri teria. Normal is no stenosis. Mild is less than 50% stenosis. Mod erate is 50-69% stenosis. Severe is greater than 69% stenosis to near occlusion. Near occlusion is a markedly narrowed lumen. Tot al occlusion is no detectable patent lumen. Impression By: Matthew Mercado M.D. Results: labs reviewed, vital signs reviewed, rh ythm personally rev'd Telemetry Interpretation: sinus rhythm Diagnosis, Assessment Plan Plan discussed with: patient, admitting jillian mijares, collaborating MD Free Text DxA P Notes Free Text DxA P Notes: 82 YO male with PMHx of CAD, [place] with prior PCI/D ES, HTN, DM, HLD, CHF, morbid obesity, CKD who was admitted at [facility] with chest pain ruled in for NSTEMI. LHC revealed multive ssel CAD including distal left main. The patient is transferred to this facility for CABG evaluation . Currently patient is chest pain free. 1. NSTEMI/Multivessel CAD including distal LM * CABG eval in progress * if turned down for bypass then he need Impella-assisted high risk PCI to the LAD and RCA * continue heparin gtt * ASA, Statin, BB * hold Plavix 2. Chronic CHF * BNP normal * echo pending 3. Hypertension * BP stable, contine BP meds 4. Diabetes mellitus * manage per PCP 5. CKD * creat 2.8 * recommend nephrology consultation 6. Asthma MDM by Dr. Ricci. Brooklyn Ricci 10/03/22 1317: Attestations Physician Attestation Agree w/findings plan: I have seen and examined the pt, I Agree with th e findings and plan as documented by Kathya Sorensen. Patient denies any shortness of breath however h e appears a little overloaded and short of breath. His creatinine is worse tod ay 2.8, he is a high risk for CABG due to advanced kidney disease morbid obesi ty and severe deconditioning. We will discuss tomorrow in the complex coronary conference but likely would benefit from PCI of the left main into LAD. Given the worsening creatinine will consult nephrology at 1219 Electronically Signed by Brooklyn Ricci MD on 0 10/03/22 at 1315 RPT #:[id number] END OF REPORT 2022-10-01 [facility] 22:24:00-00:00 [facility] ([facility]) Cardiology Consultation REPORT#:[id number] REPORT STATUS: Signed DATE:10/01/22 TIME: 2223 PATIENT: ERIKA BROWN UNIT #: [id number] ROOM/BED: 4[address]1 : 41 AGE: 82 SEX: M ATTEND: Zan Prieto DO ADM AUTHOR: Kathya Sorensen ACNP * ALL edits or amendments must be made on the [employer]/computer document * Kathya Sorensen 10/01/22 2224: History of Present Illness HPI Requesting Clinician: Dr. Mensah Reason for consult: CAD, NSTEMI Chief complaint: Chest pain PCP: PCP: Floyd Mccarthy MD NYHA Classification: III HPI: 82 YO male with PMHx of CAD, [place] with prior PCI/D ES, HTN, DM, HLD, CHF, morbid obesity, CKD who was admitted at [facility] with chest pain ruled in for NSTEMI. LHC revealed multive ssel CAD including distal left main. The patient is transferred to this facility for CABG evaluation . Currently patient is chest pain free. Hx Obtained From Patient, Prior medical records History - Adult longitudinal Past medical history: Reports: Asthma, Congestive heart failure, Coron pauline artery disease, Diabetes mellitus, GERD/gastritis, Hy pertension, Kidney disease/stones, BPH, Chronic pain , Dyslipidemia, Prior [place]. Denies: Atrial fibrill ation. Past surgical history: Reports: Cholecystectomy, He rnia repair, (back surgery ). Family history: Reports: Heart disease, Hypertension. Alcohol use: Denies EtOH use Drug use: Denies recreational drugs Smoking status for patients 13 years old or older: Former Smoker (quit 60 years ago) Home medications: Home Medications: ASPIRIN 81 MG PO DAILY AMOXICILLIN/CLAV K (AUGMENTIN 875/125 MG) 875 MG PO BID METOPROLOL TARTRATE (LOPRESSOR) 50 MG PO BID ALLOPURINOL (ZYLOPRIM) 100 MG PO DAILY MORPHINE SULFATE (MORPHINE SULFATE INJ) 2 MG IM Q6H PRN PRN PAIN SCALE 7-10 ONDANSETRON 4 MG IV Q6H PRN PRN NAUSEA AND VOMIT ING MONTELUKAST (SINGULAIR) 10 MG PO DAILY TAMSULOSIN ER (FLOMAX) 0.4 MG PO DAILY FINASTERIDE (PROSCAR) 5 MG PO DAILY PREGABALIN (LYRICA) 75 MG PO TID ENALAPRIL (VASOTEC) 20 MG PO DAILY INSULIN ASPART (NovoLOG FLEXPEN (15mL)) 40 UNITS SUBQ TID MEALS ESOMEPRAZOLE MAG DR (NexIUM) 20 MG PO DAILY ESCITALOPRAM (LEXAPRO) 10 MG PO DAILY NYSTATIN (MYCOSTATIN 100,000 UNITS/GM) 1 APPLIC TOPICAL BID FUROSEMIDE (LASIX) 40 MG PO DAILY ALBUTEROL (ALBUTEROL 2.5 MG/3 ML (75mL)) 1.25 MG NEB RTQ6H PRN SHORTNESS OF BREATH NITROGLYCERIN (NITROSTAT) 0.4 MG SL Q5M PRN PRN CHEST PAIN COLCHICINE (COLCRYS) 0.6 MG PO DAILY PRN PRN GOU T PAIN Allergies: Coded Allergies: melatonin (Mild, RASH-UNKNOWN 10/01/22) zolpidem (From AMBIEN) (Intermediate, KEEPS HIM AWAKE 09/30/22) Ambulatory status: Independent Review of Systems Constitutional: generalized weakness. Respiratory: Denies: SOB. Cardiovascular: Reports: edema, orthopnea. Denies: chest pain, p alpitations. GI: Denies: abdominal pain, nausea, vomiting. : Denies: dysuria. Neuro: Denies: change in LOC, confusion, dizziness. Objective General VS/I O: Vital Signs: Date Time Temp Pulse Resp B/P B/P Pulse O2 O2 F low FiO2 Mean Ox Delivery Rate 10/01 1926 36.7 81 16 111/62 78.4 94 Room air 10/01 1652 36.7 70 18 144/76 99.0 95 Room air 10/01 0925 37.3 80 18 152/80 103.9 91 Room air 10/01 0429 36.5 69 14 134/74 94.3 94 Room air 10/01 0213 36.5 66 14 138/75 95.6 95 Room air 09/30 2259 36.4 85 14 180/83 115.0 93 Room air 24 hour I O ending at 0700: 10/01 0700 09/30 1900 Intake Total Output Total 600 Balance -600 Output, Urine 600 Patient 153 kg Weight Weight Standing scale Measurement Method PATIENT WEIGHT: Weight (lb): 337 Weight (oz): 4.92 Weight (kg): 153.000 Medications: Active Meds + DC'd Last 24 Hrs Atorvastatin Calcium (LIPITOR) 40 MG 2100 PO Insulin Glargine (Semglee) 50 UNIT BEDTIME SUBQ Allopurinol (ZYLOPRIM) 100 MG DAILY PO Amoxicillin/Clavulanate Potassium (AUGMENTIN 875 ) 875 MG BID PO (CKD) Aspirin (ASPIRIN) 81 MG DAILY PO Enalapril Maleate (VASOTEC) 20 MG DAILY PO Escitalopram Oxalate (LEXAPRO) 10 MG DAILY PO Finasteride (PROSCAR) 5 MG DAILY PO Furosemide (LASIX) 40 MG DAILY PO Metoprolol Tartrate (LOPRESSOR) 50 MG BID PO Montelukast Sodium (SINGULAIR) 10 MG DAILY PO Nystatin (MYCOSTATIN 15 GM CREAM) 1 APPLIC BID T OPICAL Pregabalin (LYRICA) 75 MG TID PO Tamsulosin HCl (Flomax 0.4 mg) 0.4 MG DAILY PO Insulin Human Lispro (HUMALOG) 40 UNIT TID MEALS SUBQ Insulin Human Lispro (HUMALOG) 0 AC HS SUBQ Pantoprazole (PROTONIX) 40 MG AC BK PO Acetaminophen (TYLENOL) 650 MG Q4H PRN PRN PO Dextrose/Water (DEXTROSE 10% IN WATER) 125 ML DIR PRN IV (CKD) Dextrose/Water (DEXTROSE 10% IN WATER) 250 ML DIR PRN IV (CKD) Glucagon (GLUCAGON) 1 MG ASDIR PRN IM Heparin Sodium (HEPARIN 5000 UNITS/ML) 0 ASDIR P RN IV Heparin Sodium (Porcine) (HEPARIN 25,000 UNITS/ 1/2NS 500ML) 500 ML ASDIR IV (CKD) Labetalol HCl (LABETALOL HCL) 10 MG Q4H PRN PRN IV Ondansetron HCl (ZOFRAN) 4 MG Q4H PRN PRN IV Albuterol Sulfate (ALBUTEROL SULFATE) 1.25 MG RT Q6H PRN NEB Colchicine (COLCRYS) 0.6 MG DAILY PRN PRN PO Melatonin (Melatonin) 10 MG BEDTIME PRN PO (CAN) Morphine Sulfate (morphine SULFATE) 2 MG Q6H PRN PRN IV Nitroglycerin (NITROSTAT) 0.4 MG Q5M PRN PRN SL Physical Exam General appearance: obese, alert, awake, oriente d Neck: no JVD Cardiovascular: CV assessment: regular rate and rhythm Respiratory: decreased breath sounds, on oxygen, no distress Abdomen: non-tender Genitourinary: urinary catheter, urine Lower extremity: LE assessment: edema Neuro/CONTINUOUS MINER: alert Skin: lesion (LE), rash Psychiatry: normal affect, normal mood Results Findings/Data: Laboratory Tests 10/01 10/01 10/01 09/30 1926 0642 0642 2259 Chemistry Sodium (134 - 147 mEq/L) 135 Potassium (3.4 - 5.0 mEq/L) 4.4 Chloride (100 - 108 mEq/L) 103 Carbon Dioxide (21 - 33 mEq/l) 27 Anion Gap (0 - 20) 9 BUN (7 - 18 mg/dL) 21 H Creatinine (0.6 - 1.3 mg/dL) 2.0 H Glomerular Filtr Rate (70 - 80) 32.9 L Glucose (70 - 110 mg/dL) 260 H POC Glucose (70 - 110 MG/DL) 202 H 248 H Hemoglobin A1c (4.8 - 6.0 %A1C) 9.8 H Calcium (8.0 - 10.5 mg/dL) 9.5 Laboratory Tests 10/01 10/01 10/01 10/01 1831 0852 0642 0102 Coagulation INR (0.8 - 1.2) 1.1 PTT (Anthony) (25.0 - 39.5 Seconds) 49.0 H 24.0 L 30.5 29.9 PT Patient/Control Mix (9.3 - 12.9 SECONDS) 12. 0 Laboratory Tests 10/01 10/01 0642 0102 Hematology WBC (4.5 - 11.0 x10 3/uL) 7.4 9.2 RBC (4.00 - 5.60 x10 6/uL) 4.08 4.19 Hgb (12.5 - 16.9 g/dL) 11.8 L 12.5 Hct (37.5 - 50.7 %) 36.3 L 38.0 MCV (81.0 - 99.0 fL) 89.0 90.7 MCH (27.0 - 33.0 pg) 28.9 29.8 MCHC (33.0 - 37.0 g/dL) 32.5 L 32.9 L RDW (11.5 - 14.5 %) 14.8 H 14.6 H Plt Count (150 - 400 x10 3/uL) 138 L 158 MPV (7.0 - 9.0 fL) 10.4 H 10.9 H Neut % (Auto) (56.0 - 77.0 %) 62.0 66.2 Lymph % (Auto) (14.0 - 32.0 %) 23.1 20.4 Fisher % (Auto) (4.8 - 9.0 %) 8.2 8.2 Eos % (Auto) (0.3 - 3.7 %) 5.7 H 4.1 H Baso % (Auto) (0.0 - 2.0 %) 0.5 0.8 Neut # (Auto) (2.0 - 7.6 x10 3/uL) 4.60 6.08 Lymph # (Auto) (1.0 - 3.8 x10 3/uL) 1.72 1.87 Fisher # (Auto) (0.1 - 0.8 x10 3/uL) 0.61 0.75 Eos # (Auto) (0.0 - 0.2 x10 3/uL) 0.42 H 0.38 H Baso # (Auto) (0.0 - 0.2 x10 3/uL) 0.04 0.07 Abs Immat Gran (auto) (0.00 - 0.03 x10 3/uL) 0. 04 H 0.03 Add Manual Diff NO NO Immature Gran % (0.0 - 2.0 %) 0.5 0.3 Nucleated RBC % (0 - 0 %) 0.0 0.0 Nucleated RBCs # (Man) (0.0 - 0.1 x10 3/uL) 0.0 0 0.00 Microbiology Date/Time Procedure - Status Source Growth 10/01 0108 MRSA DNA Surveillance Screen - COMP NASAL Radiology Data: Recent Impressions: CAT SCAN - CT CHEST W/O CONTRAST 10/01 1140 Report Impression - Status: SIGNED Entered: 10/01/2022 1226 IMPRESSION: No acute findings. Extensive coronary artery atherosclerotic calcif ications Ascending thoracic aorta aneurysm. Follow-up exa m is recommended Impression By: [email or web address] - Jonh Garza M.D. ULTRASOUND - DUP VEIN DAMIAN 10/01 1233 Report Impression - Status: SIGNED Entered: 10/01/2022 1242 IMPRESSION: Greater saphenous vein is patent. Vein mapping a s described. Impression By: [email or web address] - Jonh Garza M.D. ULTRASOUND - DUP EXTRACRANIAL DAMIAN 10/01 1233 Report Impression - Status: SIGNED Entered: 10/01/2022 1240 IMPRESSION: No flow-limiting proximal internal carotid arter ial stenosis. REFERENCES: The degree of internal carotid artery stenosis i s based on criteria defined by the IAC Vascular Testing cri teria. Normal is no stenosis. Mild is less than 50% stenosis. Mod erate is 50-69% stenosis. Severe is greater than 69% stenosis to near occlusion. Near occlusion is a markedly narrowed lumen. Tot al occlusion is no detectable patent lumen. Impression By: [email or web address] - Nathaniel Mercado M.D. Results: labs reviewed, vital signs reviewed, [facility] personally rev'd Diagnosis, Assessment Plan Plan discussed with: patient, collaborating MD, nurse Free Text DxA P Notes Free Text DxA P Notes: 82 YO male with PMHx of CAD, [place] with prior PCI/D ES, HTN, DM, HLD, CHF, morbid obesity, CKD who was admitted at [facility] with chest pain ruled in for NSTEMI. LHC revealed multive ssel CAD including distal left main. The patient is transferred to this facility for CABG evaluation . Currently patient is chest pain free. 1. NSTEMI/Multivessel CAD including distal LM * CTS consult for CABG eval * if turned down for bypass then he need Impella-assisted high risk PCI to the LAD and RCA * continue heparin gtt * ASA, Statin, BB * hold Plavix 2. Chronic CHF * check BNP * echo 3. Hypertension * resume BP meds 4. Diabetes mellitus * manage per PCP 5. CKD * creat 2 * check BMP in AM. 6. Asthma Appreciate the referral. MDM by Dr. Ricci. Brooklyn Ricci 10/03/22 1314: Attestations Physician Attestation Agree w/findings plan: I have seen and examined the pt, I Agree with th e findings and plan as documented by Kathya Sorensen. Patient presented with chest pain. Matty barillas underwent coronary angiogram that showed severe three-vesse l disease and was transferred here for higher level of care. Patient is very sedentary mostly bedridden he had chest pain with minimal activities. Patient also has v olume overload. Patient is likely not a good candidate for CABG due to age and severe deconditioning and CKD stage IV. Likely he will benefit from PCI, w ill discuss the case with CT surgery. at 2248 Electronically Signed by Brooklyn Ricci MD on at 1317 RPT #:[id number] END OF REPORT 2022-10-01 [facility] 12:29:00-00:00 [facility] ([facility]) Hospitalist Progress Note REPORT#:[id number] REPORT STATUS: Signed DATE:10/01/22 TIME: 1229 PATIENT: ERIKA BROWN UNIT #: [id number] ROOM/BED: [place] [address] : 41 AGE: 82 SEX: M ATTEND: Zan Prieto DO ADM AUTHOR: Henrique Prieto DO * ALL edits or amendments must be made on the [employer]/computer document * Subjective Chief complaint: Patient denies chest pain or shortness of breath HPI: 82 y/o man with PMHx of CAD with multiple PCI/Stents/[place], Chronic diastolic CHF, HTN, DM, BPH, CKD 4, gout dyslipidemia and GERD that was admitted to [facility] with chest pain. recent admiss ion and discharge from same hospital and been at home si wye 09/26/22. continue to have chest pain. Patient had elevated troponin but no ST levation on EKG. Und erwent cardiac cath today and foun ou to have distal left main diseas of 90%, ostial LAD 90% with other lession with 60% and 80% osman nosis, Circ with ostial 90% and then patent stent ( Non dominant), RCA (large dominant) sten t with 50% ISR, Mid with 80% stenosis, PDA with with 80% stenosis. Objective General VS/I O: Vital Signs: Date Time Temp Pulse Resp B/P B/P Pulse O2 O2 F low FiO2 Mean Ox Delivery Rate 10/01 924 99.1 80 18 152/80 103.9 91 Room air 10/01 428 97.7 69 14 134/74 94.3 94 Room air 10/01 0213 97.7 66 14 138/75 95.6 95 Room air 09/30 2259 97.5 85 14 180/83 115.0 93 Room air 24 hour I O ending at 0700: 10/01 0700 09/30 1900 Intake Total Output Total 600 Balance -600 Output, Urine 600 Patient 153 kg Weight Weight Standing scale Measurement Method PATIENT WEIGHT: Weight (lb): 337 Weight (oz): 4.92 Weight (kg): 153.000 Physical Exam General appearance: alert, awake, oriented Head/Eyes: atraumatic, EOMI, normal conjunctiva/ sclera, normocephalic ENT: moist mucosal membranes Neck: full range of motion, no bruit/NL carotids , no JVD Cardiovascular: normal heart sounds, regular rat e rhythm Respiratory: aerating well, clear to auscultatio n, symmetric expansion, no distress Abdomen: non-tender Extremities: moves all, no cyanosis, no edema Neuro/CONTINUOUS MINER: alert, oriented X 3, normal speech, n o motor deficits, no sensory deficits Skin: intact, normal color, no rash Diagnosis, Assessment Plan Free Text DxA P Notes Free text DxA P notes: 1. CAD (coronary artery disease) -NSTEMI -Multi-vessel CAD with left main disease. -CVS consult -If turn down for CABG with need complex high r isk PCI of the left main, LAD and RCA. -BB, ASA, Statin. -Heparin drip 2. HTN (hypertension) PRN labetalol continue with metoprolol Hold marlena due to ckd 3. DM type 2 (diabetes mellitus, type 2) with h yperglycemia Resume home Insulin. ISS. Adjsut home insulin a s needed. HGA1c 9.8 -NovoLog 40 units AC, Lantus 50 units at bedtim e 4. CKD (chronic kidney disease) stage 4, GFR 15 -29 ml/min hold marlena. Monitor due to recent cath. 5. Chronic diastolic heart failure Chronic diastolic dysfuntion. LVEF 55-60% Currently compnsated w/o acute exacerbation. CXR and [place] was normal per records. 6. BPH (benign prostatic hyperplasia) resume proscar and flomax 7. Asthma stable 8. Gout stable resume allopurinol 9. Dyslipidemia resume lipitor 10. Cellulitis Continue with Augmentin from previous hospital Morbid obesity BMI 49.8. Will need to fo llow-up outpatient with PCP for weight loss Resuscitation discussion: Discussed with: patient Code status: full code Quality: Gen Med Crit Care VTE Prophylaxis VTE prophylaxis initiated: yes Current Medications Current medication review: I attest that the foregoing medication list in t he medical record is true, accurate, and complete to the best of my knowled ge. Advanced Care Plan 65 or Older Discussed with: patient Discussion included: living will (none), power of workers compensation defense attorney (none), code status ( full code) at 1237 RPT #:[id number] END OF REPORT 2022-10-01 [facility] 08:10:00-00:00 [facility] ([facility] Cardiothoracic Surgery Consult REPORT#:[id number] REPORT STATUS: Signed DATE:10/01/22 TIME: 809 PATIENT: ERIKA BROWN UNIT #: [id number] ROOM/BED: [place] [id number] : 41 AGE: 82 SEX: M ATTEND: Zan Prieto DO ADM AUTHOR: Maged Oakley * ALL edits or amendments must be made on the [employer]/computer document * History of Present Illness HPI Chief complaint: Chest pain NSTEMI Multivessel CAD PCP: PCP: Floyd Mccarthy MD Requesting Clinician Bruce Mensah MD HPI: This is a 82 year old gentleman with past medica l history of [place], CAD with multiple stents, diastolic CHF, HTN, HLD, DM, BP H, CKD 4, gout, dyslipidemia, chronic back pain, and GERD that was admitted to [facility] with chest pain. Patient was found to have a NSTEMI a nd was taken for coronary angiogram which revealed distal left main diseas of 90%, ostial LAD 90% with other lession with 60% and 80% stenosis, Circ wi th ostial 90% and then patent stent (Non dominant), RCA (large dominant) stent with 50% ISR, Mid with 80% stenosis, PDA with with 80% stenosis. Patient was transferred to [facility] and CV surgery was consulted for further evaluat ion. History Past Medical History: Reports: Asthma, Congestive heart failure, Diabe aliza mellitus, GERD/gastritis, Hypertension, BPH, Chronic pain, Dyslipidemia, P rior [place]. Past Surgical History: Reports: Cholecystectomy, He rnia repair, (back surgery ). Family History Reports: Heart disease, Hypertension. Alcohol Use Denies EtOH use Drug Use Denies recreational drugs Smoking status for patients 13 years old or older: Former Smoker (quit 60 years ago) Medications: Home Medications: Medication Dose/Rte/Freq Days Qty Entered Last Max Daily Dose Reviewed ASPIRIN 81 MG PO DAILY 09/30/22 09/30/22 Strength: 81 MG TAB.CHEW 2308 2320 AMOXICILLIN/CLAV K 875 MG PO BID 09/30/2209/30 (AUGMENTIN 875/125 MG) 2308 2320 Strength: 875 MG-125 MG TAB METOPROLOL TARTRATE 50 MG PO BID 09/30/2210/15 (LOPRESSOR) 2309 2320 Strength: 50 MG TAB ALLOPURINOL (ZYLOPRIM) 100 MG PO DAILY 09/30/22 09/30/22 Strength: 100 MG TAB 2309 2321 MORPHINE SULFATE 2 MG IM 09/30/22 09/30/22 (MORPHINE SULFATE INJ) Q6H PRN PRN PAIN 2311 21 Strength: 2 MG/ML SCALE 7-10 DISP.SYRIN ONDANSETRON 4 MG IV 09/30/22 09/30/22 Strength: 4 MG/2 ML VIAL Q6H PRN PRN NAUSEA 2312 2321 AND VOMITING MONTELUKAST (SINGULAIR) 10 MG PO DAILY 09/30/22 09/30/22 Strength: 10 MG TAB 2313 2321 TAMSULOSIN ER (FLOMAX) 0.4 MG PO DAILY 09/30/22 09/30/22 Strength: 0.4 MG 2313 2320 CAP.SR.24H FINASTERIDE (PROSCAR) 5 MG PO DAILY 09/30/22 Strength: 5 MG TAB 2314 232 PREGABALIN (LYRICA) 75 MG PO TID 09/30/2209/30 Strength: 75 MG CAP 5 2321 ENALAPRIL (VASOTEC) 20 MG PO DAILY 09/30/2210/15 Strength: 20 MG TAB 2315 2322 INSULIN ASPART 40 UNITS SUBQ 09/30/22 09/30/22 (NovoLOG FLEXPEN (15mL)) TID MEALS 2315 2321 Strength: 100 UNIT/ML (3 ML) PEN.INJCTR ESOMEPRAZOLE MAG YIN 20 MG PO DAILY 09/30/2210/15 (NexIUM) 2316 232 Strength: 20 MG CAP. ESCITALOPRAM (LEXAPRO) 10 MG PO DAILY 09/30/22 09/30/22 Strength: 10 MG TAB 2316 2320 NYSTATIN 1 APPLIC TOPICAL BID 09/30/22 3 (MYCOSTATIN 100,000 8 2321 UNITS/GM) Strength: 100,000 UNIT/GRAM POWDER FUROSEMIDE (LASIX) 40 MG PO DAILY 09/30/2210/15 Strength: 40 MG TAB 2317 232 ALBUTEROL 1.25 MG NEB 09/30/22 09/30/22 (ALBUTEROL 2.5 MG/3 ML RTQ6H PRN 2318 2321 (75mL)) SHORTNESS OF Strength: 2.5 MG/3 ML BREATH (0.083 %) NEB NITROGLYCERIN 0.4 MG SL 09/30/22 09/30/22 (NITROSTAT) Q5M PRN PRN CHEST 2320 2322 Strength: 0.4 MG TAB.SL PAIN COLCHICINE (COLCRYS) 0.6 MG PO 09/30/22 3 Strength: 0.6 MG TAB DAILY PRN PRN GOUT 2321 232 1 PAIN Current Hospital Medications: fs Category Unknown Sig/Juliann Start time Last Medication Dose Route Stop Time Status Admin Melatonin 10 MG BEDTIME PRN 10/01 0030 CAN (Melatonin) PO 10/31 0029 Anti-Infective Agents Sig/Juliann Start time Last Medication Dose Route Stop Time Status Admin Amoxicillin/ 875 MG BID 10/01 899 CKD Clavulanate Potassium PO 10/06 858 (AUGMENTIN 875) Nystatin 1 APPLIC BID 10/01 899 AC (MYCOSTATIN 15 GM TOPICAL 10/31 858 CREAM) Autonomic Drugs Sig/Juliann Start time Last Medication Dose Route Stop Time Status Admin Tamsulosin HCl 0.4 MG DAILY 10/01 899 AC (Flomax 0.4 mg) PO 10/31 0859 Albuterol Sulfate 1.25 MG RTQ6H PRN 10/01 0030 AC (ALBUTEROL SULFATE) NEB 10/31 0029 Blood Formation,Coagulation Sig/Juliann Start time Last Medication Dose Route Stop Time Status Admin Heparin Sodium 0 ASDIR PRN 10/01 0045 AC (HEPARIN 5000 UNITS/ IV 10/31 0044 ML) Heparin Sodium 500 ML ASDIR 10/01 0045 CKD 08/ 9 (Porcine) IV 10/31 0044 0245 (HEPARIN 25,000 UNITS/ 1/2NS 500ML) Cardiovascular Drugs Sig/Juliann Start time Last Medication Dose Route Stop Time Status Admin Atorvastatin Calcium 40 MG 2100 10/01 2099 AC (LIPITOR) PO 10/31 2058 Enalapril Maleate 20 MG DAILY 10/01 899 AC (VASOTEC) PO 10/31 0859 Metoprolol Tartrate 50 MG BID 10/01 899 AC (LOPRESSOR) PO 11/01 0759 Labetalol HCl 10 MG Q4H PRN PRN 10/01 0045 AC (LABETALOL HCL) IV 10/31 0044 Nitroglycerin 0.4 MG Q5M PRN PRN 10/01 0030 AC (NITROSTAT) SL 10/31 0029 Central Nervous System Agents Sig/Juliann Start time Last Medication Dose Route Stop Time Status Admin Aspirin 81 MG DAILY 10/01 899 AC (ASPIRIN) PO 10/31 0859 Escitalopram Oxalate 10 MG DAILY 10/01 899 AC (LEXAPRO) PO 10/31 0859 Pregabalin 75 MG TID 10/01 899 AC (LYRICA) PO 10/31 0859 Acetaminophen 650 MG Q4H PRN PRN 10/01 0045 AC (TYLENOL) PO 10/31 0044 Morphine Sulfate 2 MG Q6H PRN PRN 10/01 0030 AC (morphine SULFATE) IV 10/06 0029 Electrolytic, Caloric, And Antonieta Sig/Juliann Start time Last Medication Dose Route Stop Time Status Admin Furosemide 40 MG DAILY 10/01 899 AC (LASIX) PO 10/31 0859 Dextrose/Water 125 ML ASDIR PRN 10/01 0045 CKD (DEXTROSE 10% IN IV 10/31 0044 WATER) Dextrose/Water 250 ML ASDIR PRN 10/01 0045 CKD (DEXTROSE 10% IN IV 10/31 0044 WATER) Gastrointestinal Drugs Sig/Juliann Start time Last Medication Dose Route Stop Time Status Admin Pantoprazole 40 MG AC BK 10/01 0730 AC (PROTONIX) PO 10/31 0729 Ondansetron HCl 4 MG Q4H PRN PRN 10/01 0045 AC (ZOFRAN) IV 10/31 0044 Hormones And Synthetic Substit Sig/Juliann Start time Last Medication Dose Route Stop Time Status Admin Insulin Human Lispro 40 UNIT TID MEALS 10/01 08 00 AC (HUMALOG) SUBQ 10/31 0759 Insulin Human Lispro 0 AC HS 10/01 0730 AC (HUMALOG) SUBQ 10/31 0729 Glucagon 1 MG ASDIR PRN 10/01 0045 AC (GLUCAGON) IM 10/31 0044 Miscellaneous Therapeutic Agen Sig/Juliann Start time Last Medication Dose Route Stop Time Status Admin Allopurinol 100 MG DAILY 10/01 0900 AC (ZYLOPRIM) PO 10/31 0859 Finasteride 5 MG DAILY 10/01 899 AC (PROSCAR) PO 10/31 0859 Colchicine 0.6 MG DAILY PRN PRN 10/01 0030 AC (COLCRYS) PO 10/31 0029 Respiratory Tract Agents Sig/Juliann Start time Last Medication Dose Route Stop Time Status Admin Montelukast Sodium 10 MG DAILY 10/01 0900 AC (SINGULAIR) PO 10/31 0859 Allergies: Coded Allergies: melatonin (Mild, RASH-UNKNOWN 10/01/22) zolpidem (From AMBIEN) (Intermediate, KEEPS HIM AWAKE 09/30/22) Cardiovascular History Previous Cardiac Intervention: Previous Cardiac Intervention: PCI - stent(s) Review of Systems Review of Systems Constitutional: Denies: chills, fatigue, generalized weakness. Skin: Denies: abrasion, bruising, ecchymosis. Allergy/Immun: Denies: allergic reaction, anaphylaxis, rhinorrh ea. Eyes: Denies: redness, discharge, itching. ENT: Denies: ear drainage, ear ringing, mouth pain, t hroat pain, toothache. Respiratory: Denies: MCCAULEY (dyspnea on exertion), SOB, wheezing . Cardiovascular: Denies: chest pain, palpitations. GI: Denies: abdominal pain, nausea, vomiting. : Denies: dysuria, flank pain. Musculoskeletal: Denies: arthritis, extremity pain, joint swellin g. Heme: Denies: adenopathy, bleeding, bruising. Neuro: Denies: bladder dysfunction, confusion, seizure, syncope. All systems rev neg: except as marked Objective Physical Exam VS/I O: Last Documented: Result Date Time Pulse Ox 94 10/01 428 B/P 134/74 10/01 428 B/P Mean 94.3 10/01 428 O2 Delivery Room air 10/01 428 Temp 36.5 10/01 428 Pulse 69 10/01 428 Resp 14 10/01 428 24 hour I O ending at 0700: 10/01 0700 09/30 1900 Intake Total Output Total 600 Balance -600 Output, Urine 600 Patient 153 kg Weight Weight Standing scale Measurement Method PATIENT WEIGHT: Weight (lb): 337 Weight (oz): 4.92 Weight (kg): 153.000 General appearance: alert, awake, oriented HEENT: anicteric, mucosal membranes moist, pupil s reactive to light Cardiovascular: BP/pulses equal bilat., normal h eart sounds, regular rate rhythm Respiratory: aerating well, symmetric expansion, no distress Abdomen: soft, non-tender Genitourinary: no bladder distention, no flank p ain Extremities: dry, moves all, normal capillary re fill Neuro/CONTINUOUS MINER: alert, oriented X 3 Skin: dry, intact Psychiatry: normal affect, normal mood Results Findings/Data: Laboratory Tests 10/01 10/01 09/30 0642 0642 0491 Chemistry Sodium (134 - 147 mEq/L) 135 Potassium (3.4 - 5.0 mEq/L) 4.4 Chloride (100 - 108 mEq/L) 103 Carbon Dioxide (21 - 33 mEq/l) 27 Anion Gap (0 - 20) 9 BUN (7 - 18 mg/dL) 21 H Creatinine (0.6 - 1.3 mg/dL) 2.0 H Glomerular Filtr Rate (70 - 80) 32.9 L Glucose (70 - 110 mg/dL) 260 H POC Glucose (70 - 110 MG/DL) 248 H Hemoglobin A1c (4.8 - 6.0 %A1C) 9.8 H Calcium (8.0 - 10.5 mg/dL) 9.5 Laboratory Tests 08/09 08/09 08/09 0852 0642 0102 Coagulation INR (0.8 - 1.2) 1.1 PTT (Anthony) (25.0 - 39.5 Seconds) 24.0 L 30.5 29 .9 PT Patient/Control Mix (9.3 - 12.9 SECONDS) 12 .0 Laboratory Tests 10/01 Hematology WBC (4.5 - 11.0 x10 3/uL) 7.4 9.2 RBC (4.00 - 5.60 x10 6/uL) 4.08 4.19 Hgb (12.5 - 16.9 g/dL) 11.8 L 12.5 Hct (37.5 - 50.7 %) 36.3 L 38.0 MCV (81.0 - 99.0 fL) 89.0 90.7 MCH (27.0 - 33.0 pg) 28.9 29.8 MCHC (33.0 - 37.0 g/dL) 32.5 L 32.9 L RDW (11.5 - 14.5 %) 14.8 H 14.6 H Plt Count (150 - 400 x10 3/uL) 138 L 158 MPV (7.0 - 9.0 fL) 10.4 H 10.9 H Neut % (Auto) (56.0 - 77.0 %) 62.0 66.2 Lymph % (Auto) (14.0 - 32.0 %) 23.1 20.4 Fisher % (Auto) (4.8 - 9.0 %) 8.2 8.2 Eos % (Auto) (0.3 - 3.7 %) 5.7 H 4.1 H Baso % (Auto) (0.0 - 2.0 %) 0.5 0.8 Neut # (Auto) (2.0 - 7.6 x10 3/uL) 4.60 6.08 Lymph # (Auto) (1.0 - 3.8 x10 3/uL) 1.72 1.87 Fisher # (Auto) (0.1 - 0.8 x10 3/uL) 0.61 0.75 Eos # (Auto) (0.0 - 0.2 x10 3/uL) 0.42 H 0.38 H Baso # (Auto) (0.0 - 0.2 x10 3/uL) 0.04 0.07 Abs Immat Gran (auto) (0.00 - 0.03 x10 3/uL) 0. 04 H 0.03 Add Manual Diff NO NO Immature Gran % (0.0 - 2.0 %) 0.5 0.3 Nucleated RBC % (0 - 0 %) 0.0 0.0 Nucleated RBCs # (Man) (0.0 - 0.1 x10 3/uL) 0.0 0 0.00 Microbiology Date/Time Procedure - Status Source Growth 10/01 0108 MRSA DNA Surveillance Screen - COMP NASAL Results: labs reviewed, vital signs reviewed, vi nargis signs stable, x-ray personally reviewed, current med profile rev'd Diagnosis, Assessment Plan Free Text A P: This is a 82 year old gentleman with past medica l history of [place], CAD with multiple stents, diastolic CHF, HTN, HLD, DM, BP H, CKD 4, gout, dyslipidemia, chronic back pain, and GERD that was admitted to [facility] with chest pain. Patient was found to have a NSTEMI a nd was taken for coronary angiogram which revealed distal left main diseas of 90%, ostial LAD 90% with other lession with 60% and 80% stenosis, Circ wi th ostial 90% and then patent stent (Non dominant), RCA (large dominant) stent with 50% ISR, Mid with 80% stenosis, PDA with with 80% stenosis. Patient was transferred to [facility] and CV surgery was consulted for further evaluat ion. In view of his age and limited mobility he is a high risk candidate for surgical revascularization. PLAN Initiate pre op workup Carotid duplex BLE vein mapping and marking CT chest w/o contrast Incentive spirometer teaching UA to r/o UTI We will present the patient in the high risk car dia surgery conference Further recommendations to follow Thank you for this kind consultation. Quality: Trauma Gen Surg Advanced Care Plan 65 or Older Discussed with: patient Discussion included: living will (none), power of workers compensation defense attorney (none), code status ( full code) Current Medications Current medication review: I attest that the foregoing medication list in t he medical record is true, accurate, and complete to the best of my knowled ge. VTE Prophylaxis - General VTE prophylaxis initiated: yes at 1233 RPT #:[id number] END OF REPORT 2022-09-30 [facility] 23:57:00-00:00 [facility] ([facility]) Hospitalist History Physical REPORT#:[id number] REPORT STATUS: Signed DATE:09/30/22 TIME: 2352 PATIENT: ERIKA BROWN UNIT #: [id number] ROOM/BED: [place] [address] : 41 AGE: 82 SEX: M ATTEND: Floyd Mccarthy MD ADM AUTHOR: Bruce Mensah MD * ALL edits or amendments must be made on the [employer]/computer document * History of Present Illness HPI Chief complaint: Chest pain, NSTEMI, Multivessel CAD PCP: PCP: HPI: 82 y/o man with PMHx of CAD with multiple PCI/Stents/[place], Chronic diastolic CHF, HTN, DM, BPH, CKD 4, gout dyslipidemia and GERD that was admitted to [facility] with chest pain. recent admiss ion and discharge from same hospital and been at home si nce 09/26/22. continue to have chest pain. Patient had elevated troponin but no ST levation on EKG. Und erwent cardiac cath today and foun ou to have distal left main diseas of 90%, ostial LAD 90% with other lession with 60% and 80% osman nosis, Circ with ostial 90% and then patent stent ( Non dominant), RCA (large dominant) sten t with 50% ISR, Mid with 80% stenosis, PDA with with 80% stenosis. Informant/historian: patient, prior records History Past Medical Surgical Hx Patient History: 1. CAD (coronary artery disease) 2. CKD (chronic kidney disease) stage 4, GFR 15 -29 ml/min 3. HTN (hypertension) 4. Gout 5. Chronic back pain 6. Dyslipidemia 7. DM type 2 (diabetes mellitus, type 2) 8. Obesity 9. CHF (congestive heart failure) chronic diastolic dysfuntion 10. DELMY (obstructive sleep apnea) 11. BPH (benign prostatic hyperplasia) 12. Lyme disease 13. Skin cancer 14. Neuropathy 15. Asthma 16. History of back surgery 17. Hx of cholecystectomy 18. History of hernia repair 19. History of coronary artery stent placement Family History Family history: Reports: Heart disease, Hypertension. Social History Alcohol use: Denies EtOH use Smoking status for patients 13 years old or older: Former Smoker (quit 60 years ago) Medication/Allergy-Vaccine Hx Medications: Home Medications: ASPIRIN 81 MG PO DAILY AMOXICILLIN/CLAV K (AUGMENTIN 875/125 MG) 875 MG PO BID METOPROLOL TARTRATE (LOPRESSOR) 50 MG PO BID ALLOPURINOL (ZYLOPRIM) 100 MG PO DAILY MELATONIN 10 MG PO BEDTIME PRN INSOMNIA MORPHINE SULFATE (MORPHINE SULFATE INJ) 2 MG IM Q6H PRN PRN PAIN SCALE 7-10 ONDANSETRON 4 MG IV Q6H PRN PRN NAUSEA AND VOMIT ING MONTELUKAST (SINGULAIR) 10 MG PO DAILY TAMSULOSIN ER (FLOMAX) 0.4 MG PO DAILY FINASTERIDE (PROSCAR) 5 MG PO DAILY PREGABALIN (LYRICA) 75 MG PO TID ENALAPRIL (VASOTEC) 20 MG PO DAILY INSULIN ASPART (NovoLOG FLEXPEN (15mL)) 40 UNITS SUBQ TID MEALS ESOMEPRAZOLE MAG DR (NexIUM) 20 MG PO DAILY ESCITALOPRAM (LEXAPRO) 10 MG PO DAILY NYSTATIN (MYCOSTATIN 100,000 UNITS/GM) 1 APPLIC TOPICAL BID FUROSEMIDE (LASIX) 40 MG PO DAILY ALBUTEROL (ALBUTEROL 2.5 MG/3 ML (75mL)) 1.25 MG NEB RTQ6H PRN SHORTNESS OF BREATH NITROGLYCERIN (NITROSTAT) 0.4 MG SL Q5M PRN PRN CHEST PAIN COLCHICINE (COLCRYS) 0.6 MG PO DAILY PRN PRN GOU T PAIN Allergies: Coded Allergies: zolpidem (From AMBIEN) (Intermediate, KEEPS HIM AWAKE 09/30/22) Uncoded Allergies: No Known Contrast Allergies (08/08/08) No Known Drug Allergies (08/08/08) No Known Food Allergies (08/08/08) No Known Other Allergies (08/08/08) Review of Systems Constitutional: Denies: chills, fatigue, fev er, generalized weakness, lethargy, malaise, recent wt loss, other. Respiratory: Denies: MCCAULEY (dyspnea on exertion), hemoptysis, n on productive cough, parox nocturnal dyspnea, pleurisy, pleuritic pain, pneumonia, productive cough (sputum ), SOB, wheezing. Cardiovascular: Reports: chest pain. Denies: MCCAULEY (dyspnea on exe rtion), edema, orthopnea, palpitations, parox nocturnal dyspnea. All systems rev neg: except as noted OBJECTIVE VS/I O: Vital Signs Date Temp Pulse Resp B/P B/P Mean Pulse Ox FiO 2 09/30 97.5 85 14 180/83 115.0 93 Last Documented: Result Date Time Pulse Ox 93 09/30 2258 B/P 180/83 09/30 2258 B/P Mean 115.0 09/30 2258 O2 Delivery Room air 09/30 2258 Temp 97.5 09/30 2258 Pulse 85 09/30 2258 Resp 14 09/30 2258 Patient Weight and BMI Weight (kg): BMI: General appearance: obese (morbidly obese), aler t, awake, oriented Head/Eyes: atraumatic, EOMI, normal conjunctiva/ sclera, normocephalic ENT: moist mucosal membranes Neck: full range of motion, no bruit/NL carotids , no JVD Cardiovascular: normal heart sounds, regular rat e rhythm Respiratory: aerating well, clear to auscultatio n, symmetric expansion, no distress Abdomen: non-tender Extremities: moves all, no cyanosis, no edema Neuro/CONTINUOUS MINER: alert, oriented X 3, normal speech, n o motor deficits, no sensory deficits Skin: intact, normal color, no rash Results Findings/Data: Laboratory Tests: 09/30 2258 Chemistry POC Glucose (70 - 110 MG/DL) 248 H Results: vital signs reviewed Diagnosis, Assessment Plan Problem List/A P: 1. CAD (coronary artery disease) -NSTEMI -Multi-vessel CAD with left main disease. -CVS consult - If turn down for CABG with need compl ex high risk PCI of the left main, LAD and RCA. -BB, ASA, Statin. -Heparin drip 2. HTN (hypertension) PRN labetalol continue with metoprolol Hold marlena due to ckd 3. DM type 2 (diabetes mellitus, type 2) Resume home Insulin. ISS. Adjsut home insulin a s needed. Check HGA1c. 4. CKD (chronic kidney disease) stage 4, GFR 15 -29 ml/min hold marlena. Monitor due to recent cath. 5. CHF (congestive heart failure) Chronic diastolic dysfuntion. LVEF 55-60% Currently compnsated w/o acute exacerbation. CXR and [place] normal per records. 6. BPH (benign prostatic hyperplasia) resume proscar and flomax 7. Asthma stable 8. Gout stable resume allopurinol 9. Dyslipidemia resume lipitor 10. Cellulitis Continue with Augmentin from previous hospital Resuscitation discussion: Discussed with: patient Code status: full code Quality: Gen Med Crit Care VTE Prophylaxis VTE prophylaxis initiated: yes Current Medications Current medication review: I attest that the foregoing medication list in t he medical record is true, accurate, and complete to the best of my knowled ge. Advanced Care Plan 65 or Older Discussed with: patient Discussion included: living will (none), power of workers compensation defense attorney (none), code status ( full code) at 0110 RPT #:[id number] END OF REPORT
[2022-10-10] MEDS ORDERED: HYDROCORTISONE SUC 100 MG INJ ONE (10:58)
[2022-10-10] MEDS ORDERED: BISACODYL 10 MG RECTAL SUPP ONE (10:58)
[2022-10-10] MEDS ORDERED: NA CHLORIDE 0.9% 1,000 ML ONE (10:59)
[2022-10-10] MEDS ORDERED: ONDANSETRON 4 MG/2 ML VIAL ONE (10:59)
[2022-10-10] MEDS ORDERED: MORPHINE 2 MG/ML SYR ONE ×2 (10:59→13:26)
[2022-10-10] MEDS ORDERED: FAMOTIDINE 20 MG/2 ML VIAL IV ONE (10:59)
[2022-10-10] MEDS ORDERED: LACTULOSE 20 GM/30 ML UCUP ONE (11:00)
--- NOTE | 2022-10-10 11:35 | RAD REPORT ---
EXAM DESCRIPTION: RAD - Chest Single View - 10/10/2022 11:28 am CLINICAL HISTORY: ABDOMINAL DISTENTION COMPARISON: Chest Single View dated 09/28/2022; Chest Single View dated 09/22/2022; Chest Single View d ated 09/04/2022; Chest Single View dated 09/02/2022 FINDINGS: Lines: None. Lungs: No evidence of edema or pneumonia. Pleural: No significant pleural effusions or pneumothorax. Cardiac: The heart size is within normal limits. Mediastinum: Within normal limits. Bones: No acute fractures. Other: None IMPRESSION: No acute cardiopulmonary disease.
[2022-10-10 11:41] LABS: Protime INR 1.08
[2022-10-10 11:43] LABS: Absolute Lymphocytes (CBC) 1.3 K/uL (0.7-4.9); Hematocrit 37.7 % (39.6-49.0); Lymphocytes % 16.1 % (15.3-44.8); MCV 89.3 fL (80-100); MPV 8.5 fL (7.6-11.3); Platelets 221 thou/uL (152-406); RBC Red Blood Cell Count 4.22 M/uL (4.33-5.43)
[2022-10-10 11:44] LABS: Specific Gravity 1.022 (1.005-1.030); Urine Bacteria None Seen /HPF (<20); Urine Bilirubin NEGATIVE (Negative); Urine Blood 2+ (Negative); Urine Clarity Clear (Clear); Urine Color Light-Yellow (Yellow); Urine Glucose 4+ (Over) (Negative); Urine Protein 1+ (Negative); Urine RBC 21-50 /HPF (None Seen); Urine Urobilinogen Normal (Normal); Urine pH 5.5 (5.0-7.0)
[2022-10-10 11:51] LABS: SARS-CoV-2 Antigen Rapid Res Negative (Negative)
[2022-10-10 11:57] LABS: Bilirubin Direct 0.2 mg/dL (0-0.2); Bilirubin Indirect, Calculated 0.3 mg/dL (0.2-0.8); Bilirubin Total 0.5 mg/dL (0.2-1.0); Magnesium 2.2 mg/dL (1.6-2.4); Protein, Total 7.5 g/dL (6.4-8.2)
[2022-10-10 11:59] LABS: Troponin High Sensitivity 240.1 pg/mL (<58.9)
[2022-10-10] MEDS ORDERED: IPRATROPIUM BROM 0.5MG/2.5ML ONE (12:06)
[2022-10-10] MEDS ORDERED: LEVALBUTEROL 1.25 MG/3 ML NEB ONE ×2 (12:06→12:07)
[2022-10-10] MEDS ORDERED: NA CHLORIDE 0.9% 100 ML ONE (12:08)
[2022-10-10] MEDS ORDERED: Meropenem 1000 MG/VIAL IV ONE (12:08)
--- NOTE | 2022-10-10 12:18 | EDPHYS ---
Physician Documentation [facility] Name: Erika Sharif Age: 82 yrs Sex: Male : 1940 Arrival Date: 10/10/2022 Time: 10:29 Bed 19 Private MD: JUANA Physician Vini Crump HPI: 10/10 10:42 This 82 yrs old Male presents to ER via Unassigned with complaints of abd eulalio pain , weak and sob. 10:42 The patient presents with decreased range of motion, pain, swelling. The complaints eulalio affect the right leg and left leg. Context: The problem was sustained at home, resulted from an unknown cause. 10:43 Modifying factors: The symptoms are alleviated by nothing. the symptoms are aggravated eulalio by weight bearing. The patient has shortness of breath at rest, with light activity. Onset: The symptoms/episode began/occurred 3 day(s) ago. The patient presents with abdominal pain in the upper abdomen, in the lower abdomen, abdominal distention in the upper abdomen, in the lower abdomen. no bm x 3 maybe 4 days. Associated signs and symptoms: Pertinent positives: non-productive cough, dizziness. Severity of symptoms: At their worst the symptoms were moderate in the emergency department the symptoms are unchanged. Severity of pain: At its worst the pain was mild moderate in the emergency department the pain is unchanged. Historical: - Allergies: 10:34 zolpidem; eh3 - PMHx: 10:34 CHF; COPD; Diabetes - IDDM; Gout; kidney failure; Myocardial infarction; neuropathy; eh3 pleural effusion; - PSHx: 10:34 arm; back; Cholecystectomy; eh3 - Immunization history:: Adult Immunizations up to date. - Social history:: Smoking status: Patient reports the use of cigarette tobacco products, pipe. - Family history:: not pertinent. ROS: 10:43 Constitutional: Negative for fever, chills, and weight loss, Eyes: Negative for injury, eulalio pain, redness, and discharge, ENT: Negative for injury, pain, and discharge, Neck: Negative for injury, pain, and swelling, Cardiovascular: Negative for chest pain, palpitations, and edema, Back: Negative for injury and pain, : Negative for injury, bleeding, discharge, and swelling, Skin: Negative for injury, rash, and discoloration, Neuro: Negative for headache, weakness, numbness, tingling, and seizure. 10:43 Respiratory: Positive for cough, shortness of breath, at rest. 10:43 Abdomen/GI: Positive for abdominal pain, constipation, abdominal cramps, abdominal distension. 10:43 MS/extremity: Positive for decreased range of motion, erythema, pain, swelling, tenderness. Exam: 10:43 Constitutional: This is a well developed, well nourished patient who is awake, alert, eulalio and in no acute distress. Head/Face: Normocephalic, atraumatic. Eyes: Pupils equal round and reactive to light, extra-ocular motions intact. Lids and lashes normal. Conjunctiva and sclera are non-icteric and not injected. Cornea within normal limits. Periorbital areas with no swelling, redness, or edema. ENT: Nares patent. No nasal discharge, no septal abnormalities noted. Tympanic membranes are normal and external auditory canals are clear. Oropharynx with no redness, swelling, or masses, exudates, or evidence of obstruction, uvula midline. Mucous membranes moist. Neck: Trachea midline, no thyromegaly or masses palpated, and no cervical lymphadenopathy. Supple, full range of motion without nuchal rigidity, or vertebral point tenderness. No Meningismus. Chest/axilla: Normal chest wall appearance and motion. Nontender with no deformity. No lesions are appreciated. Back: No spinal tenderness. No costovertebral tenderness. Full range of motion. Male : Normal genitalia with no discharge or lesions. Skin: Warm, dry with normal turgor. Normal color with no rashes, no lesions, and no evidence of cellulitis. Neuro: Awake and alert, GCS 15, oriented to person, place, time, and situation. Cranial nerves II-XII grossly intact. Motor strength 5/5 in all extremities. Sensory grossly intact. Cerebellar exam normal. Normal gait. Psych: Awake, alert, with orientation to person, place and time. Behavior, mood, and affect are within normal limits. 10:43 Cardiovascular: Rate: tachycardic, actual rate is 101 bpm, Rhythm: Pulses: Pulses are 4+ in bilateral radial, brachial, femoral, popliteal, posterior tibial and and dorsalis pedis arteries.. Heart sounds: normal, Edema: 3+ edema to level of left midcalf and right midcalf, JVD: is noted bilaterally, to 1 cm. 10:43 ECG was reviewed by the Attending Physician. Vital Signs: 10:39 BP 135 / 53; Pulse 95; Resp 18; Pulse Ox 97% on 3 lpm NC; ss 11:00 BP 147 / 81; Pulse 91; Resp 17; Pulse Ox 97% on 3 lpm NC; ss 12:30 BP 157 / 86; Pulse 89; Resp 18; Pulse Ox 97% on 3 lpm NC; ss 13:11 Weight 155.58 kg; eh3 13:37 BP 130 / 71; Pulse 91; Resp 18; Pulse Ox 96% on 3 lpm NC; ss 14:00 BP 170 / 89; Pulse 95; Resp 18; Pulse Ox 95% on 3 lpm NC; ss MDM: 10:35 Patient medically screened. eulalio 10:48 Differential diagnosis: contusion, Anemia asthma, Bronchitis CHF exacerbation, Chronic eulalio Obstructive Pulmonary Disease Myocardial Infarction pneumonia. Antibiotic administration: merrem. Differential Diagnosis altered mental status, sepsis, flu. Immunization status: Pneumococcal vaccine: within last 5 years. Influenza vaccine: within last 5 years. Data reviewed: vital signs, nurses notes, lab test result(s), EKG, radiologic studies, CT scan, plain films. Consideration of Admission/Observation Escalation of care including admission/observation considered. I considered the following discharge prescriptions or medication management in the emergency department Medications were administered in the Emergency Department. See MAR. Independent interpretation of the following test(s) in the Emergency Department EKG: See my EKG interpretation above. Test considered but Not performed: CT: no ct angio chest. Care significantly affected by the following chronic conditions: Diabetes, Hypertension, Congestive Heart Failure, Chronic Obstructive Pulmonary Disease, Obesity, Chronic Kidney Disease. Counseling: I had a detailed discussion with the patient and/or guardian regarding the historical points, exam findings, and any diagnostic results supporting the discharge/admit diagnosis, the presence of at least one elevated blood pressure reading (>120/80) during this emergency department visit, lab results, radiology results, the need for further work-up and treatment in the hospital. 10/10 10:38 Order name: Basic Metabolic Panel; Complete Time: 12:08 eulalio 10/10 10:38 Order name: CBC with Diff; Complete Time: 12: [facility] 10/10 10:38 Order name: LFT's; Complete Time: 12: [facility] 10/10 10:38 Order name: Magnesium; Complete Time: 12:08 [facility] 10/10 10:38 Order name: NT PRO-BNP; Complete Time: 12:08 [facility] 10/10 10:38 Order name: PT-INR; Complete Time: 12:08 [facility] 10/10 10:38 Order name: Troponin HS; Complete Time: 12:08 [facility] 10/10 10:38 Order name: Lipase; Complete Time: 12:08 [facility] 10/10 10:38 Order name: Blood Culture Adult (2) [facility] 10/10 10:38 Order name: Lactate w/ 2H reflex if indic.; Complete Time: 12:08 [facility] 10/10 10:38 Order name: Urinalysis w/ reflexes; Complete Time: 12:08 [facility] 10/10 10:38 Order name: Flu; Complete Time: 12:08 [facility] 10/10 10:38 Order name: SARS RAPID; Complete Time: 12:08 [facility] 10/10 11:48 Order name: Urine Culture EDSD 10/10 15:25 Order name: Lactate Sepsis 2 HR Follow-up [facility] 10/10 10:38 Order name: XRAY Chest (1 view); Complete Time: 12:08 [facility] 10/10 10:50 Order name: US Extremity Venous W Compression Trevon; Complete Time: 12:19 [facility] 10/10 13:19 Order name: Chest Abd Pelvis Wo Con EDSD 10/10 10:38 Order name: EKG; Complete Time: 10:38 [facility] 10/10 10:38 Order name: Cardiac monitoring; Complete Time: 11:08 [facility] 10/10 10:38 Order name: EKG - Nurse/Tech; Complete Time: 11:08 [facility] 10/10 10:38 Order name: IV Saline Lock; Complete Time: 11: [facility] 10/10 10:38 Order name: Labs collected and sent; Complete Time: 11:27 [facility] 10/10 10:38 Order name: O2 Per Protocol; Complete Time: 11:08 [facility] 10/10 10:38 Order name: O2 Sat Monitoring; Complete Time: 11:08 [facility] 10/10 10:50 Order name: IV Saline Lock - Large Bore; Complete Time: 11:27 [facility] EC:43 Rate is 101 beats/min. Rhythm is regular. QRS Victoria is Normal. NM interval is normal. [facility] QRS interval is normal. QT interval is normal. No Q waves. T waves are Normal. No ST changes noted. Clinical impression: NSR w/ Non-specific ST/T Changes and No evidence of ischemia. Interpreted by me. Reviewed by me. Administered Medications: 11:30 Drug: NS 0.9% IV 1000 ml Route: IV; Rate: 125 ml/hr; Site: right antecubital; eh3 15:27 Follow up: IV Status: Infusion continued upon transfer; IV Intake: 600ml eh3 11:30 Drug: morphine IVP or IV 2 mg Route: IVP; Infused Over: 4 mins; Site: right antecubital;eh3 15:26 Follow up: Response: No adverse reaction eh3 11:30 Drug: Ondansetron IVP 4 mg Route: IVP; Site: right antecubital; eh3 15:26 Follow up: Response: No adverse reaction eh3 11:30 Drug: Famotidine IVP 20 mg Route: IVP; Site: right antecubital; eh3 15:26 Follow up: Response: No adverse reaction eh3 11:30 Drug: Solu-CORTEF IVP 100 mg Route: IVP; Site: right antecubital; eh3 15:26 Follow up: Response: No adverse reaction eh3 11:30 Drug: Levalbuterol Inhalation 1.25 mg Route: Inhalation; eh3 15:25 Follow up: Response: No adverse reaction eh3 11:30 Drug: Ipratropium Inhalation Aerosol 0.5 mg Route: Inhalation; eh3 15:25 Follow up: Response: No adverse reaction eh3 11:38 Drug: Meropenem IV 1 grams Route: IV; Rate: per protocol; Site: right antecubital; eh3 15:26 Follow up: Response: No adverse reaction; IV Status: Completed infusion; IV Intake: eh3 100ml 12:37 Drug: Levalbuterol Inhalation 1.25 mg Route: Inhalation; eh3 15:25 Follow up: Response: No adverse reaction eh3 13:15 Drug: NS 0.9% IV 500 ml Route: IV; Rate: bolus; Site: right antecubital; eh3 15:25 Follow up: IV Status: Completed infusion; IV Intake: 500ml eh3 13:15 Drug: Clopidogrel PO 75 mg Route: PO; eh3 15:24 Follow up: Response: No adverse reaction eh3 14:00 Drug: Lactulose PO 30 grams Volume: 45 ml; Route: PO; 3 15:27 Follow up: Response: No adverse reaction eh3 14:00 Drug: Dulcolax NM Suppository 10 mg Route: NM; eh3 15:26 Follow up: Response: No adverse reaction 3 14:00 Drug: Aspirin PO Chewable Tablet 162 mg Route: PO; eh3 15:24 Follow up: Response: No adverse reaction eh3 15:24 Not Given (Patient Refused): morphine IVP or IV 2 mg IVP once over 4 mins eh3 15:24 Not Given (Patient Refused): morphine IVP or IV 2 mg IVP once over 4 mins eh3 15:25 Not Given (Other Intervention Used): Insulin Glargine Sub-Q 25 units Sub-Q once eh3 Disposition Summary: 10/10/22 12:17 Transfer Ordered Transfer Location: Other Acute Care Facility eulalio Reason: Higher level of care eulalio Condition: Stable eulalio Problem: new eulalio Symptoms: have improved eulalio Accepting Physician: TO [facility](10/10/22 15:29) eh3 Diagnosis - Dyspnea eulalio - Non ST elevation MT eulalio - COPD/ Chronic obstructive pulmonary disease, unspecified eulalio - Edema, unspecified eulalio - Obesity, unspecified eulalio - Other acute kidney failure - ON CHRONIC eulalio - Type 1 diabetes mellitus with hyperglycemia eulalio - UTI/ Urinary tract infection, site not specified eulalio Forms: - Medication Reconciliation Form eulalio - SBAR form eulalio Signatures: Dispatcher [employer] EDVini Lawrence MD MD cha Hall, Erin, RN RN eh3 Corrections: (The following items were deleted from the chart) 10:49 10:39 Abdomen Pelvis W Con+CT.RAD.BRZ ordered. EDMS EDMS 12:18 12:17 TO [facility] eulalio eulalio 12:18 12:18 TO [facility] eulalio eulalio 13:19 10:39 Thorax Wo Con+CT.RAD.BRZ ordered. EDMS EDMS 13:26 10:49 Abdomen ordered. EDMS EDMS 13:52 12:18 TO [facility] eulalio eulalio 15:29 13:52 TO [facility] eulalio eh3
--- NOTE | 2022-10-10 12:18 | ER ---
Nurse's Notes [facility] Name: Erika Sharif Age: 82 yrs Sex: Male : 1940 Arrival Date: 10/10/2022 Time: 10:29 Bed 19 Private MD: Diagnosis: Dyspnea;Non ST elevation NC;COPD/ Chronic obstructive pulmonary disease, unspecified;Edema, unspecified;Obesity, unspecified;Other acute kidney failure-ON CHRONIC;Type 1 diabetes mellitus with hyperglycemia;UTI/ Urinary tract infection, site not specified Presentation: 10/10 10:30 Chief complaint: EMS states: d/c from [facility] [place] yesterday after heart stent eh3 placement, pt c/o constipation and abd pain for 5 days and SOB since yesterday. Coronavirus screen: Vaccine status: Patient reports receiving the 2nd dose of the covid vaccine. Ebola Screen: No symptoms or risks identified at this time. Risk Assessment: Do you want to hurt yourself or someone else? Patient reports no desire to harm self or others. Onset of symptoms was October 10, 2022. 10:30 Method Of Arrival: EMS: [facility] 3 10:30 Acuity: PEEWEE 2 eh3 10:30 Initial Sepsis Screen: Does the patient meet any 2 criteria? RR > 20 per min. HR > 90 eh3 bpm. Yes Does the patient have a suspected source of infection? No. Patient's initial sepsis screen is negative. Triage Assessment: 10:30 General: Appears in no apparent distress. uncomfortable, Behavior is calm, cooperative, eh3 appropriate for age. Pain: Complains of pain in abdomen and left leg and right leg. Neuro: Level of Consciousness is awake, alert, obeys commands, Oriented to person, place, time, situation. Cardiovascular: Capillary refill < 3 seconds Patient's skin is warm and dry. Edema is 2+ to left midcalf, left ankle, right midcalf and right ankle. Respiratory: Reports shortness of breath at rest Airway is patent Respiratory effort is even, labored, Respiratory pattern is regular, symmetrical. GI: Abdomen is round. : Atwood in place to gravity drainage. Derm: Skin is pink, warm \T\ dry. Musculoskeletal: Circulation, motion, and sensation intact. Historical: - Allergies: 10:34 zolpidem; eh3 - PMHx: 10:34 CHF; COPD; Diabetes - IDDM; Gout; kidney failure; Myocardial infarction; neuropathy; eh3 pleural effusion; - PSHx: 10:34 arm; back; Cholecystectomy; eh3 - Immunization history:: Adult Immunizations up to date. - Social history:: Smoking status: Patient reports the use of cigarette tobacco products, pipe. - Family history:: not pertinent. Screenin:30 [facility] ED Fall Risk Assessment (Adult) Score/Fall Risk Level 0 - 2 = Low Risk. Abuse eh3 screen: Denies threats or abuse. Denies injuries from another. Nutritional screening: No deficits noted. Tuberculosis screening: No symptoms or risk factors identified. Assessment: 10:30 Reassessment: No changes from previously documented assessment. See triage assessment. eh3 11:30 Reassessment: Patient appears in no apparent distress at this time. Patient and/or eh3 family updated on plan of care and expected duration. Pain level reassessed. Patient is alert, oriented x 3, labored respirations, skin warm/dry/pink. 11:58 Reassessment: Dr. Crump notified of critical lab value. LAC 4.1. ss 12:30 Reassessment: Patient appears in no apparent distress at this time. Patient and/or eh3 family updated on plan of care and expected duration. Pain level reassessed. Patient is alert, oriented x 3, labored respirations, skin warm/dry/pink. 13:30 Reassessment: Patient appears in no apparent distress at this time. Patient and/or eh3 family updated on plan of care and expected duration. Pain level reassessed. Patient is alert, oriented x 3, labored respirations, skin warm/dry/pink. 14:30 Reassessment: Patient appears in no apparent distress at this time. Patient and/or eh3 family updated on plan of care and expected duration. Pain level reassessed. Patient is alert, oriented x 3, labored respirations, skin warm/dry/pink. 14:55 Reassessment: Nurse to nurse report received by KAMI Haile at [facility]. 3 Vital Signs: 10:39 BP 135 / 53; Pulse 95; Resp 18; Pulse Ox 97% on 3 lpm NC; ss 11:00 BP 147 / 81; Pulse 91; Resp 17; Pulse Ox 97% on 3 lpm NC; ss 12:30 BP 157 / 86; Pulse 89; Resp 18; Pulse Ox 97% on 3 lpm NC; ss 13:11 Weight 155.58 kg; eh3 13:37 BP 130 / 71; Pulse 91; Resp 18; Pulse Ox 96% on 3 lpm NC; ss 14:00 BP 170 / 89; Pulse 95; Resp 18; Pulse Ox 95% on 3 lpm NC; ss ED Course: 10:30 Inserted saline lock: 18 gauge in right antecubital area, using aseptic technique. eh3 Blood collected. 10:30 Arm band placed on. eh3 10:30 Patient has correct armband on for positive identification. Placed in gown. Bed in low eh3 position. Call light in reach. Side rails up X2. Adult w/ patient. Provided Education on: Use of call ortega. Client placed on continuous cardiac and pulse oximetry monitoring. NIBP monitoring applied. Warm blanket given. Pillow given. 10:34 Patient arrived in ED. eh3 10:35 Vini Crump MD is Attending Physician. eulalio 11:08 SARS RAPID Sent. eh3 11:08 Flu Sent. eh3 11:27 Lisa Ba, KAMI is Primary Nurse. eh3 11:29 XRAY Chest (1 view) In Process Unspecified. EDMS 12:07 US Extremity Venous W Compression Trevon In Process Unspecified. EDMS 12:21 Initiated patient transfer with Niru at [facility] transfer center. mb4 13:42 Chest Abd Pelvis Wo Con In Process Unspecified. EDMS 14:31 Triage completed. eh3 14:55 No provider procedures requiring assistance completed. Patient transferred, IV remains eh3 in place. Administered Medications: 11:30 Drug: NS 0.9% IV 1000 ml Route: IV; Rate: 125 ml/hr; Site: right antecubital; eh3 15:27 Follow up: IV Status: Infusion continued upon transfer; IV Intake: 600ml eh3 11:30 Drug: morphine IVP or IV 2 mg Route: IVP; Infused Over: 4 mins; Site: right antecubital;eh3 15:26 Follow up: Response: No adverse reaction eh3 11:30 Drug: Ondansetron IVP 4 mg Route: IVP; Site: right antecubital; eh3 15:26 Follow up: Response: No adverse reaction eh3 11:30 Drug: Famotidine IVP 20 mg Route: IVP; Site: right antecubital; eh3 15:26 Follow up: Response: No adverse reaction eh3 11:30 Drug: Solu-CORTEF IVP 100 mg Route: IVP; Site: right antecubital; eh3 15:26 Follow up: Response: No adverse reaction eh3 11:30 Drug: Levalbuterol Inhalation 1.25 mg Route: Inhalation; eh3 15:25 Follow up: Response: No adverse reaction eh3 11:30 Drug: Ipratropium Inhalation Aerosol 0.5 mg Route: Inhalation; eh3 15:25 Follow up: Response: No adverse reaction eh3 11:38 Drug: Meropenem IV 1 grams Route: IV; Rate: per protocol; Site: right antecubital; eh3 15:26 Follow up: Response: No adverse reaction; IV Status: Completed infusion; IV Intake: eh3 100ml 12:37 Drug: Levalbuterol Inhalation 1.25 mg Route: Inhalation; eh3 15:25 Follow up: Response: No adverse reaction eh3 13:15 Drug: NS 0.9% IV 500 ml Route: IV; Rate: bolus; Site: right antecubital; eh3 15:25 Follow up: IV Status: Completed infusion; IV Intake: 500ml eh3 13:15 Drug: Clopidogrel PO 75 mg Route: PO; eh3 15:24 Follow up: Response: No adverse reaction eh3 14:00 Drug: Lactulose PO 30 grams Volume: 45 ml; Route: PO; eh3 15:27 Follow up: Response: No adverse reaction eh3 14:00 Drug: Dulcolax AK Suppository 10 mg Route: AK; eh3 15:26 Follow up: Response: No adverse reaction eh3 14:00 Drug: Aspirin PO Chewable Tablet 162 mg Route: PO; eh3 15:24 Follow up: Response: No adverse reaction eh3 15:24 Not Given (Patient Refused): morphine IVP or IV 2 mg IVP once over 4 mins eh3 15:24 Not Given (Patient Refused): morphine IVP or IV 2 mg IVP once over 4 mins eh3 15:25 Not Given (Other Intervention Used): Insulin Glargine Sub-Q 25 units Sub-Q once eh3 Medication: 14:55 VIS not applicable for this client. eh3 Intake: 15:25 IV: 500ml; Total: 500ml. 3 15:26 IV: 100ml; Total: 600ml. 3 15:27 IV: 600ml; Total: 1200ml. 3 Outcome: 12:17 ER care complete, transfer ordered by . eulalio 15:28 Transferred by ground EMS to other acute care facility: [facility]. Transfer form 3 completed. 15:28 Condition: stable 15:28 Instructed on the need for transfer. 15:29 Patient left the ED. 3 Addendum: 10/11/2022 17:54 Addendum: Other Insulin Regular Human 6 units IVP administered at 1315 on 10/10/2022, e h3 Heparin bolus 5000 units administered at 1355 on 10/10/2022, Heparin (NC Drip) administered at 1000 units/hr at 1355 on 10/10/2022, heparin infusion continued upon transfer. 17:58 Addendum: Other I agree with the above addendum. Regular Insulin 6 units IVP and s s Heparin drip which was continued upon transfer. Signatures: Dispatcher [employer] EDMS Vini Crump MD MD cha Blanchard, Shelby, RN RN More Neves mb4 Lisa Ba RN RN 3 Corrections: (The following items were deleted from the chart) 10/10 13:59 13:15 morphine IVP or IV 2 mg IVP in right antecubital over 4 mins 3 3
--- NOTE | 2022-10-10 12:18 | RAD REPORT ---
EXAM DESCRIPTION: US - Extrem Venous W Compress Trevon - 10/10/2022 12:06 pm CLINICAL HISTORY: Pain;Swelling COMPARISON: Extrem Venous W Compress Trveon dated 09/28/2022 TECHNIQUE: Real-time sonographic evaluation of the lower extremity deep venous systems was performed using color Doppler, grayscale, and compression. FINDINGS: Bilateral lower extremities. Normal compressibility, flow augmentation, phasic flow and spontaneous flow is identified in both the left and right lower extremity deep venous systems. No intraluminal filling defects seen. IMPRESSION: No DVT in either lower extremity.
[2022-10-10] MEDS ORDERED: HEPARIN 5000 UNIT/ML 1 ML VIAL ONE (13:26)
[2022-10-10] MEDS ORDERED: NA CHLORIDE 0.9% 500 ML ONE (13:27)
[2022-10-10] MEDS ORDERED: ASPIRIN EC 81 MG TAB PO ONE (13:27)
[2022-10-10] MEDS ORDERED: HEPARIN/D5W 25,000 UNIT/500 ML BAG IV ONE (13:27)
[2022-10-10] MEDS ORDERED: CLOPIDOGREL 75 MG TABLET ONE (13:27)
[2022-10-10] MEDS ORDERED: INSULIN -REGULAR HUMAN 50 UNIT/0.5 ML ML ONE (13:29)
[2022-10-10] MEDS ORDERED: ASPIRIN 81 MG CHEWABLE TABLET ONE (14:18)
--- NOTE | 2022-10-10 14:34 | RAD REPORT ---
EXAM DESCRIPTION: CT - Chest Abd Pelvis Wo Con - 10/10/2022 1:41 pm CLINICAL HISTORY: Congestion;Dyspnea COMPARISON: Chest Abd Pelvis Wo Con dated 09/02/2022; CTANGIO CHEST FOR PE dated 05/23/2013 TECHNIQUE: Thin axial CT images of the chest, abdomen, and pelvis, performed without IV contrast. Mu ltiplanar reformats were generated and reviewed. . All CT scans are performed using dose optimization technique as appropriate and may include automated exposure control or mA/KV adjustment according to patient size. FINDINGS: The lungs are clear apart from mild platelike bibasilar atelectatic changes. .No pleural o r pericardial effusion.No intrathoracic adenopathy. The liver, spleen, pancreas, adrenal glands and right kidney are within normal limits. Status post ch olecystectomy. Atrophic changes of the left kidney. Limited evaluation of segments of the anterior abdominal wall and underlying bowel particularly along the right flank, due to large field of view. Colonic diverticulosis. No bowel obstruction, free air, free fluid or abscess. Normal appendix. No pathologic lymphadenopathy in the abdomen or pelvis. Fu siform ectasia of the distal abdominal aorta, measuring up to 3.4 cm in caliber. Bladder is decompressed with Atwood catheter in place. Apparent wall thickening anteriorly may relate to nondistention. No worrisome osseous finding. Multilevel Schmorl's node formation. IMPRESSION: No acute findings in the abdomen and pelvis allowing for limitation mentioned above. Incidental and stable findings as detailed above.
[2022-10-10 16:25] VITALS: BP 170/89; O2SAT 95
--- NOTE | 2022-10-13 18:08 | EKG ---
Test Date: 2022-10-10 Test Time: 10:40:50 Manager Channel: SHANON MEASUREMENT RESULTS: Intervals: Rate: 101 DC: 146 QRSD: 78 QT: 334 QTc: 433 [place]: P: 36 DC: 146 QRS: 28 T: 64 INTERPRETIVE STATEMENTS: Sinus tachycardia Low voltage QRS Nonspecific ST and T wave abnormality Abnormal ECG Compared to ECG 09/29/2022 18:28:25 Sinus rhythm no longer present Possible ischemia no longer present ST (T wave) deviation still present Electronically Signed On 10-13-22 18:00:12 CDT by Zurdo Garcia
== END 2022-10-10 15:29 ==
LOC: ER 10:29
DX: I21.4 Non-ST elevation (NSTEMI) myocardial infarction (principal); J44.9 Chronic obstructive pulmonary disease, unspecified; R60.9 Edema, unspecified; E66.9 Obesity, unspecified; N17.8 Other acute kidney failure; E10.65 Type 1 diabetes mellitus with hyperglycemia; N39.0 Urinary tract infection, site not specified; Z20.822 Contact with and (suspected) exposure to COVID-19; Z72.0 Tobacco use; Z88.8 Allergy status to other drugs, medicaments and biological substances
CPT/HCPCS: 96365; 93005; 87040 ×2; 87088; 85025; 81001; 87086; 80048; 36415; 83735; 85610; 80076; 83605 ×2; 84484; 83690; 83880; 87804 ×2; 71250; 74176; 71045; 93970; 96375; 99285; 96366; 87811; J1815; J1644; J7614 ×2; J7644; J2270 ×2; J2185; J1720; J2405; J7040; J7030